=== PATIENT | male | born 1945 | race Caucasian/White ===

== ENCOUNTER 2023-07-13 11:40 | Outpatient (OUT) | payer MEDICARE, OTHER, SELFPAY ==
--- NOTE | 2023-07-13 11:59 | US_ITS ---
[facility] [place] [id number] Patient Name: YONI RAMIREZ MRN: [id number] date: 1945 Sex: M Assigned Patient Location: RAD Current Patient Location: [facility] Accession/Order Number: [id number] Exam Date: 07/13/2023 12:00 Report Date: 07/13/2023 14:14 At the request of: NURA CHAVEZ Procedure: US venous doppler LE RT EXAMINATION: US venous doppler LE RT HISTORY: Edema Of Right Lower Extremity R60.0 COMPARISON: No relevant comparison available. FINDINGS: REGION: Right lower extremity THROMBI: None. COMPRESSIBILITY: Normal compressibility of deep veins. FLOW: Normal waveform and antegrade flow between 5 and 20 cm/s. OTHER: Subcutaneous edema within the distal lower extremity. Partial compressibility of superficial small saphenous vein due to chronic thrombus and calcifications. US/US venous doppler LE RT IMPRESSION: 1. No deep vein thrombus within the right lower extremity. Electronically authenticated by: MIKE LYNCH Date: 07/13/2023 14:14
== END 2023-07-13 11:41 | disposition home or self-care (01) ==
LOC: RAD 11:47
PROVIDERS: PCP Internal Medicine; Visit Provider Internal Medicine
DX: R60.0 Localized edema (principal)
CPT/HCPCS: 93971

== ENCOUNTER 2023-07-23 09:35 | Outpatient (OUT) | payer MEDICARE, OTHER, SELFPAY ==
--- NOTE | 2023-07-23 10:38 | CA_ITS ---
Patient: YONI RAMIREZ Exam Date: 07/23/2023 : 1945 Gender:M Ordering : DR Bro Guardado D.O. Admission #: [id number] Family : Order #: [id number] CLICK HERE TO VIEW EXAM ECHOCARDIOGRAM REPORT PROCEDURE: CA ECHO DOPPLER COMPLETE INDICATIONS: Essential hypertension, Edema right lower leg COMPARISON: None. DESCRIPTION: COMPLETE ECHOCARDIOGRAM Real-time transthoracic echocardiography with 2D, M-mode, spectral and color flow Doppler performed. QUALITY: Technical quality was good. LEFT VENTRICLE: Normal chamber size. Borderline left ventricular hypertrophy. LV EF: Global left ventricular systolic function is normal. Calculated left ventricular ejection fraction is 58%. DIASTOLIC: Diastolic function is indeterminate. ATRIAL SEPTUM: Inadequately seen. LEFT ATRIUM: Severe dilatation. RIGHT ATRIUM: Mild dilatation. RIGHT VENTRICLE: Normal chamber size. Normal right ventricular systolic function. TRICUSPID VALVE: Normal mobility and thickness. No stenosis with trivial regurgitation. No evidence of pulmonary hypertension. RVSP 23mmHg MITRAL VALVE: Normal mobility and thickness. No mitral valve prolapse. No evidence of mitral valve stenosis. Mild mitral annular calcification. Mild mitral regurgitation. AORTIC VALVE: Normal trileaflet appearance. Mildly calcified aortic valve. Normal leaflet mobility. No evidence of aortic valve stenosis. Trivial aortic regurgitation. AORTIC ROOT: Normal diameter and appearance. PULMONIC VALVE: Normal thickness and mobility. No stenosis. Mild regurgitation. PERICARDIUM: No evidence of pericardial effusion. IVC: Collapses with inspirations. Normal size. CONCLUSION: 1. Global left ventricular systolic function is normal; visually estimated ejection fraction is 55 to 60% 2. Borderline increased left ventricular wall thickness 3. Biatrial enlargement 4. The right ventricle is normal in size and systolic function 5. Diastolic function is indeterminate 6. Mild mitral regurgitation 7. Mild pulmonic regurgitation Adult Echocardiography Procedure Report Left Ventricle LVEDD (3.7 - 5.6 cm): 5.28 cm LVESD (2.2 - 4.0 cm): 3.72 cm LVIVS thickness (0.6 - 1.2 cm): 0.98 cm LVPW thickness (0.5 - 1.0 cm): 1.03 cm e': 0.09 m/s E - e': 10.08 LVOT Max Gradient: 2.99 mm[Hg] LVOT Area (cm2): 0.86 m/s Peak Velocity (LVOT): 0.86 m/s Mean Velocity (LVOT): 0.58 m/s LVOT Diameter 2.39 cm Left Ventricular Ejection Fraction: 57.50 % Left Atrium LA Volume Index (2D A2C): 56.78 ml/m2 Left Atrium Systolic Dimension: 3.99 cm Mitral Valve MV E to A Ratio: 1.27 Mitral Valve A-Wave Peak Velocity: 0.73 m/s Mitral Valve E-Wave Peak Velocity: 0.93 m/s Right Ventricle RV Internal Diastolic Dimension: 3.51 cm Aorta AO Root Diam: 3.37 cm Ascending Ao Diam: 3.39 cm Aortic Valve AoV Area (Peak Wang): 2.51 cm2, 2.51 cm2 AoV Area (VTI): 2.70 cm2, 2.70 cm2 Peak Velocity(Antegrade Flow): 1.54 m/s Peak Gradient(Antegrade Flow): 9.48 mm[Hg] Mean Velocity(Antegrade Flow): 1.01 m/s Mean Gradient(Antegrade Flow): 4.66 mm[Hg] Velocity Time Integral: 38.94 cm Tricuspid Valve Peak Velocity (Regurgitant Flow): 2.02 m/s, 2.25 m/s, 1.90 m/s Pulmonic Valve Mean Gradient: 3.12 mm[Hg] Mean Velocity: 0.85 m/s Peak Velocity: 1.12 m/s, 0.97 m/s Peak Gradient: 3.75 mm[Hg], 5.03 mm[Hg] Right Atrium Right Atrium Systolic Pressure: 62.07 ml, 62.07 ml Dictated by: Librado Garzon M.D. on 07/23/2023 at 15:35 Approved by: Librado Garzon M.D. on 07/23/2023 at 15:39
== END 2023-07-23 09:36 | disposition home or self-care (01) ==
LOC: CARD 09:36
PROVIDERS: PCP Internal Medicine; Visit Provider Internal Medicine
DX: I10 Essential (primary) hypertension (principal); R60.0 Localized edema; I34.0 Nonrheumatic mitral (valve) insufficiency; I37.1 Nonrheumatic pulmonary valve insufficiency
CPT/HCPCS: 93306

== ENCOUNTER 2023-07-24 09:26 | Outpatient (OUT) | payer MEDICARE, OTHER, SELFPAY ==
[2023-07-24 09:42] LABS: Basophils Percent Auto 0.6 % (0.2-2.0); Eosinophils Absolute Auto 0.2 10^3/uL (0.0-0.7); Eosinophils Percent Auto 3.8 % (0.9-7.0); Hematocrit 39.2 % (42.0-54.0); Hemoglobin 12.7 g/dL (14.0-18.0); Immature Granulocytes Abs Auto 0.01 10^3/uL (0.00-0.03); Immature Granulocytes Pct Auto 0.2 % (0.0-0.5); Lymphocytes Percent Auto 20.7 % (20.5-60.0); Mean Corpuscular HGB Conc 32.4 g/dL (29.9-35.2); Mean Corpuscular Hemoglobin 29.5 pg (25.9-34.0); Mean Platelet Volume 10.7 fL (9.5-13.5); Monocytes Absolute Auto 0.5 10^3/uL (0.3-0.8); Monocytes Percent Auto 9.4 % (1.7-12.0); Neutrophils Absolute Auto 3.3 10^3/uL (1.4-6.5); Neutrophils Percent Auto 65.3 % (43.0-75.0); Platelet Count 174 10^3/uL (150-450); Red Blood Count 4.31 10^6/uL (4.70-6.10); Red Cell Distribution Width 17.8 % (11.0-15.0)
[2023-07-24 10:13] LABS: Alanine Aminotransferase 21 U/L (16-63); Albumin Level 3.5 g/dL (3.4-5.0); Alkaline Phosphatase 113 U/L (46-116); Anion Gap 6.2; Aspartate Amino Transferase 11 U/L (15-37); BUN Creatinine Ratio 21.2; Bilirubin Total 0.6 mg/dL (0.2-1.0); Carbon Dioxide 33.3 mmol/L (21.0-32.0); Chloride 105 mmol/L (98-107); Estimated GFR (African America >60 (>=60); Estimated GFR (Non-African Ame >60 (>=60); Globulin 3.5 g/dL; Glucose 140 mg/dL (74-106); Potassium 3.5 mmol/L (3.5-5.1); Sodium 141 mmol/L (136-145); Thyroid Stimulating Hormone 1.717 uIU/mL (0.358-3.740)
[2023-07-24 11:54] LABS: Creatinine Urine Random 50.63 mg/dL (20.00-300.00); Microalbum Creatinine Ratio Ur 25.6 mg/g (0.0-29.9); Microalbumin Urine Random <1.3 mg/dL (<=30.0)
== END 2023-07-24 09:27 | disposition home or self-care (01) ==
LOC: LAB 09:27
PROVIDERS: PCP Internal Medicine; Visit Provider Internal Medicine
DX: I10 Essential (primary) hypertension (principal); G31.84 Mild cognitive impairment of uncertain or unknown etiology; C61 Malignant neoplasm of prostate; R60.0 Localized edema; R04.0 Epistaxis; Z79.899 Other long term (current) drug therapy
CPT/HCPCS: 36415; 80053; 82043; 82570; 83880; 84443; 85025

== ENCOUNTER 2023-10-03 07:52 | Outpatient (OUT) | payer MEDICARE, OTHER, SELFPAY ==
[2023-10-03 08:58] LABS: Percent Iron Saturation 20.9 %
[2023-10-03 09:24] LABS: Basophils Percent Auto 0.7 % (0.2-2.0); Eosinophils Absolute Auto 0.1 10^3/uL (0.0-0.7); Eosinophils Percent Auto 2.6 % (0.9-7.0); Hematocrit 40.6 % (42.0-54.0); Hemoglobin 13.1 g/dL (14.0-18.0); Immature Granulocytes Abs Auto 0.01 10^3/uL (0.00-0.03); Immature Granulocytes Pct Auto 0.2 % (0.0-0.5); Lymphocytes Absolute Auto 1.1 10^3/uL (1.2-3.8); Lymphocytes Percent Auto 24.6 % (20.5-60.0); Mean Corpuscular HGB Conc 32.3 g/dL (29.9-35.2); Mean Corpuscular Hemoglobin 30.3 pg (25.9-34.0); Mean Platelet Volume 11.2 fL (9.5-13.5); Monocytes Absolute Auto 0.5 10^3/uL (0.3-0.8); Monocytes Percent Auto 11.3 % (1.7-12.0); Neutrophils Absolute Auto 2.6 10^3/uL (1.4-6.5); Neutrophils Percent Auto 60.6 % (43.0-75.0); Platelet Count 185 10^3/uL (150-450); Red Blood Count 4.32 10^6/uL (4.70-6.10); Red Cell Distribution Width 16.4 % (11.0-15.0); White Blood Count 4.3 10^3/uL (4.0-11.0)
== END 2023-10-03 07:53 | disposition home or self-care (01) ==
LOC: LAB 07:53
PROVIDERS: PCP Internal Medicine; Visit Provider Internal Medicine
DX: D64.9 Anemia, unspecified (principal)
CPT/HCPCS: 36415; 82607; 82728; 82746; 83540; 83550; 85025

== ENCOUNTER 2024-01-30 14:17 | Outpatient (OUT) | payer MEDICARE, OTHER, SELFPAY ==
[2024-01-30 14:49] LABS: Basophils Percent Auto 0.8 % (0.2-2.0); Eosinophils Absolute Auto 0.2 10^3/uL (0.0-0.7); Eosinophils Percent Auto 3.2 % (0.9-7.0); Immature Granulocytes Abs Auto 0.01 10^3/uL (0.00-0.03); Immature Granulocytes Pct Auto 0.2 % (0.0-0.5); Lymphocytes Absolute Auto 1.1 10^3/uL (1.2-3.8); Lymphocytes Percent Auto 21.7 % (20.5-60.0); Mean Corpuscular HGB Conc 32.5 g/dL (29.9-35.2); Mean Corpuscular Hemoglobin 30.2 pg (25.9-34.0); Mean Corpuscular Volume 92.8 fL (80.0-94.0); Monocytes Absolute Auto 0.6 10^3/uL (0.3-0.8); Monocytes Percent Auto 11.9 % (1.7-12.0); Neutrophils Absolute Auto 3.1 10^3/uL (1.4-6.5); Neutrophils Percent Auto 62.2 % (43.0-75.0); Platelet Count 190 10^3/uL (150-450); Red Blood Count 4.31 10^6/uL (4.70-6.10); Red Cell Distribution Width 16.1 % (11.0-15.0); White Blood Count 4.9 10^3/uL (4.0-11.0)
== END 2024-01-30 14:18 | disposition home or self-care (01) ==
LOC: LAB 14:18
PROVIDERS: PCP Internal Medicine; Visit Provider Internal Medicine
DX: D64.9 Anemia, unspecified (principal)
CPT/HCPCS: 36415; 82728; 85025

== ENCOUNTER 2024-06-27 10:40 | Observation (INO) | payer MEDICARE, OTHER, SELFPAY ==
[2024-06-27] VITALS (14 sets, daily range): BP systolic 161–185; BP diastolic 76–81; PULSE 55–63; TEMP 36.4–36.6; O2SAT 92–98; BMI 30.8; BMI 31.9
--- NOTE | 2024-06-27 10:48 | XR_ITS ---
The [address] [address] Patient Name: YONI RAMIREZ MRN: [id number] date: 1945 Sex: M Assigned Patient Location: ER Current Patient Location: ED.MAIN Accession/Order Number: [id number] Exam Date: 06/27/2024 10:58 Report Date: 06/27/2024 11:41 At the request of: LAMBERT DAVE Procedure: XR chest 1V CHEST X-RAY HISTORY: Chest pain COMPARISON: None. TECHNIQUE: 1 view chest is submitted for review. FINDINGS: The lungs are adequately expanded without evidence for acute infiltrate or effusion. The cardiac silhouette is enlarged. Pulmonary vascularity is mildly prominent. Osseous structures do not demonstrate any acute abnormality. . . XR/XR chest 1V IMPRESSION: Cardiomegaly. Electronically authenticated by: CHINMAY POWELL Date: 06/27/2024 11:41
--- NOTE | 2024-06-27 10:48 | ECG_ITS ---
[facility] Test Date: 2024-06-27 Pat Name: YONI RAMIREZ Department: Room: - Gender: Male Electric [employer]: : 1945 Requested By: NURA CHAVEZ Order Number: [id number] Reading MD: NURA CHAVEZ Measurements Intervals [place] Rate: 58 P: 90 [place]: 214 QRS: -51 QRSD: 164 T: 64 QT: 470 QTc: 467 Interpretive Statements 1100 Sinus rhythm 2231 First degree AV block 2450 Right bundle branch block 2630 Left anterior fascicular block 5234 Left ventricular hypertrophy with repolarization abnormality 9150 abnormal ECG Findings consistent w/ trifascicular block (RBBB, LAFB, first degree AV block) Electronically Signed On 06-27-2024 18:28:40 EDT by NURA CHAVEZ
--- OUTSIDE RECORDS SUMMARY | 2024-06-27 10:56 | XMS_ITS | CCD ---
Author Organization [facility]ini[facility] Care Team Providers Care Orthopedic Surgeon Name Role Phone BRO CHAVEZ Primary Care Physician Bro Chavez DO Primary Care Provider Bro Chavez DO Primary Care Provider Bro Chavez DO Primary Care Provider Fish WHARTON, Radha Carmen Unavailable Bro Chavez Unavailable KATHY, DR LYMAN Admitting Unavailable KATHY, DR LYMAN Attending Unavailable KATHY, DR LYMAN Primary Care Unavailable KATHY, DR LYMAN Consulting Unavailable LIZZIE, DR CASSIDY Etienne Consulting Unavailable KATHY, DR LYMAN Admitting Unavailable KATHY, DR LYMAN Attending Unavailable KATHY, DR LYMAN Primary Care Unavailable LUMelchor ., RADHA Carmen Admitting Unavailable LUE ., RADHA Carmen Attending Unavailable KATHY, DR LYMAN Primary Care Unavailable LIZZIE, DR CASSIDY Etienne Consulting Unavailable LUMelchor ., RADHA Carmen Consulting Unavailable LUE ., RADHA Carmen Admitting Unavailable LUE ., RADHA Carmen Attending Unavailable KATHY, DR LYMAN Primary Care Unavailable ZIPITER, DR MIKE Rankin Consulting Unavailable LUE ., RADHA Carmen Consulting Unavailable KATHY, DR LYMAN Admitting Unavailable KATHY, DR LYMAN Attending Unavailable KATHY, DR LYMAN Primary Care Unavailable KATHY, DR LYMAN Consulting Unavailable DONATO BISHOP Admitting Unavailable DONATO BISHOP Attending Unavailable BRO CHAVEZ Primary Care Unavailable VANDANA HERNANDEZ Referring Unavaila ble BRO CHAVEZ Primary Care Unavailable BRO CHAVEZ Primary Care Unavailable ROSY HIGH Attending Unavailable DEBBIE ANDRE Attending Unavailable Bro Chavez DO Primary Care Provider BRO CHAVEZ Referring Unavailable DONATO BISHOP Attending Unavailable BRO CHAVEZ Primary Care Unavailable Aaliyah HERNANDEZ Attending Unavailable BRO CHAVEZ Primary Care Unavailable KATHY, BRO Roche Primary Care Unavailable KATHY, BRO Roche Primary Care Unavailable Aaliyah HERNANDEZ Attending Unavailable BRO CHAVEZ Primary Care Unavailable DONATO BISHOP Referring Unavailable BRO CHAVEZ Primary Care Unavailable DONATO BISHOP Referring Unavailable BRO CHAVEZ Primary Care Unavailable Radha Whitten Attending Unavailable Radha Whitten Attending Unavailable Radha Whitten Attending Unavailable Radha Whitten Attending Unavailable Allergies Allergy Classification Reported Allergen(s) Allergy Type Date of Onset Reaction(s) Facility (14 sources) Ciprofloxacin Drug Allergy 8 Unknown [employer] Other (1 source) No Known Medication Allergies; Translations: [No Known Medication Allergies] Propensity to adverse reactions (disorder) [facility] Repository Medications Current Medications Medication Drug Class(es) Dates Sig (Normalized) Sig (Original) allopurinol 300 mg oral tablet (20 sources) Xanthine Oxidase Inhibitor Start: 03-09-2024 Allopurinol Active 0 .ROUTE .COMPLEX March 09, 2024 3:50pm TAKE 1 TABLET DAILY Start: 04-22-2019 End: 03-09-2024 take 1 tablet by mouth once daily allopurinol 300 mg Tab 300 mg = 1 tab(s), Oral, Daily, Refills(s) 0 Start Date: 04/22/19 Status: Ordered Comment on above: Take 300 mg by mouth once daily. amLODIPine 5 mg oral tablet (20 sources) Dihydropyridine Calcium Channel Rachid Start: 03-09-2024 Amlodipine Active 0 .ROUTE .COMPLEX March 09, 2024 3:50pm TAKE 1 TABLET DAILY Start: 02-11-2024 End: 03-09-2024 take 5 mg by mouth once daily Amlodipine Discontinued 5 MG PO Daily February 11, 2024 12:00am March 09, 2024 3:50pm Start: 04-22-2019 take 1 tablet by sylwia th twice daily amLODIPine 5 mg Tab 5 mg = 1 tab(s), Oral, BID, Refills(s) 0 Start Date: 04/22/19 Status: Ordered Start: 04-22-2019 take 1 tablet by sylwia th once daily amLODIPine 5 mg Tab 5 mg = 1 tab(s), Oral, Daily, Refills(s) 0 Start Date: 04/22/19 Status: Ordered Comment on above: Take by mouth once d aily. Take by mouth two ti mes a day. aspirin 81 mg delayed release oral tablet (20 sources) Platelet Aggregation Inhibitor, Nonsteroidal Anti-inflammatory Drug Start: 02-11-2024 take 81 mg by mouth once daily Aspirin Active 81 MG PO Daily February 11, 2024 12:00am Start: 03-28-2022 aspirin 81 mg Chew Tab mg tab(s), Chewed, Daily, Refills(s) 0 Start Date: 03/28/22 Status: Ordered take 1 tablet by sylwia th once daily Aspirin 81 81 MG 1 tablet Orally Once a day Active Comment on above: Take 81 mg by mouth once daily. atorvastatin 20 mg oral tablet (20 sources) HMG-CoA Reductase Inhibitor Start: 03-09-2024 Atorvastatin Active 0 .ROUTE .COMPLEX 90 March 09, 2024 3:50pm TAKE 1 TABLET DAILY IN THE EVENING Start: 10-21-2019 End: 03-09-2024 take 20 mg by mouth once daily atorvastatin 20 mg, Ora l, Daily, Refills(s) 0 Start Date: 10/21/19 Status: Ordered Comment on above: Take 20 mg by mouth once daily. carvedilol 6.25 mg oral tablet (20 sources) alpha-Adrenergic Rachid, beta-Adrenergic Rachid Start: 03-09-2024 Carvedilol Active 0 .ROUTE .COMPLEX 180 March 09, 2024 3:50pm TAKE 1 TABLET TWICE A DAY WITH FOOD Start: 02-11-2024 End: 03-09-2024 take 6.25 mg by mouth twice daily Carvedilol Discontinued 6.25 MG PO Twice daily February 11, 2024 12:00am March 09, 2024 3:50pm Start: 01-04-2022 carvedilol (CO REG) 12.5 mg tablet 6.25 mg twice daily with meals. 0 01/04/2022 Active Start: 01-04-2022 carvedilol (CO REG) 6.25 mg tablet Start: 04-22-2019 take 1 tablet by sylwia th twice daily carvedilol 12.5 mg Tab 12.5 mg = 1 tab(s), Oral, BID, Refills(s) 0 Start Date: 04/22/19 Status: Ordered Comment on above: twice daily with mary ls. 6.25 mg twice daily with meals. gemtesa 75 mg tablet (4 sources) take 1 tablet by mouth every twenty-four hours Gemtesa 75 MG 1 tablet Orally Once a day for 90 days Active GEMTESA 75 mg tablet (6 sources) Start: 11-12-19 GEMTESA 75 mg tablet hydroCHLOROthiazide 25 mg / lisinopril 20 mg oral tablet (20 sources) Thiazide Diuretic, Angiotensin Converting Enzyme Inhibitor Start: 03-09-20 End: 03-11-20 Lisinopril-Hydr ochlorothiazide Active 0 .ROUTE .COMPLEX March 11, 2024 1:10pm TAKE 1 TABLET ONCE DAILY Start: 09-27-2021 End: 03-09-2024 take 1 tablet by mouth once daily hydrochlorothiazide-lisinopril 25 mg-20 mg Tab tab(s), Oral, Daily, Refill(s) 0 Start Date: 09/27/21 Status: Ordered Comment on above: Take 1 tablet by sylwia th once daily. ketoconazole 20 mg/ml topical cream (17 sources) Azole Antifungal Start: 06-29-2021 ketoconazole (NIZORAL) 2 % cream Apply to affected area twice daily. 30 g 1 06/29/2021 Active Comment on above: Apply to affected ar ea twice daily. lisinopril 10 mg oral tablet (20 sources) Angiotensin Converting Enzyme Inhibitor Start: 03-09-2024 Lisinopril Active 0 .ROUTE .COMPLEX March 09, 2024 3:50pm TAKE 1 TABLET DAILY - TAKE ALONG WITH LISINOPRIL/HCTZ Start: 03-28-2022 End: 03-09-2024 take 10 mg by mouth once daily Lisinopril Discontinued 10 MG PO Daily February 11, 2024 12:00am March 09, 2024 3:50pm along with Lisinopril/HCTZ Start: 03-28-2022 lisinopril (ZE STRIL) 10 mg tablet q 24 HR. 0 03/28/2022 Active Comment on above: Take 10 mg by mouth once daily. q 24 HR. 24 hr mirabegron 25 mg extended release oral tablet (1 source) beta3-Adrenergic Agonist Start: take 1 tablet by mouth once daily Myrbetriq 25 mg oral tablet, extended release 25 mg = 1 tab(s), Oral, Daily, # 30 tab(s), Refills(s) 11, Pharmacy: [facility] [id number], 177, cm, 11/08/22 11:01:00 EST, Height/Length Dosing, 114, kg, 11/08/22 11:00:00 EST, Weight Dosing Start Date: 11/08/22 Status: Ordered mupirocin 0.02 mg/mg topical ointment (20 sources) RNA Synthetase Inhibitor Antibacterial Start: End: Mupirocin Active 1 APPLIC TOPICAL Twice daily December 12, 2023 7:21pm Start: 07-13-2023 Mupirocin 2 % 1 application Nasal septum Twice a day for 10 days Jun, Active paxlovid (300/100) 20 x 150 mg & 10 x 100mg tablet therapy pack (6 sources) Start: 08-22-2023 take 3 tablets by mouth every twelve hours Paxlovid (300/100) 20 x 150 MG & 10 x 100MG 3 tablets Orally twice a day for 5 days Aug, Active predniSONE 20 mg oral tablet (20 sources) Start: 02-05-2023 take 1 tablet by mouth twice daily predniSONE 20 MG 1 tablet Orally twice daily w/ food for 5 days Jan, Active triamcinolone acetonide 1 mg/ml topical cream (20 sources) Corticosteroid Start: 07-13-2023 Triamcinolone Acetonide 0.1 % 1 application Externally bid for 10 days Jun, Active Start: 07-13-2023 Triamcinolone Acetonide 0.1 % 1 application Externally bid for 10 days Jun, Active Start: 07-13-2023 Kenalog-40 Jun, 60 mg Triamcinolone Ac etonide 0.5 % 1 application Externally Twice a day Active Vibegron (2 sources) Start: 02-11-2024 take 75 mg by mouth once daily Vibegron Active 75 MG PO Daily February 11, 2024 12:00am vibegron 75 MG Oral Tablet [Gemtesa] (2 sources) Start: 08-15-2023 take 1 tablet by mouth once daily Gemtesa 75 mg oral tablet 75 mg = 1 tab(s), Oral, Daily, # 30 tab(s), Refills(s) 11, Pharmacy: [facility] [id number], 177, cm, 08/15/23 8:49:00 EDT, Height/Length Dosing, 99, kg, 08/15/23 8:49:00 EDT, Weight Dosing Start Date: 08/15/23 Status: Ordered zolpidem tartrate 5 mg oral tablet (9 sources) gamma-Aminobutyr ic Acid-ergic Agonist Start: 04-19-2021 take 1 mg by mouth once daily at bedtime zolpidem 5 mg Tab mg tab(s), Oral, Once a day (at bedtime), Refills(s) 0 Start Date: 04/19/21 Status: Ordered {20 (nirmatrelvir 150 MG Oral Tablet) / 10 (ritonavir 100 MG Oral Tablet) } Pack [Paxlovid 5-Day] (1 source) Start: 08-22-2023 take 3 tablets by mouth every twelve hours Paxlovid (300/100) 20 x 150 MG & 10 x 100MG 3 tablets Orally twice a day for 5 days Aug, Active Completed/Discontinued Medications Medication Drug Class(es) Dates Sig (Normalized) Sig (Original) acetaminophen 325 mg oral tablet (6 sources) Start: 03-02-2023 End: 04-07-2024 take 2 tablets by mouth every six hours as needed acetaminophen (TYLENOL) 325 mg tablet Take 2 tablets by mouth every 6 hours as needed for pain. 0 03/02/2023 04/07/2024 Discontinued Comment on above: Take [address] [facility] every 6 hours as needed for pain. cefdinir 300 mg oral capsule (2 sources) Cephalosporin Antibacterial Start: 03-20-2023 End: 11-20-2023 take 1 capsule by mouth twice daily cefdinir (OMNICEF) 300 mg capsule Take 1 capsule by mouth twice daily. 10 capsule 0 03/20/2023 11/20/2023 Discontinued (Course of therapy completed) Comment on above: Take 1 capsule by [facility] twice daily. iv contrast (will be provided with radiology test) (1 source) Start: 11-09-2022 End: 11-10-2022 iv contrast (will be provided with radiology test) MRI ABD/PEL Inject, intravenously, once for 1 dose. No IV access, insert saline lock prior to the beginning of sedation, infusion, injection of imaging exam. Discontinue saline lock post exam. If Pt. has a central line or IVAD, may access for administration according to line specific nursing protocol. Once exam is complete flush line and de-access according to line specific nursing protocol in the MR contrast administration guidelines link. 1 Each 0 11/09/2022 11/10/2022 Comment on above: MRI ABD/PEL Inject, intravenously, once for 1 dose. No IV access, insert saline lock prior to the beginning of sedation, infusion, injection of imaging exam. Discontinue saline lock post exam. If Pt. has a central line or IVAD, may access for administration according to line specific nursing protocol. Once exam is complete flush line and de-access according to line specific nursing protocol in the MR contrast administration guidelines link. lactobacillus rhamnosus gg [id number] unt oral capsule (2 sources) Start: 03-02-2023 End: 11-20-2023 take 1 capsule by mouth once daily lactobacillus rhamnosus (CULTURELLE) 10 billion cell capsule Take 1 capsule by mouth once daily. 14 capsule 0 03/02/2023 11/20/2023 Discontinued (Discontinued by Patient) Comment on above: Take 1 capsule by mo ut once daily. 1.5 ml leuprolide acetate 30 mg/ml prefilled syringe (10 sources) Gonadotropin Releasing Hormone Receptor Agonist End: 02-14-2023 leuprolide, 6 month, (LUPRON DEPOT, 6 MONTH,) sykt IM syringe kit Inject intramuscularly as directed. 0 02/14/2023 Discontinued (Course of therapy completed) leuprolide, 6 mo nth, (LUPRON DEPOT, 6 MONTH,) sykt IM syringe kit Inject 45 mg intramuscularly as directed. 0 Active Comment on above: Inject 45 mg intramu scularly as directed. Inject intramuscular ly as directed. melatonin 3 mg oral tablet (3 sources) End: 11-20-19 take 1 tablet by mouth once daily at bedtime melatonin 3 mg tablet Take 3 mg by mouth daily at bedtime. 0 11/20/2023 Discontinued (Discontinued by Patient) Comment on above: Take 3 mg by mouth d aily at bedtime. Problems Active Problems Problem Classification Problem Date Documented Da te Episodic/Chronic Abdominal hernia (20 sources) Inguinal hernia; Translations: [Unilateral inguinal hernia, without obstruction or gangrene, not specified as recurrent] Onset: 11-08-2022 Resolved: 03-02-2023 Episodic Calculus of urinary tract (20 sources) History of calculus of kidney; Translations: [Personal history of urinary calculi] Onset: 03-28-2022 Episodic Cancer of prostate (20 sources) Malignant tumor of prostate; Translations: [Malignant neoplasm of prostate] Onset: 12-04-2022 Chronic Cancer of prostate (20 sources) Personal history of malignant neoplasm of prostate; Translations: [History of malignant neoplasm of prostate] Onset: 03-28-2022 Episodic Deficiency and other anemia (3 sources) Anemia, unspecified; Translations: [Anemia, unspecified] Episodic Deficiency and other anemia (2 sources) Anemia; Translations: [Anemia, unspecified] 01-29-2024 Episodic Delirium, dementia, and amnestic and other cognitive disorders (2 sources) Delirium due to known physiological condition Chronic Disorders of lipid metabolism (20 sources) Pure hypercholesterolemia ; Translations: [Familial hypercholesterolemia ] Chronic Essential hypertension (20 sources) Hypertensive disorder; Translations: [Essential hypertension] Onset: 02-14-2023 04-22-2019 Chronic Genitourinary symptoms and ill-defined conditions (20 sources) Mixed incontinence; Translations: [Incontinence] Onset: 03-28-2022 Chronic Genitourinary symptoms and ill-defined conditions (20 sources) Increased frequency of urination; Translations: [Urgent desire to urinate] 10-05-2020 Episodic Gout and other crystal arthropathies (20 sources) Gout; Translations: [Primary gout] Onset: 02-14-2023 04-22-2019 Chronic Headache; including migraine (20 sources) Muscular headache ; Translations: [Tension-type headache, unspecified, not intractable] Chronic Hyperplasia of prostate (12 sources) Benign prostatic hypertrophy with outflow obstruction 08-24-2020 Chronic Miscellaneous mental health disorders (20 sources) Primary insomnia; Translations: [Primary insomnia] Chronic Osteoarthritis (20 sources) Arthritis; Translations: [Osteoarthritis of right knee joint] 04-22-2019 Chronic Other aftercare (2 sources) Other [facility] (current) drug therapy Episodic Other and unspecified benign neoplasm (2 sources) Lipoma of spermatic cord; 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] Onset: 10-04-2022 Episodic Other diseases of kidney and ureters (12 sources) Cyst of kidney 09-14-2020 Episodic Other diseases of kidney and ureters (1 source) Urinary tract obstruction; Translations: [Other obstructive and reflux uropathy] Onset: 11-08-2022 Episodic Other diseases of veins and lymphatics (15 sources) Varicocele; Translations: [Scrotal varices] Onset: 10-04-2022 Episodic Other gastrointestinal disorders (4 sources) Swollen abdomen; Translations: [Other intra-abdominal and pelvic swelling, mass and lump] Onset: 11-08-2022 Episodic Other gastrointestinal disorders (10 sources) Groin mass 11-08-2022 Episodic Other gastrointestinal disorders (2 sources) Mass of left lower quadrant of abdomen; Translations: [Left lower quadrant abdominal swelling, mass and lump] Episodic Other gastrointestinal disorders (2 sources) Left lower quadrant abdominal swelling, mass and lump; Translations: [Left lower quadrant abdominal swelling, mass and lump] Onset: 12-04-2022 Episodic Other gastrointestinal disorders (2 sources) Personal history of other diseases of the digestive system Episodic Other hereditary and degenerative nervous system conditions (17 sources) Impaired cognition; Translations: [Mild cognitive impairment, so stated] 02-12-2024 Chronic Other hereditary and degenerative nervous system conditions (5 sources) Mild cognitive impairment, so stated; Translations: [Mild cognitive impairment, so stated] Chronic Other inflammatory condition of skin (2 sources) Pruritus, unspecified Episodic Other male genital disorders (20 sources) Scrotal mass; Translations: [Other specified disorders of the male genital organs] Episodic Other male genital disorders (5 sources) Other specified disorders of the male genital organs; Translations: [OTHER SPEC D/O MALE GENITAL ORGANS] Onset: 11-06-2022 Episodic Other non-traumatic joint disorders (20 sources) Arthralgia of the pelvic region and thigh; Translations: [Pain in left hip] Episodic Other non-traumatic joint disorders (2 sources) Effusion, right knee Episodic Other non-traumatic joint disorders (6 sources) Pain in right knee; Translations: [PAIN IN RIGHT KNEE] Onset: 02-21-2023 Episodic Other nutritional; endocrine; and metabolic disorders (1 source) Obese class II; Translations: [Body mass index (BMI) 36.0-36.9, adult] Onset: 11-08-2022 Chronic Other nutritional; endocrine; and metabolic disorders (20 sources) Body mass index 30+ - obesity; Translations: [Obesity, unspecified] 11-08-2022 Chronic Other nutritional; endocrine; and metabolic disorders (3 sources) Obesity, unspecified; Translations: [Obesity, unspecified] Chronic Other nutritional; endocrine; and metabolic disorders (9 sources) Obese class I; Translations: [Obesity, unspecified] Onset: 02-11-2023 Chronic Other nutritional; endocrine; and metabolic disorders (7 sources) Severe obesity; Translations: [Morbid (severe) obesity due to excess calories] Onset: 03-26-2023 03-26-2023 Chronic Other nutritional; endocrine; and metabolic disorders (1 source) Obesity; Translations: [Obesity, unspecified] 02-12-2024 Chronic Other screening for suspected conditions (not mental disorders or infectious disease) (12 sources) Raised prostate specific antigen 10-21-2020 Episodic Other upper respiratory disease (1 source) Seasonal allergic rhinitis; Translations: [Other seasonal allergic rhinitis] 04-09-2024 Chronic Other upper respiratory disease (2 sources) Epistaxis Episodic Residual codes; unclassified (20 sources) Obstructive sleep apnea syndrome; Translations: [Obstructive sleep apnea (adult) (pediatric)] Onset: 02-14-2023 Chronic Residual codes; unclassified (10 sources) Obstructive sleep apnea (adult) (pediatric); Translations: [Obstructive sleep apnea (adult)(pediatric)] Chronic Residual codes; unclassified (2 sources) Other specified postprocedural states Episodic Residual codes; unclassified (2 sources) Localized edema Episodic Residual codes; unclassified (1 source) History of hernia repair; Translations: [Other specified postprocedural states] 04-01-2024 Episodic Sprains and strains (1 source) Strain of unspecified muscle(s) and tendon(s) at lower leg level, right leg, initial encounter Episodic Transient cerebral ischemia (20 sources) Amaurosis fugax of right eye; Translations: [Amaurosis fugax] 02-10-2024 Chronic Past or Other Problems Problem Classification Problem Date Documented Date Episodic/Chronic Fluid and electrolyte disorders (5 sources) Hypokalemia; Translations: [Hypokalemia] Onset: 02-26-2023 Resolved: 03-02-2023 03-02-2023 Episodic Other diseases of veins and lymphatics (1 source) Scrotal varices; Translations: [SCROTAL VARICES] Onset: 10-14-2022 Episodic Other nervous system disorders (5 sources) Postoperative pain ; Translations: [Other acute postprocedural pain] Onset: 02-26-2023 Resolved: 03-02-2023 03-02-2023 Episodic Other nutritional; endocrine; and metabolic disorders (5 sources) Hypophosphatemia; Translations: [Other disorders of phosphorus metabolism] Onset: 02-26-2023 Resolved: 03-02-2023 03-02-2023 Chronic Viral infection (2 sources) COVID-19 Results Test Name Value Interpretation Reference Range Facility Urology Office/Clinic Noteon 06-04-2024 Urology Office/Clinic Note Urology Office/Clinic Note Chief Complaint Patient in office for 6 month f/u. HPI Staff Patient in office for 6 month follow up. Previous DX; mixed incontinence, personal hx of prostate cancer, hernia, inguinal mass & varicocele *Gemtesa 75mg qd therapy. PSA 05/08/23- <0.02 11/13/23 - <0.02 Patient could not provide a urine sample in office today. States things have been the same over the past several months. States he walks 2 miles a day and by the end of the walk his pad is wet, states he does not feel the wetness while walking, only once the walk is done. States he is wearing a pad and depends every day and has to change roughly 2 x a day. States he is still taking the Gemtesa as prescribed but is wanting to stop the medication as he does not feel it is helping him and the cost is around $239 a month. States he saw his PCP Dr. Chavez who states he is borderline anemic at this time. History of Present Illness Tests reviewed: reviewed UA I have reviewed the previous health record information and history for this patient from Dr. Whitten. I have reviewed and verified the staff HPI to be accurate for this encounter. Review of Systems PHQ Score Initial Depression Screen Score: 0 SCORE ROS - Provider Constitutional: denies weight loss, denies hot flashes. Eyes: denies eye problems. Gastrointestinal: denies nausea, denies vomiting. Cardiovascular: denies chest pain or angina. Integumentary: no dryness Musculoskeletal: denies musculoskeletal symptoms. ENMT: denies otolaryngeal symptoms. Respiratory: no shortness of breath. Heme/Lymph: denies easy bleeding tendency, denies easy bruising tendency. Psychiatric: no confusion, no anxiety. Genitourinary: See HPI. Physical Exam Vitals & Measurements HR: 56(Peripheral) BP: 142/78 HT: 70 in HT: 177 cm WT: 99 kg WT: 217.8 lb BMI: 31.6 General Appearance: alert, no distress, well nourished, well developed male. Assessment/Plan 78-year-old male prior Dr. Freedman patient with mixed urinary incontinence s/p RALP, EBRT presents for follow-up. LEESA 1 (3). Present with . 1. Mixed incontinence (N39.46: Mixed incontinence) PVR (cc): 11/28/23 - Complete 6 session of PFPT w/ FERNANDO, and then did 4 weeks of PFPT at home. Improvement reported during notes however patient declines current improvement. [1] Rx'd Myrbetriq 25mg qd in the past but was too expensive. Did not recall getting different Rx of Trospium 20mg qhs. Green clamp did not work/did not want to use. Previously discussed further w/u with cysto/uros but pt declined. [2] Pt unable to provide urine sample today. IPSS 13 (12). RESHMA > UUI. Has not noticed improvement with Gemtesa and paying $240 per month. Still leaking. Pad full. Leaks without sensory awareness. Does not recall if leakage started/worsened after surgery or radiation. Pt would like to d/c Gemtesa due to these factors. Again clarified the difference between tx options for RESHMA and UUI. Pt is not desirous of surgery however discussed how PFPT and surgery are treatments for RESHMA. Originally, Gemetsa improved his nighttime leakage and now he is leaking at night again. Regarding RESHMA: Re-discussed options of male sling and AUS. Risks/benefits/success rates discussed. Advised pt elevated risk of complications due to history of radiation, such as cuff erosion, continued leakage and need for revision surgeries in the future. Would refer to tertiary center given his complex surgical history. Pt wishes to think about options prior to electing referral. Pt elects 6 mos f/u. Follow up 6 mos or sooner if needed. Pt understands and agrees with plan. -Stop Gemtesa. -Pt to call if he would like referral to tertiary center for consideration of AUS. 2. 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 Underwent salvage radiation for rising PSA PSA: 05/08/23 - <0.02 11/13/23 - <0.02 Pt continues following with Dr. Hernandez who monitors PSA. -Cont f/u with Dr. Hernandez regarding prostate ca management. Follow-up With When Contact Information Fish WHARTON, Radha Tejada, URL, URO Additional Instructions: 6 mos Patient Education Artificial Urinary Sphincter Placement I, Belkys Figueroa, personally scribed for Dr. Whitten on 06/04/2024 09:22:59. . Documentation recorded by the scribe, Belkys Figueroa, accurately reflects the services(s) I performed and decisions made by me. Authenticated by Dr. Whitten on 06/04/2024 10:14:04. Problem List/Past Medical History Ongoing Arthritis BMI 36.0-36.9,adult BPH with urinary obstruction Gout Hernia, inguinal History of kidney stones Hypertension Inguinal mass Kidney stone Ma (more content not included)... Normal [facility] Comment on above: Result Comment: Elec tronically Signed By: Radha Whitten MD\.br\Date and Time Signed: 06/04/24 10:14 EDT\.br\Electronically Co-Signed By: Belkys Figueroa\.br\Date and Time Co-Signed: 06/04/24 09:23 EDT CNOVtimmy 05-20-2024 CNOV Office Visit ([facility] ) YONI RAMIREZ ([id number]) 1945 M Date Time Provider Department 05/20/24 1:15 PM Aaliyah HERNANDEZ During your visit today, we recorded the following information about you: Temperature Pulse Respiration Blood pressure 98.4 degrees 59/minute 18/minute 147/80 Weight 101 kg Aaliyah Hernandez MD 05/23/2024 10:46 AM Signed Radiation Oncology - Follow Up Note PATIENT NAME: Yoni Ramirez PATIENT DIAGNOSIS: Prostate adenocarcinoma, 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 INTERVAL HISTORY: Patient states he is doing fairly well. No significant new problems or concerns. He does have continued incontinence wearing pad x 2 daily stable. No hematuria. 05/15/23:He did undergo abdominal surgery in February with removal of previous implanted mesh and exploratory laparotomy and implantation of mesh for repair of femoral hernia with 2 contrast large femoral hernia with defect and containing large bowel. No evidence of malignancy and resected tissue. He has done very well subsequently. Denies of any problems. 12/12/22:Patient here for further follow-up regarding palpable lump left scrotal area. Patient had seen Dr. Whitten. Seeing patient shortly after this for routine follow-up recommended further imaging with MRI as patient was unclear what he wanted to do. Denies any new problems. MRI Pelvis 12/04/22: 1. No enhancing scrotal lesions. 2. 3.2 x 1.8 x 3.5 cm fatty lesion seen in the left scrotal sac laterally. Could reflect area of fat necrosis or spermatic cord lipoma. Could correlate with lesion seen on prior ultrasound. Recommend continued ultrasound follow-up to document stability. 3. Large inguinal hernias bilaterally, left greater than right with fat extending into the scrotum. Left hernia contains a loop of colon He underwent ultrasound 08/05/2022 with small left hydrocele no other significant finding. He underwent repeat ultrasound on 10/11/2022 with the finding of a solid vascular appearing mass in the left hemiscrotum measuring 2.6 x 2.9 x 1.6 cm. This is noted to be separate from the testicle. Small varicocele no hydrocele on the left. Further work-up including CT chest abdomen and pelvis on 11/06/2022 demonstrating: No suspicious chest findings. Nonobstructing left nephrolithiasis. Large left inguinal hernia with fat extending into the scrotum and along with the sigmoid colon extending to near the level of the scrotum, 3 cm area of density within the inguinal hernia suspicious for acute diverticulitis. This could also represent scarring from prior hernia repair. Large fat filled right inguinal hernia without strangulation or bowel involvement. No suspicious bony changes. Patient has seen Dr. Whitten the other day and underwent laboratory evaluation without remarkable findings. He is here today for routine follow-up. 07/13/22: Doing well. Is more active. Walking 1 to 2 miles daily starting to lose weight as a result. Feeling better. 03/30/22:Overall doing well. Still having urinary incontinence though mostly with increased activity. Having some intermittent diarrhea but mostly increased frequency and looser stools without blood or other issues. 12/21/21:Doing well. Overall urinary function has improved. Less incontinence. Incontinence he is having is mostly stress related. Recent colonoscopy without significant findings. 08/10/21:Doing well. Significant improvement in bladder and bowel frequency. Still with moderate fatigue. PSA HISTORY: PSA (ng/mL) Date Value 05/13/2024 <0.02 11/13/2023 <0.02 05/08/2023 <0.02 11/02/2022 <0.02 09/15/2021 <0.1 08/03/2021 <0.03 Initial post prostatectomy PSA 0.23 on 07/17/2018. Patient's PSA continued to rise: 0.48 on 04/22/2019 0.87 on 09/29/2019 1.43 on 03/19/2020 1.62 on 07/19/2020 2.05 on 09/27/2020 ALLERGIES No Known Allergies GEMTESA 75 mg tablet lisinopril (ZESTRIL) 10 mg tablet q 24 HR. carvedilol (COREG) 12.5 mg tablet 6.25 mg twice daily with meals. aspirin, enteric coated (ASPIRIN, ENTERIC COATED) 81 mg EC tablet Take 81 mg by mouth once daily. ketoconazole (NIZORAL) 2 % cream Apply to affected area twice daily. (Patient taking differently: Apply to affected area two times a day. As needed) amLODIPine (NORVASC) 5 mg tablet Take by mouth two times a day. lisinop (more content not included)... Normal [facility] PSA SerPl-ncon 05-13-2024 Prostate specific Ag [Mass/Vol] ng/mL Normal <2.60 [facility] Comment on above: Order Comment: Speci men Type: BLOOD SPECIMEN Ordering Facility: [facility] Address: [address] [place] [address] Result Comment: Tota l PSA test methodology used is the Electrochemiluminescence Immunoassay by [employer]. Total PSA values by differing methodologies cannot be interchanged. Performed By: #### 2 857-1 #### [facility] CLIA [id number] [address] [place] [address] [place] CNOVon 04-01-2024 [facility] Office Visit ([facility] ) YONI RAMIREZ ([id number]) 1945 M Date Time Provider Department 04/01/24 10:00 AM DONATO BISHOP [facility] During your visit today, we recorded the following information about you: Temperature Pulse Blood pressure 97 degrees 58/minute 162/67 Donato Bishop MD 04/07/2024 4:41 PM Signed [facility] Abdominal Core Health - Follow Up Visit Assessment/Plan: Yoni Ramirez is a 78 year old male s/p open left anterior groin mesh removal (plug and patch) and abdominal wall reconstruction with bilateral transversus abdominus release and 30 x 30 cm retrorectus Prolene mesh on 02/23/23 for a large recurrent left inguinal hernia, reducible right inguinal hernia, and incarcerated epigastric hernia. He was seen postoperatively 03/20/2023 and was recovering well. His hospital course was complicated by significant postoperative delirium. He is here today for a one year follow up. He looks and feels well with no evidence of recurrence on exam. CT images reviewed - repair intact with no evidence of recurrence. - 1 year follow up (no need for CT unless there is clinical concern) Subjective: Feeling great. No pain or activity restrictions. No issues with bowel function. Continues to have difficulty with urinary incontinence - longstanding issue for him Still can't remember the first week after surgery. Objective: No bulge in either groin or along the midline. Midline incision well-healed. Some fungal irritation in lower abdominal skin fold, right worse than left. Donato Bishop MD 04/01/24, 10:35 AM General Surgery [facility] Medical Decision Making: Problems: Low: Stable chronic illness Data: Unique test result(s) reviewed: 1 Independent interpretation of test from other physician/QHCP Risk: Low: Low risk from testing/treatment Medical Decision Making Level: 3 - Low Kristy Monreal OCCA 04/01/2024 10:05 AM Signed What is the reason for your visit today? s/p open left anterior groin mesh removal (plug and patch) and abdominal wall reconstruction with bilateral transversus abdominus release and 30 x 30 cm retrorectus Prolene mesh on 02/23/23 for a large recurrent left inguinal hernia, reducible right inguinal hernia, and incarcerated epigastric hernia. Who is your referring physician? Are you having poor oral intake? NO Have you had unintentional weight loss of 15 lbs/7 Kg in the last 3-6 months? NO Bowels: regular Wound: Temperature: No Drains: No Referring Provider: BRO CHAVEZ [[id number]] Allergies As of Date: 04/01/2024 (No Known Allergies) Date Reviewed: 04/01/2024 Reviewed by: Kristy Monreal OCCA - Fully Assessed Reason for Visit: Follow Up [171] Cmt: 1 year Primary Visit Diagnosis:S/P repair of ventral hernia [Z98.890, Z87.19] Prescriptions as of 04/07/2024 - GEMTESA 75 mg tablet - lisinopril (ZESTRIL) 10 mg tablet q 24 HR. - carvedilol (COREG) 12.5 mg tablet 6.25 mg twice daily with meals. - aspirin, enteric coated (ASPIRIN, ENTERIC COATED) 81 mg EC tablet Take 81 mg by mouth once daily. - ketoconazole (NIZORAL) 2 % cream Apply to affected area twice daily. - amLODIPine (NORVASC) 5 mg tablet Take by mouth two times a day. - lisinopril-hydroCHLOROthiazi de (PRINZIDE, ZESTORETIC) 20-25 mg per tablet Take 1 tablet by mouth once daily. - atorvastatin (LIPITOR) 20 mg tablet Take 20 mg by mouth once daily. - allopurinol (ZYLOPRIM) 300 mg tablet Take 300 mg by mouth once daily. Problem List As Of Date 04/01/2024 Noted Resolved Obesity, Class I, BMI 30-34.9 [E66.9] 02/11/2023 Obstructive sleep apnea syndrome [G47.33] 02/14/2023 Primary hypertension [I10] 02/14/2023 Prostate cancer (HCC) [C61] 02/14/2023 Gout [M10.9] 02/14/2023 Inguinal hernia of left side without obstructio*02/24/2023 03/02/2023 Hypophosphataemia [E83.39] 02/26/2023 03/02/2023 Hypokalemia [E87.6] 02/26/2023 03/02/2023 Post-op pain [G89.18] 02/26/2023 03/02/2023 Class 3 severe obesity due to excess calories w*03/26/2023 Visit Notes: >> Kristy Monreal OCCA [place] Apr 01, 2024 10:03 AM Status: Signed What is the reason for your visit today? s/p open left anterior groin mesh removal (plug and patch) and abdominal wall reconstruction with bilateral transversus abdominus release and 30 x 30 cm retrorectus Prolene mesh on 02/23/23 for a large recurrent left inguinal hernia, reducible right inguinal hernia, and incarcerated epigastric hernia. Who is your referring physician? Are you having poor oral intake? NO Have you had unintentional weight loss of 15 lbs/7 Kg in the last 3-6 months? NO Bowels: regular Wound: Temperature: No Drains: No Medications Discontinued During This Encounter Prescriptions - acetaminophen (TYLENOL) 325 mg tablet (Discontinued) Take 2 tablets by mouth every 6 hours as needed for pain. (more content not included)... Normal [facility] CT ABD/PEL WO IVCONon 2023 CT ABD/PEL WO IVCON * * *Final Report* * * DATE OF EXAM: Apr 01 2024 1:54PM [facility] - [facility] ABD/PEL WO IVCON / PROCEDURE REASON: Ventral incisional hernia * * * * Physician Interpretation * * * * EXAMINATION: CT ABDOMEN AND PELVIS WITHOUT IV CONTRAST CLINICAL HISTORY: History of abdominal wall reconstruction. TECHNIQUE: Non-IV contrast imaging of the abdomen and pelvis was performed using standard technique, scanning from just above the dome of the diaphragm to the symphysis pubis. Unenhanced imaging is limited for the evaluation of some intra-abdominal and pelvic pathology. MQ: CTAPWO_3 Contrast: IV: None Oral: None CT Radiation dose: Integrated Dose-length product (DLP) for this visit = 1118 mGy*cm. CT Dose Reduction Employed: mAs-kVp adjusted based on patient size-age COMPARISON: Outside CT performed 11/06/2022 RESULT: Abdomen / Pelvis: Liver: The liver has an unremarkable noncontrast appearance. Biliary: The gallbladder is unremarkable. No biliary ductal dilation is seen. Spleen: Punctate calcifications are seen within the spleen, in keeping with prior granulomatous disease. The spleen is not enlarged. Pancreas: Unremarkable. Adrenals: No mass. Kidneys: Nonobstructing calculi measuring up to 3 mm are noted in both kidneys. Bilateral renal cysts are also noted. No gross solid renal mass is seen. No hydronephrosis is seen in either kidney. GI Tract: The stomach and small bowel are unremarkable. There is no evidence of small bowel obstruction or wall thickening. There is pancolonic diverticulosis without evidence of diverticulitis. The colon is otherwise unremarkable. Lymph Nodes: No lymphadenopathy. Mesentery/peritoneum: No ascites. Retroperitoneum: No mass. Vasculature: Arterial atherosclerotic disease without aneurysm. Pelvis: No mass or ascites. Bones/Soft Tissues: Multilevel degenerative changes noted in the lumbar spine. No destructive osseous lesions are seen. Postsurgical changes are noted in the anterior abdominal wall. There is no evidence of residual or recurrent hernia. Bilateral inguinal herniorrhaphies are also noted. No recurrent hernia is visualized. Superficial soft tissues are otherwise unremarkable. Lower thorax: Left basal atelectasis is noted. A granuloma is seen in the right lower lobe. Localizer images: No additional findings. IMPRESSION: 1. Postsurgical changes as described above, without evidence of residual or recurrent hernia. 2. Bilateral nonobstructive nephrolithiasis. Coat Ironer Hand: ROSANA Transcribe Date/Time: Apr 02 2024 9:22A Dictated by : LANCE CUNHA MD This examination was interpreted and the report reviewed and electronically signed by: LANCE CUNHA MD on Apr 02 2024 9:31AM EST [id number] Normal [facility] Basophils Auto (Bld) [#/Vol] on 01-30-2024 Basophils (Bld) [#/Vol] 0.0 10 3/uL 0.0-0.1 [facility] Basophils/100 WBC Auto (Bld) on 01-30-2024 Basophils/100 WBC (Bld) 0.8 % 0.2-2.0 [facility] Eosinophils/100 WBC Auto (Bl d)on 01-30-2024 Eosinophils/100 WBC (Bld) 3.2 % 0.9-7.0 [facility] Erythrocyte distribution wid th Auto (RBC) [Ratio]on 01-30-2024 Erythrocyte distribution width (RBC) [Ratio] 16.1 % High 11.0-15.0 [facility] Hematocrit Auto (Bld) [Volum e fraction]on 01-30-2024 Hematocrit (Bld) [Volume fraction] 40.0 % Low 42.0-54.0 [facility] Hemoglobin [Mass/volume] in Bloodon 01-30-2024 Hemoglobin (Bld) [Mass/Vol] 13.0 g/dL Low 14.0-18.0 [facility] Laboratory - Chemistry and C hemistry - challengeon 01-30-2024 Ferritin [Mass/Vol] 71.0 ng/mL 26.0-388.0 [facility] - Hematology and Cell countson 01-30-2024 Immature granulocytes/100 WBC (Bld) 0.2 % 0.0-0.5 [facility] Leukocytes [#/volume] correc jignesh for nucleated erythrocytes in Blood by Automated counon 01-30-2024 WBC corrected for nucl RBC Auto (Bld) [#/Vol] 4.9 10 3/uL 4.0-11.0 [facility] Lymphocytes Auto (Bld) [#/Vo l]on 01-30-2024 Lymphocytes (Bld) [#/Vol] 1.1 10 3/uL Low 1.2-3.8 [facility] Lymphocytes/100 WBC Auto (Bl d)on 01-30-2024 Lymphocytes/100 WBC (Bld) 21.7 % 20.5-60.0 [facility] MCH Auto (RBC) [Entitic mass ]on 01-30-2024 MCH (RBC) [Entitic mass] 30.2 pg 25.9-34.0 [facility] MCHC Auto (RBC) [Mass/Vol]on 01-30-2024 MCHC (RBC) [Mass/Vol] 32.5 g/dL 29.9-35.2 [facility] MCV Auto (RBC) [Entitic vol] on 01-30-2024 MCV (RBC) [Entitic vol] 92.8 fL 80.0-94.0 [facility] Monocytes Auto (Bld) [#/Vol] on 01-30-2024 Monocytes (Bld) [#/Vol] 0.6 10 3/uL 0.3-0.8 [facility] Monocytes/100 WBC Auto (Bld) on 01-30-2024 Monocytes/100 WBC (Bld) 11.9 % 1.7-12.0 [facility] Neutrophils Auto (Bld) [#/Vo l]on 01-30-2024 Neutrophils (Bld) [#/Vol] 3.1 10 3/uL 1.4-6.5 [facility] Neutrophils/100 WBC Auto (Bl d)on 01-30-2024 Neutrophils/100 WBC (Bld) 62.2 % 43.0-75.0 [facility] No Panel Informationon 01-29 Eosinophils # (Auto) 0.2 10 3/uL 0.0-0.7 [facility] Immature Granulocyte # (Auto) 0.01 10 3/uL 0.00-0.03 [facility] Platelet mean volume Auto (B ld) [Entitic vol]on 01-30-2024 Platelet mean volume (Bld) [Entitic vol] 11.0 fL 9.5-13.5 [facility] Platelets Auto (Bld) [#/Vol] on 01-30-2024 Platelets (Bld) [#/Vol] 190 10 3/uL 150-450 [facility] RBC Auto (Bld) [#/Vol]on RBC (Bld) [#/Vol] 4.31 10 6/uL Low 4.70-6.10 [facility] Consultation Noteon 11-30-19 Consultation Note [id number]#1.00TIFF Normal [facility] Lab Reportson 11-28-2023 Lab Reports [id number]#1.00TIFF Normal [facility] Patient Educationon 11-28-19 Patient Education Obstetrics and Gynec ology Kegel Exercises Kegel exercises can help strengthen your pelvic floor muscles. The pelvic floor is a group of muscles that support your rectum, small intestine, and bladder. In females, pelvic floor muscles also help support the uterus. These muscles help you control the flow of urine and stool (feces). Kegel exercises are painless and simple. They do not require any equipment. Your provider may suggest Kegel exercises to: ? Improve bladder and bowel control. ? Improve sexual response. ? Improve weak pelvic floor muscles after surgery to remove the uterus (hysterectomy) or after , in females. ? Improve weak pelvic floor muscles after prostate gland removal or surgery, in males. Kegel exercises involve squeezing your pelvic floor muscles. These are the same muscles you squeeze when you try to stop the flow of urine or keep from passing gas. The exercises can be done while sitting, standing, or lying down, but it is best to vary your position. Ask your health care provider which exercises are safe for you. Do exercises exactly as told by your health care provider and adjust them as directed. Do not begin these exercises until told by your health care provider. Exercises How to do Kegel exercises: 1. Squeeze your pelvic floor muscles tight. You should feel a tight lift in your rectal area. If you are a female, you should also feel a tightness in your vaginal area. Keep your stomach, buttocks, and legs relaxed. 2. Hold the muscles tight for up to 10 seconds. 3. Breathe normally. 4. Relax your muscles for up to 10 seconds. 5. Repeat as told by your health care provider. Repeat this exercise daily as told by your health care provider. Continue to do this exercise for at least 4?6 weeks, or for as long as told by your health care provider. You may be referred to a physical therapist who can help you learn more about how to do Kegel exercises. Depending on your condition, your health care provider may recommend: ? Varying how long you squeeze your muscles. ? Doing several sets of exercises every day. ? Doing exercises for several weeks. ? Making Kegel exercises a part of your regular exercise routine. This information is not intended to replace advice given to you by your health care provider. Make sure you discuss any questions you have with your health care provider. Document Revised: 02/09/2022 Document Reviewed: 02/09/2022 [employer] Patient Education ? 2022 [employer] Normal [facility] Screenson 11-28-2023 Screens [id number]#1.00TIFF Normal [facility] Screens [id number]#1.00TIFF [facility] Urology Office/Clinic Noteon 11-28-2023 Urology Office/Clinic Note Chief Complaint 3m to starting Gemtesa HPI Staff 3 month F/U to starting Gemtesa 75mg qd therapy. Previous DX; mixed incontinence, personal hx of prostate cancer, hernia, inguinal mass & varicocele Pt states he is unable to provide urine specimen. No more wetting the bed. Does wear a pad and brief all the time. Still having leaking during the day. More with walking. But also will leak just sitting in the chair. Has not noticed any improvement. Denies pain/burning and visible blood in urine. Denies scrotal/testicular pain. PVR 12ml History of Present Illness Tests reviewed: reviewed PVR, external records including notes and PSA I have reviewed the previous health record information and history for this patient from Dr. Whitten and external providers I have reviewed and verified the staff HPI to be accurate for this encounter. Review of Systems PHQ Score Initial Depression Screen Score: 0 SCORE ROS - Provider Constitutional: denies weight loss, denies hot flashes. Eyes: denies eye problems. Gastrointestinal: denies nausea, denies vomiting. Cardiovascular: denies chest pain or angina. Integumentary: no dryness Musculoskeletal: denies musculoskeletal symptoms. ENMT: denies otolaryngeal symptoms. Respiratory: no shortness of breath. Heme/Lymph: denies easy bleeding tendency, denies easy bruising tendency. Psychiatric: no confusion, no anxiety. Genitourinary: See HPI. Physical Exam Vitals & Measurements HR: 106(Peripheral) RR: 16 BP: 135/84 HT: 70 in HT: 177 cm WT: 99 kg WT: 217.8 lb BMI: 31.6 General Appearance: alert, no distress, well nourished, well developed male. Genitourinary: Flank Pain: none. Bladder: nonpalpable. Assessment/Plan 78-year-old male prior Dr. Freedman patient with mixed urinary incontinence s/p RALP, EBRT presents for follow-up. LEESA 3. Present with 1. Mixed incontinence (N39.46: Mixed incontinence) Complete 6 session of PFPT w/ FERNANDO, and then did 4 weeks of PFPT at home. Improvement reported during notes however patient declines current improvement. Rx'd Myrbetriq 25mg qd in the past but was too expensive. Did not recall getting different Rx of Trospium 20mg qhs. Green clamp did not work/did not want to use. Previously discussed further w/u with cysto/uros but pt declined. Bladder scan 12mL. No sample provided for UA today. IPSS 12 Started Gemtesa 75mg qd at prior OV. No longer wetting the bed. Wears a pad during the day. States he is satisfied with nighttime urinary sx control, however Gemtesa not cost effective. Leaks with walking and activity. Regarding RESHMA: Re-discussed options of male sling and AUS. Risks/benefits/success rates discussed. Advised pt elevated risk of complications due to history of radiation, such as cuff erosion, continued leakage and need for revision surgeries in the future. Would refer to tertiary center given his complex surgical history. Regarding urge incontinence, discussed Botox as an alternative option to medication. Advised this typically lasts 6 months to 1 year. Risks/benefits/procedural details again discussed including retention and temporary need for CIC versus catheter. States he would like to try behavioral modifications first and will consider procedural options. Literature provided today -Cont Gemtesa -Avoid bladder irritants -Timed Voids. -PFPT at home. -Consider AUS, male sling, and Botox -Advised pt referral can be done for male sling/AUS -If Botox desired during my leave, can be scheduled with one of my partners prior to f/u in 6 months 2. Personal history of prostate cancer (Z85.46: Personal history of malignant neoplasm of prostate) Initial DX:Prostate adenocarcinoma, initial PSA 7.4, bx GS 7(4+3) GG3, clinical stage T2a S/p open radical retropubic prostatectomy BL pelvic lymphadenectomy done 06/20/[address] Freedman - [id number] (Antione 4+3) +EPE,+margin. Underwent salvage radiation for rising PSA PSA 05/08/23- <0.02 11/13/23 - <0.02 Patient sees Radiation oncology regularly. Dr Hernandez continues to check PSA's. 3. Hernia, inguinal (K40.90: Unilateral inguinal hernia, without obstruction or gangrene, not specified as recurrent) Pt states he had open left inguinal hernia repair with mesh prior to RALP 10/2022 CT Scan shows bilateral fat filled inguinal hernias, left with long loop of sigmoid colon extending near level of scrotum. 3 cm area of density within inguinal hernia suspicious for acute diverticulitis. Could also represent soft tissue scarring from prior hernia repair. Referred to [facility] General Surgery for hernia- S/P Excision of left groin hernia mesh, bilateral myofascial advancement flaps, repair of incarcerated epigastric hernia, recurrent incarcerated left inguinal hernia and reducible right renal hernia pair with implantation of large mesh, 02/23/[address] Donato Bishop, Path report was benign. Pt states that he is happy with with the results and the surgery he had. -Continue follow-up with genera (more content not included)... Normal [facility] Comment on above: Result Comment: Elec tronically Signed By: Radha Whitten MD\.br\Date and Time Signed: 11/28/23 17:42 EST\.br\Electronically Co-Signed By: Laura Horn\.br\Date and Time Co-Signed: 11/28/23 11:07 EST CNOVon 11-20-2023 CNOV Office Visit (RADTSA ) YONI RAMIREZ ([id number]) 1945 M Date Time Provider Department 11/20/23 1:30 PM Aaliyah HERNANDEZ During your visit today, we recorded the following information about you: Temperature Pulse Respiration Blood pressure 97.3 degrees 59/minute 16/minute 145/76 Weight 103.9 kg Aaliyah Hernandez MD 11/28/2023 3:34 PM Signed Radiation Oncology - Follow Up Note PATIENT NAME: Yoni Ramirez PATIENT DIAGNOSIS: Prostate adenocarcinoma, 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 INTERVAL HISTORY: Patient states he is doing fairly well. Has had some issues with incontinence fairly chronic for him. 05/15/23:He did undergo abdominal surgery in February with removal of previous implanted mesh and exploratory laparotomy and implantation of mesh for repair of femoral hernia with 2 contrast large femoral hernia with defect and containing large bowel. No evidence of malignancy and resected tissue. He has done very well subsequently. Denies of any problems. 12/12/22:Patient here for further follow-up regarding palpable lump left scrotal area. Patient had seen Dr. Whitten. Seeing patient shortly after this for routine follow-up recommended further imaging with MRI as patient was unclear what he wanted to do. Denies any new problems. MRI Pelvis 12/04/22: 1. No enhancing scrotal lesions. 2. 3.2 x 1.8 x 3.5 cm fatty lesion seen in the left scrotal sac laterally. Could reflect area of fat necrosis or spermatic cord lipoma. Could correlate with lesion seen on prior ultrasound. Recommend continued ultrasound follow-up to document stability. 3. Large inguinal hernias bilaterally, left greater than right with fat extending into the scrotum. Left hernia contains a loop of colon He underwent ultrasound 08/05/2022 with small left hydrocele no other significant finding. He underwent repeat ultrasound on 10/11/2022 with the finding of a solid vascular appearing mass in the left hemiscrotum measuring 2.6 x 2.9 x 1.6 cm. This is noted to be separate from the testicle. Small varicocele no hydrocele on the left. Further work-up including CT chest abdomen and pelvis on 11/06/2022 demonstrating: No suspicious chest findings. Nonobstructing left nephrolithiasis. Large left inguinal hernia with fat extending into the scrotum and along with the sigmoid colon extending to near the level of the scrotum, 3 cm area of density within the inguinal hernia suspicious for acute diverticulitis. This could also represent scarring from prior hernia repair. Large fat filled right inguinal hernia without strangulation or bowel involvement. No suspicious bony changes. Patient has seen Dr. Lue the other day and underwent laboratory evaluation without remarkable findings. He is here today for routine follow-up. 07/13/22: Doing well. Is more active. Walking 1 to 2 miles daily starting to lose weight as a result. Feeling better. 03/30/22:Overall doing well. Still having urinary incontinence though mostly with increased activity. Having some intermittent diarrhea but mostly increased frequency and looser stools without blood or other issues. 12/21/21:Doing well. Overall urinary function has improved. Less incontinence. Incontinence he is having is mostly stress related. Recent colonoscopy without significant findings. 08/10/21:Doing well. Significant improvement in bladder and bowel frequency. Still with moderate fatigue. PSA HISTORY: PSA (ng/mL) Date Value 11/13/2023 <0.02 05/08/2023 <0.02 11/02/2022 <0.02 07/06/2022 <0.02 09/15/2021 <0.1 08/03/2021 <0.03 Initial post prostatectomy PSA 0.23 on 07/17/2018. Patient's PSA continued to rise: 0.48 on 04/22/2019 0.87 on 09/29/2019 1.43 on 03/19/2020 1.62 on 07/19/2020 2.05 on 09/27/2020 ALLERGIES No Known Allergies GEMTESA 75 mg tablet acetaminophen (TYLENOL) 325 mg tablet Take 2 tablets by mouth every 6 hours as needed for pain. lisinopril (ZESTRIL) 10 mg tablet q 24 HR. carvedilol (COREG) 12.5 mg tablet 6.25 mg twice daily with meals. aspirin, enteric coated (ASPIRIN, ENTERIC COATED) 81 mg EC tablet Take 81 mg by mouth once daily. amLODIPine (NORVASC) 5 mg tablet Take by mouth two times a day. lisinopril-hydroCHLOROthiazi de (PRINZIDE, ZESTORETIC) 20-25 mg per tablet Take 1 tablet by mouth once daily. atorva (more content not included)... Normal [facility] PSA SerPl-mCncon 11-13-2023 Prostate specific Ag [Mass/Vol] ng/mL Normal <2.60 [facility] Comment on above: Order Comment: Speci men Type: BLOOD SPECIMEN Ordering Facility: [facility] Address: [address] [place] [address] Result Comment: Tota l PSA test methodology used is the Electrochemiluminescence Immunoassay by [employer]. Total PSA values by differing methodologies cannot be interchanged. Performed By: #### 2 857-1 #### [facility] CLIA [id number] [facility] [place] [address] [place] Ambulatory Visit Summaryon 1 10-15-2022 Ambulatory Visit Summary YONI RAMIREZ :1945 Visit Date:08/15/2023 Ambulatory Visit Instructions Your Diagnosis Mixed incontinence Personal history of prostate cancer Hernia, inguinal Inguinal mass Varicocele present on ultrasound of scrotum Tests Performed Urnls Dip Stick Auto w/o Microscopy POC 24103 Your Care Team Attending Physician - Radha Whitten MD Primary Care Physician - BRO CHAVEZ DO This Is Your Medications List vibegron (Gemtesa 75 mg oral tablet) Contact prescribing physician if questions or concerns allopurinol (allopurinol 300 mg Tab) amlodipine (amLODIPine 5 mg Tab) aspirin (aspirin 81 mg Chew Tab) atorvastatin carvedilol (carvedilol 12.5 mg Tab) hydrochlorothiazide-lisinopr il (hydrochlorothiazide-lisinop ril 25 mg-20 mg Tab) lisinopril (lisinopril 10 mg Tab) Procedures Performed Inguinal hernia (02/23/2023), Pelvic floor (02/23/2023), History of external beam radiation therapy (07/14/2021), Radical retropubic prostatectomy with bilateral pelvic lymphadenectomy (06/20/2018), Transrectal biopsy of prostate using ultrasound guidance (03/28/2018), Colonoscopy, Hernia, Tonsillectomy. Discharge Vitals Heart Rate (Peripheral) 80 Respiratory Rate 16 Blood Pressure 132/76 Height 177 cm Height 70 in Weight 99 kg Weight 217.8 lb BMI 31.6 What to do next You Need to Schedule the Following Appointments Follow Up with Radha Whitten MD, URL, URO When: In 3 months Where: Medications What How Much When Instructions New vibegron (Gemtesa 75 mg oral tablet) 1 Tablets By Mouth Every day [facility]: [id number] Unchanged allopurinol (allopurinol 300 mg Tab) 1 Tablets By Mouth Every day Contact prescribing physician if questions or concerns Unchanged amlodipine (amLODIPine 5 mg Tab) 1 Tablets By Mouth Every day Contact prescribing physician if questions or concerns Unchanged aspirin (aspirin 81 mg Chew Tab) Chewed Every day Contact prescribing physician if questions or concerns Unchanged atorvastatin 20 Milligram By Mouth Every day Contact prescribing physician if questions or concerns Unchanged carvedilol (carvedilol 12.5 mg Tab) 1 Tablets By Mouth 2 times a day Contact prescribing physician if questions or concerns Unchanged hydrochlorothiazide-lisinopr il (hydrochlorothiazide-lisinop ril 25 mg-20 mg Tab) By Mouth Every day Contact prescribing physician if questions or concerns Unchanged lisinopril (lisinopril 10 mg Tab) Contact prescribing physician if questions or concerns Pharmacy Information [facility] [id number]: [address] [place], [place] [id number] [phone] Test Results Urnls Dip Stick Auto w/o Microscopy POC 50562 (08/15/2023) Bilirubin Urine Dipstick - Negative Blood Urine Dipstick - Negative Glucose Urine Dipstick - Negative Ketones Urine Dipstick - Negative Leukocytes Urine Dipstick - Negative Nitrite Urine Dipstick - Negative Protein Urine Dipstick - Negative Specific Pierz Urine Dipstick - 1.025 Urine Appearance Urine Dipstick - Clear Urine Color Urine Dipstick - Yellow Urobilinogen Urine Dipstick - Normal 0.2-1 EU/dl pH Urine Dipstick - 5.5 Allergies No Known Medication Allergies Problems Ongoing - Any problem that you are currently receiving treatment for. Arthritis BMI 36.0-36.9,adult BPH with urinary obstruction Gout Hernia, inguinal History of kidney stones Hypertension Inguinal mass Kidney stone Male stress incontinence Mixed incontinence Nocturnal enuresis Personal history of prostate cancer Renal cyst Rising PSA following treatment for malignant neoplasm of prostate Urge incontinence Urinary frequency Urinary urgency Varicocele present on ultrasound of scrotum Patient Survey You may receive a survey via text or e-mail asking about your office visit. Please share your experience with us by completing your survey. We appreciate your feedback and thank you for choosing us for your care. Education Materials Kegel Exercises Kegel exercises can help strengthen your pelvic floor muscles. The pelvic floor is a group of muscles that support your rectum, small intestine, and bladder. In females, pelvic floor muscles also help support the uterus. These muscles help you control the flow of urine and stool (feces). Kegel exercises are painless and simple. They do not require any equipment. Your provider may suggest Kegel exercises to: ? Improve bladder and bowel control. ? Improve sexual response. ? Improve weak pelvic floor muscles after surgery to remove the uterus (hysterectomy) or after , in females. ? Improve weak pelvic floor muscles after prostate gland removal or surgery, in males. Kegel exercises involve squeezing your pelvic floor muscles. These are the same muscles you squeeze when you try to stop the flow of urine or keep from passing gas. The exercises can be done while sitting, (more content not included)... Normal [facility] Patient Educationon 08-15-20 Patient Education Obstetrics and Gynec ology Kegel Exercises Kegel exercises can help strengthen your pelvic floor muscles. The pelvic floor is a group of muscles that support your rectum, small intestine, and bladder. In females, pelvic floor muscles also help support the uterus. These muscles help you control the flow of urine and stool (feces). Kegel exercises are painless and simple. They do not require any equipment. Your provider may suggest Kegel exercises to: ? Improve bladder and bowel control. ? Improve sexual response. ? Improve weak pelvic floor muscles after surgery to remove the uterus (hysterectomy) or after , in females. ? Improve weak pelvic floor muscles after prostate gland removal or surgery, in males. Kegel exercises involve squeezing your pelvic floor muscles. These are the same muscles you squeeze when you try to stop the flow of urine or keep from passing gas. The exercises can be done while sitting, standing, or lying down, but it is best to vary your position. Ask your health care provider which exercises are safe for you. Do exercises exactly as told by your health care provider and adjust them as directed. Do not begin these exercises until told by your health care provider. Exercises How to do Kegel exercises: 1. Squeeze your pelvic floor muscles tight. You should feel a tight lift in your rectal area. If you are a female, you should also feel a tightness in your vaginal area. Keep your stomach, buttocks, and legs relaxed. 2. Hold the muscles tight for up to 10 seconds. 3. Breathe normally. 4. Relax your muscles for up to 10 seconds. 5. Repeat as told by your health care provider. Repeat this exercise daily as told by your health care provider. Continue to do this exercise for at least 4?6 weeks, or for as long as told by your health care provider. You may be referred to a physical therapist who can help you learn more about how to do Kegel exercises. Depending on your condition, your health care provider may recommend: ? Varying how long you squeeze your muscles. ? Doing several sets of exercises every day. ? Doing exercises for several weeks. ? Making Kegel exercises a part of your regular exercise routine. This information is not intended to replace advice given to you by your health care provider. Make sure you discuss any questions you have with your health care provider. Document Revised: 02/09/2022 Document Reviewed: 02/09/2022 [facility] Patient Education ? 2022 Heidi Shaulis. Normal [facility] Screenson 08-15-2023 Screens [id number] [facility] Screens [id number]#[id number] [facility] Urology Office/Clinic Noteon 08-15-2023 Urology Office/Clinic Note Chief Complaint Incontinence HPI Staff Last seen in our office 01/24/23 by FERNANDO for his 6th round of PFPT. Last seen by [facility] 11/08/22 due to Inguinal Hernia, Inguinal Mass, Personal Hx of Prostate Cancer, Male Stress Incontinence, Urge Incontinence & Varicocele. s/p open radical retropubic prostatectomy BL pelvic lymphadenectomy done 06/20/[address] Freedman *Started on Myrbetriq 25mg qd therapy at last [facility] encounter- too expensive. Switched to Trospium 20mg QHS-pt states he was not switched to anything (EMR message from 11/13/22) ... does not take any Uro meds Referred to General Surgery for hernia- S/P Inguinal Hernia Repair 02/23/[address] Donato Bishop. Pt states they also did pelvic floor reconstruction at that time. MRI Prostate 12/04/[address] Hernandez 05/18/23 PSA 05/08/23- <0.02 Pt is here today due to incontinence. Pt wears a depends and a guard. Gets the urge to void. However states the leaking is without sensory awareness. Would like to discuss options. History of Present Illness Tests reviewed: reviewed UA and External Records. I have reviewed the previous health record information and history for this patient from Cierra Zhu PA-C and external providers. I have reviewed and verified the staff HPI to be accurate for this encounter. There have been no associated fever, chills, flank pain, or blood in the urine. Denies any urinary infections since last encounter. Review of Systems PHQ Score Initial Depression Screen Score: 0 ROS - Provider Constitutional: denies weight loss, denies hot flashes. Eyes: denies eye problems. Gastrointestinal: denies nausea, denies vomiting. Cardiovascular: denies chest pain or angina. Integumentary: no dryness Musculoskeletal: denies musculoskeletal symptoms. ENMT: denies otolaryngeal symptoms. Respiratory: no shortness of breath. Heme/Lymph: denies easy bleeding tendency, denies easy bruising tendency. Psychiatric: no confusion, no anxiety. Genitourinary: See HPI. Physical Exam Vitals & Measurements HR: 80(Peripheral) RR: 16 BP: 132/76 HT: 70 in HT: 177 cm WT: 99 kg WT: 217.8 lb BMI: 31.6 General Appearance: alert, no distress, well nourished, well developed male. Assessment/Plan 78-year-old male prior Dr. Freedman patient with mixed urinary incontinence s/p RALP, EBRT presents for follow-up. 1. Mixed incontinence (N39.46: Mixed incontinence) Moderate, since Prostatectomy Pt wears a depends and a guard. Gets the urge to void. However states the leaking is without sensory awareness, during exercise, while sitting and standing. Pt states that he waits to void until his bladder gets full. Pt had completed 6 sessions of PFPT w/FERNANDO, and then did 4 weeks of PFPT at home. Improvement reported during notes however patient declines current improvement. Given recent surgery he is not doing his exercises routinely. Started on Myrbetriq 25mg qd therapy at last [facility] encounter- too expensive. Denies knowledge of getting different Rx of Trospium 20mg QHS. Previously discussed trying Green clamp which did not work/he does not want to use. Discussed that this is likely stress incontinence given prostatectomy and salvage radiation. Discussed potential for urge incontinence given his symptoms as well. Discussed definitions, etiology of urge and stress incontinence as well as treatment options of each. Discussed further work-up with urodynamics and cystoscopy, he declines at this time. Thoroughly discussed male sling and AUS, complicated due to radiation. Would refer to tertiary center given his complex surgical history. Given long recovery from recent hernia repair he would like to avoid surgery if possible. Discussed medical management for treating the urge incontinence and potentially reducing incontinence without sensory awareness. Discussed why beta 3 agonist are more expensive and elevated risk of side effects with anticholinergics. Discussed temporary trial of medications and potential for Botox in the future if he does well with medical management. Follow up in 3 mos. All questions/concerns were discussed. Pt to call the office if he encounters any issues prior. Pt acknowledges understanding. -Timed Voids. -PFPT at home. -Will send Gemtesa 75mg QD to pharm on file. Will give pt number for financial assistance. Discussed the medication side effects, and the patient will monitor closely for these, as well as for symptom improvement. If severe side effects occur, the medication should be stopped and the office notified. Pt is to call our office if this med is to cost prohibitive and we will send Trospium. Risks and benefits discussed. 2. Personal history of prostate cancer (Z85.46: Personal history of malignant neoplasm of prostate) Initial DX:Prostate adenocarcinoma, initial PSA 7.4, bx GS 7(4+3) GG3, clinical stage T2a S/p open radical retropubic prostatectomy BL pelvic lymphadenectomy done 06/20/[address] Freedman - [id number] (Antione 4+3) +EPE,+margin. Underwent salvage ra (more content not included)... Normal [facility] Comment on above: Result Comment: Elec tronically Signed By: Fish WHARTON, Radha Tejada\.br\Date and Time Signed: 08/15/23 21:17 EDT\.br\Electronically Co-Signed By: Savanna Rosenthal.br\Date and Time Co-Signed: 08/15/23 09:35 EDT Basic metabolic 2000 panelon 02-28-2023 Anion gap [Moles/Vol] 12 mmol/L Normal 07-02 [facility] Comment on above: Order Comment: Speci men Type: BLOOD SPECIMEN Ordering Facility: [facility] Address: [address] [address] Performed By: #### 2 432-2, #### [facility] CLIA [id number] [address] [place] [address] [place] Calcium [Mass/Vol] 8.7 mg/dL Normal 8.5-10.2 [facility] Comment on above: Order Comment: Speci men Type: BLOOD SPECIMEN Ordering Facility: [facility] Address: [address] [address] Performed By: #### 2 2, #### [facility] CLIA [id number] [address] [place] [address] [place] Chloride [Moles/Vol] 103 mmol/L Normal 97-105 [facility] Comment on above: Order Comment: Speci men Type: BLOOD SPECIMEN Ordering Facility: [facility] Address: [address] [address] Performed By: #### 2 2, #### [facility] CLIA [id number] [address] [place] [address] [place] CO2 [Moles/Vol] 24 mmol/L Normal 22-30 [facility] Comment on above: Order Comment: Speci men Type: BLOOD SPECIMEN Ordering Facility: [facility] Address: [address] [address] Performed By: #### 2 2, #### [facility] CLIA [id number] [address] [place] [address] [place] Creatinine [Mass/Vol] 0.49 mg/dL Low 0.73-1.22 [facility] Comment on above: Order Comment: Speci men Type: BLOOD SPECIMEN Ordering Facility: [facility] Address: [address] [address] Performed By: #### 2 2, #### [facility] CLIA [id number] [address] [place] [address] [place] ESTIMATED GLOMERULAR FILTRATION RATE 107 mL/min/1.73m??? Normal >=60 [facility] Comment on above: Order Comment: John chan Type: BLOOD SPECIMEN Ordering Facility: [facility] Address: [address] [place] [address] Result Comment: Trena mated Glomerular Filtration Rate (eGFR) is calculated using the 2020 CKD-EPI creatinine equation. This equation utilizes serum creatinine, sex, and age as parameters. The creatinine assay has traceable calibration to isotope dilution-mass spectrometry. Refer to KDIGO guidelines for clinical interpretation. In patients with unstable renal function, e.g. those with acute kidney injury, the eGFR may not accurately reflect actual GFR. Performed By: #### 2 4321-2, #### [facility] CLIA [id number] [address] [place] [address] [place] Glucose [Mass/Vol] 92 mg/dL Normal 74-99 [facility] Comment on above: Order Comment: John chan Type: BLOOD SPECIMEN Ordering Facility: [facility] Address: [address] [place] [address] Result Comment: The [place] Diabetes Association (ADA) provides guidance for cutoff values for fasting glucose and random glucose. The ADA defines fasting as no caloric intake for at least 8 hours. Fasting plasma glucose results between 100 to 125 mg/dL indicate increased risk for diabetes (prediabetes). Fasting plasma glucose results greater than or equal to 126 mg/dL meet the criteria for diagnosis of diabetes. In the absence of unequivocal hyperglycemia, results should be confirmed by repeat testing. In a patient with classic symptoms of hyperglycemia or hyperglycemic crisis, random plasma glucose results greater than or equal to 200 mg/dL meet the criteria for diagnosis of diabetes. Reference: Standards of Medical Care in Diabetes 2016, [place] [employer] Association. Diabetes Care. 2016.39(Suppl 1). Performed By: #### 2 4321-2, #### [facility] CLIA [id number] [address] [place] [address] [place] Potassium [Moles/Vol] 3.8 mmol/L Normal 3.7-5.1 [facility] Comment on above: Order Comment: John chan Type: BLOOD SPECIMEN Ordering Facility: [facility] Address: [address] [address] Performed By: #### 2 4320-11, #### [facility] CLIA [id number] [address] [place] [address] [place] Sodium [Moles/Vol] 139 mmol/L Normal 136-144 [facility] Comment on above: Order Comment: Speci men Type: BLOOD SPECIMEN [facility] [facility] Address: [address] [address] Performed By: #### 2 4320-11, #### [facility] CLIA [id number] [address] [place] [address] [place] Urea nitrogen [Mass/Vol] 8 mg/dL Low 9- [facility] Comment on above: Order Comment: Speci men Type: BLOOD SPECIMEN Ordering Facility: [facility] Address: [address] [address] Performed By: #### 2 4320-11, #### [facility] CLIA [id number] [address] [place] [address] [place] CBC W Auto Differential pane l (Bld)on 02-28-2023 Basophils (Bld) [#/Vol] 0.03 10*3/uL Normal <0.11 [facility] Comment on above: Order Comment: Speci men Type: BLOOD SPECIMEN Ordering Facility: [facility] Address: [address] [address] Performed By: #### 2 4320-11, #### [facility] CLIA [id number] [address] [place] [address] [place] Basophils/100 WBC (Bld) 0.6 % Normal [facility] Comment on above: Order Comment: Speci men Type: BLOOD SPECIMEN Ordering Facility: [facility] Address: [address] [address] Performed By: #### 2 4320-11, #### [facility] CLIA [id number] [address] [place] [address] [place] Differential cell count method Nom (Bld) Auto Normal [facility] Comment on above: Order Comment: Speci men Type: BLOOD SPECIMEN Ordering Facility: [facility] Address: [address] [place] [address] Performed By: #### 2 2, #### [facility] CLIA [id number] [address] [place] [address] [place] Eosinophils (Bld) [#/Vol] 0.36 10*3/uL Normal <0.46 [facility] Comment on above: Order Comment: Speci men Type: BLOOD SPECIMEN Ordering Facility: [facility] Address: [address] [place] [address] Performed By: #### 2 4320-11, #### [facility] CLIA [id number] [address] [place] [address] [place] Eosinophils/100 WBC (Bld) 7.5 % Normal [facility] Comment on above: Order Comment: Speci men Type: BLOOD SPECIMEN Ordering Facility: [facility] Address: [address] [place] [address] Performed By: #### 2 4320-11, #### [facility] CLIA [id number] [address] [place] [address] [place] Erythrocyte distribution width (RBC) [Ratio] 15.4 % High 11.5-15.0 [facility] Comment on above: Order Comment: Speci men Type: BLOOD SPECIMEN Ordering Facility: [facility] Address: [address] [place] [address] Performed By: #### 2 4320-11, #### [facility] CLIA [id number] [address] [place] [address] [place] [facility] [place] Hematocrit (Bld) [Volume fraction] 36.0 % Low 39.0-51.0 [facility] Comment on above: Order Comment: Speci men Type: BLOOD SPECIMEN Ordering Facility: [facility] Address: [address] [place] [address] Performed By: #### 2 4321- #### [facility] CLIA [id number] [address] [place] [address] [place] Hemoglobin (Bld) [Mass/Vol] 12.1 g/dL Low 13.0-17.0 [facility] Comment on above: Order Comment: Speci men Type: BLOOD SPECIMEN Ordering Facility: [facility] Address: [address] [place] [address] Performed By: #### 2 4320-11, #### [facility] CLIA [id number] [address] [place] [address] [place] Immature granulocytes (Bld) [#/Vol] 10*3/uL Normal <0.10 [facility] Comment on above: Order Comment: Speci men Type: BLOOD SPECIMEN Ordering Facility: [facility] Address: [address] [place] [address] Performed By: #### 2 4320-11, #### [facility] CLIA [id number] [address] [place] [address] [place] Immature granulocytes/100 WBC (Bld) 0.4 % Normal [facility] Comment on above: Order Comment: Speci men Type: BLOOD SPECIMEN Ordering Facility: [facility] Address: [address] [place] [address] Performed By: #### 2 4320-11, #### [facility] CLIA [id number] [address] [place] [address] [place] Lymphocytes (Bld) [#/Vol] 0.61 10*3/uL Low 1.00-4.00 [facility] Comment on above: Order Comment: Speci men Type: BLOOD SPECIMEN Ordering Facility: [facility] Address: [address] [place] [address] Performed By: #### 2 4320-11, #### [facility] CLIA [id number] [address] [place] [address] [place] Lymphocytes/100 WBC (Bld) 12.6 % Normal [facility] Comment on above: Order Comment: Speci men Type: BLOOD SPECIMEN Ordering Facility: [facility] Address: [address] [address] Performed By: #### 2 4320-11, #### [facility] CLIA [id number] [address] [place] [address] MCH (RBC) [Entitic mass] 30.0 pg Normal 26.0-34.0 [facility] Comment on above: Order Comment: Speci men Type: BLOOD SPECIMEN Ordering Facility: [facility] Address: [address] [address] Performed By: #### 2 4320-11, #### [facility] CLIA [id number] [address] [place] [address] [place] MCHC (RBC) [Mass/Vol] 33.6 g/dL Normal 30.5-36.0 [facility] Comment on above: Order Comment: Speci men Type: BLOOD SPECIMEN Ordering Facility: [facility] Address: [address] [address] Performed By: #### 2 4320-11, #### [facility] CLIA [id number] [address] [place] [address] [place] MCV (RBC) [Entitic vol] 89.3 fL Normal 80.0-100.0 [facility] Comment on above: Order Comment: Speci men Type: BLOOD SPECIMEN Ordering Facility: [facility] Address: [address] [address] Performed By: #### 2 4320-11, #### [facility] CLIA [id number] [address] [place] [address] [place] Monocytes (Bld) [#/Vol] 0.58 10*3/uL Normal <0.87 [facility] Comment on above: Order Comment: Speci men Type: BLOOD SPECIMEN Ordering Facility: [facility] Address: [address] [address] Performed By: #### 2 4320-11, #### [facility] CLIA [id number] [address] [place], [place] [address] [place] Monocytes/100 WBC (Bld) 12.0 % Normal [facility] Comment on above: Order Comment: Speci men Type: BLOOD SPECIMEN Ordering Facility: [facility] Address: [address] [place] [address] Performed By: #### 2 2, #### [facility] CLIA [id number] [address] [place] [address] [place] Neutrophils (Bld) [#/Vol] 3.23 10*3/uL Normal 1.45-7.50 [facility] Comment on above: Order Comment: Speci men Type: BLOOD SPECIMEN Ordering Facility: [facility] Address: [address] [place] [address] Performed By: #### 2 2, #### [facility] CLIA [id number] [address] [place] [address] [place] Neutrophils/100 WBC (Bld) 66.9 % Normal [facility] Comment on above: Order Comment: Speci men Type: BLOOD SPECIMEN Ordering Facility: [facility] Address: [address] [place] [address] Performed By: #### 2 4320-11, #### [facility] CLIA [id number] [address] [place] [address] [place] Nucleated RBC (Bld) [#/Vol] 10*3/uL Normal <0.01 [facility] Comment on above: Order Comment: Speci men Type: BLOOD SPECIMEN Ordering Facility: [facility] Address: [address] [address] Performed By: #### 2 4320-2, #### [facility] CLIA [id number] [address] [place] [address] [place] Nucleated RBC/100 WBC (Bld) [Ratio] 0.0 /100 WBC Normal [facility] Comment on above: Order Comment: Speci men Type: BLOOD SPECIMEN Ordering Facility: [facility] Address: [address] [place] [address] Performed By: #### 2 4320-2, #### [facility] CLIA [id number] [address] [place] [address] [place] Platelet mean volume (Bld) [Entitic vol] 10.8 fL Normal 9.0-12.7 [facility] Comment on above: Order Comment: Speci men Type: BLOOD SPECIMEN Ordering Facility: [facility] Address: [address] [place] [address] Performed By: #### 2 4320-2, #### [facility] CLIA [id number] [place] [address] [place] Platelets (Bld) [#/Vol] 182 10*3/uL Normal 150-400 [facility] Comment on above: Order Comment: Speci men Type: BLOOD SPECIMEN Ordering Facility: [facility] Address: [address] [place] [address] Performed By: #### 2 4320-11, #### [facility] CLIA [id number] [address] [place] [address] [place] RBC (Bld) [#/Vol] 4.03 10*6/uL Low 4.20-6.00 [facility] Comment on above: Order Comment: Speci men Type: BLOOD SPECIMEN Ordering Facility: [facility] Address: [address] [place] [address] Performed By: #### 2 4320-11, #### [facility] CLIA [id number] [address] [place] [address] [place] WBC (Bld) [#/Vol] 4.83 10*3/uL Normal 3.70-11.00 [facility] Comment on above: Order Comment: Speci men Type: BLOOD SPECIMEN Ordering Facility: [facility] Address: [address] [place] [address] Performed By: #### 2 2, #### [facility] CLIA [id number] [place] [address] [place] Magnesium SerPl-mCncon 02-28 Magnesium [Mass/Vol] 1.8 mg/dL Normal 1.7-2.3 [facility] Comment on above: Order Comment: Speci men Type: BLOOD SPECIMEN Ordering Facility: [facility] Address: [address] [address] Performed By: #### 2 4321-2, #### [facility] CLIA [id number] [facility] NURSING PROGon 02-28-2023 NURSING PROG HNO ID: [id number] Author: Christie Mayberry RN Service: Nursing Author Type: Registered Nurse Type: Nursing Progress Note Filed: 02/28/2023 7:43 AM Note Text: 2016: BP 179/67 and 167/62. HR 79. Asymptomatic. No prn BP meds on. Text page sent to surgery for further orders. 2022: Scheduled and PRN BP meds ordered. Normal [facility] Phosphate [facility] 02-28 Phosphate [Mass/Vol] 3.0 mg/dL Normal 2.7-4.8 [facility] Comment on above: Order Comment: Speci men Type: BLOOD SPECIMEN Ordering Facility: [facility] Address: [address] [address] Performed By: #### 2 432-2, #### [facility] CLIA [id number] [address] [place] [address] [place] Basic metabolic 2000 panelon 02-27-2023 Anion gap [Moles/Vol] 10 mmol/L Normal 9-18 [facility] Comment on above: Order Comment: Speci men Type: BLOOD SPECIMEN Ordering Facility: [facility] Address: [address] [address] Performed By: #### 2 4321-2, 50366-3, 2777-1 #### [facility] CLIA [id number] [place] [address] [place] Calcium [Mass/Vol] 8.6 mg/dL Normal 8.5-10.2 [facility] Comment on above: Order Comment: Speci men Type: BLOOD SPECIMEN Ordering Facility: [facility] Address: [address] [address] Performed By: #### 2 4321-2, , 2776-10 #### [facility] CLIA [id number] [address] [place] [address] [place] Chloride [Moles/Vol] 106 mmol/L High 97-105 [facility] Comment on above: Order Comment: Speci men Type: BLOOD SPECIMEN Ordering Facility: [facility] Address: [address] [place] [address] Performed By: #### 2 4321-2, , 2776-10 #### [facility] CLIA [id number] [address] [place] [address] [place] CO2 [Moles/Vol] 26 mmol/L Normal 22-30 [facility] Comment on above: Order Comment: Speci men Type: BLOOD SPECIMEN Ordering Facility: [facility] Address: [address] [place] [address] Performed By: #### 2 4321-2, , 2776-10 #### [facility] CLIA [id number] [address] [place] [address] [place] Creatinine [Mass/Vol] 0.55 mg/dL Low 0.73-1.22 [facility] Comment on above: Order Comment: Speci men Type: BLOOD SPECIMEN Ordering Facility: [facility] Address: [address] [place] [address] Performed By: #### 2 4321-2, , 2776-10 #### [facility] CLIA [id number] [address] [place] [address] [place] ESTIMATED GLOMERULAR FILTRATION RATE 103 mL/min/1.73m??? Normal >=60 [facility] Comment on above: Order Comment: Speci men Type: BLOOD SPECIMEN Ordering Facility: [facility] Address: [address] [place] [address] Result Comment: Trena mated Glomerular Filtration Rate (eGFR) is calculated using the 2020 CKD-EPI creatinine equation. This equation utilizes serum creatinine, sex, and age as parameters. The creatinine assay has traceable calibration to isotope dilution-mass spectrometry. Refer to KDIGO guidelines for clinical interpretation. In patients with unstable renal function, e.g. those with acute kidney injury, the eGFR may not accurately reflect actual GFR. Performed By: #### 2 4321-2, , 2776-10 #### [facility] CLIA [id number] [address] [place] [address] [place] Glucose [Mass/Vol] 101 mg/dL High 74-99 [facility] Comment on above: Order Comment: John chan Type: BLOOD SPECIMEN Ordering Facility: [facility] Address: [address] [phone] Result Comment: The [place] [employer] Association (ADA) provides guidance for cutoff values for fasting glucose and random glucose. The ADA defines fasting as no caloric intake for at least 8 hours. Fasting plasma glucose results between 100 to 125 mg/dL indicate increased risk for diabetes (prediabetes). Fasting plasma glucose results greater than or equal to 126 mg/dL meet the criteria for diagnosis of diabetes. In the absence of unequivocal hyperglycemia, results should be confirmed by repeat testing. In a patient with classic symptoms of hyperglycemia or hyperglycemic crisis, random plasma glucose results greater than or equal to 200 mg/dL meet the criteria for diagnosis of diabetes. Reference: Standards of Medical Care in Diabetes 2016, [place] [employer] Association. Diabetes Care. 2016.39(Suppl 1). Performed By: #### 2 4321-2, , 2776-10 #### [facility] CLIA [id number] [place] [address] [place] Potassium [Moles/Vol] 3.6 mmol/L Low 3.7-5.1 [facility] Comment on above: Order Comment: John chan Type: BLOOD SPECIMEN Ordering Facility: [facility] Address: [address] [phone] Performed By: #### 2 4321-2, , 2776-10 #### [facility] CLIA [id number] [address] [id number] [place] Sodium [Moles/Vol] 142 mmol/L Normal 136-144 [facility] Comment on above: Order Comment: Specesperanza men Type: BLOOD SPECIMEN Ordering Facility: [facility] Address: [address] [phone] Performed By: #### 2 4321-2, , 2776-10 #### [facility] CLIA [id number] Urea nitrogen [Mass/Vol] 8 mg/dL Low 9 [facility] Comment on above: Order Comment: Speci men Type: BLOOD SPECIMEN Ordering Facility: [facility] Address: [address] [phone] Performed By: #### 2 4321-2, , 2776-10 #### [facility] CLIA [id number] CASE MGT INIT ASSESon 2022 CASE [facility] INIT ASSES HNO ID: [id number] Author: YURY Luz Service: ? Author Type: De Icer Kit Assembler Type: Care Mgt Initial Assessment Filed: 02/27/2023 3:29 PM Note Text: CARE MANAGEMENT: ASSESSMENT AND DISCHARGE PLAN SERVICE DATE: February 27, 2023 SERVICE TIME: 2:30 PCP: Bro Chavez DO Primary Contact: Extended Emergency Contact Information Primary Emergency Contact: Brianna Caba Mobile Relation: Significant other Admission Status: Inpatient Insurance Provider: MEDICARE A AND B Discharge Planning requested by: Other person(s) per dept policy Potential Transition Plans Retirement Facility/Intermediate Care Facility;Home Care Advance Directives Current Advance Directive: None Development Coach Attempted to Assist with AD Completion: Yes Action: Education Provided;Other: See Comment (forms provided) Current Living Arrangements and Support Lives with: Spouse/significant other Type of Residence: Private Residence (House) Does the patient have to climb stairs at home?: stairs outside the home Support: Spouse/significant other How do you manage to accomplish the following: Independent: Transportation to appointments/community;Ambul ation;Bathe/Shower;Dress;Mary ls/Meal Prep;Going to the bathroom;Medication Management Current Services/Equipment Current Post-Acute Service(s): DME Current DME Type: Continuous Positive Airway Pressure, Walker Discharge Planning Patient Goal(s): General wellness, Be able to go home [place] of Choice Explained: [place] of Choice Given: Yes Level of Care Discussed: Home Care;Retirement Facility Are you interested in bedside delivery of your medications? Yes Discharge Planning Participant(s): Patient;Spouse/significant other Patient/Family Comments: Caregiver Assessment: Caregiver is ready, willing and able to meet the patient's needs as recommended by the inter-professional team: No Transport at Discharge: Transportation Arrangements: Ambulance Needs Prior to Discharge: Needs Prior to Discharge: Facility or Agency Choices;Accepting Facility;Discharge Transportation Post-Acute Discharge Plan: SNF vs HC SW met with patient and SO Brianna of 30+ years. Therapy recommending SNF at this time. SNF list provided. If patient progresses and can go home, [facility] can accept. Patient's NOK would be nieces he has not spoken with in years. SW discussed DHPOA and provide forms. Will follow up regarding completing forms. Patient currently on O2 that he does not have at home. Patient does use CPAP and has his own machine in the room. SIGNATURE: YURY Luz PATIENT NAME: Yoni Ramirez DATE: February 27, 2023 TIME: 3:26 PM CONTACT #: [phone] Normal [facility] CBC W Auto Differential pane l (Bld)on 02-27-2023 Basophils (Bld) [#/Vol] 0.03 10*3/uL Normal <0.11 [facility] Comment on above: Order Comment: Specesperanza chan Type: BLOOD SPECIMENOrdering Facility: [facility] Address: [address] [address] Performed By: #### 5 7021-8 ####[facility] [id number] [place] [address] [place] Basophils/100 WBC (Bld) 0.5 % Normal [facility] Comment on above: Order Comment: John chan Type: BLOOD SPECIMENOrdering Facility: [facility] Address: [address] [address] Performed By: #### 5 7021-8 ####[facility] [id number] [place] [address] [place] Differential cell count method Nom (Bld) Auto Normal [facility] Comment on above: Order Comment: Speci men Type: BLOOD SPECIMENOrdering Facility: [facility] Address: [address] [address] Performed By: #### 5 7021-8 ####[facility] [id number] [address] [place] Eosinophils (Bld) [#/Vol] 0.27 10*3/uL Normal <0.46 [facility] Comment on above: Order Comment: Speci men Type: BLOOD SPECIMENOrdering Facility: [facility] Address: [address] [address] Performed By: #### 5 7021-8 ####[facility] [id number] [address] Eosinophils/100 WBC (Bld) 4.5 % Normal [facility] Comment on above: Order Comment: Speci men Type: BLOOD SPECIMENOrdering Facility: [facility] Address: [address] [address] Performed By: #### 5 7021-8 ####[facility] [id number] [address] [place] Erythrocyte distribution width (RBC) [Ratio] 15.8 % High 11.5-15.0 [facility] Comment on above: Order Comment: Speci men Type: BLOOD SPECIMENOrdering Facility: [facility] Address: [address] [place] [address] Performed By: #### 5 7021-8 ####[facility] [id number] [address] [place] Hematocrit (Bld) [Volume fraction] 35.5 % Low 39.0-51.0 [facility] Comment on above: Order Comment: Speci men Type: BLOOD SPECIMENOrdering Facility: [facility] Address: [address] [address] Performed By: #### 5 7021-8 ####[facility] [id number] [place] [address] [place] Hemoglobin (Bld) [Mass/Vol] 11.7 g/dL Low 13.0-17.0 [facility] Comment on above: Order Comment: Speci men Type: BLOOD SPECIMENOrdering Facility: [facility] Address: [address] [place] [address] Performed By: #### 5 7021-8 ####[facility] [id number] [place] [address] [place] Immature granulocytes (Bld) [#/Vol] 0.03 10*3/uL Normal <0.10 [facility] Comment on above: Order Comment: Speci men Type: BLOOD SPECIMENOrdering Facility: [facility] Address: [address] [place] [address] Performed By: #### 5 7021-8 ####[facility] [id number] [address] [place] Immature granulocytes/100 WBC (Bld) 0.5 % Normal [facility] Comment on above: Order Comment: Speci men Type: BLOOD SPECIMENOrdering Facility: [facility] Address: [address] [place] [address] Performed By: #### 5 7021-8 ####[facility] [id number] [place] [address] [place] Lymphocytes (Bld) [#/Vol] 0.78 10*3/uL Low 1.00-4.00 [facility] Comment on above: Order Comment: Speci men Type: BLOOD SPECIMENOrdering Facility: [facility] Address: [address] [address] Performed By: #### 5 7021-8 ####[facility] [id number] [address] [place] Lymphocytes/100 WBC (Bld) 12.9 % Normal [facility] Comment on above: Order Comment: Speci men Type: BLOOD SPECIMENOrdering Facility: [facility] Address: [address] [place] [address] Performed By: #### 5 7021-8 ####[facility] [id number] [address] [place] MCH (RBC) [Entitic mass] 30.2 pg Normal 26.0-34.0 [facility] Comment on above: Order Comment: Speci men Type: BLOOD SPECIMENOrdering Facility: [facility] Address: [address] [place] [address] Performed By: #### 5 7021-8 ####[facility] [id number] [address] [place] MCHC (RBC) [Mass/Vol] 33.0 g/dL Normal 30.5-36.0 [facility] Comment on above: Order Comment: Speci men Type: BLOOD SPECIMENOrdering Facility: [facility] Address: [address] [place] [address] Performed By: #### 5 7021-8 ####[facility] [id number] [address] STATES [facility] MCV (RBC) [Entitic vol] 91.7 fL Normal 80.0-100.0 [facility] Comment on above: Order Comment: Speci men Type: BLOOD SPECIMENOrdering Facility: [facility] Address: [address] [place] [address] Performed By: #### 5 7021-8 ####[facility] [id number] [address] [place] Monocytes (Bld) [#/Vol] 0.51 10*3/uL Normal <0.87 [facility] Comment on above: Order Comment: Speci men Type: BLOOD SPECIMENOrdering Facility: [facility] Address: [address] [place] [address] Performed By: #### 5 7021-8 ####[facility] [id number] [address] Monocytes/100 WBC (Bld) 8.4 % Normal [facility] Comment on above: Order Comment: Speci men Type: BLOOD SPECIMENOrdering Facility: [facility] [facility] Address: [address] [address] Performed By: #### 5 7021-8 ####[facility]ORATORYCLIA [id number] [place] [address] [place] Neutrophils (Bld) [#/Vol] 4.44 10*3/uL Normal 1.45-7.50 [facility] Comment on above: Order Comment: Speci men Type: BLOOD SPECIMENOrdering Facility: [facility] Address: [address] [address] Performed By: #### 5 7021-8 ####[facility]ORYCLIA [id number] [place] [address] [place] Neutrophils/100 WBC (Bld) 73.2 % Normal [facility] Comment on above: Order Comment: Speci men Type: BLOOD SPECIMENOrdering Facility: [facility] Address: [address] [address] Performed By: #### 5 7021-8 ####[facility] LABORATORYCLIA [id number] [place] [address] [place] Nucleated RBC (Bld) [#/Vol] 10*3/uL Normal <0.01 [facility] Comment on above: Order Comment: Speci men Type: BLOOD SPECIMENOrdering Facility: [facility] Address: [address] [address] Performed By: #### 5 7021-8 ####[facility]ORATORYCLIA [id number] [place] [address] [place] Nucleated RBC/100 WBC (Bld) [Ratio] 0.0 /100 WBC Normal [facility] Comment on above: Order Comment: Speci men Type: BLOOD SPECIMENOrdering Facility: [facility] Address: [address] [place] [address] Performed By: #### 5 7021-8 ####[facility]ATORYCLIA [id number] [place] [address] [place] Platelet mean volume (Bld) [Entitic vol] 10.7 fL Normal 9.0-12.7 [facility] Comment on above: Order Comment: Speci men Type: BLOOD SPECIMENOrdering Facility: [facility] Address: [address] [place] [address] Performed By: #### 5 7021-8 ####[facility] LABORATORYCLIA [id number] [address] [id number] [place] Platelets (Bld) [#/Vol] 157 10*3/uL Normal 150-400 [facility] Comment on above: Order Comment: Speci men Type: BLOOD SPECIMENOrdering Facility: [facility] Address: [address] [place] [address] Performed By: #### 5 7021-8 ####[facility]ORYCLIA [id number] [address] [id number] [place] RBC (Bld) [#/Vol] 3.87 10*6/uL Low 4.20-6.00 [facility] Comment on above: Order Comment: Speci men Type: BLOOD SPECIMENOrdering Facility: [facility] Address: [address] [place] [address] Performed By: #### 5 7021-8 ####[facility]ATORYCLIA [id number] [address] [id number] [facility] [place] WBC (Bld) [#/Vol] 6.06 10*3/uL Normal 3.70-11.00 [facility] Comment on above: Order Comment: Speci men Type: BLOOD SPECIMENOrdering Facility: [facility] Address: [address] [place] [address] Performed By: #### 5 7021-8 ####[facility]ATORYCLIA [id number] [address] [id number] [facility] [place] CONSULT PROGon 02-27-2023 CONSULT PROG HNO ID: [id number] Author: Ree Fernandez APRN.SPARKER AND PATCHER Service: Pain Management Author Type: Nurse Practitioner Type: Consult Progress Note Filed: 02/27/2023 11:41 AM Note Text: PERIPHERAL NERVE CATHETER PROGRESS NOTE PATIENT NAME: Yoni Ramirez SERVICE DATE: 02/27/2023 SERVICE TIME: 9:40 AM ASSESSMENT Yoni Ramirez is a 77 year old male with history of of arthritis, BPH, gout, HTN, hypercholesteremia, prostate cancer (surgery and radiation treatment), diverticulosis, urinary incontinence who was admitted on 02/23/2023 for left inguinal hernia repair, found to have large L femoral hernia s/p bilateral open TAR, Excision of previously implanted mesh, Implantation of 30 x 30 cm prolene mesh on 02/23 with bilateral RS and TAP PNC placed to aid in post op pain. Upon assessment, Mr. Ramirez is resting in be. He continues to report some abd soreness, he states some confusion at times but he is currently oriented to self and place. Bilateral TAP sites without signs or symptoms of infection, no erythema, tenderness, drainage, or warmth. He was started on GI soft, denies nausea or vomiting. Passing flatus. PLAN/Recs: Continue bilateral TAPs at 0//2 each (likely remove tmrw) Continue Acetaminophen 650 mg PO Q 6 h Continue Oxycodone 2.5-5 mg PO Q 4 H PRN for moderate to severe pain Continue bowel regimen per Gen Sx Encourage ambulation and OOB as tolerated The plan was discussed in detail with patient +/- family, bedside RN, APMS staff and primary service, who expressed agreement, understanding and comfort with the plan. Thank you for including us in his care. Please call us with any questions or concerns. APMS will continue to follow. SUBJECTIVE CHIEF COMPLAINT: Gen Sx PRIMARY SERVICE: General Surgery HPI: 77 years old M POD# 4 s/p left inguinal hernia repair, found to have large L femoral hernia s/p bilateral open TAR, Excision of previously implanted mesh, Implantation of 30 x 30 cm prolene mesh with bilateral RS and TAP PNC placed to aid in post op pain. Pain level is 0 at rest 2 with ambulation on a scale of 0-10. Is the patient tolerating Physical Therapy?: yes Pain at surgical site? Min Character: aching Duration: intermittent Radiation: No Relieved: Yes - BTAPS Is patient satisfied with pain control: Yes Overnight Events: None Overnight Pain Interventions: no Allergy: ALLERGIES ALLERGIES No Known Allergies MEDICATIONS: I have interrogated the BTAP pump for the correct settings and solution: Yes. Solution Ropivacaine 0.2%, rate 0 each Adjuvant Pain Medication: See below. Current Facility-Administered Medications Medication Dose Route Frequency lactated ringers iv infusion 50 mL/hr INTRAVENOUS CONTINUOUS ondansetron (PF) 4 mg injection (ZOFRAN) 4 mg INTRAVENOUS q 6 H PRN carvedilol 6.25 mg tab(s) (COREG) 6.25 mg ORAL BID w MEALS atorvastatin 20 mg tab(s) (LIPITOR) 20 mg ORAL DAILY enoxaparin 40 mg injection (LOVENOX) 40 mg SUBCUTANEOUS q 24 HR ropivacaine nerve block 0.2% (2 mg/mL) - 200 mL PERIPHERAL NERVE CATHETER CONTINUOUS ropivacaine nerve block 0.2% (2 mg/mL) - 200 mL PERIPHERAL NERVE CATHETER CONTINUOUS NaCl 0.9% iv flush bag 20 mL INTRAVENOUS PRN NaCl 0.9% iv flush bag 20 mL INTRAVENOUS PRN allopurinol 300 mg tab(s) (ZYLOPRIM) 300 mg ORAL DAILY acetaminophen 650 mg tab(s) (TYLENOL) 650 mg ORAL q 6 H oxyCODONE IR 2.5-5 mg tab(s) (ROXICODONE) 2.5-5 mg ORAL q 4 H PRN potassium phosphate 30 mmol in NaCl 0.9% 250 mL 30 mmol INTRAVENOUS ONCE OBJECTIVE: PHYSICAL EXAM: BP 147/72 Pulse 69 Temp 36.4 ?C (97.5 ?F) (Oral) Resp 18 SpO2 94% Affect: awake and oriented General Impression: appears comfortable Catheter sites are clean, non-tender, and dressing intact. Respiratory Exam: Respirations: Breathing appears normal Thoracostomy tube?: No Gastrointestinal Exam: Abdomen: incision c/d/I; ab binder in place NG?: No DATA: Lab Results Component Latest Ref Rng AND Units 02/27/2023 WBC 3.70 - 11.00 k/uL 6.06 RBC 4.20 - 6.00 m/uL 3.87 (L) Hemoglobin 13.0 - 17.0 g/dL 11.7 (L) Hematocrit 39.0 - 51.0 % 35.5 (L) MCV 80.0 - 100.0 fL 91.7 MCH 26.0 - 34.0 pg 30.2 MCHC 30.5 - 36.0 g/dL 33.0 RDW-CV 11.5 - 15.0 % 15.8 (H) Platelet Count 150 - 400 k/uL 157 MPV 9.0 - 12.7 fL 10.7 Neut% % 73.2 Abs Neut (ANC) 1.45 - 7.50 k/uL 4.44 Lymph% % 12.9 Abs Lymph 1.00 - 4.00 k/uL 0.78 (L) Moore% % 8.4 Abs Moore <0.87 k/uL 0.51 Eosin% % 4.5 Abs Eosin <0.46 k/uL 0.27 Baso% % 0.5 Abs Baso <0.11 k/uL 0.03 Immature Gran % % 0.5 IMMATURE GRANS (ABS) <0.10 k/uL 0.03 NRBC /100 WBC 0.0 Absolute nRBC <0.01 k/uL <0.01 DTYPE Auto Component Latest Ref Rng AND Units 02/27/2023 Glucose 74 - 99 mg/dL 101 (H) BUN 9 - 24 mg/dL 8 (L) Creatinine 0.73 - 1.22 mg/dL 0.55 (L) Sodium 136 - 144 mmol/L 142 Potassium 3.7 - 5.1 mmol/L 3.6 (L) Chloride 97 - 105 mmol/L 106 (H) CO2 22 - 30 (more content not included)... Normal [facility] HIGH SENSITIVITY TROPONIN To n 02-27-2023 HIGH SENSITIVITY PHYLLIS 14 ng/L High <12 [facility] Comment on above: Order Comment: John chan Type: BLOOD SPECIMEN [facility] Address: [address] [place] [id number] Result Comment: When assessing risk for acute coronary syndromes: In patients undergoing blood draw greater than or equal to 2 hours from symptom onset, with history of very low to moderate risk and non-ischemic ECG, an initial hs-Troponin T less than 12 ng/L AND a 1 hour delta hs-Troponin T less than 3 ng/L should be considered very low risk for 30 day MACE. Performed By: #### 2 4321-2, 51565-9 #### [facility] CLIA [id number] [place] [address] [place] Magnesium SerPl-mCncon 02-27 Magnesium [Mass/Vol] 2.1 mg/dL Normal 1.7-2.3 [facility] Comment on above: Order Comment: Speci men Type: BLOOD SPECIMEN [facility] Address: [address] [place] [address] Performed By: #### 2 4321-2, , 2776-10 #### [facility] CLIA [id number] [place] NURSING PROGon 02-27-2023 NURSING PROG HNO ID: [id number] Author: Latasha Evans RN Service: Nursing Author Type: Registered Nurse Type: Nursing Progress Note Filed: 02/27/2023 11:44 AM Note Text: Daily Note: 0930: Pt AANDOx2 - disoriented to place. Midline and transverse incision paty with glue. Bowel sounds active. FERNANDO to left and ride side - serosang output. Bilateral taps in place. Advanced to gi soft. External catheter in place. Call light in reach. 1030: Pt up to chair with 2 assist and walker. 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 bp 155/49, hr 71, spo2 94% nc 2.5L. would you like a troponin order. Thanks Vivian [phone], new orders received. 0139 paged surgery Hi, [email or web address] Tatiana, high sensitivity troponin was 14. Normal [facility] Phosphate SerPl-mCncon 02-27 Phosphate [Mass/Vol] 2.1 mg/dL Low 2.7-4.8 [facility] Comment on above: Order Comment: Speci men Type: BLOOD SPECIMEN [facility] Address: [place] [address] Performed By: #### 2 4321-2, , 2776-10 #### [facility] CLIA [id number] [place] [address] [place] THERAPY NTon 02-27-2023 THERAPY NT HNO ID: [id number] Author: Judith Hernandez, OTR/L Service: Occupational Therapy Author Type: Occupational Therapist Type: Therapy (PT/OT/Speech/Resp) Filed: 02/27/2023 5:06 PM Note Text: Occupational Therapy Treatment SERVICE DATE: 02/27/2023 SERVICE TIME: 1546 to 1640 ROOM: [address] [address] Scheduled Surgery For Left Inguinal Hernia, S/P Attempted Lcdi-Wzj-Wsqxm Repair Of Left Femoral Hernia, Excision Of Previously Implanted Mesh, Exploratory Laparotomy, Bilateral TAR, Implantation Of 30 x 30 cm Prolene Mesh 02/23/23 Recommended Discharge Disposition: Home Pt has adequate support and social structure for reasonably safe discharge home at current level. Anticipated Discharge Needs: Physical Assist at Home Physical Assist at Home for: Cleaning, Laundry, Meals, Shopping, Transportation Recommended Discharge Equipment: Elastic Shoe Laces, Grab Bars-Shower, Hand Held Shower, Long Handled Shoe Horn, Long Handled Sponge, Wheeled Walker, Protective Signal Repairer, Sock Aid, Shower Chair OT 6 Clicks Score: 17 Precautions/Activity Restrictions: Abdominal, Bed/Chair Alarm, Fall Risk, Lines/Tubes/Drains, Diet Restrictions, Other: See Comments Current Hospital Course: Scheduled Surgery For Left Inguinal Hernia, S/P Attempted Xgyz-Ahi-Vgeah Repair Of Left Femoral Hernia, Excision Of Previously Implanted Mesh, Exploratory Laparotomy, Bilateral TAR, Implantation Of 30 x 30 cm Prolene Mesh 02/23/23 Reason for Hospital Admission: Scheduled Surgery For Left Inguinal Hernia, S/P Attempted Gpci-Jpc-Vktaf Repair Of Left Femoral Hernia, Excision Of Previously Implanted Mesh, Exploratory Laparotomy, Bilateral TAR, Implantation Of 30 x 30 cm Prolene Mesh 02/23/23 Relevant Past Medical History: MIHIR On CPAP, Primary HTN, Prostate CA, Gout, Refer to Epic Response to Therapy Interventions: Good Participation in Activities Continued Skilled Needs Due to: Safety Concerns, Functional Impairment Occupational Therapy Problem List: Pain, Safety Deficits, Impaired Self Care, Decreased Activity Tolerance, Decreased Strength, Functional Mobility Impairment Cognition/Communication Deficits Responsiveness: Alert, Awake Follows Commands: 3-step Commands, Cueing Needed Cueing to Follow Commands: Minimum Treatment Interventions: Education, Self Care/Home Management, Energy Conservation Training, Strengthening, Functional Mobility Training Home Environment Patient Lives With: Significant Other, Other: See Comment Comments: In one level home in [place], [place] Assistance Available: PRN Entry To Home: Stairs, With Rail Number Of Stairs Into Home: 3 Number Of Stairs To Bed/Bath: 0 Tub/Shower Type: Tub/Shower Laundry: 1st level Equipment Owned: Hand Held Shower, Walker- Standard Prior Functional Level: Within Functional Limits Prior Functional Level Comments: Per Pt, he was independent with ADL's, shares cleaning, and laundry, and his girlfriend completes the meal prep, and grocery shopping. Pt ambulated independently prior to admit, and drives. Drives. No falls. 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[place], [place] Occupational Factors Life Roles: Retired, Spouse/Significant Other Identified Strengths: Good Support System, Involvement in Hobbies/Leisure Activities, Positive Coping Strategies, Self-Regulation, Effective Communication Skills, Strong Awareness of Deficit(s), Open to Adaptive Equipment/Strategies, Motivation, Safety Awareness, Health Literacy, Memory/Attention, Follows Multi-Step Commands, Problem-Solving Skills, Access to Healthcare Identified Barriers: Health Maintenance, Medical Acuity/Chronic Condition CURRENT FUNCTIONAL STATUS: Most recent performance Current Activities of Daily Living Assist Level Additional Information Feeding Modified Independent Grooming Stand By Assistance Bathing Upper Body Stand By Assistance Bathing Lower Body Moderate Assistance Dressing Upper Body Minimal Assistance Dressing Lower Body Moderate Assistance Toileting Maximal Assistance Instrumental Activities of Daily Living Assist Level Additional Information Meal/Beverage Prep Cleaning Laundry Medication Management with Strategies Functional Mobility Assist Level Additional Information Rolling Moderate Assistance, Additional Information Supine to Sit Moderate Assistance, Additional Information to lift LE's into bed Sit to Supine Scooting Minimal Assistance Sit to Stand Moderate Assistance, Additional Information from low bedside chair assist X 2 for line management Stand to Sit Minimal Assistance, Additional Information X 2 for safety only Bed to Chair Minimal Assistance, Additional Information Stepping Wheeled Walker X2 for line management and safety Toilet/Commode Shower Functional Mobility Minimal Assistance, Additional Information Wheeled Walker (more content not included)... [facility] THERAPY NT HNO ID: [id number] Author: Ree Gardner, PT Service: Physical Therapy Author Type: Physical Therapist Type: Therapy (PT/OT/Speech/Resp) Filed: 02/27/2023 12:36 PM Note Text: Physical Therapy Treatment SERVICE DATE: 02/27/2023 SERVICE TIME: 1100 to 1138 ROOM: [address] [address] Recommended Discharge Disposition: Subacute/SNF Recommended Discharge Disposition Comments: vs home with 24/7 assist Recommended Discharge Disposition Due to: Patient requires daily, facility-based rehabilitation from at least one discipline due to:, decline in functional status requiring daily skilled care, ongoing intervention of multiple therapy disciplines Anticipated Discharge Needs: Physical Assist at Home Physical Assist at Home for: Cleaning, Laundry, Meals, Shopping, Transportation Recommended Discharge Equipment: Wheeled Walker PT 6 Clicks Score: 16 Precautions/Activity Restrictions: Abdominal, Bed/Chair Alarm, Fall Risk, Lines/Tubes/Drains, Diet Restrictions, Other: See Comments Current Hospital Course: Scheduled Surgery For Left Inguinal Hernia, S/P Attempted Oqcx-Jxq-Ggqkr Repair Of Left Femoral Hernia, Excision Of Previously Implanted Mesh, Exploratory Laparotomy, Bilateral TAR, Implantation Of 30 x 30 cm Prolene Mesh 02/23/23 Reason for Hospital Admission: Scheduled Surgery For Left Inguinal Hernia, S/P Attempted Ccai-Ric-Zjpre Repair Of Left Femoral Hernia, Excision Of Previously Implanted Mesh, Exploratory Laparotomy, Bilateral TAR, Implantation Of 30 x 30 cm Prolene Mesh 02/23/23 Relevant Past Medical History: MIHIR On CPAP, Primary HTN, Prostate CA, Gout, Refer to Epic Response to Therapy Interventions: Low Activity Tolerance, Multiple Ongoing Medical Issues, Needs Frequent Redirection or Reinstruction Physical Therapy Problem List: Decreased Strength, Functional Mobility Impairment, Balance Impaired Treatment Interventions: Education, Strengthening, Functional Mobility Training, Balance Training Plan for Next Visit: Bed Mobility, Gait Training, Sit to Stand Transfers Home Environment Patient Lives With: Significant Other, Other: See Comment Comments: In one level home in [place], [place] Assistance Available: PRN Entry To Home: Stairs, With Rail Number Of Stairs Into Home: 3 Number Of Stairs To Bed/Bath: 0 Tub/Shower Type: Tub/Shower Laundry: 1st level Equipment Owned: Hand Held Shower, Walker- Standard Prior Functional Level: Within Functional Limits Prior Functional Level Comments: Per Pt, he was independent with ADL's, shares cleaning, and laundry, and his girlfriend completes the meal prep, and grocery shopping. Pt ambulated independently prior to admit, and drives. Drives. No falls. Baseline Cognition: Oriented to self, Oriented to place, Oriented to time, Oriented to situation Patient Report: There was a cat in here this morning. I took a picture CURRENT FUNCTIONAL STATUS: Most recent performance Current Functional Mobility Assist Level Additional Information Rolling Supine to Sit Moderate Assistance (x 2) Sit to Supine Moderate Assistance (x 2) Scooting Sit to Stand Minimal Assistance Stand to Sit Minimal Assistance Bed to Chair Minimal Assistance (x 2) Bed To Chair Transfer Type: Stepping Bed To Chair Transfer Equipment: Wheeled Walker Toilet/Commode Gait Minimal Assistance Gait Device: Wheeled Walker Gait Distance (feet): 10 Stairs Curb Step Car Transfer Blank barrera indicate activity not attempted General Deviations/Observations: Elvira decreased, Flexed trunk posture, Narrow Base of Support, Step length decreased -HLM: 6: Walk 10 steps or more Learning/Educational Needs: Discharge Plan, Functional Activities/Mobility, Plan of Care, Changes in Plan of Care, Safety Goals for Plan of Care: Patient/Caregiver Goals: Go Home Goals: Patient will demonstrate progress to optimize functional mobility, maximize activity tolerance and endurance to maximize function upon discharge. Transfer Supine to/from Sit with: Contact Guard Assistance Transfer Sit to/from Stand with: Contact Guard Assistance Ambulate with: Contact Guard Assistance Distance: 50 Device: Wheeled Walker Progress Toward Goals: Progressing slower than expected Due To: Medical acuity Rehab Potential: Good Patient will be discontinued from Physical Therapy when no further skilled needs are identified in this setting. PLAN: PT Frequency: 4 times per week ((1)) Plan of Care developed with: Patient TREATMENT INTERVENTIONS: Therapy Diagnosis: Reduced mobility-other Interventions Provided: Therapeutic Exercise (64130), Therapeutic Activity (99985), Gait Training (04911) Therapeutic Exercise (77852) Treatment Minutes: 15 $ Therapeutic Exercise (54461) Billed Units: 1 unit Therapeutic Activity (66451) Treatment Minutes: 15 $ Therapeutic Activity (43868) Billed Units: 1 unit Gait Training (50050) Treatment Minutes: 8 $ Gait Training (47830) Billed Units: 1 unit (more content not included)... Normal [facility] Basic metabolic 2000 panelon 02-26-2023 Anion gap [Moles/Vol] 9 mmol/L Normal -18 [facility] Comment on above: Order Comment: Speci men Type: BLOOD SPECIMENOrdering Facility: [facility] Address: [address] Performed By: #### 2 4321-2, , 2776-10 ####[facility]ORYCLIA [id number] [address] [id number] [place] Calcium [Mass/Vol] 8.5 mg/dL Normal 8.5-10.2 [facility] Comment on above: Order Comment: Speci men Type: BLOOD SPECIMENOrdering Facility: [facility] Address: [address] [address] Performed By: #### 2 4321-2, , 2776-10 ####[facility]ATORYCLIA [id number] [place] [address] [place] Chloride [Moles/Vol] 104 mmol/L Normal 97-105 [facility] Comment on above: Order Comment: Speci men Type: BLOOD SPECIMENOrdering Facility: [facility] Address: [address] [address] Performed By: #### 2 4320-2, , 2776-10 ####[facility]ATORYCLIA [id number] [address] [id number] [place] CO2 [Moles/Vol] 25 mmol/L Normal 22-30 [facility] Comment on above: Order Comment: Speci men Type: BLOOD SPECIMENOrdering Facility: [facility] Address: [address] [address] Performed By: #### 2 4320-2, , 2776-10 ####[facility]ORYCLIA [id number] [place] [id number] [place] Creatinine [Mass/Vol] 0.55 mg/dL Low 0.73-1.22 [facility] Comment on above: Order Comment: Speci men Type: BLOOD SPECIMENOrdering Facility: [facility] Address: [address] [address] Performed By: #### 2 4321-2, , 2776-10 ####[facility]ORYCLIA [id number] [place] [address] [place] ESTIMATED GLOMERULAR FILTRATION RATE 103 mL/min/1.73m??? Normal >=60 [facility] Comment on above: Order Comment: John chan Type: BLOOD SPECIMENOrdering Facility: [facility] Address: [address] [place] [address] Result Comment: Trnea mated Glomerular Filtration Rate (eGFR) is calculated using the 2020 CKD-EPI creatinine equation. This equation utilizes serum creatinine, sex, and age as parameters. The creatinine assay has traceable calibration to isotope dilution-mass spectrometry. Refer to KDIGO guidelines for clinical interpretation. In patients with unstable renal function, e.g. those with acute kidney injury, the eGFR may not accurately reflect actual GFR. Performed By: #### 2 4321-2, , 2776-10 ####[facility]ORYCLIA [id number] [place] [address] [place] Glucose [Mass/Vol] 105 mg/dL High 74-99 [facility] Comment on above: Order Comment: John chan Type: BLOOD SPECIMENOrdering Facility: [facility] Address: [address] [place] [address] Result Comment: The [place] [employer] (ADA) provides guidance for cutoff values for fasting glucose and random glucose. The ADA defines fasting as no caloric intake for at least 8 hours. Fasting plasma glucose results between 100 to 125 mg/dL indicate increased risk for diabetes (prediabetes). Fasting plasma glucose results greater than or equal to 126 mg/dL meet the criteria for diagnosis of diabetes. In the absence of unequivocal hyperglycemia, results should be confirmed by repeat testing. In a patient with classic symptoms of hyperglycemia or hyperglycemic crisis, random plasma glucose results greater than or equal to 200 mg/dL meet the criteria for diagnosis of diabetes. Reference: Standards of Medical Care in Diabetes 2016, [place] [employer]. Diabetes Care. 2016.39(Suppl 1). Performed By: #### 2 4321-2, , 2776-10 ####[facility] LABORATORYCLIA [id number] [place] [id number] [place] Potassium [Moles/Vol] 3.2 mmol/L Low 3.7-5.1 [facility] Comment on above: Order Comment: Speci men Type: BLOOD SPECIMENOrdering Facility: [facility] Address: [address] [address] Performed By: #### 2 4321-2, , 2776-10 ####[facility] LABORATORYCLIA [id number] [place] [address] [place] [facility] Sodium [Moles/Vol] 138 mmol/L Normal 136-144 [facility] Comment on above: Order Comment: Speci men Type: BLOOD SPECIMENOrdering Facility: [facility] Address: [address] [address] Performed By: #### 2 4321-2, , 2776-10 ####[facility] LABORATORYCLIA [id number] [address] [place] Urea nitrogen [Mass/Vol] 9 mg/dL Normal 9-24 [facility] Comment on above: Order Comment: Speci men Type: BLOOD SPECIMENOrdering Facility: [facility] Address: [address] [address] Performed By: #### 2 4320-2, , 2776-10 ####[facility] LABORATORYCLIA [id number] [place] [address] [place] CBC W Auto Differential pane l (Bld)on 02-26-2023 Basophils (Bld) [#/Vol] 0.03 10*3/uL Normal <0.11 [facility] Comment on above: Order Comment: Speci men Type: BLOOD SPECIMEN [facility] Address: [address] [address] Performed By: #### 5 7021-8 #### [facility] CLIA [id number] [place] Basophils/100 WBC (Bld) 0.4 % Normal [facility] Comment on above: Order Comment: Speci men Type: BLOOD SPECIMEN [facility] Address: [address] [address] Performed By: #### 5 7021-8 #### [facility] CLIA [id number] [address] [place] [address] [place] Differential cell count method Nom (Bld) Auto Normal [facility] Comment on above: Order Comment: Speci men Type: BLOOD SPECIMEN [facility] Address: [address] [address] Performed By: #### 5 7021-8 #### [facility] CLIA [id number] [address] [place] [address] [place] Eosinophils (Bld) [#/Vol] 0.21 10*3/uL Normal <0.46 [facility] Comment on above: Order Comment: Speci men Type: BLOOD SPECIMEN [facility] Address: [address] [place] [address] Performed By: #### 5 7021-8 #### [facility] CLIA [id number] [address] [place] [address] [place] Eosinophils/100 WBC (Bld) 2.6 % Normal [facility] Comment on above: Order Comment: Speci men Type: BLOOD SPECIMEN [facility] Address: [address] [place] [address] Performed By: #### 5 7021-8 #### [facility] CLIA [id number] [address] [place] [address] [place] Erythrocyte distribution width (RBC) [Ratio] 15.5 % High 11.5-15.0 [facility] Comment on above: Order Comment: Speci men Type: BLOOD SPECIMEN [facility] Address: [address] [place] [address] Performed By: #### 5 7021-8 #### [facility] CLIA [id number] [address] [place] [address] [place] Hematocrit (Bld) [Volume fraction] 34.6 % Low 39.0-51.0 [facility] Comment on above: Order Comment: Speci men Type: BLOOD SPECIMEN [facility] Address: [address] [place] [address] Performed By: #### 5 7021-8 #### [facility] CLIA [id number] [place] [address] [place] Hemoglobin (Bld) [Mass/Vol] 11.8 g/dL Low 13.0-17.0 [facility] Comment on above: Order Comment: Speci men Type: BLOOD SPECIMEN [facility] Address: [address] [place] [address] Performed By: #### 5 7021-8 #### [facility] CLIA [id number] [address] [place] [address] [place] Immature granulocytes (Bld) [#/Vol] 0.03 10*3/uL Normal <0.10 [facility] Comment on above: Order Comment: Speci men Type: BLOOD SPECIMEN [facility] Address: [address] [place] [address] Performed By: #### 5 7021-8 #### [facility] CLIA [id number] [address] [place] [address] [place] Immature granulocytes/100 WBC (Bld) 0.4 % Normal [facility] Comment on above: Order Comment: Speci men Type: BLOOD SPECIMEN [facility] Address: [address] [place] [address] Performed By: #### 5 7021-8 #### [facility] CLIA [id number] [address] [place] [address] [place] Lymphocytes (Bld) [#/Vol] 0.71 10*3/uL Low 1.00-4.00 [facility] Comment on above: Order Comment: Speci men Type: BLOOD SPECIMEN [facility] Address: [address] [place] [address] Performed By: #### 5 7021-8 #### [facility] CLIA [id number] [address] [place] [address] [place] Lymphocytes/100 WBC (Bld) 8.9 % Normal [facility] Comment on above: Order Comment: Speci men Type: BLOOD SPECIMEN [facility] Address: [address] [place] [address] Performed By: #### 5 7021-8 #### [facility] CLIA [id number] [address] [place] [address] STATES [facility] MCH (RBC) [Entitic mass] 30.6 pg Normal 26.0-34.0 [facility] Comment on above: Order Comment: Speci men Type: BLOOD SPECIMEN [facility] Address: [address] [place] [address] Performed By: #### 5 7021-8 #### [facility] CLIA [id number] [address] [place] [address] [place] MCHC (RBC) [Mass/Vol] 34.1 g/dL Normal 30.5-36.0 [facility] Comment on above: Order Comment: Speci men Type: BLOOD SPECIMEN [facility] Address: [address] [place] [address] Performed By: #### 5 7021-8 #### [facility] CLIA [id number] [address] [place] [address] STATES [facility] MCV (RBC) [Entitic vol] 89.6 fL Normal 80.0-100.0 [facility] Comment on above: Order Comment: Speci men Type: BLOOD SPECIMEN [facility] Address: [address] [place] [address] Performed By: #### 5 7021-8 #### [facility] CLIA [id number] [address] [place] [address] [place] Monocytes (Bld) [#/Vol] 0.62 10*3/uL Normal <0.87 [facility] Comment on above: Order Comment: Speci men Type: BLOOD SPECIMEN [facility] Address: [address] [place] [address] Performed By: #### 5 7021-8 #### [facility] CLIA [id number] [address] [place] [address] Monocytes/100 WBC (Bld) 7.8 % Normal [facility] Comment on above: Order Comment: Speci men Type: BLOOD SPECIMEN [facility] Address: [address] [address] Performed By: #### 5 7021-8 #### [facility] CLIA [id number] [address] [place] [address] [place] Neutrophils (Bld) [#/Vol] 6.37 10*3/uL Normal 1.45-7.50 [facility] Comment on above: Order Comment: Speci men Type: BLOOD SPECIMEN [facility] Address: [address] [place] [address] Performed By: #### 5 7021-8 #### [facility] CLIA [id number] [address] [place] [address] [place] Neutrophils/100 WBC (Bld) 79.9 % Normal [facility] Comment on above: Order Comment: Speci men Type: BLOOD SPECIMEN [facility] Address: [address] [place] [address] Performed By: #### 5 7021-8 #### [facility] CLIA [id number] [address] [place] [address] [place] Nucleated RBC (Bld) [#/Vol] 10*3/uL Normal <0.01 [facility] Comment on above: Order Comment: Speci men Type: BLOOD SPECIMEN [facility] Address: [address] [place] [address] Performed By: #### 5 7021-8 #### [facility] CLIA [id number] [address] [place] [address] [place] Nucleated RBC/100 WBC (Bld) [Ratio] 0.0 /100 WBC Normal [facility] Comment on above: Order Comment: Speci men Type: BLOOD SPECIMEN [facility] Address: [address] [place] [address] Performed By: #### 5 7021-8 #### [facility] CLIA [id number] [address] [place] [address] [place] Platelet mean volume (Bld) [Entitic vol] 11.0 fL Normal 9.0-12.7 [facility] Comment on above: Order Comment: Speci men Type: BLOOD SPECIMEN [facility] Address: [address] [place] [address] Performed By: #### 5 7021-8 #### [facility] CLIA [id number] [place] [address] [place] Platelets (Bld) [#/Vol] 131 10*3/uL Low 150-400 [facility] Comment on above: Order Comment: Speci men Type: BLOOD SPECIMEN [facility] Address: [address] [place] [address] Performed By: #### 5 7021-8 #### [facility] CLIA [id number] [address] [place] [address] [place] RBC (Bld) [#/Vol] 3.86 10*6/uL Low 4.20-6.00 [facility] Comment on above: Order Comment: Speci men Type: BLOOD SPECIMEN [facility] Address: [address] [place] [address] Performed By: #### 5 7021-8 #### [facility] CLIA [id number] [address] [place] [address] [place] WBC (Bld) [#/Vol] 7.97 10*3/uL Normal 3.70-11.00 [facility] Comment on above: Order Comment: Speci men Type: BLOOD SPECIMEN [facility] Address: [address] [place] [address] Performed By: #### 5 7021-8 #### [facility] CLIA [id number] [address] [place] [address] [place] CONSULT PROGon 02-26-2023 CONSULT PROG HNO ID: [id number] Author: Lakeisha Mota APRN.[employer]ARKER [employer] PATCHER Service: Pain Management Author Type: Nurse Practitioner Type: Consult Progress Note Filed: 02/26/2023 5:00 PM Note Text: PERIPHERAL NERVE CATHETER PROGRESS NOTE PATIENT NAME: Yoni Ramirez SERVICE DATE: 02/26/2023 SERVICE TIME: 8:55 AM ASSESSMENT Yoni Ramirez is a 77 year old male with history of of arthritis, BPH, gout, HTN, hypercholesteremia, prostate cancer (surgery and radiation treatment), diverticulosis, urinary incontinence who was admitted on 02/23/2023 for left inguinal hernia repair, found to have large L femoral hernia s/p bilateral open TAR, Excision of previously implanted mesh, Implantation of 30 x 30 cm prolene mesh on 02/23 with bilateral RS and TAP PNC placed to aid in post op pain. This morning Mr. Ramirez is resting in bed, he reports abd soreness, he states some confusion at times but he is currently oriented to self and place. at bedside. Bilateral TAP sites without signs or symptoms of infection, no erythema, tenderness, drainage, or warmth. He was started on clears, denies nausea or vomiting. PLAN/Recs: Continue bilateral TAPs at 0/6/30/2 each will remove when tolerating orals Changed Acetaminophen to 650 mg PO Q 6 h Decreased Oxycodone to 2.5-5 mg PO Q 4 H PRN for moderate to severe pain Continue bowel regimen per Gen Sx Encourage ambulation and OOB as tolerated The plan was discussed in detail with patient +/- family, bedside RN, APMS staff and primary service, who expressed agreement, understanding and comfort with the plan. Thank you for including us in his care. Please call us with any questions or concerns. [facility]MS will continue to follow. SUBJECTIVE CHIEF COMPLAINT: Gen Sx PRIMARY SERVICE: General Surgery HPI: 77 years old M POD# 3 s/p left inguinal hernia repair, found to have large L femoral hernia s/p bilateral open TAR, Excision of previously implanted mesh, Implantation of 30 x 30 cm prolene meshwith bilateral RS and TAP PNC placed to aid in post op pain. Pain level is 0 at rest 2 with ambulation on a scale of 0-10. Is the patient tolerating Physical Therapy?: yes Pain at surgical site? Min Character: aching Duration: intermittent Radiation: No Relieved: Yes - BTAPS Is patient satisfied with pain control: Yes Overnight Events: None Overnight Pain Interventions: no Allergy: ALLERGIES ALLERGIES No Known Allergies MEDICATIONS: I have interrogated the BTAP pump for the correct settings and solution: Yes. Solution Ropivacaine 0.2%, rate 12 ml/hr.both Adjuvant Pain Medication: See below. Current Facility-Administered Medications Medication Dose Route Frequency lactated ringers iv infusion 50 mL/hr INTRAVENOUS CONTINUOUS ondansetron (PF) 4 mg injection (ZOFRAN) 4 mg INTRAVENOUS q 6 H PRN carvedilol 6.25 mg tab(s) (COREG) 6.25 mg ORAL BID w MEALS atorvastatin 20 mg tab(s) (LIPITOR) 20 mg ORAL DAILY enoxaparin 40 mg injection (LOVENOX) 40 mg SUBCUTANEOUS q 24 HR ropivacaine nerve block 0.2% (2 mg/mL) - 200 mL PERIPHERAL NERVE CATHETER CONTINUOUS ropivacaine nerve block 0.2% (2 mg/mL) - 200 mL PERIPHERAL NERVE CATHETER CONTINUOUS NaCl 0.9% iv flush bag 20 mL INTRAVENOUS PRN NaCl 0.9% iv flush bag 20 mL INTRAVENOUS PRN allopurinol 300 mg tab(s) (ZYLOPRIM) 300 mg ORAL DAILY acetaminophen 650 mg tab(s) (TYLENOL) 650 mg ORAL q 6 H oxyCODONE IR 2.5-5 mg tab(s) (ROXICODONE) 2.5-5 mg ORAL q 4 H PRN OBJECTIVE: PHYSICAL EXAM: BP 153/68 Pulse 67 Temp 36.9 ?C (98.4 ?F) (Oral) Resp 16 SpO2 93% Affect: awake and oriented General Impression: appears comfortable Catheter sites are clean, non-tender, and dressing intact. Respiratory Exam: Respirations: Breathing appears normal Thoracostomy tube?: No Gastrointestinal Exam: Abdomen: incision c/d/i NG?: No DATA: Lab Results Component Latest Ref Rng AND Units 02/26/2023 Glucose 74 - 99 mg/dL 105 (H) BUN 9 - 24 mg/dL 9 Creatinine 0.73 - 1.22 mg/dL 0.55 (L) Sodium 136 - 144 mmol/L 138 Potassium 3.7 - 5.1 mmol/L 3.2 (L) Chloride 97 - 105 mmol/L 104 CO2 22 - 30 mmol/L 25 Anion Gap 9 - 18 mmol/L 9 Calcium 8.5 - 10.2 mg/dL 8.5 eGFR >=60 mL/min/1.73mA? 103 Component Latest Ref Rng AND Units 02/26/2023 WBC 3.70 - 11.00 k/uL 7.97 RBC 4.20 - 6.00 m/uL 3.86 (L) Hemoglobin 13.0 - 17.0 g/dL 11.8 (L) Hematocrit 39.0 - 51.0 % 34.6 (L) MCV 80.0 - 100.0 fL 89.6 MCH 26.0 - 34.0 pg 30.6 MCHC 30.5 - 36.0 g/dL 34.1 RDW-CV 11.5 - 15.0 % 15.5 (H) Platelet Count 150 - 400 k/uL 131 (L) MPV 9.0 - 12.7 fL 11.0 Neut% % 79.9 Abs Neut (ANC) 1.45 - 7.50 k/uL 6.37 Lymph% % 8.9 Abs Lymph 1.00 - 4.00 k/uL 0.71 (L) Moore% % 7.8 Abs Moore <0.87 k/uL 0.62 Eosin% % 2.6 Abs Eosin <0.46 k/uL 0.21 Baso% % 0.4 Abs Baso <0.11 k/uL 0.03 Immature Gran % % 0.4 IMMATURE GRANS (ABS) <0.10 k/uL 0.03 NRBC /100 WBC 0.0 Absolute nRBC <0.01 k/uL <0.01 (more content not included)... Normal [facility] Magnesium SerPl-mCncon 02-26 Magnesium [Mass/Vol] 1.8 mg/dL Normal 1.7-2.3 [facility] Comment on above: Order Comment: Speci men Type: BLOOD SPECIMENOrdering Facility: [facility] Address: [address] [place] [address] Performed By: #### 2 4321-2, 02527-2, 2777-1 ####[facility] [id number] [address] [place] NURSING PROGon 02-26-2023 NURSING PROG HNO ID: [id number] Author: Christie Mayberry RN Service: Nursing Author Type: Registered Nurse Type: Nursing Progress Note Filed: 02/26/2023 2:15 AM Note Text: 2036: Upon entering room pt confused on place thought he was near a railroad track at someone's house and playing a game. Pt reoriented. VSS and neuros intact. Surgery paged to make aware. 0213:Potassium yesterday morning was 3.4 and phos 1.4. Text page sent to surgery for further orders. Normal [facility] Phosphate SerPl-mCncon 02-26 Phosphate [Mass/Vol] 1.4 mg/dL Low 2.7-4.8 [facility] Comment on above: Order Comment: Speci men Type: BLOOD SPECIMENOrdering Facility: [facility] Address: [facility] [place] [place] [address] Performed By: #### 2 4321-2, 36982-7, 2777-1 ####[facility] [id number] [address] THERAPY NTon 02-26-2023 THERAPY NT HNO ID: [id number] Author: Ree Gardner, PT Service: Physical Therapy Author Type: Physical Therapist Type: Therapy (PT/OT/Speech/Resp) Filed: 02/26/2023 11:44 AM Note Text: Physical Therapy Treatment SERVICE DATE: 02/26/2023 SERVICE TIME: 1027 to 1051 ROOM: [place] [address] Recommended Discharge Disposition: Subacute/SNF Recommended Discharge Disposition Comments: vs home. Pt continuing to demonstrate with poor tolerance to activity requiring ample assist with all functional mobility. Pt reports usually responding poorly to anesthesia therefore will require continued assessment to determine approrpiate d/c Recommended Discharge Disposition Due to: Patient requires daily, facility-based rehabilitation from at least one discipline due to:, decline in functional status requiring daily skilled care, ongoing intervention of multiple therapy disciplines Anticipated Discharge Needs: Physical Assist at Home Physical Assist at Home for: Cleaning, Laundry, Meals, Shopping, Transportation Recommended Discharge Equipment: Wheeled Walker PT 6 Clicks Score: 16 Precautions/Activity Restrictions: Abdominal, Bed/Chair Alarm, Fall Risk, Lines/Tubes/Drains, Diet Restrictions, Other: See Comments Current Hospital Course: Scheduled Surgery For Left Inguinal Hernia, S/P Attempted Dtbo-Mjy-Bfekm Repair Of Left Femoral Hernia, Excision Of Previously Implanted Mesh, Exploratory Laparotomy, Bilateral TAR, Implantation Of 30 x 30 cm Prolene Mesh 02/23/23 Reason for Hospital Admission: Scheduled Surgery For Left Inguinal Hernia, S/P Attempted Gazf-Njb-Kudrh Repair Of Left Femoral Hernia, Excision Of Previously Implanted Mesh, Exploratory Laparotomy, Bilateral TAR, Implantation Of 30 x 30 cm Prolene Mesh 02/23/23 Relevant Past Medical History: MIHIR On CPAP, Primary HTN, Prostate CA, Gout, Refer to Epic Response to Therapy Interventions: Low Activity Tolerance Physical Therapy Problem List: Decreased Strength, Functional Mobility Impairment, Balance Impaired Treatment Interventions: Education, Strengthening, Functional Mobility Training, Balance Training Plan for Next Visit: Bed Mobility, Gait Training, Sit to Stand Transfers Home Environment Patient Lives With: Significant Other, Other: See Comment Comments: In one level home in [place], [place] Assistance Available: PRN Entry To Home: Stairs, With Rail Number Of Stairs Into Home: 3 Number Of Stairs To Bed/Bath: 0 Tub/Shower Type: Tub/Shower Laundry: 1st level Equipment Owned: Hand Held Shower, Walker- Standard Prior Functional Level: Within Functional Limits Prior Functional Level Comments: Per Pt, he was independent with ADL's, shares cleaning, and laundry, and his girlfriend completes the meal prep, and grocery shopping. Pt ambulated independently prior to admit, and drives. Drives. No falls. Baseline Cognition: Oriented to self, Oriented to place, Oriented to time, Oriented to situation Patient Report: I thought I was sharing my room with another man but I guess not CURRENT FUNCTIONAL STATUS: Most recent performance Current Functional Mobility Assist Level Additional Information Rolling Supine to Sit Moderate Assistance (x 2) Sit to Supine Moderate Assistance (x 2) Scooting Sit to Stand Minimal Assistance With standing, pt reports feeling whoozy deemed unsafe to step toward chair at this time. Pt returned to supine for comfort; PCNA aware Stand to Sit Maximal Assistance Bed to Chair Maximal Assistance Bed To Chair Transfer Type: Stepping Bed To Chair Transfer Equipment: Wheeled Walker Toilet/Commode Gait Stairs Curb Step Car Transfer Blank barrera indicate activity not attempted JH-HLM: 5: Standing (1 or more minutes) Learning/Educational Needs: Discharge Plan, Functional Activities/Mobility, Plan of Care, Changes in Plan of Care, Safety Goals for Plan of Care: Patient/Caregiver Goals: Go Home Goals: Patient will demonstrate progress to optimize functional mobility, maximize activity tolerance and endurance to maximize function upon discharge. Transfer Supine to/from Sit with: Contact Guard Assistance Transfer Sit to/from Stand with: Contact Guard Assistance Ambulate with: Contact Guard Assistance Distance: 50 Device: Wheeled Walker Progress Toward Goals: Progressing slower than expected Due To: Medical acuity Rehab Potential: Good Patient will be discontinued from Physical Therapy when no further skilled needs are identified in this setting. PLAN: PT Frequency: 4 times per week ((1)) Plan of Care developed with: Patient TREATMENT INTERVENTIONS: Therapy Diagnosis: Reduced mobility-other, Muscle Weakness (generalized) Interventions Provided: Therapeutic Activity (63339) Therapeutic Activity (67903) Treatment Minutes: 24 $ Therapeutic Activity (80967) Billed Units: 2 units Training AND Education Provided in: Anatomy and Impact on Deficits, Benefits of In-Hospital Mobility, Disease Spe (more content not included)... Normal [facility] Basic metabolic 2000 panelon 02-25-2023 Anion gap [Moles/Vol] 9 mmol/L Normal 9-18 [facility] Comment on above: Order Comment: John chan Type: BLOOD SPECIMENOrdering Facility: [facility] Address: [address] [place] [address] Performed By: #### 1 9123-9, 2777, 95428-4 ####[facility] [id number] [place] [address] [place] Calcium [Mass/Vol] 8.6 mg/dL Normal 8.5-10.2 [facility] Comment on above: Order Comment: John chan Type: BLOOD SPECIMENOrdering Facility: [facility] Address: [address] [place] [address] Performed By: #### 1 9123-9, 2777, 53492-0 ####[facility] [id number] [place] [id number] [place] Chloride [Moles/Vol] 106 mmol/L High 97-105 [facility] Comment on above: Order Comment: Speci men Type: BLOOD SPECIMENOrdering Facility: [facility] Address: [address] [place] [address] Performed By: #### 1 9123-9, 2777, 02539-5 ####[facility]ORYCLIA [id number] [place] [address] [place] CO2 [Moles/Vol] 24 mmol/L Normal 22-30 [facility] Comment on above: Order Comment: Speci men Type: BLOOD SPECIMENOrdering Facility: [facility] Address: [address] [address] Performed By: #### 1 9123-9, 2777-, 85879-8 ####[facility]ORY[facility]IA [id number] [place] [id number] [place] Creatinine [Mass/Vol] 0.57 mg/dL Low 0.73-1.22 [facility] Comment on above: Order Comment: Speci men Type: BLOOD SPECIMENOrdering Facility: [facility] Address: [address] [place] [address] Performed By: #### 1 9123-9, 2777, 90540-7 ####[facility]ORYCLIA [id number] [place] [id number] [place] ESTIMATED GLOMERULAR FILTRATION RATE 102 mL/min/1.73m??? Normal >=60 [facility] Comment on above: Order Comment: Speci men Type: BLOOD SPECIMENOrdering Facility: [facility] Address: [address] [place] [address] Result Comment: Trena mated Glomerular Filtration Rate (eGFR) is calculated using the 2020 CKD-EPI creatinine equation. This equation utilizes serum creatinine, sex, and age as parameters. The creatinine assay has traceable calibration to isotope dilution-mass spectrometry. Refer to KDIGO guidelines for clinical interpretation. In patients with unstable renal function, e.g. those with acute kidney injury, the eGFR may not accurately reflect actual GFR. Performed By: #### 1 9123-9, 2777-, 51619-1 ####[facility]ORYCLIA [id number] [place] [id number] [place] Glucose [Mass/Vol] 163 mg/dL High 74-99 [facility] Comment on above: Order Comment: Speci men Type: BLOOD SPECIMENOrdering Facility: [facility] Address: [address] [place] [address] Result Comment: The [place] Diabetes Association (ADA) provides guidance for cutoff values for fasting glucose and random glucose. The ADA defines fasting as no caloric intake for at least 8 hours. Fasting plasma glucose results between 100 to 125 mg/dL indicate increased risk for diabetes (prediabetes). Fasting plasma glucose results greater than or equal to 126 mg/dL meet the criteria for diagnosis of diabetes. In the absence of unequivocal hyperglycemia, results should be confirmed by repeat testing. In a patient with classic symptoms of hyperglycemia or hyperglycemic crisis, random plasma glucose results greater than or equal to 200 mg/dL meet the criteria for diagnosis of diabetes. Reference: Standards of Medical Care in Diabetes 2016, [place] [employer] Association. Diabetes Care. 2016.39(Suppl 1). Performed By: #### 1 9123-9, 2777-, 81343-3 ####[facility]ORY[facility]IA [id number] [place] [address] [place] Potassium [Moles/Vol] 3.4 mmol/L Low 3.7-5.1 [facility] Comment on above: Order Comment: Speci rocio Type: BLOOD SPECIMENOrdering Facility: [facility] Address: [address] [address] Performed By: #### 1 9123-9, 2777, 62434-8 ####[facility] [id number] [place] [address] [place] Sodium [Moles/Vol] 139 mmol/L Normal 136-144 [facility] Comment on above: Order Comment: John chan Type: BLOOD SPECIMENOrdering Facility: [facility] Address: [address] [address] Performed By: #### 1 9123-9, 2777, 53116-9 ####[facility] [id number] [place] [address] [place] Urea nitrogen [Mass/Vol] 9 mg/dL Normal 9-24 [facility] Comment on above: Order Comment: Josyi men Type: BLOOD SPECIMENOrdering Facility: [facility] Address: [address] [address] Performed By: #### 1 9123-9, 2777, 52521-5 ####[facility] [id number] [place] [address] [place] CBC W Auto Differential pane l (Bld)on 02-25-2023 Basophils (Bld) [#/Vol] 10*3/uL Normal <0.11 [facility] Comment on above: Order Comment: Speci men Type: BLOOD SPECIMEN [facility] Address: [address] [place] [address] Performed By: #### 5 7021-8 #### [facility] CLIA [id number] [address] [place] [address] [place] Basophils/100 WBC (Bld) 0.2 % Normal [facility] Comment on above: Order Comment: Speci men Type: BLOOD SPECIMEN [facility] Address: [address] [place] [address] Performed By: #### 5 7021-8 #### [facility] CLIA [id number] [address] [place] [address] [place] Differential cell count method Nom (Bld) Auto Normal [facility] Comment on above: Order Comment: Speci men Type: BLOOD SPECIMEN [facility] Address: [address] [place] [address] Performed By: #### 5 7021-8 #### [facility] CLIA [id number] [address] [place] [address] [place] Eosinophils (Bld) [#/Vol] 0.16 10*3/uL Normal <0.46 [facility] Comment on above: Order Comment: Speci men Type: BLOOD SPECIMEN [facility] Address: [address] [place] [address] Performed By: #### 5 7021-8 #### [facility] CLIA [id number] [address] [place] [address] [place] Eosinophils/100 WBC (Bld) 1.9 % Normal [facility] Comment on above: Order Comment: Speci men Type: BLOOD SPECIMEN [facility] Address: [address] [place] [address] Performed By: #### 5 7021-8 #### [facility] CLIA [id number] [address] [place] [address] [place] Erythrocyte distribution width (RBC) [Ratio] 16.2 % High 11.5-15.0 [facility] Comment on above: Order Comment: Speci men Type: BLOOD SPECIMEN [facility] Address: [address] [place] [address] Performed By: #### 5 7021-8 #### [facility] CLIA [id number] [address] [place] [address] [place] Hematocrit (Bld) [Volume fraction] 38.3 % Low 39.0-51.0 [facility] Comment on above: Order Comment: Speci men Type: BLOOD SPECIMEN [facility] Address: [address] [place] [address] Performed By: #### 5 7021-8 #### [facility] CLIA [id number] [address] [place] [address] [place] Hemoglobin (Bld) [Mass/Vol] 12.2 g/dL Low 13.0-17.0 [facility] Comment on above: Order Comment: Speci men Type: BLOOD SPECIMEN [facility] Address: [address] [place] [address] Performed By: #### 5 7021-8 #### [facility] CLIA [id number] [address] [place] [address] [place] Immature granulocytes (Bld) [#/Vol] 0.05 10*3/uL Normal <0.10 [facility] Comment on above: Order Comment: Speci men Type: BLOOD SPECIMEN [facility] Address: [address] [place] [address] Performed By: #### 5 7021-8 #### [facility] CLIA [id number] [address] [place] [address] [place] Immature granulocytes/100 WBC (Bld) 0.6 % Normal [facility] Comment on above: Order Comment: Speci men Type: BLOOD SPECIMEN [facility] Address: [address] [place] [address] Performed By: #### 5 7021-8 #### [facility] CLIA [id number] [address] [place] [address] [place] Lymphocytes (Bld) [#/Vol] 0.83 10*3/uL Low 1.00-4.00 [facility] Comment on above: Order Comment: Speci men Type: BLOOD SPECIMEN [facility] Address: [address] [place] [address] Performed By: #### 5 7021-8 #### [facility] CLIA [id number] [address] [place] [address] Lymphocytes/100 WBC (Bld) 9.8 % Normal [facility] Comment on above: Order Comment: Speci men Type: BLOOD SPECIMEN [facility] Address: [address] [place] [address] Performed By: #### 5 7021-8 #### [facility] CLIA [id number] [address] [place] [address] STATES [facility] MCH (RBC) [Entitic mass] 30.2 pg Normal 26.0-34.0 [facility] Comment on above: Order Comment: Speci men Type: BLOOD SPECIMEN [facility] Address: [address] [place] [address] Performed By: #### 5 7021-8 #### [facility] CLIA [id number] [address] [place] [address] [place] MCHC (RBC) [Mass/Vol] 31.9 g/dL Normal 30.5-36.0 [facility] Comment on above: Order Comment: Speci men Type: BLOOD SPECIMEN [facility] Address: [address] [place] [address] Performed By: #### 5 7021-8 #### [facility] CLIA [id number] [address] [place] [address] MCV (RBC) [Entitic vol] 94.8 fL Normal 80.0-100.0 [facility] Comment on above: Order Comment: Speci men Type: BLOOD SPECIMEN [facility] Address: [address] [address] Performed By: #### 5 7021-8 #### [facility] CLIA [id number] [address] [place] [address] [place] Monocytes (Bld) [#/Vol] 0.68 10*3/uL Normal <0.87 [facility] Comment on above: Order Comment: Speci men Type: BLOOD SPECIMEN [facility] Address: [address] [place] [address] Performed By: #### 5 7021-8 #### [facility] CLIA [id number] [address] [place] [address] [place] Monocytes/100 WBC (Bld) 8.0 % Normal [facility] Comment on above: Order Comment: Speci men Type: BLOOD SPECIMEN [facility] Address: [address] [place] [address] Performed By: #### 5 7021-8 #### [facility] CLIA [id number] [address] [place] [address] [place] Neutrophils (Bld) [#/Vol] 6.77 10*3/uL Normal 1.45-7.50 [facility] Comment on above: Order Comment: Speci men Type: BLOOD SPECIMEN [facility] Address: [address] [place] [address] Performed By: #### 5 7021-8 #### [facility] CLIA [id number] [address] [place] [address] [place] Neutrophils/100 WBC (Bld) 79.5 % Normal [facility] Comment on above: Order Comment: Speci men Type: BLOOD SPECIMEN [facility] Address: [address] [place] [address] Performed By: #### 5 7021-8 #### [facility] CLIA [id number] [address] [place] [address] [place] Nucleated RBC (Bld) [#/Vol] 10*3/uL Normal <0.01 [facility] Comment on above: Order Comment: Speci men Type: BLOOD SPECIMEN [facility] Address: [address] [address] Performed By: #### 5 7021-8 #### [facility] CLIA [id number] [address] [place] [address] [place] Nucleated RBC/100 WBC (Bld) [Ratio] 0.0 /100 WBC Normal [facility] Comment on above: Order Comment: Speci men Type: BLOOD SPECIMEN [facility] Address: [address] [place] [address] Performed By: #### 5 7021-8 #### [facility] CLIA [id number] [address] [place] [address] [place] Platelet mean volume (Bld) [Entitic vol] 10.8 fL Normal 9.0-12.7 [facility] Comment on above: Order Comment: Speci men Type: BLOOD SPECIMEN [facility] Address: [address] [place] [address] Performed By: #### 5 7021-8 #### [facility] CLIA [id number] [address] [place] [address] [place] Platelets (Bld) [#/Vol] 129 10*3/uL Low 150-400 [facility] Comment on above: Order Comment: Speci men Type: BLOOD SPECIMEN [facility] Address: [address] [place] [address] Result Comment: No c lot detected.Platelet count confirmed by manual review of peripheral blood smear. Performed By: #### 5 7021-8 #### [facility] CLIA [id number] [address] [place] [address] [place] RBC (Bld) [#/Vol] 4.04 10*6/uL Low 4.20-6.00 [facility] Comment on above: Order Comment: Speci men Type: BLOOD SPECIMEN [facility] Address: [address] [place] [address] Performed By: #### 5 7021-8 #### [facility] CLIA [id number] [address] [place] [address] [place] WBC (Bld) [#/Vol] 8.51 10*3/uL Normal 3.70-11.00 [facility] Comment on above: Order Comment: Speci men Type: BLOOD SPECIMEN [facility] Address: [facility] [address] [id number] Performed By: #### 5 7021-8 #### [facility] CLIA [id number] [address] [id number] [place] CONSULT PROGon 02-25-2023 CONSULT PROG HNO ID: [id number] Author: Norberto Kennedy PA-C Service: Pain Management Author Type: Physician Cripple Chaser Type: Consult Progress Note Filed: 02/25/2023 8:26 AM Note Text: PERIPHERAL NERVE CATHETER PROGRESS NOTE PATIENT NAME: Yoni Ramirez SERVICE DATE: 02/25/2023 SERVICE TIME: 8:24 AM ASSESSMENT Yoni Ramirez is a 77 year old male who is POD# 2, S/P .Attempted brpx-izn-axhuh repair of L femoral hernia Excision of previously implanted mesh Exploratory laparotomy Bilateral TAR Implantation of 30 x 30 cm prolene mesh Patient reports good pain control 0/10 with rest. BTAPS running ropiv 0.2% @ 6 ml Q 30 min. PLAN Continue current pain regimen, will follow. SUBJECTIVE CHIEF COMPLAINT: POD# 1, S/P .Attempted bewv-gfe-aojuu repair of L femoral hernia Excision of previously implanted mesh Exploratory laparotomy Bilateral TAR Implantation of 30 x 30 cm prolene mesh PRIMARY SERVICE: General Surgery Pain level is 0 at rest 2 with ambulation on a scale of 0-10. Is the patient tolerating Physical Therapy?: about to perform. Pain at surgical site? Min Character: aching Duration: intermittent Radiation: No Relieved: Yes - BTAPS Is patient satisfied with pain control: Yes Overnight Events: None Overnight Pain Interventions: no Allergy: ALLERGIES ALLERGIES No Known Allergies MEDICATIONS: I have interrogated the BTAP pump for the correct settings and solution: Yes. Solution Ropivacaine 0.2%, rate 12 ml/hr.both Adjuvant Pain Medication: See below. Current Facility-Administered Medications Medication Dose Route Frequency lactated ringers iv infusion 75 mL/hr INTRAVENOUS CONTINUOUS ondansetron (PF) 4 mg injection (ZOFRAN) 4 mg INTRAVENOUS q 6 H PRN oxyCODONE IR 5 mg tab(s) (ROXICODONE) 5 mg ORAL q 4 H PRN carvedilol 6.25 mg tab(s) (COREG) 6.25 mg ORAL BID w MEALS atorvastatin 20 mg tab(s) (LIPITOR) 20 mg ORAL DAILY acetaminophen 500-1,000 mg tab(s) (TYLENOL) 500-1,000 mg ORAL q 6 H HYDROmorphone 0.4 mg injection (DILAUDID) 0.4 mg INTRAVENOUS q 4 H PRN enoxaparin 40 mg injection (LOVENOX) 40 mg SUBCUTANEOUS q 24 HR ropivacaine nerve block 0.2% (2 mg/mL) - 200 mL PERIPHERAL NERVE CATHETER CONTINUOUS ropivacaine nerve block 0.2% (2 mg/mL) - 200 mL PERIPHERAL NERVE CATHETER CONTINUOUS OBJECTIVE: PHYSICAL EXAM: Patient Vitals for the past 3 hrs: BP Temp Temp src Pulse Resp SpO2 02/25/23 0708 -- -- -- -- -- 93 % 02/25/23 0706 155/71 36.8 ?C (98.2 ?F) Oral 77 19 (!) 87 % Affect: awake General Impression: appears comfortable Catheter site is clean, non-tender, and dressing intact. Sensory exam: Surgical limb: Right Lower Extremity: diminished at distribution of nerve block Other limb: intact Motor Exam: Surgical limb: Right Lower Extremity: diminished at distribution of nerve block Other limb: intact Respiratory Exam: Respirations: Breathing appears normal Thoracostomy tube?: No Gastrointestinal Exam: Abdomen: Yes NG?: No DATA: Lab Results Hemoglobin 12.8 02/24/2023 Hematocrit 38.3 02/24/2023 Platelet Count 146 02/24/2023 I spent a total of 20 minutes on the date of the service which included preparing to see the patient, [id number] patient care, completing clinical documentation, obtaining and/or reviewing separately obtained history, and performing a medically appropriate examination. SIGNATURE: Norberto Kennedy PA-C PATIENT NAME: Yoni Ramirez DATE: February 25, 2023 TIME: 8:24 AM PAGER/CONTACT #: [facility] [phone] [facility] Magnesium SerPl-mCncon 02-25 Magnesium [Mass/Vol] 1.9 mg/dL Normal 1.7-2.3 [facility] Comment on above: Order Comment: Speci men Type: BLOOD SPECIMENOrdering Facility: [facility] Address: [address] [phone] Performed By: #### 1 9123-9, 2777-1, 57862-7 ####[facility] [id number] [address] NURSING PROGon 02-25-2023 NURSING PROG HNO ID: [id number] Author: Ritchie Wright RN Service: ? Author Type: Registered Nurse Type: Nursing Progress Note Filed: 02/25/2023 7:24 PM Note Text: 0918: ambulated with assistance to chair C/o dizziness after rising BP:120/59 pulse 73 94% 3L. Pt. Drowsy, oriented to person, place, time delirious/confused with situation. Surgical team made aware. 1050: Pt disconnected Left tap block. Block stopped pain management made aware. Normal [facility] NURSING PROG HNO ID: [id number] Author: Christie Mayberry RN Service: Nursing Author Type: Registered Nurse Type: Nursing Progress Note Filed: 02/25/2023 4:44 AM Note Text: 0443: Pt's oxygen sating at 90% on 2L. Denies SOB. Placed on 3L NC until CPAP arrives. Pt's home unit unable to hook to O2. IS use encouraged. Normal [facility] Phosphate SerPl-mCncon 02-25 Phosphate [Mass/Vol] 1.4 mg/dL Low 2.7-4.8 [facility] Comment on above: Order Comment: Speci men Type: BLOOD SPECIMENOrdering Facility: [facility] Address: [place] [address] Performed By: #### 1 9123-9, 2777, 55338-8 ####[facility] [id number] [address] BRIEF OP NOTon 02-24-2023 BRIEF OP NOT HNO ID: [id number] Author: Sergio Webster MD Service: Critical Care Author Type: Resident Type: Brief Op Note Filed: 02/23/2023 10:28 PM Note Text: BRIEF OPERATIVE / PROCEDURE NOTE LOG ID: [id number] SURGERY/PROCEDURE DATE: 02/23/2023 INCISION/PROCEDURE START TIME: 3:01 PM INCISION CLOSE/PROCEDURE END TIME: 10:28 PM SURGEON(S)/PROCEDURALIST(S) AND SUPERVISOR PREPRESS(S): Surgeon(s) and Role: * Donato Bishop MD - Primary * Jacky Curiel MD - Resident - Assisting * Sergio Webster MD - Resident - Assisting * Carolina Lorenz MD - Resident - Assisting * Loyd Floyd MD - Fellow No Additional Staff SURGERY/PROCEDURE(S): Attempted uonq-fvp-ubtac repair of L femoral hernia Excision of previously implanted mesh Exploratory laparotomy Bilateral TAR Implantation of 30 x 30 cm prolene mesh ANESTHESIA: General FINDINGS: Large femoral (?) hernia defect containing large bowel attempted plug and patch repair ultimately converted to open TAR given size of defect ESTIMATED BLOOD LOSS: 100 mls SPECIMENS: None COMPLICATIONS: None DRAINS: 2 FERNANDO drains CLOSURE TECHNIQUE: Primary PRE-OP/PRE-PROCEDURE DIAGNOSIS: L inguinal hernia POST-OP/POST-PROCEDURE DIAGNOSIS: Same as Preop Sergio Webster MD, PGY-2 General Surgery SIGNATURE: Sergio Webster MD PATIENT NAME: Yoni Ramirez DATE: February 23, 2023 TIME: 10:24 PM Normal [facility] Basic metabolic 2000 panelon 02-24-2023 Anion gap [Moles/Vol] 8 mmol/L Low 9-18 [facility] Comment on above: Order Comment: Speci men Type: BLOOD SPECIMEN [facility] Address: [address] [place] [address] Performed By: #### 2 4321-2, 35808-3 #### [facility] CLIA [id number] [address] [place] [address] [place] Calcium [Mass/Vol] 8.6 mg/dL Normal 8.5-10.2 [facility] Comment on above: Order Comment: Speci men Type: BLOOD SPECIMEN [facility] Address: [address] [place] [address] Performed By: #### 2 4321-2, #### [facility] CLIA [id number] [address] [place] [address] [place] Chloride [Moles/Vol] 105 mmol/L Normal 97-105 [facility] Comment on above: Order Comment: Speci men Type: BLOOD SPECIMEN [facility] Address: [address] [place] [address] Performed By: #### 2 4321-2, #### [facility] CLIA [id number] [address] [place] [address] [place] CO2 [Moles/Vol] 27 mmol/L Normal 22-30 [facility] Comment on above: Order Comment: Speci men Type: BLOOD SPECIMEN [facility] Address: [address] [place] [address] Performed By: #### 2 4322, #### [facility] CLIA [id number] [address] [place] [address] [place] Creatinine [Mass/Vol] 0.61 mg/dL Low 0.73-1.22 [facility] Comment on above: Order Comment: Speci men Type: BLOOD SPECIMEN [facility] Address: [address] [place] [address] Performed By: #### 2 4322, #### [facility] CLIA [id number] [address] [place] [address] [place] ESTIMATED GLOMERULAR FILTRATION RATE 100 mL/min/1.73m??? Normal >=60 [facility] Comment on above: Order Comment: Speci men Type: BLOOD SPECIMEN [facility] Address: [address] [place] [address] Result Comment: Trena mated Glomerular Filtration Rate (eGFR) is calculated using the 2020 CKD-EPI creatinine equation. This equation utilizes serum creatinine, sex, and age as parameters. The creatinine assay has traceable calibration to isotope dilution-mass spectrometry. Refer to KDIGO guidelines for clinical interpretation. In patients with unstable renal function, e.g. those with acute kidney injury, the eGFR may not accurately reflect actual GFR. Performed By: #### 2 #### [facility] CLIA [id number] [address] [place] [address] [place] Glucose [Mass/Vol] 163 mg/dL High 74-99 [facility] Comment on above: Order Comment: John chan Type: BLOOD SPECIMEN [facility] Address: [address] [place] [address] Result Comment: The [place] Diabetes Association (ADA) provides guidance for cutoff values for fasting glucose and random glucose. The ADA defines fasting as no caloric intake for at least 8 hours. Fasting plasma glucose results between 100 to 125 mg/dL indicate increased risk for diabetes (prediabetes). Fasting plasma glucose results greater than or equal to 126 mg/dL meet the criteria for diagnosis of diabetes. In the absence of unequivocal hyperglycemia, results should be confirmed by repeat testing. In a patient with classic symptoms of hyperglycemia or hyperglycemic crisis, random plasma glucose results greater than or equal to 200 mg/dL meet the criteria for diagnosis of diabetes. Reference: Standards of Medical Care in Diabetes 2016, [place] [employer]. Diabetes Care. 2016.39(Suppl 1). Performed By: #### 2 #### [facility] CLIA [id number] [address] [place] [address] [place] Potassium [Moles/Vol] 3.8 mmol/L Normal 3.7-5.1 [facility] Comment on above: Order Comment: John chan Type: BLOOD SPECIMEN [facility] Address: [address] [address] Performed By: #### 2 #### [facility] CLIA [id number] [address] [place] [address] [place] Sodium [Moles/Vol] 140 mmol/L Normal 136-144 [facility] Comment on above: Order Comment: John chan Type: BLOOD SPECIMEN [facility] Address: [address] [place] [address] Performed By: #### 2 #### [facility] CLIA [id number] [address] [place] [address] [place] Urea nitrogen [Mass/Vol] 11 mg/dL Normal 9-24 [facility] Comment on above: Order Comment: Speci men Type: BLOOD SPECIMEN [facility] Address: [address] [place] [address] Performed By: #### 2 4321-2, 13898-6 #### [facility] CLIA [id number] [address] [place] [address] [place] CBC panel Auto (Bld)on 02-24 Erythrocyte distribution width (RBC) [Ratio] 16.0 % High 11.5-15.0 [facility] Comment on above: Order Comment: Speci men Type: BLOOD SPECIMEN [facility] Address: [address] [place] [address] Performed By: #### 5 8410-2 #### [facility] CLIA [id number] [address] [place] [address] [place] Hematocrit (Bld) [Volume fraction] 38.3 % Low 39.0-51.0 [facility] Comment on above: Order Comment: Speci men Type: BLOOD SPECIMEN [facility] Address: [address] [place] [address] Performed By: #### 5 8410-2 #### [facility] CLIA [id number] [address] [place] [address] [place] Hemoglobin (Bld) [Mass/Vol] 12.8 g/dL Low 13.0-17.0 [facility] Comment on above: Order Comment: Speci men Type: BLOOD SPECIMEN [facility] Address: [address] [place] [address] Performed By: #### 5 8410-2 #### [facility] CLIA [id number] [address] [place] [address] [place] MCH (RBC) [Entitic mass] 30.3 pg Normal 26.0-34.0 [facility] Comment on above: Order Comment: Speci men Type: BLOOD SPECIMEN [facility] Address: [address] [address] Performed By: #### 5 8410-2 #### [facility] CLIA [id number] [address] [place] [address] [place] MCHC (RBC) [Mass/Vol] 33.4 g/dL Normal 30.5-36.0 [facility] Comment on above: Order Comment: Speci men Type: BLOOD SPECIMEN Ordering Facility: [facility] Address: [address] [address] Performed By: #### 5 8410-2 #### [facility] CLIA [id number] [address] [place] [address] [place] MCV (RBC) [Entitic vol] 90.8 fL Normal 80.0-100.0 [facility] Comment on above: Order Comment: Speci men Type: BLOOD SPECIMEN Ordering Facility: [facility] Address: [address] [address] Performed By: #### 5 8410-2 #### [facility] CLIA [id number] [address] [place] [address] [place] Nucleated RBC (Bld) [#/Vol] 10*3/uL Normal <0.01 [facility] Comment on above: Order Comment: Speci men Type: BLOOD SPECIMEN Ordering Facility: [facility] Address: [address] [address] Performed By: #### 5 8410-2 #### [facility] CLIA [id number] [address] [place] [address] [place] Platelet mean volume (Bld) [Entitic vol] 11.3 fL Normal 9.0-12.7 [facility] Comment on above: Order Comment: Speci men Type: BLOOD SPECIMEN Ordering Facility: [facility] Address: [address] [address] Performed By: #### 5 8410-2 #### [facility] CLIA [id number] [address] [place] [address] [place] Platelets (Bld) [#/Vol] 146 10*3/uL Low 150-400 [facility] Comment on above: Order Comment: Speci men Type: BLOOD SPECIMEN Ordering Facility: [facility] Address: [address] [place] [address] Performed By: #### 5 8410-2 #### [facility] CLIA [id number] [address] [place] [address] [place] RBC (Bld) [#/Vol] 4.22 10*6/uL Normal 4.20-6.00 [facility] Comment on above: Order Comment: Speci men Type: BLOOD SPECIMEN Ordering Facility: [facility] Address: [address] [place] [address] Performed By: #### 5 8410-2 #### [facility] CLIA [id number] [address] [place] [address] [place] WBC (Bld) [#/Vol] 10.56 10*3/uL Normal 3.70-11.00 [facility] Comment on above: Order Comment: Speci men Type: BLOOD SPECIMEN Ordering Facility: [facility] Address: [address] [place] [address] Performed By: #### 5 8410-2 #### [facility] CLIA [id number] [address] [place] [address] CONSULT PROGon 02-24-2023 CONSULT PROG HNO ID: [id number] Author: Norberto Kennedy PA-C Service: Pain Management Author Type: Physician Cripple Chaser Type: Consult Progress Note Filed: 02/24/2023 8:51 AM Note Text: PERIPHERAL NERVE CATHETER PROGRESS NOTE PATIENT NAME: Yoni Ramirez SERVICE DATE: 02/24/2023 SERVICE TIME: 8:37 AM ASSESSMENT Yoni Ramirez is a 77 year old male who is POD# 1, S/P .Attempted horx-igt-mkrvc repair of L femoral hernia Excision of previously implanted mesh Exploratory laparotomy Bilateral TAR Implantation of 30 x 30 cm prolene mesh Patient reports good pain control 0/10 with rest. BTAPS running ropiv 0.2% @ 6 ml Q 30 min. - Discussed with nurse and Dr Solorio appears in MAR these were D/Rojas I discussed with pharmacy who will continue the order for the BTAPS at this time. PLAN Continue current pain regimen, will follow. SUBJECTIVE CHIEF COMPLAINT: POD# 1, S/P .Attempted umqg-llj-ozyrh repair of L femoral hernia Excision of previously implanted mesh Exploratory laparotomy Bilateral TAR Implantation of 30 x 30 cm prolene mesh PRIMARY SERVICE: General Surgery Pain level is 0 at rest 2 with ambulation on a scale of 0-10. Is the patient tolerating Physical Therapy?: about to perform. Pain at surgical site? Min Character: aching Duration: intermittent Radiation: No Relieved: Yes - BTAPS Is patient satisfied with pain control: Yes Overnight Events: None Overnight Pain Interventions: no Allergy: ALLERGIES No Known Allergies MEDICATIONS: I have interrogated the BTAP pump for the correct settings and solution: Yes. Solution Ropivacaine 0.2%, rate 12 ml/hr.both Adjuvant Pain Medication: See below. Current Facility-Administered Medications Medication Dose Route Frequency lactated ringers iv infusion 75 mL/hr INTRAVENOUS CONTINUOUS ondansetron (PF) 4 mg injection (ZOFRAN) 4 mg INTRAVENOUS q 6 H PRN oxyCODONE IR 5 mg tab(s) (ROXICODONE) 5 mg ORAL q 4 H PRN carvedilol 6.25 mg tab(s) (COREG) 6.25 mg ORAL BID w MEALS atorvastatin 20 mg tab(s) (LIPITOR) 20 mg ORAL DAILY ceFAZolin iv piggyback 2 g in D5W (iso-osmotic) 100 mL (ANCEF) 2 g INTRAVENOUS q 8 H acetaminophen 500-1,000 mg tab(s) (TYLENOL) 500-1,000 mg ORAL q 6 H HYDROmorphone 0.4 mg injection (DILAUDID) 0.4 mg INTRAVENOUS q 4 H PRN enoxaparin 40 mg injection (LOVENOX) 40 mg SUBCUTANEOUS q 24 HR OBJECTIVE: PHYSICAL EXAM: Patient Vitals for the past 3 hrs: BP Temp Temp src Pulse Resp SpO2 02/24/23 0723 134/66 36.9 ?C (98.4 ?F) Oral 81 16 91 % Affect: awake General Impression: appears comfortable Catheter site is clean, non-tender, and dressing intact. Sensory exam: Surgical limb: Right Lower Extremity: diminished at distribution of nerve block Other limb: intact Motor Exam: Surgical limb: Right Lower Extremity: diminished at distribution of nerve block Other limb: intact Respiratory Exam: Respirations: Breathing appears normal Thoracostomy tube?: No Gastrointestinal Exam: Abdomen: Yes NG?: No DATA: Lab Results Hemoglobin 12.8 02/24/2023 Hematocrit 38.3 02/24/2023 Platelet Count 146 02/24/2023 I spent a total of 20 minutes on the date of the service which included preparing to see the patient, zvgp-gv-qgel patient care, completing clinical documentation, obtaining and/or reviewing separately obtained history, performing a medically appropriate examination, and care coordination (not separately reported). SIGNATURE: Norberto Kennedy PA-C PATIENT NAME: Yoni Ramirez DATE: February 24, 2023 TIME: 8:37 AM PAGER/CONTACT #: EMMIE [phone] Normal [facility] Magnesium SerPl-ncon 02-24 Magnesium [Mass/Vol] 1.8 mg/dL Normal 1.7-2.3 [facility] Comment on above: Order Comment: Speci men Type: BLOOD SPECIMEN Ordering Facility: [facility] Address: [address] [place] [address] Performed By: #### 2 4321-2, 80110-6 #### [facility] CLIA [id number] [address] [place] [address] OF [facility] NURSING PROGon 02-24-2023 NURSING PROG HNO ID: [id number] Author: Aminah Dos Santos RN Service: ? Author Type: Registered Nurse Type: Nursing Progress Note Filed: 02/24/2023 3:44 AM Note Text: Pt drowsy , arousable after up from Pacu. Stays awake for questions and assessment. On 2LNC. States to bring in CPAP this morning. Abd binder on. Text paged surgery to reorder tap blocks on B abdomen that pt came up from surgery with. Infusing as ordered . Ice provided. Normal [facility] THERAPY NTon 02-24-2023 THERAPY NT HNO ID: [id number] Author: Ree Gardner, PT Service: Physical Therapy Author Type: Physical Therapist Type: Therapy (PT/OT/Speech/Resp) Filed: 02/24/2023 4:39 PM Note Text: Physical Therapy Evaluation SERVICE DATE: 02/24/2023 SERVICE TIME: 1600 to 1633 ROOM: [address] [address] Recommended Discharge Disposition: Home Recommended Discharge Disposition Comments: vs SNF pending progress as pt requires ample physical assist at this time however likely to make good progress Recommended Discharge Disposition Due to: Patient requires daily, facility-based rehabilitation from at least one discipline due to:, decline in functional status requiring daily skilled care, ongoing intervention of multiple therapy disciplines Anticipated Discharge Needs: Physical Assist at Home Physical Assist at Home for: Cleaning, Laundry, Meals, Shopping, Transportation Recommended Discharge Equipment: Wheeled Walker PT 6 Clicks Score: 13 Precautions/Activity Restrictions: Abdominal, Bed/Chair Alarm, Fall Risk, Lines/Tubes/Drains, Diet Restrictions, Other: See Comments Current Hospital Course: Scheduled Surgery For Left Inguinal Hernia, S/P Attempted Ghuf-Yvd-Ubpzp Repair Of Left Femoral Hernia, Excision Of Previously Implanted Mesh, Exploratory Laparotomy, Bilateral TAR, Implantation Of 30 x 30 cm Prolene Mesh 02/23/23 Reason for Hospital Admission: Scheduled Surgery For Left Inguinal Hernia, S/P Attempted Lvfa-Wtx-Vwfud Repair Of Left Femoral Hernia, Excision Of Previously Implanted Mesh, Exploratory Laparotomy, Bilateral TAR, Implantation Of 30 x 30 cm Prolene Mesh 02/23/23 Relevant Past Medical History: MIHIR On CPAP, Primary HTN, Prostate CA, Gout, Refer to Epic Response to Therapy Interventions: Good Participation in Activities, On-Track to Achieve Discharge Goals Continued Skilled Needs Due to: Functional Mobility/Skill Impairments, Safety Concerns Physical Therapy Problem List: Decreased Strength, Functional Mobility Impairment, Balance Impaired Treatment Interventions: Education, Strengthening, Functional Mobility Training, Balance Training Plan for Next Visit: Bed Mobility, Gait Training, Sit to Stand Transfers Home Environment Patient Lives With: Significant Other, Other: See Comment Comments: In one level home in [place], [place] Assistance Available: PRN Entry To Home: Stairs, With Rail Number Of Stairs Into Home: 3 Number Of Stairs To Bed/Bath: 0 Tub/Shower Type: Tub/Shower Laundry: 1st level Equipment Owned: Hand Held Shower, Walker- Standard Prior Functional Level: Within Functional Limits Prior Functional Level Comments: Per Pt, he was independent with ADL's, shares cleaning, and laundry, and his girlfriend completes the meal prep, and grocery shopping. Pt ambulated independently prior to admit, and drives. Drives. No falls. Baseline Cognition: Oriented to self, Oriented to place, Oriented to time, Oriented to situation Patient Report: I'm tired CURRENT FUNCTIONAL STATUS: Most recent performance Current Functional Mobility Assist Level Additional Information Rolling Supine to Sit Sit to Supine Moderate Assistance (x 2) Scooting Sit to Stand Maximal Assistance Stand to Sit Maximal Assistance Bed to Chair Maximal Assistance Bed To Chair Transfer Type: Stepping Bed To Chair Transfer Equipment: Wheeled Walker Toilet/Commode Gait Stairs Curb Step Car Transfer Blank barrera indicate activity not attempted JH-HLM: 4: Move to chair / commode Learning/Educational Needs: Discharge Plan, Functional Activities/Mobility, Plan of Care, Changes in Plan of Care, Safety Goals for Plan of Care: Patient/Caregiver Goals: Go Home Goals: Patient will demonstrate progress to optimize functional mobility, maximize activity tolerance and endurance to maximize function upon discharge. Transfer Supine to/from Sit with: Contact Guard Assistance Transfer Sit to/from Stand with: Contact Guard Assistance Ambulate with: Contact Guard Assistance Distance: 50 Device: Wheeled Walker Progress Toward Goals: Progressing slower than expected Due To: Extensive surgery Rehab Potential: Good Patient will be discontinued from Physical Therapy when no further skilled needs are identified in this setting. PLAN: PT Frequency: 4 times per week ((1)) Plan of Care developed with: Patient TREATMENT INTERVENTIONS: Therapy Diagnosis: Reduced mobility-other Interventions Provided: Evaluation, Therapeutic Activity (20224) $ Evaluation-Moderate (01640) Billed Units: 1 unit Therapeutic Activity (11578) Treatment Minutes: 15 $ Therapeutic Activity (22827) Billed Units: 1 unit Training AND Education Provided in: Anatomy and Impact on Deficits, Assistive Device Use, Benefits of In-Hospital Mobility, Disease Specific Education, Expected Functional Level The Following Therapeutic Skills Were Used: Activity Dosing, Cues for Sequencing/Proper Technique for Activity, Cuing Verbal, Muscl (more content not included)... Normal [facility] THERAPY NT HNO ID: [id number] Author: VIKA Hall/Adriel Service: Occupational Therapy Author Type: Occupational Therapist Type: Therapy (PT/OT/Speech/Resp) Filed: 02/24/2023 1:09 PM Note Text: Occupational Therapy Evaluation SERVICE DATE: 02/24/2023 SERVICE TIME: 40 to 18 ROOM: [address] [address] Scheduled Surgery For Left Inguinal Hernia, S/P Attempted Nhic-Uin-Trgan Repair Of Left Femoral Hernia, Excision Of Previously Implanted Mesh, Exploratory Laparotomy, Bilateral TAR, Implantation Of 30 x 30 cm Prolene Mesh 02/23/23 Recommended Discharge Disposition: Home Pt has adequate support and social structure for reasonably safe discharge home at current level. Anticipated Discharge Needs: Physical Assist at Home, Equipment Physical Assist at Home for: Transportation, Shopping, Laundry, Cleaning, Stairs, Safety Recommended Discharge Equipment: Elastic Shoe Laces, Grab Bars-Shower, Hand Held Shower, Long Handled Shoe Horn, Long Handled Sponge, Wheeled Walker, Protective Signal Repairer, Sock Aid, Shower Chair OT 6 Clicks Score: 17 Precautions/Activity Restrictions: Abdominal, Bed/Chair Alarm, Fall Risk, Lines/Tubes/Drains, Diet Restrictions, Other: See Comments (Clear Liquid Diet, 2L 02 this date) Current Hospital Course: Scheduled Surgery For Left Inguinal Hernia, S/P Attempted Wfms-Hot-Sbjay Repair Of Left Femoral Hernia, Excision Of Previously Implanted Mesh, Exploratory Laparotomy, Bilateral TAR, Implantation Of 30 x 30 cm Prolene Mesh 02/23/23 Reason for Hospital Admission: Scheduled Surgery For Left Inguinal Hernia, S/P Attempted Clft-Vpu-Kkwfu Repair Of Left Femoral Hernia, Excision Of Previously Implanted Mesh, Exploratory Laparotomy, Bilateral TAR, Implantation Of 30 x 30 cm Prolene Mesh 02/23/23 Relevant Past Medical History: MIHIR On CPAP, Primary HTN, Prostate CA, Gout, Refer to Epic Occupational Therapy Problem List: Pain, Safety Deficits, Impaired Self Care, Decreased Activity Tolerance, Decreased Strength, Functional Mobility Impairment Treatment Interventions: Education, Self Care/Home Management, Energy Conservation Training, Strengthening, Functional Mobility Training Home Environment Patient Lives With: Significant Other, Other: See Comment Comments: In one level home in [place], [place] Assistance Available: PRN Entry To Home: Stairs, With Rail Number Of Stairs Into Home: 3 Number Of Stairs To Bed/Bath: 0 Tub/Shower Type: Tub/Shower Laundry: 1st level Equipment Owned: Hand Held Shower, Walker- Standard Prior Functional Level: Within Functional Limits Prior Functional Level Comments: Per Pt, he was independent with ADL's, shares cleaning, and laundry, and his girlfriend completes the meal prep, and grocery shopping. Pt ambulated independently prior to admit, and drives. 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[place], [place] Occupational Factors Life Roles: Retired, Spouse/Significant Other Identified Strengths: Good Support System, Involvement in Hobbies/Leisure Activities, Positive Coping Strategies, Self-Regulation, Effective Communication Skills, Strong Awareness of Deficit(s), Open to Adaptive Equipment/Strategies, Motivation, Safety Awareness, Health Literacy, Memory/Attention, Follows Multi-Step Commands, Problem-Solving Skills, Access to Healthcare Identified Barriers: Health Maintenance, Medical Acuity/Chronic Condition CURRENT FUNCTIONAL STATUS: Most recent performance Current Activities of Daily Living Assist Level Additional Information Feeding Modified Independent Grooming Stand By Assistance Bathing Upper Body Minimal Assistance Bathing Lower Body Moderate Assistance Dressing Upper Body Minimal Assistance Dressing Lower Body Moderate Assistance Toileting Maximal Assistance Instrumental Activities of Daily Living Assist Level Additional Information Meal/Beverage Prep Cleaning Laundry Medication Management with Strategies Functional Mobility Assist Level Additional Information Rolling Moderate Assistance, Additional Information Supine to Sit Moderate Assistance, Additional Information Sit to Supine Scooting Minimal Assistance Sit to Stand Moderate Assistance, Additional Information Stand to Sit Moderate Assistance, Additional Information Bed to Chair Moderate Assistance, Additional Information Stepping Wheeled Walker Toilet/Commode Shower Functional Mobility Moderate Assistance, Additional Information Wheeled Walker Blank barrera indicate activity not attempted Balance: Static Standing, Dynamic Standing, Dynamic Sitting, Static Sitting Static Sitting Balance: Fair Patient able to maintain balance with handhold support, may require occasional minimal assistance Dynamic Sitting Balance: Fair Patient accepts minimal challenge, able to maintain balance while turning head/trunk Static Standi (more content not included)... [facility] THERAPY NT HNO ID: [id number] Author: VANI Hall Service: Occupational Therapy Author Type: Occupational Therapist Type: Therapy (PT/OT/Speech/Resp) Filed: 02/24/2023 12:40 PM Note Text: OCCUPATIONAL THERAPY MISSED VISIT SERVICE DATE: 02/24/2023 SERVICE TIME: 0832 to 0832 ROOM: [address] [address] Patient not seen due to other service at bedside. Will see as able. SIGNATURE: VANI Hall PATIENT NAME: Yoni Ramirez DATE: February 24, 2023 TIME: 8:37 AM [facility] ANES PRE-OPon 02-23-2023 ANES PRE-OP HNO ID: [id number] Author: Stefanie Hitchcock APRN.EMOTIONAL SUPPORT TEACHER Service: Anesthesiology Author Type: Nurse Network Engineering Advisor Type: Anesthesia Preprocedure Evaluation Filed: 02/23/2023 2:26 PM Note Text: ANESTHESIOLOGY DAY OF SURGERY NOTE : 1945 Procedure Information Date/Time: 02/23/23 1229 Procedure: HERNIORRHAPHY INGUINAL ELECTIVE ADULT REDUCIBLE (Left: Groin) - w/mesh Location: [facility] / [facility] Surgeons: Donato Bishop MD Estimated body mass index is 34.72 kg/m? as calculated from the following: Height as of 02/14/23: 177.8 cm (5' 10 ). Weight as of 02/14/23: 109.8 kg (242 lb). Most recent hematocrit and potassium results: Hematocrit 44.7 02/14/2023 Potassium 4.2 02/14/2023 Relevant Problems ANESTHESIA (+) Obstructive sleep apnea syndrome CARDIO (+) Primary hypertension PULMONARY (+) Obstructive sleep apnea syndrome I - PHYSICAL EVALUATION AIRWAY Patient intubated: No. Tracheostomy tube not present Mallampati: II. TM distance: >3 FB. Neck ROM: full ROM without neurological symptoms. Mouth opening: adequate. Short neck: no. Thick neck: no DENTAL Dental findings: chipped. Additional comments: Front upper right tooth chipped. II - ANESTHESIA PLAN ASA Score: 3 Anesthetic Plan: general Airway type: ETT The patient is not a current smoker. NPO Status: adequate Beta Rachid Monitoring Plan Monitoring plan: standard ASA. Post Procedure Analgesic Plan Postoperative analgesic plan: parenteral or oral opioids and multimodal analgesia. Informed Consent Anesthetic risks, benefits, alternatives, personnel and consent discussed: yes. Patient / Responsible Libertarian agrees to proceed: yes Patient / Surrogate agrees to blood products: Yes DNR status not reviewed with patient and/or family prior to surgery. Significant changes in the patient condition since the History and Physical, not otherwise documented in primary service progress note: no. Potential Anesthesia issues that may suggest increased risk of complications or contraindication to planned procedure: none. Vitals Value Taken Time BP 173/68 02/23/23 1347 Pulse 68 02/23/23 1347 Resp 16 02/23/23 1347 Temp 36.6 ?C (97.9 ?F) 02/23/23 1347 SpO2 96 % 02/23/23 1347 Facility-Administered Medications as of 02/23/2023 Medication Dose Route Frequency - heparin 5,000 Units injection 5,000 Units SUBCUTANEOUS ONCE - lidocaine (PF) 10 mg/mL (1 %) 1-2 mg injection (XYLOCAINE) 0.1-0.2 mL INTRADERMAL PRN - lactated ringers iv infusion 5-30 mL/hr INTRAVENOUS CONTINUOUS - NaCl 0.9% iv flush bag 20 mL INTRAVENOUS PRN - ceFAZolin iv piggyback 2 g in D5W (iso-osmotic) 100 mL (ANCEF) 2 g INTRAVENOUS Pre-Op Once - [COMPLETED] acetaminophen 1,000 mg tab(s) (TYLENOL) 1,000 mg ORAL ONCE - [COMPLETED] promethazine 12.5 mg tab(s) (PHENERGAN) 12.5 mg ORAL NOW Outpatient Medications as of 02/23/2023 Medication Sig - carvedilol (COREG) 12.5 mg tablet 6.25 mg twice daily with meals. - aspirin, enteric coated (ASPIRIN, ENTERIC COATED) 81 mg EC tablet Take 81 mg by mouth once daily. - amLODIPine (NORVASC) 5 mg tablet Take by mouth once daily. - atorvastatin (LIPITOR) 20 mg tablet Take 20 mg by mouth once daily. - allopurinol (ZYLOPRIM) 300 mg tablet Take 300 mg by mouth once daily. - lisinopril (ZESTRIL) 10 mg tablet q 24 HR. - ketoconazole (NIZORAL) 2 % cream Apply to affected area twice daily. (Patient taking differently: Apply to affected area twice daily. As needed) - lisinopril-hydroCHLOROthiazi de (PRINZIDE, ZESTORETIC) 20-25 mg per tablet Take 1 tablet by mouth once daily. I have interviewed and examined the patient. I have reviewed the medical record and/or the pre-anesthesia evaluation, pertinent labs, and test results. This contains updated information obtained within 48 hours of Surgery/Procedure. SIGNATURE: Stefanie Hitchcock APRN.EMOTIONAL SUPPORT TEACHER PATIENT NAME: Yoni Ramirez DATE: February 23, 2023 TIME: 2:24 PM CSN: [id number] [facility] PT EDon 02-23-2023 PT ED HNO ID: [id number] Author: Cecilia Jensen RN Service: ? Author Type: Registered Nurse Type: Patient Education Filed: 02/23/2023 1:55 PM Note Text: PATIENT EDUCATION TOPIC: PROCEDURE / SURGERY: Pre-op Teaching: Protocols PATIENT NAME: Yoni Ramirez PATIENT LOCATION: [facility] POOL/[facility] OR POOL READINESS TO LEARN COGNITIVE ABILITY: Alert and oriented MOTIVATION TO LEARN: Interested FAMILY SUPPORT: None - Unavailable/disinterested INSTRUCTION PROVIDED TO: Patient PATIENT LEARNS BEST BY: Individual Instruction FACTORS AFFECTING LEARNING: None PHYSICAL LIMITATIONS AFFECTING LEARNING: None LEARNING RESPONSE DIAGNOSIS: ADULT: Well Adult PATIENT/FAMILY RESPONSE: Information received as demonstrated by interest and questions METHOD OF INSTRUCTION: Individual instruction FOLLOW-UP PLAN: Complete - No need for follow-up INSTRUCTIONAL AIDS USED: NA SUPPLEMENTAL MATERIAL PROVIDED TO PATIENT: None REFERRAL (RECOMMENDATION): None Electronically Signed By: Cecilia Jensen [facility] PT ED HNO ID: [id number] Author: Cecilia Jensen RN Service: ? Author Type: Registered Nurse Type: Patient Education Filed: 02/23/2023 1:53 PM Note Text: PATIENT EDUCATION TOPIC: PROCEDURE / SURGERY: Pre-op Teaching: Protocols PATIENT NAME: Yoni Ramirez PATIENT LOCATION: [facility] OR POOL READINESS TO LEARN COGNITIVE ABILITY: Alert and oriented MOTIVATION TO LEARN: Interested FAMILY SUPPORT: None - Unavailable/disinterested INSTRUCTION PROVIDED TO: Patient PATIENT LEARNS BEST BY: Individual Instruction FACTORS AFFECTING LEARNING: None PHYSICAL LIMITATIONS AFFECTING LEARNING: None LEARNING RESPONSE DIAGNOSIS: ADULT: Well Adult PATIENT/FAMILY RESPONSE: Information received as demonstrated by interest and questions METHOD OF INSTRUCTION: Individual instruction FOLLOW-UP PLAN: Complete - No need for follow-up INSTRUCTIONAL AIDS USED: NA SUPPLEMENTAL MATERIAL PROVIDED TO PATIENT: None REFERRAL (RECOMMENDATION): None Electronically Signed By: Cecilia Jensen [facility] SURGICAL PATHOLOGYon 023 CASE REPORT [facility] Comment on above: Order Comment: Speci men Type: BLOOD SPECIMEN Ordering Facility: [facility] Address: [address] [place] [phone] Result Comment: Surg ical Pathology Report Case: [id number] Authorizing Provider: Donato Bishop MD Collected: 02/23/2023 05:38 PM Ordering Location: [facility] Received: 02/26/2023 08:20 AM Operating Room Pathologist: Keara Hernandez MD Specimen: RETROPERITONEUM BIOPSY, peritoneal mass Performed By: #### 2 4320-2, #### [facility] CLIA [id number] [address] [place] [address] OF [facility] CLINICAL HISTORY w/mesh Normal [facility] Comment on above: Order Comment: Speci men Type: BLOOD SPECIMEN Ordering Facility: [facility] Address: [address] [place] [address] Result Comment: Pre-op diagnosis: Unilateral recurrent inguinal hernia without obstruction or gangrene [K40.91] Performed By: #### 2 4320-, #### [facility] CLIA [id number] [address] [place] [address] [facility] [facility] Comment on above: Order Comment: Speci men Type: BLOOD SPECIMEN Ordering Facility: [facility] Address: [address] [place] [address] Result Comment: Ramirez kellogg, biopsy: - Degenerating fibroadipose tissue with dystrophic calcification. Performed By: #### 2 4320-11, #### [facility] CLIA [id number] [address] [place] [address] OF [facility] FIN[facility] PER[facility] LAB Normal [facility] Comment on above: Order Comment: Speci men Type: BLOOD SPECIMEN Ordering Facility: [facility] Address: [address] [place] [address] Result Comment: Diag nostic interpretation performed at [facility], [address] [address] [place] [address] CLIA# [id number] Sdc Teacher: Keara Hernandez M.D. Performed By: #### 2 4320-2, #### [facility] CLIA [id number] [address] [place] [address] [place] GROSS DESCRIPTION Normal [facility] Comment on above: Order Comment: Speci men Type: BLOOD SPECIMEN Ordering Facility: [facility] Address: [address] [place] [address] Result Comment: A. R ETROPERITONEUM BIOPSY Received in formalin designated peritoneal mass is a son-yellow nodule which measures 1.4 x 1.2 x 1.2 cm. The specimen is bisected revealing a cyst containing a son soft material with a yellow clear fluid. A portion of the cyst wall is focally calcified. The specimen is totally submitted in 1 cassette. BF February 26, 2023 10:38 AM Gross examination performed at [facility], [address] [place] [address] CLIA # [id number] Performed By: #### 2 4321-2, 03394-7 #### [facility] CLIA [id number] OF [place] TYPE + SCREENon 02-23-2023 ABO A Normal [facility] Comment on above: Order Comment: Speci men Type: BLOOD SPECIMENOrdering Facility: [facility] Address: [address] [place] [address] Performed By: #### T SCR ####[facility] [id number] [address] OF [facility] Performed By: #### C ONABO ####[facility] [id number] [place] [address] [place] HISTORICAL AB SCR STATUS Negative [facility] Comment on above: Order Comment: Speci men Type: BLOOD SPECIMENOrdering Facility: [facility] Address: [address] [place] [address] Performed By: #### T SCR ####[facility] [id number] [place] [address] [place] Rh Nom (Bld) Positive [facility] Comment on above: Order Comment: Speci men Type: BLOOD SPECIMENOrdering Facility: [facility] Address: [address] [place] [address] Performed By: #### T SCR ####[facility] [id number] [address] Performed By: #### C ONABO ####[facility] [id number] [place] [id number] [facility] TYPE AND SCREEN EXPIRATION 02/26/2023 23:59 Normal [facility] Comment on above: Order Comment: Speci men Type: BLOOD SPECIMENOrdering Facility: [facility] Address: [address] [place] [address] Performed By: #### T SCR ####[facility] [id number] [place] [id number] [facility] CBC AUTO DIFFon 02-21-2023 BASO # 0.0 103/ul Normal 0.0-0.1 [facility] Comment on above: Performed By: #### C BC ####[facility] [address] [place], [place] [address]Dr. Alex Eddy Basophils/100 WBC (Bld) 0.5 % Normal 0.2-2.0 [facility] Comment on above: Performed By: #### C BC ####[facility] [address] [place], [place] [address]Dr. Alex Eddy EO # 0.2 103/ul Normal 0.0-0.7 [facility] Comment on above: Performed By: #### C BC ####[facility] [address] [place], [place] [address]Dr. Aelx Eddy Eosinophils/100 WBC (Bld) 4.0 % Normal 0.9-7.0 [facility] Comment on above: Performed By: #### C BC ####[facility] [address] [place], [place] [address]Dr. Alex Eddy Erythrocyte distribution width (RBC) [Ratio] 16.3 % Critically high 11.0-15.0 [facility] Comment on above: Performed By: #### C BC ####[facility] [address] [place], [place] [address]Dr. Alex Eddy Hematocrit (Bld) [Volume fraction] 43.3 % Normal 42.0-54.0 [facility] Comment on above: Performed By: #### C BC ####[facility] [address] [place] [id number]. Alex Eddy Hemoglobin (Bld) [Mass/Vol] 14.0 g/dL Normal 14.0-18.0 [facility] Comment on above: Performed By: #### C BC ####[facility] [address] [id number]. Alex Eddy IG # 0.02 10e3/ul Normal 0.00-0.03 [facility] Comment on above: Performed By: #### C BC ####[facility] [address] [place] [address]Dr. Alex Surjit IG % 0.4 % Normal 0.0-0.5 [facility] Comment on above: Performed By: #### C BC ####[facility] [address] [place] [address]Dr. Alex Surjit LYMPH # 1.1 103/ul Critically low 1.2-3.8 [facility] Comment on above: Performed By: #### C BC ####[facility] [address] [place] [address]Dr. Alex Surjit Lymphocytes/100 WBC (Bld) 19.5 % Critically low 20.5-60.0 [facility] Comment on above: Performed By: #### C BC ####[facility] [address] [place] [address]Dr. Gretelmickey Eddy MANUAL DIFF REQ NO Normal [facility] Comment on above: Performed By: #### C BC ####[facility] [address] [place] [id number]. Alex Surjit MCH (RBC) [Entitic mass] 30.1 pg Normal 25.9-34.0 [facility] Comment on above: Performed By: #### C BC ####[facility] [address] [place] [id number]. Alex Surjit MCHC (RBC) [Mass/Vol] 32.3 g/dL Normal 29.9-35.2 [facility] Comment on above: Performed By: #### C BC ####[facility] [address] [place] [id number]. Alex Eddy MCV (RBC) [Entitic vol] 93.1 fL Normal 80.0-94.0 [facility] Comment on above: Performed By: #### C BC ####[facility] [address] [place] [id number]. Alex Eddy MONO # 0.7 103/ul Normal 0.3-0.8 [facility] Comment on above: Performed By: #### C BC ####[facility] [address] [place] [id number]. Alex Eddy Monocytes/100 WBC (Bld) 11.9 % Normal 1.7-12.0 [facility] Comment on above: Performed By: #### C BC ####[facility] [address] [place], [place] [address]Dr. Alex Eddy NEUT # 3.5 103/ul Normal 1.4-6.5 [facility] Comment on above: Performed By: #### C BC ####[facility] [address] [place], [place] [address]Dr. Alex Eddy Neutrophils/100 WBC (Bld) 63.7 % Normal 43.0-75.0 [facility] Comment on above: Performed By: #### C BC ####[facility] [address] [place], [place] [address]Dr. Alex Eddy Platelet mean volume (Bld) [Entitic vol] 10.9 fL Normal 9.5-13.5 [facility] Comment on above: Performed By: #### C BC ####[facility] [address] [place] [id number]. Alex Dedy PLT 168 103/ul Normal 150-450 [facility] Comment on above: Performed By: #### C BC ####[facility] [address] [place] [id number]. Gretelmickey Surjit RBC 4.65 106/ul Critically low 4.70-6.10 [facility] Comment on above: Performed By: #### C BC ####[facility] [address] [place], [place] [address]Gd. Alex Eddy WBC 5.5 103/ul Normal 4.0-11.0 [facility] Comment on above: Performed By: #### C BC ####[facility] [address] [place], [place] [address]PrBrian Eddy CRPon 02-21-2023 CRP 0.3 mg/dL Normal <=1.0 [facility] Comment on above: Performed By: #### C RP #### [facility] [address] [place], [place] [address] Dr. Alex Eddy SED [facility]ATE [facility] 2022 SED RATE 37 mm/hr Critically high <=20 [facility] Comment on above: Performed By: #### S EDR #### [facility] [address] [place] [address] [address] Alex Eddy CBC W Auto Differential pane l (Bld)on 02-14-2023 Basophils (Bld) [#/Vol] 0.05 10*3/uL <0.11 k/uL [facility] Basophils/100 WBC (Bld) 0.7 % [facility] Differential cell count method Nom (Bld) Auto [facility] Eosinophils (Bld) [#/Vol] 0.29 10*3/uL <0.46 k/uL [facility] Eosinophils/100 WBC (Bld) 4.3 % [facility] Erythrocyte distribution width (RBC) [Ratio] 16.7 % High 11.5 - 15.0 % [facility] Hematocrit (Bld) [Volume fraction] 44.7 % 39.0 - 51.0 % [facility] Hemoglobin (Bld) [Mass/Vol] 14.4 g/dL 13.0 - 17.0 g/dL [facility] Immature granulocytes (Bld) [#/Vol] 0.07 10*3/uL <0.10 k/uL [facility] Immature granulocytes/100 WBC (Bld) 1.0 % [facility] Lymphocytes (Bld) [#/Vol] 1.37 10*3/uL 1.00 - 4.00 k/uL [facility] Lymphocytes/100 WBC (Bld) 20.3 % [facility] MCH (RBC) [Entitic mass] 30.3 pg 26.0 - 34.0 pg [facility] MCHC (RBC) [Mass/Vol] 32.2 g/dL 30.5 - 36.0 g/dL [facility] MCV (RBC) [Entitic vol] 93.9 fL 80.0 - 100.0 fL [facility] Monocytes (Bld) [#/Vol] 0.91 10*3/uL High <0.87 k/uL [facility] Monocytes/100 WBC (Bld) 13.5 % [facility] Neutrophils (Bld) [#/Vol] 4.06 10*3/uL 1.45 - 7.50 k/uL [facility] Neutrophils/100 WBC (Bld) 60.2 % [facility] Nucleated RBC (Bld) [#/Vol] <0.01 k/uL [facility] Nucleated RBC/100 WBC (Bld) [Ratio] 0.0 /100 WBC [facility] Platelet mean volume (Bld) [Entitic vol] 10.8 fL 9.0 - 12.7 fL [facility] Platelets (Bld) [#/Vol] 191 10*3/uL 150 - 400 k/uL [facility] RBC (Bld) [#/Vol] 4.76 10*6/uL 4.20 - 6.0 0 m/uL [facility] WBC (Bld) [#/Vol] 6.75 10*3/uL 3.70 - 11. 00 k/uL [facility] MRI PELVIS WO/W IVCONon 02-2 MRI PELVIS WO/W IVCON * * *Final Report* * * DATE OF EXAM: Dec 06 2022 10:54AM [facility] 0742 - MRI PELVIS WO/W IVCON / PROCEDURE REASON: multiple diagnoses * * * * Physician Interpretation * * * * Examination: MRI PELVIS WO/W IVCON, MRI PELVIS WO/W IVCON Clinical History: Abdominal mass, left lower quadrant , scrotal mass on left Technique: MRI of the pelvis prior to and following the demonstration of IV contrast Exam Date: 12/04/2022 4:56 PM Comparison: CT 11/06/2022, ultrasound 10/11/2022 Contrast: IV 20 ml of Dotarem RESULT: Parapelvic cysts in the kidneys bilaterally. Bladder is under distended. Prostate is absent. Colonic diverticulosis. No obvious lymphadenopathy. 1.3 x 0.9 cm area of fat necrosis in the pelvis on the right anteriorly (image 59, 13 Large right sided inguinal hernia containing fat extending into the scrotum. Larger left-sided inguinal hernia containing colon and fat. Ill-defined soft tissue in the left inguinal region, likely from prior hernia repair. Fat extending into the scrotal sacs bilaterally from aforementioned inguinal hernias, left greater than right. Testicles appear normal bilaterally. Trace hydroceles bilaterally. 3.2 x 1.8 x 3.5 cm fatty lesion seen laterally (image 29, 9). With few internal septations. Displaced by herniated fat. No enhancing scrotal lesions. IMPRESSION: 1. No enhancing scrotal lesions. 2. 3.2 x 1.8 x 3.5 cm fatty lesion seen in the left scrotal sac laterally. Could reflect area of fat necrosis or spermatic cord lipoma. Could correlate with lesion seen on prior ultrasound. Recommend continued ultrasound follow-up to document stability. 3. Large inguinal hernias bilaterally, left greater than right with fat extending into the scrotum. Left hernia contains a loop of colon [facility] Transcribe Date/Time: Dec 07 2022 9:43A Dictated by : EVANS ADAM MD This examination was interpreted and the report reviewed and electronically signed by: EVANS ADAM MD on Dec 07 2022 10:19AM EST [id number] Normal [facility] NURSING PROGon 12-06-2022 NURSING PROG HNO ID: [id number] Author: Melanie Pierre RN Service: Nursing Author Type: Registered Nurse Type: Nursing Progress Note Filed: 12/06/2022 9:12 AM Note Text: Radiology Service Progress Note DATE OF SERVICE: December 06, 2022 TIME: 9:07 AM PATIENT WEIGHT: 246 LBS PATIENT IDENTITY VERIFICATION COMPLETED USING TWO (2) STANDARD IDENTIFIERS: Name and Date of confirmed by patient verbally. FALL SCREENING: Has the patient had 2 falls in the last year or 1 fall with injury or currently using an Ambulatory Assistive Device (Walker, Cane, Wheelchair, Crutches, etc.)? No PATIENT GENDER DATA: Male ALLERGIES: Reviewed and unchanged CONTRAST ALLERGY: No EXAM: MRI - CONTRAST TYPE: GROUP II IV SITE: Ambulatory: A peripheral IV was started in the Right forearm with a #22g diffusics.. and A Saline lock was inserted per protocol IV SITE APPEARANCE: Clean,Dry and Intact SIGNATURE: Melanie Pierre RN PATIENT NAME: Yoni Ramirez DATE: December 06, 2022 TIME: 9:07 AM [facility] ALLIED HEALTHon 12-04-2022 ALLIED HEALTH HNO ID: [id number] Author: ROSY Campoverde Service: Radiology Author Type: Security Operations Analyst Type: Allied Health Filed: 12/04/2022 4:34 PM Note Text: Radiology Service Progress Note PATIENT NAME: Yoni Ramirez DATE OF SERVICE: December 04, 2022 TIME: 4:33 PM PATIENT IDENTITY VERIFICATION COMPLETED USING TWO (2) IDENTIFIERS: Name and Date of confirmed by patient verbally and Name and Date of confirmed by identification band. FALL SCREENING: Has the patient had 2 falls in the last year or 1 fall with injury or currently using an Ambulatory Assistive Device (Walker, Cane, Wheelchair, Crutches, etc.)? No PATIENT GENDER DATA: Male PATIENT RELEVANT IMPLANT DATA REVIEWED: Yes RADIOLOGY DEPARTMENT: MR; Exam(s) Completed: Body: Pelvis PERIPHERAL IV DATA: Site assessment: Clean,Dry and Intact, Site disposition Discontinued SIGNED BY: ROSY Campoverde December 04, 2022 4:33 PM [facility] MRI PELVIS WO/W IVCONon 11-16 MRI PELVIS WO/W IVCON * * *Final Report* * * DATE OF EXAM: Dec 04 2022 4:56PM [facility] 0742 - MRI PELVIS WO/W IVCON / PROCEDURE REASON: multiple diagnoses * * * * Physician Interpretation * * * * Examination: MRI PELVIS WO/W IVCON, MRI PELVIS WO/W IVCON Clinical History: Abdominal mass, left lower quadrant , scrotal mass on left Technique: MRI of the pelvis prior to and following the demonstration of IV contrast Exam Date: 12/04/2022 4:56 PM Comparison: CT 11/06/2022, ultrasound 10/11/2022 Contrast: IV 20 ml of Dotarem RESULT: Parapelvic cysts in the kidneys bilaterally. Bladder is under distended. Prostate is absent. Colonic diverticulosis. No obvious lymphadenopathy. 1.3 x 0.9 cm area of fat necrosis in the pelvis on the right anteriorly (image 59, 13 Large right sided inguinal hernia containing fat extending into the scrotum. Larger left-sided inguinal hernia containing colon and fat. Ill-defined soft tissue in the left inguinal region, likely from prior hernia repair. Fat extending into the scrotal sacs bilaterally from aforementioned inguinal hernias, left greater than right. Testicles appear normal bilaterally. Trace hydroceles bilaterally. 3.2 x 1.8 x 3.5 cm fatty lesion seen laterally (image 29, 9). With few internal septations. Displaced by herniated fat. No enhancing scrotal lesions. IMPRESSION: 1. No enhancing scrotal lesions. 2. 3.2 x 1.8 x 3.5 cm fatty lesion seen in the left scrotal sac laterally. Could reflect area of fat necrosis or spermatic cord lipoma. Could correlate with lesion seen on prior ultrasound. Recommend continued ultrasound follow-up to document stability. 3. Large inguinal hernias bilaterally, left greater than right with fat extending into the scrotum. Left hernia contains a loop of colon Coat Ironer Hand: ROSANA Transcribe Date/Time: Dec 07 2022 9:43A Dictated by : EVANS ADAM MD This examination was interpreted and the report reviewed and electronically signed by: EVANS ADAM MD on Dec 07 2022 10:19AM EST [id number] Normal [facility] NURSING PROGon 12-04-2022 NURSING PROG HNO ID: [id number] Author: Sima Craig RN Service: Nursing Author Type: Registered Nurse Type: Nursing Progress Note Filed: 12/04/2022 2:37 PM Note Text: Radiology Service Progress Note DATE OF SERVICE: December 04, 2022 TIME: 2:36 PM PATIENT WEIGHT: 246LBS PATIENT IDENTITY VERIFICATION COMPLETED USING TWO (2) STANDARD IDENTIFIERS: Name and Date of confirmed by patient verbally and Name and Date of confirmed by identification band. FALL SCREENING: Has the patient had 2 falls in the last year or 1 fall with injury or currently using an Ambulatory Assistive Device (Walker, Cane, Wheelchair, Crutches, etc.)? No PATIENT GENDER DATA: Male ALLERGIES: Reviewed and unchanged CONTRAST ALLERGY: No EXAM: MRI - CONTRAST TYPE: GROUP II IV SITE: Ambulatory: A peripheral IV was started in the Right antecubital site with a Angio cath: 22 gauge. IV SITE APPEARANCE: Clean,Dry and Intact SIGNATURE: Sima Craig RN PATIENT NAME: Yoni Ramirez DATE: December 04, 2022 TIME: 2:36 PM Normal [facility] AFP (TUMOR MARKER)on 023 AFP, Serum, Tumor Marker <1.8 Normal 0.0-8.4 [facility] Comment on above: Result Comment: dMetrics Electrochemiluminescence Immunoassay (ECLIA) . Values obtained with different assay methods or kits cannot be used interchangeably. Results cannot be interpreted as absolute evidence of the presence or absence of malignant disease. . This test is not interpretable in females. Performed By: #### A FP. #### [facility] [address] [place] [address] Dr. Alex Eddy HCG QUANT TUMOR MARKERon HCG QNT TUMOR MARKER <1 Normal 0-3 [facility] Comment on above: Result Comment: dMetrics Electrochemiluminescence Immunoassay (ECLIA) . The [employer] HCG + beta assay recognizes the holo-hormone, human chorionic gonadotropin (hCG), nicked forms of hCG, the beta-core fragment and the free beta-subunit in human serum and plasma. . Results obtained with different test methods or kits cannot be used interchangeably. This assay is intended for the early detection of . The result should not be used for treatment or for diagnostic purposes without confirmation of the diagnosis by another medically established diagnostic product or procedure. . This test was developed and its performance characteristics determined by [employer]. It has not been cleared or approved by the Food and Drug Administration for use as a tumor marker. . This test is not interpretable as a tumor marker in females. Performed By: #### H CGTMOR #### [facility] [address] [place] [address] Dr. Alex Eddy CREATININEon 11-06-2022 Creatinine [Mass/Vol] 0.60 mg/dL Critically low 0.70-1.30 [facility] Comment on above: Performed By: #### C SILVANA #### [facility] [address] [place] [address] [address] Alex Eddy EGFR-AF STATELESS >60 Normal >=60 [facility] Comment on above: Performed By: #### C SILVANA #### [facility] [address] [place] [address] [address] Alex Eddy EGFR-NON AF STATELESS >60 Normal >=60 [facility] Comment on above: Performed By: #### C SILVANA #### [facility] [address] [place] [address] CHEST W CONon 11-06-2022 CT CHEST W CON EXAMINATION: CT CHES T W CON, CT ABD/PELV W CON HISTORY: Disorder of male genital organ ; history of prostate cancer; hydrocele, scrotal mass COMPARISON: CTA chest abdomen pelvis 03/08/2021, ultrasound scrotum 10/03/2022 TECHNIQUE: Axial, Coronal, and Sagittal CT images were obtained without and/or with IV contrast as indicated by examination type. Dose reduction techniques were achieved by using automated exposure control and/or adjustment of mA and/or kV according to patient size and/or use of iterative reconstruction technique. FINDINGS: LUNGS: No visible pulmonary disease. PLEURA: No mass or effusion. VASCULATURE: No visible pulmonary arterial thrombus or attenuation. MIRNA: Calcified right hilar lymph nodes. MEDIASTINUM: No mass or adenopathy. CARDIAC: Atherosclerotic coronary artery disease. No enlargement, pericardial thickening, or pericardial effusion. CHEST WALL: No mass or axillary adenopathy. LIVER: No enlargement, atrophy, abnormal density, or significant focal lesion. BILIARY: No dilatation or calcification. PANCREAS: No lesion, fluid collection, ductal dilatation, or atrophy. SPLEEN: No enlargement or focal lesion. ADRENALS: No mass or enlargement. KIDNEYS: A few benign-appearing cortical and parapelvic renal cysts. Nonobstructing 2 mm stone within left kidney. BOWEL/MESENTERY: Marked diverticulosis of sigmoid colon along with numerous diverticula scattered along the length of colon. Proximal sigmoid colon extends into the left inguinal hernia to near the level of the scrotum, with a 3.0 cm area of inflammatory changes within the hernia adjacent the sigmoid colon, likely an inflamed diverticulum. AORTA/VASCULAR: No aneurysm. RETROPERITONEUM: No mass or adenopathy. LYMPH NODES: No adenopathy. URINARY BLADDER: No visible focal wall thickening, lesion, or calculus. PELVIC ORGANS: Suspect prostatectomy. ABDOMINAL WALL: Large fat filled right inguinal hernia. Very large fat filled left inguinal hernia extending into the scrotum and containing a long loop of sigmoid colon which extends to near level of scrotum. BONES: No bony lesion or fracture. Marked degenerative disc disease L4-L5, L5-S1. OTHER: Negative. IMPRESSION: 1. No pulmonary embolism. 2. No pulmonary infiltrates or suspicious findings within the chest. 3. Nonobstructing left nephrolithiasis. 4. Large left inguinal hernia with fat extending into scrotum and a long loop of sigmoid colon extending to near the level of the scrotum. 3 cm area of density within the inguinal hernia suspicious for acute diverticulitis. This could also represent soft tissue scarring from prior hernia repair. 5. Large fat filled right inguinal hernia without strangulation or bowel involvement. 6. No appreciable bone metastasis. Electronically authenticated by: MIKE LYNCH Date: 2022-11-06 15:28 Normal [facility] LDHon 11-06-2022 LDH 158 U/L Normal 85-227 [facility] Comment on above: Performed By: #### L #### [facility] [address] [place] [address] [address] Alex Eddy US SCROTUMon 10-11-2022 US SCROTUM EXAMINATION: US SCRO BRITTANY HISTORY: History of malignant neoplasm of prostate COMPARISON: 08/05/2022 TECHNIQUE: High-resolution sonographic imaging of the scrotum and contents was performed. FINDINGS: The right testicle is stable in size, contour and heterogeneous echotexture measuring 4.8 x 3.1 x 2.3 cm. No focal mass. Normal color flow. The right epididymis is normal in appearance Small to moderate right varicocele. No right hydrocele. Right fat containing inguinal hernia The left testicle is stable in size, contour and heterogeneous echotexture measuring 4.7 x 3.2 x 1.9 cm. Normal color flow. The left epididymis is poorly visualized Identified in the left hemiscrotum corresponding to the patient's palpable mass is a solid vascular 2.6 x 2.9 x 1.6 cm mass separate from the testicle Small moderate left varicocele. No left hydrocele. Left fat-containing inguinal hernia IMPRESSION: 2.9 cm solid vascular left hemiscrotal mass. Indeterminate, malignancy should be considered Heterogeneous appearance of the testicles, nonspecific Electronically authenticated by: CASSIDY SAMUEL Date: 2022-10-11 16:29 Normal [facility] US SCROTUMon 08-06-2022 US SCROTUM EXAMINATION: US SCRO BRITTANY HISTORY: Disorder of male genital organ COMPARISON: No relevant comparison available. TECHNIQUE: High-resolution sonographic imaging of the scrotum and contents was performed. FINDINGS: The right testicle is heterogeneous in echotexture with no focal mass measuring 4.4 x 2.2 x 2.2 cm. Normal color flow. The right epididymis is normal . Small to moderate right varicocele. The left testicle is homogeneous in size, contour and echotexture with no focal mass. The testicle measures 3.9 x 2.9 x 2.8 cm. Normal color flow The left epididymis is normal. Small left hydrocele Small bilateral inguinal hernias containing fat IMPRESSION: Heterogeneous appearance of the right testicle with no focal mass. This is nonspecific Trace left hydrocele Small to moderate right varicocele Electronically authenticated by: CASSIDY SAMUEL Date: 2022-08-06 16:20 Normal [facility] Vital Signs Date Time Vital Sign Value Performing Clinician Facility 06-04-2024 09:21-0400 Diastolic blood pressure 78 mm[Hg] Radha Lue [facility] 06-04-2024 09:21-0400 Mean blood pressure 99 mm[Hg] Radha Lue [facility] 06-04-2024 09:21-0400 Systolic blood pressure 142 mm[Hg] Radha Lue [facility] 06-04-2024 09:03-0400 Blood Pressure Location Radha Lue [facility] 06-04-2024 09:03-0400 Heart rate 56 /min Radha Lue [facility] 06-04-2024 09:03-0400 Systolic blood pressure 146 mm[Hg] Radha Whitten [facility] 05-20-2024 12:58-0400 Body mass index (BMI) [Ratio] 31.95 kg/m2 TUNG Hernandez MD Work Phone: [facility] 05-20-2024 12:58-0400 Body temperature 98.4 [degF] TUNG Hernandez MD Work Phone: [facility] 05-20-2024 12:58-0400 Body weight 101 kg TUNG Hernandez MD Work Phone: [facility] 05-20-2024 12:58-0400 Diastolic blood pressure 80 mm[Hg] TUNG Hernandez MD Work Phone: [facility] 05-20-2024 12:58-0400 Heart rate 59 /min TUNG Hernandez MD Work Phone: [facility] 05-20-2024 12:58-0400 Respiratory rate 18 /min TUNG Hernandez MD Work Phone: [facility] 05-20-2024 12:58-0400 SaO2% (BldA) [Mass fraction] 96 % TUNG Hernandez MD Work Phone: [facility] 05-20-2024 12:58-0400 Systolic blood pressure 147 mm[Hg] TUNG Hernandez MD Work Phone: [facility] 04-01-2024 10:04-0400 Body temperature 97 [degF] Donato Bishop MD Work Phone: [facility] 04-01-2024 10:04-0400 Diastolic blood pressure 67 mm[Hg] Donato Bishop MD Work Phone: [facility] 04-01-2024 10:04-0400 Heart rate 58 /min Donato Bishop MD Work Phone: [facility] 04-01-2024 10:04-0400 SaO2% (BldA) [Mass fraction] 96 % Donato Bishop MD Work Phone: [facility] 04-01-2024 10:04-0400 Systolic blood pressure 162 mm[Hg] Donato Bishop MD Work Phone: [facility] 02-12-2024 10:44-0400 Body height 177.8 cm [facility] 02-12-2024 10:44-0400 Body mass index (BMI) [Ratio] 32.8 kg/m2 [facility] 02-12-2024 10:44-0400 Body weight 103.92 kg [facility] 02-12-2024 10:44-0400 Diastolic blood pressure 71 mm[Hg] [facility] 02-12-2024 10:44-0400 Heart rate 53 /min [facility] 02-12-2024 10:44-0400 Respiratory rate 12 /min [facility] 02-12-2024 10:44-0400 Systolic blood pressure 124 mm[Hg] [facility] 11-28-2023 10:32-0500 Blood Pressure Location Radha Lue [facility] 11-28-2023 10:32-0500 Diastolic blood pressure 84 mm[Hg] Radha Lue [facility] 11-28-2023 10:32-0500 Heart rate 106 /min Radha Lue [facility] 11-28-2023 10:32-0500 Respiratory rate 16 /min Radha Lue [facility] 11-28-2023 10:32-0500 Systolic blood pressure 135 mm[Hg] Radha Lue [facility] 11-20-2023 13:16-0500 Body temperature 97.3 [degF] NA Engeler MD Work Phone: [facility] 11-20-2023 13:16-0500 Body weight 103.9 kg TUNG Hernandez MD Work Phone: [facility] 11-20-2023 13:16-0500 Diastolic blood pressure 76 mm[Hg] TUNG Hernandez MD Work Phone: [facility] 11-20-2023 13:16-0500 Heart rate 59 /min TUNG Hernandez MD Work Phone: [facility] 11-20-2023 13:16-0500 Respiratory rate 16 /min TUNG Hernandez MD Work Phone: [facility] 11-20-2023 13:16-0500 SaO2% (BldA) [Mass fraction] 96 % TUNG Hernandez MD Work Phone: [facility] 11-20-2023 13:16-0500 Systolic blood pressure 145 mm[Hg] TUNG Hernandez MD Work Phone: [facility] 10-11-2023 11:00-0500 Body height 177.8 cm Bro Ball Other [employer] Other 10-11-2023 11:00-0500 Body mass index (BMI) [Ratio] 32.51 kg/m2 Bro Ball Other [employer] Other 10-11-2023 11:00-0500 Body weight 102.79 kg Bro Ball Other [employer] Other 10-11-2023 11:00-0500 Diastolic blood pressure 76 mm[Hg] Bro Ball Other [employer] Other 10-11-2023 11:00-0500 Respiratory rate 12 /min Bro Ball Other [employer] Other 10-11-2023 11:00-0500 Systolic blood pressure 167 mm[Hg] Bro Ball Other [facility] [employer] Other 08-15-2023 08:46-0400 Blood Pressure Location Radha Lue [facility] 08-15-2023 08:46-0400 Diastolic blood pressure 76 mm[Hg] Radha Lue [facility] 08-15-2023 08:46-0400 Heart rate 80 /min Radha Lue [facility] 08-15-2023 08:46-0400 Respiratory rate 16 /min Radha Lue [facility] 08-15-2023 08:46-0400 Systolic blood pressure 132 mm[Hg] Radha Lue [facility] 07-13-2023 10:00-0400 Body height 177.8 cm Bro Ball Other [facility] [employer] Other 07-13-2023 10:00-0400 Body mass index (BMI) [Ratio] 32.57 kg/m2 Bro Ball Other [facility] [employer] Other 07-13-2023 10:00-0400 Body weight 102.97 kg Bro Ball Other [facility] [employer] Other 07-13-2023 10:00-0400 Diastolic blood pressure 70 mm[Hg] Bro Ball Other [facility] [employer] Other 07-13-2023 10:00-0400 Respiratory rate 12 /min Bro Ball Other [facility] [employer] Other 07-13-2023 10:00-0400 Systolic blood pressure 143 mm[Hg] Bro Ball Other [employer] Other 05-15-2023 13:24-0400 Body temperature 97.5 [degF] TUNG Hernandez MD Work Phone: [facility] 05-15-2023 13:24-0400 Body weight 103.42 kg TUNG Hernandez MD Work Phone: [facility] 05-15-2023 13:24-0400 Diastolic blood pressure 77 mm[Hg] TUNG Hernandez MD Work Phone: [facility] 05-15-2023 13:24-0400 Heart rate 55 /min TUNG Hernandez MD Work Phone: [facility] 05-15-2023 13:24-0400 Respiratory rate 16 /min TUNG Hernandez MD Work Phone: [facility] 05-15-2023 13:24-0400 SaO2% (BldA) [Mass fraction] 96 % TUNG Hernandez MD Work Phone: [facility] 05-15-2023 13:24-0400 Systolic blood pressure 153 mm[Hg] TUNG Hernandez MD Work Phone: [facility] 04-11-2023 13:30-0400 Body height 177.8 cm Bro Ball Other [employer] Other 04-11-2023 13:30-0400 Body mass index (BMI) [Ratio] 32.88 kg/m2 Bro Ball Other [employer] Other 04-11-2023 13:30-0400 Body weight 103.97 kg Bro Ball Other [employer] Other 04-11-2023 13:30-0400 Diastolic blood pressure 72 mm[Hg] Bro Ball Other [employer] Other 04-11-2023 13:30-0400 Respiratory rate 12 /min Bro Ball Other [employer] Other 04-11-2023 13:30-0400 Systolic blood pressure 124 mm[Hg] Bro Ball Other [employer] Other 02-21-2023 15:15-0400 Body height 177.8 cm Bro Ball Other [employer] Other 02-21-2023 15:15-0400 Body mass index (BMI) [Ratio] 34.89 kg/m2 Bro Ball Other [employer] Other 02-21-2023 15:15-0400 Body weight 110.32 kg Bro Ball Other [employer] Other 02-21-2023 15:15-0400 Diastolic blood pressure 76 mm[Hg] Bro Ball Other [employer] Other 02-21-2023 15:15-0400 Respiratory rate 12 /min Bro Ball Other [employer] Other 02-21-2023 15:15-0400 Systolic blood pressure 165 mm[Hg] Bro Ball Other [employer] Other 02-14-2023 13:30-0400 Body height 177.8 cm Pacc 2 Work Phone: [facility] 02-14-2023 13:30-0400 Body temperature 98.1 [degF] Pacc 2 Work Phone: [facility] 02-14-2023 13:30-0400 Body weight 109.77 kg Pacc 2 Work Phone: [facility] 02-14-2023 13:30-0400 Diastolic blood pressure 81 mm[Hg] Pacc 2 Work Phone: [facility] 02-14-2023 13:30-0400 Heart rate 61 /min Pacc 2 Work Phone: [facility] 02-14-2023 13:30-0400 Respiratory rate 16 /min Pacc 2 Work Phone: [facility] 02-14-2023 13:30-0400 SaO2% (BldA) [Mass fraction] 96 % Pacc 2 Work Phone: [facility] 02-14-2023 13:30-0400 Systolic blood pressure 164 mm[Hg] Pacc 2 Work Phone: [facility] 02-05-2023 17:00-0400 Body height 177.8 cm Rbo Ball Other [employer] Other 02-05-2023 17:00-0400 Body mass index (BMI) [Ratio] 34.89 kg/m2 Bro Ball Other [employer] Other 02-05-2023 17:00-0400 Body weight 110.32 kg Bro Ball Other [employer] Other 02-05-2023 17:00-0400 Diastolic blood pressure 79 mm[Hg] Bro Ball Other [employer] Other 02-05-2023 17:00-0400 Respiratory rate 12 /min Bro Ball Other [employer] Other 02-05-2023 17:00-0400 Systolic blood pressure 175 mm[Hg] Bro Ball Other [employer] Other 01-29-2023 11:00-0400 Body height 177.8 cm Bro Ball Other [employer] Other 01-29-2023 11:00-0400 Body mass index (BMI) [Ratio] 34.89 kg/m2 Bro Ball Other [facility] [employer] Other 01-29-2023 11:00-0400 Body weight 110.32 kg Bro Ball Other [facility] [employer] Other 01-29-2023 11:00-0400 Diastolic blood pressure 80 mm[Hg] Bro Ball Other [facility] [employer] Other 01-29-2023 11:00-0400 Respiratory rate 12 /min Bro Ball Other [facility] [employer] Other 01-29-2023 11:00-0400 Systolic blood pressure 166 mm[Hg] Bro Ball Other [facility] [employer] Other 01-24-2023 08:41-0400 Blood Pressure Location CIERRA YESSENIA [facility] 01-24-2023 08:41-0400 Diastolic blood pressure 69 mm[Hg] CIERRA YESSENIA [facility] 01-24-2023 08:41-0400 Heart rate 54 /min CIERRA YESSENIA [facility] 01-24-2023 08:41-0400 Systolic blood pressure 142 mm[Hg] CIERRA YESSENIA [facility] 01-11-2023 09:34-0400 Blood Pressure Location CIERRA YESSENIA [facility] 01-11-2023 09:34-0400 Diastolic blood pressure 82 mm[Hg] CIERRA YESSENIA [facility] 01-11-2023 09:34-0400 Heart rate 52 /min CIERRA YESSENIA [facility] 01-11-2023 09:34-0400 Systolic blood pressure 172 mm[Hg] CIERRA YESSENIA [facility] 12-28-2022 09:17-0400 Blood Pressure Location CIERRA YESSENIA [facility] 12-28-2022 09:17-0400 Diastolic blood pressure 66 mm[Hg] CIERRA YESSENIA [facility] 12-28-2022 09:17-0400 Heart rate 71 /min CIERRA YESSENIA [facility] 12-28-2022 09:17-0400 Systolic blood pressure 128 mm[Hg] CIERRA YESSENIA [facility] 12-26-2022 10:11-0400 Body height 177.8 cm Donato Bishop MD Work Phone: [facility] 12-26-2022 10:11-0400 Body temperature 97.3 [degF] Donato Bishop MD Work Phone: [facility] 12-26-2022 10:110400 Body weight 110.22 kg Donato Bishop MD Work Phone: [facility] 12-26-2022 10:11-0400 Diastolic blood pressure 61 mm[Hg] Donato Bishop MD Work Phone: [facility] 12-26-2022 10:11-0400 Heart rate 57 /min Donato Bishop MD Work Phone: [facility] 12-26-2022 10:11-0400 Respiratory rate 19 /min Donato Bishop MD Work Phone: [facility] 12-26-2022 10:11-0400 SaO2% (BldA) [Mass fraction] 97 % Donato Bishop MD Work Phone: [facility] 12-26-2022 10:11-0400 Systolic blood pressure 179 mm[Hg] Donato Bishop MD Work Phone: [facility] 12-14-2022 09:24-0500 Blood Pressure Location CIERRA ZHU [facility] 12-14-2022 09:24-0500 Diastolic blood pressure 71 mm[Hg] CIERRA ZHU [facility] 12-14-2022 09:24-0500 Systolic blood pressure 136 mm[Hg] CIERRA ZHU [facility] 12-12-2022 13:03-0500 Body temperature 96.4 [degF] TUNG Hernandez MD Work Phone: [facility] 12-12-2022 13:03-0500 Body weight 110.68 kg TUNG Hernandez MD Work Phone: [facility] 12-12-2022 13:03-0500 Diastolic blood pressure 74 mm[Hg] TUNG Hernandez MD Work Phone: [facility] 12-12-2022 13:03-0500 Heart rate 57 /min TUNG Hernandez MD Work Phone: [facility] 12-12-2022 13:03-0500 Respiratory rate 18 /min TUNG Hernandez MD Work Phone: [facility] 12-12-2022 13:03-0500 SaO2% (BldA) [Mass fraction] 98 % TUNG Hernandez MD Work Phone: [facility] 12-12-2022 13:03-0500 Systolic blood pressure 169 mm[Hg] TUNG Hernandez MD Work Phone: [facility] 11-30-2022 09:18-0500 Blood Pressure Location CIERRA YESSENIA [facility] 11-30-2022 09:18-0500 Diastolic blood pressure 58 mm[Hg] CIERRA YESSENIA [facility] 11-30-2022 09:18-0500 Heart rate 57 /min CIERRA YESSENIA [facility] 11-30-2022 09:18-0500 Systolic blood pressure 128 mm[Hg] CIERRA YESSENIA [facility] 11-23-2022 08:37-0500 Blood Pressure Location CIERRA YESSENIA [facility] 11-23-2022 08:37-0500 Diastolic blood pressure 68 mm[Hg] CIERRA YESSENIA [facility] 11-23-2022 08:37-0500 Heart rate 57 /min CIERRA YESSENIA [facility] 11-23-2022 08:37-0500 Systolic blood pressure 127 mm[Hg] CIERRA YESSENIA [facility] 11-09-2022 12:58-0500 Body temperature 96.69 [degF] TUNG Hernandez MD Work Phone: [facility] 11-09-2022 12:58-0500 Body weight 111.58 kg TUNG Hernandez MD Work Phone: [facility] 11-09-2022 12:58-0500 Diastolic blood pressure 75 mm[Hg] TUNG Hernandez MD Work Phone: [facility] 11-09-2022 12:58-0500 Heart rate 62 /min TUNG Hernandez MD Work Phone: [facility] 11-09-2022 12:58-0500 Respiratory rate 18 /min TUNG Hernandez MD Work Phone: [facility] 11-09-2022 12:58-0500 SaO2% (BldA) [Mass fraction] 98 % TUNG Hernandez MD Work Phone: [facility] 11-09-2022 12:58-0500 Systolic blood pressure 174 mm[Hg] NA Jose WHARTON Work Phone: [facility] 11-08-2022 10:58-0500 Blood Pressure Location Radha Lue [facility] 11-08-2022 10:58-0500 Diastolic blood pressure 79 mm[Hg] Radha Lue [facility] 11-08-2022 10:58-0500 Heart rate 68 /min Radha Lue [facility] 11-08-2022 10:58-0500 Systolic blood pressure 139 mm[Hg] Radha Lue [facility] 10-04-2022 08:32-0500 Blood Pressure Location Radha Lue [facility] 10-04-2022 08:32-0500 Diastolic blood pressure 66 mm[Hg] Radha Lue [facility] 10-04-2022 08:32-0500 Heart rate 57 /min Radha Lue [facility] 10-04-2022 08:32-0500 Systolic blood pressure 151 mm[Hg] Radha Lue [facility] 07-13-2022 13:20-0400 Body temperature 96.69 [degF] TUNG Hernandez MD Work Phone: [facility] 07-13-2022 13:20-0400 Body weight 108.41 kg TUNG Hernandez MD Work Phone: [facility] 07-13-2022 13:20-0400 Diastolic blood pressure 81 mm[Hg] TUNG Hernandez MD Work Phone: [facility] 07-13-2022 13:20-0400 Heart rate 56 /min TUNG Hernandez MD Work Phone: [facility] 07-13-2022 13:20-0400 Respiratory rate 18 /min TUNG Hernandez MD Work Phone: [facility] 07-13-2022 13:20-0400 SaO2% (BldA) [Mass fraction] 96 % TUNG Hernandez MD Work Phone: [facility] 07-13-2022 13:20-0400 Systolic blood pressure 164 mm[Hg] TUNG Hernandez MD Work Phone: [facility] 03-28-2022 08:36-0400 Blood Pressure Location Sushant Freedman Jr. [facility] 03-28-2022 08:36-0400 Diastolic blood pressure 78 mm[Hg] Sushant Freedman Jr. [facility] 03-28-2022 08:36-0400 Heart rate 62 /min Sushant Freedman Jr. [facility] 03-28-2022 08:36-0400 Respiratory rate 16 /min Sushant Freedman Jr. [facility] 03-28-2022 08:36-0400 Systolic blood pressure 144 mm[Hg] Sushant Freedman Jr. [facility] Encounters Encounter Date Encounter Type Care Provider Facility Start: 12-10-2024 ambulatory Radha KermitBrian Granadosmelchor Facility:[facility] Start: 06-04-2024 End: 06-04-2024 ambulatory Radha Whitten Facility:[facility] Start: 06-04-2024 End: 06-04-2024 Patient encounter procedure Radha CarmenBrian Fish [facility] Start: 05-20-2024 End: 05-20-2024 ambulatory BRO CHAVEZ Facility:[facility] Start: 05-20-2024 End: 05-20-2024 Patient encounter procedure Aaliyah Hernandez MD Work Phone: Radiation Oncology Comment on above: Malignant neoplasm o f prostate (HCC) (Primary Dx) Start: 05-13-2024 End: 05-13-2024 ambulatory BRO CHAVEZ Facility:[facility] Start: 04-09-2024 End: 04-09-2024 ambulatory [facility] Work Phone: Start: 04-09-2024 End: 04-09-2024 Patient encounter procedure [facility] Work Phone: Start: 04-01-2024 End: 04-01-2024 ambulatory David Pycraft RT(R) Radiology Ct Scan Comment on above: Radiology CT Start: 04-01-2024 End: 04-01-2024 Patient encounter procedure David Pycraft RT(R) Radiology Ct Scan Comment on above: S/P repair of ventra l hernia (Primary Dx) Start: 04-01-2024 End: 04-01-2024 Subsequent hospital visit by physician [facility] Scan Comment on above: Ventral incisional h ernia [K43.2] Start: 03-24-2024 End: 03-24-2024 ambulatory DEBBIE ANDRE Not Available Start: 03-11-2024 End: 03-11-2024 ambulatory ROSY HIGH Not Available Start: 02-12-2024 End: 02-12-2024 ambulatory [facility] Work Phone: Start: 02-12-2024 End: 02-12-2024 Patient encounter procedure [facility] Work Phone: Start: 01-30-2024 Non-patient / Non-visit [facility] Work Phone: Start: 12-12-2023 Non-patient / Non-visit [facility] [place] [facility] Work Phone: Start: 11-28-2023 End: 11-28-2023 ambulatory Radha Whitten Facility:[facility] Start: 11-28-2023 End: 11-28-2023 Patient encounter procedure Radha Whitten [facility] Start: 11-20-2023 End: 11-20-2023 ambulatory Aaliyah HERNANDEZ Facility:[facility] Start: 11-20-2023 End: 11-20-2023 Patient encounter procedure Aaliyah Hernandez MD Work Phone: Radiation Oncology Comment on above: Malignant neoplasm o f prostate (HCC) (Primary Dx) Start: 11-13-2023 End: 11-13-2023 ambulatory BRO CHAVEZ Facility:[facility] Start: 10-16-2023 End: 10-16-2023 ambulatory Bro Chavez Other [employer] Other Start: 10-16-2023 Telephone encounter Bro Chavez FP Aaliyah [facility] Start: 10-11-2023 End: 10-11-2023 ambulatory Bro Chavez Other [employer] Other Start: 10-11-2023 Patient encounter procedure Bro Chavez [facility] Start: 10-11-2023 Telephone encounter Bro Chavez [facility] Start: 10-04-2023 End: 10-04-2023 ambulatory Bro Chavez Other [employer] Other Start: 10-04-2023 Telephone encounter Bro Chavez [facility] Start: 10-02-2023 End: 10-02-2023 ambulatory Bro Chavez Other [employer] Other Start: 10-02-2023 Telephone encounter Bro Chavez [facility] Start: 08-22-2023 End: 08-22-2023 ambulatory Bro Chavez Other [employer] Other Start: 08-22-2023 Telephone encounter Bro Chavez [facility] Start: 08-21-2023 End: 08-21-2023 ambulatory Bro Chavez Other [employer] Other Start: 08-21-2023 Office outpatient vi sit 15 minutes Bro Chavez [facility] Start: 08-21-2023 Telephone encounter Bro SANTOS [facility] Start: 08-15-2023 End: 08-15-2023 ambulatory Radha Whitten Facility:[facility] Start: 08-15-2023 End: 08-15-2023 Patient encounter procedure Radha Whitten [facility] Start: 07-24-2023 End: 07-24-2023 ambulatory Bro Chavez Other [employer] Other Start: 07-24-2023 Telephone encounter Bro SANTOS [facility] Start: 07-16-2023 End: 07-16-2023 ambulatory Bro Chavez Other [employer] Other Start: 07-16-2023 Telephone encounter Bro SANTOS [facility] Start: 07-13-2023 End: 07-13-2023 ambulatory Bro Chavez Other [employer] Other Start: 07-13-2023 Office outpatient vi sit 25 minutes Bro Chavez [facility] Start: 07-13-2023 Telephone encounter Bro SANTOS [facility] Start: 05-15-2023 End: 05-15-2023 Patient encounter procedure G Raz Hernandez MD Work Phone: Radiation Oncology Comment on above: Malignant neoplasm o f prostate (HCC) (Primary Dx) Start: 04-11-2023 End: 04-11-2023 ambulatory Bro Chavez Other [employer] Other Start: 04-11-2023 Office outpatient vi sit 25 minutes Bro Chavez [facility] Start: 04-10-2023 End: 04-10-2023 ambulatory Bro Chavez Other [employer] Other Start: 04-10-2023 Telephone encounter Bro [facility] Start: 03-15-2023 End: 03-15-2023 ambulatory Bro Chavez Other [employer] Other Start: 03-15-2023 Initial nursing faci lity care/day 35 minutes Bro Chavez [facility] Start: 02-24-2023 End: 02-24-2023 ambulatory Bro Chavez Other [employer] Other Start: 02-24-2023 Telephone encounter Bro SANTOS [facility] Start: 02-23-2023 Evaluation and management of inpatient DONATO BISHOP Facility:[facility] Start: 02-21-2023 End: 02-22-[address] BRO CHAVEZ [employer] Other Start: 02-21-2023 Office outpatient vi sit 15 minutes Bro Chavez [facility] Start: 02-14-2023 End: 02-14-2023 Admission to establishment [facility] [place] [facility] Work Phone: [facility] Start: 02-14-2023 End: 02-14-2023 [facility] Work Phone: Pre Anesthesia Comment on above: Preop examination (P rimary Dx); Primary hypertension; Prostate cancer (HCC); Obesity, Class I, BMI 30-34.9; Obstructive sleep apnea syndrome Start: 02-14-2023 End: 02-14-2023 [facility] Start: 02-06-2023 End: 02-06-2023 ambulatory Bro Chavez Other [employer] Other Start: 02-06-2023 Telephone encounter Bro Chavez [facility] Start: 02-05-2023 End: 02-05-2023 ambulatory Bro Chavez Other [employer] Other Start: 02-05-2023 Office outpatient vi sit 15 minutes Bro Chavez [facility] Start: 01-29-2023 End: 01-29-2023 ambulatory Bro Chavez Other [employer] Other Start: 01-29-2023 Encounter for other preprocedural examination Bro Chavez [facility] Start: 01-29-2023 Office outpatient vi sit 25 minutes Bro Chavez [facility] Start: 01-24-2023 End: 01-24-2023 Patient encounter procedure CIERRA ZHU [facility] Start: 01-11-2023 End: 01-11-2023 Patient encounter procedure CIERRA ZHU [facility] Start: 12-28-2022 End: 12-28-2022 Patient encounter procedure CIERRA ZHU [facility] Start: 12-27-2022 Orders Only Marya mcneil MD Work Phone: General Surgery Start: 12-26-2022 End: 12-26-2022 Patient encounter procedure Donato Bishop MD Work Phone: General Surgery Comment on above: Recurrent left ingui nal hernia (Primary Dx) Start: 12-14-2022 End: 12-14-2022 Patient encounter procedure CIERRA ZHU [facility] Start: 12-12-2022 End: 12-12-2022 Patient encounter procedure Aaliyah Hernandez MD Work Phone: Radiation Oncology Comment on above: Malignant neoplasm o f prostate (HCC) (Primary Dx) Start: 12-06-2022 ambulatory BRO Villasenor y:[facility] Start: 12-06-2022 End: 12-06-2022 Subsequent hospital visit by physician [facility] 2 (I-Stat/3t) Work Phone: Radiology Comment on above: Left lower quadrant abdominal swelling, mass and lump [R19.04] Start: 12-04-2022 ambulatory VANDANA HERNANDEZ Facility:[facility] Start: 12-04-2022 End: 12-04-2022 Subsequent hospital visit by physician [facility] (I-Stat/1.5t) Radiology Comment on above: Prostate cancer (HCC ) [C61] Start: 11-30-2022 End: 11-30-2022 Patient encounter procedure CIERRA ZHU [facility] Start: 11-23-2022 End: 11-23-2022 Patient encounter procedure CIERRA ZHU [facility] Start: 11-16-2022 Patient encounter procedure [facility] Provider [facility] Department Start: 11-09-2022 End: 11-09-2022 Patient encounter procedure Aaliyah Hernandez MD Work Phone: Radiation Oncology Comment on above: Prostate cancer (HCC ) (Primary Dx); Abdominal mass, left lower quadrant Start: 11-08-2022 End: 11-08-2022 Patient encounter procedure Radha Whitten [facility] Start: 11-06-2022 End: 11-07-2022 ambulatory RADHA WHITTEN . Facility:[facility] Start: 10-11-2022 End: 10-12-2022 ambulatory RADHA WHITTEN . Facility:[facility] Start: 10-04-2022 End: 10-04-2022 Patient encounter procedure Radha Whitten [facility] Start: 08-05-2022 End: 08-06-[address] BRO CHAVEZ Facility:[facility] Start: 07-13-2022 End: 07-13-2022 Patient encounter procedure Aaliyah Hernandez MD Work Phone: Radiation Oncology Comment on above: Prostate cancer (HCC ) (Primary Dx) Start: 04-14-[address] BRO CHAVEZ Facili ty:[facility] Start: 03-30-2022 End: 03-30-2022 Patient encounter procedure Aaliyah Hernandez MD Work Phone: Radiation Oncology Comment on above: Prostate cancer (HCC ) (Primary Dx) Start: 03-28-2022 End: 03-28-2022 Patient encounter procedure Sushant Freedman Jr. [facility] Procedures Date Procedure Procedure Detail Performing Clinician Start: 02-23-2023 Antibody screen DONATO AWAN Comment on above: Order Comment: Speci men Type: BLOOD SPECIMENOrdering Facility: [facility] Address: [address] [place] [id number] Performed By: #### T SCR ####[facility] [id number] [place] [id number] [facility] Start: 02-23-2023 Inguinal hernia (disorder) Radha Whitten Start: 02-23-2023 Pelvic floor structu re (body structure) Radha Whitten Start: 03-30-2022 Adult depression scr eening assessment NA Jose WHARTON Work Phone: Start: 07-14-2021 History of external beam radiation therapy Radha Whitten Start: 06-20-2018 Radical retropubic prostatectomy with bilateral pelvic lymphadenectomy Sushant Freedman Jr. Start: 03-28-2018 Transrectal biopsy o f prostate using ultrasound guidance Sushant Freedman Jr. Colonoscopy Sushant Torres Hernia of abdominal cavity (disorder) Sushant Freedman Jr. Tonsillectomy Sushant cristina Plan of Treatment Date Care Activity Detail Author Start: 03-01-2026 DIABETES SCREEN DIABETES SCREEN [facility] Start: 03-01-2026 Diabetes Screening Diabetes Screenserina g [facility] Start: 04-07-2025 End: 04-07-2025 Patient encounter procedure 04/07/2025 10:00 AM EDT Office Visit General Surgery [facility] [[email or web address] [address] [place] [address] [place] [address] [place] [address] Est Pt: 2 yr follow up, s/p open left anterior groin mesh removal (plug and patch) and TAR 03/0585=[id number] General Surgery Comment on above: Est Pt: 2 yr follow up, s/p open left anterior groin mesh removal (plug and patch) and TAR 03/0596=[id number] Start: 12-14-2024 DIABETES SCREEN DIABETES SCREEN [facility] Start: 11-20-2024 End: 02-19-2025 Prostate specific Ag [Mass/volume] in Serum or Plasma PROSTATE-SPECIFIC ANTIGEN DIAGNOSTIC Lab Routine Malignant neoplasm of prostate (HCC) Expected: 11/20/2024, Expires: 02/19/2025 [facility] Work Phone: Comment on above: Expected: 11/20/2024 , Expires: 02/19/2025 Start: 11-19-2024 End: 11-19-2024 Patient encounter procedure 11/19/2024 11:15 AM EST Office Visit Radiation Oncology [address] [place] [address] Aaliyah Hernandez MD [address] [place] [address] 5 Month Follow Up Radiation Oncology Comment on above: 5 Month Follow Up Start: 11-11-2024 End: 11-11-2024 Patient encounter procedure 11/11/2024 11:00 AM EST Office Visit [facility] [address] [place] [address] lab [facility] Comment on above: lab Start: 06-15-2024 Influenza vaccination Influenza Vacc ine (#1) [facility] Start: 05-20-2024 End: 08-19-2024 Prostate specific Ag [Mass/volume] in Serum or Plasma PSA/PROSTSPECAG DIAG Lab Routine Malignant neoplasm of prostate (HCC) Expected: 05/20/2024, Expires: 08/19/2024 [facility] Work Phone: Comment on above: Expected: 05/20/2024 , Expires: 08/19/2024 Start: 05-20-2024 End: 05-20-2024 Patient encounter procedure 05/20/2024 1:15 PM EDT Office Visit Radiation Oncology [address] [place] [address] Aaliyah Hernandez MD [address] [place] [address] 5 Month Follow Up Radiation Oncology Comment on above: 5 Month Follow Up Start: 05-13-2024 End: 05-13-2024 Patient encounter procedure 05/13/2024 1:00 PM EDT Office Visit [facility] [address] [place] [address] [place] [address] lab followup [facility] Comment on above: lab followup Start: 11-15-2023 End: 01-15-2024 Prostate specific Ag [Mass/volume] in Serum or Plasma PSA/PROSTSPECAG DIAG Lab Routine Malignant neoplasm of prostate (HCC) Expected: 11/15/2023, Expires: 01/15/2024 [facility] Work Phone: Comment on above: Expected: 11/15/2023 , Expires: 01/15/2024 Start: 10-15-2023 Advance Directive Discussion Advance Directive Discussion [facility] Start: 10-15-2023 Behavioral Health Screening Behavioral Health Screening [facility] Start: 10-15-2023 Depression Assessment Depression Ass essment [facility] Start: 06-15-2023 Covid-19 Vaccine ( season) Covid-19 Vaccine ( season) [facility] Start: 06-15-2023 Covid-19 Vaccine ( season) Covid-19 Vaccine ( season) [facility] Start: 06-15-2023 Influenza vaccination C [facility] Start: 05-11-2023 End: 07-11-2023 Prostate specific Ag [Mass/volume] in Serum or Plasma PSA/PROSTSPECAG DIAG Lab Routine Malignant neoplasm of prostate (HCC) Expected: 05/11/2023, Expires: 07/11/2023 [facility] Work Phone: Comment on above: Expected: 05/11/2023 , Expires: 07/11/2023 Start: 03-30-2023 Adult depression screening assessment DEPRESSION SCREENING [facility] Start: 02-14-2023 End: 04-16-2023 Basic metabolic 2000 panel - Serum or Plasma [facility] Work Phone: Comment on above: Expected: 02/14/2023 , Expires: 04/16/2023 Start: 01-10-2023 End: 03-12-2023 Prostate specific Ag [Mass/volume] in Serum or Plasma PSA/PROSTSPECAG DIAG Lab Routine Prostate cancer (HCC) Expected: 01/10/2023, Expires: 03/12/2023 [facility] Work Phone: Comment on above: Expected: 01/10/2023 , Expires: 03/12/2023 Start: 11-12-2022 End: 01-12-2023 Prostate specific Ag [Mass/volume] in Serum or Plasma PSA/PROSTSPECAG DIAG Lab Routine Prostate cancer ([facility]) Expected: 11/12/2022, Expires: 01/12/2023 [facility] Work Phone: Comment on above: Expected: 11/12/2022 , Expires: 01/12/2023 Start: 10-15-2022 ADVANCE DIRECTIVE DISCUSSION ADVANCE DIRECTIVE DISCUSSION [facility] Start: 10-15-2022 DEPRESSION ASSESSMENT DEPRESSION ASS ESSMENT [facility] Start: 06-30-2022 End: 08-30-2022 Prostate specific Ag [Mass/volume] in Serum or Plasma PSA/PROSTSPECAG DIAG Lab Routine Prostate cancer ([facility]) Expected: 06/30/2022 (Approximate), Expires: 08/30/2022 [facility] Work Phone: Comment on above: Expected: 06/30/2022 (Approximate), Expires: 08/30/2022 Start: 06-15-2022 Influenza vaccination [facility] Start: 10-15-2021 ADVANCE DIRECTIVE DISCUSSION ADVANCE DIRECTIVE DISCUSSION [facility] Start: 10-15-2021 DEPRESSION ASSESSMENT DEPRESSION ASS ESSMENT [facility] Start: 08-29-2021 COVID-19 VACCINE (4 - Booster for Pfizer series) COVID-19 VACCINE (4 - Booster for Pfizer series) [facility] Start: 08-29-2021 COVID-19 VACCINE (4 - Pfizer series) COVID-19 VACCINE (4 - Pfizer series) [facility] Start: 05-23-2018 Pneumococcal Vaccine : 65+ (2 of 2 - PCV) Pneumococcal Vaccine: 65+ (2 of 2 - PCV) [facility] Start: 07-24-2014 Urine microalbumin profile DTaP,Tdap,Td Vaccine (1 - Tdap) [facility] Start: 2012 PNEUMOCOCCAL: 65+ (1 - PCV) PNEUMOCOCCAL: 65+ (1 - PCV) [facility] Start: 2007 RSV Vaccine (1 - 1-d ose 60+ series) RSV Vaccine (1 - 1-dose 60+ series) [facility] Start: 1997 SHINGRIX VACCINE (1 of 2) SHINGRIX VACCINE (1 of 2) [facility] Start: 1992 COLOGUARD (FIT-DNA) COLOGUARD (FIT-D NA) [facility] Start: 1992 Colonoscopy COLONOSCOPY [facility] Start: 1992 COLORECTAL CANCER SCREENING COLORECTAL CANCER SCREENING [facility] Start: [address] COLONOGRAPHY [facility] Start: 1992 FECAL OCCULT BLOOD FECAL OCCULT BLOO D [facility] Start: 1992 SIGMOIDOSCOPY SIGMOIDOSCOPY [facility] Start: 1982 LIPID SCREEN LIPID SCREEN [facility] Start: 1966 SHINGRIX VACCINE (1 of 2) SHINGRIX VACCINE (1 of 2) [facility] Start: 1966 Urine microalbumin profile [facility] Start: 1965 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 Start: 1953 PNEUMOCOCCAL: 65+ (1 - PCV) PNEUMOCOCCAL: 65+ (1 - PCV) [facility] Start: 1952 COVID-19 VACCINE (#1) COVID-19 VACCI NE (#1) [facility] Start: 1947 COVID-19 VACCINE (#1) COVID-19 VACCI NE (#1) [facility] CT Abdomen and Pelvi s WO contrast CT ABD/PEL WO IVCON Radiology Routine Ventral incisional hernia 04/01/2024 1:54 PM EDT [facility] Work Phone: End: 12-09-2023 Mri pelvis w/o & w/contrast material MRI PELVIS WO/W IVCON Radiology Routine Prostate cancer (HCC) Abdominal mass, left lower quadrant 1 Occurrences starting 11/09/2022 until 12/09/2023 [facility] Work Phone: Comment on above: 1 Occurrences starti ng 11/09/2022 until 12/09/2023 End: 12-04-2022 Mri pelvis w/o & w/contrast material [facility] Work Phone: Comment on above: 1 Occurrences starti ng 12/04/2022 until 12/04/2022 [facility] Immunizations Immunization Date Immunization Notes Care Provider Fa cility 04-02-2024 COVID-19 Comirnaty (Pfizer) Tri-Sucrose 12+ [facility] 04-02-2024 Pneumococcal Conjuga te Vaccine, 20 valent [facility] 07-25-2023 zoster vaccine recombinant Radha Fish [facility] 07-13-2023 influenza virus vaccine, unspecified formulation [facility] 07-13-2023 influenza, high dose seasonal, preservative-free Bro Chavez Other [employer] Other 05-07-2023 zoster vaccine recombinant Bro Chavez Other [facility] 10-18-2022 SARS-CoV-2 (COVID-19 ) [id number] Radha Whitten [facility] 07-05-2022 influenza virus vaccine, split virus (incl. purified surface antigen) Bro Chavez Other [employer] [facility] [employer] Other 07-05-2022 influenza virus vaccine, unspecified formulation Radha Lue [facility] 01-30-2022 SARS-CoV-2 mRNA (npdsdfkbtky-fvar-gvvzo se) vaccine Radha Lue [facility] 07-04-2021 influenza virus vaccine, split virus (incl. purified surface antigen) Bro Chavez Other [employer] Other 07-04-2021 influenza virus vaccine, unspecified formulation [facility] 07-04-2021 SARS-CoV-2 (COVID-19 ) mRNA BNT-162b2 vax Radha Lue [facility] Comment on above: Result Comment: 2022: [id number] 06-15-2021 SARS-CoV-2 (COVID-19 ) Ad26 vaccine, recombinant Sushant Freedman Jr. [facility] 12-13-2020 SARS-CoV-2 (COVID-19 ) Ad26 vaccine, recombinant Sushant Freedman Jr. [facility] 12-07-2020 SARS-CoV-2 (COVID-19 ) mRNA BNT-162b2 vax Radha Lue [facility] Comment on above: Result Comment: 2022: [id number] 11-16-2020 SARS-CoV-2 (COVID-19 ) mRNA BNT-162b2 vax Radha Lue [facility] Comment on above: Result Comment: 2022: [id number] 11-15-2020 SARS-CoV-2 (COVID-19 ) Ad26 vaccine, recombinant Sushant Freedman JrBrian [facility] 07-05-2020 influenza virus vaccine, split virus (incl. purified surface antigen) Bro Chavez Other [employer] Other 07-05-2020 influenza virus vaccine, unspecified formulation [facility] 07-29-2019 influenza virus vaccine, split virus (incl. purified surface antigen) Bro Chavez Other [employer] Other 07-29-2019 influenza virus vaccine, unspecified formulation [facility] 07-30-2018 influenza virus vaccine, split virus (incl. purified surface antigen) Bro Chavez Other [employer] Other 07-30-2018 influenza virus vaccine, unspecified formulation Radha Lue [facility] 07-25-2017 influenza virus vaccine, split virus (incl. purified surface antigen) Bro Chavez Other [employer] Other 07-25-2017 influenza virus vaccine, unspecified formulation Radha Lue [facility] 05-23-2017 pneumococcal polysaccharide vaccine, 23 valent Radha Lue [facility] 09-04-2016 influenza virus vaccine, split virus (incl. purified surface antigen) Bro Chavez Other [employer] Other 09-04-2016 influenza virus vaccine, unspecified formulation [facility] 09-04-2016 pneumococcal conjuga te vaccine, 13 valent Bro Chavez Other [facility] 08-12-2015 influenza virus vaccine, split virus (incl. purified surface antigen) Bro Chavez Other [facility] [employer] Other 08-12-2015 influenza virus vaccine, unspecified formulation Radha Whitten [facility] 02-12-2015 pneumococcal polysaccharide vaccine, 23 valent Bro Chavez Other [facility] 07-23-2014 tetanus and diphther ia toxoids, adsorbed, preservative free, for adult use (5 Lf of tetanus toxoid and 2 Lf of diphtheria toxoid) Bro Chavez Other [facility] 09-01-2013 tetanus and diphther ia toxoids, adsorbed, preservative free, for adult use (5 Lf of tetanus toxoid and 2 Lf of diphtheria toxoid) Bro Chavez Other [facility] Payers Date Payer Category Payer Unknown MMO MMO MEDICARE SUPPLEMENT [id number] 2019-Present [phone] [address] [place] [address] Indemnity [id number] 2019 Unknown MMO MMO MEDICARE SUPPLEMENT [id number] 2019-Present [phone] [address] [place] [address] Indemnity [id number] 2012 Medicare MEDICARE MEDICAR E A AND B [id number] 2012-Present [phone] [address] [address] [place] [address] Medicare [id number] 2012 Medicare MEDICARE MEDICAR E A AND B [id number] 2012-Present [phone] [place] [address] Medicare [id number] 1959 Medicare [id number] 1959 Self-pay [id number] 1959 Unknown [id number] 1947 Unknown [id number] 1947 Unknown [id number] 1947 Unknown [id number] 1947 Unknown [id number] 1947 Unknown [id number] 1947 Unknown [id number] 1947 Unknown [id number] 1947 Unknown [id number] 1947 Unknown [id number] 1947 Unknown [id number] 1947 Unknown [id number] Social History Date Type Detail Facility Start: 03-28-2022 End: 11-28-2023 Tobacco smoking status Never smoked tobacco (finding) [facility] Start: 02-14-2023 End: 05-15-2023 Sex Assigned At Male [facility] Start: 05-10-2021 End: 12-26-2022 Tobacco use and exposure Smokeless tobacco non-user [facility] Start: 03-30-2022 End: 05-20-2024 Alcohol intake Ex-drinker (finding) [facility] Start: 1945 Sex Assigned At Not on file [facility] Start: 03-20-2022 End: 07-13-2022 Exposure to SARS-CoV-2 (event) Not sure [facility] Tobacco smoking status Never [facility] Start: 02-14-2023 End: 05-15-2023 History of Social function [facility] Start: 1945 Sex Assigned At Male F [facility] Medical Equipment Procedure Code Equipment Code Equipment Origin al Text Equipment Identifier Dates Mesh Prolene Squ are Flat [id number] Surgical Knit Nonabsorbable Nonreactive - [id number] Start: 02-23-2023 Functional Status Date Assessment Result Facility 06-04-2024 Functional Status N/A [facility] 11-28-2023 Functional Status N/A [facility] 08-15-2023 Functional Status N/A [facility] 01-24-2023 Functional Status N/A [facility] 01-11-2023 Functional Status N/A [facility] 12-28-2022 Functional Status N/A [facility] 12-14-2022 Functional Status N/A [facility] 11-30-2022 Functional Status N/A [facility] 11-23-2022 Functional Status N/A [facility] 11-08-2022 Functional Status N/A [facility] 10-04-2022 Functional Status N/A [facility] 03-28-2022 Functional Status N/A [facility] Clinical Notes 03-28-2022 to 06-04-2024 Aaliyah Hernandez MD - 05/20/2024 1:15 PM EDTPDavid winchester RT(R) - 04/01/2024 11:36 AM Krisyt Fabian, OCCA - 04/01/2024 10:03 AM Kristy Fabian, OCCA - 04/01/2024 10:03 AM EDT Note Date & Type Note Facility 06-04-2024 Hospital Discharg e instructions Patient Education 06/04/2024 09:16:57 Artificial Urinary Sphincter Placement Artificial Urinary Sphincter Placement An artificial urinary sphincter (AUS) is a device that is used to treat urinary incontinence. The device helps you control your urine and prevents urine leaks. An AUS is made up of three parts: A fluid-filled cuff. A fluid-filled balloon. A pump. During the procedure to place an AUS, the cuff is placed around the part of the body that drains urine from the bladder (urethra), the balloon is placed in the abdomen, and the pump is placed in the scrotum (for males) or outside of the vagina (for females). Tell a health care provider about: Any allergies you have. All medicines you are taking, including vitamins, herbs, eye drops, creams, and fgld-rqk-mwxriyf medicines. Any problems you or family members have had with anesthetic medicines. Any blood disorders you have. Any surgeries you have had. Any medical conditions you have. Whether you are or may be . What are the risks? Generally, this is a safe procedure. However, problems may occur, including: Infection. Bleeding. Allergic reactions to medicines or dyes. Damage to nearby structures or organs. Damage to the area where the balloon is placed (erosion). Failure of the artificial sphincter to work. Need for additional surgeries. Inability to drain the bladder (urinary retention). What happens before the procedure? Eating and drinking restrictions Follow instructions from your health care provider about eating and drinking, which may include: 8 hours before the procedure stop eating heavy meals or foods, such as meat, fried foods, or fatty foods. 6 hours before the procedure stop eating light meals or foods, such as toast or cereal. 6 hours before the procedure stop drinking milk or drinks that contain milk. 2 hours before the procedure stop drinking clear liquids. Medicines Ask your health care provider about: Changing or stopping your regular medicines. This is especially important if you are taking diabetes medicines or blood thinners. Taking medicines such as aspirin and ibuprofen. These medicines can thin your blood. Do not take these medicines unless your health care provider tells you to take them. Taking wtet-abt-vwolpll medicines, vitamins, herbs, and supplements. Surgery safety Ask your health care provider: How your surgery site will be marked. What steps will be taken to help prevent infection. These steps may include: ?Removing hair at the surgery site. ?Washing skin with a germ-killing soap. ?Taking antibiotic medicine. General instructions If you were asked to do a bowel prep before the procedure, follow instructions from your health care provider. Keep all visits with your health care provider. You may have tests done, including urine tests and imaging tests. Plan to have a responsible adult take you home from the hospital or clinic. Plan to have a responsible adult care for you for the time you are told after you leave the hospital or clinic. This is important. What happens during the procedure? An IV will be inserted into one of your veins. You will be given one or more of the following: ?A medicine to help you relax (sedative). ?A medicine to make you fall asleep (general anesthetic). A small, thin tube (catheter) will be placed into your urethra. The tube will help to drain urine during and after the procedure. An incision will be made: ?In your scrotum if you are a male. ?In the area between your vagina and anus (perineum) if you are a female. The cuff will be placed around your urethra. An incision will be made in your abdomen. The balloon will be placed in your abdomen and filled with saline. The pump will be put in place. ?If you are a male, the pump will be placed inside your scrotum. ?If you are a female, the pump will be placed between the folds of skin around the opening of your vagina (labia). The cuff, balloon, and pump will be connected with tubes. The AUS will be tested to make sure it works properly. The incisions will be closed with stitches (sutures). A bandage (dressing) will be placed over the incisions. The procedure may vary among health care providers and hospitals. What happens after the procedure? Your blood pressure, heart rate, breathing rate, and blood oxygen level will be monitored until you leave the hospital or clinic. A catheter will be left in your urethra to help drain your bladder during recovery. The catheter may be removed before you leave the hospital. If you have problems draining urine after the procedure, it may be left in until you can drain urine on your own. You will be given medicine to help with pain as needed. You will not use your AUS right away. It will be activated 4 6 weeks after the procedure. If you were given a sedative during the procedure, it can affect you for several hours. Do not drive or operate machinery until your health care provider says that it is safe. Summary An artificial urinary sphincter (AUS) is a device that is used to treat urinary incontinence. An AUS helps to control urine flow and prevent leaking. The AUS is made up of three parts. They are a fluid-filled cuff, a fluid-filled balloon, and a pump that activates the AUS. You will not use your AUS right away. It will be activated 4 6 weeks after the procedure. This information is not intended to replace advice given to you by your health care provider. Make sure you discuss any questions you have with your health care provider. Document Revised: 05/06/2021 Document Reviewed: 05/06/2021 [employer] Patient Education 2022 Heidi Shaulis. Follow Up Care 11/28/2023 11:10:53 With:Fish WHARTON, ALANNA Hahn, URO Address: When: Unknown [facility] 06-04-2024 Note Patient Education Urology Artificial Urinary Sphincter Placement An artificial urinary sphincter (AUS) is a device that is used to treat urinary incontinence. The device helps you control your urine and prevents urine leaks. An AUS is made up of three parts: ? A fluid-filled cuff. ? A fluid-filled balloon. ? A pump. During the procedure to place an AUS, the cuff is placed around the part of the body that drains urine from the bladder (urethra), the balloon is placed in the abdomen, and the pump is placed in the scrotum (for males) or outside of the vagina (for females). Tell a health care provider about: ? Any allergies you have. ? All medicines you are taking, including vitamins, herbs, eye drops, creams, and pnde-xkc-vywygcm medicines. ? Any problems you or family members have had with anesthetic medicines. ? Any blood disorders you have. ? Any surgeries you have had. ? Any medical conditions you have. ? Whether you are or may be . What are the risks? Generally, this is a safe procedure. However, problems may occur, including: ? Infection. ? Bleeding. ? Allergic reactions to medicines or dyes. ? Damage to nearby structures or organs. ? Damage to the area where the balloon is placed (erosion). ? Failure of the artificial sphincter to work. ? Need for additional surgeries. ? Inability to drain the bladder (urinary retention). What happens before the procedure? Eating and drinking restrictions Follow instructions from your health care provider about eating and drinking, which may include: ? 8 hours before the procedure ? stop eating heavy meals or foods, such as meat, fried foods, or fatty foods. ? 6 hours before the procedure ? stop eating light meals or foods, such as toast or cereal. ? 6 hours before the procedure ? stop drinking milk or drinks that contain milk. ? 2 hours before the procedure ? stop drinking clear liquids. Medicines Ask your health care provider about: ? Changing or stopping your regular medicines. This is especially important if you are taking diabetes medicines or blood thinners. ? Taking medicines such as aspirin and ibuprofen. These medicines can thin your blood. Do not take these medicines unless your health care provider tells you to take them. ? Taking bioq-umj-oybvejk medicines, vitamins, herbs, and supplements. Surgery safety Ask your health care provider: ? How your surgery site will be marked. ? What steps will be taken to help prevent infection. These steps may include: ? Removing hair at the surgery site. ? Washing skin with a germ-killing soap. ? Taking antibiotic medicine. General instructions ? If you were asked to do a bowel prep before the procedure, follow instructions from your health care provider. ? Keep all visits with your health care provider. You may have tests done, including urine tests and imaging tests. ? Plan to have a responsible adult take you home from the hospital or clinic. ? Plan to have a responsible adult care for you for the time you are told after you leave the hospital or clinic. This is important. What happens during the procedure? ? An IV will be inserted into one of your veins. ? You will be given one or more of the following: ? A medicine to help you relax (sedative). ? A medicine to make you fall asleep (general anesthetic). ? A small, thin tube (catheter) will be placed into your urethra. The tube will help to drain urine during and after the procedure. ? An incision will be made: ? In your scrotum if you are a male. ? In the area between your vagina and anus (perineum) if you are a female. ? The cuff will be placed around your urethra. ? An incision will be made in your abdomen. ? The balloon will be placed in your abdomen and filled with saline. ? The pump will be put in place. ? If you are a male, the pump will be placed inside your scrotum. ? If you are a female, the pump will be placed between the folds of skin around the opening of your vagina (labia). ? The cuff, balloon, and pump will be connected with tubes. ? The AUS will be tested to make sure it works properly. ? The incisions will be closed with stitches (sutures). ? A bandage (dressing) will be placed over the incisions. The procedure may vary among health care providers and hospitals. What happens after the procedure? ? Your blood pressure, heart rate, breathing rate, and blood oxygen level will be monitored until you leave the hospital or clinic. ? A catheter will be left in your urethra to help drain your bladder during recovery. The catheter may be removed before you leave the hospital. If you have problems draining urine after the procedure, it may be left in until you can drain urine on your own. ? You will be given medicine to help with pain as needed. ? You will not use your AUS right away. It will be activated 4?6 weeks after the (more content not included)... 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 INTERVAL HISTORY: Patient states he is doing fairly well. No significant new problems or concerns. He does have continued incontinence wearing pad x 2 daily stable. No hematuria. 05/15/23:He did undergo abdominal surgery in February with removal of previous implanted mesh and exploratory laparotomy and implantation of mesh for repair of femoral hernia with 2 contrast large femoral hernia with defect and containing large bowel. No evidence of malignancy and resected tissue. He has done very well subsequently. Denies of any problems. 12/12/22:Patient here for further follow-up regarding palpable lump left scrotal area. Patient had seen Dr. Whitten. Seeing patient shortly after this for routine follow-up recommended further imaging with MRI as patient was unclear what he wanted to do. Denies any new problems. MRI Pelvis 12/04/22: 1. No enhancing scrotal lesions. 2. 3.2 x 1.8 x 3.5 cm fatty lesion seen in the left scrotal sac laterally. Could reflect area of fat necrosis or spermatic cord lipoma. Could correlate with lesion seen on prior ultrasound. Recommend continued ultrasound follow-up to document stability. 3. Large inguinal hernias bilaterally, left greater than right with fat extending into the scrotum. Left hernia contains a loop of colon He underwent ultrasound 08/05/2022 with small left hydrocele no other significant finding. He underwent repeat ultrasound on 10/11/2022 with the finding of a solid vascular appearing mass in the left hemiscrotum measuring 2.6 x 2.9 x 1.6 cm. This is noted to be separate from the testicle. Small varicocele no hydrocele on the left. Further work-up including CT chest abdomen and pelvis on 11/06/2022 demonstrating: No suspicious chest findings. Nonobstructing left nephrolithiasis. Large left inguinal hernia with fat extending into the scrotum and along with the sigmoid colon extending to near the level of the scrotum, 3 cm area of density within the inguinal hernia suspicious for acute diverticulitis. This could also represent scarring from prior hernia repair. Large fat filled right inguinal hernia without strangulation or bowel involvement. No suspicious bony changes. Patient has seen Dr. Whitten the other day and underwent laboratory evaluation without remarkable findings. He is here today for routine follow-up. 07/13/22: Doing well. Is more active. Walking 1 to 2 miles daily starting to lose weight as a result. Feeling better. 03/30/22:Overall doing well. Still having urinary incontinence though mostly with increased activity. Having some intermittent diarrhea but mostly increased frequency and looser stools without blood or other issues. 12/21/21:Doing well. Overall urinary function has improved. Less incontinence. Incontinence he is having is mostly stress related. Recent colonoscopy without significant findings. 08/10/21:Doing well. Significant improvement in bladder and bowel frequency. Still with moderate fatigue. PSA HISTORY: PSA (ng/mL) Date Value 05/13/2024 <0.02 11/13/2023 <0.02 05/08/2023 <0.02 11/02/2022 <0.02 09/15/2021 <0.1 08/03/2021 <0.03 Initial post prostatectomy PSA 0.23 on 07/17/2018. Patient's PSA continued to rise: 0.48 on 04/22/2019 0.87 on 09/29/2019 1.43 on 03/19/2020 1.62 on 07/19/2020 2.05 on 09/27/2020 ALLERGIES No Known Allergies GEMTESA 75 mg tablet lisinopril (ZESTRIL) 10 mg tablet q 24 HR. carvedilol (COREG) 12.5 mg tablet 6.25 mg twice daily with meals. aspirin, enteric coated (ASPIRIN, ENTERIC COATED) 81 mg EC tablet Take 81 mg by mouth once daily. ketoconazole (NIZORAL) 2 % cream Apply to affected area twice daily. (Patient taking differently: Apply to affected area two times a day. As needed) amLODIPine (NORVASC) 5 mg tablet Take by mouth two times a day. lisinopril-hydroCHLOROthiazide (PRINZIDE, ZESTORETIC) 20-25 mg per tablet Take 1 tablet by mouth once daily. atorvastatin (LIPITOR) 20 mg tablet Take 20 mg by mouth once daily. allopurinol (ZYLOPRIM) 300 mg tablet Take 300 mg by mouth once daily. REVIEW OF SYSTEMS: D/N = 4/1-2 Hematuria: none Dysuria: none Incontinence: 2 pads per day Urgency: mild Catheter use: none Medications to aid urination: no - Total AUA Score: na Bowel movement frequency: 1/day Bowel movement quality: variable: . Blood per rectum: none Androgen deprivation: Eligard 10/21/2020 x1 PHYSICAL EXAM: 05/20/24 1258 BP: 147/80 Pulse: (!) 59 Resp: 18 Temp: 36.9 C (98.4 F) SpO2: 96% Weight: 101 kg (222 lb 10.6 oz) KPS: 100 General appearance: Alert and oriented. 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 1 Prostate cancer. Doing well. PSA remains undetectable. No significant postradiation related issues. Recommend follow-up in 6 months with repeat PSA. Signed by: Aaliyah Hernandez MD cc: Bro Chavez (Aj) [address] [place] [id number] Whitten documented in this encounter [facility] 05-20-2024 Note HNO ID: [id number] Author: Aaliyah HERNANDEZ MD Service: ? 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 INTERVAL HISTORY: Patient states he is doing fairly well. No significant new problems or concerns. He does have continued incontinence wearing pad x 2 daily stable. No hematuria. 05/15/23:He did undergo abdominal surgery in February with removal of previous implanted mesh and exploratory laparotomy and implantation of mesh for repair of femoral hernia with 2 contrast large femoral hernia with defect and containing large bowel. No evidence of malignancy and resected tissue. He has done very well subsequently. Denies of any problems. 12/12/22:Patient here for further follow-up regarding palpable lump left scrotal area. Patient had seen Dr. Whitten. Seeing patient shortly after this for routine follow-up recommended further imaging with MRI as patient was unclear what he wanted to do. Denies any new problems. MRI Pelvis 12/04/22: 1. No enhancing scrotal lesions. 2. 3.2 x 1.8 x 3.5 cm fatty lesion seen in the left scrotal sac laterally. Could reflect area of fat necrosis or spermatic cord lipoma. Could correlate with lesion seen on prior ultrasound. Recommend continued ultrasound follow-up to document stability. 3. Large inguinal hernias bilaterally, left greater than right with fat extending into the scrotum. Left hernia contains a loop of colon He underwent ultrasound 08/05/2022 with small left hydrocele no other significant finding. He underwent repeat ultrasound on 10/11/2022 with the finding of a solid vascular appearing mass in the left hemiscrotum measuring 2.6 x 2.9 x 1.6 cm. This is noted to be separate from the testicle. Small varicocele no hydrocele on the left. Further work-up including CT chest abdomen and pelvis on 11/06/2022 demonstrating: No suspicious chest findings. Nonobstructing left nephrolithiasis. Large left inguinal hernia with fat extending into the scrotum and along with the sigmoid colon extending to near the level of the scrotum, 3 cm area of density within the inguinal hernia suspicious for acute diverticulitis. This could also represent scarring from prior hernia repair. Large fat filled right inguinal hernia without strangulation or bowel involvement. No suspicious bony changes. Patient has seen Dr. Whitten the other day and underwent laboratory evaluation without remarkable findings. He is here today for routine follow-up. 07/13/22: Doing well. Is more active. Walking 1 to 2 miles daily starting to lose weight as a result. Feeling better. 03/30/22:Overall doing well. Still having urinary incontinence though mostly with increased activity. Having some intermittent diarrhea but mostly increased frequency and looser stools without blood or other issues. 12/21/21:Doing well. Overall urinary function has improved. Less incontinence. Incontinence he is having is mostly stress related. Recent colonoscopy without significant findings. 08/10/21:Doing well. Significant improvement in bladder and bowel frequency. Still with moderate fatigue. PSA HISTORY: PSA (ng/mL) Date Value 05/13/2024 <0.02 11/13/2023 <0.02 05/08/2023 <0.02 11/02/2022 <0.02 09/15/2021 <0.1 08/03/2021 <0.03 Initial post prostatectomy PSA 0.23 on 07/17/2018. Patient's PSA continued to rise: 0.48 on 04/22/2019 0.87 on 09/29/2019 1.43 on 03/19/2020 1.62 on 07/19/2020 2.05 on 09/27/2020 ALLERGIES No Known Allergies GEMTESA 75 mg tablet lisinopril (ZESTRIL) 10 mg tablet q 24 HR. carvedilol (COREG) 12.5 mg tablet 6.25 mg twice daily with meals. aspirin, enteric coated (ASPIRIN, ENTERIC COATED) 81 mg EC tablet Take 81 mg by mouth once daily. ketoconazole (NIZORAL) 2 % cream Apply to affected area twice daily. (Patient taking differently: Apply to affected area two times a day. As needed) amLODIPine (NORVASC) 5 mg tablet Take by mouth two times a day. lisinopril-hydroCHLOROthiazide (PRINZIDE, ZESTORETIC) 20-25 mg per tablet Take 1 tablet by mouth once daily. atorvastatin (LIPITOR) 20 mg tablet Take 20 mg by mouth once daily. allopurinol (ZYLOPRIM) 300 mg tablet Take 300 mg by mouth once daily. REVIEW OF SYSTEMS: D/N = 4/1-2 Hematuria: none Dysuria: none (more content not included)... [facility] 04-01-2024 Note HNO ID: [id number] Author: DAVID PORTILLO RT(R) Service: ? Author Type: Technologist Type: Progress Notes Filed: 04/01/2024 11:38 Note Text: Radiology Service Progress Note PATIENT NAME: Yoni Ramirez DATE OF SERVICE: April 01, 2024 TIME: 11:36 AM PATIENT IDENTITY VERIFICATION COMPLETED USING TWO (2) IDENTIFIERS: Name and Date of confirmed by patient verbally. FALL SCREENING: Has the patient had 2 falls in the last year or 1 fall with injury or currently using an Ambulatory Assistive Device (Walker, Cane, Wheelchair, Crutches, etc.)? No PATIENT GENDER DATA: Male PATIENT RELEVANT IMPLANT DATA REVIEWED: Not Applicable PATIENT PRESENTS WITH AN IMPLANTABLE OR ATTACHED FOUNTAIN HELPER: No RADIOLOGY DEPARTMENT: CT; Exam(s) Completed: Abdomen/Pelvis PERIPHERAL IV DATA: Not applicable SIGNED BY: RT Haylee(R) April 01, 2024 11:36 AM [facility] 04-01-2024 History of Presen t illness Narrative Radiology Service Progress Note PATIENT NAME: Yoni Ramirez DATE OF SERVICE: April 01, 2024 TIME: 11:36 AM PATIENT IDENTITY VERIFICATION COMPLETED USING TWO (2) IDENTIFIERS: Name and Date of confirmed by patient verbally. FALL SCREENING: Has the patient had 2 falls in the last year or 1 fall with injury or currently using an Ambulatory Assistive Device (Walker, Cane, Wheelchair, Crutches, etc.)? No PATIENT GENDER DATA: Male PATIENT RELEVANT IMPLANT DATA REVIEWED: Not Applicable PATIENT PRESENTS WITH AN IMPLANTABLE OR ATTACHED FOUNTAIN HELPER: No RADIOLOGY DEPARTMENT: CT; Exam(s) Completed: Abdomen/Pelvis PERIPHERAL IV DATA: Not applicable SIGNED BY: RT Haylee(R) April 01, 2024 11:36 AM documented in this encounter [facility] 04-01-2024 Nurse Note What is the reason for your visit today? s/p open left anterior groin mesh removal (plug and patch) and abdominal wall reconstruction with bilateral transversus abdominus release and 30 x 30 cm retrorectus Prolene mesh on 02/23/23 for a large recurrent left inguinal hernia, reducible right inguinal hernia, and incarcerated epigastric hernia. Who is your referring physician? Are you having poor oral intake? NO Have you had unintentional weight loss of 15 lbs/7 Kg in the last 3-6 months? NO Bowels: regular Wound: Temperature: No Drains: No [facility] 04-01-2024 Nurse Note What is the reason for your visit today? s/p open left anterior groin mesh removal (plug and patch) and abdominal wall reconstruction with bilateral transversus abdominus release and 30 x 30 cm retrorectus Prolene mesh on 02/23/23 for a large recurrent left inguinal hernia, reducible right inguinal hernia, and incarcerated epigastric hernia. Who is your referring physician? Are you having poor oral intake? NO Have you had unintentional weight loss of 15 lbs/7 Kg in the last 3-6 months? NO Bowels: regular Wound: Temperature: No Drains: No documented in this encounter [facility] 04-01-2024 History of Presen t illness Narrative [facility] Abdominal Core Health - Follow Up Visit Assessment/Plan: Yoni Ramirez is a 78 year old male s/p open left anterior groin mesh removal (plug and patch) and abdominal wall reconstruction with bilateral transversus abdominus release and 30 x 30 cm retrorectus Prolene mesh on 02/23/23 for a large recurrent left inguinal hernia, reducible right inguinal hernia, and incarcerated epigastric hernia. He was seen postoperatively 03/20/2023 and was recovering well. His hospital course was complicated by significant postoperative delirium. He is here today for a one year follow up. He looks and feels well with no evidence of recurrence on exam. CT images reviewed - repair intact with no evidence of recurrence. - 1 year follow up (no need for CT unless there is clinical concern) Subjective: Feeling great. No pain or activity restrictions. No issues with bowel function. Continues to have difficulty with urinary incontinence - longstanding issue for him Still can't remember the first week after surgery. Objective: No bulge in either groin or along the midline. Midline incision well-healed. Some fungal irritation in lower abdominal skin fold, right worse than left. Donato Bishop MD 04/01/24, 10:35 AM General Surgery [facility] [facility] Decision Making: Problems: Low: Stable chronic illness Data: Unique test result(s) reviewed: 1 Independent interpretation of test from other physician/QHCP Risk: Low: Low risk from testing/treatment Medical Decision Making Level: 3 - Low documented in this encounter [facility] 04-01-2024 Note HNO ID: [id number] Author: DONATO BISHOP MD Service: ? Author Type: Physician Type: Progress Notes Filed: 04/07/2024 16:41 Note Text: [facility] Abdominal [facility] - Follow Up Visit Assessment/Plan: Yoni Ramirez is a 78 year old male s/p open left anterior groin mesh removal (plug and patch) and abdominal wall reconstruction with bilateral transversus abdominus release and 30 x 30 cm retrorectus Prolene mesh on 02/23/23 for a large recurrent left inguinal hernia, reducible right inguinal hernia, and incarcerated epigastric hernia. He was seen postoperatively 03/20/2023 and was recovering well. His hospital course was complicated by significant postoperative delirium. He is here today for a one year follow up. He looks and feels well with no evidence of recurrence on exam. CT images reviewed - repair intact with no evidence of recurrence. - 1 year follow up (no need for CT unless there is clinical concern) Subjective: Feeling great. No pain or activity restrictions. No issues with bowel function. Continues to have difficulty with urinary incontinence - longstanding issue for him Still can't remember the first week after surgery. Objective: No bulge in either groin or along the midline. Midline incision well-healed. Some fungal irritation in lower abdominal skin fold, right worse than left. Donato Bishop MD 04/01/24, 10:35 AM General Surgery [facility] Medical Decision Making: Problems: Low: Stable chronic illness Data: Unique test result(s) reviewed: 1 Independent interpretation of test from other physician/QHCP Risk: Low: Low risk from testing/treatment Medical Decision Making Level: 3 - Low [facility] 11-28-2023 Hospital Discharg e instructions Patient Education 11/28/2023 10:58:17 Kegel Exercises Kegel Exercises Kegel exercises can help strengthen your pelvic floor muscles. The pelvic floor is a group of muscles that support your rectum, small intestine, and bladder. In females, pelvic floor muscles also help support the uterus. These muscles help you control the flow of urine and stool (feces). Kegel exercises are painless and simple. They do not require any equipment. Your provider may suggest Kegel exercises to: Improve bladder and bowel control. Improve sexual response. Improve weak pelvic floor muscles after surgery to remove the uterus (hysterectomy) or after , in females. Improve weak pelvic floor muscles after prostate gland removal or surgery, in males. Kegel exercises involve squeezing your pelvic floor muscles. These are the same muscles you squeeze when you try to stop the flow of urine or keep from passing gas. The exercises can be done while sitting, standing, or lying down, but it is best to vary your position. Ask your health care provider which exercises are safe for you. Do exercises exactly as told by your health care provider and adjust them as directed. Do not begin these exercises until told by your health care provider. Exercises How to do Kegel exercises: 1.Squeeze your pelvic floor muscles tight. You should feel a tight lift in your rectal area. If you are a female, you should also feel a tightness in your vaginal area. Keep your stomach, buttocks, and legs relaxed. 2.Hold the muscles tight for up to 10 seconds. 3.Breathe normally. 4.Relax your muscles for up to 10 seconds. 5.Repeat as told by your health care provider. Repeat this exercise daily as told by your health care provider. Continue to do this exercise for at least 4 6 weeks, or for as long as told by your health care provider. You may be referred to a physical therapist who can help you learn more about how to do Kegel exercises. Depending on your condition, your health care provider may recommend: Varying how long you squeeze your muscles. Doing several sets of exercises every day. Doing exercises for several weeks. Making Kegel exercises a part of your regular exercise routine. This information is not intended to replace advice given to you by your health care provider. Make sure you discuss any questions you have with your health care provider. Document Revised: 02/09/2022 Document Reviewed: 02/09/2022 [employer] Patient Education 2022 Heidi Shaulis. Follow Up Care 08/15/2023 09:39:21 With:Fish WHARTON, ALANNA Hahn, URO Address: [address] [place] [address] [place] [address]- [phone] When: Unknown Comments:6 months [facility] 11-20-2023 Nurse Note Patient c/o continued urinary incontinence. Started Gemtesa approximately 3 months ago with little improvement. documented in this encounter [facility] 11-20-2023 Note HNO ID: [id number] Author: Aaliyah HERNANDEZ MD Service: ? 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 INTERVAL HISTORY: Patient states he is doing fairly well. Has had some issues with incontinence fairly chronic for him. 05/15/23:He did undergo abdominal surgery in February with removal of previous implanted mesh and exploratory laparotomy and implantation of mesh for repair of femoral hernia with 2 contrast large femoral hernia with defect and containing large bowel. No evidence of malignancy and resected tissue. He has done very well subsequently. Denies of any problems. 12/12/22:Patient here for further follow-up regarding palpable lump left scrotal area. Patient had seen Dr. Whitten. Seeing patient shortly after this for routine follow-up recommended further imaging with MRI as patient was unclear what he wanted to do. Denies any new problems. MRI Pelvis 12/04/22: 1. No enhancing scrotal lesions. 2. 3.2 x 1.8 x 3.5 cm fatty lesion seen in the left scrotal sac laterally. Could reflect area of fat necrosis or spermatic cord lipoma. Could correlate with lesion seen on prior ultrasound. Recommend continued ultrasound follow-up to document stability. 3. Large inguinal hernias bilaterally, left greater than right with fat extending into the scrotum. Left hernia contains a loop of colon He underwent ultrasound 08/05/2022 with small left hydrocele no other significant finding. He underwent repeat ultrasound on 10/11/2022 with the finding of a solid vascular appearing mass in the left hemiscrotum measuring 2.6 x 2.9 x 1.6 cm. This is noted to be separate from the testicle. Small varicocele no hydrocele on the left. Further work-up including CT chest abdomen and pelvis on 11/06/2022 demonstrating: No suspicious chest findings. Nonobstructing left nephrolithiasis. Large left inguinal hernia with fat extending into the scrotum and along with the sigmoid colon extending to near the level of the scrotum, 3 cm area of density within the inguinal hernia suspicious for acute diverticulitis. This could also represent scarring from prior hernia repair. Large fat filled right inguinal hernia without strangulation or bowel involvement. No suspicious bony changes. Patient has seen Dr. Whitten the other day and underwent laboratory evaluation without remarkable findings. He is here today for routine follow-up. 07/13/22: Doing well. Is more active. Walking 1 to 2 miles daily starting to lose weight as a result. Feeling better. 03/30/22:Overall doing well. Still having urinary incontinence though mostly with increased activity. Having some intermittent diarrhea but mostly increased frequency and looser stools without blood or other issues. 12/21/21:Doing well. Overall urinary function has improved. Less incontinence. Incontinence he is having is mostly stress related. Recent colonoscopy without significant findings. 08/10/21:Doing well. Significant improvement in bladder and bowel frequency. Still with moderate fatigue. PSA HISTORY: PSA (ng/mL) Date Value 11/13/2023 <0.02 05/08/2023 <0.02 11/02/2022 <0.02 07/06/2022 <0.02 09/15/2021 <0.1 08/03/2021 <0.03 Initial post prostatectomy PSA 0.23 on 07/17/2018. Patient's PSA continued to rise: 0.48 on 04/22/2019 0.87 on 09/29/2019 1.43 on 03/19/2020 1.62 on 07/19/2020 2.05 on 09/27/2020 ALLERGIES No Known Allergies GEMTESA 75 mg tablet acetaminophen (TYLENOL) 325 mg tablet Take 2 tablets by mouth every 6 hours as needed for pain. lisinopril (ZESTRIL) 10 mg tablet q 24 HR. carvedilol (COREG) 12.5 mg tablet 6.25 mg twice daily with meals. aspirin, enteric coated (ASPIRIN, ENTERIC COATED) 81 mg EC tablet Take 81 mg by mouth once daily. amLODIPine (NORVASC) 5 mg tablet Take by mouth two times a day. lisinopril-hydroCHLOROthiazide (PRINZIDE, ZESTORETIC) 20-25 mg per tablet Take 1 tablet by mouth once daily. atorvastatin (LIPITOR) 20 mg tablet Take 20 mg by mouth once daily. allopurinol (ZYLOPRIM) 300 mg tablet Take 300 mg by mouth once daily. ketoconazole (NIZORAL) 2 % cream Apply to affected area twice daily. (Patient taking differently: Apply to affected area two times a day. As needed) REVIEW OF SYSTEMS: D/N = (more content not included)... [facility] 11-20-2023 History of Presen t illness Narrative Radiation Oncology - Follow Up Note PATIENT NAME: Yoni Ramirez PATIENT DIAGNOSIS: Prostate adenocarcinoma, 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 INTERVAL HISTORY: Patient states he is doing fairly well. Has had some issues with incontinence fairly chronic for him. 05/15/23:He did undergo abdominal surgery in February with removal of previous implanted mesh and exploratory laparotomy and implantation of mesh for repair of femoral hernia with 2 contrast large femoral hernia with defect and containing large bowel. No evidence of malignancy and resected tissue. He has done very well subsequently. Denies of any problems. 12/12/22:Patient here for further follow-up regarding palpable lump left scrotal area. Patient had seen Dr. Whitten. Seeing patient shortly after this for routine follow-up recommended further imaging with MRI as patient was unclear what he wanted to do. Denies any new problems. MRI Pelvis 12/04/22: 1. No enhancing scrotal lesions. 2. 3.2 x 1.8 x 3.5 cm fatty lesion seen in the left scrotal sac laterally. Could reflect area of fat necrosis or spermatic cord lipoma. Could correlate with lesion seen on prior ultrasound. Recommend continued ultrasound follow-up to document stability. 3. Large inguinal hernias bilaterally, left greater than right with fat extending into the scrotum. Left hernia contains a loop of colon He underwent ultrasound 08/05/2022 with small left hydrocele no other significant finding. He underwent repeat ultrasound on 10/11/2022 with the finding of a solid vascular appearing mass in the left hemiscrotum measuring 2.6 x 2.9 x 1.6 cm. This is noted to be separate from the testicle. Small varicocele no hydrocele on the left. Further work-up including CT chest abdomen and pelvis on 11/06/2022 demonstrating: No suspicious chest findings. Nonobstructing left nephrolithiasis. Large left inguinal hernia with fat extending into the scrotum and along with the sigmoid colon extending to near the level of the scrotum, 3 cm area of density within the inguinal hernia suspicious for acute diverticulitis. This could also represent scarring from prior hernia repair. Large fat filled right inguinal hernia without strangulation or bowel involvement. No suspicious bony changes. Patient has seen Dr. Whitten the other day and underwent laboratory evaluation without remarkable findings. He is here today for routine follow-up. 07/13/22: Doing well. Is more active. Walking 1 to 2 miles daily starting to lose weight as a result. Feeling better. 03/30/22:Overall doing well. Still having urinary incontinence though mostly with increased activity. Having some intermittent diarrhea but mostly increased frequency and looser stools without blood or other issues. 12/21/21:Doing well. Overall urinary function has improved. Less incontinence. Incontinence he is having is mostly stress related. Recent colonoscopy without significant findings. 08/10/21:Doing well. Significant improvement in bladder and bowel frequency. Still with moderate fatigue. PSA HISTORY: PSA (ng/mL) Date Value 11/13/2023 <0.02 05/08/2023 <0.02 11/02/2022 <0.02 07/06/2022 <0.02 09/15/2021 <0.1 08/03/2021 <0.03 Initial post prostatectomy PSA 0.23 on 07/17/2018. Patient's PSA continued to rise: 0.48 on 04/22/2019 0.87 on 09/29/2019 1.43 on 03/19/2020 1.62 on 07/19/2020 2.05 on 09/27/2020 ALLERGIES No Known Allergies GEMTESA 75 mg tablet acetaminophen (TYLENOL) 325 mg tablet Take 2 tablets by mouth every 6 hours as needed for pain. lisinopril (ZESTRIL) 10 mg tablet q 24 HR. carvedilol (COREG) 12.5 mg tablet 6.25 mg twice daily with meals. aspirin, enteric coated (ASPIRIN, ENTERIC COATED) 81 mg EC tablet Take 81 mg by mouth once daily. amLODIPine (NORVASC) 5 mg tablet Take by mouth two times a day. lisinopril-hydroCHLOROthiazide (PRINZIDE, ZESTORETIC) 20-25 mg per tablet Take 1 tablet by mouth once daily. atorvastatin (LIPITOR) 20 mg tablet Take 20 mg by mouth once daily. allopurinol (ZYLOPRIM) 300 mg tablet Take 300 mg by mouth once daily. ketoconazole (NIZORAL) 2 % cream Apply to affected area twice daily. (Patient taking differently: Apply to affected area two times a day. As needed) REVIEW OF SYSTEMS: D/N = 4/1-2 Hematuria: none Dysuria: none Incontinence: 2 pads per day Urgency: mild Catheter use: none Medications to aid urination: no - Total AUA Score: na Bowel movement frequency: 1/day Bowel movement quality: variable: . Blood per rectum: none Androgen deprivation: [place] 10/21/2020 x1 PHYSICAL EXAM: 11/20/23 1316 BP: 145/76 Pulse: (!) 59 Resp: 16 Temp: 36.3 C (97.3 F) SpO2: 96% Weight: 103.9 kg (229 lb 0.9 oz) KPS: 100 General appearance: Alert and oriented. No acute distress Rectal exam def ASSESSMENT/PLAN: Prostate adenocarcinoma, initial PSA 7.4, biopsy Tesuque score 4 + 3 = 7 (grade group 3), clinical stage T2a, N0, M0, stage IIC [T1-T2, N0, M0, PSA <20, GG 3] (AJCC 8th ed.), s/p prostatectomy on 05/20/2018 pT3a pN0 with elevated and rising PSA, status post salvage prostate bed and pelvic radiation completed 07/14/2021. 1 Prostate cancer. Doing well. PSA remains undetectable. 2. Mass within left scrotum, related to defect and femoral hernia with large bowel herniation status post repair doing well. Signed by: Aaliyah Hernandez MD cc: Bro Chavez ([facility]) [address] [place] [address] Dr. Whitten documented in this encounter [facility] 10-11-2023 Evaluation note Encounter Date Diagnosis Assessment Notes Sep, Medicare annual wellness visit, subsequent (ICD-10 - Z00.00) Personalized health advice was given to the beneficiary including a written plan for screenings discussed and provided. Advanced care planning reviewed and/or information given as requested. Additional counseling was provided here today in regards to, [ ]. The above visit was performed by [ ], under direct supervision of [ ]. Document reviewed and amended by provider signed below. Sep, Hyperlipidemia type II (ICD-10 - E78.01) Instructed on diet and exercise with continued statin therapy.Discussed the beneficial effects of lowering cholesterol in reducing the risk for cerebrovascular and cardiovascular disease. Sep, Essential (primary) hypertension (ICD-10 - I10) This patient is instructed to consume a healthy, low-fat, low-salt diet. They are also encouraged to continue exercise to achieve/maintain a normal BMI. Patient is instructed on home BP measurements: - rest for 5 minutes w/o talking- positioned w/ feet on floor and arm supported- average best 2/3 readings w/ goal < 135/85 Sep, MCI (mild cognitive impairment) (ICD-10 - G31.84) Brain exercises daily. Reminders Monitor for now, no medication recommended Likely due to Lupron, age and concussion Sep, Obstructive sleep apnea (ICD-10 - G47.33) This patient is aware of the benefits associated with MIHIR: With continued use, the patient reduces the risk for CO, CVA, HTN, cardiac dysrhythmias and sudden cardiac deaths.The patient is also aware of the association between MIHIR and morning headaches, daytime somnolence, fatigue and obesity, which also has been improved with continued use.The patient is compliant with treatment, wearing the equipment every night for greater than 4 hours.The patient is instructed to continue use of the CPAP for MIHIR treatment. Sep, Adenocarcinoma of prostate (ICD-10 - C61) No s/s advancement. PSA suppressed Off LUpron, f/u Sep, Anemia, unspecified type (ICD-10 - D64.9) Fe, B12, FA normal Improved from previous results Blood loss from surgery? [email or web address] Other 12-19-2023 Evaluation note* Encounter Date Diagnosis Assessment Notes Treatment Notes Treatment Clinical Notes Sep, Anemia (ICD-10 - D64.9) [employer] Other 11-08-2023 Evaluation note* Encounter Date Diagnosis Assessment Notes Treatment Notes Treatment Clinical Notes Aug, COVID-19 (ICD-10 - U07.1) [email or web address] Other 11-07-2023 Evaluation note* Encounter Date Diagnosis Assessment Notes Treatment Notes Treatment Clinical Notes Aug, COVID-19 (ICD-10 - U07.1) Covid w/ increase risk of serious disease Vaccinated in July. Recommend Paxlovid due to underlying medical illnesses Aug, Obesity (BMI 30-39.9) (ICD-10 - E66.9) Increases risk for serious complcations Aug, Essential (primary) hypertension (ICD-10 - I10) This patient is instructed to consume a healthy, low-fat, low-salt diet. They are also encouraged to continue exercise to achieve/maintain a normal BMI. [employer] Other 11-01-2023 Hospital Discharge instructions Patient Education 08/15/2023 09:27:20 Kegel Exercises Kegel Exercises Kegel exercises can help strengthen your pelvic floor muscles. The pelvic floor is a group of muscles that support your rectum, small intestine, and bladder. In females, pelvic floor muscles also help support the uterus. These muscles help you control the flow of urine and stool (feces). Kegel exercises are painless and simple. They do not require any equipment. Your provider may suggest Kegel exercises to: Improve bladder and bowel control. Improve sexual response. Improve weak pelvic floor muscles after surgery to remove the uterus (hysterectomy) or after , in females. Improve weak pelvic floor muscles after prostate gland removal or surgery, in males. Kegel exercises involve squeezing your pelvic floor muscles. These are the same muscles you squeezewhen you try to stop the flow of urine or keep from passing gas. The exercises can be done while sitting, standing, or lying down, but it is best to vary your position. Ask your health care provider which exercises are safe for you. Do exercises exactly as told by your health care provider and adjust them as directed. Do not begin these exercises until told by your health care provider. Exercises How to do Kegel exercises: 1.Squeeze your pelvic floor muscles tight. You should feel a tight lift in your rectal area. If youare a female, you should also feel a tightness in your vaginal area. Keep your stomach, buttocks, and legs relaxed. 2.Hold the muscles tight for up to 10 seconds. 3.Breathe normally. 4.Relax your muscles for up to 10 seconds. 5.Repeat as told by your health care provider. Repeat this exercise daily as told by your health care provider. Continue to do this exercise for at least 4 6 weeks, or for as long as told by your health care provider. You may be referred to a physical therapist who can help you learn more about how to do Kegel exercises. Depending on your condition, your health care provider may recommend: Varying how long you squeeze your muscles. Doing several sets of exercises every day. Doing exercises for several weeks. Making Kegel exercises a part of your regular exercise routine. This information is not intended to replace advice given to you by your health care provider. Make sure you discuss any questions you have with your health care provider. Document Revised: 02/09/2022 Document Reviewed: 02/09/2022 [employer] Patient Education 2022 Heidi Shaulis. Follow Up Care 06/01/2023 13:07:42 With:Fish WHARTON, ALANNA Hahn, URO Address: When:Within 3 Month(s) [facility] 09-29-2023 Evaluation note* Encounter Date Diagnosis Assessment Notes Treatment Notes Treatment Clinical Notes Jun, Hyperlipidemia type II (ICD-10 - E78.01) Instructed on diet and exercise with continued statin therapy.Discussed the beneficial effects of lowering cholesterol in reducing the risk for cerebrovascular and cardiovascular disease. Jun, Essential (primary) hypertension (ICD-10 - I10) This patient is instructed to consume a healthy, low-fat, low-salt diet. They are also encouraged to continue exercise to achieve/maintain a normal BMI. Jun, MCI (mild cognitive impairment) (ICD-10 - G31.84) Stable Healthy diet, exercise and continue w/ brain exercises. Multifactorial Jun, Obstructive sleep apnea (ICD-10 - G47.33) This patient is aware of the benefits associated with MIHIR: With continued use, the patient reduces the risk for CO, CVA, HTN, cardiac dysrhythmias and sudden cardiac deaths.The patient is also aware of the association between MIHIR and morning headaches, daytime somnolence, fatigue and obesity, which also has been improved with continued use.The patient is compliant with treatment, wearing the equipment every night for greater than 4 hours.The patient is instructed to continue use of the CPAP for MIHIR treatment. Jun, Adenocarcinoma of prostate (ICD-10 - C61) Stable w/o s/s recurrence Jun, Edema of right lower extremity (ICD-10 - R60.0) Avoid salt and elevate lower extremities, support stockings, inspect legs and feet daily for blisters and ulcerations. Venous US to r/o DVT Jun, Epistaxis (ICD-10 - R04.0) Jun, Brachioradial pruritus (ICD-10 - L29.9) Jun, High risk medication use (ICD-10 - Z79.899) [email or web address] Other 08-01-2023 History of Present illness Narrative* Aaliyah Hernandez MD - 05/15/2023 1:32 PM EDT Radiation Oncology - Follow Up Note PATIENT NAME: Yoni Ramirez PATIENT DIAGNOSIS: Prostate adenocarcinoma, 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 INTERVAL HISTORY: Patient states he is doing well. Denies any bladder related issues. He did undergo abdominal surgery in February with removal of previous implanted mesh and exploratory laparotomy and implantation of mesh for repair of femoral hernia with 2 contrast large femoral hernia with defect and containing large bowel. No evidence of malignancy and resected tissue. He has done very well subsequently. Denies of any problems. 12/12/22:Patient here for further follow-up regarding palpable lump left scrotal area. Patient had seen Dr. Whitten. Seeing patient shortly after this for routine follow-up recommended further imaging with MRI as patient was unclear what he wanted to do. Denies any new problems. MRI Pelvis 12/04/22: 1. No enhancing scrotal lesions. 2. 3.2 x 1.8 x 3.5 cm fatty lesion seen in the left scrotal sac laterally. Could reflect area of fat necrosis or spermatic cord lipoma. Could correlate with lesion seen on prior ultrasound. Recommend continued ultrasound follow-up to document stability. 3. Large inguinal hernias bilaterally, left greater than right with fat extending into the scrotum. Left hernia contains a loop of colon He underwent ultrasound 08/05/2022 with small left hydrocele no other significant finding. He underwent repeat ultrasound on 10/11/2022 with the finding of a solid vascular appearing mass inthe left hemiscrotum measuring 2.6 x 2.9 x 1.6 cm. This is noted to be separate from the testicle. Small varicocele no hydrocele on the left. Further work-up including CT chest abdomen and pelvis on 11/06/2022 demonstrating: No suspicious chest findings. Nonobstructing left nephrolithiasis. Large left inguinal hernia with fat extending into the scrotum and along with the sigmoid colon extending to near the level of the scrotum, 3 cm area of density within the inguinal hernia suspicious for acute diverticulitis. This could also represent scarring from prior hernia repair. Large fat filled right inguinal hernia withoutstrangulation or bowel involvement. No suspicious bony changes. Patient has seen Dr. Whitten the other day and underwent laboratory evaluation without remarkable findings. He is here today for routine follow-up. 07/13/22: Doing well. Is more active. Walking 1 to 2 miles daily starting to lose weight as a result. Feeling better. 03/30/22:Overall doing well. Still having urinary incontinence though mostly with increased activity. Having some intermittent diarrhea but mostly increased frequency and looser stools without blood or other issues. 12/21/21:Doing well. Overall urinary function has improved. Less incontinence. Incontinence he is having is mostly stress related. Recent colonoscopy without significant findings. 08/10/21:Doing well. Significant improvement in bladder and bowel frequency. Still with moderate fatigue. PSA HISTORY: PSA (ng/mL) Date Value 05/08/2023 <0.02 11/02/2022 <0.02 07/06/2022 <0.02 03/23/2022 <0.02 09/15/2021 <0.1 08/03/2021 <0.03 Initial post prostatectomy PSA 0.23 on 07/17/2018. Patient's PSA continued to rise: 0.48 on 04/22/2019 0.87 on 09/29/2019 1.43 on 03/19/2020 1.62 on 07/19/2020 2.05 on 09/27/2020 ALLERGIES No Known Allergies lisinopril (ZESTRIL) 10 mg tablet q 24 HR. carvedilol (COREG) 12.5 mg tablet 6.25 mg twice daily with meals. aspirin, enteric coated (ASPIRIN, ENTERIC COATED) 81 mg EC tablet Take 81 mg by mouth once daily. amLODIPine (NORVASC) 5 mg tablet Take by mouth once daily. lisinopril-hydroCHLOROthiazide (PRINZIDE, ZESTORETIC) 20-25 mg per tablet Take 1 tablet by mouth once daily. atorvastatin (LIPITOR) 20 mg tablet Take 20 mg by mouth once daily. allopurinol (ZYLOPRIM) 300 mg tablet Take 300 mg by mouth once daily. cefdinir (OMNICEF) 300 mg capsule Take 1 capsule by mouth twice daily. acetaminophen (TYLENOL) 325 mg tablet Take 2 tablets by mouth every 6 hours as needed for pain. lactobacillus rhamnosus (CULTURELLE) 10 billion cell capsule Take 1 capsule by mouth once daily. melatonin 3 mg tablet Take 3 mg by mouth daily at bedtime. ketoconazole (NIZORAL) 2 % cream Apply to affected area twice daily. (Patient taking differently: Apply to affected area twice daily. As needed) REVIEW OF SYSTEMS: D/N = 4/1-2 Hematuria: none Dysuria: none Incontinence: 2 pads per day Urgency: mild Catheter use: none Medications to aid urination: no - Total AUA Score: na Bowel movement frequency: 1/day Bowel movement quality: variable: . Blood per rectum: none Androgen deprivation: [place] 10/21/2020 x1 PHYSICAL EXAM: 05/15/23 1324 BP: 153/77 Pulse: (!) 55 Resp: 16 Temp: 36.4 C (97.5 F) SpO2: 96% Weight: 103.4 kg (228 lb) KPS: 100 General appearance: Alert and oriented. No acute distress. Abdomen: No tenderness or masses notable, well-healed midline and left lower quadrant incision Rectal exam def : Descended testicles bilaterally. Mid lateral left testicle 2 cm firm mildly tender area. No overlying skin changes. Extremities: No deformities, edema, skin discoloration, clubbing or cyanosis. Lymph Nodes: No cervical lymphadenopathy, No supraclavicular lymphadenopathy, No axillary lymphadenopathy. No inguinal adenopathy Skin: Skin color, texture, turgor normal, no suspicious rashes or lesions. 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 1 Prostate cancer. Doing well. PSA remains undetectable. 2. Mass within left scrotum, related to defect and femoral hernia with large bowel herniation status post repair doing well. Has follow-up with surgery. Signed by: Aaliyah Hernandez MD cc: Bro Chavez ([facility]) [id number] Whitten [facility]* Encounter Date Diagnosis Assessment Notes Treatment Notes Treatment Clinical Notes Mar, Hyperlipidemia type II (ICD-10 - E78.01) Instructed on diet and exercise with continued statin therapy.Discussed the beneficial effects of lowering cholesterol in reducing the risk for cerebrovascular and cardiovascular disease. Mar, Essential (primary) hypertension (ICD-10 - I10) This patient is instructed to consume a healthy, low-fat, low-salt diet. They are also encouraged to continue exercise to achieve/maintain a normal BMI. Mar, MCI (mild cognitive impairment) (ICD-10 - G31.84) Likely sequela from concussion, prolonged anesthesia and degenerative brain syndrome. Family assisting w/ IADL He continues to be functional Able to care for self needs, continues to drive w/o hx of getting lost Stressed to continue brain exercises Mar, Obstructive sleep apnea (ICD-10 - G47.33) This patient is aware of the benefits associated with MIHIR: With continued use, the patient reduces the risk for CO, CVA, HTN, cardiac dysrhythmias and sudden cardiac deaths.The patient is also aware of the association between MIHIR and morning headaches, daytime somnolence, fatigue and obesity, which also has been improved with continued use.The patient is compliant with treatment, wearing the equipment every night for greater than 4 hours.The patient is instructed to continue use of the CPAP for MIHIR treatment. Mar, Acute pain of right knee (ICD-10 - M25.561) Ice, heat, Voltaren Gel. Quad exercises Avoid squatting or kneeling Mar, Primary osteoarthritis of right knee (ICD-10 - M17.11) Continue quad exercises and avoiding squatting or kneeling Mar, Adenocarcinoma of prostate (ICD-10 - C61) s/p prostatectomy and EBRT s/p ADT No ongoing treatment Serial PSA [employer] Other 06-01-2023 Evaluation note* Encounter Date Diagnosis Assessment Notes Treatment Notes Treatment Clinical Notes Mar, Essential (primary) hypertension (ICD-10 - I10) This patient is instructed to consume a healthy, low-fat, low-salt diet. They are also encouraged to continue exercise to achieve/maintain a normal BMI. Patient is instructed on home BP measurements: - rest for 5 minutes w/o talking- positioned w/ feet on floor and arm supported- average best 2/3 readings w/ goal < 135-85 Mar, Hyperlipidemia type II (ICD-10 - E78.01) Instructed on diet and exercise with continued statin therapy.Discussed the beneficial effects of lowering cholesterol in reducing the risk for cerebrovascular and cardiovascular disease. Mar, Obstructive sleep apnea (ICD-10 - G47.33) This patient is aware of the benefits associated with MIHIR: With continued use, the patient reduces the risk for CO, CVA, HTN, cardiac dysrhythmias and sudden cardiac deaths.The patient is also aware of the association between MIHIR and morning headaches, daytime somnolence, fatigue and obesity, which also has been improved with continued use.The patient is compliant with treatment, wearing the equipment every night for greater than 4 hours.The patient is instructed to continue use of the CPAP for MIHIR treatment. Mar, Postoperative delirium (ICD-10 - F05) Resolved w/o intervention. He recalls confusion and states it appeared very real to him. He is sleeping well w/ normal appetite. Mar, Other specified postprocedural states (ICD-10 - Z98.890) Mar, Personal history of other diseases of the digestive system (ICD-10 - Z87.19) s/p B/L inguinal hernia repair. Ventral hernia repair No complications noted. [employer] Other 05-16-2023 NoteHNO ID: [id number] Author: Michelle Bryant MD Service: General Surgery Author Type: Resident Type: Progress Notes Filed: 02/27/2023 10:01 AM Note Text: General Surgery Progress Note Service Date: 02/27/2023 Assessment and Plan: Yoni Ramirez is a 77 year old male with history of of arthritis, BPH, gout, HTN, hypercholesteremia, prostate cancer (surgery and radiation treatment), diverticulosis, urinary incontinence who was admitted on 02/23/2023 for left inguinal hernia repair, found to have large L femoral hernia s/p bilateral open TAR, Excision of previously implanted mesh, Implantation of 30 x [address] Donato Bishop MD 02/23. Hospital course has been uncomplicated at this point. Patient today feels weak and confused, and hallucinating. Denies nausea or vomiting, having bowel function Neuro: Pain control: Tylenol, Oxycodone and Dilaudid PRN, will speak with pain team, delirium precautions Cardiac: Vitals stable. Home meds: Coreg resumed Respiratory: Incentive spirometry. Minimize use of supplemental O2. GI: Diet: GI soft today. Antiemetic available. FEN: IV fluids: LR at 50cc cc/hr will decrease once tolerating diet. Electrolytes repleted PRN. Renal: Urine output adequate. Creatinine WNR. ID: Afebrile over last 24 hours. Heme: Hemoglobin Stable . No clinical evidence of bleeding. Wound: Clean, dry and intact MSK: PT/OT Lines/Drains: pIV, R and L FERNANDO Prophylaxis: IPCs, Lovenox 40 daily Dispo: PT, OT , RNF pending recovery Plan to be discussed with Staff Michelle Bryant MD For team paging 6AM-6PM during weekdays: [phone] for [facility] Team For team paging after 6PM or on weekend / holidays: [phone] for General Surgery Subjective: Acute events overnight: None. Pain: Tolerated, got a Tap block. Nausea: No. Vomiting: No. Flatus: No. Bowel movement: No. R FERNANDO 50 SS, L FERNANDO 20 SS Physical Exam: BP 152/71 Pulse 69 Temp 36.4 ?C (97.5 ?F) (Oral) Resp 18 SpO2 94% GENERAL: Not in distress SKIN: No jaundice LUNGS: nonlabored breathing CARDIAC: warm and well perfused throughout ABDOMEN: wound clean, dry and intact, drain Jps SS, soft, not distended, appropriately tender NEURO: grossly intact Labs: CBC, BMP, MG, PHOS Recent Labs 02/27/23 0544 02/26/23 0549 02/25/23 0822 02/24/23 0450 WBC 6.06 7.97 8.51 10.56 HB 11.7* 11.8* 12.2* 12.8* HCT 35.5* 34.6* 38.3* 38.3* PLT 157 131* 129* 146* NA 142 138 139 140 K 3.6* 3.2* 3.4* 3.8 CHLOR 106* 104 106* 105 CO2 26 25 24 27 BUN 8* 9 9 11 CREAT 0.55* 0.55* 0.57* 0.61* GLUC 101* 105* 163* 163* CA 8.6 8.5 8.6 8.6 MG 2.1 1.8 1.9 1.8 P 2.1* 1.4* 1.4* -- Liver Function, Amylase, AND Lipase Recent Labs 12/14/21 0957 TPROT 6.6 ALB 3.9 ALT 18 AST 21 ALKPHOS 135* TBILI 0.4 Coags No results for input(s): APTT, PT, INR in the last 51738 hours. Intake and Output: Date 02/26/23 07 - 02/27/23 0659 02/27/23 07 - 02/28/23 0659 Shift 7561-2513 6360-5608 0736-7788 24 Hour Total 3444-8480 0573-4130 8081-3298 24 Hour Total INTAKE PO 360 360 720 PO 360 360 720 IV 300 300 Volume (mL) (magnesium sulfate iv piggyback in sterile water 2 g 50 mL) 50 50 Volume (mL) (potassium phosphate 30 mmol in NaCl 0.9% 250 mL) 250 250 Shift Total 082 550 3817 OUTPUT Urine 1000 1900 2900 Urine Incontinence/Not Saved 3 x 3 x Urine Not Saved. 3 x 3 x Output ( External Collection Device 02/25/23 0000) 1000 1900 2900 Tubes 0 50 20 70 Drain/Tube Output (Drain/Tube 02/23/232119 Chip Spivey Right Upper Quadrant Abdomen Drain #1) 0 30 20 50 Drain/Tube Output (Drain/Tube 02/23/232121 Chip Spivey Left Upper Quadrant Abdomen) 0 20 20 # of BMs Stool Incontinence 2 x 2 x Number of BMs 1 x 2 x 3 x Shift Total 1000 1950 20 2970 Weight (kg) Current Medications: Current Facility-Administered Medications Medication Dose Route Frequency lactated ringers iv infusion 50 mL/hr INTRAVENOUS CONTINUOUS ondansetron (PF) 4 mg injection (ZOFRAN) 4 mg INTRAVENOUS q 6 H PRN carvedilol 6.25 mg tab(s) (COREG) 6.25 mg ORAL BID w MEALS atorvastatin 20 mg tab(s) (LIPITOR) 20 mg ORAL DAILY enoxaparin 40 mg injection (LOVENOX) 40 mg SUBCUTANEOUS q 24 HR ropivacaine nerve block 0.2% (2 mg/mL) - 200 mL PERIPHERAL NERVE CATHETER CONTINUOUS ropivacaine nerve block 0.2% (2 mg/mL) - 200 mL PERIPHERAL NERVE CATHETER CONTINUOUS NaCl 0.9% iv flush bag 20 mL INTRAVENOUS PRN NaCl 0.9% iv flush bag 20 mL INTRAVENOUS PRN allopurinol 300 mg tab(s) (ZYLOPRIM) 300 mg ORAL DAILY acetaminophen 650 mg tab(s) (TYLENOL) 650 mg ORAL q 6 H oxyCODONE IR 2.5-5 mg tab(s) (ROXICODONE) 2.5-5 mg ORAL q 4 H PRNFSancta Maria [id number] NoteHNO ID: [id number] Author: Perez Salvador MD Service: General Surgery Author Type: Resident Type: Plan of Care Filed: 02/27/2023 5:19 AM Note Text: GENERAL SURGERY PLAN OF CARE NOTE PATIENT NAME: Yoni Ramirez AGE: [age] year old : 1945 SEX: male Paged for chest pain, VSS. On bedside assessment, patient had upper abdomen incisional pain, otherwise abdomen soft and appropriately tender to palpation FERNANDO X2 SS. EKG reviewed with chief on-call -not concerning for acute features, set of troponin back wnl. Will update primary team. Perez Agrawal MD General Surgery, PGY-1 Personal Pager/Phone: [phone] Service Pager: [phone] (LAITH Lowery) For weekday evenings (6PM-6AM) or weekends/holidays, please page [phone] ([facility] Gen Surg weekends/nights)[facility] [id number] History of Past illness Narrative* Problem Noted Date Diagnosed Date Resolved Date Hypophosphataemia 02/26/2023 03/02/2023 Hypokalemia 02/26/2023 03/02/2023 Post-op pain 02/26/2023 03/02/2023 Inguinal hernia of left side without obstruction or gangrene 02/24/2023 03/02/2023 documented as of this encounter (statuses as of 05/18/2023) [facility]05[facility] History of Past illness Narrative* Problem Noted Date Diagnosed Date Resolved Date Hypophosphataemia 02/26/2023 03/02/2023 Hypokalemia 02/26/2023 03/02/2023 Post-op pain 02/26/2023 03/02/2023 Inguinal hernia of left side without obstruction or gangrene 02/24/2023 03/02/2023 documented as of this encounter (statuses as of 11/28/2023) [facility]05-[facility] NoteHNO ID: [id number] Author: Carolina Lorenz MD Service: General Surgery Author Type: Resident Type: Progress Notes Filed: 02/26/2023 11:02 AM Note Text: General Surgery Progress Note Service Date: 02/26/2023 Assessment and Plan: Yoni Ramirez is a 77 year old male with history of of arthritis, BPH, gout, HTN, hypercholesteremia, prostate cancer (surgery and radiation treatment), diverticulosis, urinary incontinence who was admitted on 02/23/2023 for left inguinal hernia repair, found to have large L femoral hernia s/p bilateral open TAR, Excision of previously implanted mesh, Implantation of 30 x [address] Donato Bishop MD 02/23. Hospital course has been uncomplicated at this point. Patient today feels weak and confused, reports not ambulating.. Denies nausea or vomiting, not passing gas and no BM yet Neuro: Pain control: Tylenol, Oxycodone and Dilaudid PRN Cardiac: Vitals stable. Home meds: Coreg resumed Respiratory: Incentive spirometry. Minimize use of supplemental O2. GI: Diet: Keep CLD. Antiemetic available. FEN: IV fluids: LR at 50cc cc/hr. Electrolytes repleted PRN. Renal: Urine output adequate. Creatinine WNR. ID: Afebrile over last 24 hours. Heme: Hemoglobin Stable . No clinical evidence of bleeding. Wound: Clean, dry and intact MSK: PT/OT Lines/Drains: pIV, R and L FERNANDO Prophylaxis: IPCs, Lovenox 40 daily Dispo: PT, OT , RNF pending recovery Plan to be discussed with Staff Carolina Lorenz MD For team paging 6AM-6PM during weekdays: [phone] for [facility] Team For team paging after 6PM or on weekend / holidays: [phone] for General Surgery Subjective: Acute events overnight: None. Pain: Tolerated, got a Tap block. Nausea: No. Vomiting: No. Flatus: No. Bowel movement: No. R FERNANDO 50 SS, L FERNANDO 65 SS Physical Exam: BP 155/66 Pulse 79 Temp 36.9 ?C (98.4 ?F) (Oral) Resp 16 SpO2 (!) 85% GENERAL: Not in distress SKIN: No jaundice LUNGS: nonlabored breathing CARDIAC: warm and well perfused throughout ABDOMEN: wound clean, dry and intact, drain Jps SS, soft, not distended, approprietly tender NEURO: grossly intact Labs: CBC, BMP, MG, PHOS Recent Labs 02/26/23 0549 02/25/23 0822 02/24/23 0450 02/14/23 1409 WBC 7.97 8.51 10.56 6.75 HB 11.8* 12.2* 12.8* 14.4 HCT 34.6* 38.3* 38.3* 44.7 PLT 131* 129* 146* 191 NA 138 139 140 141 K 3.2* 3.4* 3.8 4.2 CHLOR 104 106* 105 103 CO2 25 24 27 30 BUN 9 9 11 16 CREAT 0.55* 0.57* 0.61* 0.70* GLUC 105* 163* 163* 70* CA 8.5 8.6 8.6 9.7 MG 1.8 1.9 1.8 -- P 1.4* 1.4* -- -- Liver Function, Amylase, AND Lipase Recent Labs 12/14/21 0957 TPROT 6.6 ALB 3.9 ALT 18 AST 21 ALKPHOS 135* TBILI 0.4 Coags No results for input(s): APTT, PT, INR in the last 53815 hours. Intake and Output: Date 02/25/23699 - 02/26/2365802/26/23699 - 02/27/23 0659 Shift 1810-3779 3548-1620 9947-4009 24 Hour Total 0962-0569 9968-3994 2136-6751 24 Hour Total INTAKE PO 340 120 460 PO 340 120 460 IV 559 559 Volume (mL) (lactated ringers iv infusion) 559 559 Shift Total 340 291 109 1807 OUTPUT Urine 3335 268 6666 2750 Output ( External Collection Device 02/25/23 0000) 5909 452 2609 2750 Tubes 40 55 20 115 Drain/Tube Output (Drain/Tube 02/23/232119 Chip Spivey Right Upper Quadrant Abdomen Drain #1) 20 30 0 50 Drain/Tube Output (Drain/Tube 02/23/232121 Chip Spivey Left Upper Quadrant Abdomen) 20 25 20 65 # of BMs Number of BMs 0 x 0 x 0 x Shift Total 9510 788 6389 2865 Weight (kg) Current Medications: Current Facility-Administered Medications Medication Dose Route Frequency lactated ringers iv infusion 50 mL/hr INTRAVENOUS CONTINUOUS ondansetron (PF) 4 mg injection (ZOFRAN) 4 mg INTRAVENOUS q 6 H PRN oxyCODONE IR 5 mg tab(s) (ROXICODONE) 5 mg ORAL q 4 H PRN carvedilol 6.25 mg tab(s) (COREG) 6.25 mg ORAL BID w MEALS atorvastatin 20 mg tab(s) (LIPITOR) 20 mg ORAL DAILY acetaminophen 500-1,000 mg tab(s) (TYLENOL) 500-1,000 mg ORAL q 6 H HYDROmorphone 0.4 mg injection (DILAUDID) 0.4 mg INTRAVENOUS q 4 H PRN enoxaparin 40 mg injection (LOVENOX) 40 mg SUBCUTANEOUS q 24 HR ropivacaine nerve block 0.2% (2 mg/mL) - 200 mL PERIPHERAL NERVE CATHETER CONTINUOUS ropivacaine nerve block 0.2% (2 mg/mL) - 200 mL PERIPHERAL NERVE CATHETER CONTINUOUS NaCl 0.9% iv flush bag 20 mL INTRAVENOUS PRN potassium chloride iv piggyback 20 mEq/100 mL 20 mEq INTRAVENOUS q 1 H NaCl 0.9% iv flush bag 20 mL INTRAVENOUS PRN magnesium sulfate iv piggyback in sterile water 2 g 50 mL 2 g INTRAVENOUS ONCE potassium phosphate 30 mmol in NaCl 0.9% 250 mL 30 mmol INTRAVENOUS ONCEBoston State [id number] NoteHNO ID: [id number] Author: Chris Avendano MD Service: General Surgery Author Type: Physician Type: Progress Notes Filed: 02/25/2023 5:40 PM Note Text: General Surgery Progress Note Service Date: 02/25/2023 Assessment and Plan: Yoni Ramirez is a 77 year old male with history of of arthritis, BPH, gout, HTN, hypercholesteremia, prostate cancer (surgery and radiation treatment), diverticulosis, urinary incontinence who was admitted on 02/23/2023 for left inguinal hernia repair, found to have large L femoral hernia s/p bilateral open TAR, Excision of previously implanted mesh, Implantation of 30 x [address] Donato Bishop MD 02/23. Hospital course has been uncomplicated at this point. Neuro: Pain control: Tylenol, Oxycodone and Dilaudid PRN Cardiac: Vitals stable. Home meds: Coreg resumed Respiratory: Incentive spirometry. Minimize use of supplemental O2. GI: Diet: Keep CLD. Antiemetic available. FEN: IV fluids: LR at 75cc cc/hr. Electrolytes repleted PRN. Renal: Urine output adequate. Creatinine WNR. ID: Afebrile over last 24 hours. Will follow-up labs Heme: Hemoglobin Stable . No clinical evidence of bleeding. Will follow-up labs Wound: Covered with dressing. Dressing removed MSK: PT/OT Lines/Drains: pIV, R and L FERNANDO Prophylaxis: IPCs, Lovenox 40 daily Dispo: RNF pending recovery Plan to be discussed with Staff Michelle Bryant MD General Surgery Resident For team paging 6AM-6PM during weekdays: [phone] for [facility] Team For team paging after 6PM or on weekend / holidays: [phone] for General Surgery Subjective: Acute events overnight: None. Pain: Tolerated, got a Tap block. Nausea: No. Vomiting: No. Flatus: No. Bowel movement: No. R FERNANDO 125 SS, L FERNANDO 115 SS Physical Exam: BP 155/71 Pulse 77 Temp 36.8 ?C (98.2 ?F) (Oral) Resp 19 SpO2 93% GENERAL: Not in distress SKIN: No jaundice LUNGS: nonlabored breathing CARDIAC: warm and well perfused throughout ABDOMEN: wound clean, dry and intact, drain Jps SS, soft, mildly distended, approprietly tender NEURO: grossly intact Labs: CBC, BMP, MG, PHOS Recent Labs 02/24/23 0450 02/14/23 1409 12/14/21 0957 06/16/21 0825 WBC 10.56 6.75 3.73 3.08* HB 12.8* 14.4 13.2 13.0 HCT 38.3* 44.7 39.2 38.4* PLT 146* 191 169 149* NA 140 141 142 -- K 3.8 4.2 3.8 -- CHLOR 105 103 105 -- CO2 27 30 29 -- BUN 11 16 14 -- CREAT 0.61* 0.70* 0.70* -- GLUC 163* 70* 105* -- CA 8.6 9.7 9.8 -- MG 1.8 -- -- -- Liver Function, Amylase, AND Lipase Recent Labs 12/14/21 0957 TPROT 6.6 ALB 3.9 ALT 18 AST 21 ALKPHOS 135* TBILI 0.4 Coags No results for input(s): APTT, PT, INR in the last 65365 hours. Intake and Output: Date 02/24/23699 - 02/25/2365802/25/23699 - 02/26/23 0659 Shift 7045-7764 3982-6094 3076-8914 24 Hour Total 0763-9270 9926-6604 2951-4370 24 Hour Total INTAKE PO 240 450 250 940 PO 240 450 250 940 IV 3754 306 1721 Volume (mL) (ceFAZolin iv piggyback 2 g in D5W (iso-osmotic) 100 mL (ANCEF)) 100 100 Volume (mL) (lactated ringers iv infusion) 9555 724 5134 Shift Total 240 2017 79 3053 OUTPUT Urine 613 044 7858 3025 Void (ml) 250 250 Output ([REMOVED] Indwelling Urinary Catheter 02/23/23 2325 Assessment Spear 02/25/23 0012) 489 154 6854 2575 Output ( External Collection Device 02/25/23 0000) 200 200 Emesis 0 0 Emesis (ml) 0 0 Tubes 130 40 70 240 Drain/Tube Output (Drain/Tube 02/23/232119 Chip Spivey Right Upper Quadrant Abdomen Drain #1) 75 20 30 125 Drain/Tube Output (Drain/Tube 02/23/232121 Chip Spivey Left Upper Quadrant Abdomen) 55 20 40 115 # of BMs Number of BMs 0 x 0 x 1 x 1 x Shift Total 914 507 5970 3265 Weight (kg) Current Medications: Current Facility-Administered Medications Medication Dose Route Frequency lactated ringers iv infusion 75 mL/hr INTRAVENOUS CONTINUOUS ondansetron (PF) 4 mg injection (ZOFRAN) 4 mg INTRAVENOUS q 6 H PRN oxyCODONE IR 5 mg tab(s) (ROXICODONE) 5 mg ORAL q 4 H PRN carvedilol 6.25 mg tab(s) (COREG) 6.25 mg ORAL BID w MEALS atorvastatin 20 mg tab(s) (LIPITOR) 20 mg ORAL DAILY acetaminophen 500-1,000 mg tab(s) (TYLENOL) 500-1,000 mg ORAL q 6 H HYDROmorphone 0.4 mg injection (DILAUDID) 0.4 mg INTRAVENOUS q 4 H PRN enoxaparin 40 mg injection (LOVENOX) 40 mg SUBCUTANEOUS q 24 HR ropivacaine nerve block 0.2% (2 mg/mL) - 200 mL PERIPHERAL NERVE CATHETER CONTINUOUS ropivacaine nerve block 0.2% (2 mg/mL) - 200 mL PERIPHERAL NERVE CATHETER CONTINUOUSBoston State [id number] NoteHNO ID: [id number] Author: Chris Avendano MD Service: General Surgery Author Type: Physician Type: Progress Notes Filed: 02/24/2023 9:53 AM Note Text: General Surgery Progress Note Service Date: 02/24/2023 Assessment and Plan: Yoni Ramirez is a 77 year old male with history of of arthritis, BPH, gout, HTN, hypercholesteremia, prostate cancer (surgery and radiation treatment), diverticulosis, urinary incontinence who was admitted on 02/23/2023 for left inguinal hernia repair, found to have large L femoral hernia s/p bilateral open TAR, Excision of previously implanted mesh, Implantation of 30 x [address] Donato Bishop MD 02/23. Hospital course has been uncomplicated at this point. Neuro: Pain control: Tylenol, Oxycodone and Dilaudid PRN Cardiac: Vitals stable. Home meds: Coreg resumed Respiratory: Incentive spirometry. Minimize use of supplemental O2. GI: Diet: Keep CLD. Antiemetic available. FEN: IV fluids: LR at 75cc cc/hr. Electrolytes repleted PRN. Renal: Urine output adequate. Creatinine WNR. ID: WBC WNR. afebrile over last 24 hours. Perio Ancef to be completed today Heme: Hemoglobin Stable . No clinical evidence of bleeding. Wound: Covered with dressing MSK: PT/OT Lines/Drains: pIV, R and L FERNANDO, Spear catheter Prophylaxis: IPCs, Lovenox 40 daily Dispo: RNF pending recovery Plan to be discussed with Staff Carolina Lorenz MD, PGY-1 General Surgery Resident Pager [phone] For after hours issues, please call the on-call pager For team paging 6AM-6PM during weekdays: [phone] for [facility] Team For team paging after 6PM or on weekend / holidays: [phone] for General Surgery Subjective: Acute events overnight: None. Pain: Tolerated, got a Tap block. Nausea: No. Vomiting: No. Flatus: No. Bowel movement: No. R FERNANDO 90 SS, L FERNANDO 35 SS Physical Exam: BP 134/66 Pulse 81 Temp 36.9 ?C (98.4 ?F) (Oral) Resp 16 SpO2 91% GENERAL: Not in distress SKIN: No jaundice LUNGS: nonlabored breathing on NC 2L CARDIAC: warm and well perfused throughout ABDOMEN: wound clean, dry and intact, drain Jps SS, soft, mildly distended, approprietly tender NEURO: grossly intact Labs: CBC, BMP, MG, PHOS Recent Labs 02/24/23 0450 02/14/23 1409 12/14/21 0957 06/16/21 0825 WBC 10.56 6.75 3.73 3.08* HB 12.8* 14.4 13.2 13.0 HCT 38.3* 44.7 39.2 38.4* PLT 146* 191 169 149* NA 140 141 142 -- K 3.8 4.2 3.8 -- CHLOR 105 103 105 -- CO2 27 30 29 -- BUN 11 16 14 -- CREAT 0.61* 0.70* 0.70* -- GLUC 163* 70* 105* -- CA 8.6 9.7 9.8 -- MG 1.8 -- -- -- Liver Function, Amylase, AND Lipase Recent Labs 12/14/21 0957 TPROT 6.6 ALB 3.9 ALT 18 AST 21 ALKPHOS 135* TBILI 0.4 Coags No results for input(s): APTT, PT, INR in the last 08128 hours. Intake and Output: Date 02/23/23699 - 02/24/2365802/24/23699 - 02/25/23 0659 Shift 2101-3491 7782-9464 6644-1719 24 Hour Total 7848-4636 8108-1096 7548-3078 24 Hour Total INTAKE PO 60 60 PO 60 60 IV 100 4360 1000 5460 Volume (mL) (ceFAZolin iv piggyback 2 g in D5W (iso-osmotic) 100 mL (ANCEF)) 100 10 110 Volume (mL) (magnesium sulfate 2 g in NaCl 0.9% 100 mL) 100 100 Volume (mL) (albumin (5%) infusion) 250 250 Volume (mL) (lactated ringers iv infusion) 4000 4000 Volume (mL) (lactated ringers iv infusion) 1000 1000 Shift Total 100 4360 1060 5520 OUTPUT Urine 650 1150 1800 OR Urine Output 650 650 Output ( Indwelling Urinary Catheter 02/23/23 2325 Assessment Spear) 1150 1150 Tubes 125 125 Drain/Tube Output (Drain/Tube 02/23/23 2120 Chip Spivey Right Upper Quadrant Abdomen Drain #1) 90 90 Drain/Tube Output (Drain/Tube 02/23/232121 Chip Spivey Left Upper Quadrant Abdomen) 35 35 # of BMs Number of BMs 0 x 0 x Blood 100 100 Estimated Blood loss 100 100 Shift Total 750 1275 2025 Weight (kg) Current Medications: Current Facility-Administered Medications Medication Dose Route Frequency heparin 5,000 Units injection 5,000 Units SUBCUTANEOUS q 12 H lactated ringers iv infusion 75 mL/hr INTRAVENOUS CONTINUOUS ondansetron (PF) 4 mg injection (ZOFRAN) 4 mg INTRAVENOUS q 6 H PRN acetaminophen 325-650 mg tab(s) (TYLENOL) 325-650 mg ORAL q 4 H PRN oxyCODONE IR 5 mg tab(s) (ROXICODONE) 5 mg ORAL q 4 H PRN carvedilol 6.25 mg tab(s) (COREG) 6.25 mg ORAL BID w MEALS atorvastatin 20 mg tab(s) (LIPITOR) 20 mg ORAL DAILY ceFAZolin iv piggyback 2 g in D5W (iso-osmotic) 100 mL (ANCEF) 2 g INTRAVENOUS q 8 [facility]05-13-2023 NoteHNO ID: [id number] Author: Perez Salvador MD Service: General Surgery Author Type: Resident Type: Plan of Care Filed: 02/24/2023 4:59 AM Note Text: GENERAL SURGERY POST-OPERATIVE CHECK NOTE PATIENT NAME: Yoni Ramirez AGE: [age] year old : 1945 SEX: male ASSESSMENT AND PLAN: 77 year old male POD0 s/p Attempted [id number] repair of L femoral hernia, Excision of previously implanted mesh, Exploratory laparotomy, Bilateral TAR, and Implantation of 30 x 30 cm prolene mesh currently doing well on RNF. Continue routine post-operative care, tap blocks working well PRN pain and nausea meds Diet: Clear Liquid Strict I/Os Incentive spirometer 10 breaths/hr while awake, SCD while in bed, and encourage mobilization, ambulation, and out of bed. Perez Agrawal MD General Surgery, PGY-1 Personal Pager/Phone: [phone] Service Pager: [phone] ( [employer] For weekday evenings (6PM-6AM) or weekends/holidays, please page [phone] ([facility] Surg weekends/nights) SUBJECTIVE: Patient feels well. Pain well-controlled. No nausea or vomiting. Denies chest pain or shortness of breath. OBJECTIVE: VITAL SIGNS: BP 162/78 Pulse 86 Temp (Src) 98.6 (Oral) Resp 12 SpO2 93% O2 Therapy: Nasal Cannula, Liters: 2 PHYSICAL EXAM: GENERAL: Alert and oriented, no acute distress, cooperative. LUNGS: Non-labored breathing on 2LN. CARDIAC: Regular rate. ABDOMEN: Soft, tender as appropriate, non-distended WOUND: Incision clean, dry and intact without strike-through LINES/TUBES: FERNANDO X2 [facility]05-13-2023 NoteHNO ID: [id number] Author: Tristan Solorio MD Service: Anesthesiology Author Type: Anesthesiologist Type: Anesthesia Procedure Notes Filed: 02/23/2023 11:18 PM Note Text: ANESTHESIOLOGY PROCEDURE NOTE Peripheral Nerve Block General Information Procedure Start Time/Medication Administration: 02/23/2023 10:41 PM Procedure End time: 02/23/2023 11:07 PM Patient location during procedure: OR Timeout Performed Pre-procedure: timeout performed Consent Obtained: Yes Patient identity confirmed: care steamer blocker, 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 Reason for block: post-op pain management/at surgeon's request Staffing Anesthesiologist: Tristan Solorio MD Performed by: anesthesiologist Preparation Sterility Preparation: hand hygiene performed prior to procedure, sterile gloves, drapes, and procedure tray, surgical cap used, mask used, sterile drape used during line insertion, skin prep agent completely dried prior to procedure Sterility Technique Not Completely Performed Due to Extreme Emergency: No Site Prep: Chloraprep Pre-Procedure Neuro Exam Location: ABDOMEN Sensory: intact Motor: intact Procedure Details Patient Position: supine Monitoring: EKG, Pulse OX and NIBP Block Type Trunk: TAP block Approach: anterior Laterality: bilateral Injection Technique: catheter Ultrasound Guided: Yes Image in Chart: yes Local Infiltration: Yes Needle Needle Type: Tuohy Needle Gauge: 18 G Needle Length: 100 mm Needle Localization: anatomical landmarks and ultrasound Needle Insertion Depth: 9 cm Catheter Type: E-Cath Plus Catheter Size: 20 G Catheter at Skin Depth: 15 (left) cm Needle Insertion Depth: 9 (right) cm Multiple Catheters Used: Yes Second Catheter at Skin Depth: 15 (right) cm Test Dose Response: negative test dose Assessment Injection assessment: negative aspiration, no paresthesia on injection, incremental injection and local visualized surrounding nerve on ultrasound Paresthesia: none Post-Procedure Neuro Exam Expected Regional Anesthesia: Yes Medications Administered Bupivacaine (PF) 0.25 % (2.5 mg/mL) injection (SENSORCAINE MPF), 30 mL Comments Injected 15 cc's per side. Negative aspirate, Patient tolerated procedure well. See nursing for vitals. SIGNATURE: Tristan Solorio MD PATIENT NAME: Yoni Ramirez DATE: February 23, 2023 TIME: 11:15 PM CSN: [id number] NoteHNO ID: [id number] Author: Tristan Solorio MD Service: Anesthesiology Author Type: Anesthesiologist Type: Anesthesia Procedure Notes Filed: 02/23/2023 11:15 PM Note Text: ANESTHESIOLOGY PROCEDURE NOTE Peripheral Nerve Block General Information Procedure Start Time/Medication Administration: 02/23/2023 10:41 PM Procedure End time: 02/23/2023 11:07 PM Patient location during procedure: OR Timeout Performed Pre-procedure: timeout performed Consent Obtained: Yes Patient identity confirmed: care steamer blocker, 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 Reason for block: post-op pain management/at surgeon's request Staffing Anesthesiologist: Tristan Solorio MD Performed by: anesthesiologist Preparation Sterility Preparation: hand hygiene performed prior to procedure, sterile gloves, drapes, and procedure tray, surgical cap used, mask used, sterile drape used during line insertion, skin prep agent completely dried prior to procedure Sterility Technique Not Completely Performed Due to Extreme Emergency: No Site Prep: Chloraprep Pre-Procedure Neuro Exam Location: ABDOMEN Sensory: intact Motor: intact Procedure Details Patient Position: supine Monitoring: EKG, Pulse OX and NIBP Block Type Trunk: rectus sheath block Laterality: bilateral Injection Technique: single-shot Ultrasound Guided: Yes Image in Chart: yes Local Infiltration: Yes Needle Needle Type: stimulating Needle Gauge: 21 G Needle Length: 100 mm Needle Localization: anatomical landmarks and ultrasound Assessment Injection assessment: negative aspiration, no paresthesia on injection and incremental injection Paresthesia: none Post-Procedure Neuro Exam Expected Regional Anesthesia: Yes Medications Administered Bupivacaine (PF) 0.5 % (5 mg/mL) injection, 20 mL bupivacaine liposome (PF) 1.3 % (13.3 mg/mL) injection (EXPAREL), 133 mg Comments 20 cc's 0.5% bupivicaine diluted with 20 cc's Exparel. Injected 20 cc's of mixed solution per side. Negative aspirate, Patient tolerated procedure well. See nursing for vitals. SIGNATURE: Tristan Solorio MD PATIENT NAME: Yoni Ramirez DATE: February 23, 2023 TIME: 11:13 PM CSN: [id number] NoteHNO ID: [id number] Author: Stefanie Hitchcock APRN.EMOTIONAL SUPPORT TEACHER Service: Anesthesiology Author Type: Nurse Network Engineering Advisor Type: Anesthesia Procedure Notes Filed: 02/23/2023 5:16 PM Note Text: ANESTHESIOLOGY PROCEDURE NOTE PIV General Information Procedure Start Time/Medication Administration: 02/23/2023 5:05 PM Patient Location: OR Staffing EMOTIONAL SUPPORT TEACHER: Stefanie Hitchcock APRN.EMOTIONAL SUPPORT TEACHER Performed by: LARS Preparation Sterility Preparation: hand hygiene performed prior to procedure, surgical cap used, mask used Site Prep: chlorhexidine Procedure Details Indication: need for IV access Needle Size/Type: 18 gauge angiocath Orientation: Left Location: Hand Imaging Guidance Used: No SIGNATURE: Stefanie Hitchcock APRN.CRNA PATIENT NAME: Yoni Ramirez DATE: February 23, 2023 TIME: 5:15 PM CSN: [id number] NoteHNO ID: [id number] Author: Stefanie Hitchcock APRN.EMOTIONAL SUPPORT TEACHER Service: Anesthesiology Author Type: Nurse Network Engineering Advisor Type: Anesthesia Procedure Notes Filed: 02/23/2023 3:13 PM Note Text: ANESTHESIOLOGY PROCEDURE NOTE Airway General Information Procedure Start Time/Medication Administration: 02/23/2023 2:44 PM Patient location during procedure: OR Timeout Performed Pre-procedure: timeout performed Consent Obtained: Yes Patient identity confirmed: arm band, care steamer blocker and patient Staffing Anesthesiologist: Faisal Kim MD EMOTIONAL SUPPORT TEACHER: Stefanie Hitchcock APRN.EMOTIONAL SUPPORT TEACHER Performed by: LARS Indications and Patient Condition Indications for airway management: anesthesia Preoxygenated: yes anesthesia circuit Patient position: sniffing Method: asleep Cricoid Pressure: Yes Difficult Mask: No Final Airway Details Final airway type: endotracheal airway Final Endotracheal Airway: ETT Cuffed: yes Successful intubation technique: direct laryngoscopy Devices used: intubating stylet Endotracheal tube insertion site: oral Blade: Lv Blade size: #4 ETT size (mm): 7.5 Measured from: lips Measurement (cm): 22 Placement verified by: chest auscultation and capnometry Cormack-Lehane Classification: grade I - full view of glottis Number of attempts at approach: 1 Airway not difficult SIGNATURE: Stefanie Hitchcock APRN.CRNA PATIENT NAME: Yoni Ramirez DATE: February 23, 2023 TIME: 3:11 PM CSN: [id number] Evaluation note* Encounter Date Diagnosis Assessment Notes Treatment Notes Treatment Clinical Notes February, Acute pain of right knee (ICD-10 - M25.561) Ice, elevate and rest. No obvious s/s septic joint or inflammatory arthritis Check ESR, CRP and CBC and if normal, can't see any reason he can't proceed w/ surgery this February, Swelling of right knee joint (ICD-10 - M25.461) [employer] Other 05-03-2023 History and physical note* Nichole Humphrey APRN.SPARKER AND PATCHER - 02/14/2023 1:40 PM EDT HISTORY AND PHYSICAL EXAMINATION SERVICE DATE: 02/14/2023 SERVICE TIME: 1:01 PM PRIMARY CARE PHYSICIAN: Bro Chavez DO REASON FOR VISIT: Yoni Ramirez is a 77 year old male who is scheduled for Open repair left recurrent inguina hernia with mesh at the request of Dr. Donato Bishop for consultation. My final recommendation will be communicated back to the requesting physician by way of shared medical record or letter. The patient has the following: ACTIVE PROBLEM LIST Obesity, Class I, Bmi 30-34.9 Obstructive Sleep Apnea Syndrome Primary Hypertension Prostate Cancer (Hcc) Gout Subjective CHIEF COMPLAINT: hernia HPI: 77 year old male with recurrent inguinal hernia. He has a history of open left inguinal herniain 2014. He started to notice recurrent bulging in the left groin a few years ago that has slowly grown since. States has discomfort today 2/10 PAST MEDICAL HISTORY Diagnosis Date Arthritis BPH (benign prostatic hyperplasia) Gout HTN (hypertension) Hypercholesteremia Incontinence of urine Kidney stones Prostate cancer (HCC) Renal cyst Rising PSA following treatment for malignant neoplasm of prostate PAST SURGICAL HISTORY Procedure Laterality Date COLONOSCOPY HERNIA REPAIR HX umbilical and Left Inguinal RADICAL PROSTATECTOMY Open Radical retropubic prostatectomy w/ bilateral pelvic lymphadenectomy TONSILLECTOMY HX US BIOPSY PROSTATE FAMILY HISTORY Problem Relation Age of Onset Lung Cancer Mother Lung Cancer Father Anesthesia Problems No Family History SOCIAL HISTORY: Social History Tobacco Use Smoking status: Never Smokeless tobacco: Never Substance Use Topics Alcohol use: Not Currently Drug use: Never MEDICATIONS: Prior to Admission medications as of 02/14/23 1336 Medication Sig Last Dose Taking lisinopril (ZESTRIL) 10 mg tablet q 24 HR. Yes melatonin 3 mg tablet Take 3 mg by mouth daily at bedtime. Yes carvedilol (COREG) 12.5 mg tablet 6.25 mg twice daily with meals. Yes aspirin, enteric coated (ASPIRIN, ENTERIC COATED) 81 mg EC tablet Take 81 mg by mouth once daily. Yes ketoconazole (NIZORAL) 2 % cream Apply to affected area twice daily. Patient taking differently: Apply to affected area twice daily. As needed Yes amLODIPine (NORVASC) 5 mg tablet Take by mouth once daily. Yes lisinopril-hydroCHLOROthiazide (PRINZIDE, ZESTORETIC) 20-25 mg per tablet Take 1 tablet by mouth once daily. Yes allopurinol (ZYLOPRIM) 300 mg tablet Take 300 mg by mouth once daily. Yes atorvastatin (LIPITOR) 20 mg tablet Take 20 mg by mouth once daily. No medication comments found. CURRENT ALLERGIES: ALLERGIES No Known Allergies COVID VACCINATION STATUS: Fully vaccinated REVIEW OF SYSTEMS: PAIN ASSESSMENT: General: No weight loss, malaise or fevers. Neuro: No history of TIA's, stroke, DIRECTOR OF CARDIOLOGY SERVICE LINE tumor, impaired sensorium, hemiplegia, paraplegia or quadraplegia. No neurological symptoms or problems. Respiratory: No history of current cough or dyspnea, or pneumonia in the past 6 weeks. No history of respiratory/pulmonary symptoms or problems. + MIHIR- uses CPAP Cardiovascular: Negative for Arrhythmia, CAD, Chest Pain + HTN, HLD Remote hx of superficial blood clot > 10 years- no AC at time GI: No history of GI symptoms or problems. No history of esophageal varices, recent ascites, or ETOH greater than 2 drinks per day. : Positive for urinary incontinence following prostate surgery Hx of prostate CA Endocrine: No history of diabetes. Has not taken steroids within the past 30 days. No history of endocrinological symptoms or problems. Hematology: Chronic anti-coagulation / platelet meds (Aspirin) Oncology: Hx of prostate CA s/p prostatectomy, lupron injections, radiation. 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 Musculoskeletal: Negative for joint pain or swelling, back pain or muscle pain. Skin: Negative for lesions, rash and itching. Objective PHYSICAL EXAM: VITALS: BP 164/81 Pulse 61 Temp (Src) 98.1 (Temporal Artery) Resp 16 Ht 5' 10 (1.78m) Wt 242 lb (109.8kg) SpO2 96% BMI 34.72 kg/(m^2). General: Alert and oriented, No acute distress Skin: Normal color, no rash, no lesions. HEENT: EOM, pupils equal, round and reactive., No carotid bruits Cardiovascular: Normal S1 & S2, no rubs, murmurs or gallops. No JVD. Pulse regular. Lungs: Normal breath sounds, no wheezes or crackles. Abdomen: Soft, non-tender, no rigidity. Extremities: No deformity, no edema or tenderness, no joint swelling or clubbing. Neurological: Normal cognition and motor skills. Pulses: Carotid and radial pulses normal +2. Diagnostic tests reviewed for today's visit: PENDING- Labs Assessment/Plan Obesity, Class I, BMI 30-34.9 Assessment: Body mass index is 34.72 kg/m . Obstructive sleep apnea syndrome Assessment: compliant with CPAP Primary hypertension Assessment: managed on medications BP 164/81 Advised to monitor at home and discuss with PCP Prostate cancer (HCC) Assessment: s/p prostatectomy, lupron injections and radiation + urinary incontinence since surgery Gout Assessment: on Allopurinol Recent flare up two weeks ago--was prednisone resolved METS: Climb a flight of stairs or walk up a hill (5.50 METs) Patient denies any chest pain or undue shortness of breath with the above physical activity. ASA Class: 3 ANESTHESIA FINDINGS: Intubation History: No history of difficult intubation Significant Anesthesia Considerations: None Airway Exam: General: Normal appearance Mallampati Score is CLASS III ULBT: Class II - Lower incisors can bite the upper lip below the isaac line Neck: Normal appearance and function Mouth: Normal tongue size Dentition: Intact Airway History: No abnormal airway history STOP BANG Score: MIHIR uses CPAP/BiPAP PLAN This patient is optimally prepared for surgery pending LABS. CONSULTS: Patient does not require consults for optimization at this time. The Following Tests/Procedures Have Been Initiated: Orders Placed This Encounter CBC with Differential Standing Status: Future Number of Occurrences: 1 Standing Expiration Date: 04/16/2023 BMP Standing Status: Future Number of Occurrences: 1 Standing Expiration Date: 04/16/2023 lisinopril (ZESTRIL) 10 mg tablet Sig: q 24 HR. melatonin 3 mg tablet Sig: Take 3 mg by mouth daily at bedtime. Planned Anesthetic: General Instructions Given to Patient: Instructions located in the after visit summary. Patient given verbal and written preop instructions and voices comprehension and compliance. SIGNATURE: Nichole Humphrey APRN.CNP PATIENT NAME: Yoni Ramirez DATE: 02/14/2023 TIME: documented in this encounterL[facility] Instructions* Patient Instructions* Nichole Humphrey APRN.CNP - 02/14/2023 1:31 PM EDT PATIENT PREOPERATIVE INSTRUCTIONS Donato Bishop MD has scheduled you for your procedure at this surgery center: [facility]: [phone] --[id number] [address]. Please check in on the1st floor at registration desk 6. Please read below carefully for your personalized instructions. Arrival Time for Surgery: - The Surgery Center or hospital where you are having surgery will call the afternoon before surgery (or Sunday for Sunday surgery) with a scheduled arrival time. - If you have not heard by 4 pm, please contact the surgery center above. Please be aware that emergency situations arise, which may delay or change your surgical time. If this happens, we will notify you as soon as possible and regret any inconvenience. Dietary Restrictions: - No solid food after midnight. - You may have 12 ounces of clear liquids (water, clear juices such as apple juice or gatorade, carbonated beverages, clear tea, black coffee, jello) until 2 hours before scheduled arrival at facility. No milk/cream Medications: Unless instructed differently below, stay on all of your medications until your surgery. Approved medications to take the morning of surgery with a sip of water: Carvedilol, Amlodipine, Atorvastatin DO NOT TAKE YOUR Lisinopril THE NIGHT BEFORE OR MORNING OF SURGERY. If you take any medications for erectile dysfunction-Cialis (Tadalafil), Levitra, Staxyn (Vardenafil) Viagra (Sildenenafil please do not take these for 48 hours before surgery. If you start any new medications after today's visit, please contact the surgeon's office. Blood Thinning Medications: - Stop NSAIDS (Ibuprofen, Advil, Aleve, Motrin, Celebrex, Mobic, etc.) 7 days before surgery, as directed by your surgeon. - Stop Aspirin 7 days before surgery, as directed by your surgeon. - Stop Vitamin E, ALL multi-vitamins, herbals and dietary supplements 7 days before surgery. - You may take Tylenol (Acetaminophen) or any of your pain medications that do not contain aspirin or NSAIDS as needed. Important Reminders: - If you use CPAP/BIPAP, bring the machine with you to the surgery center. - If you are prescribed inhalers for breathing, continue using them. - Candy, mints, and tobacco products are NOT permitted the morning of surgery. - Hearing aids, dentures and glasses may be worn the morning of surgery. - NO jewelry, body piercings, makeup, hairpins or contacts are to be worn the day of surgery. If you develop symptoms such as a fever, cold, or flu, or have other changes to your health within TWO DAYS of scheduled surgery or the morning of surgery, please contact the surgery center above. Personal Belongings: -Please have photo ID and insurance cards. -If you do not have a copy of advance directives on file with us, please bring a copy with you on the day of surgery. - Leave ALL valuables and money at home or with family members. For Outpatient Procedures: - YOU MUST HAVE A RESPONSIBLE INSET CUTTER TAKE YOU HOME. A PRODUCE ASSISTANT OR JEWELRY BENCH MOLDER CANNOT BE MADE A RESPONSIBLE INSET CUTTER. - We recommend that a responsible person stays with you overnight to take care of you. - You cannot stay in a hotel alone after outpatient surgery. You will not be permitted to have yoursurgery, if you do not have someone to take care of you. If you already have an Advance Directive, please fax a copy to [phone] or email to for it to be added to your chart. If you do not have an Advance Directive, you can find the appropriate form and more information at [email or web address]. We recommend that youcomplete the Advance Directive form found on the website and bring it with you the day of your surgery. It can be witnessed and scanned into your chart that day. documented in this encounterL[facility]04-25-2023 Evaluation note* Encounter Date Diagnosis Assessment Notes Treatment Notes Treatment Clinical Notes Jan, Essential (primary) hypertension (ICD-10 - I10) Jan, Hyperlipidemia type II (ICD-10 - E78.01) [employer] Other 04-24-2023 Evaluation note* Encounter Date Diagnosis Assessment Notes Treatment Notes Treatment Clinical Notes Jan, Strain of right knee , initial encounter (ICD-10 - S86.911A) Ice, heat, elevate and brace IA injection? Prednisone? Jan, Swelling of right knee joint (ICD-10 - M25.461) Rest w/ intermittent ice Jan, Primary osteoarthritis of right knee (ICD-10 - M17.11) Quad exercises, ice/heat, Tylenol [employer] Other 04-17-2023 Evaluation note* Encounter Date Diagnosis Assessment Notes Treatment Notes Treatment Clinical Notes Jan, Preop exam for internal medicine (ICD-10 - Z01.818) I reviewed his medications. - instructed to hold ASA for 7 days - instructed to hold HCTZ the morning of surgery Jan, Essential (primary) hypertension (ICD-10 - I10) Stable Instructed to take 20mg Lisinopril the morning of surgery, holding the HCTZ Jan, Obstructive sleep apnea (ICD-10 - G47.33) Compliance reviewed. Jan, Adenocarcinoma of prostate (ICD-10 - C61) No s/s of recurrence. Jan, Hyperlipidemia type II (ICD-10 - E78.01) Stable Instructed to continue treatment w/o interruption Jan, Acute idiopathic gout, unspecified site (ICD-10 - M10.00) Continue Allopurinol w/o interruption Jan, Obesity (BMI 30-39.9) (ICD-10 - E66.9) Monitor for postoperative hypoventilation w/ sedating pain medications. [email or web address] Other 04-12-2023 Hospital Discharge instructions Patient Education 01/24/2023 10:07:33 Overactive Bladder, Adult Overactive Bladder, Adult Overactive bladder refers to a condition in which a person has a sudden need to pass urine. The person may leak urine if he or she cannot get to the bathroom fast enough (urinary incontinence). A person with this condition may also wake up several times in the night to go to the bathroom. Overactive bladder is associated with poor nerve signals between your bladder and your brain. Your bladder may get the signal to empty before it is full. You may also have very sensitive muscles thatmake your bladder squeeze too soon. These symptoms might interfere with daily work or social activities. What are the causes? This condition may be associated with or caused by: Urinary tract infection. Infection of nearby tissues, such as the prostate. Prostate enlargement. Surgery on the uterus or urethra. Bladder stones, inflammation, or tumors. Drinking too much caffeine or alcohol. Certain medicines, especially medicines that get rid of extra fluid in the body (diuretics). Muscle or nerve weakness, especially from: ?A spinal cord injury. ?Stroke. ?Multiple sclerosis. ?Parkinson's disease. Diabetes. Constipation. What increases the risk? You may be at greater risk for overactive bladder if you: Are an older adult. Smoke. Are going through menopause. Have prostate problems. Have a neurological disease, such as stroke, dementia, Parkinson's disease, or multiple sclerosis (MS). Eat or drink things that irritate the bladder. These include alcohol, spicy food, and caffeine. Are overweight or obese. What are the signs or symptoms? Symptoms of this condition include: Sudden, strong urge to urinate. Leaking urine. Urinating 8 or more times a day. Waking up to urinate 2 or more times a night. How is this diagnosed? Your health care provider may suspect overactive bladder based on your symptoms. He or she will diagnose this condition by: A physical exam and medical history. Blood or urine tests. You might need bladder or urine tests to help determine what is causing your overactive bladder. You might also need to see a health care provider who specializes in urinary tract problems (urologist). How is this treated? Treatment for overactive bladder depends on the cause of your condition and whether it is mild or severe. You can also make lifestyle changes at home. Options include: Bladder training. This may include: ?Learning to control the urge to urinate by following a schedule that directs you to urinate at regular intervals (timed voiding). ?Doing Kegel exercises to strengthen your pelvic floor muscles, which support your bladder. Toning these muscles can help you control urination, even if your bladder muscles are overactive. Special devices. This may include: ?Biofeedback, which uses sensors to help you become aware of your body's signals. ?Electrical stimulation, which uses electrodes placed inside the body (implanted) or outside the body. These electrodes send gentle pulses of electricity to strengthen the nerves or muscles that control the bladder. ?Women may use a plastic device that fits into the vagina and supports the bladder (pessary). Medicines. ?Antibiotics to treat bladder infection. ?Antispasmodics to stop the bladder from releasing urine at the wrong time. ?Tricyclic antidepressants to relax bladder muscles. ?Injections of botulinum toxin type A directly into the bladder tissue to relax bladder muscles. Lifestyle changes. This may include: ?Weight loss. Talk to your health care provider about weight loss methods that would work best for you. ?Diet changes. This may include reducing how much alcohol and caffeine you consume, or drinking fluids at different times of the day. ?Not smoking. Do not use any products that contain nicotine or tobacco, such as cigarettes and e-cigarettes. If you need help quitting, ask your health care provider. Surgery. ?A device may be implanted to help manage the nerve signals that control urination. ?An electrode may be implanted to stimulate electrical signals in the bladder. ?A procedure may be done to change the shape of the bladder. This is done only in very severe cases. Follow these instructions at home: Lifestyle Make any diet or lifestyle changes that are recommended by your health care provider. These may include: ?Drinking less fluid or drinking fluids at different times of the day. ?Cutting down on caffeine or alcohol. ?Doing Kegel exercises. ?Losing weight if needed. ?Eating a healthy and balanced diet to prevent constipation. This may include: ?Eating foods that are high in fiber, such as fresh fruits and vegetables, whole grains, and beans. ?Limiting foods that are high in fat and processed sugars, such as fried and sweet foods. General instructions Take yaqz-avv-ylxyuxi and prescription medicines only as told by your health care provider. If you were prescribed an antibiotic medicine, take it as told by your health care provider. Do notstop taking the antibiotic even if you start to feel better. Use any implants or pessary as told by your health care provider. If needed, wear pads to absorb urine leakage. Keep a journal or log to track how much and when you drink and when you feel the need to urinate. This will help your health care provider monitor your condition. Keep all follow-up visits as told by your health care provider. This is important. Contact a health care provider if: You have a fever. Your symptoms do not get better with treatment. Your pain and discomfort get worse. You have more frequent urges to urinate. Get help right away if: You are not able to control your bladder. Summary Overactive bladder refers to a condition in which a person has a sudden need to pass urine. Several conditions may lead to an overactive bladder. Treatment for overactive bladder depends on the cause and severity of your condition. Follow your health care provider's instructions about lifestyle changes, doing Kegel exercises, keeping a journal, and taking medicines. This information is not intended to replace advice given to you by your health care provider. Make sure you discuss any questions you have with your health care provider. Document Released: 07/28/2010 Document Revised: 01/22/2020 Document Reviewed: 10/17/2018 [employer] Patient Education 2020 Heidi Shaulis. Follow Up Care 11/08/2022 13:09:05 With:CIERRA ZHU PA-C, URL Address: [address] [place] [address] When:3 months [facility] [place] 03-30-2023 Hospital Discharge instructions Patient Education 01/11/2023 09:48:17 Kegel Exercises Kegel Exercises Kegel exercises can help strengthen your pelvic floor muscles. The pelvic floor is a group of muscles that support your rectum, small intestine, and bladder. In females, pelvic floor muscles also help support the womb (uterus). These muscles help you control the flow of urine and stool. Kegel exercises are painless and simple, and they do not require any equipment. Your provider may suggest Kegel exercises to: Improve bladder and bowel control. Improve sexual response. Improve weak pelvic floor muscles after surgery to remove the uterus (hysterectomy) or (females). Improve weak pelvic floor muscles after prostate gland removal or surgery (males). Kegel exercises involve squeezing your pelvic floor muscles, which are the same muscles you squeezewhen you try to stop the flow of urine or keep from passing gas. The exercises can be done while sitting, standing, or lying down, but it is best to vary your position. Exercises How to do Kegel exercises: 1.Squeeze your pelvic floor muscles tight. You should feel a tight lift in your rectal area. If youare a female, you should also feel a tightness in your vaginal area. Keep your stomach, buttocks, and legs relaxed. 2.Hold the muscles tight for up to 10 seconds. 3.Breathe normally. 4.Relax your muscles. 5.Repeat as told by your health care provider. Repeat this exercise daily as told by your health care provider. Continue to do this exercise for at least 4 6 weeks, or for as long as told by your health care provider. You may be referred to a physical therapist who can help you learn more about how to do Kegel exercises. Depending on your condition, your health care provider may recommend: Varying how long you squeeze your muscles. Doing several sets of exercises every day. Doing exercises for several weeks. Making Kegel exercises a part of your regular exercise routine. This information is not intended to replace advice given to you by your health care provider. Make sure you discuss any questions you have with your health care provider. Document Released: 09/17/2013 Document Revised: 05/21/2019 Document Reviewed: 05/21/2019 [employer] Patient Education 2020 Heidi Shaulis. Follow Up Care 11/08/2022 13:23:11 With:YESSENIA ZHU, CIERRA Roche, URL Address: [address] [place] [address] When: Unknown [facility] [place] 03-16-2023 Hospital Discharge instructions Patient Education 12/28/2022 09:12:02 Urinary Incontinence Urinary Incontinence Urinary incontinence refers to a condition in which a person is unable to control where and when topass urine. A person with this condition will urinate when he or she does not mean to (involuntarily). What are the causes? This condition may be caused by: Medicines. Infections. Constipation. Overactive bladder muscles. Weak bladder muscles. Weak pelvic floor muscles. These muscles provide support for the bladder, intestine, and, in women,the uterus. Enlarged prostate in men. The prostate is a gland near the bladder. When it gets too big, it can pinch the urethra. With the urethra blocked, the bladder can weaken and lose the ability to empty properly. Surgery. Emotional factors, such as anxiety, stress, or post-traumatic stress disorder (PTSD). Pelvic organ prolapse. This happens in women when organs shift out of place and into the vagina. This shift can prevent the bladder and urethra from working properly. What increases the risk? The following factors may make you more likely to develop this condition: Older age. Obesity and physical inactivity. and childbirth. Menopause. Diseases that affect the nerves or spinal cord (neurological diseases). Long-term (chronic) coughing. This can increase pressure on the bladder and pelvic floor muscles. What are the signs or symptoms? Symptoms may vary depending on the type of urinary incontinence you have. They include: A sudden urge to urinate, but passing urine involuntarily before you can get to a bathroom (urge incontinence). Suddenly passing urine with any activity that forces urine to pass, such as coughing, laughing, exercise, or sneezing (stress incontinence). Needing to urinate often, but urinating only a small amount, or constantly dribbling urine (overflow incontinence). Urinating because you cannot get to the bathroom in time due to a physical disability, such as arthritis or injury, or communication and thinking problems, such as Alzheimer disease (functional incontinence). How is this diagnosed? This condition may be diagnosed based on: Your medical history. A physical exam. Tests, such as: ?Urine tests. ?X-rays of your kidney and bladder. ?Ultrasound. ?CT scan. ?Cystoscopy. In this procedure, a health care provider inserts a tube with a light and camera (cystoscope) through the urethra and into the bladder in order to check for problems. ?Urodynamic testing. These tests assess how well the bladder, urethra, and sphincter can store and release urine. There are different types of urodynamic tests, and they vary depending on what the test is measuring. To help diagnose your condition, your health care provider may recommend that you keep a log of when you urinate and how much you urinate. How is this treated? Treatment for this condition depends on the type of incontinence that you have and its cause. Treatment may include: Lifestyle changes, such as: ?Quitting smoking. ?Maintaining a healthy weight. ?Staying active. Try to get 150 minutes of moderate-intensity exercise every week. Ask your health care provider which activities are safe for you. ?Eating a healthy diet. ?Avoid high-fat foods, like fried foods. ?Avoid refined carbohydrates like white bread and white rice. ?Limit how much alcohol and caffeine you drink. ?Increase your fiber intake. Foods such as fresh fruits, vegetables, beans, and whole grains are healthy sources of fiber. Pelvic floor muscle exercises. Bladder training, such as lengthening the amount of time between bathroom breaks, or using the bathroom at regular intervals. Using techniques to suppress bladder urges. This can include distraction techniques or controlled breathing exercises. Medicines to relax the bladder muscles and prevent bladder spasms. Medicines to help slow or prevent the growth of a man's prostate. Botox injections. These can help relax the bladder muscles. Using pulses of electricity to help change bladder reflexes (electrical nerve stimulation). For women, using a medical device assembler to prevent urine leaks. This is a small, tampon-like, disposable device that is inserted into the urethra. Injecting collagen or carbon beads (bulking agents) into the urinary sphincter. These can help thicken tissue and close the bladder opening. Surgery. Follow these instructions at home: Lifestyle Limit alcohol and caffeine. These can fill your bladder quickly and irritate it. Keep yourself clean to help prevent odors and skin damage. Ask your doctor about special skin creams and cleansers that can protect the skin from urine. Consider wearing pads or adult diapers. Make sure to change them regularly, and always change them right after experiencing incontinence. General instructions Take kjrf-rqp-bnacmfg and prescription medicines only as told by your health care provider. Use the bathroom about every 3 4 hours, even if you do not feel the need to urinate. Try to empty your bladder completely every time. After urinating, wait a minute. Then try to urinate again. Make sure you are in a relaxed position while urinating. If your incontinence is caused by nerve problems, keep a log of the medicines you take and the times you go to the bathroom. Keep all follow-up visits as told by your health care provider. This is important. Contact a health care provider if: You have pain that gets worse. Your incontinence gets worse. Get help right away if: You have a fever or chills. You are unable to urinate. You have redness in your groin area or down your legs. Summary Urinary incontinence refers to a condition in which a person is unable to control where and when topass urine. This condition may be caused by medicines, infection, weak bladder muscles, weak pelvic floor muscles, enlargement of the prostate (in men), or surgery. The following factors increase your risk for developing this condition: older age, obesity, and childbirth, menopause, neurological diseases, and chronic coughing. There are several types of urinary incontinence. They include urge incontinence, stress incontinence, overflow incontinence, and functional incontinence. This condition is usually treated first with lifestyle and behavioral changes, such as quitting smoking, eating a healthier diet, and doing regular pelvic floor exercises. Other treatment options include medicines, bulking agents, medical devices, electrical nerve stimulation, or surgery. This information is not intended to replace advice given to you by your health care provider. Make sure you discuss any questions you have with your health care provider. Document Released: 11/08/2005 Document Revised: 10/11/2018 Document Reviewed: 01/10/2018 [employer] Patient Education 2020 Heidi Shaulis. 12/28/2022 09:12:01 Overactive Bladder, Adult Overactive Bladder, Adult Overactive bladder refers to a condition in which a person has a sudden need to pass urine. The person may leak urine if he or she cannot get to the bathroom fast enough (urinary incontinence). A person with this condition may also wake up several times in the night to go to the bathroom. Overactive bladder is associated with poor nerve signals between your bladder and your brain. Your bladder may get the signal to empty before it is full. You may also have very sensitive muscles thatmake your bladder squeeze too soon. These symptoms might interfere with daily work or social activities. What are the causes? This condition may be associated with or caused by: Urinary tract infection. Infection of nearby tissues, such as the prostate. Prostate enlargement. Surgery on the uterus or urethra. Bladder stones, inflammation, or tumors. Drinking too much caffeine or alcohol. Certain medicines, especially medicines that get rid of extra fluid in the body (diuretics). Muscle or nerve weakness, especially from: ?A spinal cord injury. ?Stroke. ?Multiple sclerosis. ?Parkinson's disease. Diabetes. Constipation. What increases the risk? You may be at greater risk for overactive bladder if you: Are an older adult. Smoke. Are going through menopause. Have prostate problems. Have a neurological disease, such as stroke, dementia, Parkinson's disease, or multiple sclerosis (MS). Eat or drink things that irritate the bladder. These include alcohol, spicy food, and caffeine. Are overweight or obese. What are the signs or symptoms? Symptoms of this condition include: Sudden, strong urge to urinate. Leaking urine. Urinating 8 or more times a day. Waking up to urinate 2 or more times a night. How is this diagnosed? Your health care provider may suspect overactive bladder based on your symptoms. He or she will diagnose this condition by: A physical exam and medical history. Blood or urine tests. You might need bladder or urine tests to help determine what is causing your overactive bladder. You might also need to see a health care provider who specializes in urinary tract problems (urologist). How is this treated? Treatment for overactive bladder depends on the cause of your condition and whether it is mild or severe. You can also make lifestyle changes at home. Options include: Bladder training. This may include: ?Learning to control the urge to urinate by following a schedule that directs you to urinate at regular intervals (timed voiding). ?Doing Kegel exercises to strengthen your pelvic floor muscles, which support your bladder. Toning these muscles can help you control urination, even if your bladder muscles are overactive. Special devices. This may include: ?Biofeedback, which uses sensors to help you become aware of your body's signals. ?Electrical stimulation, which uses electrodes placed inside the body (implanted) or outside the body. These electrodes send gentle pulses of electricity to strengthen the nerves or muscles that control the bladder. ?Women may use a plastic device that fits into the vagina and supports the bladder (pessary). Medicines. ?Antibiotics to treat bladder infection. ?Antispasmodics to stop the bladder from releasing urine at the wrong time. ?Tricyclic antidepressants to relax bladder muscles. ?Injections of botulinum toxin type A directly into the bladder tissue to relax bladder muscles. Lifestyle changes. This may include: ?Weight loss. Talk to your health care provider about weight loss methods that would work best for you. ?Diet changes. This may include reducing how much alcohol and caffeine you consume, or drinking fluids at different times of the day. ?Not smoking. Do not use any products that contain nicotine or tobacco, such as cigarettes and e-cigarettes. If you need help quitting, ask your health care provider. Surgery. ?A device may be implanted to help manage the nerve signals that control urination. ?An electrode may be implanted to stimulate electrical signals in the bladder. ?A procedure may be done to change the shape of the bladder. This is done only in very severe cases. Follow these instructions at home: Lifestyle Make any diet or lifestyle changes that are recommended by your health care provider. These may include: ?Drinking less fluid or drinking fluids at different times of the day. ?Cutting down on caffeine or alcohol. ?Doing Kegel exercises. ?Losing weight if needed. ?Eating a healthy and balanced diet to prevent constipation. This may include: ?Eating foods that are high in fiber, such as fresh fruits and vegetables, whole grains, and beans. ?Limiting foods that are high in fat and processed sugars, such as fried and sweet foods. General instructions Take eaka-oih-gzyfixj and prescription medicines only as told by your health care provider. If you were prescribed an antibiotic medicine, take it as told by your health care provider. Do notstop taking the antibiotic even if you start to feel better. Use any implants or pessary as told by your health care provider. If needed, wear pads to absorb urine leakage. Keep a journal or log to track how much and when you drink and when you feel the need to urinate. This will help your health care provider monitor your condition. Keep all follow-up visits as told by your health care provider. This is important. Contact a health care provider if: You have a fever. Your symptoms do not get better with treatment. Your pain and discomfort get worse. You have more frequent urges to urinate. Get help right away if: You are not able to control your bladder. Summary Overactive bladder refers to a condition in which a person has a sudden need to pass urine. Several conditions may lead to an overactive bladder. Treatment for overactive bladder depends on the cause and severity of your condition. Follow your health care provider's instructions about lifestyle changes, doing Kegel exercises, keeping a journal, and taking medicines. This information is not intended to replace advice given to you by your health care provider. Make sure you discuss any questions you have with your health care provider. Document Released: 07/28/2010 Document Revised: 01/22/2020 Document Reviewed: 10/17/2018 [employer] Patient Education 2020 Heidi Shaulis. Follow Up Care 11/08/2022 13:19:49 With:CIERRA ZHU PA-C, URL Address: [facility] [address] [facility] [place] [address] When:1 week Comments:1 wk follow up PFPT #5 [facility] [place] 03-14-2023 History of Present illness Narrative* Donato Bishop MD - 12/26/2022 10:20 AM EDT HISTORY AND PHYSICAL [facility] Chief Complaint: inguinal hernia HPI: Yoni Ramirez is a 77 year old male with a history of arthritis, BPH, gout, HTN, hypercholesteremia, prostate cancer (surgery and radiation treatment), diverticulosis, urinary incontinence, whopresents for evaluation of an inguinal hernia. He has a history of open left inguinal hernia in 2014. He started to notice recurrent bulging in the left groin a few years ago that has slowly grown since. He denies any significant pain or discomfort associated with this. He underwent CT and ultrasound imaging in October that noted a large left inguinal hernia containing the sigmoid colon as well as a 3 cm area that could represent diverticulitis or fat necrosis. He subsequently underwent MRI imaging of the pelvis on 12/06 and this questionable area appears to be fat necrosis or potentially cordlipoma. This does not look concerning for recurrent prostate cancer. He denies any obstructive episodes or acute incarceration events. Relevant previous operations include: 06/20/2018: Open Radical retropubic prostatectomy w/ bilateral pelvic lymphadenectomy (Radha Whitten) 1994 - Umbilical hernia @ [facility] 2014 - Open left inguinal hernia @ [facility] No history of Psychiatric Disorders or Opioid Use Independent Unknown Unknown Hypertension N/A PAST MEDICAL HISTORY Diagnosis Date Arthritis BPH (benign prostatic hyperplasia) Gout HTN (hypertension) Hypercholesteremia Incontinence of urine Kidney stones Prostate cancer (HCC) Renal cyst Rising PSA following treatment for malignant neoplasm of prostate PAST SURGICAL HISTORY Procedure Laterality Date COLONOSCOPY HERNIA REPAIR HX umbilical and Left Inguinal RADICAL PROSTATECTOMY TONSILLECTOMY HX US BIOPSY PROSTATE Social History Tobacco Use Smoking status: Never Smokeless tobacco: Never Substance Use Topics Alcohol use: Not Currently Drug use: Never Additional social history not relevant to the patient's HPI FAMILY HISTORY Problem Relation Age of Onset Lung Cancer Mother Lung Cancer Father Additional family history not relevant to the patient's HPI ALLERGIES No Known Allergies Current Outpatient Medications Medication Sig Dispense Refill carvedilol (COREG) 12.5 mg tablet 6.25 mg twice daily with meals. aspirin, enteric coated (ASPIRIN, ENTERIC COATED) 81 mg EC tablet Take 81 mg by mouth once daily. ketoconazole (NIZORAL) 2 % cream Apply to affected area twice daily. (Patient taking differently: Apply to affected area twice daily. As needed) 30 g 1 amLODIPine (NORVASC) 5 mg tablet Take by mouth once daily. lisinopril-hydroCHLOROthiazide (PRINZIDE, ZESTORETIC) 20-25 mg per tablet Take 1 tablet by mouth once daily. lisinopril (PRINIVIL) 10 mg tablet Take 10 mg by mouth once daily. atorvastatin (LIPITOR) 20 mg tablet Take 20 mg by mouth once daily. allopurinol (ZYLOPRIM) 300 mg tablet Take 300 mg by mouth once daily. leuprolide, 6 month, (LUPRON DEPOT, 6 MONTH,) sykt IM syringe kit Inject intramuscularly as directed. (Patient not taking: Reported on 12/26/2022) No current facility-administered medications for this visit. Review of Systems: General: No fevers, chills, weight gain/loss HEENT: No recent changes in vision, hearing, taste, or smell. Hematologic/Lymphatic: No lymphadenopathy. No history of easy bruising or bleeding. Pulmonary: No cough, wheeze, or shortness of breath. Cardiac: No heart palpitation or cardiac chest pain. Abdomen: See above : Some urinary incontinence. Musculoskeletal: No new muscle or joint aches/pains. Neurologic: No numbness or tingling. Dermatologic: No rashes or lesions. BP 179/61 Pulse (!) 57 Temp 36.3 C (97.3 F) Resp 19 Ht 177.8 cm (5' 10 ) Wt 110.2 kg (243lb) SpO2 97% BMI 34.87 kg/m Physical Exam: Constitutional: The patient is well-developed, well-nourished, and in no distress. Head: Normocephalic and atraumatic. Eyes: No scleral icterus Neck: Normal range of motion. Cardiovascular: RRR, no murmur Pulmonary/Chest: Non-labored respirations on RA. Clear to auscultation bilaterally Abdominal: Soft, non-distended, and non-tender. Large left inguinal hernia that is reducible when supine. I do not feel bulging on the right with/without valsalva but appreciate a generous cord. Musculoskeletal: Normal range of motion. Neurological: Alert and oriented, GCS 15. Skin: Skin is warm and dry. Psychiatric: Affect and judgment normal. LABS: No results found for: HBA1C Imaging: Reviewed with the patient 11/06/22 - CT Chest/Abd/Pel: IMPRESSION: 1. No pulmonary embolism 2. No pulmonary infiltrates or suspicious findings within the chest. 3. Nonobstructing left nephrolithiasis. 4. Large left inguinal hernia with fat extending into scrotum and along the loop of sigmoid colon extending to near the level of the scrotum. 3 cm area of density within the inguinal hernia suspicious for acute diverticulitis. This could also represent soft tissue scarring from prior hernia repair. 5. Large fat filled right inguinal hernia without strangulation or bowel involvement. 6. No appreciable bone metastasis. 12/06/22: MRI Pelvis: 1. No enhancing scrotal lesions. 2. 3.2 x 1.8 x 3.5 cm fatty lesion seen in the left scrotal sac laterally. Could reflect area of fat necrosis or spermatic cord lipoma. Could correlate with lesionseen on prior ultrasound. Recommend continued ultrasound follow-up to document stability. 3. Large inguinal hernias bilaterally, left greater than right with fat extending into the scrotum.Left hernia contains a loop of colon Assessment: Yoni Ramirez is a 77 year old male with a history of HTN and prostate cancer s/p open prostatectomy who presents with a large recurrent left inguinal hernia containing the sigmoid colon and what appears to be an area of fat necrosis or cord lipoma. Neither the patient or I feel a bulge on the right and he has no symptoms on this side so I suspect that the CT and MRI findings simply represent a large cord lipoma, and not a inguinal hernia so at this point, I would not recommend any intervention on the right. For the left, he has already had an open left repair as well as a prior preperitoneal pelvic operation so I think that the best approach would be a redo, open left inguinal herniarepair. The risks, benefits, and alternatives to open inguinal hernia repair were discussed with the patient including the risk of bleeding, infection, damage to the vas deferens or spermatic vessels, nerve injury, chronic groin pain, and recurrence. All patient questions were answered to their satisfaction. Written consent was obtained and can be found under the Consent tab in Epic. Plan: - Consented for open left inguinal hernia repair with mesh - Records request submitted so that I can review the prior left inguinal hernia repair operative report. Donato Bishop MD 01/02/23, 5:14 PM General Surgery [facility] * Kate Funez RN - 12/26/2022 10:18 AM EDT What is the reason for your visit today? Inguinal hernia Who is your referring physician? Dr. Hector Are you having poor oral intake? NO Have you had unintentional weight loss of 15 lbs/7 Kg in the last 3-6 months? NO Bowels: regular 2 x per day Wound: n/a Temperature: No Drains: No documented in this encounterL[facility] Hospital Discharge instructions Patient Education 12/14/2022 09:24:29 Kegel Exercises Kegel Exercises Kegel exercises can help strengthen your pelvic floor muscles. The pelvic floor is a group of muscles that support your rectum, small intestine, and bladder. In females, pelvic floor muscles also help support the womb (uterus). These muscles help you control the flow of urine and stool. Kegel exercises are painless and simple, and they do not require any equipment. Your provider may suggest Kegel exercises to: Improve bladder and bowel control. Improve sexual response. Improve weak pelvic floor muscles after surgery to remove the uterus (hysterectomy) or (females). Improve weak pelvic floor muscles after prostate gland removal or surgery (males). Kegel exercises involve squeezing your pelvic floor muscles, which are the same muscles you squeezewhen you try to stop the flow of urine or keep from passing gas. The exercises can be done while sitting, standing, or lying down, but it is best to vary your position. Exercises How to do Kegel exercises: 1.Squeeze your pelvic floor muscles tight. You should feel a tight lift in your rectal area. If youare a female, you should also feel a tightness in your vaginal area. Keep your stomach, buttocks, and legs relaxed. 2.Hold the muscles tight for up to 10 seconds. 3.Breathe normally. 4.Relax your muscles. 5.Repeat as told by your health care provider. Repeat this exercise daily as told by your health care provider. Continue to do this exercise for at least 4 6 weeks, or for as long as told by your health care provider. You may be referred to a physical therapist who can help you learn more about how to do Kegel exercises. Depending on your condition, your health care provider may recommend: Varying how long you squeeze your muscles. Doing several sets of exercises every day. Doing exercises for several weeks. Making Kegel exercises a part of your regular exercise routine. This information is not intended to replace advice given to you by your health care provider. Make sure you discuss any questions you have with your health care provider. Document Released: 09/17/2013 Document Revised: 05/21/2019 Document Reviewed: 05/21/2019 [employer] Patient Education 2020 Heidi Shaulis. Follow Up Care 11/08/2022 13:16:38 With:YESSENIA ZHU, CIERRA Roche, URL Address: [address] [place] [address]. [place] [address] When: Unknown [facility] 02-28-2023 History of Present illness Narrative* G Raz Hernandez MD - 12/12/2022 1:01 PM EST Radiation Oncology - Follow Up Note PATIENT NAME: Yoni Ramirez PATIENT DIAGNOSIS: Prostate adenocarcinoma, 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 INTERVAL HISTORY: Patient here for further follow-up regarding palpable lump left scrotal area. Patient had seen Dr. Whitten. Seeing patient shortly after this for routine follow-up recommended further imaging with MRI as patient was unclear what he wanted to do. Denies any new problems. MRI Pelvis 12/04/22: 1. No enhancing scrotal lesions. 2. 3.2 x 1.8 x 3.5 cm fatty lesion seen in the left scrotal sac laterally. Could reflect area of fat necrosis or spermatic cord lipoma. Could correlate with lesion seen on prior ultrasound. Recommend continued ultrasound follow-up to document stability. 3. Large inguinal hernias bilaterally, left greater than right with fat extending into the scrotum. Left hernia contains a loop of colon He underwent ultrasound 08/05/2022 with small left hydrocele no other significant finding. He underwent repeat ultrasound on 10/11/2022 with the finding of a solid vascular appearing mass inthe left hemiscrotum measuring 2.6 x 2.9 x 1.6 cm. This is noted to be separate from the testicle. Small varicocele no hydrocele on the left. Further work-up including CT chest abdomen and pelvis on 11/06/2022 demonstrating: No suspicious chest findings. Nonobstructing left nephrolithiasis. Large left inguinal hernia with fat extending into the scrotum and along with the sigmoid colon extending to near the level of the scrotum, 3 cm area of density within the inguinal hernia suspicious for acute diverticulitis. This could also represent scarring from prior hernia repair. Large fat filled right inguinal hernia withoutstrangulation or bowel involvement. No suspicious bony changes. Patient has seen Dr. Whitten the other day and underwent laboratory evaluation without remarkable findings. He is here today for routine follow-up. 07/13/22: Doing well. Is more active. Walking 1 to 2 miles daily starting to lose weight as a result. Feeling better. 03/30/22:Overall doing well. Still having urinary incontinence though mostly with increased activity. Having some intermittent diarrhea but mostly increased frequency and looser stools without blood or other issues. 12/21/21:Doing well. Overall urinary function has improved. Less incontinence. Incontinence he is having is mostly stress related. Recent colonoscopy without significant findings. 08/10/21:Doing well. Significant improvement in bladder and bowel frequency. Still with moderate fatigue. PSA HISTORY: PSA (ng/mL) Date Value 11/02/2022 <0.02 07/06/2022 <0.02 03/23/2022 <0.02 12/14/2021 <0.02 09/15/2021 <0.1 08/03/2021 <0.03 Initial post prostatectomy PSA 0.23 on 07/17/2018. Patient's PSA continued to rise: 0.48 on 04/22/2019 0.87 on 09/29/2019 1.43 on 03/19/2020 1.62 on 07/19/2020 2.05 on 09/27/2020 ALLERGIES No Known Allergies carvedilol (COREG) 12.5 mg tablet twice daily with meals. aspirin, enteric coated (ASPIRIN, ENTERIC COATED) 81 mg EC tablet Take 81 mg by mouth once daily. ketoconazole (NIZORAL) 2 % cream Apply to affected area twice daily. leuprolide, 6 month, (LUPRON DEPOT, 6 MONTH,) sykt IM syringe kit Inject intramuscularly as directed. amLODIPine (NORVASC) 5 mg tablet Take by mouth once daily. lisinopril-hydroCHLOROthiazide (PRINZIDE, ZESTORETIC) 20-25 mg per tablet Take 1 tablet by mouth once daily. lisinopril (PRINIVIL) 10 mg tablet Take 10 mg by mouth once daily. atorvastatin (LIPITOR) 20 mg tablet Take 20 mg by mouth once daily. allopurinol (ZYLOPRIM) 300 mg tablet Take 300 mg by mouth once daily. REVIEW OF SYSTEMS: D/N = 4/1-2 Hematuria: none Dysuria: none Incontinence: 2 pads per day Urgency: mild Catheter use: none Medications to aid urination: no - Total AUA Score: 5 Bowel movement frequency: 1/day Bowel movement quality: variable: . Blood per rectum: none Androgen deprivation: Lizethelizabeth 10/21/2020 x1 PHYSICAL EXAM: 03/30/2022 Weight 113.9 kg (251 lb 3.2 oz) Height 179.1 cm (5' 10.51 ) BSA 2.38 BMI 35.52 Temp 36.6 C (97.8 F) Pulse 57 (A) Resp 16 BP 153/76 KPS: 100 General appearance: Alert and oriented. No acute distress. Abdomen: No tenderness or masses notable Rectal exam def : Descended testicles bilaterally. Mid lateral left testicle 2 cm firm mildly tender area. No overlying skin changes. Extremities: No deformities, edema, skin discoloration, clubbing or cyanosis. Lymph Nodes: No cervical lymphadenopathy, No supraclavicular lymphadenopathy, No axillary lymphadenopathy. No inguinal adenopathy Skin: Skin color, texture, turgor normal, no suspicious rashes or lesions. 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 1 Prostate cancer. Doing well. PSA remains undetectable. 2. Mass within left scrotum, has vascular flow on ultrasound. MRI suggesting mass of fatty origin no clear indication of neoplasm however still concerning regarding ultrasonic findings. Discussed again with Dr. Whitten's recommendation is for follow-up with general surgeon specializing in recurrent hernia related issues. I do feel further follow-up with general surgeon specialist make sense and reinforce this to the patient. Otherwise we will plan to see patient back on for follow-up regarding his prior pelvic radiation. Signed by: Aaliyah Hernandez MD cc: Bro Chavez (Aj) [address] [place] [address] Dr. Whitten documented in this encounterL[facility] Nurse Note* Melanie Pierre RN - 12/06/2022 10:05 AM EST Radiology Service Progress Note DATE OF SERVICE: December 06, 2022 TIME: 9:07 AM PATIENT WEIGHT: 246 LBS PATIENT IDENTITY VERIFICATION COMPLETED USING TWO (2) STANDARD IDENTIFIERS: Name and Date of confirmed by patient verbally. FALL SCREENING: Has the patient had 2 falls in the last year or 1 fall with injury or currently using an Ambulatory Assistive Device (Walker, Cane, Wheelchair, Crutches, etc.)? No PATIENT GENDER DATA: Male ALLERGIES: Reviewed and unchanged CONTRAST ALLERGY: No EXAM: MRI - CONTRAST TYPE: GROUP II IV SITE: Ambulatory: A peripheral IV was started in the Right forearm with a #22g diffusics.. and ASaline lock was inserted per protocol IV SITE APPEARANCE: Clean,Dry and Intact SIGNATURE: Melanie Pierre RN PATIENT NAME: Yoni Ramirez DATE: December 06, 2022 TIME: 9:07 AM documented in this encounterLake[facility]02-20-2023 Miscellaneous Notes* [facility] - ROSY Campoverde - 12/04/2022 3:40 PM EST Radiology Service Progress Note PATIENT NAME: Yoni Ramirez DATE OF SERVICE: December 04, 2022 TIME: 4:33 PM PATIENT IDENTITY VERIFICATION COMPLETED USING TWO (2) IDENTIFIERS: Name and Date of confirmedby patient verbally and Name and Date of confirmed by identification band. FALL SCREENING: Has the patient had 2 falls in the last year or 1 fall with injury or currently using an Ambulatory Assistive Device (Walker, Cane, Wheelchair, Crutches, etc.)? No PATIENT GENDER DATA: Male PATIENT RELEVANT IMPLANT DATA REVIEWED: Yes RADIOLOGY DEPARTMENT: MR; Exam(s) Completed: Body: Pelvis PERIPHERAL IV DATA: Site assessment: Clean,Dry and Intact, Site disposition Discontinued SIGNED BY: Kelly Benavides medical accounting clerk December 04, 2022 4:33 PM documented in this encounter[address]20-2023 Nurse Note* Sima Craig RN - 12/04/2022 3:40 PM EST Radiology Service Progress Note DATE OF SERVICE: December 04, 2022 TIME: 2:36 PM PATIENT WEIGHT: 246LBS PATIENT IDENTITY VERIFICATION COMPLETED USING TWO (2) STANDARD IDENTIFIERS: Name and Date of confirmed by patient verbally and Name and Date of confirmed by identification band. FALL SCREENING: Has the patient had 2 falls in the last year or 1 fall with injury or currently using an Ambulatory Assistive Device (Walker, Cane, Wheelchair, Crutches, etc.)? No PATIENT GENDER DATA: Male ALLERGIES: Reviewed and unchanged CONTRAST ALLERGY: No EXAM: MRI - CONTRAST TYPE: GROUP II IV SITE: Ambulatory: A peripheral IV was started in the Right antecubital site with a Angio cath: 22 gauge. IV SITE APPEARANCE: Clean,Dry and Intact SIGNATURE: Sima Craig RN PATIENT NAME: Yoni Ramirez DATE: December 04, 2022 TIME: 2:36 PM documented in this encounterLake[facility]02-[facility] Hospital Discharge instructions Patient Education 11/30/2022 09:15:44 Kegel Exercises Kegel Exercises Kegel exercises can help strengthen your pelvic floor muscles. The pelvic floor is a group of muscles that support your rectum, small intestine, and bladder. In females, pelvic floor muscles also help support the womb (uterus). These muscles help you control the flow of urine and stool. Kegel exercises are painless and simple, and they do not require any equipment. Your provider may suggest Kegel exercises to: Improve bladder and bowel control. Improve sexual response. Improve weak pelvic floor muscles after surgery to remove the uterus (hysterectomy) or (females). Improve weak pelvic floor muscles after prostate gland removal or surgery (males). Kegel exercises involve squeezing your pelvic floor muscles, which are the same muscles you squeezewhen you try to stop the flow of urine or keep from passing gas. The exercises can be done while sitting, standing, or lying down, but it is best to vary your position. Exercises How to do Kegel exercises: 1.Squeeze your pelvic floor muscles tight. You should feel a tight lift in your rectal area. If youare a female, you should also feel a tightness in your vaginal area. Keep your stomach, buttocks, and legs relaxed. 2.Hold the muscles tight for up to 10 seconds. 3.Breathe normally. 4.Relax your muscles. 5.Repeat as told by your health care provider. Repeat this exercise daily as told by your health care provider. Continue to do this exercise for at least 4 6 weeks, or for as long as told by your health care provider. You may be referred to a physical therapist who can help you learn more about how to do Kegel exercises. Depending on your condition, your health care provider may recommend: Varying how long you squeeze your muscles. Doing several sets of exercises every day. Doing exercises for several weeks. Making Kegel exercises a part of your regular exercise routine. This information is not intended to replace advice given to you by your health care provider. Make sure you discuss any questions you have with your health care provider. Document Released: 09/17/2013 Document Revised: 05/21/2019 Document Reviewed: 05/21/2019 [employer] Patient Education 2020 Heidi Shaulis. Follow Up Care 11/08/2022 13:07:14 With:YESSENIA ZHU, CIERRA Roche, URL Address: [address] [place] [address] When: Unknown [facility] 02-09-2023 Hospital Discharge instructions Patient Education 11/23/2022 09:08:56 Overactive Bladder, Adult Overactive Bladder, Adult Overactive bladder refers to a condition in which a person has a sudden need to pass urine. The person may leak urine if he or she cannot get to the bathroom fast enough (urinary incontinence). A person with this condition may also wake up several times in the night to go to the bathroom. Overactive bladder is associated with poor nerve signals between your bladder and your brain. Your bladder may get the signal to empty before it is full. You may also have very sensitive muscles thatmake your bladder squeeze too soon. These symptoms might interfere with daily work or social activities. What are the causes? This condition may be associated with or caused by: Urinary tract infection. Infection of nearby tissues, such as the prostate. Prostate enlargement. Surgery on the uterus or urethra. Bladder stones, inflammation, or tumors. Drinking too much caffeine or alcohol. Certain medicines, especially medicines that get rid of extra fluid in the body (diuretics). Muscle or nerve weakness, especially from: ?A spinal cord injury. ?Stroke. ?Multiple sclerosis. ?Parkinson's disease. Diabetes. Constipation. What increases the risk? You may be at greater risk for overactive bladder if you: Are an older adult. Smoke. Are going through menopause. Have prostate problems. Have a neurological disease, such as stroke, dementia, Parkinson's disease, or multiple sclerosis (MS). Eat or drink things that irritate the bladder. These include alcohol, spicy food, and caffeine. Are overweight or obese. What are the signs or symptoms? Symptoms of this condition include: Sudden, strong urge to urinate. Leaking urine. Urinating 8 or more times a day. Waking up to urinate 2 or more times a night. How is this diagnosed? Your health care provider may suspect overactive bladder based on your symptoms. He or she will diagnose this condition by: A physical exam and medical history. Blood or urine tests. You might need bladder or urine tests to help determine what is causing your overactive bladder. You might also need to see a health care provider who specializes in urinary tract problems (urologist). How is this treated? Treatment for overactive bladder depends on the cause of your condition and whether it is mild or severe. You can also make lifestyle changes at home. Options include: Bladder training. This may include: ?Learning to control the urge to urinate by following a schedule that directs you to urinate at regular intervals (timed voiding). ?Doing Kegel exercises to strengthen your pelvic floor muscles, which support your bladder. Toning these muscles can help you control urination, even if your bladder muscles are overactive. Special devices. This may include: ?Biofeedback, which uses sensors to help you become aware of your body's signals. ?Electrical stimulation, which uses electrodes placed inside the body (implanted) or outside the body. These electrodes send gentle pulses of electricity to strengthen the nerves or muscles that control the bladder. ?Women may use a plastic device that fits into the vagina and supports the bladder (pessary). Medicines. ?Antibiotics to treat bladder infection. ?Antispasmodics to stop the bladder from releasing urine at the wrong time. ?Tricyclic antidepressants to relax bladder muscles. ?Injections of botulinum toxin type A directly into the bladder tissue to relax bladder muscles. Lifestyle changes. This may include: ?Weight loss. Talk to your health care provider about weight loss methods that would work best for you. ?Diet changes. This may include reducing how much alcohol and caffeine you consume, or drinking fluids at different times of the day. ?Not smoking. Do not use any products that contain nicotine or tobacco, such as cigarettes and e-cigarettes. If you need help quitting, ask your health care provider. Surgery. ?A device may be implanted to help manage the nerve signals that control urination. ?An electrode may be implanted to stimulate electrical signals in the bladder. ?A procedure may be done to change the shape of the bladder. This is done only in very severe cases. Follow these instructions at home: Lifestyle Make any diet or lifestyle changes that are recommended by your health care provider. These may include: ?Drinking less fluid or drinking fluids at different times of the day. ?Cutting down on caffeine or alcohol. ?Doing Kegel exercises. ?Losing weight if needed. ?Eating a healthy and balanced diet to prevent constipation. This may include: ?Eating foods that are high in fiber, such as fresh fruits and vegetables, whole grains, and beans. ?Limiting foods that are high in fat and processed sugars, such as fried and sweet foods. General instructions Take gyjd-wcg-vkudsfy and prescription medicines only as told by your health care provider. If you were prescribed an antibiotic medicine, take it as told by your health care provider. Do notstop taking the antibiotic even if you start to feel better. Use any implants or pessary as told by your health care provider. If needed, wear pads to absorb urine leakage. Keep a journal or log to track how much and when you drink and when you feel the need to urinate. This will help your health care provider monitor your condition. Keep all follow-up visits as told by your health care provider. This is important. Contact a health care provider if: You have a fever. Your symptoms do not get better with treatment. Your pain and discomfort get worse. You have more frequent urges to urinate. Get help right away if: You are not able to control your bladder. Summary Overactive bladder refers to a condition in which a person has a sudden need to pass urine. Several conditions may lead to an overactive bladder. Treatment for overactive bladder depends on the cause and severity of your condition. Follow your health care provider's instructions about lifestyle changes, doing Kegel exercises, keeping a journal, and taking medicines. This information is not intended to replace advice given to you by your health care provider. Make sure you discuss any questions you have with your health care provider. Document Released: 07/28/2010 Document Revised: 01/22/2020 Document Reviewed: 10/17/2018 [employer] Patient Education 2020 Heidi Shaulis. Follow Up Care 11/08/2022 13:06:21 With:CIERRA ZHU PA-C, URL Address: [address] [facility] [address] [phone] When: Unknown [facility] Arsenio [id number] Nurse Note* Debbie Martin RN - 11/09/2022 1:03 PM EST AUA 5. Debbie Martin RN [facility] History of Present illness Narrative* Aaliyah Hernandez MD - 11/09/2022 1:00 PM EST Radiation Oncology - Follow Up Note PATIENT NAME: Yoni Ramirez PATIENT DIAGNOSIS: Prostate adenocarcinoma, 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 INTERVAL HISTORY: Patient had noted swelling of left testicle with some tenderness. He underwent ultrasound 08/05/2022 with small left hydrocele no other significant finding. He underwent repeat ultrasound on 10/11/2022 with the finding of a solid vascular appearing mass inthe left hemiscrotum measuring 2.6 x 2.9 x 1.6 cm. This is noted to be separate from the testicle. Small varicocele no hydrocele on the left. Further work-up including CT chest abdomen and pelvis on 11/06/2022 demonstrating: No suspicious chest findings. Nonobstructing left nephrolithiasis. Large left inguinal hernia with fat extending into the scrotum and along with the sigmoid colon extending to near the level of the scrotum, 3 cm area of density within the inguinal hernia suspicious for acute diverticulitis. This could also represent scarring from prior hernia repair. Large fat filled right inguinal hernia withoutstrangulation or bowel involvement. No suspicious bony changes. Patient has seen Dr. Whitten the other day and underwent laboratory evaluation without remarkable findings. He is here today for routine follow-up. 07/13/22: Doing well. Is more active. Walking 1 to 2 miles daily starting to lose weight as a result. Feeling better. 03/30/22:Overall doing well. Still having urinary incontinence though mostly with increased activity. Having some intermittent diarrhea but mostly increased frequency and looser stools without blood or other issues. 12/21/21:Doing well. Overall urinary function has improved. Less incontinence. Incontinence he is having is mostly stress related. Recent colonoscopy without significant findings. 08/10/21:Doing well. Significant improvement in bladder and bowel frequency. Still with moderate fatigue. PSA HISTORY: PSA (ng/mL) Date Value 11/02/2022 <0.02 07/06/2022 <0.02 03/23/2022 <0.02 12/14/2021 <0.02 09/15/2021 <0.1 08/03/2021 <0.03 Initial post prostatectomy PSA 0.23 on 07/17/2018. Patient's PSA continued to rise: 0.48 on 04/22/2019 0.87 on 09/29/2019 1.43 on 03/19/2020 1.62 on 07/19/2020 2.05 on 09/27/2020 ALLERGIES No Known Allergies carvedilol (COREG) 6.25 mg tablet aspirin, enteric coated (ASPIRIN, ENTERIC COATED) 81 mg EC tablet Take 81 mg by mouth once daily. ketoconazole (NIZORAL) 2 % cream Apply to affected area twice daily. leuprolide, 6 month, (LUPRON DEPOT, 6 MONTH,) sykt IM syringe kit Inject 45 mg intramuscularly as directed. amLODIPine (NORVASC) 5 mg tablet Take by mouth once daily. lisinopril-hydroCHLOROthiazide (PRINZIDE, ZESTORETIC) 20-25 mg per tablet Take 1 tablet by mouth once daily. lisinopril (PRINIVIL) 10 mg tablet Take 10 mg by mouth once daily. atorvastatin (LIPITOR) 20 mg tablet Take 20 mg by mouth once daily. allopurinol (ZYLOPRIM) 300 mg tablet Take 300 mg by mouth once daily. REVIEW OF SYSTEMS: D/N = 4/1-2 Hematuria: none Dysuria: none Incontinence: 2 pads per day Urgency: mild Catheter use: none Medications to aid urination: no - Total AUA Score: 5 Bowel movement frequency: 1/day Bowel movement quality: variable: . Blood per rectum: none Androgen deprivation: Harvinder 10/21/2020 x1 PHYSICAL EXAM: 03/30/2022 Weight 113.9 kg (251 lb 3.2 oz) Height 179.1 cm (5' 10.51 ) BSA 2.38 BMI 35.52 Temp 36.6 C (97.8 F) Pulse 57 (A) Resp 16 BP 153/76 KPS: 100 General appearance: Alert and oriented. No acute distress. Abdomen: No tenderness or masses notable Rectal exam def : Descended testicles bilaterally. Mid lateral left testicle 2 cm firm mildly tender area. No overlying skin changes. Extremities: No deformities, edema, skin discoloration, clubbing or cyanosis. Lymph Nodes: No cervical lymphadenopathy, No supraclavicular lymphadenopathy, No axillary lymphadenopathy. No inguinal adenopathy Skin: Skin color, texture, turgor normal, no suspicious rashes or lesions. 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 1 prostate cancer. Doing well. PSA remains undetectable. 2. Mass within left scrotum, has vascular flow. Question of origin, possible postinflammatory/postinfectious. Certainly possibility of malignancy as well. Given this recommend MRI for further characterization. Will discuss with Dr. Whitten determine appropriate follow-up from that point. Signed by: Aaliyah Hernandez MD cc: Bro Chavez ([place]) [address] [place] [address] Dr. Whitten documented [facility] Hospital Discharge instructions Patient Education 11/08/2022 12:05:39 Urinary Incontinence Urinary Incontinence Urinary incontinence refers to a condition in which a person is unable to control where and when topass urine. A person with this condition will urinate when he or she does not mean to (involuntarily). What are the causes? This condition may be caused by: Medicines. Infections. Constipation. Overactive bladder muscles. Weak bladder muscles. Weak pelvic floor muscles. These muscles provide support for the bladder, intestine, and, in women,the uterus. Enlarged prostate in men. The prostate is a gland near the bladder. When it gets too big, it can pinch the urethra. With the urethra blocked, the bladder can weaken and lose the ability to empty properly. Surgery. Emotional factors, such as anxiety, stress, or post-traumatic stress disorder (PTSD). Pelvic organ prolapse. This happens in women when organs shift out of place and into the vagina. This shift can prevent the bladder and urethra from working properly. What increases the risk? The following factors may make you more likely to develop this condition: Older age. Obesity and physical inactivity. and childbirth. Menopause. Diseases that affect the nerves or spinal cord (neurological diseases). Long-term (chronic) coughing. This can increase pressure on the bladder and pelvic floor muscles. What are the signs or symptoms? Symptoms may vary depending on the type of urinary incontinence you have. They include: A sudden urge to urinate, but passing urine involuntarily before you can get to a bathroom (urge incontinence). Suddenly passing urine with any activity that forces urine to pass, such as coughing, laughing, exercise, or sneezing (stress incontinence). Needing to urinate often, but urinating only a small amount, or constantly dribbling urine (overflow incontinence). Urinating because you cannot get to the bathroom in time due to a physical disability, such as arthritis or injury, or communication and thinking problems, such as Alzheimer disease (functional incontinence). How is this diagnosed? This condition may be diagnosed based on: Your medical history. A physical exam. Tests, such as: ?Urine tests. ?X-rays of your kidney and bladder. ?Ultrasound. ?CT scan. ?Cystoscopy. In this procedure, a health care provider inserts a tube with a light and camera (cystoscope) through the urethra and into the bladder in order to check for problems. ?Urodynamic testing. These tests assess how well the bladder, urethra, and sphincter can store and release urine. There are different types of urodynamic tests, and they vary depending on what the test is measuring. To help diagnose your condition, your health care provider may recommend that you keep a log of when you urinate and how much you urinate. How is this treated? Treatment for this condition depends on the type of incontinence that you have and its cause. Treatment may include: Lifestyle changes, such as: ?Quitting smoking. ?Maintaining a healthy weight. ?Staying active. Try to get 150 minutes of moderate-intensity exercise every week. Ask your health care provider which activities are safe for you. ?Eating a healthy diet. ?Avoid high-fat foods, like fried foods. ?Avoid refined carbohydrates like white bread and white rice. ?Limit how much alcohol and caffeine you drink. ?Increase your fiber intake. Foods such as fresh fruits, vegetables, beans, and whole grains are healthy sources of fiber. Pelvic floor muscle exercises. Bladder training, such as lengthening the amount of time between bathroom breaks, or using the bathroom at regular intervals. Using techniques to suppress bladder urges. This can include distraction techniques or controlled breathing exercises. Medicines to relax the bladder muscles and prevent bladder spasms. Medicines to help slow or prevent the growth of a man's prostate. Botox injections. These can help relax the bladder muscles. Using pulses of electricity to help change bladder reflexes (electrical nerve stimulation). For women, using a medical device assembler to prevent urine leaks. This is a small, tampon-like, disposable device that is inserted into the urethra. Injecting collagen or carbon beads (bulking agents) into the urinary sphincter. These can help thicken tissue and close the bladder opening. Surgery. Follow these instructions at home: Lifestyle Limit alcohol and caffeine. These can fill your bladder quickly and irritate it. Keep yourself clean to help prevent odors and skin damage. Ask your doctor about special skin creams and cleansers that can protect the skin from urine. Consider wearing pads or adult diapers. Make sure to change them regularly, and always change them right after experiencing incontinence. General instructions Take aahl-uvj-iqysddc and prescription medicines only as told by your health care provider. Use the bathroom about every 3 4 hours, even if you do not feel the need to urinate. Try to empty your bladder completely every time. After urinating, wait a minute. Then try to urinate again. Make sure you are in a relaxed position while urinating. If your incontinence is caused by nerve problems, keep a log of the medicines you take and the times you go to the bathroom. Keep all follow-up visits as told by your health care provider. This is important. Contact a health care provider if: You have pain that gets worse. Your incontinence gets worse. Get help right away if: You have a fever or chills. You are unable to urinate. You have redness in your groin area or down your legs. Summary Urinary incontinence refers to a condition in which a person is unable to control where and when topass urine. This condition may be caused by medicines, infection, weak bladder muscles, weak pelvic floor muscles, enlargement of the prostate (in men), or surgery. The following factors increase your risk for developing this condition: older age, obesity, and childbirth, menopause, neurological diseases, and chronic coughing. There are several types of urinary incontinence. They include urge incontinence, stress incontinence, overflow incontinence, and functional incontinence. This condition is usually treated first with lifestyle and behavioral changes, such as quitting smoking, eating a healthier diet, and doing regular pelvic floor exercises. Other treatment options include medicines, bulking agents, medical devices, electrical nerve stimulation, or surgery. This information is not intended to replace advice given to you by your health care provider. Make sure you discuss any questions you have with your health care provider. Document Released: 11/08/2005 Document Revised: 10/11/2018 Document Reviewed: 01/10/2018 [employer] Patient Education 2020 Heidi Shaulis. 11/08/2022 12:05:35 Calorie Counting for Weight Loss Calorie Counting for Weight Loss Calories are units of energy. Your body needs a certain amount of calories from food to keep you going throughout the day. When you eat more calories than your body needs, your body stores the extra calories as fat. When you eat fewer calories than your body needs, your body alvarez fat to get the energy it needs. Calorie counting means keeping track of how many calories you eat and drink each day. Calorie counting can be helpful if you need to lose weight. If you make sure to eat fewer calories than your bodyneeds, you should lose weight. Ask your health care provider what a healthy weight is for you. For calorie counting to work, you will need to eat the right number of calories in a day in order to lose a healthy amount of weight per week. A dietitian can help you determine how many calories youneed in a day and will give you suggestions on how to reach your calorie goal. A healthy amount of weight to lose per week is usually 1 2 lb (0.5 0.9 kg). This usually means thatyour daily calorie intake should be reduced by 500 750 calories. Eating 1,200 1,500 calories per day can help most women lose weight. Eating 1,500 1,800 calories per day can help most men lose weight. What is my plan? My goal is to have calories per day. If I have this many calories per day, I should lose around pounds per week. What do I need to know about calorie counting? In order to meet your daily calorie goal, you will need to: Find out how many calories are in each food you would like to eat. Try to do this before you eat. Decide how much of the food you plan to eat. Write down what you ate and how many calories it had. Doing this is called keeping a food log. To successfully lose weight, it is important to balance calorie counting with a healthy lifestyle that includes regular activity. Aim for 150 minutes of moderate exercise (such as walking) or 75 minutes of vigorous exercise (such as running) each week. Where do I find calorie information? The number of calories in a food can be found on a Nutrition Facts label. If a food does not have aNutrition Facts label, try to look up the calories online or ask your dietitian for help. Remember that calories are listed per serving. If you choose to have more than one serving of a food, you will have to multiply the calories per serving by the amount of servings you plan to eat. Forexample, the label on a package of bread might say that a serving size is 1 slice and that there are 90 calories in a serving. If you eat 1 slice, you will have eaten 90 calories. If you eat 2 slices, you will have eaten 180 calories. How do I keep a food log? Immediately after each meal, record the following information in your food log: What you ate. Don't forget to include toppings, sauces, and other extras on the food. How much you ate. This can be measured in cups, ounces, or number of items. How many calories each food and drink had. The total number of calories in the meal. Keep your food log near you, such as in a small notebook in your pocket, or use a mobile thien or website. Some programs will calculate calories for you and show you how many calories you have left forthe day to meet your goal. What are some calorie counting tips? Use your calories on foods and drinks that will fill you up and not leave you hungry: ?Some examples of foods that fill you up are nuts and nut butters, vegetables, lean proteins, and high-fiber foods like whole grains. High-fiber foods are foods with more than 5 g fiber per serving. ?Drinks such as sodas, specialty coffee drinks, alcohol, and juices have a lot of calories, yet do not fill you up. Eat nutritious foods and avoid empty calories. Empty calories are calories you get from foods or beverages that do not have many vitamins or protein, such as candy, sweets, and soda. It is better to have a nutritious high-calorie food (such as an avocado) than a food with few nutrients (such as a bag of chips). Know how many calories are in the foods you eat most often. This will help you calculate calorie counts faster. Pay attention to calories in drinks. Low-calorie drinks include water and unsweetened drinks. Pay attention to nutrition labels for low fat or fat free foods. These foods sometimes have thesame amount of calories or more calories than the full fat versions. They also often have added sugar, starch, or salt, to make up for flavor that was removed with the fat. Find a way of tracking calories that works for you. Get creative. Try different apps or programs ifwriting down calories does not work for you. What are some portion control tips? Know how many calories are in a serving. This will help you know how many servings of a certain food you can have. Use a measuring cup to measure serving sizes. You could also try weighing out portions on a kitchenscale. With time, you will be able to estimate serving sizes for some foods. Take some time to put servings of different foods on your favorite plates, bowls, and cups so you know what a serving looks like. Try not to eat straight from a bag or box. Doing this can lead to overeating. Put the amount you would like to eat in a cup or on a plate to make sure you are eating the right portion. Use smaller plates, glasses, and bowls to prevent overeating. Try not to multitask (for example, watch TV or use your computer) while eating. If it is time to eat, sit down at a table and enjoy your food. This will help you to know when you are full. It will also help you to be aware of what you are eating and how much you are eating. What are tips for following this plan? Reading food labels Check the calorie count compared to the serving size. The serving size may be smaller than what youare used to eating. Check the source of the calories. Make sure the food you are eating is high in vitamins and proteinand low in saturated and trans fats. Shopping Read nutrition labels while you shop. This will help you make healthy decisions before you decide to purchase your food. Make a grocery list and stick to it. Cooking Try to cook your favorite foods in a healthier way. For example, try baking instead of frying. Use low-fat dairy products. Meal planning Use more fruits and vegetables. Half of your plate should be fruits and vegetables. Include lean proteins like poultry and fish. How do I count calories when eating out? Ask for smaller portion sizes. Consider sharing an entree and sides instead of getting your own entree. If you get your own entree, eat only half. Ask for a box at the beginning of your meal and put the rest of your entree in it so you are not tempted to eat it. If calories are listed on the menu, choose the lower calorie options. Choose dishes that include vegetables, fruits, whole grains, low-fat dairy products, and lean protein. Choose items that are boiled, broiled, grilled, or steamed. Stay away from items that are buttered,battered, fried, or served with cream sauce. Items labeled crispy are usually fried, unless stated otherwise. Choose water, low-fat milk, unsweetened iced tea, or other drinks without added sugar. If you want an alcoholic beverage, choose a lower calorie option such as a glass of wine or light beer. Ask for dressings, sauces, and syrups on the side. These are usually high in calories, so you should limit the amount you eat. If you want a salad, choose a garden salad and ask for grilled meats. Avoid extra toppings like mayers, cheese, or fried items. Ask for the dressing on the side, or ask for olive oil and vinegar or lemon to use as dressing. Estimate how many servings of a food you are given. For example, a serving of cooked rice is cup orabout the size of half a baseball. Knowing serving sizes will help you be aware of how much food you are eating at restaurants. The list below tells you how big or small some common portion sizes arebased on everyday objects: ?1 oz 4 stacked dice. ?3 oz 1 deck of cards. ?1 tsp 1 . ?1 Tbsp a ping-pong ball. ?2 Tbsp 1 ping-pong ball. ? cup baseball. ?1 cup 1 baseball. Summary Calorie counting means keeping track of how many calories you eat and drink each day. If you eat fewer calories than your body needs, you should lose weight. A healthy amount of weight to lose per week is usually 1 2 lb (0.5 0.9 kg). This usually means reducing your daily calorie intake by 500 750 calories. The number of calories in a food can be found on a Nutrition Facts label. If a food does not have aNutrition Facts label, try to look up the calories online or ask your dietitian for help. Use your calories on foods and drinks that will fill you up, and not on foods and drinks that will leave you hungry. Use smaller plates, glasses, and bowls to prevent overeating. This information is not intended to replace advice given to you by your health care provider. Make sure you discuss any questions you have with your health care provider. Document Released: 10/01/2006 Document Revised: 06/20/2019 Document Reviewed: 08/31/2017 [employer] Patient Education 2020 Heidi Shaulis. Follow Up Care 10/04/2022 09:47:52 With:Fish WHARTON, ALANNA Hahn, URO Address: When: Unknown [facility] [place] 12-21-2022 Hospital Discharge instructions Patient Education 10/04/2022 09:11:01 Varicocele Varicocele A varicocele is a swelling of veins in the scrotum. The scrotum is the sac that contains the testicles. Varicoceles can occur on either side of the scrotum, but they are more common on the left side.They occur most often in teenage boys and young men. In most cases, varicoceles are not a serious problem. They are usually small and painless and do not require treatment. Tests may be done to confirm the diagnosis. Treatment may be needed if: A varicocele is large, causes a lot of pain, or causes pain when exercising. Varicoceles are found on both sides of the scrotum. A varicocele causes a decrease in the size of the testicle in a growing adolescent. The person has fertility problems. What are the causes? This condition is the result of valves in the veins not working properly. Valves in the veins help to return blood from the scrotum and testicles to the heart. If these valves do not work well, bloodflows backward and backs up into the veins, which causes the veins to swell. This is similar to what happens when varicose veins form in the leg. What are the signs or symptoms? Most varicoceles do not cause any symptoms. If symptoms do occur, they may include: Swelling on one side of the scrotum. The swelling may be more obvious when you are standing up. A lumpy feeling in the scrotum. A heavy feeling on one side of the scrotum. A dull ache in the scrotum, especially after exercise or prolonged standing or sitting. Slower growth or reduced size of the testicle on the side of the varicocele (in young males). Problems with fathering a child (fertility). This can occur if the testicle does not grow normally or if the condition causes problems with the sperm, such as a low sperm count or sperm that are not able to reach the egg (poor motility). How is this diagnosed? This condition is diagnosed based on: Your medical history. A physical exam. Your health care provider may inspect and feel (palpate) the scrotal area to checkfor swollen or enlarged veins. An ultrasound. This may be done to confirm the diagnosis and to help rule out other causes of the swelling. How is this treated? Treatment is usually not needed for this condition. If you have any pain, your health care providermay prescribe or recommend medicine to help relieve it. You may need regular exams so your health care provider can monitor the varicocele to ensure that it does not cause problems. When further treatment is needed, it may involve one of these options: Varicocelectomy. This is a surgery in which the swollen veins are tied off so that the flow of blood goes to other veins instead. Embolization. In this procedure, a small, thin tube (catheter) is used to place metal coils or other blocking items in the veins. This cuts off the blood flow to the swollen veins. Follow these instructions at home: Take ulrc-zcs-qrkvvai and prescription medicines only as told by your health care provider. Wear supportive underwear. Use an athletic supporter when participating in sports activities. Keep all follow-up visits as told by your health care provider. This is important. Contact a health care provider if: Your pain is increasing. You have redness in the affected area. Your testicle becomes enlarged, swollen, or painful. You have swelling that does not decrease when you are lying down. One of your testicles is smaller than the other. Get help right away if: You develop swelling in your legs. You have difficulty breathing. Summary Varicocele is a condition in which the veins in the scrotum are swollen or enlarged. In most cases, varicoceles do not require treatment. Treatment may be needed if you have pain, have problems with infertility, or have a smaller testicle associated with the varicocele. In some cases, the condition may be treated with a procedure to cut off the flow of blood to the swollen veins. This information is not intended to replace advice given to you by your health care provider. Make sure you discuss any questions you have with your health care provider. Document Released: 01/07/2002 Document Revised: 12/19/2019 Document Reviewed: 12/19/2019 [employer] Patient Education 2020 Heidi Shaulis. Follow Up Care 03/28/2022 09:10:25 With:Fish WHARTON, Radha Tejada, URL, URO Address: [address], [facility] [place] [phone] When: Unknown Comments:schedule scrotal US [facility] 09-29-2022 Nurse Note* Debbie Martin RN - 07/13/2022 1:22 PM EDT AUA 3 Debbie Martin RN [facility] History of Present illness Narrative* Aaliyah Hernandez MD - 07/13/2022 1:15 PM EDT Radiation Oncology - Follow Up Note PATIENT NAME: Yoni Ramirez PATIENT DIAGNOSIS: Prostate adenocarcinoma, 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 INTERVAL HISTORY: Doing well. Is more active. Walking 1 to 2 miles daily starting to lose weight asa result. Feeling better. 03/30/22:Overall doing well. Still having urinary incontinence though mostly with increased activity. Having some intermittent diarrhea but mostly increased frequency and looser stools without blood or other issues. 12/21/21:Doing well. Overall urinary function has improved. Less incontinence. Incontinence he is having is mostly stress related. Recent colonoscopy without significant findings. 08/10/21:Doing well. Significant improvement in bladder and bowel frequency. Still with moderate fatigue. PSA HISTORY: PSA (ng/mL) Date Value 07/06/2022 <0.02 03/23/2022 <0.02 12/14/2021 <0.02 09/15/2021 <0.1 08/03/2021 <0.03 Initial post prostatectomy PSA 0.23 on 07/17/2018. Patient's PSA continued to rise: 0.48 on 04/22/2019 0.87 on 09/29/2019 1.43 on 03/19/2020 1.62 on 07/19/2020 2.05 on 09/27/2020 ALLERGIES No Known Allergies carvedilol (COREG) 6.25 mg tablet aspirin, enteric coated (ADULT LOW DOSE ASPIRIN) 81 mg EC tablet Take 81 mg by mouth once daily. ketoconazole (NIZORAL) 2 % cream Apply to affected area twice daily. leuprolide, 6 month, (LUPRON DEPOT, 6 MONTH,) sykt IM syringe kit Inject 45 mg intramuscularly as directed. amLODIPine (NORVASC) 5 mg tablet Take by mouth once daily. lisinopril-hydroCHLOROthiazide (PRINZIDE, ZESTORETIC) 20-25 mg per tablet Take 1 tablet by mouth once daily. lisinopril (PRINIVIL) 10 mg tablet Take 10 mg by mouth once daily. atorvastatin (LIPITOR) 20 mg tablet Take 20 mg by mouth once daily. allopurinol (ZYLOPRIM) 300 mg tablet Take 300 mg by mouth once daily. REVIEW OF SYSTEMS: D/N = 4/1-2 Hematuria: none Dysuria: none Incontinence: 2 pads per day Urgency: mild Catheter use: none Medications to aid urination: no - Total AUA Score: 3 Bowel movement frequency: 1/day Bowel movement quality: variable: . Blood per rectum: none Androgen deprivation: Eligard 10/21/2020 x1 PHYSICAL EXAM: 03/30/2022 Weight 113.9 kg (251 lb 3.2 oz) Height 179.1 cm (5' 10.51 ) BSA 2.38 BMI 35.52 Temp 36.6 C (97.8 F) Pulse 57 (A) Resp 16 BP 153/76 KPS: 100 General appearance: Alert and oriented. No acute distress. Rectal exam def Extremities: No deformities, edema, skin discoloration, clubbing or cyanosis. Lymph Nodes: No cervical lymphadenopathy, No supraclavicular lymphadenopathy, No axillary lymphadenopathy. Skin: Skin color, texture, turgor normal, no suspicious rashes or lesions. 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 Patient continues to do very well, with undetectable PSA. Plan for follow-up in 4 months with repeat PSA. Signed by: Aaliyah Hernandez MD cc: Bro Chavez ([facility]) [address] [place] [address] documented [facility] History of Present illness Narrative* Aaliyah Hernandez MD - 03/30/2022 2:22 PM EDT Radiation Oncology - Follow Up Note PATIENT NAME: Yoni Ramirez PATIENT DIAGNOSIS: Prostate adenocarcinoma, 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 INTERVAL HISTORY: Overall doing well. Still having urinary incontinence though mostly with increased activity. Having some intermittent diarrhea but mostly increased frequency and looser stools without blood or other issues. 12/21/21:Doing well. Overall urinary function has improved. Less incontinence. Incontinence he is having is mostly stress related. Recent colonoscopy without significant findings. 08/10/21:Doing well. Significant improvement in bladder and bowel frequency. Still with moderate fatigue. PSA HISTORY: PSA (ng/mL) Date Value 03/23/2022 <0.02 12/14/2021 <0.02 09/15/2021 <0.1 08/03/2021 <0.03 Initial post prostatectomy PSA 0.23 on 07/17/2018. Patient's PSA continued to rise: 0.48 on 04/22/2019 0.87 on 09/29/2019 1.43 on 03/19/2020 1.62 on 07/19/2020 2.05 on 09/27/2020 ALLERGIES No Known Allergies carvedilol (COREG) 6.25 mg tablet aspirin, enteric coated (ADULT LOW DOSE ASPIRIN) 81 mg EC tablet Take 81 mg by mouth once daily. ketoconazole (NIZORAL) 2 % cream Apply to affected area twice daily. leuprolide, 6 month, (LUPRON DEPOT, 6 MONTH,) sykt IM syringe kit Inject 45 mg intramuscularly as directed. amLODIPine (NORVASC) 5 mg tablet Take by mouth once daily. lisinopril-hydroCHLOROthiazide (PRINZIDE, ZESTORETIC) 20-25 mg per tablet Take 1 tablet by mouth once daily. lisinopril (PRINIVIL) 10 mg tablet Take 10 mg by mouth once daily. atorvastatin (LIPITOR) 20 mg tablet Take 20 mg by mouth once daily. allopurinol (ZYLOPRIM) 300 mg tablet Take 300 mg by mouth once daily. REVIEW OF SYSTEMS: D/N = 4/1-2 Hematuria: none Dysuria: none Incontinence: 2 pads per day Urgency: mild Catheter use: none Medications to aid urination: no - Total AUA Score: 7 Bowel movement frequency: 1/day Bowel movement quality: variable: . Blood per rectum: none Androgen deprivation: [place]ard 10/21/2020 x1 PHYSICAL EXAM: 03/30/2022 Weight 113.9 kg (251 lb 3.2 oz) Height 179.1 cm (5' 10.51 ) BSA 2.38 BMI 35.52 Temp 36.6 C (97.8 F) Pulse 57 (A) Resp 16 BP 153/76 KPS: 100 General appearance: Alert and oriented. No acute distress. Rectal exam def Extremities: No deformities, edema, skin discoloration, clubbing or cyanosis. Lymph Nodes: No cervical lymphadenopathy, No supraclavicular lymphadenopathy, No axillary lymphadenopathy. Skin: Skin color, texture, turgor normal, no suspicious rashes or lesions. 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 Patient continues to do very well, with undetectable PSA.. . Plan for follow-up in 3 months with repeat PSA. Signed by: Aaliyah Hernandez MD cc: Bro Chavez ([facility]) [address] [place] [address] documented in this encounterL[facility]06[facility] Hospital Discharge instructions Patient Education 03/28/2022 08:51:26 Prostate-Specific Antigen Test Prostate-Specific Antigen Test Why am I having this test? The prostate-specific antigen (PSA) test is a screening test for prostate cancer. It can identify early signs of prostate cancer, which may allow for more effective treatment. Your health care provider may recommend that you have a PSA test starting at age 40 or that you have one earlier or later, depending on your risk factors for prostate cancer. You may also have a PSA test: To monitor treatment of prostate cancer. To check whether prostate cancer has returned after treatment. If you have signs of other conditions that can affect PSA levels, such as: ?An enlarged prostate that is not caused by cancer (benign prostatic hyperplasia, BPH). This condition is very common in older men. ?A prostate infection. What is being tested? This test measures the amount of PSA in your blood. PSA is a protein that is made in the prostate. The prostate naturally produces more PSA as you age, but very high levels may be a sign of a medicalcondition. What kind of sample is taken? A blood sample is required for this test. It is usually collected by inserting a needle into a blood vessel or by sticking a finger with a small needle. Blood for this test should be drawn before having an exam of the prostate. How do I prepare for this test? Do not ejaculate starting 24 hours before your test, or as long as told by your health care provider. Tell a health care provider about: Any allergies you have. All medicines you are taking, including vitamins, herbs, eye drops, creams, and oimn-ymj-oroxjrm medicines. This also includes: ?Medicines to assist with hair growth, such as finasteride. ?Any recent exposure to a medicine called diethylstilbestrol. Any blood disorders you have. Any recent procedures you have had, especially any procedures involving the prostate or rectum. Any medical conditions you have. Any recent urinary tract infections (UTIs) you have had. How are the results reported? Your test results will be reported as a value that indicates how much PSA is in your blood. This will be given as nanograms of PSA per milliliter of blood (ng/mL). Your health care provider will compare your results to normal ranges that were established after testing a large group of people (reference ranges). Reference ranges may vary among labs and hospitals. PSA levels vary from person to person and generally increase with age. Because of this variation, there is no single PSA value that is considered normal for everyone. Instead, PSA reference ranges are used to describe whether your PSA levels are considered low or high (elevated). Common reference ranges are: Low: 0 2.5 ng/mL. Slightly to moderately elevated: 2.6 10.0 ng/mL. Moderately elevated: 10.0 19.9 ng/mL. Significantly elevated: 20 ng/mL or greater. Sometimes, the test results may report that a condition is present when it is not present (false-positive result). What do the results mean? A test result that is higher than 4 ng/mL may mean that you are at an increased risk for prostate cancer. However, a PSA test by itself is not enough to diagnose prostate cancer. High PSA levels may also be caused by the natural aging process, prostate infection, or BPH. PSA screening cannot tell you if your PSA is high due to cancer or a different cause. A prostate biopsy is the only way to diagnose prostate cancer. A risk of having the PSA test is diagnosing and treating prostate cancer that would never have caused any symptoms or problems (overdiagnosis and overtreatment). Talk with your health care provider about what your results mean. Questions to ask your health care provider Ask your health care provider, or the department that is doing the test: When will my results be ready? How will I get my results? What are my treatment options? What other tests do I need? What are my next steps? Summary The prostate-specific antigen (PSA) test is a screening test for prostate cancer. Your health care provider may recommend that you have a PSA test starting at age 40 or that you have one earlier or later, depending on your risk factors for prostate cancer. A test result that is higher than 4 ng/mL may mean that you are at an increased risk for prostate cancer. However, elevated levels can be caused by a number of conditions other than prostate cancer. Talk with your health care provider about what your results mean. This information is not intended to replace advice given to you by your health care provider. Make sure you discuss any questions you have with your health care provider. Document Released: 11/03/2005 Document Revised: 09/13/2018 Document Reviewed: 07/08/2018 [employer] Patient Education 2020 Heidi Shaulis. Follow Up Care 09/27/2021 10:26:46 With:Tano Bernardo MD, Sushant Morel, URO Address: [facility] [address], [place] [address]- When:Within 6 Month(s) [facility] evaluation + Plan note Future Appointments Appointment Date:10/03/2022 08:00:00 AM Scheduled Provider:Sushant Freedman Jr., MD Location:[facility] Appointment Type:URO Office Visit [facility] evaluation + Plan note Future Appointments Appointment Date:01/03/2023 08:00:00 AM Scheduled Provider:Radha Whitten MD Location:[facility] Appointment Type:URO Office Visit [facility] evaluation + Plan note Future Appointments Appointment Date:11/23/2022 09:00:00 AM Scheduled Provider:CIERRA ZHU PA-C Location[facility] Appointment Type:URO Procedure 30 min Appointment Date:11/30/2022 09:00:00 AM Scheduled Provider:CIERRA ZHU PA-C Location:[facility] [place] Appointment Type:URO Procedure 30 min Appointment Date:12/07/2022 10:30:00 AM Scheduled Provider:CIERRA ZHU PA-C Location:[facility] [place] Appointment Type:URO Procedure 30 min Appointment Date:12/14/2022 09:00:00 AM Scheduled Provider:CIERRA ZHU PA-C Location:[facility] [place] Appointment Type:URO Procedure 30 min Appointment Date:12/28/2022 09:00:00 AM Scheduled Provider:CIERRA ZHU PA-C Location:[facility] [place] Appointment Type:URO Procedure 30 min Appointment Date:01/11/2023 09:00:00 AM Scheduled Provider:CIERRA ZHU PA-C Location:[facility] [place] Appointment Type:URO Procedure 30 min Appointment Date:01/17/2023 08:45:00 AM Scheduled Provider:[facility] evaluation + Plan note Future Appointments Appointment Date:11/30/2022 09:00:00 AM Scheduled Provider:CIERRA ZHU PA-C [facility] Type:[facility] Procedure 30 min Appointment Date:12/07/2022 10:30:00 AM Scheduled Provider:CIERRA ZHU PA-C Location:[facility] [place] Appointment Type:URO Procedure 30 min Appointment Date:12/14/2022 09:00:00 AM Scheduled Provider:CIERRA ZHU PA-C Location:[facility] [place] Appointment Type:URO Procedure 30 min Appointment Date:12/28/2022 09:00:00 AM Scheduled Provider:CIERRA ZHU PA-C Location:[facility] [place] Appointment Type:URO Procedure 30 min Appointment Date:01/11/2023 09:00:00 AM Scheduled Provider:CIERRA ZHU PA-C Location:[facility] Appointment Type:URO Procedure 30 min Appointment Date:01/17/2023 08:45:00 AM Scheduled Provider:Radha Whitten MD Location:[facility] Appointment Type:URO Office Visit [facility] Evaluation + Plan note Future Appointments Appointment Date:12/07/2022 10:30:00 AM Scheduled Provider:CIERRA ZHU PA-C [facility] Type:[facility]O Procedure 30 min Appointment Date:12/14/2022 09:00:00 AM Scheduled Provider:CIERRA ZHU PA-C Location:[facility] [place] Appointment Type:URO Procedure 30 min Appointment Date:12/28/2022 09:00:00 AM Scheduled Provider:CIERRA ZHU PA-C Location:[facility] [place] Appointment Type:URO Procedure 30 min Appointment Date:01/11/2023 09:00:00 AM Scheduled Provider:CIERRA ZHU PA-C Location:[facility] Appointment Type:URO Procedure 30 min Appointment Date:01/17/2023 08:45:00 AM Scheduled Provider:Radha Whitten MD Location:[facility] Appointment Type:URO Office Visit [facility] Evaluation + Plan note Future Appointments Appointment Date:12/28/2022 09:00:00 AM Scheduled Provider:CIERRA ZHU PA-C [facility] App[facility] Type:URO Procedure 30 min Appointment Date:01/11/2023 09:00:00 AM Scheduled Provider:CIERRA ZHU PA-C Location:[facility] Appointment Type:URO Procedure 30 min Appointment Date:01/24/2023 08:30:00 AM Scheduled Provider:CIERRA ZHU PA-C Location:[facility] Appointment Type:URO Procedure 30 min Appointment Date:02/02/2023 09:00:00 AM Scheduled Provider:Radha Whitten MD Location:[facility] Appointment Type:URO Office Visit [facility] Evaluation + Plan note Future Appointments Appointment Date:01/11/2023 09:00:00 AM Scheduled Provider:CIERRA ZHU PA-C Location:[facility] Appointment Type:URO Procedure 30 min Appointment Date:01/24/2023 08:30:00 AM Scheduled Provider:CIERRA ZHU PA-C Location:[facility] Appointment Type:URO Procedure 30 min Appointment Date:02/02/2023 09:00:00 AM Scheduled Provider:Radha Whitten MD Location:[facility] Appointment Type:URO Office Visit [facility] Evaluation + Plan note Future Appointments Appointment Date:01/24/2023 08:30:00 AM Scheduled Provider:CIERRA ZHU PA-C Location:[facility] Appointment Type:URO Procedure 30 min Appointment Date:02/02/2023 09:00:00 AM Scheduled Provider:Radha Whitten MD Location:[facility] Appointment Type:URO Office Visit [facility] [place] Evaluation + Plan note Future Appointments Appointment Date:11/28/2023 10:00:00 AM Scheduled Provider:Radha Whitten MD Location:[facility] Appointment Type:URO Office Visit [facility] evaluation + Plan note Future Appointments Appointment Date:06/04/2024 08:45:00 AM Scheduled Provider:Radha Whitten MD Location:[facility] Appointment Type:URO Office Visit [facility] evaluation + Plan note Future Appointments Appointment Date:12/10/2024 08:45:00 AM Scheduled Provider:Radha Whitten MD Location:[facility] Appointment Type:URO Office Visit [facility] evaluation note* Diagnosis Prostate cancer (HCC)- Primary Malignant neoplasm of prostate [facility] Pro[facility] cancer (HCC)- Primary Malignant neoplasm of prostate [facility] Diagnosis Prostate cancer (HCC)- Primary Malignant neoplasm of prostate Abdominal mass, left lower quadrant Abdominal or pelvic swelling, mass, or lump, left lower quadrant [facility] Diagnosis Prostate cancer (HCC) Malignant neoplasm of prostate Abdominal mass, left lower quadrant Abdominal or pelvic swelling, mass, or lump, left lower quadrant [facility] Diagnosis Malignant neoplasm of prostate (HCC)- Primary Malignant neoplasm of prostate [facility] Diagnosis Recurrent left inguinal hernia- Primary Inguinal hernia without mention of obstruction or gangrene, recurrent unilateral or unspecified Unilateral recurrent inguinal hernia without obstruction or gangrene Inguinal hernia without mention of obstruction or gangrene, recurrent unilateral or unspecified [facility] Diagnosis Obesity, Class I, BMI 30-34.9 Obesity, unspecified Preop examination- Primary Preoperative examination, unspecified Primary hypertension Unspecified essential hypertension Prostate cancer (HCC) Malignant neoplasm of prostate Obesity, Class I, BMI 30-34.9 Obesity, unspecified Obstructive sleep apnea syndrome Obstructive sleep apnea (adult) (pediatric) Unilateral recurrent inguinal hernia without obstruction or gangrene Inguinal hernia without mention of obstruction or gangrene, recurrent unilateral or unspecified documented in this encounter [facility] Other Evaluation note* Diagnosis Malignant neoplasm of prostate (HCC)- Primary Malignant neoplasm of prostate documented in this encounter [facility] note* Diagnosis Malignant neoplasm of prostate (HCC)- Primary Malignant neoplasm of prostate documented in this encounter [facility] note* Diagnosis Onset Date Resolution Status Amaurosis fugax, right eye a cute Hypercholesterolemia acute Hypertension acute MIHIR (obstructive sleep apnea) acute Prostate cancer acute [facility] Work Phone: Evaluation note* Diagnosis Ventral incisional hernia documented in this encounter [facility] note* Diagnosis S/P repair of ventral hernia- Primary Other postprocedural status documented in this encounter [facility] note* Diagnosis Onset Date Resolution Status Anemia acute Hypercholesterolemia acute Hypertension acute MCI (mild cognitive impairment) acute Obesity acute MIHIR (obstructive sleep apnea) acute Prostate cancer acute [facility] Work Phone: Evaluation note* Diagnosis Malignant neoplasm of prostate (HCC)- Primary Malignant neoplasm of prostate documented in this encounter [facility] general Narrative - Reported* Type Description Date Medical History Scrotal mass Medical History Adenocarcinoma of prostate Medical History Obstructive sleep apnea Medical History Hyperlipidemia type II Medical History Essential (primary) hypertension Medical History Muscle contraction headache Medical History Amaurosis fugax of right eye Medical History Ocular migraine Medical History Other specified abdo luz hernia without obstruction or gangrene Medical History Left hip pain Medical History Primary insomnia Medical History Urinary stress incontinence, mal e Medical History Acute idiopathic gout, unspecifi ed site Surgical History UMBILICAL HERNIA REPAIR 1998 Surgical History LEFT INGUINAL 2015 Surgical History COLONOSCOPY Hospitalization History SEE SURGICAL HX [employer] Other History general Narrative - Reported* Type Description Date Medical History Scrotal mass Medical History Adenocarcinoma of prostate Medical History Obstructive sleep apnea Medical History Hyperlipidemia type II Medical History Essential (primary) hypertension Medical History Muscle contraction headache Medical History Amaurosis fugax of right eye Medical History Ocular migraine Medical History Other specified abdo luz hernia without obstruction or gangrene Medical History Left hip pain Medical History Primary insomnia Medical History Urinary stress incontinence, mal e Medical History Acute idiopathic gout, unspecifi ed site Surgical History UMBILICAL HERNIA REPAIR 1997 Surgical History LEFT INGUINAL Hernia 2014 Surgical History COLONOSCOPY Surgical History Left femoral hernia repair 03/03 23 Hospitalization History SEE SURGICAL HX [employer] Other History general Narrative - Reported* Type Description Date Medical History Scrotal mass Medical History Adenocarcinoma of prostate Medical History Obstructive sleep apnea Medical History Hyperlipidemia type II Medical History Essential (primary) hypertension Medical History Muscle contraction headache Medical History Amaurosis fugax of right eye Medical History Ocular migraine Medical History Other specified abdo luz hernia without obstruction or gangrene Medical History Left hip pain Medical History Primary insomnia Medical History Urinary stress incontinence, mal e Medical History Acute idiopathic gout, unspecifi ed site Surgical History UMBILICAL HERNIA REPAIR 1997 Surgical History LEFT INGUINAL Hernia 2014 Surgical History COLONOSCOPY (no f/u recommended by Dr. Guzmán) 2021 Surgical History Left femoral hernia repair 03/03 23 Hospitalization History SEE SURGICAL HX [employer] Other Hospital course Narrative No data available for this section [facility] progress note No data available for this section [facility] Reason for Referral Specialty Diagnoses / Procedures Referred By Britney suarez Referred To Contact MR IMAGING Diagnoses Prostate cancer (HCC) Abdominal mass, left lower quadrant Procedures MRI PELVIS WO/W IVCON MRI PELVIS W/O & W/CONTRAST MATERIAL Aaliyah Hernandez MD [address] [place] [address] [place] [address] Mr Imaging Referral ID Status Reason Start Date Expiration Date Visits Requested Visits Authorized [id number] Authorized Auto-Generat ed Referral 11/09/2022 12/09/2023 1 1 Summary Purpose Family History No Family History Records FoundNo Family History Records Found No data available for this section No data available for this section No Family History Records FoundNo Family History Records Found No data available for this section No Family History Records Found Advance Directives No Advanced Directives Records Found Advance Directive Response Recorded Date/ Time Advance Directives No November 12, 2023 2:29pm Advance Directive Response Recorded Date/ Time Advance Directives No April 09 10:32am Chief Complaint and Reason for Visit Chief Complaint Amb Documentation 4 month follow up Reason for Visit Amaurosis fugax, rig ht eye Hypercholesterolemia Hypertension MIHIR (obstructive sleep apnea) Prostate cancer Chief Complaint 4 month follow up allergy shot Reason for Visit Anemia Hypercholesterolemia Hypertension MCI (mild cognitive impairment) Obesity MIHIR (obstructive sleep apnea) Prostate cancer Additional Source Comments Care Team (unrecognized sect ion and content) Orthopedic Surgeon Relationship Specialty Start Date End Date Bro Chavez, DO [address] [facility] [facility] [place] [address] PCP - General Internal Medicine 05/10/21 Orthopedic Surgeon Relationship Specialty Start Date End Date Bro Chavez, DO [address] [facility] [address] PCP - General Internal Medicine 05/10/21 Orthopedic Surgeon Relationship Specialty Start Date End Date Bro Chavez, DO [address] [facility] [address] PCP - General Internal Medicine 05/10/21 Orthopedic Surgeon Relationship Specialty Start Date End Date Bro Chavez, DO [address] [facility] [facility] [place] [address] PCP - General Internal Medicine 05/10/21 Orthopedic Surgeon Relationship Specialty Start Date End Date Bro Chavez, DO [address] [facility] [place] [place] [address] PCP - General Internal Medicine 05/10/21 Orthopedic Surgeon Relationship Specialty Start Date End Date Bro Chavez, DO [address] [facility] [facility] [place] [address] PCP - General Internal Medicine 05/10/21 Orthopedic Surgeon Relationship Specialty Start Date End Date Bro Chavez, DO [address] [facility] [place] [address] PCP - General Internal Medicine 05/10/21 Orthopedic Surgeon Relationship Specialty Start Date End Date Bro Chavez, DO [address] [facility] [address] PCP - General Internal Medicine 05/10/21 Radha Whitten MD [address] [place] [address] Urology 12/21/22 Orthopedic Surgeon Relationship Specialty Start Date End Date Bro Chavez, DO [address] [facility] [address] PCP - General Internal Medicine 05/10/21 Radha Whitten MD [address] [place] [address] Urology 12/21/22 Orthopedic Surgeon Relationship Specialty Start Date End Date Kathy Bro Roche, DO [address] [facility] [address] PCP - General Internal Medicine 05/10/21 Radha Whitten MD [address] [place] [address] Urology 12/21/22 Orthopedic Surgeon Relationship Specialty Start Date End Date Bro Chavez DO [address] [facility] [address] PCP - General Internal Medicine 05/10/21 Radha Whitten MD [address] [place] [address] Urology 12/21/22 Orthopedic Surgeon Relationship Specialty Start Date End Date Bro Chavez DO [address] [facility] [address] PCP - General Internal Medicine 05/10/21 Radha Whitten MD [address] [place] [address] Urology 12/21/22 Team Status: Active Member Role Status Dates Bro Chavez DO Primary Care Provider Active Team Status: Active Member Role Status Dates Bro Chavez DO Primary Care Provider Active Start: December 12, 2023 SANDRA Baca Attending Provider Active Start : December 12, 2023 Team Status: Active Member Role Status Dates Bro Chavez DO Primary Care Provide r, Attending Provider Active Start: January 30, 2024 Team Status: Inactive Member Role Status Dates Bro Chavez DO Primary Care Provide r, Attending Provider Active Start: February 12, 2024 End: February 12, 2024 Orthopedic Surgeon Relationship Specialty Start Date End Date Bro Chavez DO [address] [place] [address] PCP - General Internal Medicine 05/10/21 Radha Whitten MD [address] [place] [address] Urology 12/21/22 Orthopedic Surgeon Relationship Specialty Start Date End Date Bro Chavez DO [address] [place] [address] PCP - General Internal Medicine 05/10/21 Radha Whitten MD [address] [place] [address] Urology 12/21/22 Orthopedic Surgeon Relationship Specialty Start Date End Date Bro Chavez DO [address] [place] [address] PCP - General Internal Medicine 05/10/21 Radha Whitten MD [address] [place] [address] Urology 12/21/22 Orthopedic Surgeon Relationship Specialty Start Date End Date Bro Chavez DO [address] [place] [address] PCP - General Internal Medicine 05/10/21 Radha Whitten MD [address] [place] [address] Urology 12/21/22 Team Status: Inactive Member Role Status Dates Bro Chavez DO Primary Care Provide r, Attending Provider Active Start: April 09, 2024 End: April 09, 2024 Source Comments (unrecognize d section and content) In the event this informatio n is protected by the Federal Confidentiality of Alcohol and Drug Abuse Patient Records regulations: The Federal rules restrict any use of the information to criminally investigate or prosecute any alcohol or drug abuse patient.[facility] the event this information is protected by the Federal Confidentiality of Alcohol and Drug Abuse Patient Records regulations: The Federal rules restrict any use of the information to criminally investigate or prosecute any alcohol or drug abuse patient.[facility] the event this information is protected by the Federal Confidentiality of Alcohol and Drug Abuse Patient Records regulations: The Federal rules restrict any use of the information to criminally investigate or prosecute any alcohol or drug abuse patient.[facility] Center[facility] the event this information is protected by the Federal Confidentiality of Alcohol and Drug Abuse Patient Records regulations: The Federal rules restrict any use of the information to criminally investigate or prosecute any alcohol or drug abuse patient.[facility] Center[facility] the event this information is protected by the Federal Confidentiality of Alcohol and Drug Abuse Patient Records regulations: The Federal rules restrict any use of the information to criminally investigate or prosecute any alcohol or drug abuse patient.[facility] Center[facility] the event this information is protected by the Federal Confidentiality of Alcohol and Drug Abuse Patient Records regulations: The Federal rules restrict any use of the information to criminally investigate or prosecute any alcohol or drug abuse patient.[facility] Center[facility] the event this information is protected by the Federal Confidentiality of Alcohol and Drug Abuse Patient Records regulations: The Federal rules restrict any use of the information to criminally investigate or prosecute any alcohol or drug abuse patient.[facility] Center[facility] the event this information is protected by the Federal Confidentiality of Alcohol and Drug Abuse Patient Records regulations: The Federal rules restrict any use of the information to criminally investigate or prosecute any alcohol or drug abuse patient.[facility] Center[facility] the event this information is protected by the Federal Confidentiality of Alcohol and Drug Abuse Patient Records regulations: The Federal rules restrict any use of the information to criminally investigate or prosecute any alcohol or drug abuse patient.[facility] Center[facility] the event this information is protected by the Federal Confidentiality of Alcohol and Drug Abuse Patient Records regulations: The Federal rules restrict any use of the information to criminally investigate or prosecute any alcohol or drug abuse patient.[facility] Center[facility] the event this information is protected by the Federal Confidentiality of Alcohol and Drug Abuse Patient Records regulations: The Federal rules restrict any use of the information to criminally investigate or prosecute any alcohol or drug abuse patient.[facility] Center[facility] the event this information is protected by the Federal Confidentiality of Alcohol and Drug Abuse Patient Records regulations: The Federal rules restrict any use of the information to criminally investigate or prosecute any alcohol or drug abuse patient.[facility] CenterIn the event this information is protected by the Federal Confidentiality of Alcohol and Drug Abuse Patient Records regulations: The Federal rules restrict any use of the information to criminally investigate or prosecute any alcohol or drug abuse patient.[facility] CenterIn the event this information is protected by the Federal Confidentiality of Alcohol and Drug Abuse Patient Records regulations: The Federal rules restrict any use of the information to criminally investigate or prosecute any alcohol or drug abuse patient.[facility] CenterIn the event this information is protected by the Federal Confidentiality of Alcohol and Drug Abuse Patient Records regulations: The Federal rules restrict any use of the information to criminally investigate or prosecute any alcohol or drug abuse patient.[facility] CenterIn the event this information is protected by the Federal Confidentiality of Alcohol and Drug Abuse Patient Records regulations: The Federal rules restrict any use of the information to criminally investigate or prosecute any alcohol or drug abuse patient.[facility] CenterIn the event this information is protected by the Federal Confidentiality of Alcohol and Drug Abuse Patient Records regulations: The Federal rules restrict any use of the information to criminally investigate or prosecute any alcohol or drug abuse patient.[facility] Reason for Visit (unrecogniz ed section and content) Reason Comments Prostate Cancer Reason Comments Prostate Cancer Specialty Diagnoses / Procedures Referred By Contac t Referred To Contact MR IMAGING Diagnoses Prostate cancer (HCC) Abdominal mass, left lower quadrant Procedures MRI PELVIS WO/W IVCON MRI PELVIS W/O & W/CONTRAST MATERIAL Aaliyah Hernandez MD [address] [place] [address] [place] [address] Mr Imaging Referral ID Status Reason Start Date Expiration Date V isits Requested Visits Authorized [id number] Closed Auto-Generate d Referral 11/09/2022 12/09/2023 1 1 Reason Comments New Reason Comments Pre-Op Visit Reason Comments Radiology CT Specialty Diagnoses / Procedures Referred By Contac t Referred To Contact CT IMAGING Diagnoses Ventral incisional hernia Procedures CT ABD/PEL WO IVCON CT ABD & PELVIS [place] [address] [place] [address] [place] [address] Referral ID Status Reason Start Date Expiration Date V isits Requested Visits Authorized [id number] Closed Auto-Generate d Referral 02/27/2024 04/18/2024 1 1 Reason Comments Follow Up 1 year (unrecognized sect ion and content) No Status Records FoundNo Status Records FoundNo Status Records FoundNo Status Records FoundNo Status Records Found INFORMATION SOURCE (unrecogn ized section and content) DATE CREATED AUTHOR 02/25/2023 [facility] DATE CREATED AUTHOR AUTHOR'S ORGANIZ ATION 02/28/2023 [facility] DATE CREATED AUTHOR AUTHOR'S ORGANIZ ATION 03/24/2024 [facility] EPIC DATE CREATED AUTHOR AUTHOR'S ORGANIZ ATION 05/26/2024 [facility] DATE CREATED AUTHOR AUTHOR'S ORGANIZ ATION 06/05/2024 [facility] Goals (unrecognized section and content) Goals may be documented in a n alternate section FOR RECORDS PERTAINING TO PATIENTS WHO ARE OR HAVE BEEN ENROLLED IN A CHEMICAL DEPENDENCY/SUBSTANCEABUSE PROGRAM, SOME INFORMATION MAY BE OMITTED. This clinical summary was aggregated from multiple sources. Caution should be exercised in using it in the provision of clinical care. This summary normalizes information from multiple sources, and as a consequence, information in this document may materially change the coding, format and clinical context of patient data. In addition, data may be omitted in some cases. CLINICAL DECISIONS SHOULD BE BASED ON THE PRIMARY CLINICAL RECORDS. [facility]. provides no warranty or guarantee of the accuracy or completeness of information in this document.
[2024-06-27 11:02] LABS: Basophils Percent Auto 0.8 % (0.2-2.0); Eosinophils Absolute Auto 0.1 10^3/uL (0.0-0.7); Eosinophils Percent Auto 2.7 % (0.9-7.0); Hematocrit 40.7 % (42.0-54.0); Hemoglobin 13.9 g/dL (14.0-18.0); Immature Granulocytes Abs Auto 0.01 10^3/uL (0.00-0.03); Immature Granulocytes Pct Auto 0.2 % (0.0-0.5); Lymphocytes Percent Auto 21.7 % (20.5-60.0); Mean Corpuscular HGB Conc 34.2 g/dL (29.9-35.2); Mean Corpuscular Hemoglobin 31.9 pg (25.9-34.0); Mean Corpuscular Volume 93.3 fL (80.0-94.0); Mean Platelet Volume 10.5 fL (9.5-13.5); Monocytes Absolute Auto 0.6 10^3/uL (0.3-0.8); Monocytes Percent Auto 13.1 % (1.7-12.0); Neutrophils Absolute Auto 2.9 10^3/uL (1.4-6.5); Neutrophils Percent Auto 61.5 % (43.0-75.0); Platelet Count 163 10^3/uL (150-450); Red Blood Count 4.36 10^6/uL (4.70-6.10); Red Cell Distribution Width 16.2 % (11.0-15.0); White Blood Count 4.7 10^3/uL (4.0-11.0)
[2024-06-27 11:25] LABS: Alanine Aminotransferase 25 U/L (16-63); Albumin Globulin Ratio 1.1; Albumin Level 3.6 g/dL (3.4-5.0); Alkaline Phosphatase 101 U/L (46-116); Anion Gap 7.8; Aspartate Amino Transferase 16 U/L (15-37); BUN Creatinine Ratio 24.6; Bilirubin Total 0.8 mg/dL (0.2-1.0); Calcium 9.5 mg/dL (8.5-10.1); Carbon Dioxide 31.8 mmol/L (21.0-32.0); Chloride 105 mmol/L (98-107); Estimated GFR (African America >60 (>=60); Estimated GFR (Non-African Ame >60 (>=60); Globulin 3.4 g/dL; Glucose 107 mg/dL (74-106); Potassium 3.6 mmol/L (3.5-5.1); Sodium 141 mmol/L (136-145); Troponin I High Sensitivity 11.2 pg/mL (4.0-76.1)
[2024-06-27] MEDS: NITROGLYCERIN 0.4 MG BOTTLE SL (11:29)
[2024-06-27] MEDS: ASPIRIN 81 MG TAB.CHEW 243 MG PO (11:29)
[2024-06-27] MEDS: ACETAMINOPHEN 325 MG TABLET 650 MG PO (11:51)
--- NOTE | 2024-06-27 12:15 | ED_ITS ---
HPI - Chest Pain General Chief Complaint: Chest Pain Stated Complaint: CHEST PAIN Time Seen by Provider: 06/27/24 10:47 Source: patient Mode of arrival: walk-in Limitations: no limitations History of Present Illness HPI narrative: The patient is a 79-year-old male with history of hypertension hyperlipidemia and never been a smoker of cigarettes, is coming to us with a retrosternal chest pressure that he noticed when he was walking yesterday and it subsided after he rested, he also mentioned that this happened again when he started walking after almost half a mile, the patient mentioned usually he is active he denies any shortness of breath he does not have any active pain at the moment or any pressure It all subsided before he came to the ER The patient denies any history of coronary artery disease he also denies any shortness of breath nausea vomiting or any other concerns Related Data Home Medications ?Medication ?Instructions ?Recorded ?Confirmed allopurinol 300 mg tablet 300 mg PO DAILY 06/27/24 06/27/24 amlodipine 5 mg tablet 5 mg PO DAILY 06/27/24 06/27/24 aspirin 81 mg tablet,delayed 81 mg PO DAILY 06/27/24 06/27/24 release (Adult Aspirin Regimen) atorvastatin 20 mg tablet 20 mg PO DAILY 06/27/24 06/27/24 carvedilol 6.25 mg tablet 6.25 mg PO BID 06/27/24 06/27/24 lisinopril 10 mg tablet 10 mg PO BEDTIME 06/27/24 06/27/24 lisinopril 20 1 tab PO DAILY 06/27/24 06/27/24 mg-hydrochlorothiazide 25 mg tablet Allergies Allergy/AdvReac Type Severity Reaction Status Date / Time No Known Drug Allergies Allergy Verified 06/27/24 10:46 Review of Systems ROS Status of ROS 10 or more systems reviewed and unremark able except as noted in history and below PFSH PFSH Social History Little interest or pleasure in doing things: not at all Feeling down, depressed, or hopeless: not at all Exam Narrative Exam Narrative: Nurses notes and vital signs reviewed and patient is not hypoxic. General: Well-appearing and in no apparent distress. Skin: Warm, dry, no pallor noted. No rash. Head: Normocephalic, atraumatic. Neck: Supple, non-tender. Eye: Pupils are equal, round and EOMI. No scleral icterus. Ears, Nose, Mouth, and Throat: TM are clear, no nasal mucosal hypertrophy. Oral mucosa is moist, no posterior oropharynx erythema, uvula is mid-line Cardiovascular: Regular Rate and Rhythm without murmur, gallop or rub. Respiratory: No accessory muscle use or respiratory distress. Lungs are clear to auscultation, no wheezing, rales or rhonchi Chest Wall: no tenderness Back: No midline thoracic or lumbar vertebral tenderness. No CVA tenderness Musculoskeletal: normal ROM, no calf or popliteal tenderness, no lower extremity edema/swelling GI: Abdomen is soft, non-distended. Normal bowel sounds. No masses appreciated. No tenderness to palpation. No rebound, guarding, or rigidity noted. Neurological: A&O x4. No cranial nerve dysfunction observed. No truncal ataxia. Moves all extremities. Sensation intact. Psychiatric: Cooperative and interactive. Normal mood and affect. Constitutional Vital Signs, click to edit/add: Last Vital Signs Temp 97.8 F 06/27/24 10:43 Pulse 61 06/27/24 10:43 Resp 18 06/27/24 10:43 BP 185/76 H 06/27/24 10:43 Pulse Ox 95 06/27/24 10:43 O2 Del Method Room Air 06/27/24 10:43 Course Vital Signs Vital signs: Vital Signs Temperature 97.8 F 06/27/24 10:43 Pulse Rate 61 06/27/24 10:43 Respiratory Rate 18 06/27/24 10:43 Blood Pressure 185/76 H 06/27/24 10:43 Pulse Oximetry 95 06/27/24 10:43 Oxygen Delivery Method Room Air 06/27/24 10:43 Temperature 97.8 F 06/27/24 10:43 Pulse Rate 61 06/27/24 10:43 Respiratory Rate 18 06/27/24 10:43 Blood Pressure 185/76 H 06/27/24 10:43 Pulse Oximetry 95 06/27/24 10:43 Oxygen Delivery Method Room Air 06/27/24 10:43 MDM - Chest Pain MDM Narrative Medical decision making narrative: The patient EKG is showing sinus rhythm with a heart rate of [address] elevation or depression but there is a right bundle diana block The patient had CBC and chemistry showed no acute pathology Patient presenting with a typical unstable anginal symptoms his case was discussed with in cardiology service and he agrees that the patient will need further troponin trending as well as stress test Patient was also provided with aspirin 243 mg Also provided with 1 dose of nitro to control his blood pressure when arrived as his blood pressure was 180 systolic and right now is 150 systolic Patient case was discussed with and he agreed with above-mentioned plan Lab Data Labs: Lab Results 06/27/24 Range/Units 10:55 WBC 4.7 (4.0-11.0) 10^3/uL RBC 4.36 L (4.70-6.10) 10^6/uL Hgb 13.9 L (14.0-18.0) g/dL Hct 40.7 L (42.0-54.0) % MCV 93.3 (80.0-94.0) fL MCH 31.9 (25.9-34.0) pg MCHC 34.2 (29.9-35.2) g/dL RDW 16.2 H (11.0-15.0) % Plt Count 163 (150-450) 10^3/uL MPV 10.5 (9.5-13.5) fL Neut % (Auto) 61.5 (43.0-75.0) % Lymph % (Auto) 21.7 (20.5-60.0) % [place] % (Auto) 13.1 H (1.7-12.0) % Eos % (Auto) 2.7 (0.9-7.0) % Baso % (Auto) 0.8 (0.2-2.0) % Neut # (Auto) 2.9 (1.4-6.5) 10^3/uL Lymph # (Auto) 1.0 L (1.2-3.8) 10^3/uL [place] # (Auto) 0.6 (0.3-0.8) 10^3/uL Eos # (Auto) 0.1 (0.0-0.7) 10^3/uL Baso # (Auto) 0.0 (0.0-0.1) 10^3/uL Abs Immat Gran (auto) 0.01 (0.00-0.03) 10^3/uL Imm/Tot Granulo (auto) 0.2 (0.0-0.5) % Sodium 141 (136-145) mmol/L Potassium 3.6 (3.5-5.1) mmol/L Chloride 105 (98-107) mmol/L Carbon Dioxide 31.8 (21.0-32.0) mmol/L Anion Gap 7.8 BUN 16.0 (7.0-18.0) mg/dL Creatinine 0.65 L (0.70-1.30) mg/dL Est GFR ( Amer) >60 (>=60) Est GFR (Non-Af Amer) >60 (>=60) BUN/Creatinine Ratio 24.6 Glucose 107 H (74-106) mg/dL Calcium 9.5 (8.5-10.1) mg/dL Total Bilirubin 0.8 (0.2-1.0) mg/dL AST 16 (15-37) U/L ALT 25 (16-63) U/L Alkaline Phosphatase 101 (46-116) U/L Troponin I High Sens 11.2 (4.0-76.1) pg/mL Total Protein 7.0 (6.4-8.2) g/dL Albumin 3.6 (3.4-5.0) g/dL Globulin 3.4 g/dL Albumin/Globulin Ratio 1.1 Discharge Plan Discharge Chief Complaint: Chest Pain Clinical Impression: Angina pectoris, unstable Patient Disposition: Admitted As Inpatient Time of Disposition Decision: 12:10
[2024-06-27 12:51] LABS: Estimated Average Glucose 114 mg/dL; Glycohemoglobin A1C 5.6 % (4.5-6.2)
[2024-06-27 12:54] LABS: Chol HDL Ratio 3.4; Cholesterol 139 mg/dL (<=200); HDL Cholesterol 41 mg/dL (40-60); LDL Cholesterol Calculated 82.6 mg/dL; Triglycerides 77 mg/dL (<=150); VLDL CHOLESTEROL 15.4 mg/dL
--- NOTE | 2024-06-27 13:07 | P.HP_ITS ---
HPI H&P: HPI History of Present Illness Chief complaint: CHEST PAIN, UNSTABLE ANGINA Narrative: 79 y o male with no prior hx of CAD/CHF presented to ED for CP. Patient reports that he walks 2-4 miles daily with his and last night when he went out for a walker, he started to experience midsternal burning chest pain/pressure after walking for half a mile or so. His pain improved as he rested for a while and resolved in 30 minutes or so. He did not have any other symptoms with CP and denies SOB, palpitations, diaphoresis, dizziness. He had similar symptoms earlier today when he went for a walk and had to stop due to chest pain. Patient denies smoking, FHx of premature CAD. He had stress test performed years ago for unclear reason and had an ECHO last year that did not reveal any sig structural abnormality. Patient is currently asymptomatic and has no active complaints to offer. Opioid HPI Opioid Management Most Recent Pain and Opioid Data: Last Pain Scale 1 06/27/24 11:51 Last MAR Pain Assessment 06/27/24 11:51 Last ORT Total Score 0 06/27/24 13:28 Last ORT Risk Category Low Risk 06/27/24 13:28 Review of Systems ROS Status of ROS 10 or more systems reviewed and unremark able except as noted in history and below PFSH PFS Medical History (Updated 06/27/24 @ 14:16 by Shaikh Kiley MD) Inguinal hernia ?K40.90 - Unilateral inguinal hernia, without obstruction or gangrene, not specified as recurrent (ICD-10) Umbilical hernia ?K42.9 - Umbilical hernia without obstruction or gangrene (ICD-10) Gout ?M10.9 - Gout, unspecified (ICD-10) Hyperlipidemia ?E78.5 - Hyperlipidemia, unspecified (ICD-10) History of prostate cancer ?Z85.46 - Personal history of malignant neoplasm of prostate (ICD-10) Hypertension ?I10 - Essential (primary) hypertension (ICD-10) Surgical History (Updated 06/27/24 @ 13:16 by Mariah Watkins RN) Hx of tonsillectomy ?Z90.89 - Acquired absence of other organs (ICD-10) H/O prostatectomy ?Z90.79 - Acquired absence of other genital organ(s) (ICD-10) Family History (Updated 06/27/24 @ 13:17 by Mariah Watkins RN) Mother Family history of CHF (congestive heart failure) Family history of cancer Family history of COPD (chronic obstructive pulmonary disease) Father Family history of CHF (congestive heart failure) Family history of cancer Family history of COPD (chronic obstructive pulmonary disease) Family history of hypertension Social History (Updated 06/27/24 @ 13:18 by Mariah Watkins RN) Within the past year, how often did you have a drink containing alcohol: never Score interpretation: A score less than 4 is consistent with normal alcohol consumption. Smoking status: Never smoker Non-prescribed substance use: denies use Highest level of school completed/degree received: Bachelor's degree Little interest or pleasure in doing things: not at all Feeling down, depressed, or hopeless: not at all Do you think of yourself as: straight/heterosexual Gender Identity: male Meds Home Medications and Allergies Home Medications ?Medication ?Instructions ?Recorded ?Confirmed ?Type allopurinol 300 mg tablet 300 mg PO DAILY 06/27/24 06/27/24 History amlodipine 5 mg tablet 5 mg PO DAILY 06/27/24 06/27/24 History aspirin 81 mg tablet,delayed 81 mg PO DAILY 06/27/24 06/27/24 History release (Adult Aspirin Regimen) atorvastatin 20 mg tablet 20 mg PO DAILY 06/27/24 06/27/24 History carvedilol 6.25 mg tablet 12.5 mg PO BID 06/27/24 06/27/24 History lisinopril 10 mg tablet 10 mg PO BEDTIME 06/27/24 06/27/24 History lisinopril 20 1 tab PO DAILY 06/27/24 06/27/24 History mg-hydrochlorothiazide 25 mg tablet Allergies Allergy/AdvReac Type Severity Reaction Status Date / Time No Known Drug Allergies Allergy Verified 06/27/24 10:46 Exam Constitutional Vital Signs, click to edit/add: Last Vital Signs Temp 97.8 F 06/27/24 10:43 Pulse 61 06/27/24 10:43 Resp 18 06/27/24 10:43 BP 185/76 H 06/27/24 10:43 Pulse Ox 95 06/27/24 10:43 O2 Del Method Room Air 06/27/24 10:43 Documenting provider has reviewed patient's vital signs: yes Common normals: no apparent distress and oriented x3 General appearance: cooperative [facility] Common normals: normocephalic and head/scalp atraumatic Head and scalp: normocephalic and atraumatic Eye Common normals: conjunctivae normal and no scleral icterus Conjunctiva: conjunctiva(e) normal Respiratory Common normals: normal respiratory effort and clear to auscultation bilaterally Effort & inspection: able to speak in complete sentences Auscultation: clear to auscultation bilaterally Cardio Common normals: regular rate, S1 normal heart sound and S2 normal heart sound Rate: regular rate Heart sounds: S1 normal and S2 normal GI Common normals: Normal to inspection, nondistended, normoactive bowel sounds present, soft to palpation, non-tender and no hepatosplenomegaly Palpation: soft and no hepatosplenomegaly Extremity Common normals: no clubbing, cyanosis or edema Neuro Common normals: oriented x3, moves all extremities and no focal motor deficits Psych Common normals: mental status grossly normal, denies hallucinations, denies homicidal ideation and denies suicidal ideation Results Labs Labs: Short CBC 06/27/24 Range/Units 10:55 WBC 4.7 (4.0-11.0) 10^3/uL Hgb 13.9 L (14.0-18.0) g/dL Hct 40.7 L (42.0-54.0) % Plt Count 163 (150-450) 10^3/uL BMP 06/27/24 10:55 Sodium 141 Potassium 3.6 Chloride 105 Carbon Dioxide 31.8 BUN 16.0 Creatinine 0.65 L Glucose 107 H Calcium 9.5 Liver Function 06/27/24 Range/Units 10:55 Total Bilirubin 0.8 (0.2-1.0) mg/dL AST 16 (15-37) U/L ALT 25 (16-63) U/L Alkaline Phosphatase 101 (46-116) U/L Albumin 3.6 (3.4-5.0) g/dL Assessment and Plan Assessment and Plan (1) Chest pain on exertion: Assessment and Plan: Admitted for chest pain, r/o ACS. CP free currently. C/w ASA, statin. Trend troponins, monitor on tele. No need for ECHO as one was done fairly recently. Will need outpatient stress test if ACS ruled out and patient remains CP free as HEART Score is 5. (2) Hypertension: Assessment and Plan: Above goal. Unsure if its poorly controlled as outpatient. resume home medications. IV hydralazine as needed. Qualifiers: Hypertension type: primary hypertension Qualified Code(s): I10 - Essential (primary) hypertension (3) Hyperlipidemia: Assessment and Plan: Lipid panel at goal. On Lipitor. C/w same. Qualifiers: Hyperlipidemia type: unspecified Qualified Code(s): E78.5 - Hyperlipidemia, unspecified
[2024-06-27 14:25] LABS: Troponin I High Sensitivity 13.3 pg/mL (4.0-76.1)
[2024-06-27] MEDS: ENOXAPARIN SODIUM 40 MG/0.4 ML SYRINGE SUBQ (16:27)
[2024-06-27 18:28] LABS: Troponin I High Sensitivity 14.3 pg/mL (4.0-76.1)
[2024-06-27] MEDS: LISINOPRIL 10 MG TABLET PO (21:41)
[2024-06-28] VITALS (11 sets, daily range): BP systolic 159–167; BP diastolic 71–73; PULSE 50–60; TEMP 36.4; O2SAT 92–95
--- NOTE | 2024-06-28 08:31 | P.DS_ITS ---
DS: Providers Provider Date of admission: 06/27/24 13:03 Primary care physician: Bro Guardado DO Attending physician on admission: Shaikh Kiley Discharging clinician: Veronica Castaneda DS: Diagnosis Discharge Diagnosis (1) Chest pain on exertion: (2) Hypertension: Qualifiers: Hypertension type: primary hypertension Qualified Code(s): I10 - Essential (primary) hypertension (3) Hyperlipidemia: Qualifiers: Hyperlipidemia type: unspecified Qualified Code(s): E78.5 - Hyperlipidemia, unspecified (4) Bradycardia: DS: Summary Hospital Course Hospital Course: 79 y o male with no prior hx of CAD/CHF presented to ED for CP. Patient reports that he walks 2-4 miles daily with his and last night when he went out for a walker, he started to experience midsternal burning chest pain/pressure after walking for half a mile or so. His pain improved as he rested for a while and resolved in 30 minutes or so. He did not have any other symptoms with CP and denies SOB, palpitations, diaphoresis. Patient denies smoking, FHx of premature CAD. He had stress test performed years ago for unclear reason and had an ECHO last year that did not reveal any sig structural abnormality. He follows regularly with Dr. Mao Guardado. Patient with history of Gout, HLD, HTN. Patient was placed on telemetry and Troponins were monitored all were negative. CBC and CMP normal range. CXR showed cardiomegaly but no acute processes. At noon, patient's HR went to 30's on Telemetry but was asymptomatic. Patient denies any further episode of chest pain or shortness of breath. A holter monitor was placed prior to discharge for 48 hours. He can follow up with Dr. Guardado to discuss outpatient stress test and further work up of Bradycardia. There was only about 7 seconds of HR in the 30's and at the time of discharge is 50's. Will also have him decrease his Coreg to 6.25mg BID. Monitor BP closely. Return to the ER with any worsening signs or symptoms. Some RBB noted on presenting EKG. Status at Discharge Functional status at discharge: independent ambulation Time Spent with Patient Time attestation: Total time spent providing and/or coordinating discharge services: Time spent: greater than 30 minutes Exam Narrative Exam Narrative: General: Patient is alert, and oriented to person, place and time with normal affect, proper hygiene Skin: no visible rashes, or ulcers Head: atraumatic, acephalic Eyes: PERRLA, no nystagmus present, conjunctiva clear, no scleral icterus Ears: normal Tympanic Membrane, normal gross auditory acuity Nose: symmetric, no discharge, no maxillary or frontal sinus tenderness Mouth/Throat: no erythema, exudate, or tonsillar enlargement, normal dentition Heart: Normal rate and rhythm, no murmurs/rubs/gallops Lungs: no audible wheezes, crackles and normal breath sounds all lung barrera Abdomen: Normal audible bowel sounds, no distension, No palpable masses, no organomegaly, no rebound/guarding/ or rigidity Musculoskeletal: no swelling bilateral lower extremities Neuro: CN II-X grossly intact Constitutional Vital Signs, click to edit/add: Last Vital Signs Temp 97.6 F 06/28/24 05:22 Pulse 54 L 06/28/24 07:56 Resp 18 06/28/24 05:22 BP 167/73 H 06/28/24 05:22 Pulse Ox 92 L 06/28/24 05:22 O2 Del Method Room Air 06/28/24 05:22 DS: Data Data Completed and Pending Labs on day of discharge: Labs from last 24 hours 06/27/24 06/27/24 06/27/24 18:03 13:59 10:55 WBC 4.7 RBC 4.36 L Hgb 13.9 L Hct 40.7 L MCV 93.3 MCH 31.9 MCHC 34.2 RDW 16.2 H Plt Count 163 MPV 10.5 Neut % (Auto) 61.5 Lymph % (Auto) 21.7 [place] % (Auto) 13.1 H Eos % (Auto) 2.7 Baso % (Auto) 0.8 Neut # (Auto) 2.9 Lymph # (Auto) 1.0 L [place] # (Auto) 0.6 Eos # (Auto) 0.1 Baso # (Auto) 0.0 Abs Immat Gran (auto) 0.01 Imm/Tot Granulo (auto) 0.2 Sodium 141 Potassium 3.6 Chloride 105 Carbon Dioxide 31.8 Anion Gap 7.8 BUN 16.0 Creatinine 0.65 L Est GFR ( Amer) >60 Est GFR (Non-Af Amer) >60 BUN/Creatinine Ratio 24.6 Glucose 107 H Estimat Average Glucose 114 Hemoglobin A1c 5.6 Calcium 9.5 Total Bilirubin 0.8 AST 16 ALT 25 Alkaline Phosphatase 101 Troponin I High Sens 14.3 13.3 11.2 Total Protein 7.0 Albumin 3.6 Globulin 3.4 Albumin/Globulin Ratio 1.1 Triglycerides 77 Cholesterol 139 LDL Cholesterol, Calc 82.6 VLDL Cholesterol 15.4 HDL Cholesterol 41 Cholesterol/HDL Ratio 3.4 Discharge Plan Discharge Disposition: Home, Self-Care Discharge Medications: New carvedilol 6.25 mg Tablet 6.25 mg PO BID 7 Days Qty: 14 0RF Continued allopurinol 300 mg tablet 300 mg PO DAILY amlodipine 5 mg tablet 5 mg PO DAILY atorvastatin 20 mg tablet 20 mg PO DAILY lisinopril 10 mg tablet 10 mg PO BEDTIME lisinopril-hydrochlorothiazide 20-25 mg tablet 1 tab PO DAILY aspirin [Adult Aspirin Regimen] 81 mg tablet,delayed release (DR/EC) 81 mg PO DAILY Discontinued carvedilol 6.25 mg tablet 12.5 mg PO BID Activity: increase activity as tolerated Diet: advance to your usual diet Print Language: Iranian Forms: Portal Instructions Follow Up Appointments: Please call Dr. Guardado's office sunday for follow up appointment next week. Discharge location: Home with 48 hour Holter monitor
[2024-06-28 09:00] LABS: Basophils Percent Auto 0.4 % (0.2-2.0); Eosinophils Absolute Auto 0.1 10^3/uL (0.0-0.7); Eosinophils Percent Auto 1.8 % (0.9-7.0); Hemoglobin 14.2 g/dL (14.0-18.0); Immature Granulocytes Abs Auto 0.02 10^3/uL (0.00-0.03); Immature Granulocytes Pct Auto 0.4 % (0.0-0.5); Lymphocytes Percent Auto 19.6 % (20.5-60.0); Mean Corpuscular HGB Conc 33.8 g/dL (29.9-35.2); Mean Corpuscular Hemoglobin 31.3 pg (25.9-34.0); Mean Corpuscular Volume 92.7 fL (80.0-94.0); Mean Platelet Volume 10.3 fL (9.5-13.5); Monocytes Absolute Auto 0.5 10^3/uL (0.3-0.8); Monocytes Percent Auto 10.4 % (1.7-12.0); Neutrophils Absolute Auto 3.4 10^3/uL (1.4-6.5); Neutrophils Percent Auto 67.4 % (43.0-75.0); Platelet Count 161 10^3/uL (150-450); Red Blood Count 4.53 10^6/uL (4.70-6.10)
[2024-06-28 09:12] LABS: Alanine Aminotransferase 25 U/L (16-63); Albumin Globulin Ratio 1.1; Albumin Level 3.4 g/dL (3.4-5.0); Alkaline Phosphatase 107 U/L (46-116); Anion Gap 9.8; Aspartate Amino Transferase 18 U/L (15-37); BUN Creatinine Ratio 20.9; Calcium 9.3 mg/dL (8.5-10.1); Carbon Dioxide 30.9 mmol/L (21.0-32.0); Chloride 107 mmol/L (98-107); Estimated GFR (African America >60 (>=60); Estimated GFR (Non-African Ame >60 (>=60); Globulin 3.1 g/dL; Glucose 99 mg/dL (74-106); Potassium 3.7 mmol/L (3.5-5.1); Sodium 144 mmol/L (136-145); Total Protein 6.5 g/dL (6.4-8.2); Troponin I High Sensitivity 13.4 pg/mL (4.0-76.1)
[2024-06-28] MEDS: AMLODIPINE BESYLATE 5 MG TABLET 10 MG PO (09:30)
[2024-06-28] MEDS: HYDROCHLOROTHIAZIDE 25 MG TABLET PO (09:30)
[2024-06-28] MEDS: CARVEDILOL 12.5 MG TABLET PO (09:30)
[2024-06-28] MEDS: ALLOPURINOL 300 MG TABLET PO (09:30)
[2024-06-28] MEDS: ATORVASTATIN CALCIUM 20 MG TABLET PO (09:30)
[2024-06-28] MEDS: LISINOPRIL 20 MG TABLET PO (09:30)
[2024-06-28] MEDS: ASPIRIN 81 MG TABLET.DR PO (09:30)
--- OUTSIDE RECORDS SUMMARY | 2024-06-30 06:19 | XMS_ITS | CCD ---
Author Organization [facility] CliniSysd Care Team Providers Care Section Hand Helper Name Role Phone BRO CHAVEZ Primary Care Physician [phone] Bro Chavez DO Primary Care Provider Bro [...] RADHA Carmen Admitting Unavailable LUE ., RADHA Cramen Attending Unavailable KATHY, DR LYMAN Primary Care [...] (14 sources) Ciprofloxacin Drug Allergy 8 Unknown WhatSalon Other (1 source) No Known Medication Allergies; Translations: [No Known Medication Allergies] Propensity to adverse reactions (disorder) [facility] Repository Medications Current Medications Medication Drug Class(es) [...] Daily, # 30 tab(s), Refills(s) 11, Pharmacy: [facility] [id number], 177, cm, 11/08/22 11:01:00 EST, Height/Length Dosing, [...] Daily, # 30 tab(s), Refills(s) 11, Pharmacy: [facility] [id number], 177, cm, 08/15/23 8:49:00 EDT, Height/Length Dosing, [...] Comment on above: Take 2 tablets by [facility] every 6 hours as needed for pain. cefdinir 300 mg oral capsule (2 sources) Cephalosporin Antibacterial Start: 03-20-2023 End: 11-20-2023 take 1 capsule by mouth twice daily cefdinir (OMNICEF) 300 mg capsule Take 1 capsule by mouth twice daily. 10 capsule 0 03/20/2023 11/20/2023 Discontinued (Course of therapy completed) Comment on above: Take 1 capsule by [facility] twice daily. iv contrast (will be [...] contrast administration guidelines link. lactobacillus rhamnosus gg [id number] unt oral capsule (2 sources) Start: 03-02-2023 [...] 04-22-2019 Chronic Other aftercare (2 sources) Other [facility] (current) drug therapy Episodic Other and unspecified [...] lymphadenectomy done 06/20/[address] Freedman - [id number] ([place] 4+3) +EPE,+margin. Underwent salvage radiation for rising [...] stone Ma (more content not included)... Normal [facility] Comment on above: Result Comment: Elec tronically Signed By: Radha Whitten MD\.br\Date and Time Signed: 06/04/24 10:14 EDT\.br\Electronically Co-Signed By: Belkys Figueroa\.br\Date and Time Co-Signed: 06/04/24 09:23 EDT CNOVtimmy 05-20-2024 CNOV Office Visit (RADTSA ) YONI RAMIREZ ([id number]) 1945 M Date Time Provider Department 05/20/24 [...] day. lisinop (more content not included)... Normal [facility] PSA SerPl-ncon 05-13-2024 Prostate specific Ag [Mass/Vol] ng/mL Normal <2.60 [facility] Comment on above: Order Comment: Speci men Type: BLOOD SPECIMEN Ordering Facility: [facility] Address: [address] [place] [address] Result Comment: Tota l PSA test methodology used is the Electrochemiluminescence Immunoassay by [employer]. Total PSA values by differing methodologies cannot be interchanged. Performed By: #### 2 857-1 #### [facility] CLIA [id number] [address] [place] [address] [place] CNOVon 04-01-2024 [facility] Office Visit ([facility] ) YONI RAMIREZ ([id number]) 1945 M Date Time Provider Department 04/01/24 10:00 AM DONATO BISHOP [facility] During your visit today, we recorded the following information about you: Temperature Pulse Blood pressure 97 degrees 58/minute 162/67 Donato Bishop MD 04/07/2024 4:41 PM Signed [facility] Abdominal Core Health - Follow Up Visit [...] Bishop MD 04/01/24, 10:35 AM General Surgery [facility] Medical Decision Making: Problems: Low: Stable chronic [...] No Drains: No Referring Provider: BRO CHAVEZ [[id number]] Allergies As of Date: 04/01/2024 (No Known [...] for pain. (more content not included)... Normal [facility] CT ABD/PEL WO IVCONon 2023 CT ABD/PEL WO IVCON * * *Final Report* * * DATE OF EXAM: Apr 01 2024 1:54PM [facility] 0531 - CT ABD/PEL WO IVCON / [...] or recurrent hernia. 2. Bilateral nonobstructive nephrolithiasis. 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: ROSANA Transcribe Date/Time: Apr 02 2024 9:22A Dictated by : LANCE CUNHA MD This examination was interpreted and the report reviewed and electronically signed by: LANCE CUNHA MD on Apr 02 2024 9:31AM EST [id number] Normal [facility] Basophils Auto (Bld) [#/Vol] on 01-30-2024 Basophils (Bld) [#/Vol] 0.0 10 3/uL 0.0-0.1 [facility] Basophils/100 WBC Auto (Bld) on 01-30-2024 Basophils/100 WBC (Bld) 0.8 % 0.2-2.0 [facility] Eosinophils/100 WBC Auto (Bl d)on 01-30-2024 Eosinophils/100 WBC (Bld) 3.2 % 0.9-7.0 [facility] Erythrocyte distribution wid th Auto (RBC) [Ratio]on 01-30-2024 Erythrocyte distribution width (RBC) [Ratio] 16.1 % High 11.0-15.0 [facility] Hematocrit Auto (Bld) [Volum e fraction]on 01-30-2024 Hematocrit (Bld) [Volume fraction] 40.0 % Low 42.0-54.0 [facility] Hemoglobin [Mass/volume] in Bloodon 01-30-2024 Hemoglobin (Bld) [Mass/Vol] 13.0 g/dL Low 14.0-18.0 [facility] Laboratory - Chemistry and C hemistry - challengeon 01-30-2024 Ferritin [Mass/Vol] 71.0 ng/mL 26.0-388.0 [facility] - Hematology and Cell countson 01-30-2024 Immature granulocytes/100 WBC (Bld) 0.2 % 0.0-0.5 [facility] Leukocytes [#/volume] correc jignesh for nucleated erythrocytes in Blood by Automated counon 01-30-2024 WBC corrected for nucl RBC Auto (Bld) [#/Vol] 4.9 10 3/uL 4.0-11.0 [facility] Lymphocytes Auto (Bld) [#/Vo l]on 01-30-2024 Lymphocytes (Bld) [#/Vol] 1.1 10 3/uL Low 1.2-3.8 [facility] Lymphocytes/100 WBC Auto (Bl d)on 01-30-2024 Lymphocytes/100 WBC (Bld) 21.7 % 20.5-60.0 [facility] MCH Auto (RBC) [Entitic mass ]on 01-30-2024 MCH (RBC) [Entitic mass] 30.2 pg 25.9-34.0 [facility] MCHC Auto (RBC) [Mass/Vol]on 01-30-2024 MCHC (RBC) [Mass/Vol] 32.5 g/dL 29.9-35.2 [facility] MCV Auto (RBC) [Entitic vol] on 01-30-2024 MCV (RBC) [Entitic vol] 92.8 fL 80.0-94.0 [facility] Monocytes Auto (Bld) [#/Vol] on 01-30-2024 Monocytes (Bld) [#/Vol] 0.6 10 3/uL 0.3-0.8 [facility] Monocytes/100 WBC Auto (Bld) on 01-30-2024 Monocytes/100 WBC (Bld) 11.9 % 1.7-12.0 [facility] Neutrophils Auto (Bld) [#/Vo l]on 01-30-2024 Neutrophils (Bld) [#/Vol] 3.1 10 3/uL 1.4-6.5 [facility] Neutrophils/100 WBC Auto (Bl d)on 01-30-2024 Neutrophils/100 WBC (Bld) 62.2 % 43.0-75.0 [facility] No Panel Informationon 01-29 Eosinophils # (Auto) 0.2 10 3/uL 0.0-0.7 [facility] Immature Granulocyte # (Auto) 0.01 10 3/uL 0.00-0.03 [facility] Platelet mean volume Auto (B ld) [Entitic vol]on 01-30-2024 Platelet mean volume (Bld) [Entitic vol] 11.0 fL 9.5-13.5 [facility] Platelets Auto (Bld) [#/Vol] on 01-30-2024 Platelets (Bld) [#/Vol] 190 10 3/uL 150-450 [facility] RBC Auto (Bld) [#/Vol]on RBC (Bld) [#/Vol] 4.31 10 6/uL Low 4.70-6.10 [facility] Consultation Noteon 11-30-19 Consultation Note [id number]#1.00TIFF Normal [facility] Lab Reportson 11-28-2023 Lab Reports [id number]#1.00TIFF Normal [facility] Patient Educationon 11-28-19 Patient Education Obstetrics and [...] provider. Document Revised: 02/09/2022 Document Reviewed: 02/09/2022 [employer] Patient Education ? 2022 [employer] Normal [facility] Screenson 11-28-2023 Screens [id number]#1.00TIFF Normal [facility] Screens [id number]#1.00TIFF [facility] Urology Office/Clinic Noteon 11-28-2023 Urology Office/Clinic [...] lymphadenectomy done 06/20/[address] Freedman - [id number] ([place] 4+3) +EPE,+margin. Underwent salvage radiation for [...] scarring from prior hernia repair. Referred to [facility] General Surgery for hernia- S/P Excision [...] with genera (more content not included)... Normal [facility] Comment on above: Result Comment: Elec tronically Signed By: Radha Whitten MD\.br\Date and Time Signed: 11/28/23 17:42 EST\.br\Electronically Co-Signed By: Laura Horn\.br\Date and Time Co-Signed: 11/28/23 11:07 EST CNOVon 11-20-2023 CNOV Office Visit (RADTSA ) YONI RAMIREZ ([id number]) 1945 M Date Time Provider Department 11/20/23 1:30 PM Aaliyah HERNANDEZ During your visit today, we recorded the following information about you: Temperature Pulse Respiration Blood pressure 97.3 degrees 59/minute 16/minute 145/76 Weight 103.9 kg Aaliyah Hernandez MD 11/28/2023 3:34 PM Signed Radiation Oncology - Follow Up Note PATIENT NAME: Yoni Ramirez PATIENT DIAGNOSIS: Prostate adenocarcinoma, initial PSA 7.4, biopsy [place] score 4 + 3 = 7 (grade [...] daily. atorva (more content not included)... Normal [facility] PSA SerPl-mCncon 11-13-2023 Prostate specific Ag [Mass/Vol] ng/mL Normal <2.60 [facility] Comment on above: Order Comment: Speci men Type: BLOOD SPECIMEN Ordering Facility: [facility] Address: [address] [place] [address] Result Comment: Tota l PSA test methodology used is the Electrochemiluminescence Immunoassay by [employer]. Total PSA values by differing methodologies cannot be interchanged. Performed By: #### 2 857-1 #### [facility] CLIA [id number] [facility] [place] [address] [place] Ambulatory Visit Summaryon 1 10-15-2022 Ambulatory Visit Summary YONI RAMIREZ :1945 Visit Date:08/15/2023 Ambulatory Visit Instructions Your Diagnosis Mixed incontinence Personal history of prostate cancer Hernia, inguinal Inguinal mass Varicocele present on ultrasound of scrotum Tests Performed Urnls Dip Stick Auto w/o Microscopy POC 79347 Your Care Team Attending Physician - Radha [...] Mouth Every day [facility]: [facility] [id number] Unchanged allopurinol (allopurinol 300 mg Tab) 1 [...] physician if questions or concerns Pharmacy Information [facility] [id number]: [address] [place] [id number] [phone] Test Results Urnls Dip Stick Auto w/o Microscopy POC 71436 (08/15/2023) Bilirubin Urine Dipstick - Negative Blood Urine Dipstick - Negative Glucose Urine Dipstick - Negative Ketones Urine Dipstick - Negative Leukocytes Urine Dipstick - Negative Nitrite Urine Dipstick - Negative Protein Urine Dipstick - Negative Specific Rozet Urine Dipstick - 1.025 Urine Appearance Urine [...] while sitting, (more content not included)... Normal [facility] Patient Educationon 08-15-20 Patient Education Obstetrics and [...] provider. Document Revised: 02/09/2022 Document Reviewed: 02/09/2022 [email or web address] Patient Education ? 2022 [employer]. Normal [facility] Screenson 08-15-2023 Screens [id number]#1.00TIFF [facility] Screens [id number]#1.00TIFF [facility] Urology Office/Clinic Noteon 08-15-2023 Urology Office/Clinic [...] lymphadenectomy done 06/20/[address] Freedman - [id number] ([place] 4+3) +EPE,+margin. Underwent salvage ra (more content not included)... Normal [facility] Comment on above: Result Comment: Elec tronically Signed By: iFsh WHARTON, Radha Tejada\.br\Date and Time Signed: 08/15/23 21:17 EDT\.br\Electronically Co-Signed By: Savanna Rosenthal.br\Date and Time Co-Signed: 08/15/23 09:35 EDT Basic metabolic 2000 panelon 02-28-2023 Anion gap [Moles/Vol] 12 mmol/L Normal 07-02 [facility] Comment on above: Order Comment: Speci men Type: BLOOD SPECIMEN Ordering Facility: [facility] Address: [address] [address] Performed By: #### 2 432-2, #### [facility] CLIA [id number] [address] [place] [address] [place] Calcium [Mass/Vol] 8.7 mg/dL Normal 8.5-10.2 [facility] Comment on above: Order Comment: Speci men Type: BLOOD SPECIMEN Ordering Facility: [facility] Address: [address] [address] Performed By: #### 2 2, #### [facility] CLIA [id number] [address] [place] [address] [place] Chloride [Moles/Vol] 103 mmol/L Normal 97-105 [facility] Comment on above: Order Comment: Speci men Type: BLOOD SPECIMEN Ordering Facility: [facility] Address: [address] [address] Performed By: #### 2 2, #### [facility] CLIA [id number] [address] [place] [address] [place] CO2 [Moles/Vol] 24 mmol/L Normal 22-30 [facility] Comment on above: Order Comment: Speci men Type: BLOOD SPECIMEN Ordering Facility: [facility] Address: [address] [address] Performed By: #### 2 2, #### [facility] CLIA [id number] [address] [place] [address] [place] Creatinine [Mass/Vol] 0.49 mg/dL Low 0.73-1.22 [facility] Comment on above: Order Comment: Speci men Type: BLOOD SPECIMEN Ordering Facility: [facility] Address: [address] [address] Performed By: #### 2 2, #### [facility] CLIA [id number] [address] [place] [address] [place] ESTIMATED GLOMERULAR FILTRATION RATE 107 mL/min/1.73m??? Normal >=60 [facility] Comment on above: Order Comment: John chan Type: BLOOD SPECIMEN Ordering Facility: [facility] Address: [address] [place] [address] Result Comment: Trena mated Glomerular Filtration Rate [...] GFR. Performed By: #### 2 4321-2, #### [facility] CLIA [id number] [address] [place] [address] [place] Glucose [Mass/Vol] 92 mg/dL Normal 74-99 [facility] Comment on above: Order Comment: John chan Type: BLOOD SPECIMEN Ordering Facility: [facility] Address: [address] [place] [address] Result Comment: The [place] Diabetes Association (ADA) provides guidance for cutoff [...] Standards of Medical Care in Diabetes 2016, [place] [employer] Association. Diabetes Care. 2016.39(Suppl 1). Performed By: #### 2 4321-2, #### [facility] CLIA [id number] [address] [place] [address] [place] Potassium [Moles/Vol] 3.8 mmol/L Normal 3.7-5.1 [facility] Comment on above: Order Comment: John chan Type: BLOOD SPECIMEN Ordering Facility: [facility] Address: [address] [address] Performed By: #### 2 4320-11, #### [facility] CLIA [id number] [address] [place] [address] [place] Sodium [Moles/Vol] 139 mmol/L Normal 136-144 [facility] Comment on above: Order Comment: Speci men Type: BLOOD SPECIMEN Ordering Facility: [facility] Address: [address] [address] Performed By: #### 2 4320-11, #### [facility] CLIA [id number] [address] [place] [address] [place] Urea nitrogen [Mass/Vol] 8 mg/dL Low 9- [facility] Comment on above: Order Comment: Speci men Type: BLOOD SPECIMEN Ordering Facility: [facility] Address: [address] [address] Performed By: #### 2 4320-11, #### [facility] CLIA [id number] [address] [place] [address] [place] CBC W Auto Differential pane l (Bld)on 02-28-2023 Basophils (Bld) [#/Vol] 0.03 10*3/uL Normal <0.11 [facility] Comment on above: Order Comment: Speci men Type: BLOOD SPECIMEN Ordering Facility: [facility] Address: [address] [address] Performed By: #### 2 4320-11, #### [facility] CLIA [id number] [address] [place] [address] [place] Basophils/100 WBC (Bld) 0.6 % Normal [facility] Comment on above: Order Comment: Speci men Type: BLOOD SPECIMEN Ordering Facility: [facility] Address: [address] [address] Performed By: #### 2 4320-11, #### [facility] CLIA [id number] [address] [place] [address] [place] Differential cell count method Nom (Bld) Auto Normal [facility] Comment on above: Order Comment: Speci men Type: BLOOD SPECIMEN Ordering Facility: [facility] Address: [address] [place] [address] Performed By: #### 2 2, #### [facility] CLIA [id number] [address] [place] [address] [place] Eosinophils (Bld) [#/Vol] 0.36 10*3/uL Normal <0.46 [facility] Comment on above: Order Comment: Speci men Type: BLOOD SPECIMEN Ordering Facility: [facility] Address: [address] [place] [address] Performed By: #### 2 4320-11, #### [facility] CLIA [id number] [address] [place] [address] [place] Eosinophils/100 WBC (Bld) 7.5 % Normal [facility] Comment on above: Order Comment: Speci men Type: BLOOD SPECIMEN Ordering Facility: [facility] Address: [address] [place] [address] Performed By: #### 2 4320-11, #### [facility] CLIA [id number] [address] [place] [address] [place] Erythrocyte distribution width (RBC) [Ratio] 15.4 % High 11.5-15.0 [facility] Comment on above: Order Comment: Speci men Type: BLOOD SPECIMEN Ordering Facility: [facility] Address: [address] [place] [address] Performed By: #### 2 4320-11, #### [facility] CLIA [id number] [address] [place] [address] [facility] [place] Hematocrit (Bld) [Volume fraction] 36.0 % Low 39.0-51.0 [facility] Comment on above: Order Comment: Speci men Type: BLOOD SPECIMEN Ordering Facility: [facility] Address: [address] [place] [address] Performed By: #### 2 4321- #### [facility] CLIA [id number] [address] [place] [address] [place] Hemoglobin (Bld) [Mass/Vol] 12.1 g/dL Low 13.0-17.0 [facility] Comment on above: Order Comment: Speci men Type: BLOOD SPECIMEN Ordering Facility: [facility] Address: [address] [place] [address] Performed By: #### 2 4320-11, #### [facility] CLIA [id number] [address] [place] [address] [place] Immature granulocytes (Bld) [#/Vol] 10*3/uL Normal <0.10 [facility] Comment on above: Order Comment: Speci men Type: BLOOD SPECIMEN Ordering Facility: [facility] Address: [address] [place] [address] Performed By: #### 2 4320-11, #### [facility] CLIA [id number] [address] [place] [address] [place] Immature granulocytes/100 WBC (Bld) 0.4 % Normal [facility] Comment on above: Order Comment: Speci men Type: BLOOD SPECIMEN Ordering Facility: [facility] Address: [address] [place] [address] Performed By: #### 2 4320-11, #### [facility] CLIA [id number] [address] [place] [address] [place] Lymphocytes (Bld) [#/Vol] 0.61 10*3/uL Low 1.00-4.00 [facility] Comment on above: Order Comment: Speci men Type: BLOOD SPECIMEN Ordering Facility: [facility] Address: [address] [place] [address] Performed By: #### 2 4320-11, #### [facility] CLIA [id number] [address] [place] [address] [place] Lymphocytes/100 WBC (Bld) 12.6 % Normal [facility] Comment on above: Order Comment: Speci men Type: BLOOD SPECIMEN Ordering Facility: [facility] Address: [address] [address] Performed By: #### 2 4320-11, #### [facility] CLIA [id number] [address] [place] [address] MCH (RBC) [Entitic mass] 30.0 pg Normal 26.0-34.0 [facility] Comment on above: Order Comment: Speci men Type: BLOOD SPECIMEN Ordering Facility: [facility] Address: [address] [address] Performed By: #### 2 4320-11, #### [facility] CLIA [id number] [address] [place] [address] [place] MCHC (RBC) [Mass/Vol] 33.6 g/dL Normal 30.5-36.0 [facility] Comment on above: Order Comment: Speci men Type: BLOOD SPECIMEN Ordering Facility: [facility] Address: [address] [address] Performed By: #### 2 4320-11, #### [facility] CLIA [id number] [address] [place] [address] [place] MCV (RBC) [Entitic vol] 89.3 fL Normal 80.0-100.0 [facility] Comment on above: Order Comment: Speci men Type: BLOOD SPECIMEN Ordering Facility: [facility] Address: [address] [address] Performed By: #### 2 4320-11, #### [facility] CLIA [id number] [address] [place] [address] [place] Monocytes (Bld) [#/Vol] 0.58 10*3/uL Normal <0.87 [facility] Comment on above: Order Comment: Speci men Type: BLOOD SPECIMEN Ordering Facility: [facility] Address: [address] [address] Performed By: #### 2 4320-11, #### [facility] CLIA [id number] [address] [place], [place] [address] [place] Monocytes/100 WBC (Bld) 12.0 % Normal [facility] Comment on above: Order Comment: Speci men Type: BLOOD SPECIMEN Ordering Facility: [facility] Address: [address] [place] [address] Performed By: #### 2 2, #### [facility] CLIA [id number] [address] [place] [address] [place] Neutrophils (Bld) [#/Vol] 3.23 10*3/uL Normal 1.45-7.50 [facility] Comment on above: Order Comment: Speci men Type: BLOOD SPECIMEN Ordering Facility: [facility] Address: [address] [place] [address] Performed By: #### 2 2, #### [facility] CLIA [id number] [address] [place] [address] [place] Neutrophils/100 WBC (Bld) 66.9 % Normal [facility] Comment on above: Order Comment: Speci men Type: BLOOD SPECIMEN Ordering Facility: [facility] Address: [address] [place] [address] Performed By: #### 2 4320-11, #### [facility] CLIA [id number] [address] [place] [address] [place] Nucleated RBC (Bld) [#/Vol] 10*3/uL Normal <0.01 [facility] Comment on above: Order Comment: Speci men Type: BLOOD SPECIMEN Ordering Facility: [facility] Address: [address] [address] Performed By: #### 2 4320-2, #### [facility] CLIA [id number] [address] [place] [address] [place] Nucleated RBC/100 WBC (Bld) [Ratio] 0.0 /100 WBC Normal [facility] Comment on above: Order Comment: Speci men Type: BLOOD SPECIMEN Ordering Facility: [facility] Address: [address] [place] [address] Performed By: #### 2 4320-2, #### [facility] CLIA [id number] [address] [place] [address] [place] Platelet mean volume (Bld) [Entitic vol] 10.8 fL Normal 9.0-12.7 [facility] Comment on above: Order Comment: Speci men Type: BLOOD SPECIMEN Ordering Facility: [facility] Address: [address] [place] [address] Performed By: #### 2 4320-2, #### [facility] CLIA [id number] [place] [address] [place] Platelets (Bld) [#/Vol] 182 10*3/uL Normal 150-400 [facility] Comment on above: Order Comment: Speci men Type: BLOOD SPECIMEN Ordering Facility: [facility] Address: [address] [place] [address] Performed By: #### 2 4320-11, #### [facility] CLIA [id number] [address] [place] [address] [place] RBC (Bld) [#/Vol] 4.03 10*6/uL Low 4.20-6.00 [facility] Comment on above: Order Comment: Speci men Type: BLOOD SPECIMEN Ordering Facility: [facility] Address: [address] [place] [address] Performed By: #### 2 4320-11, #### [facility] CLIA [id number] [address] [place] [address] [place] WBC (Bld) [#/Vol] 4.83 10*3/uL Normal 3.70-11.00 [facility] Comment on above: Order Comment: Speci men Type: BLOOD SPECIMEN Ordering Facility: [facility] Address: [address] [place] [address] Performed By: #### 2 2, #### [facility] CLIA [id number] [place] [address] [place] Magnesium SerPl-mCncon 02-28 Magnesium [Mass/Vol] 1.8 mg/dL Normal 1.7-2.3 [facility] Comment on above: Order Comment: Speci men Type: BLOOD SPECIMEN Ordering Facility: [facility] Address: [address] [place] [address] Performed By: #### 2 4321-2, #### [facility] CLIA [id number] OF [facility] NURSING PROGon 02-28-2023 NURSING PROG HNO ID: [id number] Author: Christie Mayberry RN Service: Nursing Author Type: Registered Nurse Type: Nursing Progress Note Filed: 02/28/2023 7:43 AM Note Text: 2016: BP 179/67 and 167/62. HR 79. Asymptomatic. No prn BP meds on. Text page sent to surgery for further orders. 2022: Scheduled and PRN BP meds ordered. Normal [facility] Phosphate [facility] 02-28 Phosphate [Mass/Vol] 3.0 mg/dL Normal 2.7-4.8 [facility] Comment on above: Order Comment: Speci men Type: BLOOD SPECIMEN Ordering Facility: [facility] Address: [address] [place] [address] Performed By: #### 2 432-2, #### [facility] CLIA [id number] [address] [place] [address] [place] Basic metabolic 2000 panelon 02-27-2023 Anion gap [Moles/Vol] 10 mmol/L Normal 9-18 [facility] Comment on above: Order Comment: Speci men Type: BLOOD SPECIMEN Ordering Facility: [facility] Address: [place] [address] Performed By: #### 2 4321-2, 89346-7, 2777-1 #### [facility] CLIA [id number] [place] [address] [place] Calcium [Mass/Vol] 8.6 mg/dL Normal 8.5-10.2 [facility] Comment on above: Order Comment: Speci men Type: BLOOD SPECIMEN Ordering Facility: [facility] Address: [address] [place] [place] [address] Performed By: #### 2 4321-2, , 2776-10 #### [facility] CLIA [id number] [address] [place] [address] [place] Chloride [Moles/Vol] 106 mmol/L High 97-105 [facility] Comment on above: Order Comment: Speci men Type: BLOOD SPECIMEN Ordering Facility: [facility] Address: [address] [place] [address] Performed By: #### 2 4321-2, , 2776-10 #### [facility] CLIA [id number] [address] [place] [address] [place] CO2 [Moles/Vol] 26 mmol/L Normal 22-30 [facility] Comment on above: Order Comment: Speci men Type: BLOOD SPECIMEN Ordering Facility: [facility] Address: [address] [place] [address] Performed By: #### 2 4321-2, , 2776-10 #### [facility] CLIA [id number] [address] [place] [address] [place] Creatinine [Mass/Vol] 0.55 mg/dL Low 0.73-1.22 [facility] Comment on above: Order Comment: Speci men Type: BLOOD SPECIMEN Ordering Facility: [facility] Address: [address] [place] [address] Performed By: #### 2 4321-2, , 2776-10 #### [facility] CLIA [id number] [address] [place] [address] [place] ESTIMATED GLOMERULAR FILTRATION RATE 103 mL/min/1.73m??? Normal >=60 [facility] Comment on above: Order Comment: Speci men Type: BLOOD SPECIMEN Ordering Facility: [facility] Address: [address] [place] [address] Result Comment: Trena mated Glomerular Filtration Rate [...] By: #### 2 4321-2, , 2776-10 #### [facility] CLIA [id number] [place] [address] [place] Glucose [Mass/Vol] 101 mg/dL High 74-99 [facility] Comment on above: Order Comment: John chan Type: BLOOD SPECIMEN Ordering Facility: [facility] Address: [address] [id number] Result Comment: The [place] Diabetes Association (ADA) provides guidance for cutoff [...] Standards of Medical Care in Diabetes 2016, [place] [employer] Association. Diabetes Care. 2016.39(Suppl 1). Performed By: #### 2 4321-2, , 2776-10 #### [facility] CLIA [id number] [place] [address] [place] Potassium [Moles/Vol] 3.6 mmol/L Low 3.7-5.1 [facility] Comment on above: Order Comment: John chan Type: BLOOD SPECIMEN Ordering Facility: [facility] Address: [address] [id number] Performed By: #### 2 4321-2, , 2776-10 #### [facility] CLIA [id number] [address] [place] [id number] [place] Sodium [Moles/Vol] 142 mmol/L Normal 136-144 [facility] Comment on above: Order Comment: Specesperanaz men Type: BLOOD SPECIMEN Ordering Facility: [facility] Address: [address] [id number] Performed By: #### 2 4321-2, , 2776-10 #### [facility] CLIA [id number] Urea nitrogen [Mass/Vol] 8 mg/dL Low 9 [facility] Comment on above: Order Comment: Speci men Type: BLOOD SPECIMEN Ordering Facility: [facility] Address: [address] [place] [id number] Performed By: #### 2 4321-2, , 2776-10 #### [facility] CLIA [id number] CASE MGT INIT ASSESon 2022 CASE MGT INIT ASSES HNO ID: [id number] Author: YURY Luz Service: ? Author Type: Stake Setter Type: Care Mgt Initial Assessment Filed: 02/27/2023 [...] person(s) per dept policy Potential Transition Plans Intermediate Facility/Intermediate Care Facility;Home Care Advance Directives Current Advance Directive: None [employer] Viewer Attempted to Assist with AD Completion: Yes [...] General wellness, Be able to go home [place] of Choice Explained: [place] of Choice Given: Yes Level of Care Discussed: Home Care;Intermediate Facility Are you interested in bedside delivery [...] If patient progresses and can go home, [facility] can accept. Patient's NOK would [...] 27, 2023 TIME: 3:26 PM CONTACT #: [phone] Normal [facility] CBC W Auto Differential pane l (Bld)on 02-27-2023 Basophils (Bld) [#/Vol] 0.03 10*3/uL Normal <0.11 [facility] Comment on above: Order Comment: Specesperanza chan Type: BLOOD SPECIMENOrdering Facility: [facility] Address: [address] [address] Performed By: #### 5 7021-8 ####[facility] [id number] [place] [address] [place] Basophils/100 WBC (Bld) 0.5 % Normal [facility] Comment on above: Order Comment: John chan Type: BLOOD SPECIMENOrdering Facility: [facility] Address: [address] [place] [address] Performed By: #### 5 7021-8 ####[facility] [id number] [place] [address] [place] Differential cell count method Nom (Bld) Auto Normal [facility] Comment on above: Order Comment: Speci men Type: BLOOD SPECIMENOrdering Facility: [facility] Address: [address] [address] Performed By: #### 5 7021-8 ####[facility]ORYCLIA [id number] [address] [place] Eosinophils (Bld) [#/Vol] 0.27 10*3/uL Normal <0.46 [facility] Comment on above: Order Comment: Speci men Type: BLOOD SPECIMENOrdering Facility: [facility] Address: [address] [address] Performed By: #### 5 7021-8 ####[facility]ORYCLIA [id number] [address] Eosinophils/100 WBC (Bld) 4.5 % Normal [facility] Comment on above: Order Comment: Speci men Type: BLOOD SPECIMENOrdering Facility: [facility] Address: [address] [address] Performed By: #### 5 7021-8 ####[facility]ATORYCLIA [id number] [address] [place] Erythrocyte distribution width (RBC) [Ratio] 15.8 % High 11.5-15.0 [facility] Comment on above: Order Comment: Speci men Type: BLOOD SPECIMENOrdering Facility: [facility] Address: [address] [place] [address] Performed By: #### 5 7021-8 ####[facility] [id number] [address] [place] Hematocrit (Bld) [Volume fraction] 35.5 % Low 39.0-51.0 [facility] Comment on above: Order Comment: Speci men Type: BLOOD SPECIMENOrdering Facility: [facility] Address: [address] [address] Performed By: #### 5 7021-8 ####[facility] [id number] [place] [address] [place] Hemoglobin (Bld) [Mass/Vol] 11.7 g/dL Low 13.0-17.0 [facility] Comment on above: Order Comment: Speci men Type: BLOOD SPECIMENOrdering Facility: [facility] Address: [address] [place] [address] Performed By: #### 5 7021-8 ####[facility]ORYCLIA [id number] [place] [address] [place] Immature granulocytes (Bld) [#/Vol] 0.03 10*3/uL Normal <0.10 [facility] Comment on above: Order Comment: Speci men Type: BLOOD SPECIMENOrdering Facility: [facility] Address: [address] [place] [address] Performed By: #### 5 7021-8 ####[facility]ORYCLIA [id number] [address] [place] Immature granulocytes/100 WBC (Bld) 0.5 % Normal [facility] Comment on above: Order Comment: Speci men Type: BLOOD SPECIMENOrdering Facility: [facility] Address: [address] [place] [address] Performed By: #### 5 7021-8 ####[facility]ATORYCLIA [id number] [place] [address] [place] Lymphocytes (Bld) [#/Vol] 0.78 10*3/uL Low 1.00-4.00 [facility] Comment on above: Order Comment: Speci men Type: BLOOD SPECIMENOrdering Facility: [facility] Address: [address] [address] Performed By: #### 5 7021-8 ####[facility]ATORYCLIA [id number] [address] [place] Lymphocytes/100 WBC (Bld) 12.9 % Normal [facility] Comment on above: Order Comment: Speci men Type: BLOOD SPECIMENOrdering Facility: [facility] Address: [address] [place] [address] Performed By: #### 5 7021-8 ####[facility]ORYCLIA [id number] [address] [place] MCH (RBC) [Entitic mass] 30.2 pg Normal 26.0-34.0 [facility] Comment on above: Order Comment: Speci men Type: BLOOD SPECIMENOrdering Facility: [facility] Address: [address] [place] [address] Performed By: #### 5 7021-8 ####[facility]ORYCLIA [id number] [address] [place] MCHC (RBC) [Mass/Vol] 33.0 g/dL Normal 30.5-36.0 [facility] Comment on above: Order Comment: Speci men Type: BLOOD SPECIMENOrdering Facility: [facility] Address: [address] [place] [address] Performed By: #### 5 7021-8 ####[facility]ATORYCLIA [id number] [address] STATES [facility] MCV (RBC) [Entitic vol] 91.7 fL Normal 80.0-100.0 [facility] Comment on above: Order Comment: Speci men Type: BLOOD SPECIMENOrdering Facility: [facility] Address: [address] [place] [address] Performed By: #### 5 7021-8 ####[facility]ORYCLIA [id number] [address] [place] Monocytes (Bld) [#/Vol] 0.51 10*3/uL Normal <0.87 [facility] Comment on above: Order Comment: Speci men Type: BLOOD SPECIMENOrdering Facility: [facility] Address: [address] [place] [address] Performed By: #### 5 7021-8 ####[facility]ORYCLIA [id number] [address] Monocytes/100 WBC (Bld) 8.4 % Normal [facility] Comment on above: Order Comment: Speci men Type: BLOOD SPECIMENOrdering Facility: [facility] Address: [address] [address] Performed By: #### 5 7021-8 ####[facility]ORYCLIA [id number] [place] [address] [place] Neutrophils (Bld) [#/Vol] 4.44 10*3/uL Normal 1.45-7.50 [facility] Comment on above: Order Comment: Speci men Type: BLOOD SPECIMENOrdering Facility: [facility] Address: [address] [address] Performed By: #### 5 7021-8 ####[facility] [id number] [place] [address] [place] Neutrophils/100 WBC (Bld) 73.2 % Normal [facility] Comment on above: Order Comment: Speci men Type: BLOOD SPECIMENOrdering Facility: [facility] Address: [address] [address] Performed By: #### 5 7021-8 ####[facility]ATORYCLIA [id number] [place] [address] [place] Nucleated RBC (Bld) [#/Vol] 10*3/uL Normal <0.01 [facility] Comment on above: Order Comment: Speci men Type: BLOOD SPECIMENOrdering Facility: [facility] Address: [address] [address] Performed By: #### 5 7021-8 ####[facility]ATORYCLIA [id number] [place] [address] [place] Nucleated RBC/100 WBC (Bld) [Ratio] 0.0 /100 WBC Normal [facility] Comment on above: Order Comment: Speci men Type: BLOOD SPECIMENOrdering Facility: [facility] Address: [address] [place] [address] Performed By: #### 5 7021-8 ####[facility]ORYCLIA [id number] [place] [address] [place] Platelet mean volume (Bld) [Entitic vol] 10.7 fL Normal 9.0-12.7 [facility] Comment on above: Order Comment: Speci men Type: BLOOD SPECIMENOrdering Facility: [facility] Address: [address] [place] [address] Performed By: #### 5 7021-8 ####[facility]ATORYCLIA [id number] [place] [id number] [place] Platelets (Bld) [#/Vol] 157 10*3/uL Normal 150-400 [facility] Comment on above: Order Comment: Speci men Type: BLOOD SPECIMENOrdering Facility: [facility] Address: [address] [place] [address] Performed By: #### 5 7021-8 ####[facility] [id number] [place] [id number] [place] RBC (Bld) [#/Vol] 3.87 10*6/uL Low 4.20-6.00 [facility] Comment on above: Order Comment: Speci men Type: BLOOD SPECIMENOrdering Facility: [facility] Address: [address] [place] [address] Performed By: #### 5 7021-8 ####[facility]CLIA [id number] [place] [address] [facility] [place] WBC (Bld) [#/Vol] 6.06 10*3/uL Normal 3.70-11.00 [facility] Comment on above: Order Comment: Speci men Type: BLOOD SPECIMENOrdering Facility: [facility] Address: [address] [place] [address] Performed By: #### 5 7021-8 ####[facility]CLIA [id number] [place] [id number] [facility] [place] CONSULT PROGon 02-27-2023 CONSULT PROG HNO ID: [id number] Author: Ree Fernandez APRN.[employer] Service: Pain Management Author Type: Nurse Practitioner [...] Lymph 1.00 - 4.00 k/uL 0.78 (L) Letcher% % 8.4 Abs Letcher <0.87 k/uL 0.51 Eosin% % 4.5 Abs [...] - 30 (more content not included)... Normal [facility] HIGH SENSITIVITY TROPONIN To n 02-27-2023 HIGH SENSITIVITY PHYLLIS 14 ng/L High <12 [facility] Comment on above: Order Comment: John chan Type: BLOOD SPECIMEN Ordering Facility: [facility] Address: [address] [place] [phone] Result Comment: When assessing risk for acute [...] day MACE. Performed By: #### 2 4321-2, 65478-4 #### [facility] CLIA [id number] [place] [address] [place] Magnesium SerPl-mCncon 02-27 Magnesium [Mass/Vol] 2.1 mg/dL Normal 1.7-2.3 [facility] Comment on above: Order Comment: Speci men Type: BLOOD SPECIMEN Ordering Facility: [facility] Address: [address] [facility] [place] [address] Performed By: #### 2 4321-2, , 2776-10 #### [facility] CLIA [id number] [place] NURSING PROGon 02-27-2023 NURSING PROG HNO ID: [id number] Author: Latasha Evans RN Service: Nursing Author [...] chair with 2 assist and walker. 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 bp 155/49, hr 71, spo2 94% nc 2.5L. would you like a troponin order. Thanks Vivian [phone], new orders received. 0139 paged surgery Hi, [email or web address] Tatiana, high sensitivity troponin was 14. Normal [facility] Phosphate SerPl-mCncon 02-27 Phosphate [Mass/Vol] 2.1 mg/dL Low 2.7-4.8 [facility] Comment on above: Order Comment: Speci men Type: BLOOD SPECIMEN Ordering Facility: [facility] Address: [place] [address] Performed By: #### 2 4321-2, , 2776-10 #### [facility] CLIA [id number] [place] [address] [place] THERAPY NTon 02-27-2023 THERAPY NT HNO ID: [id number] Author: Judith Hernandez, OTR/L Service: Occupational Therapy Author Type: Occupational Therapist Type: Therapy (PT/OT/Speech/Resp) Filed: 02/27/2023 5:06 PM Note Text: Occupational Therapy Treatment SERVICE DATE: 02/27/2023 SERVICE TIME: 1546 to 1640 ROOM: [place] [address] Scheduled Surgery For Left Inguinal Hernia, S/P Attempted Dysa-Ywd-Tlsxz Repair Of Left Femoral Hernia, Excision Of [...] Shoe Horn, Long Handled Sponge, Wheeled Walker, Child Psychometrist, Sock Aid, Shower Chair OT 6 Clicks Score: 17 Precautions/Activity Restrictions: Abdominal, Bed/Chair Alarm, Fall Risk, Lines/Tubes/Drains, Diet Restrictions, Other: See Comments Current Hospital Course: Scheduled Surgery For Left Inguinal Hernia, S/P Attempted Yoxj-Smy-Prkdt Repair Of Left Femoral Hernia, Excision Of Previously Implanted Mesh, Exploratory Laparotomy, Bilateral TAR, Implantation Of 30 x 30 cm Prolene Mesh 02/23/23 Reason for Hospital Admission: Scheduled Surgery For Left Inguinal Hernia, S/P Attempted Ptef-Foo-Sdsqm Repair Of Left Femoral Hernia, Excision Of [...] Comment Comments: In one level home in [place], [place] Assistance Available: PRN Entry To Home: [...] situation 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 [facility] THERAPY NT HNO ID: [id number] Author: Ree Gardner, PT Service: Physical Therapy Author Type: Physical Therapist Type: Therapy (PT/OT/Speech/Resp) Filed: 02/27/2023 12:36 PM Note Text: Physical Therapy Treatment SERVICE DATE: 02/27/2023 SERVICE TIME: 1100 to 1138 ROOM: [place] [address] Recommended Discharge Disposition: Subacute/SNF Recommended Discharge Disposition [...] Surgery For Left Inguinal Hernia, S/P Attempted Ykpf-Fdr-Nippn Repair Of Left Femoral Hernia, Excision Of Previously Implanted Mesh, Exploratory Laparotomy, Bilateral TAR, Implantation Of 30 x 30 cm Prolene Mesh 02/23/23 Reason for Hospital Admission: Scheduled Surgery For Left Inguinal Hernia, S/P Attempted Fzbb-Mic-Zjlhm Repair Of Left Femoral Hernia, Excision Of [...] Comment Comments: In one level home in [place], [place] Assistance Available: PRN Entry To Home: [...] Diagnosis: Reduced mobility-other Interventions Provided: Therapeutic Exercise (97961), Therapeutic Activity (57390), Gait Training (95416) Therapeutic Exercise (61484) Treatment Minutes: 15 $ Therapeutic Exercise (53962) Billed Units: 1 unit Therapeutic Activity (81985) Treatment Minutes: 15 $ Therapeutic Activity (75384) Billed Units: 1 unit Gait Training (44430) Treatment Minutes: 8 $ Gait Training (59226) Billed Units: 1 unit (more content not included)... Normal [facility] Basic metabolic 2000 panelon 02-26-2023 Anion gap [Moles/Vol] 9 mmol/L Normal -18 [facility] Comment on above: Order Comment: Speci men Type: BLOOD SPECIMENOrdering Facility: [facility] Address: [address] Performed By: #### 2 4321-2, , 2776-10 ####[facility]ATORYCLIA [id number] [place] [id number] [place] Calcium [Mass/Vol] 8.5 mg/dL Normal 8.5-10.2 [facility] Comment on above: Order Comment: Speci men Type: BLOOD SPECIMENOrdering Facility: [facility] Address: [address] [place] [address] Performed By: #### 2 4321-2, , 2776-10 ####[facility]ATORYCLIA [id number] [place] [address] [place] Chloride [Moles/Vol] 104 mmol/L Normal 97-105 [facility] Comment on above: Order Comment: Speci men Type: BLOOD SPECIMENOrdering Facility: [facility] Address: [address] [facility] [address] [place] [address] Performed By: #### 2 4320-2, , 2776-10 ####[facility] LABORATORYCLIA [id number] [place] [id number] [place] CO2 [Moles/Vol] 25 mmol/L Normal 22-30 [facility] Comment on above: Order Comment: Speci men Type: BLOOD SPECIMENOrdering Facility: [facility] Address: [address] [address] Performed By: #### 2 4320-2, , 2776-10 ####[facility]ATORYCLIA [id number] [place] [id number] [place] Creatinine [Mass/Vol] 0.55 mg/dL Low 0.73-1.22 [facility] Comment on above: Order Comment: Speci men Type: BLOOD SPECIMENOrdering Facility: [facility] Address: [address] [place] [address] Performed By: #### 2 4321-2, , 2776-10 ####[facility]ATORYCLIA [id number] [place] [address] [place] ESTIMATED GLOMERULAR FILTRATION RATE 103 mL/min/1.73m??? Normal >=60 [facility] Comment on above: Order Comment: John chan Type: BLOOD SPECIMENOrdering Facility: [facility] Address: [address] [place] [address] Result Comment: Trena mated Glomerular Filtration Rate [...] Performed By: #### 2 4321-2, , 2776-10 ####[facility]ATORYCLIA [id number] [place] [address] [place] Glucose [Mass/Vol] 105 mg/dL High 74-99 [facility] Comment on above: Order Comment: John chan Type: BLOOD SPECIMENOrdering Facility: [facility] Address: [address] [place] [address] Result Comment: The [place] Diabetes [employer] (ADA) provides guidance for cutoff [...] Standards of Medical Care in Diabetes 2016, [place] [employer]. Diabetes Care. 2016.39(Suppl 1). Performed By: #### 2 4321-2, , 2776-10 ####[facility]ATORYCLIA [id number] [place] [id number] [place] Potassium [Moles/Vol] 3.2 mmol/L Low 3.7-5.1 [facility] Comment on above: Order Comment: Speci men Type: BLOOD SPECIMENOrdering Facility: [facility] Address: [address] [address] Performed By: #### 2 4321-2, , 2776-10 ####[facility] LABORATORYCLIA [id number] [place] [address] [place] [facility] Sodium [Moles/Vol] 138 mmol/L Normal 136-144 [facility] Comment on above: Order Comment: Speci men Type: BLOOD SPECIMENOrdering Facility: [facility] Address: [address] [address] Performed By: #### 2 4321-2, , 2776-10 ####[facility] LABORATORYCLIA [id number] [address] [place] Urea nitrogen [Mass/Vol] 9 mg/dL Normal 9-24 [facility] Comment on above: Order Comment: Speci men Type: BLOOD SPECIMENOrdering Facility: [facility] Address: [address] [address] Performed By: #### 2 4320-2, , 2776-10 ####[facility] LABORATORYCLIA [id number] [place] [address] [place] CBC W Auto Differential pane l (Bld)on 02-26-2023 Basophils (Bld) [#/Vol] 0.03 10*3/uL Normal <0.11 [facility] Comment on above: Order Comment: Speci men Type: BLOOD SPECIMEN [facility]ing Facility: [facility] Address: [address] [address] Performed By: #### 5 7021-8 #### [facility] CLIA [id number] [place] Basophils/100 WBC (Bld) 0.4 % Normal [facility] Comment on above: Order Comment: Speci men Type: BLOOD SPECIMEN [facility]ing Facility: [facility] Address: [address] [address] Performed By: #### 5 7021-8 #### [facility] CLIA [id number] [address] [place] [address] [place] Differential cell count method Nom (Bld) Auto Normal [facility] Comment on above: Order Comment: Speci men Type: BLOOD SPECIMEN [facility] Facility: [facility] Address: [address] [address] Performed By: #### 5 7021-8 #### [facility] CLIA [id number] [address] [place] [address] [place] Eosinophils (Bld) [#/Vol] 0.21 10*3/uL Normal <0.46 [facility] Comment on above: Order Comment: Speci men Type: BLOOD SPECIMEN [facility]ing Facility: [facility] Address: [address] [place] [address] Performed By: #### 5 7021-8 #### [facility] CLIA [id number] [address] [place] [address] [place] Eosinophils/100 WBC (Bld) 2.6 % Normal [facility] Comment on above: Order Comment: Speci men Type: BLOOD SPECIMEN [facility]ing Facility: [facility] Address: [address] [place] [address] Performed By: #### 5 7021-8 #### [facility] CLIA [id number] [address] [place] [address] [place] Erythrocyte distribution width (RBC) [Ratio] 15.5 % High 11.5-15.0 [facility] Comment on above: Order Comment: Speci men Type: BLOOD SPECIMEN [facility]ing Facility: [facility] Address: [address] [place] [address] Performed By: #### 5 7021-8 #### [facility] CLIA [id number] [address] [place] [address] [place] Hematocrit (Bld) [Volume fraction] 34.6 % Low 39.0-51.0 [facility] Comment on above: Order Comment: Speci men Type: BLOOD SPECIMEN [facility]ing Facility: [facility] Address: [address] [place] [address] Performed By: #### 5 7021-8 #### [facility] CLIA [id number] [place] [address] [place] Hemoglobin (Bld) [Mass/Vol] 11.8 g/dL Low 13.0-17.0 [facility] Comment on above: Order Comment: Speci men Type: BLOOD SPECIMEN [facility]ing Facility: [facility] Address: [address] [place] [address] Performed By: #### 5 7021-8 #### [facility] CLIA [id number] [address] [place] [address] [place] Immature granulocytes (Bld) [#/Vol] 0.03 10*3/uL Normal <0.10 [facility] Comment on above: Order Comment: Speci men Type: BLOOD SPECIMEN [facility] Facility: [facility] Address: [address] [place] [address] Performed By: #### 5 7021-8 #### [facility] CLIA [id number] [address] [place] [address] [place] Immature granulocytes/100 WBC (Bld) 0.4 % Normal [facility] Comment on above: Order Comment: Speci men Type: BLOOD SPECIMEN [facility]ing Facility: [facility] Address: [address] [place] [address] Performed By: #### 5 7021-8 #### [facility] CLIA [id number] [address] [place] [address] [place] Lymphocytes (Bld) [#/Vol] 0.71 10*3/uL Low 1.00-4.00 [facility] Comment on above: Order Comment: Speci men Type: BLOOD SPECIMEN [facility]ing Facility: [facility] Address: [address] [place] [address] Performed By: #### 5 7021-8 #### [facility] CLIA [id number] [address] [place] [address] [place] Lymphocytes/100 WBC (Bld) 8.9 % Normal [facility] Comment on above: Order Comment: Speci men Type: BLOOD SPECIMEN [facility]ing Facility: [facility] Address: [address] [place] [address] Performed By: #### 5 7021-8 #### [facility] CLIA [id number] [address] [place] [address] STATES [facility] MCH (RBC) [Entitic mass] 30.6 pg Normal 26.0-34.0 [facility] Comment on above: Order Comment: Speci men Type: BLOOD SPECIMEN [facility] Facility: [facility] Address: [address] [place] [address] Performed By: #### 5 7021-8 #### [facility] CLIA [id number] [address] [place] [address] [place] MCHC (RBC) [Mass/Vol] 34.1 g/dL Normal 30.5-36.0 [facility] Comment on above: Order Comment: Speci men Type: BLOOD SPECIMEN [facility]ing Facility: [facility] Address: [address] [place] [address] Performed By: #### 5 7021-8 #### [facility] CLIA [id number] [address] [place] [address] STATES [facility] MCV (RBC) [Entitic vol] 89.6 fL Normal 80.0-100.0 [facility] Comment on above: Order Comment: Speci men Type: BLOOD SPECIMEN [facility] Facility: [facility] Address: [address] [place] [address] Performed By: #### 5 7021-8 #### [facility] CLIA [id number] [address] [place] [address] [place] Monocytes (Bld) [#/Vol] 0.62 10*3/uL Normal <0.87 [facility] Comment on above: Order Comment: Speci men Type: BLOOD SPECIMEN [facility]ing Facility: [facility] Address: [address] [place] [address] Performed By: #### 5 7021-8 #### [facility] CLIA [id number] [address] [place] [address] Monocytes/100 WBC (Bld) 7.8 % Normal [facility] Comment on above: Order Comment: Speci men Type: BLOOD SPECIMEN [facility] Address: [address] [address] Performed By: #### 5 7021-8 #### [facility] CLIA [id number] [address] [place] [address] [place] Neutrophils (Bld) [#/Vol] 6.37 10*3/uL Normal 1.45-7.50 [facility] Comment on above: Order Comment: Speci men Type: BLOOD SPECIMEN [facility] Address: [address] [place] [address] Performed By: #### 5 7021-8 #### [facility] CLIA [id number] [address] [place] [address] [place] Neutrophils/100 WBC (Bld) 79.9 % Normal [facility] Comment on above: Order Comment: Speci men Type: BLOOD SPECIMEN [facility] Address: [address] [place] [address] Performed By: #### 5 7021-8 #### [facility] CLIA [id number] [address] [place] [address] [place] Nucleated RBC (Bld) [#/Vol] 10*3/uL Normal <0.01 [facility] Comment on above: Order Comment: Speci men Type: BLOOD SPECIMEN [facility] Facility: [facility] Address: [address] [place] [address] Performed By: #### 5 7021-8 #### [facility] CLIA [id number] [address] [place] [address] [place] Nucleated RBC/100 WBC (Bld) [Ratio] 0.0 /100 WBC Normal [facility] Comment on above: Order Comment: Speci men Type: BLOOD SPECIMEN [facility] Address: [address] [place] [address] Performed By: #### 5 7021-8 #### [facility] CLIA [id number] [address] [place] [address] [place] Platelet mean volume (Bld) [Entitic vol] 11.0 fL Normal 9.0-12.7 [facility] Comment on above: Order Comment: Speci men Type: BLOOD SPECIMEN [facility]: [facility] Address: [address] [place] [address] Performed By: #### 5 7021-8 #### [facility] CLIA [id number] [place] [address] [place] Platelets (Bld) [#/Vol] 131 10*3/uL Low 150-400 [facility] Comment on above: Order Comment: Speci men Type: BLOOD SPECIMEN [facility]: [facility] Address: [address] [place] [address] Performed By: #### 5 7021-8 #### [facility] CLIA [id number] [address] [place] [address] [place] RBC (Bld) [#/Vol] 3.86 10*6/uL Low 4.20-6.00 [facility] Comment on above: Order Comment: Speci men Type: BLOOD SPECIMEN [facility] Address: [address] [place] [address] Performed By: #### 5 7021-8 #### [facility] CLIA [id number] [address] [place] [address] [place] WBC (Bld) [#/Vol] 7.97 10*3/uL Normal 3.70-11.00 [facility] Comment on above: Order Comment: Speci men Type: BLOOD SPECIMEN [facility] Address: [address] [place] [address] Performed By: #### 5 7021-8 #### [facility] CLIA [id number] [address] [place] [address] [place] CONSULT PROGon 02-26-2023 CONSULT PROG HNO ID: [id number] Author: Lakeisha Mota APRN.[employer] Service: Pain Management Author Type: Nurse Practitioner [...] Lymph 1.00 - 4.00 k/uL 0.71 (L) Letcher% % 7.8 Abs Letcher <0.87 k/uL 0.62 Eosin% % 2.6 Abs Eosin <0.46 k/uL 0.21 Baso% % 0.4 Abs Baso <0.11 k/uL 0.03 Immature Gran % % 0.4 IMMATURE GRANS (ABS) <0.10 k/uL 0.03 NRBC /100 WBC 0.0 Absolute nRBC <0.01 k/uL <0.01 (more content not included)... Normal [facility] Magnesium SerPl-mCncon 02-26 Magnesium [Mass/Vol] 1.8 mg/dL Normal 1.7-2.3 [facility] Comment on above: Order Comment: Speci men Type: BLOOD SPECIMENOrdering Facility: [facility] Address: [address] [place] [address] Performed By: #### 2 4321-2, 30516-8, 2777-1 ####[facility]ORATORYCLIA [id number] [address] [place] NURSING PROGon 02-26-2023 NURSING PROG HNO ID: [id number] Author: Christie Mayberry RN Service: Nursing Author [...] sent to surgery for further orders. Normal [facility] Phosphate SerPl-mCncon 02-26 Phosphate [Mass/Vol] 1.4 mg/dL Low 2.7-4.8 [facility] Comment on above: Order Comment: Speci men Type: BLOOD SPECIMENOrdering Facility: [facility] Address: [facility] [address] [address] Performed By: #### 2 4321-2, 11666-8, 2777-1 ####[facility]ORATORYCLIA [id number] [address] THERAPY NTon 02-26-2023 THERAPY NT HNO ID: [id number] Author: Ree Gardner, PT Service: Physical Therapy Author Type: Physical Therapist Type: Therapy (PT/OT/Speech/Resp) Filed: 02/26/2023 11:44 AM Note Text: Physical Therapy Treatment SERVICE DATE: 02/26/2023 SERVICE TIME: 1027 to 1051 ROOM: [address] [address] Recommended Discharge Disposition: Subacute/SNF Recommended Discharge Disposition [...] Surgery For Left Inguinal Hernia, S/P Attempted [facility]-Ltr-Qijaw Repair Of Left Femoral Hernia, Excision Of Previously Implanted Mesh, Exploratory Laparotomy, Bilateral TAR, Implantation Of 30 x 30 cm Prolene Mesh 02/23/23 Reason for Hospital Admission: Scheduled Surgery For Left Inguinal Hernia, S/P Attempted Vokx-Pvl-Adxxm Repair Of Left Femoral Hernia, Excision Of [...] Comment Comments: In one level home in [place], [place] Assistance Available: PRN Entry To Home: [...] Muscle Weakness (generalized) Interventions Provided: Therapeutic Activity (71883) Therapeutic Activity (24768) Treatment Minutes: 24 $ Therapeutic Activity (27058) Billed Units: 2 units Training AND Education Provided in: Anatomy and Impact on Deficits, Benefits of In-Hospital Mobility, Disease Spe (more content not included)... Normal [facility] Basic metabolic 2000 panelon 02-25-2023 Anion gap [Moles/Vol] 9 mmol/L Normal 9-18 [facility] Comment on above: Order Comment: John chan Type: BLOOD SPECIMENOrdering Facility: [facility] Address: [address] [place] [address] Performed By: #### 1 9123-9, 2777, 57925-2 ####[facility] LABORATORYCLIA [id number] [place] [address] [place] Calcium [Mass/Vol] 8.6 mg/dL Normal 8.5-10.2 [facility] Comment on above: Order Comment: John chan Type: BLOOD SPECIMENOrdering Facility: [facility] Address: [address] [place] [address] Performed By: #### 1 9123-9, 2777, 31446-5 ####[facility]ORATORYCLIA [id number] [address] [address] [place] Chloride [Moles/Vol] 106 mmol/L High 97-105 [facility] Comment on above: Order Comment: Speci men Type: BLOOD SPECIMENOrdering Facility: [facility] Address: [address] [place] [address] Performed By: #### 1 9123-9, 2777, 36758-4 ####[facility] LABORATORYCLIA [id number] [place] [address] [place] CO2 [Moles/Vol] 24 mmol/L Normal 22-30 [facility] Comment on above: Order Comment: Speci men Type: BLOOD SPECIMENOrdering Facility: [facility] Address: [address] [address] Performed By: #### 1 9123-9, 2777-, 44958-6 ####[facility]ORATORYCLIA [id number] [address] [address] [place] Creatinine [Mass/Vol] 0.57 mg/dL Low 0.73-1.22 [facility] Comment on above: Order Comment: Speci men Type: BLOOD SPECIMENOrdering Facility: [facility] Address: [address] [place] [address] Performed By: #### 1 9123-9, 2777, 02462-0 ####[facility] LABORATORYCLIA [id number] [address] [address] [place] ESTIMATED GLOMERULAR FILTRATION RATE 102 mL/min/1.73m??? Normal >=60 [facility] Comment on above: Order Comment: Speci men Type: BLOOD SPECIMENOrdering Facility: [facility] Address: [address] [place] [address] Result Comment: Trena mated Glomerular Filtration Rate [...] GFR. Performed By: #### 1 9123-9, 2777-, 88405-3 ####[facility]ORATORYCLIA [id number] [address] [address] [place] Glucose [Mass/Vol] 163 mg/dL High 74-99 [facility] Comment on above: Order Comment: Speci men Type: BLOOD SPECIMENOrdering Facility: [facility] Address: [address] [place] [address] Result Comment: The [place] Diabetes [employer] (ADA) provides guidance for cutoff [...] Standards of Medical Care in Diabetes 2016, [place] [employer]. Diabetes Care. 2016.39(Suppl 1). Performed By: #### 1 9123-9, 2777-, 80848-6 ####[facility] LABORATORYCLIA [id number] [place] [address] [place] Potassium [Moles/Vol] 3.4 mmol/L Low 3.7-5.1 [facility] Comment on above: Order Comment: Speci rocio Type: BLOOD SPECIMENOrdering Facility: [facility] Address: [address] [address] Performed By: #### 1 9123-9, 2777, 53592-4 ####[facility]ORATORYCLIA [id number] [place] [address] [place] Sodium [Moles/Vol] 139 mmol/L Normal 136-144 [facility] Comment on above: Order Comment: John chan Type: BLOOD SPECIMENOrdering Facility: [facility] Address: [address] [address] Performed By: #### 1 9123-9, 2777, 52132-2 ####[facility]ORATORYCLIA [id number] [place] [address] [place] Urea nitrogen [Mass/Vol] 9 mg/dL Normal 9-24 [facility] Comment on above: Order Comment: Josyi men Type: BLOOD SPECIMENOrdering Facility: [facility] Address: [address] [address] Performed By: #### 1 9123-9, 2777, 63104-3 ####[facility]ORATORYCLIA [id number] [place] [address] [place] CBC W Auto Differential pane l (Bld)on 02-25-2023 Basophils (Bld) [#/Vol] 10*3/uL Normal <0.11 [facility] Comment on above: Order Comment: Speci men Type: BLOOD SPECIMEN [facility] Address: [address] [place] [address] Performed By: #### 5 7021-8 #### [facility] CLIA [id number] [address] [place] [address] [place] Basophils/100 WBC (Bld) 0.2 % Normal [facility] Comment on above: Order Comment: Speci men Type: BLOOD SPECIMEN [facility] Address: [address] [place] [address] Performed By: #### 5 7021-8 #### [facility] CLIA [id number] [address] [place] [address] [place] Differential cell count method Nom (Bld) Auto Normal [facility] Comment on above: Order Comment: Speci men Type: BLOOD SPECIMEN [facility] Address: [address] [place] [address] Performed By: #### 5 7021-8 #### [facility] CLIA [id number] [address] [place] [address] [place] Eosinophils (Bld) [#/Vol] 0.16 10*3/uL Normal <0.46 [facility] Comment on above: Order Comment: Speci men Type: BLOOD SPECIMEN [facility] Address: [address] [place] [address] Performed By: #### 5 7021-8 #### [facility] CLIA [id number] [address] [place] [address] [place] Eosinophils/100 WBC (Bld) 1.9 % Normal [facility] Comment on above: Order Comment: Speci men Type: BLOOD SPECIMEN [facility] Address: [address] [place] [address] Performed By: #### 5 7021-8 #### [facility] CLIA [id number] [address] [place] [address] [place] Erythrocyte distribution width (RBC) [Ratio] 16.2 % High 11.5-15.0 [facility] Comment on above: Order Comment: Speci men Type: BLOOD SPECIMEN [facility] Address: [address] [place] [address] Performed By: #### 5 7021-8 #### [facility] CLIA [id number] [address] [place] [address] [place] Hematocrit (Bld) [Volume fraction] 38.3 % Low 39.0-51.0 [facility] Comment on above: Order Comment: Speci men Type: BLOOD SPECIMEN [facility] Address: [address] [place] [address] Performed By: #### 5 7021-8 #### [facility] CLIA [id number] [address] [place] [address] [place] Hemoglobin (Bld) [Mass/Vol] 12.2 g/dL Low 13.0-17.0 [facility] Comment on above: Order Comment: Speci men Type: BLOOD SPECIMEN [facility] Address: [address] [place] [address] Performed By: #### 5 7021-8 #### [facility] CLIA [id number] [address] [place] [address] [place] Immature granulocytes (Bld) [#/Vol] 0.05 10*3/uL Normal <0.10 [facility] Comment on above: Order Comment: Speci men Type: BLOOD SPECIMEN [facility]: [facility] Address: [address] [place] [address] Performed By: #### 5 7021-8 #### [facility] CLIA [id number] [address] [place] [address] [place] Immature granulocytes/100 WBC (Bld) 0.6 % Normal [facility] Comment on above: Order Comment: Speci men Type: BLOOD SPECIMEN [facility] Facility: [facility] Address: [address] [place] [address] Performed By: #### 5 7021-8 #### [facility] CLIA [id number] [address] [place] [address] [place] Lymphocytes (Bld) [#/Vol] 0.83 10*3/uL Low 1.00-4.00 [facility] Comment on above: Order Comment: Speci men Type: BLOOD SPECIMEN [facility] Facility: [facility] Address: [address] [place] [address] Performed By: #### 5 7021-8 #### [facility] CLIA [id number] [address] [place] [address] Lymphocytes/100 WBC (Bld) 9.8 % Normal [facility] Comment on above: Order Comment: Speci men Type: BLOOD SPECIMEN [facility]ing Facility: [facility] Address: [address] [place] [address] Performed By: #### 5 7021-8 #### [facility] CLIA [id number] [address] [place] [address] STATES [facility] MCH (RBC) [Entitic mass] 30.2 pg Normal 26.0-34.0 [facility] Comment on above: Order Comment: Speci men Type: BLOOD SPECIMEN [facility] Facility: [facility] Address: [address] [place] [address] Performed By: #### 5 7021-8 #### [facility] CLIA [id number] [address] [place] [address] [place] MCHC (RBC) [Mass/Vol] 31.9 g/dL Normal 30.5-36.0 [facility] Comment on above: Order Comment: Speci men Type: BLOOD SPECIMEN [facility]ing Facility: [facility] Address: [address] [place] [address] Performed By: #### 5 7021-8 #### [facility] CLIA [id number] [address] [place] [address] MCV (RBC) [Entitic vol] 94.8 fL Normal 80.0-100.0 [facility] Comment on above: Order Comment: Speci men Type: BLOOD SPECIMEN [facility] Facility: [facility] Address: [address] [address] Performed By: #### 5 7021-8 #### [facility] CLIA [id number] [address] [place] [address] [place] Monocytes (Bld) [#/Vol] 0.68 10*3/uL Normal <0.87 [facility] Comment on above: Order Comment: Speci men Type: BLOOD SPECIMEN [facility]ing Facility: [facility] Address: [address] [place] [address] Performed By: #### 5 7021-8 #### [facility] CLIA [id number] [address] [place] [address] [place] Monocytes/100 WBC (Bld) 8.0 % Normal [facility] Comment on above: Order Comment: Speci men Type: BLOOD SPECIMEN [facility] Facility: [facility] Address: [address] [place] [address] Performed By: #### 5 7021-8 #### [facility] CLIA [id number] [address] [place] [address] [place] Neutrophils (Bld) [#/Vol] 6.77 10*3/uL Normal 1.45-7.50 [facility] Comment on above: Order Comment: Speci men Type: BLOOD SPECIMEN [facility]ing Facility: [facility] Address: [address] [place] [address] Performed By: #### 5 7021-8 #### [facility] CLIA [id number] [address] [place] [address] [place] Neutrophils/100 WBC (Bld) 79.5 % Normal [facility] Comment on above: Order Comment: Speci men Type: BLOOD SPECIMEN [facility]ing Facility: [facility] Address: [address] [place] [address] Performed By: #### 5 7021-8 #### [facility] CLIA [id number] [address] [place] [address] [place] Nucleated RBC (Bld) [#/Vol] 10*3/uL Normal <0.01 [facility] Comment on above: Order Comment: Speci men Type: BLOOD SPECIMEN Ordering Facility: [facility] Address: [address] [address] Performed By: #### 5 7021-8 #### [facility] CLIA [id number] [address] [place] [address] [place] Nucleated RBC/100 WBC (Bld) [Ratio] 0.0 /100 WBC Normal [facility] Comment on above: Order Comment: Speci men Type: BLOOD SPECIMEN Ordering Facility: [facility] Address: [address] [place] [address] Performed By: #### 5 7021-8 #### [facility] CLIA [id number] [address] [place] [address] [place] Platelet mean volume (Bld) [Entitic vol] 10.8 fL Normal 9.0-12.7 [facility] Comment on above: Order Comment: Speci men Type: BLOOD SPECIMEN Ordering Facility: [facility] Address: [address] [place] [address] Performed By: #### 5 7021-8 #### [facility] CLIA [id number] [address] [place] [address] [place] Platelets (Bld) [#/Vol] 129 10*3/uL Low 150-400 [facility] Comment on above: Order Comment: Speci men Type: BLOOD SPECIMEN Ordering Facility: [facility] Address: [address] [place] [address] Result Comment: No c lot detected.Platelet count confirmed by manual review of peripheral blood smear. Performed By: #### 5 7021-8 #### [facility] CLIA [id number] [address] [place] [address] [place] RBC (Bld) [#/Vol] 4.04 10*6/uL Low 4.20-6.00 [facility] Comment on above: Order Comment: Speci men Type: BLOOD SPECIMEN Ordering Facility: [facility] Address: [address] [place] [address] Performed By: #### 5 7021-8 #### [facility] CLIA [id number] [address] [place] [address] [place] WBC (Bld) [#/Vol] 8.51 10*3/uL Normal 3.70-11.00 [facility] Comment on above: Order Comment: Speci men Type: BLOOD SPECIMEN Ordering Facility: [facility] Address: [facility] [place] [id number] Performed By: #### 5 7021-8 #### [facility] CLIA [id number] [address] [place] [id number] [place] CONSULT PROGon 02-25-2023 CONSULT PROG HNO ID: [id number] Author: Norberto Kennedy PA-C Service: Pain Management Author Type: Physician Residence Life Director Type: Consult Progress Note Filed: 02/25/2023 8:26 AM Note Text: PERIPHERAL NERVE CATHETER PROGRESS NOTE PATIENT NAME: Yoni Ramirez SERVICE DATE: 02/25/2023 SERVICE TIME: 8:24 AM ASSESSMENT Yoni Ramirez is a 77 year old male who is POD# 2, S/P .Attempted rmnj-zxw-gietn repair of L femoral hernia Excision of previously implanted mesh Exploratory laparotomy Bilateral TAR Implantation of 30 x 30 cm prolene mesh Patient reports good pain control 0/10 with rest. BTAPS running ropiv 0.2% @ 6 ml Q 30 min. PLAN Continue current pain regimen, will follow. SUBJECTIVE CHIEF COMPLAINT: POD# 1, S/P .Attempted caui-nls-lfhic repair of L femoral hernia Excision of [...] which included preparing to see the patient, vgzf-bh-luxu patient care, completing clinical documentation, obtaining and/or reviewing separately obtained history, and performing a medically appropriate examination. SIGNATURE: Norberto Kennedy PA-C PATIENT NAME: Yoni Ramirez DATE: February 25, 2023 TIME: 8:24 AM PAGER/CONTACT #: [facility] [phone] [facility] Magnesium SerPl-mCncon 02-25 Magnesium [Mass/Vol] 1.9 mg/dL Normal 1.7-2.3 [facility] Comment on above: Order Comment: Speci men Type: BLOOD SPECIMENOrdering Facility: [facility] Address: [place] [id number] Performed By: #### 1 9123-9, 2777-1, 10470-1 ####[facility] [id number] [address] NURSING PROGon 02-25-2023 NURSING PROG HNO ID: [id number] Author: Ritchie Wright RN Service: ? Author Type: Registered Nurse Type: Nursing Progress Note Filed: 02/25/2023 7:24 PM Note Text: 0918: ambulated with assistance to chair C/o dizziness after rising BP:120/59 pulse 73 94% 3L. Pt. Drowsy, oriented to person, place, time delirious/confused with situation. Surgical team made aware. 1050: Pt disconnected Left tap block. Block stopped pain management made aware. Normal [facility] NURSING PROG HNO ID: [id number] Author: Christie Mayberry RN Service: Nursing Author Type: Registered Nurse Type: Nursing Progress Note Filed: 02/25/2023 4:44 AM Note Text: 0443: Pt's oxygen sating at 90% on 2L. Denies SOB. Placed on 3L NC until CPAP arrives. Pt's home unit unable to hook to O2. IS use encouraged. Normal [facility] Phosphate SerPl-mCncon 02-25 Phosphate [Mass/Vol] 1.4 mg/dL Low 2.7-4.8 [facility] Comment on above: Order Comment: Speci men Type: BLOOD SPECIMENOrdering Facility: [facility] Address: [place] [address] Performed By: #### 1 9123-9, 2777, 30948-1 ####[facility] [id number] [address] BRIEF OP NOTon 02-24-2023 BRIEF OP NOT HNO ID: [id number] Author: Sergio Webster MD Service: Critical Care Author Type: Resident Type: Brief Op Note Filed: 02/23/2023 10:28 PM Note Text: BRIEF OPERATIVE / PROCEDURE NOTE LOG ID: [id number] SURGERY/PROCEDURE DATE: 02/23/2023 INCISION/PROCEDURE START TIME: 3:01 PM INCISION CLOSE/PROCEDURE END TIME: 10:28 PM SURGEON(S)/PROCEDURALIST(S) AND INTERIOR HORTICULTURIST(S): Surgeon(s) and Role: * Donato Bishop MD - Primary * Jacky Curiel MD - Resident - Assisting * Sergio Webster MD - Resident - Assisting * Carolina Lorenz MD - Resident - Assisting * Loyd Floyd MD - Fellow No Additional Staff SURGERY/PROCEDURE(S): Attempted gnhy-aiq-cdcrg repair of L femoral hernia Excision of [...] February 23, 2023 TIME: 10:24 PM Normal [facility] Basic metabolic 2000 panelon 02-24-2023 Anion gap [Moles/Vol] 8 mmol/L Low 9-18 [facility] Comment on above: Order Comment: Speci men Type: BLOOD SPECIMEN Ordering Facility: [facility] Address: [address] [place] [address] Performed By: #### 2 4321-2, 29111-2 #### [facility] CLIA [id number] [address] [place] [address] [place] Calcium [Mass/Vol] 8.6 mg/dL Normal 8.5-10.2 [facility] Comment on above: Order Comment: Speci men Type: BLOOD SPECIMEN Ordering Facility: [facility] Address: [address] [place] [address] Performed By: #### 2 4321-2, #### [facility] CLIA [id number] [address] [place] [address] [place] Chloride [Moles/Vol] 105 mmol/L Normal 97-105 [facility] Comment on above: Order Comment: Speci men Type: BLOOD SPECIMEN Ordering Facility: [facility] Address: [address] [place] [address] Performed By: #### 2 4321-2, #### [facility] CLIA [id number] [address] [place] [address] [place] CO2 [Moles/Vol] 27 mmol/L Normal 22-30 [facility] Comment on above: Order Comment: Speci men Type: BLOOD SPECIMEN Ordering Facility: [facility] Address: [address] [place] [address] Performed By: #### 2 4322, #### [facility] CLIA [id number] [address] [place] [address] [place] Creatinine [Mass/Vol] 0.61 mg/dL Low 0.73-1.22 [facility] Comment on above: Order Comment: Speci men Type: BLOOD SPECIMEN Ordering Facility: [facility] Address: [address] [place] [address] Performed By: #### 2 4322, #### [facility] CLIA [id number] [address] [place] [address] [place] ESTIMATED GLOMERULAR FILTRATION RATE 100 mL/min/1.73m??? Normal >=60 [facility] Comment on above: Order Comment: Speci men Type: BLOOD SPECIMEN Ordering Facility: [facility] Address: [address] [place] [address] Result Comment: Trena mated Glomerular Filtration Rate [...] actual GFR. Performed By: #### 2 #### [facility] CLIA [id number] [address] [place] [address] [place] Glucose [Mass/Vol] 163 mg/dL High 74-99 [facility] Comment on above: Order Comment: John chan Type: BLOOD SPECIMEN Ordering Facility: [facility] Address: [address] [place] [address] Result Comment: The [place] Diabetes [employer] (ADA) provides guidance for cutoff [...] Standards of Medical Care in Diabetes 2016, [place] [employer]. Diabetes Care. 2016.39(Suppl 1). Performed By: #### 2 #### [facility] CLIA [id number] [address] [place] [address] [place] Potassium [Moles/Vol] 3.8 mmol/L Normal 3.7-5.1 [facility] Comment on above: Order Comment: John chan Type: BLOOD SPECIMEN Ordering Facility: [facility] Address: [address] [address] Performed By: #### 2 #### [facility] CLIA [id number] [address] [place] [address] [place] Sodium [Moles/Vol] 140 mmol/L Normal 136-144 [facility] Comment on above: Order Comment: John chan Type: BLOOD SPECIMEN Ordering Facility: [facility] Address: [address] [place] [address] Performed By: #### 2 #### [facility] CLIA [id number] [address] [place] [address] [place] Urea nitrogen [Mass/Vol] 11 mg/dL Normal 9-24 [facility] Comment on above: Order Comment: Speci men Type: BLOOD SPECIMEN Ordering Facility: [facility] Address: [address] [place] [address] Performed By: #### 2 4321-2, 38483-4 #### [facility] CLIA [id number] [address] [place] [address] [place] CBC panel Auto (Bld)on 02-24 Erythrocyte distribution width (RBC) [Ratio] 16.0 % High 11.5-15.0 [facility] Comment on above: Order Comment: Speci men Type: BLOOD SPECIMEN Ordering Facility: [facility] Address: [address] [place] [address] Performed By: #### 5 8410-2 #### [facility] CLIA [id number] [address] [place] [address] [place] Hematocrit (Bld) [Volume fraction] 38.3 % Low 39.0-51.0 [facility] Comment on above: Order Comment: Speci men Type: BLOOD SPECIMEN Ordering Facility: [facility] Address: [address] [place] [address] Performed By: #### 5 8410-2 #### [facility] CLIA [id number] [address] [place] [address] [place] Hemoglobin (Bld) [Mass/Vol] 12.8 g/dL Low 13.0-17.0 [facility] Comment on above: Order Comment: Speci men Type: BLOOD SPECIMEN Ordering Facility: [facility] Address: [address] [place] [address] Performed By: #### 5 8410-2 #### [facility] CLIA [id number] [address] [place] [address] [place] MCH (RBC) [Entitic mass] 30.3 pg Normal 26.0-34.0 [facility] Comment on above: Order Comment: Speci men Type: BLOOD SPECIMEN Ordering Facility: [facility] Address: [address] [address] Performed By: #### 5 8410-2 #### [facility] CLIA [id number] [address] [place] [address] [place] MCHC (RBC) [Mass/Vol] 33.4 g/dL Normal 30.5-36.0 [facility] Comment on above: Order Comment: Speci men Type: BLOOD SPECIMEN Ordering Facility: [facility] Address: [address] [address] Performed By: #### 5 8410-2 #### [facility] CLIA [id number] [address] [place] [address] [place] MCV (RBC) [Entitic vol] 90.8 fL Normal 80.0-100.0 [facility] Comment on above: Order Comment: Speci men Type: BLOOD SPECIMEN Ordering Facility: [facility] Address: [address] [address] Performed By: #### 5 8410-2 #### [facility] CLIA [id number] [address] [place] [address] [place] Nucleated RBC (Bld) [#/Vol] 10*3/uL Normal <0.01 [facility] Comment on above: Order Comment: Speci men Type: BLOOD SPECIMEN Ordering Facility: [facility] Address: [address] [address] Performed By: #### 5 8410-2 #### [facility] CLIA [id number] [address] [place] [address] [place] Platelet mean volume (Bld) [Entitic vol] 11.3 fL Normal 9.0-12.7 [facility] Comment on above: Order Comment: Speci men Type: BLOOD SPECIMEN Ordering Facility: [facility] Address: [address] [address] Performed By: #### 5 8410-2 #### [facility] CLIA [id number] [address] [place] [address] [place] Platelets (Bld) [#/Vol] 146 10*3/uL Low 150-400 [facility] Comment on above: Order Comment: Speci men Type: BLOOD SPECIMEN Ordering Facility: [facility] Address: [address] [place] [address] Performed By: #### 5 8410-2 #### [facility] CLIA [id number] [address] [place] [address] [place] RBC (Bld) [#/Vol] 4.22 10*6/uL Normal 4.20-6.00 [facility] Comment on above: Order Comment: Speci men Type: BLOOD SPECIMEN Ordering Facility: [facility] Address: [address] [place] [address] Performed By: #### 5 8410-2 #### [facility] CLIA [id number] [address] [place] [address] [place] WBC (Bld) [#/Vol] 10.56 10*3/uL Normal 3.70-11.00 [facility] Comment on above: Order Comment: Speci men Type: BLOOD SPECIMEN Ordering Facility: [facility] Address: [address] [place] [address] Performed By: #### 5 8410-2 #### [facility] CLIA [id number] [address] [place] [address] CONSULT PROGon 02-24-2023 CONSULT PROG HNO ID: [id number] Author: Norberto Kennedy PA-C Service: Pain Management Author Type: Physician Residence Life Director Type: Consult Progress Note Filed: 02/24/2023 8:51 AM Note Text: PERIPHERAL NERVE CATHETER PROGRESS NOTE PATIENT NAME: Yoni Ramirez SERVICE DATE: 02/24/2023 SERVICE TIME: 8:37 AM ASSESSMENT Ynoi Ramirez is a 77 year old male who is POD# 1, S/P .Attempted bmqp-evt-plbfd repair of L femoral hernia Excision of [...] SUBJECTIVE CHIEF COMPLAINT: POD# 1, S/P .Attempted dvdx-qtf-qegzb repair of L femoral hernia Excision of [...] which included preparing to see the patient, zccj-pn-dmef patient care, completing clinical documentation, obtaining and/or reviewing separately obtained history, performing a medically appropriate examination, and care coordination (not separately reported). SIGNATURE: Norberto Kennedy PA-C PATIENT NAME: Yoni Ramirez DATE: February 24, 2023 TIME: 8:37 AM PAGER/CONTACT #: EMMIE [phone] Normal [facility] Magnesium SerPl-ncon 02-24 Magnesium [Mass/Vol] 1.8 mg/dL Normal 1.7-2.3 [facility] Comment on above: Order Comment: Speci men Type: BLOOD SPECIMEN Ordering Facility: [facility] Address: [address] [place] [address] Performed By: #### 2 4321-2, 54111-6 #### [facility] CLIA [id number] [address] [place] [address] OF [facility] NURSING PROGon 02-24-2023 NURSING PROG HNO ID: [id number] Author: Aminah Dos Santos RN Service: ? [...] Infusing as ordered . Ice provided. Normal [facility] THERAPY NTon 02-24-2023 THERAPY NT HNO ID: [id number] Author: Ree Gardner, PT Service: Physical Therapy Author Type: Physical Therapist Type: Therapy (PT/OT/Speech/Resp) Filed: 02/24/2023 4:39 PM Note Text: Physical Therapy Evaluation SERVICE DATE: 02/24/2023 SERVICE TIME: 1600 to 1633 ROOM: [place] [address] Recommended Discharge Disposition: Home Recommended Discharge Disposition [...] Surgery For Left Inguinal Hernia, S/P Attempted Stoy-Icj-Evvpy Repair Of Left Femoral Hernia, Excision Of Previously Implanted Mesh, Exploratory Laparotomy, Bilateral TAR, Implantation Of 30 x 30 cm Prolene Mesh 02/23/23 Reason for Hospital Admission: Scheduled Surgery For Left Inguinal Hernia, S/P Attempted Vieu-Duc-Zkisz Repair Of Left Femoral Hernia, Excision Of [...] Comment Comments: In one level home in [place], [place] Assistance Available: PRN Entry To Home: [...] Reduced mobility-other Interventions Provided: Evaluation, Therapeutic Activity (69516) $ Evaluation-Moderate (84105) Billed Units: 1 unit Therapeutic Activity (62090) Treatment Minutes: 15 $ Therapeutic Activity (87360) Billed Units: 1 unit Training AND Education Provided in: Anatomy and Impact on Deficits, Assistive Device Use, Benefits of In-Hospital Mobility, Disease Specific Education, Expected Functional Level The Following Therapeutic Skills Were Used: Activity Dosing, Cues for Sequencing/Proper Technique for Activity, Cuing Verbal, Muscl (more content not included)... Normal [facility] THERAPY NT HNO ID: [id number] Author: VIKA Hall/Adriel Service: Occupational Therapy Author Type: Occupational Therapist Type: Therapy (PT/OT/Speech/Resp) Filed: 02/24/2023 1:09 PM Note Text: Occupational Therapy Evaluation SERVICE DATE: 02/24/2023 SERVICE TIME: 40 to 18 ROOM: [place] [address] Scheduled Surgery For Left Inguinal Hernia, S/P Attempted Gpnq-Qsr-Djjgs Repair Of Left Femoral Hernia, Excision Of [...] Shoe Horn, Long Handled Sponge, Wheeled Walker, Child Psychometrist, Sock Aid, Shower Chair OT 6 Clicks Score: 17 Precautions/Activity Restrictions: Abdominal, Bed/Chair Alarm, Fall Risk, Lines/Tubes/Drains, Diet Restrictions, Other: See Comments (Clear Liquid Diet, 2L 02 this date) Current Hospital Course: Scheduled Surgery For Left Inguinal Hernia, S/P Attempted Kkux-Bei-Ngwsk Repair Of Left Femoral Hernia, Excision Of Previously Implanted Mesh, Exploratory Laparotomy, Bilateral TAR, Implantation Of 30 x 30 cm Prolene Mesh 02/23/23 Reason for Hospital Admission: Scheduled Surgery For Left Inguinal Hernia, S/P Attempted Qqhl-Xcg-Wwkxy Repair Of Left Femoral Hernia, Excision Of [...] Comment Comments: In one level home in [place], [place] Assistance Available: PRN Entry To Home: [...] situation 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 [facility] THERAPY NT HNO ID: [id number] Author: VANI Hall Service: Occupational Therapy Author Type: Occupational Therapist Type: Therapy (PT/OT/Speech/Resp) Filed: 02/24/2023 12:40 PM Note Text: OCCUPATIONAL THERAPY MISSED VISIT SERVICE DATE: 02/24/2023 SERVICE TIME: 0832 to 0832 ROOM: [place] [address] Patient not seen due to other service at bedside. Will see as able. SIGNATURE: VANI Hall PATIENT NAME: Yoni Ramirez DATE: February 24, 2023 TIME: 8:37 AM [facility] ANES PRE-OPon 02-23-2023 ANES PRE-OP HNO ID: [id number] Author: Stefanie Hitchcock APRN.CIRCUS AGENT Service: Anesthesiology Author Type: Nurse Mushroom Sorter Grader Type: Anesthesia Preprocedure Evaluation Filed: 02/23/2023 2:26 [...] and consent discussed: yes. Patient / Responsible Green Party agrees to proceed: yes Patient / Surrogate [...] 48 hours of Surgery/Procedure. SIGNATURE: Stefanie Hitchcock APRN.CIRCUS AGENT PATIENT NAME: Yoni Ramirez DATE: February 23, 2023 TIME: 2:24 PM CSN: [id number] [facility] PT EDon 02-23-2023 PT ED HNO ID: [id number] Author: Cecilia Jensen RN Service: ? Author [...] (RECOMMENDATION): None Electronically Signed By: Cecilia Jensen [facility] PT ED HNO ID: [id number] Author: Cecilia Jensen RN Service: ? Author [...] (RECOMMENDATION): None Electronically Signed By: Cecilia Jensen [facility] SURGICAL PATHOLOGYon 023 CASE REPORT [facility] Comment on above: Order Comment: Speci men Type: BLOOD SPECIMEN Ordering Facility: [facility] Address: [address] [place] [id number] Result Comment: Surg ical Pathology Report Case: [id number] Authorizing Provider: Donato Bishop MD Collected: 02/23/2023 05:38 PM Ordering Location: [facility] Received: 02/26/2023 08:20 AM Operating Room Pathologist: Keara Hernandez MD Specimen: RETROPERITONEUM BIOPSY, peritoneal mass Performed By: #### 2 4320-2, #### [facility] CLIA [id number] [address] [place] [address] [place] CLINICAL HISTORY w/mesh Normal [facility] Comment on above: Order Comment: Speci men Type: BLOOD SPECIMEN Ordering Facility: [facility] Address: [address] [place] [address] Result Comment: Pre-op diagnosis: Unilateral recurrent inguinal hernia without obstruction or gangrene [K40.91] Performed By: #### 2 4320-, #### [facility] CLIA [id number] [address] [place] [address] OF [facility] FINAL DIAGNOSIS [facility] Comment on above: Order Comment: Speci men Type: BLOOD SPECIMEN Ordering Facility: [facility] Address: [address] [place] [address] Result Comment: Ramirez kellogg, biopsy: - Degenerating fibroadipose tissue with dystrophic calcification. Performed By: #### 2 4320-11, #### [facility] CLIA [id number] [address] [place] [address] OF [facility] FINAL PERFORMING LAB Normal [facility] Comment on above: Order Comment: Speci men Type: BLOOD SPECIMEN Ordering Facility: [facility] Address: [address] [place] [address] Result Comment: Diag nostic interpretation performed at [facility], [address] [address] CLIA# [id number] Plisse Machine Operator: Keara Hernandez M.D. Performed By: #### 2 4320-2, #### [facility] CLIA [id number] [address] [place] [address] [place] GROSS DESCRIPTION Normal [facility] Comment on above: Order Comment: Speci men Type: BLOOD SPECIMEN Ordering Facility: [facility] Address: [address] [place] [address] Result Comment: A. R ETROPERITONEUM BIOPSY Received [...] 2023 10:38 AM Gross examination performed at [facility], [address] [place] [address] CLIA # [id number] Performed By: #### 2 4321-2, 69209-4 #### [facility] CLIA [id number] [place] TYPE + SCREENon 02-23-2023 ABO A Normal [facility] Comment on above: Order Comment: Speci men Type: BLOOD SPECIMENOrdering Facility: [facility] Address: [address] [place] [address] Performed By: #### T SCR ####[facility] [id number] [address] OF [facility] Performed By: #### C ONABO ####[facility] [id number] [place] [address] [place] HISTORICAL AB SCR STATUS Negative [facility] Comment on above: Order Comment: Speci men Type: BLOOD SPECIMENOrdering Facility: [facility] Address: [address] [place] [address] Performed By: #### T SCR ####[facility] [id number] [place] [address] [place] Rh Nom (Bld) Positive [facility] Comment on above: Order Comment: Speci men Type: BLOOD SPECIMENOrdering Facility: [facility] Address: [address] [place] [address] Performed By: #### T SCR ####[facility] [id number] [address] Performed By: #### C ONABO ####[facility] [id number] [place] [id number] [facility] TYPE AND SCREEN EXPIRATION 02/26/2023 23:59 Normal [facility] Comment on above: Order Comment: Speci men Type: BLOOD SPECIMENOrdering Facility: [facility] Address: [address] [place] [address] Performed By: #### T SCR ####[facility] [id number] [place] [id number] [facility] CBC AUTO DIFFon 02-21-2023 BASO # 0.0 103/ul Normal 0.0-0.1 [facility] Comment on above: Performed By: #### C BC ####[facility] [address] [place], [place] [address]Dr. Alex Eddy Basophils/100 WBC (Bld) 0.5 % Normal 0.2-2.0 [facility] Comment on above: Performed By: #### C BC ####[facility] [address] [place], [place] [address]Dr. Alex Eddy EO # 0.2 103/ul Normal 0.0-0.7 [facility] Comment on above: Performed By: #### C BC ####[facility] [address] [place], [place] [address]Dr. Alex Eddy Eosinophils/100 WBC (Bld) 4.0 % Normal 0.9-7.0 [facility] Comment on above: Performed By: #### C BC ####[facility] [address] [place], [place] [address]Dr. Alex Eddy Erythrocyte distribution width (RBC) [Ratio] 16.3 % Critically high 11.0-15.0 [facility] Comment on above: Performed By: #### C BC ####[facility] [address] [place], [place] [address]Dr. Alex Eddy Hematocrit (Bld) [Volume fraction] 43.3 % Normal 42.0-54.0 [facility] Comment on above: Performed By: #### C BC ####[facility] [address] [place] [id number]. Alex Eddy Hemoglobin (Bld) [Mass/Vol] 14.0 g/dL Normal 14.0-18.0 [facility] Comment on above: Performed By: #### C BC ####[facility] [address] [place] [id number]. Alex Eddy IG # 0.02 10e3/ul Normal 0.00-0.03 [facility] Comment on above: Performed By: #### C BC ####[facility] [address] [place] [address]Dr. Alex Surjit IG % 0.4 % Normal 0.0-0.5 [facility] Comment on above: Performed By: #### C BC ####[facility] [address] [place] [address]Dr. Alex Surjit LYMPH # 1.1 103/ul Critically low 1.2-3.8 [facility] Comment on above: Performed By: #### C BC ####[facility] [address] [place] [address]Dr. Alex Surjit Lymphocytes/100 WBC (Bld) 19.5 % Critically low 20.5-60.0 [facility] Comment on above: Performed By: #### C BC ####[facility] [address] [place] [address]Dr. Gretelmickey Eddy MANUAL DIFF REQ NO Normal [facility] Comment on above: Performed By: #### C BC ####[facility] [address] [place] [id number]. Alex Surjit MCH (RBC) [Entitic mass] 30.1 pg Normal 25.9-34.0 [facility] Comment on above: Performed By: #### C BC ####[facility] [address] [place] [id number]. Alex Surjit MCHC (RBC) [Mass/Vol] 32.3 g/dL Normal 29.9-35.2 [facility] Comment on above: Performed By: #### C BC ####[facility] [address] [place] [id number]. Alex Eddy MCV (RBC) [Entitic vol] 93.1 fL Normal 80.0-94.0 [facility] Comment on above: Performed By: #### C BC ####[facility] [address] [place] [id number]. Alex Eddy MONO # 0.7 103/ul Normal 0.3-0.8 [facility] Comment on above: Performed By: #### C BC ####[facility] [address] [place] [id number]. Alex Eddy Monocytes/100 WBC (Bld) 11.9 % Normal 1.7-12.0 [facility] Comment on above: Performed By: #### C BC ####[facility] [address] [place], [place] [id number]. Alex Eddy NEUT # 3.5 103/ul Normal 1.4-6.5 [facility] Comment on above: Performed By: #### C BC ####[facility] [address] [place], [place] [id number]. Alex Eddy Neutrophils/100 WBC (Bld) 63.7 % Normal 43.0-75.0 [facility] Comment on above: Performed By: #### C BC ####[facility] [address] [place], [place] [id number]. Alex Eddy Platelet mean volume (Bld) [Entitic vol] 10.9 fL Normal 9.5-13.5 [facility] Comment on above: Performed By: #### C BC ####[facility] [address] [place] [id number]. Alex Eddy PLT 168 103/ul Normal 150-450 [facility] Comment on above: Performed By: #### C BC ####[facility] [address] [place] [id number]. Gretelmickey Surjit RBC 4.65 106/ul Critically low 4.70-6.10 [facility] Comment on above: Performed By: #### C BC ####[facility] [address] [place], [place] [address]Rx. Alex Eddy WBC 5.5 103/ul Normal 4.0-11.0 [facility] Comment on above: Performed By: #### C BC ####[facility] [address] [place], [place] [address]FaBrian Eddy CRPon 02-21-2023 CRP 0.3 mg/dL Normal <=1.0 [facility] Comment on above: Performed By: #### C RP #### [facility] [address] [place], [place] [address] Dr. Alex Edd[facility] 37 mm/hr Critically high <=20 [facility] Comment on above: Performed By: #### S EDR #### [facility] [address] [place] [address] [address] Alex Eddy CBC W Auto Differential pane l (Bld)on 02-14-2023 Basophils (Bld) [#/Vol] 0.05 10*3/uL <0.11 k/uL [facility] Basophils/100 WBC (Bld) 0.7 % [facility] Differential cell count method Nom (Bld) Auto [facility] Eosinophils (Bld) [#/Vol] 0.29 10*3/uL <0.46 k/uL [facility] Eosinophils/100 WBC (Bld) 4.3 % [facility] Erythrocyte distribution width (RBC) [Ratio] 16.7 % High 11.5 - 15.0 % [facility] Hematocrit (Bld) [Volume fraction] 44.7 % 39.0 - 51.0 % [facility] Hemoglobin (Bld) [Mass/Vol] 14.4 g/dL 13.0 - 17.0 g/dL [facility] Immature granulocytes (Bld) [#/Vol] 0.07 10*3/uL <0.10 k/uL [facility] Immature granulocytes/100 WBC (Bld) 1.0 % [facility] Lymphocytes (Bld) [#/Vol] 1.37 10*3/uL 1.00 - 4.00 k/uL [facility] Lymphocytes/100 WBC (Bld) 20.3 % [facility] MCH (RBC) [Entitic mass] 30.3 pg 26.0 - 34.0 pg [facility] MCHC (RBC) [Mass/Vol] 32.2 g/dL 30.5 - 36.0 g/dL [facility] MCV (RBC) [Entitic vol] 93.9 fL 80.0 - 100.0 fL [facility] Monocytes (Bld) [#/Vol] 0.91 10*3/uL High <0.87 k/uL [facility] Monocytes/100 WBC (Bld) 13.5 % [facility] Neutrophils (Bld) [#/Vol] 4.06 10*3/uL 1.45 - 7.50 k/uL [facility] Neutrophils/100 WBC (Bld) 60.2 % [facility] Nucleated RBC (Bld) [#/Vol] <0.01 k/uL [facility] Nucleated RBC/100 WBC (Bld) [Ratio] 0.0 /100 WBC [facility] Platelet mean volume (Bld) [Entitic vol] 10.8 fL 9.0 - 12.7 fL [facility] Platelets (Bld) [#/Vol] 191 10*3/uL 150 - 400 k/uL [facility] RBC (Bld) [#/Vol] 4.76 10*6/uL 4.20 - 6.0 0 m/uL [facility] WBC (Bld) [#/Vol] 6.75 10*3/uL 3.70 - 11. 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[facility] Transcribe Date/Time: Dec 07 2022 9:43A Dictated by : EVANS ADAM MD This examination was interpreted and the report reviewed and electronically signed by: EVANS ADAM MD on Dec 07 2022 10:19AM EST [id number] Normal [facility] NURSING PROGon 12-06-2022 NURSING PROG HNO ID: [id number] Author: Melanie Pierre RN Service: Nursing Author [...] DATE: December 06, 2022 TIME: 9:07 AM [facility] ALLIED HEALTHon 12-04-2022 ALLIED HEALTH HNO ID: [id number] Author: ROSY Campoverde Service: Radiology Author Type: Jewel Staker Type: Allied Health Filed: 12/04/2022 4:34 PM [...] ROSY Campoverde December 04, 2022 4:33 PM [facility] MRI PELVIS WO/W IVCONon 11-16 MRI PELVIS WO/W IVCON * * *Final Report* * * DATE OF EXAM: Dec 04 2022 4:56PM [facility] 0742 - MRI PELVIS WO/W IVCON [...] Left hernia contains a loop of colon 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: ROSANA Transcribe Date/Time: Dec 07 2022 9:43A Dictated by : EVANS ADAM MD This examination was interpreted and the report reviewed and electronically signed by: EVANS ADAM MD on Dec 07 2022 10:19AM EST [id number] Normal [facility] NURSING PROGon 12-04-2022 NURSING PROG HNO ID: [id number] Author: Sima Craig RN Service: Nursing Author [...] SIGNATURE: Sima Craig RN PATIENT NAME: Yoni aRmirez DATE: December 04, 2022 TIME: 2:36 PM Normal [facility] AFP (TUMOR MARKER)on 023 AFP, Serum, Tumor Marker <1.8 Normal 0.0-8.4 [facility] Comment on above: Result Comment: The [employer] Electrochemiluminescence Immunoassay (ECLIA) . Values obtained with different assay methods or kits cannot be used interchangeably. Results cannot be interpreted as absolute evidence of the presence or absence of malignant disease. . This test is not interpretable in females. Performed By: #### A FP. #### [facility] [address] [place] [address] Dr. Alex Eddy HCG QUANT TUMOR MARKERon HCG QNT TUMOR MARKER <1 Normal 0-3 [facility] Comment on above: Result Comment: The [employer] Electrochemiluminescence Immunoassay (ECLIA) . The [employer] [...] developed and its performance characteristics determined by [employer]. It has not been cleared or approved by the Food and Drug Administration for use as a tumor marker. . This test is not interpretable as a tumor marker in females. Performed By: #### H CGTMOR #### [facility] [address] [place] [address] Dr. Alex Eddy CREATININEon 11-06-2022 Creatinine [Mass/Vol] 0.60 mg/dL Critically low 0.70-1.30 [facility] Comment on above: Performed By: #### C SILVANA #### [facility] [address] [place] [address] [address] Alex Eddy EGFR-AF FAROESE >60 Normal >=60 [facility] Comment on above: Performed By: #### C SILVANA #### [facility] [address] [place] [address] [address] Alex Eddy EGFR-NON AF FAROESE >60 Normal >=60 [facility] Comment on above: Performed By: #### C SILVANA #### [facility] [address] [place] [address] CHEST W CONon [...] MIKE LYNCH Date: 2022-11-06 15:28 Normal [facility] LDHon 11-06-2022 LDH 158 U/L Normal 85-227 [facility] Comment on above: Performed By: #### L #### [facility] [address] [place] [address] [address] Alex Eddy US SCROTUMon 10-11-2022 US [...] by: CASSIDY SAMUEL Date: 2022-10-11 16:29 Normal [facility] US SCROTUMon 08-06-2022 US SCROTUM [...] by: CASSIDY SAMUEL Date: 2022-08-06 16:20 Normal [facility] Vital Signs Date Time Vital Sign Value Performing Clinician Facility 06-04-2024 09:21-0400 Diastolic blood pressure 78 mm[Hg] Radha Lue [facility] 06-04-2024 09:21-0400 Mean blood pressure 99 mm[Hg] Radha Lue [facility] 06-04-2024 09:21-0400 Systolic blood pressure 142 mm[Hg] Radha Lue [facility] 06-04-2024 09:03-0400 Blood Pressure Location Radha Lue [facility] 06-04-2024 09:03-0400 Heart rate 56 /min Radha Lue [facility] 06-04-2024 09:03-0400 Systolic blood pressure 146 mm[Hg] Radha Whitten [facility] 05-20-2024 12:58-0400 Body mass index (BMI) [Ratio] 31.95 kg/m2 TUNG Hernandez MD Work Phone: [facility] 05-20-2024 12:58-0400 Body temperature 98.4 [degF] TUNG Hernandez MD Work Phone: [facility] 05-20-2024 12:58-0400 Body weight 101 kg TUNG Hernandez MD Work Phone: [facility] 05-20-2024 12:58-0400 Diastolic blood pressure 80 mm[Hg] TUNG Hernandez MD Work Phone: [facility] 05-20-2024 12:58-0400 Heart rate 59 /min TUNG Hernandez MD Work Phone: [facility] 05-20-2024 12:58-0400 Respiratory rate 18 /min TUNG Hernandez MD Work Phone: [facility] 05-20-2024 12:58-0400 SaO2% (BldA) [Mass fraction] 96 % TUNG Hernandez MD Work Phone: [facility] 05-20-2024 12:58-0400 Systolic blood pressure 147 mm[Hg] TUNG Hernandez MD Work Phone: [facility] 04-01-2024 10:04-0400 Body temperature 97 [degF] Donato Bishop MD Work Phone: [facility] 04-01-2024 10:04-0400 Diastolic blood pressure 67 mm[Hg] Donato Bishop MD Work Phone: [facility] 04-01-2024 10:04-0400 Heart rate 58 /min Donato Bishop MD Work Phone: [facility] 04-01-2024 10:04-0400 SaO2% (BldA) [Mass fraction] 96 % Donato Bishop MD Work Phone: [facility] 04-01-2024 10:04-0400 Systolic blood pressure 162 mm[Hg] Donato Bishop MD Work Phone: [facility] 02-12-2024 10:44-0400 Body height 177.8 cm [facility] 02-12-2024 10:44-0400 Body mass index (BMI) [Ratio] 32.8 kg/m2 [facility] 02-12-2024 10:44-0400 Body weight 103.92 kg [facility] 02-12-2024 10:44-0400 Diastolic blood pressure 71 mm[Hg] [facility] 02-12-2024 10:44-0400 Heart rate 53 /min [facility] 02-12-2024 10:44-0400 Respiratory rate 12 /min [facility] 02-12-2024 10:44-0400 Systolic blood pressure 124 mm[Hg] [facility] 11-28-2023 10:32-0500 Blood Pressure Location Radha Lue [facility] 11-28-2023 10:32-0500 Diastolic blood pressure 84 mm[Hg] Radha Lue [facility] 11-28-2023 10:32-0500 Heart rate 106 /min Radha Lue [facility] 11-28-2023 10:32-0500 Respiratory rate 16 /min Radha Lue [facility] 11-28-2023 10:32-0500 Systolic blood pressure 135 mm[Hg] Radha Lue [facility] 11-20-2023 13:16-0500 Body temperature 97.3 [degF] NA Engeler MD Work Phone: [facility] 11-20-2023 13:16-0500 Body weight 103.9 kg TUNG Hernandez MD Work Phone: [facility] 11-20-2023 13:16-0500 Diastolic blood pressure 76 mm[Hg] TUNG Hernandez MD Work Phone: [facility] 11-20-2023 13:16-0500 Heart rate 59 /min TUNG Hernandez MD Work Phone: [facility] 11-20-2023 13:16-0500 Respiratory rate 16 /min TUNG Hernandez MD Work Phone: [facility] 11-20-2023 13:16-0500 SaO2% (BldA) [Mass fraction] 96 % TUNG Hernandez MD Work Phone: [facility] 11-20-2023 13:16-0500 Systolic blood pressure 145 mm[Hg] TUNG Hernandez MD Work Phone: [facility] 10-11-2023 11:00-0500 Body height 177.8 cm Bro Ball Other [employer] Other 10-11-2023 11:00-0500 Body mass index (BMI) [Ratio] 32.51 kg/m2 Bro Ball Other [employer] Other 10-11-2023 11:00-0500 Body weight 102.79 kg Bro Ball Other [employer] Other 10-11-2023 11:00-0500 Diastolic blood pressure 76 mm[Hg] Bro Ball Other [employer] Other 10-11-2023 11:00-0500 Respiratory rate 12 /min Bro Ball Other [employer] Other 10-11-2023 11:00-0500 Systolic blood pressure 167 mm[Hg] Bro Ball Other [facility] Other 08-15-2023 08:46-0400 Blood Pressure Location Radha Lue [facility] 08-15-2023 08:46-0400 Diastolic blood pressure 76 mm[Hg] Radha Lue [facility] 08-15-2023 08:46-0400 Heart rate 80 /min Radha Lue [facility] 08-15-2023 08:46-0400 Respiratory rate 16 /min Radha Lue [facility] 08-15-2023 08:46-0400 Systolic blood pressure 132 mm[Hg] Radha Lue [facility] 07-13-2023 10:00-0400 Body height 177.8 cm Bro Ball Other [facility] Other 07-13-2023 10:00-0400 Body mass index (BMI) [Ratio] 32.57 kg/m2 Bro Ball Other [facility] Other 07-13-2023 10:00-0400 Body weight 102.97 kg Bro Ball Other [facility] Other 07-13-2023 10:00-0400 Diastolic blood pressure 70 mm[Hg] Bro Ball Other [facility] Other 07-13-2023 10:00-0400 Respiratory rate 12 /min Bro Ball Other [facility] Other 07-13-2023 10:00-0400 Systolic blood pressure 143 mm[Hg] Bro Ball Other [employer] Other 05-15-2023 13:24-0400 Body temperature 97.5 [degF] TUNG Hernandez MD Work Phone: [facility] 05-15-2023 13:24-0400 Body weight 103.42 kg TUNG Hernandez MD Work Phone: [facility] 05-15-2023 13:24-0400 Diastolic blood pressure 77 mm[Hg] TUNG Hernandez MD Work Phone: [facility] 05-15-2023 13:24-0400 Heart rate 55 /min TUNG Hernandez MD Work Phone: [facility] 05-15-2023 13:24-0400 Respiratory rate 16 /min TUNG Hernandez MD Work Phone: [facility] 05-15-2023 13:24-0400 SaO2% (BldA) [Mass fraction] 96 % TUNG Hernandez MD Work Phone: [facility] 05-15-2023 13:24-0400 Systolic blood pressure 153 mm[Hg] TUNG Hernandez MD Work Phone: [facility] 04-11-2023 13:30-0400 Body height 177.8 cm Bro Ball Other [employer] Other 04-11-2023 13:30-0400 Body mass index (BMI) [Ratio] 32.88 kg/m2 Bro Ball Other [facility] Other 04-11-2023 13:30-0400 Body weight 103.97 kg Bro Ball Other [employer] Other 04-11-2023 13:30-0400 Diastolic blood pressure 72 mm[Hg] Bro Ball Other [employer] Other 04-11-2023 13:30-0400 Respiratory rate 12 /min Bro Ball Other [employer] Other 04-11-2023 13:30-0400 Systolic blood pressure 124 mm[Hg] Bro Ball Other [employer] Other 02-21-2023 15:15-0400 Body height 177.8 cm Bro Ball Other [employer] Other 02-21-2023 15:15-0400 Body mass index (BMI) [Ratio] 34.89 kg/m2 Bro Ball Other [employer] Other 02-21-2023 15:15-0400 Body weight 110.32 kg Bro Ball Other [employer] Other 02-21-2023 15:15-0400 Diastolic blood pressure 76 mm[Hg] Bro Ball Other [employer] Other 02-21-2023 15:15-0400 Respiratory rate 12 /min Bro Ball Other [employer] Other 02-21-2023 15:15-0400 Systolic blood pressure 165 mm[Hg] Bro Ball Other [employer] Other 02-14-2023 13:30-0400 Body height 177.8 cm Pacc 2 Work Phone: [facility] 02-14-2023 13:30-0400 Body temperature 98.1 [degF] Pacc 2 Work Phone: [facility] 02-14-2023 13:30-0400 Body weight 109.77 kg Pacc 2 Work Phone: [facility] 02-14-2023 13:30-0400 Diastolic blood pressure 81 mm[Hg] Pacc 2 Work Phone: [facility] 02-14-2023 13:30-0400 Heart rate 61 /min Pacc 2 Work Phone: [facility] 02-14-2023 13:30-0400 Respiratory rate 16 /min Pacc 2 Work Phone: [facility] 02-14-2023 13:30-0400 SaO2% (BldA) [Mass fraction] 96 % Pacc 2 Work Phone: [facility] 02-14-2023 13:30-0400 Systolic blood pressure 164 mm[Hg] Pacc 2 Work Phone: [facility] 02-05-2023 17:00-0400 Body height 177.8 cm Bro Ball Other [employer] Other 02-05-2023 17:00-0400 Body mass index (BMI) [Ratio] 34.89 kg/m2 Bro Ball Other [employer] Other 02-05-2023 17:00-0400 Body weight 110.32 kg Bro Ball Other [employer] Other 02-05-2023 17:00-0400 Diastolic blood pressure 79 mm[Hg] Bro Ball Other [employer] Other 02-05-2023 17:00-0400 Respiratory rate 12 /min Bro Ball Other [employer] Other 02-05-2023 17:00-0400 Systolic blood pressure 175 mm[Hg] Bro Ball Other [employer] Other 01-29-2023 11:00-0400 Body height 177.8 cm Bro Ball Other [employer] Other 01-29-2023 11:00-0400 Body mass index (BMI) [Ratio] 34.89 kg/m2 Bro Ball Other [facility] Other 01-29-2023 11:00-0400 Body weight 110.32 kg Bro Ball Other [facility] Other 01-29-2023 11:00-0400 Diastolic blood pressure 80 mm[Hg] Bro Ball Other [facility] Other 01-29-2023 11:00-0400 Respiratory rate 12 /min Bro Ball Other [facility] Other 01-29-2023 11:00-0400 Systolic blood pressure 166 mm[Hg] Bro Ball Other [facility] Other 01-24-2023 08:41-0400 Blood Pressure Location CIERRA YESSENIA [facility] 01-24-2023 08:41-0400 Diastolic blood pressure 69 mm[Hg] CIERRA YESSENIA [facility] 01-24-2023 08:41-0400 Heart rate 54 /min CIERRA YESSENIA [facility] 01-24-2023 08:41-0400 Systolic blood pressure 142 mm[Hg] CIERRA YESSENIA [facility] 01-11-2023 09:34-0400 Blood Pressure Location CIERRA YESSENIA [facility] 01-11-2023 09:34-0400 Diastolic blood pressure 82 mm[Hg] CIERRA YESSENIA [facility] 01-11-2023 09:34-0400 Heart rate 52 /min CIERRA YESSENIA [facility] 01-11-2023 09:34-0400 Systolic blood pressure 172 mm[Hg] CIERRA YESSENIA [facility] 12-28-2022 09:17-0400 Blood Pressure Location CIERRA YESSENIA [facility] 12-28-2022 09:17-0400 Diastolic blood pressure 66 mm[Hg] CIERRA YESSENIA [facility] 12-28-2022 09:17-0400 Heart rate 71 /min CIERRA YESSENIA [facility] 12-28-2022 09:17-0400 Systolic blood pressure 128 mm[Hg] CIERRA YESSENIA [facility] 12-26-2022 10:11-0400 Body height 177.8 cm Donato Bishop MD Work Phone: [facility] 12-26-2022 10:11-0400 Body temperature 97.3 [degF] Donato Bishop MD Work Phone: [facility] 12-26-2022 10:110400 Body weight 110.22 kg Donato Bishop MD Work Phone: [facility] 12-26-2022 10:11-0400 Diastolic blood pressure 61 mm[Hg] Donato Bishop MD Work Phone: [facility] 12-26-2022 10:11-0400 Heart rate 57 /min Donato Bishop MD Work Phone: [facility] 12-26-2022 10:11-0400 Respiratory rate 19 /min Donato Bishop MD Work Phone: [facility] 12-26-2022 10:11-0400 SaO2% (BldA) [Mass fraction] 97 % Donato Bishop MD Work Phone: [facility] 12-26-2022 10:11-0400 Systolic blood pressure 179 mm[Hg] Donato Bishop MD Work Phone: [facility] 12-14-2022 09:24-0500 Blood Pressure Location CIERRA ZHU [facility] 12-14-2022 09:24-0500 Diastolic blood pressure 71 mm[Hg] CIERRA ZHU [facility] 12-14-2022 09:24-0500 Systolic blood pressure 136 mm[Hg] CIERRA ZHU [facility] 12-12-2022 13:03-0500 Body temperature 96.4 [degF] TUNG Hernandez MD Work Phone: [facility] 12-12-2022 13:03-0500 Body weight 110.68 kg TUNG Hernandez MD Work Phone: [facility] 12-12-2022 13:03-0500 Diastolic blood pressure 74 mm[Hg] TUNG Hernandez MD Work Phone: [facility] 12-12-2022 13:03-0500 Heart rate 57 /min TUNG Hernandez MD Work Phone: [facility] 12-12-2022 13:03-0500 Respiratory rate 18 /min TUNG Hernandez MD Work Phone: [facility] 12-12-2022 13:03-0500 SaO2% (BldA) [Mass fraction] 98 % TUNG Hernandez MD Work Phone: [facility] 12-12-2022 13:03-0500 Systolic blood pressure 169 mm[Hg] TUNG Hernandez MD Work Phone: [facility] 11-30-2022 09:18-0500 Blood Pressure Location CIERRA YESSENIA [facility] 11-30-2022 09:18-0500 Diastolic blood pressure 58 mm[Hg] CIERRA YESSENIA [facility] 11-30-2022 09:18-0500 Heart rate 57 /min CIERRA YESSENIA [facility] 11-30-2022 09:18-0500 Systolic blood pressure 128 mm[Hg] CIERRA YESSENIA [facility] 11-23-2022 08:37-0500 Blood Pressure Location CIERRA YESSENIA [facility] 11-23-2022 08:37-0500 Diastolic blood pressure 68 mm[Hg] CIERRA YESSENIA [facility] 11-23-2022 08:37-0500 Heart rate 57 /min CIERRA YESSENIA [facility] 11-23-2022 08:37-0500 Systolic blood pressure 127 mm[Hg] CIERRA YESSENIA [facility] 11-09-2022 12:58-0500 Body temperature 96.69 [degF] TUNG Hernandez MD Work Phone: [facility] 11-09-2022 12:58-0500 Body weight 111.58 kg TUNG Hernandez MD Work Phone: [facility] 11-09-2022 12:58-0500 Diastolic blood pressure 75 mm[Hg] TUNG Hernandez MD Work Phone: [facility] 11-09-2022 12:58-0500 Heart rate 62 /min TUNG Hernandez MD Work Phone: [facility] 11-09-2022 12:58-0500 Respiratory rate 18 /min TUNG Hernandez MD Work Phone: [facility] 11-09-2022 12:58-0500 SaO2% (BldA) [Mass fraction] 98 % TUNG Hernandez MD Work Phone: [facility] 11-09-2022 12:58-0500 Systolic blood pressure 174 mm[Hg] NA Jose WHARTON Work Phone: [facility] 11-08-2022 10:58-0500 Blood Pressure Location Radha Lue [facility] 11-08-2022 10:58-0500 Diastolic blood pressure 79 mm[Hg] Radha Lue [facility] 11-08-2022 10:58-0500 Heart rate 68 /min Radha Lue [facility] 11-08-2022 10:58-0500 Systolic blood pressure 139 mm[Hg] Radha Lue [facility] 10-04-2022 08:32-0500 Blood Pressure Location Radha Lue [facility] 10-04-2022 08:32-0500 Diastolic blood pressure 66 mm[Hg] Radha Lue [facility] 10-04-2022 08:32-0500 Heart rate 57 /min Radha Lue [facility] 10-04-2022 08:32-0500 Systolic blood pressure 151 mm[Hg] Radha Lue [facility] 07-13-2022 13:20-0400 Body temperature 96.69 [degF] TUNG Hernandez MD Work Phone: [facility] 07-13-2022 13:20-0400 Body weight 108.41 kg TUNG Hernandez MD Work Phone: [facility] 07-13-2022 13:20-0400 Diastolic blood pressure 81 mm[Hg] TUNG Hernandez MD Work Phone: [facility] 07-13-2022 13:20-0400 Heart rate 56 /min TUNG Hernandez MD Work Phone: [facility] 07-13-2022 13:20-0400 Respiratory rate 18 /min TUNG Hernandez MD Work Phone: [facility] 07-13-2022 13:20-0400 SaO2% (BldA) [Mass fraction] 96 % TUNG Hernandez MD Work Phone: [facility] 07-13-2022 13:20-0400 Systolic blood pressure 164 mm[Hg] TUNG Hernandez MD Work Phone: [facility] 03-28-2022 08:36-0400 Blood Pressure Location Sushant Freedman Jr. [facility] 03-28-2022 08:36-0400 Diastolic blood pressure 78 mm[Hg] Sushant Freedman Jr. [facility] 03-28-2022 08:36-0400 Heart rate 62 /min Sushant Freedman Jr. [facility] 03-28-2022 08:36-0400 Respiratory rate 16 /min Sushant Freedman Jr. [facility] 03-28-2022 08:36-0400 Systolic blood pressure 144 mm[Hg] Sushant Freedman Jr. [facility] Encounters Encounter Date Encounter Type Care Provider Facility Start: 12-10-2024 ambulatory Radha KermitBrian Granadosmelchor Facility:[facility] Start: 06-04-2024 End: 06-04-2024 ambulatory Radha Whitten Facility:[facility] Start: 06-04-2024 End: 06-04-2024 Patient encounter procedure Radha CarmenBrian Fish [facility] Start: 05-20-2024 End: 05-20-2024 ambulatory BRO CHAVEZ Facility:[facility] Start: 05-20-2024 End: 05-20-2024 Patient encounter procedure Aaliyah Hernandez MD Work Phone: Radiation Oncology Comment on above: Malignant neoplasm o f prostate (HCC) (Primary Dx) Start: 05-13-2024 End: 05-13-2024 ambulatory BRO CHAVEZ Facility:[facility] Start: 04-09-2024 End: 04-09-2024 ambulatory [facility] Work Phone: Start: 04-09-2024 End: 04-09-2024 Patient encounter procedure [facility] Work Phone: Start: 04-01-2024 End: 04-01-2024 ambulatory David Pycraft RT(R) Radiology Ct Scan Comment on above: Radiology CT Start: 04-01-2024 End: 04-01-2024 Patient encounter procedure David Pycraft RT(R) Radiology Ct Scan Comment on above: S/P repair of ventra l hernia (Primary Dx) Start: 04-01-2024 End: 04-01-2024 Subsequent hospital visit by physician [facility] Rad[facility] Ct Scan Comment on above: Ventral incisional h ernia [K43.2] Start: 03-24-2024 End: 03-24-2024 ambulatory DEBBIE ANDRE Not Available Start: 03-11-2024 End: 03-11-2024 ambulatory ROSY HGIH Not Available Start: 02-12-2024 End: 02-12-2024 ambulatory [facility] Work Phone: Start: 02-12-2024 End: 02-12-2024 Patient encounter procedure [facility] Work Phone: Start: 01-30-2024 Non-patient / Non-visit [facility] Work Phone: Start: 12-12-2023 Non-patient / Non-visit [facility] Work Phone: Start: 11-28-2023 End: 11-28-2023 ambulatory Radha Whitten Facility:[facility] Start: 11-28-2023 End: 11-28-2023 Patient encounter procedure Radha Whitten [facility] Start: 11-20-2023 End: 11-20-2023 ambulatory Aaliyah HERNANDEZ Facility:[facility] Start: 11-20-2023 End: 11-20-2023 Patient encounter procedure Aaliyah Hernandez MD Work Phone: Radiation Oncology Comment on above: Malignant neoplasm o f prostate (HCC) (Primary Dx) Start: 11-13-2023 End: 11-13-2023 ambulatory BRO CHAVEZ Facility:[facility] Start: 10-16-2023 End: 10-16-2023 ambulatory Bro Chavez Other [facility] Other Start: 10-16-2023 Telephone encounter Bro Chavez FP Aaliyah [facility] Start: 10-11-2023 End: 10-11-2023 ambulatory Bro Chavez Other [facility] Other Start: 10-11-2023 Patient encounter procedure Bro Chavez [facility] Start: 10-11-2023 Telephone encounter Bro Chavez [facility] Start: 10-04-2023 End: 10-04-2023 ambulatory Bro Chavez Other [facility] Other Start: 10-04-2023 Telephone encounter Bro Chavez [facility] Start: 10-02-2023 End: 10-02-2023 ambulatory Bro Chavez Other [facility] Other Start: 10-02-2023 Telephone encounter Bro Chavez [facility] Start: 08-22-2023 End: 08-22-2023 ambulatory Bro Chavez Other [facility] Other Start: 08-22-2023 Telephone encounter Bro Chavez [facility] Start: 08-21-2023 End: 08-21-2023 ambulatory Bro Chavez Other [facility] Other Start: 08-21-2023 Office outpatient vi sit 15 minutes Bro Chavez [facility] Start: 08-21-2023 Telephone encounter Bro SANTOS [facility] Start: 08-15-2023 End: 08-15-2023 ambulatory Radha Whitten Facility:[facility] Start: 08-15-2023 End: 08-15-2023 Patient encounter procedure Radha Whtiten [facility] Start: 07-24-2023 End: 07-24-2023 ambulatory Bro Chavez Other [facility] Other Start: 07-24-2023 Telephone encounter Bro SANTOS [facility] Start: 07-16-2023 End: 07-16-2023 ambulatory Bro Chavez Other [facility] Other Start: 07-16-2023 Telephone encounter Bro SANTOS [facility] Start: 07-13-2023 End: 07-13-2023 ambulatory Bro Chavez Other [facility] Other Start: 07-13-2023 Office outpatient vi sit 25 minutes Bro Chavez [facility] Start: 07-13-2023 Telephone encounter Bro SANTOS [facility] Start: 05-15-2023 End: 05-15-2023 Patient encounter procedure G Raz Hernandez MD Work Phone: Radiation Oncology Comment on above: Malignant neoplasm o f prostate (HCC) (Primary Dx) Start: 04-11-2023 End: 04-11-2023 ambulatory Bro Chavez Other [facility] Other Start: 04-11-2023 Office outpatient vi sit 25 minutes Bro Chavez [facility] Start: 04-10-2023 End: 04-10-2023 ambulatory Bro Chavez Other [facility] Other Start: 04-10-2023 Telephone encounter Bro SANTOS [facility] Start: 03-15-2023 End: 03-15-2023 ambulatory Bro Chavez Other [facility] Other Start: 03-15-2023 Initial nursing faci lity care/day 35 minutes Bro Chavez [facility] Start: 02-24-2023 End: 02-24-2023 ambulatory Bro Chavez Other [facility] Other Start: 02-24-2023 Telephone encounter Bro SANTOS [facility] Start: 02-23-2023 Evaluation and management of inpatient DONATO BISHOP Facility:[facility] Start: 02-21-2023 End: 02-22-[address] BRO CHAVEZ [facility] Other Start: 02-21-2023 Office outpatient vi sit 15 minutes Bro Chavez [facility] Start: 02-14-2023 End: 02-14-2023 Admission to establishment [facility] Work Phone: [facility] Start: 02-14-2023 End: 02-14-[facility] Work Phone: [facility] Comment on above: Preop examination (P rimary Dx); Primary hypertension; Prostate cancer (HCC); Obesity, Class I, BMI 30-34.9; Obstructive sleep apnea syndrome Start: 02-14-2023 End: 02-14-2023 [facility] Start: 02-06-2023 End: 02-06-2023 ambulatory Bro Chavez Other [facility] Other Start: 02-06-2023 Telephone encounter Bro Chavez [facility] Start: 02-05-2023 End: 02-05-2023 ambulatory Bro Chavez Other [facility] Other Start: 02-05-2023 Office outpatient vi sit 15 minutes Bro Chavez [facility] Start: 01-29-2023 End: 01-29-2023 ambulatory Bro Chavez Other [facility] Other Start: 01-29-2023 Encounter for other preprocedural examination Bro Chavez [facility] Start: 01-29-2023 Office outpatient vi sit 25 minutes Bro Chavez [facility] Start: 01-24-2023 End: 01-24-2023 Patient encounter procedure CIERRA ZHU [facility] Start: 01-11-2023 End: 01-11-2023 Patient encounter procedure CIERRA ZHU [facility] Start: 12-28-2022 End: 12-28-2022 Patient encounter procedure CIERRA ZHU [facility] Start: 12-27-2022 Orders Only Marya mcneil MD Work Phone: General Surgery Start: 12-26-2022 End: 12-26-2022 Patient encounter procedure Donato Bishop MD Work Phone: General Surgery Comment on above: Recurrent left ingui nal hernia (Primary Dx) Start: 12-14-2022 End: 12-14-2022 Patient encounter procedure CIERRA ZHU [facility] Start: 12-12-2022 End: 12-12-2022 Patient encounter procedure Aaliyah Hernandez MD Work Phone: Radiation Oncology Comment on above: Malignant neoplasm o f prostate (HCC) (Primary Dx) Start: 12-06-2022 ambulatory BRO Villasenor y:[facility] Start: 12-06-2022 End: 12-06-2022 Subsequent hospital visit by physician [facility] 2 (I-Stat/3t) Work Phone: Radiology Comment on above: Left lower quadrant abdominal swelling, mass and lump [R19.04] Start: 12-04-2022 ambulatory VANDANA HERNANDEZ Facility:[facility] Start: 12-04-2022 End: 12-04-2022 Subsequent hospital visit by physician [facility] (I-Stat/1.5t) Radiology Comment on above: Prostate cancer (HCC ) [C61] Start: 11-30-2022 End: 11-30-2022 Patient encounter procedure CIERRA ZHU [facility] Start: 11-23-2022 End: 11-23-2022 Patient encounter procedure CIERRA ZHU [facility] Start: 11-16-2022 Patient encounter procedure [facility] Provider [facility] Start: 11-09-2022 End: 11-09-2022 Patient encounter procedure Aaliyah Hernandez MD Work Phone: Radiation Oncology Comment on above: Prostate cancer (HCC ) (Primary Dx); Abdominal mass, left lower quadrant Start: 11-08-2022 End: 11-08-2022 Patient encounter procedure Radha Whitten [facility] Start: 11-06-2022 End: 11-07-2022 ambulatory RADHA WHITTEN . Facility:[facility] Start: 10-11-2022 End: 10-12-2022 ambulatory RADHA WHITTEN . Facility:[facility] Start: 10-04-2022 End: 10-04-2022 Patient encounter procedure Radha Whitten [facility] Start: 08-05-2022 End: 08-06-[address] BRO CHAVEZ Facility:[facility] Start: 07-13-2022 End: 07-13-2022 Patient encounter procedure Aaliyah Hernnadez MD Work Phone: Radiation Oncology Comment on above: Prostate cancer (HCC ) (Primary Dx) Start: 04-14-[address] BRO CHAVEZ Facili ty:[facility] Start: 03-30-2022 End: 03-30-2022 Patient encounter procedure Aaliyah Hernandez MD Work Phone: Radiation Oncology Comment on above: Prostate cancer (HCC ) (Primary Dx) Start: 03-28-2022 End: 03-28-2022 Patient encounter procedure Sushant Freedman Jr. [facility] Procedures Date Procedure Procedure Detail Performing Clinician Start: 02-23-2023 Antibody screen DONATO AWAN Comment on above: Order Comment: Speci men Type: BLOOD SPECIMENOrdering Facility: [facility] Address: [address] [place] [id number] Performed By: #### T SCR ####GILSUM BLOOD BANKIA [id number] [place] [id number] [facility] Start: 02-23-2023 Inguinal hernia (disorder) Radha Whitten [...] Author Start: 03-01-2026 DIABETES SCREEN DIABETES SCREEN [facility] Start: 03-01-2026 Diabetes Screening Diabetes Screenserina g [facility] Start: 04-07-2025 End: 04-07-2025 Patient encounter procedure 04/07/2025 10:00 AM EDT Office Visit General Surgery [facility] [address] [place] [address] [place] [address] [place] [address] Est Pt: 2 yr follow up, s/p open left anterior groin mesh removal (plug and patch) and TAR 03/[id number] General Surgery Comment on above: Est Pt: 2 yr follow up, s/p open left anterior groin mesh removal (plug and patch) and TAR 03/[id number] Start: 12-14-2024 DIABETES SCREEN DIABETES SCREEN [facility] Start: 11-20-2024 End: 02-19-2025 Prostate specific Ag [Mass/volume] in Serum or Plasma PROSTATE-SPECIFIC ANTIGEN DIAGNOSTIC Lab Routine Malignant neoplasm of prostate (HCC) Expected: 11/20/2024, Expires: 02/19/2025 [facility] Work Phone: Comment on above: Expected: 11/20/2024 , Expires: 02/19/2025 Start: 11-19-2024 End: 11-19-2024 Patient encounter procedure 11/19/2024 11:15 AM EST Office Visit Radiation Oncology [address] [address] Aaliyah Hernandez MD [address] [place] [address] 5 Month Follow Up Radiation Oncology Comment on above: 5 Month Follow Up Start: 11-11-2024 End: 11-11-2024 Patient encounter procedure 11/11/2024 11:00 AM EST Office Visit [facility] [address] [address] lab [facility] Comment on above: lab Start: 06-15-2024 Influenza vaccination Influenza Vacc ine (#1) [facility] Start: 05-20-2024 End: 08-19-2024 Prostate specific Ag [Mass/volume] in Serum or Plasma PSA/PROSTSPECAG DIAG Lab Routine Malignant neoplasm of prostate (HCC) Expected: 05/20/2024, Expires: 08/19/2024 [facility] Work Phone: Comment on above: Expected: 05/20/2024 , Expires: 08/19/2024 Start: 05-20-2024 End: 05-20-2024 Patient encounter procedure 05/20/2024 1:15 PM EDT Office Visit Radiation Oncology [address] [place] [address] Aaliyah Hernandez MD [address] [address] 5 Month Follow Up Radiation Oncology Comment on above: 5 Month Follow Up Start: 05-13-2024 End: 05-13-2024 Patient encounter procedure 05/13/2024 1:00 PM EDT Office Visit [facility] [address] [place] [address] [place] [address] lab followup [facility] Comment on above: lab followup Start: 11-15-2023 End: 01-15-2024 Prostate specific Ag [Mass/volume] in Serum or Plasma PSA/PROSTSPECAG DIAG Lab Routine Malignant neoplasm of prostate (HCC) Expected: 11/15/2023, Expires: 01/15/2024 [facility] Work Phone: Comment on above: Expected: 11/15/2023 , Expires: 01/15/2024 Start: 10-15-2023 Advance Directive Discussion Advance Directive Discussion [facility] Start: 10-15-2023 Behavioral Health Screening Behavioral Health Screening [facility] Start: 10-15-2023 Depression Assessment Depression Ass essment [facility] Start: 06-15-2023 Covid-19 Vaccine ( season) Covid-19 Vaccine ( season) [facility] Start: 06-15-2023 Covid-19 Vaccine ( season) Covid-19 Vaccine ( season) [facility] Start: 06-15-2023 Influenza vaccination C [facility] Start: 05-11-2023 End: 07-11-2023 Prostate specific Ag [Mass/volume] in Serum or Plasma PSA/PROSTSPECAG DIAG Lab Routine Malignant neoplasm of prostate (HCC) Expected: 05/11/2023, Expires: 07/11/2023 [facility] Work Phone: Comment on above: Expected: 05/11/2023 , Expires: 07/11/2023 Start: 03-30-2023 Adult depression screening assessment DEPRESSION SCREENING [facility] Start: 02-14-2023 End: 04-16-2023 Basic metabolic 2000 panel - Serum or Plasma [facility] Work Phone: Comment on above: Expected: 02/14/2023 , Expires: 04/16/2023 Start: 01-10-2023 End: 03-12-2023 Prostate specific Ag [Mass/volume] in Serum or Plasma PSA/PROSTSPECAG DIAG Lab Routine Prostate cancer (HCC) Expected: 01/10/2023, Expires: 03/12/2023 [facility] Work Phone: Comment on above: Expected: 01/10/2023 , Expires: 03/12/2023 Start: 11-12-2022 End: 01-12-2023 Prostate specific Ag [Mass/volume] in Serum or Plasma PSA/PROSTSPECAG DIAG Lab Routine Prostate cancer ([facility]) Expected: 11/12/2022, Expires: 01/12/2023 [facility] Work Phone: Comment on above: Expected: 11/12/2022 , Expires: 01/12/2023 Start: 10-15-2022 ADVANCE DIRECTIVE DISCUSSION ADVANCE DIRECTIVE DISCUSSION [facility] Start: 10-15-2022 DEPRESSION ASSESSMENT DEPRESSION ASS ESSMENT [facility] Start: 06-30-2022 End: 08-30-2022 Prostate specific Ag [Mass/volume] in Serum or Plasma PSA/PROSTSPECAG DIAG Lab Routine Prostate cancer ([facility]) Expected: 06/30/2022 (Approximate), Expires: 08/30/2022 [facility] Work Phone: Comment on above: Expected: 06/30/2022 (Approximate), Expires: 08/30/2022 Start: 06-15-2022 Influenza vaccination [facility] Start: 10-15-2021 ADVANCE DIRECTIVE DISCUSSION ADVANCE DIRECTIVE DISCUSSION [facility] Start: 10-15-2021 DEPRESSION ASSESSMENT DEPRESSION ASS ESSMENT [facility] Start: 08-29-2021 COVID-19 VACCINE (4 - Booster for Pfizer series) COVID-19 VACCINE (4 - Booster for Pfizer series) [facility] Start: 08-29-2021 COVID-19 VACCINE (4 - Pfizer series) COVID-19 VACCINE (4 - Pfizer series) [facility] Start: 05-23-2018 Pneumococcal Vaccine : 65+ (2 of 2 - PCV) Pneumococcal Vaccine: 65+ (2 of 2 - PCV) [facility] Start: 07-24-2014 Urine microalbumin profile DTaP,Tdap,Td Vaccine (1 - Tdap) [facility] Start: 2012 PNEUMOCOCCAL: 65+ (1 - PCV) PNEUMOCOCCAL: 65+ (1 - PCV) [facility] Start: 2007 RSV Vaccine (1 - 1-d ose 60+ series) RSV Vaccine (1 - 1-dose 60+ series) [facility] Start: 1997 SHINGRIX VACCINE (1 of 2) SHINGRIX VACCINE (1 of 2) [facility] Start: 1992 COLOGUARD (FIT-DNA) COLOGUARD (FIT-D NA) [facility] Start: 1992 Colonoscopy COLONOSCOPY [facility] Start: 1992 COLORECTAL CANCER SCREENING COLORECTAL CANCER SCREENING [facility] Start: [address] COLONOGRAPHY [facility] Start: 1992 FECAL OCCULT BLOOD FECAL OCCULT BLOO D [facility] Start: 1992 SIGMOIDOSCOPY SIGMOIDOSCOPY [facility] Start: 1982 LIPID SCREEN LIPID SCREEN [facility] Start: 1966 SHINGRIX VACCINE (1 of 2) SHINGRIX VACCINE (1 of 2) [facility] Start: 1966 Urine microalbumin profile [facility] Start: 1965 ANNUAL PCP TEAM CHIEF RELAY TESTER MOOSE DISEASE VISIT ANNUAL PCP TEAM CHRONIC DISEASE VISIT [facility] Start: 1965 Anxiety Screening Anxiety Screening [facility] Start: 1965 BP CONTROLLED (<130/80) BP CONTROLLE D (<130/80) [facility] Start: 1965 Depression Screening Depression Scre ening [facility] Start: 1965 HEPATITIS C SCREENING HEPATITIS C [facility] Start: 1965 Hepatitis C screening Hepatitis C [facility] Start: 1953 PNEUMOCOCCAL: 65+ (1 - PCV) PNEUMOCOCCAL: 65+ (1 - PCV) [facility] Start: 1952 COVID-19 VACCINE (#1) COVID-19 VACCI NE (#1) [facility] Start: 1947 COVID-19 VACCINE (#1) COVID-19 VACCI NE (#1) [facility] CT Abdomen and Pelvi s WO contrast CT ABD/PEL WO IVCON Radiology Routine Ventral incisional hernia 04/01/2024 1:54 PM EDT [facility] Work Phone: End: 12-09-2023 Mri pelvis w/o & w/contrast material MRI PELVIS WO/W IVCON Radiology Routine Prostate cancer (HCC) Abdominal mass, left lower quadrant 1 Occurrences starting 11/09/2022 until 12/09/2023 [facility] Work Phone: Comment on above: 1 Occurrences starti ng 11/09/2022 until 12/09/2023 End: 12-04-2022 Mri pelvis w/o & w/contrast material [facility] Work Phone: Comment on above: 1 Occurrences starti ng 12/04/2022 until 12/04/2022 [facility] Immunizations Immunization Date Immunization Notes Care Provider Fa cility 04-02-2024 COVID-19 Comirnaty (Pfizer) Tri-Sucrose 12+ [facility] 04-02-2024 Pneumococcal Conjuga te Vaccine, 20 valent [facility] 07-25-2023 zoster vaccine recombinant Radha Fish [facility] 07-13-2023 influenza virus vaccine, unspecified formulation [facility] 07-13-2023 influenza, high dose seasonal, preservative-free Bro Chavez Other [facility] Other 05-07-2023 zoster vaccine recombinant Bro Chavez Other [facility] 10-18-2022 SARS-CoV-2 (COVID-19 ) [id number] Radha Whitten [facility] 07-05-2022 influenza virus vaccine, split virus (incl. purified surface antigen) Bro Chavez Other [facility] Other 07-05-2022 influenza virus vaccine, unspecified formulation Radha Lue [facility] 01-30-2022 SARS-CoV-2 mRNA (ilkysoetoic-ddwh-dpagw se) vaccine Radha Lue [facility] 07-04-2021 influenza virus vaccine, split virus (incl. purified surface antigen) Bro Chavez Other [facility] Other 07-04-2021 influenza virus vaccine, unspecified formulation [facility] 07-04-2021 SARS-CoV-2 (COVID-19 ) mRNA BNT-162b2 vax Radha Lue [facility] Comment on above: Result Comment: 2022: [id number] 06-15-2021 SARS-CoV-2 (COVID-19 ) Ad26 vaccine, recombinant Sushant Freedman Jr. [facility] 12-13-2020 SARS-CoV-2 (COVID-19 ) Ad26 vaccine, recombinant Sushant Freedman Jr. [facility] 12-07-2020 SARS-CoV-2 (COVID-19 ) mRNA BNT-162b2 vax Radha Lue [facility] Comment on above: Result Comment: 2022: TPV70 11-16-2020 SARS-CoV-2 (COVID-19 ) mRNA BNT-162b2 vax Radha Lue [facility] Comment on above: Result Comment: 2022: TPV70 11-15-2020 SARS-CoV-2 (COVID-19 ) Ad26 vaccine, recombinant Sushant Freedman JrBrian [facility] 07-05-2020 influenza virus vaccine, split virus (incl. purified surface antigen) Bro Chavez Other [facility] Other 07-05-2020 influenza virus vaccine, unspecified formulation [facility] 07-29-2019 influenza virus vaccine, split virus (incl. purified surface antigen) Bro Chavez Other [facility] Other 07-29-2019 influenza virus vaccine, unspecified formulation [facility] 07-30-2018 influenza virus vaccine, split virus (incl. purified surface antigen) Bro Chavez Other [facility] Other 07-30-2018 influenza virus vaccine, unspecified formulation Radha Lue [facility] 07-25-2017 influenza virus vaccine, split virus (incl. purified surface antigen) Bro Chavez Other [facility] Other 07-25-2017 influenza virus vaccine, unspecified formulation Radha Lue [facility] 05-23-2017 pneumococcal polysaccharide vaccine, 23 valent Radha Lue [facility] 09-04-2016 influenza virus vaccine, split virus (incl. purified surface antigen) Bro Chavez Other [facility] Other 09-04-2016 influenza virus vaccine, unspecified formulation [facility] 09-04-2016 pneumococcal conjuga te vaccine, 13 valent Bro Chavez Other [facility] 08-12-2015 influenza virus vaccine, split virus (incl. purified surface antigen) Bro Chavez Other [facility] Other 08-12-2015 influenza virus vaccine, unspecified formulation Radha Whitten [facility] 02-12-2015 pneumococcal polysaccharide vaccine, 23 valent Bro Chavez Other [facility] 07-23-2014 tetanus and diphther ia toxoids, adsorbed, preservative free, for adult use (5 Lf of tetanus toxoid and 2 Lf of diphtheria toxoid) Bro Chavez Other [facility] 09-01-2013 tetanus and diphther ia toxoids, adsorbed, preservative free, for adult use (5 Lf of tetanus toxoid and 2 Lf of diphtheria toxoid) Bro Chavez Other [facility] Payers Date Payer Category Payer Unknown MMO MMO MEDICARE SUPPLEMENT [id number] 2019-Present [phone] [address] [place] [address] Indemnity [id number] 2019 Unknown MMO MMO MEDICARE SUPPLEMENT [id number] 2019-Present [phone] [address] [place] [address] Indemnity [id number] 2012 Medicare MEDICARE MEDICAR E A AND B [id number] 2012-Present [phone] [address] [address] [place] [address] Medicare [id number] 2012 Medicare MEDICARE MEDICAR E A AND B [id number] 2012-Present [phone] [place] [address] Medicare [id number] 1959 Medicare [id number] 1959 Self-pay [id number] 1959 Unknown [id number] 1947 Unknown [id number] 1947 Unknown [id number] 1947 Unknown [id number] 1947 Unknown [id number] 1947 Unknown [id number] 1947 Unknown [id number] 1947 Unknown [id number] 1947 Unknown [id number] [id number] 1947 Unknown [id number] [id number] 1947 Unknown [id number] 1947 Unknown [id number] Social History Date Type Detail Facility Start: 03-28-2022 End: 11-28-2023 Tobacco smoking status Never smoked tobacco (finding) [facility] Start: 02-14-2023 End: 05-15-2023 Sex Assigned At Male [facility] Start: 05-10-2021 End: 12-26-2022 Tobacco use and exposure Smokeless tobacco non-user [facility] Start: 03-30-2022 End: 05-20-2024 Alcohol intake Ex-drinker (finding) [facility] Start: 1945 Sex Assigned At Not on file C [facility] Start: 03-20-2022 End: 07-13-2022 Exposure to SARS-CoV-2 (event) Not sure [facility] Tobacco smoking status Never [facility] Start: 02-14-2023 End: 05-15-2023 History of Social function [facility] Start: 1945 Sex Assigned At Male F [facility] Medical Equipment Procedure Code Equipment Code Equipment Origin al Text Equipment Identifier Dates Mesh Prolene Squ are Flat 20m55nd Surgical Knit Nonabsorbable Nonreactive - [id number] Start: 02-23-2023 Functional Status Date Assessment Result Facility 06-04-2024 Functional Status N/A [facility] 11-28-2023 Functional Status N/A [facility] 08-15-2023 Functional Status N/A [facility] 01-24-2023 Functional Status N/A [facility] 01-11-2023 Functional Status N/A [facility] 12-28-2022 Functional Status N/A [facility] 12-14-2022 Functional Status N/A [facility] 11-30-2022 Functional Status N/A [facility] 11-23-2022 Functional Status N/A [facility] 11-08-2022 Functional Status N/A [facility] 10-04-2022 Functional Status N/A [facility] 03-28-2022 Functional Status N/A [facility] Clinical Notes 03-28-2022 to 06-04-2024 aAliyah Hernandez MD - 05/20/2024 1:15 PM EDTPDaivd winchester RT(R) - 04/01/2024 11:36 AM Kritsy Fabian, OCCA - 04/01/2024 10:03 AM Kristy [...] including vitamins, herbs, eye drops, creams, and tedp-ytc-vmsssrt medicines. Any problems you or family members [...] provider tells you to take them. Taking bbvm-lwd-khilftm medicines, vitamins, herbs, and supplements. Surgery safety [...] provider. Document Revised: 05/06/2021 Document Reviewed: 05/06/2021 [employer] Patient Education 2022 [employer]. Follow Up Care 11/28/2023 11:10:53 With:Fish WHARTON, ALANNA Hahn, URO Address: When: Unknown [facility] 06-04-2024 Note Patient Education Urology Artificial Urinary [...] including vitamins, herbs, eye drops, creams, and pxqx-cbb-wpguipl medicines. ? Any problems you or family [...] tells you to take them. ? Taking vlxa-yvt-lyfqyyz medicines, vitamins, herbs, and supplements. Surgery safety [...] weeks after the (more content not included)... [facility] 05-20-2024 History of Presen t illness Narrative [...] Aaliyah Hernandez MD cc: Bro Chavez (Aj) [address] [place] [address] Whitten documented in this encounter [facility] 05-20-2024 Note HNO ID: [id number] Author: Aaliyah HERNANDEZ MD Service: ? Author [...] none Dysuria: none (more content not included)... [facility] 04-01-2024 Note HNO ID: [id number] Author: DAVID PORTILLO RT(R) Service: ? Author [...] PATIENT PRESENTS WITH AN IMPLANTABLE OR ATTACHED MANAGER SPRING: No RADIOLOGY DEPARTMENT: CT; Exam(s) Completed: Abdomen/Pelvis PERIPHERAL IV DATA: Not applicable SIGNED BY: RT Haylee(R) April 01, 2024 11:36 AM [facility] 04-01-2024 History of Presen t illness Narrative [...] PATIENT PRESENTS WITH AN IMPLANTABLE OR ATTACHED MANAGER SPRING: No RADIOLOGY DEPARTMENT: CT; Exam(s) Completed: Abdomen/Pelvis PERIPHERAL IV DATA: Not applicable SIGNED BY: RT Haylee(R) April 01, 2024 11:36 AM documented in this encounter [facility] 04-01-2024 Nurse Note What is the reason [...] Bowels: regular Wound: Temperature: No Drains: No [facility] 04-01-2024 Nurse Note What is the reason [...] No Drains: No documented in this encounter [facility] 04-01-2024 History of Presen t illness Narrative [facility] Abdominal Core Health - Follow Up Visit [...] Bishop MD 04/01/24, 10:35 AM General Surgery [facility] Medical Decision Making: Problems: Low: Stable chronic illness Data: Unique test result(s) reviewed: 1 Independent interpretation of test from other physician/QHCP Risk: Low: Low risk from testing/treatment Medical Decision Making Level: 3 - Low documented in this encounter [facility] 04-01-2024 Note HNO ID: [id number] Author: DONATO BISHOP MD Service: ? Author Type: Physician Type: Progress Notes Filed: 04/07/2024 16:41 Note Text: [facility] Abdominal [facility] Health - Follow Up Visit Assessment/Plan: [...] Bishop MD 04/01/24, 10:35 AM General Surgery [facility] Medical Decision Making: Problems: Low: Stable chronic illness Data: Unique test result(s) reviewed: 1 Independent interpretation of test from other physician/QHCP Risk: Low: Low risk from testing/treatment Medical Decision Making Level: 3 - Low [facility] 11-28-2023 Hospital Discharg e instructions Patient Education [...] provider. Document Revised: 02/09/2022 Document Reviewed: 02/09/2022 [employer] Patient Education 2022 [employer]. Follow Up Care 08/15/2023 09:39:21 With:Fish WHARTON, ALANNA Hahn, URO Address: [address] [place] [address] [place] [address] [phone] When: Unknown Comments:6 months [facility] 11-20-2023 Nurse Note Patient c/o continued urinary incontinence. Started Gemtesa approximately 3 months ago with little improvement. documented in this encounter [facility] 11-20-2023 Note HNO ID: [id number] Author: Aaliyah HERNANDEZ MD Service: ? Author [...] SYSTEMS: D/N = (more content not included)... [facility] 11-20-2023 History of Presen t illness Narrative Radiation Oncology - Follow Up Note PATIENT NAME: Yoni Ramirez PATIENT DIAGNOSIS: Prostate adenocarcinoma, initial PSA 7.4, biopsy Dayton score 4 + 3 = 7 (grade [...] ASSESSMENT/PLAN: Prostate adenocarcinoma, initial PSA 7.4, biopsy Dayton score 4 + 3 = 7 (grade [...] by: Aaliyah Hernandez MD cc: Bro Chavez ([facility]) [address] [place] [address] Dr. Whitten documented in this encounter [facility] 10-11-2023 Evaluation note Encounter Date Diagnosis Assessment [...] from previous results Blood loss from surgery? [facility] Other 12-19-2023 Evaluation note* Encounter Date Diagnosis Assessment Notes Treatment Notes Treatment Clinical Notes Sep, Anemia (ICD-10 - D64.9) [facility] Other 11-08-2023 Evaluation note* Encounter Date Diagnosis Assessment Notes Treatment Notes Treatment Clinical Notes Aug, COVID-19 (ICD-10 - U07.1) [facility] Other 11-07-2023 Evaluation note* Encounter Date Diagnosis [...] continue exercise to achieve/maintain a normal BMI. [facility] Other 11-01-2023 Hospital Discharge instructions Patient Education [...] provider. Document Revised: 02/09/2022 Document Reviewed: 02/09/2022 [employer] Patient Education 2022 [employer]. Follow Up Care 06/01/2023 13:07:42 With:Fish WHARTON, ALANNA Hahn, URO Address: When:Within 3 Month(s) [facility] [place] 09-29-2023 Evaluation note* Encounter Date Diagnosis [...] High risk medication use (ICD-10 - Z79.899) [facility] Other 08-01-2023 History of Present illness Narrative* Aaliyah Hernandez MD - 05/15/2023 1:32 PM EDT Radiation Oncology - Follow Up Note PATIENT NAME: Yoni Ramirez PATIENT DIAGNOSIS: Prostate adenocarcinoma, initial PSA 7.4, biopsy Dayton score 4 + 3 = 7 (grade [...] by: Aaliyah Hernandez MD cc: Bro Chavez ([facility]) [id number] Whitten [facility]* Encounter Date Diagnosis Assessment Notes [...] s/p ADT No ongoing treatment Serial PSA [facility] Other 06-01-2023 Evaluation note* Encounter Date Diagnosis [...] repair. Ventral hernia repair No complications noted. [facility] Other 05-16-2023 NoteHNO ID: [id number] Author: Michelle Bryant MD Service: General Surgery [...] MD For team paging 6AM-6PM during weekdays: [phone] for [facility] Team For team paging after 6PM or on weekend / holidays: [phone] for General Surgery Subjective: Acute events overnight: [...] input(s): APTT, PT, INR in the last 49078 hours. Intake and Output: Date 02/26/23 07 - 02/27/23 0659 02/27/23 07 - 02/28/23 0659 Shift 4351-0796 6450-2123 6902-9583 24 Hour Total 1870-1453 7843-4744 6958-7295 24 Hour Total INTAKE PO 360 360 720 PO 360 360 720 IV 300 300 Volume (mL) (magnesium sulfate iv piggyback in sterile water 2 g 50 mL) 50 50 Volume (mL) (potassium phosphate 30 mmol in NaCl 0.9% 250 mL) 250 250 Shift Total 227 150 1712 OUTPUT Urine 1000 1900 2900 Urine Incontinence/Not [...] (ROXICODONE) 2.5-5 mg ORAL q 4 H PRNFLahey [facility] & Medical CenterWbydicfu88-82-5409 NoteHNO ID: [id number] Author: Perez Salvador MD Service: General Surgery [...] Agrawal MD General Surgery, PGY-1 Personal Pager/Phone: [phone] Service Pager: [phone] (LAITH Lowery) For weekday evenings (6PM-6AM) or weekends/holidays, please page [phone] ([facility] weekends/nights)[facility]Nuqprhkt20-84-7277 History of Past illness Narrative* Problem Noted Date Diagnosed Date Resolved Date Hypophosphataemia 02/26/2023 03/02/2023 Hypokalemia 02/26/2023 03/02/2023 Post-op pain 02/26/2023 03/02/2023 Inguinal hernia of left side without obstruction or gangrene 02/24/2023 03/02/2023 documented as of this encounter (statuses as of 05/18/2023) [facility] History of Past illness Narrative* Problem Noted Date Diagnosed Date Resolved Date Hypophosphataemia 02/26/2023 03/02/2023 Hypokalemia 02/26/2023 03/02/2023 Post-op pain 02/26/2023 03/02/2023 Inguinal hernia of left side without obstruction or gangrene 02/24/2023 03/02/2023 documented as of this encounter (statuses as of 11/28/2023) [facility]05-15-2023 NoteHNO ID: [id number] Author: Carolina Lorenz MD Service: General Surgery [...] MD For team paging 6AM-6PM during weekdays: [phone] for [facility] Team For team paging after 6PM or on weekend / holidays: [phone] for General Surgery Subjective: Acute events overnight: [...] input(s): APTT, PT, INR in the last 71841 hours. Intake and Output: Date 02/25/23699 - 02/26/2365802/26/23699 - 02/27/23 0659 Shift 5413-0341 0859-2279 2156-1280 24 Hour Total 7292-8883 7866-1299 4923-6440 24 Hour Total INTAKE PO 340 120 460 PO 340 120 460 IV 559 559 Volume (mL) (lactated ringers iv infusion) 559 559 Shift Total 340 136 549 9083 OUTPUT Urine 7196 935 2344 2750 Output ( External Collection Device 02/25/23 0000) 8203 798 0422 2750 Tubes 40 55 20 115 Drain/Tube Output (Drain/Tube 02/23/232119 Chip Spivey Right Upper Quadrant Abdomen Drain #1) 20 30 0 50 Drain/Tube Output (Drain/Tube 02/23/232121 Chip Spivey Left Upper Quadrant Abdomen) 20 25 20 65 # of BMs Number of BMs 0 x 0 x 0 x Shift Total 7850 467 6694 2865 Weight (kg) Current Medications: Current Facility-Administered [...] NaCl 0.9% 250 mL 30 mmol INTRAVENOUS ONCEMelrosewakefield HospitalUocvpkud91-72-5092 NoteHNO ID: [id number] Author: Chris Avendano MD Service: General Surgery [...] Resident For team paging 6AM-6PM during weekdays: [phone] for [facility] Team For team paging after 6PM or on weekend / holidays: [phone] for General Surgery Subjective: Acute events overnight: [...] input(s): APTT, PT, INR in the last 31913 hours. Intake and Output: Date 02/24/23699 - 02/25/2365802/25/23699 - 02/26/23 0659 Shift 5400-7604 1198-7978 2198-4533 24 Hour Total 9833-3014 4024-1603 3369-8448 24 Hour Total INTAKE PO 240 450 250 940 PO 240 450 250 940 IV 7381 272 3920 Volume (mL) (ceFAZolin iv piggyback 2 g in D5W (iso-osmotic) 100 mL (ANCEF)) 100 100 Volume (mL) (lactated ringers iv infusion) 9711 483 0991 Shift Total 240 2017 79 3053 OUTPUT Urine 589 778 0148 3025 Void (ml) 250 250 Output ([REMOVED] Indwelling Urinary Catheter 02/23/23 2325 Assessment Spear 02/25/23 0012) 900 735 3637 2575 Output ( External Collection Device 02/25/23 [...] x 1 x 1 x Shift Total 269 931 3889 3265 Weight (kg) Current Medications: Current Facility-Administered [...] mg/mL) - 200 mL PERIPHERAL NERVE CATHETER CONTINUOUSMelrosewakefield HospitalBtqacnyb02-06-1589 NoteHNO ID: [id number] Author: Chris Avendano MD Service: General Surgery [...] Lorenz MD, PGY-1 General Surgery Resident Pager [phone] For after hours issues, please call the on-call pager For team paging 6AM-6PM during weekdays: [phone] for [facility] Team For team paging after 6PM or on weekend / holidays: [phone] for General Surgery Subjective: Acute events overnight: [...] input(s): APTT, PT, INR in the last 28328 hours. Intake and Output: Date 02/23/23699 - 02/24/2365802/24/23699 - 02/25/23 0659 Shift 5383-9433 1574-4070 4923-8888 24 Hour Total 2768-0361 3884-6352 5577-5603 24 Hour Total INTAKE PO 60 60 [...] mL (ANCEF) 2 g INTRAVENOUS q 8 [facility]05-13-2023 NoteHNO ID: [id number] Author: Perez Salvador MD Service: General Surgery Author Type: Resident Type: Plan of Care Filed: 02/24/2023 4:59 AM Note Text: GENERAL SURGERY POST-OPERATIVE CHECK NOTE PATIENT NAME: Yoni Ramirez AGE: [age] year old : 1945 SEX: male ASSESSMENT AND PLAN: 77 year old male POD0 s/p Attempted vrhv-wyj-mtynp repair of L femoral hernia, Excision of [...] Agrawal MD General Surgery, PGY-1 Personal Pager/Phone: [phone] Service Pager: [phone] ( [place]) For weekday evenings (6PM-6AM) or weekends/holidays, please page [phone] ([facility] weekends/nights) SUBJECTIVE: Patient feels [...] and intact without strike-through LINES/TUBES: FERNANDO X2 [facility]05-13-2023 NoteHNO ID: [id number] Author: Tristan Solorio MD Service: Anesthesiology Author Type: Anesthesiologist Type: Anesthesia Procedure Notes Filed: 02/23/2023 11:18 PM Note Text: ANESTHESIOLOGY PROCEDURE NOTE Peripheral Nerve Block General Information Procedure Start Time/Medication Administration: 02/23/2023 10:41 PM Procedure End time: 02/23/2023 11:07 PM Patient location during procedure: OR Timeout Performed Pre-procedure: timeout performed Consent Obtained: Yes 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, 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 Reason for block: [...] February 23, 2023 TIME: 11:15 PM CSN: [id number] NoteHNO ID: [id number] Author: Tristan Solorio MD Service: Anesthesiology Author Type: Anesthesiologist Type: Anesthesia Procedure Notes Filed: 02/23/2023 11:15 PM Note Text: ANESTHESIOLOGY PROCEDURE NOTE Peripheral Nerve Block General Information Procedure Start Time/Medication Administration: 02/23/2023 10:41 PM Procedure End time: 02/23/2023 11:07 PM Patient location during procedure: OR Timeout Performed Pre-procedure: timeout performed Consent Obtained: Yes 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, 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 Reason for block: [...] February 23, 2023 TIME: 11:13 PM CSN: [id number] [id number] NoteHNO ID: [id number] Author: Stefanie Hitchcock APRN.CIRCUS AGENT Service: Anesthesiology Author Type: Nurse Mushroom Sorter Grader Type: Anesthesia Procedure Notes Filed: 02/23/2023 5:16 PM Note Text: ANESTHESIOLOGY PROCEDURE NOTE PIV General Information Procedure Start Time/Medication Administration: 02/23/2023 5:05 PM Patient Location: OR Staffing CIRCUS AGENT: Stefanie Hitchcock APRN.CIRCUS AGENT Performed by: LARS Preparation Sterility Preparation: hand hygiene performed prior to procedure, surgical cap used, mask used Site Prep: chlorhexidine Procedure Details Indication: need for IV access Needle Size/Type: 18 gauge angiocath Orientation: Left Location: Hand Imaging Guidance Used: No SIGNATURE: Stefanie Hitchcock APRN.CRNA PATIENT NAME: Yoni Ramirez DATE: February 23, 2023 TIME: 5:15 PM CSN: [id number] ID: [id number] Author: Stefanie Hitchcock APRN.CIRCUS AGENT Service: Anesthesiology Author Type: Nurse Mushroom Sorter Grader Type: Anesthesia Procedure Notes Filed: 02/23/2023 3:13 PM Note Text: ANESTHESIOLOGY PROCEDURE NOTE Airway General Information Procedure Start Time/Medication Administration: 02/23/2023 2:44 PM Patient location during procedure: OR Timeout Performed Pre-procedure: timeout performed Consent Obtained: Yes Patient identity confirmed: arm band, 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 team leader and patient Staffing Anesthesiologist: Faisal Kim MD CIRCUS AGENT: Stefanie Hitchcock APRN.CIRCUS AGENT Performed by: LARS Indications and Patient Condition [...] February 23, 2023 TIME: 3:11 PM CSN: [id number] Evaluation note* Encounter Date Diagnosis Assessment Notes Treatment Notes Treatment Clinical Notes February, Acute pain of right knee (ICD-10 - M25.561) Ice, elevate and rest. No obvious s/s septic joint or inflammatory arthritis Check ESR, CRP and CBC and if normal, can't see any reason he can't proceed w/ surgery this February, Swelling of right knee joint (ICD-10 - M25.461) [facility] Other 05-03-2023 History and physical note* Nichole Humphrey APRN.SOLID WASTE TRUCK DRIVER - 02/14/2023 1:40 PM EDT HISTORY AND [...] fevers. Neuro: No history of TIA's, stroke, BI DEVELOPER tumor, impaired sensorium, hemiplegia, paraplegia or quadraplegia. [...] Ramirez DATE: 02/14/2023 TIME: documented [facility] Instructions* Patient Instructions* Nichole Humphrey APRN.CNP - 02/14/2023 1:31 PM EDT PATIENT PREOPERATIVE INSTRUCTIONS Donato Bishop MD has scheduled you for your procedure at this surgery center: [facility]: [phone] --[id number] [address]. Please check in on the1st floor at [...] Procedures: - YOU MUST HAVE A RESPONSIBLE PURCHASING ADMINISTRATIVE ASSISTANT TAKE YOU HOME. A INDOOR SPORTS CENTRE MANAGER OR TAG MAKER CANNOT BE MADE A RESPONSIBLE PURCHASING ADMINISTRATIVE ASSISTANT. - We recommend that a responsible person stays with you overnight to take care of you. - You cannot stay in a hotel alone after outpatient surgery. You will not be permitted to have yoursurgery, if you do not have someone to take care of you. If you already have an Advance Directive, please fax a copy to [phone] or email to for it to be [...] your chart that day. documented in this encounterSelect [facility]23 Evaluation note* Encounter Date Diagnosis Assessment Notes Treatment Notes Treatment Clinical Notes Jan, Essential (primary) hypertension (ICD-10 - I10) Jan, Hyperlipidemia type II (ICD-10 - E78.01) [facility] Other 04-24-2023 Evaluation note* Encounter Date Diagnosis Assessment Notes Treatment Notes Treatment Clinical Notes Jan, Strain of right knee , initial encounter (ICD-10 - S86.911A) Ice, heat, elevate and brace IA injection? Prednisone? Jan, Swelling of right knee joint (ICD-10 - M25.461) Rest w/ intermittent ice Jan, Primary osteoarthritis of right knee (ICD-10 - M17.11) Quad exercises, ice/heat, Tylenol [facility] Other 04-17-2023 Evaluation note* Encounter Date Diagnosis [...] for postoperative hypoventilation w/ sedating pain medications. [facility] Other 04-12-2023 Hospital Discharge instructions Patient Education [...] fried and sweet foods. General instructions Take sppm-uen-wbgdeyo and prescription medicines only as told by [...] 07/28/2010 Document Revised: 01/22/2020 Document Reviewed: 10/17/2018 [employer] Patient Education 2020 [employer]. Follow Up Care 11/08/2022 13:09:05 With:CIERRA ZHU PA-C, URL Address: [address] [place] [address] When:3 months [facility] [place] 03-30-2023 Hospital Discharge instructions Patient Education [...] 09/17/2013 Document Revised: 05/21/2019 Document Reviewed: 05/21/2019 [employer]do Patient Education 2020 [employer]. Follow Up Care 11/08/2022 13:23:11 With:YESSENIA ZHU, CIERRA Roche, URL Address: [address] [place] [address] When: Unknown [facility] [place] 03-16-2023 Hospital Discharge instructions Patient Education [...] nerve stimulation). For women, using a medical screener to prevent urine leaks. This is a [...] right after experiencing incontinence. General instructions Take jhdg-wsv-fexvgzh and prescription medicines only as told by [...] 11/08/2005 Document Revised: 10/11/2018 Document Reviewed: 01/10/2018 [employer]rendo Patient Education 2020 [employer]. 12/28/2022 09:12:01 Overactive Bladder, Adult Overactive Bladder, [...] fried and sweet foods. General instructions Take gisy-xtx-pfqecek and prescription medicines only as told by [...] 07/28/2010 Document Revised: 01/22/2020 Document Reviewed: 10/17/2018 [employer]do Patient Education 2020 [employer]. Follow Up Care 11/08/2022 13:19:49 With:CIERRA ZHU PA-C, URL Address: [facility] [address] [facility] [address] When:1 week Comments:1 wk follow up PFPT #5 [facility] [place] 03-14-2023 History of Present illness Narrative* Donato Bishop MD - 12/26/2022 10:20 AM EDT HISTORY AND PHYSICAL [facility] Chief Complaint: [...] (Radha Whitten) 1994 - Umbilical hernia @ [place] [facility] 2014 - Open left inguinal hernia @ [place] [facility] No history of Psychiatric Disorders or Opioid [...] Bishop MD 01/02/23, 5:14 PM General Surgery [facility] * Kate Funez RN - 12/26/2022 10:18 [...] Temperature: No Drains: No documented in this encounterSelect [facility]23 Hospital Discharge instructions Patient Education 12/14/2022 09:24:29 [...] 09/17/2013 Document Revised: 05/21/2019 Document Reviewed: 05/21/2019 Tirendo Patient Education 2020 [employer]. Follow Up Care 11/08/2022 13:16:38 With:YESSENIA ZHU, CIERRA Roche, URL Address: [address] [place] [address]. [place] [address] When: Unknown [facility] 02-[facility]23 History of Present illness Narrative* G Raz Hernandez MD - 12/12/2022 1:01 PM EST Radiation Oncology - Follow Up Note PATIENT NAME: Yoni Ramirez PATIENT DIAGNOSIS: Prostate adenocarcinoma, initial PSA 7.4, biopsy Dayton score 4 + 3 = 7 (grade [...] MD cc: Bro Chavez (Aj) [address] [place] [address] Dr. Whitten documented in this encounterSelect [facility]02-22-2023 Nurse Note* Melanie Pierre RN - 12/06/2022 [...] 2022 TIME: 9:07 AM documented in this encounterSelect [facility]02-20-2023 Miscellaneous Notes* Allied Health - ROSY Campoverde [...] Site disposition Discontinued SIGNED BY: Kelly Benavides study assistant December 04, 2022 4:33 PM documented in this encounter[address]20-2023 Nurse Note* Sima Craig RN - [...] 2022 TIME: 2:36 PM documented in this encounterSelect [facility]02[facility]16-[facility]23 Hospital Discharge instructions Patient Education 11/30/2022 09:15:44 [...] 09/17/2013 Document Revised: 05/21/2019 Document Reviewed: 05/21/2019 [employer]rendo Patient Education 2020 [employer]. Follow Up Care 11/08/2022 13:07:14 With:YESSENIA ZHU, CIERRA Roche, URL Address: [address] [place] [address] When: Unknown [facility] [place] 02-09-2023 Hospital Discharge instructions Patient Education [...] fried and sweet foods. General instructions Take vaan-yrl-qwbcohe and prescription medicines only as told by [...] 07/28/2010 Document Revised: 01/22/2020 Document Reviewed: 10/17/2018 Ti[employer]do Patient Education 2020 [employer]. Follow Up Care 11/08/2022 13:06:21 With:CIERRA ZHU PA-C, URL Address: [address] [facility] [place] [address] [phone] When: Unknown [facility] [place] [id number] Nurse Note* Debbie Martin RN - 11/09/2022 1:03 PM EST AUA 5. 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 Whitten documented in this encounterSelect [facility]01-[facility]23 Hospital Discharge instructions Patient Education 11/08/2022 12:05:39 [...] nerve stimulation). For women, using a medical screener to prevent urine leaks. This is a [...] right after experiencing incontinence. General instructions Take hgjs-ywd-tpdtkti and prescription medicines only as told by [...] 11/08/2005 Document Revised: 10/11/2018 Document Reviewed: 01/10/2018 [employer] Patient Education 2020 [employer]. 11/08/2022 12:05:35 Calorie Counting for Weight Loss [...] 10/01/2006 Document Revised: 06/20/2019 Document Reviewed: 08/31/2017 [employer] Patient Education 2020 [employer]. Follow Up Care 10/04/2022 09:47:52 With:Fish WHARTON, ALANNA Hahn, URO Address: When: Unknown [facility] [place] 12-21-2022 Hospital Discharge instructions Patient Education 10/04/2022 [...] veins. Follow these instructions at home: Take qnqn-qal-kfwyxei and prescription medicines only as told by [...] 01/07/2002 Document Revised: 12/19/2019 Document Reviewed: 12/19/2019 Tirendo Patient Education 2020 [employer]. Follow Up Care 03/28/2022 09:10:25 With:Fish WHARTON, Radha Tejada, URL, URO Address: [address], [facility] [phone] When: Unknown Comments:schedule scrotal US [facility] 09-29-2022 Nurse Note* Debbie Martin RN - 07/13/2022 1:22 PM EDT AUA 3 Debbie Martin RN documented in this encounterSelect [facility]09-29-2022 History of Present illness Narrative* Aaliyah Hernandez MD - 07/13/2022 1:15 PM EDT Radiation Oncology - Follow Up Note PATIENT NAME: Yoni Ramirez PATIENT DIAGNOSIS: Prostate adenocarcinoma, initial PSA 7.4, biopsy Dayton score 4 + 3 = 7 (grade [...] ASSESSMENT/PLAN: Prostate adenocarcinoma, initial PSA 7.4, biopsy Dayton score 4 + 3 = 7 (grade [...] by: Aaliyah Hernandez MD cc: Bro Chavez ([facility]) [address] [place] [address] documented in this encounterSelect [facility]2022 History of Present illness Narrative* Aaliyah Hernandez [...] by: Aaliyah Hernandez MD cc: Bro Chavez ([facility]) [address] [place] [address] documented in this encounterSelect [facility]06-14-2022 Hospital Discharge instructions Patient Education 03/28/2022 08:51:26 [...] including vitamins, herbs, eye drops, creams, and yzmf-ori-wxjfubf medicines. This also includes: ?Medicines to assist [...] 11/03/2005 Document Revised: 09/13/2018 Document Reviewed: 07/08/2018 Tirendo Patient Education 2020 [employer]. Follow Up Care 09/27/2021 10:26:46 With:Tano Bernardo MD, Sushant Morel, URO Address: [facility] [address], [place] [address]- When:Within 6 Month(s) [facility] evaluation + Plan note Future Appointments Appointment Date:10/03/2022 08:00:00 AM Scheduled Provider:Sushant Freedman Jr., MD Location:[facility] Appointment Type:URO Office Visit [facility] evaluation + Plan note Future Appointments Appointment Date:01/03/2023 08:00:00 AM Scheduled Provider:Radha Whitten MD Location:[facility] Appointment Type:URO Office Visit [facility] evaluation + Plan note Future Appointments Appointment Date:11/23/2022 09:00:00 AM Scheduled Provider:CIERRA ZHU PA-C [facility] Appointment Type:URO Procedure 30 min Appointment Date:11/30/2022 09:00:00 AM Scheduled Provider:CIERRA ZHU PA-C Location:[facility] [place] Appointment Type:URO Procedure 30 min Appointment Date:12/07/2022 10:30:00 AM Scheduled Provider:CIERRA ZHU PA-C Location:[facility] [place] Appointment Type:URO Procedure 30 min Appointment Date:12/14/2022 09:00:00 AM Scheduled Provider:CIERRA ZHU PA-C Location:[facility] [place] Appointment Type:URO Procedure 30 min Appointment Date:12/28/2022 09:00:00 AM Scheduled Provider:CIERRA ZHU PA-C Location:[facility] [place] Appointment Type:URO Procedure 30 min Appointment Date:01/11/2023 09:00:00 AM Scheduled Provider:CIERRA ZHU PA-C Location:[facility] [place] Appointment Type:URO Procedure 30 min Appointment Date:01/17/2023 08:45:00 AM Scheduled Provider:[facility] Office [facility] evaluation + Plan note Future Appointments Appointment Date:11/30/2022 09:00:00 AM Scheduled Provider:CIERRA ZHU PA-C [facility] Appoint[facility] Type:URO Procedure 30 min Appointment Date:12/07/2022 10:30:00 AM Scheduled Provider:CIERRA ZHU PA-C Location:[facility] [place] Appointment Type:URO Procedure 30 min Appointment Date:12/14/2022 09:00:00 AM Scheduled Provider:CIERRA ZHU PA-C Location:[facility] [place] Appointment Type:URO Procedure 30 min Appointment Date:12/28/2022 09:00:00 AM Scheduled Provider:CIERRA ZHU PA-C Location:[facility] [place] Appointment Type:URO Procedure 30 min Appointment Date:01/11/2023 09:00:00 AM Scheduled Provider:CIERRA ZHU PA-C [facility] Appointment Type:URO Procedure 30 min Appointment Date:01/17/2023 08:45:00 AM Scheduled Provider:Radha Whitten MD Location:[facility] Appointment Type:URO Office Visit [facility] Evaluation + Plan note Future Appointments Appointment Date:12/07/2022 10:30:00 AM Scheduled Provider:CIERRA ZHU PA-C [facility] Appointment Type:URO Procedure 30 min Appointment Date:12/14/2022 09:00:00 AM Scheduled Provider:CIERRA ZHU PA-C Location:[facility] [place] Appointment Type:URO Procedure 30 min Appointment Date:12/28/2022 09:00:00 AM Scheduled Provider:CIERRA ZHU PA-C Location:[facility] [place] Appointment Type:URO Procedure 30 min Appointment Date:01/11/2023 09:00:00 AM Scheduled Provider:CIERRA ZHU PA-C [facility] Appointment Type:URO Procedure 30 min Appointment Date:01/17/2023 08:45:00 AM Scheduled Provider:Radha Whitten MD Location:[facility] Appointment Type:URO Office Visit [facility] Evaluation + Plan note Future Appointments Appointment Date:12/28/2022 09:00:00 AM Scheduled Provider:CIERRA ZHU PA-C [facility] Appointment Type:URO Procedure 30 min Appointment Date:01/11/2023 09:00:00 AM Scheduled Provider:CIERRA ZHU PA-C [facility] Appointment Type:URO Procedure 30 min Appointment Date:01/24/2023 08:30:00 AM Scheduled Provider:CIERRA ZHU PA-C Location:[facility] Appointment Type:URO Procedure 30 min Appointment Date:02/02/2023 09:00:00 AM Scheduled Provider:Radha Whitten MD Location:[facility] Appointment Type:URO Office Visit [facility] Evaluation + Plan note Future Appointments Appointment Date:01/11/2023 09:00:00 AM Scheduled Provider:CIERRA ZHU PA-C Location:[facility] Appointment Type:URO Procedure 30 min Appointment Date:01/24/2023 08:30:00 AM Scheduled Provider:CIERRA ZHU PA-C Location:[facility] Appointment Type:URO Procedure 30 min Appointment Date:02/02/2023 09:00:00 AM Scheduled Provider:Radha Whitten MD Location:[facility] Appointment Type:URO Office Visit [facility] Evaluation + Plan note Future Appointments Appointment Date:01/24/2023 08:30:00 AM Scheduled Provider:CIERRA ZHU PA-C Location:[facility] Appointment Type:URO Procedure 30 min Appointment Date:02/02/2023 09:00:00 AM Scheduled Provider:Radha Whitten MD Location:[facility] Appointment Type:URO Office Visit [facility] [place] Evaluation + Plan note Future Appointments Appointment Date:11/28/2023 10:00:00 AM Scheduled Provider:Radha Whitten MD Location:[facility] Appointment Type:URO Office Visit [facility] evaluation + Plan note Future Appointments Appointment Date:06/04/2024 08:45:00 AM Scheduled Provider:Radha Whitten MD Location:[facility] Appointment Type:URO Office Visit [facility] evaluation + Plan note Future Appointments Appointment Date:12/10/2024 08:45:00 AM Scheduled Provider:Radha Whitten MD Location:[facility] Appointment Type:URO Office Visit [facility] evaluation note* Diagnosis Prostate cancer (HCC)- Primary Malignant neoplasm of prostate documented [facility] this encounter [facility] Diagnosis Prostate cancer (HCC)- Primary Malignant neoplasm of prostate documented in this encounter [facility]* Diagnosis Prostate cancer (HCC)- Primary Malignant neoplasm of prostate Abdominal mass, left lower quadrant Abdominal or pelvic swelling, mass, or lump, left lower quadrant documented in this encounter [facility]* Diagnosis Prostate cancer (HCC) Malignant neoplasm of prostate Abdominal mass, left lower quadrant Abdominal or pelvic swelling, mass, or lump, left lower quadrant documented in this encounter [facility]* Diagnosis Malignant neoplasm of prostate (HCC)- Primary Malignant neoplasm of prostate documented [facility] this [facility]* Diagnosis Recurrent left inguinal hernia- Primary Inguinal hernia without mention of obstruction or gangrene, recurrent unilateral or unspecified Unilateral recurrent inguinal hernia without obstruction or gangrene Inguinal hernia without mention of obstruction or gangrene, recurrent unilateral or unspecified documented in this encounter [facility]* Diagnosis Obesity, Class I, BMI 30-34.9 [...] unilateral or unspecified documented in this encounter [facility]No [facility] [employer] Other Evaluation note* Diagnosis Malignant neoplasm of prostate (HCC)- Primary Malignant neoplasm of prostate documented in this encounter [facility] note* Diagnosis Malignant neoplasm of prostate (HCC)- Primary Malignant neoplasm of prostate documented in this encounter [facility] note* Diagnosis Onset Date Resolution Status Amaurosis fugax, right eye a cute Hypercholesterolemia acute Hypertension acute MIHIR (obstructive sleep apnea) acute Prostate cancer acute [facility] Work Phone: Evaluation note* Diagnosis Ventral incisional hernia documented in this encounter [facility] note* Diagnosis S/P repair of ventral hernia- Primary Other postprocedural status documented in this encounter [facility] note* Diagnosis Onset Date Resolution Status Anemia acute Hypercholesterolemia acute Hypertension acute MCI (mild cognitive impairment) acute Obesity acute MIHIR (obstructive sleep apnea) acute Prostate cancer acute [facility] Work Phone: Evaluation note* Diagnosis Malignant neoplasm of prostate (HCC)- Primary Malignant neoplasm of prostate documented in this encounter [facility] general Narrative - Reported* Type Description Date [...] History COLONOSCOPY Hospitalization History SEE SURGICAL HX [employer] Other History general Narrative - Reported* Type [...] 03/03 23 Hospitalization History SEE SURGICAL HX [facility] Other History general Narrative - Reported* Type [...] 03/03 23 Hospitalization History SEE SURGICAL HX [facility] Other Hospital course Narrative No data available for this section [facility] progress note No data available for this section [facility] Reason for Referral Specialty Diagnoses / Procedures Referred By Britney suarez Referred To Contact MR IMAGING Diagnoses Prostate cancer (HCC) Abdominal mass, left lower quadrant Procedures MRI PELVIS WO/W IVCON MRI PELVIS W/O & W/CONTRAST MATERIAL Aaliyah Hernandez MD [address] [place] [address] [place] [address] Mr Imaging Referral ID Status Reason Start Date Expiration Date Visits Requested Visits Authorized [id number] Authorized Auto-Generat ed Referral 11/09/2022 12/09/2023 1 [...] Care Team (unrecognized sect ion and content) Section Hand Helper Relationship Specialty Start Date End Date Bro Chavez, DO [address] [facility] [place] [address] PCP - General Internal Medicine 05/10/21 Section Hand Helper Relationship Specialty Start Date End Date Bro Chavez, DO [address] [place] [facility] [place] [address] PCP - General Internal Medicine 05/10/21 Section Hand Helper Relationship Specialty Start Date End Date Bro Chavez, DO [address] [place] [facility] [place] [address] PCP - General Internal Medicine 05/10/21 Section Hand Helper Relationship Specialty Start Date End Date Bro Chavez, DO [address] [facility] [place] [address] PCP - General Internal Medicine 05/10/21 Section Hand Helper Relationship Specialty Start Date End Date Bro Chavez, DO [address] [facility] [place] [address] PCP - General Internal Medicine 05/10/21 Section Hand Helper Relationship Specialty Start Date End Date Bro Chavez, DO [address] [facility] [place] [address] PCP - General Internal Medicine 05/10/21 Section Hand Helper Relationship Specialty Start Date End Date Bro Chavez, DO [address] [facility] [place] [address] PCP - General Internal Medicine 05/10/21 Section Hand Helper Relationship Specialty Start Date End Date Bro Chavez, DO [address] [place] [facility] [place] [address] PCP - General Internal Medicine 05/10/21 Radha Whitten MD [address] [place] [address] Urology 12/21/22 Section Hand Helper Relationship Specialty Start Date End Date Bro Chavez, DO [address] [place] [facility] [place] [address] PCP - General Internal Medicine 05/10/21 Radha Whitten MD [address] [place] [address] Urology 12/21/22 Section Hand Helper Relationship Specialty Start Date End Date Kathy Bro Roche, DO [address] [place] [facility] [place] [address] PCP - General Internal Medicine 05/10/21 Radha Whitten MD [address] [place] [address] Urology 12/21/22 Section Hand Helper Relationship Specialty Start Date End Date Bro Chavez DO [address] [place] [facility] [place] [address] PCP - General Internal Medicine 05/10/21 Radha Whitten MD [address] [place] [address] Urology 12/21/22 Section Hand Helper Relationship Specialty Start Date End Date Bro Chavez DO [address] [place] [place] [place] [address] PCP - General Internal Medicine 05/10/21 Radha Whitten MD [address] [place] [address] Urology 12/21/22 Team Status: Active Member Role [...] February 12, 2024 End: February 12, 2024 Section Hand Helper Relationship Specialty Start Date End Date Bro Chavez DO [address] [place] [address] PCP - General Internal Medicine 05/10/21 Radha Whitten MD [address] [place] [place] [address] Urology 12/21/22 Section Hand Helper Relationship Specialty Start Date End Date Bro Chavez DO [address] [place] [address] PCP - General Internal Medicine 05/10/21 Radha Whitten MD [address] [place] [address] Urology 12/21/22 Section Hand Helper Relationship Specialty Start Date End Date Bro Chavez DO [address] [place] [address] PCP - General Internal Medicine 05/10/21 Radha Whitten MD [address] [place] [place] [address] Urology 12/21/22 Section Hand Helper Relationship Specialty Start Date End Date Bro Chavez DO [address] [place] [id number] PCP - General Internal Medicine 05/10/21 Radha Whitten MD [address] [place] [address] Urology 12/21/22 Team Status: Inactive Member Role [...] or prosecute any alcohol or drug abuse patient.[facility] the event this information is protected by the Federal Confidentiality of Alcohol and Drug Abuse Patient Records regulations: The Federal rules restrict any use of the information to criminally investigate or prosecute any alcohol or drug abuse patient.[facility] the event this information is protected by the Federal Confidentiality of Alcohol and Drug Abuse Patient Records regulations: The Federal rules restrict any use of the information to criminally investigate or prosecute any alcohol or drug abuse patient.[facility] the event this information is protected by the Federal Confidentiality of Alcohol and Drug Abuse Patient Records regulations: The Federal rules restrict any use of the information to criminally investigate or prosecute any alcohol or drug abuse patient.[facility] the event this information is protected by the Federal Confidentiality of Alcohol and Drug Abuse Patient Records regulations: The Federal rules restrict any use of the information to criminally investigate or prosecute any alcohol or drug abuse patient.[facility] the event this information is protected by the Federal Confidentiality of Alcohol and Drug Abuse Patient Records regulations: The Federal rules restrict any use of the information to criminally investigate or prosecute any alcohol or drug abuse patient.[facility] the event this information is protected by the Federal Confidentiality of Alcohol and Drug Abuse Patient Records regulations: The Federal rules restrict any use of the information to criminally investigate or prosecute any alcohol or drug abuse patient.[facility] the event this information is protected by the Federal Confidentiality of Alcohol and Drug Abuse Patient Records regulations: The Federal rules restrict any use of the information to criminally investigate or prosecute any alcohol or drug abuse patient.[facility] the event this information is protected by the Federal Confidentiality of Alcohol and Drug Abuse Patient Records regulations: The Federal rules restrict any use of the information to criminally investigate or prosecute any alcohol or drug abuse patient.[facility]In the event this information is protected by the Federal Confidentiality of Alcohol and Drug Abuse Patient Records regulations: The Federal rules restrict any use of the information to criminally investigate or prosecute any alcohol or drug abuse patient.[facility]In the event this information is protected by the Federal Confidentiality of Alcohol and Drug Abuse Patient Records regulations: The Federal rules restrict any use of the information to criminally investigate or prosecute any alcohol or drug abuse patient.[facility]In the event this information is protected by the Federal Confidentiality of Alcohol and Drug Abuse Patient Records regulations: The Federal rules restrict any use of the information to criminally investigate or prosecute any alcohol or drug abuse patient.[facility]hillIn the event this information is protected by the Federal Confidentiality of Alcohol and Drug Abuse Patient Records regulations: The Federal rules restrict any use of the information to criminally investigate or prosecute any alcohol or drug abuse patient.[facility]In the event this information is protected by the Federal Confidentiality of Alcohol and Drug Abuse Patient Records regulations: The Federal rules restrict any use of the information to criminally investigate or prosecute any alcohol or drug abuse patient.[facility]hillIn the event this information is protected by the Federal Confidentiality of Alcohol and Drug Abuse Patient Records regulations: The Federal rules restrict any use of the information to criminally investigate or prosecute any alcohol or drug abuse patient.[facility]In the event this information is protected by the Federal Confidentiality of Alcohol and Drug Abuse Patient Records regulations: The Federal rules restrict any use of the information to criminally investigate or prosecute any alcohol or drug abuse patient.[facility]hillIn the event this information is protected by the Federal Confidentiality of Alcohol and Drug Abuse Patient Records regulations: The Federal rules restrict any use of the information to criminally investigate or prosecute any alcohol or drug abuse patient.[facility] Reason for Visit (unrecogniz ed section and content) Reason Comments Prostate Cancer Reason Comments Prostate Cancer Specialty Diagnoses / Procedures Referred By Contac t Referred To Contact MR IMAGING Diagnoses Prostate cancer (HCC) Abdominal mass, left lower quadrant Procedures MRI PELVIS WO/W IVCON MRI PELVIS W/O & W/CONTRAST MATERIAL Aaliyah Hernandez MD [address] [place] [address] [place] [address] Mr Imaging Referral ID Status Reason Start Date Expiration Date V isits Requested Visits Authorized [id number] Closed Auto-Generate d Referral 11/09/2022 12/09/2023 1 1 Reason Comments New Reason Comments Pre-Op Visit Reason Comments Radiology CT Specialty Diagnoses / Procedures Referred By Contac t Referred To Contact CT IMAGING Diagnoses Ventral incisional hernia Procedures CT ABD/PEL WO IVCON CT ABD & P[place] [address] [place] [address] [place] [address] Referral ID Status Reason Start Date Expiration Date V isits Requested Visits Authorized [id number] Closed Auto-Generate d Referral 02/27/2024 04/18/2024 1 1 Reason Comments Follow Up 1 year (unrecognized sect ion and content) No Status Records FoundNo Status Records FoundNo Status Records FoundNo Status Records FoundNo Status Records Found INFORMATION SOURCE (unrecogn ized section and content) DATE CREATED AUTHOR 02/25/2023 [facility] DATE CREATED AUTHOR AUTHOR'S ORGANIZ ATION 02/28/2023 [facility] DATE CREATED AUTHOR AUTHOR'S ORGANIZ ATION 03/24/2024 [facility] EPIC DATE CREATED AUTHOR AUTHOR'S ORGANIZ ATION 05/26/2024 [facility] DATE CREATED AUTHOR AUTHOR'S ORGANIZ ATION 06/05/2024 [facility] Goals (unrecognized section and content) Goals [...] BE BASED ON THE PRIMARY CLINICAL RECORDS. [facility]. provides no warranty or guarantee of the accuracy or completeness of information in this document.
--- NOTE | 2024-06-30 10:44 | CM.DCFOLLOWU ---
Person spoke with:patient How are you feeling? well, walking with his right now How is your pain? none Did you understand your discharge instructions? yes Do you have any questions about your discharge instructions? him and did inquire what the final results were of testing, but advised that Dr. Guardado will review at follow up on Sunday Were you given any prescriptions at discharge? yes Were you able to get your prescriptions filled? yes Do you understand how to take your medications as ordered? yes Do you have any questions about your follow up appointment and do you plan to keep your follow up appointment? no questions, follow up on Sunday Is there anything else that you would like to discuss? no Questions/Comments/Concerns/Other: none
== END 2024-06-28 14:27 | disposition home or self-care (01) ==
LOC: ER 12:10 → MS 13:20
PROVIDERS: Admitting Provider Internal Medicine; Emergency Provider Emergency Medicine; PCP Internal Medicine; Visit Provider Family Medicine
DX: R07.9 Chest pain, unspecified (principal); I10 Essential (primary) hypertension; E78.5 Hyperlipidemia, unspecified; M10.9 Gout, unspecified; Z79.899 Other long term (current) drug therapy
CPT/HCPCS: 36415; 71045; 80053; 80061; 83036; 84484; 85025; 93005; 93242; 94761; 96372; 99285; G0378; J1650

== ENCOUNTER 2024-07-10 10:48 | Outpatient (OUT) | payer MEDICARE, OTHER, SELFPAY ==
--- NOTE | 2024-07-10 10:20 | NM_ITS ---
Patient Name: YONI RAMIREZ MR#: [id number] : 1945 Exam Date: 07/10/2024 Ordering Doctor: DR Bro Guardado D.O. RADIOLOGY REPORT PROCEDURE: NM RAFFI PERF SPECT REST STR COMPARISON: None. INDICATIONS: CHEST PAIN TECHNIQUE: Exam Description: Stress/Rest one day protocol gated SPECT Rest Imagin.8 mCi Tc-99m Cardiolite IV on 07/10/2024 Stress Imaging 30.4 mCi Tc-99m Cardiolite IV on 07/10/2024 Exercise Protocol: 0.4 mg Lexiscan given IV Heart Rate (bpm): Rest: 54 Max: 82 PMHR: 57 Blood Pressure: Rest: 160/82 Max: 160/82 Symptoms: CHEST PAIN Rest and peak stress ECG findings were abnormal and the exercise portion of the study was abnormal per attending physician Dr. Mao Guardado . For more details please see separate cardiac stress test report. FINDINGS: QUALITY OF STUDY: Excellent. PERFUSION DEFECT: LOCATION: Basal inferior. Mid-inferior. Apical inferior. SIZE: Medium (3-4 segments). SEVERITY: Severe at the base, moderate within mid region and mild near apex. TYPE: Persistent. WALL MOTION: Normal. LV SIZE: Normal. 144 mL. TID / TCD: None; 1.0 LVEF: Normal. Calculated EF 55%. SUMMARY: Myocardial perfusion imaging study has ABNORMAL findings. CONCLUSION: 1. No acute or reversible ischemia. 2. Fixed inferior wall perfusion defect versus diaphragm attenuation artifact. 3. Left ventricle ejection fraction is lower limits of normal, 55%. 4. Left ventriculomegaly, 144 mL. No appreciable abnormal wall movement. Dictated by: Noe Lau M.D. on 07/10/2024 at 15:31 Approved by: Noe Lau M.D. on 07/10/2024 at 15:37
[2024-07-10] MEDS: REGADENOSON 0.4 MG/5 ML SYRINGE IV (12:56)
--- NOTE | 2024-07-10 13:08 | PM.STRESS ---
Stress Test Stress Test Allergies Allergy/AdvReac Type Severity Reaction Status Date / Time No Known Drug Allergies Allergy Verified 06/27/24 10:46 Requesting physician: Bro Guardado General Information: Reason for Stress Test: Evaluation for exertional chest pain Cardiac History and Risk Factors: 79 y/o patient with HTN, HLD and gout presenting with exertional chest pain. Resting 12 - Lead Electrocardiogram: Sinus bradycardia with ventricular rate of 52 bpm. First degree AV block and RBBB with secondary ST/T wave changes. Stress Test: Protocol: Lexiscan protocol Exercise Capacity: Not applicable Blood Pressure Response: Mr. Simpson's BP decreased during infusion, which is an appropriate response Rhythm: He remained in sinus rhythm with occasional PVCs ST - Response: There were no ST/T wave changes during infusion Patient Response: Mr. Simpson developed an occipital headache and SSCP, described as burning, during infusion. He required 25mg of Aminophylline during the recovery phase for resolution. Interpretation: There was subjective symptoms suggestive of myocardial ischemia. No EKG changes were noted. Cardiolite was injected with images and interpretation pending.
[2024-07-10] MEDS: AMINOPHYLLINE 250 MG/10 ML VIAL 25 MG IVP (13:23)
== END 2024-07-10 10:49 | disposition home or self-care (01) ==
LOC: NM 10:49
PROVIDERS: PCP Internal Medicine; Visit Provider Internal Medicine
DX: R07.9 Chest pain, unspecified (principal)
CPT/HCPCS: 78452; 93017; J0280; J2785

== ENCOUNTER 2024-07-14 18:58 | Emergency (ER) | payer MEDICARE, OTHER, SELFPAY ==
[2024-07-14] VITALS (22 sets, daily range): BP systolic 99–170; BP diastolic 49–87; PULSE 58–81; TEMP 36.6; O2SAT 92–97; BMI 31.6
--- NOTE | 2024-07-14 19:16 | ECG_ITS ---
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
--- NOTE | 2024-07-14 19:16 | XR_ITS ---
The [address] [address] Patient Name: YONI RAMIREZ MRN: [id number] date: 1945 Sex: M Assigned Patient Location: ER Current Patient Location: ER Accession/Order Number: [id number] Exam Date: 07/14/2024 19:32 Report Date: 07/14/2024 19:50 At the request of: MARCEL FLOWERS Procedure: XR chest 1V EXAM: XR chest 1V at 1924 hours HISTORY: Chest pain COMPARISON: 06/27/2024 TECHNIQUE: AP upright portable chest x-ray FINDINGS: The heart is borderline enlarged without overt cardiac decompensation. No acute infiltrate, effusion or pneumothorax is identified. The osseous structures are grossly intact. XR/XR chest 1V IMPRESSION: No acute infiltrate or evidence of cardiac decompensation. The overall appearance of the chest is essentially unchanged. Electronically authenticated by: PAO VALLADARES Date: 07/14/2024 19:50
--- NOTE | 2024-07-14 19:17 | ED.CHESTPAI1 ---
HPI - Chest Pain General Chief Complaint: Chest Pain Stated Complaint: Chest Pain Time Seen by Provider: 07/14/24 19:10 Source: patient Mode of arrival: walk-in Limitations: no limitations History of Present Illness HPI narrative: Patient is a 79-year-old male with a history of hypertension, hyperlipidemia who presents to the emergency department with his for evaluation of retrosternal chest pain that began while he was mowing the lawn. This patient was seen in this emergency department 2 weeks ago for burning pain across the chest, he was admitted for chest pain rule out and was discharged home. He states he is due for a cardiac scan tomorrow. He states tonight prior to arrival he was mowing the lawn when he developed retrosternal chest pain that was much more significant. He states his pain is worse and different than previous. He states that this time the chest pain has eased some and is only a pressure. He denies jaw pain, arm, abdominal pain. He denies tobacco abuse, he has no significant family history of coronary artery disease, he has never had previous heart attack or stroke. He does not have any stents in his heart. Risk Factors Coronary artery disease risk factors: hyperlipidemia and hypertension Related Data Home Medications ?Medication ?Instructions ?Recorded ?Confirmed allopurinol 300 mg tablet 300 mg PO DAILY 06/27/24 07/14/24 amlodipine 5 mg tablet 5 mg PO DAILY 06/27/24 07/14/24 aspirin 81 mg tablet,delayed 81 mg PO DAILY 06/27/24 07/14/24 release (Adult Aspirin Regimen) atorvastatin 20 mg tablet 20 mg PO DAILY 06/27/24 07/14/24 lisinopril 10 mg tablet 10 mg PO BEDTIME 06/27/24 07/14/24 lisinopril 20 1 tab PO DAILY 06/27/24 07/14/24 mg-hydrochlorothiazide 25 mg tablet isosorbide mononitrate 30 mg 30 mg PO DAILY 07/14/24 07/14/24 tablet,extended release 24 hr Previous Rx's ?Medication ?Instructions ?Recorded carvedilol 6.25 mg tablet 6.25 mg PO BID 7 days #14 tabs 06/28/24 nitroglycerin 0.4 mg sublingual 0.4 mg sublingual Q5M PRN chest 07/15/24 tablet pain #10 tabs Allergies Allergy/AdvReac Type Severity Reaction Status Date / Time No Known Drug Allergies Allergy Verified 07/14/24 19:09 Review of Systems ROS Constitutional Denies: fever or chills Ears, nose, mouth, and throat Denies: throat pain or nasal congestion Cardiovascular Reports: chest pain Respiratory Denies: shortness of breath or cough Gastrointestinal Denies: abdominal pain, nausea or vomiting Musculoskeletal Denies: back pain or neck pain Integumentary/Breast Denies: rash Hematologic/Lymphatic Denies: easy bruising or easy bleeding PFSH PFSH Medical History (Updated 07/14/24 @ 20:58 by BURKE Jones) Inguinal hernia ?K40.90 - Unilateral inguinal hernia, without obstruction or gangrene, not specified as recurrent (ICD-10) Umbilical hernia ?K42.9 - Umbilical hernia without obstruction or gangrene (ICD-10) Gout ?M10.9 - Gout, unspecified (ICD-10) Hyperlipidemia ?E78.5 - Hyperlipidemia, unspecified (ICD-10) History of prostate cancer ?Z85.46 - Personal history of malignant neoplasm of prostate (ICD-10) Hypertension ?I10 - Essential (primary) hypertension (ICD-10) Surgical History (Updated 06/27/24 @ 13:16 by Mariah Watkins RN) Hx of tonsillectomy ?Z90.89 - Acquired absence of other organs (ICD-10) H/O prostatectomy ?Z90.79 - Acquired absence of other genital organ(s) (ICD-10) Family History (Updated 06/27/24 @ 13:17 by Mariah Watkins RN) Mother Family history of CHF (congestive heart failure) Family history of cancer Family history of COPD (chronic obstructive pulmonary disease) Father Family history of CHF (congestive heart failure) Family history of cancer Family history of COPD (chronic obstructive pulmonary disease) Family history of hypertension Social History Within the past year, how often did you have a drink containing alcohol: never Score interpretation: A score less than 4 is consistent with normal alcohol consumption. Smoking status: Never smoker Non-prescribed substance use: denies use Highest level of school completed/degree received: Bachelor's degree Little interest or pleasure in doing things: not at all Feeling down, depressed, or hopeless: not at all Do you think of yourself as: straight/heterosexual Gender Identity: male Exam Narrative Exam Narrative: Gen.: Awake, alert, in no distress Head: Normocephalic, atraumatic ENT: Moist mucous membranes Respiratory: No respiratory distress, lungs clear bilaterally Cardio: Regular rate and rhythm Gastrointestinal: Abdomen is soft, nondistended and nontender to palpation Extremities: Moves extremities equally, no pedal edema Psych: Normal mood and affect Neuro: No focal neuro deficit Skin: Warm, dry, intact Constitutional Vital Signs, click to edit/add: Last Vital Signs Temp 97.8 F 07/14/24 19:03 Pulse 56 L 07/15/24 16:00 Resp 20 07/15/24 16:00 BP 160/70 H 07/15/24 14:01 Pulse Ox 97 07/15/24 09:53 O2 Del Method Room Air 07/14/24 19:03 Course Vital Signs Vital signs: Vital Signs Temperature 97.8 F 07/14/24 19:03 Pulse Rate 81 07/14/24 19:03 Respiratory Rate 18 07/14/24 19:03 Blood Pressure 170/87 H 07/14/24 19:03 Pulse Oximetry 95 07/14/24 19:03 Oxygen Delivery Method Room Air 07/14/24 19:03 Temperature 97.8 F 07/14/24 19:03 Pulse Rate 56 L 07/15/24 16:00 Respiratory Rate 20 07/15/24 16:00 Blood Pressure 160/70 H 07/15/24 14:01 Pulse Oximetry 97 07/15/24 09:53 Oxygen Delivery Method Room Air 07/14/24 19:03 MDM - Chest Pain MDM Narrative Medical decision making narrative: 2055: On arrival to the ER, patient had EKG obtained with IV established and labs drawn. Chest x-ray was also performed. Is noted to have no new EKG changes from 06/27/2024. He received aspirin and 1 sublingual nitro in the emergency department with almost complete cessation of his pain, he reports only mild discomfort at this time. Laboratory studies, initial troponin within normal limits. I discussed the case with Dr. Joseph, patient and his prefer cardiology through [facility]. Dr. Joseph was made aware of the patient's presentation and given that the patient still has mild discomfort, he recommended half an inch of Nitropaste, heparin drip and transfer to [facility] with cardiology evaluation in the morning. Patient and his are comfortable with this treatment plan. We contacted [facility] but at this time they are full so the patient is not yet excepted to [facility]. We are awaiting the hospitalist to call when the hospital has capacity for the patient. He will be boarded in the emergency department until that time. Case is turned over to attending physician for transfer. 07/15/24 @ 16:34 -this patient was signed out to attending physician last evening and signed out to the morning physician this morning at 7 AM. He had no significant overnight events and chest pain is well-controlled. He had multiple troponins within normal limits, uptrending slightly. He was kept on a heparin drip per cardiology, [facility] did not have any beds for the patient to have him transferred. We received a call at 1630 from [facility] stating that Dr. Joseph recommended the patient be discharged home on aspirin and sublingual nitroglycerin. This was communicated to attending physician by Dr. Joseph directly, patient was reevaluated by attending physician and discussed outpatient management with him. Patient is comfortable with treatment plan. He is resting comfortably at this time and will be discharged home to continue aspirin, sublingual nitroglycerin given and patient's contact information was given to [facility]. Dr. Joseph's office will reach out to him. SHARED APC VISIT, PHYSICIAN ATTESTATION: [id number] I performed a substantive part of the MDM during the patient?s E/M visit. I personally evaluated and examined the patient. I personally made or approved the documented management plan and acknowledge its risk of complications. Medical Records Data Attestation: I reviewed the patient's medical records. Lab Data Attestation: I reviewed the patient's lab results. Labs: Lab Results 07/14/24 07/14/24 07/14/24 Range/Units 19:10 19:10 19:10 WBC 6.1 (4.0-11.0) 10^3/uL RBC 4.29 L (4.70-6.10) 10^6/uL Hgb 13.6 L (14.0-18.0) g/dL Hct 40.0 L (42.0-54.0) % MCV 93.2 (80.0-94.0) fL MCH 31.7 (25.9-34.0) pg MCHC 34.0 (29.9-35.2) g/dL RDW 16.3 H (11.0-15.0) % Plt Count 167 (150-450) 10^3/uL MPV 10.8 (9.5-13.5) fL Neut % (Auto) 62.9 (43.0-75.0) % Lymph % (Auto) 21.9 (20.5-60.0) % Clinton % (Auto) 11.2 (1.7-12.0) % Eos % (Auto) 3.1 (0.9-7.0) % Baso % (Auto) 0.7 (0.2-2.0) % Neut # (Auto) 3.8 (1.4-6.5) 10^3/uL Lymph # (Auto) 1.3 (1.2-3.8) 10^3/uL Clinton # (Auto) 0.7 (0.3-0.8) 10^3/uL Eos # (Auto) 0.2 (0.0-0.7) 10^3/uL Baso # (Auto) 0.0 (0.0-0.1) 10^3/uL Abs Immat Gran (auto) 0.01 (0.00-0.03) 10^3/uL Imm/Tot Granulo (auto) 0.2 (0.0-0.5) % PT 11.0 10.9 (9.0-11.6) sec INR 1.04 1.03 APTT 27.9 (22.3-36.2) sec PTT (Heparin Absorb) (48.2-68.6) sec Sodium 141 (136-145) mmol/L Potassium 3.3 L (3.5-5.1) mmol/L Chloride 105 (98-107) mmol/L Carbon Dioxide 32.0 (21.0-32.0) mmol/L Anion Gap 7.3 BUN 14.0 (7.0-18.0) mg/dL Creatinine 0.94 (0.70-1.30) mg/dL Est GFR ( Amer) >60 (>=60) Est GFR (Non-Af Amer) >60 (>=60) BUN/Creatinine Ratio 14.9 Glucose 110 H (74-106) mg/dL Calcium 9.7 (8.5-10.1) mg/dL Total Bilirubin 0.4 (0.2-1.0) mg/dL AST 15 (15-37) U/L ALT 22 (16-63) U/L Alkaline Phosphatase 110 (46-116) U/L Total Creatine Kinase (39-308) U/L CK-MB (CK-2) (<=3.60) ng/mL Troponin I High Sens 9.1 (4.0-76.1) pg/mL NT-Pro-B Natriuret Pep 127.0 (<=1800.0) pg/mL Total Protein 7.1 (6.4-8.2) g/dL Albumin 3.6 (3.4-5.0) g/dL Globulin 3.5 g/dL Albumin/Globulin Ratio 1.0 Lipase 36.0 (16.0-77.0) U/L 07/14/24 07/15/24 07/15/24 Range/Units 22:44 03:35 07:44 WBC (4.0-11.0) 10^3/uL RBC (4.70-6.10) 10^6/uL Hgb (14.0-18.0) g/dL Hct (42.0-54.0) % MCV (80.0-94.0) fL MCH (25.9-34.0) pg MCHC (29.9-35.2) g/dL RDW (11.0-15.0) % Plt Count (150-450) 10^3/uL MPV (9.5-13.5) fL Neut % (Auto) (43.0-75.0) % Lymph % (Auto) (20.5-60.0) % Clinton % (Auto) (1.7-12.0) % Eos % (Auto) (0.9-7.0) % Baso % (Auto) (0.2-2.0) % Neut # (Auto) (1.4-6.5) 10^3/uL Lymph # (Auto) (1.2-3.8) 10^3/uL Clinton # (Auto) (0.3-0.8) 10^3/uL Eos # (Auto) (0.0-0.7) 10^3/uL Baso # (Auto) (0.0-0.1) 10^3/uL Abs Immat Gran (auto) (0.00-0.03) 10^3/uL Imm/Tot Granulo (auto) (0.0-0.5) % PT (9.0-11.6) sec INR APTT (22.3-36.2) sec PTT (Heparin Absorb) 51.3 (48.2-68.6) sec Sodium (136-145) mmol/L Potassium (3.5-5.1) mmol/L Chloride (98-107) mmol/L Carbon Dioxide (21.0-32.0) mmol/L Anion Gap BUN (7.0-18.0) mg/dL Creatinine (0.70-1.30) mg/dL Est GFR ( Amer) (>=60) Est GFR (Non-Af Amer) (>=60) BUN/Creatinine Ratio Glucose (74-106) mg/dL Calcium (8.5-10.1) mg/dL Total Bilirubin (0.2-1.0) mg/dL AST (15-37) U/L ALT (16-63) U/L Alkaline Phosphatase (46-116) U/L Total Creatine Kinase 59 (39-308) U/L CK-MB (CK-2) 0.80 (<=3.60) ng/mL Troponin I High Sens 20.5 22.0 23.4 (4.0-76.1) pg/mL NT-Pro-B Natriuret Pep (<=1800.0) pg/mL Total Protein (6.4-8.2) g/dL Albumin (3.4-5.0) g/dL Globulin g/dL Albumin/Globulin Ratio Lipase (16.0-77.0) U/L 07/15/24 Range/Units 09:40 WBC (4.0-11.0) 10^3/uL RBC (4.70-6.10) 10^6/uL Hgb (14.0-18.0) g/dL Hct (42.0-54.0) % MCV (80.0-94.0) fL MCH (25.9-34.0) pg MCHC (29.9-35.2) g/dL RDW (11.0-15.0) % Plt Count (150-450) 10^3/uL MPV (9.5-13.5) fL Neut % (Auto) (43.0-75.0) % Lymph % (Auto) (20.5-60.0) % Clinton % (Auto) (1.7-12.0) % Eos % (Auto) (0.9-7.0) % Baso % (Auto) (0.2-2.0) % Neut # (Auto) (1.4-6.5) 10^3/uL Lymph # (Auto) (1.2-3.8) 10^3/uL Clinton # (Auto) (0.3-0.8) 10^3/uL Eos # (Auto) (0.0-0.7) 10^3/uL Baso # (Auto) (0.0-0.1) 10^3/uL Abs Immat Gran (auto) (0.00-0.03) 10^3/uL Imm/Tot Granulo (auto) (0.0-0.5) % PT (9.0-11.6) sec INR APTT (22.3-36.2) sec PTT (Heparin Absorb) 61.0 (48.2-68.6) sec Sodium (136-145) mmol/L Potassium (3.5-5.1) mmol/L Chloride (98-107) mmol/L Carbon Dioxide (21.0-32.0) mmol/L Anion Gap BUN (7.0-18.0) mg/dL Creatinine (0.70-1.30) mg/dL Est GFR ( Amer) (>=60) Est GFR (Non-Af Amer) (>=60) BUN/Creatinine Ratio Glucose (74-106) mg/dL Calcium (8.5-10.1) mg/dL Total Bilirubin (0.2-1.0) mg/dL AST (15-37) U/L ALT (16-63) U/L Alkaline Phosphatase (46-116) U/L Total Creatine Kinase (39-308) U/L CK-MB (CK-2) (<=3.60) ng/mL Troponin I High Sens (4.0-76.1) pg/mL NT-Pro-B Natriuret Pep (<=1800.0) pg/mL Total Protein (6.4-8.2) g/dL Albumin (3.4-5.0) g/dL Globulin g/dL Albumin/Globulin Ratio Lipase (16.0-77.0) U/L Imaging Data Chest x-ray: Attestation: I have reviewed the pertinent imaging results. Radiologist's impression: ITS Impressions Chest X-Ray 07/14/24 19:16 IMPRESSION: No acute infiltrate or evidence of cardiac decompensation. The overall appearance of the chest is essentially unchanged. Electronically authenticated by: PAO VALLADARES Date: 07/14/2024 19:50 ECG Data Attestation: I personally reviewed and interpreted this ECG as follows: (Normal sinus rhythm at a rate of 76, first-degree AV block with no acute ST elevation or ectopy. No significant EKG change from 06/27/2024. EKG reviewed by attending physician) Discharge Plan Discharge Chief Complaint: Chest Pain Clinical Impression: Chest pain Patient Disposition: Home, Self-Care Time of Disposition Decision: 16:32 Condition: Good Prescriptions / Home Meds: New nitroglycerin 0.4 mg tablet, sublingual 0.4 mg sublingual Q5M PRN (Reason: chest pain) Qty: 10 0RF Rx Instructions: do not exceed 3 doses per episode No Action allopurinol 300 mg tablet 300 mg PO DAILY amlodipine 5 mg tablet 5 mg PO DAILY atorvastatin 20 mg tablet 20 mg PO DAILY lisinopril 10 mg tablet 10 mg PO BEDTIME lisinopril-hydrochlorothiazide 20-25 mg tablet 1 tab PO DAILY aspirin [Adult Aspirin Regimen] 81 mg tablet,delayed release (DR/EC) 81 mg PO DAILY carvedilol 6.25 mg Tablet 6.25 mg PO BID 7 Days Qty: 14 0RF isosorbide mononitrate 30 mg tablet extended release 24 hr 30 mg PO DAILY Print Language: Kinyarwanda Instructions: Chest Pain (ED) Additional Instructions: Dr. Joseph's office will contact you for further follow up and instructions Referrals: Bro Guardado DO [Primary Care Provider] - 1 week
--- OUTSIDE RECORDS SUMMARY | 2024-07-14 19:23 | XMS_ITS | CCD ---
Author Organization [facility] CliniSyfl Care Team Providers Care Deflector Operator Name Role Phone BRO CHAVEZ Primary Care Physician [phone] Bro Chavez DO Primary Care Provider Bro [...] Unavailable ZIPITER, DR MIKE Rankin Consulting Unavailable FISH ., RADHA Carmen Consulting Unavailable KATHY, DR LYMAN Admitting Unavailable KATHY, DR LYMAN Attending Unavailable KATHY, DR LYMAN Primary Care Unavailable KATHY, DR LYMAN Consulting Unavailable DONATO BISHOP Admitting Unavailable DONATO BISHOP Attending Unavailable BRO CHAVEZ Primary Care Unavailable VANDANA HERNANDEZ Referring Unavaila BRO Merritt Primary Care Unavailable BRO CHAVEZ Primary Care Unavailable VERONICA HIGH Attending Unavailable DEBBIE ANDRE Attending Unavailable Bro Chavez DO Primary Care Provider BRO CHAVEZ Referring Unavailable DONATO BISHOP Attending Unavailable BRO CHAVEZ Primary Care Unavailable Aaliyah HERNANDEZ Attending Unavailable BRO CAHVEZ Primary Care Unavailable BRO CHAVEZ Primary Care Unavailable BRO CHAVEZ Primary Care Unavailable Aaliyah [...] (14 sources) Ciprofloxacin Drug Allergy 8 Unknown PeptiVir Other (1 source) No Known Medication Allergies; Translations: [No Known Medication Allergies] Propensity to adverse reactions (disorder) [facility] Repository Medications Current Medications Medication Drug Class(es) Dates Sig (Normalized) Sig (Original) allopurinol 300 mg oral tablet (20 sources) Xanthine Oxidase Inhibitor Start: 03-09-2024 Allopurinol Active 0 .ROUTE .COMPLEX March 09, 2024 3:50pm TAKE 1 TABLET DAILY Start: 04-22-2019 End: 03-09-2024 take 300 mg by mouth once daily Allopurinol Discontinued 300 MG PO Daily February 11, 2024 12:00am March 09, 2024 3:50pm Comment on above: Take 300 mg by [...] take 20 mg by mouth once daily Atorvastatin Discontinu ed 20 MG PO Daily February 11, 2024 12:00am March 09, 2024 3:50pm Comment on above: Take 20 mg by [...] Ordered Comment on above: twice daily with emmanuel ls. 6.25 mg twice daily with meals. [...] take 1 tablet by mouth once daily Lisinopril-Hydrochlorothiazide Discontin ued 1 TAB PO Daily February 11, 2024 12:00am March 09, 2024 3:50pm Comment on above: Take 1 tablet by [...] TABLET DAILY - TAKE ALONG WITH LISINOPRIL/HCTZ 20/25 Start: 03-28-2022 End: 03-09-2024 take 10 mg by mouth once daily Lisinopril Discontinued 10 MG PO Daily February 11, 2024 12:00am March 09, 2024 3:50pm along with Lisinopril/HCTZ 20/25 Start: 03-28-2022 lisinopril (ZE STRIL) 10 mg [...] Daily, # 30 tab(s), Refills(s) 11, Pharmacy: [facility] [id number], 177, cm, 11/08/22 11:01:00 EST, Height/Length Dosing, [...] application Externally Twice a day Active Vibegron (3 sources) Start: 02-11-2024 take 75 mg by mouth once daily Vibegron Active 75 MG PO Daily February 11, 2024 12:00am vibegron 75 MG Oral Tablet [Gemtesa] (2 sources) Start: 08-15-2023 take 1 tablet by mouth once daily Gemtesa 75 mg oral tablet 75 mg = 1 tab(s), Oral, Daily, # 30 tab(s), Refills(s) 11, Pharmacy: [facility] [id number], 177, cm, 08/15/23 8:49:00 EDT, Height/Length Dosing, [...] Comment on above: Take 2 tablets by mo [facility] every 6 hours as needed for pain. cefdinir 300 mg oral capsule (2 sources) Cephalosporin Antibacterial Start: 03-20-2023 End: 11-20-2023 take 1 capsule by mouth twice daily cefdinir (OMNICEF) 300 mg capsule Take 1 capsule by mouth twice daily. 10 capsule 0 03/20/2023 11/20/2023 Discontinued (Course of therapy completed) Comment on above: Take 1 capsule by mo [facility] twice daily. iv contrast (will [...] contrast administration guidelines link. lactobacillus rhamnosus gg [id number] unt oral capsule (2 sources) Start: 03-02-2023 [...] malignant neoplasm of prostate] Onset: 03-28-2022 Episodic Cardiac dysrhythmias (2 sources) Bradycardia; Translations: [Bradycardia, unspecified] 06-30-2024 Episodic Deficiency and other anemia (3 sources) Anemia, unspecified; Translations: [Anemia, unspecified] Episodic Deficiency and other anemia (3 sources) Anemia; Translations: [Anemia, unspecified] 01-29-2024 Episodic [...] sources) Primary insomnia; Translations: [Primary insomnia] Chronic Nonspecific chest pain (2 sources) Chest pain; Translations: [Chest pain, unspecified] 06-30-2024 Episodic Osteoarthritis (20 sources) Arthritis; Translations: [Osteoarthritis of right knee joint] 04-22-2019 Chronic Other aftercare (2 sources) Other long term care social worker (current) drug therapy Episodic Other and unspecified [...] Other hereditary and degenerative nervous system conditions (18 sources) Impaired cognition; Translations: [Mild cognitive impairment, so stated] 02-12-2024 Chronic Other hereditary and degenerative nervous system conditions (6 sources) Mild cognitive impairment, so stated; Translations: [...] Chronic Other nutritional; endocrine; and metabolic disorders (4 sources) Obesity, unspecified; Translations: [Obesity, unspecified] Chronic Other nutritional; endocrine; and metabolic disorders (9 sources) Obese class I; Translations: [Obesity, unspecified] Onset: 02-11-2023 Chronic Other nutritional; endocrine; and metabolic disorders (7 sources) Severe obesity; Translations: [Morbid (severe) obesity due to excess calories] Onset: 03-26-2023 03-26-2023 Chronic Other nutritional; endocrine; and metabolic disorders (2 sources) Obesity; Translations: [Obesity, unspecified] 02-12-2024 Chronic Other screening for suspected conditions (not mental disorders or infectious disease) (12 sources) Raised prostate specific antigen 10-21-2020 Episodic Other upper respiratory disease (2 sources) Seasonal allergic rhinitis; Translations: [Other seasonal allergic rhinitis] 04-09-2024 Chronic Other upper respiratory disease (2 sources) Epistaxis Episodic Residual codes; unclassified (20 sources) Obstructive sleep apnea syndrome; Translations: [Obstructive sleep apnea (adult) (pediatric)] Onset: 02-14-2023 Chronic Residual codes; unclassified (11 sources) Obstructive sleep apnea (adult) (pediatric); Translations: [...] Test Name Value Interpretation Reference Range Facility Basophils Auto (Bld) [#/Vol] on 06-28-2024 Basophils (Bld) [#/Vol] 0.0 10 3/uL 0.0-0.1 [facility] Basophils/100 WBC Auto (Bld) on 06-28-2024 Basophils/100 WBC (Bld) 0.4 % 0.2-2.0 [facility] Eosinophils/100 WBC Auto (Bl d)on 06-28-2024 Eosinophils/100 WBC (Bld) 1.8 % 0.9-7.0 [facility] Erythrocyte distribution wid th Auto (RBC) [Ratio]on 06-28-2024 Erythrocyte distribution width (RBC) [Ratio] 16.0 % High 11.0-15.0 [facility] Estimated glomerular filtrat ion rate (GFR) non- Americanon 06-28-2024 GFR/1.73 sq M.predicted among non-blacks MDRD (S/P/Bld) [Vol rate/Area] mL/min/{1.73_m2} >=60 [facility] Globulin Calc (S) [Mass/Vol] on 06-28-2024 Globulin (S) [Mass/Vol] 3.1 g/dL [facility] Hematocrit Auto (Bld) [Volum e fraction]on 06-28-2024 Hematocrit (Bld) [Volume fraction] 42.0 % 42.0-54.0 [facility] Hemoglobin [Mass/volume] in Bloodon 06-28-2024 Hemoglobin (Bld) [Mass/Vol] 14.2 g/dL 14.0-18.0 [facility] Laboratory - Chemistry and C hemistry - challengeon 06-28-2024 Albumin [Mass/Vol] 3.4 g/dL 3.4-5.0 [facility] ALP [Catalytic activity/Vol] 107 U/L 46-116 [facility] ALT [Catalytic activity/Vol] 25 U/L 16-63 [facility] AST [Catalytic activity/Vol] 18 U/L 15-37 [facility] Bilirubin [Mass/Vol] 1.0 mg/dL 0.2-1.0 [facility] Calcium [Mass/Vol] 9.3 mg/dL 8.5-10.1 [facility] Chloride [Moles/Vol] 107 mmol/L 98-107 [facility] CO2 [Moles/Vol] 30.9 mmol/L 21.0-32.0 [facility] Creatinine [Mass/Vol] 0.67 mg/dL Low 0.70-1.30 [facility] GFR/1.73 sq M.predicted MDRD (S/P/Bld) [Vol rate/Area] mL/min/{1.73_m2} >=60 [facility] Glucose [Mass/Vol] 99 mg/dL 74-106 [facility] Potassium [Moles/Vol] 3.7 mmol/L 3.5-5.1 [facility] Protein [Mass/Vol] 6.5 g/dL 6.4-8.2 [facility] Sodium [Moles/Vol] 144 mmol/L 136-145 [facility] Urea nitrogen [Mass/Vol] 14.0 mg/dL 7.0-18.0 [facility] Urea nitrogen/Creatinin e [Mass ratio] 20.9 mg/mg [facility] Laboratory - Hematology and Cell countson 06-28-2024 Immature granulocytes/100 WBC (Bld) 0.4 % 0.0-0.5 [facility] Leukocytes [#/volume] correc jignesh for nucleated erythrocytes in Blood by Automated counon 06-28-2024 WBC corrected for nucl RBC Auto (Bld) [#/Vol] 5.0 10 3/uL 4.0-11.0 [facility] Lymphocytes Auto (Bld) [#/Vo l]on 06-28-2024 Lymphocytes (Bld) [#/Vol] 1.0 10 3/uL Low 1.2-3.8 [facility] Lymphocytes/100 WBC Auto (Bl d)on 06-28-2024 Lymphocytes/100 WBC (Bld) 19.6 % Low 20.5-60.0 [facility] MCH Auto (RBC) [Entitic mass ]on 06-28-2024 MCH (RBC) [Entitic mass] 31.3 pg 25.9-34.0 [facility] MCHC Auto (RBC) [Mass/Vol]on 06-28-2024 MCHC (RBC) [Mass/Vol] 33.8 g/dL 29.9-35.2 [facility] MCV Auto (RBC) [Entitic vol] on 06-28-2024 MCV (RBC) [Entitic vol] 92.7 fL 80.0-94.0 [facility] Monocytes Auto (Bld) [#/Vol] on 06-28-2024 Monocytes (Bld) [#/Vol] 0.5 10 3/uL 0.3-0.8 [facility] Monocytes/100 WBC Auto (Bld) on 06-28-2024 Monocytes/100 WBC (Bld) 10.4 % 1.7-12.0 [facility] Neutrophils Auto (Bld) [#/Vo l]on 06-28-2024 Neutrophils (Bld) [#/Vol] 3.4 10 3/uL 1.4-6.5 [facility] Neutrophils/100 WBC Auto (Bl d)on 06-28-2024 Neutrophils/100 WBC (Bld) 67.4 % 43.0-75.0 [facility] No Panel Informationon 06-28 Eosinophils # (Auto) 0.1 10 3/uL 0.0-0.7 [facility] Immature Granulocyte # (Auto) 0.02 10 3/uL 0.00-0.03 [facility] Troponin I High Sensitivity 13.4 pg/mL 4.0-76.1 [facility] Comment on above: CUT-OFF POINTS HAVE BEEN ESTABLISHED BASED ON THE FOURTHUNIVERSAL DEFINITION OF MYOCARDIAL INFARCTION. THE UPPERREFERENCE LIMIT (URL) OF TROPONIN, DEFINED THE 99THPERCENTILE OF cTnI DISTRIBUTION IN A REFERENCE POPULATION,HAS BEEN CONFIRMED THE DECISION THRESHOLD FOR MIDIAGNOSIS.99TH PERCENTILE = 76.2 PG/MLNOTE: HIGH-SENSITIVITY TROPONIN ASSAY IS NOT INTENDED TO BEUSED IN ISOLATION BUT SHOULD BE INTERPRETED IN CONJUNCTIONWITH OTHER DIAGNOSTIC AND CLINICAL INFORMATION. Platelet mean volume Auto (B ld) [Entitic vol]on 06-28-2024 Platelet mean volume (Bld) [Entitic vol] 10.3 fL 9.5-13.5 [facility] Platelets Auto (Bld) [#/Vol] on 06-28-2024 Platelets (Bld) [#/Vol] 161 10 3/uL 150-450 [facility] RBC Auto (Bld) [#/Vol]on RBC (Bld) [#/Vol] 4.53 10 6/uL Low 4.70-6.10 [facility] Serum or plasma albumin/glob ulin mass ratioon 06-28-2024 Albumin/Globulin [Mass ratio] 1.1 {ratio} [facility] Serum or plasma anion gap de terminationon 06-28-2024 Anion gap [Moles/Vol] 9.8 mmol/L [facility] Basophils Auto (Bld) [#/Vol] on 06-27-2024 Basophils (Bld) [#/Vol] 0.0 10 3/uL 0.0-0.1 [facility] Basophils/100 WBC Auto (Bld) on 06-27-2024 Basophils/100 WBC (Bld) 0.8 % 0.2-2.0 [facility] Cholesterol in LDL Calc [Mas s/Vol]on 06-27-2024 Cholesterol in LDL [Mass/Vol] 82.6 mg/dL [facility] Comment on above: <100 mg/dl [id number] 0-129 mg/dl NEAR OR ABOVE [id number] mg/dl BORDERLINE [id number] mg/dl HIGH>190 mg/dl VERY HIGH Cholesterol in VLDL Calc [Ma ss/Vol]on 06-27-2024 Cholesterol in VLDL [Mass/Vol] 15.4 mg/dL [facility] Eosinophils/100 WBC Auto (Bl d)on 06-27-2024 Eosinophils/100 WBC (Bld) 2.7 % 0.9-7.0 [facility] Erythrocyte distribution wid th Auto (RBC) [Ratio]on 06-27-2024 Erythrocyte distribution width (RBC) [Ratio] 16.2 % High 11.0-15.0 [facility] Estimated glomerular filtrat ion rate (GFR) non- Americanon 06-27-2024 GFR/1.73 sq M.predicted among non-blacks MDRD (S/P/Bld) [Vol rate/Area] mL/min/{1.73_m2} >=60 [facility] Globulin Calc (S) [Mass/Vol] on 06-27-2024 Globulin (S) [Mass/Vol] 3.4 g/dL [facility] Glucose mean value [Mass/vol ume] in Blood Estimated from glycated hemoglobinon 06-27-2024 Average glucose Estimated from glycated hemoglobin (Bld) [Mass/Vol] 114 mg/dL [facility] Hematocrit Auto (Bld) [Volum e fraction]on 06-27-2024 Hematocrit (Bld) [Volume fraction] 40.7 % Low 42.0-54.0 [facility] Hemoglobin [Mass/volume] in Bloodon 06-27-2024 Hemoglobin (Bld) [Mass/Vol] 13.9 g/dL Low 14.0-18.0 [facility] Laboratory - Chemistry and C hemistry - challengeon 06-27-2024 Albumin [Mass/Vol] 3.6 g/dL 3.4-5.0 [facility] ALP [Catalytic activity/Vol] 101 U/L 46-116 [facility] ALT [Catalytic activity/Vol] 25 U/L 16-63 [facility] AST [Catalytic activity/Vol] 16 U/L 15-37 [facility] Bilirubin [Mass/Vol] 0.8 mg/dL 0.2-1.0 [facility] Calcium [Mass/Vol] 9.5 mg/dL 8.5-10.1 [facility] Chloride [Moles/Vol] 105 mmol/L 98-107 [facility] Cholesterol [Mass/Vol] 139 mg/dL <=200 [facility] Cholesterol in HDL [Mass/Vol] 41 mg/dL 40-60 [facility] Comment on above: > or =60 mg/dl - LOW CARDIOVASCULAR RISK<40 mg/dl - HIGH CARDIOVASCULAR RISK CO2 [Moles/Vol] 31.8 mmol/L 21.0-32.0 [facility] Creatinine [Mass/Vol] 0.65 mg/dL Low 0.70-1.30 [facility] GFR/1.73 sq M.predicted MDRD (S/P/Bld) [Vol rate/Area] mL/min/{1.73_m2} >=60 [facility] Glucose [Mass/Vol] 107 mg/dL High 74-106 [facility] Potassium [Moles/Vol] 3.6 mmol/L 3.5-5.1 [facility] Protein [Mass/Vol] 7.0 g/dL 6.4-8.2 [facility] Sodium [Moles/Vol] 141 mmol/L 136-145 [facility] Triglyceride [Mass/Vol] 77 mg/dL <=150 [facility] Urea nitrogen [Mass/Vol] 16.0 mg/dL 7.0-18.0 [facility] Urea nitrogen/Creatinin e [Mass ratio] 24.6 mg/mg [facility] Laboratory - Hematology and Cell countson 06-27-2024 HbA1c (Bld) [Mass fraction] 5.6 % 4.5-6.2 [facility] Comment on above: ADA RECOMMENDED LIMI T 4.0 - 6.0ADA THERAPEUTIC TARGET < 7.0ACTION SUGGESTED> 7.0 Immature granulocytes/100 WBC (Bld) 0.2 % 0.0-0.5 [facility] Leukocytes [#/volume] correc jignesh for nucleated erythrocytes in Blood by Automated counon 06-27-2024 WBC corrected for nucl RBC Auto (Bld) [#/Vol] 4.7 10 3/uL 4.0-11.0 [facility] Lymphocytes Auto (Bld) [#/Vo l]on 06-27-2024 Lymphocytes (Bld) [#/Vol] 1.0 10 3/uL Low 1.2-3.8 [facility] Lymphocytes/100 WBC Auto (Bl d)on 06-27-2024 Lymphocytes/100 WBC (Bld) 21.7 % 20.5-60.0 [facility] MCH Auto (RBC) [Entitic mass ]on 06-27-2024 MCH (RBC) [Entitic mass] 31.9 pg 25.9-34.0 [facility] MCHC Auto (RBC) [Mass/Vol]on 06-27-2024 MCHC (RBC) [Mass/Vol] 34.2 g/dL 29.9-35.2 [facility] MCV Auto (RBC) [Entitic vol] on 06-27-2024 MCV (RBC) [Entitic vol] 93.3 fL 80.0-94.0 [facility] Monocytes Auto (Bld) [#/Vol] on 06-27-2024 Monocytes (Bld) [#/Vol] 0.6 10 3/uL 0.3-0.8 [facility] Monocytes/100 WBC Auto (Bld) on 06-27-2024 Monocytes/100 WBC (Bld) 13.1 % High 1.7-12.0 [facility] Neutrophils Auto (Bld) [#/Vo l]on 06-27-2024 Neutrophils (Bld) [#/Vol] 2.9 10 3/uL 1.4-6.5 [facility] Neutrophils/100 WBC Auto (Bl d)on 06-27-2024 Neutrophils/100 WBC (Bld) 61.5 % 43.0-75.0 [facility] No Panel Informationon 06-27 Troponin I High Sensitivity 14.3 pg/mL 4.0-76.1 [facility] Comment on above: CUT-OFF POINTS HAVE BEEN ESTABLISHED BASED ON THE FOURTHUNIVERSAL DEFINITION OF MYOCARDIAL INFARCTION. THE UPPERREFERENCE LIMIT (URL) OF TROPONIN, DEFINED THE 99THPERCENTILE OF cTnI DISTRIBUTION IN A REFERENCE POPULATION,HAS BEEN CONFIRMED THE DECISION THRESHOLD FOR MIDIAGNOSIS.99TH PERCENTILE = 76.2 PG/MLNOTE: HIGH-SENSITIVITY TROPONIN ASSAY IS NOT INTENDED TO BEUSED IN ISOLATION BUT SHOULD BE INTERPRETED IN CONJUNCTIONWITH OTHER DIAGNOSTIC AND CLINICAL INFORMATION. Eosinophils # (Auto) 0.1 10 3/uL 0.0-0.7 [facility] Immature Granulocyte # (Auto) 0.01 10 3/uL 0.00-0.03 [facility] Platelet mean volume Auto (B ld) [Entitic vol]on 06-27-2024 Platelet mean volume (Bld) [Entitic vol] 10.5 fL 9.5-13.5 [facility] Platelets Auto (Bld) [#/Vol] on 06-27-2024 Platelets (Bld) [#/Vol] 163 10 3/uL 150-450 [facility] RBC Auto (Bld) [#/Vol]on RBC (Bld) [#/Vol] 4.36 10 6/uL Low 4.70-6.10 [facility] Serum or plasma albumin/glob ulin mass ratioon 06-27-2024 Albumin/Globulin [Mass ratio] 1.1 {ratio} [facility] Serum or plasma anion gap de terminationon 06-27-2024 Anion gap [Moles/Vol] 7.8 mmol/L [facility] Serum or plasma total choles terol/high density lipoprotein (HDL) cholesterol mass kelsey 06-27-2024 Cholesterol.total/ Cholesterol in HDL [Mass ratio] 3.4 {ratio} [facility] Comment on above: 3.3 - 4.4 LOW RISK4. 4 - 7.1 AVERAGE RISK7.1 - 11.0 MODERATE RISK>11.0 HIGH RISK Urology Office/Clinic Noteon 06-04-2024 Urology Office/Clinic Note [...] (N39.46: Mixed incontinence) PVR (cc): 11/28/23 - 12 Complete 6 session of PFPT w/ FERNANDO, [...] lymphadenectomy done 06/20/[address] Freedman - [id number] (Antione 4+3) +EPE,+margin. Underwent salvage radiation for [...] stone Ma (more content not included)... Normal [facility] Comment on above: Result Comment: Elec tronically Signed By: Radha Whitten MD\.br\Date and Time Signed: 06/04/24 10:14 EDT\.br\Electronically Co-Signed By: Belkys Figueroa\.br\Date and Time Co-Signed: 06/04/24 09:23 EDT CNOVon 05-20-2024 CNOV Office Visit ([facility] ) YONI RAMIREZ ([id number]) 1945 M Date Time Provider Department 05/20/24 1:15 PM Aaliyah HERNANDEZ During your visit today, we recorded the following information about you: Temperature Pulse Respiration Blood pressure 98.4 degrees 59/minute 18/minute 147/80 Weight 101 kg Aaliyah Hernandez MD 05/23/2024 10:46 AM Signed Radiation Oncology - Follow Up Note PATIENT NAME: Yoni Ramirez PATIENT DIAGNOSIS: Prostate adenocarcinoma, initial PSA 7.4, biopsy Martin score 4 + 3 = 7 (grade [...] day. lisinop (more content not included)... Normal [facility] No Panel Informationon 05-13 Prostate Specific Antigen <0.02 ng/mL <2.60 [facility] Comment on above: Total PSA test metho dology used is the Electrochemiluminescence Immunoassay by [employer]. Total PSA values by differing methodologies cannot be interchanged. PSA SerPl-mCncon 05-13-2024 Prostate specific Ag [Mass/Vol] ng/mL Normal <2.60 [facility] Comment on above: Order Comment: Speci men Type: BLOOD SPECIMEN Ordering Facility: [facility] Address: [address] [place] [address] Result Comment: Amarilisa l PSA test methodology used is the Electrochemiluminescence Immunoassay by [employer]. Total PSA values by differing methodologies cannot be interchanged. Performed By: #### 2 [id number] #### [facility] CLIA [id number] [address] [place] [address] OF [facility] CNOVon 04-01-2024 CNOV Office Visit ([facility] ) YONI RAMIREZ ([id number]) 1945 M Date Time Provider Department 04/01/24 10:00 AM DONATO BISHOP [facility] During your visit today, we recorded the following information about you: Temperature Pulse Blood pressure 97 degrees 58/minute 162/67 Donato Bishop MD 04/07/2024 4:41 PM Signed [facility] - Follow Up Visit [...] Bishop MD 04/01/24, 10:35 AM General Surgery [facility] Medical Decision Making: Problems: Low: Stable chronic illness Data: Unique test result(s) reviewed: 1 Independent interpretation of test from other physician/HCP Risk: Low: Low risk from testing/treatment Medical [...] No Drains: No Referring Provider: BRO CHAVEZ [[id number]] Allergies As of Date: 04/01/2024 (No Known [...] by mouth two times a day. - lisinopril-hydroCHLOROthiaz evan (PRINZIDE, ZESTORETIC) 20-25 mg per tablet Take [...] w*03/26/2023 Visit Notes: >> Kristy Monreal [facility] Tue Apr 01, 2024 10:03 AM Status: Signed [...] for pain. (more content not included)... Normal [facility] CT ABD/PEL WO IVCONon 2023 CT ABD/PEL WO IVCON * * *Final Report* * * DATE OF EXAM: Apr 01 2024 1:54PM [facility] 0531 - CT ABD/PEL WO IVCON [...] or recurrent hernia. 2. Bilateral nonobstructive nephrolithiasis. Chief Internal Auditor: ROSANA Transcribe Date/Time: Apr 02 2024 9:22A Dictated by : LANCE CUNHA MD This examination was interpreted and the report reviewed and electronically signed by: LANCE CUNHA MD on Apr 02 2024 9:31AM EST [id number] Normal [facility] Basophils Auto (Bld) [#/Vol] on 01-30-2024 Basophils (Bld) [#/Vol] 0.0 10 3/uL 0.0-0.1 [facility] Basophils/100 WBC Auto (Bld) on 01-30-2024 Basophils/100 WBC (Bld) 0.8 % 0.2-2.0 [facility] Eosinophils/100 WBC Auto (Bl d)on 01-30-2024 Eosinophils/100 WBC (Bld) 3.2 % 0.9-7.0 [facility] Erythrocyte distribution wid th Auto (RBC) [Ratio]on 01-30-2024 Erythrocyte distribution width (RBC) [Ratio] 16.1 % High 11.0-15.0 [facility] Hematocrit Auto (Bld) [Volum e fraction]on 01-30-2024 Hematocrit (Bld) [Volume fraction] 40.0 % Low 42.0-54.0 [facility] Hemoglobin [Mass/volume] in Bloodon 01-30-2024 Hemoglobin (Bld) [Mass/Vol] 13.0 g/dL Low 14.0-18.0 [facility] Laboratory - Chemistry and C hemistry - challengeon 01-30-2024 Ferritin [Mass/Vol] 71.0 ng/mL 26.0-388.0 [facility] Laboratory - Hematology and Cell countson 01-30-2024 Immature granulocytes/100 WBC (Bld) 0.2 % 0.0-0.5 [facility] Leukocytes [#/volume] correc jignesh for nucleated erythrocytes in Blood by Automated counon 01-30-2024 WBC corrected for nucl RBC Auto (Bld) [#/Vol] 4.9 10 3/uL 4.0-11.0 [facility] Lymphocytes Auto (Bld) [#/Vo l]on 01-30-2024 Lymphocytes (Bld) [#/Vol] 1.1 10 3/uL Low 1.2-3.8 [facility] Lymphocytes/100 WBC Auto (Bl d)on 01-30-2024 Lymphocytes/100 WBC (Bld) 21.7 % 20.5-60.0 [facility] MCH Auto (RBC) [Entitic mass ]on 01-30-2024 MCH (RBC) [Entitic mass] 30.2 pg 25.9-34.0 [facility] MCHC Auto (RBC) [Mass/Vol]on 01-30-2024 MCHC (RBC) [Mass/Vol] 32.5 g/dL 29.9-35.2 [facility] [facility] MCV Auto (RBC) [Entitic vol] on 01-30-2024 MCV (RBC) [Entitic vol] 92.8 fL 80.0-94.0 [facility] Monocytes Auto (Bld) [#/Vol] on 01-30-2024 Monocytes (Bld) [#/Vol] 0.6 10 3/uL 0.3-0.8 [facility] Monocytes/100 WBC Auto (Bld) on 01-30-2024 Monocytes/100 WBC (Bld) 11.9 % 1.7-12.0 [facility] Neutrophils Auto (Bld) [#/Vo l]on 01-30-2024 Neutrophils (Bld) [#/Vol] 3.1 10 3/uL 1.4-6.5 [facility] Neutrophils/100 WBC Auto (Bl d)on 01-30-2024 Neutrophils/100 WBC (Bld) 62.2 % 43.0-75.0 [facility] No Panel Informationon 01-29 Eosinophils # (Auto) 0.2 10 3/uL 0.0-0.7 [facility] Immature Granulocyte # (Auto) 0.01 10 3/uL 0.00-0.03 [facility] Platelet mean volume Auto (B ld) [Entitic vol]on 01-30-2024 Platelet mean volume (Bld) [Entitic vol] 11.0 fL 9.5-13.5 [facility] Platelets Auto (Bld) [#/Vol] on 01-30-2024 Platelets (Bld) [#/Vol] 190 10 3/uL 150-450 [facility] RBC Auto (Bld) [#/Vol]on RBC (Bld) [#/Vol] 4.31 10 6/uL Low 4.70-6.10 [facility] Consultation Noteon 11-30-19 Consultation Note [id number]#1.00TIFF [facility] Lab Reportson 11-28-2023 Lab Reports [id number]#1.00TIFF [facility] Patient Educationon 11-28-19 Patient Education Obstetrics [...] provider. Document Revised: 02/09/2022 Document Reviewed: 02/09/2022 [employer] Patient Education ? 2022 [employer]. [facility] Screenson 11-28-2023 Screens [id number]#1.00TIFF [facility] Screens [id number]#1.00TIFF [facility] Urology Office/Clinic Noteon 11-28-2023 Urology Office/Clinic [...] lymphadenectomy done 06/20/[address] Freedman - [id number] (Antione 4+3) +EPE,+margin. Underwent salvage radiation for [...] scarring from prior hernia repair. Referred to [facility] General Surgery for hernia- S/P Excision of [...] with genera (more content not included)... [facility] Comment on above: Result Comment: Elec tronically Signed By: Fish WHARTON, Radha Tejada\.br\Date and Time Signed: 11/28/23 17:42 EST\.br\Electronically Co-Signed By: Laura Horn.br\Date and Time Co-Signed: 11/28/23 11:07 EST CNOVon 11-20-2023 CNOV Office Visit (RADTSA ) YONI RAMIREZ ([id number]) 1945 M Date Time Provider Department 11/20/23 [...] Take by mouth two times a day. lisinopril-hydroCHLOROthiaz evan (PRINZIDE, ZESTORETIC) 20-25 mg per tablet Take 1 tablet by mouth once daily. atorva (more content not included)... Normal [facility] PSA SerPl-mCncon 11-13-2023 Prostate specific Ag [Mass/Vol] ng/mL Normal <2.60 [facility] Comment on above: Order Comment: Speci men Type: BLOOD SPECIMEN Ordering Facility: [facility] Address: [address] [place] [address] Result Comment: Amarilisa daniel PSA test methodology used is the Electrochemiluminescence Immunoassay by [employer]. Total PSA values by differing methodologies cannot be interchanged. Performed By: #### 2 857-1 #### [facility] CLIA [id number] [address] [place], [place] [address] [address] [place] Ambulatory Visit Summaryon 1 10-15-2022 Ambulatory Visit Summary YONI RAMIREZ :1945 Visit Date:08/15/2023 Ambulatory Visit Instructions Your Diagnosis Mixed incontinence Personal history of prostate cancer Hernia, inguinal Inguinal mass Varicocele present on ultrasound of scrotum Tests Performed Urnls Dip Stick Auto w/o Microscopy POC 18385 Your Care Team Attending Physician - Fish WHARTON, Radha Tejada Primary Care Physician - BRO CHAVEZ DO This Is Your Medications List vibegron (Gemtesa 75 mg oral tablet) Contact prescribing physician if questions or concerns allopurinol (allopurinol 300 mg Tab) amlodipine (amLODIPine 5 mg Tab) aspirin (aspirin 81 mg Chew Tab) atorvastatin carvedilol (carvedilol 12.5 mg Tab) hydrochlorothiazide-lisinop ril (hydrochlorothiazide-lisino pril 25 mg-20 mg Tab) lisinopril (lisinopril 10 [...] Schedule the Following Appointments Follow Up with Fish WHARTON, ALANNA Hahn, URO When: In 3 months Where: Medications What How Much When Instructions New vibegron (Gemtesa 75 mg oral tablet) 1 Tablets By Mouth Every day Refills: 11 Pickup at [facility] [phone] Unchanged allopurinol (allopurinol 300 mg Tab) 1 [...] prescribing physician if questions or concerns Unchanged hydrochlorothiazide-lisinop ril (hydrochlorothiazide-lisino pril 25 mg-20 mg Tab) By Mouth Every day Contact prescribing physician if questions or concerns Unchanged lisinopril (lisinopril 10 mg Tab) Contact prescribing physician if questions or concerns Pharmacy Information [facility] [id number]: [address] [place] [id number] [phone] Test Results Urnls Dip Stick Auto w/o Microscopy POC 99592 (08/15/2023) Bilirubin Urine Dipstick - Negative Blood Urine Dipstick - Negative Glucose Urine Dipstick - Negative Ketones Urine Dipstick - Negative Leukocytes Urine Dipstick - Negative Nitrite Urine Dipstick - Negative Protein Urine Dipstick - Negative Specific [place] Urine Dipstick - 1.025 Urine Appearance Urine [...] while sitting, (more content not included)... [facility] Patient Educationon 08-15-20 23 Patient Education Obstetrics and Gynec ology Kegel [...] provider. Document Revised: 02/09/2022 Document Reviewed: 02/09/2022 [employer] Patient Education ? 2022 [employer]. [facility] Screenson 08-15-2023 Screens [id number]#1.00TIFF [facility] Screens [id number]#1.00TIFF [facility] Urology Office/Clinic Noteon 08-15-2023 Urology Office/Clinic [...] lymphadenectomy done 06/20/[address] Freedman - [id number] (Martin 4+3) +EPE,+margin. Underwent salvage ra (more content not included)... [facility] Comment on above: Result Comment: Elec tronically Signed By: Fish WHARTON, Radha Tejada\.br\Date and Time Signed: 08/15/23 21:17 EDT\.br\Electronically Co-Signed By: Savanna Rosenthal\.br\Date and Time Co-Signed: 08/15/23 09:35 EDT Basic metabolic 2000 panelon 02-28-2023 Anion gap [Moles/Vol] 12 mmol/L Normal 9-18 [facility] Comment on above: Order Comment: Speci men Type: BLOOD SPECIMEN Ordering Facility: [facility] Address: [address] [id number] Performed By: #### 2 43210-16, #### [facility] CLIA [id number] [address] [place] [address] [place] Calcium [Mass/Vol] 8.7 mg/dL Normal 8.5-10.2 [facility] Comment on above: Order Comment: Speci men Type: BLOOD SPECIMEN Ordering Facility: [facility] Address: [address] [place] [address] Performed By: #### 2 43210-16, #### [facility] CLIA [id number] [address] [place] [address] [place] Chloride [Moles/Vol] 103 mmol/L Normal 97-105 [facility] Comment on above: Order Comment: Speci men Type: BLOOD SPECIMEN Ordering Facility: [facility] Address: [address] [address] Performed By: #### 2 2, #### [facility] CLIA [id number] [address] [place] [address] [place] CO2 [Moles/Vol] 24 mmol/L Normal 22-30 [facility] Comment on above: Order Comment: Speci men Type: BLOOD SPECIMEN Ordering Facility: [facility] Address: [address] [address] Performed By: #### 2 2, #### [facility] CLIA [id number] [address] [place] [address] [place] Creatinine [Mass/Vol] 0.49 mg/dL Low 0.73-1.22 [facility] Comment on above: Order Comment: Speci men Type: BLOOD SPECIMEN Ordering Facility: [facility] Address: [address] [place] [address] Performed By: #### 2 4320-11, #### [facility] CLIA [id number] [address] [place] [address] [place] ESTIMATED GLOMERULAR FILTRATION RATE 107 mL/min/1.73m??? Normal >=60 [facility] Comment on above: Order Comment: Speci men Type: BLOOD SPECIMEN Ordering Facility: [facility] Address: [address] [place] [address] Result Comment: Trena mated Glomerular Filtration Rate [...] GFR. Performed By: #### 2 4321-2, #### [facility] CLIA [id number] [place] [address] [place] Glucose [Mass/Vol] 92 mg/dL Normal 74-99 [facility] Comment on above: Order Comment: John chan Type: BLOOD SPECIMEN Ordering Facility: [facility] Address: [address] [place] [address] Result Comment: The [place] [employer] (ADA) provides guidance for cutoff [...] Standards of Medical Care in Diabetes 2016, [place] [employer]. Diabetes Care. 2016.39(Suppl 1). Performed By: #### 2 4320-11, #### [facility] CLIA [id number] [address] [place] [address] [place] Potassium [Moles/Vol] 3.8 mmol/L Normal 3.7-5.1 [facility] Comment on above: Order Comment: John chan Type: BLOOD SPECIMEN Ordering Facility: [facility] Address: [address] [place] [address] Performed By: #### 2 4320-11, #### [facility] CLIA [id number] [address] [place] [address] [place] Sodium [Moles/Vol] 139 mmol/L Normal 136-144 [facility] Comment on above: Order Comment: John chan Type: BLOOD SPECIMEN Ordering Facility: [facility] Address: [address] [place], [place] [address] Performed By: #### 2 4320-11, #### [facility] CLIA [id number] [address] [place] [address] [place] Urea nitrogen [Mass/Vol] 8 mg/dL Low 9-24 [facility] Comment on above: Order Comment: John chan Type: BLOOD SPECIMEN Ordering Facility: [facility] Address: [address] [address] Performed By: #### 2 4320-11, #### [facility] CLIA [id number] [address] [place] [address] [place] CBC W Auto Differential pane l (Bld)on 02-28-2023 Basophils (Bld) [#/Vol] 0.03 10*3/uL Normal <0.11 [facility] Comment on above: Order Comment: Speci men Type: BLOOD SPECIMEN Ordering Facility: [facility] Address: [address] [address] Performed By: #### 2 4320-11, #### [facility] CLIA [id number] [address] [place] [address] [place] Basophils/100 WBC (Bld) 0.6 % Normal [facility] Comment on above: Order Comment: Speci men Type: BLOOD SPECIMEN Ordering Facility: [facility] Address: [address] [address] Performed By: #### 2 4320-11, #### [facility] CLIA [id number] [address] [place] [address] [place] Differential cell count method Nom (Bld) Auto Normal [facility] Comment on above: Order Comment: Speci men Type: BLOOD SPECIMEN Ordering Facility: [facility] Address: [address] [address] Performed By: #### 2 4320-11, #### [facility] CLIA [id number] [address] [place] [address] [place] Eosinophils (Bld) [#/Vol] 0.36 10*3/uL Normal <0.46 [facility] Comment on above: Order Comment: Speci men Type: BLOOD SPECIMEN Ordering Facility: [facility] Address: [address] [address] Performed By: #### 2 4320-11, #### [facility] CLIA [id number] [address] [place] [address] [place] Eosinophils/100 WBC (Bld) 7.5 % Normal [facility] Comment on above: Order Comment: Speci men Type: BLOOD SPECIMEN Ordering Facility: [facility] Address: [address] [place] [address] Performed By: #### 2 2, #### [facility] CLIA [id number] [address] [place] [address] [place] Erythrocyte distribution width (RBC) [Ratio] 15.4 % High 11.5-15.0 [facility] Comment on above: Order Comment: Speci men Type: BLOOD SPECIMEN Ordering Facility: [facility] Address: [address] [place] [address] Performed By: #### 2 4320-11, #### [facility] CLIA [id number] [address] [place] [address] [place] Hematocrit (Bld) [Volume fraction] 36.0 % Low 39.0-51.0 [facility] Comment on above: Order Comment: Speci men Type: BLOOD SPECIMEN Ordering Facility: [facility] Address: [address] [place] [address] Performed By: #### 2 4320-11, #### [facility] CLIA [id number] [address] [place] [address] [place] Hemoglobin (Bld) [Mass/Vol] 12.1 g/dL Low 13.0-17.0 [facility] Comment on above: Order Comment: Speci men Type: BLOOD SPECIMEN Ordering Facility: [facility] Address: [address] [address] Performed By: #### 2 4320-11, #### [facility] CLIA [id number] [address] [place] [address] [place] Immature granulocytes (Bld) [#/Vol] 10*3/uL Normal <0.10 [facility] Comment on above: Order Comment: Speci men Type: BLOOD SPECIMEN Ordering Facility: [facility] Address: [address] [place] [address] Performed By: #### 2 4320-11, #### [facility] CLIA [id number] [address] [place] [address] [place] Immature granulocytes/100 WBC (Bld) 0.4 % Normal [facility] Comment on above: Order Comment: Speci men Type: BLOOD SPECIMEN Ordering Facility: [facility] Address: [address] [place] [address] Performed By: #### 2 4320-11, #### [facility] CLIA [id number] [address] [place] [address] [place] Lymphocytes (Bld) [#/Vol] 0.61 10*3/uL Low 1.00-4.00 [facility] Comment on above: Order Comment: Speci men Type: BLOOD SPECIMEN Ordering Facility: [facility] Address: [address] [place] [address] Performed By: #### 2 4320-11, #### [facility] CLIA [id number] [address] [place] [address] [place] Lymphocytes/100 WBC (Bld) 12.6 % Normal [facility] Comment on above: Order Comment: Speci men Type: BLOOD SPECIMEN Ordering Facility: [facility] Address: [address] [place] [address] Performed By: #### 2 4320-11, #### [facility] CLIA [id number] [address] [place] [address] [place] MCH (RBC) [Entitic mass] 30.0 pg Normal 26.0-34.0 [facility] Comment on above: Order Comment: Speci men Type: BLOOD SPECIMEN Ordering Facility: [facility] Address: [address] [place] [address] Performed By: #### 2 4320-11, #### [facility] CLIA [id number] [address] [place] [address] [place] MCHC (RBC) [Mass/Vol] 33.6 g/dL Normal 30.5-36.0 [facility] Comment on above: Order Comment: Speci men Type: BLOOD SPECIMEN Ordering Facility: [facility] Address: [address] [address] Performed By: #### 2 2, #### [facility] CLIA [id number] [address] [place] [address] [place] MCV (RBC) [Entitic vol] 89.3 fL Normal 80.0-100.0 [facility] Comment on above: Order Comment: Speci men Type: BLOOD SPECIMEN Ordering Facility: [facility] Address: [address] [address] Performed By: #### 2 4320-11, #### [facility] CLIA [id number] [address] [place] [address] [place] Monocytes (Bld) [#/Vol] 0.58 10*3/uL Normal <0.87 [facility] Comment on above: Order Comment: Speci men Type: BLOOD SPECIMEN Ordering Facility: [facility] Address: [address] [address] Performed By: #### 2 4320-11, #### [facility] CLIA [id number] [address] [place] [address] [place] Monocytes/100 WBC (Bld) 12.0 % Normal [facility] Comment on above: Order Comment: Speci men Type: BLOOD SPECIMEN Ordering Facility: [facility] Address: [address] [address] Performed By: #### 2 4320-11, #### [facility] CLIA [id number] [address] [place] [address] [place] Neutrophils (Bld) [#/Vol] 3.23 10*3/uL Normal 1.45-7.50 [facility] Comment on above: Order Comment: Speci men Type: BLOOD SPECIMEN Ordering Facility: [facility] Address: [address] [place] [address] Performed By: #### 2 4320-11, #### [facility] CLIA [id number] [address] [place] [address] [place] Neutrophils/100 WBC (Bld) 66.9 % Normal [facility] Comment on above: Order Comment: Speci men Type: BLOOD SPECIMEN Ordering Facility: [facility] Address: [address] [address] Performed By: #### 2 4320-2, #### [facility] CLIA [id number] [address] [place] [address] [place] Nucleated RBC (Bld) [#/Vol] 10*3/uL Normal <0.01 [facility] Comment on above: Order Comment: Speci men Type: BLOOD SPECIMEN Ordering Facility: [facility] Address: [address] [place] [address] Performed By: #### 2 4320-2, #### [facility] CLIA [id number] [address] [place] [address] [place] Nucleated RBC/100 WBC (Bld) [Ratio] 0.0 /100 WBC Normal [facility] Comment on above: Order Comment: Speci men Type: BLOOD SPECIMEN Ordering Facility: [facility] Address: [address] [place] [address] Performed By: #### 2 4320-11, #### [facility] CLIA [id number] [address] [place] [address] [place] Platelet mean volume (Bld) [Entitic vol] 10.8 fL Normal 9.0-12.7 [facility] Comment on above: Order Comment: Speci men Type: BLOOD SPECIMEN Ordering Facility: [facility] Address: [address] [address] Performed By: #### 2 4320-2, #### [facility] CLIA [id number] [address] [place] [address] [place] Platelets (Bld) [#/Vol] 182 10*3/uL Normal 150-400 [facility] Comment on above: Order Comment: Speci men Type: BLOOD SPECIMEN Ordering Facility: [facility] Address: [address] [address] Performed By: #### 2 4321-2, #### [facility] CLIA [id number] [place], [place] [id number] [place] RBC (Bld) [#/Vol] 4.03 10*6/uL Low 4.20-6.00 [facility] Comment on above: Order Comment: Speci men Type: BLOOD SPECIMEN Ordering Facility: [facility] Address: [address] [address] Performed By: #### 2 4321-2, #### [facility] CLIA [id number] [place] [address] OF [facility] WBC (Bld) [#/Vol] 4.83 10*3/uL Normal 3.70-11.00 [facility] Comment on above: Order Comment: Speci men Type: BLOOD SPECIMEN Ordering Facility: [facility] Address: [address] [place] [address] Performed By: #### 2 432-, #### [facility] CLIA [id number] [place] [address] [place] Magnesium SerPl-mCncon 02-28 Magnesium [Mass/Vol] 1.8 mg/dL Normal 1.7-2.3 [facility] Comment on above: Order Comment: Speci men Type: BLOOD SPECIMEN Ordering Facility: [facility] Address: [address] [place] [address] Performed By: #### 2 43210-16, #### [facility] CLIA [id number] [address] [id number] [place] NURSING PROGon 02-28-2023 NURSING PROG HNO ID: [id number] Author: Christie Mayberry RN Service: Nursing Author Type: Registered Nurse Type: Nursing Progress Note Filed: 02/28/2023 7:43 AM Note Text: 2016: BP 179/67 and 167/62. HR 79. Asymptomatic. No prn BP meds on. Text page sent to surgery for further orders. 2022: Scheduled and PRN BP meds ordered. Normal [facility] Phosphate SerPl-mCncon 02-28 Phosphate [Mass/Vol] 3.0 mg/dL Normal 2.7-4.8 [facility] Comment on above: Order Comment: Speci men Type: BLOOD SPECIMEN Ordering Facility: [facility] Address: [address] [place] [address] Performed By: #### 2 4321-2, #### [facility] CLIA [id number] [address] [place] [address] [place] Basic metabolic 2000 panelon 02-27-2023 Anion gap [Moles/Vol] 10 mmol/L Normal 9-18 [facility] Comment on above: Order Comment: Speci men Type: BLOOD SPECIMEN Ordering Facility: [facility] Address: [address] [place] [address] Performed By: #### 2 4321-2, , 2776-10 #### [facility] CLIA [id number] [address] [place] [address] [place] Calcium [Mass/Vol] 8.6 mg/dL Normal 8.5-10.2 [facility] Comment on above: Order Comment: Speci men Type: BLOOD SPECIMEN Ordering Facility: [facility] Address: [address] [place] [address] Performed By: #### 2 4321-2, , 2776-10 #### [facility] CLIA [id number] [address] [place] [address] [place] Chloride [Moles/Vol] 106 mmol/L High 97-105 [facility] Comment on above: Order Comment: Speci men Type: BLOOD SPECIMEN Ordering Facility: [facility] Address: [address] [place] [address] Performed By: #### 2 4321-2, , 2776-10 #### [facility] CLIA [id number] [place] [address] [place] CO2 [Moles/Vol] 26 mmol/L Normal 22-30 [facility] Comment on above: Order Comment: Speci men Type: BLOOD SPECIMEN Ordering Facility: [facility] Address: [address] [address] Performed By: #### 2 4321-2, , 2776-10 #### [facility] CLIA [id number] [address] [place] [address] [place] Creatinine [Mass/Vol] 0.55 mg/dL Low 0.73-1.22 [facility] Comment on above: Order Comment: John men Type: BLOOD SPECIMEN Ordering Facility: [facility] Address: [address] [place] [address] Performed By: #### 2 4321-2, , 2776-10 #### [facility] CLIA [id number] [place] [address] [place] ESTIMATED GLOMERULAR FILTRATION RATE 103 mL/min/1.73m??? Normal >=60 [facility] [facility] Comment on above: Order Comment: John rocio Type: BLOOD SPECIMEN Ordering Facility: [facility] Address: [address] [place] [address] Result Comment: Trena mated Glomerular Filtration Rate [...] By: #### 2 4321-2, , 2776-10 #### [facility] CLIA [id number] [place] [address] [place] Glucose [Mass/Vol] 101 mg/dL High 74-99 [facility] Comment on above: Order Comment: John rocio Type: BLOOD SPECIMEN Ordering Facility: [facility] Address: [address] [place] [address] Result Comment: The [place] Diabetes Association (ADA) provides guidance for cutoff [...] Standards of Medical Care in Diabetes 2016, [place] [employer]. Diabetes Care. 2016.39(Suppl 1). Performed By: #### 2 4321-2, , 2776-10 #### [facility] CLIA [id number] [place] [address] [place] Potassium [Moles/Vol] 3.6 mmol/L Low 3.7-5.1 [facility] Comment on above: Order Comment: John chan Type: BLOOD SPECIMEN Ordering Facility: [facility] Address: [address] [place] [address] Performed By: #### 2 4320-2, , 2776-10 #### [facility] CLIA [id number] [address] [place] [address] [place] Sodium [Moles/Vol] 142 mmol/L Normal 136-144 [facility] Comment on above: Order Comment: John chan Type: BLOOD SPECIMEN Ordering Facility: [facility] Address: [address] [place] [address] Performed By: #### 2 4321-2, , 2776-10 #### [facility] CLIA [id number] [address] [place] [address] [place] Urea nitrogen [Mass/Vol] 8 mg/dL Low 9-24 [facility] Comment on above: Order Comment: John chan Type: BLOOD SPECIMEN Ordering Facility: [facility] Address: [address] [place], [place] [address] Performed By: #### 2 4321-2, , 2776-10 #### [facility] CLIA [id number] [place] [address] [place] CASE MGT INIT Inderjit 2022 CASE MGT INIT ASSES HNO ID: [id number] Author: YURY Luz Service: ? Author Type: Compliance Vice President Type: Care Mgt Initial Assessment Filed: 02/27/2023 3:29 PM Note Text: CARE MANAGEMENT: ASSESSMENT AND DISCHARGE PLAN SERVICE DATE: February 27, 2023 SERVICE TIME: 2:30 PCP: Bro Chavez DO Primary Contact: Extended Emergency Contact Information Primary Emergency Contact: AbdirashidalondraBrianna Mobile Relation: Significant other Admission Status: Inpatient Insurance Provider: MEDICARE A AND B Discharge Planning requested by: Other person(s) per dept policy Potential Transition Plans [facility] Facility/Intermediate Care Facility;Home Care Advance Directives Current Advance Directive: None Lab Scientist Attempted to Assist with AD Completion: Yes Action: Education Provided;Other: See Comment (forms provided) Current Living Arrangements and Support Lives with: Spouse/significant other Type of Residence: Private Residence (House) Does the patient have to climb stairs at home?: stairs outside the home Support: Spouse/significant other How do you manage to accomplish the following: Independent: Transportation to appointments/community;Ambu lation;Bathe/Shower;Dress;M eals/Meal Prep;Going to the bathroom;Medication Management Current Services/Equipment Current Post-Acute Service(s): DME Current DME Type: Continuous Positive Airway Pressure, Walker Discharge Planning Patient Goal(s): General wellness, Be able to go home [place] of Choice Explained: [place] of Choice Given: Yes Level of Care Discussed: Home Care;[facility] Facility Are you interested in bedside delivery [...] Transportation Post-Acute Discharge Plan: SNF vs HC KESHIA met with patient and SO Brianna of 30+ years. Therapy recommending SNF at this time. SNF list provided. If patient progresses and can go home, [facility] can accept. Patient's NOK would be nieces he has not spoken with in years. KESHIA discussed DHPOA and provide forms. Will follow up regarding completing forms. Patient currently on O2 that he does not have at home. Patient does use CPAP and has his own machine in the room. SIGNATURE: YURY Luz PATIENT NAME: Yoni Ramirez DATE: February 27, 2023 TIME: 3:26 PM CONTACT #: [phone] Normal [facility] CBC W Auto Differential pane l (Bld)on 02-27-2023 Basophils (Bld) [#/Vol] 0.03 10*3/uL Normal <0.11 [facility] Comment on above: Order Comment: Speci men Type: BLOOD SPECIMENOrdering Facility: [facility] Address: [address] [place] [address] Performed By: #### 5 7021-8 ####[facility] [id number] [place] [address] [place] Basophils/100 WBC (Bld) 0.5 % Normal [facility] Comment on above: Order Comment: Speci men Type: BLOOD SPECIMENOrdering Facility: [facility] Address: [address] [address] Performed By: #### 5 7021-8 ####[facility] [id number] [place] [address] [place] Differential cell count method Nom (Bld) Auto Normal [facility] Comment on above: Order Comment: Speci men Type: BLOOD SPECIMENOrdering Facility: [facility] Address: [address] [address] Performed By: #### 5 7021-8 ####[facility] [id number] [place] [address] [place] Eosinophils (Bld) [#/Vol] 0.27 10*3/uL Normal <0.46 [facility] Comment on above: Order Comment: Speci men Type: BLOOD SPECIMENOrdering Facility: [facility] Address: [address] [address] Performed By: #### 5 7021-8 ####[facility] [id number] [place] [address] [place] Eosinophils/100 WBC (Bld) 4.5 % Normal [facility] Comment on above: Order Comment: Speci men Type: BLOOD SPECIMENOrdering Facility: [facility] Address: [address] [place] [address] Performed By: #### 5 7021-8 ####[facility] [id number] [place] [address] [place] Erythrocyte distribution width (RBC) [Ratio] 15.8 % High 11.5-15.0 [facility] Comment on above: Order Comment: Speci men Type: BLOOD SPECIMENOrdering Facility: [facility] Address: [address] [place] [address] Performed By: #### 5 7021-8 ####[facility] [id number] [place] [address] [place] Hematocrit (Bld) [Volume fraction] 35.5 % Low 39.0-51.0 [facility] Comment on above: Order Comment: Speci men Type: BLOOD SPECIMENOrdering Facility: [facility] Address: [address] [place] [address] Performed By: #### 5 7021-8 ####[facility] [id number] [place] [address] [place] Hemoglobin (Bld) [Mass/Vol] 11.7 g/dL Low 13.0-17.0 [facility] Comment on above: Order Comment: Speci men Type: BLOOD SPECIMENOrdering Facility: [facility] Address: [address] [place] [address] Performed By: #### 5 7021-8 ####[facility] [id number] [place] [address] [place] Immature granulocytes (Bld) [#/Vol] 0.03 10*3/uL Normal <0.10 [facility] Comment on above: Order Comment: Speci men Type: BLOOD SPECIMENOrdering Facility: [facility] Address: [address] [place] [address] Performed By: #### 5 7021-8 ####[facility] [id number] [address] STATES [facility] Immature granulocytes/100 WBC (Bld) 0.5 % Normal [facility] Comment on above: Order Comment: Speci men Type: BLOOD SPECIMENOrdering Facility: [facility] Address: [address] [place] [address] Performed By: #### 5 7021-8 ####[facility] [id number] [place] [address] [place] Lymphocytes (Bld) [#/Vol] 0.78 10*3/uL Low 1.00-4.00 [facility] Comment on above: Order Comment: Speci men Type: BLOOD SPECIMENOrdering Facility: [facility] Address: [address] [place] [address] Performed By: #### 5 7021-8 ####[facility] [id number] [address] Lymphocytes/100 WBC (Bld) 12.9 % Normal [facility] Comment on above: Order Comment: Speci men Type: BLOOD SPECIMENOrdering Facility: [facility] Address: [address] [place] [address] Performed By: #### 5 7021-8 ####[facility] [id number] [place] [address] [place] MCH (RBC) [Entitic mass] 30.2 pg Normal 26.0-34.0 [facility] Comment on above: Order Comment: Speci men Type: BLOOD SPECIMENOrdering Facility: [facility] Address: [address] [place] [address] Performed By: #### 5 7021-8 ####[facility]ORYCLIA [id number] [address] [place] MCHC (RBC) [Mass/Vol] 33.0 g/dL Normal 30.5-36.0 [facility] Comment on above: Order Comment: Speci men Type: BLOOD SPECIMENOrdering Facility: [facility] Address: [address] [place] [address] Performed By: #### 5 7021-8 ####[facility]ORATORYCLIA [id number] [place] [address] [place] MCV (RBC) [Entitic vol] 91.7 fL Normal 80.0-100.0 [facility] Comment on above: Order Comment: Speci men Type: BLOOD SPECIMENOrdering Facility: [facility] Address: [address] [place] [address] Performed By: #### 5 7021-8 ####[facility]ATORYCLIA [id number] [place] [address] [place] Monocytes (Bld) [#/Vol] 0.51 10*3/uL Normal <0.87 [facility] Comment on above: Order Comment: Speci men Type: BLOOD SPECIMENOrdering Facility: [facility] Address: [address] [place] [address] Performed By: #### 5 7021-8 ####[facility]ORYCLIA [id number] [place] [address] [place] Monocytes/100 WBC (Bld) 8.4 % Normal [facility] Comment on above: Order Comment: Speci men Type: BLOOD SPECIMENOrdering Facility: [facility] Address: [address] [place] [address] Performed By: #### 5 7021-8 ####[facility]ATORYCLIA [id number] [place] [address] [place] Neutrophils (Bld) [#/Vol] 4.44 10*3/uL Normal 1.45-7.50 [facility] Comment on above: Order Comment: Speci men Type: BLOOD SPECIMENOrdering Facility: [facility] Address: [address] [place] [address] Performed By: #### 5 7021-8 ####[facility]ORYCLIA [id number] [address] [place] Neutrophils/100 WBC (Bld) 73.2 % Normal [facility] Comment on above: Order Comment: Speci men Type: BLOOD SPECIMENOrdering Facility: [facility] Address: [address] [address] Performed By: #### 5 7021-8 ####[facility] [id number] [place] [address] [place] Nucleated RBC (Bld) [#/Vol] 10*3/uL Normal <0.01 [facility] Comment on above: Order Comment: Speci men Type: BLOOD SPECIMENOrdering Facility: [facility] Address: [address] [address] Performed By: #### 5 7021-8 ####[facility] [id number] [place] [address] [place] Nucleated RBC/100 WBC (Bld) [Ratio] 0.0 /100 WBC Normal [facility] Comment on above: Order Comment: Speci men Type: BLOOD SPECIMENOrdering Facility: [facility] Address: [address] [address] Performed By: #### 5 7021-8 ####[facility] [id number] [place] [address] [place] Platelet mean volume (Bld) [Entitic vol] 10.7 fL Normal 9.0-12.7 [facility] Comment on above: Order Comment: Speci men Type: BLOOD SPECIMENOrdering Facility: [facility] Address: [address] [address] Performed By: #### 5 7021-8 ####[facility] [id number] [place] [id number] [place] Platelets (Bld) [#/Vol] 157 10*3/uL Normal 150-400 [facility] Comment on above: Order Comment: Speci men Type: BLOOD SPECIMENOrdering Facility: [facility] Address: [address] [address] Performed By: #### 5 7021-8 ####[facility] [id number] [place] [address] [place] RBC (Bld) [#/Vol] 3.87 10*6/uL Low 4.20-6.00 [facility] Comment on above: Order Comment: Speci men Type: BLOOD SPECIMENOrdering Facility: [facility] Address: [place] [address] Performed By: #### 5 7021-8 ####[facility]ORYCLIA [id number] [address] WBC (Bld) [#/Vol] 6.06 10*3/uL Normal 3.70-11.00 [facility] Comment on above: Order Comment: Speci men Type: BLOOD SPECIMENOrdering Facility: [facility] Address: [place] [address] Performed By: #### 5 7021-8 ####[facility] [id number] [place] [id number] [facility] CONSULT PROGon 02-27-2023 CONSULT PROG HNO ID: [id number] Author: Ree Fernandez APRN.MORTGAGE LOAN COORDINATOR Service: Pain Management Author Type: Nurse Practitioner [...] Passing flatus. PLAN/Recs: Continue bilateral TAPs at 0/6/30/2 each (likely remove tmrw) Continue Acetaminophen 650 [...] and solution: Yes. Solution Ropivacaine 0.2%, rate each Adjuvant Pain Medication: See below. Current [...] Lymph 1.00 - 4.00 k/uL 0.78 (L) [place]% % 8.4 Abs [place] <0.87 k/uL 0.51 Eosin% % 4.5 Abs [...] - 30 (more content not included)... Normal [facility] HIGH SENSITIVITY TROPONIN To n 02-27-2023 HIGH SENSITIVITY PHYLLIS 14 ng/L High <12 [facility] Comment on above: Order Comment: John chan Type: BLOOD SPECIMEN Ordering Facility: [facility] Address: [address] [place] [address] Result Comment: When assessing risk for acute [...] day MACE. Performed By: #### 2 4321-2, #### [facility] CLIA [id number] [address] [place] [address] [place] Magnesium SerPl-mCncon 02-27 Magnesium [Mass/Vol] 2.1 mg/dL Normal 1.7-2.3 [facility] Comment on above: Order Comment: John chan Type: BLOOD SPECIMEN Ordering Facility: [facility] Address: [address] [place], [place] [address] Performed By: #### 2 4321-2, 06836-1, 2777-1 #### [facility] CLIA [id number] [address] [place] [address] [place] NURSING PROGon 02-27-2023 NURSING PROG HNO ID: [id number] Author: Latasha Evans RN Service: Nursing Author [...] chair with 2 assist and walker. 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 bp 155/49, hr 71, spo2 94% nc 2.5L. would you like a troponin order. Thanks Vivian [phone], new orders received. 0139 paged surgery Hi, [email or web address] Tatiana, high sensitivity troponin was 14. Normal [facility] Phosphate SerPl-mCncon 02-27 Phosphate [Mass/Vol] 2.1 mg/dL Low 2.7-4.8 [facility] Comment on above: Order Comment: Speci men Type: BLOOD SPECIMEN Ordering Facility: [facility] Address: [address] [place] [address] Performed By: #### 2 4321-2, 43723-8, 2777-1 #### [facility] CLIA [id number] [address] [place] [address] OF [facility] THERAPY NTon 02-27-2023 THERAPY NT HNO ID: [id number] Author: Judith Hernandez OTR/L Service: Occupational Therapy Author Type: Occupational Therapist Type: Therapy (PT/OT/Speech/Resp) Filed: 02/27/2023 5:06 PM Note Text: Occupational Therapy Treatment SERVICE DATE: 02/27/2023 SERVICE TIME: 1546 to 1640 ROOM: [place] [address] Scheduled Surgery For Left Inguinal Hernia, S/P Attempted Jemh-Aqh-Jvpth Repair Of Left Femoral Hernia, Excision Of [...] Shoe Horn, Long Handled Sponge, Wheeled Walker, Band Straightener, Sock Aid, Shower Chair OT 6 Clicks Score: 17 Precautions/Activity Restrictions: Abdominal, Bed/Chair Alarm, Fall Risk, Lines/Tubes/Drains, Diet Restrictions, Other: See Comments Current Hospital Course: Scheduled Surgery For Left Inguinal Hernia, S/P Attempted Thxp-Tyx-Gzmwp Repair Of Left Femoral Hernia, Excision Of Previously Implanted Mesh, Exploratory Laparotomy, Bilateral TAR, Implantation Of 30 x 30 cm Prolene Mesh 02/23/23 Reason for Hospital Admission: Scheduled Surgery For Left Inguinal Hernia, S/P Attempted Bbqn-Usv-Brmjn Repair Of Left Femoral Hernia, Excision Of [...] Comment Comments: In one level home in [place], [place] Assistance Available: PRN Entry To Home: [...] situation 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 [facility] THERAPY NT HNO ID: [id number] Author: Ree Gardner, PT Service: Physical Therapy Author Type: Physical Therapist Type: Therapy (PT/OT/Speech/Resp) Filed: 02/27/2023 12:36 PM Note Text: Physical Therapy Treatment SERVICE DATE: 02/27/2023 SERVICE TIME: 1100 to 1138 ROOM: [place] [address] Recommended Discharge Disposition: Subacute/SNF Recommended Discharge Disposition Comments: vs home with 24/ assist Recommended Discharge Disposition Due to: Patient [...] Surgery For Left Inguinal Hernia, S/P Attempted Lrus-Dle-Etgkt Repair Of Left Femoral Hernia, Excision Of Previously Implanted Mesh, Exploratory Laparotomy, Bilateral TAR, Implantation Of 30 x 30 cm Prolene Mesh 02/23/23 Reason for Hospital Admission: Scheduled Surgery For Left Inguinal Hernia, S/P Attempted Bexn-Uql-Uybqp Repair Of Left Femoral Hernia, Excision Of [...] Comment Comments: In one level home in [place], [place] Assistance Available: PRN Entry To Home: [...] Narrow Base of Support, Step length decreased JH-HLM: 6: Walk 10 steps or more Learning/Educational [...] Diagnosis: Reduced mobility-other Interventions Provided: Therapeutic Exercise (74754), Therapeutic Activity (93154), Gait Training (61086) Therapeutic Exercise (77987) Treatment Minutes: 15 $ Therapeutic Exercise (75513) Billed Units: 1 unit Therapeutic Activity (05769) Treatment Minutes: 15 $ Therapeutic Activity (26386) Billed Units: 1 unit Gait Training (08665) Treatment Minutes: 8 $ Gait Training (55861) Billed Units: 1 unit (more content not included)... Normal [facility] Basic metabolic 2000 panelon 02-26-2023 Anion gap [Moles/Vol] 9 mmol/L Normal 9-18 [facility] Comment on above: Order Comment: Speci men Type: BLOOD SPECIMENOrdering Facility: [facility] Address: [address] [id number] Performed By: #### 2 4321-2, , 2776-10 ####[facility]IA [id number] [place] [address] [place] Calcium [Mass/Vol] 8.5 mg/dL Normal 8.5-10.2 [facility] Comment on above: Order Comment: Speci men Type: BLOOD SPECIMENOrdering Facility: [facility] Address: [address] [place] [address] Performed By: #### 2 4321-2, , 2776-10 ####[facility]CLIA [id number] [place] [address] [place] Chloride [Moles/Vol] 104 mmol/L Normal 97-105 [facility] Comment on above: Order Comment: Speci men Type: BLOOD SPECIMENOrdering Facility: [facility] Address: [address] [address] Performed By: #### 2 4321-2, , 2776-10 ####[facility]ORYCLIA [id number] [place] [id number] [facility] CO2 [Moles/Vol] 25 mmol/L Normal 22-30 [facility] Comment on above: Order Comment: Speci men Type: BLOOD SPECIMENOrdering Facility: [facility] Address: [address] [address] Performed By: #### 2 4321-2, , 2776-10 ####[facility]ORYCLIA [id number] [address] Creatinine [Mass/Vol] 0.55 mg/dL Low 0.73-1.22 [facility] Comment on above: Order Comment: Speci men Type: BLOOD SPECIMENOrdering Facility: [facility] Address: [address] [place] [address] Performed By: #### 2 4321-2, , 2776-10 ####[facility]ORYCLIA [id number] [address] ESTIMATED GLOMERULAR FILTRATION RATE 103 mL/min/1.73m??? Normal >=60 [facility] Comment on above: Order Comment: Speci men Type: BLOOD SPECIMENOrdering Facility: [facility] Address: [address] [place] [address] Result Comment: Trena mated Glomerular Filtration Rate [...] #### 2 4321-2, , 2776-10 ####[facility]ORYCLIA [id number] [place] [id number] [place] Glucose [Mass/Vol] 105 mg/dL High 74-99 [facility] Comment on above: Order Comment: John chan Type: BLOOD SPECIMENOrdering Facility: [facility] Address: [address] [place], [place] [address] Result Comment: The [place] [employer] (ADA) provides guidance for cutoff [...] Standards of Medical Care in Diabetes 2016, [place] [employer]. Diabetes Care. 2016.39(Suppl 1). Performed By: #### 2 4321-2, , 2776-10 ####[facility]ORYCLIA [id number] [place] [address] [place] Potassium [Moles/Vol] 3.2 mmol/L Low 3.7-5.1 [facility] Comment on above: Order Comment: John chan Type: BLOOD SPECIMENOrdering Facility: [facility] Address: [address] [place], [place] [address] Performed By: #### 2 4321-2, , 2776-10 ####[facility]CLIA [id number] [place] [id number] [place] Sodium [Moles/Vol] 138 mmol/L Normal 136-144 [facility] Comment on above: Order Comment: John chan Type: BLOOD SPECIMENOrdering Facility: [facility] Address: [address] [place] [address] Performed By: #### 2 4321-2, , 2776-10 ####[facility]CLIA [id number] [place] [address] [place] Urea nitrogen [Mass/Vol] 9 mg/dL Normal 9-24 [facility] Comment on above: Order Comment: Speci men Type: BLOOD SPECIMENOrdering Facility: [facility] Address: [address] [place] [address] Performed By: #### 2 4321-2, 71154-4, 2777-1 ####[facility]ORYCLIA [id number] [place] [address] [place] CBC W Auto Differential pane l (Bld)on 02-26-2023 Basophils (Bld) [#/Vol] 0.03 10*3/uL Normal <0.11 [facility] Comment on above: Order Comment: Speci men Type: BLOOD SPECIMEN Ordering Facility: [facility] Address: [address] [place] [address] Performed By: #### 5 7021-8 #### [facility] CLIA [id number] [address] [place] [address] [place] Basophils/100 WBC (Bld) 0.4 % Normal [facility] Comment on above: Order Comment: Speci men Type: BLOOD SPECIMEN Ordering Facility: [facility] Address: [address] [place] [address] Performed By: #### 5 7021-8 #### [facility] CLIA [id number] [address] [place] [address] [place] Differential cell count method Nom (Bld) Auto Normal [facility] Comment on above: Order Comment: Speci men Type: BLOOD SPECIMEN Ordering Facility: [facility] Address: [address] [place] [address] Performed By: #### 5 7021-8 #### [facility] CLIA [id number] [address] [place] [address] [place] Eosinophils (Bld) [#/Vol] 0.21 10*3/uL Normal <0.46 [facility] Comment on above: Order Comment: Speci men Type: BLOOD SPECIMEN Ordering Facility: [facility] Address: [address] [place] [address] Performed By: #### 5 7021-8 #### [facility] CLIA [id number] [address] [place] [address] [place] Eosinophils/100 WBC (Bld) 2.6 % Normal [facility] Comment on above: Order Comment: Speci men Type: BLOOD SPECIMEN Ordering Facility: [facility] Address: [address] [place] [address] Performed By: #### 5 7021-8 #### [facility] CLIA [id number] [address] [place] [address] [place] Erythrocyte distribution width (RBC) [Ratio] 15.5 % High 11.5-15.0 [facility] Comment on above: Order Comment: Speci men Type: BLOOD SPECIMEN Ordering Facility: [facility] Address: [address] [place] [address] Performed By: #### 5 7021-8 #### [facility] CLIA [id number] [address] [place] [address] [place] Hematocrit (Bld) [Volume fraction] 34.6 % Low 39.0-51.0 [facility] Comment on above: Order Comment: Speci men Type: BLOOD SPECIMEN Ordering Facility: [facility] Address: [address] [place] [address] Performed By: #### 5 7021-8 #### [facility] CLIA [id number] [address] [place] [address] [place] Hemoglobin (Bld) [Mass/Vol] 11.8 g/dL Low 13.0-17.0 [facility] Comment on above: Order Comment: Speci men Type: BLOOD SPECIMEN Ordering Facility: [facility] Address: [address] [place] [address] Performed By: #### 5 7021-8 #### [facility] CLIA [id number] [address] [place] [address] [place] Immature granulocytes (Bld) [#/Vol] 0.03 10*3/uL Normal <0.10 [facility] Comment on above: Order Comment: Speci men Type: BLOOD SPECIMEN Ordering Facility: [facility] Address: [address] [place] [address] Performed By: #### 5 7021-8 #### [facility] CLIA [id number] [address] [place] [address] [place] Immature granulocytes/100 WBC (Bld) 0.4 % Normal [facility] Comment on above: Order Comment: Speci men Type: BLOOD SPECIMEN Ordering Facility: [facility] Address: [address] [place] [address] Performed By: #### 5 7021-8 #### [facility] CLIA [id number] [address] [place] [address] [place] Lymphocytes (Bld) [#/Vol] 0.71 10*3/uL Low 1.00-4.00 [facility] Comment on above: Order Comment: Speci men Type: BLOOD SPECIMEN Ordering Facility: [facility] Address: [address] [place] [address] Performed By: #### 5 7021-8 #### [facility] CLIA [id number] [address] [place] [address] [place] Lymphocytes/100 WBC (Bld) 8.9 % Normal [facility] Comment on above: Order Comment: Speci men Type: BLOOD SPECIMEN Ordering Facility: [facility] Address: [address] [place] [address] Performed By: #### 5 7021-8 #### [facility] CLIA [id number] [address] [place] [address] [place] MCH (RBC) [Entitic mass] 30.6 pg Normal 26.0-34.0 [facility] Comment on above: Order Comment: Speci men Type: BLOOD SPECIMEN Ordering Facility: [facility] Address: [address] [place] [address] Performed By: #### 5 7021-8 #### [facility] CLIA [id number] [address] [place] [address] [place] MCHC (RBC) [Mass/Vol] 34.1 g/dL Normal 30.5-36.0 [facility] Comment on above: Order Comment: Speci men Type: BLOOD SPECIMEN Ordering Facility: [facility] Address: [address] [place] [address] Performed By: #### 5 7021-8 #### [facility] CLIA [id number] [address] [place] [address] [place] MCV (RBC) [Entitic vol] 89.6 fL Normal 80.0-100.0 [facility] Comment on above: Order Comment: Speci men Type: BLOOD SPECIMEN Ordering Facility: [facility] Address: [address] [place] [address] Performed By: #### 5 7021-8 #### [facility] CLIA [id number] [address] [place] [address] [place] Monocytes (Bld) [#/Vol] 0.62 10*3/uL Normal <0.87 [facility] Comment on above: Order Comment: Speci men Type: BLOOD SPECIMEN Ordering Facility: [facility] Address: [address] [address] Performed By: #### 5 7021-8 #### [facility] CLIA [id number] [address] [place] [address] [place] Monocytes/100 WBC (Bld) 7.8 % Normal [facility] Comment on above: Order Comment: Speci men Type: BLOOD SPECIMEN Ordering Facility: [facility] Address: [address] [place] [address] Performed By: #### 5 7021-8 #### [facility] CLIA [id number] [address] [place] [address] [place] Neutrophils (Bld) [#/Vol] 6.37 10*3/uL Normal 1.45-7.50 [facility] Comment on above: Order Comment: Speci men Type: BLOOD SPECIMEN Ordering Facility: [facility] Address: [address] [place] [address] Performed By: #### 5 7021-8 #### [facility] CLIA [id number] [address] [place] [address] [place] Neutrophils/100 WBC (Bld) 79.9 % Normal [facility] Comment on above: Order Comment: Speci men Type: BLOOD SPECIMEN Ordering Facility: [facility] Address: [address] [address] Performed By: #### 5 7021-8 #### [facility] CLIA [id number] [address] [place] [address] [place] Nucleated RBC (Bld) [#/Vol] 10*3/uL Normal <0.01 [facility] Comment on above: Order Comment: Speci men Type: BLOOD SPECIMEN Ordering Facility: [facility] Address: [address] [address] Performed By: #### 5 7021-8 #### [facility] CLIA [id number] [address] [place] [address] [place] Nucleated RBC/100 WBC (Bld) [Ratio] 0.0 /100 WBC Normal [facility] Comment on above: Order Comment: Speci men Type: BLOOD SPECIMEN Ordering Facility: [facility] Address: [address] [address] Performed By: #### 5 7021-8 #### [facility] CLIA [id number] [address] [place] [address] [place] Platelet mean volume (Bld) [Entitic vol] 11.0 fL Normal 9.0-12.7 [facility] Comment on above: Order Comment: Speci men Type: BLOOD SPECIMEN Ordering Facility: [facility] Address: [address] [address] Performed By: #### 5 7021-8 #### [facility] CLIA [id number] [address] [place] [address] [place] Platelets (Bld) [#/Vol] 131 10*3/uL Low 150-400 [facility] Comment on above: Order Comment: Speci men Type: BLOOD SPECIMEN Ordering Facility: [facility] Address: [address] [address] Performed By: #### 5 7021-8 #### [facility] CLIA [id number] [address] [place] [address] [place] RBC (Bld) [#/Vol] 3.86 10*6/uL Low 4.20-6.00 [facility] Comment on above: Order Comment: Speci men Type: BLOOD SPECIMEN Ordering Facility: [facility] Address: [address] [id number] Performed By: #### 5 7021-8 #### [facility] CLIA [id number] [place] [address] [place] WBC (Bld) [#/Vol] 7.97 10*3/uL Normal 3.70-11.00 [facility] Comment on above: Order Comment: Speci men Type: BLOOD SPECIMEN Ordering Facility: [facility] Address: [address] Performed By: #### 5 7021-8 #### [facility] CLIA [id number] CONSULT PROGon 02-26-2023 CONSULT PROG HNO ID: [id number] Author: Lakeisha Mota APRN.MORTGAGE LOAN COORDINATOR Service: Pain Management Author Type: Nurse Practitioner [...] Lymph 1.00 - 4.00 k/uL 0.71 (L) [place]% % 7.8 Abs [place] <0.87 k/uL 0.62 Eosin% % 2.6 Abs Eosin <0.46 k/uL 0.21 Baso% % 0.4 Abs Baso <0.11 k/uL 0.03 Immature Gran % % 0.4 IMMATURE GRANS (ABS) <0.10 k/uL 0.03 NRBC /100 WBC 0.0 Absolute nRBC <0.01 k/uL <0.01 (more content not included)... Normal [facility] Magnesium [facility] 02-26 Magnesium [Mass/Vol] 1.8 mg/dL Normal 1.7-2.3 [facility] Comment on above: Order Comment: Speci men Type: BLOOD SPECIMENOrdering Facility: [facility] Address: [address] [place] [address] Performed By: #### 2 4321-2, , 2776-10 ####[facility] [id number] [address] NURSING PROGon 02-26-2023 NURSING PROG HNO ID: [id number] Author: Christie Mayberry RN Service: Nursing Author [...] sent to surgery for further orders. Normal [facility] Phosphate [facility] 02-26 Phosphate [Mass/Vol] 1.4 mg/dL Low 2.7-4.8 [facility] Comment on above: Order Comment: Speci men Type: BLOOD SPECIMENOrdering Facility: [facility] Address: [address] [place] [address] Performed By: #### 2 4321-2, , 2776-10 ####[facility] [id number] [address] THERAPY NTon 02-26-2023 THERAPY NT HNO ID: [id number] Author: Ree Gardner, PT Service: Physical Therapy Author Type: Physical Therapist Type: Therapy (PT/OT/Speech/Resp) Filed: 02/26/2023 11:44 AM Note Text: Physical Therapy Treatment SERVICE DATE: 02/26/2023 SERVICE TIME: 1027 to 1051 ROOM: [place] [address] Recommended Discharge Disposition: Subacute/SNF Recommended Discharge Disposition [...] Surgery For Left Inguinal Hernia, S/P Attempted Lzfn-Cob-Xhjdf Repair Of Left Femoral Hernia, Excision Of Previously Implanted Mesh, Exploratory Laparotomy, Bilateral TAR, Implantation Of 30 x 30 cm Prolene Mesh 02/23/23 Reason for Hospital Admission: Scheduled Surgery For Left Inguinal Hernia, S/P Attempted Xhse-Kbl-Kdctm Repair Of Left Femoral Hernia, Excision Of [...] Comment Comments: In one level home in [place], [place] Assistance Available: PRN Entry To Home: [...] Muscle Weakness (generalized) Interventions Provided: Therapeutic Activity (25653) Therapeutic Activity (25493) Treatment Minutes: 24 $ Therapeutic Activity (14983) Billed Units: 2 units Training AND Education Provided in: Anatomy and Impact on Deficits, Benefits of In-Hospital Mobility, Disease Spe (more content not included)... Normal [facility] Basic metabolic 2000 panelon 02-25-2023 Anion gap [Moles/Vol] 9 mmol/L Normal -18 [facility] Comment on above: Order Comment: Speci men Type: BLOOD SPECIMENOrdering Facility: [facility] Address: [address] [place], [place] [address] Performed By: #### 1 9123-9, 27704-14, 96403-2 ####[facility] [id number] [place] [id number] [place] Calcium [Mass/Vol] 8.6 mg/dL Normal 8.5-10.2 [facility] Comment on above: Order Comment: Speci men Type: BLOOD SPECIMENOrdering Facility: [facility] Address: [address] [address] Performed By: #### 1 9123-9, 27704-14, 07260-9 ####[facility] [id number] [place] [address] [place] Chloride [Moles/Vol] 106 mmol/L High 97-105 [facility] Comment on above: Order Comment: Speci men Type: BLOOD SPECIMENOrdering Facility: [facility] Address: [address] [address] Performed By: #### 1 9123-9, 27704-14, 05106-6 ####[facility] [id number] [place] [id number] [place] CO2 [Moles/Vol] 24 mmol/L Normal 22-30 [facility] Comment on above: Order Comment: Speci men Type: BLOOD SPECIMENOrdering Facility: [facility] Address: [address] [address] Performed By: #### 1 9123-9, 27704-14, 16463-5 ####[facility] [id number] [place] [id number] [place] Creatinine [Mass/Vol] 0.57 mg/dL Low 0.73-1.22 [facility] Comment on above: Order Comment: Speci men Type: BLOOD SPECIMENOrdering Facility: [facility] Address: [address] [address] Performed By: #### 1 9123-9, 2777, 69722-6 ####[facility] [id number] [place] [address] [place] ESTIMATED GLOMERULAR FILTRATION RATE 102 mL/min/1.73m??? Normal >=60 [facility] Comment on above: Order Comment: John chan Type: BLOOD SPECIMENOrdering Facility: [facility] Address: [address] [place] [address] Result Comment: Trena mated Glomerular Filtration Rate [...] actual GFR. Performed By: #### 1 9123-9, 2777-1, 48348-0 ####[facility] [id number] [place] [address] [place] Glucose [Mass/Vol] 163 mg/dL High 74-99 [facility] Comment on above: Order Comment: John chan Type: BLOOD SPECIMENOrdering Facility: [facility] Address: [address] [place] [address] Result Comment: The [place] [employer] (ADA) provides guidance for cutoff [...] Standards of Medical Care in Diabetes 2016, [place] [employer]. Diabetes Care. 2016.39(Suppl 1). Performed By: #### 1 9123-9, 2777-1, 72733-9 ####[facility] [id number] [place] [id number] [place] Potassium [Moles/Vol] 3.4 mmol/L Low 3.7-5.1 [facility] Comment on above: Order Comment: Speci men Type: BLOOD SPECIMENOrdering Facility: [facility] Address: [address] [address] Performed By: #### 1 9123-9, 27704-14, 67068-5 ####[facility] [id number] [place] [address] [place] Sodium [Moles/Vol] 139 mmol/L Normal 136-144 [facility] Comment on above: Order Comment: Speci men Type: BLOOD SPECIMENOrdering Facility: [facility] Address: [address] [address] Performed By: #### 1 9123-9, 2776-10, ####[facility] [id number] [place] [address] [place] Urea nitrogen [Mass/Vol] 9 mg/dL Normal 9-24 [facility] Comment on above: Order Comment: Speci men Type: BLOOD SPECIMENOrdering Facility: [facility] Address: [address] [address] Performed By: #### 1 9123-9, 2776-10, ####[facility] [id number] [place] [address] [place] CBC W Auto Differential pane l (Bld)on 02-25-2023 Basophils (Bld) [#/Vol] 10*3/uL Normal <0.11 [facility] Comment on above: Order Comment: Speci men Type: BLOOD SPECIMEN Ordering Facility: [facility] Address: [address] [address] Performed By: #### 5 7021-8 #### [facility] CLIA [id number] [address] [place] Basophils/100 WBC (Bld) 0.2 % Normal [facility] Comment on above: Order Comment: Speci men Type: BLOOD SPECIMEN Ordering Facility: [facility] Address: [address] [address] Performed By: #### 5 7021-8 #### [facility] CLIA [id number] [address] [place] [address] [place] Differential cell count method Nom (Bld) Auto Normal [facility] Comment on above: Order Comment: Speci men Type: BLOOD SPECIMEN Ordering Facility: [facility] Address: [address] [address] Performed By: #### 5 7021-8 #### [facility] CLIA [id number] [address] [place] [address] [place] Eosinophils (Bld) [#/Vol] 0.16 10*3/uL Normal <0.46 [facility] Comment on above: Order Comment: Speci men Type: BLOOD SPECIMEN Ordering Facility: [facility] Address: [address] [place] [address] Performed By: #### 5 7021-8 #### [facility] CLIA [id number] [address] [place] [address] [place] Eosinophils/100 WBC (Bld) 1.9 % Normal [facility] Comment on above: Order Comment: Speci men Type: BLOOD SPECIMEN Ordering Facility: [facility] Address: [address] [place] [address] Performed By: #### 5 7021-8 #### [facility] CLIA [id number] [address] [place] [address] [place] Erythrocyte distribution width (RBC) [Ratio] 16.2 % High 11.5-15.0 [facility] Comment on above: Order Comment: Speci men Type: BLOOD SPECIMEN Ordering Facility: [facility] Address: [address] [address] Performed By: #### 5 7021-8 #### [facility] CLIA [id number] [address] [place] [address] [place] Hematocrit (Bld) [Volume fraction] 38.3 % Low 39.0-51.0 [facility] Comment on above: Order Comment: Speci men Type: BLOOD SPECIMEN Ordering Facility: [facility] Address: [address] [place] [address] Performed By: #### 5 7021-8 #### [facility] CLIA [id number] [address] [place] [address] [place] Hemoglobin (Bld) [Mass/Vol] 12.2 g/dL Low 13.0-17.0 [facility] Comment on above: Order Comment: Speci men Type: BLOOD SPECIMEN Ordering Facility: [facility] Address: [address] [place] [address] Performed By: #### 5 7021-8 #### [facility] CLIA [id number] [address] [place] [address] [place] Immature granulocytes (Bld) [#/Vol] 0.05 10*3/uL Normal <0.10 [facility] Comment on above: Order Comment: Speci men Type: BLOOD SPECIMEN Ordering Facility: [facility] Address: [address] [place] [address] Performed By: #### 5 7021-8 #### [facility] CLIA [id number] [address] [place] [address] [place] Immature granulocytes/100 WBC (Bld) 0.6 % Normal [facility] Comment on above: Order Comment: Speci men Type: BLOOD SPECIMEN Ordering Facility: [facility] Address: [address] [place] [address] Performed By: #### 5 7021-8 #### [facility] CLIA [id number] [address] [place] [address] [place] Lymphocytes (Bld) [#/Vol] 0.83 10*3/uL Low 1.00-4.00 [facility] Comment on above: Order Comment: Speci men Type: BLOOD SPECIMEN Ordering Facility: [facility] Address: [address] [place] [address] Performed By: #### 5 7021-8 #### [facility] CLIA [id number] [address] [place] [address] [place] Lymphocytes/100 WBC (Bld) 9.8 % Normal [facility] Comment on above: Order Comment: Speci men Type: BLOOD SPECIMEN Ordering Facility: [facility] Address: [address] [place] [address] Performed By: #### 5 7021-8 #### [facility] CLIA [id number] [address] [place] [address] [place] MCH (RBC) [Entitic mass] 30.2 pg Normal 26.0-34.0 [facility] Comment on above: Order Comment: Speci men Type: BLOOD SPECIMEN Ordering Facility: [facility] Address: [address] [place] [address] Performed By: #### 5 7021-8 #### [facility] CLIA [id number] [address] [place] [address] [place] MCHC (RBC) [Mass/Vol] 31.9 g/dL Normal 30.5-36.0 [facility] Comment on above: Order Comment: Speci men Type: BLOOD SPECIMEN Ordering Facility: [facility] Address: [address] [place] [address] Performed By: #### 5 7021-8 #### [facility] CLIA [id number] [address] [place] [address] [place] MCV (RBC) [Entitic vol] 94.8 fL Normal 80.0-100.0 [facility] Comment on above: Order Comment: Speci men Type: BLOOD SPECIMEN Ordering Facility: [facility] Address: [address] [place] [address] Performed By: #### 5 7021-8 #### [facility] CLIA [id number] [address] [place] [address] [place] Monocytes (Bld) [#/Vol] 0.68 10*3/uL Normal <0.87 [facility] Comment on above: Order Comment: Speci men Type: BLOOD SPECIMEN Ordering Facility: [facility] Address: [address] [place] [address] Performed By: #### 5 7021-8 #### [facility] CLIA [id number] [address] [place] [address] [place] Monocytes/100 WBC (Bld) 8.0 % Normal [facility] Comment on above: Order Comment: Speci men Type: BLOOD SPECIMEN Ordering Facility: [facility] Address: [address] [address] Performed By: #### 5 7021-8 #### [facility] CLIA [id number] [address] [place] [address] [place] Neutrophils (Bld) [#/Vol] 6.77 10*3/uL Normal 1.45-7.50 [facility] Comment on above: Order Comment: Speci men Type: BLOOD SPECIMEN [facility] [facility] Address: [address] [place] [address] Performed By: #### 5 7021-8 #### [facility] CLIA [id number] [address] [place] [address] [place] Neutrophils/100 WBC (Bld) 79.5 % Normal [facility] Comment on above: Order Comment: Speci men Type: BLOOD SPECIMEN Ordering Facility: [facility] Address: [address] [place] [address] Performed By: #### 5 7021-8 #### [facility] CLIA [id number] [address] [place] [address] [place] Nucleated RBC (Bld) [#/Vol] 10*3/uL Normal <0.01 [facility] Comment on above: Order Comment: Speci men Type: BLOOD SPECIMEN Ordering Facility: [facility] Address: [address] [place] [address] Performed By: #### 5 7021-8 #### [facility] CLIA [id number] [address] [place] [address] [place] Nucleated RBC/100 WBC (Bld) [Ratio] 0.0 /100 WBC Normal [facility] Comment on above: Order Comment: Speci men Type: BLOOD SPECIMEN Ordering Facility: [facility] Address: [address] [place] [address] Performed By: #### 5 7021-8 #### [facility] CLIA [id number] [address] [place] [address] [place] Platelet mean volume (Bld) [Entitic vol] 10.8 fL Normal 9.0-12.7 [facility] Comment on above: Order Comment: Speci men Type: BLOOD SPECIMEN Ordering Facility: [facility] Address: [address] [place] [address] Performed By: #### 5 7021-8 #### [facility] CLIA [id number] [address] [place] [address] [place] Platelets (Bld) [#/Vol] 129 10*3/uL Low 150-400 [facility] Comment on above: Order Comment: Speci men Type: BLOOD SPECIMEN Ordering Facility: [facility] Address: [address] [place] [address] Result Comment: No c lot detected.Platelet count confirmed by manual review of peripheral blood smear. Performed By: #### 5 7021-8 #### [facility] CLIA [id number] [address] [place] [address] [place] RBC (Bld) [#/Vol] 4.04 10*6/uL Low 4.20-6.00 [facility] Comment on above: Order Comment: Speci men Type: BLOOD SPECIMEN Ordering Facility: [facility] Address: [address] [place] [address] Performed By: #### 5 7021-8 #### [facility] CLIA [id number] [address] [place] [address] [place] WBC (Bld) [#/Vol] 8.51 10*3/uL Normal 3.70-11.00 [facility] Comment on above: Order Comment: Speci men Type: BLOOD SPECIMEN Ordering Facility: [facility] Address: [address] [place] [address] Performed By: #### 5 7021-8 #### [facility] CLIA [id number] [address] [place] [address] OF [facility] CONSULT PROGon 02-25-2023 CONSULT PROG HNO ID: [id number] Author: Norberto Kennedy PA-C Service: Pain Management Author Type: Physician Conventional Underwriter Type: Consult Progress Note Filed: 02/25/2023 8:26 AM Note Text: PERIPHERAL NERVE CATHETER PROGRESS NOTE PATIENT NAME: Yoni Ramirez SERVICE DATE: 02/25/2023 SERVICE TIME: 8:24 AM ASSESSMENT Yoni Ramirez is a 77 year old male who is POD# 2, S/P .Attempted rabs-kld-lnahs repair of L femoral hernia Excision of previously implanted mesh Exploratory laparotomy Bilateral TAR Implantation of 30 x 30 cm prolene mesh Patient reports good pain control 0/10 with rest. BTAPS running ropiv 0.2% @ 6 ml Q 30 min. PLAN Continue current pain regimen, will follow. SUBJECTIVE CHIEF COMPLAINT: POD# 1, S/P .Attempted gqga-qfq-miyfb repair of L femoral hernia Excision of [...] which included preparing to see the patient, ciaq-jl-divt patient care, completing clinical documentation, obtaining and/or reviewing separately obtained history, and performing a medically appropriate examination. SIGNATURE: Norberto Kennedy PA-C PATIENT NAME: Yoni Ramirez DATE: February 25, 2023 TIME: 8:24 AM PAGER/CONTACT #: APMS [phone] Normal [facility] Magnesium SerPl-mCncon 02-25 Magnesium [Mass/Vol] 1.9 mg/dL Normal 1.7-2.3 [facility] Comment on above: Order Comment: Speci men Type: BLOOD SPECIMENOrdering Facility: [facility] Address: [address] [place], [place] [id number] Performed By: #### 1 9123-9, 2777-1, 67933-6 ####[facility] [id number] [place] [address] [place] NURSING PROGon 02-25-2023 NURSING PROG HNO ID: [id number] Author: Ritchie Wright RN Service: ? Author Type: Registered Nurse Type: Nursing Progress Note Filed: 02/25/2023 7:24 PM Note Text: 0918: ambulated with assistance to chair C/o dizziness after rising BP:120/59 pulse 73 94% 3L. Pt. Drowsy, oriented to person, place, time delirious/confused with situation. Surgical team made aware. 1050: Pt disconnected Left tap block. Block stopped pain management made aware. Normal [facility] NURSING PROG HNO ID: [id number] Author: Christie Mayberry RN Service: Nursing Author Type: Registered Nurse Type: Nursing Progress Note Filed: 02/25/2023 4:44 AM Note Text: 0443: Pt's oxygen sating at 90% on 2L. Denies SOB. Placed on 3L NC until CPAP arrives. Pt's home unit unable to hook to O2. IS use encouraged. Normal [facility] Phosphate SerPl-mCncon 02-25 Phosphate [Mass/Vol] 1.4 mg/dL Low 2.7-4.8 [facility] Comment on above: Order Comment: Speci men Type: BLOOD SPECIMENOrdering Facility: [facility] Address: [address] [place] [address] Performed By: #### 1 9123-9, 2777-1, 78341-0 ####[facility] [id number] [address] OF [facility] BRIEF OP NOTon 02-24-2023 BRIEF OP NOT HNO ID: [id number] Author: Sergio Webster MD Service: Critical Care Author Type: Resident Type: Brief Op Note Filed: 02/23/2023 10:28 PM Note Text: BRIEF OPERATIVE / PROCEDURE NOTE LOG ID: [id number] SURGERY/PROCEDURE DATE: 02/23/2023 INCISION/PROCEDURE START TIME: 3:01 PM INCISION CLOSE/PROCEDURE END TIME: 10:28 PM SURGEON(S)/PROCEDURALIST(S) AND ARMATURE COIL WINDER(S): Surgeon(s) and Role: * Donato Bishop MD - Primary * Jacky Curiel MD - Resident - Assisting * Sergio Webster MD - Resident - Assisting * Carolina Lorenz MD - Resident - Assisting * Loyd Floyd MD - Fellow No Additional Staff SURGERY/PROCEDURE(S): Attempted xzsu-xyj-ufijh repair of L femoral hernia Excision of [...] February 23, 2023 TIME: 10:24 PM Normal [facility] Basic metabolic 2000 panelon 02-24-2023 Anion gap [Moles/Vol] 8 mmol/L Low 9-18 [facility] Comment on above: Order Comment: Speci men Type: BLOOD SPECIMEN Ordering Facility: [facility] Address: [address] [place] [address] Performed By: #### 2 4320-11, #### [facility] CLIA [id number] [address] [place] [address] [place] Calcium [Mass/Vol] 8.6 mg/dL Normal 8.5-10.2 [facility] Comment on above: Order Comment: Speci men Type: BLOOD SPECIMEN Ordering Facility: [facility] Address: [address] [place] [address] Performed By: #### 2 4320-11, #### [facility] CLIA [id number] [address] [place] [address] [place] Chloride [Moles/Vol] 105 mmol/L Normal 97-105 [facility] Comment on above: Order Comment: Speci men Type: BLOOD SPECIMEN Ordering Facility: [facility] Address: [address] [place] [address] Performed By: #### 2 4320-11, #### [facility] CLIA [id number] [address] [place] [address] [place] CO2 [Moles/Vol] 27 mmol/L Normal 22-30 [facility] Comment on above: Order Comment: Speci men Type: BLOOD SPECIMEN Ordering Facility: [facility] Address: [address] [place] [address] Performed By: #### 2 4321-2, #### [facility] CLIA [id number] [address] [place] [address] [place] Creatinine [Mass/Vol] 0.61 mg/dL Low 0.73-1.22 [facility] Comment on above: Order Comment: John chan Type: BLOOD SPECIMEN Ordering Facility: [facility] Address: [address] [address] Performed By: #### 2 4321-2, #### [facility] CLIA [id number] [address] [place] [address] [place] ESTIMATED GLOMERULAR FILTRATION RATE 100 mL/min/1.73m??? Normal >=60 [facility] Comment on above: Order Comment: John cahn Type: BLOOD SPECIMEN Ordering Facility: [facility] Address: [address] [place] [address] Result Comment: Trena mated Glomerular Filtration Rate [...] GFR. Performed By: #### 2 4321-2, #### [facility] CLIA [id number] [address] [place] [address] [place] Glucose [Mass/Vol] 163 mg/dL High 74-99 [facility] Comment on above: Order Comment: John chan Type: BLOOD SPECIMEN Ordering Facility: [facility] Address: [address] [address] Result Comment: The [place] [employer] (ADA) provides guidance for cutoff [...] Standards of Medical Care in Diabetes 2016, [place] [employer]. Diabetes Care. 2016.39(Suppl 1). Performed By: #### 2 1-2, #### [facility] CLIA [id number] [place] [address] [place] Potassium [Moles/Vol] 3.8 mmol/L Normal 3.7-5.1 [facility] Comment on above: Order Comment: Speci men Type: BLOOD SPECIMEN Ordering Facility: [facility] Address: [address] [place] [address] Performed By: #### 2 4320-11, #### [facility] CLIA [id number] [address] [place] [address] [place] Sodium [Moles/Vol] 140 mmol/L Normal 136-144 [facility] Comment on above: Order Comment: Speci men Type: BLOOD SPECIMEN Ordering Facility: [facility] Address: [address] [address] Performed By: #### 2 4320-11, #### [facility] CLIA [id number] [address] [place] [address] [place] Urea nitrogen [Mass/Vol] 11 mg/dL Normal 9-24 [facility] Comment on above: Order Comment: Speci men Type: BLOOD SPECIMEN Ordering Facility: [facility] Address: [address] [address] Performed By: #### 2 4320-11, #### [facility] CLIA [id number] [address] [place] [address] [place] CBC panel Auto (Bld)on 02-24 Erythrocyte distribution width (RBC) [Ratio] 16.0 % High 11.5-15.0 [facility] Comment on above: Order Comment: Speci men Type: BLOOD SPECIMEN Ordering Facility: [facility] Address: [address] [address] Performed By: #### 5 8410-2 #### [facility] CLIA [id number] [address] [place] [address] Hematocrit (Bld) [Volume fraction] 38.3 % Low 39.0-51.0 [facility] Comment on above: Order Comment: Speci men Type: BLOOD SPECIMEN Ordering Facility: [facility] Address: [address] [place] [address] Performed By: #### 5 8410-2 #### [facility] CLIA [id number] [address] [place] [address] [place] Hemoglobin (Bld) [Mass/Vol] 12.8 g/dL Low 13.0-17.0 [facility] Comment on above: Order Comment: Speci men Type: BLOOD SPECIMEN Ordering Facility: [facility] Address: [address] [place] [address] Performed By: #### 5 8410-2 #### [facility] CLIA [id number] [address] [place] [address] MCH (RBC) [Entitic mass] 30.3 pg Normal 26.0-34.0 [facility] Comment on above: Order Comment: Speci men Type: BLOOD SPECIMEN Ordering Facility: [facility] Address: [address] [place] [address] Performed By: #### 5 8410-2 #### [facility] CLIA [id number] [address] [place] [address] [place] MCHC (RBC) [Mass/Vol] 33.4 g/dL Normal 30.5-36.0 [facility] Comment on above: Order Comment: Speci men Type: BLOOD SPECIMEN Ordering Facility: [facility] Address: [address] [place] [address] Performed By: #### 5 8410-2 #### [facility] CLIA [id number] [address] [place] [address] MCV (RBC) [Entitic vol] 90.8 fL Normal 80.0-100.0 [facility] Comment on above: Order Comment: Speci men Type: BLOOD SPECIMEN Ordering Facility: [facility] Address: [address] [address] Performed By: #### 5 8410-2 #### [facility] CLIA [id number] [address] [place] [address] [place] Nucleated RBC (Bld) [#/Vol] 10*3/uL Normal <0.01 [facility] Comment on above: Order Comment: Speci men Type: BLOOD SPECIMEN Ordering Facility: [facility] Address: [address] [address] Performed By: #### 5 8410-2 #### [facility] CLIA [id number] [address] [place] [address] [place] Platelet mean volume (Bld) [Entitic vol] 11.3 fL Normal 9.0-12.7 [facility] Comment on above: Order Comment: Speci men Type: BLOOD SPECIMEN Ordering Facility: [facility] Address: [address] [address] Performed By: #### 5 8410-2 #### [facility] CLIA [id number] [address] [place] [address] [place] Platelets (Bld) [#/Vol] 146 10*3/uL Low 150-400 [facility] Comment on above: Order Comment: Speci men Type: BLOOD SPECIMEN Ordering Facility: [facility] Address: [address] [address] Performed By: #### 5 8410-2 #### [facility] CLIA [id number] [address] [place] [address] [place] RBC (Bld) [#/Vol] 4.22 10*6/uL Normal 4.20-6.00 [facility] Comment on above: Order Comment: Speci men Type: BLOOD SPECIMEN Ordering Facility: [facility] Address: [address] [place] [address] Performed By: #### 5 8410-2 #### [facility] CLIA [id number] [address] [place] [address] [place] WBC (Bld) [#/Vol] 10.56 10*3/uL Normal 3.70-11.00 [facility] Comment on above: Order Comment: Speci men Type: BLOOD SPECIMEN Ordering Facility: [facility] Address: [place] [address] Performed By: #### 5 8410-2 #### [facility] CLIA [id number] [address] [address] [id number] [facility] CONSULT PROGon 02-24-2023 CONSULT PROG HNO ID: [id number] Author: Norberto Kennedy PA-C Service: Pain Management Author Type: Physician Conventional Underwriter Type: Consult Progress Note Filed: 02/24/2023 8:51 AM Note Text: PERIPHERAL NERVE CATHETER PROGRESS NOTE PATIENT NAME: Yoni Ramirez SERVICE DATE: 02/24/2023 SERVICE TIME: 8:37 AM ASSESSMENT Yoni Ramirez is a 77 year old male who is POD# 1, S/P .Attempted ludv-phz-uaqmd repair of L femoral hernia Excision of [...] SUBJECTIVE CHIEF COMPLAINT: POD# 1, S/P .Attempted wynh-giq-dpwgr repair of L femoral hernia Excision of [...] which included preparing to see the patient, fynn-cf-sssn patient care, completing clinical documentation, obtaining and/or reviewing separately obtained history, performing a medically appropriate examination, and care coordination (not separately reported). SIGNATURE: Norberto Kennedy PA-C PATIENT NAME: Yoni Ramirez DATE: February 24, 2023 TIME: 8:37 AM PAGER/CONTACT #: APMS [phone] Normal [facility] Magnesium SerPl-mCncon 02-24 Magnesium [Mass/Vol] 1.8 mg/dL Normal 1.7-2.3 [facility] Comment on above: Order Comment: Speci men Type: BLOOD SPECIMEN Ordering Facility: [facility] Address: [facility] [address] [id number] Performed By: #### 2 4321-2, 35031-3 #### [facility] CLIA [id number] [address] [place] [address] [place] NURSING PROGon 02-24-2023 NURSING PROG HNO ID: [id number] Author: Aminah Dos Santos RN Service: ? [...] Infusing as ordered . Ice provided. Normal [facility] THERAPY NTon 02-24-2023 THERAPY NT HNO ID: [id number] Author: Ree Gardner, PT Service: Physical Therapy Author Type: Physical Therapist Type: Therapy (PT/OT/Speech/Resp) Filed: 02/24/2023 4:39 PM Note Text: Physical Therapy Evaluation SERVICE DATE: 02/24/2023 SERVICE TIME: 1600 to 1633 ROOM: [address] [address] Recommended Discharge Disposition: Home Recommended Discharge Disposition [...] Surgery For Left Inguinal Hernia, S/P Attempted Fbar-Eeu-Itwdd Repair Of Left Femoral Hernia, Excision Of Previously Implanted Mesh, Exploratory Laparotomy, Bilateral TAR, Implantation Of 30 x 30 cm Prolene Mesh 02/23/23 Reason for Hospital Admission: Scheduled Surgery For Left Inguinal Hernia, S/P Attempted Lkxk-Hel-Slxce Repair Of Left Femoral Hernia, Excision Of [...] Comment Comments: In one level home in [place], [place] Assistance Available: PRN Entry To Home: [...] Reduced mobility-other Interventions Provided: Evaluation, Therapeutic Activity (33722) $ Evaluation-Moderate (95219) Billed Units: 1 unit Therapeutic Activity (82987) Treatment Minutes: 15 $ Therapeutic Activity (57039) Billed Units: 1 unit Training AND Education Provided in: Anatomy and Impact on Deficits, Assistive Device Use, Benefits of In-Hospital Mobility, Disease Specific Education, Expected Functional Level The Following Therapeutic Skills Were Used: Activity Dosing, Cues for Sequencing/Proper Technique for Activity, Cuing Verbal, Muscl (more content not included)... Normal [facility] THERAPY NT HNO ID: [id number] Author: Judith Hernandez OTR/L Service: Occupational Therapy Author Type: Occupational Therapist Type: Therapy (PT/OT/Speech/Resp) Filed: 02/24/2023 1:09 PM Note Text: Occupational Therapy Evaluation SERVICE DATE: 02/24/2023 SERVICE TIME: 40 to 18 ROOM: [address] [address] Scheduled Surgery For Left Inguinal Hernia, S/P Attempted Xypm-Zvi-Qumlg Repair Of Left Femoral Hernia, Excision Of [...] Shoe Horn, Long Handled Sponge, Wheeled Walker, Band Straightener, Sock Aid, Shower Chair OT 6 Clicks Score: 17 Precautions/Activity Restrictions: Abdominal, Bed/Chair Alarm, Fall Risk, Lines/Tubes/Drains, Diet Restrictions, Other: See Comments (Clear Liquid Diet, 2L 02 this date) Current Hospital Course: Scheduled Surgery For Left Inguinal Hernia, S/P Attempted Zkwk-Gkx-Sikqm Repair Of Left Femoral Hernia, Excision Of Previously Implanted Mesh, Exploratory Laparotomy, Bilateral TAR, Implantation Of 30 x 30 cm Prolene Mesh 02/23/23 Reason for Hospital Admission: Scheduled Surgery For Left Inguinal Hernia, S/P Attempted Hxlp-Ecb-Tyjem Repair Of Left Femoral Hernia, Excision Of Previously Implanted Mesh, Exploratory Laparotomy, Bilateral TAR, Implantation Of 30 x 30 cm Prolene Mesh 02/23/23 Relevant Past Medical History: MIHIR On CPAP, Primary HTN, Prostate CA, Gout, Refer to 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 [facility] THERAPY NT HNO ID: [id number] Author: VIKA Hall/Daniel Service: Occupational Therapy Author Type: Occupational Therapist Type: Therapy (PT/OT/Speech/Resp) Filed: 02/24/2023 12:40 PM Note Text: OCCUPATIONAL THERAPY MISSED VISIT SERVICE DATE: 02/24/2023 SERVICE TIME: 831 to 831 ROOM: [place] [address] Patient not seen due to other service at bedside. Will see as able. SIGNATURE: VIKA Hall/Daniel PATIENT NAME: Yoni Ramirez DATE: February 24, 2023 TIME: 8:37 AM [facility] ANES PRE-OPon 02-23-2023 ANES PRE-OP HNO ID: [id number] Author: Stefanie Hitchcock APRN.CRNA Service: Anesthesiology Author Type: Nurse Copy And Print Associate Type: Anesthesia Preprocedure Evaluation Filed: 02/23/2023 2:26 PM Note Text: ANESTHESIOLOGY DAY OF SURGERY NOTE : 1945 Procedure Information Date/Time: 02/23/23 1229 Procedure: HERNIORRHAPHY INGUINAL ELECTIVE ADULT REDUCIBLE (Left: Groin) - w/mesh Location: OR05 / OR Surgeons: Donato Bishop MD Estimated body [...] affected area twice daily. As needed) - lisinopril-hydroCHLOROthiaz evan (PRINZIDE, ZESTORETIC) 20-25 mg per tablet Take 1 tablet by mouth once daily. I have interviewed and examined the patient. I have reviewed the medical record and/or the pre-anesthesia evaluation, pertinent labs, and test results. This contains updated information obtained within 48 hours of Surgery/Procedure. SIGNATURE: Stefanie Hitchcock APRN.CRNA PATIENT NAME: Yoni Ramirez DATE: February 23, 2023 TIME: 2:24 PM CSN: [id number] [facility] PT EDon 02-23-2023 PT ED HNO ID: [id number] Author: Cecilia Jensen RN Service: ? Author [...] (RECOMMENDATION): None Electronically Signed By: Cecilia Jensen [facility] PT ED HNO ID: [id number] Author: Cecilia Jensen RN Service: ? Author [...] (RECOMMENDATION): None Electronically Signed By: Cecilia Jensen [facility] SURGICAL PATHOLOGYon 023 CASE REPORT [facility] Comment on above: Order Comment: Speci men Type: BLOOD SPECIMEN Ordering Facility: [facility] Address: [address] [place] [address] Result Comment: Surg ical Pathology Report Case: [id number] Authorizing Provider: Donato Bishop MD Collected: 02/23/2023 05:38 PM Ordering Location: [facility] Received: 02/26/2023 08:20 AM Operating Room Pathologist: Keara Hernandez MD Specimen: RETROPERITONEUM BIOPSY, peritoneal mass Performed By: #### 2 4321-2, #### [facility] CLIA [id number] [address] [place] [address] CLINICAL HISTORY w/mesh [facility] Comment on above: Order Comment: Speci men Type: BLOOD SPECIMEN Ordering Facility: [facility] Address: [address] [place], [place] [id number] Result Comment: Pre-op diagnosis: Unilateral recurrent inguinal hernia without obstruction or gangrene [K40.91] Performed By: #### 2 4321-2, #### [facility] CLIA [id number] [place] [address] OF [facility] FINAL DIAGNOSIS [facility] Comment on above: Order Comment: Speci men Type: BLOOD SPECIMEN Ordering Facility: [facility] Address: [address] [place] [address] Result Comment: A. R etroperitoneum, biopsy: - Degenerating fibroadipose tissue with dystrophic calcification. Performed By: #### 2 432-2, #### [facility] CLIA [id number] [address] [place] [address] OF [facility] FINAL PERFORMING LAB Normal [facility] Comment on above: Order Comment: Speci men Type: BLOOD SPECIMEN Ordering Facility: [facility] Address: [address] [place] [address] Result Comment: Diag nostic interpretation performed at [facility], [address] [place] [address] CLIA# [id number] Rn Radiation Oncology: Keara Hernandez M.D. Performed By: #### 2 4320-2, #### [facility] [place] CLIA [id number] [address] [place] [address] GROSS DESCRIPTION Normal [facility] Comment on above: Order Comment: Speci men Type: BLOOD SPECIMEN Ordering Facility: [facility] Address: [address] [place] [address] Result Comment: A. R ETROPERITONEUM BIOPSY Received [...] 2023 10:38 AM Gross examination performed at [facility], [address] [place] [address] CLIA # [id number] Performed By: #### 2 4321-2, #### [facility] CLIA [id number] [address] [place] [address] TYPE + SCREENon 02-23-2023 ABO A Normal [facility] Comment on above: Order Comment: Speci men Type: BLOOD SPECIMENOrdering Facility: [facility] Address: [address] [place] [address] Performed By: #### T SCR ####[facility] [id number] [address] Performed By: #### C ONABO ####[facility] [id number] [address] HISTORICAL AB SCR STATUS Negative [facility] Comment on above: Order Comment: Speci men Type: BLOOD SPECIMENOrdering Facility: [facility] Address: [address] [place] [address] Performed By: #### T SCR ####[facility] [id number] [address] Rh Nom (Bld) Positive [facility] Comment on above: Order Comment: Speci men Type: BLOOD SPECIMENOrdering Facility: [facility] Address: [address] [place] [address] Performed By: #### T SCR ####[facility] [id number] [address] Performed By: #### C ONABO ####[facility] [id number] [address] TYPE AND SCREEN EXPIRATION 02/26/2023 23:59 [facility] Comment on above: Order Comment: Speci men Type: BLOOD SPECIMENOrdering Facility: [facility] Address: [address] [place] [address] Performed By: #### T SCR ####[facility] [id number] [address] CBC AUTO DIFFon 02-21-2023 BASO # 0.0 103/ul Normal 0.0-0.1 [facility] Comment on above: Performed By: #### C BC ####[facility] [address] [place] [id number]. Alex Eddy Basophils/100 WBC (Bld) 0.5 % Normal 0.2-2.0 [facility] Comment on above: Performed By: #### C BC ####[facility] [address] [place] [id number]. Alex Eddy EO # 0.2 103/ul Normal 0.0-0.7 [facility] Comment on above: Performed By: #### C BC ####[facility] [address] [place], [place] [address]Dr. Alex Eddy Eosinophils/100 WBC (Bld) 4.0 % Normal 0.9-7.0 [facility] Comment on above: Performed By: #### C BC ####[facility] [address] [place], [place] [address]Dr. Alex Eddy Erythrocyte distribution width (RBC) [Ratio] 16.3 % Critically high 11.0-15.0 [facility] Comment on above: Performed By: #### C BC ####[facility] [address] [place], [place] [address]Dr. Alex Eddy Hematocrit (Bld) [Volume fraction] 43.3 % Normal 42.0-54.0 [facility] Comment on above: Performed By: #### C BC ####[facility] [address] [place], [place] [address]Dr. Alex Eddy Hemoglobin (Bld) [Mass/Vol] 14.0 g/dL Normal 14.0-18.0 [facility] Comment on above: Performed By: #### C BC ####[facility] [address] [place], [place] [address]Dr. Alex Eddy IG # 0.02 10e3/ul Normal 0.00-0.03 [facility] Comment on above: Performed By: #### C BC ####[facility] [address] [place], [place] [address]Dr. Alex Eddy IG % 0.4 % Normal 0.0-0.5 [facility] Comment on above: Performed By: #### C BC ####[facility] [address] [place], [place] [address]Pf. Alex Eddy LYMPH # 1.1 103/ul Critically low 1.2-3.8 The [facility] Comment on above: Performed By: #### C BC ####[facility] [address] [place], [place] [address]Ae. Alex Surjit Lymphocytes/100 WBC (Bld) 19.5 % Critically low 20.5-60.0 [facility] Comment on above: Performed By: #### C BC ####[facility] [address] [place] [id number]. Gretelmickey Eddy MANUAL DIFF REQ NO Normal [facility] Comment on above: Performed By: #### C BC ####[facility] [address] [place] [id number]. Alex Surjit MCH (RBC) [Entitic mass] 30.1 pg Normal 25.9-34.0 [facility] Comment on above: Performed By: #### C BC ####[facility] [address] [place] [id number]. Alex Eddy MCHC (RBC) [Mass/Vol] 32.3 g/dL Normal 29.9-35.2 [facility] Comment on above: Performed By: #### C BC ####[facility] [address] [place] [id number]. Gretelmickey Surjit MCV (RBC) [Entitic vol] 93.1 fL Normal 80.0-94.0 [facility] Comment on above: Performed By: #### C BC ####[facility] [address] [place] [id number]. Alex Surjit MONO # 0.7 103/ul Normal 0.3-0.8 [facility] Comment on above: Performed By: #### C BC ####[facility] [address] [place] [id number]. Gretelmickey Eddy Monocytes/100 WBC (Bld) 11.9 % Normal 1.7-12.0 [facility] Comment on above: Performed By: #### C BC ####[facility] [address] [place] [id number]. Alex Eddy NEUT # 3.5 103/ul Normal 1.4-6.5 [facility] Comment on above: Performed By: #### C BC ####[facility] [address] [place] [id number]. Alex Surjit Neutrophils/100 WBC (Bld) 63.7 % Normal 43.0-75.0 [facility] Comment on above: Performed By: #### C BC ####[facility] [address] [place] [address]Dr. Alex Eddy Platelet mean volume (Bld) [Entitic vol] 10.9 fL Normal 9.5-13.5 [facility] Comment on above: Performed By: #### C BC ####[facility] [address] [place] [id number]. Alex Eddy PLT 168 103/ul Normal 150-450 [facility] Comment on above: Performed By: #### C BC ####[facility] [address] [place] [id number]. Alex Eddy RBC 4.65 106/ul Critically low 4.70-6.10 The [facility] Comment on above: Performed By: #### C BC ####[facility] [address] [place] [id number]. Alex Eddy WBC 5.5 103/ul Normal 4.0-11.0 [facility] Comment on above: Performed By: #### C BC ####[facility] [address] [place] [id number]. Alex Eddy CRPon 02-21-2023 CRP 0.3 mg/dL Normal <=1.0 [facility] Comment on above: Performed By: #### C RP #### [facility] [id number] Alex Eddy [facility] SED [facility]ATE 37 mm/hr Critically high <=20 [facility] Comment on above: Performed By: #### S EDR #### [facility] [address] [address] [address] Alex Eddy CBC W Auto Differential pane l (Bld)on 02-14-2023 Basophils (Bld) [#/Vol] 0.05 10*3/uL <0.11 k/uL [facility] Basophils/100 WBC (Bld) 0.7 % [facility] Differential cell count method Nom (Bld) [facility] Eosinophils (Bld) [#/Vol] 0.29 10*3/uL <0.46 k/uL [facility] Eosinophils/100 WBC (Bld) 4.3 % [facility] Erythrocyte distribution width (RBC) [Ratio] 16.7 % High 11.5 - 15.0 % [facility] Hematocrit (Bld) [Volume fraction] 44.7 % 39.0 - 51.0 % [facility] Hemoglobin (Bld) [Mass/Vol] 14.4 g/dL 13.0 - 17.0 g/dL [facility] Immature granulocytes (Bld) [#/Vol] 0.07 10*3/uL <0.10 k/uL [facility] Immature granulocytes/100 WBC (Bld) 1.0 % [facility] Lymphocytes (Bld) [#/Vol] 1.37 10*3/uL 1.00 - 4.00 k/uL [facility] Lymphocytes/100 WBC (Bld) 20.3 % [facility] MCH (RBC) [Entitic mass] 30.3 pg 26.0 - 34.0 pg [facility] MCHC (RBC) [Mass/Vol] 32.2 g/dL 30.5 - 36.0 g/dL [facility] MCV (RBC) [Entitic vol] 93.9 fL 80.0 - 100.0 fL [facility] Monocytes (Bld) [#/Vol] 0.91 10*3/uL High <0.87 k/uL [facility] Monocytes/100 WBC (Bld) 13.5 % [facility] Neutrophils (Bld) [#/Vol] 4.06 10*3/uL 1.45 - 7.50 k/uL [facility] Neutrophils/100 WBC (Bld) 60.2 % [facility] Nucleated RBC (Bld) [#/Vol] <0.01 k/uL [facility] Nucleated RBC/100 WBC (Bld) [Ratio] 0.0 /100 WBC [facility] Platelet mean volume (Bld) [Entitic vol] 10.8 fL 9.0 - 12.7 fL [facility] Platelets (Bld) [#/Vol] 191 10*3/uL 150 - 400 k/uL [facility] RBC (Bld) [#/Vol] 4.76 10*6/uL 4.20 - 6.0 0 m/uL [facility] WBC (Bld) [#/Vol] 6.75 10*3/uL 3.70 - 11. 00 k/uL [facility] MRI PELVIS WO/W IVCONon 02-2 MRI PELVIS WO/W IVCON * * *Final Report* * * DATE OF EXAM: Dec 06 2022 10:54AM [facility] 0742 - MRI PELVIS WO/W IVCON / [...] Left hernia contains a loop of colon Chief Internal Auditor: ROSANA Transcribe Date/Time: Dec 07 2022 9:43A Dictated by : EVANS ADAM MD This examination was interpreted and the report reviewed and electronically signed by: EVANS ADAM MD on Dec 07 2022 10:19AM EST [id number] [facility] NURSING PROGon 12-06-2022 NURSING PROG HNO ID: [id number] Author: Melanie Pierre RN Service: Nursing Author [...] DATE: December 06, 2022 TIME: 9:07 AM [facility] ALLIED HEALTHon 12-04-2022 ALLIED HEALTH HNO ID: [id number] Author: Kelly Benavides, humanities and languages professor Service: Radiology Author Type: Wire Coiler 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 Operator Type: Allied Health Filed: 12/04/2022 4:34 PM [...] Intact, Site disposition Discontinued SIGNED BY: Kelly Benavides, humanities and languages professor December 04, 2022 4:33 PM [facility] MRI PELVIS WO/W IVCONon 02-2 MRI PELVIS WO/W IVCON * * *Final Report* * * DATE OF EXAM: Dec 04 2022 4:56PM [facility] 0742 - MRI PELVIS WO/W IVCON [...] Left hernia contains a loop of colon Chief Internal Auditor: ROSANA Transcribe Date/Time: Dec 07 2022 9:43A Dictated by : EVANS ADAM MD This examination was interpreted and the report reviewed and electronically signed by: EVANS ADAM MD on Dec 07 2022 10:19AM EST [id number] Normal [facility] NURSING PROGon 12-04-2022 NURSING PROG HNO ID: [id number] Author: Sima Craig RN Service: Nursing Author [...] DATE: December 04, 2022 TIME: 2:36 PM [facility] AFP (TUMOR MARKER)on 023 AFP, Serum, Tumor Marker <1.8 Normal 0.0-8.4 [facility] Comment on above: Result Comment: [employer] Electrochemiluminescence Immunoassay (ECLIA) . Values obtained with different assay methods or kits cannot be used interchangeably. Results cannot be interpreted as absolute evidence of the presence or absence of malignant disease. . This test is not interpretable in females. Performed By: #### A FP. #### [facility] [address] [place] [address] Dr. Alex Eddy HCG QUANT TUMOR MARKERon HCG QNT TUMOR MARKER <1 Normal 0-3 [facility] Comment on above: Result Comment: [employer] Electrochemiluminescence Immunoassay (ECLIA) . The [employer] [...] developed and its performance characteristics determined by [employer]. It has not been cleared or approved by the Food and Drug Administration for use as a tumor marker. . This test is not interpretable as a tumor marker in females. Performed By: #### H CGTMOR #### [facility] [address] [place] [address] Dr. Alex Eddy CREATININEon 11-06-2022 Creatinine [Mass/Vol] 0.60 mg/dL Critically low 0.70-1.30 [facility] Comment on above: Performed By: #### C SILVANA #### [facility] [address] [place] [address] Dr. Alex Eddy EGFR-AF YEMENI >60 Normal >=60 [facility] Comment on above: Performed By: #### C SILVANA #### [facility] [address] [place] [address] Dr. Alex Eddy EGFR-NON AF YEMENI >60 Normal >=60 [facility] Comment on above: Performed By: #### C SILVANA #### [facility] [address] [place] [address] CHEST W CONon [...] by: MIKE LYNCH Date: 2022-11-06 15:28 Normal [facility] LDHon 11-06-2022 LDH 158 U/L Normal 85-227 [facility] Comment on above: Performed By: #### L #### [facility] [address] [place] [address] [address] Alex Eddy US SCROTUMon 10-11-2022 US [...] by: CASSIDY SAMUEL Date: 2022-10-11 16:29 Normal [facility] US SCROTUMon 08-06-2022 US SCROTUM EXAMINATION: [...] by: CASSIDY SAMUEL Date: 2022-08-06 16:20 Normal [facility] Vital Signs Date Time Vital Sign Value Performing Clinician Facility 07-02-2024 16:09-0400 Body height 177.8 cm [facility] 07-02-2024 16:090400 Body mass index (BMI) [Ratio] 32.1 kg/m2 [facility] 07-02-2024 16:090400 Body weight 101.66 kg [facility] 07-02-2024 16:09-0400 Diastolic blood pressure 70 mm[Hg] [facility] 07-02-2024 16:09-0400 Heart rate 59 /min [facility] 07-02-2024 16:090400 Respiratory rate 12 /min [facility] 07-02-2024 16:09-0400 Systolic blood pressure 143 mm[Hg] [facility] 06-04-2024 09:21-0400 Diastolic blood pressure 78 mm[Hg] Radha Lue [facility] 06-04-2024 09:21-0400 Mean blood pressure 99 mm[Hg] Radha Lue [facility] 06-04-2024 09:21-0400 Systolic blood pressure 142 mm[Hg] Radha Lue [facility] 06-04-2024 09:03-0400 Blood Pressure Location Radha Lue [facility] 06-04-2024 09:03-0400 Heart rate 56 /min Radha Lue [facility] 06-04-2024 09:03-0400 Systolic blood pressure 146 mm[Hg] Radha Lue [facility] 05-20-2024 12:58-0400 Body mass index (BMI) [Ratio] 31.95 kg/m2 TUNG Hernandez MD Work Phone: [facility] 05-20-2024 12:58-0400 Body temperature 98.4 [degF] TUNG Hernandez MD Work Phone: [facility] 05-20-2024 12:58-0400 Body weight 101 kg TUNG Hernandez MD Work Phone: [facility] 05-20-2024 12:58-0400 Diastolic blood pressure 80 mm[Hg] TUNG Hernandez MD Work Phone: [facility] 05-20-2024 12:58-0400 Heart rate 59 /min TUNG Hernandez MD Work Phone: [facility] 05-20-2024 12:58-0400 Respiratory rate 18 /min TUNG Hernandez MD Work Phone: [facility] 05-20-2024 12:58-0400 SaO2% (BldA) [Mass fraction] 96 % TUNG Hernandez MD Work Phone: [facility] 05-20-2024 12:58-0400 Systolic blood pressure 147 mm[Hg] TUNG Hernandez MD Work Phone: [facility] 04-01-2024 10:04-0400 Body temperature 97 [degF] Donato Bishop MD Work Phone: [facility] 04-01-2024 10:04-0400 Diastolic blood pressure 67 mm[Hg] Donato Bishop MD Work Phone: [facility] 04-01-2024 10:04-0400 Heart rate 58 /min Donato Bishop MD Work Phone: [facility] 04-01-2024 10:04-0400 SaO2% (BldA) [Mass fraction] 96 % Donato Bishop MD Work Phone: [facility] 04-01-2024 10:04-0400 Systolic blood pressure 162 mm[Hg] Donato Bishop MD Work Phone: [facility] 02-12-2024 10:44-0400 Body height 177.8 cm [facility] 02-12-2024 10:44-0400 Body mass index (BMI) [Ratio] 32.8 kg/m2 [facility] 02-12-2024 10:44-0400 Body weight 103.92 kg [facility] 02-12-2024 10:44-0400 Diastolic blood pressure 71 mm[Hg] [facility] 02-12-2024 10:44-0400 Heart rate 53 /min [facility] 02-12-2024 10:44-0400 Respiratory rate 12 /min [facility] 02-12-2024 10:44-0400 Systolic blood pressure 124 mm[Hg] [facility] 11-28-2023 10:32-0500 Blood Pressure Location Radha Lue [facility] 11-28-2023 10:32-0500 Diastolic blood pressure 84 mm[Hg] Radha Lue [facility] 11-28-2023 10:32-0500 Heart rate 106 /min Radha Lue [facility] 11-28-2023 10:32-0500 Respiratory rate 16 /min Radha Lue [facility] 11-28-2023 10:32-0500 Systolic blood pressure 135 mm[Hg] Radha Lue [facility] 11-20-2023 13:16-0500 Body temperature 97.3 [degF] TUNG Hernandez MD Work Phone: [facility] 11-20-2023 13:16-0500 Body weight 103.9 kg TUNG Hernandez MD Work Phone: [facility] 11-20-2023 13:16-0500 Diastolic blood pressure 76 mm[Hg] TUNG Hernandez MD Work Phone: [facility] 11-20-2023 13:16-0500 Heart rate 59 /min TUNG Hernandez MD Work Phone: [facility] 11-20-2023 13:16-0500 Respiratory rate 16 /min TUNG Hernandez MD Work Phone: [facility] 11-20-2023 13:16-0500 SaO2% (BldA) [Mass fraction] 96 % TUNG Hernandez MD Work Phone: [facility] 11-20-2023 13:16-0500 Systolic blood pressure 145 mm[Hg] TUNG Hernandez MD Work Phone: [facility] 10-11-2023 11:00-0500 Body height 177.8 cm Bro Ball Other [employer] Other 10-11-2023 11:00-0500 Body mass index (BMI) [Ratio] 32.51 kg/m2 Bro Ball Other [employer] Other 10-11-2023 11:00-0500 Body weight 102.79 kg Bro Ball Other [employer] Other 10-11-2023 11:00-0500 Diastolic blood pressure 76 mm[Hg] Bro Ball Other [employer] Other 10-11-2023 11:00-0500 Respiratory rate 12 /min Bro Ball Other [facility] Other 10-11-2023 11:00-0500 Systolic blood pressure 167 mm[Hg] Bro Ball Other [employer] Other 08-15-2023 08:46-0400 Blood Pressure Location Radha Lue [facility] 08-15-2023 08:46-0400 Diastolic blood pressure 76 mm[Hg] Radha Lue [facility] 08-15-2023 08:46-0400 Heart rate 80 /min Radha Lue [facility] 08-15-2023 08:46-0400 Respiratory rate 16 /min Radha Lue [facility] 08-15-2023 08:46-0400 Systolic blood pressure 132 mm[Hg] Radha Lue [facility] 07-13-2023 10:00-0400 Body height 177.8 cm Bro Ball Other [facility] [employer] Other 07-13-2023 10:00-0400 Body mass index (BMI) [Ratio] 32.57 kg/m2 Bro Ball Other [facility] [employer] Other 07-13-2023 10:00-0400 Body weight 102.97 kg Bro Ball Other [facility] [employer] Other 07-13-2023 10:00-0400 Diastolic blood pressure 70 mm[Hg] Bro Ball Other [employer] Other 07-13-2023 10:00-0400 Respiratory rate 12 /min Bro Ball Other [employer] Other 07-13-2023 10:00-0400 Systolic blood pressure 143 mm[Hg] Bro Ball Other [employer] Other 05-15-2023 13:24-0400 Body temperature 97.5 [degF] TUNG Hernandez MD Work Phone: [facility] 05-15-2023 13:24-0400 Body weight 103.42 kg TUNG Hernandez MD Work Phone: [facility] 05-15-2023 13:24-0400 Diastolic blood pressure 77 mm[Hg] TUNG Hernandez MD Work Phone: [facility] 05-15-2023 13:24-0400 Heart rate 55 /min TUNG Hernandez MD Work Phone: [facility] 05-15-2023 13:24-0400 Respiratory rate 16 /min TUNG Hernandez MD Work Phone: [facility] 05-15-2023 13:24-0400 SaO2% (BldA) [Mass fraction] 96 % TUNG Hernandez MD Work Phone: [facility] 05-15-2023 13:24-0400 Systolic blood pressure 153 mm[Hg] TUNG Hernandez MD Work Phone: [facility] 04-11-2023 13:30-0400 Body height 177.8 cm Bro Ball Other [employer] Other 04-11-2023 13:30-0400 Body mass index (BMI) [Ratio] 32.88 kg/m2 Bro Ball Other [employer] Other 04-11-2023 13:30-0400 Body weight 103.97 kg Bro Ball Other [employer] Other 04-11-2023 13:30-0400 Diastolic blood pressure 72 mm[Hg] Bro Ball Other [employer] Other 04-11-2023 13:30-0400 Respiratory rate 12 /min Bro Ball Other [employer] Other 04-11-2023 13:30-0400 Systolic blood pressure 124 mm[Hg] Bro Ball Other [employer] Other 02-21-2023 15:15-0400 Body height 177.8 cm Bro Ball Other [employer] Other 02-21-2023 15:15-0400 Body mass index (BMI) [Ratio] 34.89 kg/m2 Bro Ball Other [employer] Other 02-21-2023 15:15-0400 Body weight 110.32 kg Bro Ball Other [employer] Other 02-21-2023 15:15-0400 Diastolic blood pressure 76 mm[Hg] Bro Ball Other [employer] Other 02-21-2023 15:15-0400 Respiratory rate 12 /min Bro Ball Other [employer] Other 02-21-2023 15:15-0400 Systolic blood pressure 165 mm[Hg] Bro Ball Other [employer] Other 02-14-2023 13:30-0400 Body height 177.8 cm Pacc 2 Work Phone: [facility] 02-14-2023 13:30-0400 Body temperature 98.1 [degF] Pacc 2 Work Phone: [facility] 02-14-2023 13:30-0400 Body weight 109.77 kg Pacc 2 Work Phone: [facility] 02-14-2023 13:30-0400 Diastolic blood pressure 81 mm[Hg] Pacc 2 Work Phone: [facility] 02-14-2023 13:30-0400 Heart rate 61 /min Pacc 2 Work Phone: [facility] 02-14-2023 13:30-0400 Respiratory rate 16 /min Pacc 2 Work Phone: [facility] 02-14-2023 13:30-0400 SaO2% (BldA) [Mass fraction] 96 % Pacc 2 Work Phone: [facility] 02-14-2023 13:30-0400 Systolic blood pressure 164 mm[Hg] Pacc 2 Work Phone: [facility] 02-05-2023 17:00-0400 Body height 177.8 cm Bro Ball Other [employer] Other 02-05-2023 17:00-0400 Body mass index (BMI) [Ratio] 34.89 kg/m2 Bro Ball Other [employer] Other 02-05-2023 17:00-0400 Body weight 110.32 kg Bro Ball Other [employer] Other 02-05-2023 17:00-0400 Diastolic blood pressure 79 mm[Hg] Bro Ball Other [employer] Other 02-05-2023 17:00-0400 Respiratory rate 12 /min Bro Ball Other [employer] Other 02-05-2023 17:00-0400 Systolic blood pressure 175 mm[Hg] Bro Ball Other [employer] Other 01-29-2023 11:00-0400 Body height 177.8 cm Bro Ball Other [employer] Other 01-29-2023 11:00-0400 Body mass index (BMI) [Ratio] 34.89 kg/m2 Bro Ball Other [employer] Other 01-29-2023 11:00-0400 Body weight 110.32 kg Bro Ball Other [employer] Other 01-29-2023 11:00-0400 Diastolic blood pressure 80 mm[Hg] Bro Ball Other [facility] [employer] Other 01-29-2023 11:00-0400 Respiratory rate 12 /min Bro Ball Other [facility] [employer] Other 01-29-2023 11:00-0400 Systolic blood pressure 166 mm[Hg] Bro Ball Other [facility] [employer] Other 01-24-2023 08:41-0400 Blood Pressure Location CIERRA YESSENIA [facility] 01-24-2023 08:41-0400 Diastolic blood pressure 69 mm[Hg] CIERRA YESSENIA [facility] 01-24-2023 08:41-0400 Heart rate 54 /min CIERRA YESSENIA [facility] 01-24-2023 08:41-0400 Systolic blood pressure 142 mm[Hg] CIERRA YESSENIA [facility] 01-11-2023 09:34-0400 Blood Pressure Location CIERRA YESSENIA [facility] 01-11-2023 09:34-0400 Diastolic blood pressure 82 mm[Hg] CIERRA YESSENIA [facility] 01-11-2023 09:34-0400 Heart rate 52 /min CIERRA YESSENIA [facility] 01-11-2023 09:34-0400 Systolic blood pressure 172 mm[Hg] CIERRA ZHU [facility] 12-28-2022 09:17-0400 Blood Pressure Location CIERRA ZHU [facility] 12-28-2022 09:17-0400 Diastolic blood pressure 66 mm[Hg] CIERRA ZHU [facility] 12-28-2022 09:17-0400 Heart rate 71 /min CIERRA ZHU [facility] 12-28-2022 09:17-0400 Systolic blood pressure 128 mm[Hg] CIERRA ZHU [facility] 12-26-2022 10:11-0400 Body height 177.8 cm Donato Bishop MD Work Phone: [facility] 12-26-2022 10:[id number] Body temperature 97.3 [degF] Donato Bishop MD Work Phone: [facility] 12-26-2022 10:11-0400 Body weight 110.22 kg Donato Bishop MD Work Phone: [facility] 12-26-2022 10:11-0400 Diastolic blood pressure 61 mm[Hg] Donato Bishop MD Work Phone: [facility] 12-26-2022 10:11-0400 Heart rate 57 /min Donato Bishop MD Work Phone: [facility] 12-26-2022 10:11-0400 Respiratory rate 19 /min Donato Bishop MD Work Phone: [facility] 12-26-2022 10:11-0400 SaO2% (BldA) [Mass fraction] 97 % Donato Bishop MD Work Phone: [facility] 12-26-2022 10:11-0400 Systolic blood pressure 179 mm[Hg] Donato Bishop MD Work Phone: [facility] 12-14-2022 09:24-0500 Blood Pressure Location CIERRA JOHNSTONRY [facility] 12-14-2022 09:24-0500 Diastolic blood pressure 71 mm[Hg] CIERRA YESSENIA [facility] 12-14-2022 09:24-0500 Systolic blood pressure 136 mm[Hg] CIERRA YESSENIA [facility] 12-12-2022 13:03-0500 Body temperature 96.4 [degF] TUNG Hernandez MD Work Phone: [facility] 12-12-2022 13:03-0500 Body weight 110.68 kg TUNG Hernandez MD Work Phone: [facility] 12-12-2022 13:03-0500 Diastolic blood pressure 74 mm[Hg] TUNG Hernandez MD Work Phone: [facility] 12-12-2022 13:03-0500 Heart rate 57 /min TUNG Hernandez MD Work Phone: [facility] 12-12-2022 13:03-0500 Respiratory rate 18 /min TUNG Hernandez MD Work Phone: [facility] 12-12-2022 13:03-0500 SaO2% (BldA) [Mass fraction] 98 % TUNG Hernandez MD Work Phone: [facility] 12-12-2022 13:03-0500 Systolic blood pressure 169 mm[Hg] TUNG Hernandez MD Work Phone: [facility] 11-30-2022 09:18-0500 Blood Pressure Location CIERRA YESSENIA [facility] 11-30-2022 09:18-0500 Diastolic blood pressure 58 mm[Hg] CIERRA YESSENIA [facility] 11-30-2022 09:18-0500 Heart rate 57 /min CIERRA YESSENIA [facility] 11-30-2022 09:18-0500 Systolic blood pressure 128 mm[Hg] CIERRA YESSENIA [facility] 11-23-2022 08:37-0500 Blood Pressure Location CIERRA YESSENIA [facility] 11-23-2022 08:37-0500 Diastolic blood pressure 68 mm[Hg] CIERRA YESSENIA [facility] 11-23-2022 08:37-0500 Heart rate 57 /min CIERRA YESSENIA [facility] 11-23-2022 08:37-0500 Systolic blood pressure 127 mm[Hg] CIERRA YESSENIA [facility] 11-09-2022 12:58-0500 Body temperature 96.69 [degF] TUNG Hernandez MD Work Phone: [facility] 11-09-2022 12:58-0500 Body weight 111.58 kg TUNG Hernandez MD Work Phone: [facility] 11-09-2022 12:58-0500 Diastolic blood pressure 75 mm[Hg] TUNG Hernandez MD Work Phone: [facility] 11-09-2022 12:58-0500 Heart rate 62 /min TUNG Hernandez MD Work Phone: [facility] 11-09-2022 12:58-0500 Respiratory rate 18 /min TUNG Hernandez MD Work Phone: [facility] 11-09-2022 12:58-0500 SaO2% (BldA) [Mass fraction] 98 % TUNG Hernandez MD Work Phone: [facility] 11-09-2022 12:58-0500 Systolic blood pressure 174 mm[Hg] TUNG Hernandez MD Work Phone: [facility] 11-08-2022 10:58-0500 Blood Pressure Location Radha Lue [facility] 11-08-2022 10:58-0500 Diastolic blood pressure 79 mm[Hg] Radha Lue [facility] 11-08-2022 10:58-0500 Heart rate 68 /min Radha Lue [facility] 11-08-2022 10:58-0500 Systolic blood pressure 139 mm[Hg] Radha Lue [facility] 10-04-2022 08:32-0500 Blood Pressure Location Radha Lue [facility] 10-04-2022 08:32-0500 Diastolic blood pressure 66 mm[Hg] Radha Lue [facility] 10-04-2022 08:32-0500 Heart rate 57 /min Radha Lue [facility] 10-04-2022 08:32-0500 Systolic blood pressure 151 mm[Hg] Radha Lue [facility] 07-13-2022 13:20-0400 Body temperature 96.69 [degF] TUNG Hernandez MD Work Phone: [facility] 07-13-2022 13:20-0400 Body weight 108.41 kg TUNG Hernandez MD Work Phone: [facility] 07-13-2022 13:20-0400 Diastolic blood pressure 81 mm[Hg] TUNG Hernandez MD Work Phone: [facility] 07-13-2022 13:20-0400 Heart rate 56 /min TUNG Hernandez MD Work Phone: [facility] 07-13-2022 13:20-0400 Respiratory rate 18 /min TUNG Hernandez MD Work Phone: [facility] 07-13-2022 13:20-0400 SaO2% (BldA) [Mass fraction] 96 % TUNG Hernandez MD Work Phone: [facility] 07-13-2022 13:20-0400 Systolic blood pressure 164 mm[Hg] TUNG Hernandez MD Work Phone: [facility] 03-28-2022 08:36-0400 Blood Pressure Location Sushant Freedman Jr. [facility] 03-28-2022 08:36-0400 Diastolic blood pressure 78 mm[Hg] Sushant Freedman Jr. [facility] 03-28-2022 08:36-0400 Heart rate 62 /min Sushant Freedman Jr. [facility] 03-28-2022 08:36-0400 Respiratory rate 16 /min Sushant Freedman Jr. [facility] 03-28-2022 08:36-0400 Systolic blood pressure 144 mm[Hg] Sushant Freedman Jr. [facility] Encounters Encounter Date Encounter Type Care Provider Facility Start: 12-10-2024 ambulatory Radha Whitten Facility:[facility] [place] Start: 07-02-2024 End: 07-02-2024 ambulatory [facility] Work Phone: Start: 07-02-2024 End: 07-02-2024 Patient encounter procedure [facility] Work Phone: Start: 07-01-2024 Non-patient / Non-visit [facility] Work Phone: Start: 06-28-2024 Non-patient / Non-visit [facility] Work Phone: Start: 06-27-2024 Non-patient / Non-visit [facility] Physician [facility] Work Phone: Start: 06-04-2024 End: 06-04-2024 ambulatory [facility] [place] [place] Start: 06-04-2024 End: 06-04-2024 Patient encounter procedure Radha Whitten [facility] Start: 05-20-2024 End: 05-20-2024 ambulatory BRO CHAVEZ Facility:[facility] Start: 05-20-2024 End: 05-20-2024 Patient encounter procedure Aaliyah Hernandez MD Work Phone: Radiation Oncology Comment on above: Malignant neoplasm o f prostate (HCC) (Primary Dx) Start: 05-13-2024 End: 05-13-2024 ambulatory BRO CHAVEZ Facility:[facility] Start: 05-13-2024 Non-patient / Non-visit [facility] Work Phone: Start: 04-09-2024 End: 04-09-2024 ambulatory [facility] Work Phone: Start: 04-09-2024 End: 04-09-2024 Patient encounter procedure [facility] Work Phone: Start: 04-01-2024 End: 04-01-2024 ambulatory David Pycraft RT(R) Radiology Ct Scan Comment on above: Radiology CT Start: 04-01-2024 End: 04-01-2024 Patient encounter procedure David Pycraft RT(R) Radiology Ct Scan Comment on above: S/P repair of ventra l hernia (Primary Dx) Start: 04-01-2024 End: 04-01-2024 Subsequent hospital visit by physician [facility] Radiology Ct Scan Comment on above: Ventral incisional h opalia [K43.2] Start: 03-24-2024 End: 03-24-2024 ambulatory DEBBIE JES Not Available Start: 03-11-2024 End: 03-11-2024 ambulatory VERONICA Spears HIGH Not Available Start: 02-12-2024 End: 02-12-2024 ambulatory [facility] Work Phone: Start: 02-12-2024 End: 02-12-2024 Patient encounter procedure [facility] Work Phone: Start: 01-30-2024 Non-patient / Non-visit [facility] Work Phone: Start: 12-12-2023 Non-patient / Non-visit [facility] Physician [facility] Work Phone: Start: 11-28-2023 End: 11-28-2023 ambulatory Radha Whitten Facility:[facility] Start: 11-28-2023 End: 11-28-2023 Patient encounter procedure Radha Whitten [facility] Start: 11-20-2023 End: 11-20-2023 ambulatory Aaliyah HERNANDEZ Facility:[facility] Start: 11-20-2023 End: 11-20-2023 Patient encounter procedure Aaliyah Raz Hernandez MD Work Phone: Radiation Oncology Comment on above: Malignant neoplasm o f prostate (HCC) (Primary Dx) Start: 11-13-2023 End: 11-13-2023 ambulatory BRO Roche KATHY Facility:[facility] Start: 10-16-2023 End: 10-16-2023 ambulatory Bro Chavez Other [facility] Other Start: 10-16-2023 Telephone encounter Bro Chavez [facility] Start: 10-11-2023 End: 10-11-2023 ambulatory Bro Chavez Other [facility] Other Start: 10-11-2023 Patient encounter procedure Bro Chavez [facility] Start: 10-11-2023 Telephone encounter Bro Chavez [facility] Start: 10-04-2023 End: 10-04-2023 ambulatory Bro Chavez Other [facility] Other Start: 10-04-2023 Telephone encounter Bro Chavez [facility] Start: 10-02-2023 End: 10-02-2023 ambulatory Bro Chavez Other [facility] Other Start: 10-02-2023 Telephone encounter Bro Chavez [facility] Start: 08-22-2023 End: 08-22-2023 ambulatory Bro Chavez Other [facility] Other Start: 08-22-2023 Telephone encounter Bro SANTOS [facility] Start: 08-21-2023 End: 08-21-2023 ambulatory Bro Chavez Other [facility] Other Start: 08-21-2023 Office outpatient vi sit 15 minutes Bro Kathy [facility] Start: 08-21-2023 Telephone encounter Bro Chavez [facility] Start: 08-15-2023 End: 08-15-2023 ambulatory [facility] Start: 08-15-2023 End: 08-15-2023 Patient encounter procedure Radha Whitten [facility] [place] Start: 07-24-2023 End: 07-24-2023 ambulatory Bro Chavez Other [facility] Other Start: 07-24-2023 Telephone encounter Bro Chavez [facility] Start: 07-16-2023 End: 07-16-2023 ambulatory Bro Kathy Other [facility] Other Start: 07-16-2023 Telephone encounter Bro Chavez [facility] Start: 07-13-2023 End: 07-13-2023 ambulatory Bro Kathy Other [facility] Other Start: 07-13-2023 Office outpatient vi sit 25 minutes Bro Ball [facility] Start: 07-13-2023 Telephone encounter Bro Chavez [facility] Start: 05-15-2023 End: 05-15-2023 Patient encounter procedure Aaliyah Hernandez MD Work Phone: Radiation Oncology Comment on above: Malignant neoplasm o f prostate (HCC) (Primary Dx) Start: 04-11-2023 End: 04-11-2023 ambulatory Bro Kathy Other [facility] Other Start: 04-11-2023 Office outpatient vi sit 25 minutes Bro Ball [facility] Start: 04-10-2023 End: 04-10-2023 ambulatory Bro Ball Other [facility] Other Start: 04-10-2023 Telephone encounter Bro Chavez [facility] Start: 03-15-2023 End: 03-15-2023 ambulatory Bro Ball Other [facility] Other Start: 03-15-2023 Initial nursing faci lity care/day 35 minutes Bro Chavez [facility] Start: 02-24-2023 End: 02-24-2023 ambulatory Bro Chavez Other [facility] Other Start: 02-24-2023 Telephone encounter Bro SANTOS [facility] Start: 02-23-2023 Evaluation and management of inpatient DONATO BISHOP Facility:[facility] Start: 02-21-2023 End: 02-22-[address] BRO CHAVEZ [facility] Other Start: 02-21-2023 Office outpatient vi sit 15 minutes Bro Chavez [facility] Start: 02-14-2023 End: 02-14-2023 Admission to establishment [facility] [place] [facility] Work Phone: [facility] Start: 02-14-2023 End: 02-14-2023 ambulatory [facility] [place] [facility] Work Phone: Pre Anesthesia Comment on above: Preop examination (P rimary Dx); Primary hypertension; Prostate cancer (HCC); Obesity, Class I, BMI 30-34.9; Obstructive sleep apnea syndrome Start: 02-14-2023 End: 02-14-2023 Preprocedural examination done [facility] [place] [facility] Work Phone: Pre Anesthesia Start: 02-06-2023 End: 02-06-2023 ambulatory Bro Chavez Other [facility] Other Start: 02-06-2023 Telephone encounter Bro SANTOS [facility] Start: 02-05-2023 End: 02-05-2023 ambulatory Bro Chavez Other [facility] Other Start: 02-05-2023 Office outpatient vi sit 15 minutes Bro Chavez [facility] Start: 01-29-2023 End: 01-29-2023 ambulatory Bro Chavez Other [facility] Other Start: 01-29-2023 Encounter for other preprocedural examination Bro Kathy [facility] Start: 01-29-2023 Office outpatient vi sit 25 minutes Bro Chavez [facility] Start: 01-24-2023 End: 01-24-2023 Patient encounter procedure CIERRA JOHNSTONRY [facility] Start: 01-11-2023 End: 01-11-2023 Patient encounter procedure CIERRADEONNA JOHNSTONRY [facility] Start: 12-28-2022 End: 12-28-2022 Patient encounter procedure CIERRA JOHNSTONRY [facility] Start: 12-27-2022 Orders Only Marya mcneil MD Work Phone: General Surgery Start: 12-26-2022 End: 12-26-2022 Patient encounter procedure Donato Bishop MD Work Phone: General Surgery Comment on above: Recurrent left ingui nal hernia (Primary Dx) Start: 12-14-2022 End: 12-14-2022 Patient encounter procedure CIERRA JOHNSTONRY [facility] Start: 12-12-2022 End: 12-12-2022 Patient encounter procedure Aaliyah Hernandez MD Work Phone: Radiation Oncology Comment on above: Malignant neoplasm o f prostate (HCC) (Primary Dx) Start: 12-06-2022 ambulatory BRO Melchor CHAVEZ Facilit y:[facility] Start: 12-06-2022 End: 12-06-2022 Subsequent hospital visit by physician [facility] 2 (I-Stat/3t) Work Phone: Radiology Comment on above: Left lower quadrant abdominal swelling, mass and lump [R19.04] Start: 12-04-2022 ambulatory VANDANA HERNANDEZ Facility:[facility] Start: 12-04-2022 End: 12-04-2022 Subsequent hospital visit by physician [facility] (I-Stat/1.5t) Radiology Comment on above: Prostate cancer (HCC ) [C61] Start: 11-30-2022 End: 11-30-2022 Patient encounter procedure CIERRA ZHU [facility] Start: 11-23-2022 End: 11-23-2022 Patient encounter procedure CIERRA ZHU [facility] Start: 11-16-2022 Patient encounter procedure [facility] Provider [facility] Department Start: 11-09-2022 End: 11-09-2022 Patient encounter procedure Aaliyah Hernandez MD Work Phone: Radiation Oncology Comment on above: Prostate cancer (HCC ) (Primary Dx); Abdominal mass, left lower quadrant Start: 11-08-2022 End: 11-08-2022 Patient encounter procedure Radha Whitten [facility] Start: 11-06-2022 End: 11-07-2022 ambulatory RADHA Torres Facility:[facility] Start: 10-11-2022 End: 10-12-2022 ambulatory RADHA WHITTEN . Facility:[facility] Start: 10-04-2022 End: 10-04-2022 Patient encounter procedure Radha Whitten [facility] Start: 08-05-2022 End: 08-06-[address] [...] procedure Sushant Freedman Jr. [facility] Procedures Date Procedure Procedure Detail Performing Clinician Start: 02-23-2023 Antibody screen DONATO AWAN Comment on above: Order Comment: Speci men Type: BLOOD SPECIMENOrdering Facility: [facility] Address: [address] [place] [address] Performed By: #### T SCR ####[place] BLO[facility] BANKCLIA [id number] [address] OF [facility] Start: 02-23-2023 Inguinal hernia (disorder) Radha Whitten Start: 02-23-2023 Pelvic floor structu re (body structure) Radha Whitten Start: 03-30-2022 Adult depression scr eening assessment TUNG Hernandez MD Work Phone: Start: 07-14-2021 History of external [...] Author Start: 03-01-2026 DIABETES SCREEN DIABETES SCREEN [facility] Start: 03-01-2026 Diabetes Screening Diabetes Screenserina stallworth [facility] Start: 04-07-2025 End: 04-07-2025 Patient encounter procedure 04/07/2025 10:00 AM EDT Office Visit General Surgery [facility] [address] [place], [place] [id number] Donato Bishop MD [address] [place], [place] [id number] Est Pt: 2 yr follow up, s/p open left anterior groin mesh removal (plug and patch) and TAR 03/[id number] General Surgery Comment on above: Est Pt: 2 yr follow up, s/p open left anterior groin mesh removal (plug and patch) and TAR [id number] Start: 12-14-2024 DIABETES SCREEN DIABETES SCREEN [facility] Start: 11-20-2024 End: 02-19-2025 Prostate specific Ag [Mass/volume] in Serum or Plasma PROSTATE-SPECIFIC ANTIGEN DIAGNOSTIC Lab Routine Malignant neoplasm of prostate (HCC) Expected: 11/20/2024, Expires: 02/19/2025 [facility] Work Phone: Comment on above: Expected: 11/20/2024 , Expires: 02/19/2025 Start: 11-19-2024 End: 11-19-2024 Patient encounter procedure 11/19/2024 11:15 AM EST Office Visit Radiation Oncology [address] [place] [address] Aaliyah Hernandez MD [address] [place] [address] [place] [address] 5 Month Follow Up Radiation Oncology Comment on above: 5 Month Follow Up Start: 11-11-2024 End: 11-11-2024 Patient encounter procedure 11/11/2024 11:00 AM EST Office Visit [facility] [address] [place] [address] lab [facility] Comment on above: lab Start: 06-15-2024 Influenza vaccination Influenza Vacc ine (#1) [facility] Start: 05-20-2024 End: 08-19-2024 Prostate specific Ag [Mass/volume] in Serum or Plasma PSA/PROSTSPECAG DIAG Lab Routine Malignant neoplasm of prostate (HCC) Expected: 05/20/2024, Expires: 08/19/2024 [facility] Work Phone: Comment on above: Expected: 05/20/2024 , Expires: 08/19/2024 Start: 05-20-2024 End: 05-20-2024 Patient encounter procedure 05/20/2024 1:15 PM EDT Office Visit Radiation Oncology [address] [place] [address] Aaliyah Hernandez MD [address] [place] [address] 5 Month Follow Up Radiation Oncology Comment on above: 5 Month Follow Up Start: 05-13-2024 End: 05-13-2024 Patient encounter procedure 05/13/2024 1:00 PM EDT Office Visit [facility] [address] [place] [address] lab followup [facility] Comment on above: lab followup Start: 11-15-2023 End: 01-15-2024 Prostate specific Ag [Mass/volume] in Serum or Plasma PSA/PROSTSPECAG DIAG Lab Routine Malignant neoplasm of prostate (HCC) Expected: 11/15/2023, Expires: 01/15/2024 [facility] Work Phone: Comment on above: Expected: 11/15/2023 , Expires: 01/15/2024 Start: 10-15-2023 Advance Directive Discussion Advance Directive Discussion [facility] Start: 10-15-2023 Behavioral Health Screening Behavioral Health Screening [facility] Start: 10-15-2023 Depression Assessment Depression Ass essment [facility] Start: 06-15-2023 Covid-19 Vaccine () Covid-19 Vaccine () [facility] Start: 06-15-2023 Covid-19 Vaccine () Covid-19 Vaccine () [facility] Start: 06-15-2023 Influenza vaccination [facility] Start: 05-11-2023 End: 07-11-2023 Prostate specific Ag [Mass/volume] in Serum or Plasma PSA/PROSTSPECAG DIAG Lab Routine Malignant neoplasm of prostate (HCC) Expected: 05/11/2023, Expires: 07/11/2023 [facility] Work Phone: Comment on above: Expected: 05/11/2023 , Expires: 07/11/2023 Start: 03-30-2023 Adult depression screening assessment DEPRESSION SCREENING [facility] Start: 02-14-2023 End: 04-16-2023 Basic metabolic 2000 panel - Serum or Plasma [facility] Work Phone: Comment on above: Expected: 02/14/2023 , Expires: 04/16/2023 Start: 01-10-2023 End: 03-12-2023 Prostate specific Ag [Mass/volume] in Serum or Plasma PSA/PROSTSPECAG DIAG Lab Routine Prostate cancer (HCC) Expected: 01/10/2023, Expires: 03/12/2023 [facility] Work Phone: Comment on above: Expected: 01/10/2023 , Expires: 03/12/2023 Start: 11-12-2022 End: 01-12-2023 Prostate specific Ag [Mass/volume] in Serum or Plasma PSA/PROSTSPECAG DIAG Lab Routine Prostate cancer (HCC) Expected: 11/12/2022, Expires: 01/12/2023 [facility] Work Phone: Comment on above: Expected: 11/12/2022 , Expires: 01/12/2023 Start: 10-15-2022 ADVANCE DIRECTIVE DISCUSSION ADVANCE DIRECTIVE DISCUSSION [facility] Start: 10-15-2022 DEPRESSION ASSESSMENT DEPRESSION ASS ESSMENT [facility] Start: 06-30-2022 End: 08-30-2022 Prostate specific Ag [Mass/volume] in Serum or Plasma PSA/PROSTSPECAG DIAG Lab Routine Prostate cancer (HCC) Expected: 06/30/2022 (Approximate), Expires: 08/30/2022 [facility] Work Phone: Comment on above: Expected: 06/30/2022 (Approximate), Expires: 08/30/2022 Start: 06-15-2022 Influenza vaccination [facility] Start: 10-15-2021 ADVANCE DIRECTIVE DISCUSSION ADVANCE DIRECTIVE DISCUSSION [facility] Start: 10-15-2021 DEPRESSION ASSESSMENT DEPRESSION ASS ESSMENT [facility] Start: 08-29-2021 COVID-19 VACCINE (4 - Booster for Pfizer series) COVID-19 VACCINE (4 - Booster for Pfizer series) [facility] Start: 08-29-2021 COVID-19 VACCINE (4 - Pfizer series) COVID-19 VACCINE (4 - Pfizer series) [facility] Start: 05-23-2018 Pneumococcal Vaccine : 65+ (2 of 2 - PCV) Pneumococcal Vaccine: 65+ (2 of 2 - PCV) [facility] Start: 07-24-2014 Urine microalbumin profile DTaP,Tdap,Td Vaccine (1 - Tdap) [facility] Start: 2012 PNEUMOCOCCAL: 65+ (1 - PCV) PNEUMOCOCCAL: 65+ (1 - PCV) [facility] Start: 2007 RSV Vaccine (1 - 1-d ose 60+ series) RSV Vaccine (1 - 1-dose 60+ series) [facility] Start: 1997 SHINGRIX VACCINE (1 of 2) SHINGRIX VACCINE (1 of 2) [facility] Start: 1992 COLOGUARD (FIT-DNA) COLOGUARD (FIT-D NA) [facility] Start: 1992 Colonoscopy COLONOSCOPY [facility] Start: 1992 COLORECTAL CANCER SCREENING COLORECTAL CANCER SCREENING [facility] Start: [address] COLONOGRAPHY [facility] Start: 1992 FECAL OCCULT BLOOD FECAL OCCULT BLOO D [facility] Start: 1992 SIGMOIDOSCOPY SIGMOIDOSCOPY [facility] Start: 1982 LIPID SCREEN LIPID SCREEN [facility] Start: 1966 SHINGRIX VACCINE (1 of 2) SHINGRIX VACCINE (1 of 2) [facility] Start: 1966 Urine microalbumin profile [facility] Start: 1965 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 ANNUAL PCP TEAM CHRONIC DISEASE VISIT [facility] Start: 1965 Anxiety Screening Anxiety Screening [facility] Start: 1965 BP CONTROLLED (<130/80) BP CONTROLLE D (<130/80) [facility] Start: 1965 Depression Screening Depression Scre ening [facility] Start: 1965 HEPATITIS C SCREENING HEPATITIS C [facility] Start: 1965 Hepatitis C screening Hepatitis C [facility] Start: 1953 PNEUMOCOCCAL: 65+ (1 - PCV) PNEUMOCOCCAL: 65+ (1 - PCV) [facility] Start: 1952 COVID-19 VACCINE (#1) COVID-19 VACCI NE (#1) [facility] Start: 1947 COVID-19 VACCINE (#1) COVID-19 VACCI NE (#1) [facility] CT Abdomen and Pelvi s WO contrast CT ABD/PEL WO IVCON Radiology Routine Ventral incisional hernia 04/01/2024 1:54 PM EDT [facility] Work Phone: End: 12-09-2023 Mri pelvis w/o & w/contrast material MRI PELVIS WO/W IVCON Radiology Routine Prostate cancer (HCC) Abdominal mass, left lower quadrant 1 Occurrences starting 11/09/2022 until 12/09/2023 [facility] Work Phone: Comment on above: 1 Occurrences starti ng 11/09/2022 until 12/09/2023 End: 12-04-2022 Mri pelvis w/o & w/contrast material [facility] Work Phone: Comment on above: 1 Occurrences starti ng 12/04/2022 until 12/04/[facility] Immunizations Immunization Date Immunization Notes Care Provider Marissa baez 04-02-2024 COVID-19 Comirnaty (Pfizer) Tri-Sucrose 12+ [facility] 04-02-2024 Pneumococcal Conjuga te Vaccine, 20 valent [facility] 07-25-2023 zoster vaccine recombinant Radha Whitten [facility] 07-13-2023 influenza virus vaccine, unspecified formulation [facility] 07-13-2023 influenza, high dose seasonal, preservative-free Bro Chavez Other [facility] Other 05-07-2023 zoster vaccine recombinant Bro Chavez Other [facility] 10-18-2022 SARS-CoV-2 (COVID-19 ) [id number] Radha Whitten [facility] 07-05-2022 influenza virus vaccine, split virus (incl. purified surface antigen) Bro Chavez Other [facility] Other 07-05-2022 influenza virus vaccine, unspecified formulation Radha Whitten [facility] 01-30-2022 SARS-CoV-2 mRNA (jtbyfcswjvm-jkif-islrw se) vaccine Radha Whitten [facility] 07-04-2021 influenza virus vaccine, split virus (incl. purified surface antigen) Bro Kathy Other [facility] Other 07-04-2021 influenza virus vaccine, unspecified formulation [facility] 07-04-2021 SARS-CoV-2 (COVID-19 ) mRNA BNT-162b2 vax Radha Whitten [facility] Comment on above: Result Comment: 2022: [id number] 06-15-2021 SARS-CoV-2 (COVID-19 ) Ad26 vaccine, recombinant Sushant Freedman Jr. [facility] 12-13-2020 SARS-CoV-2 (COVID-19 ) Ad26 vaccine, recombinant Sushant Freedman Jr. [facility] 12-07-2020 SARS-CoV-2 (COVID-19 ) mRNA BNT-162b2 vax Radha Lue [facility] Comment on above: Result Comment: 2022: TPV70 11-16-2020 SARS-CoV-2 (COVID-19 ) mRNA BNT-162b2 vax Radha Lue [facility] Comment on above: Result Comment: 2022: TPV70 11-15-2020 SARS-CoV-2 (COVID-19 ) Ad26 vaccine, recombinant Sushant Freedman Jr. [facility] 07-05-2020 influenza virus vaccine, split virus (incl. purified surface antigen) Bro Chavez Other [facility] Other 07-05-2020 influenza virus vaccine, unspecified formulation [facility] 07-29-2019 influenza virus vaccine, split virus (incl. purified surface antigen) Bro Chavez Other [facility] [employer] Other 07-29-2019 influenza virus vaccine, unspecified formulation [facility] 07-30-2018 influenza virus vaccine, split virus (incl. purified surface antigen) Bro Chavez Other [facility] [employer] Other 07-30-2018 influenza virus vaccine, unspecified formulation Radha Lumelchor [facility] 07-25-2017 influenza virus vaccine, split virus (incl. purified surface antigen) Bro Chavez Other [facility] Other 07-25-2017 influenza virus vaccine, unspecified formulation Radha Whitten [facility] 05-23-2017 pneumococcal polysaccharide vaccine, 23 valent Radha Lue [facility] 09-04-2016 influenza virus vaccine, split virus (incl. purified surface antigen) Bro Chavez Other [facility] Other 09-04-2016 influenza virus vaccine, unspecified formulation [facility] 09-04-2016 pneumococcal conjuga te vaccine, 13 valent Bro Chavez Other [facility] 08-12-2015 influenza virus vaccine, split virus (incl. purified surface antigen) Bro Chavez Other [facility] [employer] Other 08-12-2015 influenza virus vaccine, unspecified formulation Radha Whitten [facility] 02-12-2015 pneumococcal polysaccharide vaccine, 23 valent Bro Kathy Other [facility] 07-23-2014 tetanus and diphther ia toxoids, adsorbed, preservative free, for adult use (5 Lf of tetanus toxoid and 2 Lf of diphtheria toxoid) Bro Chavez Other [facility] 09-01-2013 tetanus and diphther ia toxoids, adsorbed, preservative free, for adult use (5 Lf of tetanus toxoid and 2 Lf of diphtheria toxoid) Bro Chavez Other [facility] Payers Date Payer Category Payer Unknown MMO MMO MEDICARE SUPPLEMENT [id number] 2019-Present [phone] [address] [place] [address] Indemnity [id number] 2019 Unknown MMO MMO MEDICARE SUPPLEMENT [id number] 2019-Present [phone] [address] [place] [address] Indemnity [id number] 2012 Medicare MEDICARE MEDICAR E A AND B [id number] 2012-Present [phone] [address] [address] [place] [address] Medicare [id number] 2012 Medicare MEDICARE MEDICAR E A AND B [id number] 2012-Present [phone] [address] [address] [place] [address] Medicare [id number] 1959 Medicare [id number] 1959 Self-pay [id number] 1959 Unknown [id number] 1947 Unknown [id number] 1947 Unknown [id number] [id number] 1947 Unknown [id number] [id number] 1947 Unknown [id number] 1947 Unknown [id number] [id number] 1947 Unknown [id number] [id number] 1947 Unknown [id number] [id number] 1947 Unknown [id number] [id number] 1947 Unknown [id number] [id number] 1947 Unknown [id number] [id number] 1947 Unknown [id number] [id number]. Social History Date Type Detail Facility Start: 03-28-2022 End: 11-28-2023 Tobacco smoking status Never smoked tobacco (finding) [facility] Start: 02-14-2023 End: 05-15-2023 Sex Assigned At Male [facility] Start: 05-10-2021 End: 12-26-2022 Tobacco use and exposure Smokeless tobacco non-user [facility] Start: 03-30-2022 End: 05-20-2024 Alcohol intake Ex-drinker (finding) [facility] Start: 1945 Sex Assigned At Not on file [facility] Start: 03-20-2022 End: 07-13-2022 Exposure to SARS-CoV-2 (event) Not sure [facility] Tobacco smoking status Never [facility] Start: 02-14-2023 End: 05-15-2023 History of Social function [facility] Start: 1945 Sex Assigned At Male [facility] Medical Equipment Procedure Code Equipment Code Equipment Origin al Text Equipment Identifier Dates Mesh Prolene Squ are Flat [id number] Surgical Knit Nonabsorbable Nonreactive - [id number] Start: 02-23-2023 Functional Status Date Assessment Result Facility 06-04-2024 Functional Status N/A [facility] 11-28-2023 Functional Status N/A [facility] 08-15-2023 Functional Status N/A [facility] 01-24-2023 Functional Status N/A [facility] 01-11-2023 Functional Status N/A [facility] 12-28-2022 Functional Status N/A [facility] 12-14-2022 Functional Status N/A [facility] 11-30-2022 Functional Status N/A [facility] 11-23-2022 Functional Status N/A [facility] 11-08-2022 Functional Status N/A [facility] 10-04-2022 Functional Status N/A [facility] 03-28-2022 Functional Status N/A [facility] Clinical Notes 03-28-2022 to 06-04-2024 Aaliyah Hernandez MD - 05/20/2024 1:15 PM David Colon RT(Massiel) - 04/01/2024 11:36 AM Kristy Fabian OCCA - 04/01/2024 10:03 AM Kristy Fabian OCCA - 04/01/2024 10:03 AM EDT Note [...] including vitamins, herbs, eye drops, creams, and lhwj-azr-oibsddt medicines. Any problems you or family members [...] provider tells you to take them. Taking cbud-jns-bhzekch medicines, vitamins, herbs, and supplements. Surgery safety [...] provider. Document Revised: 05/06/2021 Document Reviewed: 05/06/2021 [employer] Patient Education 2022 [employer]. Follow Up Care 11/28/2023 11:10:53 With:Fish WHARTON, ALANNA Hahn, URO Address: When: Unknown [facility] Note Patient Education Urology Artificial Urinary [...] including vitamins, herbs, eye drops, creams, and ctyn-ejw-ethhozv medicines. ? Any problems you or family [...] tells you to take them. ? Taking nrzd-avd-ghibdil medicines, vitamins, herbs, and supplements. Surgery safety [...] weeks after the (more content not included)... [facility] 05-20-2024 History of Presen t illness [...] Androgen deprivation: Harvinder 10/21/2020 x1 PHYSICAL EXAM: 05/20/24 1258 BP: [...] by: Aaliyah Hernandez MD cc: Bro Chavez ([facility]) [address] [place] [address] Dr. Whitten documented in this encounter [facility] 05-20-2024 Note HNO ID: [id number] Author: Aaliyah HERNANDEZ MD Service: ? Author Type: Physician Type: Progress Notes Filed: 05/23/2024 10:46 Note Text: Radiation Oncology - Follow Up Note PATIENT NAME: Yoni Raimrez PATIENT DIAGNOSIS: Prostate adenocarcinoma, initial PSA 7.4, [...] once daily. REVIEW OF SYSTEMS: D/N = 4/-2 Hematuria: none Dysuria: none (more content not included)... [facility] 04-01-2024 Note HNO ID: [id number] Author: DAVID PORTILLO RT(R) Service: ? Author [...] PATIENT PRESENTS WITH AN IMPLANTABLE OR ATTACHED RAILROAD WORKER: No RADIOLOGY DEPARTMENT: CT; Exam(s) Completed: Abdomen/Pelvis PERIPHERAL IV DATA: Not applicable SIGNED BY: RT Haylee(R) April 01, 2024 11:36 AM [facility] 04-01-2024 History of Presen t illness Narrative [...] PATIENT PRESENTS WITH AN IMPLANTABLE OR ATTACHED RAILROAD WORKER: No RADIOLOGY DEPARTMENT: CT; Exam(s) Completed: Abdomen/Pelvis PERIPHERAL IV DATA: Not applicable SIGNED BY: RT Haylee(R) April 01, 2024 11:36 AM documented in this encounter [facility] 04-01-2024 Nurse Note What is the reason [...] Bowels: regular Wound: Temperature: No Drains: No [facility] 04-01-2024 Nurse Note What is the reason [...] No Drains: No documented in this encounter [facility] 04-01-2024 History of Presen t illness Narrative [facility] - Follow Up Visit [...] left. Donato Bishop MD 04/01/24, 10:35 AM [facility] Medical Decision Making: Problems: Low: Stable chronic illness Data: Unique test result(s) reviewed: 1 Independent interpretation of test from other physician/QHCP Risk: Low: Low risk from testing/treatment Medical Decision Making Level: 3 - Low documented in this encounter [facility] 04-01-2024 Note HNO ID: [id number] Author: DONATO BISHOP MD Service: ? Author Type: Physician Type: Progress Notes Filed: 04/07/2024 16:41 Note Text: [facility] - Follow Up Visit [...] left. Donato Bishop MD 04/01/24, 10:35 AM [facility] Medical Decision Making: Problems: Low: Stable chronic illness Data: Unique test result(s) reviewed: 1 Independent interpretation of test from other physician/QHCP Risk: Low: Low risk from testing/treatment Medical Decision Making Level: 3 - Low [facility] 11-28-2023 Hospital Discharg e instructions Patient Education [...] provider. Document Revised: 02/09/2022 Document Reviewed: 02/09/2022 [employer] Patient Education 2022 [employer] Follow Up Care 08/15/2023 09:39:21 With:Fish WHARTON, Radha Tejada, EVARISTOL, URO Address: [address] [place] [address] [phone] When: Unknown Comments:6 months [facility] 11-20-2023 Nurse Note Patient c/o continued urinary incontinence. Started Gemtesa approximately 3 months ago with little improvement. documented in this encounter [facility] 11-20-2023 Note HNO ID: [id number] Author: Aaliyah HERNANDEZ MD Service: ? Author [...] very well subsequently. Denies of any problems. 2/28/23:Patient here for further follow-up regarding palpable lump [...] SYSTEMS: D/N = (more content not included)... [facility] 11-20-2023 History of Presen t illness Narrative [...] Androgen deprivation: Eligard 10/21/2020 x1 PHYSICAL EXAM: 11/20/23 1316 BP: [...] Aaliyah Hernandez MD cc: Bro Chavez ([facility]) [address] [place] [address] Dr. Whitten documented in this encounter [facility] 10-11-2023 Evaluation note Encounter Date Diagnosis Assessment [...] use, the patient reduces the risk for AL, CVA, HTN, cardiac dysrhythmias and sudden cardiac [...] from previous results Blood loss from surgery? [facility] Other 12-19-2023 Evaluation note* Encounter Date Diagnosis Assessment Notes Treatment Notes Treatment Clinical Notes Sep, Anemia (ICD-10 - D64.9) [facility] Other 11-08-2023 Evaluation note* Encounter Date Diagnosis Assessment Notes Treatment Notes Treatment Clinical Notes Aug, COVID-19 (ICD-10 - U07.1) [facility] Other 11-07-2023 Evaluation note* Encounter Date Diagnosis [...] continue exercise to achieve/maintain a normal BMI. [facility] Other 11-01-2023 Hospital Discharge instructions Patient Education [...] provider. Document Revised: 02/09/2022 Document Reviewed: 02/09/2022 [employer] Patient Education 2022 [employer]. Follow Up Care 06/01/2023 13:07:42 With:Fish WHARTON, ALANNA Hahn, URO Address: When:Within 3 Month(s) [facility] 09-29-2023 Evaluation note* Encounter Date Diagnosis Assessment [...] use, the patient reduces the risk for AL, CVA, HTN, cardiac dysrhythmias and sudden cardiac [...] High risk medication use (ICD-10 - Z79.899) [facility] Other 08-01-2023 History of Present illness Narrative* [...] Androgen deprivation: Harvinder 10/21/2020 x1 PHYSICAL EXAM: 05/15/23 1324 BP: [...] ASSESSMENT/PLAN: Prostate adenocarcinoma, initial PSA 7.4, biopsy Martin score 4 + 3 = 7 (grade [...] surgery. Signed by: Aaliyah Hernandez MD cc: rBo Chavez ([facility]) [address] [place] [address] Dr. Whitten [facility]* Encounter Date Diagnosis Assessment Notes [...] use, the patient reduces the risk for AL, CVA, HTN, cardiac dysrhythmias and sudden cardiac [...] s/p ADT No ongoing treatment Serial PSA [facility] Other 06-01-2023 Evaluation note* Encounter Date Diagnosis [...] use, the patient reduces the risk for AL, CVA, HTN, cardiac dysrhythmias and sudden cardiac [...] repair. Ventral hernia repair No complications noted. [facility] Other 05-16-2023 NoteHNO ID: [id number] Author: Michelle Bryant MD Service: General Surgery [...] MD For team paging 6AM-6PM during weekdays: [phone] for Sebastián Team For team paging after 6PM or on weekend / holidays: [phone] for General Surgery Subjective: Acute events overnight: [...] input(s): APTT, PT, INR in the last 95708 hours. Intake and Output: Date 02/26/23 07 - 02/27/23 0659 02/27/23 07 - 02/28/23 0659 Shift 9690-6768 7541-5946 4531-2110 24 Hour Total 5974-8846 7941-4931 3161-7785 24 Hour Total INTAKE PO 360 360 720 PO 360 360 720 IV 300 300 Volume (mL) (magnesium sulfate iv piggyback in sterile water 2 g 50 mL) 50 50 Volume (mL) (potassium phosphate 30 mmol in NaCl 0.9% 250 mL) 250 250 Shift Total 180 845 6097 OUTPUT Urine 1000 1900 2900 Urine Incontinence/Not [...] (ROXICODONE) 2.5-5 mg ORAL q 4 H [facility] HospitalGmqmadom53-02-8739 NoteHNO ID: [id number] Author: Perez Salvador MD Service: General Surgery [...] Agrawal MD General Surgery, PGY-1 Personal Pager/Phone: [phone] Service Pager: [phone] ( Green) For weekday evenings (6PM-6AM) or weekends/holidays, please page [phone] ([facility] Gen Surg weekends/nights)[facility] ChildrenAvvrjlns19-45-5415 History of Past illness Narrative* Problem Noted Date Diagnosed Date Resolved Date Hypophosphataemia 02/26/2023 03/02/2023 Hypokalemia 02/26/2023 03/02/2023 Post-op pain 02/26/2023 03/02/2023 Inguinal hernia of left side without obstruction or gangrene 02/24/2023 03/02/2023 documented as of this encounter (statuses as of 05/18/2023) [facility]05-15[facility]2023 History of Past illness Narrative* Problem Noted Date Diagnosed Date Resolved Date Hypophosphataemia 02/26/2023 03/02/2023 Hypokalemia 02/26/2023 03/02/2023 Post-op pain 02/26/2023 03/02/2023 Inguinal hernia of left side without obstruction or gangrene 02/24/2023 03/02/2023 documented as of this encounter (statuses as of 11/28/2023) [facility]05-15-2023 NoteHNO ID: [id number] Author: Carolina Lorenz MD Service: General Surgery [...] MD For team paging 6AM-6PM during weekdays: [phone] for [facility] Team For team paging after 6PM or on weekend / holidays: [phone] for General Surgery Subjective: Acute events overnight: [...] input(s): APTT, PT, INR in the last 55072 hours. Intake and Output: Date 02/25/23699 - 02/26/2365802/26/23 07 - 02/27/23 0659 Shift 6732-3738 3349-8408 3455-9408 24 Hour Total 9361-1419 5433-6233 4367-5129 24 Hour Total INTAKE PO 340 120 460 PO 340 120 460 IV 559 559 Volume (mL) (lactated ringers iv infusion) 559 559 Shift Total 340 424 955 0488 OUTPUT Urine 2399 617 6316 2750 Output ( External Collection Device 02/25/23 0000) 4244 012 6890 2750 Tubes 40 55 20 115 Drain/Tube Output (Drain/Tube 02/23/23 2120 Chip Spivey Right Upper Quadrant Abdomen Drain #1) 20 30 0 50 Drain/Tube Output (Drain/Tube 02/23/232 Chip Spivye Left Upper Quadrant Abdomen) 20 25 20 65 # of BMs Number of BMs 0 x 0 x 0 x Shift Total 3239 689 7167 2865 Weight (kg) Current Medications: Current Facility-Administered [...] NaCl 0.9% 250 mL 30 mmol INTRAVENOUS ONCEPappas Rehabilitation Hospital For ChildrenBupdacrs16-16-4120 NoteHNO ID: [id number] Author: Chris Avendano MD Service: General Surgery [...] Resident For team paging 6AM-6PM during weekdays: [phone] for [facility] Team For team paging after 6PM or on weekend / holidays: [phone] for General Surgery Subjective: Acute events overnight: [...] input(s): APTT, PT, INR in the last 56720 hours. Intake and Output: Date 02/24/23699 - 02/25/23 0659 02/25/23 07 - 02/26/23 0659 Shift 2835-5267 3308-2000 2014-6748 24 Hour Total 0032-1686 9375-7438 8201-7063 24 Hour Total INTAKE PO 240 450 250 940 PO 240 450 250 940 IV 1938 208 1281 Volume (mL) (ceFAZolin iv piggyback 2 g in D5W (iso-osmotic) 100 mL (ANCEF)) 100 100 Volume (mL) (lactated ringers iv infusion) 6967 870 1804 Shift Total 240 2017 79 3053 OUTPUT Urine 893 136 6960 3025 Void (ml) 250 250 Output ([REMOVED] Indwelling Urinary Catheter 02/23/23 232 Assessment Spear 02/25/23 001) 698 466 4278 2575 Output ( External Collection Device 02/25/23 [...] x 1 x 1 x Shift Total 272 246 1967 3265 Weight (kg) Current Medications: Current Facility-Administered [...] mg/mL) - 200 mL PERIPHERAL NERVE CATHETER CONTINUOUSPappas Rehabilitation Hospital For ChildrenTvzxqbmb51-06-6540 NoteHNO ID: [id number] Author: Chris Avendano MD Service: General Surgery [...] Lorenz MD, PGY-1 General Surgery Resident Pager [phone] For after hours issues, please call the on-call pager For team paging 6AM-6PM during weekdays: [phone] for [facility] Team For team paging after 6PM or on weekend / holidays: [phone] for General Surgery Subjective: Acute events overnight: [...] input(s): APTT, PT, INR in the last 07838 hours. Intake and Output: Date 02/23/23699 - 02/24/2365802/24/23699 - 02/25/23 0659 Shift 9460-3147 5089-2324 0065-7721 24 Hour Total 3252-4307 4481-5642 0087-3209 24 Hour Total INTAKE PO 60 60 [...] 1150 Tubes 125 125 Drain/Tube Output (Drain/Tube 02/23/232119 Chip Spivey Right Upper Quadrant Abdomen Drain #1) 90 90 Drain/Tube Output (Drain/Tube 02/23/232121 Chip Spivey Left Upper Quadrant Abdomen) 35 35 # of BMs Number of BMs 0 x 0 x Blood 100 100 Estimated Blood loss 100 100 Shift Total 750 1275 2024 Weight (kg) Current Medications: Current Facility-Administered Medications [...] mL (ANCEF) 2 g INTRAVENOUS q 8 [facility]05-13-2023 NoteHNO ID: [id number] Author: Perez Salvador MD Service: General Surgery Author Type: Resident Type: Plan of Care Filed: 02/24/2023 4:59 AM Note Text: GENERAL SURGERY POST-OPERATIVE CHECK NOTE PATIENT NAME: Yoni Ramirez AGE: [age] year old : 1945 SEX: male ASSESSMENT AND PLAN: 77 year old male POD0 s/p Attempted tnqc-ohd-qlvit repair of L femoral hernia, Excision of [...] Agrawal MD General Surgery, PGY-1 Personal Pager/Phone: [phone] Service Pager: [phone] (LAITH Lowery) For weekday evenings (6PM-6AM) or weekends/holidays, please page [phone] ([facility] Gen Surg weekends/nights) SUBJECTIVE: Patient feels [...] and intact without strike-through LINES/TUBES: FERNANDO X2 [facility]05-13-2023 NoteHNO ID: [id number] Author: Tristan Solorio MD Service: Anesthesiology Author Type: Anesthesiologist Type: Anesthesia Procedure Notes Filed: 02/23/2023 11:18 PM Note Text: ANESTHESIOLOGY PROCEDURE NOTE Peripheral Nerve Block General Information Procedure Start Time/Medication Administration: 02/23/2023 10:41 PM Procedure End time: 02/23/2023 11:07 PM Patient location during procedure: OR Timeout Performed Pre-procedure: timeout performed Consent Obtained: Yes Patient identity confirmed: care steamfitter, 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 Reason for block: [...] February 23, 2023 TIME: 11:15 PM CSN: [id number] NoteHNO ID: [id number] Author: Tristan Solorio MD Service: Anesthesiology Author Type: Anesthesiologist Type: Anesthesia Procedure Notes Filed: 02/23/2023 11:15 PM Note Text: ANESTHESIOLOGY PROCEDURE NOTE Peripheral Nerve Block General Information Procedure Start Time/Medication Administration: 02/23/2023 10:41 PM Procedure End time: 02/23/2023 11:07 PM Patient location during procedure: OR Timeout Performed Pre-procedure: timeout performed Consent Obtained: Yes Patient identity confirmed: care steamfitter, 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 Reason for block: [...] February 23, 2023 TIME: 11:13 PM CSN: [id number] NoteHNO ID: [id number] Author: Stefanie Hitchcock APRN.INFANTRY WEAPONS OFFICER Service: Anesthesiology Author Type: Nurse Copy And Print Associate Type: Anesthesia Procedure Notes Filed: 02/23/2023 5:16 PM Note Text: ANESTHESIOLOGY PROCEDURE NOTE PIV General Information Procedure Start Time/Medication Administration: 02/23/2023 5:05 PM Patient Location: OR Staffing INFANTRY WEAPONS OFFICER: Stefanie Hitchcock APRN.INFANTRY WEAPONS OFFICER Performed by: INFANTRY WEAPONS OFFICER Preparation Sterility Preparation: hand hygiene performed prior to procedure, surgical cap used, mask used Site Prep: chlorhexidine Procedure Details Indication: need for IV access Needle Size/Type: 18 gauge angiocath Orientation: Left Location: Hand Imaging Guidance Used: No SIGNATURE: Stefanie Hitchcock APRN.CRNA PATIENT NAME: Yoni Ramirez DATE: February 23, 2023 TIME: 5:15 PM CSN: [id number] NoteHNO ID: [id number] Author: Stefanie Hitchcock APRN.INFANTRY WEAPONS OFFICER Service: Anesthesiology Author Type: Nurse Copy And Print Associate Type: Anesthesia Procedure Notes Filed: 02/23/2023 3:13 PM Note Text: ANESTHESIOLOGY PROCEDURE NOTE Airway General Information Procedure Start Time/Medication Administration: 02/23/2023 2:44 PM Patient location during procedure: OR Timeout Performed Pre-procedure: timeout performed Consent Obtained: Yes Patient identity confirmed: arm band, care steamfitter and patient Staffing Anesthesiologist: Faisal Kim MD INFANTRY WEAPONS OFFICER: Stefanie Hitchcock APRN.INFANTRY WEAPONS OFFICER Performed by: LARS Indications and Patient Condition [...] 1 Airway not difficult SIGNATURE: Stefanie Hitchcock APRN.INFANTRY WEAPONS OFFICER PATIENT NAME: Yoni Ramirez DATE: February 23, 2023 TIME: 3:11 PM CSN: [id number] Evaluation note* Encounter Date Diagnosis Assessment Notes Treatment Notes Treatment Clinical Notes February, Acute pain of right knee (ICD-10 - M25.561) Ice, elevate and rest. No obvious s/s septic joint or inflammatory arthritis Check ESR, CRP and CBC and if normal, can't see any reason he can't proceed w/ surgery this February, Swelling of right knee joint (ICD-10 - M25.461) [facility] Other 05-03-2023 History and physical note* Nichole Humphrey APRN.MORTGAGE LOAN COORDINATOR - 02/14/2023 1:40 PM EDT HISTORY AND [...] a history of open left inguinal herniain 2015. He started to notice recurrent bulging in [...] fevers. Neuro: No history of TIA's, stroke, RACEHORSE TRAINER tumor, impaired sensorium, hemiplegia, paraplegia or quadraplegia. [...] Ramirez DATE: 02/14/2023 TIME: [facility] Instructions* Patient Instructions* Nichole Humphrey APRN.CNP - 02/14/2023 1:31 PM EDT PATIENT PREOPERATIVE INSTRUCTIONS Donato Bishop MD has scheduled you for your procedure at this surgery center: [facility]: [phone] --[address] [address]. Please check in on the1st floor at [...] Procedures: - YOU MUST HAVE A RESPONSIBLE MAIL DISTRIBUTION CLERK TAKE YOU HOME. A ALL PURPOSE CLERK OR CHAIRMAN AND CHIEF EXECUTIVE OFFICER CANNOT BE MADE A RESPONSIBLE MAIL DISTRIBUTION CLERK. - We recommend that a responsible person stays with you overnight to take care of you. - You cannot stay in a hotel alone after outpatient surgery. You will not be permitted to have yoursurgery, if you do not have someone to take care of you. If you already have an Advance Directive, please fax a copy to [phone] or email to for it to be [...] your chart that day. documented in this encounter[facility] Evaluation note* Encounter Date Diagnosis Assessment Notes Treatment Notes Treatment Clinical Notes Jan, Essential (primary) hypertension (ICD-10 - I10) Jan, Hyperlipidemia type II (ICD-10 - E78.01) [facility] Other 04-24-2023 Evaluation note* Encounter Date Diagnosis Assessment Notes Treatment Notes Treatment Clinical Notes Jan, Strain of right knee , initial encounter (ICD-10 - S86.911A) Ice, heat, elevate and brace IA injection? Prednisone? Jan, Swelling of right knee joint (ICD-10 - M25.461) Rest w/ intermittent ice Jan, Primary osteoarthritis of right knee (ICD-10 - M17.11) Quad exercises, ice/heat, Tylenol [facility] Other 04-17-2023 Evaluation note* Encounter Date Diagnosis [...] for postoperative hypoventilation w/ sedating pain medications. [facility] Other 04-12-2023 Hospital Discharge instructions Patient Education [...] fried and sweet foods. General instructions Take cwpg-tjh-vjloocw and prescription medicines only as told by [...] 07/28/2010 Document Revised: 01/22/2020 Document Reviewed: 10/17/2018 [employer] Patient Education 2020 [employer]. Follow Up Care 11/08/2022 13:09:05 With:YESSENIA ZHU, CIERRA Roche, URL Address: [address] [place] [address] When:3 months [facility] [place] 03-30-2023 Hospital Discharge instructions Patient [...] 09/17/2013 Document Revised: 05/21/2019 Document Reviewed: 05/21/2019 [employer] Patient Education 2020 [employer]. Follow Up Care 11/08/2022 13:23:11 With:CIERRA ZHU PA-C, URL Address: [address] [place] [address] When: Unknown [facility] [place] 03-16-2023 Hospital Discharge instructions Patient [...] nerve stimulation). For women, using a medical csr to prevent urine leaks. This is a [...] right after experiencing incontinence. General instructions Take iyir-vzw-buniift and prescription medicines only as told by [...] 11/08/2005 Document Revised: 10/11/2018 Document Reviewed: 01/10/2018 [employer] Patient Education 2020 [employer]. 12/28/2022 09:12:01 Overactive Bladder, Adult Overactive Bladder, [...] fried and sweet foods. General instructions Take patz-wgl-dmvrfqz and prescription medicines only as told by [...] 07/28/2010 Document Revised: 01/22/2020 Document Reviewed: 10/17/2018 [employer] Patient Education 2020 [employer]. Follow Up Care 11/08/2022 13:19:49 With:YESSENIA ZHU, CIERRA Roche, URL Address: [facility] [address] [facility] [place] [address] When:1 week Comments:1 wk follow up PFPT #[address] [facility] [place] 03-14-2023 History of Present illness Narrative* Donato Bishop MD - 12/26/2022 10:20 AM EDT HISTORY AND PHYSICAL [facility] Chief Complaint: inguinal hernia HPI: Yoni Ramirez is a 77 year old male with a history of arthritis, BPH, gout, HTN, hypercholesteremia, prostate cancer (surgery and radiation treatment), diverticulosis, urinary incontinence, whopresents for evaluation of an inguinal hernia. He has a history of open left inguinal hernia in 2015. He started to notice recurrent bulging in [...] (Radha Whitten) 1994 - Umbilical hernia @ [place] 2014 - Open left inguinal hernia @ [place] No history of Psychiatric Disorders or Opioid [...] Bishop MD 01/02/23, 5:14 PM General Surgery [facility] * Kate Funez RN - 12/26/2022 [...] Temperature: No Drains: No documented in this encounterAk[facility] Hospital Discharge instructions Patient Education 12/14/2022 09:24:29 [...] 09/17/2013 Document Revised: 05/21/2019 Document Reviewed: 05/21/2019 Elsevier Patient Education 2020 [employer] Inc[employer] Follow Up Care 11/08/2022 13:16:38 With:CIERRA ZHU PA-C, URL Address: [address] [facility] [place] [address] When: Unknown [facility] [place] 02-28-2023 History of Present illness Narrative* G [...] ASSESSMENT/PLAN: Prostate adenocarcinoma, initial PSA 7.4, biopsy Martin score 4 + 3 = 7 (grade [...] by: Aaliyah Hernandez MD cc: Bro Chavez ([facility]) [address] [place] [address] Dr. Whitten documented in this encounterAkron [facility]02-[facility]23 Nurse Note* Melanie Pierre RN - 12/06/2022 [...] 2022 TIME: 9:07 AM documented in this encounterAkron [facility]02-20-2023 Miscellaneous Notes* Allied Health - Kelly Benavides, humanities and languages professor - 12/04/2022 3:40 PM EST Radiology Service [...] ROSY Campoverde December 04, 2022 4:33 PM documented in this encounterAkron [facility]02-20-2023 Nurse Note* Sima Craig RN - 12/04/2022 [...] 2022 TIME: 2:36 PM documented in this encounterAkron [facility]02-16-[facility]23 Hospital Discharge instructions Patient Education 11/30/2022 09:15:44 [...] 09/17/2013 Document Revised: 05/21/2019 Document Reviewed: 05/21/2019 [employer] Patient Education 2020 [employer]. Follow Up Care 11/08/2022 13:07:14 With:YESSENIA ZHU, CIERRA Roche, URL Address: [address] [place] [address] When: Unknown [facility] [place] 02-09-2023 Hospital Discharge instructions Patient [...] fried and sweet foods. General instructions Take noic-lra-hgaytxh and prescription medicines only as told by [...] 07/28/2010 Document Revised: 01/22/2020 Document Reviewed: 10/17/2018 [employer] Patient Education 2020 [employer]. Follow Up Care 11/08/2022 13:06:21 With:YESSENIA ZHU, CIERRA Roche, URL Address: [facility] [address] [facility] [place] [place] [address] [phone] When: Unknown [facility] [place] [id number] Nurse Note* Debbie Martin RN - 11/09/2022 1:03 PM EST RUDI 5. Debbie Martin RN documented in this encounterAk[facility]01-26-[facility]23 History of Present illness Narrative* Aaliyah Hernandez MD - 11/09/2022 1:00 PM EST Radiation Oncology - Follow Up Note PATIENT NAME: Yoni Ramirez PATIENT DIAGNOSIS: Prostate adenocarcinoma, initial PSA 7.4, biopsy Martin score 4 + 3 = 7 (grade [...] ASSESSMENT/PLAN: Prostate adenocarcinoma, initial PSA 7.4, biopsy Martin score 4 + 3 = 7 (grade [...] Aaliyah Hernandez MD cc: Bro Chavez ([facility]) [address] [place] [address] Dr. Whitten documented in this encounterAk[facility]01-[facility]23 Hospital Discharge instructions Patient Education 11/08/2022 12:05:39 [...] nerve stimulation). For women, using a medical csr to prevent urine leaks. This is a [...] right after experiencing incontinence. General instructions Take yswx-lwe-asosadv and prescription medicines only as told by [...] 11/08/2005 Document Revised: 10/11/2018 Document Reviewed: 01/10/2018 [employer] Patient Education 2020 [employer]. 11/08/2022 12:05:35 Calorie Counting for Weight Loss [...] 10/01/2006 Document Revised: 06/20/2019 Document Reviewed: 08/31/2017 [employer] Patient Education 2020 [employer]. Follow Up Care 10/04/2022 09:47:52 With:Fish WHARTON, ALANNA Hahn, URO Address: When: Unknown [facility] 12-21-2022 Hospital Discharge instructions Patient Education 10/04/2022 [...] veins. Follow these instructions at home: Take mkgn-dgs-blbakid and prescription medicines only as told by [...] 01/07/2002 Document Revised: 12/19/2019 Document Reviewed: 12/19/2019 [employer] Patient Education 2020 [employer]. Follow Up Care 03/28/2022 09:10:25 With:Fish WHARTON, Radha Tejada, ALANNA, URO Address: [address], [place] [address] [phone] When: Unknown Comments:schedule scrotal US [facility] 09-29-2022 Nurse Note* Debbie Martin RN - 07/13/2022 1:22 PM EDT AUA 3 Debbie Martin RN documented in this encounterAk[facility]09-29-2022 History of Present illness Narrative* G Raz Hernandez MD - 07/13/2022 1:15 PM EDT Radiation Oncology - Follow Up Note PATIENT NAME: Yoni Ramirez PATIENT DIAGNOSIS: Prostate adenocarcinoma, initial PSA 7.4, biopsy Martin score 4 + 3 = 7 (grade [...] by: Aaliyah Hernandez MD cc: Bro Chavez ([facility]) [address] [place] [address] documented in this encounterAk[facility]2022 History of Present illness Narrative* Aaliyah Hernandez [...] ASSESSMENT/PLAN: Prostate adenocarcinoma, initial PSA 7.4, biopsy Martin score 4 + 3 = 7 (grade [...] by: Aaliyah Hernandez MD cc: Bro Chavez ([facility]) [address] [place] [id number] documented in this encounterAkron [facility]06-14-2022 Hospital Discharge instructions Patient Education 03/28/2022 08:51:26 [...] including vitamins, herbs, eye drops, creams, and sins-dgm-mvhcwfd medicines. This also includes: ?Medicines to assist [...] 11/03/2005 Document Revised: 09/13/2018 Document Reviewed: 07/08/2018 [employer] Patient Education 2020 [employer]. Follow Up Care 09/27/2021 10:26:46 With:Tano Bernardo MD, Sushant Morel, URO Address: [facility] [address], [place] [address]- When:Within 6 Month(s) [facility] evaluation + Plan note Future Appointments Appointment Date:10/03/2022 08:00:00 AM Scheduled Provider:Sushant Freedman Jr., MD Location:[facility] Appointment Type:URO Office Visit [facility] evaluation + Plan note Future Appointments Appointment Date:01/03/2023 08:00:00 AM Scheduled Provider:Radha Whitten MD Location:[facility] Appointment Type:URO Office Visit [facility] evaluation + Plan note Future Appointments Appointment Date:11/23/2022 09:00:00 AM Scheduled Provider:CIERRA ZHU PA-C [facility] Appointment Type:URO Procedure 30 min Appointment Date:11/30/2022 09:00:00 AM Scheduled Provider:CIERRA ZHU PA-C [facility] Appointment Type:URO Procedure 30 min Appointment Date:12/07/2022 10:30:00 AM Scheduled Provider:CIERRA ZHU PA-C [facility] Appointment Type:URO Procedure 30 min Appointment Date:12/14/2022 09:00:00 AM Scheduled Provider:CIERRA ZHU PA-C Location:[facility] [place] Appointment Type:URO Procedure 30 min Appointment Date:12/28/2022 09:00:00 AM Scheduled Provider:CIERRA ZHU PA-C Location:[facility] [place] Appointment Type:URO Procedure 30 min Appointment Date:01/11/2023 09:00:00 AM Scheduled Provider:CIERRA ZHU PA-C [facility] Appointment Type:URO Procedure 30 min Appointment Date:01/17/2023 08:45:00 AM Scheduled Provider:Radha Whitten MD Location:[facility] Appointment Type:URO Office Visit [facility] evaluation + Plan note Future Appointments Appointment Date:11/30/2022 09:00:00 AM Scheduled Provider:CIERRA ZHU PA-C [facility] Appointment Type:URO Procedure 30 min Appointment Date:12/07/2022 10:30:00 AM Scheduled Provider:CIERRA ZHU PA-C Location:[facility] [place] Appointment Type:URO Procedure 30 min Appointment Date:12/14/2022 09:00:00 AM Scheduled Provider:CIERRA ZHU PA-C Location:[facility] [place] Appointment Type:URO Procedure 30 min Appointment Date:12/28/2022 09:00:00 AM Scheduled Provider:CIERRA ZHU PA-C [facility] Appointment Type:URO Procedure 30 min Appointment Date:01/11/2023 09:00:00 AM Scheduled Provider:CIERRA ZHU PA-C [facility] Appointment Type:URO Procedure 30 min Appointment Date:01/17/2023 08:45:00 AM Scheduled Provider:Radha Whitten MD [facility] Type[facility]URO Office Visit [facility] Evaluation + Plan note Future Appointments Appointment Date:12/07/2022 10:30:00 AM Scheduled Provider:CIERRA ZHU PA-C [facility] Type[facility] Procedure 30 min Appointment Date:12/14/2022 09:00:00 AM Scheduled Provider:CIERRA ZHU PA-C Location:[facility] [place] Appointment Type:URO Procedure 30 min Appointment Date:12/28/2022 09:00:00 AM Scheduled Provider:CIERRA ZHU PA-C [facility] Type:[facility]O Procedure 30 min Appointment Date:01/11/2023 09:00:00 AM Scheduled Provider:CIERRA ZHU PA-C [facility] Type:URO Procedure 30 min Appointment Date:01/17/2023 08:45:00 AM Scheduled Provider:Radha Whitten MD Location:[facility] Appointment Type:URO Office Visit [facility] Evaluation + Plan note Future Appointments Appointment Date:12/28/2022 09:00:00 AM Scheduled Provider:CIERRA ZHU PA-C Location:[facility] Appointment Type:URO Procedure 30 min Appointment Date:01/11/2023 09:00:00 AM Scheduled Provider:CIERRA ZHU PA-C Location:[facility] Appointment Type:URO Procedure 30 min Appointment Date:01/24/2023 08:30:00 AM Scheduled Provider:CIERRA ZUH PA-C Location:[facility] Appointment Type:URO Procedure 30 min Appointment Date:02/02/2023 09:00:00 AM Scheduled Provider:Radha Whitten MD Location:[facility] Appointment Type:URO Office Visit [facility] Evaluation + Plan note Future Appointments Appointment Date:01/11/2023 09:00:00 AM Scheduled Provider:CIERRA ZHU PA-C Location:[facility] Appointment Type:URO Procedure 30 min Appointment Date:01/24/2023 08:30:00 AM Scheduled Provider:CIERRA ZHU PA-C Location:[facility] Appointment Type:URO Procedure 30 min Appointment Date:02/02/2023 09:00:00 AM Scheduled Provider:Radha Whitten MD Location:[facility] Appointment Type:URO Office Visit [facility] evaluation + Plan note Future Appointments Appointment Date:01/24/2023 08:30:00 AM Scheduled Provider:CIERRA ZHU PA-C Location:[facility] Appointment Type:URO Procedure 30 min Appointment Date:02/02/2023 09:00:00 AM Scheduled Provider:Radha Whitten MD Location:[facility] Appointment Type:URO Office Visit [facility] evaluation + Plan note Future Appointments Appointment Date:11/28/2023 10:00:00 AM Scheduled Provider:Radha Whitten MD Location:[facility] Appointment Type:URO Office Visit [facility] evaluation + Plan note Future Appointments Appointment Date:06/04/2024 08:45:00 AM Scheduled Provider:Radha Whitten MD Location:[facility] Appointment Type:URO Office Visit [facility] evaluation + Plan note Future Appointments Appointment Date:12/10/2024 08:45:00 AM Scheduled Provider:Radha Whitten MD Location:[facility] Appointment Type:URO Office Visit [facility] evaluation note* Diagnosis Prostate cancer (HCC)- Primary Malignant neoplasm of prostate [facility] [place] [facility]* Diagnosis Prostate cancer (HCC)- Primary Malignant neoplasm of prostate [facility] [place] [facility]* Diagnosis Prostate cancer (HCC)- Primary Malignant neoplasm of prostate Abdominal mass, left lower quadrant Abdominal or pelvic swelling, mass, or lump, left lower quadrant documented in this encounter [facility] note* Diagnosis Prostate cancer (HCC) Malignant neoplasm of prostate Abdominal mass, left lower quadrant Abdominal or pelvic swelling, mass, or lump, left lower quadrant documented in this encounter [facility] note* Diagnosis Malignant neoplasm of prostate (HCC)- Primary Malignant neoplasm of prostate documented in this encounter [facility] note* Diagnosis Recurrent left inguinal hernia- Primary Inguinal hernia without mention of obstruction or gangrene, recurrent unilateral or unspecified Unilateral recurrent inguinal hernia without obstruction or gangrene Inguinal hernia without mention of obstruction or gangrene, recurrent unilateral or unspecified documented in this encounter [facility] note* Diagnosis Obesity, Class I, BMI 30-34.9 [...] unilateral or unspecified documented in this encounter [facility] noteNo Car Loan [employer]enton [place] Other Evaluation note* Diagnosis Malignant neoplasm of prostate (HCC)- Primary Malignant neoplasm of prostate documented in this encounter [facility] note* Diagnosis Malignant neoplasm of prostate (HCC)- Primary Malignant neoplasm of prostate documented in this encounter [facility] note* Diagnosis Onset Date Resolution Status Amaurosis fugax, right eye a cute Hypercholesterolemia acute Hypertension acute MIHIR (obstructive sleep apnea) acute Prostate cancer acute [facility] Work Phone: Evaluation note* Diagnosis Ventral incisional hernia documented in this encounter [facility] note* Diagnosis S/P repair of ventral hernia- Primary Other postprocedural status documented in this encounter [facility] note* Diagnosis Onset Date Resolution Status Anemia acute Hypercholesterolemia acute Hypertension acute MCI (mild cognitive impairment) acute Obesity acute MIHIR (obstructive sleep apnea) acute Prostate cancer acute [facility] Work Phone: Evaluation note* Diagnosis Malignant neoplasm of prostate (HCC)- Primary Malignant neoplasm of prostate [facility] [place] [facility]* Diagnosis Onset Date Resolution Status Bradycardia acute Chest pain acute Hypercholesterolemia acute Hypertension acute MCI (mild cognitive impairment) acute Obesity acute MIHIR (obstructive sleep apnea) acute [facility] Work Phone: History general Narrative - Reported* Type Description [...] HERNIA REPAIR 1997 Surgical History LEFT INGUINAL 2015 Surgical History COLONOSCOPY Hospitalization History SEE SURGICAL [facility] Other History general Narrative - Reported* Type [...] repair 03/03 23 Hospitalization History SEE SURGICAL [facility] Other History general Narrative - Reported* Type [...] repair 03/03 23 Hospitalization History SEE SURGICAL [facility] Other Hospital course Narrative No data available for this section [facility] progress note No data available for this section [facility] Reason for Referral Specialty Diagnoses / Procedures Referred By Contartie t Referred To Contact MR IMAGING Diagnoses Prostate cancer (HCC) Abdominal mass, left lower quadrant Procedures MRI PELVIS WO/W IVCON MRI PELVIS W/O & W/CONTRAST MATERIAL Aaliyah Hernandez MD [address] [place] [address] [place] [address] Mr Imaging Referral ID Status Reason Start Date Expiration Date Visits Requested Visits Authorized [id number] Authorized Auto-Generat ed Referral 11/09/2022 12/09/2023 1 1 Summary Purpose Family History No Family History Records FoundNo Family History Records Found No data available for this section No data available for this section No Family History Records FoundNo Family History Records Found No data available for this section No Family History Records Found Advance Directives Advance Directive Response Recorded Date/ Time Advance [...] Obesity MIHIR (obstructive sleep apnea) Prostate cancer Chief Complaint allergy shot Amb Documentation hospital follow up Reason for Visit Bradycardia Chest pain Hypercholesterolemia Hypertension MCI (mild cognitive impairment) Obesity MIHIR (obstructive sleep apnea) Additional Source Comments Care Team (unrecognized sect ion and content) Team Status: Active Member Role Status Dates Bro Chavez DO Primary Care Provider Active Team Status: Inactive Member Role Status Dates Bro Chavez DO Primary Care Provide r, Attending Provider Active Start: April 09, 2024 End: April 09, 2024 Team Status: Active Member Role Status Dates Bro Chavez DO Primary Care Provider Active Start: May 13, 2024 Edward Hernandez MD Attending Provider Active Start: May 13, 2024 Team Status: Active Member Role Status Dates Bro Chavez DO Primary Care Provide r, Attending Provider Active Start: June 27, 2024 Team Status: Active Member Role Status Dates Bro Chavez DO Primary Care Provider Active Start: June 28, 2024 Veronica Castaneda Attending Provider Active Start: 2023 Team Status: Active Member Role Status Dates Bro Chavez DO Primary Care Provider Active Start: July 01, 2024 SANDRA Fortune Attending Provider Active St art: July 01, 2024 Team Status: Inactive Member Role Status Dates Bro Chavez DO Primary Care Provide r, Attending Provider Active Start: July 02, 2024 End: July 02, 2024 Deflector Operator Relationship Specialty Start Date End Date Bro Chavez, DO [address] [place] [address] PCP - General Internal Medicine 05/10/21 Deflector Operator Relationship Specialty Start Date End Date Bro Chavez, DO [address] [place] [address] PCP - General Internal Medicine 05/10/21 Deflector Operator Relationship Specialty Start Date End Date Bro Chavez, DO [address] [place] [address] PCP - General Internal Medicine 05/10/21 Deflector Operator Relationship Specialty Start Date End Date Bro Chavez, DO [address] [place] [address] PCP - General Internal Medicine 05/10/21 Deflector Operator Relationship Specialty Start Date End Date Bro Chavez, DO [address] [place] [address] PCP - General Internal Medicine 05/10/21 Deflector Operator Relationship Specialty Start Date End Date Bro Chavez, DO [address] [place] [address] PCP - General Internal Medicine 05/10/21 Deflector Operator Relationship Specialty Start Date End Date Bro Chavez, DO [address] [place] [address] PCP - General Internal Medicine 05/10/21 Deflector Operator Relationship Specialty Start Date End Date Bro Chavez, DO [address] [facility] [place] [address] PCP - General Internal Medicine 05/10/21 Radha Whitten MD [address] [place] [address] Urology 12/21/22 Deflector Operator Relationship Specialty Start Date End Date Bro Chavez, DO [address] [facility] [place] [address] PCP - General Internal Medicine 05/10/21 Radha Whitten MD [address] [place] [address] Urology 12/21/22 Deflector Operator Relationship Specialty Start Date End Date Bro Chavez, DO [address] [facility] [place] [address] PCP - General Internal Medicine 05/10/21 Radha Whitten MD [address] [place] [address] Urology 12/21/22 Deflector Operator Relationship Specialty Start Date End Date Bro Chavez, DO [address] [facility] [place] [address] PCP - General Internal Medicine 05/10/21 Radha Whitten MD [address] [place] [address] Urology 12/21/22 Deflector Operator Relationship Specialty Start Date End Date Bro Chavez DO [address] [place] [address] PCP - General Internal Medicine 05/10/21 Radha hWitten MD [address] [place] [address] Urology 12/21/22 Team Status: Active Member Role [...] February 12, 2024 End: February 12, 2024 Deflector Operator Relationship Specialty Start Date End Date Bro Chavez DO [address] [place] [id number] PCP - General Internal Medicine 05/10/21 Radha Whitten MD [address] [place] [address] Urology 12/21/22 Deflector Operator Relationship Specialty Start Date End Date Bro Chavez DO [address] [place] [address] PCP - General Internal Medicine 05/10/21 Radha Whitten MD [address] [place] [address] Urology 12/21/22 Deflector Operator Relationship Specialty Start Date End Date Bro Chavez DO [address] [place] [address] PCP - General Internal Medicine 05/10/21 Radha Whitten MD [address] [place] [address] Urology 12/21/22 Deflector Operator Relationship Specialty Start Date End Date Bro Chavez DO [address] [place] [address] PCP - General Internal Medicine 05/10/21 Radha Whitten MD [address] [place] [place] [address] Urology 12/21/22 Team Status: Inactive Member Role Status Dates Bro Chavez DO Primary Care Provide r, Attending Provider Active Start: April 09, 2024 End: April 09, 2024 Team Status: Active Member Role Status Dates Bro Chavez DO Primary Care Provider Active Start: May 13, 2024 Edward Hernandez MD Attending Provider Active Start: May 13, 2024 Team Status: Active Member Role Status Dates Bro Chavez DO Primary Care Provide r, Attending Provider Active Start: June 27, 2024 Team Status: Active Member Role Status Dates Bro Chavez DO Primary Care Provider Active Start: June 28, 2024 Veronica Castaneda Attending Provider Active Start: 2023 Team Status: Active Member Role Status Dates Bro Chavez DO Primary Care Provider Active Start: July 01, 2024 SANDRA Fortune Attending Provider Active St art: July 01, 2024 Team Status: Inactive Member Role Status Dates Bro Chavez DO Primary Care Provide r, Attending Provider Active Start: July 02, 2024 End: July 02, 2024 Source Comments (unrecognize d section and content) In the event this informatio n is protected by the Federal Confidentiality of Alcohol and Drug Abuse Patient Records regulations: The Federal rules restrict any use of the information to criminally investigate or prosecute any alcohol or drug abuse patient.[facility] the event this information is protected by the Federal Confidentiality of Alcohol and Drug Abuse Patient Records regulations: The Federal rules restrict any use of the information to criminally investigate or prosecute any alcohol or drug abuse patient.[facility] the event this information is protected by the Federal Confidentiality of Alcohol and Drug Abuse Patient Records regulations: The Federal rules restrict any use of the information to criminally investigate or prosecute any alcohol or drug abuse patient.[facility] the event this information is protected by the Federal Confidentiality of Alcohol and Drug Abuse Patient Records regulations: The Federal rules restrict any use of the information to criminally investigate or prosecute any alcohol or drug abuse patient.[facility] the event this information is protected by the Federal Confidentiality of Alcohol and Drug Abuse Patient Records regulations: The Federal rules restrict any use of the information to criminally investigate or prosecute any alcohol or drug abuse patient.[facility] the event this information is protected by the Federal Confidentiality of Alcohol and Drug Abuse Patient Records regulations: The Federal rules restrict any use of the information to criminally investigate or prosecute any alcohol or drug abuse patient.[facility] the event this information is protected by the Federal Confidentiality of Alcohol and Drug Abuse Patient Records regulations: The Federal rules restrict any use of the information to criminally investigate or prosecute any alcohol or drug abuse patient.[facility] the event this information is protected by the Federal Confidentiality of Alcohol and Drug Abuse Patient Records regulations: The Federal rules restrict any use of the information to criminally investigate or prosecute any alcohol or drug abuse patient.[facility] the event this information is protected by the Federal Confidentiality of Alcohol and Drug Abuse Patient Records regulations: The Federal rules restrict any use of the information to criminally investigate or prosecute any alcohol or drug abuse patient.[facility] the event this information is protected by the Federal Confidentiality of Alcohol and Drug Abuse Patient Records regulations: The Federal rules restrict any use of the information to criminally investigate or prosecute any alcohol or drug abuse patient.[facility] the event this information is protected by the Federal Confidentiality of Alcohol and Drug Abuse Patient Records regulations: The Federal rules restrict any use of the information to criminally investigate or prosecute any alcohol or drug abuse patient.[facility] Hospital[facility] the event this information is protected by the Federal Confidentiality of Alcohol and Drug Abuse Patient Records regulations: The Federal rules restrict any use of the information to criminally investigate or prosecute any alcohol or drug abuse patient.[facility] Hospital[facility] the event this information is protected by the Federal Confidentiality of Alcohol and Drug Abuse Patient Records regulations: The Federal rules restrict any use of the information to criminally investigate or prosecute any alcohol or drug abuse patient.[facility] Hospital[facility] the event this information is protected by the Federal Confidentiality of Alcohol and Drug Abuse Patient Records regulations: The Federal rules restrict any use of the information to criminally investigate or prosecute any alcohol or drug abuse patient.[facility] HospitalIn the event this information is protected by the Federal Confidentiality of Alcohol and Drug Abuse Patient Records regulations: The Federal rules restrict any use of the information to criminally investigate or prosecute any alcohol or drug abuse patient.[facility] HospitalIn the event this information is protected by the Federal Confidentiality of Alcohol and Drug Abuse Patient Records regulations: The Federal rules restrict any use of the information to criminally investigate or prosecute any alcohol or drug abuse patient.[facility] HospitalIn the event this information is protected by the Federal Confidentiality of Alcohol and Drug Abuse Patient Records regulations: The Federal rules restrict any use of the information to criminally investigate or prosecute any alcohol or drug abuse patient.[facility] Reason for Visit (unrecogniz ed section and content) Reason Comments Prostate Cancer Reason Comments Prostate Cancer Specialty Diagnoses / Procedures Referred By Contac t Referred To Contact MR IMAGING Diagnoses Prostate cancer (HCC) Abdominal mass, left lower quadrant Procedures MRI PELVIS WO/W IVCON MRI PELVIS W/O & W/CONTRAST MATERIAL Aaliyah Hernandez MD [address] [place] [address] [place] [address] Mr Imaging Referral ID Status Reason Start Date Expiration Date V isits Requested Visits Authorized [id number] Closed Auto-Generate d Referral 11/09/2022 12/09/2023 1 1 Reason Comments New Reason Comments Pre-Op Visit Reason Comments Radiology CT Specialty Diagnoses / Procedures Referred By Contac t Referred To Contact CT IMAGING Diagnoses Ventral incisional hernia Procedures CT ABD/PEL WO IVCON CT ABD & P[place] [address] [place] [address] [place] [address] Referral ID Status Reason Start Date Expiration Date V isits Requested Visits Authorized [id number] Closed Auto-Generate d Referral 02/27/2024 04/18/2024 1 1 Reason Comments Follow Up 1 year (unrecognized sect ion and content) No Status Records FoundNo Status Records FoundNo Status Records FoundNo Status Records FoundNo Status Records Found INFORMATION SOURCE (unrecogn ized section and content) DATE CREATED AUTHOR 02/25/2023 [facility] DATE CREATED AUTHOR AUTHOR'S ORGANIZ ATION 02/28/2023 [facility] DATE CREATED AUTHOR AUTHOR'S ORGANIZ ATION 03/24/2024 [facility] EPIC DATE CREATED AUTHOR AUTHOR'S ORGANIZ ATION 05/26/2024 [facility] DATE CREATED AUTHOR AUTHOR'S ORGANIZ ATION 06/05/2024 [facility] Goals (unrecognized section and content) Goals [...] BE BASED ON THE PRIMARY CLINICAL RECORDS. [employer] provides no warranty or guarantee of the accuracy or completeness of information in this document.
[2024-07-14 19:26] LABS: Basophils Percent Auto 0.7 % (0.2-2.0); Eosinophils Absolute Auto 0.2 10^3/uL (0.0-0.7); Eosinophils Percent Auto 3.1 % (0.9-7.0); Hemoglobin 13.6 g/dL (14.0-18.0); Immature Granulocytes Abs Auto 0.01 10^3/uL (0.00-0.03); Immature Granulocytes Pct Auto 0.2 % (0.0-0.5); Lymphocytes Absolute Auto 1.3 10^3/uL (1.2-3.8); Lymphocytes Percent Auto 21.9 % (20.5-60.0); Mean Corpuscular Hemoglobin 31.7 pg (25.9-34.0); Mean Corpuscular Volume 93.2 fL (80.0-94.0); Mean Platelet Volume 10.8 fL (9.5-13.5); Monocytes Absolute Auto 0.7 10^3/uL (0.3-0.8); Monocytes Percent Auto 11.2 % (1.7-12.0); Neutrophils Absolute Auto 3.8 10^3/uL (1.4-6.5); Neutrophils Percent Auto 62.9 % (43.0-75.0); Platelet Count 167 10^3/uL (150-450); Red Blood Count 4.29 10^6/uL (4.70-6.10); Red Cell Distribution Width 16.3 % (11.0-15.0); White Blood Count 6.1 10^3/uL (4.0-11.0)
[2024-07-14] MEDS: ASPIRIN 81 MG TAB.CHEW 162 MG PO (19:35)
[2024-07-14] MEDS: NITROGLYCERIN 0.4 MG BOTTLE SL (19:35)
[2024-07-14 19:44] LABS: Alanine Aminotransferase 22 U/L (16-63); Albumin Level 3.6 g/dL (3.4-5.0); Alkaline Phosphatase 110 U/L (46-116); Anion Gap 7.3; Aspartate Amino Transferase 15 U/L (15-37); BUN Creatinine Ratio 14.9; Bilirubin Total 0.4 mg/dL (0.2-1.0); Calcium 9.7 mg/dL (8.5-10.1); Chloride 105 mmol/L (98-107); Estimated GFR (African America >60 (>=60); Estimated GFR (Non-African Ame >60 (>=60); Globulin 3.5 g/dL; Glucose 110 mg/dL (74-106); Potassium 3.3 mmol/L (3.5-5.1); Sodium 141 mmol/L (136-145); Total Protein 7.1 g/dL (6.4-8.2)
[2024-07-14 19:51] LABS: Troponin I High Sensitivity 9.1 pg/mL (4.0-76.1)
[2024-07-14 19:52] LABS: INR 1.04
[2024-07-14 20:52] LABS: INR 1.03; Partial Thromboplastin Time 27.9 sec (22.3-36.2); Prothrombin Time 10.9 sec (9.0-11.6)
[2024-07-14] MEDS: NITROGLYCERIN 2% 1 GRAM PACKET 0.5 GM TD (21:24)
[2024-07-14] MEDS: HEPARIN SODIUM,PORCINE/D5W 25,000 UNIT/500 ML IV.SOLN 23.95 UNIT IV (21:26)
[2024-07-14 23:16] LABS: Creatine Kinase 59 U/L (39-308); Troponin I High Sensitivity 20.5 pg/mL (4.0-76.1)
[2024-07-15] VITALS (37 sets, daily range): BP systolic 125–160; BP diastolic 59–88; PULSE 55–73; O2SAT 97
[2024-07-15 04:05] LABS: PTT Heparin Monitor 51.3 sec (48.2-68.6)
--- NOTE | 2024-07-15 04:12 | PC.NURSE ---
No change in Heparin drip Therapeutic range
[2024-07-15 08:07] LABS: Troponin I High Sensitivity 23.4 pg/mL (4.0-76.1)
== END 2024-07-15 17:22 | disposition home or self-care (01) ==
PROVIDERS: Internal Medicine; Physician Assistant; Emergency Provider Emergency Medicine; PCP Internal Medicine
DX: R07.9 Chest pain, unspecified (principal)
CPT/HCPCS: 36415; 71045; 80053; 82550; 82553; 83690; 83880; 84484; 85025; 85610; 85730; 93005; 96365; 96366; 99285; J1644

== ENCOUNTER 2024-10-13 06:59 | Outpatient (RCR) | payer MEDICARE, OTHER, SELFPAY ==
--- NOTE | 2024-09-16 15:08 | CR1_ITS ---
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
--- NOTE | 2024-09-24 09:57 | CR1_ITS ---
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
== END 2024-10-14 11:55 | disposition home or self-care (01) ==
LOC: CR 06:59
PROVIDERS: PCP Internal Medicine; Visit Provider Internal Medicine
DX: I50.22 Chronic systolic (congestive) heart failure (principal)
CPT/HCPCS: 93798

== ENCOUNTER 2024-10-21 11:28 | Outpatient (OUT) | payer MEDICARE, OTHER, SELFPAY ==
[2024-10-21 12:45] LABS: Anion Gap 8.6; BUN Creatinine Ratio 15.6; Calcium 9.6 mg/dL (8.5-10.1); Carbon Dioxide 34.5 mmol/L (21.0-32.0); Chloride 108 mmol/L (98-107); Estimated GFR (African America >60 (>=60 mL/min/1.73m^2); Estimated GFR (Non-African Ame >60 (>=60 mL/min/1.73m^2); Glucose 103 mg/dL (74-106); Potassium 4.1 mmol/L (3.5-5.1); Sodium 147 mmol/L (136-145)
== END 2024-10-21 11:29 | disposition home or self-care (01) ==
LOC: LAB 11:28
PROVIDERS: PCP Internal Medicine
DX: R60.9 Edema, unspecified (principal); R06.09 Other forms of dyspnea
CPT/HCPCS: 36415; 80048; 83880

== ENCOUNTER 2024-11-21 07:45 | Outpatient (OUT) | payer MEDICARE, OTHER, SELFPAY ==
--- NOTE | 2024-11-21 07:48 | MR_ITS ---
The [address] [address] Patient Name: YONI RAMIREZ MRN: [id number] date: 1945 Sex: M Assigned Patient Location: MRI Current Patient Location: MRI Accession/Order Number: [id number] Exam Date: 11/21/2024 08:00 Report Date: 11/21/2024 13:27 At the request of: NURA CHAVEZ Procedure: MR head/brain wo con MRI BRAIN WITHOUT CONTRAST; 11/21/2024 8:00 AM EST History:Confusion, Amnesia Comparison: None available . SEQUENCES: Per routine unenhanced protocol STUDY QUALITY: Good No evidence of acute infarction. No intracranial restricted diffusion. 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 Moderate somewhat symmetric supratentorial white matter disease. Focal asymmetric cortical loss on either side of a widened right parieto-occipital fissure may be the sequela of prior infarction Slight white matter disease in the brainstem. VESSELS: Signal voids are present in the major intracranial blood vessels. BRAIN VOLUME: Modest bifrontal and insular atrophy. VENTRICLES: Aspects are prominent but not out of proportion to the white matter disease and atrophy. ORBITS: No acute findings. SELLA/ SUPRASELLAR: No acute findings at relatively thick sections. CP ANGLES: No acute findings at relatively thick sections. UPPER CERVICAL: No acute findings. PARANASAL SINUSES: No air-fluid levels. Essentially clear at MRI MASTOIDS: Essentially clear at MRI CALVARIUM: No acute findings. OTHER: None. MR/MR head/brain wo con IMPRESSION: 1. No evidence of acute intracranial process on this unenhanced study as described. 2. 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 Electronically authenticated by: NAEEM YOST Date: 11/21/2024 13:27
--- OUTSIDE RECORDS SUMMARY | 2024-11-21 07:49 | XMS_ITS | CCD ---
Author Organization [facility] Care Team Providers Care Money Market Clerk Name Role Phone BRO CHAVEZ Primary Care Physician Bro Chavez DO Primary Care Provider Bro Chavez DO Primary Care Provider Bro Chavez DO Primary Care Provider Radha Whitten MD Unavailable Bro Chavez Unavailable KATHY, DR LYMAN Admitting Unavailable KATHY, DR LYMAN Attending Unavailable KATHY, DR LYMAN Primary Care Unavailable KATHY, DR LYMAN Consulting Unavailable LIZZIE, DR CASSIDY Etienne Consulting Unavailable KATHY, DR BRO Robinsitting Unavailable KATHY, DR LYMNA Attending Unavailable KATHY, DR LYMAN Primary Care Unavailable LUE ., RADHA Carmen Admitting Unavailable LUE ., RADHA Carmen Attending Unavailable KATHY, DR LYMAN Primary Care Unavailable LIZZIE, DR CASSIDY Etienne Consulting Unavailable LUE ., RADHA Carmen Consulting Unavailable LUE ., [...] BISHOP Admitting Unavailable DONATO BISHOP Attending Unavailable RBO CHAVEZ Primary Care Unavailable VANDANA HERNANDEZ Referring Unavaila ble BRO CHAVEZ Primary Care Unavailable BRO CHAVEZ Primary Care Unavailable VERONICA HIGH Attending Unavailable DEBBIE ANDRE Attending Unavailable Bro Chavez DO Primary Care Provider Radha Whitten. Attending Unavailable Radha Whitten. Attending Unavailable Radha Whitten Attending Unavailable Radha Whitten Attending Unavailable Bro Chavez DO Primary Care Provider DO Bro Chavez Primary Care Provider DO Tory Joseph Attending Provider Tory Joseph Admitting Unavailable Ball, Bro Primary Care Unavailable Jake, Tory Thornton Attending Unavailable Ball, Bro Primary Care Unavailable Jake, Tory Thornton Attending Unavailable Jake, Tory Thornton Admitting Unavailable JAKE, DON Mason Attending Unavailable BALL, BRO E Primary Care Unavailable JAKE, DON Mason Attending Unavailable JAKE, DON Mason Referring Unavailable BALL, BRO E Primary Care Unavailable EDNADONATO Attending Unavailable BALL, BRO E Referring Unavailable BALL, BRO E Primary Care Unavailable ENGELER, G RAZ Attending Unavailable BALL, BRO E Primary Care Unavailable BALL, BRO E Primary Care Unavailable BALL, BRO E Primary Care Unavailable ENGELER, G RAZ Attending Unavailable BALL, BRO E Primary Care Unavailable BALL, BRO E Primary Care Unavailable EDNA, DONATO Referring Unavailable BALL, BRO E Primary Care Unavailable EDNA, DONATO Referring Unavailable BALL, BRO E Primary Care Unavailable Allergies Allergy Classification Reported Allergen(s) Allergy Type Date of Onset Reaction(s) Facility (15 sources) Ciprofloxacin; Translations: [ciprofloxacin] Drug Allergy 8 Unknown [facility] Repository (1 source) No Known Medication Allergies; Translations: [No Known Medication Allergies] Propensity to adverse reactions (disorder) [facility] Repository Medications Current Medications Medication Drug Class(es) Dates Sig (Normalized) Sig (Original) allopurinol 300 mg oral tablet (20 sources) Xanthine Oxidase Inhibitor Start: 03-09-2024 End: 07-23-2024 Allopurinol 300 mg tablet Discontinued 0 .ROUTE .COMPLEX 90 March 09, 2024 2:50pm July 23, 2024 7:57am TAKE 1 TABLET DAILY Start: 04-22-2019 End: 03-09-2024 take 1 tablet by mouth once daily in the evening Allopurinol 300 mg tablet Active 300 MG PO Every evening July 22, 2024 11:00pm Comment on above: Take 300 mg by mouth once daily. aspirin 81 mg delayed release oral tablet (20 sources) Platelet Aggregation Inhibitor, Nonsteroidal Anti-inflammatory Drug Start: 02-11-2024 take 1 tablet by mouth once daily in the evening Aspirin 81 mg tablet,delayed release (DR/EC) Active 81 MG PO Every evening February 10, 2024 11:00pm Start: 03-28-2022 aspirin 81 mg Chew Tab mg tab(s), Chewed, Daily, Refills(s) 0 Start Date: 03/28/22 Status: Ordered take 1 tablet by sylwia th once daily Aspirin 81 81 MG 1 tablet Orally Once a day Active Comment on above: Take 81 mg by mouth once daily. atorvastatin 20 mg oral tablet (20 sources) HMG-CoA Reductase Inhibitor Start: 03-09-2024 End: 07-23-2024 Atorvastatin 20 mg tablet Discontinued 0 .ROUTE .COMPLEX 90 March 09, 2024 2:50pm July 23, 2024 7:48am TAKE 1 TABLET DAILY IN THE EVENING Start: 10-21-2019 End: 10-29-2025 take 1 tablet by mouth once daily atorvastatin (Lipitor) 20 mg tablet Indications: Pure hypercholesterolemia Take 1 tablet (20 mg) by mouth once daily. 90 tablet 3 10/29/2024 10/29/2025 Active Comment on above: Take 20 mg by mouth once daily. carvedilol 6.25 mg oral tablet (20 sources) alpha-Adrenergic Rachid, beta-Adrenergic Rachid Start: 03-09-2024 Carvedilol 6.25 mg tablet Active 0 .ROUTE .COMPLEX 180 March 09, 2024 2:50pm TAKE 1 TABLET TWICE A DAY WITH FOOD Start: 02-11-2024 End: 03-09-2024 take 1 tablet by mouth twice daily Carvedilol 6.25 mg tablet Discontinued 6.25 MG PO Twice daily February 10, 2024 11:00pm March 09, 2024 2:50pm Start: 01-04-2022 carvedilol (CO REG) 12.5 mg tablet 6.25 mg twice daily with meals. 0 01/04/2022 Active Start: 01-04-2022 carvedilol (CO REG) 6.25 mg tablet Start: 04-22-2019 take 1 tablet by sylwia twice daily carvedilol 12.5 mg Tab 12.5 mg = 1 tab(s), Oral, BID, Refills(s) 0 Start Date: 04/22/19 Status: Ordered Comment on above: twice daily with emmanuel ls. 6.25 mg twice daily with meals. furosemide 20 mg oral tablet (5 sources) Loop Diuretic Start: 10-07-20 End: 10-29-19 take 1 tablet by mouth once daily furosemide (Lasix) 20 mg tablet Indications: Edema, unspecified type Take 1 tablet (20 mg) by mouth once daily. 90 tablet 3 10/29/2024 10/29/2025 Active gemtesa 75 mg tablet (4 sources) take 1 tablet by mouth every twenty-four hours Gemtesa 75 MG 1 tablet Orally Once a day for 90 days Active GEMTESA 75 mg tablet (6 sources) Start: 11-12-19 GEMTESA 75 mg tablet hydroCHLOROthiazide 25 mg / lisinopril 20 mg oral tablet (20 sources) Thiazide Diuretic, Angiotensin Converting Enzyme Inhibitor Start: 03-11-20 take 1 tablet by mouth once daily lisinopriL-hydroch lorothiazide 20-25 mg tablet Take 1 tablet by mouth once daily. 03/11/2024 Active Start: 03-09-2024 End: 10-10-2024 Lisinopril-Hydrochlorothiazi de 20-25 mg tablet Discontinued 0 .ROUTE .COMPLEX 90 March 11, 2024 12:10pm October 10, 2024 3:33pm TAKE 1 TABLET ONCE DAILY Start: 09-27-2021 End: 03-09-2024 take 1 tablet by mouth once daily Lisinopril-Hydrochlorothiazide 20-25 mg tablet Discontinued 1 TAB PO Daily February 10, 2024 11:00pm March 09, 2024 2:50pm Comment on above: Take 1 tablet by sylwia th once daily. 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 90 tablet 3 10/29/2024 10/29/2025 Active ketoconazole 20 mg/ml topical cream (17 sources) Azole Antifungal Start: 06-29-20 ketoconazole (NIZORAL) 2 % cream Apply to affected area twice daily. 30 g 1 06/29/2021 Active Comment on above: Apply to affected ar ea twice daily. 24 hr mirabegron 25 mg extended release oral tablet (1 source) beta3-Adrenergic Agonist Start: 11-08-19 take 1 tablet by mouth once daily Myrbetriq 25 mg oral tablet, extended release 25 mg = 1 tab(s), Oral, Daily, # 30 tab(s), Refills(s) 11, Pharmacy: [facility] [id number], 177, cm, 11/08/22 11:01:00 EST, Height/Length Dosing, 114, kg, 11/08/22 11:00:00 EST, Weight Dosing Start Date: 11/08/22 Status: Ordered nitroglycerin 0.4 mg sublingual tablet (7 sources) Nitrate Vasodilator Start: 07-15-20 End: 10-17-19 nitroglycerin (Nitrostat) 0.[address] 1 tablet (0.4 mg) under the tongue every 5 minutes if needed for chest pain. 07/15/2024 Active paxlovid (300/100) 20 x 150 mg & 10 x 100mg tablet therapy pack (6 sources) Start: 08-22-20 take 3 tablets by mouth every twelve hours Paxlovid (300/100) 20 x 150 MG & 10 x 100MG 3 tablets Orally twice a day for 5 days Aug, Active potassium chloride 10 meq extended release oral capsule (2 sources) Start: 10-10-20 take 1 capsule by mouth once daily Potassium Chloride 10 mEq capsule, extended release Active 10 MEQ PO Daily October 10, 2024 12:00am Start: 10-07-2024 End: 10-29-2024 take 1 tablet by mouth once daily potassium chloride CR (Klor-Con) 10 mEq ER tablet Indications: Edema, unspecified type Take 1 tablet (10 mEq) by mouth once daily. Do not crush, chew, or split. 90 tablet 3 10/07/2024 10/29/2024 Discontinued (Therapy completed) predniSONE 20 mg oral tablet (20 sources) Start: 02-05-2023 take 1 tablet by mouth twice daily predniSONE 20 MG 1 tablet Orally twice daily w/ food for 5 days Jan, Active spironolactone 25 mg oral tablet (5 sources) Aldosterone Antagonist Start: 10-10-2024 End: 10-27-2024 take 1 tablet by mouth once daily Spironolactone 25 mg tablet Active 25 MG PO Daily 14 October 27, 2024 9:26am Start: 10-07-2024 End: 10-29-2025 take 0.5 tablet by mouth once daily spironolactone (Aldactone) 25 mg tablet Indications: Primary hypertension , Edema, unspecified type Take 0.5 tablets (12.5 mg) by mouth once daily. 45 tablet 3 10/29/2024 10/29/2025 Active triamcinolone acetonide 1 mg/ml topical cream (20 sources) Corticosteroid Start: 07-13-2023 Triamcinolone Acetonide 0.1 % 1 application Externally bid for 10 days Jun, Active Start: 07-13-2023 Triamcinolone Acetonide 0.1 % 1 application Externally bid for 10 days Jun, Active Start: 07-13-2023 Kenalog-40 Jun, 60 mg Triamcinolone Ac etonide 0.5 % 1 application Externally Twice a day Active valsartan 40 mg oral tablet (5 sources) Angiotensin 2 Receptor Rachid Start: 10-07-2024 End: 10-29-2025 take 1 tablet by mouth twice daily valsartan (Diovan) 40 mg tablet Indications: Primary hypertension , Edema, unspecified type Take 1 tablet (40 mg) by mouth 2 times a day. 180 tablet 3 10/29/2024 10/29/2025 Active vibegron 75 MG Oral Tablet [Gemtesa] (2 sources) Start: 08-15-2023 take 1 tablet by mouth once daily Gemtesa 75 mg oral tablet 75 mg = 1 tab(s), Oral, Daily, # 30 tab(s), Refills(s) 11, Pharmacy: [facility] [id number], 177, cm, 08/15/23 8:49:00 EDT, Height/Length Dosing, 99, kg, 08/15/23 8:49:00 EDT, Weight Dosing Start Date: 08/15/23 Status: Ordered zolpidem tartrate 5 mg oral tablet (9 sources) gamma-Aminobutyric Acid-ergic Agonist Start: 04-19-2021 take 1 mg [...] on above: Take 2 tablets by mo [facility] every 6 hours as needed for pain. amLODIPine 5 mg oral tablet (20 sources) Dihydropyridine Calcium Channel Rachid Start: 07-03-2024 End: 10-10-2024 take 1 tablet by mouth twice daily Amlodipine 5 mg tablet Discontinued 5 MG PO Twice daily 180 July 30, 2024 3:47pm October 10, 2024 3:32pm Start: 07-03-2024 End: 07-03-2024 take 1 tablet by mouth once daily Amlodipine 5 mg tablet Discontinued 5 MG PO Daily July 03, 2024 11:35am July 03, 2024 11:56am Start: 03-09-2024 End: 07-03-2024 Amlodipine 5 mg tablet Disco ntinued 0 .ROUTE .COMPLEX March 09, 2024 2:50pm July 03, 2024 11:36am TAKE 1 TABLET DAILY Start: 02-11-2024 End: 03-09-2024 take 1 tablet by mouth once daily Amlodipine 5 mg tablet Discontinued 5 MG PO Daily February 10, 2024 11:00pm March 09, 2024 2:50pm Start: 04-22-2019 take 1 tablet by sylwia th twice daily amLODIPine 5 mg Tab 5 mg = 1 tab(s), Oral, BID, Refills(s) 0 Start Date: 04/22/19 Status: Ordered Start: 04-22-2019 take 1 tablet by sylwia once daily amLODIPine 5 mg Tab 5 mg = 1 tab(s), Oral, Daily, Refills(s) 0 Start Date: 04/22/19 Status: Ordered take 0.5 tablet by [facility] twice daily amLODIPine (Norvasc) 5 mg tablet Take 0.5 tablets (2.5 mg) by mouth 2 times a day. Active Comment on above: Take by mouth once d aily. Take by mouth two ti mes a day. cefdinir 300 mg oral capsule (2 sources) Cephalosporin Antibacterial Start: End: take 1 capsule by mouth twice daily cefdinir (OMNICEF) 300 mg capsule Take 1 capsule by mouth twice daily. 10 capsule 0 03/20/2023 11/20/2023 Discontinued (Course of therapy completed) Comment on above: Take 1 capsule by mo [facility] twice daily. iv contrast (will be provided with radiology test) (1 source) Start: End: iv contrast (will be provided with radiology [...] contrast administration guidelines link. lactobacillus rhamnosus gg [id number] unt oral capsule (2 sources) Start: End: take 1 capsule by mouth once daily lactobacillus rhamnosus (CULTURELLE) 10 billion cell capsule Take 1 capsule by mouth once daily. 14 capsule 0 03/02/2023 11/20/2023 Discontinued (Discontinued by Patient) Comment on above: Take 1 capsule by mo [facility] once daily. 1.5 ml leuprolide acetate 30 mg/ml prefilled syringe (10 sources) Gonadotropin Releasing Hormone Receptor Agonist End: 023 leuprolide, 6 month, (LUPRON DEPOT, 6 MONTH,) sykt IM syringe kit Inject intramuscularly as directed. 0 02/14/2023 Discontinued (Course of therapy completed) leuprolide, 6 mo nth, (LUPRON DEPOT, 6 MONTH,) sykt IM syringe kit Inject 45 mg intramuscularly as directed. 0 Active Comment on above: Inject 45 mg intramu scularly as directed. Inject intramuscular ly as directed. lisinopril 10 mg oral tablet (20 sources) Angiotensin Converting Enzyme Inhibitor Start: 03-09-2024 End: 10-27-2024 Lisinopril 10 mg tablet Discontinued 0 .ROUTE .COMPLEX 90 March 09, 2024 2:50pm October 27, 2024 9:21am TAKE 1 TABLET DAILY - TAKE ALONG WITH LISINOPRIL/HCTZ Start: 03-28-2022 End: 10-29-2024 take 1 tablet by mouth once daily lisinopril 10 mg tablet Take 1 tablet (10 mg) by mouth once daily. 02/11/2024 10/29/2024 Discontinued (Therapy completed) Start: 03-28-2022 lisinopril (ZE STRIL) 10 mg tablet q 24 HR. 0 03/28/2022 Active Comment on above: Take 10 mg by mouth once daily. q 24 HR. melatonin 3 mg oral tablet (3 sources) End: take 1 tablet by mouth once daily at bedtime melatonin 3 mg tablet Take 3 mg by mouth daily at bedtime. 0 11/20/2023 Discontinued (Discontinued by Patient) Comment on above: Take 3 mg by mouth d aily at bedtime. mupirocin 0.02 mg/mg topical ointment (20 sources) RNA Synthetase Inhibitor Antibacterial Start: End: Mupirocin 2 % ointment Discontinued 1 APPLIC TOPICAL Twice daily July 18, 2024 11:15am October 10, 2024 3:33pm Start: 07-13-2023 Mupirocin 2 % 1 application Nasal septum Twice a day for 10 days Jun, Active Vibegron (8 sources) Start: 02-11-2024 End: 07-23-2024 take 1 tablet by mouth once daily Vibegron 75 mg tablet Discontinued 75 MG PO Daily February 10, 2024 11:00pm July 23, 2024 7:48am Start: 02-11-2024 End: 07-23-2024 take 75 mg by mouth once daily Vibegron Discontinued 7 5 MG PO Daily February 11, 2024 12:00am July 23, 2024 8:48am Start: 02-11-2024 take 75 mg by mouth once daily Vibegron Active 75 MG PO Daily February 11, 2024 12:00am Problems Active Problems Problem Classification Problem Date Documented Da te Episodic/Chronic Calculus of urinary tract (20 sources) History of calculus of kidney; Translations: [Personal history of urinary calculi] Onset: 03-28-2022 Episodic Cancer of prostate (20 sources) Malignant tumor of prostate; Translations: [Malignant neoplasm of prostate] Onset: 12-04-2022 Chronic Comment on above: dx: 2018, radical pr ostatectomy 06/2018, recurrence 2020 requiring Lupron, radiation therapy Cancer of prostate (20 sources) Personal history of malignant neoplasm of prostate; Translations: [History of malignant neoplasm of prostate] Onset: 03-28-2022 Episodic Cardiac dysrhythmias (10 sources) Multiple premature ventricular complexes; Translations: [Ventricular premature depolarization] Onset: 10-29-2024 07-27-2024 Chronic Comment on above: Holter w/ 2% VE mindi en: PVC, couplets - 07/2024 Conduction disorders (6 sources) Right bundle branch block; Translations: [Unspecified right bundle-branch block] Onset: 07-22-2024 07-22-2024 Chronic Congestive heart failure; nonhypertensive (6 sources) Chronic systolic heart failure; Translations: [Chronic systolic (congestive) heart failure] 07-27-2024 Chronic Coronary atherosclerosis and other heart disease (17 sources) Ischemic myocardial dysfunction; Translations: [Ischemic cardiomyopathy] Onset: 10-29-2024 07-27-2024 Chronic Comment on above: LHC: mild triple ves joyce disease, subtotaled diagonose br, LVEF 45% - 07/2024 Deficiency and other anemia (3 sources) Anemia, unspecified; Translations: [Anemia, unspecified] Episodic Deficiency and other anemia (8 sources) Anemia; Translations: [Anemia, unspecified] 01-29-2024 Episodic Delirium, dementia, and amnestic and other cognitive disorders (2 sources) Delirium due to known physiological condition Chronic Disorders of lipid metabolism (20 sources) Pure hypercholesterolemia ; Translations: [Familial hypercholesterolemia ] Onset: 06-27-2024 Chronic Essential hypertension (20 sources) Hypertensive disorder; [...] 04-22-2019 Chronic Other aftercare (2 sources) Other residential (current) drug therapy Episodic Other and unspecified [...] Other hereditary and degenerative nervous system conditions (20 sources) Impaired cognition; Translations: [Mild cognitive impairment, so stated] 02-12-2024 Chronic Other hereditary and degenerative nervous system conditions (11 sources) Mild cognitive impairment, so stated; Translations: [...] index 30+ - obesity; Translations: [Obesity, unspecified] Onset: 07-22-2024 11-08-2022 Chronic Other nutritional; endocrine; and metabolic disorders (8 sources) Obesity, unspecified; Translations: [Obesity, unspecified] Chronic Other nutritional; endocrine; and metabolic disorders (9 sources) Obese class I; Translations: [Obesity, unspecified] Onset: 02-11-2023 Chronic Other nutritional; endocrine; and metabolic disorders (7 sources) Severe obesity; Translations: [Morbid (severe) obesity due to excess calories] Onset: 03-26-2023 03-26-2023 Chronic Other nutritional; endocrine; and metabolic disorders (7 sources) Obesity; Translations: [Obesity, unspecified] 02-12-2024 Chronic Other nutritional; endocrine; and metabolic disorders (2 sources) Body mass index (BMI) 33.0-33.9, adult; Translations: [Body mass index (BMI) 33.0-33.9, adult] Onset: 10-29-2024 Chronic Other nutritional; endocrine; and metabolic disorders (2 sources) Body mass index (BMI) 32.0-32.9, adult; Translations: [Body mass index (BMI) 32.0-32.9, adult] Onset: 07-22-2024 Chronic Other upper respiratory disease (7 sources) Seasonal allergic rhinitis; Translations: [Other seasonal allergic rhinitis] 04-09-2024 Chronic Other upper respiratory disease (2 sources) Epistaxis Episodic Residual codes; unclassified (20 sources) Obstructive sleep apnea syndrome; Translations: [Obstructive sleep apnea (adult) (pediatric)] Onset: 02-14-2023 Chronic Residual codes; unclassified (18 sources) Obstructive sleep apnea (adult) (pediatric); Translations: [Obstructive sleep apnea (adult)(pediatric)] Onset: 07-22-2024 Chronic Residual codes; unclassified (2 sources) Other specified postprocedural states Episodic Residual codes; unclassified (2 sources) Localized edema Episodic Residual codes; unclassified (1 source) History of hernia repair; Translations: [Other specified postprocedural states] 04-01-2024 Episodic Residual codes; unclassified (1 source) Edema; Translations: [Edema, unspecified] 10-29-2024 Episodic Residual codes; unclassified (2 sources) Edema, unspecified; Translations: [Edema, unspecified] Onset: 10-29-2024 Episodic Sprains and strains (1 source) Strain of unspecified muscle(s) and tendon(s) at lower leg level, right leg, initial encounter Episodic Transient cerebral ischemia (20 sources) Amaurosis fugax of right eye; Translations: [Amaurosis fugax] 02-10-2024 Chronic Past or Other Problems Problem Classification Problem Date Documented Date Episodic/Chronic Abdominal hernia (20 sources) Inguinal hernia; Translations: [Unilateral inguinal hernia, without obstruction or gangrene, not specified as recurrent] Onset: 11-08-2022 Resolved: 03-02-2023 Episodic Cardiac dysrhythmias (20 sources) Bradycardia; Translations: [Bradycardia, unspecified] Onset: 07-22-2024 Resolved: 10-29-2024 06-30-2024 Episodic Fluid and electrolyte disorders (5 sources) Hypokalemia; Translations: [Hypokalemia] Onset: 02-26-2023 Resolved: 03-02-2023 03-02-2023 Episodic Nonspecific chest pain (20 sources) Chest pain; Translations: [Chest pain, unspecified] Onset: 07-22-2024 06-30-2024 Episodic Other diseases of veins and lymphatics (1 source) Scrotal varices; Translations: [SCROTAL VARICES] Onset: 10-14-2022 Episodic Other nervous system disorders (5 sources) Postoperative pain ; Translations: [Other acute postprocedural pain] Onset: 02-26-2023 Resolved: 03-02-2023 03-02-2023 Episodic Other nutritional; endocrine; and metabolic disorders (5 sources) Hypophosphatemia; Translations: [Other disorders of phosphorus metabolism] Onset: 02-26-2023 Resolved: 03-02-2023 03-02-2023 Chronic Other screening for suspected conditions (not mental disorders or infectious disease) (19 sources) Raised prostate specific antigen; Translations: [Thallium stress test abnormal] Onset: 07-22-2024 10-21-2020 Episodic Unclassified (2 sources) Onset: 07-22-2024 07-22-2024 Viral infection (2 sources) COVID-19 Results Test Name Value Interpretation Reference Range Facility [facility] Prostate specific Ag [Mass/Vol] ng/mL Normal <2.60 [facility] Comment on above: Order Comment: Speci men Type: BLOOD SPECIMEN Ordering Facility: [facility] Address: [address] [place] [address] Result Comment: Charito sanchez PSA test methodology used is the Electrochemiluminescence Immunoassay by [employer]. Total PSA values by differing methodologies cannot be interchanged. Performed By: #### 2 [id number] #### [facility] CLIA [id number] [address] [place] [address] [place] Estimated glomerular filtrat ion rate (GFR) non- Americanon 10-21-2024 GFR/1.73 sq M.predicted among non-blacks MDRD (S/P/Bld) [Vol rate/Area] Estimated glomerular filtration rate (GFR) non- >=60 mL/min/1.7 3m 2 [facility] - Chemistry and C hemistry - challengeon 10-21-2024 Calcium [Mass/Vol] 9.6 mg/dL 8.5-10.1 [facility] Chloride [Moles/Vol] 108 mmol/L High 98-107 [facility] CO2 [Moles/Vol] 34.5 mmol/L High 21.0-32.0 [facility] Creatinine [Mass/Vol] 0.90 mg/dL 0.70-1.30 [facility] GFR/1.73 sq M.predicted MDRD (S/P/Bld) [Vol rate/Area] mL/min/{1.73_m2} >=60 mL/min/1.7 3m 2 [facility] Glucose [Mass/Vol] 103 mg/dL 74-106 [facility] Natriuretic peptide B (Bld) [Mass/Vol] 137.0 pg/mL <=1800.0 [facility] Potassium [Moles/Vol] 4.1 mmol/L 3.5-5.1 [facility] Sodium [Moles/Vol] 147 mmol/L High 136-145 [facility] Urea nitrogen [Mass/Vol] 14.0 mg/dL 7.0-18.0 [facility] Urea nitrogen/Creatinine [Mass ratio] 15.6 mg/mg [facility] Serum or plasma anion gap de terminationon 10-21-2024 Anion gap [Moles/Vol] Serum or plasma an ion gap determination [facility] Activated partial thrombopla stin time (aPTT) in platelet poor plasma by coagulation aOrdered By: Tory Joseph on 07-23-2024 aPTT Coag (PPP) [Time] 29.1 s 25.1-36.5 [facility] Comment on above: A hematocrit value g reater than 55% may lead to inaccurate results in coagulation testing. Patients having hematocrit values >55% require a special collection tube for coagulation studies. Please contact the laboratory at [phone] for redraw instructions. Automated basophil %Ordered By: Tory Joseph on 07-23-2024 Basophils/100 WBC (Bld) 0.8 % Normal . [facility] Comment on above: Performed By: #### B UN, LYTES, PP, CREAT, LIPID, CBC #### [address] Automated basophil countOrde red By: Tory Joseph on 07-23-2024 Basophils (Bld) [#/Vol] 0.0 10*3/uL Normal 0.0-0.2 [facility] Comment on above: Result Comment: PERF ORMED BY: [place] [address] PATHOLOGIST MORNING [employer]OW [employer] JESUS DIOR M.D. Performed By: #### B UN, LYTES, PP, CREAT, LIPID, CBC #### [address] Automated blood monocyte cou ntOrdered By: Tory Joseph on 07-23-2024 Monocytes (Bld) [#/Vol] 0.6 10*3/uL Normal 0.0-0.8 [facility] Comment on above: Performed By: #### B UN, LYTES, PP, CREAT, LIPID, CBC #### [address] Automated eosinophil %Ordere d By: Tory Joseph on 07-23-2024 Eosinophils/100 WBC (Bld) 3.6 % Normal . [facility] Comment on above: Performed By: #### B UN, LYTES, PP, CREAT, LIPID, CBC #### [address] Automated eosinophil countOr dered By: Tory Joseph on 07-23-2024 Eosinophils (Bld) [#/Vol] 0.2 10*3/uL Normal 0.0-0.45 [facility] Comment on above: Performed By: #### B UN, LYTES, PP, CREAT, LIPID, CBC #### [facility] [address] [place] [address] [place] Automated monocyte %Ordered By: Tory Joseph on 07-23-2024 Monocytes/100 WBC (Bld) 12.8 % Normal . [facility] Comment on above: Performed By: #### B UN, LYTES, PP, CREAT, LIPID, CBC #### [facility] [address] Automated neutrophil %Ordere d By: Tory Joseph on 07-23-2024 Neutrophils/100 WBC (Bld) 59.9 % Normal . [facility] Comment on above: Performed By: #### B UN, LYTES, PP, CREAT, LIPID, CBC #### [place] [address] [place] Carbon dioxide, total [Moles /volume] in Serum or PlasmaOrdered By: Tory Joseph on 07-23-2024 CO2 [Moles/Vol] 32.0 mmol/L High 21.0-31.0 [facility] Comment on above: Performed By: #### B UN, LYTES, PP, CREAT, LIPID, CBC #### [facility] [address] [place] [address] [place] Chloride [Moles/volume] in S daniel or PlasmaOrdered By: Tory Joseph on 07-23-2024 Chloride [Moles/Vol] 107 mmol/L Normal 98-107 [facility] Comment on above: Performed By: #### B UN, LYTES, PP, CREAT, LIPID, CBC #### [facility] [address] [place] [address] [place] Cholesterol [Mass/volume] in Serum or PlasmaOrdered By: Tory Joseph on 07-23-2024 Cholesterol [Mass/Vol] 138 mg/dL Low 140-200 [facility] Comment on above: Chol less than 200 m g/dl low riskChol 201-239 mg/dl borderline riskChol 240 mg/dl and greater high risk Result Comment: Chol less than 200 mg/dl low risk Chol 201-239 mg/dl borderline risk Chol 240 mg/dl and greater high risk Performed By: #### B UN, LYTES, PP, CREAT, LIPID, CBC #### [address] Cholesterol in LDL Calc [Mas s/Vol]Ordered By: Tory Joseph on 07-23-2024 Cholesterol in LDL [Mass/Vol] 91 mg/dL 0-100 [facility] Comment on above: LDL ATP III CLASSIFI CATIONLDL less than 100 mg/dL OptimalLDL 100-129 mg/dL Near or above optimalLDL 130-159 mg/dL Borderline highLDL 160-189 mg/dL HighLDL greater than 189 mg/dL Very high Cholesterol in VLDL Calc [Ma ss/Vol]Ordered By: Tory Joseph on 07-23-2024 Cholesterol in VLDL [Mass/Vol] 15 mg/dL [facility] Coagulation Profileon 2023 aPTT Coag (Bld) [Time] 29.1 s Normal 25.1-36.5 [facility] Comment on above: Result Comment: A he matocrit value greater than 55% may lead to inaccurate results in coagulation testing. Patients having hematocrit values >55% require a special collection tube for coagulation studies. Please contact the laboratory at [phone] for redraw instructions. PERFORMED BY: [place] [address] PATHOLOGIST MORNING SHOW [employer] JESUS DIOR M.D. Performed By: #### B UN, LYTES, PP, CREAT, LIPID, CBC #### [address] Complete Blood Count Auto Di ffon 07-23-2024 Mean Corpuscular HGB Conc 33.4 g/dL Normal 32.5-35.6 [facility] Comment on above: Performed By: #### B UN, LYTES, PP, CREAT, LIPID, CBC #### [address] NRBC% 0.3 /100{WBC} Normal 0-0.5 [facility] Comment on above: Performed By: #### B UN, LYTES, PP, CREAT, LIPID, CBC #### [address] Creatinineon 07-23-2024 GFR/1.73 sq M.predicted MDRD (S/P/Bld) [Vol rate/Area] mL/min/{1.73_m2} Normal [facility] Comment on above: Performed By: #### B UN, LYTES, PP, CREAT, LIPID, CBC #### [address] Creatinine [Mass/volume] in Serum or PlasmaOrdered By: Tory Joseph on 07-23-2024 Creatinine [Mass/Vol] 0.66 mg/dL Low 0.70-1.30 [facility] Comment on above: Performed By: #### B UN, LYTES, PP, CREAT, LIPID, CBC #### [address] Erythrocyte distribution wid th [Ratio] by Automated countOrdered By: Tory Joseph on 07-23-2024 Erythrocyte distribution width (RBC) [Ratio] 15.8 % High 12.0-14.8 [facility] Comment on above: Performed By: #### B UN, LYTES, PP, CREAT, LIPID, CBC #### [address] Erythrocytes [#/volume] in B lood by Automated countOrdered By: Tory Joseph on 07-23-2024 RBC (Bld) [#/Vol] 4.44 10*6/uL Normal 3.90-5.60 [facility] Comment on above: Performed By: #### B UN, LYTES, PP, CREAT, LIPID, CBC #### [address] Hematocrit [Volume Fraction] of Blood by Automated countOrdered By: Tory Joseph on 07-23-2024 Hematocrit (Bld) [Volume fraction] 42.0 % Normal 38.8-50.0 [facility] Comment on above: Performed By: #### B UN, LYTES, PP, CREAT, LIPID, CBC #### [facility] [address] Hemoglobin [Mass/volume] in BloodOrdered By: Tory Joseph on 07-23-2024 Hemoglobin (Bld) [Mass/Vol] 14.0 g/dL Normal 13.0-17.0 [facility] Comment on above: Performed By: #### B UN, LYTES, PP, CREAT, LIPID, CBC #### [facility] [address] [place] [address] INR in Platelet poor plasma by Coagulation assayOrdered By: Tory Joseph on 07-23-2024 INR Coag (PPP) [Relative time] 1.1 {INR} Normal [facility] Comment on above: INR Therapeutic Rang e A) Pre- and Peroperative OAT started two weeks before surgery. NOT HIP SURGERY: 1.5 - 2.5 HIP SURGERY: 2 - 3B) Primary and secondary prevention of venous THROMBOSIS: 2 - 3C) Active venous thrombosis, pulmonary embolismand prevention of recurrent venous thrombosis: 2 - 3D) Prevention of arterial thromboembolismincluding patients with mechanical heart valves: 3 - 4.5 Result Comment: INR Therapeutic Range A) Pre- and Peroperative OAT started two weeks before surgery. NOT HIP SURGERY: 1.5 - 2.5 HIP SURGERY: 2 - 3 B) Primary and secondary prevention of venous THROMBOSIS: 2 - 3 C) Active venous thrombosis, pulmonary embolism and prevention of recurrent venous thrombosis: 2 - 3 D) Prevention of arterial thromboembolism including patients with mechanical heart valves: 3 - 4.5 Performed By: #### B UN, LYTES, PP, CREAT, LIPID, CBC #### [facility] [address] [place] [address] Leukocytes [#/volume] correc jignesh for nucleated erythrocytes in Blood by Automated counOrdered By: Tory Joseph on 07-23-2024 WBC corrected for nucl RBC Auto (Bld) [#/Vol] 4.5 10*3/uL 4.1-10.5 [facility] Leukocytes [#/volume] in Blo od by Automated countOrdered By: Tory Joseph on 07-23-2024 WBC (Bld) [#/Vol] 4.5 10*3/uL Normal 4.1-10.5 [facility] Comment on above: Performed By: #### B UN, LYTES, PP, CREAT, LIPID, CBC #### [facility] [address] Lipid Panelon 07-23-2024 LDL Cholesterol,Calculated 91 mg/dL Normal 0-100 [facility] Comment on above: Result Comment: LDL ATP III CLASSIFICATION LDL less than 100 mg/dL Optimal LDL 100-129 mg/dL Near or above optimal LDL 130-159 mg/dL Borderline high LDL 160-189 mg/dL High LDL greater than 189 mg/dL Very high Performed By: #### B UN, LYTES, PP, CREAT, LIPID, CBC #### [facility] [address] Triglyceride w/Reflex 76 mg/dL Normal 0-149 [facility] Comment on above: Result Comment: TRIG ATP III CLASSIFICATION TRIG less than 150 mg/dL Normal TRIG 150-199 mg/dL Borderline high TRIG 200-500 mg/dL High TRIG greater than 500 mg/dL Very high Standard traceable to the Center for Disease Conrtrol and Prevention (CDC) test method. Performed By: #### B UN, LYTES, PP, CREAT, LIPID, CBC #### [facility] [address] VLDL CHOLESTEROL 15 mg/dL Normal [facility] Comment on above: Performed By: #### B UN, LYTES, PP, CREAT, LIPID, CBC #### [facility] [address] [place] [address] [place] Lymphocytes [#/volume] in Bl ood by Automated countOrdered By: Tory Joseph on 07-23-2024 Lymphocytes (Bld) [#/Vol] 1.0 10*3/uL Normal 1.00-4.8 [facility] Comment on above: Performed By: #### B UN, LYTES, PP, CREAT, LIPID, CBC #### [facility] [address] [place] [address] [place] Lymphocytes/100 leukocytes i n Blood by Automated countOrdered By: Tory Joseph on 07-23-2024 Lymphocytes/100 WBC (Bld) 22.9 % Normal . [facility] Comment on above: Performed By: #### B UN, LYTES, PP, CREAT, LIPID, CBC #### [facility] [address] [place] [address] MCH [Entitic mass] by Automa jignesh countOrdered By: Tory Joseph on 07-23-2024 MCH (RBC) [Entitic mass] 31.5 pg Normal 27.5-35.2 [facility] Comment on above: Performed By: #### B UN, LYTES, PP, CREAT, LIPID, CBC #### [facility] [address] MCHC Auto (RBC) [Mass/Vol]Or dered By: Tory Joseph on 07-23-2024 MCHC (RBC) [Mass/Vol] 33.4 g/dL 32.5-35.6 [facility] MCV [Entitic volume] by Auto mated countOrdered By: Tory Joseph on 07-23-2024 MCV (RBC) [Entitic vol] 94.6 fL Normal 83.5-101 [facility] Comment on above: Performed By: #### B UN, LYTES, PP, CREAT, LIPID, CBC #### [facility] [address] [place] [address] Neutrophils [#/volume] in Bl ood by Automated countOrdered By: Tory Joseph on 07-23-2024 Neutrophils (Bld) [#/Vol] 2.7 10*3/uL Normal 1.8-7.7 [facility] Comment on above: Performed By: #### B UN, LYTES, PP, CREAT, LIPID, CBC #### [facility] [address] [place] [address] No Panel InformationOrdered By: Tory Joseph on 07-23-2024 Estimated GFR (CKD-EPI) > 60.0 mL/Min [facility] Creatinine Clearance (Chem N/A [facility] Nucleated erythrocytes [Pres ence] in Blood by Automated countOrdered By: Tory Joseph on 07-23-2024 Nucleated RBC Auto Ql (Bld) 0.3 /100{WBC} 0-0.5 [facility] Platelet mean volume [Entiti c volume] in Blood by Automated countOrdered By: Tory Joseph on 07-23-2024 Platelet mean volume (Bld) [Entitic vol] 9.2 fL Normal 6.6-10.1 [facility] Comment on above: Performed By: #### B UN, LYTES, PP, CREAT, LIPID, CBC #### [facility] [address] Platelets [#/volume] in Bloo d by Automated countOrdered By: Tory Joseph on 07-23-2024 Platelets (Bld) [#/Vol] 164 10*3/uL Normal 150-450 [facility] Comment on above: Performed By: #### B UN, LYTES, PP, CREAT, LIPID, CBC #### [address] Potassium [Moles/volume] in Serum or PlasmaOrdered By: Tory Joseph on 07-23-2024 Potassium [Moles/Vol] 4.4 mmol/L Normal 3.5-5.1 [facility] Comment on above: Performed By: #### B UN, LYTES, PP, CREAT, LIPID, CBC #### [address] Prothrombin time (PT)Ordered By: Tory Joseph on 07-23-2024 PT Coag (PPP) [Time] 12.3 s Normal 9.0-12.9 [facility] Comment on above: A hematocrit value g reater than 55% may lead to inaccurate results in coagulation testing. Patients having hematocrit values >55% require a special collection tube for coagulation studies. Please contact the laboratory at [phone] for redraw instructions. Result Comment: A he matocrit value greater than 55% may lead to inaccurate results in coagulation testing. Patients having hematocrit values >55% require a special collection tube for coagulation studies. Please contact the laboratory at [phone] for redraw instructions. Performed By: #### B UN, LYTES, PP, CREAT, LIPID, CBC #### [address] Serum or plasma anion gap de terminationOrdered By: Tory Joseph on 07-23-2024 Anion gap [Moles/Vol] 8.4 mmol/L Normal 6.0-15.0 [facility] Comment on above: Performed By: #### B UN, LYTES, PP, CREAT, LIPID, CBC #### [facility] [address] Serum or plasma high density lipoprotein (HDL) cholesterol measurementOrdered By: Tory Joseph on 07-23-2024 Cholesterol in HDL [Mass/Vol] 32 mg/dL Normal 23-92 [facility] Comment on above: HDL CHOL ATP-III CLA SSIFICATION Cardiovascular RiskHDL > or equal to 60 mg/dL LOWHDL < 40 mg/dL HIGH Result Comment: HDL CHOL ATP-III CLASSIFICATION Cardiovascular Risk HDL > or equal to 60 mg/dL LOW HDL < 40 mg/dL HIGH Performed By: #### B UN, LYTES, PP, CREAT, LIPID, CBC #### [facility] [address] Serum or plasma total choles terol/high density lipoprotein (HDL) cholesterol mass ratOrdered By: Tory Joseph on 07-23-2024 Cholesterol.total/Chol esterol in HDL [Mass ratio] 4.3 {ratio} Normal <5.0 [facility] Comment on above: Result Comment: PERF ORMED BY: [place] [address] PATHOLOGIST MORNING SHOW [employer] JESUS DIOR M.D. Performed By: #### B UN, LYTES, PP, CREAT, LIPID, CBC #### [facility] [address] [place] [address] [place] Sodium [Moles/volume] in Ser um or PlasmaOrdered By: Tory Joseph on 07-23-2024 Sodium [Moles/Vol] 143 mmol/L Normal 136-145 [facility] Comment on above: Performed By: #### B UN, LYTES, PP, CREAT, LIPID, CBC #### [facility] [address] Triglyceride [Mass/volume] i n Serum or PlasmaOrdered By: Tory Joseph on 07-23-2024 Triglyceride [Mass/Vol] 76 mg/dL 0-149 [facility] Comment on above: TRIG ATP III CLASSIF ICATIONTRIG less than 150 mg/dL NormalTRIG 150-199 mg/dL Borderline highTRIG 200-500 mg/dL High TRIG greater than 500 mg/dL Very highStandard traceable to the Center for Disease Conrtrol and Prevention (CDC) test method. Urea nitrogen [Mass/volume] in Serum or PlasmaOrdered By: Tory Joseph on 07-23-2024 Urea nitrogen [Mass/Vol] 13 mg/dL Normal 7-25 [facility] Comment on above: Performed By: #### B UN, LYTES, PP, CREAT, LIPID, CBC #### [facility] [address] ECG 12 Leadon 07-22-2024 Sinus rhythm, right bundle branch block, left anterior fascicular block, abnormal ECG [facility] Work Phone: [facility] Work Phone: Laboratory - Coagulationon 1 aPTT Coag (Bld) [Time] 61.0 s 48.2-68.6 [facility] No Panel Informationon 07-15 Troponin I High Sensitivity 23.4 pg/mL 4.0-76.1 [facility] Comment on above: CUT-OFF POINTS HAVE [...] IN CONJUNCTIONWITH OTHER DIAGNOSTIC AND CLINICAL INFORMATION. Activated partial thrombopla stin time (aPTT) in platelet poor plasma by coagulation aon 07-14-2024 aPTT Coag (PPP) [Time] 27.9 s 22.3-36.2 [facility] Basophils Auto (Bld) [#/Vol] on 07-14-2024 Basophils (Bld) [#/Vol] 0.0 10 3/uL 0.0-0.1 [facility] Basophils/100 WBC Auto (Bld) on 07-14-2024 Basophils/100 WBC (Bld) 0.7 % 0.2-2.0 [facility] Eosinophils/100 WBC Auto (Bl d)on 07-14-2024 Eosinophils/100 WBC (Bld) 3.1 % 0.9-7.0 [facility] Erythrocyte distribution wid th Auto (RBC) [Ratio]on 07-14-2024 Erythrocyte distribution width (RBC) [Ratio] 16.3 % High 11.0-15.0 [facility] Estimated glomerular filtrat ion rate (GFR) non- Americanon 07-14-2024 GFR/1.73 sq M.predicted among non-blacks MDRD (S/P/Bld) [Vol rate/Area] mL/min/{1.73_m2} >=60 [facility] Globulin Calc (S) [Mass/Vol] on 07-14-2024 Globulin (S) [Mass/Vol] 3.5 g/dL [facility] Hematocrit Auto (Bld) [Volum e fraction]on 07-14-2024 Hematocrit (Bld) [Volume fraction] 40.0 % Low 42.0-54.0 [facility] Hemoglobin [Mass/volume] in Bloodon 07-14-2024 Hemoglobin (Bld) [Mass/Vol] 13.6 g/dL Low 14.0-18.0 [facility] INR in Platelet poor plasma by Coagulation assayon 07-14-2024 INR Coag (PPP) [Relative time] 1.03 {INR} [facility] Comment on above: DESIRED INR:2.0-3.0 CONDITIONS NOT LISTED BELOW2.5-3.5 FOR PROSTHETIC HEART VALVE REPLACEMENT2.5-3.5 RECURRENT THROMBOSIS Laboratory - Chemistry and C hemistry - challengeon 07-14-2024 CK [Catalytic activity/Vol] 59 U/L 39-308 [facility] CK.MB [Mass/Vol] 0.80 ng/mL <=3.60 [facility] Albumin [Mass/Vol] 3.6 g/dL 3.4-5.0 [facility] ALP [Catalytic activity/Vol] 110 U/L 46-116 [facility] ALT [Catalytic activity/Vol] 22 U/L 16-63 [facility] AST [Catalytic activity/Vol] 15 U/L 15-37 [facility] Bilirubin [Mass/Vol] 0.4 mg/dL 0.2-1.0 [facility] Calcium [Mass/Vol] 9.7 mg/dL 8.5-10.1 [facility] Chloride [Moles/Vol] 105 mmol/L 98-107 [facility] CO2 [Moles/Vol] 32.0 mmol/L 21.0-32.0 [facility] Creatinine [Mass/Vol] 0.94 mg/dL 0.70-1.30 [facility] GFR/1.73 sq M.predicted MDRD (S/P/Bld) [Vol rate/Area] mL/min/{1.73_m2} >=60 [facility] Glucose [Mass/Vol] 110 mg/dL High 74-106 [facility] Lipase [Catalytic activity/Vol] 36.0 U/L 16.0-77.0 [facility] Natriuretic peptide B (Bld) [Mass/Vol] 127.0 pg/mL <=1800.0 [facility] Potassium [Moles/Vol] 3.3 mmol/L Low 3.5-5.1 [facility] Protein [Mass/Vol] 7.1 g/dL 6.4-8.2 [facility] Sodium [Moles/Vol] 141 mmol/L 136-145 [facility] Urea nitrogen [Mass/Vol] 14.0 mg/dL 7.0-18.0 [facility] Urea nitrogen/Creatinine [Mass ratio] 14.9 mg/mg [facility] Laboratory - Hematology and Cell countson 07-14-2024 Immature granulocytes/100 WBC (Bld) 0.2 % 0.0-0.5 [facility] Leukocytes [#/volume] correc jignesh for nucleated erythrocytes in Blood by Automated counon 07-14-2024 WBC corrected for nucl RBC Auto (Bld) [#/Vol] 6.1 10 3/uL 4.0-11.0 [facility] Lymphocytes Auto (Bld) [#/Vo l]on 07-14-2024 Lymphocytes (Bld) [#/Vol] 1.3 10 3/uL 1.2-3.8 [facility] Lymphocytes/100 WBC Auto (Bl d)on 07-14-2024 Lymphocytes/100 WBC (Bld) 21.9 % 20.5-60.0 [facility] MCH Auto (RBC) [Entitic mass ]on 07-14-2024 MCH (RBC) [Entitic mass] 31.7 pg 25.9-34.0 [facility] MCHC Auto (RBC) [Mass/Vol]on 07-14-2024 MCHC (RBC) [Mass/Vol] 34.0 g/dL 29.9-35.2 [facility] MCV Auto (RBC) [Entitic vol] on 07-14-2024 MCV (RBC) [Entitic vol] 93.2 fL 80.0-94.0 [facility] Monocytes Auto (Bld) [#/Vol] on 07-14-2024 Monocytes (Bld) [#/Vol] 0.7 10 3/uL 0.3-0.8 [facility] Monocytes/100 WBC Auto (Bld) on 07-14-2024 Monocytes/100 WBC (Bld) 11.2 % 1.7-12.0 [facility] Neutrophils Auto (Bld) [#/Vo l]on 07-14-2024 Neutrophils (Bld) [#/Vol] 3.8 10 3/uL 1.4-6.5 [facility] Neutrophils/100 WBC Auto (Bl d)on 07-14-2024 Neutrophils/100 WBC (Bld) 62.9 % 43.0-75.0 [facility] No Panel Informationon 07-14 Troponin I High Sensitivity 20.5 pg/mL 4.0-76.1 [facility] Comment on above: CUT-OFF POINTS HAVE [...] DIAGNOSTIC AND CLINICAL INFORMATION. Eosinophils # (Auto) 0.2 10 3/uL 0.0-0.7 [facility] Immature Granulocyte # (Auto) 0.01 10 3/uL 0.00-0.03 [facility] Platelet mean volume Auto (B ld) [Entitic vol]on 07-14-2024 Platelet mean volume (Bld) [Entitic vol] 10.8 fL 9.5-13.5 [facility] Platelets Auto (Bld) [#/Vol] on 07-14-2024 Platelets (Bld) [#/Vol] 167 10 3/uL 150-450 [facility] Prothrombin time (PT)on 06-17 PT Coag (PPP) [Time] 10.9 s 9.0-11.6 [facility] RBC Auto (Bld) [#/Vol]on RBC (Bld) [#/Vol] 4.29 10 6/uL Low 4.70-6.10 [facility] Serum or plasma albumin/glob ulin mass ratioon 07-14-2024 Albumin/Globulin [Mass ratio] 1.0 {ratio} [facility] Serum or plasma anion gap de terminationon 07-14-2024 Anion gap [Moles/Vol] 7.3 mmol/L [facility] Basophils Auto (Bld) [#/Vol] on 06-28-2024 Basophils (Bld) [#/Vol] 0.0 10 3/uL 0.0-0.1 [facility] Basophils/100 WBC Auto (Bld) on 06-28-2024 Basophils/100 WBC (Bld) 0.4 % 0.2-2.0 [facility] Eosinophils/100 WBC Auto (Bl d)on 06-28-2024 Eosinophils/100 WBC (Bld) 1.8 % 0.9-7.0 [facility] Erythrocyte distribution wid th Auto (RBC) [Ratio]on 06-28-2024 Erythrocyte distribution width (RBC) [Ratio] 16.0 % High 11.0-15.0 [facility] Estimated glomerular filtrat ion rate (GFR) non- Americanon 06-28-2024 GFR/1.73 sq M.predicted among non-blacks MDRD (S/P/Bld) [Vol rate/Area] mL/min/{1.73_m2} >=60 [facility] Globulin Calc (S) [Mass/Vol] on 06-28-2024 Globulin (S) [Mass/Vol] 3.1 g/dL [facility] Hematocrit Auto (Bld) [Volum e fraction]on 06-28-2024 Hematocrit (Bld) [Volume fraction] 42.0 % 42.0-54.0 [facility] Hemoglobin [Mass/volume] in Bloodon 06-28-2024 Hemoglobin (Bld) [Mass/Vol] 14.2 g/dL 14.0-18.0 [facility] Laboratory - Chemistry and C hemistry - challengeon 06-28-2024 Albumin [Mass/Vol] 3.4 g/dL 3.4-5.0 [facility] ALP [Catalytic activity/Vol] 107 U/L 46-116 [facility] ALT [Catalytic activity/Vol] 25 U/L 16-63 [facility] AST [Catalytic activity/Vol] 18 U/L 15-37 [facility] Bilirubin [Mass/Vol] 1.0 mg/dL 0.2-1.0 [facility] Calcium [Mass/Vol] 9.3 mg/dL 8.5-10.1 [facility] Chloride [Moles/Vol] 107 mmol/L 98-107 [facility] CO2 [Moles/Vol] 30.9 mmol/L 21.0-32.0 [facility] Creatinine [Mass/Vol] 0.67 mg/dL Low 0.70-1.30 [facility] GFR/1.73 sq M.predicted MDRD (S/P/Bld) [Vol rate/Area] mL/min/{1.73_m2} >=60 [facility] Glucose [Mass/Vol] 99 mg/dL 74-106 [facility] Potassium [Moles/Vol] 3.7 mmol/L 3.5-5.1 [facility] Protein [Mass/Vol] 6.5 g/dL 6.4-8.2 [facility] Sodium [Moles/Vol] 144 mmol/L 136-145 [facility] Urea nitrogen [Mass/Vol] 14.0 mg/dL 7.0-18.0 [facility] Urea nitrogen/Creatinine [Mass ratio] 20.9 mg/mg [facility] Laboratory - Hematology and Cell countson 06-28-2024 Immature granulocytes/100 WBC (Bld) 0.4 % 0.0-0.5 [facility] Leukocytes [#/volume] correc jignseh for nucleated erythrocytes in Blood by Automated counon 06-28-2024 WBC corrected for nucl RBC Auto (Bld) [#/Vol] 5.0 10 3/uL 4.0-11.0 [facility] Lymphocytes Auto (Bld) [#/Vo l]on 06-28-2024 Lymphocytes (Bld) [#/Vol] 1.0 10 3/uL Low 1.2-3.8 [facility] Lymphocytes/100 WBC Auto (Bl d)on 06-28-2024 Lymphocytes/100 WBC (Bld) 19.6 % Low 20.5-60.0 [facility] MCH Auto (RBC) [Entitic mass ]on 06-28-2024 MCH (RBC) [Entitic mass] 31.3 pg 25.9-34.0 [facility] MCHC Auto (RBC) [Mass/Vol]on 06-28-2024 MCHC (RBC) [Mass/Vol] 33.8 g/dL 29.9-35.2 [facility] MCV Auto (RBC) [Entitic vol] on 06-28-2024 MCV (RBC) [Entitic vol] 92.7 fL 80.0-94.0 [facility] Monocytes Auto (Bld) [#/Vol] on 06-28-2024 Monocytes (Bld) [#/Vol] 0.5 10 3/uL 0.3-0.8 [facility] Monocytes/100 WBC Auto (Bld) on 06-28-2024 Monocytes/100 WBC (Bld) 10.4 % 1.7-12.0 [facility] Neutrophils Auto (Bld) [#/Vo l]on 06-28-2024 Neutrophils (Bld) [#/Vol] 3.4 10 3/uL 1.4-6.5 [facility] Neutrophils/100 WBC Auto (Bl d)on 06-28-2024 Neutrophils/100 WBC (Bld) 67.4 % 43.0-75.0 [facility] No Panel Informationon 06-28 Eosinophils # (Auto) 0.1 10 3/uL 0.0-0.7 [facility] Immature Granulocyte # (Auto) 0.02 10 3/uL 0.00-0.03 [facility] Troponin I High Sensitivity 13.4 pg/mL 4.0-76.1 [facility] Comment on above: CUT-OFF POINTS HAVE [...] volume (Bld) [Entitic vol] 10.3 fL 9.5-13.5 [facility] Platelets Auto (Bld) [#/Vol] on 06-28-2024 Platelets (Bld) [#/Vol] 161 10 3/uL 150-450 [facility] RBC Auto (Bld) [#/Vol]on RBC (Bld) [#/Vol] 4.53 10 6/uL Low 4.70-6.10 [facility] Serum or plasma albumin/glob ulin mass ratioon 06-28-2024 Albumin/Globulin [Mass ratio] 1.1 {ratio} [facility] Serum or plasma anion gap de terminationon 06-28-2024 Anion gap [Moles/Vol] 9.8 mmol/L [facility] Basophils Auto (Bld) [#/Vol] on 06-27-2024 Basophils (Bld) [#/Vol] 0.0 10 3/uL 0.0-0.1 [facility] Basophils/100 WBC Auto (Bld) on 06-27-2024 Basophils/100 WBC (Bld) 0.8 % 0.2-2.0 [facility] Cholesterol in LDL Calc [Mas s/Vol]on 06-27-2024 Cholesterol in LDL [Mass/Vol] 82.6 mg/dL [facility] Comment on above: <100 mg/dl [id number] 0-129 mg/dl NEAR OR ABOVE [id number] mg/dl BORDERLINE [id number] mg/dl HIGH>190 mg/dl VERY HIGH Cholesterol in VLDL Calc [Ma ss/Vol]on 06-27-2024 Cholesterol in VLDL [Mass/Vol] 15.4 mg/dL [facility] Eosinophils/100 WBC Auto (Bl d)on 06-27-2024 Eosinophils/100 WBC (Bld) 2.7 % 0.9-7.0 [facility] Erythrocyte distribution wid th Auto (RBC) [Ratio]on 06-27-2024 Erythrocyte distribution width (RBC) [Ratio] 16.2 % High 11.0-15.0 [facility] Estimated glomerular filtrat ion rate (GFR) non- Americanon 06-27-2024 GFR/1.73 sq M.predicted among non-blacks MDRD (S/P/Bld) [Vol rate/Area] mL/min/{1.73_m2} >=60 [facility] Globulin Calc (S) [Mass/Vol] on 06-27-2024 Globulin (S) [Mass/Vol] 3.4 g/dL [facility] Glucose mean value [Mass/vol ume] in Blood Estimated from glycated hemoglobinon 06-27-2024 Average glucose Estimated from glycated hemoglobin (Bld) [Mass/Vol] 114 mg/dL [facility] Hematocrit Auto (Bld) [Volum e fraction]on 06-27-2024 Hematocrit (Bld) [Volume fraction] 40.7 % Low 42.0-54.0 [facility] Hemoglobin [Mass/volume] in Bloodon 06-27-2024 Hemoglobin (Bld) [Mass/Vol] 13.9 g/dL Low 14.0-18.0 [facility] Laboratory - Chemistry and C hemistry - challengeon 06-27-2024 Albumin [Mass/Vol] 3.6 g/dL 3.4-5.0 [facility] ALP [Catalytic activity/Vol] 101 U/L 46-116 [facility] ALT [Catalytic activity/Vol] 25 U/L 16-63 [facility] AST [Catalytic activity/Vol] 16 U/L 15-37 [facility] Bilirubin [Mass/Vol] 0.8 mg/dL 0.2-1.0 [facility] Calcium [Mass/Vol] 9.5 mg/dL 8.5-10.1 [facility] Chloride [Moles/Vol] 105 mmol/L 98-107 [facility] Cholesterol [Mass/Vol] 139 mg/dL <=200 [facility] Cholesterol in HDL [Mass/Vol] 41 mg/dL 40-60 [facility] Comment on above: > or =60 mg/dl - LOW CARDIOVASCULAR RISK<40 mg/dl - HIGH CARDIOVASCULAR RISK CO2 [Moles/Vol] 31.8 mmol/L 21.0-32.0 [facility] Creatinine [Mass/Vol] 0.65 mg/dL Low 0.70-1.30 [facility] GFR/1.73 sq M.predicted MDRD (S/P/Bld) [Vol rate/Area] mL/min/{1.73_m2} >=60 [facility] Glucose [Mass/Vol] 107 mg/dL High 74-106 [facility] Potassium [Moles/Vol] 3.6 mmol/L 3.5-5.1 [facility] Protein [Mass/Vol] 7.0 g/dL 6.4-8.2 [facility] Sodium [Moles/Vol] 141 mmol/L 136-145 [facility] Triglyceride [Mass/Vol] 77 mg/dL <=150 [facility] Urea nitrogen [Mass/Vol] 16.0 mg/dL 7.0-18.0 [facility] Urea nitrogen/Creatinine [Mass ratio] 24.6 mg/mg [facility] Laboratory - Hematology and Cell countson 06-27-2024 HbA1c (Bld) [Mass fraction] 5.6 % 4.5-6.2 [facility] Comment on above: ADA RECOMMENDED LIMI T 4.0 - 6.0ADA THERAPEUTIC TARGET < 7.0ACTION SUGGESTED> 7.0 Immature granulocytes/100 WBC (Bld) 0.2 % 0.0-0.5 [facility] Leukocytes [#/volume] correc jignesh for nucleated erythrocytes in Blood by Automated counon 06-27-2024 WBC corrected for nucl RBC Auto (Bld) [#/Vol] 4.7 10 3/uL 4.0-11.0 [facility] Lymphocytes Auto (Bld) [#/Vo l]on 06-27-2024 Lymphocytes (Bld) [#/Vol] 1.0 10 3/uL Low 1.2-3.8 [facility] Lymphocytes/100 WBC Auto (Bl d)on 06-27-2024 Lymphocytes/100 WBC (Bld) 21.7 % 20.5-60.0 [facility] MCH Auto (RBC) [Entitic mass ]on 06-27-2024 MCH (RBC) [Entitic mass] 31.9 pg 25.9-34.0 [facility] MCHC Auto (RBC) [Mass/Vol]on 06-27-2024 MCHC (RBC) [Mass/Vol] 34.2 g/dL 29.9-35.2 [facility] MCV Auto (RBC) [Entitic vol] on 06-27-2024 MCV (RBC) [Entitic vol] 93.3 fL 80.0-94.0 [facility] Monocytes Auto (Bld) [#/Vol] on 06-27-2024 Monocytes (Bld) [#/Vol] 0.6 10 3/uL 0.3-0.8 [facility] Monocytes/100 WBC Auto (Bld) on 06-27-2024 Monocytes/100 WBC (Bld) 13.1 % High 1.7-12.0 [facility] Neutrophils Auto (Bld) [#/Vo l]on 06-27-2024 Neutrophils (Bld) [#/Vol] 2.9 10 3/uL 1.4-6.5 [facility] Neutrophils/100 WBC Auto (Bl d)on 06-27-2024 Neutrophils/100 WBC (Bld) 61.5 % 43.0-75.0 [facility] No Panel Informationon 06-27 Troponin I High Sensitivity 14.3 pg/mL 4.0-76.1 [facility] Comment on above: CUT-OFF POINTS HAVE [...] Eosinophils # (Auto) 0.1 10 3/uL 0.0-0.7 [facility] Immature Granulocyte # (Auto) 0.01 10 3/uL 0.00-0.03 [facility] Platelet mean volume Auto (B ld) [Entitic vol]on 06-27-2024 Platelet mean volume (Bld) [Entitic vol] 10.5 fL 9.5-13.5 [facility] Platelets Auto (Bld) [#/Vol] on 06-27-2024 Platelets (Bld) [#/Vol] 163 10 3/uL 150-450 [facility] RBC Auto (Bld) [#/Vol]on RBC (Bld) [#/Vol] 4.36 10 6/uL Low 4.70-6.10 [facility] Serum or plasma albumin/glob ulin mass ratioon 06-27-2024 Albumin/Globulin [Mass ratio] 1.1 {ratio} [facility] Serum or plasma anion gap de terminationon 06-27-2024 Anion gap [Moles/Vol] 7.8 mmol/L [facility] Serum or plasma total choles terol/high density lipoprotein (HDL) cholesterol mass kelsey 06-27-2024 Cholesterol.total/Chol esterol in HDL [Mass ratio] 3.4 {ratio} [facility] Comment on above: 3.3 - 4.4 [...] lymphadenectomy done 06/20/[address] Freedman - [id number] (Antione 4+3) +EPE,+margin. Underwent salvage radiation for [...] stone Ma (more content not included)... [facility] Comment on above: Result Comment: Elec tronically Signed By: Radha Whitten MD\.br\Date and Time Signed: 06/04/24 10:14 EDT\.br\Electronically Co-Signed By: Belkys Figueroa\.br\Date and Time Co-Signed: 06/04/24 09:23 EDT Finn 05-20-2024 CNOV Office Visit ([facility] ) -- YONI RAMIREZ ([id number]) 1945 M Date Time Provider Department 05/20/24 [...] day. lisinop (more content not included)... Normal [facility] No Panel Informationon 05-13 Prostate Specific Antigen <0.02 ng/mL <2.60 [facility] Comment on above: Total PSA test metho dology used is the Electrochemiluminescence Immunoassay by [employer]. Total PSA values by differing methodologies cannot be interchanged. PSA SerPl-mCncon 05-13-2024 Prostate specific Ag [Mass/Vol] ng/mL Normal <2.60 [facility] Comment on above: Order Comment: Speci men Type: BLOOD SPECIMEN Ordering Facility: [facility] Address: [address] [place] [address] Result Comment: Tota l PSA test methodology used is the Electrochemiluminescence Immunoassay by [employer]. Total PSA values by differing methodologies cannot be interchanged. Performed By: #### 2 857-1 #### [facility] CLIA [id number] [address] [place] [address] [place] CNOVon 04-01-2024 CNOV Office Visit ([facility] ) -- YONI RAMIREZ ([id number]) 1945 M Date Time Provider Department 04/01/24 10:00 AM DONATO BISHOP [facility] During your visit today, we recorded the following information about you: Temperature Pulse Blood pressure 97 degrees 58/minute 162/67 Donato Bishop MD 04/07/2024 4:41 PM Signed [facility] - Follow Up Visit Assessment/Plan: [...] Bishop MD 04/01/24, 10:35 AM General Surgery [facility] Medical Decision Making: Problems: Low: Stable [...] No Drains: No Referring Provider: BRO CHAVEZ [[id number]] Allergies As of Date: 04/01/2024 (No Known [...] by mouth two times a day. - lisinopril-hydroCHLOROthia zide (PRINZIDE, ZESTORETIC) 20-25 mg per tablet Take [...] for pain. (more content not included)... Normal [facility] CT ABD/PEL WO IVCONon 2023 CT ABD/PEL WO IVCON * * *Final Report* * * DATE OF EXAM: Apr 01 2024 1:54PM [facility] 0531 - CT ABD/PEL WO [...] or recurrent hernia. 2. Bilateral nonobstructive nephrolithiasis. Embedded Systems Software Developer: [facility] Transcribe Date/Time: Apr 02 2024 9:22A Dictated by : LANCE CUNHA MD This examination was interpreted and the report reviewed and electronically signed by: LANCE CUNHA MD on Apr 02 2024 9:31AM EST [id number] Normal [facility] Basophils Auto (Bld) [#/Vol] on 01-30-2024 Basophils (Bld) [#/Vol] 0.0 10 3/uL 0.0-0.1 [facility] Basophils/100 WBC Auto (Bld) on 01-30-2024 Basophils/100 WBC (Bld) 0.8 % 0.2-2.0 [facility] Eosinophils/100 WBC Auto (Bl d)on 01-30-2024 Eosinophils/100 WBC (Bld) 3.2 % 0.9-7.0 [facility] Erythrocyte distribution wid th Auto (RBC) [Ratio]on 01-30-2024 Erythrocyte distribution width (RBC) [Ratio] 16.1 % High 11.0-15.0 [facility] Hematocrit Auto (Bld) [Volum e fraction]on 01-30-2024 Hematocrit (Bld) [Volume fraction] 40.0 % Low 42.0-54.0 [facility] Hemoglobin [Mass/volume] in Bloodon 01-30-2024 Hemoglobin (Bld) [Mass/Vol] 13.0 g/dL Low 14.0-18.0 [facility] Laboratory - Chemistry and C hemistry - challengeon 01-30-2024 Ferritin [Mass/Vol] 71.0 ng/mL 26.0-388.0 [facility] Laboratory - Hematology and Cell countson 01-30-2024 Immature granulocytes/100 WBC (Bld) 0.2 % 0.0-0.5 [facility] Leukocytes [#/volume] correc jignesh for nucleated erythrocytes in Blood by Automated counon 01-30-2024 WBC corrected for nucl RBC Auto (Bld) [#/Vol] 4.9 10 3/uL 4.0-11.0 [facility] Lymphocytes Auto (Bld) [#/Vo l]on 01-30-2024 Lymphocytes (Bld) [#/Vol] 1.1 10 3/uL Low 1.2-3.8 [facility] Lymphocytes/100 WBC Auto (Bl d)on 01-30-2024 Lymphocytes/100 WBC (Bld) 21.7 % 20.5-60.0 [facility] MCH Auto (RBC) [Entitic mass ]on 01-30-2024 MCH (RBC) [Entitic mass] 30.2 pg 25.9-34.0 [facility] MCHC Auto (RBC) [Mass/Vol]on 01-30-2024 MCHC (RBC) [Mass/Vol] 32.5 g/dL 29.9-35.2 [facility] MCV Auto (RBC) [Entitic vol] on 01-30-2024 MCV (RBC) [Entitic vol] 92.8 fL 80.0-94.0 [facility] Monocytes Auto (Bld) [#/Vol] on 01-30-2024 Monocytes (Bld) [#/Vol] 0.6 10 3/uL 0.3-0.8 [facility] Monocytes/100 WBC Auto (Bld) on 01-30-2024 Monocytes/100 WBC (Bld) 11.9 % 1.7-12.0 [facility] Neutrophils Auto (Bld) [#/Vo l]on 01-30-2024 Neutrophils (Bld) [#/Vol] 3.1 10 3/uL 1.4-6.5 [facility] Neutrophils/100 WBC Auto (Bl d)on 04-17-2024 Neutrophils/100 WBC (Bld) 62.2 % 43.0-75.0 [facility] No Panel Informationon 01-29 Eosinophils # (Auto) 0.2 10 3/uL 0.0-0.7 [facility] Immature Granulocyte # (Auto) 0.01 10 3/uL 0.00-0.03 [facility] Platelet mean volume Auto (B ld) [Entitic vol]on 01-30-2024 Platelet mean volume (Bld) [Entitic vol] 11.0 fL 9.5-13.5 [facility] Platelets Auto (Bld) [#/Vol] on 01-30-2024 Platelets (Bld) [#/Vol] 190 10 3/uL 150-450 [facility] RBC Auto (Bld) [#/Vol]on RBC (Bld) [#/Vol] 4.31 10 6/uL Low 4.70-6.10 [facility] Consultation Noteon 11-30-19 Consultation Note [id number]#1.00TIFF [facility] Lab Reportson 11-28-2023 Lab Reports [id number]#1.00TIFF Normal [facility] Patient Educationon 11-28-19 Patient Education [...] provider. Document Revised: 02/09/2022 Document Reviewed: 02/09/2022 [employer] Patient Education ? 2022 [employer]. Normal [facility] Screenson 11-28-2023 Screens [id number]#1.00TIFF Normal [facility] Screens [id number]#1.00TIFF [facility] Urology Office/Clinic Noteon 11-28-2023 Urology Office/Clinic Note [...] lymphadenectomy done 06/20/[address] Freedman - [id number] (Antione 4+3) +EPE,+margin. Underwent salvage radiation for [...] scarring from prior hernia repair. Referred to [facility] General Surgery for hernia- S/P Excision [...] with genera (more content not included)... Normal [facility] Comment on above: Result Comment: Elec tronically Signed By: Radha Whitten MD\.br\Date and Time Signed: 11/28/23 17:42 EST\.br\Electronically Co-Signed By: Laura Horn\.br\Date and Time Co-Signed: 11/28/23 11:07 EST CNOVon 11-20-2023 CNOV Office Visit ([facility] ) -- YONI RAMIREZ ([id number]) 1945 M Date Time Provider Department 11/20/23 [...] Take by mouth two times a day. lisinopril-hydroCHLOROthia zide (PRINZIDE, ZESTORETIC) 20-25 mg per tablet Take 1 tablet by mouth once daily. atorva (more content not included)... Normal [facility] PSA SerPl-mCncon 11-13-2023 Prostate specific Ag [Mass/Vol] ng/mL Normal <2.60 [facility] Comment on above: Order Comment: Speci men Type: BLOOD SPECIMEN Ordering Facility: [facility] Address: [address] [place] [address] Result Comment: Charito sanchez PSA test methodology used is the Electrochemiluminescence Immunoassay by [employer]. Total PSA values by differing methodologies cannot be interchanged. Performed By: #### 2 857-1 #### [facility] CLIA [id number] [address] [place] [address] [place] Ambulatory Visit Summaryon 1 10-15-2022 Ambulatory Visit Summary YONI RAMIREZ :1945 Visit Date:08/15/2023 Ambulatory Visit Instructions Your Diagnosis Mixed incontinence Personal history of prostate cancer Hernia, inguinal Inguinal mass Varicocele present on ultrasound of scrotum Tests Performed Urnls Dip Stick Auto w/o Microscopy POC 32945 Your Care Team Attending Physician - Fish WHARTON, Radha Tejada Primary Care Physician - BRO CHAVEZ DO This Is Your Medications List vibegron (Gemtesa 75 mg oral tablet) Contact prescribing physician if questions or concerns allopurinol (allopurinol 300 mg Tab) amlodipine (amLODIPine 5 mg Tab) aspirin (aspirin 81 mg Chew Tab) atorvastatin carvedilol (carvedilol 12.5 mg Tab) hydrochlorothiazide-lisino pril (hydrochlorothiazide-lisin opril 25 mg-20 mg Tab) lisinopril (lisinopril 10 [...] Following Appointments Follow Up with Fish WHARTON, Radha Tejada, ALANNA, URO When: In 3 months Where: Medications What How Much When Instructions New vibegron (Gemtesa 75 mg oral tablet) 1 Tablets By Mouth Every day Refills: 11 Pickup at [facility] [id number] Unchanged allopurinol (allopurinol 300 mg Tab) 1 [...] prescribing physician if questions or concerns Unchanged hydrochlorothiazide-lisino pril (hydrochlorothiazide-lisin opril 25 mg-20 mg Tab) By Mouth Every day Contact prescribing physician if questions or concerns Unchanged lisinopril (lisinopril 10 mg Tab) Contact prescribing physician if questions or concerns Pharmacy Information [facility] [id number]: [address] [place], [place] [id number] [phone] Test Results Urnls Dip Stick Auto w/o Microscopy POC 69887 (08/15/2023) Bilirubin Urine Dipstick - Negative Blood Urine Dipstick - Negative Glucose Urine Dipstick - Negative Ketones Urine Dipstick - Negative Leukocytes Urine Dipstick - Negative Nitrite Urine Dipstick - Negative Protein Urine Dipstick - Negative Specific Vona Urine Dipstick - 1.025 Urine Appearance Urine [...] while sitting, (more content not included)... Normal [facility] Patient Educationon 08-15-20 Patient Education [...] provider. Document Revised: 02/09/2022 Document Reviewed: 02/09/2022 [employer] Patient Education ? 2022 [employer]. [facility] Screenson 08-15-2023 Screens [id number]#1.00TIFF [facility] Screens [id number]#1.00TIFF [facility] Urology Office/Clinic Noteon 08-15-2023 Urology Office/Clinic Note [...] lymphadenectomy done 06/20/[address] Freedman - [id number] ([place] 4+3) +EPE,+margin. Underwent salvage ra (more content not included)... Normal [facility] Comment on above: Result Comment: Elec tronically Signed By: Fish WHARTON, Radha Tejada\.br\Date and Time Signed: 08/15/23 21:17 EDT\.br\Electronically Co-Signed By: Savanna Rosenthal.br\Date and Time Co-Signed: 08/15/23 09:35 EDT Basic metabolic 2000 panelon 02-28-2023 Anion gap [Moles/Vol] 12 mmol/L Normal 9-18 [facility] Comment on above: Order Comment: Speci men Type: BLOOD SPECIMEN Ordering Facility: [facility] Address: [address] [place], [place] [address] [address] Performed By: #### 2 4320-2, #### [facility] CLIA [id number] [place] [address] [place] Calcium [Mass/Vol] 8.7 mg/dL Normal 8.5-10.2 [facility] Comment on above: Order Comment: Speci men Type: BLOOD SPECIMEN Ordering Facility: [facility] Address: [address] Performed By: #### 2 4320-2, #### [facility] CLIA [id number] [address] [place] [address] [place] Chloride [Moles/Vol] 103 mmol/L Normal 97-105 [facility] Comment on above: Order Comment: Speci men Type: BLOOD SPECIMEN Ordering Facility: [facility] Address: [address] Performed By: #### 2 4320-11, #### [facility] CLIA [id number] [address] [place] [address] [place] CO2 [Moles/Vol] 24 mmol/L Normal 22-30 [facility] Comment on above: Order Comment: Speci men Type: BLOOD SPECIMEN Ordering Facility: [facility] Address: [address] [place] [address] Performed By: #### 2 4320-11, #### [facility] CLIA [id number] [address] [place] [address] [place] Creatinine [Mass/Vol] 0.49 mg/dL Low 0.73-1.22 [facility] Comment on above: Order Comment: Speci men Type: BLOOD SPECIMEN Ordering Facility: [facility] Address: [address] Performed By: #### 2 2, #### [facility] CLIA [id number] [place] [address] [place] ESTIMATED GLOMERULAR FILTRATION RATE 107 mL/min/1.73m??? Normal >=60 [facility] Comment on above: Order Comment: John chan Type: BLOOD SPECIMEN Ordering Facility: [facility] Address: [address] [id number] Result Comment: Trena mated Glomerular Filtration Rate [...] GFR. Performed By: #### 2 4321-2, #### [facility] CLIA [id number] [place] [address] [place] Glucose [Mass/Vol] 92 mg/dL Normal 74-99 [facility] Comment on above: Order Comment: John chan Type: BLOOD SPECIMEN Ordering Facility: [facility] Address: [address] [place] [address] Result Comment: The [place] [employer] Association (ADA) provides guidance for cutoff [...] Standards of Medical Care in Diabetes 2016, [place] [employer]. Diabetes Care. 2016.39(Suppl 1). Performed By: #### 2 4321-2, 86630-8 #### [facility] CLIA [id number] [place] [address] [place] Potassium [Moles/Vol] 3.8 mmol/L Normal 3.7-5.1 [facility] Comment on above: Order Comment: John chan Type: BLOOD SPECIMEN Ordering Facility: [facility] Address: [address] Performed By: #### 2 4320-2, #### [facility] CLIA [id number] [address] [place] [address] [place] Sodium [Moles/Vol] 139 mmol/L Normal 136-144 [facility] Comment on above: Order Comment: Speci men Type: BLOOD SPECIMEN Ordering Facility: [facility] Address: [address] [place] [address] Performed By: #### 2 2, #### [facility] CLIA [id number] [address] [place] [address] [place] Urea nitrogen [Mass/Vol] 8 mg/dL Low 9-24 [facility] Comment on above: Order Comment: Speci men Type: BLOOD SPECIMEN Ordering Facility: [facility] Address: [address] [place] [address] Performed By: #### 2 4320-11, #### [facility] CLIA [id number] [address] [place] [address] [place] CBC W Auto Differential pane l (Bld)on 02-28-2023 Basophils (Bld) [#/Vol] 0.03 10*3/uL Normal <0.11 [facility] Comment on above: Order Comment: Speci men Type: BLOOD SPECIMEN Ordering Facility: [facility] Address: [address] [place] [address] Performed By: #### 2 4320-11, #### [facility] CLIA [id number] [address] [place] [address] [place] Basophils/100 WBC (Bld) 0.6 % Normal [facility] Comment on above: Order Comment: Speci men Type: BLOOD SPECIMEN Ordering Facility: [facility] Address: [address] [place] [address] Performed By: #### 2 2, #### [facility] CLIA [id number] [address] [place] [address] [place] Differential cell count method Nom (Bld) Auto Normal [facility] Comment on above: Order Comment: Speci men Type: BLOOD SPECIMEN Ordering Facility: [facility] Address: [address] [address] Performed By: #### 2 4320-11, #### [facility] CLIA [id number] [address] [place] [address] [place] Eosinophils (Bld) [#/Vol] 0.36 10*3/uL Normal <0.46 [facility] Comment on above: Order Comment: Speci men Type: BLOOD SPECIMEN Ordering Facility: [facility] Address: [address] [address] Performed By: #### 2 4320-11, #### [facility] CLIA [id number] [address] [place] [address] [place] Eosinophils/100 WBC (Bld) 7.5 % Normal [facility] Comment on above: Order Comment: Speci men Type: BLOOD SPECIMEN Ordering Facility: [facility] Address: [address] [place] [address] Performed By: #### 2 4320-11, #### [facility] CLIA [id number] [address] [place] [address] [place] Erythrocyte distribution width (RBC) [Ratio] 15.4 % High 11.5-15.0 [facility] Comment on above: Order Comment: Speci men Type: BLOOD SPECIMEN Ordering Facility: [facility] Address: [address] [place] [address] Performed By: #### 2 4320-11, #### [facility] CLIA [id number] [address] [place] [address] [place] Hematocrit (Bld) [Volume fraction] 36.0 % Low 39.0-51.0 [facility] Comment on above: Order Comment: Speci men Type: BLOOD SPECIMEN Ordering Facility: [facility] Address: [address] [place] [address] Performed By: #### 2 4320-11, #### [facility] CLIA [id number] [address] [place] [address] [place] Hemoglobin (Bld) [Mass/Vol] 12.1 g/dL Low 13.0-17.0 [facility] Comment on above: Order Comment: Speci men Type: BLOOD SPECIMEN [facility] [facility] Address: [address] [place] [address] Performed By: #### 2 2, #### [facility] CLIA [id number] [address] [place] [address] [place] Immature granulocytes (Bld) [#/Vol] 10*3/uL Normal <0.10 [facility] Comment on above: Order Comment: Speci men Type: BLOOD SPECIMEN Ordering Facility: [facility] Address: [address] [place] [address] Performed By: #### 2 4320-11, #### [facility] CLIA [id number] [address] [place] [address] [place] Immature granulocytes/100 WBC (Bld) 0.4 % Normal [facility] Comment on above: Order Comment: Speci men Type: BLOOD SPECIMEN Ordering Facility: [facility] Address: [address] [place] [address] Performed By: #### 2 4320-11, #### [facility] CLIA [id number] [address] [place] [address] [place] Lymphocytes (Bld) [#/Vol] 0.61 10*3/uL Low 1.00-4.00 [facility] Comment on above: Order Comment: Speci men Type: BLOOD SPECIMEN Ordering Facility: [facility] Address: [address] [address] Performed By: #### 2 4320-11, #### [facility] CLIA [id number] [address] [place] [address] [place] Lymphocytes/100 WBC (Bld) 12.6 % Normal [facility] Comment on above: Order Comment: Speci men Type: BLOOD SPECIMEN Ordering Facility: [facility] Address: [address] [place] [address] Performed By: #### 2 4320-11, #### [facility] CLIA [id number] [place] [address] [place] MCH (RBC) [Entitic mass] 30.0 pg Normal 26.0-34.0 [facility] Comment on above: Order Comment: Speci men Type: BLOOD SPECIMEN Ordering Facility: [facility] Address: [address] [place] [address] Performed By: #### 2 4320-11, #### [facility] CLIA [id number] [address] [place] [address] [place] MCHC (RBC) [Mass/Vol] 33.6 g/dL Normal 30.5-36.0 [facility] Comment on above: Order Comment: Speci men Type: BLOOD SPECIMEN Ordering Facility: [facility] Address: [address] [place] [address] Performed By: #### 2 4320-11, #### [facility] CLIA [id number] [address] [place] [address] [place] MCV (RBC) [Entitic vol] 89.3 fL Normal 80.0-100.0 [facility] Comment on above: Order Comment: Speci men Type: BLOOD SPECIMEN Ordering Facility: [facility] Address: [address] [place] [address] Performed By: #### 2 4320-11, #### [facility] CLIA [id number] [address] [place] [address] [place] Monocytes (Bld) [#/Vol] 0.58 10*3/uL Normal <0.87 [facility] Comment on above: Order Comment: Speci men Type: BLOOD SPECIMEN Ordering Facility: [facility] Address: [address] [place] [address] Performed By: #### 2 4320-11, #### [facility] CLIA [id number] [address] [place] [address] [place] Monocytes/100 WBC (Bld) 12.0 % Normal [facility] Comment on above: Order Comment: Speci men Type: BLOOD SPECIMEN Ordering Facility: [facility] Address: [address] [address] Performed By: #### 2 4320-11, #### [facility] CLIA [id number] [address] [place] [address] [place] Neutrophils (Bld) [#/Vol] 3.23 10*3/uL Normal 1.45-7.50 [facility] Comment on above: Order Comment: Speci men Type: BLOOD SPECIMEN Ordering Facility: [facility] Address: [address] [address] Performed By: #### 2 4320-11, #### [facility] CLIA [id number] [address] [place] [address] [place] Neutrophils/100 WBC (Bld) 66.9 % Normal [facility] Comment on above: Order Comment: Speci men Type: BLOOD SPECIMEN Ordering Facility: [facility] Address: [address] [address] Performed By: #### 2 4320-11, #### [facility] CLIA [id number] [address] [place] [address] [place] Nucleated RBC (Bld) [#/Vol] 10*3/uL Normal <0.01 [facility] Comment on above: Order Comment: Speci men Type: BLOOD SPECIMEN Ordering Facility: [facility] Address: [address] [place] [address] Performed By: #### 2 4320-11, #### [facility] CLIA [id number] [address] [place] [address] [place] Nucleated RBC/100 WBC (Bld) [Ratio] 0.0 /100 WBC Normal [facility] Comment on above: Order Comment: Speci men Type: BLOOD SPECIMEN Ordering Facility: [facility] Address: [address] [place] [address] Performed By: #### 2 4320-11, #### [facility] CLIA [id number] [address] [place] [address] [place] Platelet mean volume (Bld) [Entitic vol] 10.8 fL Normal 9.0-12.7 [facility] Comment on above: Order Comment: Speci men Type: BLOOD SPECIMEN Ordering Facility: [facility] Address: [address] [place] [address] Performed By: #### 2 4320-2, #### [facility] CLIA [id number] [address] [place] [address] [place] Platelets (Bld) [#/Vol] 182 10*3/uL Normal 150-400 [facility] Comment on above: Order Comment: Speci men Type: BLOOD SPECIMEN Ordering Facility: [facility] Address: [address] [place] [address] Performed By: #### 2 2, #### [facility] CLIA [id number] [address] [place] [address] [place] RBC (Bld) [#/Vol] 4.03 10*6/uL Low 4.20-6.00 [facility] Comment on above: Order Comment: Speci men Type: BLOOD SPECIMEN Ordering Facility: [facility] Address: [address] [place] [address] Performed By: #### 2 2, #### [facility] CLIA [id number] [address] [place] [address] [place] WBC (Bld) [#/Vol] 4.83 10*3/uL Normal 3.70-11.00 [facility] Comment on above: Order Comment: Speci men Type: BLOOD SPECIMEN Ordering Facility: [facility] Address: [address] [place] [address] Performed By: #### 2 2, #### [facility] CLIA [id number] [place] [address] [place] Magnesium SerPl-mCncon 02-28 Magnesium [Mass/Vol] 1.8 mg/dL Normal 1.7-2.3 [facility] Comment on above: Order Comment: Speci men Type: BLOOD SPECIMEN Ordering Facility: [facility] Address: [address] [address] Performed By: #### 2 4321-2, #### [facility] CLIA [id number] [address] [place] [address] [place] NURSING PROGon 02-28-2023 NURSING PROG HNO ID: [id number] Author: Christie Mayberry RN Service: Nursing Author Type: Registered Nurse Type: Nursing Progress Note Filed: 02/28/2023 7:43 AM Note Text: 2015: BP 179/67 and 167/62. HR 79. Asymptomatic. No prn BP meds on. Text page sent to surgery for further orders. 2022: Scheduled and PRN BP meds ordered. Normal [facility] Phosphate SerPl-mCncon 02-28 Phosphate [Mass/Vol] 3.0 mg/dL Normal 2.7-4.8 [facility] Comment on above: Order Comment: Speci men Type: BLOOD SPECIMEN Ordering Facility: [facility] Address: [address] [place] [address] Performed By: #### 2 4321-2, #### [facility] CLIA [id number] [address] [place] [address] [place] Basic metabolic 2000 panelon 02-27-2023 Anion gap [Moles/Vol] 10 mmol/L Normal 9-18 [facility] Comment on above: Order Comment: Speci men Type: BLOOD SPECIMEN Ordering Facility: [facility] Address: [address] [place] [address] Performed By: #### 2 4321-2, 15814-7, 2777-1 #### [facility] CLIA [id number] [address] [place] [address] [place] Calcium [Mass/Vol] 8.6 mg/dL Normal 8.5-10.2 [facility] Comment on above: Order Comment: Speci men Type: BLOOD SPECIMEN Ordering Facility: [facility] Address: [address] [place] [address] Performed By: #### 2 4321-2, , 2776-10 #### [facility] CLIA [id number] [address] [place] [address] [place] Chloride [Moles/Vol] 106 mmol/L High 97-105 [facility] Comment on above: Order Comment: Speci men Type: BLOOD SPECIMEN Ordering Facility: [facility] Address: [address] [place] [address] Performed By: #### 2 4321-2, , 2776-10 #### [facility] CLIA [id number] [address] [place] [address] [place] CO2 [Moles/Vol] 26 mmol/L Normal 22-30 [facility] Comment on above: Order Comment: Speci men Type: BLOOD SPECIMEN Ordering Facility: [facility] Address: [address] [place] [address] Performed By: #### 2 4321-2, , 2776-10 #### [facility] CLIA [id number] [address] [place] [address] [place] Creatinine [Mass/Vol] 0.55 mg/dL Low 0.73-1.22 [facility] Comment on above: Order Comment: Speci men Type: BLOOD SPECIMEN Ordering Facility: [facility] Address: [address] [place] [address] Performed By: #### 2 4321-2, , 2776-10 #### [facility] CLIA [id number] [address] [place] [address] [place] ESTIMATED GLOMERULAR FILTRATION RATE 103 mL/min/1.73m??? Normal >=60 [facility] Comment on above: Order Comment: Speci men Type: BLOOD SPECIMEN Ordering Facility: [facility] Address: [address] [place] [address] Result Comment: Trena mated Glomerular Filtration Rate [...] By: #### 2 4321-2, , 2776-10 #### [facility] CLIA [id number] [address] [place] [address] [place] Glucose [Mass/Vol] 101 mg/dL High 74-99 [facility] Comment on above: Order Comment: Speci men Type: BLOOD SPECIMEN Ordering Facility: [facility] Address: [address] [place] [address] Result Comment: The [place] [employer] Association (ADA) provides guidance for cutoff [...] Standards of Medical Care in Diabetes 2016, [place] [employer]. Diabetes Care. 2016.39(Suppl 1). Performed By: #### 2 4321-2, , 2776-10 #### [facility] CLIA [id number] [place] [address] [place] Potassium [Moles/Vol] 3.6 mmol/L Low 3.7-5.1 [facility] Comment on above: Order Comment: Speci men Type: BLOOD SPECIMEN Ordering Facility: [facility] Address: [address] [place] [address] Performed By: #### 2 4321-2, , 2776-10 #### [facility] CLIA [id number] [address] [id number] [place] Sodium [Moles/Vol] 142 mmol/L Normal 136-144 [facility] Comment on above: Order Comment: Speci men Type: BLOOD SPECIMEN Ordering Facility: [facility] Address: [address] [id number] Performed By: #### 2 4321-2, , 2776-10 #### [facility] CLIA [id number] Urea nitrogen [Mass/Vol] 8 mg/dL Low 9-24 [facility] Comment on above: Order Comment: Speci men Type: BLOOD SPECIMEN Ordering Facility: [facility] Address: [address] [id number] Performed By: #### 2 4321-2, , 27704-14 #### [facility] CLIA [id number] CASE MGT INIT ASSESon 2022 CASE MGT INIT ASSES HNO ID: [id number] Author: YURY Luz Service: ? Author Type: Vibrator Equipment Tester Type: Care Mgt Initial Assessment Filed: 02/27/2023 [...] person(s) per dept policy Potential Transition Plans Senior Care Facility/Intermediate Care Facility;Home Care Advance Directives Current Advance Directive: None Smt Operator Attempted to Assist with AD Completion: Yes Action: Education Provided;Other: See Comment (forms provided) Current Living Arrangements and Support Lives with: Spouse/significant other Type of Residence: Private Residence (House) Does the patient have to climb stairs at home?: stairs outside the home Support: Spouse/significant other How do you manage to accomplish the following: Independent: Transportation to appointments/community;Amb ulation;Bathe/Shower;Dress ;Meals/Meal Prep;Going to the bathroom;Medication Management Current Services/Equipment Current Post-Acute Service(s): DME Current DME Type: Continuous Positive Airway Pressure, Walker Discharge Planning Patient Goal(s): General wellness, Be able to go home Low Moor of Choice Explained: [place] of Choice Given: Yes Level of Care Discussed: Home Care;Senior Care Facility Are you interested in bedside delivery [...] If patient progresses and can go home, [facility] can accept. Patient's [...] 27, 2023 TIME: 3:26 PM CONTACT #: [phone] Normal [facility] CBC W Auto Differential pane l (Bld)on 02-27-2023 Basophils (Bld) [#/Vol] 0.03 10*3/uL Normal <0.11 [facility] Comment on above: Order Comment: Specesperanza chan Type: BLOOD SPECIMENOrdering Facility: [facility] Address: [address] [place] [address] Performed By: #### 5 7021-8 ####[facility] [id number] [place] [address] [place] Basophils/100 WBC (Bld) 0.5 % Normal [facility] Comment on above: Order Comment: John chan Type: BLOOD SPECIMENOrdering Facility: [facility] Address: [address] [address] Performed By: #### 5 7021-8 ####[facility] [id number] [place] [id number] [place] Differential cell count method Nom (Bld) Auto Normal [facility] Comment on above: Order Comment: Speci men Type: BLOOD SPECIMENOrdering Facility: [facility] Address: [address] [address] Performed By: #### 5 7021-8 ####[facility] [id number] [place] [address] [place] Eosinophils (Bld) [#/Vol] 0.27 10*3/uL Normal <0.46 [facility] Comment on above: Order Comment: Speci men Type: BLOOD SPECIMENOrdering Facility: [facility] Address: [address] [address] Performed By: #### 5 7021-8 ####[facility] [id number] [address] [place] Eosinophils/100 WBC (Bld) 4.5 % Normal [facility] Comment on above: Order Comment: Speci men Type: BLOOD SPECIMENOrdering Facility: [facility] Address: [address] [place] [address] Performed By: #### 5 7021-8 ####[facility] [id number] [address] [place] Erythrocyte distribution width (RBC) [Ratio] 15.8 % High 11.5-15.0 [facility] Comment on above: Order Comment: Speci men Type: BLOOD SPECIMENOrdering Facility: [facility] Address: [address] [address] Performed By: #### 5 7021-8 ####[facility] [id number] [address] [place] Hematocrit (Bld) [Volume fraction] 35.5 % Low 39.0-51.0 [facility] Comment on above: Order Comment: Speci men Type: BLOOD SPECIMENOrdering Facility: [facility] Address: [address] [address] Performed By: #### 5 7021-8 ####[facility] [id number] [place] [address] [place] Hemoglobin (Bld) [Mass/Vol] 11.7 g/dL Low 13.0-17.0 [facility] Comment on above: Order Comment: Speci men Type: BLOOD SPECIMENOrdering Facility: [facility] Address: [address] [address] Performed By: #### 5 7021-8 ####[facility] [id number] [place] [address] [place] Immature granulocytes (Bld) [#/Vol] 0.03 10*3/uL Normal <0.10 [facility] Comment on above: Order Comment: Speci men Type: BLOOD SPECIMENOrdering Facility: [facility] Address: [address] [address] Performed By: #### 5 7021-8 ####[facility] [id number] [place] [address] [place] Immature granulocytes/100 WBC (Bld) 0.5 % Normal [facility] Comment on above: Order Comment: Speci men Type: BLOOD SPECIMENOrdering Facility: [facility] Address: [address] [address] Performed By: #### 5 7021-8 ####[facility] [id number] [place] [address] [place] Lymphocytes (Bld) [#/Vol] 0.78 10*3/uL Low 1.00-4.00 [facility] Comment on above: Order Comment: Speci men Type: BLOOD SPECIMENOrdering Facility: [facility] Address: [address] [address] Performed By: #### 5 7021-8 ####[facility] [id number] [place] [address] [place] Lymphocytes/100 WBC (Bld) 12.9 % Normal [facility] Comment on above: Order Comment: Speci men Type: BLOOD SPECIMENOrdering Facility: [facility] Address: [address] [address] Performed By: #### 5 7021-8 ####[facility] [id number] [place] [address] [place] MCH (RBC) [Entitic mass] 30.2 pg Normal 26.0-34.0 [facility] Comment on above: Order Comment: Speci men Type: BLOOD SPECIMENOrdering Facility: [facility] Address: [address] [place] [address] Performed By: #### 5 7021-8 ####[facility] [id number] [place] [address] [place] MCHC (RBC) [Mass/Vol] 33.0 g/dL Normal 30.5-36.0 [facility] Comment on above: Order Comment: Speci men Type: BLOOD SPECIMENOrdering Facility: [facility] Address: [address] [place] [address] Performed By: #### 5 7021-8 ####[facility] [id number] [place] [address] [place] MCV (RBC) [Entitic vol] 91.7 fL Normal 80.0-100.0 [facility] Comment on above: Order Comment: Speci men Type: BLOOD SPECIMENOrdering Facility: [facility] Address: [address] [place] [address] Performed By: #### 5 7021-8 ####[facility] [id number] [address] [place] Monocytes (Bld) [#/Vol] 0.51 10*3/uL Normal <0.87 [facility] Comment on above: Order Comment: Speci men Type: BLOOD SPECIMENOrdering Facility: [facility] Address: [address] [place] [address] Performed By: #### 5 7021-8 ####[facility]ORYCLIA [id number] [address] Monocytes/100 WBC (Bld) 8.4 % Normal [facility] Comment on above: Order Comment: Speci men Type: BLOOD SPECIMENOrdering Facility: [facility] Address: [address] [address] Performed By: #### 5 7021-8 ####[facility]ATORYCLIA [id number] [place] [id number] [place] Neutrophils (Bld) [#/Vol] 4.44 10*3/uL Normal 1.45-7.50 [facility] Comment on above: Order Comment: Speci men Type: BLOOD SPECIMENOrdering Facility: [facility] Address: [address] [address] Performed By: #### 5 7021-8 ####[facility]ORYCLIA [id number] [place] [address] [place] Neutrophils/100 WBC (Bld) 73.2 % Normal [facility] Comment on above: Order Comment: Speci men Type: BLOOD SPECIMENOrdering Facility: [facility] Address: [address] [address] Performed By: #### 5 7021-8 ####[facility]ORYCLIA [id number] [place] [address] [place] Nucleated RBC (Bld) [#/Vol] 10*3/uL Normal <0.01 [facility] Comment on above: Order Comment: Speci men Type: BLOOD SPECIMENOrdering Facility: [facility] Address: [address] [place] [address] Performed By: #### 5 7021-8 ####[facility]ATORYCLIA [id number] [place] [address] [place] Nucleated RBC/100 WBC (Bld) [Ratio] 0.0 /100 WBC Normal [facility] Comment on above: Order Comment: Speci men Type: BLOOD SPECIMENOrdering Facility: [facility] Address: [address] [address] Performed By: #### 5 7021-8 ####[facility]ORYCLIA [id number] [place] [address] [place] Platelet mean volume (Bld) [Entitic vol] 10.7 fL Normal 9.0-12.7 [facility] Comment on above: Order Comment: Speci men Type: BLOOD SPECIMENOrdering Facility: [facility] Address: [address] [place] [address] Performed By: #### 5 7021-8 ####[facility]ATORYCLIA [id number] [place] [id number] [facility] Platelets (Bld) [#/Vol] 157 10*3/uL Normal 150-400 [facility] Comment on above: Order Comment: Speci men Type: BLOOD SPECIMENOrdering Facility: [facility] Address: [address] [place] [address] Performed By: #### 5 7021-8 ####[facility]ORYCLIA [id number] [place] [address] [place] RBC (Bld) [#/Vol] 3.87 10*6/uL Low 4.20-6.00 [facility] Comment on above: Order Comment: Speci men Type: BLOOD SPECIMENOrdering Facility: [facility] Address: [address] [address] Performed By: #### 5 7021-8 ####[facility] [id number] [address] [place] WBC (Bld) [#/Vol] 6.06 10*3/uL Normal 3.70-11.00 [facility] Comment on above: Order Comment: Speci men Type: BLOOD SPECIMENOrdering Facility: [facility] Address: [address] [place] [address] Performed By: #### 5 7021-8 ####[facility]ORYCLIA [id number] [place] [id number] [facility] CONSULT PROGon 02-27-2023 CONSULT PROG HNO ID: [id number] Author: Ree Fernandez APRN.SHEEP KILLER Service: Pain Management Author Type: Nurse Practitioner [...] Passing flatus. PLAN/Recs: Continue bilateral TAPs at /2 each (likely remove tmrw) Continue Acetaminophen 650 [...] Lymph 1.00 - 4.00 k/uL 0.78 (L) Warren% % 8.4 Abs Warren <0.87 k/uL 0.51 Eosin% % 4.5 Abs [...] - 30 (more content not included)... [facility] HIGH SENSITIVITY TROPONIN To n 02-27-2023 HIGH SENSITIVITY PHYLLIS 14 ng/L High <12 [facility] Comment on above: Order Comment: John chan Type: BLOOD SPECIMEN Ordering Facility: [facility] Address: [address] [place] [address] Result Comment: When assessing risk for acute [...] day MACE. Performed By: #### 2 4321-2, 24670-5 #### [facility] CLIA [id number] [place] [address] [place] Magnesium SerPl-mCncon 02-27 Magnesium [Mass/Vol] 2.1 mg/dL Normal 1.7-2.3 [facility] Comment on above: Order Comment: Speci men Type: BLOOD SPECIMEN Ordering Facility: [facility] Address: [place] [address] Performed By: #### 2 4321-2, , 2776-10 #### [facility] CLIA [id number] [place] NURSING PROGon 02-27-2023 NURSING PROG HNO ID: [id number] Author: Latasha Evans RN Service: Nursing Author Type: Registered Nurse Type: Nursing Progress Note Filed: 02/27/2023 11:44 AM Note Text: Daily Note: 0930: Pt AANDOx2 - disoriented to place. Midline and transverse incision potato sorter with glue. Bowel sounds active. FERNANDO to left and ride side - serosang output. Bilateral taps in place. Advanced to gi soft. External catheter in place. Call light in reach. 1030: Pt up to chair with 2 assist and walker. 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 bp 155/49, hr 71, spo2 94% nc 2.5L. would you like a troponin order. Thanks Vivian [phone], new orders received. 0139 paged surgery Hi, [email or web address] Tatiana, high sensitivity troponin was 14. [facility] Phosphate SerPl-mCncon 02-27 Phosphate [Mass/Vol] 2.1 mg/dL Low 2.7-4.8 [facility] Comment on above: Order Comment: Speci men Type: BLOOD SPECIMEN Ordering Facility: [facility] Address: [place] [address] Performed By: #### 2 4321-2, , 2776-10 #### [facility] CLIA [id number] [address] [place] [address] [place] THERAPY NTon 05-16-2023 THERAPY NT HNO ID: [id number] Author: Judith Hernandez, OTR/L Service: Occupational Therapy Author Type: Occupational Therapist Type: Therapy (PT/OT/Speech/Resp) Filed: 02/27/2023 5:06 PM Note Text: Occupational Therapy Treatment SERVICE DATE: 02/27/2023 SERVICE TIME: 1546 to 1640 ROOM: [place] [address] Scheduled Surgery For Left Inguinal Hernia, S/P Attempted Xgms-Kgu-Magyd Repair Of Left Femoral Hernia, Excision Of [...] Shoe Horn, Long Handled Sponge, Wheeled Walker, Proposal Manager Writer, Sock Aid, Shower Chair OT 6 Clicks Score: 17 Precautions/Activity Restrictions: Abdominal, Bed/Chair Alarm, Fall Risk, Lines/Tubes/Drains, Diet Restrictions, Other: See Comments Current Hospital Course: Scheduled Surgery For Left Inguinal Hernia, S/P Attempted Ylax-Odv-Mbzdp Repair Of Left Femoral Hernia, Excision Of Previously Implanted Mesh, Exploratory Laparotomy, Bilateral TAR, Implantation Of 30 x 30 cm Prolene Mesh 02/23/23 Reason for Hospital Admission: Scheduled Surgery For Left Inguinal Hernia, S/P Attempted Cfia-Kuk-Woqkt Repair Of Left Femoral Hernia, Excision Of [...] Comment Comments: In one level home in [place], [place] Assistance Available: PRN Entry To Home: [...] situation 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 [facility] THERAPY NT HNO ID: [id number] Author: Ree Gardner, PT Service: Physical Therapy Author Type: Physical Therapist Type: Therapy (PT/OT/Speech/Resp) Filed: 02/27/2023 12:36 PM Note Text: Physical Therapy Treatment SERVICE DATE: 02/27/2023 SERVICE TIME: 1100 to 1138 ROOM: [place] [address] Recommended Discharge Disposition: Subacute/SNF Recommended Discharge Disposition Comments: vs home with 07/05 assist Recommended Discharge Disposition Due to: Patient [...] Surgery For Left Inguinal Hernia, S/P Attempted Oymv-Vtx-Juayk Repair Of Left Femoral Hernia, Excision Of Previously Implanted Mesh, Exploratory Laparotomy, Bilateral TAR, Implantation Of 30 x 30 cm Prolene Mesh 02/23/23 Reason for Hospital Admission: Scheduled Surgery For Left Inguinal Hernia, S/P Attempted Qqfh-Ixx-Tdbmj Repair Of Left Femoral Hernia, Excision Of [...] Comment Comments: In one level home in [place], [place] Assistance Available: PRN Entry To Home: [...] Diagnosis: Reduced mobility-other Interventions Provided: Therapeutic Exercise (46741), Therapeutic Activity (01873), Gait Training (00598) Therapeutic Exercise (40801) Treatment Minutes: 15 $ Therapeutic Exercise (15449) Billed Units: 1 unit Therapeutic Activity (35733) Treatment Minutes: 15 $ Therapeutic Activity (45880) Billed Units: 1 unit Gait Training (43225) Treatment Minutes: 8 $ Gait Training (44601) Billed Units: 1 unit (more content not included)... [facility] Basic metabolic 2000 panelon 02-26-2023 Anion gap [Moles/Vol] 9 mmol/L Normal 9-18 [facility] Comment on above: Order Comment: Speci men Type: BLOOD SPECIMENOrdering Facility: [facility] Address: [address] [place], [place] [address] [address] Performed By: #### 2 4321-2, , 2776-10 ####[facility] [id number] [place] [id number] [place] Calcium [Mass/Vol] 8.5 mg/dL Normal 8.5-10.2 [facility] Comment on above: Order Comment: Speci men Type: BLOOD SPECIMENOrdering Facility: [facility] Address: [address] Performed By: #### 2 4321-2, , 2776-10 ####[facility]ORYCLIA [id number] [place] [address] [place] Chloride [Moles/Vol] 104 mmol/L Normal 97-105 [facility] Comment on above: Order Comment: Speci men Type: BLOOD SPECIMENOrdering Facility: [facility] Address: [address] [place] [address] Performed By: #### 2 4321-2, , 2776-10 ####[facility]ORYCLIA [id number] [place] [id number] [place] CO2 [Moles/Vol] 25 mmol/L Normal 22-30 [facility] Comment on above: Order Comment: Speci men Type: BLOOD SPECIMENOrdering Facility: [facility] Address: [address] Performed By: #### 2 4321-2, , 2776-10 ####[facility] [id number] [place] [id number] [place] Creatinine [Mass/Vol] 0.55 mg/dL Low 0.73-1.22 [facility] Comment on above: Order Comment: Speci men Type: BLOOD SPECIMENOrdering Facility: [facility] Address: [address] Performed By: #### 2 4321-2, , 2776-10 ####[facility]ORATORYCLIA [id number] [place] [address] [place] ESTIMATED GLOMERULAR FILTRATION RATE 103 mL/min/1.73m??? Normal >=60 [facility] Comment on above: Order Comment: John chan Type: BLOOD SPECIMENOrdering Facility: [facility] Address: [address] [place], [place] [address] Result Comment: Trena mated Glomerular Filtration Rate [...] Performed By: #### 2 4321-2, , 2776-10 ####[facility] [id number] [place] [id number] [place] Glucose [Mass/Vol] 105 mg/dL High 74-99 [facility] Comment on above: Order Comment: John chan Type: BLOOD SPECIMENOrdering Facility: [facility] Address: [address] [place] [address] Result Comment: The [place] Diabetes Association (ADA) provides guidance for cutoff [...] Standards of Medical Care in Diabetes 2016, [place] [employer]. Diabetes Care. 2016.39(Suppl 1). Performed By: #### 2 4321-2, , 2776-10 ####[facility] [id number] [place] [id number] [place] Potassium [Moles/Vol] 3.2 mmol/L Low 3.7-5.1 [facility] Comment on above: Order Comment: Speci men Type: BLOOD SPECIMENOrdering Facility: [facility] Address: [address] [place] [address] Performed By: #### 2 4321-2, , 2776-10 ####[facility]ORY[facility]IA [id number] [place] [address] [place] Sodium [Moles/Vol] 138 mmol/L Normal 136-144 [facility] Comment on above: Order Comment: Speci men Type: BLOOD SPECIMENOrdering Facility: [facility] Address: [address] [place] [address] Performed By: #### 2 4321-2, , 2776-10 ####[facility]ORYCLIA [id number] [place] [address] [place] Urea nitrogen [Mass/Vol] 9 mg/dL Normal 9-24 [facility] Comment on above: Order Comment: Speci men Type: BLOOD SPECIMENOrdering Facility: [facility] Address: [address] [place] [address] Performed By: #### 2 4321-2, , 2776-10 ####[facility]ORYCLIA [id number] [address] [place] CBC W Auto Differential pane l (Bld)on 02-26-2023 Basophils (Bld) [#/Vol] 0.03 10*3/uL Normal <0.11 [facility] Comment on above: Order Comment: Speci men Type: BLOOD SPECIMEN Ordering Facility: [facility] Address: [address] [place] [address] Performed By: #### 5 7021-8 #### [facility] CLIA [id number] [place] Basophils/100 WBC (Bld) 0.4 % [facility] Comment on above: Order Comment: Speci men Type: BLOOD SPECIMEN Ordering Facility: [facility] Address: [address] [place] [address] Performed By: #### 5 7021-8 #### [facility] CLIA [id number] [address] [place] [address] [place] Differential cell count method Nom (Bld) Auto [facility] Comment on above: Order Comment: Speci men Type: BLOOD SPECIMEN Ordering Facility: [facility] Address: [address] [place] [address] Performed By: #### 5 7021-8 #### [facility] CLIA [id number] [address] [place] [address] [place] Eosinophils (Bld) [#/Vol] 0.21 10*3/uL Normal <0.46 [facility] Comment on above: Order Comment: Speci men Type: BLOOD SPECIMEN Ordering Facility: [facility] Address: [address] [place] [address] Performed By: #### 5 7021-8 #### [facility] CLIA [id number] [address] [place] [address] [place] Eosinophils/100 WBC (Bld) 2.6 % [facility] Comment on above: Order Comment: Speci men Type: BLOOD SPECIMEN Ordering Facility: [facility] Address: [address] [place] [address] Performed By: #### 5 7021-8 #### [facility] CLIA [id number] [address] [place] [address] [place] Erythrocyte distribution width (RBC) [Ratio] 15.5 % High 11.5-15.0 [facility] Comment on above: Order Comment: Speci men Type: BLOOD SPECIMEN Ordering Facility: [facility] Address: [address] [place] [address] Performed By: #### 5 7021-8 #### [facility] CLIA [id number] [address] [place] [address] [place] Hematocrit (Bld) [Volume fraction] 34.6 % Low 39.0-51.0 [facility] Comment on above: Order Comment: Speci men Type: BLOOD SPECIMEN Ordering Facility: [facility] Address: [address] [place] [address] Performed By: #### 5 7021-8 #### [facility] CLIA [id number] [address] [place] [address] [place] Hemoglobin (Bld) [Mass/Vol] 11.8 g/dL Low 13.0-17.0 [facility] Comment on above: Order Comment: Speci men Type: BLOOD SPECIMEN Ordering Facility: [facility] Address: [address] [place] [address] Performed By: #### 5 7021-8 #### [facility] CLIA [id number] [address] [place] [address] [place] Immature granulocytes (Bld) [#/Vol] 0.03 10*3/uL Normal <0.10 [facility] Comment on above: Order Comment: Speci men Type: BLOOD SPECIMEN Ordering Facility: [facility] Address: [address] [place] [address] Performed By: #### 5 7021-8 #### [facility] CLIA [id number] [address] [place] [address] [place] Immature granulocytes/100 WBC (Bld) 0.4 % [facility] Comment on above: Order Comment: Speci men Type: BLOOD SPECIMEN Ordering Facility: [facility] Address: [address] [place] [address] Performed By: #### 5 7021-8 #### [facility] CLIA [id number] [address] [place] [address] [place] Lymphocytes (Bld) [#/Vol] 0.71 10*3/uL Low 1.00-4.00 [facility] Comment on above: Order Comment: Speci men Type: BLOOD SPECIMEN Ordering Facility: [facility] Address: [address] [place] [address] Performed By: #### 5 7021-8 #### [facility] CLIA [id number] [address] [place] [address] [place] Lymphocytes/100 WBC (Bld) 8.9 % [facility] Comment on above: Order Comment: Speci men Type: BLOOD SPECIMEN Ordering Facility: [facility] Address: [address] [place] [address] Performed By: #### 5 7021-8 #### [facility] CLIA [id number] [address] [place] [address] STATES [facility] MCH (RBC) [Entitic mass] 30.6 pg Normal 26.0-34.0 [facility] Comment on above: Order Comment: Speci men Type: BLOOD SPECIMEN Ordering Facility: [facility] Address: [address] [place] [address] Performed By: #### 5 7021-8 #### [facility] CLIA [id number] [address] [place] [address] [place] MCHC (RBC) [Mass/Vol] 34.1 g/dL Normal 30.5-36.0 [facility] Comment on above: Order Comment: Speci men Type: BLOOD SPECIMEN Ordering Facility: [facility] Address: [address] [place] [address] Performed By: #### 5 7021-8 #### [facility] CLIA [id number] [address] [place] [address] [place] MCV (RBC) [Entitic vol] 89.6 fL Normal 80.0-100.0 [facility] Comment on above: Order Comment: Speci men Type: BLOOD SPECIMEN Ordering Facility: [facility] Address: [address] [place] [address] Performed By: #### 5 7021-8 #### [facility] CLIA [id number] [address] [place] [address] [place] Monocytes (Bld) [#/Vol] 0.62 10*3/uL Normal <0.87 [facility] Comment on above: Order Comment: Speci men Type: BLOOD SPECIMEN Ordering Facility: [facility] Address: [address] [place] [address] Performed By: #### 5 7021-8 #### [facility] CLIA [id number] [address] [place] [address] [place] Monocytes/100 WBC (Bld) 7.8 % [facility] Comment on above: Order Comment: Speci men Type: BLOOD SPECIMEN Ordering Facility: [facility] Address: [address] [place] [address] Performed By: #### 5 7021-8 #### [facility] CLIA [id number] [address] [place] [address] [place] Neutrophils (Bld) [#/Vol] 6.37 10*3/uL Normal 1.45-7.50 [facility] Comment on above: Order Comment: Speci men Type: BLOOD SPECIMEN Ordering Facility: [facility] Address: [address] [place] [address] Performed By: #### 5 7021-8 #### [facility] CLIA [id number] [address] [place] [address] [place] Neutrophils/100 WBC (Bld) 79.9 % [facility] Comment on above: Order Comment: Speci men Type: BLOOD SPECIMEN Ordering Facility: [facility] Address: [address] [place] [address] Performed By: #### 5 7021-8 #### [facility] CLIA [id number] [address] [place] [address] [place] Nucleated RBC (Bld) [#/Vol] 10*3/uL Normal <0.01 [facility] Comment on above: Order Comment: Speci men Type: BLOOD SPECIMEN Ordering Facility: [facility] Address: [address] [place] [address] Performed By: #### 5 7021-8 #### [facility] CLIA [id number] [address] [place] [address] [place] Nucleated RBC/100 WBC (Bld) [Ratio] 0.0 /100 WBC [facility] Comment on above: Order Comment: Speci men Type: BLOOD SPECIMEN Ordering Facility: [facility] Address: [address] [place] [address] Performed By: #### 5 7021-8 #### [facility] CLIA [id number] [address] [place] [address] [place] Platelet mean volume (Bld) [Entitic vol] 11.0 fL Normal 9.0-12.7 [facility] Comment on above: Order Comment: Speci men Type: BLOOD SPECIMEN Ordering Facility: [facility] Address: [address] [place] [address] Performed By: #### 5 7021-8 #### [facility] CLIA [id number] [address] [place] [address] [place] Platelets (Bld) [#/Vol] 131 10*3/uL Low 150-400 [facility] Comment on above: Order Comment: Speci men Type: BLOOD SPECIMEN Ordering Facility: [facility] Address: [address] [place] [address] Performed By: #### 5 7021-8 #### [facility] CLIA [id number] [address] [place] [address] [place] RBC (Bld) [#/Vol] 3.86 10*6/uL Low 4.20-6.00 [facility] Comment on above: Order Comment: Speci men Type: BLOOD SPECIMEN Ordering Facility: [facility] Address: [address] [place] [address] Performed By: #### 5 7021-8 #### [facility] CLIA [id number] [address] [place] [address] [place] WBC (Bld) [#/Vol] 7.97 10*3/uL Normal 3.70-11.00 [facility] Comment on above: Order Comment: Speci men Type: BLOOD SPECIMEN Ordering Facility: [facility] Address: [address] [place] [address] Performed By: #### 5 7021-8 #### [facility] CLIA [id number] [address] [place] [address] [place] CONSULT PROGon 02-26-2023 CONSULT PROG HNO ID: [id number] Author: Lakeisha Mota APRN.SHEEP KILLER Service: Pain Management Author Type: Nurse Practitioner [...] or vomiting. PLAN/Recs: Continue bilateral TAPs at 0/// each will remove when tolerating orals Changed [...] Lymph 1.00 - 4.00 k/uL 0.71 (L) Warren% % 7.8 Abs Warren <0.87 k/uL 0.62 Eosin% % 2.6 Abs Eosin <0.46 k/uL 0.21 Baso% % 0.4 Abs Baso <0.11 k/uL 0.03 Immature Gran % % 0.4 IMMATURE GRANS (ABS) <0.10 k/uL 0.03 NRBC /100 WBC 0.0 Absolute nRBC <0.01 k/uL <0.01 (more content not included)... [facility] Magnesium SerPl-mCncon 02-26 Magnesium [Mass/Vol] 1.8 mg/dL Normal 1.7-2.3 [facility] Comment on above: Order Comment: Speci men Type: BLOOD SPECIMENOrdering Facility: [facility] Address: [address] [place], [place] [address] Performed By: #### 2 4321-2, 12248-9, 2777-1 ####[facility] [id number] [place] [id number] [facility] NURSING PROGon 02-26-2023 NURSING PROG HNO ID: [id number] Author: Christie Mayberry RN Service: Nursing Author [...] sent to surgery for further orders. [facility] Phosphate SerPl-mCncon 02-26 Phosphate [Mass/Vol] 1.4 mg/dL Low 2.7-4.8 [facility] Comment on above: Order Comment: Speci men Type: BLOOD SPECIMENOrdering Facility: [facility] Address: [facility] [place] [address] Performed By: #### 2 4321-2, 51512-8, 2777-1 ####[facility]IA [id number] [address] THERAPY NTon 02-26-2023 THERAPY NT HNO ID: [id number] Author: Ree Gardner, PT Service: Physical Therapy Author Type: Physical Therapist Type: Therapy (PT/OT/Speech/Resp) Filed: 02/26/2023 11:44 AM Note Text: Physical Therapy Treatment SERVICE DATE: 02/26/2023 SERVICE TIME: 1027 to 1051 ROOM: [place] [address] Recommended Discharge Disposition: Subacute/SNF Recommended Discharge Disposition [...] Surgery For Left Inguinal Hernia, S/P Attempted Jshc-Uvx-Vabvg Repair Of Left Femoral Hernia, Excision Of Previously Implanted Mesh, Exploratory Laparotomy, Bilateral TAR, Implantation Of 30 x 30 cm Prolene Mesh 02/23/23 Reason for Hospital Admission: Scheduled Surgery For Left Inguinal Hernia, S/P Attempted Kgyo-Qgp-Arjgg Repair Of Left Femoral Hernia, Excision Of [...] Comment Comments: In one level home in [place], [place] Assistance Available: PRN Entry To Home: [...] Muscle Weakness (generalized) Interventions Provided: Therapeutic Activity (89353) Therapeutic Activity (04054) Treatment Minutes: 24 $ Therapeutic Activity (05146) Billed Units: 2 units Training AND Education Provided in: Anatomy and Impact on Deficits, Benefits of In-Hospital Mobility, Disease Spe (more content not included)... [facility] Basic metabolic 2000 panelon 02-25-2023 Anion gap [Moles/Vol] 9 mmol/L Normal 9-18 [facility] Comment on above: Order Comment: Specesperanza [facility] Type: BLOOD SPECIMENOrdering Facility: [facility] Address: [address] [place] [address] Performed By: #### 1 9123-9, 2777-, 79402-2 ####[facility]IA [id number] [place] [address] [place] Calcium [Mass/Vol] 8.6 mg/dL Normal 8.5-10.2 [facility] Comment on above: Order Comment: John [facility] Type: BLOOD SPECIMENOrdering Facility: [facility] Address: [address] [place] [address] Performed By: #### 1 9123-9, 2777-, 37640-2 ####[facility] [id number] [place] [address] [place] Chloride [Moles/Vol] 106 mmol/L High 97-105 [facility] Comment on above: Order Comment: Speci men Type: BLOOD SPECIMENOrdering Facility: [facility] Address: [address] [place] [address] Performed By: #### 1 9123-9, 2777-, 40497-7 ####[facility] [id number] [place] [id number] [place] CO2 [Moles/Vol] 24 mmol/L Normal 22-30 [facility] Comment on above: Order Comment: Speci men Type: BLOOD SPECIMENOrdering Facility: [facility] Address: [address] [place] [address] Performed By: #### 1 9123-9, 2777-1, 57111-3 ####[facility] [id number] [place] [id number] [place] Creatinine [Mass/Vol] 0.57 mg/dL Low 0.73-1.22 [facility] Comment on above: Order Comment: Speci men Type: BLOOD SPECIMENOrdering Facility: [facility] Address: [address] [place] [address] Performed By: #### 1 9123-9, 2777-1, 69638-7 ####[facility] [id number] [place] [address] [place] ESTIMATED GLOMERULAR FILTRATION RATE 102 mL/min/1.73m??? Normal >=60 [facility] Comment on above: Order Comment: Speci men Type: BLOOD SPECIMENOrdering Facility: [facility] Address: [address] [place] [address] Result Comment: Trena mated Glomerular Filtration Rate [...] GFR. Performed By: #### 1 9123-9, 2777-1, 83857-5 ####[facility] [id number] [place] [id number] [place] Glucose [Mass/Vol] 163 mg/dL High 74-99 [facility] Comment on above: Order Comment: Speci men Type: BLOOD SPECIMENOrdering Facility: [facility] Address: [address] [place] [address] Result Comment: The [place] Diabetes [employer] (ADA) provides guidance for cutoff [...] Standards of Medical Care in Diabetes 2016, [place] [employer]. Diabetes Care. 2016.39(Suppl 1). Performed By: #### 1 9123-9, 2777, 44424-6 ####[facility]ORYCLIA [id number] [place] [address] [place] Potassium [Moles/Vol] 3.4 mmol/L Low 3.7-5.1 [facility] Comment on above: Order Comment: John chan Type: BLOOD SPECIMENOrdering Facility: [facility] Address: [address] [address] Performed By: #### 1 9123-9, 27704-14, 43913-9 ####[facility]IA [id number] [address] [id number] [place] Sodium [Moles/Vol] 139 mmol/L Normal 136-144 [facility] Comment on above: Order Comment: John chan Type: BLOOD SPECIMENOrdering Facility: [facility] Address: [address] [address] Performed By: #### 1 9123-9, 27704-14, 24827-1 ####[facility]ORY[facility]IA [id number] [address] [id number] [place] Urea nitrogen [Mass/Vol] 9 mg/dL Normal 9-24 [facility] Comment on above: Order Comment: John chan Type: BLOOD SPECIMENOrdering Facility: [facility] Address: [address] [address] Performed By: #### 1 9123-9, 27704-14, 93007-2 ####[facility]ORYCLIA [id number] [place] [address] [place] CBC W Auto Differential pane l (Bld)on 02-25-2023 Basophils (Bld) [#/Vol] 10*3/uL Normal <0.11 [facility] Comment on above: Order Comment: Speci men Type: BLOOD SPECIMEN Ordering Facility: [facility] Address: [address] [place] [address] Performed By: #### 5 7021-8 #### [facility] CLIA [id number] [address] [place] [address] [place] Basophils/100 WBC (Bld) 0.2 % Normal [facility] Comment on above: Order Comment: Speci men Type: BLOOD SPECIMEN Ordering Facility: [facility] Address: [address] [place] [address] Performed By: #### 5 7021-8 #### [facility] CLIA [id number] [address] [place] [address] [place] Differential cell count method Nom (Bld) Auto Normal [facility] Comment on above: Order Comment: Speci men Type: BLOOD SPECIMEN Ordering Facility: [facility] Address: [address] [place] [address] Performed By: #### 5 7021-8 #### [facility] CLIA [id number] [address] [place] [address] [place] Eosinophils (Bld) [#/Vol] 0.16 10*3/uL Normal <0.46 [facility] Comment on above: Order Comment: Speci men Type: BLOOD SPECIMEN Ordering Facility: [facility] Address: [address] [place] [address] Performed By: #### 5 7021-8 #### [facility] CLIA [id number] [address] [place] [address] [place] Eosinophils/100 WBC (Bld) 1.9 % Normal [facility] Comment on above: Order Comment: Speci men Type: BLOOD SPECIMEN Ordering Facility: [facility] Address: [address] [place], [place] [address] Performed By: #### 5 7021-8 #### [facility] CLIA [id number] [address] [place] [address] [place] Erythrocyte distribution width (RBC) [Ratio] 16.2 % High 11.5-15.0 [facility] Comment on above: Order Comment: Speci men Type: BLOOD SPECIMEN Ordering Facility: [facility] Address: [address] [place] [address] Performed By: #### 5 7021-8 #### [facility] CLIA [id number] [address] [place] [address] [place] Hematocrit (Bld) [Volume fraction] 38.3 % Low 39.0-51.0 [facility] Comment on above: Order Comment: Speci men Type: BLOOD SPECIMEN Ordering Facility: [facility] Address: [address] [place] [address] Performed By: #### 5 7021-8 #### [facility] CLIA [id number] [address] [place] [address] [place] Hemoglobin (Bld) [Mass/Vol] 12.2 g/dL Low 13.0-17.0 [facility] Comment on above: Order Comment: Speci men Type: BLOOD SPECIMEN Ordering Facility: [facility] Address: [address] [place] [address] Performed By: #### 5 7021-8 #### [facility] CLIA [id number] [address] [place] [address] [place] Immature granulocytes (Bld) [#/Vol] 0.05 10*3/uL Normal <0.10 [facility] Comment on above: Order Comment: Speci men Type: BLOOD SPECIMEN Ordering Facility: [facility] Address: [address] [place] [address] Performed By: #### 5 7021-8 #### [facility] CLIA [id number] [address] [place] [address] [place] Immature granulocytes/100 WBC (Bld) 0.6 % Normal [facility] Comment on above: Order Comment: Speci men Type: BLOOD SPECIMEN Ordering Facility: [facility] Address: [address] [address] Performed By: #### 5 7021-8 #### [facility] CLIA [id number] [address] [place] [address] Lymphocytes (Bld) [#/Vol] 0.83 10*3/uL Low 1.00-4.00 [facility] Comment on above: Order Comment: Speci men Type: BLOOD SPECIMEN Ordering Facility: [facility] Address: [address] [address] Performed By: #### 5 7021-8 #### [facility] CLIA [id number] [address] [place] [address] Lymphocytes/100 WBC (Bld) 9.8 % Normal [facility] Comment on above: Order Comment: Speci men Type: BLOOD SPECIMEN Ordering Facility: [facility] Address: [address] [address] Performed By: #### 5 7021-8 #### [facility] CLIA [id number] [address] [place] [address] [place] MCH (RBC) [Entitic mass] 30.2 pg Normal 26.0-34.0 [facility] Comment on above: Order Comment: Speci men Type: BLOOD SPECIMEN Ordering Facility: [facility] Address: [address] [address] Performed By: #### 5 7021-8 #### [facility] CLIA [id number] [address] [place] [address] [place] MCHC (RBC) [Mass/Vol] 31.9 g/dL Normal 30.5-36.0 [facility] Comment on above: Order Comment: Speci men Type: BLOOD SPECIMEN Ordering Facility: [facility] Address: [address] [address] Performed By: #### 5 7021-8 #### [facility] CLIA [id number] [address] [place] [address] [place] MCV (RBC) [Entitic vol] 94.8 fL Normal 80.0-100.0 [facility] Comment on above: Order Comment: Speci men Type: BLOOD SPECIMEN Ordering Facility: [facility] Address: [address] [address] Performed By: #### 5 7021-8 #### [facility] CLIA [id number] [address] [place] [address] [place] Monocytes (Bld) [#/Vol] 0.68 10*3/uL Normal <0.87 [facility] Comment on above: Order Comment: Speci men Type: BLOOD SPECIMEN Ordering Facility: [facility] Address: [address] [address] Performed By: #### 5 7021-8 #### [facility] CLIA [id number] [address] [place] [address] [place] Monocytes/100 WBC (Bld) 8.0 % Normal [facility] Comment on above: Order Comment: Speci men Type: BLOOD SPECIMEN Ordering Facility: [facility] Address: [address] [address] Performed By: #### 5 7021-8 #### [facility] CLIA [id number] [address] [place] [address] [place] Neutrophils (Bld) [#/Vol] 6.77 10*3/uL Normal 1.45-7.50 [facility] Comment on above: Order Comment: Speci men Type: BLOOD SPECIMEN Ordering Facility: [facility] Address: [address] [address] Performed By: #### 5 7021-8 #### [facility] CLIA [id number] [address] [place] [address] [place] Neutrophils/100 WBC (Bld) 79.5 % Normal [facility] Comment on above: Order Comment: Speci men Type: BLOOD SPECIMEN Ordering Facility: [facility] Address: [address] [address] Performed By: #### 5 7021-8 #### [facility] CLIA [id number] [address] [place] [address] [place] Nucleated RBC (Bld) [#/Vol] 10*3/uL Normal <0.01 [facility] Comment on above: Order Comment: Speci men Type: BLOOD SPECIMEN Ordering Facility: [facility] Address: [address] [place] [address] Performed By: #### 5 7021-8 #### [facility] CLIA [id number] [address] [place] [address] [place] Nucleated RBC/100 WBC (Bld) [Ratio] 0.0 /100 WBC Normal [facility] Comment on above: Order Comment: Speci men Type: BLOOD SPECIMEN Ordering Facility: [facility] Address: [address] [place] [address] Performed By: #### 5 7021-8 #### [facility] CLIA [id number] [address] [place] [address] [place] Platelet mean volume (Bld) [Entitic vol] 10.8 fL Normal 9.0-12.7 [facility] Comment on above: Order Comment: Speci men Type: BLOOD SPECIMEN Ordering Facility: [facility] Address: [address] [place] [address] Performed By: #### 5 7021-8 #### [facility] CLIA [id number] [address] [place] [address] [place] Platelets (Bld) [#/Vol] 129 10*3/uL Low 150-400 [facility] Comment on above: Order Comment: Speci men Type: BLOOD SPECIMEN Ordering Facility: [facility] Address: [address] [place] [address] Result Comment: No c lot detected.Platelet count confirmed by manual review of peripheral blood smear. Performed By: #### 5 7021-8 #### [facility] CLIA [id number] [address] [place] [address] [place] RBC (Bld) [#/Vol] 4.04 10*6/uL Low 4.20-6.00 [facility] Comment on above: Order Comment: Speci men Type: BLOOD SPECIMEN Ordering Facility: [facility] Address: [address] [place] [address] Performed By: #### 5 7021-8 #### [facility] CLIA [id number] [address] [id number] [place] WBC (Bld) [#/Vol] 8.51 10*3/uL Normal 3.70-11.00 [facility] Comment on above: Order Comment: Speci men Type: BLOOD SPECIMEN Ordering Facility: [facility] Address: [place] [address] Performed By: #### 5 7021-8 #### [facility] CLIA [id number] [address] [id number] [place] CONSULT PROGon 02-25-2023 CONSULT PROG HNO ID: [id number] Author: Norberto Kennedy PA-C Service: Pain Management Author Type: Physician Front End Wheel Loader Operator Type: Consult Progress Note Filed: 02/25/2023 8:26 AM Note Text: PERIPHERAL NERVE CATHETER PROGRESS NOTE PATIENT NAME: Yoni Ramirez SERVICE DATE: 02/25/2023 SERVICE TIME: 8:24 AM ASSESSMENT Yoni Ramirez is a 77 year old male who is POD# 2, S/P .Attempted aakk-xwv-soolv repair of L femoral hernia Excision of previously implanted mesh Exploratory laparotomy Bilateral TAR Implantation of 30 x 30 cm prolene mesh Patient reports good pain control 0/10 with rest. BTAPS running ropiv 0.2% @ 6 ml Q 30 min. PLAN Continue current pain regimen, will follow. SUBJECTIVE CHIEF COMPLAINT: POD# 1, S/P .Attempted rmue-elk-jmsmz repair of L femoral hernia Excision of [...] which included preparing to see the patient, ihuu-um-bwem patient care, completing clinical documentation, obtaining and/or reviewing separately obtained history, and performing a medically appropriate examination. SIGNATURE: Norberto Kennedy PA-C PATIENT NAME: Yoni Ramirez DATE: February 25, 2023 TIME: 8:24 AM PAGER/CONTACT #: [facility] [phone] Normal [facility] Magnesium [facility] 02-25 Magnesium [Mass/Vol] 1.9 mg/dL Normal 1.7-2.3 [facility] Comment on above: Order Comment: Speci men Type: BLOOD SPECIMENOrdering Facility: [facility] Address: [address] [place], [place] [phone] Performed By: #### 1 9123-9, 2777-1, 47040-5 ####[facility]ORYCLIA [id number] [address] NURSING PROGon 02-25-2023 NURSING PROG HNO ID: [id number] Author: Ritchie Wright RN Service: ? Author Type: Registered Nurse Type: Nursing Progress Note Filed: 02/25/2023 7:24 PM Note Text: 0918: ambulated with assistance to chair C/o dizziness after rising BP:120/59 pulse 73 94% 3L. Pt. Drowsy, oriented to person, place, time delirious/confused with situation. Surgical team made aware. 1050: Pt disconnected Left tap block. Block stopped pain management made aware. [facility] NURSING PROG HNO ID: [id number] Author: Christie Mayberry RN Service: Nursing Author Type: Registered Nurse Type: Nursing Progress Note Filed: 02/25/2023 4:44 AM Note Text: 0443: Pt's oxygen sating at 90% on 2L. Denies SOB. Placed on 3L NC until CPAP arrives. Pt's home unit unable to hook to O2. IS use encouraged. Normal [facility] Phosphate [facility] 02-25 Phosphate [Mass/Vol] 1.4 mg/dL Low 2.7-4.8 [facility] Comment on above: Order Comment: Speci men Type: BLOOD SPECIMENOrdering Facility: [facility] Address: [address] [phone] Performed By: #### 1 9123-9, 2777-1, 47513-5 ####[facility]ORYCLIA [id number] [address] [id number] [facility] [place] BRIEF OP NOTon 02-24-2023 BRIEF OP NOT HNO ID: [id number] Author: Sergio Webster MD Service: Critical Care Author Type: Resident Type: Brief Op Note Filed: 02/23/2023 10:28 PM Note Text: BRIEF OPERATIVE / PROCEDURE NOTE LOG ID: [id number] SURGERY/PROCEDURE DATE: 02/23/2023 INCISION/PROCEDURE START TIME: 3:01 PM INCISION CLOSE/PROCEDURE END TIME: 10:28 PM SURGEON(S)/PROCEDURALIST(S ) AND PERFORMANCE IMPROVEMENT COORDINATOR(S): Surgeon(s) and Role: * Donato Bishop MD - Primary * Jacky Curiel MD - Resident - Assisting * Sergio Webster MD - Resident - Assisting * Carolina Lorenz MD - Resident - Assisting * Loyd Floyd MD - Fellow No Additional Staff SURGERY/PROCEDURE(S): Attempted yqyb-qxd-qzuov repair of L femoral hernia Excision of [...] February 23, 2023 TIME: 10:24 PM Normal [facility] Basic metabolic 2000 panelon 02-24-2023 Anion gap [Moles/Vol] 8 mmol/L Low 9-18 [facility] Comment on above: Order Comment: Speci men Type: BLOOD SPECIMEN Ordering Facility: [facility] Address: [address] [place] [address] Performed By: #### 2 4321-2, 10032-8 #### [facility] CLIA [id number] [place] [address] [place] Calcium [Mass/Vol] 8.6 mg/dL Normal 8.5-10.2 [facility] Comment on above: Order Comment: Speci men Type: BLOOD SPECIMEN Ordering Facility: [facility] Address: [address] [place] [address] Performed By: #### 2 2, #### [facility] CLIA [id number] [address] [place] [address] [place] Chloride [Moles/Vol] 105 mmol/L Normal 97-105 [facility] Comment on above: Order Comment: Speci men Type: BLOOD SPECIMEN Ordering Facility: [facility] Address: [address] [place] [address] Performed By: #### 2 4322, #### [facility] CLIA [id number] [address] [place] [address] [place] CO2 [Moles/Vol] 27 mmol/L Normal 22-30 [facility] Comment on above: Order Comment: Speci men Type: BLOOD SPECIMEN Ordering Facility: [facility] Address: [address] [place] [address] Performed By: #### 2 2, #### [facility] CLIA [id number] [address] [place] [address] [place] Creatinine [Mass/Vol] 0.61 mg/dL Low 0.73-1.22 [facility] Comment on above: Order Comment: Speci men Type: BLOOD SPECIMEN Ordering Facility: [facility] Address: [address] [place] [address] Performed By: #### 2 4320-11, #### [facility] CLIA [id number] [address] [place] [address] [place] ESTIMATED GLOMERULAR FILTRATION RATE 100 mL/min/1.73m??? Normal >=60 [facility] Comment on above: Order Comment: Speci men Type: BLOOD SPECIMEN Ordering Facility: [facility] Address: [address] [place] [address] Result Comment: Trena mated Glomerular Filtration Rate [...] reflect actual GFR. Performed By: #### 2 4320-11, #### [facility] CLIA [id number] [address] [place] [address] [place] Glucose [Mass/Vol] 163 mg/dL High 74-99 [facility] Comment on above: Order Comment: John chan Type: BLOOD SPECIMEN Ordering Facility: [facility] Address: [address] [address] Result Comment: The [place] [employer] (ADA) provides guidance for cutoff [...] Standards of Medical Care in Diabetes 2016, [place] [employer]. Diabetes Care. 2016.39(Suppl 1). Performed By: #### 2 4320-11, #### [facility] CLIA [id number] [address] [place] [address] [place] Potassium [Moles/Vol] 3.8 mmol/L Normal 3.7-5.1 [facility] Comment on above: Order Comment: John chan Type: BLOOD SPECIMEN Ordering Facility: [facility] Address: [address] [phone] Performed By: #### 2 4320-11, #### [facility] CLIA [id number] [place] [address] [place] Sodium [Moles/Vol] 140 mmol/L Normal 136-144 [facility] Comment on above: Order Comment: John chan Type: BLOOD SPECIMEN Ordering Facility: [facility] Address: [address] [place] [address] Performed By: #### 2 4321-2, #### [facility] CLIA [id number] [address] [place] [address] [place] Urea nitrogen [Mass/Vol] 11 mg/dL Normal 9-24 [facility] Comment on above: Order Comment: Speci men Type: BLOOD SPECIMEN Ordering Facility: [facility] Address: [address] [address] Performed By: #### 2 432-2, #### [facility] CLIA [id number] [address] [place] [address] [place] CBC panel Auto (Bld)on 02-24 Erythrocyte distribution width (RBC) [Ratio] 16.0 % High 11.5-15.0 [facility] Comment on above: Order Comment: Speci men Type: BLOOD SPECIMEN Ordering Facility: [facility] Address: [address] [place] [address] Performed By: #### 5 8410-2 #### [facility] CLIA [id number] [address] [place] [address] [place] Hematocrit (Bld) [Volume fraction] 38.3 % Low 39.0-51.0 [facility] Comment on above: Order Comment: Speci men Type: BLOOD SPECIMEN Ordering Facility: [facility] Address: [address] [place] [address] Performed By: #### 5 8410-2 #### [facility] CLIA [id number] [address] [place] [address] [place] Hemoglobin (Bld) [Mass/Vol] 12.8 g/dL Low 13.0-17.0 [facility] Comment on above: Order Comment: Speci men Type: BLOOD SPECIMEN Ordering Facility: [facility] Address: [address] [place] [address] Performed By: #### 5 8410-2 #### [facility] CLIA [id number] [address] [place] [address] [place] MCH (RBC) [Entitic mass] 30.3 pg Normal 26.0-34.0 [facility] Comment on above: Order Comment: Speci men Type: BLOOD SPECIMEN Ordering Facility: [facility] Address: [address] [place] [address] Performed By: #### 5 8410-2 #### [facility] CLIA [id number] [address] [place] [address] [place] MCHC (RBC) [Mass/Vol] 33.4 g/dL Normal 30.5-36.0 [facility] Comment on above: Order Comment: Speci men Type: BLOOD SPECIMEN Ordering Facility: [facility] Address: [address] [place] [address] Performed By: #### 5 8410-2 #### [facility] CLIA [id number] [address] [place] [address] [place] MCV (RBC) [Entitic vol] 90.8 fL Normal 80.0-100.0 [facility] Comment on above: Order Comment: Speci men Type: BLOOD SPECIMEN Ordering Facility: [facility] Address: [address] [address] Performed By: #### 5 8410-2 #### [facility] CLIA [id number] [address] [place] [address] [place] Nucleated RBC (Bld) [#/Vol] 10*3/uL Normal <0.01 [facility] Comment on above: Order Comment: Speci men Type: BLOOD SPECIMEN Ordering Facility: [facility] Address: [address] [address] Performed By: #### 5 8410-2 #### [facility] CLIA [id number] [address] [place] [address] [place] Platelet mean volume (Bld) [Entitic vol] 11.3 fL Normal 9.0-12.7 [facility] Comment on above: Order Comment: Speci men Type: BLOOD SPECIMEN Ordering Facility: [facility] Address: [address] [place] [address] Performed By: #### 5 8410-2 #### [facility] CLIA [id number] [address] [place] [address] [place] Platelets (Bld) [#/Vol] 146 10*3/uL Low 150-400 [facility] Comment on above: Order Comment: Speci men Type: BLOOD SPECIMEN Ordering Facility: [facility] Address: [address] [place] [address] Performed By: #### 5 8410-2 #### [facility] CLIA [id number] [address] [place] [address] [place] RBC (Bld) [#/Vol] 4.22 10*6/uL Normal 4.20-6.00 [facility] Comment on above: Order Comment: Speci men Type: BLOOD SPECIMEN Ordering Facility: [facility] Address: [address] [place] [address] Performed By: #### 5 8410-2 #### [facility] CLIA [id number] [place] [address] [place] WBC (Bld) [#/Vol] 10.56 10*3/uL Normal 3.70-11.00 [facility] Comment on above: Order Comment: Speci men Type: BLOOD SPECIMEN Ordering Facility: [facility] Address: [address] [place] [address] Performed By: #### 5 8410-2 #### [facility] CLIA [id number] [address] [place] [address] OF [facility] CONSULT PROGon 02-24-2023 CONSULT PROG HNO ID: [id number] Author: Norberto Kennedy PA-C Service: Pain Management Author Type: Physician Front End Wheel Loader Operator Type: Consult Progress Note Filed: 02/24/2023 8:51 AM Note Text: PERIPHERAL NERVE CATHETER PROGRESS NOTE PATIENT NAME: Yoni Ramirez SERVICE DATE: 02/24/2023 SERVICE TIME: 8:37 AM ASSESSMENT Yoni Ramirez is a 77 year old male who is POD# 1, S/P .Attempted zfuk-cbg-geszd repair of L femoral hernia Excision of [...] SUBJECTIVE CHIEF COMPLAINT: POD# 1, S/P .Attempted qjcr-bxm-wvbkz repair of L femoral hernia Excision of [...] which included preparing to see the patient, xgwt-hm-ayig patient care, completing clinical documentation, obtaining and/or reviewing separately obtained history, performing a medically appropriate examination, and care coordination (not separately reported). SIGNATURE: Norberto Kennedy PA-C PATIENT NAME: Yoni Ramirez DATE: February 24, 2023 TIME: 8:37 AM PAGER/CONTACT #: [facility] [phone] [facility] [Mass/Vol] 1.8 mg/dL Normal 1.7-2.3 [facility] Comment on above: Order Comment: Speci men Type: BLOOD SPECIMEN Ordering Facility: [facility] Address: [address] [place] [address] Performed By: #### 2 4321-2, 62181-4 #### [facility] CLIA [id number] [address] [place] [address] [place] NURSING PROGon 02-24-2023 NURSING PROG HNO ID: [id number] Author: Aminah Dos Santos RN Service: ? [...] Infusing as ordered . Ice provided. [facility] THERAPY NTon 02-24-2023 THERAPY NT HNO ID: [id number] Author: Ree Gardner, PT Service: Physical Therapy Author Type: Physical Therapist Type: Therapy (PT/OT/Speech/Resp) Filed: 02/24/2023 4:39 PM Note Text: Physical Therapy Evaluation SERVICE DATE: 02/24/2023 SERVICE TIME: 1600 to 1633 ROOM: [place] [address] Recommended Discharge Disposition: Home Recommended Discharge Disposition [...] Surgery For Left Inguinal Hernia, S/P Attempted Geee-Zgs-Edrlm Repair Of Left Femoral Hernia, Excision Of Previously Implanted Mesh, Exploratory Laparotomy, Bilateral TAR, Implantation Of 30 x 30 cm Prolene Mesh 02/23/23 Reason for Hospital Admission: Scheduled Surgery For Left Inguinal Hernia, S/P Attempted Pttl-Cjb-Bluaa Repair Of Left Femoral Hernia, Excision Of [...] Comment Comments: In one level home in [place], [place] Assistance Available: PRN Entry To Home: [...] Reduced mobility-other Interventions Provided: Evaluation, Therapeutic Activity (28848) $ Evaluation-Moderate (62085) Billed Units: 1 unit Therapeutic Activity (61954) Treatment Minutes: 15 $ Therapeutic Activity (28432) Billed Units: 1 unit Training AND Education Provided in: Anatomy and Impact on Deficits, Assistive Device Use, Benefits of In-Hospital Mobility, Disease Specific Education, Expected Functional Level The Following Therapeutic Skills Were Used: Activity Dosing, Cues for Sequencing/Proper Technique for Activity, Cuing Verbal, Muscl (more content not included)... [facility] THERAPY NT HNO ID: [id number] Author: VIKA Hall/Adriel Service: Occupational Therapy Author Type: Occupational Therapist Type: Therapy (PT/OT/Speech/Resp) Filed: 02/24/2023 1:09 PM Note Text: Occupational Therapy Evaluation SERVICE DATE: 02/24/2023 SERVICE TIME: 839 to 917 ROOM: [place] [address] Scheduled Surgery For Left Inguinal Hernia, S/P Attempted Bkzs-Myt-Nhbvz Repair Of Left Femoral Hernia, Excision Of [...] Shoe Horn, Long Handled Sponge, Wheeled Walker, Proposal Manager Writer, Sock Aid, Shower Chair OT 6 Clicks Score: 17 Precautions/Activity Restrictions: Abdominal, Bed/Chair Alarm, Fall Risk, Lines/Tubes/Drains, Diet Restrictions, Other: See Comments (Clear Liquid Diet, 2L 02 this date) Current Hospital Course: Scheduled Surgery For Left Inguinal Hernia, S/P Attempted Kuwz-Xxx-Nyahw Repair Of Left Femoral Hernia, Excision Of Previously Implanted Mesh, Exploratory Laparotomy, Bilateral TAR, Implantation Of 30 x 30 cm Prolene Mesh 02/23/23 Reason for Hospital Admission: Scheduled Surgery For Left Inguinal Hernia, S/P Attempted Bkrq-Vhk-Urjlm Repair Of Left Femoral Hernia, Excision Of [...] Comment Comments: In one level home in [place], [place] Assistance Available: PRN Entry To Home: [...] situation 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 [facility] THERAPY NT HNO ID: [id number] Author: VIKA Hall/Adriel Service: Occupational Therapy Author Type: Occupational Therapist Type: Therapy (PT/OT/Speech/Resp) Filed: 02/24/2023 12:40 PM Note Text: OCCUPATIONAL THERAPY MISSED VISIT SERVICE DATE: 02/24/2023 SERVICE TIME: 0832 to 0832 ROOM: [place] [address] Patient not seen due to other service at bedside. Will see as able. SIGNATURE: VIKA Hall/Adriel PATIENT NAME: Yoni Ramirez DATE: February 24, 2023 TIME: 8:37 AM [facility] ANES PRE-OPon 02-23-2023 ANES PRE-OP HNO ID: [id number] Author: Stefanie Hitchcock APRN.CRNA Service: Anesthesiology Author Type: Nurse Non Destructive Testing Technician Type: Anesthesia Preprocedure Evaluation Filed: 02/23/2023 2:26 [...] and consent discussed: yes. Patient / Responsible Constitution Party agrees to proceed: yes Patient / [...] affected area twice daily. As needed) - lisinopril-hydroCHLOROthia zide (PRINZIDE, ZESTORETIC) 20-25 mg per tablet Take 1 tablet by mouth once daily. I have interviewed and examined the patient. I have reviewed the medical record and/or the pre-anesthesia evaluation, pertinent labs, and test results. This contains updated information obtained within 48 hours of Surgery/Procedure. SIGNATURE: Stefanie Hitchcock APRN.SUPERVISOR DRIED [employer] PATIENT NAME: Yoni Ramirez DATE: February 23, 2023 TIME: 2:24 PM CSN: [id number] [facility] PT EDon 02-23-2023 PT ED HNO ID: [id number] Author: Cecilia Jensen RN Service: ? Author [...] (RECOMMENDATION): None Electronically Signed By: Cecilia Jensen [facility] PT ED HNO ID: [id number] Author: Cecilia Jensen RN Service: ? Author [...] (RECOMMENDATION): None Electronically Signed By: Cecilia Jensen [facility] SURGICAL PATHOLOGYon 023 CASE REPORT [facility] Comment on above: Order Comment: Speci men Type: BLOOD SPECIMEN Ordering Facility: [facility] Address: [address] [place] [id number] Result Comment: Surg ical Pathology Report Case: [id number] Authorizing Provider: Donato Bishop MD Collected: 02/23/2023 05:38 PM [facility] Received: 02/26/2023 08:20 AM Operating Room Pathologist: Keara Hernandez MD Specimen: RETROPERITONEUM BIOPSY, peritoneal mass Performed By: #### 2 4321-2, 79540-1 #### [facility] CLIA [id number] [address] [place] [address] CLINICAL HISTORY w/mesh [facility] Comment on above: Order Comment: Speci men Type: BLOOD SPECIMEN Ordering Facility: [facility] Address: [address] [place] [address] Result Comment: Pre-op diagnosis: Unilateral recurrent inguinal hernia without obstruction or gangrene [K40.91] Performed By: #### 2 4321-2, 06623-0 #### [facility] CLIA [id number] [address] [place] [address] FINAL DIAGNOSIS [facility] Comment on above: Order Comment: Speci men Type: BLOOD SPECIMEN Ordering Facility: [facility] Address: [address] [place] [address] Result Comment: Ramirez kellogg, biopsy: - Degenerating fibroadipose tissue with dystrophic calcification. Performed By: #### 2 4321-2, #### [facility] CLIA [id number] [address] [place] [address] FINAL PERFORMING LAB Normal [facility] Comment on above: Order Comment: Speci men Type: BLOOD SPECIMEN Ordering Facility: [facility] Address: [address] [place] [address] Result Comment: Diag nostic interpretation performed at [facility], [address] [place] [address] CLIA# [id number] Helper Electrical: Keara Hernandez M.D. Performed By: #### 2 432-2, 87261-4 #### [facility] CLIA [id number] [address] [place] [address] GROSS DESCRIPTION Normal [facility] Comment on above: Order Comment: Speci men Type: BLOOD SPECIMEN Ordering Facility: [facility] Address: [address] [place] [address] Result Comment: A. R ETROPERITONEUM BIOPSY Received [...] 2023 10:38 AM Gross examination performed at [facility] [place] [facility], [address] [place] [address] CLIA # [id number] Performed By: #### 2 4321-2, 19589-7 #### [facility] CLIA [id number] [address] [place] [address] OF [place] TYPE + SCREENon 02-23-2023 ABO A [facility] Comment on above: Order Comment: Speci men Type: BLOOD SPECIMENOrdering Facility: [facility] Address: [address] [place] [address] Performed By: #### T SCR ####[facility] [id number] [address] Performed By: #### C ONABO ####[facility] [id number] [address] [place] HISTORICAL AB SCR STATUS Negative [facility] Comment on above: Order Comment: Speci men Type: BLOOD SPECIMENOrdering Facility: [facility] Address: [address] [place] [address] Performed By: #### T SCR ####[facility] [id number] [address] OF [place] Rh Nom (Bld) Positive [facility] Comment on above: Order Comment: Speci men Type: BLOOD SPECIMENOrdering Facility: [facility] Address: [address] [place] [address] Performed By: #### T SCR ####[facility] [id number] [place] [id number] [facility] Performed By: #### C ONABO ####[facility] [id number] [place] [id number] [facility] TYPE AND SCREEN EXPIRATION 02/26/2023 23:59 [facility] Comment on above: Order Comment: Speci men Type: BLOOD SPECIMENOrdering Facility: [facility] Address: [address] [place] [address] Performed By: #### T SCR ####[facility] [id number] [place] [id number] [facility] CBC AUTO DIFFon 02-21-2023 BASO # 0.0 103/ul Normal 0.0-0.1 [facility] Comment on above: Performed By: #### C BC ####[facility] [address] [place], [place] [address]Dr. Alex Eddy Basophils/100 WBC (Bld) 0.5 % Normal 0.2-2.0 [facility] Comment on above: Performed By: #### C BC ####[facility] [address] [place], [place] [address]Dr. Alex Eddy EO # 0.2 103/ul Normal 0.0-0.7 [facility] Comment on above: Performed By: #### C BC ####[facility] [address] [place] [address]Dr. Alex Eddy Eosinophils/100 WBC (Bld) 4.0 % Normal 0.9-7.0 [facility] Comment on above: Performed By: #### C BC ####[facility] [address] [place], [place] [address]Dr. Alex Eddy Erythrocyte distribution width (RBC) [Ratio] 16.3 % Critically high 11.0-15.0 [facility] Comment on above: Performed By: #### C BC ####[facility] [address] [place] [address]Dr. Alex Eddy Hematocrit (Bld) [Volume fraction] 43.3 % Normal 42.0-54.0 [facility] Comment on above: Performed By: #### C BC ####[facility] [address] [place] [address]Dr. Alex Eddy Hemoglobin (Bld) [Mass/Vol] 14.0 g/dL Normal 14.0-18.0 [facility] Comment on above: Performed By: #### C BC ####[facility] [address] [place] [address]Dr. Alex Eddy IG # 0.02 10e3/ul Normal 0.00-0.03 [facility] Comment on above: Performed By: #### C BC ####[facility] [address] [place] [address]Dr. Alex Eddy IG % 0.4 % Normal 0.0-0.5 [facility] Comment on above: Performed By: #### C BC ####[facility] [address] [place] [address]Dr. Gretelmickey Eddy LYMPH # 1.1 103/ul Critically low 1.2-3.8 [facility] Comment on above: Performed By: #### C BC ####[facility] [address] [place] [address]DrBrian Gretelmickey Eddy Lymphocytes/100 WBC (Bld) 19.5 % Critically low 20.5-60.0 [facility] Comment on above: Performed By: #### C BC ####[facility] [address] [place] [address]DrBrian Gretelmickey Eddy MANUAL DIFF REQ NO Normal [facility] Comment on above: Performed By: #### C BC ####[facility] Lisaeviuqj[address] [place] [address]DrBrian Gretelmickey Eddy MCH (RBC) [Entitic mass] 30.1 pg Normal 25.9-34.0 [facility] Comment on above: Performed By: #### C BC ####[facility] Y[address] [place], [place] [address]Dr. Alex Eddy MCHC (RBC) [Mass/Vol] 32.3 g/dL Normal 29.9-35.2 [facility] Comment on above: Performed By: #### C BC ####[facility] [address] [place] [address]Dr. Alex Surjit MCV (RBC) [Entitic vol] 93.1 fL Normal 80.0-94.0 [facility] Comment on above: Performed By: #### C BC ####[facility] [address] [place] [address]Dr. Alex Surjit MONO # 0.7 103/ul Normal 0.3-0.8 [facility] Comment on above: Performed By: #### C BC ####[facility] [address] [place] [address]Dr. Alex Eddy Monocytes/100 WBC (Bld) 11.9 % Normal 1.7-12.0 [facility] Comment on above: Performed By: #### C BC ####[facility] [address] [place] [address]Dr. Alex Surjit NEUT # 3.5 103/ul Normal 1.4-6.5 [facility] Comment on above: Performed By: #### C BC ####[facility] [address]lzfmt[address] [place] [address]Dr. Alex Surjit Neutrophils/100 WBC (Bld) 63.7 % Normal 43.0-75.0 [facility] Comment on above: Performed By: #### C BC ####[facility] [address] [place] [address]Dr. Alex Surjit Platelet mean volume (Bld) [Entitic vol] 10.9 fL Normal 9.5-13.5 [facility] Comment on above: Performed By: #### C BC ####[facility] [address] [place] [address]Dr. Gretelmickey Surjit PLT 168 103/ul Normal 150-450 [facility] Comment on above: Performed By: #### C BC ####[facility] [address] [place] [address]Dr. Alex Eddy RBC 4.65 106/ul Critically low 4.70-6.10 [facility] Comment on above: Performed By: #### C BC ####[facility] [address] [place], [place] [address]Ax. Alex Eddy WBC 5.5 103/ul Normal 4.0-11.0 [facility] Comment on above: Performed By: #### C BC ####[facility] [address] [place] [address]Dr. Alex Eddy CRPon 02-21-2023 CRP 0.3 mg/dL Normal <=1.0 [facility] Comment on above: Performed By: #### C RP #### [facility] [address] [place] [address] [address] Alex Eddy SED RATE WESTERGRENon 2022 SED RATE 37 mm/hr Critically high <=20 [facility] Comment on above: Performed By: #### S EDR #### [facility] [address] [place] [address] [address] Alex Eddy CBC W Auto Differential pane l (Bld)on 02-14-2023 Basophils (Bld) [#/Vol] 0.05 10*3/uL <0.11 k/uL [facility] Basophils/100 WBC (Bld) 0.7 % [facility] Differential cell count method Nom (Bld) Auto [facility] Eosinophils (Bld) [#/Vol] 0.29 10*3/uL <0.46 k/uL [...] (Bld) [#/Vol] 0.91 10*3/uL High <0.87 k/uL [facility] Monocytes/100 WBC (Bld) 13.5 % [facility] Neutrophils (Bld) [#/Vol] 4.06 10*3/uL 1.45 - 7.50 k/uL [facility] Neutrophils/100 WBC (Bld) 60.2 % [facility] Nucleated RBC (Bld) [#/Vol] <0.01 k/uL [facility] Nucleated RBC/100 WBC (Bld) [Ratio] 0.0 /100 WBC [facility] Platelet mean volume (Bld) [Entitic vol] 10.8 fL 9.0 - 12.7 fL [facility] Platelets (Bld) [#/Vol] 191 10*3/uL 150 - 400 k/uL [facility] RBC (Bld) [#/Vol] 4.76 10*6/uL 4.20 - 6.00 m/uL [facility] WBC (Bld) [#/Vol] 6.75 10*3/uL 3.70 - 11.00 k/uL [facility] MRI PELVIS WO/W [...] Left hernia contains a loop of colon Embedded Systems Software Developer: ROSANA Transcribe Date/Time: Dec 07 2022 9:43A Dictated by : EVANS ADAM MD This examination was interpreted and the report reviewed and electronically signed by: EVANS ADAM MD on Dec 07 2022 10:19AM EST [id number] [facility] NURSING PROGon 12-06-2022 NURSING PROG HNO ID: [id number] Author: Melanie Pierre RN Service: Nursing Author [...] DATE: December 06, 2022 TIME: 9:07 AM [facility] ALLIED HEALTHon 12-04-2022 ALLIED HEALTH HNO ID: [id number] Author: ROSY Campoverde Service: Radiology Author Type: Research Compliance Specialist Type: Allied Health Filed: 12/04/2022 4:34 PM [...] ROSY Campoverde December 04, 2022 4:33 PM [facility] MRI PELVIS WO/W IVCONon 11-16 MRI PELVIS WO/W IVCON * * *Final Report* * * DATE OF EXAM: Dec 04 2022 4:56PM [facility] 0742 - MRI PELVIS WO/W IVCON / [...] Left hernia contains a loop of colon Embedded Systems Software Developer: [facility] Transcribe Date/Time: Dec 07 2022 9:43A Dictated by : EVANS ADAM MD This examination was interpreted and the report reviewed and electronically signed by: EVANS ADAM MD on Dec 07 2022 10:19AM EST [id number] [facility] NURSING PROGon 12-04-2022 NURSING PROG HNO ID: [id number] Author: Sima Craig RN Service: Nursing Author [...] December 04, 2022 TIME: 2:36 PM [facility] AFP (TUMOR MARKER)on 023 AFP, Serum, Tumor Marker <1.8 Normal 0.0-8.4 [facility] Comment on above: Result Comment: Shout Electrochemiluminescence Immunoassay (ECLIA) . Values obtained with different assay methods or kits cannot be used interchangeably. Results cannot be interpreted as absolute evidence of the presence or absence of malignant disease. . This test is not interpretable in females. Performed By: #### A FP. #### [facility] [address] [place] [address] Dr. Alex Eddy HCG QUANT TUMOR MARKERon HCG QNT TUMOR MARKER <1 Normal 0-3 [facility] Comment on above: Result Comment: Shout Electrochemiluminescence Immunoassay (ECLIA) . The [employer] [...] developed and its performance characteristics determined by [employer]. It has not been cleared or approved by the Food and Drug Administration for use as a tumor marker. . This test is not interpretable as a tumor marker in females. Performed By: #### H CGTMOR #### [facility] [address] [place] [address] Dr. Alex Eddy CREATININEon 11-06-2022 Creatinine [Mass/Vol] 0.60 mg/dL Critically low 0.70-1.30 [facility] Comment on above: Performed By: #### C SILVANA #### [facility] [address] [address] [address] Alex Eddy EGFR-AF SLOVAK >60 Normal >=60 [facility] Comment on above: Performed By: #### C SILVANA #### [facility] [address] [address] [address] Alex Eddy EGFR-NON AF SLOVAK >60 Normal >=60 [facility] Comment on above: Performed By: #### C SILVANA #### [facility] [address] [place], [place] [address] CHEST W CONon [...] MIKE LYNCH Date: 2022-11-06 15:28 Normal [facility] LDHon 11-06-2022 LDH 158 U/L Normal 85-227 [facility] Comment on above: Performed By: #### L #### [facility] [address] [place] [address] Dr. Alex Eddy US SCROTUMon 10-11-2022 US [...] by: CASSIDY SAMUEL Date: 2022-10-11 16:29 Normal [facility] US SCROTUMon 08-06-2022 US SCROTUM EXAMINATION: [...] by: CASSIDY SAMUEL Date: 2022-08-06 16:20 Normal [facility] Vital Signs Date Time Vital Sign Value Performing Clinician Facility 10-29-2024 11:09-0500 Body height 177.8 cm Don Joseph DO Work Phone: [facility] 10-29-2024 11:09-0500 Body mass index (BMI) [Ratio] 33.4 kg/m2 Don Joseph DO Work Phone: [facility] 10-29-2024 11:09-0500 Body weight 105.6 kg Don Joseph DO Work Phone: [facility] 10-29-2024 11:09-0500 Diastolic blood pressure 70 mm[Hg] Don Joseph DO Work Phone: [facility] 10-29-2024 11:09-0500 Heart rate 60 /min Don Joseph DO Work Phone: [facility] 10-29-2024 11:09-0500 Systolic blood pressure 132 mm[Hg] Don Joseph DO Work Phone: [facility] 10-27-2024 15:23-0500 Body height 177.8 cm [facility] 10-27-2024 15:23-0500 Body mass index (BMI) [Ratio] 33.3 kg/m2 [facility] 10-27-2024 15:23-0500 Body weight 105.46 kg [facility] 10-27-2024 15:23-0500 Diastolic blood pressure 82 mm[Hg] [facility] 10-27-2024 15:23-0500 Heart rate 59 /min [facility] 10-27-2024 15:23-0500 Respiratory rate 12 /min [facility] 10-27-2024 15:23-0500 Systolic blood pressure 181 mm[Hg] [facility] 09-05-2024 14:42-0500 Body height 177.8 cm [facility] 09-05-2024 14:42-0500 Body mass index (BMI) [Ratio] 32.8 kg/m2 [facility] 09-05-2024 14:42-0500 Body weight 103.98 kg [facility] 09-05-2024 14:42-0500 Diastolic blood pressure 66 mm[Hg] [facility] 09-05-2024 14:42-0500 Heart rate 56 /min [facility] 09-05-2024 14:42-0500 Respiratory rate 12 /min [facility] 09-05-2024 14:42-0500 Systolic blood pressure 135 mm[Hg] [facility] 07-30-2024 15:50-0400 Body height 177.8 cm DO Bro Ball Work Phone: [facility] 07-30-2024 15:50-0400 Body mass index (BMI) [Ratio] 32.4 kg/m2 DO Bro Ball Work Phone: [facility] 07-30-2024 15:50-0400 Body weight 102.51 kg DO Bro Ball Work Phone: [facility] 07-30-2024 15:50-0400 Diastolic blood pressure 84 mm[Hg] DO Bro Ball Work Phone: [facility] 07-30-2024 15:50-0400 Heart rate 62 /min DO Bro Ball Work Phone: [facility] 07-30-2024 15:50-0400 Respiratory rate 12 /min DO Bro Ball Work Phone: [facility] 07-30-2024 15:50-0400 Systolic blood pressure 161 mm[Hg] DO Bro Ball Work Phone: [facility] 07-24-2024 17:24-0400 Diastolic blood pressure 49 mm[Hg] DO Bro Ball Work Phone: [facility] 07-24-2024 17:24-0400 Heart rate 56 /min DO Bro Ball Work Phone: [facility] 07-24-2024 17:24-0400 Respiratory rate 16 /min DO Bor Ball Work Phone: [facility] 07-24-2024 17:24-0400 SaO2% (BldA) [Mass fraction] 91 % DO Bro Ball Work Phone: [facility] 07-24-2024 17:24-0400 Systolic blood pressure 94 mm[Hg] DO Bro Ball Work Phone: [facility] 07-24-2024 12:22-0400 Body height 175.26 cm DO Bro Ball Work Phone: [facility] 07-24-2024 12:22-0400 Body temperature 97.6 [degF] DO Bro Ball Work Phone: [facility] 07-24-2024 12:22-0400 Body weight 102 kg DO Bro Ball Work Phone: [facility] 07-22-2024 11:14-0400 Diastolic blood pressure 60 mm[Hg] Don Joseph DO Work Phone: [facility] 07-22-2024 11:14-0400 Systolic blood pressure 138 mm[Hg] Don Joseph DO Work Phone: [facility] 07-22-2024 11:130400 Body height 177.8 cm Don Joseph DO Work Phone: [facility] 07-22-2024 11:13-0400 Body mass index (BMI) [Ratio] 32.46 kg/m2 Don Joseph DO Work Phone: [facility] 07-22-2024 11:130400 Body weight 102.6 kg Don Joseph DO Work Phone: [facility] 07-22-2024 11:13-0400 Heart rate 51 /min Don Joseph DO Work Phone: [facility] 07-18-2024 11:31-0400 Body height 177.8 cm [facility] 07-18-2024 11:31-0400 Body mass index (BMI) [Ratio] 32.3 kg/m2 [facility] 07-18-2024 11:31-0400 Body weight 102.28 kg [facility] 07-18-2024 11:31-0400 Diastolic blood pressure 66 mm[Hg] [facility] 07-18-2024 11:31-0400 Heart rate 56 /min [facility] 07-18-2024 11:31-0400 Respiratory rate 12 /min [facility] 07-18-2024 11:31-0400 Systolic blood pressure 125 mm[Hg] [facility] 07-02-2024 16:090400 Body height 177.8 cm [facility] 07-02-2024 16:09-0400 Body mass index (BMI) [Ratio] 32.1 kg/m2 [facility] 07-02-2024 16:090400 Body weight 101.66 kg [facility] 07-02-2024 16:09-0400 Diastolic blood pressure 70 mm[Hg] [facility] 07-02-2024 16:09-0400 Heart rate 59 /min [facility] 07-02-2024 16:09-0400 Respiratory rate 12 /min [facility] 07-02-2024 16:09-0400 Systolic blood pressure 143 mm[Hg] [facility] 06-04-2024 09:21-0400 Diastolic blood pressure 78 mm[Hg] Radha Lue [facility] 06-04-2024 09:21-0400 Mean blood pressure 99 mm[Hg] Radha Lue [facility] 06-04-2024 09:21-0400 Systolic blood pressure 142 mm[Hg] Radha Lue [facility] 06-04-2024 09:03-0400 Blood Pressure Location Radha Lue [facility] 06-04-2024 09:03-0400 Heart rate 56 /min Radha Lue [facility] 06-04-2024 09:03-0400 Systolic blood pressure 146 mm[Hg] Radha Lue [facility] 05-20-2024 12:58-0400 Body mass index (BMI) [...] [facility] 02-12-2024 10:44-0400 Body height 177.8 cm [facility] 02-12-2024 10:44-0400 Body mass index (BMI) [Ratio] 32.8 kg/m2 [facility] 02-12-2024 10:44-0400 Body weight 103.92 kg [facility] 02-12-2024 10:44-0400 Diastolic blood pressure 71 mm[Hg] [facility] 02-12-2024 10:44-0400 Heart rate 53 /min [facility] 02-12-2024 10:44-0400 Respiratory rate 12 /min [facility] 02-12-2024 10:44-0400 Systolic blood pressure 124 mm[Hg] [facility] 11-28-2023 10:32-0500 Blood Pressure Location Radha Lue [facility] 11-28-2023 10:32-0500 Diastolic blood pressure 84 mm[Hg] Radha Lue [facility] 11-28-2023 10:32-0500 Heart rate 106 /min Radha Lue [facility] 11-28-2023 10:32-0500 Respiratory rate 16 /min Radha Lue [facility] 11-28-2023 10:32-0500 Systolic blood pressure 135 mm[Hg] Radha Lue [facility] 11-20-2023 13:16-0500 Body temperature 97.3 [degF] [...] 13:16-0500 SaO2% (BldA) [Mass fraction] 96 % NA Jose WHARTON Work Phone: [facility] 11-20-2023 13:16-0500 Systolic blood pressure 145 mm[Hg] NA Jose WHARTON Work Phone: [facility] 10-11-2023 11:00-0500 Body height 177.8 cm Bro [employer] Other [employer] Other 10-11-2023 11:00-0500 Body mass index (BMI) [Ratio] 32.51 kg/m2 Bro [employer] Other [employer] Other 10-11-2023 11:00-0500 Body weight 102.79 kg Bro Ball Other [employer] Other 10-11-2023 11:00-0500 Diastolic blood pressure 76 mm[Hg] Bro [employer] Other [employer] Other 10-11-2023 11:00-0500 Respiratory rate 12 /min Bro [employer] Other [employer] Other 10-11-2023 11:00-0500 Systolic blood pressure 167 mm[Hg] Bro Ball Other [employer] Other 08-15-2023 08:46-0400 Blood Pressure Location Radha Lue [facility] 08-15-2023 08:46-0400 Diastolic blood pressure 76 mm[Hg] Radha Lue [facility] 08-15-2023 08:46-0400 Heart rate 80 /min Radha Lue [facility] 08-15-2023 08:46-0400 Respiratory rate 16 /min Radha Lue [facility] 08-15-2023 08:46-0400 Systolic blood pressure 132 mm[Hg] Radha Whitten [facility] 07-13-2023 10:00-0400 Body height 177.8 cm Bro Ball Other [employer] Other 07-13-2023 10:00-0400 Body mass index (BMI) [Ratio] 32.57 kg/m2 Bro Ball Other [employer] Other 07-13-2023 10:00-0400 Body weight 102.97 kg Bro Ball Other [employer] Other 07-13-2023 10:00-0400 Diastolic blood pressure 70 mm[Hg] Bro Ball Other [employer] Other 07-13-2023 10:00-0400 Respiratory rate 12 /min Bro Ball Other [employer] Other 07-13-2023 10:00-0400 Systolic blood pressure 143 mm[Hg] Bro Ball Other [employer] Other 05-15-2023 13:24-0400 Body temperature 97.5 [degF] [...] Body height 177.8 cm Bro Ball Other [employer] Other 04-11-2023 13:30-0400 Body mass index (BMI) [Ratio] 32.88 kg/m2 Bro Ball Other [employer] Other 04-11-2023 13:30-0400 Body weight 103.97 kg Bro Ball Other [employer] Other 04-11-2023 13:30-0400 Diastolic blood pressure 72 mm[Hg] Bro Ball Other [employer] Other 04-11-2023 13:30-0400 Respiratory rate 12 /min Bro Ball Other [employer] Other 04-11-2023 13:30-0400 Systolic blood pressure 124 mm[Hg] Bro Ball Other [employer] Other 02-21-2023 15:15-0400 Body height 177.8 cm Bro Ball Other [employer] Other 02-21-2023 15:15-0400 Body mass index (BMI) [Ratio] 34.89 kg/m2 Bro Ball Other [employer] Other 02-21-2023 15:15-0400 Body weight 110.32 kg Bro Ball Other [employer] Other 02-21-2023 15:15-0400 Diastolic blood pressure 76 mm[Hg] Bro Ball Other [employer] Other 02-21-2023 15:15-0400 Respiratory rate 12 /min Bro Ball Other [employer] Other 02-21-2023 15:15-0400 Systolic blood pressure 165 mm[Hg] Bro Ball Other [employer] Other 02-14-2023 13:30-0400 Body height 177.8 cm [...] Body height 177.8 cm Bro Ball Other [employer] Other 02-05-2023 17:00-0400 Body mass index (BMI) [Ratio] 34.89 kg/m2 Bro Ball Other [employer] Other 02-05-2023 17:00-0400 Body weight 110.32 kg Bro Ball Other [employer] Other 02-05-2023 17:00-0400 Diastolic blood pressure 79 mm[Hg] Bor Ball Other [employer] Other 02-05-2023 17:00-0400 Respiratory rate 12 /min Bro Ball Other [employer] Other 02-05-2023 17:00-0400 Systolic blood pressure 175 mm[Hg] Bro Ball Other [employer] Other 01-29-2023 11:00-0400 Body height 177.8 cm Bro Ball Other [employer] Other 01-29-2023 11:00-0400 Body mass index (BMI) [Ratio] 34.89 kg/m2 Bro Ball Other [employer] Other 01-29-2023 11:00-0400 Body weight 110.32 kg Bro Ball Other [employer] Other 01-29-2023 11:00-0400 Diastolic blood pressure 80 mm[Hg] Bro Ball Other [employer] Other 01-29-2023 11:00-0400 Respiratory rate 12 /min Bro Ball Other [employer] Other 01-29-2023 11:00-0400 Systolic blood pressure 166 mm[Hg] Bro Ball Other [facility] [employer] Other 01-24-2023 08:41-0400 Blood Pressure Location CIERRA YESSEINA [facility] 01-24-2023 08:41-0400 Diastolic blood pressure 69 mm[Hg] CIERRA YESSENIA [facility] 01-24-2023 08:41-0400 Heart rate 54 /min CIERRA YESSENIA [facility] 01-24-2023 08:41-0400 Systolic blood pressure 142 mm[Hg] CIERRA YESSENIA [facility] 01-11-2023 09:34-0400 Blood Pressure Location CIERRA YESSENIA [facility] 01-11-2023 09:34-0400 Diastolic blood pressure 82 mm[Hg] CIERRA YESSENIA [facility] 01-11-2023 09:34-0400 Heart rate 52 /min CIERRA YESSENIA [facility] 01-11-2023 09:34-0400 Systolic blood pressure 172 mm[Hg] CIERRA YESSENIA [facility] 12-28-2022 09:17-0400 Blood Pressure Location CIERRA YESSENIA [facility] 12-28-2022 09:17-0400 Diastolic blood pressure 66 mm[Hg] CIERRA YESSENIA [facility] 12-28-2022 09:17-0400 Heart rate 71 /min CIERRA YESSENIA [facility] 12-28-2022 09:17-0400 Systolic blood pressure 128 mm[Hg] CIERRA ZHU [facility] 12-26-2022 10:11-0400 Body height 177.8 cm Donato Bishop MD Work Phone: [facility] 12-26-2022 10:11-0400 Body temperature 97.3 [degF] Donato [...] Hospital 12-14-2022 09:24-0500 Blood Pressure Location CIERRA ZHU [facility] 12-14-2022 09:24-0500 Diastolic blood pressure 71 mm[Hg] CIERRA ZHU [facility] 12-14-2022 09:24-0500 Systolic blood pressure 136 mm[Hg] CIERRA ZHU [facility] 12-12-2022 13:03-0500 Body temperature 96.4 [...] Hospital 11-30-2022 09:18-0500 Blood Pressure Location CIERRA ZHU [facility] 11-30-2022 09:18-0500 Diastolic blood pressure 58 mm[Hg] CIERRA ZHU [facility] 11-30-2022 09:18-0500 Heart rate 57 /min CIERRA ZHU [facility] 11-30-2022 09:18-0500 Systolic blood pressure 128 mm[Hg] CIERRA ZHU [facility] 11-23-2022 08:37-0500 Blood Pressure Location CIERRA ZHU [facility] 11-23-2022 08:37-0500 Diastolic blood pressure 68 mm[Hg] CIERRA ZHU [facility] 11-23-2022 08:37-0500 Heart rate 57 /min CIERRA ZHU [facility] 11-23-2022 08:37-0500 Systolic blood pressure 127 mm[Hg] CIERRA ZHU [facility] 11-09-2022 12:58-0500 Body temperature 96.69 [...] Hospital 11-08-2022 10:58-0500 Blood Pressure Location Radha Whitten [facility] 11-08-2022 10:58-0500 Diastolic blood pressure 79 mm[Hg] Radha Lue [facility] 11-08-2022 10:58-0500 Heart rate 68 /min Radha Lue [facility] 11-08-2022 10:58-0500 Systolic blood pressure 139 mm[Hg] Radha Lue [facility] 10-04-2022 08:32-0500 Blood Pressure Location Radha Lue [facility] 10-04-2022 08:32-0500 Diastolic blood pressure 66 mm[Hg] Radha Lue [facility] 10-04-2022 08:32-0500 Heart rate 57 /min Radha Lue [facility] 10-04-2022 08:32-0500 Systolic blood pressure 151 mm[Hg] Radha Lue [facility] 07-13-2022 13:20-0400 Body temperature 96.69 [degF] [...] Location Sushant Freedman Jr. [facility] 03-28-2022 08:36-0400 Diastolic blood pressure 78 mm[Hg] Sushant Freedman Jr. [facility] 03-28-2022 08:36-0400 Heart rate 62 /min Sushant Freedman Jr. [facility] 03-28-2022 08:36-0400 Respiratory rate 16 /min Sushant Freedman Jr. [facility] 03-28-2022 08:36-0400 Systolic blood pressure 144 mm[Hg] Sushant Freedman Jr. [facility] Encounters Encounter Date Encounter Type Care Provider Facility Start: 12-10-2024 ambulatory Radha Whitten Facility:[facility] Start: 11-11-2024 End: 11-11-2024 ambulatory BRO CHAVEZ Facility:[facility] Start: 10-29-2024 End: 10-29-2024 ambulatory [facility] Start: 10-29-2024 End: 10-29-2024 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; Primary hypertension; Pure hypercholesterolemia; PVC (premature ventricular contraction); RBBB; Obstructive sleep apnea syndrome; BMI 33.0-33.9,adult; Edema, unspecified type Start: 10-27-2024 End: 10-27-2024 ambulatory [facility] Work Phone: Start: 10-27-2024 End: 10-27-2024 Patient encounter procedure [facility] Work Phone: Start: 10-21-2024 Non-patient / Non-visit [facility] Work Phone: Start: 10-10-2024 Patient encounter procedure [facility] Start: 09-05-2024 End: 09-05-2024 Patient encounter procedure [facility] Work Phone: Start: 07-30-2024 End: 07-30-2024 ambulatory DO Bro Ball Work Phone: [facility] Work Phone: Start: 07-30-2024 End: 07-30-2024 Patient encounter procedure DO Bro Ball Work Phone: [facility] Work Phone: Start: 07-24-2024 End: 07-24-2024 Admission to same day surgery center DO Bro Ball Work Phone: [facility] Work Phone: Start: 07-24-2024 End: 07-24-2024 ambulatory DO Bro Ball Work Phone: [facility] Work Phone: Start: 07-23-2024 End: 07-23-2024 Patient encounter procedure DO Bro Ball Work Phone: [facility] Work Phone: Start: 07-23-2024 End: 07-23-2024 ambulatory DO [facility] Work Phone: [facility] Work Phone: Start: 07-23-2024 Encounter for preprocedural laboratory examination Tory Norberto Jake [facility] Start: 07-22-2024 End: 07-22-2024 Office consultation new/estab patient 80 min Don Joseph DO Work Phone: [facility] Comment on above: Abnormal nuclear str ess test; Chest pain, unspecified type; Bradycardia; RBBB; Primary hypertension; Pure hypercholesterolemia; Obstructive sleep apnea syndrome; BMI 32.0-32.9,adult Start: 07-22-2024 End: 07-22-2024 ambulatory [facility] Start: 07-18-2024 End: 07-18-2024 ambulatory [facility] Work Phone: Start: 07-18-2024 End: 07-18-2024 Patient encounter procedure [facility] Work Phone: Start: 07-15-2024 Non-patient / Non-visit [facility] Work Phone: Start: 07-14-2024 Non-patient / Non-visit [facility] Work Phone: Start: 07-02-2024 End: 07-02-2024 ambulatory [facility] Work Phone: Start: 07-02-2024 End: 07-02-2024 Patient encounter procedure [facility] Work Phone: Start: 07-01-2024 Non-patient / Non-visit [facility] Work Phone: Start: 06-28-2024 Non-patient / Non-visit [facility] Work Phone: Start: 06-27-2024 Non-patient / Non-visit [facility] Work Phone: Start: 06-27-2024 Non-patient / Non-visit [facility] Work Phone: Start: 06-04-2024 End: 06-04-2024 ambulatory Radha CarmenBrian Fish Facility:[facility] Start: 06-04-2024 End: 06-04-2024 Patient encounter procedure Radhafei Granadosmelchor [facility] Start: 05-20-2024 End: 05-20-2024 ambulatory Aaliyah HERNANDEZ Facility:[facility] Start: 05-20-2024 End: 05-20-2024 Patient encounter procedure Aaliyah Hernandez MD Work Phone: Radiation Oncology Comment on above: Malignant neoplasm o f prostate (HCC) (Primary Dx) Start: 05-13-2024 End: 05-13-2024 ambulatory BRO CHAVEZ Facility:[facility] Start: 05-13-2024 Non-patient / Non-visit [facility] Work Phone: Start: 04-09-2024 End: 04-09-2024 ambulatory [facility] Work Phone: Start: 04-09-2024 End: 04-09-2024 Patient encounter procedure [facility] Work Phone: Start: 04-01-2024 End: 04-01-2024 ambulatory David Pycraft RT(R) Radiology Ct Scan Comment on above: Radiology CT Start: 04-01-2024 End: 04-01-2024 Patient encounter procedure David Pycraft RT(R) Radiology Ct Scan Comment on above: S/P repair of ventra l hernia (Primary Dx) Start: 04-01-2024 End: 04-01-2024 Subsequent hospital visit by physician [facility] Scan Comment on above: Ventral incisional h jt [K43.2] Start: 03-24-2024 End: 03-24-2024 ambulatory DEBBIE ANDRE Not Available Start: 03-11-2024 End: 03-11-2024 ambulatory VERONICA HIGH Not Available Start: 02-12-2024 End: 02-12-2024 ambulatory [facility] Work Phone: Start: 02-12-2024 End: 02-12-2024 Patient encounter procedure [facility] Work Phone: Start: 01-30-2024 Non-patient / Non-visit [facility] Work Phone: Start: 12-12-2023 Non-patient / Non-visit [facility] Work Phone: Start: 11-28-2023 End: 11-28-2023 ambulatory Radha Whitten Facility:[facility] Start: 11-28-2023 End: 11-28-2023 Patient encounter procedure Radha Whitten [facility] Start: 11-20-2023 End: 11-20-2023 ambulatory Aaliyah HERNANDEZ Facility:[facility] Start: 11-20-2023 End: 11-20-2023 Patient encounter procedure Aaliyah Hernandez MD Work Phone: Radiation Oncology Comment on above: Malignant neoplasm o f prostate (HCC) (Primary Dx) Start: 11-13-2023 End: 11-13-2023 ambulatory BRO CHAVEZ Facility:[facility] Start: 10-16-2023 End: 10-16-2023 ambulatory Bro Chavez Other [employer] Other Start: 10-16-2023 Telephone encounter Bro SANTOS [facility] Start: 10-11-2023 End: 10-11-2023 ambulatory Bro Chavez Other [employer] Other Start: 10-11-2023 Patient encounter procedure Bro Chavez [facility] Start: 10-11-2023 Telephone encounter Bro Chavez [facility] Start: 10-04-2023 End: 10-04-2023 ambulatory Bro Chavez Other [employer] Other Start: 10-04-2023 Telephone encounter Bro Chavez [facility] Start: 10-02-2023 End: 10-02-2023 ambulatory Bro Chavez Other [employer] Other Start: 10-02-2023 Telephone encounter Bro Chavez [facility] Start: 08-22-2023 End: 08-22-2023 ambulatory Bro Kathy Other [employer] Other Start: 08-22-2023 Telephone encounter Bro Chavez [facility] Start: 08-21-2023 End: 08-21-2023 ambulatory Bro Chavez Other [employer] Other Start: 08-21-2023 Office outpatient vi sit 15 minutes Bro Chavez [facility] Start: 08-21-2023 Telephone encounter Bro SANTOS [facility] Start: 08-15-2023 End: 08-15-2023 ambulatory Radha Whitten Facility:[facility] Start: 08-15-2023 End: 08-15-2023 Patient encounter procedure Radha Whitten [facility] Start: 07-24-2023 End: 07-24-2023 ambulatory Bro Chavez Other [employer] Other Start: 07-24-2023 Telephone encounter Bro Chavez [facility] Start: 07-16-2023 End: 07-16-2023 ambulatory Bro Chavez Other [employer] Other Start: 07-16-2023 Telephone encounter Bro Kathy [facility] Start: 07-13-2023 End: 07-13-2023 ambulatory Bro Chavez Other [employer] Other Start: 07-13-2023 Office outpatient vi sit 25 minutes Bro Chavez [facility] Start: 07-13-2023 Telephone encounter Bro SANTOS [facility] Start: 05-15-2023 End: 05-15-2023 Patient encounter procedure G Raz Hernandez MD Work Phone: Radiation Oncology Comment on above: Malignant neoplasm o f prostate (HCC) (Primary Dx) Start: 04-11-2023 End: 04-11-2023 ambulatory Bro Chavez Other [employer] Other Start: 04-11-2023 Office outpatient vi sit 25 minutes Bro Chavez [facility] Start: 04-10-2023 End: 04-10-2023 ambulatory Bro Chavez Other [employer] Other Start: 04-10-2023 Telephone encounter Bro SANTOS [facility] Start: 03-15-2023 End: 03-15-2023 ambulatory Bro Chavez Other [employer] Other Start: 03-15-2023 Initial nursing faci lity care/day 35 minutes Bro Chavez [facility] Start: 02-24-2023 End: 02-24-2023 ambulatory Bro Chavez Other [employer] Other Start: 02-24-2023 Telephone encounter Bro SANTOS [facility] Start: 02-23-2023 Evaluation and management of inpatient DONATO BISHOP Facility[facility] Start: 02-21-2023 End: 02-22-[address] BRO CHAVZE [employer] Other Start: 02-21-2023 Office outpatient vi sit 15 minutes Bro Chavez [facility] Start: 02-14-2023 End: 02-14-2023 Admission to [facility] Livan Valentin Work Phone: [facility] Start: 02-14-2023 End: 02-14-2023 ambulatory Pacc Lucama 2 Work Phone: Pre Anesthesia Comment on above: Preop examination (P rimary Dx); Primary hypertension; Prostate cancer (HCC); Obesity, Class I, BMI 30-34.9; Obstructive sleep apnea syndrome Start: 02-14-2023 End: 02-14-2023 Preprocedural examination done Pacc Lucama 2 Work Phone: Pre Anesthesia Start: 02-06-2023 End: 02-06-2023 ambulatory Bro Chavez Other [employer] Other Start: 02-06-2023 Telephone encounter Bro Chavez [facility] Start: 02-05-2023 End: 02-05-2023 ambulatory Bro Chavez Other [employer] Other Start: 02-05-2023 Office outpatient vi sit 15 minutes Bro Chavez [facility] Start: 01-29-2023 End: 01-29-2023 ambulatory Bro Chavez Other [employer] Other Start: 01-29-2023 Encounter for other preprocedural examination Bro Chavez [facility] Start: 01-29-2023 Office outpatient vi sit 25 minutes Bro Chavez [facility] Start: 01-24-2023 End: 01-24-2023 Patient encounter procedure CIERRA ZHU [facility] Start: 01-11-2023 End: 01-11-2023 Patient encounter procedure CIERRA ZHU [facility] [employer] Start: 12-28-2022 End: 12-28-2022 Patient encounter procedure CIERRA ZHU [facility] [employer] Start: 12-27-2022 Orders Only Marya mcneil MD Work Phone: General Surgery Start: 12-26-2022 End: 12-26-2022 Patient encounter procedure Donato Bishop MD Work Phone: General Surgery Comment on above: Recurrent left ingui nal hernia (Primary Dx) Start: 12-14-2022 End: 12-14-2022 Patient encounter procedure CIERRA ZHU [facility] Start: 12-12-2022 End: 12-12-2022 Patient encounter procedure Aaliyah Hernandez MD Work Phone: Radiation Oncology Comment on above: Malignant neoplasm o f prostate (HCC) (Primary Dx) Start: 12-06-2022 ambulatory BRO Villasenor [facility] Start: 12-06-2022 End: 12-06-2022 Subsequent hospital visit by physician [facility] 2 (I-Stat/3t) Work Phone: Radiology Comment on above: Left lower quadrant abdominal swelling, mass and lump [R19.04] Start: 12-04-2022 ambulatory VANDANA HERNANDEZ Facility[facility] Start: 12-04-2022 End: 12-04-2022 Subsequent hospital visit by physician [facility] (I-Stat/1.5t) Radiology Comment on above: Prostate cancer (HCC ) [C61] Start: 11-30-2022 End: 11-30-2022 Patient encounter procedure CIERRA HZU [facility] Start: 11-23-2022 End: 11-23-2022 Patient encounter procedure CIERRA ZHU [facility] Start: 11-16-2022 Patient encounter procedure [facility] Provider [facility] Department Start: 11-09-2022 End: 11-09-2022 Patient encounter procedure Aaliyah Hernandez MD Work Phone: Radiation Oncology Comment on above: Prostate cancer (HCC ) (Primary Dx); Abdominal mass, left lower quadrant Start: 11-08-2022 End: 11-08-2022 Patient encounter procedure Radha Whitten [facility] Start: 11-06-2022 End: 11-07-2022 ambulatory RADHA WHITTEN . Facility:[facility] Start: 10-11-2022 End: 10-12-2022 ambulatory RADHA WHITTEN . Facility:[facility] Start: 10-04-2022 End: 10-04-2022 Patient encounter procedure Radha Whitten [facility] Start: 08-05-2022 End: 08-06-[address] BRO CHAVEZ Facility:[facility] Start: 07-13-2022 End: 07-13-2022 Patient encounter procedure Aaliyah Hernandez MD Work Phone: Radiation Oncology Comment on above: Prostate cancer (HCC ) (Primary Dx) Start: 04-14-[address] BRO CHAVEZ [facility] [facility] ty:H1 Start: 03-30-2022 End: 03-30-2022 Patient encounter procedure Aaliyah Hernandez MD Work Phone: Radiation Oncology Comment on above: Prostate cancer (HCC ) (Primary Dx) Start: 03-28-2022 End: 03-28-2022 Patient encounter procedure Sushant Freedman Jr. [facility] Procedures Date Procedure Procedure Detail Performing Clinician Start: 07-24-2024 [facility] Angio DO B romeo Chavez Work Phone: Start: 07-22-2024 Ecg routine ecg w/le ast 12 lds w/i&r Don Joseph DO Work Phone: Start: 02-23-2023 Antibody screen DONATO B AIER Comment on above: Order Comment: Speci men Type: BLOOD SPECIMENOrdering Facility: [facility] Address: [place] [id number] Performed By: #### T SCR ####MICA BLOOD BANKCLIA [id number] [address] [place] Start: 02-23-2023 Inguinal hernia (disorder) Radha Granadosmelchor Start: 02-23-2023 Pelvic floor structu re (body structure) Radha Whitten Start: 03-30-2022 Adult depression scr eening assessment NA Jose WHARTON Work Phone: Start: 07-14-2021 History of external beam radiation therapy Radha Fish Start: 06-20-2018 Radical retropubic prostatectomy with bilateral pelvic lymphadenectomy Sushant Freedman Jr. Start: 03-28-2018 Transrectal biopsy o f prostate using ultrasound guidance Sushant Freedman Jr. Colonoscopy Sushant Torres Hernia of abdominal cavity (disorder) Sushant Freedman Jr. Tonsillectomy Sushant cristina Plan of Treatment Date Care Activity Detail Author Start: 03-01-2026 DIABETES SCREEN DIABETES SCREEN [facility] Start: 03-01-2026 Diabetes Screening Diabetes Screenin g [facility] Start: 11-03-2025 End: 11-03-2025 Patient encounter procedure 11/03/2025 9:10 AM EST Office Visit [facility] [address] [place] [address] Don Joseph DO [address] [facility] [address] [place] [address] [facility] Start: 04-28-2025 End: 04-28-2025 Patient encounter procedure 04/28/2025 9:30 AM EDT Office Visit [facility] [address] [place] [phone] Mere Freedman, DOCTOR OF DENTAL SURGERY-SHEEP KILLER [address] [place] [address] [facility] Start: 04-07-2025 End: 04-07-2025 Patient encounter procedure 04/07/2025 10:00 AM EDT Office Visit General Surgery [facility] [address] [place], [place] [id number] Donato Bishop MD [address] [place], [place] [id number] Est Pt: 2 yr follow up, s/p open left anterior groin mesh removal (plug and patch) and TAR 03/0539=299 General Surgery Comment on above: Est Pt: 2 yr follow up, s/p open left anterior groin mesh removal (plug and patch) and TAR 03/0528=331 Start: 12-14-2024 DIABETES SCREEN DIABETES SCREEN [facility] Start: 11-20-2024 End: 02-19-2025 Prostate specific Ag [Mass/volume] in Serum or Plasma PROSTATE-SPECIFIC ANTIGEN DIAGNOSTIC Lab Routine Malignant neoplasm of prostate (HCC) Expected: 11/20/2024, Expires: 02/19/2025 [facility] Work Phone: Comment on above: Expected: 11/20/2024 , Expires: 02/19/2025 Start: 11-19-2024 End: 11-19-2024 Patient encounter procedure 11/19/2024 11:15 AM EST Office Visit Radiation Oncology [address] [place] [address] Aaliyah Hernandez MD [address] [place] [address] 5 Month Follow Up Radiation Oncology Comment on above: 5 Month Follow Up Start: 11-11-2024 End: 11-11-2024 Patient encounter procedure 11/11/2024 11:00 AM EST Office Visit [facility] [address] [place] [address] lab [facility] Comment on above: lab Start: 10-29-2024 End: 10-29-2024 Patient encounter procedure 10/29/2024 10:50 AM EST Office Visit [facility] [address] [place] [id number] Don Joseph DO [address] [place] [address] [facility] Start: 07-24-2024 End: 07-24-2024 [facility] Start: 06-15-2024 COVID-19 Vaccine ( season) COVID-19 Vaccine ( season) [facility] Start: 06-15-2024 Influenza vaccination Influenza Vacc ine (#1) [facility] Start: 05-20-2024 End: 08-19-2024 Prostate specific Ag [Mass/volume] in Serum or Plasma PSA/PROSTSPECAG DIAG Lab Routine Malignant neoplasm of prostate (HCC) Expected: 05/20/2024, Expires: 08/19/2024 [facility] Work Phone: Comment on above: Expected: 05/20/2024 , Expires: 08/19/2024 Start: 05-20-2024 End: 05-20-2024 Patient encounter procedure 05/20/2024 1:15 PM EDT Office Visit Radiation Oncology [address] [facility] [place] [address] Aaliyah Hernandez MD [address] [place] [address] 5 Month Follow Up Radiation Oncology Comment on above: 5 Month Follow Up Start: 05-13-2024 End: 05-13-2024 Patient encounter procedure 05/13/2024 1:00 PM EDT Office Visit [facility] [address] [facility] [place] [place] [address] lab followup [facility] Comment on above: lab followup Start: 11-15-2023 End: 01-15-2024 Prostate specific Ag [Mass/volume] in Serum or Plasma PSA/PROSTSPECAG DIAG Lab Routine Malignant neoplasm of prostate (HCC) Expected: 11/15/2023, Expires: 01/15/2024 [facility] Work Phone: Comment on above: Expected: [...] [facility] Start: 06-15-2023 Influenza vaccination C [facility] Start: 05-11-2023 End: 07-11-2023 Prostate specific Ag [Mass/volume] in Serum or Plasma PSA/PROSTSPECAG DIAG Lab Routine Malignant neoplasm of prostate (HCC) Expected: 05/11/2023, Expires: 07/11/2023 [facility] Work Phone: Comment on above: Expected: 05/11/2023 , Expires: 07/11/2023 Start: 03-30-2023 Adult depression screening assessment DEPRESSION SCREENING [facility] Start: 02-14-2023 End: 04-16-2023 Basic metabolic 2000 panel - Serum or Plasma [facility] Work Phone: Comment on above: Expected: 02/14/2023 , Expires: 04/16/2023 Start: 01-10-2023 End: 03-12-2023 Prostate specific Ag [Mass/volume] in Serum or Plasma PSA/PROSTSPECAG DIAG Lab Routine Prostate cancer (HCC) Expected: 01/10/2023, Expires: 03/12/2023 [facility] Work Phone: Comment on above: Expected: 01/10/2023 , Expires: 03/12/2023 Start: 11-12-2022 End: 01-12-2023 Prostate specific Ag [Mass/volume] in Serum or Plasma PSA/PROSTSPECAG DIAG Lab Routine Prostate cancer (HCC) Expected: 11/12/2022, Expires: 01/12/2023 [facility] Work Phone: Comment on above: Expected: 11/12/2022 , Expires: 01/12/2023 Start: 10-15-2022 ADVANCE DIRECTIVE DISCUSSION ADVANCE DIRECTIVE DISCUSSION [facility] Start: 10-15-2022 DEPRESSION ASSESSMENT DEPRESSION ASS ESSMENT [facility] Start: 06-30-2022 End: 08-30-2022 Prostate specific Ag [Mass/volume] in Serum or Plasma PSA/PROSTSPECAG DIAG Lab Routine Prostate cancer (HCC) Expected: 06/30/2022 (Approximate), Expires: 08/30/2022 [facility] Work Phone: Comment on above: Expected: 06/30/2022 (Approximate), Expires: 08/30/2022 Start: 06-15-2022 Influenza vaccination [facility] Start: 10-15-2021 ADVANCE DIRECTIVE DISCUSSION ADVANCE [...] - PCV) [facility] Start: 07-24-2014 DTaP/Tdap/Td Vaccine s (1 - Tdap) DTaP/Tdap/Td Vaccines (1 - Tdap) [facility] Start: 07-24-2014 Urine microalbumin profile DTaP,Tdap,Td Vaccine (1 - Tdap) [facility] Start: 2012 PNEUMOCOCCAL: 65+ (1 - PCV) PNEUMOCOCCAL: 65+ (1 - PCV) [facility] Start: 2007 RSV Vaccine (1 - 1-d ose 60+ series) RSV Vaccine (1 - 1-dose 60+ series) [facility] Start: 1997 SHINGRIX VACCINE (1 of 2) HOLLEY GRIX VACCINE (1 of 2) [facility] Start: 1992 COLOGUARD (FIT-DNA) COLOGUARD (FIT-D NA) [facility] Start: 1992 Colonoscopy COLONOSCOPY [facility] Start: 1992 COLORECTAL CANCER SCREENING COLORECTAL CANCER SCREENING [facility] Start: [address] COLONOGRAPHY [facility] Start: 1992 FECAL OCCULT BLOOD FECAL OCCULT BLOO D [facility] Start: 1992 SIGMOIDOSCOPY SIGMOIDOSCOPY [facility] Start: 1982 LIPID SCREEN LIPID SCREEN [facility] Start: 1966 SHINGRIX VACCINE (1 of 2) HOLLEY GRIX VACCINE (1 of 2) [facility] Start: 1966 Urine microalbumin profile [facility] Start: 1965 ANNUAL PCP TEAM SPINNERET PERSON MOOSE DISEASE VISIT ANNUAL PCP TEAM CHRONIC DISEASE VISIT [facility] Start: 1965 Anxiety Screening Anxiety Screening [facility] Start: 1965 BP CONTROLLED (<130/80) BP CONTROLLE D (<130/80) [facility] Start: 1965 Depression Screening Depression Scre ening [facility] Start: 1965 Diabetes mellitus screening Diabetes Screening [facility] Start: 1965 HEPATITIS C SCREENING HEPATITIS C [facility] Start: 1965 Hepatitis C screening Hepatitis C [facility] Start: 1953 PNEUMOCOCCAL: 65+ (1 - PCV) PNEUMOCOCCAL: 65+ (1 - PCV) [facility] Start: 1952 COVID-19 VACCINE (#1) COVID-19 VACCI NE (#1) [facility] Start: 1947 COVID-19 VACCINE (#1) COVID-19 VACCI NE (#1) [facility] Start: 1947 Lipid panel Lipid Panel [facility] Start: 1947 Medicare Annual Well ness Visit Medicare Annual Wellness Visit (AWV) [facility] Cardiac Catheterizat ion - Onbase Scan Cardiac Catheterization - Onbase Scan Cardiac Cath Routine Abnormal nuclear stress test Chest pain, unspecified type Ordered: 07/22/2024 [facility] Service Area Work Phone: Comment on above: Ordered: 07/22/2024 CT Abdomen and Pelvi s WO contrast CT ABD/PEL WO IVCON Radiology Routine Ventral incisional hernia 04/01/2024 1:54 PM EDT [facility] Work Phone: End: 12-09-2023 Mri pelvis w/o & w/contrast material MRI PELVIS WO/W IVCON Radiology Routine Prostate cancer (HCC) Abdominal mass, left lower quadrant 1 Occurrences starting 11/09/2022 until 12/09/2023 [facility] Work Phone: Comment on above: 1 Occurrences starti ng 11/09/2022 until 12/09/2023 End: 12-04-2022 Mri pelvis w/o & w/contrast material [facility] Work Phone: Comment on above: 1 Occurrences starti ng 12/04/2022 until 12/04/2022 Patient Education Know your Meds [facility] Work Phone: Patient referral [facility] Work Phone: [facility] Immunizations Immunization Date Immunization Notes Care Provider Fa sasha 07-18-2024 influenza, high dose seasonal, preservative-free [facility] 04-02-2024 COVID-19 (PFIZER) 12Y and older DO Bro Chavez Work Phone: [facility] 04-02-2024 COVID-19 Comirnaty (Pfizer) Tri-Sucrose 12+ [facility] 04-02-2024 Pneumococcal Conjuga te Vaccine, 20 valent [facility] 07-25-2023 COVID-19 (PFIZER) 12Y and older DO Bro Chavez Work Phone: [facility] 07-25-2023 zoster vaccine recombinant Radha Whitten [facility] 07-13-2023 influenza virus vaccine, unspecified formulation [facility] 07-13-2023 influenza, high dose seasonal, preservative-free Bro Chavez Other [facility] Other 05-07-2023 zoster vaccine recombinant Bro Chavez Other [facility] 10-18-2022 SARS-CoV-2 (COVID-19 ) [id number] Radha Whitten [facility] 07-05-2022 influenza virus vaccine, split virus (incl. purified surface antigen) Bro Chavez Other [facility] Other 07-05-2022 influenza virus vaccine, unspecified formulation Radha Whitten [facility] 01-30-2022 COVID-19 Comirnaty (Pfizer) Tri-Sucrose 12+ DO Bro Chavez Work Phone: [facility] 01-30-2022 SARS-CoV-2 mRNA (dquozrjygin-elbk-znxuj se) vaccine Radha Lue [facility] 07-04-2021 influenza virus vaccine, split virus (incl. purified surface antigen) Bro Chavez Other [facility] Other 07-04-2021 influenza virus vaccine, unspecified formulation [facility] 07-04-2021 SARS-CoV-2 (COVID-19 ) mRNA BNT-162b2 vax Radha Lue [facility] Comment on above: Result Comment: 2022: [id number] 06-15-2021 SARS-CoV-2 (COVID-19 ) Ad26 vaccine, recombinant Sushant Freedman Jr. [facility] 12-13-2020 SARS-CoV-2 (COVID-19 ) Ad26 vaccine, recombinant Sushant Freedman Jr. [facility] 12-07-2020 SARS-CoV-2 (COVID-19 ) mRNA BNT-162b2 vax Radha Lue [facility] Comment on above: Result Comment: 2022: [id number] 11-16-2020 SARS-CoV-2 (COVID-19 ) mRNA BNT-162b2 vax Radha Lue [facility] Comment on above: Result Comment: 2022: [id number] 11-15-2020 SARS-CoV-2 (COVID-19 ) Ad26 vaccine, recombinant Sushant Freedman Jr. [facility] 07-05-2020 influenza virus vaccine, split virus (incl. purified surface antigen) Bro Chavez Other [facility] Other 07-05-2020 influenza virus vaccine, unspecified formulation [facility] 07-29-2019 influenza virus vaccine, split virus (incl. purified surface antigen) Bro Chavez Other [facility] Other 07-29-2019 influenza virus vaccine, unspecified formulation [facility] 07-30-2018 influenza virus vaccine, split virus (incl. purified surface antigen) Bro Chavez Other [facility] [employer] Other 07-30-2018 influenza virus vaccine, unspecified formulation Radha Lue [facility] 07-25-2017 influenza virus vaccine, split virus (incl. purified surface antigen) Bro Chavez Other [facility] [employer] Other 07-25-2017 influenza virus vaccine, unspecified formulation Radha Lue [facility] 05-23-2017 pneumococcal polysaccharide vaccine, 23 valent Radha Lue [facility] 09-04-2016 influenza virus vaccine, split virus (incl. purified surface antigen) Bro Chavez Other [facility] [employer] Other 09-04-2016 influenza virus vaccine, unspecified formulation [facility] 09-04-2016 pneumococcal conjuga te vaccine, 13 valent Bro Chavez Other [facility] 08-12-2015 influenza virus vaccine, split virus (incl. purified surface antigen) Bro Chavez Other [facility] [employer] Other 08-12-2015 influenza virus vaccine, unspecified formulation Radha Lue [facility] 02-12-2015 pneumococcal polysaccharide vaccine, 23 valent Bro Chavez Other [facility] 07-23-2014 tetanus and diphther ia toxoids, adsorbed, preservative free, for adult use (5 Lf of tetanus toxoid and 2 Lf of diphtheria toxoid) Bro Chavez Other [facility] 09-01-2013 tetanus and diphther ia toxoids, adsorbed, preservative free, for adult use (5 Lf of tetanus toxoid and 2 Lf of diphtheria toxoid) Bro Kathy Other [facility] Payers Date Payer Category Payer Self-pay 2019 Unknown MMO MMO MEDICARE SUPPLEMENT [id number] 2019-Present [phone] [address] [place] [address] Indemnity [id number] 2019 Unknown MMO MMO MEDICARE SUPPLEMENT [id number] 2019-Present [phone] [address] [place] [address] Indemnity [id number] 2012 Medicare MEDICARE MEDICAR E A AND B [id number] 2012-Present [phone] [address] [address] [place] [address] Medicare [id number] 2012 Medicare [id number] 1959 Medicare [id number] 1959 Self-pay [id number] 1959 Unknown [id number] 1947 Unknown [id number] [id number] 1947 Unknown [id number] [id number] 1947 Unknown [id number] [id number] 1947 Unknown [id number] 2.16.840.1.348246.3.579.2.593 1947 Unknown [id number] 2.16.840.1.899557.3.579.2.593 1947 Unknown [id number] 2.16.840.1.804767.3.579.2.1259 1947 Unknown [id number] 2.16.840.1.570666.3.579.2.1259 1947 Unknown [id number] [id number] 1947 Unknown [id number] [id number] 1947 Unknown [id number] 2.16.840.1.707224.3.579.2.727 1947 Unknown [id number] [id number] 1947 Unknown [id number] [id number] 1947 Unknown [id number] 2.16.840.1.461092.3.579.2.1244 Unknown [id number] [id number] Unknown [id number] Social History Date Type Detail Facility Start: 03-28-2022 End: 07-22-2024 Tobacco smoking status Never smoked tobacco (finding) [facility] Start: 05-15-2023 End: 07-22-2024 Sex Assigned At Male [facility] Start: 05-10-2021 End: 07-22-2024 Tobacco use and exposure Smokeless tobacco non-user [facility] Start: 03-30-2022 End: 10-29-2024 Alcohol intake Ex-drinker (finding) [facility] Start: 1945 Sex Assigned At Not on file [facility] Start: 03-20-2022 End: 10-29-2024 Exposure to SARS-CoV-2 (event) Not sure [facility] Tobacco smoking status Never [facility] Start: 05-15-2023 End: 07-22-2024 History of Social function [facility] Start: 1945 Sex Assigned At Male [facility] Start: 10-27-2024 Sex Male (finding) [facility] Medical Equipment Procedure Code Equipment Code Equipment Origin al Text Equipment Identifier Dates Mesh Prolene Squ are Flat [id number] Surgical Knit Nonabsorbable Nonreactive - [id number] Start: 02-23-2023 Goals Date Patient Goal Desired Activity /State Functional Status Date Assessment Result Facility 06-04-2024 Functional Status N/A [facility] 11-28-2023 Functional Status N/A [facility] 08-15-2023 Functional Status N/A [facility] 01-24-2023 Functional Status N/A [facility] 01-11-2023 Functional Status N/A [facility] 12-28-2022 Functional Status N/A [facility] 12-14-2022 Functional Status N/A [facility] 11-30-2022 Functional Status N/A [facility] 11-23-2022 Functional Status N/A [facility] 11-08-2022 Functional Status N/A [facility] 10-04-2022 Functional Status N/A [facility] 03-28-2022 Functional Status N/A [facility] Clinical Notes 03-28-2022 to 10-29-2024 Don Joseph, DO - 10/29/2024 10:50 AM ESTPatient InstructionsAttachments Note Date & Type Note Facility 10-29-2024 History of Present illness Narrative Subjective Yoni Ramirez is a 79 y.o. male Chief Complaint Follow-up; Post-Cath 79-year-old gentleman returns for follow-up following coronary evaluation this past July for unstable anginal symptomatology. Details of the left heart catheterization revealed basically subtotally occluded small diagonal branch that was collateralized with mild three-vessel disease and mild LV dysfunction with ejection fraction of 45 to 50%. He has subsequently been initiated on appropriate GDMT; could not afford the Entresto and therefore is on valsartan 40 twice daily. Blood pressure is under good control. His admits that he has had nitroglycerin use approximately 5-7 times in the interim. He states he feels great , does not have resting anginal symptomatology. He asked a number of questions in regards to stable angina and unstable angina and anatomy we discussed this extensively for 30 minutes this morning and reviewed his appropriate medications. Dr. Chavez, his primary care physician ordered a number of labs last week we will try to acquire these as they have not populated our EMR as of yet Will follow-up with nurse practitioner in 6 months on same therapies, continue treatment for stable angina with single-vessel ASHD involving diagonal branch is already collateralized and for mild ischemic cardiomyopathy. Review of Systems All other systems reviewed and are negative. Vitals: 10/29/24 1109 BP: 132/70 BP Location: Left arm Patient Position: Sitting Pulse: 60 Weight: 106 kg (232 lb 12.8 oz) Height: 1.778 m (5' 10 ) Objective Physical Exam Constitutional: Appearance: Normal appearance. HENT: Nose: Nose normal. Neck: Vascular: No carotid bruit. Cardiovascular: Rate and Rhythm: Normal rate. Pulses: Normal pulses. Heart sounds: Normal heart sounds. Pulmonary: Effort: Pulmonary effort is normal. Abdominal: General: Bowel sounds are normal. Palpations: Abdomen is soft. Musculoskeletal: General: Normal range of motion. Cervical back: Normal range of motion. Right lower leg: No edema. Left lower leg: No edema. Skin: General: Skin is warm and dry. Neurological: General: No focal deficit present. Mental Status: He is alert. Psychiatric: Mood and Affect: Mood normal. Behavior: Behavior normal. Thought Content: Thought content normal. Judgment: Judgment normal. Allergies Patient has no known allergies. Current Medications Current Outpatient Medications: allopurinol (Zyloprim) 300 mg tablet, Take 1 tablet (300 mg) by mouth once daily., Disp: , Rfl: aspirin 81 mg EC tablet, Take 1 tablet (81 mg) by mouth once daily., Disp: , Rfl: atorvastatin (Lipitor) 20 mg tablet, Take 1 tablet (20 mg) by mouth once daily., Disp: , Rfl: carvedilol (Coreg) 12.5 mg tablet, Take 1 tablet (12.5 mg) by mouth 2 times a day., Disp: , Rfl: furosemide (Lasix) 20 mg tablet, Take 1 tablet (20 mg) by mouth once daily., Disp: 14 tablet, Rfl: 3 isosorbide mononitrate ER (Imdur) 30 mg 24 hr tablet, Take 1 tablet (30 mg) by mouth once daily., Disp: , Rfl: nitroglycerin (Nitrostat) 0.4 mg SL tablet, Place 1 tablet (0.4 mg) under the tongue every 5 minutes if needed for chest pain., Disp: , Rfl: spironolactone (Aldactone) 25 mg tablet, Take 0.5 tablets (12.5 mg) by mouth once daily., Disp: 15 tablet, Rfl: 1 valsartan (Diovan) 40 mg tablet, Take 1 tablet (40 mg) by mouth 2 times a day., Disp: 14 tablet, Rfl: 1 Assessment/Plan 1. Abnormal nuclear stress test Follow Up In Cardiology 2. Chest pain, unspecified type Follow Up In Cardiology 3. Coronary artery disease involving bois forte coronary artery of bois forte heart, unspecified whether angina present 4. Primary hypertension 5. Pure hypercholesterolemia 6. PVC (premature ventricular contraction) 7. RBBB 8. Obstructive sleep apnea syndrome 9. BMI 33.0-33.9,adult 10. Edema, unspecified type Scribe Attestation By signing my name below, Najma Petersen LPN, Scribe attest that this documentation has been prepared under the direction and in the presence of Don Joseph DO. Provider Attestation - Scribe documentation All medical record entries made by the Scribe were at my direction and personally dictated by me. I have reviewed the chart and agree that the record accurately reflects my personal performance of the history, physical exam, discussion and plan. documented in this encounter [facility] Work Phone: 10-29-2024 Instructions Najma Tuttle LPN - 10/29/2024 10:50 AM EST Please bring all medicines, vitamins, and herbal supplements with you when you come to the office. Prescriptions will not be filled unless you are compliant with your follow up appointments or have a follow up appointment scheduled as per instruction of your physician. Refills should be requested at the time of your visit. BMI was above normal measurement. Current weight: 106 kg (232 lb 12.8 oz) Weight change since last visit (-) denotes wt loss 6.6 lbs Weight loss needed to achieve BMI 25: 58.9 Lbs Weight loss needed to achieve BMI 30: 24.2 Lbs Provided instructions on dietary changes Provided instructions on exercise. The following attachments cannot be sent through Care Everywhere.Heart Healthy Diet (Malian)documented in this encounter [facility] Work Phone: 07-30-2024 Evaluation note Diagnosis Onset Date Resolution Bradycardia acute July 30, 2024 3:40pm Hypercholesterolemia acute Octo janelle 2023 3:40pm Hypertension acute July 3:40pm Ischemic cardiomyopathy acute O ctober 2023 3:40pm PVC (premature ventricular contraction) acute July 30, 2024 3:40pm Chronic HFrEF (heart failure with reduced ejection fraction) deleted July 30, 2024 3:40pm Angina of effort acute September 05, 2024 2:33pm Bradycardia acute August 2:33pm Chronic heart failure with preserved ejection fraction (HFpEF) acute September 05, 2024 2:33pm Hypercholesterolemia acute Nove mber 2023 2:33pm Hypertension acute August 2:33pm Ischemic cardiomyopathy acute N ovember 2023 2:33pm PVC (premature ventricular contraction) acute September 05, 2024 2:33pm Angina of effort acute October 27, 2024 3:03pm Chronic heart failure with preserved ejection fraction (HFpEF) acute October 27, 2024 3:03pm Hypercholesterolemia acute Randolph wendy 2024 3:03pm Hypertension acute October 3:03pm Ischemic cardiomyopathy acute J anuary 2024 3:03pm MCI (mild cognitive impairment) acute October 27, 2024 3:03pm Medicare annual wellness visit, subsequent acute October 27, 2024 3:03pm MIHIR (obstructive sleep apnea) acute October 27, 2024 3:03pm Prostate cancer acute October 152024 3:03pm PVC (premature ventricular contraction) acute October 27, 2024 3:03pm [facility] Work Phone: 1(664) 807-263210-10-2024 [facility] History of Present illness Narrative* Don Joseph, DO - 07/22/2024 11:10 AM EDT Cardiology Consultation- New Consult Reason for referral: Chest pain HPI: Yoni Ramirez is a 79 y.o. male seen in interventional cardiology consultation at request of Dr. Mao Chavez and [facility] advance nurse practitioner after patient was seen in the emergencyroom for second episode of chest heaviness and burning. He has had 2 episodes described as above lasting several minutes. He had stress imaging performed at [facility] revealing inferior perfusion defect with preserved left ventricular function, ejection fraction is 60%. Baseline ECG reveals sinus rhythm with right bundle branch block and left anterior fascicular block; I have no old ECGs to compare to Patient is treated for hypertension, medications are reviewed and appropriate GDMT is been initiated including aspirin and isosorbide. Patient's adds additionally, that the patient has had to use nitroglycerin once or twice sincehis second ER evaluation. There is no prior history of myocardial infarction, revascularization, stroke, thromboembolic or bleeding disorder. Case was originally discussed with [facility] advanced nurse practitioner in the ER on the evening he was in the ER we had no beds at [facility]; and because of negative troponins at that time and otherwise low HONEY risk score he was discharged for follow-up stress imaging as mentioned above and follow-up for outpatient cardiology consultation which is now occurring today Risks, benefits, alternatives and informed decision-making process performed with patient and for 30 minutes this morning in regards to conservative versus invasive management and possibility for PCI if necessary. Patient would like to proceed with catheterization possible intervention detailsof risk and alternatives reviewed extensively. Recommendations will proceed with left heart catheterization via the right radial approach with excellent 3+ pulse on exam today, continue current therapies will follow-up thereafterwards Past Medical History: He has no past medical history on file. Surgical History: He has a past surgical history that includes Hernia repair (Left, 2014); Umbilical hernia repair; Prostatectomy (06/20/2018); and Colonoscopy. Family History: Family History Problem Relation Name Age of Onset Lung cancer Mother Lung cancer Father Social History: Social History Tobacco Use Smoking status: Never Smokeless tobacco: Never Substance Use Topics Alcohol use: Not Currently Allergies: Patient has no known allergies. Current Medications: Current Outpatient Medications: allopurinol (Zyloprim) 300 mg tablet, Take 1 tablet (300 mg) by mouth once daily., Disp: , Rfl: amLODIPine (Norvasc) 5 mg tablet, Take 0.5 tablets (2.5 mg) by mouth 2 times a day., Disp: , Rfl: aspirin 81 mg EC tablet, Take 1 tablet (81 mg) by mouth once daily., Disp: , Rfl: atorvastatin (Lipitor) 20 mg tablet, Take 1 tablet (20 mg) by mouth once daily., Disp: , Rfl: carvedilol (Coreg) 12.5 mg tablet, Take 1 tablet (12.5 mg) by mouth 2 times a day., Disp: , Rfl: isosorbide mononitrate ER (Imdur) 30 mg 24 hr tablet, Take 1 tablet (30 mg) by mouth once daily., Disp: , Rfl: lisinopril 10 mg tablet, Take 1 tablet (10 mg) by mouth once daily., Disp: , Rfl: lisinopriL-hydrochlorothiazide 20-25 mg tablet, Take 1 tablet by mouth once daily., Disp: , Rfl: nitroglycerin (Nitrostat) 0.4 mg SL tablet, Place 1 tablet (0.4 mg) under the tongue every 5 minutes if needed for chest pain., Disp: , Rfl: Vitals: Vitals: 07/22/24 1113 07/22/24 1114 BP: 144/62 138/60 BP Location: Left arm Right arm Patient Position: Sitting Sitting Pulse: 51 Weight: 103 kg (226 lb 3.2 oz) Height: 1.778 m (5' 10 ) EKG done in office today Review of Systems Cardiovascular: Positive for chest pain. All other systems reviewed and are negative. Objective Physical Exam Constitutional: Appearance: Normal appearance. HENT: Nose: Nose normal. Neck: Vascular: No carotid bruit. Cardiovascular: Rate and Rhythm: Bradycardia present. Pulses: Normal pulses. Heart sounds: Normal heart sounds. Pulmonary: Effort: Pulmonary effort is normal. Abdominal: General: Bowel sounds are normal. Palpations: Abdomen is soft. Musculoskeletal: General: Normal range of motion. Cervical back: Normal range of motion. Right lower leg: No edema. Left lower leg: No edema. Skin: General: Skin is warm and dry. Neurological: General: No focal deficit present. Mental Status: He is alert. Psychiatric: Mood and Affect: Mood normal. Behavior: Behavior normal. Thought Content: Thought content normal. Judgment: Judgment normal. Assessment and Plan: 1. Abnormal nuclear stress test 2. Chest pain, unspecified type 3. Bradycardia 4. RBBB 5. Primary hypertension 6. Pure hypercholesterolemia 7. Obstructive sleep apnea syndrome 8. BMI 32.0-32.9,adult Scribe Attestation By signing my name below, Najma Petersen LPN, Scribmelchor attest that this documentation has been prepared under the direction and in the presence of Igor Joseph DO. Provider Attestation - Scribe documentation All medical record entries made by the Scribe were at my direction and personally dictated by me. Sandeep reviewed the chart and agree that the record accurately reflects my personal performance of the history, physical exam, discussion and plan. documented in this [facility] Work Phone: 1(898) 194-582010-08-2024 Instructions* Patient Instructions* Najma Tuttle LPN - 07/22/2024 11:10 AM EDT Please bring all medicines, vitamins, and herbal supplements with you when you come to the office. Prescriptions will not be filled unless you are compliant with your follow up appointments or have a follow up appointment scheduled as per instruction of your physician. Refills should be requested at the time of your visit. BMI was above normal measurement. Current weight: 103 kg (226 lb 3.2 oz) Weight change since last visit (-) denotes wt loss 226.2 lbs Weight loss needed to achieve BMI 25: 52.3 Lbs Weight loss needed to achieve BMI 30: 17.6 Lbs Provided instructions on dietary changes. * Attachments The following attachments cannot be sent through Care Everywhere. * DASH Diet (Malian) documented in this [facility] Work Phone: 1(459) 842-112208-21-2024 Hospital Discharge instructions Patient Education 06/04/2024 09:16:57 Artificial Urinary [...] including vitamins, herbs, eye drops, creams, and ldxl-mvr-joiikvy medicines. Any problems you or family members [...] provider tells you to take them. Taking zfti-obv-xceojul medicines, vitamins, herbs, and supplements. Surgery safety [...] blood oxygen level will be monitored until youleave the hospital or clinic. A catheter will be left in your urethra to help drain your bladder during recovery. The catheter may be removed before you leave the hospital. If you have problems draining urine after the procedure,it may be left in until you can [...] fluid-filled cuff, a fluid-filled balloon, and a pumpthat activates the AUS. You will not use your AUS right away. It will be activated 4 6 weeks after the procedure. This information is not intended to replace advice given to you by your health care provider. Make sure you discuss any questions you have with your health care provider. Document Revised: 05/06/2021 Document Reviewed: 05/06/2021 [employer] Patient Education 2022 [employer]. Follow Up Care 11/28/2023 11:10:53 With:Fish WHARTON, Radha Tejada, URAdriel, URO Address: When: Unknown [facility] 08-21-2024 NotePatient Education Urology Artificial Urinary Sphincter Placement An [...] including vitamins, herbs, eye drops, creams, and lepu-yfe-eeiczpg medicines. ? Any problems you or family [...] tells you to take them. ? Taking fxqq-sxm-umkauna medicines, vitamins, herbs, and supplements. Surgery safety [...] urethra. The tube will help to drain urineduring and after the procedure. ? An incision [...] folds of skin around the opening of yourvagina (labia). ? The cuff, balloon, and pump [...] 4?6 weeks after the (more content not included)...[facility]08-06-2024 History of Present illness Narrative* Aaliyah Hernandez MD - 05/20/2024 1:15 PM EDT Radiation Oncology - Follow [...] ASSESSMENT/PLAN: Prostate adenocarcinoma, initial PSA 7.4, biopsy [place] score 4 + 3 = 7 (grade [...] MD cc: Bro Chavez (Aj) [address] [place] [address] Dr. Whitten [facility] NoteHNO ID: [id number] Author: Aaliyah HERNANDEZ MD Service: ? Author [...] Hematuria: none Dysuria: none (more content not included)...[facility]06-18-2024 NoteHNO ID: [id number] Author: DAVID PORTILLO RT(Massiel) Service: ? Author Type: Technologist Type: Progress [...] PATIENT PRESENTS WITH AN IMPLANTABLE OR ATTACHED DIRECTOR RELIGIOUS EDUCATION: No RADIOLOGY DEPARTMENT: CT; Exam(s) Completed: Abdomen/Pelvis PERIPHERAL IV DATA: Not applicable SIGNED BY: RT Haylee(R) April 01, 2024 11:36 [facility]06-18-2024 History of Present illness Narrative* David Portillo RT(R) - 04/01/2024 11:36 AM EDT Radiology Service Progress Note PATIENT NAME: Yoni Ramirez DATE OF SERVICE: April 01, 2024 TIME: 11:36 AM PATIENT IDENTITY VERIFICATION COMPLETED USING TWO (2) IDENTIFIERS: Name and Date of confirmedby patient verbally. FALL SCREENING: Has the patient had 2 falls in the last year or 1 fall with injury or currently using an Ambulatory Assistive Device (Walker, Cane, Wheelchair, Crutches, etc.)? No PATIENT GENDER DATA: Male PATIENT RELEVANT IMPLANT DATA REVIEWED: Not Applicable PATIENT PRESENTS WITH AN IMPLANTABLE OR ATTACHED DIRECTOR RELIGIOUS EDUCATION: No RADIOLOGY DEPARTMENT: CT; Exam(s) Completed: Abdomen/Pelvis PERIPHERAL IV DATA: Not applicable SIGNED BY: RT Haylee(R) April 01, 2024 11:36 AM documented in this [facility] Nurse Note* Kristy Monreal OCCA - 04/01/2024 10:03 AM EDT What is the reason for your visit today? s/p open left anterior groin mesh removal (plug and patch)and abdominal wall reconstruction with bilateral transversus abdominus [...] Wound: Temperature: No Drains: No [facility]06-18-2024 Nurse Note* Kristy Monreal OCCA - 04/01/2024 10:03 AM EDT What is the reason for your visit today? s/p open left anterior groin mesh removal (plug and patch)and abdominal wall reconstruction with bilateral transversus abdominus [...] Drains: No documented in this [facility]Ak[facility] History of Present illness Narrative* Donato Bishop MD - 04/01/2024 10:00 AM EDT [facility] - Follow Up Visit Assessment/Plan: Yoni Ramirez is a 78 year old male s/p open left anterior groin mesh removal (plug and patch) and abdominal wall reconstruction with bilateral transversus abdominus release and 30 x 30 cm retrorectus Prolene mesh on 02/23/23 for a large recurrent left inguinal hernia, reducible right inguinalhernia, and incarcerated epigastric hernia. He was seen postoperatively 03/20/2023 and was recoveringwell. His hospital course was complicated by significant [...] the midline. Midline incision well-healed. Some fungal irritationin lower abdominal skin fold, right worse than left. Donato Bishop MD 04/01/24, 10:35 AM General Surgery [facility] Medical Decision Making: Problems: Low: Stable chronic illness Data: Unique test result(s) reviewed: 1 Independent interpretation of test from other physician/QHCP Risk: Low: Low risk from testing/treatment Medical Decision Making Level: 3 - Low documented in this encounterAk[facility]-2024 NoteHNO ID: [id number] Author: DONATO BISHOP MD Service: ? Author Type: Physician Type: Progress Notes Filed: 04/07/2024 16:41 Note Text: [facility] - Follow Up Visit [...] Bishop MD 04/01/24, 10:35 AM General Surgery [facility] Medical Decision Making: Problems: Low: Stable chronic illness Data: Unique test result(s) reviewed: 1 Independent interpretation of test from other physician/QHCP Risk: Low: Low risk from testing/treatment Medical Decision Making Level: 3 - [facility] Hospital Discharge instructions Patient Education 11/28/2023 10:58:17 Kegel Exercises [...] provider. Document Revised: 02/09/2022 Document Reviewed: 02/09/2022 [employer] Patient Education 2022 [employer]. Follow Up Care 08/15/2023 09:39:21 With:Fish WHARTON, ALANNA Hahn, URO Address: [address], [place] [phone] When: Unknown Comments:6 months [facility] 02-06-2024 Nurse Note* Yamilex Golden LPN - 11/20/2023 1:18 PM EST Patient c/o continued urinary incontinence. Started Gemtesa approximately 3 months ago with little improvement. documented in this [facility]Ak[facility]-2024 NoteHNO ID: [id number] Author: Aalyiah HERNANDEZ MD Service: ? Author Type: Physician Type: Progress Notes Filed: 11/28/2023 15:34 Note Text: Radiation Oncology - Follow Up Note PATIENT NAME: Yoni Ramirez PATIENT DIAGNOSIS: Prostate adenocarcinoma, initial PSA 7.4, biopsy [place] score 4 + 3 = 7 (grade [...] OF SYSTEMS: D/N = (more content not included)...[facility]02-06-2024 History of Present illness Narrative* Aaliyah Hernandez MD - 11/20/2023 1:12 PM EST Radiation Oncology - Follow Up [...] ASSESSMENT/PLAN: Prostate adenocarcinoma, initial PSA 7.4, biopsy [place] score 4 + 3 = 7 (grade [...] Aaliyah Hernandez MD cc: Bro Chavez ([facility]) [address] [place] [address] Dr. Whitten documented in this encounterAkron [facility]12-28-2023 Evaluation note* Encounter Date Diagnosis Assessment Notes Treatment Notes Treatment Clinical Notes Sep, Medicare annual wellness visit, subsequent [...] use, the patient reduces the risk for HI, CVA, HTN, cardiac dysrhythmias and sudden cardiac [...] from previous results Blood loss from surgery? [facility] 12-19-2023 Evaluation note* Encounter Date Diagnosis Assessment Notes Treatment Notes Treatment Clinical Notes Sep, Anemia (ICD-10 - D64.9) [facility] Other 11-08-2023 Evaluation note* Encounter Date Diagnosis Assessment Notes Treatment Notes Treatment Clinical Notes Aug, COVID-19 (ICD-10 - U07.1) [facility] Other 11-07-2023 Evaluation note* Encounter Date Diagnosis [...] continue exercise to achieve/maintain a normal BMI. [facility] Other 11-01-2023 Hospital Discharge instructions Patient Education [...] provider. Document Revised: 02/09/2022 Document Reviewed: 02/09/2022 [employer] Patient Education 2022 [employer]. Follow Up Care 06/01/2023 13:07:42 With:Fish WHARTON, ALANNA Hahn, URO Address: When:Within 3 Month(s) [facility] 09-29-2023 Evaluation note* Encounter Date Diagnosis [...] use, the patient reduces the risk for HI, CVA, HTN, cardiac dysrhythmias and sudden cardiac [...] High risk medication use (ICD-10 - Z79.899) [facility] 08-01-2023 History of Present illness Narrative* Aaliyah Hernandez MD - 05/15/2023 1:32 PM EDT Radiation Oncology - Follow Up Note PATIENT NAME: Yoni Ramirez PATIENT DIAGNOSIS: Prostate adenocarcinoma, initial PSA 7.4, biopsy [place] score 4 + 3 = 7 (grade [...] Aaliyah Hernandez MD cc: Bro Chavez ([facility]) [address] [place] [address] Dr. Whitten documented in this encounterAkron [facility] [...] use, the patient reduces the risk for HI, CVA, HTN, cardiac dysrhythmias and sudden cardiac [...] s/p ADT No ongoing treatment Serial PSA [facility] Other 06-01-2023 Evaluation note* Encounter Date Diagnosis [...] use, the patient reduces the risk for HI, CVA, HTN, cardiac dysrhythmias and sudden cardiac [...] repair. Ventral hernia repair No complications noted. [facility] Other 05-16-2023 NoteHNO ID: [id number] Author: Michelle Bryant MD Service: General Surgery [...] MD For team paging 6AM-6PM during weekdays: [phone] for [facility] Team For team paging after 6PM or on weekend / holidays: [phone] for General Surgery Subjective: Acute events overnight: [...] input(s): APTT, PT, INR in the last 90496 hours. Intake and Output: Date 02/26/23699 - 02/27/2365802/27/23699 - 02/28/23 0659 Shift 8619-9226 8506-5277 8166-5831 24 Hour Total 2904-1608 7996-4114 9718-8496 24 Hour Total INTAKE PO 360 360 720 PO 360 360 720 IV 300 300 Volume (mL) (magnesium sulfate iv piggyback in sterile water 2 g 50 mL) 50 50 Volume (mL) (potassium phosphate 30 mmol in NaCl 0.9% 250 mL) 250 250 Shift Total 665 465 6936 OUTPUT Urine 1000 1900 2900 Urine Incontinence/Not [...] (ROXICODONE) 2.5-5 mg ORAL q 4 H PRNFNewton-Wellesley HospitalQsamghjp41-99-1408 NoteHNO ID: [id number] Author: Perez Salvador MD Service: General Surgery [...] Agrawal MD General Surgery, PGY-1 Personal Pager/Phone: [phone] Service Pager: [phone] ([facility]) For weekday evenings (6PM-6AM) or weekends/holidays, please page [phone] ([facility] Gen Surg weekends/nights)[facility]43 History of Past illness Narrative* Problem Noted [...] of 11/28/2023) [facility]05-[facility]-2023 NoteHNO ID: [id number] Author: Carolina Lorenz MD Service: General Surgery [...] MD For team paging 6AM-6PM during weekdays: [phone] for [facility] Team For team paging after 6PM or on weekend / holidays: [phone] for General Surgery Subjective: Acute events overnight: [...] input(s): APTT, PT, INR in the last 69221 hours. Intake and Output: Date 02/25/23 07 - 02/26/23 0659 02/26/23 0700 - 02/27/23 0659 Shift 4148-5591 6891-4789 9495-3910 24 Hour Total 9397-9995 2512-8919 8858-6528 24 Hour Total INTAKE PO 340 120 460 PO 340 120 460 IV 559 559 Volume (mL) (lactated ringers iv infusion) 559 559 Shift Total 340 830 524 8726 OUTPUT Urine 4879 480 0095 2750 Output ( External Collection Device 02/25/23 0000) 4598 692 5181 2750 Tubes 40 55 20 115 Drain/Tube Output (Drain/Tube 02/23/230 Chip Spivey Right Upper Quadrant Abdomen Drain #1) 20 30 0 50 Drain/Tube Output (Drain/Tube 02/23/232121 Chip Spivey Left Upper Quadrant Abdomen) 20 25 20 65 # of BMs Number of BMs 0 x 0 x 0 x Shift Total 2907 844 5777 2865 Weight (kg) Current Medications: Current Facility-Administered [...] NaCl 0.9% 250 mL 30 mmol INTRAVENOUS ONCECentral HospitalZydigyuq32-69-0955 NoteHNO ID: [id number] Author: Chris Avendano MD Service: General Surgery [...] Resident For team paging 6AM-6PM during weekdays: [phone] for [facility] Team For team paging after 6PM or on weekend / holidays: [phone] for General Surgery Subjective: Acute events overnight: [...] input(s): APTT, PT, INR in the last 62554 hours. Intake and Output: Date 02/24/23 07 - 02/25/2365802/25/23 07 - 05/15/23 0659 Shift 4981-5389 3000-2207 9810-7317 24 Hour Total 4762-8167 2449-2225 7498-5290 24 Hour Total INTAKE PO 240 450 250 940 PO 240 450 250 940 IV 5658 898 4762 Volume (mL) (ceFAZolin iv piggyback 2 g in D5W (iso-osmotic) 100 mL (ANCEF)) 100 100 Volume (mL) (lactated ringers iv infusion) 2294 412 0258 Shift Total 2017 79 3053 OUTPUT Urine 721 435 0313 3025 Void (ml) 250 250 Output ([REMOVED] Indwelling Urinary Catheter 02/23/23 2325 Assessment Psear 02/25/23 0012) 317 238 4779 2575 Output ( External Collection Device 02/25/23 [...] x 1 x 1 x Shift Total 818 532 3789 3265 Weight (kg) Current Medications: Current Facility-Administered [...] mg/mL) - 200 mL PERIPHERAL NERVE CATHETER CONTINUOUS[address]13-2023 NoteHNO ID: [id number] Author: Chris Avendano MD Service: General Surgery [...] Lorenz MD, PGY-1 General Surgery Resident Pager [phone] For after hours issues, please call the on-call pager For team paging 6AM-6PM during weekdays: [phone] for [facility] Team For team paging after 6PM or on weekend / holidays: [phone] for General Surgery Subjective: Acute events overnight: [...] input(s): APTT, PT, INR in the last 77856 hours. Intake and Output: Date 02/23/23699 - 02/24/2365802/24/23699 - 02/25/23 0659 Shift 8210-4242 4379-5003 6050-4968 24 Hour Total 6485-2827 9305-0137 9147-0936 24 Hour Total INTAKE PO 60 60 [...] mL (ANCEF) 2 g INTRAVENOUS q 8 [facility]05-13-2023 NoteHNO ID: [id number] Author: Perez Salvador MD Service: General Surgery Author Type: Resident Type: Plan of Care Filed: 02/24/2023 4:59 AM Note Text: GENERAL SURGERY POST-OPERATIVE CHECK NOTE PATIENT NAME: Yoni Ramirez AGE: [age] year old : 1945 SEX: male ASSESSMENT AND PLAN: 77 year old male POD0 s/p Attempted xahi-eun-bosum repair of L femoral hernia, Excision of [...] Agrawal MD General Surgery, PGY-1 Personal Pager/Phone: [phone] Service Pager: [phone] ([facility]) For weekday evenings (6PM-6AM) or weekends/holidays, please page [phone] ([facility] Gen Surg weekends/nights) SUBJECTIVE: Patient feels [...] dry and intact without strike-through LINES/TUBES: FERNANDO [address]05-13-2023 NoteHNO ID: [id number] Author: Tristan Solorio MD Service: Anesthesiology Author Type: Anesthesiologist Type: Anesthesia Procedure Notes Filed: 02/23/2023 11:18 PM Note Text: ANESTHESIOLOGY PROCEDURE NOTE Peripheral Nerve Block General Information Procedure Start Time/Medication Administration: 02/23/2023 10:41 PM Procedure End time: 02/23/2023 11:07 PM Patient location during procedure: OR Timeout Performed Pre-procedure: timeout performed Consent Obtained: Yes 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, 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 Reason for block: [...] February 23, 2023 TIME: 11:15 PM CSN: [id number] NoteHNO ID: [id number] Author: Tristan Solorio MD Service: Anesthesiology Author Type: Anesthesiologist Type: Anesthesia Procedure Notes Filed: 02/23/2023 11:15 PM Note Text: ANESTHESIOLOGY PROCEDURE NOTE Peripheral Nerve Block General Information Procedure Start Time/Medication Administration: 02/23/2023 10:41 PM Procedure End time: 02/23/2023 11:07 PM Patient location during procedure: OR Timeout Performed Pre-procedure: timeout performed Consent Obtained: Yes 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, 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 Reason for block: [...] February 23, 2023 TIME: 11:13 PM CSN: [id number] NoteHNO ID: [id number] Author: Stefanie Hitchcock APRN.SUPERVISOR DRIED YEAST Service: Anesthesiology Author Type: Nurse Non Destructive Testing Technician Type: Anesthesia Procedure Notes Filed: 02/23/2023 5:16 PM Note Text: ANESTHESIOLOGY PROCEDURE NOTE PIV General Information Procedure Start Time/Medication Administration: 02/23/2023 5:05 PM Patient Location: OR Staffing SUPERVISOR DRIED YEAST: Stefanie Hitchcock APRN.SUPERVISOR DRIED YEAST Performed by: LARS Preparation Sterility Preparation: hand hygiene performed prior to procedure, surgical cap used, mask used Site Prep: chlorhexidine Procedure Details Indication: need for IV access Needle Size/Type: 18 gauge angiocath Orientation: Left Location: Hand Imaging Guidance Used: No SIGNATURE: Stefanie Hitchcock APRN.CRNA PATIENT NAME: Yoni Ramirez DATE: February 23, 2023 TIME: 5:15 PM CSN: [id number] NoteHNO ID: [id number] Author: Stefanie Hitchcock APRN.SUPERVISOR DRIED YEAST Service: Anesthesiology Author Type: Nurse Non Destructive Testing Technician Type: Anesthesia Procedure Notes Filed: 02/23/2023 3:13 PM Note Text: ANESTHESIOLOGY PROCEDURE NOTE Airway General Information Procedure Start Time/Medication Administration: 02/23/2023 2:44 PM Patient location during procedure: OR Timeout Performed Pre-procedure: timeout performed Consent Obtained: Yes Patient identity confirmed: arm band, 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 and patient Staffing Anesthesiologist: Faisal Kim MD SUPERVISOR DRIED YEAST: Stefanie Hitchcock APRN.SUPERVISOR DRIED YEAST Performed by: LARS Indications and Patient Condition Indications for airway management: anesthesia Preoxygenated: yes anesthesia circuit Patient position: sniffing Method: asleep Cricoid Pressure: Yes Difficult Mask: No Final Airway Details Final airway type: endotracheal airway Final Endotracheal Airway: ETT Cuffed: yes Successful intubation technique: direct laryngoscopy Devices used: intubating stylet Endotracheal tube insertion site: oral Blade: Vl Blade size: #4 ETT size (mm): 7.5 Measured from: lips Measurement (cm): 22 Placement verified by: chest auscultation and capnometry Cormack-Lehane Classification: grade I - full view of glottis Number of attempts at approach: 1 Airway not difficult SIGNATURE: Stefanie Hitchcock APRN.SUPERVISOR DRIED YEAST PATIENT NAME: Yoni Ramirez DATE: February 23, 2023 TIME: 3:11 PM CSN: [id number] Evaluation note* Encounter Date Diagnosis Assessment Notes Treatment Notes Treatment Clinical Notes February, Acute pain of right knee (ICD-10 - M25.561) Ice, elevate and rest. No obvious s/s septic joint or inflammatory arthritis Check ESR, CRP and CBC and if normal, can't see any reason he can't proceed w/ surgery this February, Swelling of right knee joint (ICD-10 - M25.461) [facility] Other 05-03-2023 History and physical note* Nichole Humphrey APRN.SHEEP KILLER - 02/14/2023 1:40 PM EDT HISTORY AND [...] fevers. Neuro: No history of TIA's, stroke, COLLISION REPAIRER tumor, impaired sensorium, hemiplegia, paraplegia or quadraplegia. [...] for your procedure at this surgery center: [facility]: [phone] --[id number] [address]. Please check in on the1st floor at [...] Procedures: - YOU MUST HAVE A RESPONSIBLE ORGANIZATION DEVELOPMENT CONSULTANT TAKE YOU HOME. A ENTRY LEVEL PROGRAMMER OR TRANSACTION COORDINATOR CANNOT BE MADE A RESPONSIBLE ORGANIZATION DEVELOPMENT CONSULTANT. - We recommend that a responsible person stays with you overnight to take care of you. - You cannot stay in a hotel alone after outpatient surgery. You will not be permitted to have yoursurgery, if you do not have someone to take care of you. If you already have an Advance Directive, please fax a copy to [phone] or email to for it to be [...] Jan, Hyperlipidemia type II (ICD-10 - E78.01) [facility] Other 04-24-2023 Evaluation note* Encounter Date Diagnosis Assessment Notes Treatment Notes Treatment Clinical Notes Jan, Strain of right knee , initial encounter (ICD-10 - S86.911A) Ice, heat, elevate and brace IA injection? Prednisone? Jan, Swelling of right knee joint (ICD-10 - M25.461) Rest w/ intermittent ice Jan, Primary osteoarthritis of right knee (ICD-10 - M17.11) Quad exercises, ice/heat, Tylenol [facility] Other 04-17-2023 Evaluation note* Encounter Date Diagnosis [...] for postoperative hypoventilation w/ sedating pain medications. [facility] Other 04-12-2023 Hospital Discharge instructions Patient Education [...] fried and sweet foods. General instructions Take pudl-thn-niiswdl and prescription medicines only as told by [...] 07/28/2010 Document Revised: 01/22/2020 Document Reviewed: 10/17/2018 [employer] Patient Education 2020 [employer]. Follow Up Care 11/08/2022 13:09:05 With:CIERRA ZHU PA-C, URL Address: [address] [place] [address] When:3 months [facility] [id number] Hospital Discharge instructions Patient Education 01/11/2023 09:48:17 [...] Document Reviewed: 05/21/2019 Elsevier Patient Education 2020 [employer] Inc. Follow Up Care 11/08/2022 13:23:11 With:CIERRA ZHU PA-C, URL Address: [address] [place] [address] When: Unknown [facility] 03-16-2023 Hospital Discharge instructions Patient [...] (electrical nerve stimulation). For women, using a manager medical to prevent urine leaks. This is a [...] right after experiencing incontinence. General instructions Take mpzx-lgq-pekndjn and prescription medicines only as told by [...] 11/08/2005 Document Revised: 10/11/2018 Document Reviewed: 01/10/2018 [employer] Patient Education 2020 [employer]. 12/28/2022 09:12:01 Overactive Bladder, Adult Overactive Bladder, [...] fried and sweet foods. General instructions Take xlbp-ixv-ajseozk and prescription medicines only as told by [...] 07/28/2010 Document Revised: 01/22/2020 Document Reviewed: 10/17/2018 [employer] Patient Education 2019 [employer]. Follow Up Care 11/08/2022 13:19:49 With:CIERRA ZHU PA-C, URL Address: [address] [place] [address] When:1 week Comments:1 wk follow up PFPT #5 [facility] 03-14-2023 History of Present illness Narrative* Donato Bishop MD - 12/26/2022 10:20 AM EDT HISTORY AND PHYSICAL [facility] Abdominal Core Health Chief Complaint: inguinal hernia [...] (Radha Whitten) 1994 - Umbilical hernia @ [facility] 2014 - Open left inguinal hernia @ [facility] No history of Psychiatric Disorders or Opioid [...] Bishop MD 01/02/23, 5:14 PM General Surgery [facility] * Kate Funez RN - 12/26/2022 [...] 09/17/2013 Document Revised: 05/21/2019 Document Reviewed: 05/21/2019 [employer] Patient Education 2020 [employer]. Follow Up Care 11/08/2022 13:16:38 With:YESSENIA ZHU, CIERRA Roche, URL Address: [address] [place] [address] When: Unknown [facility] 02-28-2023 History of Present illness [...] leuprolide, 6 month, (LUPRON DEPOT, 6 MONTH,) [facility] Inject intramuscularly as directed. [...] ASSESSMENT/PLAN: Prostate adenocarcinoma, initial PSA 7.4, biopsy Carterville score 4 + 3 = 7 (grade [...] Aaliyah Hernandez MD cc: Bro Chavez ([facility]) [address] [place] [id number] Whitten [facility] [...] Miscellaneous Notes* Allied Health - Kelly Benavides, docking saw operator - 12/04/2022 3:40 PM EST Radiology Service [...] Site disposition Discontinued SIGNED BY: ROSY Campoverde Tech December 04, 2022 4:33 PM documented in [...] 09/17/2013 Document Revised: 05/21/2019 Document Reviewed: 05/21/2019 [employer] Patient Education 2020 [employer] Follow Up Care 11/08/2022 13:07:14 With:CIERRA ZHU PA-C, URL Address: [address] [place] [address] When: Unknown [facility] 02-09-2023 Hospital Discharge instructions Patient [...] fried and sweet foods. General instructions Take wiys-jfp-vtsdkbs and prescription medicines only as told by [...] 07/28/2010 Document Revised: 01/22/2020 Document Reviewed: 10/17/2018 [employer] Patient Education 2020 [employer]. Follow Up Care 11/08/2022 13:06:21 With:CIERRA ZHU PA-C, URL Address: [address] [place] [address]. [place] [address] [phone] When: Unknown [facility] [place] [id number] Nurse Note* Debbie Martin RN - 11/09/2022 [...] ASSESSMENT/PLAN: Prostate adenocarcinoma, initial PSA 7.4, biopsy Carterville score 4 + 3 = 7 (grade [...] Aaliyah Hernandez MD cc: Bro Chavez ([place]) [address] [place] [address] Dr. Whitten [facility] [...] (electrical nerve stimulation). For women, using a manager medical to prevent urine leaks. This is a [...] right after experiencing incontinence. General instructions Take fmvw-goq-evdbjtm and prescription medicines only as told by [...] 11/08/2005 Document Revised: 10/11/2018 Document Reviewed: 01/10/2018 [employer]ie[employer] Patient Education 2020 [employer]. 11/08/2022 12:05:35 Calorie Counting for Weight Loss [...] 10/01/2006 Document Revised: 06/20/2019 Document Reviewed: 08/31/2017 [employer]ieva Patient Education 2020 [employer]. Follow Up Care 10/04/2022 09:47:52 With:Fish WHARTON, ALANNA Hahn, URO Address: When: Unknown [facility] 12-21-2022 Hospital Discharge instructions Patient Education [...] veins. Follow these instructions at home: Take ycgx-uvw-amqcqcc and prescription medicines only as told by [...] 01/07/2002 Document Revised: 12/19/2019 Document Reviewed: 12/19/2019 [employer]ieva Patient Education 2020 [employer]. Follow Up Care 03/28/2022 09:10:25 With:Fish WHARTON, Radha Tejada, URL, URO Address: [address] [place] [address] [place] [address] [phone] When: Unknown Comments:schedule scrotal US [facility] 09-29-2022 Nurse Note* Debbie Martin RN - 07/13/2022 1:22 PM EDT AUA 3 Debbie Martin RN [facility] History of Present illness Narrative* Aaliyah Hernandez [...] ASSESSMENT/PLAN: Prostate adenocarcinoma, initial PSA 7.4, biopsy Carterville score 4 + 3 = 7 (grade [...] Aaliyah Hernandez MD cc: Bro Chavez ([facility]) [address] [place] [address] [facility] History of Present illness Narrative* Aaliyah Hernandez MD - 03/30/2022 2:22 PM EDT Radiation Oncology - Follow Up Note PATIENT NAME: Yoni Ramirez PATIENT DIAGNOSIS: Prostate adenocarcinoma, initial PSA 7.4, biopsy Carterville score 4 + 3 = 7 (grade [...] Aaliyah Hernandez MD cc: Bro Chavez ([facility]) [address] [place] [address] [facility] [...] including vitamins, herbs, eye drops, creams, and ktst-qxt-eudhosf medicines. This also includes: ?Medicines to assist [...] 11/03/2005 Document Revised: 09/13/2018 Document Reviewed: 07/08/2018 Atieva Patient Education 2020 [employer]. Follow Up Care 09/27/2021 10:26:46 With:Tano Bernardo MD, Sushant Sanchez, URO Address: [facility] [address], [place] [address]- When:Within 6 Month(s) [facility] evaluation + Plan note Future Appointments Appointment Date:10/03/2022 08:00:00 AM Scheduled Provider:Sushant Freedman Jr., MD Location:[facility] Appointment Type:URO Office Visit [facility] evaluation + Plan note Future Appointments Appointment Date:01/03/2023 08:00:00 AM Scheduled Provider:Radha Whitten MD Location:[facility] Appointment Type:URO Office Visit [facility] evaluation + Plan note Future Appointments Appointment Date:11/23/2022 09:00:00 AM Scheduled Provider:CIERRA ZHU PA-C [facility] Appointment Type:URO Procedure 30 min Appointment Date:11/30/2022 09:00:00 AM Scheduled Provider:CIERRA ZHU PA-C [facility] Appointment Type:URO Procedure 30 min Appointment Date:12/07/2022 10:30:00 AM Scheduled Provider:CIERRA ZHU PA-C [facility] Appointment Type:URO Procedure 30 min Appointment Date:12/14/2022 09:00:00 AM Scheduled Provider:CIERRA ZHU PA-C [facility] Appointment Type:URO Procedure 30 min Appointment Date:12/28/2022 09:00:00 AM Scheduled Provider:CIERRA ZHU PA-C Location:[facility] [place] Appointment Type:URO Procedure 30 min Appointment Date:01/11/2023 09:00:00 AM Scheduled Provider:CIERRA ZHU PA-C Location:[facility] Appointment Type:URO Procedure 30 min Appointment Date:01/17/2023 08:45:00 AM Scheduled Provider:Radha Whitten MD Location:[facility] Appointment Type:URO Office Visit [facility] evaluation + Plan note Future Appointments Appointment Date:11/30/2022 09:00:00 AM Scheduled Provider:CIERRA ZHU PA-C Location:[facility] Appointment Type:URO Procedure 30 min Appointment Date:12/07/2022 10:30:00 AM Scheduled Provider:CIERRA ZHU PA-C [facility] Appointment Type:URO Procedure 30 min Appointment Date:12/14/2022 09:00:00 AM Scheduled Provider:CIERRA ZHU PA-C Location:[facility] [place] Appointment Type:URO Procedure 30 min Appointment Date:12/28/2022 09:00:00 AM Scheduled Provider:CIERRA ZHU PA-C [facility] Type:[facility]O Procedure 30 min Appointment Date:01/11/2023 09:00:00 AM Scheduled Provider:CIERRA ZHU PA-C [facility] Appointment Type:URO Procedure 30 min Appointment Date:01/17/2023 08:45:00 AM Scheduled Provider:Radha Whitten MD Location:[facility] Appointment Type:URO Office Visit [facility] Evaluation + Plan note Future Appointments Appointment Date:12/07/2022 10:30:00 AM Scheduled Provider:CIERRA ZHU PA-C Location:[facility] Appointment Type:URO Procedure 30 min Appointment Date:12/14/2022 09:00:00 AM Scheduled Provider:CIERRA ZHU PA-C Location:[facility] [place] Appointment Type:URO Procedure 30 min Appointment Date:12/28/2022 09:00:00 AM Scheduled Provider:CIERRA ZHU PA-C [facility] App[facility] Type:URO Procedure 30 min Appointment Date:01/11/2023 09:00:00 AM Scheduled Provider:CIERRA ZHU PA-C Location:[facility] Appointment Type:URO Procedure 30 min Appointment Date:01/17/2023 08:45:00 AM Scheduled Provider:Radha Whitten MD Location:[facility] Appointment Type:URO Office Visit [facility] Evaluation + Plan note Future Appointments Appointment Date:12/28/2022 09:00:00 AM Scheduled Provider:CIERRA ZHU PA-C Location:[facility] Appointment Type:URO Procedure 30 min Appointment Date:01/11/2023 09:00:00 AM Scheduled Provider:CIERRA ZHU PA-C [facility] App[facility] Type:URO Procedure 30 min Appointment Date:01/24/2023 08:30:00 AM Scheduled Provider:CIERRA ZHU PA-C Location:[facility] Appointment Type:URO Procedure 30 min Appointment Date:02/02/2023 09:00:00 AM Scheduled Provider:Radha Whitten MD Location:[facility] Appointment Type:URO Office Visit [facility] Evaluation + Plan note Future Appointments Appointment Date:01/11/2023 09:00:00 AM Scheduled Provider:CIERRA ZHU PA-C Location:[facility] Appointment Type:URO Procedure 30 min Appointment Date:01/24/2023 08:30:00 AM Scheduled Provider:CIERRA ZHU PA-C Location:[facility] Appointment Type:URO Procedure 30 min Appointment Date:02/02/2023 09:00:00 AM Scheduled Provider:Radha Whitten MD Location:[facility] Appointment Type:URO Office Visit [facility] Evaluation + Plan note Future Appointments Appointment Date:01/24/2023 08:30:00 AM Scheduled Provider:CIERRA ZHU PA-C Location:[facility] Appointment Type:URO Procedure 30 min Appointment Date:02/02/2023 09:00:00 AM Scheduled Provider:Radha Whitten MD Location:[facility] Appointment Type:URO Office Visit [facility] evaluation + Plan note Future Appointments Appointment Date:11/28/2023 10:00:00 AM Scheduled Provider:Radha Whitten MD Location:[facility] Appointment Type:URO Office Visit [facility] evaluation + Plan note Future Appointments Appointment Date:06/04/2024 08:45:00 AM Scheduled Provider:Radha Whitten MD Location:[facility] Appointment Type:URO Office Visit [facility] evaluation + Plan note Future Appointments Appointment Date:12/10/2024 08:45:00 AM Scheduled Provider:Radha Whitten MD Location:[facility] Appointment Type:URO Office Visit [facility] evaluation note* Diagnosis Prostate cancer (HCC)- Primary Malignant neoplasm of prostate [facility]* Diagnosis Prostate cancer (HCC)- Primary Malignant neoplasm of prostate [facility]* Diagnosis Prostate cancer (HCC)- Primary Malignant neoplasm of prostate Abdominal mass, left lower quadrant Abdominal or pelvic swelling, mass, or lump, left lower quadrant documented in this encounter [facility] note* Diagnosis Prostate cancer (HCC) Malignant neoplasm of prostate Abdominal mass, left lower quadrant Abdominal or pelvic swelling, mass, or lump, left lower quadrant documented in this encounter [facility] note* Diagnosis Malignant neoplasm of prostate (HCC)- Primary Malignant neoplasm of prostate documented in this encounter [facility] note* Diagnosis Recurrent left inguinal hernia- Primary Inguinal hernia without mention of obstruction or gangrene, recurrent unilateral or unspecified Unilateral recurrent inguinal hernia without obstruction or gangrene Inguinal hernia without mention of obstruction or gangrene, recurrent unilateral or unspecified documented in this encounter [facility] note* Diagnosis Obesity, Class I, BMI 30-34.9 [...] unilateral or unspecified documented in this encounter [facility] noteNo [employer] Other Evaluation note* Diagnosis Malignant neoplasm of prostate (HCC)- Primary Malignant neoplasm of prostate documented in this encounter [facility] note* Diagnosis Malignant neoplasm of prostate (HCC)- Primary Malignant neoplasm of prostate documented in this encounter [facility] note* Diagnosis Onset Date Resolution Status Amaurosis fugax, right eye a cute Hypercholesterolemia acute Hypertension acute MIHIR (obstructive sleep apnea) acute Prostate cancer acute [facility] Work Phone: Evaluation note* Diagnosis Ventral incisional hernia documented in this encounter [facility] note* Diagnosis S/P repair of ventral hernia- Primary Other postprocedural status documented in this encounter [facility] note* Diagnosis Onset Date Resolution Status Anemia acute Hypercholesterolemia acute Hypertension acute MCI (mild cognitive impairment) acute Obesity acute MIHIR (obstructive sleep apnea) acute Prostate cancer acute [facility] Work Phone: Evaluation note* Diagnosis Malignant neoplasm of prostate (HCC)- Primary Malignant neoplasm of prostate documented in this encounter [facility] note* Diagnosis Onset Date Resolution Status Bradycardia acute Chest pain acute Hypercholesterolemia acute Hypertension acute MCI (mild cognitive impairment) acute Obesity acute MIHIR (obstructive sleep apnea) acute [facility] Work Phone: Evaluation note* Diagnosis Onset Date Resolution Status Bradycardia acute Chest pain acute Hypercholesterolemia acute Hypertension acute MCI (mild cognitive impairment) acute Obesity acute MIHIR (obstructive sleep apnea) acute Bradycardia acute Chest pain acute Hypercholesterolemia acute Hypertension acute [facility] Work Phone: Evaluation note* Diagnosis Abnormal nuclear stress test Chest pain, unspecified type Bradycardia Other specified cardiac dysrhythmias RBBB Primary hypertension Unspecified essential hypertension Pure hypercholesterolemia Obstructive sleep apnea syndrome Obstructive sleep apnea (adult) (pediatric) BMI 32.0-32.9,adult documented in this encounter [facility] Work Phone: Evaluation note* Diagnosis Onset Date Resolution Status Bradycardia acute Chest pain acute Hypercholesterolemia acute Hypertension acute MCI (mild cognitive impairment) acute Obesity acute MIHIR (obstructive sleep apnea) acute Bradycardia acute Chest pain acute Hypercholesterolemia acute Hypertension acute Bradycardia acute Chronic HFrEF (heart failure with reduced ejection fraction) acute Hypercholesterolemia acute Hypertension acute Ischemic cardiomyopathy acut e PVC (premature ventricular contraction) acute [facility] Work Phone: Evaluation note* Diagnosis Abnormal nuclear stress test Chest pain, unspecified type 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 Primary hypertension Unspecified essential hypertension Pure hypercholesterolemia PVC (premature ventricular contraction) Other premature beats RBBB Obstructive sleep apnea syndrome Obstructive sleep apnea (adult) (pediatric) BMI 33.0-33.9,adult Edema, unspecified type documented in this encounter [facility] Work Phone: History general Narrative - [...] History COLONOSCOPY Hospitalization History SEE SURGICAL HX [facility] Other History general Narrative - Reported* Type [...] 03/03 23 Hospitalization History SEE SURGICAL HX [facility] Other [place] general Narrative - Reported* Type Description Date [...] 03/03 23 Hospitalization History SEE SURGICAL HX [facility] Other Hospital course Narrative No data available for this section [facility] Discharge instructions Additional Instructions DISCHARGE INSTRUCTIONS FOR CARDIAC PROPERTY LOSS INSURANCE CLAIM ADJUSTER PROCEDURE: Heart Cath The following instructions have been prepared to help you care for yourself, or be cared for upon your return home. 1. You were given conscious sedation. Do not operate a vehicle, power tools, make important decisions, or drink alcohol for 24 hours. You might be drowsy or light headed. Return to the Emergency Room if you have trouble breathing, walking or nausea and vomiting. 2. FOR BLEEDING: Apply continuous pressure to the site and call 911. 3. Operative Site Care: Keep the dressing clean and dry. You may change the dressing only if soiled or wet. You may remove the dressing the following morning. You may wash over the puncture site in the shower. If the puncture site is at the wrist no soaking for 3 days. Some bruising or slight swelling may be present. -Signs of infection are redness, warmth, swelling, getting more sore, colored drainage, fever or chills. -Should the arm or leg become cold, numb, blue or white, call the rubber goods cutter finisher immediately. 4. ACTIVITY: You are advised to go directly home from the hospital. Restrict your activities for the rest of the day. Resume light or normal activities tomorrow. Do not engage in any activity that will stress the puncture site. Avoid heavy lifting (over 15 lbs.), straining or bending at the catheter site for 48 hours after discharge. If the puncture site is at the wrist do not manipulate wrist for 24 hours and no lifting more than 3 lbs for 3 days. 5. DIET:You may eat your regular diet when you desire. 6. MEDICATIONS: Resume your daily prescription schedule. Prescriptions may be sent with you if needed. Use as directed. When taking pain medications, you may experience dizziness or drowsiness. Do not drink alcohol or drive when taking pain medications. 7. If you should experience episodes of angina e.g. chest discomfort, heaviness, tightness, pressure, burning, with or without radiation to the neck, jaws, arms, or back- Use 1 Nitrostat under your tongue every 5-10 minutes, and up to 3 tablets. If no relief- Call 911 and go to the nearest Emergency Room. -Notify the office for recurrent angina, chest pain or other concerns. You may NOT drive yourself home! Follow the medication instructions provided on your discharge. If the dosages and instructions on this sheet differ from the dosage and instructions on the bottle, follow the instructions on the bottle. [facility] is not responsible for incorrect prescription information provided by the patient during their visit. Do not stop your medications without consulting your health care provider. Please take the list with you to your next doctor's appointment.[facility] Work Phone: Progress note No data available for this section [facility] Reason for Referral Specialty Diagnoses / Procedures Referred By Britney suarez Referred To Contact Diagnoses Chest pain, unspecified type Procedures ECG 12 Lead Don Joseph, DO [address] [facility] [address] [place] [address] Referral ID Status Reason Start Date Expiration Date V isits Requested Visits Authorized [id number] Authorized 07/22/2024 07/22/2025 1 1 Specialty Diagnoses / Procedures Referred By Contac t Referred To Contact Cardiology Diagnoses Abnormal nuclear stress test Chest pain, unspecified type Procedures Follow Up In Cardiology Don Joseph, DO [address] [facility] [address] [place] [address] Don Joseph, DO [address] [facility] [address] [place] [address] Referral ID Status Reason Start Date Expiration Date V isits Requested Visits Authorized [id number] Authorized 07/22/2024 07/22/2025 1 1 Specialty Diagnoses / Procedures Referred By Contac t Referred To Contact MR IMAGING Diagnoses Prostate cancer (HCC) Abdominal mass, left lower quadrant Procedures MRI PELVIS WO/W IVCON MRI PELVIS W/O & W/CONTRAST MATERIAL Aaliyah Hernandez MD [address] [place] [address] [place] [address] Mr Imaging Referral ID Status Reason Start Date Expiration Date Visits Requested Visits Authorized [id number] Authorized Auto-Generat ed Referral 11/09/2022 12/09/2023 1 1 Summary Purpose Family History No Family History Records Found Relationship Condition Age at Onset Recorded Date/T mando father Malignant neoplasm of lung Unknown mother Malignant neoplasm of lung Unknown brother due to motor v ehicle traffic accident Unknown Advance Directives No Advanced Directives Records Found Advance Directive Response Recorded Date/ Time Advance Directives No November 12, 2023 2:29pm Advance Directive Response Recorded Date/ Time Advance Directives No April 09 10:32am Advance Directive Response Recorded Date/ Time Advance Directives No July 22, 2024 2:26pm Advance Directive Response Recorded Date/ Time Advance Directives No July 22, 2024 1:26pm Chief Complaint and Reason for Visit Chief [...] cognitive impairment) Obesity MIHIR (obstructive sleep apnea) Chief Complaint Amb Documentation hospital follow up ER f/u:Cardiac Reason for Visit Bradycardia Chest pain Hypercholesterolemia Hypertension MCI (mild cognitive impairment) Obesity MIHIR (obstructive sleep apnea) Bradycardia Chest pain Hypercholesterolemia Hypertension Chief Complaint Amb Documentation hospital follow up ER f/u:Cardiac Abnormal Nuclear Stress Test, Chest pain Reason for Visit Bradycardia Chest pain Hypercholesterolemia Hypertension MCI (mild cognitive impairment) Obesity MIHIR (obstructive sleep apnea) Bradycardia Chest pain Hypercholesterolemia Hypertension Chief Complaint Amb Documentation hospital follow up ER f/u:Cardiac Abnormal Nuclear Stress Test, Chest pain Abnormal Nuclear Stress Test, Chest pain Reason for Visit Bradycardia Chest pain Hypercholesterolemia Hypertension MCI (mild cognitive impairment) Obesity IMHIR (obstructive sleep apnea) Bradycardia Chest pain Hypercholesterolemia Hypertension Chief Complaint Amb Documentation hospital follow up ER f/u:Cardiac Abnormal Nuclear Stress Test, Chest pain Abnormal Nuclear Stress Test, Chest pain Cardiology f/u Reason for Visit Bradycardia Chest pain Hypercholesterolemia Hypertension MCI (mild cognitive impairment) Obesity MIHIR (obstructive sleep apnea) Bradycardia Chest pain Hypercholesterolemia Hypertension Bradycardia Chronic HFrEF (heart failure with reduced ejection fraction) Hypercholesterolemia Hypertension Ischemic cardiomyopathy PVC (premature ventricular contraction) Chief Complaint Admit Date Cardiology f/u July 30, 2024 3 :40pm heart discussion September 05, 2024 2:33pm CC Adult Risk Stratification October 2:08pm wellness October 27, 2024 3 :03pm Reason for Visit Admit Date Bradycardia July 30, 2024 3 :40pm Hypercholesterolemia July 30, 2024 3:40pm Hypertension July 30, 2024 3 :40pm Ischemic cardiomyopathy July 30 3:40pm PVC (premature ventricular contraction) July 30, 2024 3:40pm Chronic HFrEF (heart failure with reduced ejection fraction) July 30, 2024 3:40pm Angina of effort September 05, 2024 2:33pm Bradycardia September 05, 2024 2:33pm 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) September 05, 2024 2:33pm Hypercholesterolemia September 05, 2024 2:33pm Hypertension September 05, 2024 2:33pm Ischemic cardiomyopathy September 05, 2 024 2:33pm PVC (premature ventricular contraction) September 05, 2024 2:33pm Angina of effort October 27, 2024 3 :03pm 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) October 27, 2024 3:03pm Hypercholesterolemia October 27, 2024 3:03pm Hypertension October 27, 2024 3 :03pm Ischemic cardiomyopathy October 27 3:03pm MCI (mild cognitive impairment) October 27, 2024 3:03pm Medicare annual wellness visit, subseque nt October 27, 2024 3:03pm MIHIR (obstructive sleep apnea) October 272024 3:03pm Prostate cancer October 27, 2024 3 :03pm PVC (premature ventricular contraction) October 27, 2024 3:03pm Additional Source Comments Care Team (unrecognized sect ion and content) Team Status: Active Member Role Status Dates Bro Chavez DO Primary Care Provider Active Team Status: Inactive Member Role Status Dates Bro Chavez DO Primary Care Provide r, Attending Provider Active Start: July 30, 2024 End: July 30, 2024 Team Status: Inactive Member Role Status Dates Bro Chavez DO Primary Care Provide r, Attending Provider Active Start: September 05, 2024 End: September 05, 2024 Team Status: Active Member Role Status Dates Bro Chavez DO Primary Care Provide r, Attending Provider Active Start: October 21, 2024 Team Status: Inactive Member Role Status Dates Bro Chavez DO Primary Care Provide r, Attending Provider Active Start: October 27, 2024 End: October 27, 2024 Team Status: Active Member Role [...] 2024 Veronica Castaneda Attending Provider Active Start: pt2023 Team Status: Active Member Role Status Dates Bro Chavez DO Primary Care Provider Active Start: July 01, 2024 SANDRA Fortune Attending Provider Active St art: July 01, 2024 Team Status: Inactive Member Role Status Dates Bro Chavez DO Primary Care Provide r, Attending Provider Active Start: July 02, 2024 End: July 02, 2024 Team Status: Active Member Role Status Dates Bro Chavez DO Primary Care Provider Active Start: July 14, 2024 Patti Dasilva PA-C Attending Provider Active Start: July 14, 2024 Team Status: Active Member Role Status Dates Bro Chavez DO Primary Care Provider Active Start: July 15, 2024 Brian Castano MD Attending Provider Active St art: July 15, 2024 Team Status: Inactive Member Role Status Dates Bro Chavez DO Primary Care Provide r, Attending Provider Active Start: July 18, 2024 End: July 18, 2024 Team Status: Inactive Member Role Status Dates Bro Chavez DO Primary Care Provide r, Attending Provider Active Start: April 09, 2024 End: April 09, 2024 Money Market Clerk Relationship Specialty Start Date End Date Bro Chavez, DO [address] [place] [place] [address] PCP - General Internal Medicine 05/10/21 Money Market Clerk Relationship Specialty Start Date End Date Bro Chavez, DO [address] [place] [place] [address] PCP - General Internal Medicine 05/10/21 Money Market Clerk Relationship Specialty Start Date End Date Bro Chavez, DO [address] [place] [address] PCP - General Internal Medicine 05/10/21 Money Market Clerk Relationship Specialty Start Date End Date Bro Chavez, DO [address] [place] [place] [address] PCP - General Internal Medicine 05/10/21 Money Market Clerk Relationship Specialty Start Date End Date Bro Chavez, DO [address] [facility] [place] [address] PCP - General Internal Medicine 05/10/21 Money Market Clerk Relationship Specialty Start Date End Date Bro Chavez, DO [address] [place] [place] [address] PCP - General Internal Medicine 05/10/21 Money Market Clerk Relationship Specialty Start Date End Date Bro Chavez, DO [address] [place] [place] [address] PCP - General Internal Medicine 05/10/21 Money Market Clerk Relationship Specialty Start Date End Date Bro Chavez, DO [address] [place] [address] PCP - General Internal Medicine 05/10/21 Radha Whitten MD [address] [place] [place] [address] Urology 12/21/22 Money Market Clerk Relationship Specialty Start Date End Date Bro Chavez, DO [address] [place] [facility] [place] [address] PCP - General Internal Medicine 05/10/21 Radha Whitten MD [address] [place] [address] Urology 12/21/22 Money Market Clerk Relationship Specialty Start Date End Date Bro Chavez, DO [address] [place] [facility] [place] [address] PCP - General Internal Medicine 05/10/21 Radha Whitten MD [address] [place] [address] Urology 12/21/22 Money Market Clerk Relationship Specialty Start Date End Date Bro Chavez, DO [address] [place] [facility] [place] [address] PCP - General Internal Medicine 05/10/21 Radha Whtiten MD [address] [place] [address] Urology 12/21/22 Money Market Clerk Relationship Specialty Start Date End Date Bro Chavez DO [address] [place] [address] PCP - General Internal Medicine 05/10/21 Radha Whitten MD [address] [place] [address] Urology 12/21/22 Team Status: Active Member Role [...] February 12, 2024 End: February 12, 2024 Money Market Clerk Relationship Specialty Start Date End Date Bro Chavez DO [address] [place] [address] PCP - General Internal Medicine 05/10/21 Radha Whitten MD [address] [place] [address] Urology 12/21/22 Money Market Clerk Relationship Specialty Start Date End Date Bro Chavez DO [address] [place] [address] PCP - General Internal Medicine 05/10/21 Radha Whitten MD [address] [place] [address] Urology 12/21/22 Money Market Clerk Relationship Specialty Start Date End Date Bro Chavez DO [address] [place] [address] PCP - General Internal Medicine 05/10/21 Radha Whitten MD [address] [place] [address] Urology 12/21/22 Money Market Clerk Relationship Specialty Start Date End Date Bro Chavez DO [address] [place] [address] PCP - General Internal Medicine 05/10/21 Radha Whitten MD [address] [place] [place] [address] Urology 12/21/22 Money Market Clerk Relationship Specialty Start Date End Date Bro Chavez DO [address] [place] [address] PCP - General Internal Medicine 07/22/24 Team Status: Inactive Member Role Status Dates Bro Chavez DO Primary Care Provider Active Start: July 23, 2024 End: July 23, 2024 Tory Joseph DO Attending Provider Active S tart: July 23, 2024 End: July 23, 2024 Team Status: Inactive Member Role Status Dates Bro Chavez DO Primary Care Provider Active Start: July 24, 2024 End: July 24, 2024 Tory Joseph DO Attending Provider Active S tart: July 24, 2024 End: July 24, 2024 Money Market Clerk Relationship Specialty Start Date End Date Bro Chavez DO [address] [place] [address] PCP - General Internal Medicine 07/22/24 Source Comments (unrecognize d section and content) [...] W/O & W/CONTRAST MATERIAL Aaliyah Hernandez MD [address] [place] [address] [place] [address] Mr Imaging Referral ID Status Reason Start Date Expiration Date V isits Requested Visits Authorized [id number] Closed Auto-Generate d Referral 11/09/2022 12/09/2023 1 1 Reason Comments New Reason Comments Pre-Op Visit Reason Comments Radiology CT Specialty Diagnoses / Procedures Referred By Contac t Referred To Contact CT IMAGING Diagnoses Ventral incisional hernia Procedures CT ABD/PEL WO IVCON CT ABD & PELVIS [place] [address] [place] [address] [place] [address] Referral ID Status Reason Start Date Expiration Date V isits Requested Visits Authorized [id number] Closed Auto-Generate d Referral 02/27/2024 04/18/2024 1 1 Reason Comments Follow Up 1 year Reason Comments New Patient Visit [facility]st pa in Reason Comments Follow-up 3 month Post-Cath Specialty Diagnoses / Procedures Referred By Britney suarez Referred To Contact Cardiology Diagnoses Abnormal nuclear stress test Chest pain, unspecified type Procedures Follow Up In Cardiology Don Joseph DO [address] [facility] [address], [place] [id number] Phone: tel: fax: Don Joseph, DO [address] [facility] [address], [place] [id number] Phone: tel: fax: Referral ID Status Reason Start Date Expiration Date V isits Requested Visits Authorized [id number] Authorized 07/22/2024 07/22/2025 1 1 (unrecognized sect ion and content) No Status Records FoundNo Status Records FoundNo Status Records FoundNo Status Records FoundNo Status Records FoundNo Status Records FoundNo Status Records Found INFORMATION SOURCE (unrecogn ized section and content) DATE CREATED AUTHOR 02/25/2023 [facility] DATE CREATED AUTHOR AUTHOR'S ORGANIZ ATION 02/28/2023 [facility] DATE CREATED AUTHOR AUTHOR'S ORGANIZ ATION 03/24/2024 [facility] EPIC DATE CREATED AUTHOR AUTHOR'S ORGANIZ ATION 06/05/2024 [facility] DATE CREATED AUTHOR AUTHOR'S ORGANIZ ATION 08/06/2024 [facility] DATE CREATED AUTHOR AUTHOR'S ORGANIZ ATION 11/01/2024 [facility] DATE CREATED AUTHOR AUTHOR'S ORGANIZ ATION 11/12/2024 [facility] Goals (unrecognized section and content) Goals may [...] BE BASED ON THE PRIMARY CLINICAL RECORDS. [facility] [employer] [facility]. provides no warranty or guarantee of the accuracy or completeness of information in this document.
== END 2024-11-21 07:46 | disposition home or self-care (01) ==
LOC: MRI 07:45
PROVIDERS: PCP Internal Medicine; Visit Provider Internal Medicine
DX: I25.10 Atherosclerotic heart disease of native coronary artery without angina pectoris (principal); I10 Essential (primary) hypertension; R41.0 Disorientation, unspecified; R41.3 Other amnesia
CPT/HCPCS: 70551

== ENCOUNTER 2024-11-24 09:46 | Outpatient (OUT) | payer MEDICARE, OTHER, SELFPAY ==
--- OUTSIDE RECORDS SUMMARY | 2024-11-24 10:00 | XMS_ITS | CCD ---
Author Organization [facility] Care Team Providers Care Label Cutter Name Role Phone BRO CHAVEZ Primary Care [...] KATHY, DR BRO Robinsitting Unavailable KATHY, DR LYMAN Attending Unavailable KATHY, [...] Ciprofloxacin; Translations: [ciprofloxacin] Drug Allergy 8 Unknown [facility] Repository (1 source) No Known Medication Allergies; Translations: [No Known Medication Allergies] Propensity to adverse reactions (disorder) [facility] Repository Medications Current Medications Medication Drug Class(es) [...] unspecified type , Coronary artery disease involving [place] coronary artery of [place] heart with angina pectoris Take 1 tablet [...] Daily, # 30 tab(s), Refills(s) 11, Pharmacy: [facility] [id number], 177, cm, 11/08/22 11:01:00 EST, Height/Length Dosing, [...] Daily, # 30 tab(s), Refills(s) 11, Pharmacy: [facility] [id number], 177, cm, 08/15/23 8:49:00 EDT, Height/Length Dosing, [...] on above: Take 2 tablets by mo [facility] every 6 hours as needed for pain. amLODIPine 5 mg oral tablet (20 sources) Dihydropyridine Calcium Channel Rcahid Start: 07-03-2024 End: 10-10-2024 take 1 tablet [...] 04/22/19 Status: Ordered take 0.[address] [facility] twice daily amLODIPine (Norvasc) 5 mg tablet [...] on above: Take 1 capsule by mo [facility] twice daily. iv contrast (will be provided [...] contrast administration guidelines link. lactobacillus rhamnosus gg [id number] unt oral capsule (2 sources) Start: End: take 1 capsule by mouth once daily lactobacillus rhamnosus (CULTURELLE) 10 billion cell capsule Take 1 capsule by mouth once daily. 14 capsule 0 03/02/2023 11/20/2023 Discontinued (Discontinued by Patient) Comment on above: Take 1 capsule by mo [facility] once daily. 1.5 ml leuprolide acetate 30 [...] 04-22-2019 Chronic Other aftercare (2 sources) Other long-term (current) drug therapy Episodic Other and unspecified [...] Name Value Interpretation Reference Range [facility] Prostate specific Ag [Mass/Vol] ng/mL Normal <2.60 [facility] Comment on above: Order Comment: Speci men Type: BLOOD SPECIMEN Ordering Facility: [facility] Address: [address] [place] [address] Result Comment: Charito sanchez PSA test methodology used is the Electrochemiluminescence Immunoassay by [employer]. Total PSA values by differing methodologies cannot be interchanged. Performed By: #### 2 857-1 #### [facility] CLIA [id number] [address] [place] [address] [place] Estimated glomerular filtrat ion rate (GFR) non- Americanon 10-21-2024 GFR/1.73 sq M.predicted among non-blacks MDRD (S/P/Bld) [Vol rate/Area] Estimated glomerular filtration rate (GFR) non- >=60 mL/min/1.7 3m 2 [facility] - Chemistry and C hemistry - challengeon 10-21-2024 Calcium [Mass/Vol] 9.6 mg/dL 8.5-10.1 [facility] Chloride [Moles/Vol] 108 mmol/L High 98-107 [facility] CO2 [Moles/Vol] 34.5 mmol/L High 21.0-32.[address] [facility] Creatinine [Mass/Vol] 0.90 mg/dL 0.70-1.[address] [facility] GFR/1.73 sq M.predicted MDRD (S/P/Bld) [Vol rate/Area] mL/min/{1.73_m2} >=60 mL/min/1.7 3m 2 [facility] Glucose [Mass/Vol] 103 mg/dL 74-106 [facility] Natriuretic peptide B (Bld) [Mass/Vol] 137.0 pg/mL <=1800.0 [facility] Potassium [Moles/Vol] 4.1 mmol/L 3.5-5.[address] [facility] Sodium [Moles/Vol] 147 mmol/L High 136-145 [facility] Urea nitrogen [Mass/Vol] 14.0 mg/dL 7.0-18.0 [facility] Urea nitrogen/Creatinine [Mass ratio] 15.6 mg/mg [facility] Serum or plasma anion gap de terminationon 10-21-2024 Anion gap [Moles/Vol] Serum or plasma an ion gap determination [facility] Activated partial thrombopla stin time (aPTT) in platelet poor plasma by coagulation aOrdered By: Tory Joseph on 07-23-2024 aPTT Coag (PPP) [Time] 29.1 s 25.1-36.5 [facility] Comment on above: A hematocrit value g reater than 55% may lead to inaccurate results in coagulation testing. Patients having hematocrit values >55% require a special collection tube for coagulation studies. Please contact the laboratory at [phone] for redraw instructions. Automated basophil %Ordered By: Tory Joseph on 07-23-2024 Basophils/100 WBC (Bld) 0.8 % Normal . [facility] Comment on above: Performed By: #### B UN, LYTES, PP, CREAT, LIPID, CBC #### [address] Automated basophil countOrde red By: Tory Joseph on 07-23-2024 Basophils (Bld) [#/Vol] 0.0 10*3/uL Normal 0.0-0.2 [facility] Comment on above: Result Comment: PERF ORMED BY: [place] [address] PATHOLOGIST [employer]EL[employer] JESUS DIOR M.D. Performed By: #### B UN, LYTES, PP, CREAT, LIPID, CBC #### [address] Automated blood monocyte cou ntOrdered By: Tory Joseph on 07-23-2024 Monocytes (Bld) [#/Vol] 0.6 10*3/uL Normal 0.0-0.8 [facility] Comment on above: Performed By: #### B UN, LYTES, PP, CREAT, LIPID, CBC #### [address] Automated eosinophil %Ordere d By: Tory Joseph on 07-23-2024 Eosinophils/100 WBC (Bld) 3.6 % Normal . [facility] Comment on above: Performed By: #### B UN, LYTES, PP, CREAT, LIPID, CBC #### [address] Automated eosinophil countOr dered By: Tory Joseph on 07-23-2024 Eosinophils (Bld) [#/Vol] 0.2 10*3/uL Normal 0.0-0.45 [facility] Comment on above: Performed By: #### B UN, LYTES, PP, CREAT, LIPID, CBC #### [facility] [address] [place] [address] [place] Automated monocyte %Ordered By: Tory Joseph on 07-23-2024 Monocytes/100 WBC (Bld) 12.8 % Normal . [facility] Comment on above: Performed By: #### B UN, LYTES, PP, CREAT, LIPID, CBC #### [facility] [address] Automated neutrophil %Ordere d By: Tory Joseph on 07-23-2024 Neutrophils/100 WBC (Bld) 59.9 % Normal . [facility] Comment on above: Performed By: #### B UN, LYTES, PP, CREAT, LIPID, CBC #### [place] [address] [place] Carbon dioxide, total [Moles /volume] in Serum or PlasmaOrdered By: Tory Joseph on 07-23-2024 CO2 [Moles/Vol] 32.0 mmol/L High 21.0-31.[address] [facility] Comment on above: Performed By: #### B UN, LYTES, PP, CREAT, LIPID, CBC #### [facility] [address] [place] [address] [place] Chloride [Moles/volume] in S daniel or PlasmaOrdered By: Tory Joseph on 07-23-2024 Chloride [Moles/Vol] 107 mmol/L Normal 98-107 [facility] Comment on above: Performed By: #### B UN, LYTES, PP, CREAT, LIPID, CBC #### [facility] [address] [place] [address] [place] Cholesterol [Mass/volume] in Serum or PlasmaOrdered By: Tory Joseph on 07-23-2024 Cholesterol [Mass/Vol] 138 mg/dL Low 140-200 [facility] Comment on above: Chol less than 200 m g/dl low riskChol 201-239 mg/dl borderline riskChol 240 mg/dl and greater high risk Result Comment: Chol less than 200 mg/dl low risk Chol 201-239 mg/dl borderline risk Chol 240 mg/dl and greater high risk Performed By: #### B UN, LYTES, PP, CREAT, LIPID, CBC #### [address] Cholesterol in LDL Calc [Mas s/Vol]Ordered By: Tory Joseph on 07-23-2024 Cholesterol in LDL [Mass/Vol] 91 mg/dL 0-100 [facility] Comment on above: LDL ATP III CLASSIFI CATIONLDL less than 100 mg/dL OptimalLDL 100-129 mg/dL Near or above optimalLDL 130-159 mg/dL Borderline highLDL 160-189 mg/dL HighLDL greater than 189 mg/dL Very high Cholesterol in VLDL Calc [Ma ss/Vol]Ordered By: Tory Joseph on 07-23-2024 Cholesterol in VLDL [Mass/Vol] 15 mg/dL [facility] Coagulation Profileon 2023 aPTT Coag (Bld) [Time] 29.1 s Normal 25.1-36.5 [facility] Comment on above: Result Comment: A he matocrit value greater than 55% may lead to inaccurate results in coagulation testing. Patients having hematocrit values >55% require a special collection tube for coagulation studies. Please contact the laboratory at [phone] for redraw instructions. PERFORMED BY: [place] [address] PATHOLOGIST [employer]EL[employer] JESUS DIOR M.D. Performed By: #### B UN, LYTES, PP, CREAT, LIPID, CBC #### [address] Complete Blood Count Auto Di ffon 07-23-2024 Mean Corpuscular HGB Conc 33.4 g/dL Normal 32.5-35.6 [facility] Comment on above: Performed By: #### B UN, LYTES, PP, CREAT, LIPID, CBC #### [address] NRBC% 0.3 /100{WBC} Normal 0-0.5 [facility] Comment on above: Performed By: #### B UN, LYTES, PP, CREAT, LIPID, CBC #### [address] Creatinineon 07-23-2024 GFR/1.73 sq M.predicted MDRD (S/P/Bld) [Vol rate/Area] mL/min/{1.73_m2} Normal [facility] Comment on above: Performed By: #### B UN, LYTES, PP, CREAT, LIPID, CBC #### [address] Creatinine [Mass/volume] in Serum or PlasmaOrdered By: Tory Joseph on 07-23-2024 Creatinine [Mass/Vol] 0.66 mg/dL Low 0.70-1.[address] [facility] Comment on above: Performed By: #### B UN, LYTES, PP, CREAT, LIPID, CBC #### [address] Erythrocyte distribution wid th [Ratio] by Automated countOrdered By: Tory Joseph on 07-23-2024 Erythrocyte distribution width (RBC) [Ratio] 15.8 % High 12.0-14.8 [facility] Comment on above: Performed By: #### B UN, LYTES, PP, CREAT, LIPID, CBC #### [address] Erythrocytes [#/volume] in B lood by Automated countOrdered By: Tory Joseph on 07-23-2024 RBC (Bld) [#/Vol] 4.44 10*6/uL Normal 3.90-5.60 [facility] Comment on above: Performed By: #### B UN, LYTES, PP, CREAT, LIPID, CBC #### [address] Hematocrit [Volume Fraction] of Blood by Automated countOrdered By: Tory Joseph on 07-23-2024 Hematocrit (Bld) [Volume fraction] 42.0 % Normal 38.8-50.0 [facility] Comment on above: Performed By: #### B UN, LYTES, PP, CREAT, LIPID, CBC #### [facility] [address] Hemoglobin [Mass/volume] in BloodOrdered By: Tory Joseph on 07-23-2024 Hemoglobin (Bld) [Mass/Vol] 14.0 g/dL Normal 13.0-17.0 [facility] Comment on above: Performed By: #### B UN, LYTES, PP, CREAT, LIPID, CBC #### [facility] [address] [place] [address] INR in Platelet poor plasma by Coagulation assayOrdered By: Tory Joseph on 07-23-2024 INR Coag (PPP) [Relative time] 1.1 {INR} Normal [facility] Comment on above: INR Therapeutic Rang [...] UN, LYTES, PP, CREAT, LIPID, CBC #### [facility] [address] [place] [address] Leukocytes [#/volume] correc jignesh for nucleated erythrocytes in Blood by Automated counOrdered By: Tory Joseph on 07-23-2024 WBC corrected for nucl RBC Auto (Bld) [#/Vol] 4.5 10*3/uL 4.1-10.5 [facility] Leukocytes [#/volume] in Blo od by Automated countOrdered By: Tory Joseph on 07-23-2024 WBC (Bld) [#/Vol] 4.5 10*3/uL Normal 4.1-10.5 [facility] Comment on above: Performed By: #### B UN, LYTES, PP, CREAT, LIPID, CBC #### [facility] [address] Lipid Panelon 07-23-2024 LDL Cholesterol,Calculated 91 mg/dL Normal 0-100 [facility] Comment on above: Result Comment: LDL ATP III CLASSIFICATION LDL less than 100 mg/dL Optimal LDL 100-129 mg/dL Near or above optimal LDL 130-159 mg/dL Borderline high LDL 160-189 mg/dL High LDL greater than 189 mg/dL Very high Performed By: #### B UN, LYTES, PP, CREAT, LIPID, CBC #### [facility] [address] Triglyceride w/Reflex 76 mg/dL Normal 0-149 [facility] Comment on above: Result Comment: TRIG ATP III CLASSIFICATION TRIG less than 150 mg/dL Normal TRIG 150-199 mg/dL Borderline high TRIG 200-500 mg/dL High TRIG greater than 500 mg/dL Very high Standard traceable to the Center for Disease Conrtrol and Prevention (CDC) test method. Performed By: #### B UN, LYTES, PP, CREAT, LIPID, CBC #### [facility] [address] VLDL CHOLESTEROL 15 mg/dL Normal [facility] Comment on above: Performed By: #### B UN, LYTES, PP, CREAT, LIPID, CBC #### [facility] [address] [place] [address] [place] Lymphocytes [#/volume] in Bl ood by Automated countOrdered By: Tory Joseph on 07-23-2024 Lymphocytes (Bld) [#/Vol] 1.0 10*3/uL Normal 1.00-4.8 [facility] Comment on above: Performed By: #### B UN, LYTES, PP, CREAT, LIPID, CBC #### [facility] [address] [place] [address] [place] Lymphocytes/100 leukocytes i n Blood by Automated countOrdered By: Tory Joseph on 07-23-2024 Lymphocytes/100 WBC (Bld) 22.9 % Normal . [facility] Comment on above: Performed By: #### B UN, LYTES, PP, CREAT, LIPID, CBC #### [facility] [address] [place] [address] MCH [Entitic mass] by Automa jignesh countOrdered By: Tory Joseph on 07-23-2024 MCH (RBC) [Entitic mass] 31.5 pg Normal 27.5-35.2 [facility] Comment on above: Performed By: #### B UN, LYTES, PP, CREAT, LIPID, CBC #### [facility] [address] MCHC Auto (RBC) [Mass/Vol]Or dered By: Tory Joseph on 07-23-2024 MCHC (RBC) [Mass/Vol] 33.4 g/dL 32.5-35.[address] [facility] MCV [Entitic volume] by Auto mated countOrdered By: Tory Joseph on 07-23-2024 MCV (RBC) [Entitic vol] 94.6 fL Normal 83.5-101 [facility] Comment on above: Performed By: #### B UN, LYTES, PP, CREAT, LIPID, CBC #### [facility] [address] [place] [address] Neutrophils [#/volume] in Bl ood by Automated countOrdered By: Tory Joseph on 07-23-2024 Neutrophils (Bld) [#/Vol] 2.7 10*3/uL Normal 1.8-7.7 [facility] Comment on above: Performed By: #### B UN, LYTES, PP, CREAT, LIPID, CBC #### [facility] [address] [place] [address] No Panel InformationOrdered By: Tory Joseph on 07-23-2024 Estimated GFR (CKD-EPI) > 60.0 mL/Min [facility] Creatinine Clearance (Chem N/A [facility] Nucleated erythrocytes [Pres ence] in Blood by Automated countOrdered By: Tory Joseph on 07-23-2024 Nucleated RBC Auto Ql (Bld) 0.3 /100{WBC} 0-0.5 [facility] Platelet mean volume [Entiti c volume] in Blood by Automated countOrdered By: Tory Joseph on 07-23-2024 Platelet mean volume (Bld) [Entitic vol] 9.2 fL Normal 6.6-10.1 [facility] Comment on above: Performed By: #### B UN, LYTES, PP, CREAT, LIPID, CBC #### [facility] [address] Platelets [#/volume] in Bloo d by Automated countOrdered By: Tory Joseph on 07-23-2024 Platelets (Bld) [#/Vol] 164 10*3/uL Normal 150-450 [facility] Comment on above: Performed By: #### B UN, LYTES, PP, CREAT, LIPID, CBC #### [address] Potassium [Moles/volume] in Serum or PlasmaOrdered By: Tory Joseph on 07-23-2024 Potassium [Moles/Vol] 4.4 mmol/L Normal 3.5-5.[address] [facility] Comment on above: Performed By: #### B UN, LYTES, PP, CREAT, LIPID, CBC #### [address] Prothrombin time (PT)Ordered By: Tory Joseph on 07-23-2024 PT Coag (PPP) [Time] 12.3 s Normal 9.0-12.9 [facility] Comment on above: A hematocrit value g reater than 55% may lead to inaccurate results in coagulation testing. Patients having hematocrit values >55% require a special collection tube for coagulation studies. Please contact the laboratory at [phone] for redraw instructions. Result Comment: A he matocrit value greater than 55% may lead to inaccurate results in coagulation testing. Patients having hematocrit values >55% require a special collection tube for coagulation studies. Please contact the laboratory at [phone] for redraw instructions. Performed By: #### B UN, LYTES, PP, CREAT, LIPID, CBC #### [address] Serum or plasma anion gap de terminationOrdered By: Tory Joseph on 07-23-2024 Anion gap [Moles/Vol] 8.4 mmol/L Normal 6.0-15.[address] [facility] Comment on above: Performed By: #### B UN, LYTES, PP, CREAT, LIPID, CBC #### [facility] [address] Serum or plasma high density lipoprotein (HDL) cholesterol measurementOrdered By: Tory Joseph on 07-23-2024 Cholesterol in HDL [Mass/Vol] 32 mg/dL Normal 23-92 [facility] Comment on above: HDL CHOL ATP-III CLA SSIFICATION Cardiovascular RiskHDL > or equal to 60 mg/dL LOWHDL < 40 mg/dL HIGH Result Comment: HDL CHOL ATP-III CLASSIFICATION Cardiovascular Risk HDL > or equal to 60 mg/dL LOW HDL < 40 mg/dL HIGH Performed By: #### B UN, LYTES, PP, CREAT, LIPID, CBC #### [facility] [address] Serum or plasma total choles terol/high density lipoprotein (HDL) cholesterol mass ratOrdered By: Tory Joseph on 07-23-2024 Cholesterol.total/Chol esterol in HDL [Mass ratio] 4.3 {ratio} Normal <5.0 [facility] Comment on above: Result Comment: PERF ORMED BY: [place] [address] PATHOLOGIST [employer]ELOPER JESUS DIOR M.D. Performed By: #### B UN, LYTES, PP, CREAT, LIPID, CBC #### [facility] [address] [place] [address] [place] Sodium [Moles/volume] in Ser um or PlasmaOrdered By: Tory Joseph on 07-23-2024 Sodium [Moles/Vol] 143 mmol/L Normal 136-145 [facility] Comment on above: Performed By: #### B UN, LYTES, PP, CREAT, LIPID, CBC #### [facility] [address] Triglyceride [Mass/volume] i n Serum or PlasmaOrdered By: Tory Joseph on 07-23-2024 Triglyceride [Mass/Vol] 76 mg/dL 0-149 [facility] Comment on above: TRIG ATP III CLASSIF ICATIONTRIG less than 150 mg/dL NormalTRIG 150-199 mg/dL Borderline highTRIG 200-500 mg/dL High TRIG greater than 500 mg/dL Very highStandard traceable to the Center for Disease Conrtrol and Prevention (CDC) test method. Urea nitrogen [Mass/volume] in Serum or PlasmaOrdered By: Tory Joseph on 07-23-2024 Urea nitrogen [Mass/Vol] 13 mg/dL Normal 7-25 [facility] Comment on above: Performed By: #### B UN, LYTES, PP, CREAT, LIPID, CBC #### [facility] [address] ECG 12 Leadon 07-22-2024 Sinus rhythm, right bundle branch block, left anterior fascicular block, abnormal ECG [facility] Work Phone: [facility] Work Phone: Laboratory - Coagulationon 1 aPTT Coag (Bld) [Time] 61.0 s 48.2-68.6 [facility] No Panel Informationon 07-15 Troponin I High Sensitivity 23.4 pg/mL 4.0-76.1 [facility] Comment on above: CUT-OFF POINTS HAVE [...] aPTT Coag (PPP) [Time] 27.9 s 22.3-36.2 [facility] Basophils Auto (Bld) [#/Vol] on 07-14-2024 Basophils (Bld) [#/Vol] 0.0 10 3/uL 0.0-0.1 [facility] Basophils/100 WBC Auto (Bld) on 07-14-2024 Basophils/100 WBC (Bld) 0.7 % 0.2-2.0 [facility] Eosinophils/100 WBC Auto (Bl d)on 07-14-2024 Eosinophils/100 WBC (Bld) 3.1 % 0.9-7.0 [facility] Erythrocyte distribution wid th Auto (RBC) [Ratio]on 07-14-2024 Erythrocyte distribution width (RBC) [Ratio] 16.3 % High 11.0-15.0 [facility] Estimated glomerular filtrat ion rate (GFR) non- Americanon 07-14-2024 GFR/1.73 sq M.predicted among non-blacks MDRD (S/P/Bld) [Vol rate/Area] mL/min/{1.73_m2} >=60 [facility] Globulin Calc (S) [Mass/Vol] on 07-14-2024 Globulin (S) [Mass/Vol] 3.5 g/dL [facility] Hematocrit Auto (Bld) [Volum e fraction]on 07-14-2024 Hematocrit (Bld) [Volume fraction] 40.0 % Low 42.0-54.0 [facility] Hemoglobin [Mass/volume] in Bloodon 07-14-2024 Hemoglobin (Bld) [Mass/Vol] 13.6 g/dL Low 14.0-18.0 [facility] INR in Platelet poor plasma by Coagulation assayon 07-14-2024 INR Coag (PPP) [Relative time] 1.03 {INR} [facility] Comment on above: DESIRED INR:2.0-3.0 CONDITIONS NOT LISTED BELOW2.5-3.5 FOR PROSTHETIC HEART VALVE REPLACEMENT2.5-3.5 RECURRENT THROMBOSIS Laboratory - Chemistry and C hemistry - challengeon 07-14-2024 CK [Catalytic activity/Vol] 59 U/L 39-308 [facility] CK.MB [Mass/Vol] 0.80 ng/mL <=3.[address] [facility] Albumin [Mass/Vol] 3.6 g/dL 3.4-5.0 [facility] ALP [Catalytic activity/Vol] 110 U/L 46-116 [facility] ALT [Catalytic activity/Vol] 22 U/L 16-63 [facility] AST [Catalytic activity/Vol] 15 U/L 15-37 [facility] Bilirubin [Mass/Vol] 0.4 mg/dL 0.2-1.0 [facility] Calcium [Mass/Vol] 9.7 mg/dL 8.5-10.1 [facility] Chloride [Moles/Vol] 105 mmol/L 98-107 [facility] CO2 [Moles/Vol] 32.0 mmol/L 21.0-32.[address] [facility] Creatinine [Mass/Vol] 0.94 mg/dL 0.70-1.[address] [facility] GFR/1.73 sq M.predicted MDRD (S/P/Bld) [Vol rate/Area] mL/min/{1.73_m2} >=60 [facility] Glucose [Mass/Vol] 110 mg/dL High 74-106 [facility] Lipase [Catalytic activity/Vol] 36.0 U/L 16.0-77.0 [facility] Natriuretic peptide B (Bld) [Mass/Vol] 127.0 pg/mL <=1800.0 [facility] Potassium [Moles/Vol] 3.3 mmol/L Low 3.5-5.[address] [facility] Protein [Mass/Vol] 7.1 g/dL 6.4-8.2 [facility] Sodium [Moles/Vol] 141 mmol/L 136-145 [facility] Urea nitrogen [Mass/Vol] 14.0 mg/dL 7.0-18.0 [facility] Urea nitrogen/Creatinine [Mass ratio] 14.9 mg/mg [facility] Laboratory - Hematology and Cell countson 07-14-2024 Immature granulocytes/100 WBC (Bld) 0.2 % 0.0-0.5 [facility] Leukocytes [#/volume] correc jignesh for nucleated erythrocytes in Blood by Automated counon 07-14-2024 WBC corrected for nucl RBC Auto (Bld) [#/Vol] 6.1 10 3/uL 4.0-11.0 [facility] Lymphocytes Auto (Bld) [#/Vo l]on 07-14-2024 Lymphocytes (Bld) [#/Vol] 1.3 10 3/uL 1.2-3.8 [facility] Lymphocytes/100 WBC Auto (Bl d)on 07-14-2024 Lymphocytes/100 WBC (Bld) 21.9 % 20.5-60.0 [facility] MCH Auto (RBC) [Entitic mass ]on 07-14-2024 MCH (RBC) [Entitic mass] 31.7 pg 25.9-34.0 [facility] MCHC Auto (RBC) [Mass/Vol]on 07-14-2024 MCHC (RBC) [Mass/Vol] 34.0 g/dL 29.9-35.[address] [facility] MCV Auto (RBC) [Entitic vol] on 07-14-2024 MCV (RBC) [Entitic vol] 93.2 fL 80.0-94.0 [facility] Monocytes Auto (Bld) [#/Vol] on 07-14-2024 Monocytes (Bld) [#/Vol] 0.7 10 3/uL 0.3-0.8 [facility] Monocytes/100 WBC Auto (Bld) on 07-14-2024 Monocytes/100 WBC (Bld) 11.2 % 1.7-12.0 [facility] Neutrophils Auto (Bld) [#/Vo l]on 07-14-2024 Neutrophils (Bld) [#/Vol] 3.8 10 3/uL 1.4-6.5 [facility] Neutrophils/100 WBC Auto (Bl d)on 07-14-2024 Neutrophils/100 WBC (Bld) 62.9 % 43.0-75.0 [facility] No Panel Informationon 07-14 Troponin I High Sensitivity 20.5 pg/mL 4.0-76.1 [facility] Comment on above: CUT-OFF POINTS HAVE [...] Eosinophils # (Auto) 0.2 10 3/uL 0.0-0.[address] [facility] Immature Granulocyte # (Auto) 0.01 10 3/uL 0.00-0.03 [facility] Platelet mean volume Auto (B ld) [Entitic vol]on 07-14-2024 Platelet mean volume (Bld) [Entitic vol] 10.8 fL 9.5-13.5 [facility] Platelets Auto (Bld) [#/Vol] on 07-14-2024 Platelets (Bld) [#/Vol] 167 10 3/uL 150-450 [facility] Prothrombin time (PT)on 06-17 PT Coag (PPP) [Time] 10.9 s 9.0-11.6 [facility] RBC Auto (Bld) [#/Vol]on RBC (Bld) [#/Vol] 4.29 10 6/uL Low 4.70-6.10 [facility] [facility] Serum or plasma albumin/glob ulin mass ratioon 07-14-2024 Albumin/Globulin [Mass ratio] 1.0 {ratio} [facility] Serum or plasma anion gap de terminationon 07-14-2024 Anion gap [Moles/Vol] 7.3 mmol/L [facility] Basophils Auto (Bld) [#/Vol] on 06-28-2024 Basophils (Bld) [#/Vol] 0.0 10 3/uL 0.0-0.1 [facility] Basophils/100 WBC Auto (Bld) on 06-28-2024 Basophils/100 WBC (Bld) 0.4 % 0.2-2.0 [facility] Eosinophils/100 WBC Auto (Bl d)on 06-28-2024 Eosinophils/100 WBC (Bld) 1.8 % 0.9-7.0 [facility] Erythrocyte distribution wid th Auto (RBC) [Ratio]on 06-28-2024 Erythrocyte distribution width (RBC) [Ratio] 16.0 % High 11.0-15.0 [facility] Estimated glomerular filtrat ion rate (GFR) non- Americanon 06-28-2024 GFR/1.73 sq M.predicted among non-blacks MDRD (S/P/Bld) [Vol rate/Area] mL/min/{1.73_m2} >=60 [facility] Globulin Calc (S) [Mass/Vol] on 06-28-2024 Globulin (S) [Mass/Vol] 3.1 g/dL [facility] Hematocrit Auto (Bld) [Volum e fraction]on 06-28-2024 Hematocrit (Bld) [Volume fraction] 42.0 % 42.0-54.0 [facility] Hemoglobin [Mass/volume] in Bloodon 06-28-2024 Hemoglobin (Bld) [Mass/Vol] 14.2 g/dL 14.0-18.0 [facility] Laboratory - Chemistry and C hemistry - challengeon 06-28-2024 Albumin [Mass/Vol] 3.4 g/dL 3.4-5.0 [facility] ALP [Catalytic activity/Vol] 107 U/L 46-116 [facility] ALT [Catalytic activity/Vol] 25 U/L 16-63 [facility] AST [Catalytic activity/Vol] 18 U/L 15-37 [facility] Bilirubin [Mass/Vol] 1.0 mg/dL 0.2-1.0 [facility] Calcium [Mass/Vol] 9.3 mg/dL 8.5-10.1 [facility] Chloride [Moles/Vol] 107 mmol/L 98-107 [facility] CO2 [Moles/Vol] 30.9 mmol/L 21.0-32.[address] [facility] Creatinine [Mass/Vol] 0.67 mg/dL Low 0.70-1.[address] [facility] GFR/1.73 sq M.predicted MDRD (S/P/Bld) [Vol rate/Area] mL/min/{1.73_m2} >=60 [facility] Glucose [Mass/Vol] 99 mg/dL 74-106 [facility] Potassium [Moles/Vol] 3.7 mmol/L 3.5-5.[address] [facility] Protein [Mass/Vol] 6.5 g/dL 6.4-8.2 [facility] Sodium [Moles/Vol] 144 mmol/L 136-145 [facility] Urea nitrogen [Mass/Vol] 14.0 mg/dL 7.0-18.0 [facility] Urea nitrogen/Creatinine [Mass ratio] 20.9 mg/mg [facility] Laboratory - Hematology and Cell countson 06-28-2024 Immature granulocytes/100 WBC (Bld) 0.4 % 0.0-0.5 [facility] Leukocytes [#/volume] correc jignesh for nucleated erythrocytes in Blood by Automated counon 06-28-2024 WBC corrected for nucl RBC Auto (Bld) [#/Vol] 5.0 10 3/uL 4.0-11.0 [facility] Lymphocytes Auto (Bld) [#/Vo l]on 06-28-2024 Lymphocytes (Bld) [#/Vol] 1.0 10 3/uL Low 1.2-3.8 [facility] Lymphocytes/100 WBC Auto (Bl d)on 06-28-2024 Lymphocytes/100 WBC (Bld) 19.6 % Low 20.5-60.0 [facility] MCH Auto (RBC) [Entitic mass ]on 06-28-2024 MCH (RBC) [Entitic mass] 31.3 pg 25.9-34.0 [facility] MCHC Auto (RBC) [Mass/Vol]on 06-28-2024 MCHC (RBC) [Mass/Vol] 33.8 g/dL 29.9-35.[address] [facility] MCV Auto (RBC) [Entitic vol] on 06-28-2024 MCV (RBC) [Entitic vol] 92.7 fL 80.0-94.0 [facility] Monocytes Auto (Bld) [#/Vol] on 06-28-2024 Monocytes (Bld) [#/Vol] 0.5 10 3/uL 0.3-0.8 [facility] Monocytes/100 WBC Auto (Bld) on 06-28-2024 Monocytes/100 WBC (Bld) 10.4 % 1.7-12.0 [facility] Neutrophils Auto (Bld) [#/Vo l]on 06-28-2024 Neutrophils (Bld) [#/Vol] 3.4 10 3/uL 1.4-6.5 [facility] Neutrophils/100 WBC Auto (Bl d)on 06-28-2024 Neutrophils/100 WBC (Bld) 67.4 % 43.0-75.0 [facility] No Panel Informationon 06-28 Eosinophils # (Auto) 0.1 10 3/uL 0.0-0.[address] [facility] Immature Granulocyte # (Auto) 0.02 10 3/uL 0.00-0.03 [facility] Troponin I High Sensitivity 13.4 pg/mL 4.0-76.1 [facility] Comment on above: CUT-OFF POINTS HAVE [...] volume (Bld) [Entitic vol] 10.3 fL 9.5-13.5 [facility] Platelets Auto (Bld) [#/Vol] on 06-28-2024 Platelets (Bld) [#/Vol] 161 10 3/uL 150-450 [facility] RBC Auto (Bld) [#/Vol]on RBC (Bld) [#/Vol] 4.53 10 6/uL Low 4.70-6.10 [facility] Serum or plasma albumin/glob ulin mass ratioon 06-28-2024 Albumin/Globulin [Mass ratio] 1.1 {ratio} [facility] Serum or plasma anion gap de terminationon 06-28-2024 Anion gap [Moles/Vol] 9.8 mmol/L [facility] Basophils Auto (Bld) [#/Vol] on 06-27-2024 Basophils (Bld) [#/Vol] 0.0 10 3/uL 0.0-0.1 [facility] Basophils/100 WBC Auto (Bld) on 06-27-2024 Basophils/100 WBC (Bld) 0.8 % 0.2-2.0 [facility] Cholesterol in LDL Calc [Mas s/Vol]on 06-27-2024 Cholesterol in LDL [Mass/Vol] 82.6 mg/dL [facility] Comment on above: <100 mg/dl [id number] 0-129 mg/dl NEAR OR ABOVE [id number] mg/dl BORDERLINE [id number] mg/dl HIGH>190 mg/dl VERY HIGH Cholesterol in VLDL Calc [Ma ss/Vol]on 06-27-2024 Cholesterol in VLDL [Mass/Vol] 15.4 mg/dL [facility] Eosinophils/100 WBC Auto (Bl d)on 06-27-2024 Eosinophils/100 WBC (Bld) 2.7 % 0.9-7.0 [facility] Erythrocyte distribution wid th Auto (RBC) [Ratio]on 06-27-2024 Erythrocyte distribution width (RBC) [Ratio] 16.2 % High 11.0-15.0 [facility] Estimated glomerular filtrat ion rate (GFR) non- Americanon 06-27-2024 GFR/1.73 sq M.predicted among non-blacks MDRD (S/P/Bld) [Vol rate/Area] mL/min/{1.73_m2} >=60 [facility] Globulin Calc (S) [Mass/Vol] on 06-27-2024 Globulin (S) [Mass/Vol] 3.4 g/dL [facility] Glucose mean value [Mass/vol ume] in Blood Estimated from glycated hemoglobinon 06-27-2024 Average glucose Estimated from glycated hemoglobin (Bld) [Mass/Vol] 114 mg/dL [facility] Hematocrit Auto (Bld) [Volum e fraction]on 06-27-2024 Hematocrit (Bld) [Volume fraction] 40.7 % Low 42.0-54.0 [facility] Hemoglobin [Mass/volume] in Bloodon 06-27-2024 Hemoglobin (Bld) [Mass/Vol] 13.9 g/dL Low 14.0-18.0 [facility] Laboratory - Chemistry and C hemistry - challengeon 06-27-2024 Albumin [Mass/Vol] 3.6 g/dL 3.4-5.0 [facility] ALP [Catalytic activity/Vol] 101 U/L 46-116 [facility] ALT [Catalytic activity/Vol] 25 U/L 16-63 [facility] AST [Catalytic activity/Vol] 16 U/L 15-37 [facility] Bilirubin [Mass/Vol] 0.8 mg/dL 0.2-1.0 [facility] Calcium [Mass/Vol] 9.5 mg/dL 8.5-10.1 [facility] Chloride [Moles/Vol] 105 mmol/L 98-107 [facility] Cholesterol [Mass/Vol] 139 mg/dL <=200 [facility] Cholesterol in HDL [Mass/Vol] 41 mg/dL 40-60 [facility] Comment on above: > or =60 mg/dl - LOW CARDIOVASCULAR RISK<40 mg/dl - HIGH CARDIOVASCULAR RISK CO2 [Moles/Vol] 31.8 mmol/L 21.0-32.[address] [facility] Creatinine [Mass/Vol] 0.65 mg/dL Low 0.70-1.[address] [facility] GFR/1.73 sq M.predicted MDRD (S/P/Bld) [Vol rate/Area] mL/min/{1.73_m2} >=60 [facility] Glucose [Mass/Vol] 107 mg/dL High 74-106 [facility] Potassium [Moles/Vol] 3.6 mmol/L 3.5-5.[address] [facility] Protein [Mass/Vol] 7.0 g/dL 6.4-8.2 [facility] Sodium [Moles/Vol] 141 mmol/L 136-145 [facility] Triglyceride [Mass/Vol] 77 mg/dL <=150 [facility] Urea nitrogen [Mass/Vol] 16.0 mg/dL 7.0-18.0 [facility] Urea nitrogen/Creatinine [Mass ratio] 24.6 mg/mg [facility] Laboratory - Hematology and Cell countson 06-27-2024 HbA1c (Bld) [Mass fraction] 5.6 % 4.5-6.2 [facility] Comment on above: ADA RECOMMENDED LIMI T 4.0 - 6.0ADA THERAPEUTIC TARGET < 7.0ACTION SUGGESTED> 7.0 Immature granulocytes/100 WBC (Bld) 0.2 % 0.0-0.5 [facility] Leukocytes [#/volume] correc jignesh for nucleated erythrocytes in Blood by Automated counon 06-27-2024 WBC corrected for nucl RBC Auto (Bld) [#/Vol] 4.7 10 3/uL 4.0-11.0 [facility] Lymphocytes Auto (Bld) [#/Vo l]on 06-27-2024 Lymphocytes (Bld) [#/Vol] 1.0 10 3/uL Low 1.2-3.8 [facility] Lymphocytes/100 WBC Auto (Bl d)on 06-27-2024 Lymphocytes/100 WBC (Bld) 21.7 % 20.5-60.0 [facility] MCH Auto (RBC) [Entitic mass ]on 06-27-2024 MCH (RBC) [Entitic mass] 31.9 pg 25.9-34.0 [facility] MCHC Auto (RBC) [Mass/Vol]on 06-27-2024 MCHC (RBC) [Mass/Vol] 34.2 g/dL 29.9-35.[address] [facility] MCV Auto (RBC) [Entitic vol] on 06-27-2024 MCV (RBC) [Entitic vol] 93.3 fL 80.0-94.0 [facility] Monocytes Auto (Bld) [#/Vol] on 06-27-2024 Monocytes (Bld) [#/Vol] 0.6 10 3/uL 0.3-0.8 [facility] Monocytes/100 WBC Auto (Bld) on 06-27-2024 Monocytes/100 WBC (Bld) 13.1 % High 1.7-12.0 [facility] Neutrophils Auto (Bld) [#/Vo l]on 06-27-2024 Neutrophils (Bld) [#/Vol] 2.9 10 3/uL 1.4-6.5 [facility] Neutrophils/100 WBC Auto (Bl d)on 06-27-2024 Neutrophils/100 WBC (Bld) 61.5 % 43.0-75.0 [facility] No Panel Informationon 06-27 Troponin I High Sensitivity 14.3 pg/mL 4.0-76.1 [facility] Comment on above: CUT-OFF POINTS HAVE [...] Eosinophils # (Auto) 0.1 10 3/uL 0.0-0.[address] [facility] Immature Granulocyte # (Auto) 0.01 10 3/uL 0.00-0.03 [facility] Platelet mean volume Auto (B ld) [Entitic vol]on 06-27-2024 Platelet mean volume (Bld) [Entitic vol] 10.5 fL 9.5-13.5 [facility] Platelets Auto (Bld) [#/Vol] on 06-27-2024 Platelets (Bld) [#/Vol] 163 10 3/uL 150-450 [facility] RBC Auto (Bld) [#/Vol]on RBC (Bld) [#/Vol] 4.36 10 6/uL Low 4.70-6.10 [facility] Serum or plasma albumin/glob ulin mass ratioon 06-27-2024 Albumin/Globulin [Mass ratio] 1.1 {ratio} [facility] Serum or plasma anion gap de terminationon 06-27-2024 Anion gap [Moles/Vol] 7.8 mmol/L [facility] Serum or plasma total choles terol/high density lipoprotein (HDL) cholesterol mass kelsey 06-27-2024 Cholesterol.total/Chol esterol in HDL [Mass ratio] 3.4 {ratio} [facility] Comment on above: 3.3 - 4.4 [...] lymphadenectomy done 06/20/[address] Freedman - [id number] ([place] 4+3) +EPE,+margin. Underwent salvage radiation for rising [...] stone Ma (more content not included)... Normal [facility] Comment on above: Result Comment: Elec tronically Signed By: Radha Whitten MD\.br\Date and Time Signed: 06/04/24 10:14 EDT\.br\Electronically Co-Signed By: Belkys Figueroa\.br\Date and Time Co-Signed: 06/04/24 09:23 EDT Finn 05-20-2024 CNOV Office Visit ([facility] ) -- YONI RAMIREZ ([id number]) 1945 M Date Time Provider Department 05/20/24 [...] day. lisinop (more content not included)... Normal [facility] No Panel Informationon 05-13 Prostate Specific Antigen <0.02 ng/mL <2.60 [facility] Comment on above: Total PSA test metho dology used is the Electrochemiluminescence Immunoassay by [employer]. Total PSA values by differing methodologies cannot be interchanged. PSA SerPl-mCncon 05-13-2024 Prostate specific Ag [Mass/Vol] ng/mL Normal <2.60 [facility] Comment on above: Order Comment: Speci men Type: BLOOD SPECIMEN Ordering Facility: [facility] Address: [address] [place] [address] Result Comment: Tota l PSA test methodology used is the Electrochemiluminescence Immunoassay by [employer]. Total PSA values by differing methodologies cannot be interchanged. Performed By: #### 2 857-1 #### [facility] CLIA [id number] [address] [place] [address] [place] CNOVon 04-01-2024 CNOV Office Visit ([facility] ) -- YONI RAMIREZ ([id number]) 1945 M Date Time Provider Department 04/01/24 10:00 AM DONATO BISHOP [facility] During your visit today, we recorded the following information about you: Temperature Pulse Blood pressure 97 degrees 58/minute 162/67 Donato Bishop MD 04/07/2024 4:41 PM Signed [facility] - Follow Up Visit Assessment/Plan: [...] Bishop MD 04/01/24, 10:35 AM General Surgery [facility] Medical Decision Making: Problems: Low: Stable chronic [...] No Drains: No Referring Provider: BRO CHAVEZ [[id number]] Allergies As of Date: 04/01/2024 (No Known [...] for pain. (more content not included)... Normal [facility] CT ABD/PEL WO IVCONon 2023 CT ABD/PEL WO IVCON * * *Final Report* * * DATE OF EXAM: Apr 01 2024 1:54PM [facility] 0531 - CT ABD/PEL WO IVCON / [...] or recurrent hernia. 2. Bilateral nonobstructive nephrolithiasis. [employer]: [facility] Transcribe Date/Time: Apr 02 2024 9:22A Dictated by : LANCE CUNHA MD This examination was interpreted and the report reviewed and electronically signed by: LANCE CUNHA MD on Apr 02 2024 9:31AM EST [id number] Normal [facility] Basophils Auto (Bld) [#/Vol] on 01-30-2024 Basophils (Bld) [#/Vol] 0.0 10 3/uL 0.0-0.1 [facility] Basophils/100 WBC Auto (Bld) on 01-30-2024 Basophils/100 WBC (Bld) 0.8 % 0.2-2.0 [facility] Eosinophils/100 WBC Auto (Bl d)on 01-30-2024 Eosinophils/100 WBC (Bld) 3.2 % 0.9-7.0 [facility] Erythrocyte distribution wid th Auto (RBC) [Ratio]on 01-30-2024 Erythrocyte distribution width (RBC) [Ratio] 16.1 % High 11.0-15.0 [facility] Hematocrit Auto (Bld) [Volum e fraction]on 01-30-2024 Hematocrit (Bld) [Volume fraction] 40.0 % Low 42.0-54.0 [facility] Hemoglobin [Mass/volume] in Bloodon 01-30-2024 Hemoglobin (Bld) [Mass/Vol] 13.0 g/dL Low 14.0-18.0 [facility] Laboratory - Chemistry and C hemistry - challengeon 01-30-2024 Ferritin [Mass/Vol] 71.0 ng/mL 26.0-388.0 [facility] Laboratory - Hematology and Cell countson 01-30-2024 Immature granulocytes/100 WBC (Bld) 0.2 % 0.0-0.5 [facility] Leukocytes [#/volume] correc jignesh for nucleated erythrocytes in Blood by Automated counon 01-30-2024 WBC corrected for nucl RBC Auto (Bld) [#/Vol] 4.9 10 3/uL 4.0-11.0 [facility] Lymphocytes Auto (Bld) [#/Vo l]on 01-30-2024 Lymphocytes (Bld) [#/Vol] 1.1 10 3/uL Low 1.2-3.8 [facility] Lymphocytes/100 WBC Auto (Bl d)on 01-30-2024 Lymphocytes/100 WBC (Bld) 21.7 % 20.5-60.0 [facility] MCH Auto (RBC) [Entitic mass ]on 01-30-2024 MCH (RBC) [Entitic mass] 30.2 pg 25.9-34.0 [facility] MCHC Auto (RBC) [Mass/Vol]on 01-30-2024 MCHC (RBC) [Mass/Vol] 32.5 g/dL 29.9-35.[address] [facility] MCV Auto (RBC) [Entitic vol] on 01-30-2024 MCV (RBC) [Entitic vol] 92.8 fL 80.0-94.0 [facility] Monocytes Auto (Bld) [#/Vol] on 01-30-2024 Monocytes (Bld) [#/Vol] 0.6 10 3/uL 0.3-0.8 [facility] Monocytes/100 WBC Auto (Bld) on 01-30-2024 Monocytes/100 WBC (Bld) 11.9 % 1.7-12.0 [facility] Neutrophils Auto (Bld) [#/Vo l]on 01-30-2024 Neutrophils (Bld) [#/Vol] 3.1 10 3/uL 1.4-6.5 [facility] Neutrophils/100 WBC Auto (Bl d)on 04-17-2024 Neutrophils/100 WBC (Bld) 62.2 % 43.0-75.0 [facility] No Panel Informationon 01-29 Eosinophils # (Auto) 0.2 10 3/uL 0.0-0.[address] [facility] Immature Granulocyte # (Auto) 0.01 10 3/uL 0.00-0.03 [facility] Platelet mean volume Auto (B ld) [Entitic vol]on 01-30-2024 Platelet mean volume (Bld) [Entitic vol] 11.0 fL 9.5-13.5 [facility] Platelets Auto (Bld) [#/Vol] on 01-30-2024 Platelets (Bld) [#/Vol] 190 10 3/uL 150-450 [facility] RBC Auto (Bld) [#/Vol]on RBC (Bld) [#/Vol] 4.31 10 6/uL Low 4.70-6.10 [facility] Consultation Noteon 11-30-19 Consultation Note [id number]#1.00TIFF Normal [facility] Lab Reportson 11-28-2023 Lab Reports [id number]#1.00TIFF Normal [facility] Patient Educationon 11-28-19 Patient Education Obstetrics and [...] provider. Document Revised: 02/09/2022 Document Reviewed: 02/09/2022 [employer] Patient Education ? 2022 [employer]. Normal [facility] Screenson 11-28-2023 Screens [id number]#1.00TIFF Normal [facility] Screens [id number]#1.00TIFF [facility] Urology Office/Clinic Noteon 11-28-2023 Urology Office/Clinic [...] lymphadenectomy done 06/20/[address] Freedman - [id number] ([place] 4+3) +EPE,+margin. Underwent salvage radiation for rising [...] scarring from prior hernia repair. Referred to [facility] General Surgery for hernia- S/P Excision [...] with genera (more content not included)... Normal [facility] Comment on above: Result Comment: Elec tronically Signed By: Radha Whitten MD\.br\Date and Time Signed: 11/28/23 17:42 EST\.br\Electronically Co-Signed By: Laura Horn\.br\Date and Time Co-Signed: 11/28/23 11:07 EST CNOVon 11-20-2023 CNOV Office Visit ([facility] ) -- YONI RAMIREZ ([id number]) 1945 M Date Time Provider Department 11/20/23 1:30 PM Aaliyah HERNANDEZ During your visit today, we recorded the following information about you: Temperature Pulse Respiration Blood pressure 97.3 degrees 59/minute 16/minute 145/76 Weight 103.9 kg Aaliyah Hernandez MD 11/28/2023 3:34 PM Signed Radiation Oncology - Follow Up Note PATIENT NAME: Yoni Ramirez PATIENT DIAGNOSIS: Prostate adenocarcinoma, initial PSA 7.4, biopsy [place] score 4 + 3 = 7 (grade [...] daily. atorva (more content not included)... Normal [facility] PSA SerPl-mCncon 11-13-2023 Prostate specific Ag [Mass/Vol] ng/mL Normal <2.60 [facility] Comment on above: Order Comment: Speci men Type: BLOOD SPECIMEN Ordering Facility: [facility] Address: [address] [place] [address] Result Comment: Charito sanchez PSA test methodology used is the Electrochemiluminescence Immunoassay by [employer]. Total PSA values by differing methodologies cannot be interchanged. Performed By: #### 2 857-1 #### [facility] CLIA [id number] [address] [place] [address] [place] Ambulatory Visit Summaryon 1 10-15-2022 Ambulatory Visit Summary YONI RAMIREZ :1945 Visit Date:08/15/2023 Ambulatory Visit Instructions Your Diagnosis Mixed incontinence Personal history of prostate cancer Hernia, inguinal Inguinal mass Varicocele present on ultrasound of scrotum Tests Performed Urnls Dip Stick Auto w/o Microscopy POC 23910 Your Care Team Attending Physician - Fish [...] Mouth Every day Refills: 11 Pickup at [facility] [phone] Unchanged allopurinol (allopurinol 300 mg Tab) 1 [...] physician if questions or concerns Pharmacy Information [facility] [id number]: [address] [place], [place] [id number] [phone] Test Results Urnls Dip Stick Auto w/o Microscopy POC 56459 (08/15/2023) Bilirubin Urine Dipstick - Negative Blood Urine Dipstick - Negative Glucose Urine Dipstick - Negative Ketones Urine Dipstick - Negative Leukocytes Urine Dipstick - Negative Nitrite Urine Dipstick - Negative Protein Urine Dipstick - Negative Specific [place] Urine Dipstick - 1.025 Urine Appearance Urine [...] while sitting, (more content not included)... Normal [facility] Patient Educationon 08-15-20 Patient Education Obstetrics and [...] provider. Document Revised: 02/09/2022 Document Reviewed: 02/09/2022 [employer] Patient Education ? 2022 [employer]. [facility] Screenson 08-15-2023 Screens [id number]#1.00TIFF [facility] Screens [id number]#1.00TIFF [facility] Urology Office/Clinic Noteon 08-15-2023 Urology Office/Clinic [...] lymphadenectomy done 06/20/[address] Freedman - [id number] ([place] 4+3) +EPE,+margin. Underwent salvage ra (more content not included)... Normal [facility] Comment on above: Result Comment: Elec tronically Signed By: Fish WHARTON, Radha Tejada\.br\Date and Time Signed: 08/15/23 21:17 EDT\.br\Electronically Co-Signed By: Savanna Rosenthal.br\Date and Time Co-Signed: 08/15/23 09:35 EDT Basic metabolic 2000 panelon 02-28-2023 Anion gap [Moles/Vol] 12 mmol/L Normal 9-18 [facility] Comment on above: Order Comment: Speci men Type: BLOOD SPECIMEN Ordering Facility: [facility] Address: [address] [place], [place] [address] [address] Performed By: #### 2 4320-2, #### [facility] CLIA [id number] [place] [address] [place] Calcium [Mass/Vol] 8.7 mg/dL Normal 8.5-10.2 [facility] Comment on above: Order Comment: Speci men Type: BLOOD SPECIMEN Ordering Facility: [facility] Address: [address] Performed By: #### 2 4320-2, #### [facility] CLIA [id number] [address] [place] [address] [place] Chloride [Moles/Vol] 103 mmol/L Normal 97-105 [facility] Comment on above: Order Comment: Speci men Type: BLOOD SPECIMEN Ordering Facility: [facility] Address: [address] [facility] [address] Performed By: #### 2 4320-11, #### [facility] CLIA [id number] [address] [place] [address] [place] CO2 [Moles/Vol] 24 mmol/L Normal 22-30 [facility] Comment on above: Order Comment: Speci men Type: BLOOD SPECIMEN Ordering Facility: [facility] Address: [address] [place] [address] Performed By: #### 2 4320-11, #### [facility] CLIA [id number] [address] [place] [address] [place] Creatinine [Mass/Vol] 0.49 mg/dL Low 0.73-1.22 [facility] Comment on above: Order Comment: Speci men Type: BLOOD SPECIMEN Ordering Facility: [facility] Address: [address] Performed By: #### 2 2, #### [facility] CLIA [id number] [place] [address] [place] ESTIMATED GLOMERULAR FILTRATION RATE 107 mL/min/1.73m??? Normal >=60 [facility] Comment on above: Order Comment: John chan Type: BLOOD SPECIMEN Ordering Facility: [facility] Address: [address] [facility] [facility] [place] [place] [id number] Result Comment: Trena mated Glomerular Filtration Rate [...] GFR. Performed By: #### 2 4321-2, #### [facility] CLIA [id number] [place] [address] [place] Glucose [Mass/Vol] 92 mg/dL Normal 74-99 [facility] Comment on above: Order Comment: John chan Type: BLOOD SPECIMEN Ordering Facility: [facility] Address: [address] [place] [address] Result Comment: The [place] [employer] (ADA) provides guidance for cutoff [...] Standards of Medical Care in Diabetes 2016, [place] [employer]. Diabetes Care. 2016.39(Suppl 1). Performed By: #### 2 4321-2, 60264-1 #### [facility] CLIA [id number] [place] [address] [place] Potassium [Moles/Vol] 3.8 mmol/L Normal 3.7-5.1 [facility] Comment on above: Order Comment: John chan Type: BLOOD SPECIMEN Ordering Facility: [facility] Address: [address] Performed By: #### 2 4320-2, #### [facility] CLIA [id number] [place] [address] [place] Sodium [Moles/Vol] 139 mmol/L Normal 136-144 [facility] Comment on above: Order Comment: Speci men Type: BLOOD SPECIMEN Ordering Facility: [facility] Address: [address] [place] [address] Performed By: #### 2 2, #### [facility] CLIA [id number] [address] [place] [address] [place] Urea nitrogen [Mass/Vol] 8 mg/dL Low 9-24 [facility] Comment on above: Order Comment: Speci men Type: BLOOD SPECIMEN Ordering Facility: [facility] Address: [address] [place] [address] Performed By: #### 2 4320-11, #### [facility] CLIA [id number] [address] [place] [address] [place] CBC W Auto Differential pane l (Bld)on 02-28-2023 Basophils (Bld) [#/Vol] 0.03 10*3/uL Normal <0.11 [facility] Comment on above: Order Comment: Speci men Type: BLOOD SPECIMEN Ordering Facility: [facility] Address: [address] [place] [address] Performed By: #### 2 4320-11, #### [facility] CLIA [id number] [address] [place] [address] [place] Basophils/100 WBC (Bld) 0.6 % Normal [facility] Comment on above: Order Comment: Speci men Type: BLOOD SPECIMEN Ordering Facility: [facility] Address: [address] [place] [address] Performed By: #### 2 2, #### [facility] CLIA [id number] [address] [place] [address] [place] Differential cell count method Nom (Bld) Auto Normal [facility] Comment on above: Order Comment: Speci men Type: BLOOD SPECIMEN Ordering Facility: [facility] Address: [address] [address] Performed By: #### 2 4320-11, #### [facility] CLIA [id number] [address] [place] [address] [place] Eosinophils (Bld) [#/Vol] 0.36 10*3/uL Normal <0.46 [facility] Comment on above: Order Comment: Speci men Type: BLOOD SPECIMEN Ordering Facility: [facility] Address: [address] [address] Performed By: #### 2 4320-11, #### [facility] CLIA [id number] [address] [place] [address] [place] Eosinophils/100 WBC (Bld) 7.5 % Normal [facility] Comment on above: Order Comment: Speci men Type: BLOOD SPECIMEN Ordering Facility: [facility] Address: [address] [place] [address] Performed By: #### 2 4320-11, #### [facility] CLIA [id number] [address] [place] [address] [place] Erythrocyte distribution width (RBC) [Ratio] 15.4 % High 11.5-15.0 [facility] Comment on above: Order Comment: Speci men Type: BLOOD SPECIMEN Ordering Facility: [facility] Address: [address] [place] [address] Performed By: #### 2 4320-11, #### [facility] CLIA [id number] [address] [place] [address] [place] Hematocrit (Bld) [Volume fraction] 36.0 % Low 39.0-51.0 [facility] Comment on above: Order Comment: Speci men Type: BLOOD SPECIMEN Ordering Facility: [facility] Address: [address] [place] [address] Performed By: #### 2 4320-11, #### [facility] CLIA [id number] [address] [place] [address] [place] Hemoglobin (Bld) [Mass/Vol] 12.1 g/dL Low 13.0-17.0 [facility] Comment on above: Order Comment: Speci men Type: BLOOD SPECIMEN Ordering Facility: [facility] Address: [address] [place] [address] Performed By: #### 2 2, #### [facility] CLIA [id number] [address] [place] [address] [place] Immature granulocytes (Bld) [#/Vol] 10*3/uL Normal <0.10 [facility] Comment on above: Order Comment: Speci men Type: BLOOD SPECIMEN Ordering Facility: [facility] Address: [address] [place] [address] Performed By: #### 2 4320-11, #### [facility] CLIA [id number] [address] [place] [address] [place] Immature granulocytes/100 WBC (Bld) 0.4 % Normal [facility] Comment on above: Order Comment: Speci men Type: BLOOD SPECIMEN Ordering Facility: [facility] Address: [address] [place] [address] Performed By: #### 2 4320-11, #### [facility] CLIA [id number] [address] [place] [address] [place] Lymphocytes (Bld) [#/Vol] 0.61 10*3/uL Low 1.00-4.00 [facility] Comment on above: Order Comment: Speci men Type: BLOOD SPECIMEN Ordering Facility: [facility] Address: [address] [address] Performed By: #### 2 4320-11, #### [facility] CLIA [id number] [address] [place] [address] [place] Lymphocytes/100 WBC (Bld) 12.6 % Normal [facility] Comment on above: Order Comment: Speci men Type: BLOOD SPECIMEN Ordering Facility: [facility] Address: [address] [place] [address] Performed By: #### 2 4320-11, #### [facility] CLIA [id number] [place] [address] [place] MCH (RBC) [Entitic mass] 30.0 pg Normal 26.0-34.0 [facility] Comment on above: Order Comment: Speci men Type: BLOOD SPECIMEN Ordering Facility: [facility] Address: [address] [place] [address] Performed By: #### 2 4320-11, #### [facility] CLIA [id number] [address] [place] [address] [place] MCHC (RBC) [Mass/Vol] 33.6 g/dL Normal 30.5-36.0 [facility] Comment on above: Order Comment: Speci men Type: BLOOD SPECIMEN Ordering Facility: [facility] Address: [address] [place] [address] Performed By: #### 2 4320-11, #### [facility] CLIA [id number] [address] [place] [address] [place] MCV (RBC) [Entitic vol] 89.3 fL Normal 80.0-100.0 [facility] Comment on above: Order Comment: Speci men Type: BLOOD SPECIMEN Ordering Facility: [facility] Address: [address] [place] [address] Performed By: #### 2 4320-11, #### [facility] CLIA [id number] [address] [place] [address] [place] Monocytes (Bld) [#/Vol] 0.58 10*3/uL Normal <0.87 [facility] Comment on above: Order Comment: Speci men Type: BLOOD SPECIMEN Ordering Facility: [facility] Address: [address] [place] [address] Performed By: #### 2 4320-11, #### [facility] CLIA [id number] [address] [place] [address] [place] Monocytes/100 WBC (Bld) 12.0 % Normal [facility] Comment on above: Order Comment: Speci men Type: BLOOD SPECIMEN Ordering Facility: [facility] Address: [address] [address] Performed By: #### 2 4320-11, #### [facility] CLIA [id number] [address] [place] [address] [place] Neutrophils (Bld) [#/Vol] 3.23 10*3/uL Normal 1.45-7.50 [facility] Comment on above: Order Comment: Speci men Type: BLOOD SPECIMEN Ordering Facility: [facility] Address: [address] [address] Performed By: #### 2 4320-11, #### [facility] CLIA [id number] [address] [place] [address] [place] Neutrophils/100 WBC (Bld) 66.9 % Normal [facility] Comment on above: Order Comment: Speci men Type: BLOOD SPECIMEN Ordering Facility: [facility] Address: [address] [address] Performed By: #### 2 4320-11, #### [facility] CLIA [id number] [address] [place] [address] [place] Nucleated RBC (Bld) [#/Vol] 10*3/uL Normal <0.01 [facility] Comment on above: Order Comment: Speci men Type: BLOOD SPECIMEN Ordering Facility: [facility] Address: [address] [place] [address] Performed By: #### 2 4320-11, #### [facility] CLIA [id number] [address] [place] [address] [place] Nucleated RBC/100 WBC (Bld) [Ratio] 0.0 /100 WBC Normal [facility] Comment on above: Order Comment: Speci men Type: BLOOD SPECIMEN Ordering Facility: [facility] Address: [address] [place] [address] Performed By: #### 2 4320-11, #### [facility] CLIA [id number] [address] [place] [address] [place] Platelet mean volume (Bld) [Entitic vol] 10.8 fL Normal 9.0-12.7 [facility] Comment on above: Order Comment: Speci men Type: BLOOD SPECIMEN Ordering Facility: [facility] Address: [address] [place] [address] Performed By: #### 2 4320-2, #### [facility] CLIA [id number] [address] [place] [address] [place] Platelets (Bld) [#/Vol] 182 10*3/uL Normal 150-400 [facility] Comment on above: Order Comment: Speci men Type: BLOOD SPECIMEN Ordering Facility: [facility] Address: [address] [place] [address] Performed By: #### 2 2, #### [facility] CLIA [id number] [address] [place] [address] [place] RBC (Bld) [#/Vol] 4.03 10*6/uL Low 4.20-6.00 [facility] Comment on above: Order Comment: Speci men Type: BLOOD SPECIMEN Ordering Facility: [facility] Address: [address] [place] [address] Performed By: #### 2 2, #### [facility] CLIA [id number] [address] [place] [address] [place] WBC (Bld) [#/Vol] 4.83 10*3/uL Normal 3.70-11.00 [facility] Comment on above: Order Comment: Speci men Type: BLOOD SPECIMEN Ordering Facility: [facility] Address: [address] [place] [address] Performed By: #### 2 2, #### [facility] CLIA [id number] [place] [address] [place] Magnesium SerPl-mCncon 02-28 Magnesium [Mass/Vol] 1.8 mg/dL Normal 1.7-2.3 [facility] Comment on above: Order Comment: Speci men Type: BLOOD SPECIMEN Ordering Facility: [facility] Address: [address] [address] Performed By: #### 2 4321-2, #### [facility] CLIA [id number] [address] [place] [address] [place] NURSING PROGon 02-28-2023 NURSING PROG HNO ID: [id number] Author: Christie Mayberry RN Service: Nursing Author Type: Registered Nurse Type: Nursing Progress Note Filed: 02/28/2023 7:43 AM Note Text: 2015: BP 179/67 and 167/62. HR 79. Asymptomatic. No prn BP meds on. Text page sent to surgery for further orders. 2022: Scheduled and PRN BP meds ordered. Normal [facility] Phosphate SerPl-mCncon 02-28 Phosphate [Mass/Vol] 3.0 mg/dL Normal 2.7-4.8 [facility] Comment on above: Order Comment: Speci men Type: BLOOD SPECIMEN Ordering Facility: [facility] Address: [address] [place] [address] Performed By: #### 2 4321-2, #### [facility] CLIA [id number] [address] [place] [address] [place] Basic metabolic 2000 panelon 02-27-2023 Anion gap [Moles/Vol] 10 mmol/L Normal 9-18 [facility] Comment on above: Order Comment: Speci men Type: BLOOD SPECIMEN Ordering Facility: [facility] Address: [address] [place] [address] Performed By: #### 2 4321-2, 53546-1, 2777-1 #### [facility] CLIA [id number] [address] [place] [address] [place] Calcium [Mass/Vol] 8.6 mg/dL Normal 8.5-10.2 [facility] Comment on above: Order Comment: Speci men Type: BLOOD SPECIMEN Ordering Facility: [facility] Address: [address] [place] [address] Performed By: #### 2 4321-2, , 2776-10 #### [facility] CLIA [id number] [address] [place] [address] [place] Chloride [Moles/Vol] 106 mmol/L High 97-105 [facility] Comment on above: Order Comment: Speci men Type: BLOOD SPECIMEN Ordering Facility: [facility] Address: [address] [place] [address] Performed By: #### 2 4321-2, , 2776-10 #### [facility] CLIA [id number] [address] [place] [address] [place] CO2 [Moles/Vol] 26 mmol/L Normal 22-30 [facility] Comment on above: Order Comment: Speci men Type: BLOOD SPECIMEN Ordering Facility: [facility] Address: [address] [place] [address] Performed By: #### 2 4321-2, , 2776-10 #### [facility] CLIA [id number] [address] [place] [address] [place] Creatinine [Mass/Vol] 0.55 mg/dL Low 0.73-1.22 [facility] Comment on above: Order Comment: Speci men Type: BLOOD SPECIMEN Ordering Facility: [facility] Address: [address] [place] [address] Performed By: #### 2 4321-2, , 2776-10 #### [facility] CLIA [id number] [address] [place] [address] [place] ESTIMATED GLOMERULAR FILTRATION RATE 103 mL/min/1.73m??? Normal >=60 [facility] Comment on above: Order Comment: Speci men Type: BLOOD SPECIMEN Ordering Facility: [facility] Address: [address] [place] [address] Result Comment: Trena mated Glomerular Filtration Rate [...] By: #### 2 4321-2, , 2776-10 #### [facility] CLIA [id number] [address] [place] [address] [place] Glucose [Mass/Vol] 101 mg/dL High 74-99 [facility] Comment on above: Order Comment: Speci men Type: BLOOD SPECIMEN Ordering Facility: [facility] Address: [address] [place] [address] Result Comment: The [place] [employer] (ADA) provides guidance for cutoff [...] Standards of Medical Care in Diabetes 2016, [place] [employer]. Diabetes Care. 2016.39(Suppl 1). Performed By: #### 2 4321-2, , 2776-10 #### [facility] CLIA [id number] [place] [address] [place] Potassium [Moles/Vol] 3.6 mmol/L Low 3.7-5.1 [facility] Comment on above: Order Comment: Speci men Type: BLOOD SPECIMEN Ordering Facility: [facility] Address: [address] [place] [address] Performed By: #### 2 4321-2, , 2776-10 #### [facility] CLIA [id number] [address] [id number] [place] Sodium [Moles/Vol] 142 mmol/L Normal 136-144 [facility] Comment on above: Order Comment: Speci men Type: BLOOD SPECIMEN Ordering Facility: [facility] Address: [address] [phone] Performed By: #### 2 4321-2, , 2776-10 #### [facility] CLIA [id number] [address] Urea nitrogen [Mass/Vol] 8 mg/dL Low 9-24 [facility] Comment on above: Order Comment: Speci men Type: BLOOD SPECIMEN Ordering Facility: [facility] Address: [address] [phone] Performed By: #### 2 4321-2, , 27704-14 #### [facility] CLIA [id number] [address] CASE MGT INIT ASSESon 2022 CASE MGT INIT ASSES HNO ID: [id number] Author: YURY Luz Service: ? 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 Patient's NOK would [...] 27, 2023 TIME: 3:26 PM CONTACT #: [phone] Normal [facility] CBC W Auto Differential pane l (Bld)on 02-27-2023 Basophils (Bld) [#/Vol] 0.03 10*3/uL Normal <0.11 [facility] Comment on above: Order Comment: Specesperanza chan Type: BLOOD SPECIMENOrdering Facility: [facility] Address: [address] [place] [address] Performed By: #### 5 7021-8 ####[facility] [id number] [place] [address] [place] Basophils/100 WBC (Bld) 0.5 % Normal [facility] Comment on above: Order Comment: John chan Type: BLOOD SPECIMENOrdering Facility: [facility] Address: [address] [address] Performed By: #### 5 7021-8 ####[facility] [id number] [place] [address] [place] Differential cell count method Nom (Bld) Auto Normal [facility] Comment on above: Order Comment: Speci men Type: BLOOD SPECIMENOrdering Facility: [facility] Address: [address] [address] Performed By: #### 5 7021-8 ####[facility] [id number] [place] [address] [place] Eosinophils (Bld) [#/Vol] 0.27 10*3/uL Normal <0.46 [facility] Comment on above: Order Comment: Speci men Type: BLOOD SPECIMENOrdering Facility: [facility] Address: [address] [address] Performed By: #### 5 7021-8 ####[facility] [id number] [address] [place] Eosinophils/100 WBC (Bld) 4.5 % Normal [facility] Comment on above: Order Comment: Speci men Type: BLOOD SPECIMENOrdering Facility: [facility] Address: [address] [place] [address] Performed By: #### 5 7021-8 ####[facility] [id number] [address] [place] Erythrocyte distribution width (RBC) [Ratio] 15.8 % High 11.5-15.0 [facility] Comment on above: Order Comment: Speci men Type: BLOOD SPECIMENOrdering Facility: [facility] Address: [address] [address] Performed By: #### 5 7021-8 ####[facility] [id number] [address] [place] Hematocrit (Bld) [Volume fraction] 35.5 % Low 39.0-51.0 [facility] Comment on above: Order Comment: Speci men Type: BLOOD SPECIMENOrdering Facility: [facility] Address: [address] [address] Performed By: #### 5 7021-8 ####[facility] [id number] [place] [address] [place] Hemoglobin (Bld) [Mass/Vol] 11.7 g/dL Low 13.0-17.0 [facility] Comment on above: Order Comment: Speci men Type: BLOOD SPECIMENOrdering Facility: [facility] Address: [address] [address] Performed By: #### 5 7021-8 ####[facility] [id number] [place] [address] [place] Immature granulocytes (Bld) [#/Vol] 0.03 10*3/uL Normal <0.10 [facility] Comment on above: Order Comment: Speci men Type: BLOOD SPECIMENOrdering Facility: [facility] Address: [address] [address] Performed By: #### 5 7021-8 ####[facility] [id number] [place] [address] [place] Immature granulocytes/100 WBC (Bld) 0.5 % Normal [facility] Comment on above: Order Comment: Speci men Type: BLOOD SPECIMENOrdering Facility: [facility] Address: [address] [address] Performed By: #### 5 7021-8 ####[facility] [id number] [place] [address] [place] Lymphocytes (Bld) [#/Vol] 0.78 10*3/uL Low 1.00-4.00 [facility] Comment on above: Order Comment: Speci men Type: BLOOD SPECIMENOrdering Facility: [facility] Address: [address] [address] Performed By: #### 5 7021-8 ####[facility] [id number] [place] [address] [place] Lymphocytes/100 WBC (Bld) 12.9 % Normal [facility] Comment on above: Order Comment: Speci men Type: BLOOD SPECIMENOrdering Facility: [facility] Address: [address] [address] Performed By: #### 5 7021-8 ####[facility] [id number] [place] [address] [place] MCH (RBC) [Entitic mass] 30.2 pg Normal 26.0-34.0 [facility] Comment on above: Order Comment: Speci men Type: BLOOD SPECIMENOrdering Facility: [facility] Address: [address] [place] [address] Performed By: #### 5 7021-8 ####[facility]ORY[facility] [id number] [place] [address] [place] MCHC (RBC) [Mass/Vol] 33.0 g/dL Normal 30.5-36.0 [facility] Comment on above: Order Comment: Speci men Type: BLOOD SPECIMENOrdering Facility: [facility] Address: [address] [place] [address] Performed By: #### 5 7021-8 ####[facility]ORYCLIA [id number] [place] [address] [place] MCV (RBC) [Entitic vol] 91.7 fL Normal 80.0-100.0 [facility] Comment on above: Order Comment: Speci men Type: BLOOD SPECIMENOrdering Facility: [facility] Address: [address] [place] [address] Performed By: #### 5 7021-8 ####[facility]ORY[facility]IA [id number] [address] [place] Monocytes (Bld) [#/Vol] 0.51 10*3/uL Normal <0.87 [facility] Comment on above: Order Comment: Speci men Type: BLOOD SPECIMENOrdering Facility: [facility] Address: [address] [place] [address] Performed By: #### 5 7021-8 ####[facility]ORYCLIA [id number] [address] Monocytes/100 WBC (Bld) 8.4 % Normal [facility] Comment on above: Order Comment: Speci men Type: BLOOD SPECIMENOrdering Facility: [facility] Address: [address] [place] [address] Performed By: #### 5 7021-8 ####[facility]ATORYCLIA [id number] [place] [id number] [place] Neutrophils (Bld) [#/Vol] 4.44 10*3/uL Normal 1.45-7.50 [facility] Comment on above: Order Comment: Speci men Type: BLOOD SPECIMENOrdering Facility: [facility] Address: [address] [address] Performed By: #### 5 7021-8 ####[facility]ORYCLIA [id number] [place] [address] [place] Neutrophils/100 WBC (Bld) 73.2 % Normal [facility] Comment on above: Order Comment: Speci men Type: BLOOD SPECIMENOrdering Facility: [facility] Address: [address] [address] Performed By: #### 5 7021-8 ####[facility]ATORYCLIA [id number] [place] [address] [place] Nucleated RBC (Bld) [#/Vol] 10*3/uL Normal <0.01 [facility] Comment on above: Order Comment: Speci men Type: BLOOD SPECIMENOrdering Facility: [facility] Address: [address] [place] [address] Performed By: #### 5 7021-8 ####[facility] LABORATORYCLIA [id number] [place] [address] [place] Nucleated RBC/100 WBC (Bld) [Ratio] 0.0 /100 WBC Normal [facility] Comment on above: Order Comment: Speci men Type: BLOOD SPECIMENOrdering Facility: [facility] Address: [address] [address] Performed By: #### 5 7021-8 ####[facility] LABORATORYCLIA [id number] [place] [address] [place] Platelet mean volume (Bld) [Entitic vol] 10.7 fL Normal 9.0-12.7 [facility] Comment on above: Order Comment: Speci men Type: BLOOD SPECIMENOrdering Facility: [facility] Address: [address] [place] [address] Performed By: #### 5 7021-8 ####[facility] LABORATORYCLIA [id number] [address] [id number] [facility] Platelets (Bld) [#/Vol] 157 10*3/uL Normal 150-400 [facility] Comment on above: Order Comment: Speci men Type: BLOOD SPECIMENOrdering Facility: [facility] Address: [address] [place] [address] Performed By: #### 5 7021-8 ####[facility] LABORATORYCLIA [id number] [place] [address] [place] RBC (Bld) [#/Vol] 3.87 10*6/uL Low 4.20-6.00 [facility] Comment on above: Order Comment: Speci men Type: BLOOD SPECIMENOrdering Facility: [facility] Address: [address] [address] Performed By: #### 5 7021-8 ####[facility]ORATORYCLIA [id number] [address] [place] WBC (Bld) [#/Vol] 6.06 10*3/uL Normal 3.70-11.00 [facility] Comment on above: Order Comment: Speci men Type: BLOOD SPECIMENOrdering Facility: [facility] Address: [address] [place] [address] Performed By: #### 5 7021-8 ####[facility] LABORATORYCLIA [id number] [place] [id number] [facility] CONSULT PROGon 02-27-2023 CONSULT PROG HNO ID: [id number] Author: Ree Fernandez APRN.BROKER ASSOCIATE Service: Pain Management Author Type: Nurse Practitioner [...] Lymph 1.00 - 4.00 k/uL 0.78 (L) Austin% % 8.4 Abs Austin <0.87 k/uL 0.51 Eosin% % 4.5 Abs [...] - 30 (more content not included)... Normal [facility] HIGH SENSITIVITY TROPONIN To n 02-27-2023 HIGH SENSITIVITY PHYLLIS 14 ng/L High <12 [facility] Comment on above: Order Comment: John chan Type: BLOOD SPECIMEN Ordering Facility: [facility] Address: [address] [place] [phone] Result Comment: When assessing risk for acute [...] day MACE. Performed By: #### 2 4321-2, 36998-5 #### [facility] CLIA [id number] [address] [place] [address] [place] Magnesium SerPl-mCncon 02-27 Magnesium [Mass/Vol] 2.1 mg/dL Normal 1.7-2.3 [facility] Comment on above: Order Comment: Speci men Type: BLOOD SPECIMEN Ordering Facility: [facility] Address: [place] [address] Performed By: #### 2 4321-2, , 2776-10 #### [facility] CLIA [id number] [place] NURSING PROGon 02-27-2023 NURSING PROG HNO ID: [id number] Author: Latasha Evans RN Service: Nursing Author [...] chair with 2 assist and walker. 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 bp 155/49, hr 71, spo2 94% nc 2.5L. would you like a troponin order. Thanks Vivian [phone], new orders received. 0139 paged surgery Hi, [email or web address] Tatiana, high sensitivity troponin was 14. Normal [facility] Phosphate SerPl-mCncon 02-27 Phosphate [Mass/Vol] 2.1 mg/dL Low 2.7-4.8 [facility] Comment on above: Order Comment: Speci men Type: BLOOD SPECIMEN Ordering [facility]: [facility] Address: [place] [address] Performed By: #### 2 4321-2, , 2776-10 #### [facility] CLIA [id number] [place] [address] [place] THERAPY NTon 05-16-2023 THERAPY NT HNO ID: [id number] Author: Judith Hernandez, OTR/L Service: Occupational Therapy Author Type: Occupational Therapist Type: Therapy (PT/OT/Speech/Resp) Filed: 02/27/2023 5:06 PM Note Text: Occupational Therapy Treatment SERVICE DATE: 02/27/2023 SERVICE TIME: 1546 to 1640 ROOM: [address] [place] [address] Scheduled Surgery For Left Inguinal Hernia, S/P Attempted Lbdm-Adu-Pjkgj Repair Of Left Femoral Hernia, Excision Of [...] Shoe Horn, Long Handled Sponge, Wheeled Walker, Superintendent Greens, Sock Aid, Shower Chair OT 6 Clicks Score: 17 Precautions/Activity Restrictions: Abdominal, Bed/Chair Alarm, Fall Risk, Lines/Tubes/Drains, Diet Restrictions, Other: See Comments Current Hospital Course: Scheduled Surgery For Left Inguinal Hernia, S/P Attempted Lhbg-Imq-Svtpk Repair Of Left Femoral Hernia, Excision Of Previously Implanted Mesh, Exploratory Laparotomy, Bilateral TAR, Implantation Of 30 x 30 cm Prolene Mesh 02/23/23 Reason for Hospital Admission: Scheduled Surgery For Left Inguinal Hernia, S/P Attempted Geeq-Fte-Ywzfx Repair Of Left Femoral Hernia, Excision Of [...] Comment Comments: In one level home in [place], [place] Assistance Available: PRN Entry To Home: [...] situation 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 [facility] THERAPY NT HNO ID: [id number] Author: Ree Gardner, PT Service: Physical Therapy Author Type: Physical Therapist Type: Therapy (PT/OT/Speech/Resp) Filed: 02/27/2023 12:36 PM Note Text: Physical Therapy Treatment SERVICE DATE: 02/27/2023 SERVICE TIME: 1100 to 1138 ROOM: [address] [address] Recommended Discharge Disposition: Subacute/SNF Recommended Discharge Disposition [...] Surgery For Left Inguinal Hernia, S/P Attempted Adgv-Kih-Ndlwk Repair Of Left Femoral Hernia, Excision Of Previously Implanted Mesh, Exploratory Laparotomy, Bilateral TAR, Implantation Of 30 x 30 cm Prolene Mesh 02/23/23 Reason for Hospital Admission: Scheduled Surgery For Left Inguinal Hernia, S/P Attempted Ujuy-Lpw-Pnxue Repair Of Left Femoral Hernia, Excision Of [...] Comment Comments: In one level home in [place], [place] Assistance Available: PRN Entry To Home: [...] Diagnosis: Reduced mobility-other Interventions Provided: Therapeutic Exercise (27839), Therapeutic Activity (03953), Gait Training (01378) Therapeutic Exercise (54942) Treatment Minutes: 15 $ Therapeutic Exercise (63459) Billed Units: 1 unit Therapeutic Activity (42632) Treatment Minutes: 15 $ Therapeutic Activity (76691) Billed Units: 1 unit Gait Training (58864) Treatment Minutes: 8 $ Gait Training (16858) Billed Units: 1 unit (more content not included)... Normal [facility] Basic metabolic 2000 panelon 02-26-2023 Anion gap [Moles/Vol] 9 mmol/L Normal 9-18 [facility] Comment on above: Order Comment: Speci men Type: BLOOD SPECIMENOrdering Facility: [facility] Address: [address] [place], [place] [address] [address] Performed By: #### 2 4321-2, , 2776-10 ####[facility] LABORATORYCLIA [id number] [address] [id number] [place] Calcium [Mass/Vol] 8.5 mg/dL Normal 8.5-10.2 [facility] Comment on above: Order Comment: Speci men Type: BLOOD SPECIMENOrdering Facility: [facility] Address: [address] Performed By: #### 2 4321-2, , 2776-10 ####[facility] LABORATORYCLIA [id number] [place] [address] [place] Chloride [Moles/Vol] 104 mmol/L Normal 97-105 [facility] Comment on above: Order Comment: Speci men Type: BLOOD SPECIMENOrdering Facility: [facility] Address: [address] [address] Performed By: #### 2 4321-2, , 2776-10 ####[facility] LABORATORYCLIA [id number] [address] [id number] [place] CO2 [Moles/Vol] 25 mmol/L Normal 22-30 [facility] Comment on above: Order Comment: Speci men Type: BLOOD SPECIMENOrdering Facility: [facility] Address: [address] Performed By: #### 2 4321-2, , 2776-10 ####[facility] LABORATORYCLIA [id number] [address] [id number] [place] Creatinine [Mass/Vol] 0.55 mg/dL Low 0.73-1.22 [facility] Comment on above: Order Comment: Speci men Type: BLOOD SPECIMENOrdering Facility: [facility] Address: [address] Performed By: #### 2 4321-2, , 2776-10 ####[facility] LABORATORYCLIA [id number] [place] [address] [place] ESTIMATED GLOMERULAR FILTRATION RATE 103 mL/min/1.73m??? Normal >=60 [facility] Comment on above: Order Comment: John chan Type: BLOOD SPECIMENOrdering Facility: [facility] Address: [address] [place], [place] [address] Result Comment: Trena mated Glomerular Filtration Rate [...] Performed By: #### 2 4321-2, , 2776-10 ####[facility] LABORATORYCLIA [id number] [address] [address] [id number] [place] Glucose [Mass/Vol] 105 mg/dL High 74-99 [facility] Comment on above: Order Comment: John chan Type: BLOOD SPECIMENOrdering Facility: [facility] Address: [address] [place] [address] Result Comment: The [place] Diabetes Association (ADA) provides guidance for cutoff [...] Standards of Medical Care in Diabetes 2016, [place] [employer]. Diabetes Care. 2016.39(Suppl 1). Performed By: #### 2 4321-2, , 2776-10 ####[facility] LABORATORYCLIA [id number] [address] [address] [id number] [place] Potassium [Moles/Vol] 3.2 mmol/L Low 3.7-5.1 [facility] Comment on above: Order Comment: Speci men Type: BLOOD SPECIMENOrdering Facility: [facility] Address: [address] [address] Performed By: #### 2 4321-2, , 2776-10 ####[facility] LABORATORYCLIA [id number] [place] [address] [place] Sodium [Moles/Vol] 138 mmol/L Normal 136-144 [facility] Comment on above: Order Comment: Speci men Type: BLOOD SPECIMENOrdering Facility: [facility] Address: [address] [address] Performed By: #### 2 4321-2, , 2776-10 ####[facility] LABORATORYCLIA [id number] [place] [address] [place] Urea nitrogen [Mass/Vol] 9 mg/dL Normal 9-24 [facility] Comment on above: Order Comment: Speci men Type: BLOOD SPECIMENOrdering Facility: [facility] Address: [address] [address] Performed By: #### 2 4321-2, , 2776-10 ####[facility] LABORATORYCLIA [id number] [address] [place] CBC W Auto Differential pane l (Bld)on 02-26-2023 Basophils (Bld) [#/Vol] 0.03 10*3/uL Normal <0.11 [facility] Comment on above: Order Comment: Speci men Type: BLOOD SPECIMEN [facility] Address: [address] [address] Performed By: #### 5 7021-8 #### [facility] CLIA [id number] [place] Basophils/100 WBC (Bld) 0.4 % Normal [facility] Comment on above: Order Comment: Speci men Type: BLOOD SPECIMEN [facility] Address: [address] [place] [address] Performed By: #### 5 7021-8 #### [facility] CLIA [id number] [address] [place] [address] [place] Differential cell count method Nom (Bld) Auto Normal [facility] Comment on above: Order Comment: Speci men Type: BLOOD SPECIMEN [facility]: [facility] Address: [address] [place] [address] Performed By: #### 5 7021-8 #### [facility] CLIA [id number] [address] [place] [address] [place] Eosinophils (Bld) [#/Vol] 0.21 10*3/uL Normal <0.46 [facility] Comment on above: Order Comment: Speci men Type: BLOOD SPECIMEN [facility] Address: [address] [place] [address] Performed By: #### 5 7021-8 #### [facility] CLIA [id number] [address] [place] [address] [place] Eosinophils/100 WBC (Bld) 2.6 % Normal [facility] Comment on above: Order Comment: Speci men Type: BLOOD SPECIMEN [facility]: [facility] Address: [address] [place] [address] Performed By: #### 5 7021-8 #### [facility] CLIA [id number] [address] [place] [address] [place] Erythrocyte distribution width (RBC) [Ratio] 15.5 % High 11.5-15.0 [facility] Comment on above: Order Comment: Speci men Type: BLOOD SPECIMEN [facility]: [facility] Address: [address] [place] [address] Performed By: #### 5 7021-8 #### [facility] CLIA [id number] [address] [place] [address] [place] Hematocrit (Bld) [Volume fraction] 34.6 % Low 39.0-51.0 [facility] Comment on above: Order Comment: Speci men Type: BLOOD SPECIMEN [facility]: [facility] Address: [address] [place] [address] Performed By: #### 5 7021-8 #### [facility] CLIA [id number] [address] [place] [address] [place] Hemoglobin (Bld) [Mass/Vol] 11.8 g/dL Low 13.0-17.0 [facility] Comment on above: Order Comment: Speci men Type: BLOOD SPECIMEN Ordering Facility: [facility] Address: [address] [place] [address] Performed By: #### 5 7021-8 #### [facility] CLIA [id number] [address] [place] [address] [place] Immature granulocytes (Bld) [#/Vol] 0.03 10*3/uL Normal <0.10 [facility] Comment on above: Order Comment: Speci men Type: BLOOD SPECIMEN [facility]ing [facility]: [facility] Address: [address] [place] [address] Performed By: #### 5 7021-8 #### [facility] CLIA [id number] [address] [place] [address] [place] Immature granulocytes/100 WBC (Bld) 0.4 % Normal [facility] Comment on above: Order Comment: Speci men Type: BLOOD SPECIMEN [facility]ing [facility]: [facility] Address: [address] [place] [address] Performed By: #### 5 7021-8 #### [facility] CLIA [id number] [address] [place] [address] [place] Lymphocytes (Bld) [#/Vol] 0.71 10*3/uL Low 1.00-4.00 [facility] Comment on above: Order Comment: Speci men Type: BLOOD SPECIMEN [facility]: [facility] Address: [address] [place] [address] Performed By: #### 5 7021-8 #### [facility] CLIA [id number] [address] [place] [address] [place] Lymphocytes/100 WBC (Bld) 8.9 % Normal [facility] Comment on above: Order Comment: Speci men Type: BLOOD SPECIMEN [facility] Address: [address] [address] Performed By: #### 5 7021-8 #### [facility] CLIA [id number] [address] [place] [address] [place] [facility] MCH (RBC) [Entitic mass] 30.6 pg Normal 26.0-34.0 [facility] Comment on above: Order Comment: Speci men Type: BLOOD SPECIMEN [facility]: [facility] Address: [address] [address] Performed By: #### 5 7021-8 #### [facility] CLIA [id number] [address] [place] [address] [place] MCHC (RBC) [Mass/Vol] 34.1 g/dL Normal 30.5-36.0 [facility] Comment on above: Order Comment: Speci men Type: BLOOD SPECIMEN [facility]ing Facility: [facility] Address: [address] [address] Performed By: #### 5 7021-8 #### [facility] CLIA [id number] [address] [place] [address] [place] MCV (RBC) [Entitic vol] 89.6 fL Normal 80.0-100.0 [facility] Comment on above: Order Comment: Speci men Type: BLOOD SPECIMEN [facility]ing [facility]: [facility] Address: [address] [place] [address] Performed By: #### 5 7021-8 #### [facility] CLIA [id number] [address] [place] [address] [place] Monocytes (Bld) [#/Vol] 0.62 10*3/uL Normal <0.87 [facility] Comment on above: Order Comment: Speci men Type: BLOOD SPECIMEN [facility]: [facility] Address: [address] [place] [address] Performed By: #### 5 7021-8 #### [facility] CLIA [id number] [address] [place] [address] [place] Monocytes/100 WBC (Bld) 7.8 % Normal [facility] Comment on above: Order Comment: Speci men Type: BLOOD SPECIMEN [facility]: [facility] Address: [address] [address] Performed By: #### 5 7021-8 #### [facility] CLIA [id number] [address] [place] [address] [place] Neutrophils (Bld) [#/Vol] 6.37 10*3/uL Normal 1.45-7.50 [facility] Comment on above: Order Comment: Speci men Type: BLOOD SPECIMEN [facility]: [facility] Address: [address] [address] Performed By: #### 5 7021-8 #### [facility] CLIA [id number] [address] [place] [address] [place] Neutrophils/100 WBC (Bld) 79.9 % Normal [facility] Comment on above: Order Comment: Speci men Type: BLOOD SPECIMEN Ordering Facility: [facility] Address: [address] [address] Performed By: #### 5 7021-8 #### [facility] CLIA [id number] [address] [place] [address] [place] Nucleated RBC (Bld) [#/Vol] 10*3/uL Normal <0.01 [facility] Comment on above: Order Comment: Speci men Type: BLOOD SPECIMEN Ordering Facility: [facility] Address: [address] [place] [address] Performed By: #### 5 7021-8 #### [facility] CLIA [id number] [address] [place] [address] [place] Nucleated RBC/100 WBC (Bld) [Ratio] 0.0 /100 WBC Normal [facility] Comment on above: Order Comment: Speci men Type: BLOOD SPECIMEN Ordering Facility: [facility] Address: [address] [place] [address] Performed By: #### 5 7021-8 #### [facility] CLIA [id number] [address] [place] [address] [place] Platelet mean volume (Bld) [Entitic vol] 11.0 fL Normal 9.0-12.7 [facility] Comment on above: Order Comment: Speci men Type: BLOOD SPECIMEN Ordering Facility: [facility] Address: [address] [place] [address] Performed By: #### 5 7021-8 #### [facility] CLIA [id number] [address] [place] [address] [place] Platelets (Bld) [#/Vol] 131 10*3/uL Low 150-400 [facility] Comment on above: Order Comment: Speci men Type: BLOOD SPECIMEN Ordering Facility: [facility] Address: [address] [place] [address] Performed By: #### 5 7021-8 #### [facility] CLIA [id number] [address] [place] [address] [place] RBC (Bld) [#/Vol] 3.86 10*6/uL Low 4.20-6.00 [facility] Comment on above: Order Comment: Speci men Type: BLOOD SPECIMEN Ordering Facility: [facility] Address: [address] [place] [address] Performed By: #### 5 7021-8 #### [facility] CLIA [id number] [address] [place] [address] [place] WBC (Bld) [#/Vol] 7.97 10*3/uL Normal 3.70-11.00 [facility] Comment on above: Order Comment: Speci men Type: BLOOD SPECIMEN Ordering Facility: [facility] Address: [address] [place] [address] Performed By: #### 5 7021-8 #### [facility] CLIA [id number] [address] [place] [address] [place] CONSULT PROGon 02-26-2023 CONSULT PROG HNO ID: [id number] Author: Lakeisha Mota APRN.BROKER ASSOCIATE Service: Pain Management Author Type: Nurse Practitioner [...] Lymph 1.00 - 4.00 k/uL 0.71 (L) Austin% % 7.8 Abs [place] <0.87 k/uL 0.62 Eosin% % 2.6 Abs Eosin <0.46 k/uL 0.21 Baso% % 0.4 Abs Baso <0.11 k/uL 0.03 Immature Gran % % 0.4 IMMATURE GRANS (ABS) <0.10 k/uL 0.03 NRBC /100 WBC 0.0 Absolute nRBC <0.01 k/uL <0.01 (more content not included)... Normal [facility] Magnesium SerPl-mCncon 02-26 Magnesium [Mass/Vol] 1.8 mg/dL Normal 1.7-2.3 [facility] Comment on above: Order Comment: Speci men Type: BLOOD SPECIMENOrdering Facility: [facility] Address: [address] [place], [place] [address] Performed By: #### 2 4321-2, 56960-2, 2777-1 ####[facility] LABORATORYCLIA [id number] [place] [id number] [facility] NURSING PROGon 02-26-2023 NURSING PROG HNO ID: [id number] Author: Christie Mayberry RN Service: Nursing Author [...] sent to surgery for further orders. Normal [facility] Phosphate SerPl-mCncon 02-26 Phosphate [Mass/Vol] 1.4 mg/dL Low 2.7-4.8 [facility] Comment on above: Order Comment: Speci men Type: BLOOD SPECIMENOrdering Facility: [facility] Address: [facility] [address] [place] [address] Performed By: #### 2 4321-2, 72660-9, 2777-1 ####[facility] LABORATORYCLIA [id number] [address] THERAPY NTon 02-26-2023 THERAPY NT HNO ID: [id number] Author: Ree Gardner, PT Service: Physical Therapy Author Type: Physical Therapist Type: Therapy (PT/OT/Speech/Resp) Filed: 02/26/2023 11:44 AM Note Text: Physical Therapy Treatment SERVICE DATE: 02/26/2023 SERVICE TIME: 1027 to 1051 ROOM: [place] [address] Recommended Discharge Disposition: Subacute/SNF Recommended Discharge Disposition [...] Surgery For Left Inguinal Hernia, S/P Attempted Cuxh-Hjn-Korrr Repair Of Left Femoral Hernia, Excision Of Previously Implanted Mesh, Exploratory Laparotomy, Bilateral TAR, Implantation Of 30 x 30 cm Prolene Mesh 02/23/23 Reason for Hospital Admission: Scheduled Surgery For Left Inguinal Hernia, S/P Attempted Lpat-Lao-Ptoqo Repair Of Left Femoral Hernia, Excision Of [...] Comment Comments: In one level home in [place], [place] Assistance Available: PRN Entry To Home: [...] Muscle Weakness (generalized) Interventions Provided: Therapeutic Activity (84446) Therapeutic Activity (56812) Treatment Minutes: 24 $ Therapeutic Activity (91155) Billed Units: 2 units Training AND Education Provided in: Anatomy and Impact on Deficits, Benefits of In-Hospital Mobility, Disease Spe (more content not included)... Normal [facility] Basic metabolic 2000 panelon 02-25-2023 Anion gap [Moles/Vol] 9 mmol/L Normal 9-18 [facility] Comment on above: Order Comment: Specesperanza [facility] Type: BLOOD SPECIMENOrdering Facility: [facility] Address: [address] [place] [address] Performed By: #### 1 9123-9, 2777-, 40844-4 ####[facility] LABORATORYCLIA [id number] [place] [address] [place] Calcium [Mass/Vol] 8.6 mg/dL Normal 8.5-10.2 [facility] Comment on above: Order Comment: [facility] Type: BLOOD SPECIMENOrdering Facility: [facility] Address: [address] [place] [address] Performed By: #### 1 9123-9, 2777-, 10874-7 ####[facility] LABORATORYCLIA [id number] [place] [address] [place] Chloride [Moles/Vol] 106 mmol/L High 97-105 [facility] Comment on above: Order Comment: Speci men Type: BLOOD SPECIMENOrdering Facility: [facility] Address: [address] [address] Performed By: #### 1 9123-9, 2777-, 31786-1 ####[facility] LABORATORYCLIA [id number] [place] [id number] [place] CO2 [Moles/Vol] 24 mmol/L Normal 22-30 [facility] Comment on above: Order Comment: Speci men Type: BLOOD SPECIMENOrdering Facility: [facility] Address: [address] [address] Performed By: #### 1 9123-9, 2777-1, 69687-5 ####[facility] LABORATORYCLIA [id number] [place] [address] [place] Creatinine [Mass/Vol] 0.57 mg/dL Low 0.73-1.22 [facility] Comment on above: Order Comment: Speci men Type: BLOOD SPECIMENOrdering Facility: [facility] Address: [address] [address] Performed By: #### 1 9123-9, 2777-1, 53146-8 ####[facility] LABORATORYCLIA [id number] [place] [address] [place] ESTIMATED GLOMERULAR FILTRATION RATE 102 mL/min/1.73m??? Normal >=60 [facility] Comment on above: Order Comment: Speci men Type: BLOOD SPECIMENOrdering Facility: [facility] Address: [address] [place] [address] Result Comment: Trena mated Glomerular Filtration Rate [...] GFR. Performed By: #### 1 9123-9, 2777-1, 02905-7 ####[facility] LABORATORYCLIA [id number] [place] [address] [place] Glucose [Mass/Vol] 163 mg/dL High 74-99 [facility] Comment on above: Order Comment: Speci men Type: BLOOD SPECIMENOrdering Facility: [facility] Address: [address] [address] Result Comment: The [place] Diabetes Association (ADA) provides guidance for cutoff [...] Standards of Medical Care in Diabetes 2016, [place] [employer]. Diabetes Care. 2016.39(Suppl 1). Performed By: #### 1 9123-9, 2777, 76057-7 ####[facility]ATORYCLIA [id number] [place] [address] [place] Potassium [Moles/Vol] 3.4 mmol/L Low 3.7-5.1 [facility] Comment on above: Order Comment: John chan Type: BLOOD SPECIMENOrdering Facility: [facility] Address: [address] [address] Performed By: #### 1 9123-9, 27704-14, 18366-8 ####[facility] LABORATORYCLIA [id number] [place] [address] [place] Sodium [Moles/Vol] 139 mmol/L Normal 136-144 [facility] Comment on above: Order Comment: John chan Type: BLOOD SPECIMENOrdering Facility: [facility] Address: [address] [address] Performed By: #### 1 9123-9, 27704-14, 94867-2 ####[facility] LABORATORYCLIA [id number] [place] [address] [place] Urea nitrogen [Mass/Vol] 9 mg/dL Normal 9-24 [facility] Comment on above: Order Comment: John chan Type: BLOOD SPECIMENOrdering Facility: [facility] Address: [address] [address] Performed By: #### 1 9123-9, 27704-14, 56204-9 ####[facility] LABORATORYCLIA [id number] [place] [address] [place] CBC W Auto Differential pane l (Bld)on 02-25-2023 Basophils (Bld) [#/Vol] 10*3/uL Normal <0.11 [facility] Comment on above: Order Comment: Speci men Type: BLOOD SPECIMEN Ordering Facility: [facility] Address: [address] [place] [address] Performed By: #### 5 7021-8 #### [facility] CLIA [id number] [address] [place] [address] [place] Basophils/100 WBC (Bld) 0.2 % Normal [facility] Comment on above: Order Comment: Speci men Type: BLOOD SPECIMEN Ordering Facility: [facility] Address: [address] [place] [address] Performed By: #### 5 7021-8 #### [facility] CLIA [id number] [address] [place] [address] [place] Differential cell count method Nom (Bld) Auto Normal [facility] Comment on above: Order Comment: Speci men Type: BLOOD SPECIMEN Ordering Facility: [facility] Address: [address] [place] [address] Performed By: #### 5 7021-8 #### [facility] CLIA [id number] [address] [place] [address] [place] Eosinophils (Bld) [#/Vol] 0.16 10*3/uL Normal <0.46 [facility] Comment on above: Order Comment: Speci men Type: BLOOD SPECIMEN Ordering Facility: [facility] Address: [address] [place] [address] Performed By: #### 5 7021-8 #### [facility] CLIA [id number] [address] [place] [address] [place] Eosinophils/100 WBC (Bld) 1.9 % Normal [facility] Comment on above: Order Comment: Speci men Type: BLOOD SPECIMEN Ordering Facility: [facility] Address: [address] [place], [place] [address] Performed By: #### 5 7021-8 #### [facility] CLIA [id number] [address] [place] [address] [place] Erythrocyte distribution width (RBC) [Ratio] 16.2 % High 11.5-15.0 [facility] Comment on above: Order Comment: Speci men Type: BLOOD SPECIMEN Ordering Facility: [facility] Address: [address] [place] [address] Performed By: #### 5 7021-8 #### [facility] CLIA [id number] [address] [place] [address] [place] Hematocrit (Bld) [Volume fraction] 38.3 % Low 39.0-51.0 [facility] Comment on above: Order Comment: Speci men Type: BLOOD SPECIMEN Ordering Facility: [facility] Address: [address] [place] [address] Performed By: #### 5 7021-8 #### [facility] CLIA [id number] [address] [place] [address] [place] Hemoglobin (Bld) [Mass/Vol] 12.2 g/dL Low 13.0-17.0 [facility] Comment on above: Order Comment: Speci men Type: BLOOD SPECIMEN Ordering Facility: [facility] Address: [address] [place] [address] Performed By: #### 5 7021-8 #### [facility] CLIA [id number] [address] [place] [address] [place] Immature granulocytes (Bld) [#/Vol] 0.05 10*3/uL Normal <0.10 [facility] Comment on above: Order Comment: Speci men Type: BLOOD SPECIMEN Ordering Facility: [facility] Address: [address] [place] [address] Performed By: #### 5 7021-8 #### [facility] CLIA [id number] [address] [place] [address] [place] Immature granulocytes/100 WBC (Bld) 0.6 % Normal [facility] Comment on above: Order Comment: Speci men Type: BLOOD SPECIMEN Ordering Facility: [facility] Address: [address] [address] Performed By: #### 5 7021-8 #### [facility] CLIA [id number] [address] [place] [address] Lymphocytes (Bld) [#/Vol] 0.83 10*3/uL Low 1.00-4.00 [facility] Comment on above: Order Comment: Speci men Type: BLOOD SPECIMEN Ordering Facility: [facility] Address: [address] [address] Performed By: #### 5 7021-8 #### [facility] CLIA [id number] [address] [place] [address] Lymphocytes/100 WBC (Bld) 9.8 % Normal [facility] Comment on above: Order Comment: Speci men Type: BLOOD SPECIMEN Ordering Facility: [facility] Address: [address] [address] Performed By: #### 5 7021-8 #### [facility] CLIA [id number] [address] [place] [address] [place] MCH (RBC) [Entitic mass] 30.2 pg Normal 26.0-34.0 [facility] Comment on above: Order Comment: Speci men Type: BLOOD SPECIMEN Ordering Facility: [facility] Address: [address] [address] Performed By: #### 5 7021-8 #### [facility] CLIA [id number] [address] [place] [address] [place] MCHC (RBC) [Mass/Vol] 31.9 g/dL Normal 30.5-36.0 [facility] Comment on above: Order Comment: Speci men Type: BLOOD SPECIMEN Ordering Facility: [facility] Address: [address] [address] Performed By: #### 5 7021-8 #### [facility] CLIA [id number] [address] [place] [address] [place] MCV (RBC) [Entitic vol] 94.8 fL Normal 80.0-100.0 [facility] Comment on above: Order Comment: Speci men Type: BLOOD SPECIMEN Ordering Facility: [facility] Address: [address] [address] Performed By: #### 5 7021-8 #### [facility] CLIA [id number] [address] [place] [address] [place] Monocytes (Bld) [#/Vol] 0.68 10*3/uL Normal <0.87 [facility] Comment on above: Order Comment: Speci men Type: BLOOD SPECIMEN Ordering Facility: [facility] Address: [address] [address] Performed By: #### 5 7021-8 #### [facility] CLIA [id number] [address] [place] [address] [place] Monocytes/100 WBC (Bld) 8.0 % Normal [facility] Comment on above: Order Comment: Speci men Type: BLOOD SPECIMEN Ordering Facility: [facility] Address: [address] [address] Performed By: #### 5 7021-8 #### [facility] CLIA [id number] [address] [place] [address] [place] Neutrophils (Bld) [#/Vol] 6.77 10*3/uL Normal 1.45-7.50 [facility] Comment on above: Order Comment: Speci men Type: BLOOD SPECIMEN Ordering Facility: [facility] Address: [address] [address] Performed By: #### 5 7021-8 #### [facility] CLIA [id number] [address] [place] [address] [place] Neutrophils/100 WBC (Bld) 79.5 % Normal [facility] Comment on above: Order Comment: Speci men Type: BLOOD SPECIMEN Ordering Facility: [facility] Address: [address] [address] Performed By: #### 5 7021-8 #### [facility] CLIA [id number] [address] [place] [address] [place] Nucleated RBC (Bld) [#/Vol] 10*3/uL Normal <0.01 [facility] Comment on above: Order Comment: Speci men Type: BLOOD SPECIMEN Ordering Facility: [facility] Address: [address] [place] [address] Performed By: #### 5 7021-8 #### [facility] CLIA [id number] [address] [place] [address] [place] Nucleated RBC/100 WBC (Bld) [Ratio] 0.0 /100 WBC Normal [facility] Comment on above: Order Comment: Speci men Type: BLOOD SPECIMEN Ordering Facility: [facility] Address: [address] [place] [address] Performed By: #### 5 7021-8 #### [facility] CLIA [id number] [address] [place] [address] [place] Platelet mean volume (Bld) [Entitic vol] 10.8 fL Normal 9.0-12.7 [facility] Comment on above: Order Comment: Speci men Type: BLOOD SPECIMEN Ordering Facility: [facility] Address: [address] [place] [address] Performed By: #### 5 7021-8 #### [facility] CLIA [id number] [address] [place] [address] [place] Platelets (Bld) [#/Vol] 129 10*3/uL Low 150-400 [facility] Comment on above: Order Comment: Speci men Type: BLOOD SPECIMEN Ordering Facility: [facility] Address: [address] [place] [address] Result Comment: No c lot detected.Platelet count confirmed by manual review of peripheral blood smear. Performed By: #### 5 7021-8 #### [facility] CLIA [id number] [address] [place] [address] [place] RBC (Bld) [#/Vol] 4.04 10*6/uL Low 4.20-6.00 [facility] Comment on above: Order Comment: Speci men Type: BLOOD SPECIMEN Ordering Facility: [facility] Address: [address] [place] [address] Performed By: #### 5 7021-8 #### [facility] CLIA [id number] [address] [id number] [place] WBC (Bld) [#/Vol] 8.51 10*3/uL Normal 3.70-11.00 [facility] Comment on above: Order Comment: Speci men Type: BLOOD SPECIMEN Ordering Facility: [facility] Address: [place] [address] Performed By: #### 5 7021-8 #### [facility] CLIA [id number] [address] [id number] [place] CONSULT PROGon 02-25-2023 CONSULT PROG HNO ID: [id number] Author: Norberto Kennedy PA-C Service: Pain Management Author Type: Physician Deodorizer Operator Type: Consult Progress Note Filed: 02/25/2023 8:26 AM Note Text: PERIPHERAL NERVE CATHETER PROGRESS NOTE PATIENT NAME: Yoni Ramirez SERVICE DATE: 02/25/2023 SERVICE TIME: 8:24 AM ASSESSMENT Yoni Ramirez is a 77 year old male who is POD# 2, S/P .Attempted zhwj-bmg-myniw repair of L femoral hernia Excision of previously implanted mesh Exploratory laparotomy Bilateral TAR Implantation of 30 x 30 cm prolene mesh Patient reports good pain control 0/10 with rest. BTAPS running ropiv 0.2% @ 6 ml Q 30 min. PLAN Continue current pain regimen, will follow. SUBJECTIVE CHIEF COMPLAINT: POD# 1, S/P .Attempted miqv-gzc-jvkwc repair of L femoral hernia Excision of [...] which included preparing to see the patient, qrfb-ge-atqh patient care, completing clinical documentation, obtaining and/or reviewing separately obtained history, and performing a medically appropriate examination. SIGNATURE: Norberto Kennedy PA-C PATIENT NAME: Yoni Ramirez DATE: February 25, 2023 TIME: 8:24 AM PAGER/CONTACT #: [facility] [phone] Normal [facility] Magnesium Banner 02-25 Magnesium [Mass/Vol] 1.9 mg/dL Normal 1.7-2.3 [facility] Comment on above: Order Comment: Speci men Type: BLOOD SPECIMENOrdering Facility: [facility] Address: [address] [place], [place] [phone] Performed By: #### 1 9123-9, 2777-1, 77130-7 ####[facility] LABORATORYCLIA [id number] [address] NURSING PROGon 02-25-2023 NURSING PROG HNO ID: [id number] Author: Ritchie Wright RN Service: ? Author Type: Registered Nurse Type: Nursing Progress Note Filed: 02/25/2023 7:24 PM Note Text: 0918: ambulated with assistance to chair C/o dizziness after rising BP:120/59 pulse 73 94% 3L. Pt. Drowsy, oriented to person, place, time delirious/confused with situation. Surgical team made aware. 1050: Pt disconnected Left tap block. Block stopped pain management made aware. [facility] NURSING PROG HNO ID: [id number] Author: Christie Mayberry RN Service: Nursing Author Type: Registered Nurse Type: Nursing Progress Note Filed: 02/25/2023 4:44 AM Note Text: 0443: Pt's oxygen sating at 90% on 2L. Denies SOB. Placed on 3L NC until CPAP arrives. Pt's home unit unable to hook to O2. IS use encouraged. Normal [facility] Phosphate Banner 02-25 Phosphate [Mass/Vol] 1.4 mg/dL Low 2.7-4.8 [facility] Comment on above: Order Comment: Speci men Type: BLOOD SPECIMENOrdering Facility: [facility] Address: [address] [place] [phone] Performed By: #### 1 9123-9, 2777-1, 09419-3 ####[facility] LABORATORYCLIA [id number] [place] [id number] [facility] [place] BRIEF OP NOTon 02-24-2023 BRIEF OP NOT HNO ID: [id number] Author: Sergio Webster MD Service: Critical Care Author Type: Resident Type: Brief Op Note Filed: 02/23/2023 10:28 PM Note Text: BRIEF OPERATIVE / PROCEDURE NOTE LOG ID: [id number] SURGERY/PROCEDURE DATE: 02/23/2023 INCISION/PROCEDURE START TIME: 3:01 PM INCISION CLOSE/PROCEDURE END TIME: 10:28 PM SURGEON(S)/PROCEDURALIST(S ) AND CLEANER AND TRIMMER(S): Surgeon(s) and Role: * Donato Bishop MD - Primary * Jacky Curiel MD - Resident - Assisting * Sergio Webster MD - Resident - Assisting * Carolina Lorenz MD - Resident - Assisting * Loyd Floyd MD - Fellow No Additional Staff SURGERY/PROCEDURE(S): Attempted yble-gba-vzloz repair of L femoral hernia Excision of [...] February 23, 2023 TIME: 10:24 PM Normal [facility] Basic metabolic 2000 panelon 02-24-2023 Anion gap [Moles/Vol] 8 mmol/L Low 9-18 [facility] Comment on above: Order Comment: Speci men Type: BLOOD SPECIMEN Ordering Facility: [facility] Address: [address] [place] [address] Performed By: #### 2 4321-2, 55018-2 #### [facility] CLIA [id number] [address] [place] [address] [place] Calcium [Mass/Vol] 8.6 mg/dL Normal 8.5-10.2 [facility] Comment on above: Order Comment: Speci men Type: BLOOD SPECIMEN Ordering Facility: [facility] Address: [address] [place] [address] Performed By: #### 2 2, #### [facility] CLIA [id number] [address] [place] [address] [place] Chloride [Moles/Vol] 105 mmol/L Normal 97-105 [facility] Comment on above: Order Comment: Speci men Type: BLOOD SPECIMEN Ordering Facility: [facility] Address: [address] [place] [address] Performed By: #### 2 4322, #### [facility] CLIA [id number] [address] [place] [address] [place] CO2 [Moles/Vol] 27 mmol/L Normal 22-30 [facility] Comment on above: Order Comment: Speci men Type: BLOOD SPECIMEN Ordering Facility: [facility] Address: [address] [place] [address] Performed By: #### 2 2, #### [facility] CLIA [id number] [address] [place] [address] [place] Creatinine [Mass/Vol] 0.61 mg/dL Low 0.73-1.22 [facility] Comment on above: Order Comment: Speci men Type: BLOOD SPECIMEN Ordering Facility: [facility] Address: [address] [place] [address] Performed By: #### 2 4320-11, #### [facility] CLIA [id number] [address] [place] [address] [place] ESTIMATED GLOMERULAR FILTRATION RATE 100 mL/min/1.73m??? Normal >=60 [facility] Comment on above: Order Comment: Speci men Type: BLOOD SPECIMEN Ordering Facility: [facility] Address: [address] [place] [address] Result Comment: Trena mated Glomerular Filtration Rate [...] GFR. Performed By: #### 2 4320-11, #### [facility] CLIA [id number] [address] [place] [address] [place] Glucose [Mass/Vol] 163 mg/dL High 74-99 [facility] Comment on above: Order Comment: John chan Type: BLOOD SPECIMEN Ordering Facility: [facility] Address: [address] [address] Result Comment: The [place] [employer] (ADA) provides guidance for cutoff [...] Standards of Medical Care in Diabetes 2016, [place] [employer]. Diabetes Care. 2016.39(Suppl 1). Performed By: #### 2 4320-11, #### [facility] CLIA [id number] [address] [place] [address] [place] Potassium [Moles/Vol] 3.8 mmol/L Normal 3.7-5.1 [facility] Comment on above: Order Comment: John chan Type: BLOOD SPECIMEN Ordering Facility: [facility] Address: [address] [phone] Performed By: #### 2 4320-11, #### [facility] CLIA [id number] [place] [address] [place] Sodium [Moles/Vol] 140 mmol/L Normal 136-144 [facility] Comment on above: Order Comment: John chan Type: BLOOD SPECIMEN Ordering Facility: [facility] Address: [address] [place] [address] Performed By: #### 2 4321-2, #### [facility] CLIA [id number] [address] [place] [address] [place] Urea nitrogen [Mass/Vol] 11 mg/dL Normal 9-24 [facility] Comment on above: Order Comment: Speci men Type: BLOOD SPECIMEN Ordering Facility: [facility] Address: [address] [address] Performed By: #### 2 432-2, #### [facility] CLIA [id number] [address] [place] [address] [place] CBC panel Auto (Bld)on 02-24 Erythrocyte distribution width (RBC) [Ratio] 16.0 % High 11.5-15.0 [facility] Comment on above: Order Comment: Speci men Type: BLOOD SPECIMEN Ordering Facility: [facility] Address: [address] [place] [address] Performed By: #### 5 8410-2 #### [facility] CLIA [id number] [address] [place] [address] [place] Hematocrit (Bld) [Volume fraction] 38.3 % Low 39.0-51.0 [facility] Comment on above: Order Comment: Speci men Type: BLOOD SPECIMEN Ordering Facility: [facility] Address: [address] [place] [address] Performed By: #### 5 8410-2 #### [facility] CLIA [id number] [address] [place] [address] [place] Hemoglobin (Bld) [Mass/Vol] 12.8 g/dL Low 13.0-17.0 [facility] Comment on above: Order Comment: Speci men Type: BLOOD SPECIMEN Ordering Facility: [facility] Address: [address] [place] [address] Performed By: #### 5 8410-2 #### [facility] CLIA [id number] [address] [place] [address] [place] MCH (RBC) [Entitic mass] 30.3 pg Normal 26.0-34.0 [facility] Comment on above: Order Comment: Speci men Type: BLOOD SPECIMEN Ordering Facility: [facility] Address: [address] [place] [address] Performed By: #### 5 8410-2 #### [facility] CLIA [id number] [address] [place] [address] [place] MCHC (RBC) [Mass/Vol] 33.4 g/dL Normal 30.5-36.0 [facility] Comment on above: Order Comment: Speci men Type: BLOOD SPECIMEN Ordering Facility: [facility] Address: [address] [place] [address] Performed By: #### 5 8410-2 #### [facility] CLIA [id number] [address] [place] [address] [place] MCV (RBC) [Entitic vol] 90.8 fL Normal 80.0-100.0 [facility] Comment on above: Order Comment: Speci men Type: BLOOD SPECIMEN Ordering Facility: [facility] Address: [address] [address] Performed By: #### 5 8410-2 #### [facility] CLIA [id number] [address] [place] [address] [place] Nucleated RBC (Bld) [#/Vol] 10*3/uL Normal <0.01 [facility] Comment on above: Order Comment: Speci men Type: BLOOD SPECIMEN Ordering Facility: [facility] Address: [address] [address] Performed By: #### 5 8410-2 #### [facility] CLIA [id number] [address] [place] [address] [place] Platelet mean volume (Bld) [Entitic vol] 11.3 fL Normal 9.0-12.7 [facility] Comment on above: Order Comment: Speci men Type: BLOOD SPECIMEN Ordering Facility: [facility] Address: [address] [place] [address] Performed By: #### 5 8410-2 #### [facility] CLIA [id number] [address] [place] [address] [place] Platelets (Bld) [#/Vol] 146 10*3/uL Low 150-400 [facility] Comment on above: Order Comment: Speci men Type: BLOOD SPECIMEN Ordering Facility: [facility] Address: [address] [place] [address] Performed By: #### 5 8410-2 #### [facility] CLIA [id number] [address] [place] [address] [place] RBC (Bld) [#/Vol] 4.22 10*6/uL Normal 4.20-6.00 [facility] Comment on above: Order Comment: Speci men Type: BLOOD SPECIMEN Ordering Facility: [facility] Address: [address] [place] [address] Performed By: #### 5 8410-2 #### [facility] CLIA [id number] [place] [address] [place] WBC (Bld) [#/Vol] 10.56 10*3/uL Normal 3.70-11.00 [facility] Comment on above: Order Comment: Speci men Type: BLOOD SPECIMEN Ordering Facility: [facility] Address: [address] [place] [address] Performed By: #### 5 8410-2 #### [facility] CLIA [id number] [address] [place] [address] OF [facility] CONSULT PROGon 02-24-2023 CONSULT PROG HNO ID: [id number] Author: Norberto Kennedy PA-C Service: Pain Management Author Type: Physician Deodorizer Operator Type: Consult Progress Note Filed: 02/24/2023 8:51 AM Note Text: PERIPHERAL NERVE CATHETER PROGRESS NOTE PATIENT NAME: Yoni Ramirez SERVICE DATE: 02/24/2023 SERVICE TIME: 8:37 AM ASSESSMENT Yoni Ramirez is a 77 year old male who is POD# 1, S/P .Attempted rijv-mcr-uwhwu repair of L femoral hernia Excision of [...] SUBJECTIVE CHIEF COMPLAINT: POD# 1, S/P .Attempted hugw-vpk-cyccs repair of L femoral hernia Excision of [...] which included preparing to see the patient, jysz-rd-ljei patient care, completing clinical documentation, obtaining and/or reviewing separately obtained history, performing a medically appropriate examination, and care coordination (not separately reported). SIGNATURE: Norberto Kennedy PA-C PATIENT NAME: Yoni Ramirez DATE: February 24, 2023 TIME: 8:37 AM PAGER/CONTACT #: APMS [phone] [facility] Magn[facility] Magnesium [Mass/Vol] 1.8 mg/dL Normal 1.7-2.3 [facility] Comment on above: Order Comment: Speci men Type: BLOOD SPECIMEN Ordering Facility: [facility] Address: [address] [place] [address] Performed By: #### 2 4321-2, 14522-5 #### [facility] CLIA [id number] [address] [place] [address] [place] NURSING PROGon 02-24-2023 NURSING PROG HNO ID: [id number] Author: Aminah Dos Santos RN Service: ? [...] Infusing as ordered . Ice provided. Normal [facility] THERAPY NTon 02-24-2023 THERAPY NT HNO ID: [id number] Author: Ree Gardner, PT Service: Physical Therapy Author Type: Physical Therapist Type: Therapy (PT/OT/Speech/Resp) Filed: 02/24/2023 4:39 PM Note Text: Physical Therapy Evaluation SERVICE DATE: 02/24/2023 SERVICE TIME: 1600 to 1633 ROOM: [place] [address] Recommended Discharge Disposition: Home Recommended Discharge Disposition [...] Surgery For Left Inguinal Hernia, S/P Attempted Huga-Avg-Cqbmk Repair Of Left Femoral Hernia, Excision Of Previously Implanted Mesh, Exploratory Laparotomy, Bilateral TAR, Implantation Of 30 x 30 cm Prolene Mesh 02/23/23 Reason for Hospital Admission: Scheduled Surgery For Left Inguinal Hernia, S/P Attempted Atfn-Zuc-Nghdm Repair Of Left Femoral Hernia, Excision Of [...] Comment Comments: In one level home in [place], [place] Assistance Available: PRN Entry To Home: [...] Reduced mobility-other Interventions Provided: Evaluation, Therapeutic Activity (91395) $ Evaluation-Moderate (52916) Billed Units: 1 unit Therapeutic Activity (10777) Treatment Minutes: 15 $ Therapeutic Activity (88212) Billed Units: 1 unit Training AND Education Provided in: Anatomy and Impact on Deficits, Assistive Device Use, Benefits of In-Hospital Mobility, Disease Specific Education, Expected Functional Level The Following Therapeutic Skills Were Used: Activity Dosing, Cues for Sequencing/Proper Technique for Activity, Cuing Verbal, Muscl (more content not included)... Normal [facility] THERAPY NT HNO ID: [id number] Author: VIKA Hall/Adriel Service: Occupational Therapy Author Type: Occupational Therapist Type: Therapy (PT/OT/Speech/Resp) Filed: 02/24/2023 1:09 PM Note Text: Occupational Therapy Evaluation SERVICE DATE: 02/24/2023 SERVICE TIME: 839 to 917 ROOM: [place] [address] Scheduled Surgery For Left Inguinal Hernia, S/P Attempted Zlov-Aok-Bbfbz Repair Of Left Femoral Hernia, Excision Of [...] Shoe Horn, Long Handled Sponge, Wheeled Walker, Superintendent Greens, Sock Aid, Shower Chair OT 6 Clicks Score: 17 Precautions/Activity Restrictions: Abdominal, Bed/Chair Alarm, Fall Risk, Lines/Tubes/Drains, Diet Restrictions, Other: See Comments (Clear Liquid Diet, 2L 02 this date) Current Hospital Course: Scheduled Surgery For Left Inguinal Hernia, S/P Attempted Ozkn-Erw-Kcahy Repair Of Left Femoral Hernia, Excision Of Previously Implanted Mesh, Exploratory Laparotomy, Bilateral TAR, Implantation Of 30 x 30 cm Prolene Mesh 02/23/23 Reason for Hospital Admission: Scheduled Surgery For Left Inguinal Hernia, S/P Attempted Rnie-Fqc-Qtsjk Repair Of Left Femoral Hernia, Excision Of [...] Comment Comments: In one level home in [place], [place] Assistance Available: PRN Entry To Home: [...] situation 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 Normal [facility] THERAPY NT HNO ID: [id number] Author: VIKA Hall/Adriel Service: Occupational Therapy Author Type: Occupational Therapist Type: Therapy (PT/OT/Speech/Resp) Filed: 02/24/2023 12:40 PM Note Text: OCCUPATIONAL THERAPY MISSED VISIT SERVICE DATE: 02/24/2023 SERVICE TIME: 0832 to 0832 ROOM: [place] [address] Patient not seen due to other service at bedside. Will see as able. SIGNATURE: VIKA Hall/Adriel PATIENT NAME: Yoni Ramirez DATE: February 24, 2023 TIME: 8:37 AM [facility] ANES PRE-OPon 02-23-2023 ANES PRE-OP HNO ID: [id number] Author: Stefanie Hitchcock APRN.CRNA Service: Anesthesiology Author Type: Nurse Hebrew Professor Type: Anesthesia Preprocedure Evaluation Filed: 02/23/2023 2:26 [...] 48 hours of Surgery/Procedure. SIGNATURE: Stefanie Hitchcock APRN.ANALOG DESIGN ENGINEER PATIENT NAME: Yoni Ramirez DATE: February 23, 2023 TIME: 2:24 PM CSN: [id number] [facility] PT EDon 02-23-2023 PT ED HNO ID: [id number] Author: Cecilia Jensen RN Service: ? Author [...] (RECOMMENDATION): None Electronically Signed By: Cecilia Jensen [facility] PT ED HNO ID: [id number] Author: Cecilia Jensen RN Service: ? Author [...] (RECOMMENDATION): None Electronically Signed By: Cecilia Jensen [facility] SURGICAL PATHOLOGYon 023 CASE REPORT [facility] Comment on above: Order Comment: Speci men Type: BLOOD SPECIMEN Ordering Facility: [facility] Address: [address] [place] [id number] Result Comment: Surg ical Pathology Report Case: [id number] Authorizing Provider: Donato Bishop MD Collected: 02/23/2023 05:38 PM Ordering Location: [facility] Received: 02/26/2023 08:20 AM Operating Room Pathologist: Keara Hernandez MD Specimen: RETROPERITONEUM BIOPSY, peritoneal mass Performed By: #### 2 4321-2, 63346-4 #### [facility] CLIA [id number] [address] [place] [address] CLINICAL HISTORY w/mesh Normal [facility] Comment on above: Order Comment: Speci men Type: BLOOD SPECIMEN Ordering Facility: [facility] Address: [address] [place] [address] Result Comment: Pre-op diagnosis: Unilateral recurrent inguinal hernia without obstruction or gangrene [K40.91] Performed By: #### 2 4321-2, 39233-3 #### [facility] CLIA [id number] [address] [place] [address] FINAL DIAGNOSIS Normal [facility] Comment on above: Order Comment: Speci men Type: BLOOD SPECIMEN Ordering Facility: [facility] Address: [address] [place] [address] Result Comment: Ramirez kellogg, biopsy: - Degenerating fibroadipose tissue with dystrophic calcification. Performed By: #### 2 4321-2, #### [facility] CLIA [id number] [address] [place] [address] FINAL PERFORMING LAB Normal [facility] Comment on above: Order Comment: Speci men Type: BLOOD SPECIMEN Ordering Facility: [facility] Address: [address] [place] [address] Result Comment: Diag nostic interpretation performed at [facility], [address] [place] [address] CLIA# [id number] Medical Receptionist Medical Assistant: Keara Hernandez M.D. Performed By: #### 2 432-2, 55722-9 #### [facility] CLIA [id number] [address] [place] [address] GROSS DESCRIPTION Normal [facility] Comment on above: Order Comment: Speci men Type: BLOOD SPECIMEN Ordering Facility: [facility] Address: [address] [place] [address] Result Comment: A. R ETROPERITONEUM BIOPSY Received [...] 2023 10:38 AM Gross examination performed at [facility], [address] [place] [address] CLIA # [id number] Performed By: #### 2 4321-2, 41065-7 #### [facility] CLIA [id number] [address] [place] [address] OF [place] TYPE + SCREENon 02-23-2023 ABO A Normal [facility] Comment on above: Order Comment: Speci men Type: BLOOD SPECIMENOrdering Facility: [facility] Address: [address] [place] [address] Performed By: #### T SCR ####[facility] [id number] [address] Performed By: #### C ONABO ####[facility] [id number] [address] [place] HISTORICAL AB SCR STATUS Negative [facility] Comment on above: Order Comment: Speci men Type: BLOOD SPECIMENOrdering Facility: [facility] Address: [address] [place] [address] Performed By: #### T SCR ####[facility] [id number] [address] OF [place] Rh Nom (Bld) Positive [facility] Comment on above: Order Comment: Speci men Type: BLOOD SPECIMENOrdering Facility: [facility] Address: [address] [place] [address] Performed By: #### T SCR ####[facility] [id number] [place] [id number] [facility] Performed By: #### C ONABO ####[facility] [id number] [place] [id number] [facility] TYPE AND SCREEN EXPIRATION 02/26/2023 23:59 Normal [facility] Comment on above: Order Comment: Speci men Type: BLOOD SPECIMENOrdering Facility: [facility] Address: [address] [place] [address] Performed By: #### T SCR ####[facility] [id number] [place] [id number] [facility] CBC AUTO DIFFon 02-21-2023 BASO # 0.0 103/ul Normal 0.0-0.1 [facility] Comment on above: Performed By: #### C BC ####[facility] [address] [place], [place] [address]Dr. Alex Eddy Basophils/100 WBC (Bld) 0.5 % Normal 0.2-2.0 [facility] Comment on above: Performed By: #### C BC ####[facility] [address] [place], [place] [address]Dr. Alex Eddy EO # 0.2 103/ul Normal 0.0-0.7 [facility] Comment on above: Performed By: #### C BC ####[facility] [address] [place] [address]Dr. Alex Eddy Eosinophils/100 WBC (Bld) 4.0 % Normal 0.9-7.0 [facility] Comment on above: Performed By: #### C BC ####[facility] [address] [place], [place] [address]Dr. Alex Eddy Erythrocyte distribution width (RBC) [Ratio] 16.3 % Critically high 11.0-15.0 [facility] Comment on above: Performed By: #### C BC ####[facility] [address] [place] [address]Dr. Alex Eddy Hematocrit (Bld) [Volume fraction] 43.3 % Normal 42.0-54.0 [facility] Comment on above: Performed By: #### C BC ####[facility] [address] [place] [address]Dr. Alex Eddy Hemoglobin (Bld) [Mass/Vol] 14.0 g/dL Normal 14.0-18.0 [facility] Comment on above: Performed By: #### C BC ####[facility] [address] [place] [address]Dr. Alex Eddy IG # 0.02 10e3/ul Normal 0.00-0.03 [facility] Comment on above: Performed By: #### C BC ####[facility] [address] [place] [address]Dr. Alex Eddy IG % 0.4 % Normal 0.0-0.5 [facility] Comment on above: Performed By: #### C BC ####[facility] [address] [place] [address]Dr. Gretelmickey Eddy LYMPH # 1.1 103/ul Critically low 1.2-3.8 [facility] Comment on above: Performed By: #### C BC ####[facility] [address] [place] [address]DrBrian Gretelmickey Eddy Lymphocytes/100 WBC (Bld) 19.5 % Critically low 20.5-60.0 [facility] Comment on above: Performed By: #### C BC ####[facility] [address]vb[address] [place] [address]DrBrian Gretelmickey Eddy MANUAL DIFF REQ NO Normal [facility] Comment on above: Performed By: #### C BC ####[facility] [address] [place] [address]DrBrian Gretelmickey Eddy MCH (RBC) [Entitic mass] 30.1 pg Normal 25.9-34.0 [facility] Comment on above: Performed By: #### C BC ####[facility] [address] [place], [place] [address]Dr. Alex Eddy MCHC (RBC) [Mass/Vol] 32.3 g/dL Normal 29.9-35.2 [facility] Comment on above: Performed By: #### C BC ####[facility] [address] [place] [address]Dr. Alex Surjit MCV (RBC) [Entitic vol] 93.1 fL Normal 80.0-94.0 [facility] Comment on above: Performed By: #### C BC ####[facility] [address] [place] [address]Dr. Alex Surjit MONO # 0.7 103/ul Normal 0.3-0.8 [facility] Comment on above: Performed By: #### C BC ####[facility] [address] [place] [address]Dr. Alex Eddy Monocytes/100 WBC (Bld) 11.9 % Normal 1.7-12.0 [facility] Comment on above: Performed By: #### C BC ####[facility] [address] [place] [address]Dr. Alex Surjit NEUT # 3.5 103/ul Normal 1.4-6.5 [facility] Comment on above: Performed By: #### C BC ####[facility] [address]bx[address] [place] [address]Dr. Alex Surjit Neutrophils/100 WBC (Bld) 63.7 % Normal 43.0-75.0 [facility] Comment on above: Performed By: #### C BC ####[facility] [address] [place] [address]Dr. Alex Surjit Platelet mean volume (Bld) [Entitic vol] 10.9 fL Normal 9.5-13.5 [facility] Comment on above: Performed By: #### C BC ####[facility] [address] [place] [address]Dr. Gretelmickey Surjit PLT 168 103/ul Normal 150-450 [facility] Comment on above: Performed By: #### C BC ####[facility] [address] [place] [id number]. Alex Eddy RBC 4.65 106/ul Critically low 4.70-6.10 [facility] Comment on above: Performed By: #### C BC ####[facility] [address] [place], [place] [address]Vk. Alex Eddy WBC 5.5 103/ul Normal 4.0-11.0 [facility] Comment on above: Performed By: #### C BC ####[facility] [address] [place] [id number]. Alex Eddy CRPon 02-21-2023 CRP 0.3 mg/dL Normal <=1.0 [facility] Comment on above: Performed By: #### C RP #### [facility] [address] [place] [address] [address] Alex Eddy SED RATE WESTERGRENon 2022 SED RATE 37 mm/hr Critically high <=20 [facility] Comment on above: Performed By: #### S EDR #### [facility] [address] [place] [address] [address] Alex Eddy CBC W Auto Differential pane l (Bld)on 02-14-2023 Basophils (Bld) [#/Vol] 0.05 10*3/uL <0.11 k/uL [facility] Basophils/100 WBC (Bld) 0.7 % [facility] Differential cell count method Nom (Bld) Auto [facility] Eosinophils (Bld) [#/Vol] 0.29 10*3/uL <0.46 k/uL [facility] Eosinophils/100 WBC (Bld) 4.3 % [facility] Erythrocyte distribution width (RBC) [Ratio] 16.7 % High 11.5 - 15.0 % [facility] Hematocrit (Bld) [Volume fraction] 44.7 % 39.0 - 51.0 % [facility] Hemoglobin (Bld) [Mass/Vol] 14.4 g/dL 13.0 - 17.0 g/dL [facility] Immature granulocytes (Bld) [#/Vol] 0.07 10*3/uL <0.10 k/uL [facility] Immature granulocytes/100 WBC (Bld) 1.0 % [facility] Lymphocytes (Bld) [#/Vol] 1.37 10*3/uL 1.00 - 4.00 k/uL [facility] Lymphocytes/100 WBC (Bld) 20.3 % [facility] MCH (RBC) [Entitic mass] 30.3 pg 26.0 - 34.0 pg [facility] MCHC (RBC) [Mass/Vol] 32.2 g/dL 30.5 - 36.0 g/dL [facility] MCV (RBC) [Entitic vol] 93.9 fL 80.0 - 100.0 fL [facility] Monocytes (Bld) [#/Vol] 0.91 10*3/uL High <0.87 k/uL [facility] Monocytes/100 WBC (Bld) 13.5 % [facility] Neutrophils (Bld) [#/Vol] 4.06 10*3/uL 1.45 - 7.50 k/uL [facility] Neutrophils/100 WBC (Bld) 60.2 % [facility] Nucleated RBC (Bld) [#/Vol] <0.01 k/uL [facility] Nucleated RBC/100 WBC (Bld) [Ratio] 0.0 /100 WBC [facility] Platelet mean volume (Bld) [Entitic vol] 10.8 fL 9.0 - 12.7 fL [facility] Platelets (Bld) [#/Vol] 191 10*3/uL 150 - 400 k/uL [facility] RBC (Bld) [#/Vol] 4.76 10*6/uL 4.20 - 6.00 m/uL [facility] WBC (Bld) [#/Vol] 6.75 10*3/uL 3.70 - 11.00 k/uL [facility] MRI PELVIS WO/W IVCONon 02-2 [...] Left hernia contains a loop of colon [employer]: ROSANA Transcribe Date/Time: Dec 07 2022 9:43A Dictated by : EVANS ADAM MD This examination was interpreted and the report reviewed and electronically signed by: EVANS ADAM MD on Dec 07 2022 10:19AM EST [id number] Normal [facility] NURSING PROGon 12-06-2022 NURSING PROG HNO ID: [id number] Author: Melanie Pierre RN Service: Nursing Author [...] DATE: December 06, 2022 TIME: 9:07 AM [facility] ALLIED HEALTHon 12-04-2022 ALLIED HEALTH HNO ID: [id number] Author: ROSY Campoverde Service: Radiology Author Type: Skin Toggler Type: Allied Health Filed: 12/04/2022 4:34 PM [...] ROSY Campoverde December 04, 2022 4:33 PM [facility] MRI PELVIS WO/W IVCONon 11-16 MRI PELVIS WO/W IVCON * * *Final Report* * * DATE OF EXAM: Dec 04 2022 4:56PM [facility] 0742 - MRI PELVIS WO/W IVCON [...] Left hernia contains a loop of colon [employer]: [facility] Transcribe Date/Time: Dec 07 2022 9:43A Dictated by : EVANS ADAM MD This examination was interpreted and the report reviewed and electronically signed by: EVANS ADAM MD on Dec 07 2022 10:19AM EST [id number] Normal [facility] NURSING PROGon 12-04-2022 NURSING PROG HNO ID: [id number] Author: Sima Craig RN Service: Nursing Author [...] December 04, 2022 TIME: 2:36 PM Normal [facility] AFP (TUMOR MARKER)on 023 AFP, Serum, Tumor Marker <1.8 Normal 0.0-8.4 [facility] Comment on above: Result Comment: Emerging [employer] Electrochemiluminescence Immunoassay (ECLIA) . Values obtained with different assay methods or kits cannot be used interchangeably. Results cannot be interpreted as absolute evidence of the presence or absence of malignant disease. . This test is not interpretable in females. Performed By: #### A FP. #### [facility] [address] [place] [address] Dr. Alex Eddy HCG QUANT TUMOR MARKERon HCG QNT TUMOR MARKER <1 Normal 0-3 [facility] Comment on above: Result Comment: [employer]ging [employer] Electrochemiluminescence Immunoassay (ECLIA) . The [employer] [...] developed and its performance characteristics determined by [employer]. It has not been cleared or approved by the Food and Drug Administration for use as a tumor marker. . This test is not interpretable as a tumor marker in females. Performed By: #### H CGTMOR #### [facility] [address] [place] [address] Dr. Alex Eddy CREATININEon 11-06-2022 Creatinine [Mass/Vol] 0.60 mg/dL Critically low 0.70-1.30 [facility] Comment on above: Performed By: #### C SILVANA #### [facility] [address] [place] [address] [address] Alex Eddy EGFR-AF ARMENIAN >60 Normal >=60 [facility] Comment on above: Performed By: #### C SILVANA #### [facility] [address] [place] [address] [address] Alex Eddy EGFR-NON AF ARMENIAN >60 Normal >=60 [facility] Comment on above: Performed By: #### C SILVANA #### [facility] [address] [place], [place] [address] CHEST W CONon [...] MIKE LYNCH Date: 2022-11-06 15:28 Normal [facility] LDHon 11-06-2022 LDH 158 U/L Normal 85-227 [facility] Comment on above: Performed By: #### L #### [facility] [address] [place] [address] Dr. Alex Eddy US SCROTUMon 10-11-2022 US [...] by: CASSIDY SAMUEL Date: 2022-10-11 16:29 Normal [facility] US SCROTUMon 08-06-2022 US SCROTUM EXAMINATION: [...] by: CASSIDY SAMUEL Date: 2022-08-06 16:20 Normal [facility] Vital Signs Date Time Vital Sign Value Performing Clinician Facility 10-29-2024 11:09-0500 Body height 177.8 cm Don Joseph DO Work Phone: [facility] 10-29-2024 11:09-0500 Body mass index (BMI) [Ratio] 33.4 kg/m2 Don Joseph DO Work Phone: [facility] 10-29-2024 11:09-0500 Body weight 105.6 kg Don Joseph DO Work Phone: [facility] 10-29-2024 11:09-0500 Diastolic blood pressure 70 mm[Hg] Don Joseph DO Work Phone: [facility] 10-29-2024 11:09-0500 Heart rate 60 /min Don Joseph DO Work Phone: [facility] 10-29-2024 11:09-0500 Systolic blood pressure 132 mm[Hg] Don Joseph DO Work Phone: [facility] 10-27-2024 15:23-0500 Body height 177.8 cm [facility] 10-27-2024 15:23-0500 Body mass index (BMI) [Ratio] 33.3 kg/m2 [facility] 10-27-2024 15:23-0500 Body weight 105.46 kg [facility] 10-27-2024 15:23-0500 Diastolic blood pressure 82 mm[Hg] [facility] 10-27-2024 15:23-0500 Heart rate 59 /min [facility] 10-27-2024 15:23-0500 Respiratory rate 12 /min [facility] 10-27-2024 15:23-0500 Systolic blood pressure 181 mm[Hg] [facility] 09-05-2024 14:42-0500 Body height 177.8 cm [facility] 09-05-2024 14:42-0500 Body mass index (BMI) [Ratio] 32.8 kg/m2 [facility] 09-05-2024 14:42-0500 Body weight 103.98 kg [facility] 09-05-2024 14:42-0500 Diastolic blood pressure 66 mm[Hg] [facility] 09-05-2024 14:42-0500 Heart rate 56 /min [facility] 09-05-2024 14:42-0500 Respiratory rate 12 /min [facility] 09-05-2024 14:42-0500 Systolic blood pressure 135 mm[Hg] [facility] 07-30-2024 15:50-0400 Body height 177.8 cm DO Bro Ball Work Phone: [facility] 07-30-2024 15:50-0400 Body mass index (BMI) [Ratio] 32.4 kg/m2 DO Bro Ball Work Phone: [facility] 07-30-2024 15:50-0400 Body weight 102.51 kg DO Bro Ball Work Phone: [facility] 07-30-2024 15:50-0400 Diastolic blood pressure 84 mm[Hg] DO Bro Ball Work Phone: [facility] 07-30-2024 15:50-0400 Heart rate 62 /min DO Bro Ball Work Phone: [facility] 07-30-2024 15:50-0400 Respiratory rate 12 /min DO Bro Ball Work Phone: [facility] 07-30-2024 15:50-0400 Systolic blood pressure 161 mm[Hg] DO Bro Ball Work Phone: [facility] 07-24-2024 17:24-0400 Diastolic blood pressure 49 mm[Hg] DO Bro Ball Work Phone: [facility] 07-24-2024 17:24-0400 Heart rate 56 /min DO Bro Ball Work Phone: [facility] 07-24-2024 17:24-0400 Respiratory rate 16 /min DO Bro Ball Work Phone: [facility] 07-24-2024 17:24-0400 SaO2% (BldA) [Mass fraction] 91 % DO Bro Ball Work Phone: [facility] 07-24-2024 17:24-0400 Systolic blood pressure 94 mm[Hg] DO Bro Ball Work Phone: [facility] 07-24-2024 12:22-0400 Body height 175.26 cm DO Bro Ball Work Phone: [facility] 07-24-2024 12:22-0400 Body temperature 97.6 [degF] DO Bro Ball Work Phone: [facility] 07-24-2024 12:22-0400 Body weight 102 kg DO Bro Ball Work Phone: [facility] 07-22-2024 11:14-0400 Diastolic blood pressure 60 mm[Hg] Don Joseph DO Work Phone: [facility] 07-22-2024 11:14-0400 Systolic blood pressure 138 mm[Hg] Don Joseph DO Work Phone: [facility] 07-22-2024 11:130400 Body height 177.8 cm Don Joseph DO Work Phone: [facility] 07-22-2024 11:13-0400 Body mass index (BMI) [Ratio] 32.46 kg/m2 Don Joseph DO Work Phone: [facility] 07-22-2024 11:130400 Body weight 102.6 kg Don Joseph DO Work Phone: [facility] 07-22-2024 11:13-0400 Heart rate 51 /min Don Joseph DO Work Phone: [facility] 07-18-2024 11:31-0400 Body height 177.8 cm [facility] 07-18-2024 11:31-0400 Body mass index (BMI) [Ratio] 32.3 kg/m2 [facility] 07-18-2024 11:31-0400 Body weight 102.28 kg [facility] 07-18-2024 11:31-0400 Diastolic blood pressure 66 mm[Hg] [facility] 07-18-2024 11:31-0400 Heart rate 56 /min [facility] 07-18-2024 11:31-0400 Respiratory rate 12 /min [facility] 07-18-2024 11:31-0400 Systolic blood pressure 125 mm[Hg] [facility] 07-02-2024 16:090400 Body height 177.8 cm [facility] 07-02-2024 16:09-0400 Body mass index (BMI) [Ratio] 32.1 kg/m2 [facility] 07-02-2024 16:090400 Body weight 101.66 kg [facility] 07-02-2024 16:09-0400 Diastolic blood pressure 70 mm[Hg] [facility] 07-02-2024 16:09-0400 Heart rate 59 /min [facility] 07-02-2024 16:09-0400 Respiratory rate 12 /min [facility] 07-02-2024 16:09-0400 Systolic blood pressure 143 mm[Hg] [facility] 06-04-2024 09:21-0400 Diastolic blood pressure 78 mm[Hg] Radha Lue [facility] 06-04-2024 09:21-0400 Mean blood pressure 99 mm[Hg] Radha Lue [facility] 06-04-2024 09:21-0400 Systolic blood pressure 142 mm[Hg] Radha Lue [facility] 06-04-2024 09:03-0400 Blood Pressure Location Radha Lue [facility] 06-04-2024 09:03-0400 Heart rate 56 /min Radha Lue [facility] 06-04-2024 09:03-0400 Systolic blood pressure 146 mm[Hg] Radha Lue [facility] 05-20-2024 12:58-0400 Body mass index (BMI) [Ratio] 31.95 kg/m2 TUNG Hernandez MD Work Phone: [facility] 05-20-2024 12:58-0400 Body temperature 98.4 [degF] TUNG Hernandez MD Work Phone: [facility] 05-20-2024 12:58-0400 Body weight 101 kg TUNG Hernandez MD Work Phone: [facility] 05-20-2024 12:58-0400 Diastolic blood pressure 80 mm[Hg] TUNG Hernandez MD Work Phone: [facility] 05-20-2024 12:58-0400 Heart rate 59 /min TUNG Hernandez MD Work Phone: [facility] 05-20-2024 12:58-0400 Respiratory rate 18 /min TUNG Hernandez MD Work Phone: [facility] 05-20-2024 12:58-0400 SaO2% (BldA) [Mass fraction] 96 % TUNG Hernandez MD Work Phone: [facility] 05-20-2024 12:58-0400 Systolic blood pressure 147 mm[Hg] TUNG Hernandez MD Work Phone: [facility] 04-01-2024 10:04-0400 Body temperature 97 [degF] Donato Bishop MD Work Phone: [facility] 04-01-2024 10:04-0400 Diastolic blood pressure 67 mm[Hg] Donato Bishop MD Work Phone: [facility] 04-01-2024 10:04-0400 Heart rate 58 /min Donato Bishop MD Work Phone: [facility] 04-01-2024 10:04-0400 SaO2% (BldA) [Mass fraction] 96 % Donato Bishop MD Work Phone: [facility] 04-01-2024 10:04-0400 Systolic blood pressure 162 mm[Hg] Donato Bishop MD Work Phone: [facility] 02-12-2024 10:44-0400 Body height 177.8 cm [facility] 02-12-2024 10:44-0400 Body mass index (BMI) [Ratio] 32.8 kg/m2 [facility] 02-12-2024 10:44-0400 Body weight 103.92 kg [facility] 02-12-2024 10:44-0400 Diastolic blood pressure 71 mm[Hg] [facility] 02-12-2024 10:44-0400 Heart rate 53 /min [facility] 02-12-2024 10:44-0400 Respiratory rate 12 /min [facility] 02-12-2024 10:44-0400 Systolic blood pressure 124 mm[Hg] [facility] 11-28-2023 10:32-0500 Blood Pressure Location Radha Lue [facility] 11-28-2023 10:32-0500 Diastolic blood pressure 84 mm[Hg] Radha Lue [facility] 11-28-2023 10:32-0500 Heart rate 106 /min Radha Lue [facility] 11-28-2023 10:32-0500 Respiratory rate 16 /min Radha Lue [facility] 11-28-2023 10:32-0500 Systolic blood pressure 135 mm[Hg] Radha Lue [facility] 11-20-2023 13:16-0500 Body temperature 97.3 [degF] TUNG Hernandez MD Work Phone: [facility] 11-20-2023 13:16-0500 Body weight 103.9 kg TUNG Hernandez MD Work Phone: [facility] 11-20-2023 13:16-0500 Diastolic blood pressure 76 mm[Hg] TUNG Hernandez MD Work Phone: [facility] 11-20-2023 13:16-0500 Heart rate 59 /min TUNG Hernandez MD Work Phone: [facility] 11-20-2023 13:16-0500 Respiratory rate 16 /min TUNG Hernandez MD Work Phone: [facility] 11-20-2023 13:16-0500 SaO2% (BldA) [Mass fraction] 96 % NA Jose WHARTON Work Phone: [facility] 11-20-2023 13:16-0500 Systolic blood pressure 145 mm[Hg] NA Jose WHARTON Work Phone: [facility] 10-11-2023 11:00-0500 Body height 177.8 cm Bro INRIX Other [employer] Other 10-11-2023 11:00-0500 Body mass index (BMI) [Ratio] 32.51 kg/m2 Bro INRIX Other [employer] Other 10-11-2023 11:00-0500 Body weight 102.79 kg Bro Ball Other [employer] Other 10-11-2023 11:00-0500 Diastolic blood pressure 76 mm[Hg] Bro IN[employer] Other [employer] Other 10-11-2023 11:00-0500 Respiratory rate 12 /min Bro IN[employer] Other [employer] Other 10-11-2023 11:00-0500 Systolic blood pressure 167 mm[Hg] Bro Ball Other [employer] Other 08-15-2023 08:46-0400 Blood Pressure Location Radha Lue [facility] 08-15-2023 08:46-0400 Diastolic blood pressure 76 mm[Hg] Radha Lue [facility] 08-15-2023 08:46-0400 Heart rate 80 /min Radha Lue [facility] 08-15-2023 08:46-0400 Respiratory rate 16 /min Radha Lue [facility] 08-15-2023 08:46-0400 Systolic blood pressure 132 mm[Hg] Radha Whitten [facility] 07-13-2023 10:00-0400 Body height 177.8 cm Bro Ball Other [employer] Other 07-13-2023 10:00-0400 Body mass index (BMI) [Ratio] 32.57 kg/m2 Bro Ball Other [employer] Other 07-13-2023 10:00-0400 Body weight 102.97 kg Bro Ball Other [employer] Other 07-13-2023 10:00-0400 Diastolic blood pressure 70 mm[Hg] Bro Ball Other [employer] Other 07-13-2023 10:00-0400 Respiratory rate 12 /min Bro Ball Other [employer] Other 07-13-2023 10:00-0400 Systolic blood pressure 143 mm[Hg] Bro Ball Other [employer] Other 05-15-2023 13:24-0400 Body temperature 97.5 [degF] TUNG Hernandez MD Work Phone: [facility] 05-15-2023 13:24-0400 Body weight 103.42 kg TUNG Hernandez MD Work Phone: [facility] 05-15-2023 13:24-0400 Diastolic blood pressure 77 mm[Hg] TUNG Hernandez MD Work Phone: [facility] 05-15-2023 13:24-0400 Heart rate 55 /min TUNG Hernandez MD Work Phone: [facility] 05-15-2023 13:24-0400 Respiratory rate 16 /min TUNG Hernandez MD Work Phone: [facility] 05-15-2023 13:24-0400 SaO2% (BldA) [Mass fraction] 96 % TUNG Hernandez MD Work Phone: [facility] 05-15-2023 13:24-0400 Systolic blood pressure 153 mm[Hg] TUNG Hernandez MD Work Phone: [facility] 04-11-2023 13:30-0400 Body height 177.8 cm Bro Ball Other [employer] Other 04-11-2023 13:30-0400 Body mass index (BMI) [Ratio] 32.88 kg/m2 Bro Ball Other [employer] Other 04-11-2023 13:30-0400 Body weight 103.97 kg Bro Ball Other [employer] Other 04-11-2023 13:30-0400 Diastolic blood pressure 72 mm[Hg] Bro Ball Other [employer] Other 04-11-2023 13:30-0400 Respiratory rate 12 /min Bro Ball Other [employer] Other 04-11-2023 13:30-0400 Systolic blood pressure 124 mm[Hg] Bro Ball Other [employer] Other 02-21-2023 15:15-0400 Body height 177.8 cm Bro Ball Other [employer] Other 02-21-2023 15:15-0400 Body mass index (BMI) [Ratio] 34.89 kg/m2 Bro Ball Other [employer] Other 02-21-2023 15:15-0400 Body weight 110.32 kg Bro Ball Other [employer] Other 02-21-2023 15:15-0400 Diastolic blood pressure 76 mm[Hg] Bro Ball Other [employer] Other 02-21-2023 15:15-0400 Respiratory rate 12 /min Bro Ball Other [employer] Other 02-21-2023 15:15-0400 Systolic blood pressure 165 mm[Hg] Bro Ball Other [employer] Other 02-14-2023 13:30-0400 Body height 177.8 cm Pacc 2 Work Phone: [facility] 02-14-2023 13:30-0400 Body temperature 98.1 [degF] Pacc 2 Work Phone: [facility] 02-14-2023 13:30-0400 Body weight 109.77 kg Pacc 2 Work Phone: [facility] 02-14-2023 13:30-0400 Diastolic blood pressure 81 mm[Hg] Pacc 2 Work Phone: [facility] 02-14-2023 13:30-0400 Heart rate 61 /min Pacc 2 Work Phone: [facility] 02-14-2023 13:30-0400 Respiratory rate 16 /min Pacc 2 Work Phone: [facility] 02-14-2023 13:30-0400 SaO2% (BldA) [Mass fraction] 96 % Pacc 2 Work Phone: [facility] 02-14-2023 13:30-0400 Systolic blood pressure 164 mm[Hg] Pacc 2 Work Phone: [facility] 02-05-2023 17:00-0400 Body height 177.8 cm Bro Ball Other [employer] Other 02-05-2023 17:00-0400 Body mass index (BMI) [Ratio] 34.89 kg/m2 Bro Ball Other [employer] Other 02-05-2023 17:00-0400 Body weight 110.32 kg Bro Ball Other [employer] Other 02-05-2023 17:00-0400 Diastolic blood pressure 79 mm[Hg] Bro Ball Other [employer] Other 02-05-2023 17:00-0400 Respiratory rate 12 /min Bro Ball Other [employer] Other 02-05-2023 17:00-0400 Systolic blood pressure 175 mm[Hg] Bro Ball Other [employer] Other 01-29-2023 11:00-0400 Body height 177.8 cm Bro Ball Other [employer] Other 01-29-2023 11:00-0400 Body mass index (BMI) [Ratio] 34.89 kg/m2 Bro Ball Other [employer] Other 01-29-2023 11:00-0400 Body weight 110.32 kg Bro Ball Other [employer] Other 01-29-2023 11:00-0400 Diastolic blood pressure 80 mm[Hg] Bro Ball Other [employer] Other 01-29-2023 11:00-0400 Respiratory rate 12 /min Bro Ball Other [employer] Other 01-29-2023 11:00-0400 Systolic blood pressure 166 mm[Hg] Bro Ball Other [facility] Other 01-24-2023 08:41-0400 Blood Pressure Location CIERRA YESSENIA [facility] 01-24-2023 08:41-0400 Diastolic blood pressure 69 mm[Hg] CIERRA YESSENIA [facility] 01-24-2023 08:41-0400 Heart rate 54 /min CIERRA YESSENIA [facility] 01-24-2023 08:41-0400 Systolic blood pressure 142 mm[Hg] CIERRA YESSENIA [facility] 01-11-2023 09:34-0400 Blood Pressure Location CIERRA YESSENIA [facility] 01-11-2023 09:34-0400 Diastolic blood pressure 82 mm[Hg] CIERRA YESSENIA [facility] 01-11-2023 09:34-0400 Heart rate 52 /min CIERRA YESSENIA [facility] 01-11-2023 09:34-0400 Systolic blood pressure 172 mm[Hg] CIERRA YESSENIA [facility] 12-28-2022 09:17-0400 Blood Pressure Location CIERRA YESSENIA [facility] 12-28-2022 09:17-0400 Diastolic blood pressure 66 mm[Hg] CIERRA YESSENIA [facility] 12-28-2022 09:17-0400 Heart rate 71 /min CIERRA YESSENIA [facility] 12-28-2022 09:17-0400 Systolic blood pressure 128 mm[Hg] CIERRA ZHU [facility] 12-26-2022 10:11-0400 Body height 177.8 cm Donato Bishop MD Work Phone: [facility] 12-26-2022 10:11-0400 Body temperature 97.3 [degF] Donato Bishop MD Work Phone: [facility] 12-26-2022 10:11-0400 Body weight 110.22 kg Donato Bishop MD Work Phone: [facility] 12-26-2022 10:11-0400 Diastolic blood pressure 61 mm[Hg] Donato Bishop MD Work Phone: [facility] 12-26-2022 10:11-0400 Heart rate 57 /min Donato Bishop MD Work Phone: [facility] 12-26-2022 10:11-0400 Respiratory rate 19 /min Donato Bishop MD Work Phone: [facility] 12-26-2022 10:11-0400 SaO2% (BldA) [Mass fraction] 97 % Donato Bishop MD Work Phone: [facility] 12-26-2022 10:11-0400 Systolic blood pressure 179 mm[Hg] Donato Bishop MD Work Phone: [facility] 12-14-2022 09:24-0500 Blood Pressure Location CIERRA ZHU [facility] 12-14-2022 09:24-0500 Diastolic blood pressure 71 mm[Hg] CIERRA ZHU [facility] 12-14-2022 09:24-0500 Systolic blood pressure 136 mm[Hg] CIERRA ZHU [facility] 12-12-2022 13:03-0500 Body temperature 96.4 [degF] TUNG Hernandez MD Work Phone: [facility] 12-12-2022 13:03-0500 Body weight 110.68 kg TUNG Hernandez MD Work Phone: [facility] 12-12-2022 13:03-0500 Diastolic blood pressure 74 mm[Hg] TUNG Hernandez MD Work Phone: [facility] 12-12-2022 13:03-0500 Heart rate 57 /min TUNG Hernandez MD Work Phone: [facility] 12-12-2022 13:03-0500 Respiratory rate 18 /min TUNG Hernandez MD Work Phone: [facility] 12-12-2022 13:03-0500 SaO2% (BldA) [Mass fraction] 98 % TUNG Hernandez MD Work Phone: [facility] 12-12-2022 13:03-0500 Systolic blood pressure 169 mm[Hg] TUNG Hernandez MD Work Phone: [facility] 11-30-2022 09:18-0500 Blood Pressure Location CIERRA ZHU [facility] 11-30-2022 09:18-0500 Diastolic blood pressure 58 mm[Hg] CIERRA ZHU [facility] 11-30-2022 09:18-0500 Heart rate 57 /min CIERRA ZHU [facility] 11-30-2022 09:18-0500 Systolic blood pressure 128 mm[Hg] CIERRA ZHU [facility] 11-23-2022 08:37-0500 Blood Pressure Location CIERRA ZHU [facility] 11-23-2022 08:37-0500 Diastolic blood pressure 68 mm[Hg] CIERRA ZHU [facility] 11-23-2022 08:37-0500 Heart rate 57 /min CIERRA ZHU [facility] 11-23-2022 08:37-0500 Systolic blood pressure 127 mm[Hg] CIERRA ZHU [facility] 11-09-2022 12:58-0500 Body temperature 96.69 [degF] TUNG Hernandez MD Work Phone: [facility] 11-09-2022 12:58-0500 Body weight 111.58 kg TUNG Hernandez MD Work Phone: [facility] 11-09-2022 12:58-0500 Diastolic blood pressure 75 mm[Hg] TUNG Hernandez MD Work Phone: [facility] 11-09-2022 12:58-0500 Heart rate 62 /min TUNG Hernandez MD Work Phone: [facility] 11-09-2022 12:58-0500 Respiratory rate 18 /min TUNG Hernandez MD Work Phone: [facility] 11-09-2022 12:58-0500 SaO2% (BldA) [Mass fraction] 98 % TUNG Hernandez MD Work Phone: [facility] 11-09-2022 12:58-0500 Systolic blood pressure 174 mm[Hg] TUNG Hernandez MD Work Phone: [facility] 11-08-2022 10:58-0500 Blood Pressure Location Radha Whitten [facility] 11-08-2022 10:58-0500 Diastolic blood pressure 79 mm[Hg] Radha Lue [facility] 11-08-2022 10:58-0500 Heart rate 68 /min Radha Lue [facility] 11-08-2022 10:58-0500 Systolic blood pressure 139 mm[Hg] Radha Lue [facility] 10-04-2022 08:32-0500 Blood Pressure Location Radha Lue [facility] 10-04-2022 08:32-0500 Diastolic blood pressure 66 mm[Hg] Radha Lue [facility] 10-04-2022 08:32-0500 Heart rate 57 /min Radha Lue [facility] 10-04-2022 08:32-0500 Systolic blood pressure 151 mm[Hg] Radha Lue [facility] 07-13-2022 13:20-0400 Body temperature 96.69 [degF] TUNG Hernandez MD Work Phone: [facility] 07-13-2022 13:20-0400 Body weight 108.41 kg TUNG Hernandez MD Work Phone: [facility] 07-13-2022 13:20-0400 Diastolic blood pressure 81 mm[Hg] TUNG Hernandez MD Work Phone: [facility] 07-13-2022 13:20-0400 Heart rate 56 /min TUNG Hernandez MD Work Phone: [facility] 07-13-2022 13:20-0400 Respiratory rate 18 /min TUNG Hernandez MD Work Phone: [facility] 07-13-2022 13:20-0400 SaO2% (BldA) [Mass fraction] 96 % TUNG Hernandez MD Work Phone: [facility] 07-13-2022 13:20-0400 Systolic blood pressure 164 mm[Hg] TUNG Hernandez MD Work Phone: [facility] 03-28-2022 08:36-0400 Blood Pressure Location Sushant Freedman Jr. [facility] 03-28-2022 08:36-0400 Diastolic blood pressure 78 mm[Hg] Sushant Freedman Jr. [facility] 03-28-2022 08:36-0400 Heart rate 62 /min Sushant Freedman Jr. [facility] 03-28-2022 08:36-0400 Respiratory rate 16 /min Sushant Freedman Jr. [facility] 03-28-2022 08:36-0400 Systolic blood pressure 144 mm[Hg] Sushant Freedman Jr. [facility] Encounters Encounter Date Encounter Type Care Provider Facility Start: 12-10-2024 ambulatory Radha Whitten Facility:[facility] Start: 11-11-2024 End: 11-11-2024 ambulatory BRO CHAVEZ Facility:[facility] Start: 10-29-2024 End: 10-29-2024 ambulatory [facility] Start: 10-29-2024 End: 10-29-2024 [facility] Comment on above: Abnormal nuclear str ess test; Chest pain, unspecified type; Coronary artery disease involving [place] coronary artery of [place] heart with angina pectoris; Primary hypertension; Pure hypercholesterolemia; PVC (premature ventricular contraction); RBBB; Obstructive sleep apnea syndrome; BMI 33.0-33.9,adult; Edema, unspecified type Start: 10-27-2024 End: 10-27-2024 ambulatory [facility] Work Phone: Start: 10-27-2024 End: 10-27-2024 Patient encounter procedure [facility] Work Phone: Start: 10-21-2024 Non-patient / Non-visit [facility] Work Phone: Start: 10-10-2024 Patient encounter procedure [facility] Start: 09-05-2024 End: 09-05-2024 Patient encounter procedure [facility] Work Phone: Start: 07-30-2024 End: 07-30-2024 ambulatory DO Bro Ball Work Phone: [facility] Work Phone: Start: 07-30-2024 End: 07-30-2024 Patient encounter procedure DO Bro Ball Work Phone: [facility] Phys[facility] Work Phone: Start: 07-24-2024 End: 07-24-2024 Admission to same day surgery center DO Bro Ball Work Phone: [facility] Work Phone: Start: 07-24-2024 End: 07-24-2024 ambulatory DO Bro Ball Work Phone: [facility] Work Phone: Start: 07-23-2024 End: 07-23-2024 Patient encounter procedure DO Bro Ball Work Phone: [facility] Work Phone: Start: 07-23-2024 End: 07-23-2024 ambulatory DO [facility] Work Phone: [facility] Work Phone: Start: 07-23-2024 Encounter for preprocedural laboratory examination Tory Norberto Jake [facility] Start: 07-22-2024 End: 07-22-2024 Office consultation new/estab patient 80 min Don Joseph DO Work Phone: [facility] Comment on above: Abnormal nuclear str ess test; Chest pain, unspecified type; Bradycardia; RBBB; Primary hypertension; Pure hypercholesterolemia; Obstructive sleep apnea syndrome; BMI 32.0-32.9,adult Start: 07-22-2024 End: 07-22-2024 ambulatory [facility] Start: 07-18-2024 End: 07-18-2024 ambulatory [facility] Work Phone: Start: 07-18-2024 End: 07-18-2024 Patient encounter procedure [facility] Work Phone: Start: 07-15-2024 Non-patient / Non-visit [facility] Work Phone: Start: 07-14-2024 Non-patient / Non-visit [facility] Work Phone: Start: 07-02-2024 End: 07-02-2024 ambulatory [facility] Work Phone: Start: 07-02-2024 End: 07-02-2024 Patient encounter procedure [facility] Work Phone: Start: 07-01-2024 Non-patient / Non-visit [facility]ician [facility] Work Phone: Start: 06-28-2024 Non-patient / Non-visit [facility] Physician [facility] Work Phone: Start: 06-27-2024 Non-patient / Non-visit [facility] Work Phone: Start: 06-27-2024 Non-patient / Non-visit [facility] Physician [facility] Work Phone: Start: 06-04-2024 End: 06-04-2024 ambulatory Radha CarmenBrian Fish Facility:[facility] Start: 06-04-2024 End: 06-04-2024 Patient encounter procedure Radhafei Granadosmelchor [facility] Start: 05-20-2024 End: 05-20-2024 ambulatory Aaliyah HERNANDEZ Facility:[facility] Start: 05-20-2024 End: 05-20-2024 Patient encounter procedure Aaliyah Hernandez MD Work Phone: Radiation Oncology Comment on above: Malignant neoplasm o f prostate (HCC) (Primary Dx) Start: 05-13-2024 End: 05-13-2024 ambulatory BRO CHAVEZ Facility:[facility] Start: 05-13-2024 Non-patient / Non-visit [facility] Physician [facility] Work Phone: Start: 04-09-2024 End: 04-09-2024 ambulatory [facility] Work Phone: Start: 04-09-2024 End: 04-09-2024 Patient encounter procedure [facility] Work Phone: Start: 04-01-2024 End: 04-01-2024 ambulatory David Pycraft RT(R) Radiology Ct Scan Comment on above: Radiology CT Start: 04-01-2024 End: 04-01-2024 Patient encounter procedure David Pycraft RT(R) Radiology Ct Scan Comment on above: S/P repair of ventra l hernia (Primary Dx) Start: 04-01-2024 End: 04-01-2024 Subsequent hospital visit by physician [facility] Radiology Ct Scan Comment on above: Ventral incisional h jt [K43.2] Start: 03-24-2024 End: 03-24-2024 ambulatory DEBBIE ANDRE Not Available Start: 03-11-2024 End: 03-11-2024 ambulatory VERONICA HIGH Not Available Start: 02-12-2024 End: 02-12-2024 ambulatory [facility] Work Phone: Start: 02-12-2024 End: 02-12-2024 Patient encounter procedure [facility] Work Phone: Start: 01-30-2024 Non-patient / Non-visit [facility] Physician [facility] Work Phone: Start: 12-12-2023 Non-patient / Non-visit [facility] Physician [facility] Work Phone: Start: 11-28-2023 End: 11-28-2023 ambulatory Radha Whitten Facility:[facility] Start: 11-28-2023 End: 11-28-2023 Patient encounter procedure Radha Whitten [facility] Start: 11-20-2023 End: 11-20-2023 ambulatory Aaliyah HERNANDEZ Facility:[facility] Start: 11-20-2023 End: 11-20-2023 Patient encounter procedure Aaliyah Hernandez MD Work Phone: Radiation Oncology Comment on above: Malignant neoplasm o f prostate (HCC) (Primary Dx) Start: 11-13-2023 End: 11-13-2023 ambulatory BRO CHAVEZ Facility:[facility] Start: 10-16-2023 End: 10-16-2023 ambulatory Bro Chavez Other [employer] Other Start: 10-16-2023 Telephone encounter [facility] Start: 10-11-2023 End: 10-11-2023 ambulatory Bro Chavez Other [employer] Other Start: 10-11-2023 Patient encounter procedure Bro Chavez [facility] Start: 10-11-2023 Telephone encounter Bro Chavez [facility] Start: 10-04-2023 End: 10-04-2023 ambulatory Bro Chavez Other [employer] Other Start: 10-04-2023 Telephone encounter Bro Chavez [facility] Start: 10-02-2023 End: 10-02-2023 ambulatory Bro Chavez Other [employer] Other Start: 10-02-2023 Telephone encounter Bro Chavez [facility] Start: 08-22-2023 End: 08-22-2023 ambulatory Bro Kathy Other [employer] Other Start: 08-22-2023 Telephone encounter Bro Chavez [facility] Start: 08-21-2023 End: 08-21-2023 ambulatory Bro Chavez Other [employer] Other Start: 08-21-2023 Office outpatient vi sit 15 minutes Bro Chavez [facility] Start: 08-21-2023 Telephone encounter Bro SANTOS [facility] Start: 08-15-2023 End: 08-15-2023 ambulatory Radha Whitten Facility:[facility] Start: 08-15-2023 End: 08-15-2023 Patient encounter procedure Radha Whitten [facility] Start: 07-24-2023 End: 07-24-2023 ambulatory Bro Chavez Other [employer] Other Start: 07-24-2023 Telephone encounter Bro Chavez [facility] Start: 07-16-2023 End: 07-16-2023 ambulatory Bro Chavez Other [employer] Other Start: 07-16-2023 Telephone encounter Bro Kathy [facility] Start: 07-13-2023 End: 07-13-2023 ambulatory Bro Chavez Other [employer] Other Start: 07-13-2023 Office outpatient vi sit 25 minutes Bro Chavez [facility] Start: 07-13-2023 Telephone encounter Bro SANTOS [facility] Start: 05-15-2023 End: 05-15-2023 Patient encounter procedure G Raz Hernandez MD Work Phone: Radiation Oncology Comment on above: Malignant neoplasm o f prostate (HCC) (Primary Dx) Start: 04-11-2023 End: 04-11-2023 ambulatory Bro Chavez Other [employer] Other Start: 04-11-2023 Office outpatient vi sit 25 minutes Bro Chavez [facility] Start: 04-10-2023 End: 04-10-2023 ambulatory Bro Chavez Other [employer] Other Start: 04-10-2023 Telephone encounter Bro SANTOS [facility] Start: 03-15-2023 End: 03-15-2023 ambulatory Bro Chavez Other [employer] Other Start: 03-15-2023 Initial nursing faci lity care/day 35 minutes Bro Chavez [facility] Start: 02-24-2023 End: 02-24-2023 ambulatory Bro Chavez Other [employer] Other Start: 02-24-2023 Telephone encounter Bro SANTOS [facility] Start: 02-23-2023 Evaluation and management of inpatient DONATO BISHOP Facility:[facility] Start: 02-21-2023 End: 02-22-[address] BRO CHAVEZ [employer] Other Start: 02-21-2023 Office outpatient vi sit 15 minutes Bro Chavez [facility] Start: 02-14-2023 End: 02-14-2023 Admission to [facility] Livan Valentin Work Phone: [facility] Start: 02-14-2023 End: 02-14-2023 ambulatory Pacc [facility] 2 Work Phone: Pre Anesthesia Comment on above: Preop examination (P rimary Dx); Primary hypertension; Prostate cancer (HCC); Obesity, Class I, BMI 30-34.9; Obstructive sleep apnea syndrome Start: 02-14-2023 End: 02-14-2023 Preprocedural examination done Pacc [facility] 2 Work Phone: Pre Anesthesia Start: 02-06-2023 End: 02-06-2023 ambulatory Bro Chavez Other [employer] Other Start: 02-06-2023 Telephone encounter Bro Chavez [facility] Start: 02-05-2023 End: 02-05-2023 ambulatory Bro Chavez Other [employer] Other Start: 02-05-2023 Office outpatient vi sit 15 minutes Bro Chavez [facility] Start: 01-29-2023 End: 01-29-2023 ambulatory Bro Chavez Other [employer] Other Start: 01-29-2023 Encounter for other preprocedural examination Bro Chavez [facility] Start: 01-29-2023 Office outpatient vi sit 25 minutes Bro Chavez [facility] Start: 01-24-2023 End: 01-24-2023 Patient encounter procedure CIERRA ZHU [facility] Start: 01-11-2023 End: 01-11-2023 Patient encounter procedure CIERRA ZHU [facility] Start: 12-28-2022 End: 12-28-2022 Patient encounter procedure CIERRA ZHU [facility] Start: 12-27-2022 Orders Only Marya mcneil MD Work Phone: General Surgery Start: 12-26-2022 End: 12-26-2022 Patient encounter procedure Donato Bishop MD Work Phone: General Surgery Comment on above: Recurrent left ingui nal hernia (Primary Dx) Start: 12-14-2022 End: 12-14-2022 Patient encounter procedure CIERRA ZHU [facility] Start: 12-12-2022 End: 12-12-2022 Patient encounter procedure Aaliyah Hernandez MD Work Phone: Radiation Oncology Comment on above: Malignant neoplasm o f prostate (HCC) (Primary Dx) Start: 12-06-2022 ambulatory BRO Villasenor y:[facility] Start: 12-06-2022 End: 12-06-2022 Subsequent hospital visit by physician [facility] 2 (I-Stat/3t) Work Phone: Radiology Comment on above: Left lower quadrant abdominal swelling, mass and lump [R19.04] Start: 12-04-2022 ambulatory VANDANA HERNANDEZ Facility:[facility] Start: 12-04-2022 End: 12-04-2022 Subsequent hospital visit by physician [facility] (I-Stat/1.5t) Radiology Comment on above: Prostate cancer (HCC ) [C61] Start: 11-30-2022 End: 11-30-2022 Patient encounter procedure CIERRA ZHU [facility] Start: 11-23-2022 End: 11-23-2022 Patient encounter procedure CIERRA ZHU [facility] Start: 11-16-2022 Patient encounter procedure [facility] Provider [facility] Department Start: 11-09-2022 End: 11-09-2022 Patient encounter procedure Aaliyah Hernandez MD Work Phone: Radiation Oncology Comment on above: Prostate cancer (HCC ) (Primary Dx); Abdominal mass, left lower quadrant Start: 11-08-2022 End: 11-08-2022 Patient encounter procedure Radha Whitten [facility] Start: 11-06-2022 End: 11-07-2022 ambulatory RADHA WHITTEN . Facility:[facility] Start: 10-11-2022 End: 10-12-2022 ambulatory RADHA WHITTEN . Facility:[facility] Start: 10-04-2022 End: 10-04-2022 Patient encounter procedure Radha Whitten [facility] Start: 08-05-2022 End: 08-06-[address] BRO CHAVEZ Facility:[facility] Start: 07-13-2022 End: 07-13-2022 Patient encounter procedure Aaliyah Hernandez MD Work Phone: Radiation Oncology Comment on above: Prostate cancer (HCC ) (Primary Dx) Start: 04-14-[address] BRO CHAVEZ [facility] ty:[facility] Start: 03-30-2022 End: 03-30-2022 Patient encounter procedure Aaliyah Hernandez MD Work Phone: Radiation Oncology Comment on above: Prostate cancer (HCC ) (Primary Dx) Start: 03-28-2022 End: 03-28-2022 Patient encounter procedure Sushant Freedman Jr. [facility] Procedures Date Procedure Procedure Detail Performing Clinician Start: 07-24-2024 [facility] Angio DO B romeo Chavez Work Phone: Start: 07-22-2024 Ecg routine ecg w/le ast 12 lds w/i&r Don Joseph DO Work Phone: Start: 02-23-2023 Antibody screen DONATO B AIER Comment on above: Order Comment: Speci men Type: BLOOD SPECIMENOrdering Facility: [facility] Address: [place] [phone] Performed By: #### T SCR ####MICA BLOOD BANKCLIA [id number] [address] [place] Start: 02-23-2023 Inguinal [...] Author Start: 03-01-2026 DIABETES SCREEN DIABETES SCREEN [facility] Start: 03-01-2026 Diabetes Screening Diabetes Screenin g [facility] Start: 11-03-2025 End: 11-03-2025 Patient encounter procedure 11/03/2025 9:10 AM EST Office Visit [facility] [address] [facility] [address] [place] [address] Don Joseph DO [address] [facility] [address] [place] [address] [facility] Start: 04-28-2025 End: 04-28-2025 Patient encounter procedure 04/28/2025 9:30 AM EDT Office Visit [facility] [address] [facility] [address] [place] [id number] Mere Freedman, AUTOMOTIVE [employer]EL[employer]BR[employer]ER ASSOCIATE [address] [facility] [address] [place] [address] [facility] Start: 04-07-2025 End: 04-07-2025 Patient encounter procedure 04/07/2025 10:00 AM EDT Office Visit General Surgery [address] [address] [address] [place], [place] [phone] Donato Bishop MD [address] [place], [place] [id number] Est Pt: 2 yr follow up, s/p open left anterior groin mesh removal (plug and patch) and TAR [id number] General Surgery Comment on above: Est Pt: 2 yr follow up, s/p open left anterior groin mesh removal (plug and patch) and TAR [id number] Start: 12-14-2024 DIABETES SCREEN DIABETES SCREEN [facility] Start: 11-20-2024 End: 02-19-2025 Prostate specific Ag [Mass/volume] in Serum or Plasma PROSTATE-SPECIFIC ANTIGEN DIAGNOSTIC Lab Routine Malignant neoplasm of prostate (HCC) Expected: 11/20/2024, Expires: 02/19/2025 [facility] Work Phone: Comment on above: Expected: 11/20/2024 , Expires: 02/19/2025 Start: 11-19-2024 End: 11-19-2024 Patient encounter procedure 11/19/2024 11:15 AM EST Office Visit [facility] [address] [place] [address] Aaliyah Hernandez MD [address] [place] [address] 5 Month Follow Up Radiation Oncology Comment on above: 5 Month Follow Up Start: 11-11-2024 End: 11-11-2024 Patient encounter procedure 11/11/2024 11:00 AM EST Office Visit [facility] [address] [place] [address] lab [facility] Comment on above: lab Start: 10-29-2024 End: 10-29-2024 Patient encounter procedure 10/29/2024 10:50 AM EST Office Visit [facility] [address] [place] [phone] Don Joseph DO [address] [place] [address] [facility] Start: 07-24-2024 End: 07-24-2024 [facility] Start: 06-15-2024 COVID-19 Vaccine ( season) COVID-19 Vaccine ( season) [facility] Start: 06-15-2024 Influenza vaccination Influenza Vacc ine (#1) [facility] Start: 05-20-2024 End: 08-19-2024 Prostate specific Ag [Mass/volume] in Serum or Plasma PSA/PROSTSPECAG DIAG Lab Routine Malignant neoplasm of prostate (HCC) Expected: 05/20/2024, Expires: 08/19/2024 [facility] Work Phone: Comment on above: Expected: 05/20/2024 , Expires: 08/19/2024 Start: 05-20-2024 End: 05-20-2024 Patient encounter procedure 05/20/2024 1:15 PM EDT Office Visit Radiation Oncology [address] [facility] [place] [address] Aaliyah Hernandez MD [address] [place] [address] 5 Month Follow Up Radiation Oncology Comment on above: 5 Month Follow Up Start: 05-13-2024 End: 05-13-2024 Patient encounter procedure 05/13/2024 1:00 PM EDT Office Visit [facility] [address] [facility] [place] [address] lab followup [facility] Comment on above: lab followup Start: 11-15-2023 End: 01-15-2024 Prostate specific Ag [Mass/volume] in Serum or Plasma PSA/PROSTSPECAG DIAG Lab Routine Malignant neoplasm of prostate (HCC) Expected: 11/15/2023, Expires: 01/15/2024 [facility] Work Phone: Comment on above: Expected: 11/15/2023 , Expires: 01/15/2024 Start: 10-15-2023 Advance Directive Discussion Advance Directive Discussion [facility] Start: 10-15-2023 Behavioral Health Screening Behavioral Health Screening [facility] Start: 10-15-2023 Depression Assessment Depression Ass essment [facility] Start: 06-15-2023 Covid-19 Vaccine () Covid-19 Vaccine () [facility] Start: 06-15-2023 Covid-19 Vaccine () Covid-19 Vaccine () [facility] Start: 06-15-2023 Influenza vaccination C [facility] Start: 05-11-2023 End: 07-11-2023 Prostate specific Ag [Mass/volume] in Serum or Plasma PSA/PROSTSPECAG DIAG Lab Routine Malignant neoplasm of prostate (HCC) Expected: 05/11/2023, Expires: 07/11/2023 [facility] Work Phone: Comment on above: Expected: 05/11/2023 , Expires: 07/11/2023 Start: 03-30-2023 Adult depression screening assessment DEPRESSION SCREENING [facility] Start: 02-14-2023 End: 04-16-2023 Basic metabolic 2000 panel - Serum or Plasma [facility] Work Phone: Comment on above: Expected: 02/14/2023 , Expires: 04/16/2023 Start: 01-10-2023 End: 03-12-2023 Prostate specific Ag [Mass/volume] in Serum or Plasma PSA/PROSTSPECAG DIAG Lab Routine Prostate cancer (HCC) Expected: 01/10/2023, Expires: 03/12/2023 [facility] Work Phone: Comment on above: Expected: 01/10/2023 , Expires: 03/12/2023 Start: 11-12-2022 End: 01-12-2023 Prostate specific Ag [Mass/volume] in Serum or Plasma PSA/PROSTSPECAG DIAG Lab Routine Prostate cancer (HCC) Expected: 11/12/2022, Expires: 01/12/2023 [facility] Work Phone: Comment on above: Expected: 11/12/2022 , Expires: 01/12/2023 Start: 10-15-2022 ADVANCE DIRECTIVE DISCUSSION ADVANCE DIRECTIVE DISCUSSION [facility] Start: 10-15-2022 DEPRESSION ASSESSMENT DEPRESSION ASS ESSMENT [facility] Start: 06-30-2022 End: 08-30-2022 Prostate specific Ag [Mass/volume] in Serum or Plasma PSA/PROSTSPECAG DIAG Lab Routine Prostate cancer (HCC) Expected: 06/30/2022 (Approximate), Expires: 08/30/2022 [facility] Work Phone: Comment on above: Expected: 06/30/2022 (Approximate), Expires: 08/30/2022 Start: 06-15-2022 Influenza vaccination [facility] Start: 10-15-2021 ADVANCE DIRECTIVE DISCUSSION ADVANCE DIRECTIVE DISCUSSION [facility] Start: 10-15-2021 DEPRESSION ASSESSMENT DEPRESSION ASS ESSMENT [facility] Start: 08-29-2021 COVID-19 VACCINE (4 - Booster for Pfizer series) COVID-19 VACCINE (4 - Booster for Pfizer series) [facility] Start: 08-29-2021 COVID-19 VACCINE (4 - Pfizer series) COVID-19 VACCINE (4 - Pfizer series) [facility] Start: 05-23-2018 Pneumococcal Vaccine : 65+ (2 of 2 - PCV) Pneumococcal Vaccine: 65+ (2 of 2 - PCV) [facility] Start: 07-24-2014 DTaP/Tdap/Td Vaccine s (1 - Tdap) DTaP/Tdap/Td Vaccines (1 - Tdap) [facility] Start: 07-24-2014 Urine microalbumin profile DTaP,Tdap,Td Vaccine (1 - Tdap) [facility] Start: 2012 PNEUMOCOCCAL: 65+ (1 - PCV) PNEUMOCOCCAL: 65+ (1 - PCV) [facility] Start: 2007 RSV Vaccine (1 - 1-d ose 60+ series) RSV Vaccine (1 - 1-dose 60+ series) [facility] Start: 1997 SHINGRIX VACCINE (1 of 2) HOLLEY GRIX VACCINE (1 of 2) [facility] Start: 1992 COLOGUARD (FIT-DNA) COLOGUARD (FIT-D NA) [facility] Start: 1992 Colonoscopy COLONOSCOPY [facility] Start: 1992 COLORECTAL CANCER SCREENING COLORECTAL CANCER SCREENING [facility] Start: [address] COLONOGRAPHY [facility] Start: 1992 FECAL OCCULT BLOOD FECAL OCCULT BLOO D [facility] Start: 1992 SIGMOIDOSCOPY SIGMOIDOSCOPY [facility] Start: 1982 LIPID SCREEN LIPID SCREEN [facility] Start: 1966 SHINGRIX VACCINE (1 of 2) HOLLEY GRIX VACCINE (1 of 2) [facility] Start: 1966 Urine microalbumin profile [facility] Start: 1965 ANNUAL PCP TEAM EMPLOYMENT CONSULTANT MOOSE DISEASE VISIT ANNUAL PCP TEAM CHRONIC DISEASE VISIT [facility] Start: 1965 Anxiety Screening Anxiety Screening [facility] Start: 1965 BP CONTROLLED (<130/80) BP CONTROLLE D (<130/80) [facility] Start: 1965 Depression Screening Depression Scre ening [facility] Start: 1965 Diabetes mellitus screening Diabetes Screening [facility] Start: 1965 HEPATITIS C SCREENING HEPATITIS C [facility] Start: 1965 Hepatitis C screening Hepatitis C [facility] Start: 1953 PNEUMOCOCCAL: 65+ (1 - PCV) PNEUMOCOCCAL: 65+ (1 - PCV) [facility] Start: 1952 COVID-19 VACCINE (#1) COVID-19 VACCI NE (#1) [facility] Start: 1947 COVID-19 VACCINE (#1) COVID-19 VACCI NE (#1) [facility] Start: 1947 Lipid panel Lipid Panel [facility] Start: 1947 Medicare Annual Well ness Visit Medicare Annual Wellness Visit (AWV) [facility] Cardiac Catheterizat ion - Onbase Scan Cardiac Catheterization - Onbase Scan Cardiac Cath Routine Abnormal nuclear stress test Chest pain, unspecified type Ordered: 07/22/2024 [facility] Service Area Work Phone: Comment on above: Ordered: 07/22/2024 CT Abdomen and Pelvi s WO contrast CT ABD/PEL WO IVCON Radiology Routine Ventral incisional hernia 04/01/2024 1:[address] [facility] Work Phone: End: 12-09-2023 Mri pelvis w/o & w/contrast material MRI PELVIS WO/W IVCON Radiology Routine Prostate cancer (HCC) Abdominal mass, left lower quadrant 1 Occurrences starting 11/09/2022 until 12/09/2023 [facility] Work Phone: Comment on above: 1 Occurrences starti ng 11/09/2022 until 12/09/2023 End: 12-04-2022 Mri pelvis w/o & w/contrast material [facility] Work Phone: Comment on above: 1 Occurrences starti ng 12/04/2022 until 12/04/2022 Patient Education Know your Meds [facility] Work Phone: Patient referral [facility] Work Phone: [facility] Immunizations Immunization Date Immunization Notes Care Provider Fa sasha 07-18-2024 influenza, high dose seasonal, preservative-free [facility] 04-02-2024 COVID-19 (PFIZER) 12Y and older DO Bro Chavez Work Phone: [facility] 04-02-2024 COVID-19 Comirnaty (Pfizer) Tri-Sucrose 12+ [facility] 04-02-2024 Pneumococcal Conjuga te Vaccine, 20 valent [facility] 07-25-2023 COVID-19 (PFIZER) 12Y and older DO Bro Chavez Work Phone: [facility] 07-25-2023 zoster vaccine recombinant Radha Whitten [facility] 07-13-2023 influenza virus vaccine, unspecified formulation [facility] 07-13-2023 influenza, high dose seasonal, preservative-free Bro Chavez Other [employer] Other 05-07-2023 zoster vaccine recombinant Bro Chavez Other [facility] 10-18-2022 SARS-CoV-2 (COVID-19 ) [id number] Radha Whitten [facility] 07-05-2022 influenza virus vaccine, split virus (incl. purified surface antigen) Bro Chavez Other [employer] Other 07-05-2022 influenza virus vaccine, unspecified formulation Radha Whitten [facility] 01-30-2022 COVID-19 Comirnaty (Pfizer) Tri-Sucrose 12+ DO Bro Chavez Work Phone: [facility] 01-30-2022 SARS-CoV-2 mRNA ([id number]) vaccine Radha Lue [facility] 07-04-2021 influenza virus vaccine, split virus (incl. purified surface antigen) Bro Chavez Other [employer] Other 07-04-2021 influenza virus vaccine, unspecified formulation [facility] 07-04-2021 SARS-CoV-2 (COVID-19 ) mRNA [id number] vax Radha Lue [facility] [facility] Comment on above: Result Comment: 2022: [id number] 06-15-2021 SARS-CoV-2 (COVID-19 ) Ad26 vaccine, recombinant Sushant Freedman Jr. [facility] 12-13-2020 SARS-CoV-2 (COVID-19 ) Ad26 vaccine, recombinant Sushant Freedman Jr. [facility] 12-07-2020 SARS-CoV-2 (COVID-19 ) mRNA BNT-162b2 vax Radha Lue [facility] Comment on above: Result Comment: 2022: [id number] 11-16-2020 SARS-CoV-2 (COVID-19 ) mRNA BNT-162b2 vax Radha Lue [facility] Comment on above: Result Comment: 2022: TPV70 11-15-2020 SARS-CoV-2 (COVID-19 ) Ad26 vaccine, recombinant Sushant Freedman Jr. [facility] 07-05-2020 influenza virus vaccine, split virus (incl. purified surface antigen) Bro Chavez Other [employer] [facility] Other 07-05-2020 influenza virus vaccine, unspecified formulation [facility] 07-29-2019 influenza virus vaccine, split virus (incl. purified surface antigen) Bro Chavez Other [employer] [facility] Other 07-29-2019 influenza virus vaccine, unspecified formulation [facility] 07-30-2018 influenza virus vaccine, split virus (incl. purified surface antigen) Bro Chavez Other [facility] Other 07-30-2018 influenza virus vaccine, unspecified formulation Radha Lue [facility] 07-25-2017 influenza virus vaccine, split virus (incl. purified surface antigen) Bro Chavez Other [facility] Other 07-25-2017 influenza virus vaccine, unspecified formulation Ardha Lue [facility] 05-23-2017 pneumococcal polysaccharide vaccine, 23 valent Radha Lue [facility] 09-04-2016 influenza virus vaccine, split virus (incl. purified surface antigen) Bro Chavez Other [facility] Other 09-04-2016 influenza virus vaccine, unspecified formulation [facility] 09-04-2016 pneumococcal conjuga te vaccine, 13 valent Bro Chavez Other [facility] 08-12-2015 influenza virus vaccine, split virus (incl. purified surface antigen) Bro Chavez Other [facility] Other 08-12-2015 influenza virus vaccine, unspecified formulation Radha Lue [facility] 02-12-2015 pneumococcal polysaccharide vaccine, 23 valent Bro Chavez Other [facility] 07-23-2014 tetanus and diphther ia toxoids, adsorbed, preservative free, for adult use (5 Lf of tetanus toxoid and 2 Lf of diphtheria toxoid) Bro Chavez Other [facility] 09-01-2013 tetanus and diphther ia toxoids, adsorbed, preservative free, for adult use (5 Lf of tetanus toxoid and 2 Lf of diphtheria toxoid) Bro Kathy Other [facility] Payers Date Payer Category Payer Self-pay 2019 Unknown MMO MMO MEDICARE SUPPLEMENT [id number] 2019-Present [phone] [address] [place] [address] Indemnity [id number] 2019 Unknown MMO MMO MEDICARE SUPPLEMENT [id number] 2019-Present [phone] [address] [place] [address] Indemnity [id number] 2012 Medicare MEDICARE MEDICAR E A AND B [id number] 2012-Present [phone] [address] [address] [place] [address] Medicare [id number] 2012 Medicare [id number]. [id number] 1959 Medicare [id number] 1959 Self-pay [id number] 1959 Unknown [id number] 2.16.840.1.550281.19 1947 Unknown [id number] 2.16.840.1.886290.3.579.2.593 1947 Unknown [id number] 2.16.840.1.851699.3.579.2.593 1947 Unknown [id number] 2.16.840.1.883134.3.579.2.593 1947 Unknown [id number] 2.16.840.1.099944.3.579.2.593 1947 Unknown [id number] 2.16.840.1.035748.3.579.2.593 1947 Unknown [id number] 2.16.840.1.451664.3.579.2.1259 1947 Unknown [id number] 2.16.840.1.445206.3.579.2.1259 1947 Unknown [id number] 2.16.840.1.626816.3.579.2.727 1947 Unknown [id number] 2.16.840.1.275891.3.579.2.727 1947 Unknown [id number] 2.16.840.1.106929.3.579.2.727 1947 Unknown [id number] 2.16.840.1.512177.3.579.2.727 1947 Unknown [id number] 2.16.840.1.690827.3.579.2.1244 1947 Unknown [id number] 2.16.840.1.109030.3.579.2.1244 Unknown [id number] 2.16.840.1.391534.3.579.2.531 Unknown [id number] 2.16.840.1.042944.3.579.2.531 Social History Date Type Detail Facility Start: 03-28-2022 End: 07-22-2024 Tobacco smoking status Never smoked tobacco (finding) [facility] Start: 05-15-2023 End: 07-22-2024 Sex Assigned At Male [facility] Start: 05-10-2021 End: 07-22-2024 Tobacco use and exposure Smokeless tobacco non-user [facility] Start: 03-30-2022 End: 10-29-2024 Alcohol intake Ex-drinker (finding) [facility] Start: 1945 Sex Assigned At Not on file C [facility] Start: 03-20-2022 End: 10-29-2024 Exposure to SARS-CoV-2 (event) Not sure [facility] Tobacco smoking status Never [facility] Start: 05-15-2023 End: 07-22-2024 History of Social function [facility] Start: 1945 Sex Assigned At Male F [facility] Start: 10-27-2024 Sex Male (finding) [facility] Medical Equipment Procedure Code Equipment Code Equipment Origin al Text Equipment Identifier Dates Mesh Prolene Squ are Flat [id number] Surgical Knit Nonabsorbable Nonreactive - [id number] Start: 02-23-2023 Goals Date Patient Goal Desired Activity /State Functional Status Date Assessment Result Facility 06-04-2024 Functional Status N/A [facility] 11-28-2023 Functional Status N/A [facility] 08-15-2023 Functional Status N/A [facility] 01-24-2023 Functional Status N/A [facility] 01-11-2023 Functional Status N/A [facility] 12-28-2022 Functional Status N/A [facility] 12-14-2022 Functional Status N/A [facility] 11-30-2022 Functional Status N/A [facility] 11-23-2022 Functional Status N/A [facility] 11-08-2022 Functional Status N/A [facility] 10-04-2022 Functional Status N/A [facility] 03-28-2022 Functional Status N/A [facility] Clinical Notes 03-28-2022 to 10-29-2024 Don [...] In Cardiology 3. Coronary artery disease involving tununak coronary artery of tununak heart, unspecified whether angina present 4. Primary [...] discussion and plan. documented in this encounter [facility] Work Phone: 10-29-2024 Instructions Najma Tuttle LPN [...] be sent through Care Everywhere.Heart Healthy Diet (Malaysian)documented in this encounter [facility] Work Phone: 07-30-2024 Evaluation note Diagnosis Onset [...] ventricular contraction) acute October 27, 2024 3:03pm [facility] Work Phone: [phone]) 236-328010-10-2024 [facility] History of Present illness Narrative* Don Joseph, DO - 07/22/2024 11:10 AM EDT Cardiology Consultation- New Consult Reason for referral: Chest pain HPI: Yoni Ramirez is a 79 y.o. male seen in interventional cardiology consultation at request of Dr. Mao Chavez and [facility] advance nurse practitioner after patient was seen in the emergencyroom for second episode of chest heaviness and burning. He has had 2 episodes described as above lasting several minutes. He had stress imaging performed at [facility] revealing inferior perfusion defect with preserved left [...] bleeding disorder. Case was originally discussed with [facility] advanced nurse practitioner in the ER on the evening he was in the ER we had no beds at [facility]; and because of negative troponins at that [...] exam, discussion and plan. documented in this [facility] Work Phone: [phone]) 640-750510-08-2024 Instructions* Patient Instructions* Najma Tuttle LPN - [...] sent through Care Everywhere. * DASH Diet (Malaysian) documented in this [facility] Work Phone: 1(361) 933-780008-21-2024 Hospital Discharge instructions Patient Education 06/04/2024 09:16:57 [...] including vitamins, herbs, eye drops, creams, and gaam-nwn-eyoekno medicines. Any problems you or family members [...] provider tells you to take them. Taking njyk-rvp-crwvvmk medicines, vitamins, herbs, and supplements. Surgery safety [...] provider. Document Revised: 05/06/2021 Document Reviewed: 05/06/2021 [employer] Patient Education 2022 [employer]. Follow Up Care 11/28/2023 11:10:53 With:Fish WHARTON, Radha Tejada, URAdriel, URO Address: When: Unknown [facility] 08-21-2024 NotePatient Education Urology [facility] [...] including vitamins, herbs, eye drops, creams, and vkys-wgc-wvysjtt medicines. ? Any problems you or family [...] tells you to take them. ? Taking ixvb-rjy-ohfpvcq medicines, vitamins, herbs, and supplements. Surgery safety [...] 4?6 weeks after the (more content not included)...[facility]08-06-2024 History of Present illness Narrative* Aaliyah Hernandez [...] MD cc: Bro Chavez (Aj) [address] [place] [address] Dr. Whitten [facility] NoteHNO ID: [id number] Author: Aaliyah HERNANDEZ MD Service: ? Author [...] Hematuria: none Dysuria: none (more content not included)...[facility]06-18-2024 NoteHNO ID: [id number] Author: DAVID PORTILLO RT(Massiel) Service: ? Author [...] PATIENT PRESENTS WITH AN IMPLANTABLE OR ATTACHED HOOP BENDER TANK: No RADIOLOGY DEPARTMENT: CT; Exam(s) Completed: Abdomen/Pelvis PERIPHERAL IV DATA: Not applicable SIGNED BY: RT Haylee(R) April 01, 2024 11:36 [facility]06-18-2024 History of Present illness Narrative* David Portillo [...] PATIENT PRESENTS WITH AN IMPLANTABLE OR ATTACHED HOOP BENDER TANK: No RADIOLOGY DEPARTMENT: CT; Exam(s) Completed: Abdomen/Pelvis PERIPHERAL IV DATA: Not applicable SIGNED BY: RT Haylee(R) April 01, 2024 11:36 AM documented [facility] Nurse Note* Kristy Monreal OCCA - 04/01/2024 [...] Bowels: regular Wound: Temperature: No Drains: No [facility]06-18-2024 Nurse Note* Kristy Monreal OCCA - 04/01/2024 [...] Temperature: No Drains: No documented in this encounter[facility] History of Present illness Narrative* Donato Bishop MD - 04/01/2024 10:00 AM EDT [facility] Abdominal Core Health - Follow [...] Bishop MD 04/01/24, 10:35 AM General Surgery [facility] Medical Decision Making: Problems: Low: Stable chronic illness Data: Unique test result(s) reviewed: 1 Independent interpretation of test from other physician/QHCP Risk: Low: Low risk from testing/treatment Medical Decision Making Level: 3 - Low documented in this [facility]-2024 NoteHNO ID: [id number] Author: DONATO BISHOP MD Service: ? Author Type: Physician Type: Progress Notes Filed: 04/07/2024 16:41 Note Text: [facility] Abdominal Core Health - Follow [...] Bishop MD 04/01/24, 10:35 AM General Surgery [facility] Medical Decision Making: Problems: Low: Stable chronic illness Data: Unique test result(s) reviewed: 1 Independent interpretation of test from other physician/QHCP Risk: Low: Low risk from testing/treatment Medical Decision Making Level: 3 - [facility] Discharge instructions Patient Education 11/28/2023 10:58:17 [...] provider. Document Revised: 02/09/2022 Document Reviewed: 02/09/2022 [employer] Patient Education 2022 [employer]. Follow Up Care 08/15/2023 09:39:21 With:Fish WHARTON, ALANNA Hahn, URO Address: [address], [place] [address] [phone] When: Unknown Comments:6 months [facility] 02-06-2024 Nurse Note* Yamilex Golden LPN - 11/20/2023 1:18 PM EST Patient c/o continued urinary incontinence. Started Gemtesa approximately 3 months ago with little improvement. documented in this [facility]-2024 NoteHNO ID: [id number] Author: Aaliyah HERNANDEZ MD Service: ? Author [...] OF SYSTEMS: D/N = (more content not included)...[facility]02-06-2024 History of Present illness Narrative* Aaliyah Hernandez [...] ASSESSMENT/PLAN: Prostate adenocarcinoma, initial PSA 7.4, biopsy [place] score 4 + 3 = 7 (grade [...] Aaliyah Hernandez MD cc: Bro Chavez ([facility]) [address] [place] [address] Dr. Whitten documented in this [facility]-20[facility] Evaluation note* Encounter Date Diagnosis Assessment Notes [...] from previous results Blood loss from surgery? [facility] [facility] Other 12-19-2023 Evaluation note* Encounter Date Diagnosis Assessment Notes Treatment Notes Treatment Clinical Notes Sep, Anemia (ICD-10 - D64.9) [facility] Other 11-08-2023 Evaluation note* Encounter Date Diagnosis Assessment Notes Treatment Notes Treatment Clinical Notes Aug, COVID-19 (ICD-10 - U07.1) [facility] Other 11-07-2023 Evaluation note* Encounter Date Diagnosis [...] continue exercise to achieve/maintain a normal BMI. [facility] Other 11-01-2023 Hospital Discharge instructions Patient Education [...] provider. Document Revised: 02/09/2022 Document Reviewed: 02/09/2022 [employer] Patient Education 2022 [employer]. Follow Up Care 06/01/2023 13:07:42 With:Fish WHARTON, ALANNA Hahn, URO Address: When:Within 3 Month(s) [facility] 09-29-2023 Evaluation note* Encounter Date Diagnosis [...] High risk medication use (ICD-10 - Z79.899) [facility] Other 08-01-2023 History of Present illness Narrative* [...] ASSESSMENT/PLAN: Prostate adenocarcinoma, initial PSA 7.4, biopsy [place] score 4 + 3 = 7 (grade [...] Aaliyah Hernandez MD cc: Bro Chavez ([facility]) [address] [place] [address] Dr. Whitten documented in [facility]06-28-2023 Evaluation note* Encounter Date Diagnosis [...] s/p ADT No ongoing treatment Serial PSA [facility] Other 06-01-2023 Evaluation note* Encounter Date Diagnosis [...] repair. Ventral hernia repair No complications noted. [facility] Other 05-16-2023 NoteHNO ID: [id number] Author: Michelle Bryant MD Service: General Surgery [...] MD For team paging 6AM-6PM during weekdays: [phone] for [facility] Team For team paging after 6PM or on weekend / holidays: [phone] for General Surgery Subjective: Acute events overnight: [...] input(s): APTT, PT, INR in the last 41265 hours. Intake and Output: Date 02/26/23699 - 02/27/2365802/27/23699 - 02/28/23 0659 Shift 1796-9229 5753-1369 0190-5193 24 Hour Total 2528-3920 6544-3098 1501-0620 24 Hour Total INTAKE PO 360 360 720 PO 360 360 720 IV 300 300 Volume (mL) (magnesium sulfate iv piggyback in sterile water 2 g 50 mL) 50 50 Volume (mL) (potassium phosphate 30 mmol in NaCl 0.9% 250 mL) 250 250 Shift Total 619 657 6570 OUTPUT Urine 1000 1900 2900 Urine Incontinence/Not [...] (ROXICODONE) 2.5-5 mg ORAL q 4 H PRNFMelroseWakefield HospitalVnlpxwoj81-69-9033 NoteHNO ID: [id number] Author: Perez Salvador MD Service: General Surgery [...] Agrawal MD General Surgery, PGY-1 Personal Pager/Phone: [phone] Service Pager: [phone] ([facility]) For weekday evenings (6PM-6AM) or weekends/holidays, please page [phone] ([facility] Gen Surg weekends/nights)[facility]Jrevbfcc10-60-[facility] History of Past illness Narrative* Problem Noted Date Diagnosed Date Resolved Date Hypophosphataemia 02/26/2023 03/02/2023 Hypokalemia 02/26/2023 03/02/2023 Post-op pain 02/26/2023 03/02/2023 Inguinal hernia of left side without obstruction or gangrene 02/24/2023 03/02/2023 documented as of this encounter (statuses as of 05/18/2023) [facility]05-15-2023 History of Past illness Narrative* Problem Noted Date Diagnosed Date Resolved Date Hypophosphataemia 02/26/2023 03/02/2023 Hypokalemia 02/26/2023 03/02/2023 Post-op pain 02/26/2023 03/02/2023 Inguinal hernia of left side without obstruction or gangrene 02/24/2023 03/02/2023 documented as of this encounter (statuses as of 11/28/2023) [facility]05-15-2023 NoteHNO ID: [id number] Author: Carolina Lorenz MD Service: General Surgery [...] MD For team paging 6AM-6PM during weekdays: [phone] for [facility] Team For team paging after 6PM or on weekend / holidays: [phone] for General Surgery Subjective: Acute events overnight: [...] input(s): APTT, PT, INR in the last 70026 hours. Intake and Output: Date 02/25/23 07 - 02/26/23 0659 02/26/23 0700 - 02/27/23 0659 Shift 7223-8883 6757-0165 4734-6236 24 Hour Total 8688-4712 8357-2243 4607-4035 24 Hour Total INTAKE PO 340 120 460 PO 340 120 460 IV 559 559 Volume (mL) (lactated ringers iv infusion) 559 559 Shift Total 340 672 587 8105 OUTPUT Urine 6869 332 1778 2750 Output ( External Collection Device 02/25/23 0000) 7241 492 3057 2750 Tubes 40 55 20 115 Drain/Tube Output (Drain/Tube 02/23/230 Chip Spivey Right Upper Quadrant Abdomen Drain #1) 20 30 0 50 Drain/Tube Output (Drain/Tube 02/23/232121 Chip Spivey Left Upper Quadrant Abdomen) 20 25 20 65 # of BMs Number of BMs 0 x 0 x 0 x Shift Total 7773 472 3221 2865 Weight (kg) Current Medications: Current Facility-Administered [...] NaCl 0.9% 250 mL 30 mmol INTRAVENOUS ONCESaint Luke'S HospitalDkkjicwx01-88-3459 NoteHNO ID: [id number] Author: Chris Avendano MD Service: General Surgery [...] x [address] Donato iBshop MD 02/23. Hospital course has been uncomplicated [...] Resident For team paging 6AM-6PM during weekdays: [phone] for [facility] Team For team paging after 6PM or on weekend / holidays: [phone] for General Surgery Subjective: Acute events overnight: [...] input(s): APTT, PT, INR in the last 14819 hours. Intake and Output: Date 02/24/23 07 - 02/25/2365802/25/23 07 - 05/15/23 0659 Shift 6646-0835 3349-6617 5473-1598 24 Hour Total 5418-4327 9155-5698 1076-4062 24 Hour Total INTAKE PO 240 450 250 940 PO 240 450 250 940 IV 2130 374 3580 Volume (mL) (ceFAZolin iv piggyback 2 g in D5W (iso-osmotic) 100 mL (ANCEF)) 100 100 Volume (mL) (lactated ringers iv infusion) 0736 495 0757 Shift Total 2017 79 3053 OUTPUT Urine 471 716 4179 3025 Void (ml) 250 250 Output ([REMOVED] Indwelling Urinary Catheter 02/23/23 2325 Assessment Spear 02/25/23 0012) 584 187 8998 2575 Output ( External Collection Device 02/25/23 [...] x 1 x 1 x Shift Total 754 851 0601 3265 Weight (kg) Current Medications: Current Facility-Administered [...] mg/mL) - 200 mL PERIPHERAL NERVE CATHETER CONTINUOUS[address]13-2023 NoteHNO ID: [id number] Author: Chris Avendano MD Service: General Surgery [...] Lorenz MD, PGY-1 General Surgery Resident Pager [phone] For after hours issues, please call the on-call pager For team paging 6AM-6PM during weekdays: [phone] for [facility] Team For team paging after 6PM or on weekend / holidays: [phone] for General Surgery Subjective: Acute events overnight: [...] input(s): APTT, PT, INR in the last 57772 hours. Intake and Output: Date 02/23/23699 - 02/24/2365802/24/23699 - 02/25/23 0659 Shift 9168-7444 3999-7152 7150-7898 24 Hour Total 1045-7631 7010-5339 2552-6880 24 Hour Total INTAKE PO 60 60 [...] (ANCEF) 2 g INTRAVENOUS q 8 [facility]05-13-2023 NoteHNO ID: [id number] Author: Perez Salvador MD Service: General Surgery Author Type: Resident Type: Plan of Care Filed: 02/24/2023 4:59 AM Note Text: GENERAL SURGERY POST-OPERATIVE CHECK NOTE PATIENT NAME: Yoni Ramirez AGE: [age] year old : 1945 SEX: male ASSESSMENT AND PLAN: 77 year old male POD0 s/p Attempted dtbc-mpg-rrpwh repair of L femoral hernia, Excision of [...] Agrawal MD General Surgery, PGY-1 Personal Pager/Phone: [phone] Service Pager: [phone] ([facility]) For weekday evenings (6PM-6AM) or weekends/holidays, please page [phone] ([facility] Surg weekends/nights) SUBJECTIVE: Patient feels [...] dry and intact without strike-through LINES/TUBES: FERNANDO [address]05-13-2023 NoteHNO ID: [id number] Author: Tristan Solorio MD Service: Anesthesiology Author Type: Anesthesiologist Type: Anesthesia Procedure Notes Filed: 02/23/2023 11:18 PM Note Text: ANESTHESIOLOGY PROCEDURE NOTE Peripheral Nerve Block General Information Procedure Start Time/Medication Administration: 02/23/2023 10:41 PM Procedure End time: 02/23/2023 11:07 PM Patient location during procedure: OR Timeout Performed Pre-procedure: timeout performed Consent Obtained: Yes Patient identity confirmed: care valve steamer, 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 Reason for block: [...] February 23, 2023 TIME: 11:15 PM CSN: [id number] NoteHNO ID: [id number] Author: Tristan Solorio MD Service: Anesthesiology Author Type: Anesthesiologist Type: Anesthesia Procedure Notes Filed: 02/23/2023 11:15 PM Note Text: ANESTHESIOLOGY PROCEDURE NOTE Peripheral Nerve Block General Information Procedure Start Time/Medication Administration: 02/23/2023 10:41 PM Procedure End time: 02/23/2023 11:07 PM Patient location during procedure: OR Timeout Performed Pre-procedure: timeout performed Consent Obtained: Yes Patient identity confirmed: care valve steamer, 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 Reason for block: [...] February 23, 2023 TIME: 11:13 PM CSN: [id number] NoteHNO ID: [id number] Author: Stefanie Hitchcock APRN.ANALOG DESIGN ENGINEER Service: Anesthesiology Author Type: Nurse Hebrew Professor Type: Anesthesia Procedure Notes Filed: 02/23/2023 5:16 PM Note Text: ANESTHESIOLOGY PROCEDURE NOTE PIV General Information Procedure Start Time/Medication Administration: 02/23/2023 5:05 PM Patient Location: OR Staffing ANALOG DESIGN ENGINEER: Stefanie Hitchcock APRN.ANALOG DESIGN ENGINEER Performed by: LARS Preparation Sterility Preparation: hand hygiene performed prior to procedure, surgical cap used, mask used Site Prep: chlorhexidine Procedure Details Indication: need for IV access Needle Size/Type: 18 gauge angiocath Orientation: Left Location: Hand Imaging Guidance Used: No SIGNATURE: Stefanie Hitchcock APRN.CRNA PATIENT NAME: Yoni Ramirez DATE: February 23, 2023 TIME: 5:15 PM CSN: [id number] NoteHNO ID: [id number] Author: Stefanie Hitchcock APRN.ANALOG DESIGN ENGINEER Service: Anesthesiology Author Type: Nurse Hebrew Professor Type: Anesthesia Procedure Notes Filed: 02/23/2023 3:13 PM Note Text: ANESTHESIOLOGY PROCEDURE NOTE Airway General Information Procedure Start Time/Medication Administration: 02/23/2023 2:44 PM Patient location during procedure: OR Timeout Performed Pre-procedure: timeout performed Consent Obtained: Yes Patient identity confirmed: arm band, care valve steamer and patient Staffing Anesthesiologist: Faisal Kim MD ANALOG DESIGN ENGINEER: Stefanie Hitchcock APRN.ANALOG DESIGN ENGINEER Performed by: LARS Indications and Patient Condition [...] 1 Airway not difficult SIGNATURE: Stefanie Hitchcock APRN.ANALOG DESIGN ENGINEER PATIENT NAME: Yoni Ramirez DATE: February 23, 2023 TIME: 3:11 PM CSN: [id number] Evaluation note* Encounter Date Diagnosis Assessment Notes Treatment Notes Treatment Clinical Notes February, Acute pain of right knee (ICD-10 - M25.561) Ice, elevate and rest. No obvious s/s septic joint or inflammatory arthritis Check ESR, CRP and CBC and if normal, can't see any reason he can't proceed w/ surgery this February, Swelling of right knee joint (ICD-10 - M25.461) [facility] Other 05-03-2023 History and physical note* Nichole Humphrey APRN.BROKER ASSOCIATE - 02/14/2023 1:40 PM EDT HISTORY AND [...] fevers. Neuro: No history of TIA's, stroke, WAREHOUSE SHIPPING ASSOCIATE tumor, impaired sensorium, hemiplegia, paraplegia or quadraplegia. [...] Ramirez DATE: 02/14/2023 TIME: documented in this encounter[facility] Instructions* Patient Instructions* Nichole Humphrey APRN.CNP - 02/14/2023 1:31 PM EDT PATIENT PREOPERATIVE INSTRUCTIONS Donato Bishop MD has scheduled you for your procedure at this surgery center: [facility]: [phone] --[id number] [address]. Please check in on the1st floor at [...] Procedures: - YOU MUST HAVE A RESPONSIBLE BUSINESS CONTINUITY GLOBAL DIRECTOR TAKE YOU HOME. A TAKE DOWN INSPECTOR OR TOOL DESIGNER CANNOT BE MADE A RESPONSIBLE BUSINESS CONTINUITY GLOBAL DIRECTOR. - We recommend that a responsible person stays with you overnight to take care of you. - You cannot stay in a hotel alone after outpatient surgery. You will not be permitted to have yoursurgery, if you do not have someone to take care of you. If you already have an Advance Directive, please fax a copy to [phone] or email to for it to be [...] your chart that day. documented in this encounterMet[facility]-25-[facility]23 Evaluation note* Encounter Date Diagnosis Assessment Notes Treatment Notes Treatment Clinical Notes Jan, Essential (primary) hypertension (ICD-10 - I10) Jan, Hyperlipidemia type II (ICD-10 - E78.01) [facility] Other 04-24-2023 Evaluation note* Encounter Date Diagnosis Assessment Notes Treatment Notes Treatment Clinical Notes Jan, Strain of right knee , initial encounter (ICD-10 - S86.911A) Ice, heat, elevate and brace IA injection? Prednisone? Jan, Swelling of right knee joint (ICD-10 - M25.461) Rest w/ intermittent ice Jan, Primary osteoarthritis of right knee (ICD-10 - M17.11) Quad exercises, ice/heat, Tylenol [facility] Other 04-17-2023 Evaluation note* Encounter Date Diagnosis [...] for postoperative hypoventilation w/ sedating pain medications. [facility] Other 04-12-2023 Hospital Discharge instructions Patient Education [...] fried and sweet foods. General instructions Take uavc-vqf-edgzajg and prescription medicines only as told by [...] 07/28/2010 Document Revised: 01/22/2020 Document Reviewed: 10/17/2018 [employer] Patient Education 2020 [employer]. Follow Up Care 11/08/2022 13:09:05 With:CIERRA ZHU PA-C, URL Address: [address] [place] [address] When:3 months [facility] [place] [id number] Hospital Discharge instructions Patient Education 01/11/2023 09:48:17 [...] 11/08/2022 13:23:11 With:CIERRA ZHU PA-C, URL Address: [address] [address] When: Unknown [facility] [place] 03-16-2023 Hospital Discharge instructions Patient Education [...] (electrical nerve stimulation). For women, using a back office medical assistant to prevent urine leaks. This is a [...] right after experiencing incontinence. General instructions Take gmjc-lwh-kvowzok and prescription medicines only as told by [...] 11/08/2005 Document Revised: 10/11/2018 Document Reviewed: 01/10/2018 [employer] Patient Education 2020 [employer]. 12/28/2022 09:12:01 Overactive Bladder, Adult Overactive Bladder, [...] fried and sweet foods. General instructions Take skcg-rqc-sbqidzw and prescription medicines only as told by [...] 07/28/2010 Document Revised: 01/22/2020 Document Reviewed: 10/17/2018 [employer] Patient Education 2019 [employer]. Follow Up Care 11/08/2022 13:19:49 With:CIERRA ZHU PA-C, URL Address: [address] [place] [address] When:1 week Comments:1 wk follow up PFPT #5 [facility] 03-14-2023 History of Present illness Narrative* Donato Bishop MD - 12/26/2022 10:20 AM EDT HISTORY AND PHYSICAL [facility] Abdominal Core Health Chief Complaint: inguinal hernia [...] (Radha Whitten) 1994 - Umbilical hernia @ [place] 2014 - Open left inguinal hernia @ [place] No history of Psychiatric Disorders or Opioid [...] Bishop MD 01/02/23, 5:14 PM General Surgery [facility] * Kate Funez RN - 12/26/2022 10:18 [...] Temperature: No Drains: No documented in this encounterMet[facility]23 Hospital Discharge instructions Patient Education [...] 09/17/2013 Document Revised: 05/21/2019 Document Reviewed: 05/21/2019 [employer] Patient Education 2020 [employer] Follow Up Care 11/08/2022 13:16:38 With:YESSENIA ZHU, CIERRA Roche, URL Address: [address] [place] [address] When: Unknown [facility] [place] 02-28-2023 History of Present illness Narrative* [...] leuprolide, 6 month, (LUPRON DEPOT, 6 MONTH,) [facility] Inject intramuscularly as [...] ASSESSMENT/PLAN: Prostate adenocarcinoma, initial PSA 7.4, biopsy Stockport score 4 + 3 = 7 (grade [...] Aaliyah Hernandez MD cc: Bro Chavez ([facility]) [address] [place] [address] Whitten documented in this encounterMet[facility]02-22-2023 Nurse Note* Melanie Pierre RN [...] 2022 TIME: 9:07 AM documented in this encounterMet[facility]02-20-2023 Miscellaneous Notes* [facility] - Kelly Benavides, captain fishing vessel - 12/04/2022 3:40 PM EST Radiology Service [...] 04, 2022 4:33 PM documented in this encounterMetro[facility]02-20-2023 Nurse Note* Sima Craig RN - 12/04/2022 [...] 2022 TIME: 2:36 PM documented in this encounterMetro[facility]02-16-2023 Hospital Discharge instructions Patient Education [...] 09/17/2013 Document Revised: 05/21/2019 Document Reviewed: 05/21/2019 [employer] Patient Education 2020 [employer] Follow Up Care 11/08/2022 13:07:14 With:CIERRA ZHU PA-C, URL Address: [address] [place] [address] When: Unknown [facility] [place] 02-09-2023 Hospital Discharge instructions Patient Education [...] fried and sweet foods. General instructions Take rziu-dgp-mbxolmi and prescription medicines only as told by [...] 07/28/2010 Document Revised: 01/22/2020 Document Reviewed: 10/17/2018 [employer] Patient Education 2020 [employer]. Follow Up Care 11/08/2022 13:06:21 With:CIERRA ZHU PA-C, URL Address: [address] [place] [address]. [place] [address] [id number] When: Unknown [facility] [place] [id number] Nurse Note* Debbie Martin RN - 11/09/2022 1:03 PM EST RUDI 5. Debbie Martin RN documented in this encounterMet[facility]01-26-2023 History of Present illness Narrative* [...] ASSESSMENT/PLAN: Prostate adenocarcinoma, initial PSA 7.4, biopsy Stockport score 4 + 3 = 7 (grade [...] Aaliyah Hernandez MD cc: Bro Chavez ([place]) [address] [place] [address] Dr. Whitten documented in this encounterMet[facility]01-25-2023 Hospital Discharge instructions Patient Education [...] (electrical nerve stimulation). For women, using a back office medical assistant to prevent urine leaks. This is a [...] right after experiencing incontinence. General instructions Take pxif-uqh-zydcbfb and prescription medicines only as told by [...] 11/08/2005 Document Revised: 10/11/2018 Document Reviewed: 01/10/2018 [employer] Patient Education 2020 [employer]. 11/08/2022 12:05:35 Calorie Counting for Weight Loss [...] 10/01/2006 Document Revised: 06/20/2019 Document Reviewed: 08/31/2017 [employer] Patient Education 2020 [employer]. Follow Up Care 10/04/2022 09:47:52 With:Fish WHARTON, ALANNA Hahn, URO Address: When: Unknown [facility] 12-21-2022 Hospital Discharge instructions Patient Education [...] veins. Follow these instructions at home: Take jfgl-iez-xndfnan and prescription medicines only as told by [...] 01/07/2002 Document Revised: 12/19/2019 Document Reviewed: 12/19/2019 [employer] Patient Education 2020 [employer]. Follow Up Care 03/28/2022 09:10:25 With:Fish WHARTON, Radha Tejada, URL, URO Address: [address] [place] [address] [place] [phone] When: Unknown Comments:schedule scrotal US [facility] 09-29-2022 Nurse Note* Debbie Martin RN - 07/13/2022 1:22 PM EDT AUA 3 Debbie Martin RN documented in this encounterMetro[facility] Center09-29-2022 History of Present illness Narrative* Aaliyah Hernandez MD - 07/13/2022 1:15 PM EDT Radiation Oncology - Follow Up Note PATIENT NAME: Yoni Ramirez PATIENT DIAGNOSIS: Prostate adenocarcinoma, initial PSA 7.4, biopsy Stockport score 4 + 3 = 7 (grade [...] ASSESSMENT/PLAN: Prostate adenocarcinoma, initial PSA 7.4, biopsy Stockport score 4 + 3 = 7 (grade [...] Aaliyah Hernandez MD cc: Bro Chavez ([facility]) [address] [place] [address] documented in this encounterMet[facility]2022 History of Present illness Narrative* Aaliyah Hernandez MD - 03/30/2022 2:22 PM EDT Radiation Oncology - Follow Up Note PATIENT NAME: Yoni Ramirez PATIENT DIAGNOSIS: Prostate adenocarcinoma, initial PSA 7.4, biopsy Stockport score 4 + 3 = 7 (grade [...] ASSESSMENT/PLAN: Prostate adenocarcinoma, initial PSA 7.4, biopsy Stockport score 4 + 3 = 7 (grade [...] Aaliyah Hernandez MD cc: Bro Chavez ([facility]) [address] [place] [address] documented in this encounterMet[facility]06-14-2022 Hospital Discharge instructions Patient Education [...] including vitamins, herbs, eye drops, creams, and mrfc-rbb-waupptu medicines. This also includes: ?Medicines to assist [...] 11/03/2005 Document Revised: 09/13/2018 Document Reviewed: 07/08/2018 [employer] Patient Education 2020 [employer]. Follow Up Care 09/27/2021 10:26:46 With:Tano Bernardo MD, Sushant Sanchez, URO Address: [facility] [address], [place] [address]- When:Within 6 Month(s) [facility] evaluation + Plan note Future Appointments Appointment Date:10/03/2022 08:00:00 AM Scheduled Provider:Sushant Freedman Jr., MD Location:[facility] Appointment Type:URO Office Visit [facility] evaluation + Plan note Future Appointments Appointment Date:01/03/2023 08:00:00 AM Scheduled Provider:Radha Whitten MD Location:[facility] Appointment Type:URO Office Visit [facility] evaluation + Plan note Future Appointments Appointment Date:11/23/2022 09:00:00 AM Scheduled Provider:CIERRA ZHU PA-C [facility] Appointment Type:URO Procedure 30 min Appointment Date:11/30/2022 09:00:00 AM Scheduled Provider:CIERRA ZHU PA-C [facility] Appointment Type:URO Procedure 30 min Appointment Date:12/07/2022 10:30:00 AM Scheduled Provider:CIERRA ZHU PA-C [facility] Appointment Type:URO Procedure 30 min Appointment Date:12/14/2022 09:00:00 AM Scheduled Provider:CIERRA ZHU PA-C [facility] Appointment Type:URO Procedure 30 min Appointment Date:12/28/2022 09:00:00 AM Scheduled Provider:CIERRA ZHU PA-C Location:[facility] [place] Appointment Type:URO Procedure 30 min Appointment Date:01/11/2023 09:00:00 AM Scheduled Provider:CIERRA ZHU PA-C Location:[facility] Appointment Type:URO Procedure 30 min Appointment Date:01/17/2023 08:45:00 AM Scheduled Provider:Radha Whitten MD Location:[facility] Appointment Type:URO Office Visit [facility] evaluation + Plan note Future Appointments Appointment Date:11/30/2022 09:00:00 AM Scheduled Provider:CIERRA ZHU PA-C Location:[facility] Appointment Type:URO Procedure 30 min Appointment Date:12/07/2022 10:30:00 AM Scheduled Provider:CIERRA ZHU PA-C [facility] Appointment Type:URO Procedure 30 min Appointment Date:12/14/2022 09:00:00 AM Scheduled Provider:CIERRA ZHU PA-C Location:[facility] [place] Appointment Type:URO Procedure 30 min Appointment Date:12/28/2022 09:00:00 AM Scheduled Provider:CIERRA ZHU PA-C [facility] Appoint[facility] Type:URO Procedure 30 min Appointment Date:01/11/2023 09:00:00 AM Scheduled Provider:CIERRA ZHU PA-C [facility] Appointment Type:URO Procedure 30 min Appointment Date:01/17/2023 08:45:00 AM Scheduled Provider:Radha Whitten MD Location:[facility] Appointment Type:URO Office Visit [facility] Evaluation + Plan note Future Appointments Appointment Date:12/07/2022 10:30:00 AM Scheduled Provider:CIERRA ZHU PA-C Location:[facility] Appointment Type:URO Procedure 30 min Appointment Date:12/14/2022 09:00:00 AM Scheduled Provider:CIERRA ZHU PA-C Location:[facility] [place] Appointment Type:URO Procedure 30 min Appointment Date:12/28/2022 09:00:00 AM Scheduled Provider:CIERRA ZHU PA-C [facility] App[facility] Type:URO Procedure 30 min Appointment Date:01/11/2023 09:00:00 AM Scheduled Provider:CIERRA ZHU PA-C Location:[facility] Appointment Type:URO Procedure 30 min Appointment Date:01/17/2023 08:45:00 AM Scheduled Provider:Radha Whitten MD Location:[facility] Appointment Type:URO Office Visit [facility] Evaluation + Plan note Future Appointments Appointment Date:12/28/2022 09:00:00 AM Scheduled Provider:CIERRA ZHU PA-C Location:[facility] Appointment Type:URO Procedure 30 min Appointment Date:01/11/2023 09:00:00 AM Scheduled Provider:CIERRA ZHU PA-C [facility] App[facility] Type:URO Procedure 30 min Appointment Date:01/24/2023 08:30:00 AM Scheduled Provider:CIERRA ZHU PA-C Location:[facility] Appointment Type:URO Procedure 30 min Appointment Date:02/02/2023 09:00:00 AM Scheduled Provider:Radha Whitten MD Location:[facility] Appointment Type:URO Office Visit [facility] Evaluation + Plan note Future Appointments Appointment Date:01/11/2023 09:00:00 AM Scheduled Provider:CIERRA ZHU PA-C Location:[facility] Appointment Type:URO Procedure 30 min Appointment Date:01/24/2023 08:30:00 AM Scheduled Provider:CIERRA ZHU PA-C Location:[facility] Appointment Type:URO Procedure 30 min Appointment Date:02/02/2023 09:00:00 AM Scheduled Provider:Radha Whitten MD Location:[facility] Appointment Type:URO Office Visit [facility] Evaluation + Plan note Future Appointments Appointment Date:01/24/2023 08:30:00 AM Scheduled Provider:CIERRA ZHU PA-C Location:[facility] Appointment Type:URO Procedure 30 min Appointment Date:02/02/2023 09:00:00 AM Scheduled Provider:Radha Whitten MD Location:[facility] Appointment Type:URO Office Visit [facility] evaluation + Plan note Future Appointments Appointment Date:11/28/2023 10:00:00 AM Scheduled Provider:Radha Whitten MD Location:[facility] Appointment Type:URO Office Visit [facility] evaluation + Plan note Future Appointments Appointment Date:06/04/2024 08:45:00 AM Scheduled Provider:Radha Whitten MD Location:[facility] Appointment Type:URO Office Visit [facility] evaluation + Plan note Future Appointments Appointment Date:12/10/2024 08:45:00 AM Scheduled Provider:Radha Wihtten MD Location:[facility] Appointment Type:URO Office Visit [facility] evaluation note* Diagnosis Prostate cancer (HCC)- Primary Malignant neoplasm of prostate [facility]* Diagnosis Prostate cancer (HCC)- Primary Malignant neoplasm of prostate documented [facility]* Diagnosis Prostate cancer (HCC)- Primary Malignant neoplasm of prostate Abdominal mass, left lower quadrant Abdominal or pelvic swelling, mass, or lump, left lower quadrant documented in this encounter [facility] note* Diagnosis Prostate cancer (HCC) Malignant neoplasm of prostate Abdominal mass, left lower quadrant Abdominal or pelvic swelling, mass, or lump, left lower quadrant documented in this encounter [facility] note* Diagnosis Malignant neoplasm of prostate (HCC)- Primary Malignant neoplasm of prostate documented in this [facility] note* Diagnosis Recurrent left inguinal hernia- Primary Inguinal hernia without mention of obstruction or gangrene, recurrent unilateral or unspecified Unilateral recurrent inguinal hernia without obstruction or gangrene Inguinal hernia without mention of obstruction or gangrene, recurrent unilateral or unspecified documented in this encounter [facility] note* Diagnosis Obesity, Class I, BMI [...] unilateral or unspecified documented in this encounter [facility] noteNo [employer] Other Evaluation note* Diagnosis Malignant neoplasm of prostate (HCC)- Primary Malignant neoplasm of prostate documented in this encounter [facility] note* Diagnosis Malignant neoplasm of prostate (HCC)- Primary Malignant neoplasm of prostate documented in this encounter [facility] note* Diagnosis Onset Date Resolution Status Amaurosis fugax, right eye a cute Hypercholesterolemia acute Hypertension acute MIHIR (obstructive sleep apnea) acute Prostate cancer acute [facility] Work Phone: Evaluation note* Diagnosis Ventral incisional hernia documented in this encounter [facility] note* Diagnosis S/P repair of ventral hernia- Primary Other postprocedural status documented in this encounter [facility] note* Diagnosis Onset Date Resolution Status Anemia acute Hypercholesterolemia acute Hypertension acute MCI (mild cognitive impairment) acute Obesity acute MIHIR (obstructive sleep apnea) acute Prostate cancer acute [facility] Work Phone: Evaluation note* Diagnosis Malignant neoplasm of prostate (HCC)- Primary Malignant neoplasm of prostate documented in this encounter [facility] note* Diagnosis Onset Date Resolution Status Bradycardia acute Chest pain acute Hypercholesterolemia acute Hypertension acute MCI (mild cognitive impairment) acute Obesity acute MIHIR (obstructive sleep apnea) acute [facility] Work Phone: Evaluation note* Diagnosis Onset Date Resolution Status Bradycardia acute Chest pain acute Hypercholesterolemia acute Hypertension acute MCI (mild cognitive impairment) acute Obesity acute MIHIR (obstructive sleep apnea) acute Bradycardia acute Chest pain acute Hypercholesterolemia acute Hypertension acute [facility] Work Phone: Evaluation note* Diagnosis Abnormal nuclear stress test Chest pain, unspecified type Bradycardia Other specified cardiac dysrhythmias RBBB Primary hypertension Unspecified essential hypertension Pure hypercholesterolemia Obstructive sleep apnea syndrome Obstructive sleep apnea (adult) (pediatric) BMI 32.0-32.9,adult documented in this encounter [facility] Work Phone: Evaluation note* Diagnosis Onset Date Resolution Status Bradycardia acute Chest pain acute Hypercholesterolemia acute Hypertension acute MCI (mild cognitive impairment) acute Obesity acute MIHIR (obstructive sleep apnea) acute Bradycardia acute Chest pain acute Hypercholesterolemia acute Hypertension acute Bradycardia acute Chronic HFrEF (heart failure with reduced ejection fraction) acute Hypercholesterolemia acute Hypertension acute Ischemic cardiomyopathy acut e PVC (premature ventricular contraction) acute [facility] Work Phone: Evaluation note* Diagnosis Abnormal nuclear stress test Chest pain, unspecified type Coronary artery disease involving [place] coronary artery of [place] heart with angina pectoris Primary hypertension Unspecified essential hypertension Pure hypercholesterolemia PVC (premature ventricular contraction) Other premature beats RBBB Obstructive sleep apnea syndrome Obstructive sleep apnea (adult) (pediatric) BMI 33.0-33.9,adult Edema, unspecified type documented in this encounter [facility] Work Phone: History general Narrative - Reported* [...] History COLONOSCOPY Hospitalization History SEE SURGICAL HX [facility] [facility] Other History general Narrative - Reported* Type [...] 03/03 23 Hospitalization History SEE SURGICAL HX [facility] Other [place] general Narrative - Reported* Type Description Date [...] 03/03 23 Hospitalization History SEE SURGICAL HX [facility] Other Hospital course Narrative No data available for this section [facility] Discharge instructions Additional Instructions DISCHARGE INSTRUCTIONS FOR CARDIAC RESIDENT CARE ASSOCIATE PROCEDURE: Heart Cath The following instructions have [...] cold, numb, blue or white, call the sorter packer immediately. 4. ACTIVITY: You are advised to [...] bottle, follow the instructions on the bottle. [facility] is not responsible for incorrect prescription information provided by the patient during their visit. Do not stop your medications without consulting your health care provider. Please take the list with you to your next doctor's appointment.[facility] Work Phone: Progress note No data available for this section [facility] Reason for Referral Specialty Diagnoses / Procedures Referred By Britney suarez Referred To Contact Diagnoses Chest pain, unspecified type Procedures ECG 12 Lead Don oJseph, DO [address] [facility] [address] [place] [address] Referral ID Status Reason Start Date Expiration Date V isits Requested Visits Authorized [id number] Authorized 07/22/2024 07/22/2025 1 1 Specialty Diagnoses / Procedures Referred By Contac t Referred To Contact Cardiology Diagnoses Abnormal nuclear stress test Chest pain, unspecified type Procedures Follow Up In Cardiology Don Joseph, DO [address] [facility] [address] [place] [address] Don Joseph, DO [address] [facility] [address] [place] [address] Referral ID Status Reason Start Date Expiration Date V isits Requested Visits Authorized [id number] Authorized 07/22/2024 07/22/2025 1 1 Specialty Diagnoses / Procedures Referred By Contac t Referred To Contact MR IMAGING Diagnoses Prostate cancer (HCC) Abdominal mass, left lower quadrant Procedures MRI PELVIS WO/W IVCON MRI PELVIS W/O & W/CONTRAST MATERIAL Aaliyah Hernandez MD [address] [place] [address] [place] [address] Mr Imaging Referral ID Status Reason Start Date Expiration Date Visits Requested Visits Authorized [id number] Authorized Auto-Generat ed Referral 11/09/2022 12/09/2023 1 [...] April 09, 2024 End: April 09, 2024 Label Cutter Relationship Specialty Start Date End Date Bro Chavez, DO [address] [place] [address] PCP - General Internal Medicine 05/10/21 Label Cutter Relationship Specialty Start Date End Date Bro Chavez, DO [address] [place] [address] PCP - General Internal Medicine 05/10/21 Label Cutter Relationship Specialty Start Date End Date Bro Chavez, DO [address] [place] [place] [address] PCP - General Internal Medicine 05/10/21 Label Cutter Relationship Specialty Start Date End Date Bro Chavez, DO [address] [place] [place] [address] PCP - General Internal Medicine 05/10/21 Label Cutter Relationship Specialty Start Date End Date Bro Chavez, DO [address] [facility] [place] [address] PCP - General Internal Medicine 05/10/21 Label Cutter Relationship Specialty Start Date End Date Bro Chavez, DO [address] [place] [place] [address] PCP - General Internal Medicine 05/10/21 Label Cutter Relationship Specialty Start Date End Date Bro Chavez, DO [address] [place] [place] [address] PCP - General Internal Medicine 05/10/21 Label Cutter Relationship Specialty Start Date End Date Bro Chavez, DO [address] [place] [place] [address] PCP - General Internal Medicine 05/10/21 Radha Whitten MD [address] [place] [address] Urology 12/21/22 Label Cutter Relationship Specialty Start Date End Date Bro Chavez, DO [address] [facility] [place] [address] PCP - General Internal Medicine 05/10/21 Radha Whitten MD [address] [place] [address] Urology 12/21/22 Label Cutter Relationship Specialty Start Date End Date Bro Chavez, DO [address] [facility] [place] [address] PCP - General Internal Medicine 05/10/21 Radha Whitten MD [address] [place] [address] Urology 12/21/22 Label Cutter Relationship Specialty Start Date End Date Bro Chavez, DO [address] [facility] [place] [address] PCP - General Internal Medicine 05/10/21 Radha Whitten MD [address] [place] [address] Urology 12/21/22 Label Cutter Relationship Specialty Start Date End Date Bro Chavez DO [address] [place] [address] PCP - General Internal Medicine 05/10/21 Radha Whitten MD [address] [place] [place] [address] Urology 12/21/22 Team Status: Active Member Role [...] February 12, 2024 End: February 12, 2024 Label Cutter Relationship Specialty Start Date End Date Bro Chavez DO [address] [place] [address] PCP - General Internal Medicine 05/10/21 Radha Whitten MD [address] [place] [address] Urology 12/21/22 Label Cutter Relationship Specialty Start Date End Date Bro Chavez DO [address] [place] [address] PCP - General Internal Medicine 05/10/21 Radha Whitten MD [address] [place] [address] Urology 12/21/22 Label Cutter Relationship Specialty Start Date End Date Bro Chavez DO [address] [place] [address] PCP - General Internal Medicine 05/10/21 Radha Whitten MD [address] [place] [address] Urology 12/21/22 Label Cutter Relationship Specialty Start Date End Date Bro Chavez DO [address] [place] [address] PCP - General Internal Medicine 05/10/21 Radha Whitten MD [address] [place] [address] Urology 12/21/22 Label Cutter Relationship Specialty Start Date End Date Bro Chavez DO [address] [place] [address] PCP - General Internal Medicine 07/22/24 Team [...] 24, 2024 End: July 24, 2024 Tory oJseph DO Attending Provider Active S tart: July 24, 2024 End: July 24, 2024 Label Cutter Relationship Specialty Start Date End Date rBo Chavez DO [address] [place] [address] PCP - General Internal Medicine 07/22/24 Source Comments (unrecognize d section and content) In the event this informatio n is protected by the Federal Confidentiality of Alcohol and Drug Abuse Patient Records regulations: The Federal rules restrict any use of the information to criminally investigate or prosecute any alcohol or drug abuse patient.[facility] Center[facility] the event this information is protected by the Federal Confidentiality of Alcohol and Drug Abuse Patient Records regulations: The Federal rules restrict any use of the information to criminally investigate or prosecute any alcohol or drug abuse patient.[facility] Center[facility] the event this information is protected by the Federal Confidentiality of Alcohol and Drug Abuse Patient Records regulations: The Federal rules restrict any use of the information to criminally investigate or prosecute any alcohol or drug abuse patient.[facility] Center[facility] the event this information is protected by the Federal Confidentiality of Alcohol and Drug Abuse Patient Records regulations: The Federal rules restrict any use of the information to criminally investigate or prosecute any alcohol or drug abuse patient.[facility] Center[facility] the event this information is protected by the Federal Confidentiality of Alcohol and Drug Abuse Patient Records regulations: The Federal rules restrict any use of the information to criminally investigate or prosecute any alcohol or drug abuse patient.[facility] CenterIn the event this information is protected by the Federal Confidentiality of Alcohol and Drug Abuse Patient Records regulations: The Federal rules restrict any use of the information to criminally investigate or prosecute any alcohol or drug abuse patient.[facility] Center[facility] the event this information is protected by the Federal Confidentiality of Alcohol and Drug Abuse Patient Records regulations: The Federal rules restrict any use of the information to criminally investigate or prosecute any alcohol or drug abuse patient.[facility] CenterIn the event this information is protected by the Federal Confidentiality of Alcohol and Drug Abuse Patient Records regulations: The Federal rules restrict any use of the information to criminally investigate or prosecute any alcohol or drug abuse patient.[facility] CenterIn the event this information is protected by the Federal Confidentiality of Alcohol and Drug Abuse Patient Records regulations: The Federal rules restrict any use of the information to criminally investigate or prosecute any alcohol or drug abuse patient.[facility] CenterIn the event this information is protected by the Federal Confidentiality of Alcohol and Drug Abuse Patient Records regulations: The Federal rules restrict any use of the information to criminally investigate or prosecute any alcohol or drug abuse patient.[facility] CenterIn the event this information is protected by the Federal Confidentiality of Alcohol and Drug Abuse Patient Records regulations: The Federal rules restrict any use of the information to criminally investigate or prosecute any alcohol or drug abuse patient.[facility] CenterIn the event this information is protected by the Federal Confidentiality of Alcohol and Drug Abuse Patient Records regulations: The Federal rules restrict any use of the information to criminally investigate or prosecute any alcohol or drug abuse patient.[facility] CenterIn the event this information is protected by the Federal Confidentiality of Alcohol and Drug Abuse Patient Records regulations: The Federal rules restrict any use of the information to criminally investigate or prosecute any alcohol or drug abuse patient.[facility] CenterIn the event this information is protected by the Federal Confidentiality of Alcohol and Drug Abuse Patient Records regulations: The Federal rules restrict any use of the information to criminally investigate or prosecute any alcohol or drug abuse patient.[facility] CenterIn the event this information is protected by the Federal Confidentiality of Alcohol and Drug Abuse Patient Records regulations: The Federal rules restrict any use of the information to criminally investigate or prosecute any alcohol or drug abuse patient.[facility] CenterIn the event this information is protected by the Federal Confidentiality of Alcohol and Drug Abuse Patient Records regulations: The Federal rules restrict any use of the information to criminally investigate or prosecute any alcohol or drug abuse patient.[facility] CenterIn the event this information is protected by the Federal Confidentiality of Alcohol and Drug Abuse Patient Records regulations: The Federal rules restrict any use of the information to criminally investigate or prosecute any alcohol or drug abuse patient.[facility] Reason for Visit (unrecogniz ed section and content) Reason Comments Prostate Cancer Reason Comments Prostate Cancer Specialty Diagnoses / Procedures Referred By Contac t Referred To Contact MR IMAGING Diagnoses Prostate cancer (HCC) Abdominal mass, left lower quadrant Procedures MRI PELVIS WO/W IVCON MRI PELVIS W/O & W/CONTRAST MATERIAL Aaliyah Hernandez MD [address] [place] [address] [place] [address] Mr Imaging Referral ID Status Reason Start Date Expiration Date V isits Requested Visits Authorized [id number] Closed Auto-Generate d Referral 11/09/2022 12/09/2023 1 1 Reason Comments New Reason Comments Pre-Op Visit Reason Comments Radiology CT Specialty Diagnoses / Procedures Referred By Contac t Referred To Contact CT IMAGING Diagnoses Ventral incisional hernia Procedures CT ABD/PEL WO IVCON CT ABD & PELVIS [place] [address] [place] [address] [place] [id number] Referral ID Status Reason Start Date Expiration Date V isits Requested Visits Authorized [id number] Closed Auto-Generate d Referral 02/27/2024 04/18/2024 1 1 Reason Comments Follow Up 1 year Reason Comments New Patient Visit [facility] in Reason Comments Follow-up 3 month Post-Cath Specialty Diagnoses / Procedures Referred By Britney suarez Referred To Contact Cardiology Diagnoses Abnormal nuclear stress test Chest pain, unspecified type Procedures Follow Up In Cardiology Don Joseph DO [address] [facility] [address], [place] [id number] Phone: tel: fax: Don Joseph, DO [address] [facility] [address], [place] [id number] Phone: tel: fax: Referral ID Status Reason Start Date Expiration Date V isits Requested Visits Authorized [id number] Authorized 07/22/2024 07/22/2025 1 1 (unrecognized sect ion and content) No Status Records FoundNo Status Records FoundNo Status Records FoundNo Status Records FoundNo Status Records FoundNo Status Records FoundNo Status Records Found INFORMATION SOURCE (unrecogn ized section and content) DATE CREATED AUTHOR 02/25/2023 [facility] DATE CREATED AUTHOR AUTHOR'S ORGANIZ ATION 02/28/2023 [facility] DATE CREATED AUTHOR AUTHOR'S ORGANIZ ATION 03/24/2024 [facility] EPIC DATE CREATED AUTHOR AUTHOR'S ORGANIZ ATION 06/05/2024 [facility] DATE CREATED AUTHOR AUTHOR'S ORGANIZ ATION 08/06/2024 [facility] DATE CREATED AUTHOR AUTHOR'S ORGANIZ ATION 11/01/2024 [facility] DATE CREATED AUTHOR AUTHOR'S ORGANIZ ATION 11/12/2024 [facility] Goals (unrecognized section and content) Goals [...] BE BASED ON THE PRIMARY CLINICAL RECORDS. [facility] [employer] [facility]. provides no warranty or guarantee of the accuracy or completeness of information in this document.
[2024-11-24 10:47] LABS: Basophils Percent Auto 0.7 % (0.2-2.0); Eosinophils Absolute Auto 0.2 10^3/uL (0.0-0.7); Eosinophils Percent Auto 4.5 % (0.9-7.0); Hematocrit 42.7 % (42.0-54.0); Hemoglobin 14.2 g/dL (14.0-18.0); Immature Granulocytes Abs Auto 0.01 10^3/uL (0.00-0.03); Immature Granulocytes Pct Auto 0.2 % (0.0-0.5); Lymphocytes Absolute Auto 1.2 10^3/uL (1.2-3.8); Lymphocytes Percent Auto 27.2 % (20.5-60.0); Mean Corpuscular HGB Conc 33.3 g/dL (29.9-35.2); Mean Corpuscular Hemoglobin 31.1 pg (25.9-34.0); Mean Corpuscular Volume 93.4 fL (80.0-94.0); Mean Platelet Volume 11.1 fL (9.5-13.5); Monocytes Absolute Auto 0.5 10^3/uL (0.3-0.8); Monocytes Percent Auto 11.8 % (1.7-12.0); Neutrophils Absolute Auto 2.5 10^3/uL (1.4-6.5); Neutrophils Percent Auto 55.6 % (43.0-75.0); Platelet Count 168 10^3/uL (150-450); Red Blood Count 4.57 10^6/uL (4.70-6.10); Red Cell Distribution Width 16.1 % (11.0-15.0); White Blood Count 4.5 10^3/uL (4.0-11.0)
[2024-11-24 11:22] LABS: Alanine Aminotransferase 23 U/L (16-63); Albumin Level 3.4 g/dL (3.4-5.0); Alkaline Phosphatase 111 U/L (46-116); Aspartate Amino Transferase 18 U/L (15-37); BUN Creatinine Ratio 15.2; Bilirubin Total 0.6 mg/dL (0.2-1.0); Calcium 9.1 mg/dL (8.5-10.1); Carbon Dioxide 30.3 mmol/L (21.0-32.0); Chloride 107 mmol/L (98-107); Estimated GFR (African America >60 (>=60 mL/min/1.73m^2); Estimated GFR (Non-African Ame >60 (>=60 mL/min/1.73m^2); Globulin 3.4 g/dL; Glucose 110 mg/dL (74-106); Potassium 4.3 mmol/L (3.5-5.1); Sodium 145 mmol/L (136-145); Thyroid Stimulating Hormone 1.378 uIU/mL (0.358-3.740); Total Protein 6.8 g/dL (6.4-8.2)
[2024-11-25 11:07] LABS: Vitamin B12 351 pg/mL (232-1245)
== END 2024-11-24 09:47 | disposition home or self-care (01) ==
LOC: LAB 09:51
PROVIDERS: PCP Internal Medicine; Visit Provider Internal Medicine
DX: D62 Acute posthemorrhagic anemia (principal); I25.10 Atherosclerotic heart disease of native coronary artery without angina pectoris; I10 Essential (primary) hypertension; R41.0 Disorientation, unspecified; R41.3 Other amnesia; R53.83 Other fatigue
CPT/HCPCS: 36415; 80053; 82607; 82746; 84443; 85025

== ENCOUNTER 2024-12-19 08:05 | Outpatient (OUT) | payer MEDICARE, OTHER, SELFPAY ==
--- OUTSIDE RECORDS SUMMARY | 2024-12-19 08:17 | XMS_ITS | CCD ---
Author Organization [facility] Care Team Providers Care Accounts Supervisor Name Role Phone BRO CHAVEZ Primary Care Physician [phone] Bro Chavez DO Primary Care Provider Bro [...] Unavailable KATHY, DR LYMAN Primary Care Unavailable FISH ., RADHA Carmen Admitting Unavailable FISH ., RADHA Carmen Attending Unavailable KATHY, DR LYMAN Primary Care Unavailable LIZZIE, DR CASSIDY Etienne Consulting Unavailable LUE ., RADHA Carmen Consulting Unavailable LUE ., RADHA Carmen Admitting Unavailable FISH ., RADHA Carmen Attending Unavailable KATHY, DR LYMAN Primary Care Unavailable SYED, DR MIKE Rankin Consulting Unavailable FISH ., RADHA Carmen Consulting Unavailable KATHY, DR LYMAN Admitting Unavailable KATHY, DR LYMAN Attending Unavailable KATHY, DR LYMAN Primary Care Unavailable KATHY, DR LYMAN Consulting Unavailable DONATO BISHOP Admitting Unavailable DONATO BISHOP Attending Unavailable BRO CHAVEZ Primary Care Unavailable VANDANA HERNANDEZ Referring Jasxona ble BRO CHAVEZ Primary Care Unavailable BRO CHAVEZ Primary Care Unavailable VERONICA HIGH Attending Unavailable DEBBIE ANDRE Attending Unavailable Bro Chavez DO Primary Care Provider Bro Chavez DO Primary Care Provider DO Bro Chavez Primary Care Provider [phone] DO Tory Joseph Attending Provider Tory Joseph Admitting Unavailable Ball, Bro Primary Care Unavailable Jake, Tory Thornton Attending Unavailable Kathy, Bro Primary Care Unavailable Jake, Tory Thornton Attending Unavailable Jake, Tory Thornton Admitting Unavailable JAKE, DON S Attending Unavailable BALL, BRO E Primary Care Unavailable JAKE, DON S Attending Unavailable JAKE, DON S Referring Unavailable BALL, BRO E Primary Care Unavailable Radha Whitten Attending Unavailable Radha Whitten Attending Unavailable Radha Whitten Attending Unavailable BALL, BRO E Primary Care Unavailable EDNA, DONATO Referring Unavailable BALL, BRO E Primary Care Unavailable BALL, BRO E Primary Care Unavailable ENGAaliyah METZ Attending Unavailable BALL, BRO E Primary Care Unavailable BALL, BRO E Primary Care Unavailable ENGELER, G RAZ Attending Unavailable BALL, BRO E Primary Care Unavailable BALL, BRO E Referring Unavailable EDNA, DONATO Attending Unavailable BALL, BRO E Primary Care Unavailable EDNA, DONATO Referring Unavailable Ball Bro WHARTON Unavailable [phone] Maxine Delgado DO Unavailable Allergies Allergy Classification Reported Allergen(s) Allergy Type Date of Onset Reaction(s) Facility (15 sources) Ciprofloxacin; Translations: [ciprofloxacin] Drug Allergy 8 Unknown [facility] Repository (1 source) No Known Medication Allergies; [...] THE EVENING Start: 10-21-2019 End: 10-29-2025 take 20 mg by mouth once daily atorvastatin 20 mg, Ora l, Daily, Refills(s) 0 Start Date: 10/21/19 Status: Ordered Comment on above: Take 20 mg by mouth once daily. b complex vitamins capsule (1 source) take 1 capsule by mouth once daily b complex vitamins capsule Take 1 capsule by mouth Daily Active carvedilol 6.25 mg oral tablet (20 sources) alpha-Adrenergic Rachid, beta-Adrenergic Rachid Start: 12-10-2024 take 1 tablet by mouth twice daily carvedilol 6.25 mg Tab 6.25 mg = 1 tab(s), Oral, BID, Refills(s) 0 Start Date: 12/10/24 Status: Ordered Start: 03-09-2024 Carvedilol 6.2 5 mg tablet Active 0 .ROUTE .COMPLEX 180 March 09, 2024 2:50pm TAKE 1 TABLET TWICE A DAY WITH FOOD Start: 02-11-2024 End: 03-09-2024 take 1 tablet by mouth twice daily Carvedilol 6.25 mg tablet Discontinued 6.25 MG PO Twice daily February 10, 2024 11:00pm March 09, 2024 2:50pm Start: 01-04-2022 carvedilol (CO REG) 12.5 mg tablet 6.25 mg twice daily with meals. 01/04/2022 Active Start: 01-04-2022 carvedilol (CO REG) 6.25 mg tablet Start: 04-22-2019 End: 12-18-2024 take 1 tablet by mouth twice daily carvedilol 12.5 mg Tab 12.5 mg = 1 tab(s), Oral, BID, Refills(s) 0 Start Date: 04/22/19 Status: Ordered take 1 tablet by sylwia th once daily in the evening carvedilol (Coreg) 6.25 MG tablet Take 6.25 mg by mouth Daily Takes in PM Active Comment on above: twice daily with emmanuel ls. 6.25 mg twice daily with meals. furosemide 20 mg oral tablet (8 sources) Loop Diuretic Start: End: furosemide (LASIX) 20 mg tablet Take 20 mg by mouth. 10/29/2024 10/29/2025 Active gemtesa 75 mg tablet (4 sources) take 1 tablet by mouth every twenty-four hours Gemtesa 75 MG 1 tablet Orally Once a day for 90 days Active hydroCHLOROthiazide 25 mg / lisinopril 20 mg oral tablet (20 sources) Thiazide Diuretic, Angiotensin Converting Enzyme Inhibitor Start: End: Lisinopril-Hydrochl orothiazide 20-25 mg tablet Discontinued 0 .ROUTE .COMPLEX 90 March 11, 2024 12:10pm October 10, 2024 3:33pm TAKE 1 TABLET ONCE DAILY Start: 09-27-2021 End: 12-18-2024 take 1 tablet by mouth once daily lisinopriL-hydrochlorothiazide 20-25 mg tablet Take 1 tablet by mouth once daily. 03/11/2024 Active Comment on above: Take 1 tablet by sylwia th once daily. 24 hr isosorbide mononitrate 30 mg extended release oral tablet (20 sources) Nitrate Vasodilator Start: 07-10-20 End: 10-29-19 isosorbide mononitrate ER (IMDUR) 30 mg 24 hr tablet Take 30 mg by mouth. 10/29/2024 10/29/2025 Active ketoconazole 20 mg/ml topical cream (18 sources) Azole Antifungal Start: 06-29-20 ketoconazole (NIZORAL) [...] Daily, # 30 tab(s), Refills(s) 11, Pharmacy: [facility] [id number], 177, cm, 11/08/22 11:01:00 EST, Height/Length Dosing, 114, kg, 11/08/22 11:00:00 EST, Weight Dosing Start Date: 11/08/22 Status: Ordered nitroglycerin 0.4 mg sublingual tablet (8 sources) Nitrate Vasodilator Start: 07-15-20 End: 10-17-19 nitroglycerin sublingual (NITROQUICK) 0.4 mg SL tablet Dissolve 0.4 mg under the tongue. 07/15/2024 Active paxlovid (300/100) 20 x 150 [...] Jan, Active spironolactone 25 mg oral tablet (8 sources) Aldosterone Antagonist Start: 12-10-2024 spironolactone 25 mg Tab 25 mg = 1 tab(s), Refills(s) 0 Start Date: 12/10/24 Status: Ordered Start: 10-29-2024 End: 10-29-2025 spironolactone (ALDACTONE) 2 5 mg tablet Take 12.5 mg by mouth. 10/29/2024 10/29/2025 Active Start: 10-10-2024 End: 10-27-2024 take 1 tablet [...] day Active valsartan 40 mg oral tablet (8 sources) Angiotensin 2 Receptor Rachid Start: 10-07-2024 End: 10-29-2025 valsartan (DIOVAN) 40 mg tablet Take 40 mg by mouth. 10/29/2024 10/29/2025 Active Vibegron (Gemtesa) 75 MG tablet (2 sources) End: 12-18-2024 Vibegron (Gemtesa) 75 MG tablet Take by mouth 12/18/2024 Discontinued (Med list cleanup) Vibegron (Gemtes a) 75 MG tablet Take by mouth Active vibegron 75 MG Oral Tablet [Gemtesa] (2 sources) Start: 08-15-2023 take 1 tablet by mouth once daily Gemtesa 75 mg oral tablet 75 mg = 1 tab(s), Oral, Daily, # 30 tab(s), Refills(s) 11, Pharmacy: [facility] [id number], 177, cm, 08/15/23 8:49:00 EDT, Height/Length Dosing, 99, kg, 08/15/23 8:49:00 EDT, Weight Dosing Start Date: 08/15/23 Status: Ordered zolpidem tartrate 5 mg oral tablet (9 sources) gamma-Aminobuty alona Acid-ergic Agonist Start: 04-19-2021 take 1 mg [...] Comment on above: Take 2 tablets by [facility] every 6 hours as needed for pain. amLODIPine 5 mg oral tablet (20 sources) Dihydropyridine Calcium Channel Rachid Start: 07-03-2024 End: 07-03-2024 take 1 tablet by mouth once daily Amlodipine 5 mg tablet Discontinued 5 MG PO Daily July 03, 2024 11:35am July 03, 2024 11:56am Start: 03-09-2024 End: 07-03-2024 Amlodipine 5 mg tablet Disco ntinued 0 .ROUTE .COMPLEX March 09, 2024 2:50pm July 03, 2024 11:36am TAKE 1 TABLET DAILY Start: 04-22-2019 End: 12-18-2024 take 1 tablet by mouth once daily Amlodipine 5 mg tablet Discontinued 5 MG PO Daily February 10, 2024 11:00pm March 09, 2024 2:50pm Start: 04-22-2019 End: 12-03-2024 take 1 tablet by mouth twice daily Amlodipine 5 mg tablet Discontinued 5 MG PO Twice daily 180 90 July 30, 2024 3:47pm October 10, 2024 3:32pm take 0.5 tablet by m outh twice daily amLODIPine (Norvasc) 5 mg tablet Take 0.5 tablets (2.5 mg) by mouth 2 times a day. Active Comment on above: Take by mouth once d aily. Take by mouth two ti mes a day. cefdinir 300 mg oral capsule (2 sources) Cephalosporin Antibacterial Start: 3 End: 4 take 1 capsule by mouth twice daily cefdinir (OMNICEF) 300 mg capsule Take 1 capsule by mouth twice daily. 10 capsule 0 03/20/2023 11/20/2023 Discontinued (Course of therapy completed) Comment on above: Take 1 capsule by mo [facility] twice daily. GEMTESA 75 mg tablet (7 sources) Start: 4 End: 5 GEMTESA 75 mg tablet 11/12/2023 12/03/2024 Discontinued (Discontinued by another Health Care Provider) Start: 11-12-2023 GEMTESA 75 mg tablet iv contrast (will be provided with radiology [...] contrast administration guidelines link. lactobacillus rhamnosus gg [id number] unt oral capsule (2 sources) Start: 03-02-2023 End: 11-20-2023 take 1 capsule by mouth once daily lactobacillus rhamnosus (CULTURELLE) 10 billion cell capsule Take 1 capsule by mouth once daily. 14 capsule 0 03/02/2023 11/20/2023 Discontinued (Discontinued by Patient) Comment on above: Take 1 capsule by mo uth once daily. 1.5 ml leuprolide acetate 30 [...] TAKE ALONG WITH LISINOPRIL/HCTZ Start: 03-28-2022 End: 12-18-2024 take 1 tablet by mouth once daily lisinopril 10 MG tablet Take 10 mg by mouth Daily 02/11/2024 Active Start: 03-28-2022 End: 12-03-2024 lisinopril (ZESTRIL) 10 mg t ablet q 24 HR. 03/28/2022 12/03/2024 Discontinued (Discontinued by another Health Care Provider) Comment on above: Take 10 mg by [...] unspecified, not intractable] Chronic Hyperplasia of prostate (13 sources) Benign prostatic hypertrophy with outflow obstruction 08-24-2020 Chronic Miscellaneous mental health disorders (20 sources) Primary insomnia; Translations: [Primary insomnia] Chronic Osteoarthritis (20 sources) Arthritis; Translations: [Osteoarthritis of right knee joint] 04-22-2019 Chronic Other aftercare (2 sources) Other prison (current) drug therapy Episodic Other and unspecified benign neoplasm (2 sources) Lipoma of spermatic cord; 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] Onset: 10-04-2022 Episodic Other diseases of kidney and ureters (13 sources) Cyst of kidney 09-14-2020 Episodic Other diseases of kidney and ureters (1 source) Urinary tract obstruction; Translations: [Other obstructive and reflux uropathy] Onset: 11-08-2022 Episodic Other diseases of veins and lymphatics (16 sources) Varicocele; Translations: [Scrotal varices] Onset: 10-04-2022 Episodic Other gastrointestinal disorders (4 sources) Swollen abdomen; Translations: [Other intra-abdominal and pelvic swelling, mass and lump] Onset: 11-08-2022 Episodic Other gastrointestinal disorders (11 sources) Groin mass 11-08-2022 Episodic Other gastrointestinal [...] MALE GENITAL ORGANS] Onset: 11-06-2022 Episodic Other nervous system disorders (2 sources) Impaired cognition 12-18-2024 Episodic Other non-traumatic joint disorders (20 sources) [...] Chronic Other nutritional; endocrine; and metabolic disorders (10 sources) Obese class I; Translations: [Obesity, unspecified] Onset: 02-11-2023 Chronic Other nutritional; endocrine; and metabolic disorders (8 sources) Severe obesity; Translations: [Morbid (severe) obesity [...] (BMI) 32.0-32.9, adult] Onset: 07-22-2024 Chronic Other screening for suspected conditions (not mental disorders or infectious disease) (20 sources) Raised prostate specific antigen; Translations: [Thallium stress test abnormal] Onset: 07-22-2024 10-21-2020 Episodic Other upper respiratory disease (7 sources) Seasonal allergic rhinitis; Translations: [Other seasonal allergic rhinitis] 04-09-2024 Chronic Other upper respiratory disease (2 sources) Epistaxis Episodic Residual codes; unclassified (20 sources) Obstructive sleep apnea syndrome; Translations: [Obstructive sleep apnea (adult) (pediatric)] Onset: 02-14-2023 Chronic Residual codes; unclassified (18 sources) Obstructive sleep apnea (adult) (pediatric); Translations: [Obstructive sleep apnea (adult)(pediatric)] Onset: 07-22-2024 Chronic Residual codes; unclassified (3 sources) Periodic limb movement disorder; Translations: [Periodic limb movement disorder] Onset: 03-24-2024 12-18-2024 Chronic Residual codes; unclassified (3 sources) Hypersomnia; Translations: [Hypersomnia, unspecified] Onset: 03-24-2024 12-18-2024 Chronic Residual codes; unclassified (2 sources) Other [...] fugax of right eye; Translations: [Amaurosis fugax] Onset: 03-24-2024 02-10-2024 Chronic Past or Other Problems Problem Classification Problem Date Documented Date Episodic/Chronic Abdominal hernia (20 sources) Inguinal hernia; Translations: [Unilateral inguinal hernia, without obstruction or gangrene, not specified as recurrent] Onset: 11-08-2022 Resolved: 03-02-2023 Episodic Blindness and vision defects (2 sources) Blurring of visual image; Translations: [Other visual disturbances] Onset: 03-24-2024 03-24-2024 Episodic Cardiac dysrhythmias (20 sources) Bradycardia; Translations: [Bradycardia, unspecified] Onset: 07-22-2024 Resolved: 10-29-2024 06-30-2024 Episodic Fluid and electrolyte disorders (6 sources) Hypokalemia; Translations: [Hypokalemia] Onset: 02-26-2023 Resolved: 03-02-2023 03-02-2023 Episodic Nonspecific chest pain (20 sources) Chest pain; Translations: [Chest pain, unspecified] Onset: 07-22-2024 06-30-2024 Episodic Other diseases of veins and lymphatics (1 source) Scrotal varices; Translations: [SCROTAL VARICES] Onset: 10-14-2022 Episodic Other nervous system disorders (6 sources) Postoperative pain ; Translations: [Other acute postprocedural pain] Onset: 02-26-2023 Resolved: 03-02-2023 03-02-2023 Episodic Other nutritional; endocrine; and metabolic disorders (6 sources) Hypophosphatemia; Translations: [Other disorders of phosphorus metabolism] Onset: 02-26-2023 Resolved: 03-02-2023 03-02-2023 Chronic Residual codes; unclassified (2 sources) Inadequate sleep hygiene; Translations: [Inadequate sleep hygiene] Onset: 03-24-2024 03-24-2024 Episodic Residual codes; unclassified (2 sources) Amnesia; Translations: [Other amnesia] Onset: 03-24-2024 03-24-2024 Episodic Residual codes; unclassified (2 sources) Sleep deprivation; Translations: [Sleep deprivation] Onset: 03-24-2024 03-24-2024 Episodic Unclassified (2 sources) Onset: 07-22-2024 07-22-2024 Viral infection (2 sources) COVID-19 Results Test Name Value Interpretation Reference Range Facility Ambulatory Visit Summaryon 0 12-10-2024 Ambulatory Visit Summary Ambulatory Visit Summary YONI RAMIREZ :1945 Visit Date:12/10/2024 Ambulatory Visit Instructions Your Diagnosis Incontinence without sensory awareness RESHMA (stress urinary incontinence), male Personal history of prostate cancer Your Care Team Attending Physician - Fish WHARTON, Radha Tejada Primary Care Physician - KATHY KIMBROUGH, BRO This Is Your Medications List Contact prescribing physician if questions or concerns allopurinol (allopurinol 300 mg Tab) amlodipine (amLODIPine 5 mg Tab) aspirin (aspirin 81 mg Chew Tab) atorvastatin carvedilol (carvedilol 6.25 mg Tab) furosemide (furosemide 20 mg Tab) isosorbide mononitrate (isosorbide mononitrate 30 mg ER Tab) spironolactone (spironolactone 25 mg Tab) valsartan (valsartan 40 mg Tab) Procedures Performed Cardiac catheterization (2023), Inguinal hernia (02/23/2023), Pelvic floor (02/23/2023), History of external beam radiation therapy (07/14/2021), Radical retropubic prostatectomy with bilateral pelvic lymphadenectomy (06/20/2018), Transrectal biopsy of prostate using ultrasound guidance (03/28/2018), Colonoscopy, Hernia, Tonsillectomy. Discharge Vitals Temperature (Temporal Artery) 37 ???C Heart Rate (Peripheral) 58 Respiratory Rate 16 Blood Pressure 133/84 Height 177 cm Height 70 in Weight 107 kg Weight 235.894 lb BMI 34.15 What to do next You Need to Schedule the Following Appointments Follow Up with Fish WHARTON, Radha Tejada, URL, URO When: Where: Someone Will Contact You Regarding These Appointments [facility] External Ambulatory Referral, Service not offered at [facility], Urology, [facility], consideration of AUS, 12/10/24 9:25:00 EST, Mixed incontinence Personal history of prostate cancer Medications What How Much When Instructions Unchanged allopurinol (allopurinol 300 mg Tab) 1 Tablets By Mouth Every day Contact prescribing physician if questions or concerns Unchanged amlodipine (amLODIPine 5 mg Tab) 1 Tablets By Mouth 2 times a day Contact prescribing physician if questions or concerns Unchanged aspirin (aspirin 81 mg Chew Tab) Chewed Every day Contact prescribing physician if questions or concerns Unchanged atorvastatin 20 Milligram By Mouth Every day Contact prescribing physician if questions or concerns Unchanged carvedilol (carvedilol 6.25 mg Tab) 1 Tablets By Mouth 2 times a day Contact prescribing physician if questions or concerns Unchanged furosemide (furosemide 20 mg Tab) 1 Tablets Contact prescribing physician if questions or concerns Unchanged isosorbide mononitrate (isosorbide mononitrate 30 mg ER Tab) 1 Tablets Contact prescribing physician if questions or concerns Unchanged spironolactone (spironolactone 25 mg Tab) 1 Tablets Contact prescribing physician if questions or concerns Unchanged valsartan (valsartan 40 mg Tab) 1 Tablets Contact prescribing physician if questions or concerns Allergies No Known Medication Allergies Problems Ongoing - Any problem that you are currently receiving treatment for. Arthritis BMI 36.0-36.9,adult BPH with urinary obstruction Gout Hernia, inguinal History of kidney stones Hypertension Incontinence without sensory awareness Inguinal mass Kidney stone Male stress incontinence Nocturnal enuresis Personal history of prostate cancer Renal cyst Rising PSA following treatment for malignant neoplasm of prostate RSEHMA (stress urinary incontinence), male Urge incontinence Urinary frequency Urinary urgency Varicocele present on ultrasound of scrotum Patient Survey You may receive a survey via text or e-mail asking about your office visit. Please share your experience with us by completing your survey. We appreciate your feedback and thank you for choosing us for your care. Education Materials Artificial Urinary Sphincter Placement An artificial urinary sphincter (AUS) is a device that is used to treat urinary incontinence. The device helps you control your urine and prevents urine leaks. An AUS is made up of three parts: ??? A fluid-filled cuff. ??? A fluid-filled balloon. ??? A pump. During the procedure to place an AUS, the cuff is placed around the part of the body that drains urine from the bladder (urethra), the balloon is placed in the abdomen, and the pump is placed in the scrotum (for males) or outside of the vagina (for females). Tell a health care provider about: ??? Any allergies you have. ??? All medicines you are taking, including vitamins, herbs, eye drops, creams, and [id number] medicines. ??? Any problems you or family members have had with anesthetic medicines. ??? Any blood disorders you have. ??? Any surgeries you have had. ??? Any medical conditions you have. ??? Whether you are or may be . What are the risks? Generally, this is a safe procedure. However, problems may occur, including: ??? Infect (more content not included)... Normal [facility] Urology Office/Clinic Noteon 12-10-2024 Urology Office/Clinic Note Urology Office/Clinic Note Chief Complaint mixed incontinence HPI Staff 79yr old male pt here for 6mo f/u. Previous Dx: mixed incontinence, personal history of prostate cancer Pt states that he is completely incontinent and most of the time he has no urge or sensory awareness. He will wake up to a full brief with no knowledge that he had voided. He states that he has to change 3-4x daily due to complete soaking of his brief. Denies blood at any time and state no pain at all. PSA: 05/08/23 - <0.02 11/13/23 - <0.02 11/11/24 - <0.02 History of Present Illness Tests reviewed: UA, PSA I have reviewed the previous health [...] See HPI. Physical Exam Vitals & Measurements T: 37 ???C(Temporal Artery) HR: 58(Peripheral) RR: 16 BP: 133/84 HT: 70 in HT: 177 cm WT: 107 kg WT: 235.894 lb BMI: 34.15 General Appearance: alert, no distress, well nourished, well developed male. Assessment/Plan 79-year-old male prior Dr. Freedman patient with urinary incontinence s/p RALP, EBRT presents for follow-up. LEESA not completed (1). Present with today. Multiple prior abdominal surgeries: Open left inguinal hernia repair with mesh prior to RALP [facility] Surgery for hernia- S/P Excision of left groin hernia mesh, bilateral myofascial advancement flaps, repair of incarcerated epigastric hernia, recurrent incarcerated left inguinal hernia and reducible right renal hernia pair with implantation of large mesh, 02/23/[address] Donato Bishop, Path report was benign. 1. Incontinence without sensory awareness (N39.42: Incontinence without sensory awareness) PVR (cc): 11/28/23 - 12 Completed 6 session of PFPT w/ FERNANDO, and then did 4 weeks of PFPT at home. Improvement reported during notes however patient declines current improvement. [1] -Has not kept up with exercises Rx'd Myrbetriq 25mg qd in the past but was too expensive. Did not recall getting different Rx of Trospium 20mg qhs. Green clamp did not work/did not want to use. Previously discussed further w/u with cysto/uros but pt declined. [2] Failed Gemtesa d/t no sx improvement and cost. Pt unable to provide urine sample today. IPSS not completed d/t being completely incontinent. Again, main issue is likely RESHMA s/p RALP, EBRT. Further proven due to lack of improvement with OAB meds. Since he has failed more conservative txs options, next option would be AUS, as previously discussed, he was not ready to proceed with surgery. Pt is now ready to proceed with further workup/treatment. Tired of being incontinent. Discussed AUS using visual diagram and its risks/benefits including risk of erosion. Higher risk given hx of radiation, would refer to tertiary center. Leakage affecting QoL. Pt open to consideration of AUS today. Has not been doing PF exercises at home, tried for a month but stopped d/t no improvement. Sling not recommended d/t extent of leakage. Has not had cysto to eval for possible anatomical abnormality like stricture, however if dilated would likely worsen leakage. [facility] would likely scope as well, may be redundant but would confirm etiology of leakage prior to referral. Pt agreeable. -Referral to [facility] [place] Dr. Funmi Rubio-Estuardo for consideration of AUS, high risk given complex surgical hx including bilateral myofascial advancement flaps, radiation and RALP. -Would need cardiac clearance for anesthesia (nurseryman assistant is Dr Joseph) -PF exercises at home, they may help with some leakage -Will schedule cysto. The risks and benefits for cystoscopy have been discussed. The risks include bleeding, infection, and irritation of the bladder and urinary channel, among others. The patient, after being informed of procedural details and after questions have been answered, wishes to proceed. Full informed consent has been obtained. Will order Local anesthesia. 2. RESHMA (stress urinary incontinence), male (N39.3: Stress incontinence (female) (male)) See #1. Suspect RESHMA due to RALP/EBRT 3. Personal history of prostate cancer (Z85.46: Personal history of malignant neoplasm of prostate) Initial DX: Prostate adenocarcinoma, initial PSA 7.4, bx GS 7(4+3) GG3, clinical stage T2a. S/p open radical retropubic prostatectomy BL pelvic lymphadenectomy done 06/20/[address] Freedman - [id number] ([place] 4+3) +EPE, +margin. Un (more content not included)... Normal [facility] Comment on above: Result Comment: Elec tronically Signed By: Radha Whitten MD\.br\Date and Time Signed: 12/10/24 10:12 EST\.br\Electronically Co-Signed By: Belkys [email or web address].br\Date and Time Co-Signed: 12/10/24 09:33 EST NILESon 12-03-2024 CNOV Office Visit (RADTSA ) -- YONI RAMIREZ ([id number]) 1945 M Date Time Provider Department 12/03/24 11:30 AM Aaliyah HERNANDEZ During your visit today, we recorded the following information about you: Temperature Pulse Respiration Blood pressure 97.8 degrees 56/minute 16/minute 159/85 Weight 107.6 kg Aaliyah Hernandez MD 12/11/2024 11:08 AM Signed Radiation Oncology - Follow Up [...] TIME: 52 days. INTERVAL HISTORY: Overall doing fairly well. Did develop some angina underwent cardiac catheter procedure in July. Has moderate bleeding managed from that point. Bladder function stable. Still with incontinence wears pads daily. No hematuria or dysuria. 05/20/24:Patient states he is doing fairly well. No [...] fatigue. PSA HISTORY: PSA (ng/mL) Date Value 11/11/2024 <0.02 05/13/2024 <0.02 11/13/2023 <0.02 05/08/2023 <0.02 09/15/2021 <0.1 08/03/2021 <0.03 Initial post prostatectomy PSA 0.23 on 07/17/2018. Patient's PSA continued to rise: 0.48 on 04/22/2019 0.87 on 09/29/2019 1.43 on 03/19/2020 1.62 on 07/19/2020 2.05 on 09/27/2020 ALLERGIES No Known Allergies furosemide (LASIX) 20 mg tablet Take 20 mg by mouth. isosorbide mononitrate ER (IMDUR) 30 mg 24 hr tablet Take 30 mg by mouth. nitroglycerin sublingual (NITROQUICK) 0.4 mg SL tablet Dissolve 0.4 mg und (more content not included)... Normal [facility] PSA SerPl-mCncon 11-11-2024 Prostate specific Ag [Mass/Vol] ng/mL Normal <2.60 [facility] Comment on above: Order Comment: Speci men Type: BLOOD SPECIMEN Ordering Facility: [facility] Address: [address] [place] [address] Result Comment: Tota l PSA test methodology used is the Electrochemiluminescence Immunoassay by [employer]. Total PSA values by differing methodologies cannot be interchanged. Performed By: #### 2 857-1 #### [facility] CLIA [id number] [address] [place], [place] [address] [address] [place] Estimated glomerular filtrat ion rate (GFR) non- Americanon 10-21-2024 GFR/1.73 sq M.predicted among non-blacks MDRD (S/P/Bld) [Vol rate/Area] Estimated glomerular filtration rate (GFR) non- >=60 mL/min/1.7 2 [facility] Laboratory - Chemistry and C hemistry - challengeon 10-21-2024 Calcium [Mass/Vol] 9.6 mg/dL 8.5-10.1 [facility] Chloride [Moles/Vol] 108 mmol/L High 98-107 [facility] CO2 [Moles/Vol] 34.5 mmol/L High 21.0-32.0 [facility] Creatinine [Mass/Vol] 0.90 mg/dL 0.70-1.30 [facility] GFR/1.73 sq M.predicted MDRD (S/P/Bld) [Vol rate/Area] mL/min/{1.73_m2} >=60 mL/min/1.7 2 [facility] Glucose [Mass/Vol] 103 mg/dL 74-106 [facility] Natriuretic peptide B (Bld) [Mass/Vol] 137.0 pg/mL <=1800.0 [facility] Potassium [Moles/Vol] 4.1 mmol/L 3.5-5.1 [facility] Sodium [Moles/Vol] 147 mmol/L High 136-145 [facility] Urea nitrogen [Mass/Vol] 14.0 mg/dL 7.0-18.0 [facility] Urea nitrogen/Creatinine [Mass ratio] 15.6 mg/mg [facility] Serum or plasma anion gap de terminationon 10-21-2024 Anion gap [Moles/Vol] Serum or plasma an ion gap determination [facility] Activated partial thrombopla stin time (aPTT) in platelet poor plasma by coagulation aOrdered By: Tory Joseph on 07-23-2024 aPTT Coag (PPP) [Time] 29.1 s 25.1-36.5 [facility] Comment on above: A hematocrit value g reater than 55% may lead to inaccurate results in coagulation testing. Patients having hematocrit values >55% require a special collection tube for coagulation studies. Please contact the laboratory at [phone] for redraw instructions. Automated basophil %Ordered By: Tory Joseph on 07-23-2024 Basophils/100 WBC (Bld) 0.8 % Normal . [facility] Comment on above: Performed By: #### B UN, LYTES, PP, CREAT, LIPID, CBC #### [address] Automated basophil countOrde red By: Tory Joseph on 07-23-2024 Basophils (Bld) [#/Vol] 0.0 10*3/uL Normal 0.0-0.2 [facility] Comment on above: Result Comment: PERF ORMED BY: [place] [address] PATHOLOGIST [employer] JESUS DIOR M.D. Performed By: #### B UN, LYTES, PP, CREAT, LIPID, CBC #### [address] Automated blood monocyte cou ntOrdered By: Tory Joseph on 07-23-2024 Monocytes (Bld) [#/Vol] 0.6 10*3/uL Normal 0.0-0.8 [facility] Comment on above: Performed By: #### B UN, LYTES, PP, CREAT, LIPID, CBC #### [address] Automated eosinophil %Ordere d By: Tory Joseph on 07-23-2024 Eosinophils/100 WBC (Bld) 3.6 % Normal . [facility] Comment on above: Performed By: #### B UN, LYTES, PP, CREAT, LIPID, CBC #### [address] Automated eosinophil countOr dered By: Tory Joseph on 07-23-2024 Eosinophils (Bld) [#/Vol] 0.2 10*3/uL Normal 0.0-0.45 [facility] Comment on above: Performed By: #### B UN, LYTES, PP, CREAT, LIPID, CBC #### [address] Automated monocyte %Ordered By: Tory Joseph on 07-23-2024 Monocytes/100 WBC (Bld) 12.8 % Normal . [facility] Comment on above: Performed By: #### B UN, LYTES, PP, CREAT, LIPID, CBC #### [facility] [address] [place] [address] [place] Automated neutrophil %Ordere d By: Tory Joseph on 07-23-2024 Neutrophils/100 WBC (Bld) 59.9 % Normal . [facility] Comment on above: Performed By: #### B UN, LYTES, PP, CREAT, LIPID, CBC #### [facility] [address] [place] [address] [place] Carbon dioxide, total [Moles /volume] in Serum or PlasmaOrdered By: Tory Joseph on 07-23-2024 CO2 [Moles/Vol] 32.0 mmol/L High 21.0-31.0 [facility] Comment on above: Performed By: #### B UN, LYTES, PP, CREAT, LIPID, CBC #### [place] [address] [place] Chloride [Moles/volume] in S daniel or PlasmaOrdered By: Tory Joseph on 07-23-2024 Chloride [Moles/Vol] 107 mmol/L Normal 98-107 [facility] Comment on above: Performed By: #### B UN, LYTES, PP, CREAT, LIPID, CBC #### [place] [address] [place] Cholesterol [Mass/volume] in Serum or PlasmaOrdered By: Tory Joseph on 07-23-2024 Cholesterol [Mass/Vol] 138 mg/dL Low 140-200 [facility] Comment on above: Chol less than 200 m g/dl low riskChol 201-239 mg/dl borderline riskChol 240 mg/dl and greater high risk Result Comment: Chol less than 200 mg/dl low risk Chol 201-239 mg/dl borderline risk Chol 240 mg/dl and greater high risk Performed By: #### B UN, LYTES, PP, CREAT, LIPID, CBC #### [place] [address] [place] Cholesterol in LDL Calc [Mas s/Vol]Ordered By: Tory Joseph on 07-23-2024 Cholesterol in LDL [Mass/Vol] 91 mg/dL 0-100 [facility] Comment on above: LDL ATP III CLASSIFI CATIONLDL less than 100 mg/dL OptimalLDL 100-129 mg/dL Near or above optimalLDL 130-159 mg/dL Borderline highLDL 160-189 mg/dL HighLDL greater than 189 mg/dL Very high Cholesterol in VLDL Calc [Ma ss/Vol]Ordered By: Tory Joseph on 07-23-2024 Cholesterol in VLDL [Mass/Vol] 15 mg/dL [facility] Coagulation Profileon 2023 aPTT Coag (Bld) [Time] 29.1 s Normal 25.1-36.5 [facility] Comment on above: Result Comment: A he matocrit value greater than 55% may lead to inaccurate results in coagulation testing. Patients having hematocrit values >55% require a special collection tube for coagulation studies. Please contact the laboratory at [phone] for redraw instructions. PERFORMED BY: [place] [address] PATHOLOGIST [employer] JESUS DIOR M.D. Performed By: #### B UN, LYTES, PP, CREAT, LIPID, CBC #### [address] Complete Blood Count Auto Di ffon 07-23-2024 Mean Corpuscular HGB Conc 33.4 g/dL Normal 32.5-35.6 [facility] Comment on above: Performed By: #### B UN, LYTES, PP, CREAT, LIPID, CBC #### [address] NRBC% 0.3 /100{WBC} Normal 0-0.5 [facility] Comment on above: Performed By: #### B UN, LYTES, PP, CREAT, LIPID, CBC #### [address] Creatinineon 07-23-2024 GFR/1.73 sq M.predicted MDRD (S/P/Bld) [Vol rate/Area] mL/min/{1.73_m2} Normal [facility] Comment on above: Performed By: #### B UN, LYTES, PP, CREAT, LIPID, CBC #### [address] Creatinine [Mass/volume] in Serum or PlasmaOrdered By: Tory Joseph on 07-23-2024 Creatinine [Mass/Vol] 0.66 mg/dL Low 0.70-1.30 [facility] Comment on above: Performed By: #### B UN, LYTES, PP, CREAT, LIPID, CBC #### [address] Erythrocyte distribution wid th [Ratio] by Automated countOrdered By: Tory Joseph on 07-23-2024 Erythrocyte distribution width (RBC) [Ratio] 15.8 % High 12.0-14.8 [facility] Comment on above: Performed By: #### B UN, LYTES, PP, CREAT, LIPID, CBC #### [address] Erythrocytes [#/volume] in B lood by Automated countOrdered By: Tory Joseph on 07-23-2024 RBC (Bld) [#/Vol] 4.44 10*6/uL Normal 3.90-5.60 [facility] Comment on above: Performed By: #### B UN, LYTES, PP, CREAT, LIPID, CBC #### [address] Hematocrit [Volume Fraction] of Blood by Automated countOrdered By: Tory Joseph on 07-23-2024 Hematocrit (Bld) [Volume fraction] 42.0 % Normal 38.8-50.0 [facility] Comment on above: Performed By: #### B UN, LYTES, PP, CREAT, LIPID, CBC #### [address] Hemoglobin [Mass/volume] in BloodOrdered By: Tory Joseph on 07-23-2024 Hemoglobin (Bld) [Mass/Vol] 14.0 g/dL Normal 13.0-17.0 [facility] Comment on above: Performed By: #### B UN, LYTES, PP, CREAT, LIPID, CBC #### [facility] [address] INR in Platelet poor plasma by Coagulation assayOrdered By: Tory Joseph on 07-23-2024 INR Coag (PPP) [Relative time] 1.1 {INR} Normal [facility] Comment on above: INR Therapeutic Rang e [...] UN, LYTES, PP, CREAT, LIPID, CBC #### [facility] [address] Leukocytes [#/volume] correc jignesh for nucleated erythrocytes in Blood by Automated counOrdered By: Tory Joseph on 07-23-2024 WBC corrected for nucl RBC Auto (Bld) [#/Vol] 4.5 10*3/uL 4.1-10.5 [facility] Leukocytes [#/volume] in Blo od by Automated countOrdered By: Tory Joseph on 07-23-2024 WBC (Bld) [#/Vol] 4.5 10*3/uL Normal 4.1-10.5 [facility] Comment on above: Performed By: #### B UN, LYTES, PP, CREAT, LIPID, CBC #### [facility] [address] Lipid Panelon 07-23-2024 LDL Cholesterol,Calculated 91 mg/dL Normal 0-100 [facility] Comment on above: Result Comment: LDL ATP III CLASSIFICATION LDL less than 100 mg/dL Optimal LDL 100-129 mg/dL Near or above optimal LDL 130-159 mg/dL Borderline high LDL 160-189 mg/dL High LDL greater than 189 mg/dL Very high Performed By: #### B UN, LYTES, PP, CREAT, LIPID, CBC #### [address] Triglyceride w/Reflex 76 mg/dL Normal 0-149 [facility] Comment on above: Result Comment: TRIG ATP III CLASSIFICATION TRIG less than 150 mg/dL Normal TRIG 150-199 mg/dL Borderline high TRIG 200-500 mg/dL High TRIG greater than 500 mg/dL Very high Standard traceable to the Center for Disease Conrtrol and Prevention (CDC) test method. Performed By: #### B UN, LYTES, PP, CREAT, LIPID, CBC #### [address] VLDL CHOLESTEROL 15 mg/dL Normal [facility] Comment on above: Performed By: #### B UN, LYTES, PP, CREAT, LIPID, CBC #### [address] Lymphocytes [#/volume] in Bl ood by Automated countOrdered By: Tory Joseph on 07-23-2024 Lymphocytes (Bld) [#/Vol] 1.0 10*3/uL Normal 1.00-4.8 [facility] Comment on above: Performed By: #### B UN, LYTES, PP, CREAT, LIPID, CBC #### [place] [address] [place] Lymphocytes/100 leukocytes i n Blood by Automated countOrdered By: Tory Joseph on 07-23-2024 Lymphocytes/100 WBC (Bld) 22.9 % Normal . [facility] Comment on above: Performed By: #### B UN, LYTES, PP, CREAT, LIPID, CBC #### [place] [address] [place] MCH [Entitic mass] by Automa jignesh countOrdered By: Tory Joseph on 07-23-2024 MCH (RBC) [Entitic mass] 31.5 pg Normal 27.5-35.2 [facility] Comment on above: Performed By: #### B UN, LYTES, PP, CREAT, LIPID, CBC #### [facility] [address] [place] [address] MCHC Auto (RBC) [Mass/Vol]Or dered By: Tory Joseph on 07-23-2024 MCHC (RBC) [Mass/Vol] 33.4 g/dL 32.5-35.6 [facility] MCV [Entitic volume] by Auto mated countOrdered By: Tory Joseph on 07-23-2024 MCV (RBC) [Entitic vol] 94.6 fL Normal 83.5-101 [facility] Comment on above: Performed By: #### B UN, LYTES, PP, CREAT, LIPID, CBC #### [facility] [address] [place] [address] Neutrophils [#/volume] in Bl ood by Automated countOrdered By: Tory Joseph on 07-23-2024 Neutrophils (Bld) [#/Vol] 2.7 10*3/uL Normal 1.8-7.7 [facility] Comment on above: Performed By: #### B UN, LYTES, PP, CREAT, LIPID, CBC #### [facility] [address] [place] [address] No Panel InformationOrdered By: Tory Joseph on 07-23-2024 Estimated GFR (CKD-EPI) > 60.0 mL/Min [facility] Creatinine Clearance (Chem N/A [facility] Nucleated erythrocytes [Pres ence] in Blood by Automated countOrdered By: Tory Joseph on 07-23-2024 Nucleated RBC Auto Ql (Bld) 0.3 /100{WBC} 0-0.5 [facility] Platelet mean volume [Entiti c volume] in Blood by Automated countOrdered By: Tory Joseph on 07-23-2024 Platelet mean volume (Bld) [Entitic vol] 9.2 fL Normal 6.6-10.1 [facility] Comment on above: Performed By: #### B UN, LYTES, PP, CREAT, LIPID, CBC #### [facility] [address] Platelets [#/volume] in Bloo d by Automated countOrdered By: Tory Joseph on 07-23-2024 Platelets (Bld) [#/Vol] 164 10*3/uL Normal 150-450 [facility] Comment on above: Performed By: #### B UN, LYTES, PP, CREAT, LIPID, CBC #### [address] Potassium [Moles/volume] in Serum or PlasmaOrdered By: Tory Joseph on 07-23-2024 Potassium [Moles/Vol] 4.4 mmol/L Normal 3.5-5.1 [facility] Comment on above: Performed By: #### B UN, LYTES, PP, CREAT, LIPID, CBC #### [address] Prothrombin time (PT)Ordered By: Tory Joseph on 07-23-2024 PT Coag (PPP) [Time] 12.3 s Normal 9.0-12.9 [facility] Comment on above: A hematocrit value g reater than 55% may lead to inaccurate results in coagulation testing. Patients having hematocrit values >55% require a special collection tube for coagulation studies. Please contact the laboratory at [phone] for redraw instructions. Result Comment: A he matocrit value greater than 55% may lead to inaccurate results in coagulation testing. Patients having hematocrit values >55% require a special collection tube for coagulation studies. Please contact the laboratory at [phone] for redraw instructions. Performed By: #### B UN, LYTES, PP, CREAT, LIPID, CBC #### [address] Serum or plasma anion gap de terminationOrdered By: Tory Joseph on 07-23-2024 Anion gap [Moles/Vol] 8.4 mmol/L Normal 6.0-15.0 [facility] Comment on above: Performed By: #### B UN, LYTES, PP, CREAT, LIPID, CBC #### [address] Serum or plasma high density lipoprotein (HDL) cholesterol measurementOrdered By: Tory Joseph on 07-23-2024 Cholesterol in HDL [Mass/Vol] 32 mg/dL Normal 23-92 [facility] Comment on above: HDL CHOL ATP-III CLA SSIFICATION Cardiovascular RiskHDL > or equal to 60 mg/dL LOWHDL < 40 mg/dL HIGH Result Comment: HDL CHOL ATP-III CLASSIFICATION Cardiovascular Risk HDL > or equal to 60 mg/dL LOW HDL < 40 mg/dL HIGH Performed By: #### B UN, LYTES, PP, CREAT, LIPID, CBC #### [facility] [address] Serum or plasma total choles terol/high density lipoprotein (HDL) cholesterol mass ratOrdered By: Tory Joseph on 07-23-2024 Cholesterol.total/Chol esterol in HDL [Mass ratio] 4.3 {ratio} Normal <5.0 [facility] Comment on above: Result Comment: PERF ORMED BY: [place] [address] PATHOLOGIST [employer] JESUS DIOR M.D. Performed By: #### B UN, LYTES, PP, CREAT, LIPID, CBC #### [facility] [address] [place] [address] Sodium [Moles/volume] in Ser um or PlasmaOrdered By: Tory Joseph on 07-23-2024 Sodium [Moles/Vol] 143 mmol/L Normal 136-145 [facility] Comment on above: Performed By: #### B UN, LYTES, PP, CREAT, LIPID, CBC #### [facility] [address] Triglyceride [Mass/volume] i n Serum or PlasmaOrdered By: Tory Joseph on 07-23-2024 Triglyceride [Mass/Vol] 76 mg/dL 0-149 [facility] Comment on above: TRIG ATP III CLASSIF ICATIONTRIG less than 150 mg/dL NormalTRIG 150-199 mg/dL Borderline highTRIG 200-500 mg/dL High TRIG greater than 500 mg/dL Very highStandard traceable to the Center for Disease Conrtrol and Prevention (CDC) test method. Urea nitrogen [Mass/volume] in Serum or PlasmaOrdered By: Tory Joseph on 07-23-2024 Urea nitrogen [Mass/Vol] 13 mg/dL Normal 7-25 [facility] Comment on above: Performed By: #### B UN, LYTES, PP, CREAT, LIPID, CBC #### [facility] [address] ECG 12 Leadon 07-22-2024 Sinus rhythm, right bundle branch block, left anterior fascicular block, abnormal ECG [facility] Work Phone: [facility] Work Phone: Laboratory - Coagulationon 1 aPTT Coag (Bld) [Time] 61.0 s 48.2-68.6 [facility] No Panel Informationon 07-15 Troponin I High Sensitivity 23.4 pg/mL 4.0-76.1 [facility] Comment on above: CUT-OFF POINTS HAVE BEEN ESTABLISHED BASED ON THE FOURTHIVERSAL DEFINITION OF MYOCARDIAL INFARCTION. THE UPPERREFERENCE LIMIT [...] aPTT Coag (PPP) [Time] 27.9 s 22.3-36.2 [facility] Basophils Auto (Bld) [#/Vol] on 07-14-2024 Basophils (Bld) [#/Vol] 0.0 10 3/uL 0.0-0.1 [facility] Basophils/100 WBC Auto (Bld) on 07-14-2024 Basophils/100 WBC (Bld) 0.7 % 0.2-2.0 [facility] Eosinophils/100 WBC Auto (Bl d)on 07-14-2024 Eosinophils/100 WBC (Bld) 3.1 % 0.9-7.0 [facility] Erythrocyte distribution wid th Auto (RBC) [Ratio]on 07-14-2024 Erythrocyte distribution width (RBC) [Ratio] 16.3 % High 11.0-15.0 [facility] Estimated glomerular filtrat ion rate (GFR) non- Americanon 07-14-2024 GFR/1.73 sq M.predicted among non-blacks MDRD (S/P/Bld) [Vol rate/Area] mL/min/{1.73_m2} >=60 [facility] Globulin Calc (S) [Mass/Vol] on 07-14-2024 Globulin (S) [Mass/Vol] 3.5 g/dL [facility] Hematocrit Auto (Bld) [Volum e fraction]on 07-14-2024 Hematocrit (Bld) [Volume fraction] 40.0 % Low 42.0-54.0 [facility] Hemoglobin [Mass/volume] in Bloodon 07-14-2024 Hemoglobin (Bld) [Mass/Vol] 13.6 g/dL Low 14.0-18.0 [facility] INR in Platelet poor plasma by Coagulation assayon 07-14-2024 INR Coag (PPP) [Relative time] 1.03 {INR} [facility] Comment on above: DESIRED INR:2.0-3.0 CONDITIONS NOT LISTED BELOW2.5-3.5 FOR PROSTHETIC HEART VALVE REPLACEMENT2.5-3.5 RECURRENT THROMBOSIS Laboratory - Chemistry and C hemistry - challengeon 07-14-2024 CK [Catalytic activity/Vol] 59 U/L 39-308 [facility] CK.MB [Mass/Vol] 0.80 ng/mL <=3.60 [facility] Albumin [Mass/Vol] 3.6 g/dL 3.4-5.0 [facility] ALP [Catalytic activity/Vol] 110 U/L 46-116 [facility] ALT [Catalytic activity/Vol] 22 U/L 16-63 [facility] AST [Catalytic activity/Vol] 15 U/L 15-37 [facility] Bilirubin [Mass/Vol] 0.4 mg/dL 0.2-1.0 [facility] Calcium [Mass/Vol] 9.7 mg/dL 8.5-10.1 [facility] Chloride [Moles/Vol] 105 mmol/L 98-107 [facility] CO2 [Moles/Vol] 32.0 mmol/L 21.0-32.0 [facility] Creatinine [Mass/Vol] 0.94 mg/dL 0.70-1.30 [facility] GFR/1.73 sq M.predicted MDRD (S/P/Bld) [Vol rate/Area] mL/min/{1.73_m2} >=60 [facility] Glucose [Mass/Vol] 110 mg/dL High 74-106 [facility] Lipase [Catalytic activity/Vol] 36.0 U/L 16.0-77.0 [facility] Natriuretic peptide B (Bld) [Mass/Vol] 127.0 pg/mL <=1800.0 [facility] Potassium [Moles/Vol] 3.3 mmol/L Low 3.5-5.1 [facility] Protein [Mass/Vol] 7.1 g/dL 6.4-8.2 [facility] Sodium [Moles/Vol] 141 mmol/L 136-145 [facility] Urea nitrogen [Mass/Vol] 14.0 mg/dL 7.0-18.0 [facility] Urea nitrogen/Creatinine [Mass ratio] 14.9 mg/mg [facility] Laboratory - Hematology and Cell countson 07-14-2024 Immature granulocytes/100 WBC (Bld) 0.2 % 0.0-0.5 [facility] Leukocytes [#/volume] correc jignesh for nucleated erythrocytes in Blood by Automated counon 07-14-2024 WBC corrected for nucl RBC Auto (Bld) [#/Vol] 6.1 10 3/uL 4.0-11.0 [facility] Lymphocytes Auto (Bld) [#/Vo l]on 07-14-2024 Lymphocytes (Bld) [#/Vol] 1.3 10 3/uL 1.2-3.8 [facility] Lymphocytes/100 WBC Auto (Bl d)on 07-14-2024 Lymphocytes/100 WBC (Bld) 21.9 % 20.5-60.0 [facility] MCH Auto (RBC) [Entitic mass ]on 07-14-2024 MCH (RBC) [Entitic mass] 31.7 pg 25.9-34.0 [facility] MCHC Auto (RBC) [Mass/Vol]on 07-14-2024 MCHC (RBC) [Mass/Vol] 34.0 g/dL 29.9-35.2 [facility] MCV Auto (RBC) [Entitic vol] on 07-14-2024 MCV (RBC) [Entitic vol] 93.2 fL 80.0-94.0 [facility] Monocytes Auto (Bld) [#/Vol] on 07-14-2024 Monocytes (Bld) [#/Vol] 0.7 10 3/uL 0.3-0.8 [facility] Monocytes/100 WBC Auto (Bld) on 07-14-2024 Monocytes/100 WBC (Bld) 11.2 % 1.7-12.0 [facility] Neutrophils Auto (Bld) [#/Vo l]on 07-14-2024 Neutrophils (Bld) [#/Vol] 3.8 10 3/uL 1.4-6.5 [facility] Neutrophils/100 WBC Auto (Bl d)on 07-14-2024 Neutrophils/100 WBC (Bld) 62.9 % 43.0-75.0 [facility] No Panel Informationon 07-14 Troponin I High Sensitivity 20.5 pg/mL 4.0-76.1 [facility] Comment on above: CUT-OFF POINTS HAVE BEEN [...] Eosinophils # (Auto) 0.2 10 3/uL 0.0-0.7 [facility] Immature Granulocyte # (Auto) 0.01 10 3/uL 0.00-0.03 [facility] Platelet mean volume Auto (B ld) [Entitic vol]on 07-14-2024 Platelet mean volume (Bld) [Entitic vol] 10.8 fL 9.5-13.5 [facility] Platelets Auto (Bld) [#/Vol] on 07-14-2024 Platelets (Bld) [#/Vol] 167 10 3/uL 150-450 [facility] Prothrombin time (PT)on 06-17 PT Coag (PPP) [Time] 10.9 s 9.0-11.6 [facility] RBC Auto (Bld) [#/Vol]on RBC (Bld) [#/Vol] 4.29 10 6/uL Low 4.70-6.10 [facility] Serum or plasma albumin/glob ulin mass ratioon 07-14-2024 Albumin/Globulin [Mass ratio] 1.0 {ratio} [facility] Serum or plasma anion gap de terminationon 07-14-2024 Anion gap [Moles/Vol] 7.3 mmol/L [facility] Basophils Auto (Bld) [#/Vol] on 06-28-2024 Basophils (Bld) [#/Vol] 0.0 10 3/uL 0.0-0.1 [facility] Basophils/100 WBC Auto (Bld) on 06-28-2024 Basophils/100 WBC (Bld) 0.4 % 0.2-2.0 [facility] Eosinophils/100 WBC Auto (Bl d)on 06-28-2024 Eosinophils/100 WBC (Bld) 1.8 % 0.9-7.0 [facility] Erythrocyte distribution wid th Auto (RBC) [Ratio]on 06-28-2024 Erythrocyte distribution width (RBC) [Ratio] 16.0 % High 11.0-15.0 [facility] Estimated glomerular filtrat ion rate (GFR) non- Americanon 06-28-2024 GFR/1.73 sq M.predicted among non-blacks MDRD (S/P/Bld) [Vol rate/Area] mL/min/{1.73_m2} >=60 [facility] Globulin Calc (S) [Mass/Vol] on 06-28-2024 Globulin (S) [Mass/Vol] 3.1 g/dL [facility] Hematocrit Auto (Bld) [Volum e fraction]on 06-28-2024 Hematocrit (Bld) [Volume fraction] 42.0 % 42.0-54.0 [facility] Hemoglobin [Mass/volume] in Bloodon 06-28-2024 Hemoglobin (Bld) [Mass/Vol] 14.2 g/dL 14.0-18.0 [facility] Laboratory - Chemistry and C hemistry - challengeon 06-28-2024 Albumin [Mass/Vol] 3.4 g/dL 3.4-5.0 [facility] ALP [Catalytic activity/Vol] 107 U/L 46-116 [facility] ALT [Catalytic activity/Vol] 25 U/L 16-63 [facility] AST [Catalytic activity/Vol] 18 U/L 15-37 [facility] Bilirubin [Mass/Vol] 1.0 mg/dL 0.2-1.0 [facility] Calcium [Mass/Vol] 9.3 mg/dL 8.5-10.1 [facility] Chloride [Moles/Vol] 107 mmol/L 98-107 [facility] CO2 [Moles/Vol] 30.9 mmol/L 21.0-32.0 [facility] Creatinine [Mass/Vol] 0.67 mg/dL Low 0.70-1.30 [facility] GFR/1.73 sq M.predicted MDRD (S/P/Bld) [Vol rate/Area] mL/min/{1.73_m2} >=60 [facility] Glucose [Mass/Vol] 99 mg/dL 74-106 [facility] Potassium [Moles/Vol] 3.7 mmol/L 3.5-5.1 [facility] Protein [Mass/Vol] 6.5 g/dL 6.4-8.2 [facility] Sodium [Moles/Vol] 144 mmol/L 136-145 [facility] Urea nitrogen [Mass/Vol] 14.0 mg/dL 7.0-18.0 [facility] Urea nitrogen/Creatinine [Mass ratio] 20.9 mg/mg [facility] Laboratory - Hematology and Cell countson 06-28-2024 Immature granulocytes/100 WBC (Bld) 0.4 % 0.0-0.5 [facility] Leukocytes [#/volume] correc jignesh for nucleated erythrocytes in Blood by Automated counon 06-28-2024 WBC corrected for nucl RBC Auto (Bld) [#/Vol] 5.0 10 3/uL 4.0-11.0 [facility] Lymphocytes Auto (Bld) [#/Vo l]on 06-28-2024 Lymphocytes (Bld) [#/Vol] 1.0 10 3/uL Low 1.2-3.8 [facility] Lymphocytes/100 WBC Auto (Bl d)on 06-28-2024 Lymphocytes/100 WBC (Bld) 19.6 % Low 20.5-60.0 [facility] MCH Auto (RBC) [Entitic mass ]on 06-28-2024 MCH (RBC) [Entitic mass] 31.3 pg 25.9-34.0 [facility] MCHC Auto (RBC) [Mass/Vol]on 06-28-2024 MCHC (RBC) [Mass/Vol] 33.8 g/dL 29.9-35.2 [facility] MCV Auto (RBC) [Entitic vol] on 06-28-2024 MCV (RBC) [Entitic vol] 92.7 fL 80.0-94.0 [facility] Monocytes Auto (Bld) [#/Vol] on 06-28-2024 Monocytes (Bld) [#/Vol] 0.5 10 3/uL 0.3-0.8 [facility] Monocytes/100 WBC Auto (Bld) on 06-28-2024 Monocytes/100 WBC (Bld) 10.4 % 1.7-12.0 [facility] Neutrophils Auto (Bld) [#/Vo l]on 06-28-2024 Neutrophils (Bld) [#/Vol] 3.4 10 3/uL 1.4-6.5 [facility] Neutrophils/100 WBC Auto (Bl d)on 06-28-2024 Neutrophils/100 WBC (Bld) 67.4 % 43.0-75.0 [facility] No Panel Informationon 06-28 Eosinophils # (Auto) 0.1 10 3/uL 0.0-0.7 [facility] Immature Granulocyte # (Auto) 0.02 10 3/uL 0.00-0.03 [facility] Troponin I High Sensitivity 13.4 pg/mL 4.0-76.1 [facility] Comment on above: CUT-OFF POINTS HAVE BEEN [...] (Bld) [Entitic vol] 10.3 fL 9.5-13.5 [facility] Platelets Auto (Bld) [#/Vol] on 06-28-2024 Platelets (Bld) [#/Vol] 161 10 3/uL 150-450 [facility] RBC Auto (Bld) [#/Vol]on RBC (Bld) [#/Vol] 4.53 10 6/uL Low 4.70-6.10 [facility] Serum or plasma albumin/glob ulin mass ratioon 06-28-2024 Albumin/Globulin [Mass ratio] 1.1 {ratio} [facility] Serum or plasma anion gap de terminationon 06-28-2024 Anion gap [Moles/Vol] 9.8 mmol/L [facility] Basophils Auto (Bld) [#/Vol] on 06-27-2024 Basophils (Bld) [#/Vol] 0.0 10 3/uL 0.0-0.1 [facility] Basophils/100 WBC Auto (Bld) on 06-27-2024 Basophils/100 WBC (Bld) 0.8 % 0.2-2.0 [facility] Cholesterol in LDL Calc [Mas s/Vol]on 06-27-2024 Cholesterol in LDL [Mass/Vol] 82.6 mg/dL [facility] Comment on above: <100 mg/dl [id number] 0-129 mg/dl NEAR OR ABOVE [id number] mg/dl BORDERLINE [id number] mg/dl HIGH>190 mg/dl VERY HIGH Cholesterol in VLDL Calc [Ma ss/Vol]on 06-27-2024 Cholesterol in VLDL [Mass/Vol] 15.4 mg/dL [facility] Eosinophils/100 WBC Auto (Bl d)on 06-27-2024 Eosinophils/100 WBC (Bld) 2.7 % 0.9-7.0 [facility] Erythrocyte distribution wid th Auto (RBC) [Ratio]on 06-27-2024 Erythrocyte distribution width (RBC) [Ratio] 16.2 % High 11.0-15.0 [facility] Estimated glomerular filtrat ion rate (GFR) non- Americanon 06-27-2024 GFR/1.73 sq M.predicted among non-blacks MDRD (S/P/Bld) [Vol rate/Area] mL/min/{1.73_m2} >=60 [facility] Globulin Calc (S) [Mass/Vol] on 06-27-2024 Globulin (S) [Mass/Vol] 3.4 g/dL [facility] Glucose mean value [Mass/vol ume] in Blood Estimated from glycated hemoglobinon 06-27-2024 Average glucose Estimated from glycated hemoglobin (Bld) [Mass/Vol] 114 mg/dL [facility] Hematocrit Auto (Bld) [Volum e fraction]on 06-27-2024 Hematocrit (Bld) [Volume fraction] 40.7 % Low 42.0-54.0 [facility] Hemoglobin [Mass/volume] in Bloodon 06-27-2024 Hemoglobin (Bld) [Mass/Vol] 13.9 g/dL Low 14.0-18.0 [facility] Laboratory - Chemistry and C hemistry - challengeon 06-27-2024 Albumin [Mass/Vol] 3.6 g/dL 3.4-5.0 [facility] ALP [Catalytic activity/Vol] 101 U/L 46-116 [facility] ALT [Catalytic activity/Vol] 25 U/L 16-63 [facility] AST [Catalytic activity/Vol] 16 U/L 15-37 [facility] Bilirubin [Mass/Vol] 0.8 mg/dL 0.2-1.0 [facility] Calcium [Mass/Vol] 9.5 mg/dL 8.5-10.1 [facility] Chloride [Moles/Vol] 105 mmol/L 98-107 [facility] Cholesterol [Mass/Vol] 139 mg/dL <=200 [facility] Cholesterol in HDL [Mass/Vol] 41 mg/dL 40-60 [facility] Comment on above: > or =60 mg/dl - LOW CARDIOVASCULAR RISK<40 mg/dl - HIGH CARDIOVASCULAR RISK CO2 [Moles/Vol] 31.8 mmol/L 21.0-32.0 [facility] Creatinine [Mass/Vol] 0.65 mg/dL Low 0.70-1.30 [facility] GFR/1.73 sq M.predicted MDRD (S/P/Bld) [Vol rate/Area] mL/min/{1.73_m2} >=60 [facility] Glucose [Mass/Vol] 107 mg/dL High 74-106 [facility] Potassium [Moles/Vol] 3.6 mmol/L 3.5-5.1 [facility] Protein [Mass/Vol] 7.0 g/dL 6.4-8.2 [facility] Sodium [Moles/Vol] 141 mmol/L 136-145 [facility] Triglyceride [Mass/Vol] 77 mg/dL <=150 [facility] Urea nitrogen [Mass/Vol] 16.0 mg/dL 7.0-18.0 [facility] Urea nitrogen/Creatinine [Mass ratio] 24.6 mg/mg [facility] Laboratory - Hematology and Cell countson 06-27-2024 HbA1c (Bld) [Mass fraction] 5.6 % 4.5-6.2 [facility] Comment on above: ADA RECOMMENDED LIMI T 4.0 - 6.0ADA THERAPEUTIC TARGET < 7.0ACTION SUGGESTED> 7.0 Immature granulocytes/100 WBC (Bld) 0.2 % 0.0-0.5 [facility] Leukocytes [#/volume] correc jignesh for nucleated erythrocytes in Blood by Automated counon 06-27-2024 WBC corrected for nucl RBC Auto (Bld) [#/Vol] 4.7 10 3/uL 4.0-11.0 [facility] Lymphocytes Auto (Bld) [#/Vo l]on 06-27-2024 Lymphocytes (Bld) [#/Vol] 1.0 10 3/uL Low 1.2-3.8 [facility] Lymphocytes/100 WBC Auto (Bl d)on 06-27-2024 Lymphocytes/100 WBC (Bld) 21.7 % 20.5-60.0 [facility] MCH Auto (RBC) [Entitic mass ]on 06-27-2024 MCH (RBC) [Entitic mass] 31.9 pg 25.9-34.0 [facility] MCHC Auto (RBC) [Mass/Vol]on 06-27-2024 MCHC (RBC) [Mass/Vol] 34.2 g/dL 29.9-35.2 [facility] MCV Auto (RBC) [Entitic vol] on 06-27-2024 MCV (RBC) [Entitic vol] 93.3 fL 80.0-94.0 [facility] Monocytes Auto (Bld) [#/Vol] on 06-27-2024 Monocytes (Bld) [#/Vol] 0.6 10 3/uL 0.3-0.8 [facility] Monocytes/100 WBC Auto (Bld) on 06-27-2024 Monocytes/100 WBC (Bld) 13.1 % High 1.7-12.0 [facility] Neutrophils Auto (Bld) [#/Vo l]on 06-27-2024 Neutrophils (Bld) [#/Vol] 2.9 10 3/uL 1.4-6.5 [facility] Neutrophils/100 WBC Auto (Bl d)on 06-27-2024 Neutrophils/100 WBC (Bld) 61.5 % 43.0-75.0 [facility] No Panel Informationon 06-27 Troponin I High Sensitivity 14.3 pg/mL 4.0-76.1 [facility] Comment on above: CUT-OFF POINTS HAVE BEEN [...] Eosinophils # (Auto) 0.1 10 3/uL 0.0-0.7 [facility] Immature Granulocyte # (Auto) 0.01 10 3/uL 0.00-0.03 [facility] Platelet mean volume Auto (B ld) [Entitic vol]on 06-27-2024 Platelet mean volume (Bld) [Entitic vol] 10.5 fL 9.5-13.5 [facility] Platelets Auto (Bld) [#/Vol] on 06-27-2024 Platelets (Bld) [#/Vol] 163 10 3/uL 150-450 [facility] RBC Auto (Bld) [#/Vol]on RBC (Bld) [#/Vol] 4.36 10 6/uL Low 4.70-6.10 [facility] Serum or plasma albumin/glob ulin mass ratioon 06-27-2024 Albumin/Globulin [Mass ratio] 1.1 {ratio} [facility] Serum or plasma anion gap de terminationon 06-27-2024 Anion gap [Moles/Vol] 7.8 mmol/L [facility] Serum or plasma total choles terol/high density lipoprotein (HDL) cholesterol mass kelsey 06-27-2024 Cholesterol.total/Chol esterol in HDL [Mass ratio] 3.4 {ratio} [facility] Comment on above: 3.3 - 4.4 LOW [...] lymphadenectomy done 06/20/[address] Freedman - [id number] ([place] 4+3) +EPE,+margin. Underwent salvage radiation for rising [...] CNOVon 05-20-2024 CNOV Office Visit ([facility] ) -- YONI RAMIREZ ([id number]) 1945 M Date Time Provider Department 05/20/24 [...] day. lisinop (more content not included)... Normal [facility] No Panel Informationon 05-13 Prostate Specific Antigen <0.02 ng/mL <2.60 [facility] Comment on above: Total PSA test metho dology used is the Electrochemiluminescence Immunoassay by [employer]. Total PSA values by differing methodologies cannot be interchanged. PSA SerPl-mCncon 05-13-2024 Prostate specific Ag [Mass/Vol] ng/mL Normal <2.60 [facility] Comment on above: Order Comment: Speci men Type: BLOOD SPECIMEN Ordering Facility: [facility] Address: [address] [place] [address] Result Comment: Tota l PSA test methodology used is the Electrochemiluminescence Immunoassay by [employer]. Total PSA values by differing methodologies cannot be interchanged. Performed By: #### 2 857-1 #### [facility] CLIA [id number] [address] [place], [place] [address] [place] CNOVon 04-01-2024 CNOV Office Visit ([facility] ) -- YONI RAMIREZ ([id number]) 1945 M Date Time Provider Department 04/01/24 10:00 AM DONATO BISHOP [facility] During your visit today, we recorded the following information about you: Temperature Pulse Blood pressure 97 degrees 58/minute 162/67 Donato Bishop MD 04/07/2024 4:[address] [facility] - Follow [...] Bishop MD 04/01/24, 10:35 AM General Surgery [facility] Medical Decision Making: Problems: Low: Stable [...] No Drains: No Referring Provider: BRO CHAVEZ [[id number]] Allergies As of Date: 04/01/2024 (No Known [...] for pain. (more content not included)... Normal [facility] CT ABD/PEL WO IVCONon 2023 CT ABD/PEL WO IVCON * * *Final Report* * * DATE OF EXAM: Apr 01 2024 1:54PM [facility] 0531 - CT ABD/PEL WO [...] or recurrent hernia. 2. Bilateral nonobstructive nephrolithiasis. Mime Artist: ROSNAA Transcribe Date/Time: Apr 02 2024 9:22A Dictated by : LANCE CUNHA MD This examination was interpreted and the report reviewed and electronically signed by: LANCE CUNHA MD on Apr 02 2024 9:31AM EST [id number] Normal [facility] Basophils Auto (Bld) [#/Vol] on 01-30-2024 Basophils (Bld) [#/Vol] 0.0 10 3/uL 0.0-0.1 [facility] Basophils/100 WBC Auto (Bld) on 01-30-2024 Basophils/100 WBC (Bld) 0.8 % 0.2-2.0 [facility] Eosinophils/100 WBC Auto (Bl d)on 01-30-2024 Eosinophils/100 WBC (Bld) 3.2 % 0.9-7.0 [facility] Erythrocyte distribution wid th Auto (RBC) [Ratio]on 01-30-2024 Erythrocyte distribution width (RBC) [Ratio] 16.1 % High 11.0-15.0 [facility] Hematocrit Auto (Bld) [Volum e fraction]on 01-30-2024 Hematocrit (Bld) [Volume fraction] 40.0 % Low 42.0-54.0 [facility] Hemoglobin [Mass/volume] in Bloodon 01-30-2024 Hemoglobin (Bld) [Mass/Vol] 13.0 g/dL Low 14.0-18.0 [facility] Laboratory - Chemistry and C hemistry - challengeon 01-30-2024 Ferritin [Mass/Vol] 71.0 ng/mL 26.0-388.0 [facility] Laboratory - Hematology and Cell countson 01-30-2024 Immature granulocytes/100 WBC (Bld) 0.2 % 0.0-0.5 [facility] Leukocytes [#/volume] correc jignesh for nucleated erythrocytes in Blood by Automated counon 01-30-2024 WBC corrected for nucl RBC Auto (Bld) [#/Vol] 4.9 10 3/uL 4.0-11.0 [facility] Lymphocytes Auto (Bld) [#/Vo l]on 01-30-2024 Lymphocytes (Bld) [#/Vol] 1.1 10 3/uL Low 1.2-3.8 [facility] Lymphocytes/100 WBC Auto (Bl d)on 01-30-2024 Lymphocytes/100 WBC (Bld) 21.7 % 20.5-60.0 [facility] MCH Auto (RBC) [Entitic mass ]on 01-30-2024 MCH (RBC) [Entitic mass] 30.2 pg 25.9-34.0 [facility] MCHC Auto (RBC) [Mass/Vol]on 01-30-2024 MCHC (RBC) [Mass/Vol] 32.5 g/dL 29.9-35.2 [facility] MCV Auto (RBC) [Entitic vol] on 01-30-2024 MCV (RBC) [Entitic vol] 92.8 fL 80.0-94.0 [facility] Monocytes Auto (Bld) [#/Vol] on 01-30-2024 Monocytes (Bld) [#/Vol] 0.6 10 3/uL 0.3-0.8 [facility] Monocytes/100 WBC Auto (Bld) on 01-30-2024 Monocytes/100 WBC (Bld) 11.9 % 1.7-12.0 [facility] Neutrophils Auto (Bld) [#/Vo l]on 01-30-2024 Neutrophils (Bld) [#/Vol] 3.1 10 3/uL 1.4-6.5 [facility] Neutrophils/100 WBC Auto (Bl d)on 01-30-2024 Neutrophils/100 WBC (Bld) 62.2 % 43.0-75.0 [facility] No Panel Informationon 01-29 Eosinophils # (Auto) 0.2 10 3/uL 0.0-0.7 [facility] Immature Granulocyte # (Auto) 0.01 10 3/uL 0.00-0.03 [facility] Platelet mean volume Auto (B ld) [Entitic vol]on 01-30-2024 Platelet mean volume (Bld) [Entitic vol] 11.0 fL 9.5-13.5 [facility] Platelets Auto (Bld) [#/Vol] on 01-30-2024 Platelets (Bld) [#/Vol] 190 10 3/uL 150-450 [facility] RBC Auto (Bld) [#/Vol]on RBC (Bld) [#/Vol] 4.31 10 6/uL Low 4.70-6.10 [facility] Basic metabolic 2000 panelon 02-28-2023 Anion gap [Moles/Vol] 12 mmol/L Normal 9-18 [facility] Comment on above: Order Comment: Speci men Type: BLOOD SPECIMEN Ordering Facility: [facility] Address: [address] [address] Performed By: #### 2 4321-2, #### [facility] CLIA [id number] [address] [place] [address] [place] Calcium [Mass/Vol] 8.7 mg/dL Normal 8.5-10.2 [facility] Comment on above: Order Comment: Speci men Type: BLOOD SPECIMEN Ordering Facility: [facility] Address: [address] [address] Performed By: #### 2 432-2, #### [facility] CLIA [id number] [address] [place] [address] [place] Chloride [Moles/Vol] 103 mmol/L Normal 97-105 [facility] Comment on above: Order Comment: Speci men Type: BLOOD SPECIMEN Ordering Facility: [facility] Address: [address] [address] Performed By: #### 2 432-2, #### [facility] CLIA [id number] [address] [place] [address] [place] CO2 [Moles/Vol] 24 mmol/L Normal 22-30 [facility] Comment on above: Order Comment: Speci men Type: BLOOD SPECIMEN Ordering Facility: [facility] Address: [address] [id number] Performed By: #### 2 4321-2, #### [facility] CLIA [id number] [address] [id number] [place] Creatinine [Mass/Vol] 0.49 mg/dL Low 0.73-1.22 [facility] Comment on above: Order Comment: John chan Type: BLOOD SPECIMEN Ordering Facility: [facility] Address: [address] [address] Performed By: #### 2 4321-2, #### [facility] CLIA [id number] [address] [id number] [place] ESTIMATED GLOMERULAR FILTRATION RATE 107 mL/min/1.73m??? Normal >=60 [facility] Comment on above: Order Comment: John chan Type: BLOOD SPECIMEN Ordering Facility: [facility] Address: [address] [address] Result Comment: Trena mated Glomerular Filtration Rate [...] GFR. Performed By: #### 2 4321-2, #### [facility] CLIA [id number] [place], [place] [id number] [place] Glucose [Mass/Vol] 92 mg/dL Normal 74-99 [facility] Comment on above: Order Comment: John rocio Type: BLOOD SPECIMEN Ordering Facility: [facility] Address: [address] [address] Result Comment: The [place] [employer] (ADA) provides guidance for cutoff [...] Standards of Medical Care in Diabetes 2016, [place] [employer]. Diabetes Care. 2016.39(Suppl 1). Performed By: #### 2 4320-11, #### [facility] CLIA [id number] [address] [place] [address] [place] Potassium [Moles/Vol] 3.8 mmol/L Normal 3.7-5.1 [facility] Comment on above: Order Comment: John chan Type: BLOOD SPECIMEN Ordering Facility: [facility] Address: [address] [place] [address] Performed By: #### 2 4320-11, #### [facility] CLIA [id number] [address] [place] [address] [place] Sodium [Moles/Vol] 139 mmol/L Normal 136-144 [facility] Comment on above: Order Comment: John chan Type: BLOOD SPECIMEN Ordering Facility: [facility] Address: [address] [place] [address] Performed By: #### 2 4320-11, #### [facility] CLIA [id number] [address] [place] [address] [place] Urea nitrogen [Mass/Vol] 8 mg/dL Low 9-24 [facility] Comment on above: Order Comment: Josyi men Type: BLOOD SPECIMEN Ordering Facility: [facility] Address: [address] [place] [address] Performed By: #### 2 4320-11, #### [facility] CLIA [id number] [address] [place] [address] [place] CBC W Auto Differential pane l (Bld)on 02-28-2023 Basophils (Bld) [#/Vol] 0.03 10*3/uL Normal <0.11 [facility] Comment on above: Order Comment: Speci men Type: BLOOD SPECIMEN Ordering Facility: [facility] Address: [address] [address] Performed By: #### 2 4320-11, #### [facility] CLIA [id number] [address] [place] [address] [place] Basophils/100 WBC (Bld) 0.6 % Normal [facility] Comment on above: Order Comment: Speci men Type: BLOOD SPECIMEN Ordering Facility: [facility] Address: [address] [place] [address] Performed By: #### 2 4320-11, #### [facility] CLIA [id number] [address] [place] [address] [place] Differential cell count method Nom (Bld) Auto Normal [facility] Comment on above: Order Comment: Speci men Type: BLOOD SPECIMEN Ordering Facility: [facility] Address: [address] [place] [address] Performed By: #### 2 4320-11, #### [facility] CLIA [id number] [address] [place] [address] [place] Eosinophils (Bld) [#/Vol] 0.36 10*3/uL Normal <0.46 [facility] Comment on above: Order Comment: Speci men Type: BLOOD SPECIMEN Ordering Facility: [facility] Address: [address] [place] [address] Performed By: #### 2 4320-11, #### [facility] CLIA [id number] [address] [place] [address] [place] Eosinophils/100 WBC (Bld) 7.5 % Normal [facility] Comment on above: Order Comment: Speci men Type: BLOOD SPECIMEN Ordering Facility: [facility] Address: [address] [place] [address] Performed By: #### 2 4320-11, #### [facility] CLIA [id number] [address] [place] [address] [place] Erythrocyte distribution width (RBC) [Ratio] 15.4 % High 11.5-15.0 [facility] Comment on above: Order Comment: Speci men Type: BLOOD SPECIMEN Ordering Facility: [facility] Address: [address] [address] Performed By: #### 2 4320-11, #### [facility] CLIA [id number] [address] [place] [address] [place] Hematocrit (Bld) [Volume fraction] 36.0 % Low 39.0-51.0 [facility] Comment on above: Order Comment: Speci men Type: BLOOD SPECIMEN Ordering Facility: [facility] Address: [address] [address] Performed By: #### 2 4320-11, #### [facility] CLIA [id number] [address] [place] [address] [place] Hemoglobin (Bld) [Mass/Vol] 12.1 g/dL Low 13.0-17.0 [facility] Comment on above: Order Comment: Speci men Type: BLOOD SPECIMEN Ordering Facility: [facility] Address: [address] [address] Performed By: #### 2 4320-11, #### [facility] CLIA [id number] [address] [place] [address] [place] Immature granulocytes (Bld) [#/Vol] 10*3/uL Normal <0.10 [facility] Comment on above: Order Comment: Speci men Type: BLOOD SPECIMEN Ordering Facility: [facility] Address: [address] [address] Performed By: #### 2 4320-11, #### [facility] CLIA [id number] [address] [place] [address] [place] Immature granulocytes/100 WBC (Bld) 0.4 % Normal [facility] Comment on above: Order Comment: Speci men Type: BLOOD SPECIMEN Ordering Facility: [facility] Address: [address] [address] Performed By: #### 2 4320-11, #### [facility] CLIA [id number] [address] [place] [address] [place] Lymphocytes (Bld) [#/Vol] 0.61 10*3/uL Low 1.00-4.00 [facility] Comment on above: Order Comment: Speci men Type: BLOOD SPECIMEN Ordering Facility: [facility] Address: [address] [place] [address] Performed By: #### 2 4320-11, #### [facility] CLIA [id number] [address] [place] [address] [place] Lymphocytes/100 WBC (Bld) 12.6 % Normal [facility] Comment on above: Order Comment: Speci men Type: BLOOD SPECIMEN Ordering Facility: [facility] Address: [address] [place] [address] Performed By: #### 2 4320-11, #### [facility] CLIA [id number] [address] [place] [address] [place] MCH (RBC) [Entitic mass] 30.0 pg Normal 26.0-34.0 [facility] Comment on above: Order Comment: Speci men Type: BLOOD SPECIMEN Ordering Facility: [facility] Address: [address] [place] [address] Performed By: #### 2 4320-11, #### [facility] CLIA [id number] [address] [place] [address] [place] MCHC (RBC) [Mass/Vol] 33.6 g/dL Normal 30.5-36.0 [facility] Comment on above: Order Comment: Speci men Type: BLOOD SPECIMEN Ordering Facility: [facility] Address: [address] [place] [address] Performed By: #### 2 4320-11, #### [facility] CLIA [id number] [address] [place] [address] [place] MCV (RBC) [Entitic vol] 89.3 fL Normal 80.0-100.0 [facility] Comment on above: Order Comment: Speci men Type: BLOOD SPECIMEN Ordering Facility: [facility] Address: [address] [address] Performed By: #### 2 4320-11, #### [facility] CLIA [id number] [address] [place] [address] [place] Monocytes (Bld) [#/Vol] 0.58 10*3/uL Normal <0.87 [facility] Comment on above: Order Comment: Speci men Type: BLOOD SPECIMEN Ordering Facility: [facility] Address: [address] [address] Performed By: #### 2 4320-11, #### [facility] CLIA [id number] [address] [place] [address] [place] Monocytes/100 WBC (Bld) 12.0 % Normal [facility] Comment on above: Order Comment: Speci men Type: BLOOD SPECIMEN Ordering Facility: [facility] Address: [address] [address] Performed By: #### 2 4320-11, #### [facility] CLIA [id number] [address] [place] [address] [place] Neutrophils (Bld) [#/Vol] 3.23 10*3/uL Normal 1.45-7.50 [facility] Comment on above: Order Comment: Speci men Type: BLOOD SPECIMEN Ordering Facility: [facility] Address: [address] [address] Performed By: #### 2 4320-11, #### [facility] CLIA [id number] [address] [place] [address] [place] Neutrophils/100 WBC (Bld) 66.9 % Normal [facility] Comment on above: Order Comment: Speci men Type: BLOOD SPECIMEN Ordering Facility: [facility] Address: [address] [address] Performed By: #### 2 4320-11, #### [facility] CLIA [id number] [address] [place] [address] [place] Nucleated RBC (Bld) [#/Vol] 10*3/uL Normal <0.01 [facility] Comment on above: Order Comment: Speci men Type: BLOOD SPECIMEN Ordering Facility: [facility] Address: [address] [address] Performed By: #### 2 4320-2, #### [facility] CLIA [id number] [place] [address] [place] Nucleated RBC/100 WBC (Bld) [Ratio] 0.0 /100 WBC Normal [facility] Comment on above: Order Comment: Speci men Type: BLOOD SPECIMEN Ordering Facility: [facility] Address: [address] [place] [address] Performed By: #### 2 2, #### [facility] CLIA [id number] [address] [place] [address] [place] Platelet mean volume (Bld) [Entitic vol] 10.8 fL Normal 9.0-12.7 [facility] Comment on above: Order Comment: Speci men Type: BLOOD SPECIMEN Ordering Facility: [facility] Address: [address] [place] [address] Performed By: #### 2 2, #### [facility] CLIA [id number] [address] [place] [address] [place] Platelets (Bld) [#/Vol] 182 10*3/uL Normal 150-400 [facility] Comment on above: Order Comment: Speci men Type: BLOOD SPECIMEN Ordering Facility: [facility] Address: [address] [address] Performed By: #### 2 2, #### [facility] CLIA [id number] [address] [place] [address] [place] RBC (Bld) [#/Vol] 4.03 10*6/uL Low 4.20-6.00 [facility] Comment on above: Order Comment: Speci men Type: BLOOD SPECIMEN Ordering Facility: [facility] Address: [address] [place] [address] Performed By: #### 2 4321-2, #### [facility] CLIA [id number] [place] [address] [place] WBC (Bld) [#/Vol] 4.83 10*3/uL Normal 3.70-11.00 [facility] Comment on above: Order Comment: Speci men Type: BLOOD SPECIMEN Ordering Facility: [facility] Address: [address] [place] [address] Performed By: #### 2 4322, #### [facility] CLIA [id number] [place] [facility] Magnesium [Mass/Vol] 1.8 mg/dL Normal 1.7-2.3 [facility] Comment on above: Order Comment: Speci men Type: BLOOD SPECIMEN Ordering Facility: [facility] Address: [address] [place] [address] Performed By: #### 2 43210-16, #### [facility] CLIA [id number] [place] [address] [place] NURSING PROGon 02-28-2023 NURSING PROG HNO ID: [id number] Author: Christie Mayberry RN Service: Nursing Author Type: Registered Nurse Type: Nursing Progress Note Filed: 02/28/2023 7:43 AM Note Text: 2016: BP 179/67 and 167/62. HR 79. Asymptomatic. No prn BP meds on. Text page sent to surgery for further orders. 2022: Scheduled and PRN BP meds ordered. Normal [facility] Phosphate SerPl-ncon 02-28 Phosphate [Mass/Vol] 3.0 mg/dL Normal 2.7-4.8 [facility] Comment on above: Order Comment: Speci men Type: BLOOD SPECIMEN Ordering Facility: [facility] Address: [address] [place] [address] Performed By: #### 2 4322, #### [facility] CLIA [id number] [address] [place] [address] [place] Basic metabolic 2000 panelon 02-27-2023 Anion gap [Moles/Vol] 10 mmol/L Normal 9-18 [facility] Comment on above: Order Comment: Speci men Type: BLOOD SPECIMEN Ordering Facility: [facility] Address: [address] [place] [address] Performed By: #### 2 4321-2, , 2776-10 #### [facility] CLIA [id number] [address] [place] [address] [place] Calcium [Mass/Vol] 8.6 mg/dL Normal 8.5-10.2 [facility] Comment on above: Order Comment: Speci men Type: BLOOD SPECIMEN Ordering Facility: [facility] Address: [address] [place] [address] Performed By: #### 2 4321-2, , 2776-10 #### [facility] CLIA [id number] [address] [place] [address] [place] Chloride [Moles/Vol] 106 mmol/L High 97-105 [facility] Comment on above: Order Comment: Speci men Type: BLOOD SPECIMEN Ordering Facility: [facility] Address: [address] [place] [address] Performed By: #### 2 4321-2, , 2776-10 #### [facility] CLIA [id number] [address] [place] [address] [place] CO2 [Moles/Vol] 26 mmol/L Normal 22-30 [facility] Comment on above: Order Comment: Speci men Type: BLOOD SPECIMEN Ordering Facility: [facility] Address: [address] [place] [address] Performed By: #### 2 4321-2, , 2776-10 #### [facility] CLIA [id number] [place] [address] [place] Creatinine [Mass/Vol] 0.55 mg/dL Low 0.73-1.22 [facility] Comment on above: Order Comment: Jhon chan Type: BLOOD SPECIMEN Ordering Facility: [facility] Address: [address] [phone] Performed By: #### 2 4321-2, , 2776-10 #### [facility] CLIA [id number] [address] [place] [address] [place] ESTIMATED GLOMERULAR FILTRATION RATE 103 mL/min/1.73m??? Normal >=60 [facility] Comment on above: Order Comment: John chan Type: BLOOD SPECIMEN Ordering Facility: [facility] Address: [address] [phone] Result Comment: Trena mated Glomerular Filtration Rate [...] By: #### 2 4321-2, , 2776-10 #### [facility] CLIA [id number] [address] [place] [address] [place] Glucose [Mass/Vol] 101 mg/dL High 74-99 [facility] Comment on above: Order Comment: John rocio Type: BLOOD SPECIMEN Ordering Facility: [facility] Address: [address] [phone] Result Comment: The [place] Diabetes [employer] (ADA) provides guidance for cutoff [...] Standards of Medical Care in Diabetes 2016, [place] [employer]. Diabetes Care. 2016.39(Suppl 1). Performed By: #### 2 4321-2, , 2776-10 #### [facility] CLIA [id number] [address] [place] [address] [place] Potassium [Moles/Vol] 3.6 mmol/L Low 3.7-5.1 [facility] Comment on above: Order Comment: Speci men Type: BLOOD SPECIMEN Ordering Facility: [facility] Address: [address] [place] [address] Performed By: #### 2 4321-2, , 2776-10 #### [facility] CLIA [id number] [address] [place] [address] [place] Sodium [Moles/Vol] 142 mmol/L Normal 136-144 [facility] Comment on above: Order Comment: Speci men Type: BLOOD SPECIMEN Ordering Facility: [facility] Address: [address] [place] [address] Performed By: #### 2 4321-2, , 2776-10 #### [facility] CLIA [id number] [address] [place] [address] [place] Urea nitrogen [Mass/Vol] 8 mg/dL Low 9-24 [facility] Comment on above: Order Comment: Speci men Type: BLOOD SPECIMEN Ordering Facility: [facility] Address: [address] [place] [address] Performed By: #### 2 4321-2, , 2776-10 #### [facility] CLIA [id number] [address] [place] [address] [place] CASE MGT INIT ASSESon 2022 CASE MGT INIT ASSES HNO ID: [id number] Author: YURY Luz Service: ? 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 Therapy recommending SNF at this time. SNF list provided. If patient progresses and can go home, [facility] can accept. Patient's [...] 27, 2023 TIME: 3:26 PM CONTACT #: [phone] [facility] CBC W Auto Differential pane l (Bld)on 02-27-2023 Basophils (Bld) [#/Vol] 0.03 10*3/uL Normal <0.11 [facility] Comment on above: Order Comment: Speci men Type: BLOOD SPECIMENOrdering Facility: [facility] Address: [address] [place] [address] Performed By: #### 5 7021-8 ####[facility] [id number] [address] [place] Basophils/100 WBC (Bld) 0.5 % Normal [facility] Comment on above: Order Comment: Speci men Type: BLOOD SPECIMENOrdering Facility: [facility] Address: [address] [place] [address] Performed By: #### 5 7021-8 ####[facility] [id number] [address] Differential cell count method Nom (Bld) Auto Normal [facility] Comment on above: Order Comment: Speci men Type: BLOOD SPECIMENOrdering Facility: [facility] Address: [address] [place] [address] Performed By: #### 5 7021-8 ####[facility] [id number] [place] [address] [place] Eosinophils (Bld) [#/Vol] 0.27 10*3/uL Normal <0.46 [facility] Comment on above: Order Comment: Speci men Type: BLOOD SPECIMENOrdering Facility: [facility] Address: [address] [place] [address] Performed By: #### 5 7021-8 ####[facility] [id number] [address] STATES [facility] Eosinophils/100 WBC (Bld) 4.5 % Normal [facility] Comment on above: Order Comment: Speci men Type: BLOOD SPECIMENOrdering Facility: [facility] Address: [address] [place] [address] Performed By: #### 5 7021-8 ####[facility] [id number] [address] [place] Erythrocyte distribution width (RBC) [Ratio] 15.8 % High 11.5-15.0 [facility] Comment on above: Order Comment: Speci men Type: BLOOD SPECIMENOrdering Facility: [facility] Address: [address] [place] [address] Performed By: #### 5 7021-8 ####[facility] [id number] [address] [place] Hematocrit (Bld) [Volume fraction] 35.5 % Low 39.0-51.0 [facility] Comment on above: Order Comment: Speci men Type: BLOOD SPECIMENOrdering Facility: [facility] Address: [address] [place] [address] Performed By: #### 5 7021-8 ####[facility] [id number] [place] [address] [place] Hemoglobin (Bld) [Mass/Vol] 11.7 g/dL Low 13.0-17.0 [facility] Comment on above: Order Comment: Speci men Type: BLOOD SPECIMENOrdering Facility: [facility] Address: [address] [place] [address] Performed By: #### 5 7021-8 ####[facility] [id number] [address] [place] Immature granulocytes (Bld) [#/Vol] 0.03 10*3/uL Normal <0.10 [facility] Comment on above: Order Comment: Speci men Type: BLOOD SPECIMENOrdering Facility: [facility] Address: [address] [place] [address] Performed By: #### 5 7021-8 ####[facility] [id number] [address] [place] Immature granulocytes/100 WBC (Bld) 0.5 % Normal [facility] Comment on above: Order Comment: Speci men Type: BLOOD SPECIMENOrdering Facility: [facility] Address: [address] [place] [address] Performed By: #### 5 7021-8 ####[facility] [id number] [place] [address] [place] Lymphocytes (Bld) [#/Vol] 0.78 10*3/uL Low 1.00-4.00 [facility] Comment on above: Order Comment: Speci men Type: BLOOD SPECIMENOrdering Facility: [facility] Address: [address] [address] Performed By: #### 5 7021-8 ####[facility]CLIA [id number] [place] [address] [place] Lymphocytes/100 WBC (Bld) 12.9 % Normal [facility] Comment on above: Order Comment: Speci men Type: BLOOD SPECIMENOrdering Facility: [facility] Address: [address] [place] [address] Performed By: #### 5 7021-8 ####[facility]ORYCLIA [id number] [place] [address] [place] MCH (RBC) [Entitic mass] 30.2 pg Normal 26.0-34.0 [facility] Comment on above: Order Comment: Speci men Type: BLOOD SPECIMENOrdering Facility: [facility] Address: [address] [place] [address] Performed By: #### 5 7021-8 ####[facility] [id number] [place] [address] [place] MCHC (RBC) [Mass/Vol] 33.0 g/dL Normal 30.5-36.0 [facility] Comment on above: Order Comment: Speci men Type: BLOOD SPECIMENOrdering Facility: [facility] Address: [address] [place] [address] Performed By: #### 5 7021-8 ####[facility] [id number] [address] [place] MCV (RBC) [Entitic vol] 91.7 fL Normal 80.0-100.0 [facility] Comment on above: Order Comment: Speci men Type: BLOOD SPECIMENOrdering Facility: [facility] Address: [address] [place] [address] Performed By: #### 5 7021-8 ####[facility]ORYCLIA [id number] [place] [address] [place] Monocytes (Bld) [#/Vol] 0.51 10*3/uL Normal <0.87 [facility] Comment on above: Order Comment: Speci men Type: BLOOD SPECIMENOrdering Facility: [facility] Address: [address] [place] [address] Performed By: #### 5 7021-8 ####[facility]ORYCLIA [id number] [place] [address] [place] Monocytes/100 WBC (Bld) 8.4 % Normal [facility] Comment on above: Order Comment: Speci men Type: BLOOD SPECIMENOrdering Facility: [facility] Address: [address] [place] [address] Performed By: #### 5 7021-8 ####[facility] [id number] [place] [address] [place] Neutrophils (Bld) [#/Vol] 4.44 10*3/uL Normal 1.45-7.50 [facility] Comment on above: Order Comment: Speci men Type: BLOOD SPECIMENOrdering Facility: [facility] Address: [address] [place] [address] Performed By: #### 5 7021-8 ####[facility] [id number] [place] [address] [place] Neutrophils/100 WBC (Bld) 73.2 % Normal [facility] Comment on above: Order Comment: Speci men Type: BLOOD SPECIMENOrdering Facility: [facility] Address: [address] [place] [address] Performed By: #### 5 7021-8 ####[facility]ORYCLIA [id number] [place] [address] [place] Nucleated RBC (Bld) [#/Vol] 10*3/uL Normal <0.01 [facility] Comment on above: Order Comment: Speci men Type: BLOOD SPECIMENOrdering Facility: [facility] Address: [address] [address] Performed By: #### 5 7021-8 ####[facility] [id number] [address] [id number] [place] Nucleated RBC/100 WBC (Bld) [Ratio] 0.0 /100 WBC Normal [facility] Comment on above: Order Comment: Speci men Type: BLOOD SPECIMENOrdering Facility: [facility] Address: [address] [place] [address] Performed By: #### 5 7021-8 ####[facility] [id number] [address] [place] [id number] [place] Platelet mean volume (Bld) [Entitic vol] 10.7 fL Normal 9.0-12.7 [facility] Comment on above: Order Comment: Speci men Type: BLOOD SPECIMENOrdering Facility: [facility] Address: [address] [place] [address] Performed By: #### 5 7021-8 ####[facility] [id number] [place] [address] [place] Platelets (Bld) [#/Vol] 157 10*3/uL Normal 150-400 [facility] Comment on above: Order Comment: Speci men Type: BLOOD SPECIMENOrdering Facility: [facility] Address: [address] [place] [address] Performed By: #### 5 7021-8 ####[facility] [id number] [address] [place] [id number] [place] RBC (Bld) [#/Vol] 3.87 10*6/uL Low 4.20-6.00 [facility] Comment on above: Order Comment: Speci men Type: BLOOD SPECIMENOrdering Facility: [facility] Address: [address] [address] Performed By: #### 5 7021-8 ####[facility] [id number] [address] [id number] [place] WBC (Bld) [#/Vol] 6.06 10*3/uL Normal 3.70-11.00 [facility] Comment on above: Order Comment: Speci men Type: BLOOD SPECIMENOrdering Facility: [facility] Address: [place] [address] Performed By: #### 5 7021-8 ####[facility] [id number] [place] [address] [place] CONSULT PROGon 02-27-2023 CONSULT PROG HNO ID: [id number] Author: Ree Fernandez APRN.[employer] Service: Pain Management Author Type: Nurse Practitioner [...] Lymph 1.00 - 4.00 k/uL 0.78 (L) [place]% % 8.4 Abs [place] <0.87 k/uL 0.51 Eosin% % 4.5 Abs [...] - 30 (more content not included)... Normal [facility] HIGH SENSITIVITY TROPONIN To n 02-27-2023 HIGH SENSITIVITY PHYLLIS 14 ng/L High <12 [facility] Comment on above: Order Comment: Speci men Type: BLOOD SPECIMEN [facility] Address: [address] [phone] Result Comment: When assessing risk for acute [...] MACE. Performed By: #### 2 4321-2, #### [facility] CLIA [id number] [address] [id number] [place] Magnesium SerPl-mCncon 02-27 Magnesium [Mass/Vol] 2.1 mg/dL Normal 1.7-2.3 [facility] Comment on above: Order Comment: Speci men Type: BLOOD SPECIMEN [facility] Address: [address] [phone] Performed By: #### 2 4321-2, , 2777 #### [facility] CLIA [id number] [place] [address] [place] NURSING PROGon 02-27-2023 NURSING PROG HNO ID: [id number] Author: Latasha Evans RN Service: Nursing Author [...] chair with 2 assist and walker. 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 bp 155/49, hr 71, spo2 94% nc 2.5L. would you like a troponin order. Thanks Vivian [phone], new orders received. 0139 paged surgery Hi, [email or web address] Tatiana, high sensitivity troponin was 14. Normal [facility] Phosphate SerPl-mCncon 02-27 Phosphate [Mass/Vol] 2.1 mg/dL Low 2.7-4.8 [facility] Comment on above: Order Comment: Speci men Type: BLOOD SPECIMEN [facility] Address: [address] [place] [address] Performed By: #### 2 4321-2, 18391-1, 2777-1 #### [facility] CLIA [id number] [address] [place] [address] THERAPY NTon 02-27-2023 THERAPY NT HNO ID: [id number] Author: Judith Hernandez OTR/L Service: Occupational Therapy Author Type: Occupational Therapist Type: Therapy (PT/OT/Speech/Resp) Filed: 02/27/2023 5:06 PM Note Text: Occupational Therapy Treatment SERVICE DATE: 02/27/2023 SERVICE TIME: 1546 to 1640 ROOM: [place] [address] Scheduled Surgery For Left Inguinal Hernia, S/P Attempted Xiip-Wao-Lmhcy Repair Of Left Femoral Hernia, Excision Of [...] Shoe Horn, Long Handled Sponge, Wheeled Walker, Merchant Seaman, Sock Aid, Shower Chair OT 6 Clicks Score: 17 Precautions/Activity Restrictions: Abdominal, Bed/Chair Alarm, Fall Risk, Lines/Tubes/Drains, Diet Restrictions, Other: See Comments Current Hospital Course: Scheduled Surgery For Left Inguinal Hernia, S/P Attempted Wpkj-Kss-Bqqgv Repair Of Left Femoral Hernia, Excision Of Previously Implanted Mesh, Exploratory Laparotomy, Bilateral TAR, Implantation Of 30 x 30 cm Prolene Mesh 02/23/23 Reason for Hospital Admission: Scheduled Surgery For Left Inguinal Hernia, S/P Attempted Capi-Loo-Tdryy Repair Of Left Femoral Hernia, Excision Of [...] Comment Comments: In one level home in [place], [place] Assistance Available: PRN Entry To Home: [...] situation 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 [facility] THERAPY NT HNO ID: [id number] Author: Ree Gardner, PT Service: Physical Therapy Author Type: Physical Therapist Type: Therapy (PT/OT/Speech/Resp) Filed: 02/27/2023 12:36 PM Note Text: Physical Therapy Treatment SERVICE DATE: 02/27/2023 SERVICE TIME: 1100 to 1138 ROOM: [place] [address] Recommended Discharge Disposition: Subacute/SNF Recommended Discharge Disposition [...] Surgery For Left Inguinal Hernia, S/P Attempted Zrhj-Sbg-Mqleb Repair Of Left Femoral Hernia, Excision Of Previously Implanted Mesh, Exploratory Laparotomy, Bilateral TAR, Implantation Of 30 x 30 cm Prolene Mesh 02/23/23 Reason for Hospital Admission: Scheduled Surgery For Left Inguinal Hernia, S/P Attempted Jzie-Ltu-Eveme Repair Of Left Femoral Hernia, Excision Of [...] Comment Comments: In one level home in [place], [place] Assistance Available: PRN Entry To Home: [...] Diagnosis: Reduced mobility-other Interventions Provided: Therapeutic Exercise (66539), Therapeutic Activity (12108), Gait Training (85139) Therapeutic Exercise (19811) Treatment Minutes: 15 $ Therapeutic Exercise (42578) Billed Units: 1 unit Therapeutic Activity (18297) Treatment Minutes: 15 $ Therapeutic Activity (04282) Billed Units: 1 unit Gait Training (57776) Treatment Minutes: 8 $ Gait Training (13059) Billed Units: 1 unit (more content not included)... Normal [facility] Basic metabolic 2000 panelon 02-26-2023 Anion gap [Moles/Vol] 9 mmol/L Normal 9-18 [facility] Comment on above: Order Comment: Speci men Type: BLOOD SPECIMENOrdering Facility: [facility] Address: [address] [place] [address] Performed By: #### 2 4321-2, , 2776-10 ####[facility] [id number] [place] [address] [place] Calcium [Mass/Vol] 8.5 mg/dL Normal 8.5-10.2 [facility] Comment on above: Order Comment: Speci men Type: BLOOD SPECIMENOrdering Facility: [facility] Address: [address] [place] [address] Performed By: #### 2 4321-2, , 2776-10 ####[facility]ORYCLIA [id number] [place] [id number] [place] Chloride [Moles/Vol] 104 mmol/L Normal 97-105 [facility] Comment on above: Order Comment: Speci men Type: BLOOD SPECIMENOrdering Facility: [facility] Address: [address] [place] [address] Performed By: #### 2 4321-2, , 2776-10 ####[facility]ORYCLIA [id number] [place] [address] [place] CO2 [Moles/Vol] 25 mmol/L Normal 22-30 [facility] Comment on above: Order Comment: Speci men Type: BLOOD SPECIMENOrdering Facility: [facility] Address: [address] [phone] Performed By: #### 2 4321-2, , 2776-10 ####[facility]ORYCL[facility] [id number] [place] [address] [place] Creatinine [Mass/Vol] 0.55 mg/dL Low 0.73-1.22 [facility] Comment on above: Order Comment: Speci men Type: BLOOD SPECIMENOrdering Facility: [facility] Address: [address] [place] [address] Performed By: #### 2 4321-2, , 2776-10 ####[facility]ORYCLIA [id number] [place] [address] [place] ESTIMATED GLOMERULAR FILTRATION RATE 103 mL/min/1.73m??? Normal >=60 [facility] Comment on above: Order Comment: Josyesperanza men Type: BLOOD SPECIMENOrdering Facility: [facility] Address: [address] [place] [address] Result Comment: Trena mated Glomerular Filtration Rate [...] Performed By: #### 2 4321-2, , 2776-10 ####[facility]ORYCL[facility] [id number] [place] [id number] [place] Glucose [Mass/Vol] 105 mg/dL High 74-99 [facility] Comment on above: Order Comment: John chan Type: BLOOD SPECIMENOrdering Facility: [facility] Address: [address] [place], [place] [address] Result Comment: The [place] Diabetes Association (ADA) provides guidance for cutoff [...] Standards of Medical Care in Diabetes 2016, [place] [employer]. Diabetes Care. 2016.39(Suppl 1). Performed By: #### 2 4321-2, , 2776-10 ####[facility]ORYCLIA [id number] [place] [address] [place] Potassium [Moles/Vol] 3.2 mmol/L Low 3.7-5.1 [facility] Comment on above: Order Comment: John chan Type: BLOOD SPECIMENOrdering Facility: [facility] Address: [address] [address] Performed By: #### 2 432-2, , 2776-10 ####[facility]ORYCLIA [id number] [place] [address] [place] Sodium [Moles/Vol] 138 mmol/L Normal 136-144 [facility] Comment on above: Order Comment: John chan Type: BLOOD SPECIMENOrdering Facility: [facility] Address: [address] [address] Performed By: #### 2 1-2, , 2776-10 ####[facility]ORYCLIA [id number] [place] [id number] [place] Urea nitrogen [Mass/Vol] 9 mg/dL Normal 9-24 [facility] Comment on above: Order Comment: John chan Type: BLOOD SPECIMENOrdering Facility: [facility] Address: [address] [address] Performed By: #### 2 4321-2, , 2776-10 ####[facility]ORYCLIA [id number] [place] [address] [place] CBC W Auto Differential pane l (Bld)on 02-26-2023 Basophils (Bld) [#/Vol] 0.03 10*3/uL Normal <0.11 [facility] Comment on above: Order Comment: Speci men Type: BLOOD SPECIMEN [facility] Address: [address] [place] [address] Performed By: #### 5 7021-8 #### [facility] CLIA [id number] [address] [place] [address] [place] Basophils/100 WBC (Bld) 0.4 % Normal [facility] Comment on above: Order Comment: Speci men Type: BLOOD SPECIMEN [facility] Address: [address] [place] [address] Performed By: #### 5 7021-8 #### [facility] CLIA [id number] [address] [place] [address] [place] Differential cell count method Nom (Bld) Auto Normal [facility] Comment on above: Order Comment: Speci men Type: BLOOD SPECIMEN [facility] Address: [address] [place] [address] Performed By: #### 5 7021-8 #### [facility] CLIA [id number] [address] [place] [address] [place] Eosinophils (Bld) [#/Vol] 0.21 10*3/uL Normal <0.46 [facility] Comment on above: Order Comment: Speci men Type: BLOOD SPECIMEN [facility] Address: [address] [place] [address] Performed By: #### 5 7021-8 #### [facility] CLIA [id number] [address] [place] [address] [place] Eosinophils/100 WBC (Bld) 2.6 % Normal [facility] Comment on above: Order Comment: Speci men Type: BLOOD SPECIMEN [facility] Address: [address] [place] [address] Performed By: #### 5 7021-8 #### [facility] CLIA [id number] [address] [place] [address] [place] Erythrocyte distribution width (RBC) [Ratio] 15.5 % High 11.5-15.0 [facility] Comment on above: Order Comment: Speci men Type: BLOOD SPECIMEN [facility] Address: [address] [place] [address] Performed By: #### 5 7021-8 #### [facility] CLIA [id number] [address] [place] [address] [place] Hematocrit (Bld) [Volume fraction] 34.6 % Low 39.0-51.0 [facility] Comment on above: Order Comment: Speci men Type: BLOOD SPECIMEN [facility] Address: [address] [place] [address] Performed By: #### 5 7021-8 #### [facility] CLIA [id number] [address] [place] [address] [place] Hemoglobin (Bld) [Mass/Vol] 11.8 g/dL Low 13.0-17.0 [facility] Comment on above: Order Comment: Speci men Type: BLOOD SPECIMEN [facility] Address: [address] [place] [address] Performed By: #### 5 7021-8 #### [facility] CLIA [id number] [address] [place] [address] [place] Immature granulocytes (Bld) [#/Vol] 0.03 10*3/uL Normal <0.10 [facility] Comment on above: Order Comment: Speci men Type: BLOOD SPECIMEN [facility] Address: [address] [place] [address] Performed By: #### 5 7021-8 #### [facility] CLIA [id number] [address] [place] [address] [place] Immature granulocytes/100 WBC (Bld) 0.4 % Normal [facility] Comment on above: Order Comment: Speci men Type: BLOOD SPECIMEN [facility] Address: [address] [place] [address] Performed By: #### 5 7021-8 #### [facility] CLIA [id number] [address] [place] [address] [place] Lymphocytes (Bld) [#/Vol] 0.71 10*3/uL Low 1.00-4.00 [facility] Comment on above: Order Comment: Speci men Type: BLOOD SPECIMEN [facility] Address: [address] [place] [address] Performed By: #### 5 7021-8 #### [facility] CLIA [id number] [address] [place] [address] [place] Lymphocytes/100 WBC (Bld) 8.9 % Normal [facility] Comment on above: Order Comment: Speci men Type: BLOOD SPECIMEN [facility] Address: [address] [place] [address] Performed By: #### 5 7021-8 #### [facility] CLIA [id number] [address] [place] [address] [place] MCH (RBC) [Entitic mass] 30.6 pg Normal 26.0-34.0 [facility] Comment on above: Order Comment: Speci men Type: BLOOD SPECIMEN [facility] Address: [address] [place] [address] Performed By: #### 5 7021-8 #### [facility] CLIA [id number] [address] [place] [address] [place] MCHC (RBC) [Mass/Vol] 34.1 g/dL Normal 30.5-36.0 [facility] Comment on above: Order Comment: Speci men Type: BLOOD SPECIMEN [facility] Address: [address] [place] [address] Performed By: #### 5 7021-8 #### [facility] CLIA [id number] [address] [place] [address] [place] MCV (RBC) [Entitic vol] 89.6 fL Normal 80.0-100.0 [facility] Comment on above: Order Comment: Speci men Type: BLOOD SPECIMEN [facility] Address: [address] [address] Performed By: #### 5 7021-8 #### [facility] CLIA [id number] [address] [place] [address] [place] Monocytes (Bld) [#/Vol] 0.62 10*3/uL Normal <0.87 [facility] Comment on above: Order Comment: Speci men Type: BLOOD SPECIMEN [facility] Address: [address] [place] [address] Performed By: #### 5 7021-8 #### [facility] CLIA [id number] [address] [place] [address] [place] Monocytes/100 WBC (Bld) 7.8 % Normal [facility] Comment on above: Order Comment: Speci men Type: BLOOD SPECIMEN [facility] Address: [address] [place] [address] Performed By: #### 5 7021-8 #### [facility] CLIA [id number] [address] [place] [address] [place] Neutrophils (Bld) [#/Vol] 6.37 10*3/uL Normal 1.45-7.50 [facility] Comment on above: Order Comment: Speci men Type: BLOOD SPECIMEN [facility] Address: [address] [place] [address] Performed By: #### 5 7021-8 #### [facility] CLIA [id number] [address] [place] [address] [place] Neutrophils/100 WBC (Bld) 79.9 % Normal [facility] Comment on above: Order Comment: Speci men Type: BLOOD SPECIMEN [facility] Address: [address] [place] [address] Performed By: #### 5 7021-8 #### [facility] CLIA [id number] [address] [place] [address] [place] Nucleated RBC (Bld) [#/Vol] 10*3/uL Normal <0.01 [facility] Comment on above: Order Comment: Speci men Type: BLOOD SPECIMEN [facility] Address: [address] [address] Performed By: #### 5 7021-8 #### [facility] CLIA [id number] [address] [place] [address] [place] Nucleated RBC/100 WBC (Bld) [Ratio] 0.0 /100 WBC Normal [facility] Comment on above: Order Comment: Speci men Type: BLOOD SPECIMEN [facility] Address: [address] [address] Performed By: #### 5 7021-8 #### [facility] CLIA [id number] [address] [place] [address] [place] Platelet mean volume (Bld) [Entitic vol] 11.0 fL Normal 9.0-12.7 [facility] Comment on above: Order Comment: Speci men Type: BLOOD SPECIMEN [facility] Address: [address] [address] Performed By: #### 5 7021-8 #### [facility] CLIA [id number] [address] [place] [address] [place] Platelets (Bld) [#/Vol] 131 10*3/uL Low 150-400 [facility] Comment on above: Order Comment: Speci men Type: BLOOD SPECIMEN [facility] Address: [address] [address] Performed By: #### 5 7021-8 #### [facility] CLIA [id number] [address] [place] [address] [place] RBC (Bld) [#/Vol] 3.86 10*6/uL Low 4.20-6.00 [facility] Comment on above: Order Comment: Speci men Type: BLOOD SPECIMEN [facility] Address: [address] [place] [address] Performed By: #### 5 7021-8 #### [facility] CLIA [id number] [address] [place] [address] [place] WBC (Bld) [#/Vol] 7.97 10*3/uL Normal 3.70-11.00 [facility] Comment on above: Order Comment: Speci men Type: BLOOD SPECIMEN [facility] Address: [place] [address] Performed By: #### 5 7021-8 #### [facility] CLIA [id number] [address] CONSULT PROGon 02-26-2023 CONSULT PROG HNO ID: [id number] Author: Lakeisha Mota APRN.[employer] Service: Pain Management Author Type: Nurse Practitioner [...] Lymph 1.00 - 4.00 k/uL 0.71 (L) [place]% % 7.8 Abs [place] <0.87 k/uL 0.62 Eosin% % 2.6 Abs Eosin <0.46 k/uL 0.21 Baso% % 0.4 Abs Baso <0.11 k/uL 0.03 Immature Gran % % 0.4 IMMATURE GRANS (ABS) <0.10 k/uL 0.03 NRBC /100 WBC 0.0 Absolute nRBC <0.01 k/uL <0.01 (more content not included)... Normal [facility] Magnesium SerPl-mCncon 05-15 -2023 Magnesium [Mass/Vol] 1.8 mg/dL Normal 1.7-2.3 [facility] Comment on above: Order Comment: John chan Type: BLOOD SPECIMENOrdering Facility: [facility] Address: [address] [place], [place] [address] Performed By: #### 2 4321-2, , 2776-10 ####[facility]CLIA [id number] [place] [id number] [facility] NURSING PROGon 02-26-2023 NURSING PROG HNO ID: [id number] Author: Christie Mayberry, RN Service: Nursing Author Type: Registered Nurse [...] sent to surgery for further orders. Normal [facility] Phosphate SerPl-mCncon 02-26 Phosphate [Mass/Vol] 1.4 mg/dL Low 2.7-4.8 [facility] Comment on above: Order Comment: John chan Type: BLOOD SPECIMENOrdering Facility: [facility] Address: [address] [place] [phone] Performed By: #### 2 4321-2, , 2776-10 ####[facility]ORATORYCLIA [id number] [place] [id number] [facility] THERAPY NTon 02-26-2023 THERAPY NT HNO ID: [id number] Author: Ree Gardner, PT Service: Physical Therapy Author Type: Physical Therapist Type: Therapy (PT/OT/Speech/Resp) Filed: 02/26/2023 11:44 AM Note Text: Physical Therapy Treatment SERVICE DATE: 02/26/2023 SERVICE TIME: 1027 to 1051 ROOM: [place] [address] Recommended Discharge Disposition: Subacute/SNF Recommended Discharge Disposition [...] Surgery For Left Inguinal Hernia, S/P Attempted Qzss-Oel-Odxjo Repair Of Left Femoral Hernia, Excision Of Previously Implanted Mesh, Exploratory Laparotomy, Bilateral TAR, Implantation Of 30 x 30 cm Prolene Mesh 02/23/23 Reason for Hospital Admission: Scheduled Surgery For Left Inguinal Hernia, S/P Attempted Ipsq-Skz-Gamsn Repair Of Left Femoral Hernia, Excision Of [...] Comment Comments: In one level home in [place], [place] Assistance Available: PRN Entry To Home: [...] Transfer Blank barrera indicate activity not attempted -HLM: 5: Standing (1 or more minutes) Learning/Educational [...] Muscle Weakness (generalized) Interventions Provided: Therapeutic Activity (27653) Therapeutic Activity (70171) Treatment Minutes: 24 $ Therapeutic Activity (77840) Billed Units: 2 units Training AND Education Provided in: Anatomy and Impact on Deficits, Benefits of In-Hospital Mobility, Disease Spe (more content not included)... Normal [facility] Basic metabolic 2000 panelon 02-25-2023 Anion gap [Moles/Vol] 9 mmol/L Normal 9-18 [facility] Comment on above: Order Comment: Speci men Type: BLOOD SPECIMENOrdering Facility: [facility] Address: [address] [place] [phone] Performed By: #### 1 9123-9, 2777-1, 61241-2 ####[facility] [id number] [place] [address] [place] Calcium [Mass/Vol] 8.6 mg/dL Normal 8.5-10.2 [facility] Comment on above: Order Comment: Speci men Type: BLOOD SPECIMENOrdering Facility: [facility] Address: [address] [address] Performed By: #### 1 9123-9, 27704-14, 95377-2 ####[facility]ORYCLIA [id number] [place] [id number] [place] Chloride [Moles/Vol] 106 mmol/L High 97-105 [facility] Comment on above: Order Comment: Speci men Type: BLOOD SPECIMENOrdering Facility: [facility] Address: [address] [address] Performed By: #### 1 9123-9, 2776-10, ####[facility]ORYCLIA [id number] [place] [address] [place] CO2 [Moles/Vol] 24 mmol/L Normal 22-30 [facility] Comment on above: Order Comment: Speci men Type: BLOOD SPECIMENOrdering Facility: [facility] Address: [address] [address] Performed By: #### 1 9123-9, 2776-10, ####[facility]ORYCLIA [id number] [place] [address] [place] Creatinine [Mass/Vol] 0.57 mg/dL Low 0.73-1.22 [facility] Comment on above: Order Comment: Speci men Type: BLOOD SPECIMENOrdering Facility: [facility] Address: [address] [address] Performed By: #### 1 9123-9, 27704-14, 58778-0 ####[facility]ORYCLIA [id number] [place] [address] [place] ESTIMATED GLOMERULAR FILTRATION RATE 102 mL/min/1.73m??? Normal >=60 [facility] Comment on above: Order Comment: Speci men Type: BLOOD SPECIMENOrdering Facility: [facility] Address: [address] [place] [address] Result Comment: Trena mated Glomerular Filtration Rate [...] GFR. Performed By: #### 1 9123-9, 2777-, 12404-0 ####[facility] LABORATORYCLIA [id number] [place] [id number] [place] Glucose [Mass/Vol] 163 mg/dL High 74-99 [facility] Comment on above: Order Comment: John chan Type: BLOOD SPECIMENOrdering Facility: [facility] Address: [address] [phone] Result Comment: The [place] [employer] (ADA) provides guidance for cutoff [...] Standards of Medical Care in Diabetes 2016, [place] [employer]. Diabetes Care. 2016.39(Suppl 1). Performed By: #### 1 9123-9, 2777-, 51913-3 ####[facility] LABORATORYIA [id number] [place] [id number] [place] Potassium [Moles/Vol] 3.4 mmol/L Low 3.7-5.1 [facility] Comment on above: Order Comment: John chan Type: BLOOD SPECIMENOrdering Facility: [facility] Address: [address] [phone] Performed By: #### 1 9123-9, 2777-1, 02605-6 ####[facility] LABORATORYCLIA [id number] [address] [place] Sodium [Moles/Vol] 139 mmol/L Normal 136-144 [facility] Comment on above: Order Comment: Speci men Type: BLOOD SPECIMENOrdering Facility: [facility] Address: [address] [place] [address] Performed By: #### 1 9123-9, 2777-1, 23643-0 ####[facility]CLIA [id number] [place] [address] [place] Urea nitrogen [Mass/Vol] 9 mg/dL Normal 9-24 [facility] Comment on above: Order Comment: Speci men Type: BLOOD SPECIMENOrdering Facility: [facility] Address: [address] [place] [address] Performed By: #### 1 9123-9, 2777-, 32670-3 ####[facility]ORYCLIA [id number] [address] STATES OF [facility] CBC W Auto Differential pane l (Bld)on 02-25-2023 Basophils (Bld) [#/Vol] 10*3/uL Normal <0.11 [facility] Comment on above: Order Comment: Speci men Type: BLOOD SPECIMEN [facility] Address: [address] [place] [address] Performed By: #### 5 7021-8 #### [facility] CLIA [id number] [address] [place] [address] [place] Basophils/100 WBC (Bld) 0.2 % Normal [facility] Comment on above: Order Comment: Speci men Type: BLOOD SPECIMEN [facility] Address: [address] [address] Performed By: #### 5 7021-8 #### [facility] CLIA [id number] [address] [place] [address] [place] Differential cell count method Nom (Bld) Auto Normal [facility] Comment on above: Order Comment: Speci men Type: BLOOD SPECIMEN [facility] Address: [address] [place] [address] Performed By: #### 5 7021-8 #### [facility] CLIA [id number] [address] [place] [address] [place] Eosinophils (Bld) [#/Vol] 0.16 10*3/uL Normal <0.46 [facility] Comment on above: Order Comment: Speci men Type: BLOOD SPECIMEN [facility] Address: [address] [address] Performed By: #### 5 7021-8 #### [facility] CLIA [id number] [address] [place] [address] [place] Eosinophils/100 WBC (Bld) 1.9 % Normal [facility] Comment on above: Order Comment: Speci men Type: BLOOD SPECIMEN [facility] Address: [address] [place] [address] Performed By: #### 5 7021-8 #### [facility] CLIA [id number] [address] [place] [address] [place] Erythrocyte distribution width (RBC) [Ratio] 16.2 % High 11.5-15.0 [facility] Comment on above: Order Comment: Speci men Type: BLOOD SPECIMEN [facility] Address: [address] [place] [address] Performed By: #### 5 7021-8 #### [facility] CLIA [id number] [address] [place] [address] [place] Hematocrit (Bld) [Volume fraction] 38.3 % Low 39.0-51.0 [facility] Comment on above: Order Comment: Speci men Type: BLOOD SPECIMEN [facility] Address: [address] [place] [address] Performed By: #### 5 7021-8 #### [facility] CLIA [id number] [address] [place] [address] [place] Hemoglobin (Bld) [Mass/Vol] 12.2 g/dL Low 13.0-17.0 [facility] Comment on above: Order Comment: Speci men Type: BLOOD SPECIMEN [facility] Address: [address] [address] Performed By: #### 5 7021-8 #### [facility] CLIA [id number] [address] [place] [address] [place] Immature granulocytes (Bld) [#/Vol] 0.05 10*3/uL Normal <0.10 [facility] Comment on above: Order Comment: Speci men Type: BLOOD SPECIMEN [facility] Address: [address] [place] [address] Performed By: #### 5 7021-8 #### [facility] CLIA [id number] [address] [place] [address] [place] Immature granulocytes/100 WBC (Bld) 0.6 % Normal [facility] Comment on above: Order Comment: Speci men Type: BLOOD SPECIMEN Ordering Facility: [facility] Address: [address] [place] [address] Performed By: #### 5 7021-8 #### [facility] CLIA [id number] [address] [place] [address] [place] Lymphocytes (Bld) [#/Vol] 0.83 10*3/uL Low 1.00-4.00 [facility] Comment on above: Order Comment: Speci men Type: BLOOD SPECIMEN Ordering Facility: [facility] Address: [address] [place] [address] Performed By: #### 5 7021-8 #### [facility] CLIA [id number] [address] [place] [address] [place] Lymphocytes/100 WBC (Bld) 9.8 % Normal [facility] Comment on above: Order Comment: Speci men Type: BLOOD SPECIMEN Ordering Facility: [facility] Address: [address] [place] [address] Performed By: #### 5 7021-8 #### [facility] CLIA [id number] [address] [place] [address] [place] MCH (RBC) [Entitic mass] 30.2 pg Normal 26.0-34.0 [facility] Comment on above: Order Comment: Speci men Type: BLOOD SPECIMEN Ordering Facility: [facility] Address: [address] [address] Performed By: #### 5 7021-8 #### [facility] CLIA [id number] [address] [place] [address] [place] MCHC (RBC) [Mass/Vol] 31.9 g/dL Normal 30.5-36.0 [facility] Comment on above: Order Comment: Speci men Type: BLOOD SPECIMEN Ordering Facility: [facility] Address: [address] [address] Performed By: #### 5 7021-8 #### [facility] CLIA [id number] [address] [place] [address] [place] MCV (RBC) [Entitic vol] 94.8 fL Normal 80.0-100.0 [facility] Comment on above: Order Comment: Speci men Type: BLOOD SPECIMEN Ordering Facility: [facility] Address: [address] [address] Performed By: #### 5 7021-8 #### [facility] CLIA [id number] [address] [place] [address] [place] Monocytes (Bld) [#/Vol] 0.68 10*3/uL Normal <0.87 [facility] Comment on above: Order Comment: Speci men Type: BLOOD SPECIMEN Ordering Facility: [facility] Address: [address] [address] Performed By: #### 5 7021-8 #### [facility] CLIA [id number] [address] [place] [address] [place] Monocytes/100 WBC (Bld) 8.0 % Normal [facility] Comment on above: Order Comment: Speci men Type: BLOOD SPECIMEN Ordering Facility: [facility] Address: [address] [place] [address] Performed By: #### 5 7021-8 #### [facility] CLIA [id number] [address] [place] [address] [place] Neutrophils (Bld) [#/Vol] 6.77 10*3/uL Normal 1.45-7.50 [facility] Comment on above: Order Comment: Speci men Type: BLOOD SPECIMEN Ordering Facility: [facility] Address: [address] [address] Performed By: #### 5 7021-8 #### [facility] CLIA [id number] [address] [place] [address] [place] Neutrophils/100 WBC (Bld) 79.5 % Normal [facility] Comment on above: Order Comment: Speci men Type: BLOOD SPECIMEN Ordering Facility: [facility] Address: [address] [address] Performed By: #### 5 7021-8 #### [facility] CLIA [id number] [address] [place] [address] [place] Nucleated RBC (Bld) [#/Vol] 10*3/uL Normal <0.01 [facility] Comment on above: Order Comment: Speci men Type: BLOOD SPECIMEN Ordering Facility: [facility] Address: [address] [address] Performed By: #### 5 7021-8 #### [facility] CLIA [id number] [address] [place] [address] [place] Nucleated RBC/100 WBC (Bld) [Ratio] 0.0 /100 WBC Normal [facility] Comment on above: Order Comment: Speci men Type: BLOOD SPECIMEN Ordering Facility: [facility] Address: [address] [address] Performed By: #### 5 7021-8 #### [facility] CLIA [id number] [address] [place] [address] [place] Platelet mean volume (Bld) [Entitic vol] 10.8 fL Normal 9.0-12.7 [facility] Comment on above: Order Comment: Speci men Type: BLOOD SPECIMEN Ordering Facility: [facility] Address: [address] [address] Performed By: #### 5 7021-8 #### [facility] CLIA [id number] [address] [place] [address] [place] Platelets (Bld) [#/Vol] 129 10*3/uL Low 150-400 [facility] Comment on above: Order Comment: Speci men Type: BLOOD SPECIMEN Ordering Facility: [facility] Address: [address] [place] [address] Result Comment: No c lot detected.Platelet count confirmed by manual review of peripheral blood smear. Performed By: #### 5 7021-8 #### [facility] CLIA [id number] [address] [place] [address] [place] RBC (Bld) [#/Vol] 4.04 10*6/uL Low 4.20-6.00 [facility] Comment on above: Order Comment: Speci men Type: BLOOD SPECIMEN Ordering Facility: [facility] Address: [address] [place] [address] Performed By: #### 5 7021-8 #### [facility] CLIA [id number] [address] [place] [address] OF [facility] WBC (Bld) [#/Vol] 8.51 10*3/uL Normal 3.70-11.00 [facility] Comment on above: Order Comment: Speci men Type: BLOOD SPECIMEN Ordering Facility: [facility] Address: [address] [place] [address] Performed By: #### 5 7021-8 #### [facility] CLIA [id number] [address] [place] [address] CONSULT PROGon 02-25-2023 CONSULT PROG HNO ID: [id number] Author: Norberto Kennedy PA-C Service: Pain Management Author Type: Physician Tube Bending Machine Operator Type: Consult Progress Note Filed: 02/25/2023 8:26 AM Note Text: PERIPHERAL NERVE CATHETER PROGRESS NOTE PATIENT NAME: Yoni Ramirez SERVICE DATE: 02/25/2023 SERVICE TIME: 8:24 AM ASSESSMENT Yoni Ramirez is a 77 year old male who is POD# 2, S/P .Attempted oxrs-ywb-doqmt repair of L femoral hernia Excision of previously implanted mesh Exploratory laparotomy Bilateral TAR Implantation of 30 x 30 cm prolene mesh Patient reports good pain control 0/10 with rest. BTAPS running ropiv 0.2% @ 6 ml Q 30 min. PLAN Continue current pain regimen, will follow. SUBJECTIVE CHIEF COMPLAINT: POD# 1, S/P .Attempted zbbs-ste-tmcix repair of L femoral hernia Excision of [...] which included preparing to see the patient, ekdk-vn-ujeh patient care, completing clinical documentation, obtaining and/or reviewing separately obtained history, and performing a medically appropriate examination. SIGNATURE: Norberto Kennedy PA-C PATIENT NAME: Yoni Ramirez DATE: February 25, 2023 TIME: 8:24 AM PAGER/CONTACT #: APMS [phone] Normal [facility] Magnesium SerPl-mCncon 02-25 Magnesium [Mass/Vol] 1.9 mg/dL Normal 1.7-2.3 [facility] Comment on above: Order Comment: Speci men Type: BLOOD SPECIMENOrdering Facility: [facility] Address: [address] [place] [address] Performed By: #### 1 9123-9, 2777-1, 88013-1 ####[facility] [id number] [address] OF [facility] NURSING PROGon 02-25-2023 NURSING PROG HNO ID: [id number] Author: Ritchie Wright RN Service: ? Author Type: Registered Nurse Type: Nursing Progress Note Filed: 02/25/2023 7:24 PM Note Text: 0918: ambulated with assistance to chair C/o dizziness after rising BP:120/59 pulse 73 94% 3L. Pt. Drowsy, oriented to person, place, time delirious/confused with situation. Surgical team made aware. 1050: Pt disconnected Left tap block. Block stopped pain management made aware. Normal [facility] NURSING PROG HNO ID: [id number] Author: Christie Mayberry RN Service: Nursing Author Type: Registered Nurse Type: Nursing Progress Note Filed: 02/25/2023 4:44 AM Note Text: 0443: Pt's oxygen sating at 90% on 2L. Denies SOB. Placed on 3L NC until CPAP arrives. Pt's home unit unable to hook to O2. IS use encouraged. Normal [facility] Phosphate SerPl-mCncon 02-25 Phosphate [Mass/Vol] 1.4 mg/dL Low 2.7-4.8 [facility] Comment on above: Order Comment: Speci men Type: BLOOD SPECIMENOrdering Facility: [facility] Address: [address] [place] [address] Performed By: #### 1 9123-9, 2777-1, 69555-2 ####[facility] [id number] [address] [id number] [facility] BRIEF OP NOTon 02-24-2023 BRIEF OP NOT HNO ID: [id number] Author: Sergio Webster MD Service: Critical Care Author Type: Resident Type: Brief Op Note Filed: 02/23/2023 10:28 PM Note Text: BRIEF OPERATIVE / PROCEDURE NOTE LOG ID: [id number] SURGERY/PROCEDURE DATE: 02/23/2023 INCISION/PROCEDURE START TIME: 3:01 PM INCISION CLOSE/PROCEDURE END TIME: 10:28 PM SURGEON(S)/PROCEDURALIST(S ) AND COIN MACHINE SUPERVISOR(S): Surgeon(s) and Role: * Donato Bishop MD - Primary * Jacky Curiel MD - Resident - Assisting * Sergio Webster MD - Resident - Assisting * Carolina Lorenz MD - Resident - Assisting * Loyd Floyd MD - Fellow No Additional Staff SURGERY/PROCEDURE(S): Attempted gxbf-iya-ovxyb repair of L femoral hernia Excision of [...] February 23, 2023 TIME: 10:24 PM Normal [facility] Basic metabolic 2000 panelon 02-24-2023 Anion gap [Moles/Vol] 8 mmol/L Low 9-18 [facility] Comment on above: Order Comment: Speci men Type: BLOOD SPECIMEN Ordering Facility: [facility] Address: [address] [place] [address] Performed By: #### 2 432-2, #### [facility] CLIA [id number] [address] [place] [address] [place] Calcium [Mass/Vol] 8.6 mg/dL Normal 8.5-10.2 [facility] Comment on above: Order Comment: Speci men Type: BLOOD SPECIMEN Ordering Facility: [facility] Address: [address] [place] [address] Performed By: #### 2 4320-11, #### [facility] CLIA [id number] [address] [place] [address] [place] Chloride [Moles/Vol] 105 mmol/L Normal 97-105 [facility] Comment on above: Order Comment: Speci men Type: BLOOD SPECIMEN Ordering Facility: [facility] Address: [address] [place] [address] Performed By: #### 2 2, #### [facility] CLIA [id number] [address] [place] [address] [place] CO2 [Moles/Vol] 27 mmol/L Normal 22-30 [facility] Comment on above: Order Comment: Speci men Type: BLOOD SPECIMEN Ordering Facility: [facility] Address: [address] [place] [address] Performed By: #### 2 2, #### [facility] CLIA [id number] [place] [address] [place] Creatinine [Mass/Vol] 0.61 mg/dL Low 0.73-1.22 [facility] Comment on above: Order Comment: John rocio Type: BLOOD SPECIMEN Ordering Facility: [facility] Address: [address] [address] Performed By: #### 2 4321-2, #### [facility] CLIA [id number] [address] [place] [address] [place] ESTIMATED GLOMERULAR FILTRATION RATE 100 mL/min/1.73m??? Normal >=60 [facility] Comment on above: Order Comment: [facility] Type: BLOOD SPECIMEN Ordering Facility: [facility] Address: [address] [address] Result Comment: Trena mated Glomerular Filtration Rate [...] reflect actual GFR. Performed By: #### 2 432-2, #### [facility] CLIA [id number] [place] [address] [place] Glucose [Mass/Vol] 163 mg/dL High 74-99 [facility] Comment on above: Order Comment: John rocio Type: BLOOD SPECIMEN Ordering Facility: [facility] Address: [address] [place] [address] Result Comment: The [place] [employer] (ADA) provides guidance for cutoff [...] Standards of Medical Care in Diabetes 2016, [place] [employer]. Diabetes Care. 2016.39(Suppl 1). Performed By: #### 2 4321-2, #### [facility] CLIA [id number] [place] [address] [place] Potassium [Moles/Vol] 3.8 mmol/L Normal 3.7-5.1 [facility] Comment on above: Order Comment: Speci men Type: BLOOD SPECIMEN Ordering Facility: [facility] Address: [address] [place] [address] Performed By: #### 2 4321-2, #### [facility] CLIA [id number] [address] [place] [address] [place] Sodium [Moles/Vol] 140 mmol/L Normal 136-144 [facility] Comment on above: Order Comment: Speci men Type: BLOOD SPECIMEN Ordering Facility: [facility] Address: [address] [place] [address] Performed By: #### 2 43210-16, #### [facility] CLIA [id number] [address] [place] [address] [place] Urea nitrogen [Mass/Vol] 11 mg/dL Normal 9-24 [facility] Comment on above: Order Comment: Speci men Type: BLOOD SPECIMEN Ordering Facility: [facility] Address: [address] [place] [address] Performed By: #### 2 4320-11, #### [facility] CLIA [id number] [address] [place] [address] [place] CBC panel Auto (Bld)on 02-24 Erythrocyte distribution width (RBC) [Ratio] 16.0 % High 11.5-15.0 [facility] Comment on above: Order Comment: Speci men Type: BLOOD SPECIMEN Ordering Facility: [facility] Address: [address] [place] [address] Performed By: #### 5 8410-2 #### [facility] CLIA [id number] [address] [place] [address] [place] Hematocrit (Bld) [Volume fraction] 38.3 % Low 39.0-51.0 [facility] Comment on above: Order Comment: Speci men Type: BLOOD SPECIMEN Ordering Facility: [facility] Address: [address] [address] Performed By: #### 5 8410-2 #### [facility] CLIA [id number] [address] [place] [address] STATES OF [facility] Hemoglobin (Bld) [Mass/Vol] 12.8 g/dL Low 13.0-17.0 [facility] Comment on above: Order Comment: Speci men Type: BLOOD SPECIMEN Ordering Facility: [facility] Address: [address] [address] Performed By: #### 5 8410-2 #### [facility] CLIA [id number] [address] [place] [address] [place] MCH (RBC) [Entitic mass] 30.3 pg Normal 26.0-34.0 [facility] Comment on above: Order Comment: Speci men Type: BLOOD SPECIMEN Ordering Facility: [facility] Address: [address] [place] [address] Performed By: #### 5 8410-2 #### [facility] CLIA [id number] [address] [place] [address] MCHC (RBC) [Mass/Vol] 33.4 g/dL Normal 30.5-36.0 [facility] Comment on above: Order Comment: Speci men Type: BLOOD SPECIMEN Ordering Facility: [facility] Address: [address] [place] [address] Performed By: #### 5 8410-2 #### [facility] CLIA [id number] [address] [place] [address] [place] MCV (RBC) [Entitic vol] 90.8 fL Normal 80.0-100.0 [facility] Comment on above: Order Comment: Speci men Type: BLOOD SPECIMEN Ordering Facility: [facility] Address: [address] [place] [address] Performed By: #### 5 8410-2 #### [facility] CLIA [id number] [address] [place] [address] [place] Nucleated RBC (Bld) [#/Vol] 10*3/uL Normal <0.01 [facility] Comment on above: Order Comment: Speci men Type: BLOOD SPECIMEN Ordering Facility: [facility] Address: [address] [address] Performed By: #### 5 8410-2 #### [facility] CLIA [id number] [place] [address] [place] Platelet mean volume (Bld) [Entitic vol] 11.3 fL Normal 9.0-12.7 [facility] Comment on above: Order Comment: Speci men Type: BLOOD SPECIMEN Ordering Facility: [facility] Address: [address] [address] Performed By: #### 5 8410-2 #### [facility] CLIA [id number] [address] [place] [address] [place] Platelets (Bld) [#/Vol] 146 10*3/uL Low 150-400 [facility] Comment on above: Order Comment: Speci men Type: BLOOD SPECIMEN Ordering Facility: [facility] Address: [address] [address] Performed By: #### 5 8410-2 #### [facility] CLIA [id number] [address] [place] [address] [place] RBC (Bld) [#/Vol] 4.22 10*6/uL Normal 4.20-6.00 [facility] Comment on above: Order Comment: Speci men Type: BLOOD SPECIMEN Ordering Facility: [facility] Address: [address] [address] Performed By: #### 5 8410-2 #### [facility] CLIA [id number] [address] [place] [address] [place] WBC (Bld) [#/Vol] 10.56 10*3/uL Normal 3.70-11.00 [facility] Comment on above: Order Comment: Speci men Type: BLOOD SPECIMEN Ordering Facility: [facility] Address: [address] [address] Performed By: #### 5 8410-2 #### [facility] [id number] [address] [place] CONSULT PROGon 02-24-2023 CONSULT PROG HNO ID: [id number] Author: Norberto Kennedy PA-C Service: Pain Management Author Type: Physician Tube Bending Machine Operator Type: Consult Progress Note Filed: 02/24/2023 8:51 AM Note Text: PERIPHERAL NERVE CATHETER PROGRESS NOTE PATIENT NAME: Yoni Ramirez SERVICE DATE: 02/24/2023 SERVICE TIME: 8:37 AM ASSESSMENT Yoni Ramirez is a 77 year old male who is POD# 1, S/P .Attempted ekwj-vey-qzsvi repair of L femoral hernia Excision of [...] SUBJECTIVE CHIEF COMPLAINT: POD# 1, S/P .Attempted yemy-yje-oasnm repair of L femoral hernia Excision of [...] which included preparing to see the patient, gznf-lw-uldu patient care, completing clinical documentation, obtaining and/or reviewing separately obtained history, performing a medically appropriate examination, and care coordination (not separately reported). SIGNATURE: Norberto Kennedy PA-C PATIENT NAME: Yoni Ramirez DATE: February 24, 2023 TIME: 8:37 AM PAGER/CONTACT #: APMS [phone] Normal [facility] Magnesium SerPl-mCncon 02-24 Magnesium [Mass/Vol] 1.8 mg/dL Normal 1.7-2.3 [facility] Comment on above: Order Comment: Speci men Type: BLOOD SPECIMEN Ordering Facility: [facility] Address: [address] [place] [id number] Performed By: #### 2 4321-2, 58586-9 #### [facility] CLIA [id number] [address] [place] NURSING PROGon 02-24-2023 NURSING PROG HNO ID: [id number] Author: Aminah Dos Santos RN Service: ? [...] Infusing as ordered . Ice provided. Normal [facility] THERAPY NTon 02-24-2023 THERAPY NT HNO ID: [id number] Author: Ree Gardner, PT Service: Physical Therapy Author Type: Physical Therapist Type: Therapy (PT/OT/Speech/Resp) Filed: 02/24/2023 4:39 PM Note Text: Physical Therapy Evaluation SERVICE DATE: 02/24/2023 SERVICE TIME: 1600 to 1633 ROOM: [place] [address] Recommended Discharge Disposition: Home Recommended Discharge Disposition [...] Surgery For Left Inguinal Hernia, S/P Attempted Luqq-Ftg-Efuff Repair Of Left Femoral Hernia, Excision Of Previously Implanted Mesh, Exploratory Laparotomy, Bilateral TAR, Implantation Of 30 x 30 cm Prolene Mesh 02/23/23 Reason for Hospital Admission: Scheduled Surgery For Left Inguinal Hernia, S/P Attempted Ygdw-Tfq-Lnwzg Repair Of Left Femoral Hernia, Excision Of [...] Comment Comments: In one level home in [place], [place] Assistance Available: PRN Entry To Home: [...] Reduced mobility-other Interventions Provided: Evaluation, Therapeutic Activity (69821) $ Evaluation-Moderate (39047) Billed Units: 1 unit Therapeutic Activity (31501) Treatment Minutes: 15 $ Therapeutic Activity (02499) Billed Units: 1 unit Training AND Education Provided in: Anatomy and Impact on Deficits, Assistive Device Use, Benefits of In-Hospital Mobility, Disease Specific Education, Expected Functional Level The Following Therapeutic Skills Were Used: Activity Dosing, Cues for Sequencing/Proper Technique for Activity, Cuing Verbal, Muscl (more content not included)... Normal [facility] THERAPY NT HNO ID: [id number] Author: Judith Hernandez, OTR/L Service: Occupational Therapy Author Type: Occupational Therapist Type: Therapy (PT/OT/Speech/Resp) Filed: 02/24/2023 1:09 PM Note Text: Occupational Therapy Evaluation SERVICE DATE: 02/24/2023 SERVICE TIME: 40 to 18 ROOM: [place] [address] Scheduled Surgery For Left Inguinal Hernia, S/P Attempted Tgif-Pzb-Cbhqv Repair Of Left Femoral Hernia, Excision Of [...] Shoe Horn, Long Handled Sponge, Wheeled Walker, Merchant Seaman, Sock Aid, Shower Chair OT 6 Clicks Score: 17 Precautions/Activity Restrictions: Abdominal, Bed/Chair Alarm, Fall Risk, Lines/Tubes/Drains, Diet Restrictions, Other: See Comments (Clear Liquid Diet, 2L 02 this date) Current Hospital Course: Scheduled Surgery For Left Inguinal Hernia, S/P Attempted Axfh-Yyt-Nwrox Repair Of Left Femoral Hernia, Excision Of Previously Implanted Mesh, Exploratory Laparotomy, Bilateral TAR, Implantation Of 30 x 30 cm Prolene Mesh 02/23/23 Reason for Hospital Admission: Scheduled Surgery For Left Inguinal Hernia, S/P Attempted Gsop-Zvb-Djicd Repair Of Left Femoral Hernia, Excision Of Previously Implanted Mesh, Exploratory Laparotomy, Bilateral TAR, Implantation Of 30 x 30 cm Prolene Mesh 02/23/23 Relevant Past Medical History: MIHIR On CPAP, Primary HTN, Prostate CA, Gout, Refer to [facility] Occupational Therapy Problem List: Pain, Safety Deficits, Impaired Self Care, Decreased Activity Tolerance, Decreased Strength, Functional Mobility Impairment Treatment Interventions: Education, Self Care/Home Management, Energy Conservation Training, Strengthening, Functional Mobility Training Home Environment Patient Lives With: Significant Other, Other: See Comment Comments: In one level home in [place], [place] Assistance Available: PRN Entry To Home: [...] situation 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 [facility] THERAPY NT HNO ID: [id number] Author: VIKA Hall/Adriel Service: Occupational Therapy Author Type: Occupational Therapist Type: Therapy (PT/OT/Speech/Resp) Filed: 02/24/2023 12:40 PM Note Text: OCCUPATIONAL THERAPY MISSED VISIT SERVICE DATE: 02/24/2023 SERVICE TIME: 0832 to 0832 ROOM: [place] [address] Patient not seen due to other service at bedside. Will see as able. SIGNATURE: VIKA Hall/Adriel PATIENT NAME: Yoni Ramirez DATE: February 24, 2023 TIME: 8:37 AM [facility] ANES PRE-OPon 02-23-2023 ANES PRE-OP HNO ID: [id number] Author: Stefanie Hitchcock APRN.CRNA Service: Anesthesiology Author Type: Nurse It Security Consulting Director Type: Anesthesia Preprocedure Evaluation Filed: 02/23/2023 2:26 PM Note Text: ANESTHESIOLOGY DAY OF SURGERY NOTE : 1945 Procedure Information Date/Time: 02/23/23 1229 Procedure: HERNIORRHAPHY INGUINAL ELECTIVE ADULT REDUCIBLE (Left: Groin) - w/mesh Location: OR / OR Surgeons: Donato Bishop MD Estimated [...] and consent discussed: yes. Patient / Responsible Republican agrees to proceed: yes Patient / Surrogate [...] February 23, 2023 TIME: 2:24 PM CSN: [id number] [facility] PT EDon 02-23-2023 PT ED HNO ID: [id number] Author: Cecilia Jensen RN Service: ? Author [...] (RECOMMENDATION): None Electronically Signed By: Cecilia Jensen [facility] PT ED HNO ID: [id number] Author: Cecilia Jensen RN Service: ? Author [...] (RECOMMENDATION): None Electronically Signed By: Cecilia Jensen [facility] SURGICAL PATHOLOGYon 023 CASE REPORT [facility] Comment on above: Order Comment: Specesperanza chan Type: BLOOD SPECIMEN Ordering Facility: [facility] Address: [address] [place] [address] Result Comment: Surg ical Pathology Report Case: [id number] Authorizing Provider: Donato Bishop MD Collected: 02/23/2023 05:38 PM Ordering Location: [facility] Received: 02/26/2023 08:20 AM Operating Room Pathologist: Keara Hernandez MD Specimen: RETROPERITONEUM BIOPSY, peritoneal mass Performed By: #### 2 4321-2, #### [facility] CLIA [id number] [address] [place] [address] CLINICAL HISTORY w/mesh Normal [facility] Comment on above: Order Comment: Speci rocio Type: BLOOD SPECIMEN Ordering Facility: [facility] Address: [address] [place] [address] Result Comment: Pre-op diagnosis: Unilateral recurrent inguinal hernia without obstruction or gangrene [K40.91] Performed By: #### 2 4321-2, #### [facility] CLIA [id number] FINAL DIAGNOSIS [facility] Comment on above: Order Comment: Speci rocio Type: BLOOD SPECIMEN Ordering Facility: [facility] Address: [address] [place] [address] Result Comment: Ramirez kellogg, biopsy: - Degenerating fibroadipose tissue with dystrophic calcification. Performed By: #### 2 4320-2, #### [facility] CLIA [id number] [address] [place] [address] OF [facility] FINAL PERFORMING LAB [facility] Comment on above: Order Comment: Speci men Type: BLOOD SPECIMEN Ordering Facility: [facility] Address: [address] [address] Result Comment: Diag nostic interpretation performed at [facility], [address] [address] CLIA# [id number] [employer] Elevator Erector: Keara Hernandez M.D. Performed By: #### 2 2, #### [facility] CLIA [id number] [address] [place] [address] GROSS DESCRIPTION [facility] Comment on above: Order Comment: Speci men Type: BLOOD SPECIMEN Ordering Facility: [facility] Address: [address] [address] Result Comment: A. R ETROPERITONEUM BIOPSY Received [...] AM Gross examination performed at [facility], [address] [place] [address] CLIA # [id number] Performed By: #### 2 4320-11, #### [facility] CLIA [id number] [address] [place] [address] OF BERNICE TYPE + SCREENon 02-23-2023 ABO A [facility] Comment on above: Order Comment: Speci men Type: BLOOD SPECIMENOrdering Facility: [facility] Address: [address] [place] [address] Performed By: #### T SCR ####[facility] [id number] [address] Performed By: #### C ONABO ####[facility] [id number] [address] HISTORICAL AB SCR STATUS Negative Normal [facility] Comment on above: Order Comment: Speci men Type: BLOOD SPECIMENOrdering Facility: [facility] Address: [address] [place] [address] Performed By: #### T SCR ####[facility] [id number] [address] Rh Nom (Bld) Positive Normal [facility] Comment on above: Order Comment: Speci men Type: BLOOD SPECIMENOrdering Facility: [facility] Address: [address] [place] [address] Performed By: #### T SCR ####[facility] [id number] [address] Performed By: #### C ONABO ####[facility] [id number] [address] TYPE AND SCREEN EXPIRATION 02/26/2023 23:59 Normal [facility] Comment on above: Order Comment: Speci men Type: BLOOD SPECIMENOrdering Facility: [facility] Address: [address] [place] [address] Performed By: #### T SCR ####[facility] [id number] [address] CBC AUTO DIFFon 02-21-2023 BASO # 0.0 103/ul Normal 0.0-0.1 [facility] Comment on above: Performed By: #### C BC ####[facility] [address] [address]DrBrian Alex Eddy Basophils/100 WBC (Bld) 0.5 % Normal 0.2-2.0 [facility] Comment on above: Performed By: #### C BC ####[facility] [address] [id number]. Alex Eddy EO # 0.2 103/ul Normal 0.0-0.7 [facility] Comment on above: Performed By: #### C BC ####[facility] [address] [address]Dr. Alex Eddy Eosinophils/100 WBC (Bld) 4.0 % Normal 0.9-7.0 [facility] Comment on above: Performed By: #### C BC ####[facility] [address] [address]Dr. Alex Eddy Erythrocyte distribution width (RBC) [Ratio] 16.3 % Critically high 11.0-15.0 [facility] Comment on above: Performed By: #### C BC ####[facility] [address] [address]Dr. Alex Eddy Hematocrit (Bld) [Volume fraction] 43.3 % Normal 42.0-54.0 [facility] Comment on above: Performed By: #### C BC ####[facility] [address] [address]Dr. Alex Eddy Hemoglobin (Bld) [Mass/Vol] 14.0 g/dL Normal 14.0-18.0 [facility] Comment on above: Performed By: #### C BC ####[facility] [address] [address]Dr. Alex Eddy IG # 0.02 10e3/ul Normal 0.00-0.03 [facility] Comment on above: Performed By: #### C BC ####[facility] [address] [address]Dr. Alex Eddy IG % 0.4 % Normal 0.0-0.5 [facility] Comment on above: Performed By: #### C BC ####[facility] [address] [address]Dr. Alex Eddy LYMPH # 1.1 103/ul Critically low 1.2-3.8 [facility] Comment on above: Performed By: #### C BC ####[facility] [address] [id number]. lAex Eddy Lymphocytes/100 WBC (Bld) 19.5 % Critically low 20.5-60.0 [facility] Comment on above: Performed By: #### C BC ####[facility] [address] [address]Dr. Alex Surjit MANUAL DIFF REQ NO Normal [facility] Comment on above: Performed By: #### C BC ####[facility] [address] [address]Dr. Alex Surjit MCH (RBC) [Entitic mass] 30.1 pg Normal 25.9-34.0 [facility] Comment on above: Performed By: #### C BC ####[facility] [address] [address]Dr. Alex Surjit MCHC (RBC) [Mass/Vol] 32.3 g/dL Normal 29.9-35.2 [facility] Comment on above: Performed By: #### C BC ####[facility] [address] [address]Dr. Alex Surjit MCV (RBC) [Entitic vol] 93.1 fL Normal 80.0-94.0 [facility] Comment on above: Performed By: #### C BC ####[facility] [address] [place], [place] [address]Dr. Gretelmickey Surjit MONO # 0.7 103/ul Normal 0.3-0.8 [facility] Comment on above: Performed By: #### C BC ####[facility] [address] [address]Dr. Alex Surjit Monocytes/100 WBC (Bld) 11.9 % Normal 1.7-12.0 [facility] Comment on above: Performed By: #### C BC ####[facility] [address] [address]Dr. Gretelmickey Surjit NEUT # 3.5 103/ul Normal 1.4-6.5 [facility] Comment on above: Performed By: #### C BC ####[facility] [address] [address]Dr. Alex Eddy Neutrophils/100 WBC (Bld) 63.7 % Normal 43.0-75.0 [facility] Comment on above: Performed By: #### C BC ####[facility] [address] [address]DrBrian Eddy Platelet mean volume (Bld) [Entitic vol] 10.9 fL Normal 9.5-13.5 [facility] Comment on above: Performed By: #### C BC ####[facility] [address] [address]Dr. Alex Eddy PLT 168 103/ul Normal 150-450 [facility] Comment on above: Performed By: #### C BC ####[facility] [address] [address]Dr. Alex Eddy RBC 4.65 106/ul Critically low 4.70-6.10 [facility] Comment on above: Performed By: #### C BC ####[facility] [address] [address]DrBrian Eddy WBC 5.5 103/ul Normal 4.0-11.0 [facility] Comment on above: Performed By: #### C BC ####[facility] [address] [address]DrBrian Eddy CRPon 02-21-2023 CRP 0.3 mg/dL Normal <=1.0 [facility] Comment on above: Performed By: #### C RP #### [facility] [address] [address] [address] Alex Eddy SED RATE WESTERGRENon 2022 SED RATE 37 mm/hr Critically high <=20 [facility] Comment on above: Performed By: #### S EDR #### [facility] [address] [address] [address] Alex Eddy CBC W Auto Differential pane l (Bld)on 02-14-2023 Basophils (Bld) [#/Vol] 0.05 10*3/uL <0.11 k/uL [facility] Basophils/100 WBC (Bld) 0.7 % [facility] Differential cell count method Nom (Bld) Auto [facility] Eosinophils (Bld) [#/Vol] 0.29 10*3/uL <0.46 k/uL [facility] Eosinophils/100 WBC (Bld) 4.3 % [facility] Erythrocyte distribution width (RBC) [Ratio] 16.7 % High 11.5 - 15.0 % [facility] Hematocrit (Bld) [Volume fraction] 44.7 % 39.0 - 51.0 % [facility] Hemoglobin (Bld) [Mass/Vol] 14.4 g/dL 13.0 - 17.0 g/dL [facility] Immature granulocytes (Bld) [#/Vol] 0.07 10*3/uL <0.10 k/uL [facility] Immature granulocytes/100 WBC (Bld) 1.0 % [facility] Lymphocytes (Bld) [#/Vol] 1.37 10*3/uL 1.00 - 4.00 k/uL [facility] Lymphocytes/100 WBC (Bld) 20.3 % [facility] MCH (RBC) [Entitic mass] 30.3 pg 26.0 - 34.0 pg [facility] MCHC (RBC) [Mass/Vol] 32.2 g/dL 30.5 - 36.0 g/dL [facility] MCV (RBC) [Entitic vol] 93.9 fL 80.0 - 100.0 fL [facility] Monocytes (Bld) [#/Vol] 0.91 10*3/uL High <0.87 k/uL [facility] Monocytes/100 WBC (Bld) 13.5 % [facility] Neutrophils (Bld) [#/Vol] 4.06 10*3/uL 1.45 - 7.50 k/uL [facility] Neutrophils/100 WBC (Bld) 60.2 % [facility] Nucleated RBC (Bld) [#/Vol] <0.01 k/uL [facility] Nucleated RBC/100 WBC (Bld) [Ratio] 0.0 /100 WBC [facility] Platelet mean volume (Bld) [Entitic vol] 10.8 fL 9.0 - 12.7 fL [facility] Platelets (Bld) [#/Vol] 191 10*3/uL 150 - 400 k/uL [facility] RBC (Bld) [#/Vol] 4.76 10*6/uL 4.20 - 6.00 m/uL [facility] WBC (Bld) [#/Vol] 6.75 10*3/uL 3.70 - 11.00 k/uL [facility] MRI PELVIS WO/W IVCONon 02-2 [...] Left hernia contains a loop of colon Mime Artist: ROSANA Transcribe Date/Time: Dec 07 2022 9:43A Dictated by : EVANS ADAM MD This examination was interpreted and the report reviewed and electronically signed by: EVANS ADAM MD on Dec 07 2022 10:19AM EST [id number] [facility] NURSING PROGon 12-06-2022 NURSING PROG HNO ID: [id number] Author: Melanie Pierre RN Service: Nursing Author [...] DATE: December 06, 2022 TIME: 9:07 AM [facility] ALLIED HEALTH 12-04-2022 ALLIED HEALTH HNO ID: [id number] Author: Kelly Benavides, nuclear officer Service: Radiology Author Type: Terminal Superintendent Type: Allied Health Filed: 12/04/2022 4:34 PM [...] Campoverde Tech December 04, 2022 4:33 PM Normal [facility] MRI PELVIS WO/W IVCONon 02-2 MRI PELVIS WO/W IVCON * * *Final Report* * * DATE OF EXAM: Dec 04 2022 4:56PM [facility] 0742 - MRI PELVIS WO/W IVCON [...] Left hernia contains a loop of colon Mime Artist: ROSANA Transcribe Date/Time: Dec 07 2022 9:43A Dictated by : EVANS ADAM MD This examination was interpreted and the report reviewed and electronically signed by: EVANS ADAM MD on Dec 07 2022 10:19AM EST [id number] [facility] NURSING PROGon 12-04-2022 NURSING PROG HNO ID: [id number] Author: Sima Craig RN Service: Nursing Author [...] DATE: December 04, 2022 TIME: 2:36 PM [facility] AFP (TUMOR MARKER)on 023 AFP, Serum, Tumor Marker <1.8 Normal 0.0-8.4 [facility] Comment on above: Result Comment: [employer] Electrochemiluminescence Immunoassay (ECLIA) . Values obtained with different assay methods or kits cannot be used interchangeably. Results cannot be interpreted as absolute evidence of the presence or absence of malignant disease. . This test is not interpretable in females. Performed By: #### A FP. #### [facility] [address] [place] [address] Dr. Alex Eddy HCG QUANT TUMOR MARKERon HCG QNT TUMOR MARKER <1 Normal 0-3 [facility] Comment on above: Result Comment: [employer] Electrochemiluminescence Immunoassay (ECLIA) . The [employer] [...] developed and its performance characteristics determined by [employer]. It has not been cleared or approved by the Food and Drug Administration for use as a tumor marker. . This test is not interpretable as a tumor marker in females. Performed By: #### H CGTMOR #### [facility] [address] [place] [address] Dr. Alex Eddy CREATININEon 11-06-2022 Creatinine [Mass/Vol] 0.60 mg/dL Critically low 0.70-1.30 [facility] Comment on above: Performed By: #### C SILVANA #### [facility] [address] [place] [address] Dr. Alex Eddy EGFR-AF COMORAN >60 Normal >=60 [facility] Comment on above: Performed By: #### C SILVANA #### [facility] [address] [place] [address] Dr. Alex Eddy EGFR-NON AF COMORAN >60 Normal >=60 [facility] Comment on above: Performed By: #### C SILVANA #### [facility] [address] [place] [address] CHEST W CONon [...] MIKE LYNCH Date: 2022-11-06 15:28 Normal [facility] LDHon 11-06-2022 LDH 158 U/L Normal 85-227 [facility] Comment on above: Performed By: #### L #### [facility] [address] [address] [address] Alex Eddy US SCROTUMon 10-11-2022 US [...] CASSIDY SAMUEL Date: 2022-10-11 16:29 Normal [facility] US SCROTUMon 08-06-2022 US SCROTUM EXAMINATION: US [...] by: CASSIDY SAMUEL Date: 2022-08-06 16:20 Normal [facility] Vital Signs Date Time Vital Sign Value Performing Clinician Facility 03-06-2025 12:49-0500 Body height 177.8 cm Maxine Sandy DO Work Phone: [facility] 12-18-2024 12:49-0500 Body mass index (BMI) [Ratio] 32.57 kg/m2 Maxine Sandy DO Work Phone: [facility] 12-18-2024 12:49-0500 Body weight 102.97 kg Maxine Sandy DO Work Phone: [facility] 12-18-2024 12:49-0500 Diastolic blood pressure 84 mm[Hg] Maxine Sandy DO Work Phone: [facility] 12-18-2024 12:49-0500 Heart rate 88 /min Maxine Sandy DO Work Phone: [facility] 12-18-2024 12:49-0500 SaO2% (BldA) [Mass fraction] 94 % Maxine Sandy DO Work Phone: [facility] 12-18-2024 12:49-0500 Systolic blood pressure 162 mm[Hg] Maxine Sandy DO Work Phone: [facility] 12-10-2024 08:54-0500 Blood Pressure Location [facility] 12-10-2024 08:54-0500 Body temperature 98.6 [degF] Radha [facility] 12-10-2024 08:54-0500 Diastolic blood pressure 84 mm[Hg] Radha L[facility] 12-10-2024 08:54-0500 Heart rate 58 /min Radha L[facility] 12-10-2024 08:54-0500 Respiratory rate 16 /min Radha Lue [facility] 12-10-2024 08:54-0500 Systolic blood pressure 133 mm[Hg] Radha Whitten [facility] 12-03-2024 11:39-0500 Body mass index (BMI) [Ratio] 34.04 kg/m2 TUNG Hernandez MD Work Phone: [facility] 12-03-2024 11:39-0500 Body temperature 97.81 [degF] TUNG Hernandez MD Work Phone: [facility] 12-03-2024 11:39-0500 Body weight 107.6 kg TUNG Hernandez MD Work Phone: [facility] 12-03-2024 11:39-0500 Diastolic blood pressure 85 mm[Hg] TUNG Hernandez MD Work Phone: [facility] 12-03-2024 11:39-0500 Heart rate 56 /min TUNG Hernandez MD Work Phone: [facility] 12-03-2024 11:39-0500 Respiratory rate 16 /min TUNG Hernandez MD Work Phone: [facility] 12-03-2024 11:39-0500 SaO2% (BldA) [Mass fraction] 97 % TUNG Hernandez MD Work Phone: [facility] 12-03-2024 11:39-0500 Systolic blood pressure 159 mm[Hg] TUNG Hernandez MD Work Phone: [facility] 10-29-2024 11:09-0500 Body height 177.8 cm Don Joseph DO Work Phone: [facility] 10-29-2024 11:09-0500 Body mass index (BMI) [Ratio] 33.4 kg/m2 Don Joseph DO Work Phone: [facility] 10-29-2024 11:09-0500 Body weight 105.6 kg Don Joseph DO Work Phone: [facility] 10-29-2024 11:09-0500 Diastolic blood pressure 70 mm[Hg] Don Joseph DO Work Phone: [facility] 10-29-2024 11:09-0500 Heart rate 60 /min Don Joseph DO Work Phone: [facility] 10-29-2024 11:09-0500 Systolic blood pressure 132 mm[Hg] Don Joseph DO Work Phone: [facility] 10-27-2024 15:23-0500 Body height 177.8 cm [facility] 10-27-2024 15:23-0500 Body mass index (BMI) [Ratio] 33.3 kg/m2 [facility] 10-27-2024 15:23-0500 Body weight 105.46 kg [facility] 10-27-2024 15:23-0500 Diastolic blood pressure 82 mm[Hg] [facility] 10-27-2024 15:23-0500 Heart rate 59 /min [facility] 10-27-2024 15:23-0500 Respiratory rate 12 /min [facility] 10-27-2024 15:23-0500 Systolic blood pressure 181 mm[Hg] [facility] 09-05-2024 14:42-0500 Body height 177.8 cm [facility] 09-05-2024 14:42-0500 Body mass index (BMI) [Ratio] 32.8 kg/m2 [facility] 09-05-2024 14:42-0500 Body weight 103.98 kg [facility] 09-05-2024 14:42-0500 Diastolic blood pressure 66 mm[Hg] [facility] 09-05-2024 14:42-0500 Heart rate 56 /min [facility] 09-05-2024 14:42-0500 Respiratory rate 12 /min [facility] 09-05-2024 14:42-0500 Systolic blood pressure 135 mm[Hg] [facility] 07-30-2024 15:50-0400 Body height 177.8 cm DO Bro Ball Work Phone: [facility] 07-30-2024 15:50-0400 Body mass index (BMI) [Ratio] 32.4 kg/m2 DO Bro Ball Work Phone: [facility] 07-30-2024 15:50-0400 Body weight 102.51 kg DO Bro Ball Work Phone: [facility] 07-30-2024 15:50-0400 Diastolic blood pressure 84 mm[Hg] DO Bro Ball Work Phone: [facility] 07-30-2024 15:50-0400 Heart rate 62 /min DO Bor Ball Work Phone: [facility] 07-30-2024 15:50-0400 Respiratory rate 12 /min DO Bro Ball Work Phone: [facility] 07-30-2024 15:50-0400 Systolic blood pressure 161 mm[Hg] DO Bro Ball Work Phone: [facility] 07-24-2024 17:24-0400 Diastolic blood pressure 49 mm[Hg] DO Bro Ball Work Phone: [facility] 07-24-2024 17:24-0400 Heart rate 56 /min DO Bro Ball Work Phone: [facility] 07-24-2024 17:24-0400 Respiratory rate 16 /min DO Bro Ball Work Phone: [facility] 07-24-2024 17:24-0400 SaO2% (BldA) [Mass fraction] 91 % DO Bro Ball Work Phone: [facility] 07-24-2024 17:24-0400 Systolic blood pressure 94 mm[Hg] DO Bro Ball Work Phone: [facility] 07-24-2024 12:22-0400 Body height 175.26 cm DO Bro Ball Work Phone: [facility] 07-24-2024 12:22-0400 Body temperature 97.6 [degF] DO Bro Ball Work Phone: [facility] 07-24-2024 12:220400 Body weight 102 kg DO Bro Ball Work Phone: [facility] 07-22-2024 11:14-0400 Diastolic blood pressure 60 mm[Hg] Don Joseph DO Work Phone: [facility] 07-22-2024 11:14040 Systolic blood pressure 138 mm[Hg] Don Joseph DO Work Phone: [facility] 07-22-2024 11:13040 Body height 177.8 cm Don Joseph DO Work Phone: [facility] 07-22-2024 11:130400 Body mass index (BMI) [Ratio] 32.46 kg/m2 Don Joseph DO Work Phone: [facility] 07-22-2024 11:13040 Body weight 102.6 kg Don Joseph DO Work Phone: [facility] 07-22-2024 11:130400 Heart rate 51 /min Don Joseph DO Work Phone: [facility] 07-18-2024 11:31-0400 Body height 177.8 cm [facility] 07-18-2024 11:31-0400 Body mass index (BMI) [Ratio] 32.3 kg/m2 [facility] 07-18-2024 11:31-0400 Body weight 102.28 kg [facility] 07-18-2024 11:31-0400 Diastolic blood pressure 66 mm[Hg] [facility] 07-18-2024 11:31-0400 Heart rate 56 /min [facility] 07-18-2024 11:31-0400 Respiratory rate 12 /min [facility] 07-18-2024 11:31-0400 Systolic blood pressure 125 mm[Hg] [facility] 07-02-2024 16:090400 Body height 177.8 cm [facility] 07-02-2024 16:09-0400 Body mass index (BMI) [Ratio] 32.1 kg/m2 [facility] 07-02-2024 16:090400 Body weight 101.66 kg [facility] 07-02-2024 16:09-0400 Diastolic blood pressure 70 mm[Hg] [facility] 07-02-2024 16:09-0400 Heart rate 59 /min [facility] 07-02-2024 16:090400 Respiratory rate 12 /min [facility] 07-02-2024 16:09-0400 Systolic blood pressure 143 mm[Hg] [facility] 06-04-2024 09:21-0400 Diastolic blood pressure 78 mm[Hg] Radha L[facility] 06-04-2024 09:21-0400 Mean blood pressure 99 mm[Hg] Radha Lue [facility] 06-04-2024 09:21-0400 Systolic blood pressure 142 mm[Hg] Radha Lue [facility] 06-04-2024 09:03-0400 Blood Pressure Location Radha Lue [facility] 06-04-2024 09:03-0400 Heart rate 56 /min Radha Lue [facility] 06-04-2024 09:03-0400 Systolic blood pressure 146 mm[Hg] Radha Lue [facility] 05-20-2024 12:58-0400 Body mass index (BMI) [Ratio] 31.95 kg/m2 TUNG Hernandez MD Work Phone: [facility] 05-20-2024 12:58-0400 Body temperature 98.4 [degF] TUNG Hernandez MD Work Phone: [facility] 05-20-2024 12:58-0400 Body weight 101 kg TUNG Hernandez MD Work Phone: [facility] 05-20-2024 12:58-0400 Diastolic blood pressure 80 mm[Hg] TUNG Hernandez MD Work Phone: [facility] 05-20-2024 12:58-0400 Heart rate 59 /min TUNG Hernandez MD Work Phone: [facility] 05-20-2024 12:58-0400 Respiratory rate 18 /min TUNG Hernandez MD Work Phone: [facility] 05-20-2024 12:58-0400 SaO2% (BldA) [Mass fraction] 96 % TUNG Hernandez MD Work Phone: [facility] 05-20-2024 12:58-0400 Systolic blood pressure 147 mm[Hg] TUNG Hernandez MD Work Phone: [facility] 04-01-2024 10:04-0400 Body temperature 97 [degF] Donato Bishop MD Work Phone: [facility] 04-01-2024 10:04-0400 Diastolic blood pressure 67 mm[Hg] Donato Bishop MD Work Phone: [facility] 04-01-2024 10:04-0400 Heart rate 58 /min Donato Bishop MD Work Phone: [facility] 04-01-2024 10:04-0400 SaO2% (BldA) [Mass fraction] 96 % Donato Bishop MD Work Phone: [facility] 04-01-2024 10:04-0400 Systolic blood pressure 162 mm[Hg] Donato Bishop MD Work Phone: [facility] 02-12-2024 10:44-0400 Body height 177.8 cm [facility] 02-12-2024 10:44-0400 Body mass index (BMI) [Ratio] 32.8 kg/m2 [facility] 02-12-2024 10:44-0400 Body weight 103.92 kg [facility] 02-12-2024 10:44-0400 Diastolic blood pressure 71 mm[Hg] [facility] 02-12-2024 10:44-0400 Heart rate 53 /min [facility] 02-12-2024 10:44-0400 Respiratory rate 12 /min [facility] 02-12-2024 10:44-0400 Systolic blood pressure 124 mm[Hg] [facility] 11-28-2023 10:32-0500 Blood Pressure Location Radha Lue [facility] 11-28-2023 10:32-0500 Diastolic blood pressure 84 mm[Hg] Radha Lue [facility] 11-28-2023 10:32-0500 Heart rate 106 /min Radha Lue [facility] 11-28-2023 10:32-0500 Respiratory rate 16 /min Radha Lue [facility] 11-28-2023 10:32-0500 Systolic blood pressure 135 mm[Hg] Radha Lue [facility] 11-20-2023 13:16-0500 Body temperature 97.3 [degF] TUNG Hernandez MD Work Phone: [facility] 11-20-2023 13:16-0500 Body weight 103.9 kg TUNG Hernandez MD Work Phone: [facility] 11-20-2023 13:16-0500 Diastolic blood pressure 76 mm[Hg] TUNG Hernandez MD Work Phone: [facility] 11-20-2023 13:16-0500 Heart rate 59 /min TUNG Hernandez MD Work Phone: [facility] 11-20-2023 13:16-0500 Respiratory rate 16 /min TUNG Hernandez MD Work Phone: [facility] 11-20-2023 13:16-0500 SaO2% (BldA) [Mass fraction] 96 % TUNG Hernandez MD Work Phone: [facility] 11-20-2023 13:16-0500 Systolic blood pressure 145 mm[Hg] TUNG Hernandez MD Work Phone: [facility] 10-11-2023 11:00-0500 Body height 177.8 cm Bro Ball Other [facility] Other 10-11-2023 11:00-0500 Body mass index (BMI) [Ratio] 32.51 kg/m2 Bro Ball Other [facility] Other 10-11-2023 11:00-0500 Body weight 102.79 kg Bro Ball Other [facility] Other 10-11-2023 11:00-0500 Diastolic blood pressure 76 mm[Hg] Bro Ball Other [facility] Other 10-11-2023 11:00-0500 Respiratory rate 12 /min Bro Ball Other [facility] Other 10-11-2023 11:00-0500 Systolic blood pressure 167 mm[Hg] Bro Ball Other [facility] Other 08-15-2023 08:46-0400 Blood Pressure Location Radha Whitten [facility] 08-15-2023 08:46-0400 Diastolic blood pressure 76 mm[Hg] Radha Fish [facility] 08-15-2023 08:46-0400 Heart rate 80 /min Radha Lue [facility] 08-15-2023 08:46-0400 Respiratory rate 16 /min Radha Lue [facility] 08-15-2023 08:46-0400 Systolic blood pressure 132 mm[Hg] Radha Lue [facility] 07-13-2023 10:00-0400 Body height 177.8 cm Bro Ball Other [facility] Other 07-13-2023 10:00-0400 Body mass index (BMI) [Ratio] 32.57 kg/m2 Bro Ball Other [facility] Other 07-13-2023 10:00-0400 Body weight 102.97 kg Bro Ball Other [facility] Other 07-13-2023 10:00-0400 Diastolic blood pressure 70 mm[Hg] Bro Ball Other [facility] Other 07-13-2023 10:00-0400 Respiratory rate 12 /min Bro Ball Other [facility] Other 07-13-2023 10:00-0400 Systolic blood pressure 143 mm[Hg] Bro Ball Other [facility] Other 05-15-2023 13:24-0400 Body temperature 97.5 [degF] TUNG Hernandez MD Work Phone: [facility] 05-15-2023 13:24-0400 Body weight 103.42 kg TUNG Hernandez MD Work Phone: [facility] 05-15-2023 13:24-0400 Diastolic blood pressure 77 mm[Hg] TUNG Hernandez MD Work Phone: [facility] 05-15-2023 13:24-0400 Heart rate 55 /min TUNG Hernandez MD Work Phone: [facility] 05-15-2023 13:24-0400 Respiratory rate 16 /min TUNG Hernandez MD Work Phone: [facility] 05-15-2023 13:24-0400 SaO2% (BldA) [Mass fraction] 96 % TUNG Hernandez MD Work Phone: [facility] 05-15-2023 13:24-0400 Systolic blood pressure 153 mm[Hg] TUNG Hernandez MD Work Phone: [facility] 04-11-2023 13:30-0400 Body height 177.8 cm Bro Ball Other [facility] Other 04-11-2023 13:30-0400 Body mass index (BMI) [Ratio] 32.88 kg/m2 Bro Ball Other [facility] Other 04-11-2023 13:30-0400 Body weight 103.97 kg Bro Ball Other [facility] Other 04-11-2023 13:30-0400 Diastolic blood pressure 72 mm[Hg] Bro Ball Other [facility] Other 04-11-2023 13:30-0400 Respiratory rate 12 /min Bro Ball Other [facility] Other 04-11-2023 13:30-0400 Systolic blood pressure 124 mm[Hg] Bro Ball Other [facility] Other 02-21-2023 15:15-0400 Body height 177.8 cm Bro Ball Other [facility] Other 02-21-2023 15:15-0400 Body mass index (BMI) [Ratio] 34.89 kg/m2 Bro Ball Other [facility] Other 02-21-2023 15:15-0400 Body weight 110.32 kg Bro Ball Other [facility] Other 02-21-2023 15:15-0400 Diastolic blood pressure 76 mm[Hg] Bro [facility] Other [facility] Other 02-21-2023 15:15-0400 Respiratory rate 12 /min Bro [facility] Other [facility] Other 02-21-2023 15:15-0400 Systolic blood pressure 165 mm[Hg] Bro [facility] Other [facility] Other 02-14-2023 13:30-0400 Body height 177.8 cm Pacc 2 Work Phone: [facility] 02-14-2023 13:30-0400 Body temperature 98.1 [degF] Pacc 2 Work Phone: [facility] 02-14-2023 13:30-0400 Body weight 109.77 kg Pacc 2 Work Phone: [facility] 02-14-2023 13:30-0400 Diastolic blood pressure 81 mm[Hg] Pacc 2 Work Phone: [facility] 02-14-2023 13:30-0400 Heart rate 61 /min Pacc 2 Work Phone: [facility] 02-14-2023 13:30-0400 Respiratory rate 16 /min Pacc 2 Work Phone: [facility] 02-14-2023 13:30-0400 SaO2% (BldA) [Mass fraction] 96 % Pacc 2 Work Phone: [facility] 02-14-2023 13:30-0400 Systolic blood pressure 164 mm[Hg] [facility] 2 Work Phone: [facility] 02-05-2023 17:00-0400 Body height 177.8 cm Bro Ball Other [facility] Other 02-05-2023 17:00-0400 Body mass index (BMI) [Ratio] 34.89 kg/m2 Bro Ball Other [facility] Other 02-05-2023 17:00-0400 Body weight 110.32 kg Bro Ball Other [facility] Other 02-05-2023 17:00-0400 Diastolic blood pressure 79 mm[Hg] Bro Ball Other [facility] Other 02-05-2023 17:00-0400 Respiratory rate 12 /min Bro Ball Other [facility] Other 02-05-2023 17:00-0400 Systolic blood pressure 175 mm[Hg] Bro Ball Other [facility] Other 01-29-2023 11:00-0400 Body height 177.8 cm Bro Ball Other [facility] Other 01-29-2023 11:00-0400 Body mass index (BMI) [Ratio] 34.89 kg/m2 Bro Ball Other [facility] Other 01-29-2023 11:00-0400 Body weight 110.32 kg Bro Ball Other [facility] Other 01-29-2023 11:00-0400 Diastolic blood pressure 80 mm[Hg] Bro Ball Other [facility] Other 01-29-2023 11:00-0400 Respiratory rate 12 /min Bro Ball Other [facility] Other 01-29-2023 11:00-0400 Systolic blood pressure 166 mm[Hg] Bro Ball Other [facility] Other 01-24-2023 08:41-0400 Blood Pressure Location LUMA YESSENIA [facility] 01-24-2023 08:41-0400 Diastolic blood pressure 69 mm[Hg] LUMA YESSENIA [facility] 01-24-2023 08:41-0400 Heart rate 54 /min LUMA YESSENIA [facility] 01-24-2023 08:41-0400 Systolic blood pressure 142 mm[Hg] LUMA YESSENIA [facility] 01-11-2023 09:34-0400 Blood Pressure Location LUMA YESSENIA [facility] 01-11-2023 09:34-0400 Diastolic blood pressure 82 mm[Hg] LUMA YESSENIA [facility] 01-11-2023 09:34-0400 Heart rate 52 /min LUMA YESSENIA [facility] 01-11-2023 09:34-0400 Systolic blood pressure 172 mm[Hg] LUMA YESSENIA [facility] 12-28-2022 09:17-0400 Blood Pressure Location LUMA YESSENIA [facility] 12-28-2022 09:17-0400 Diastolic blood pressure 66 mm[Hg] LUMA CASAS [facility] 12-28-2022 09:17-0400 Heart rate 71 /min LUMA CASAS [facility] 12-28-2022 09:17-0400 Systolic blood pressure 128 mm[Hg] LUMA CASAS [facility] 12-26-2022 10:11-0400 Body height 177.8 cm Donato Bishop MD Work Phone: [facility] 12-26-2022 10:11-0400 Body temperature 97.3 [degF] Donato Bishop MD Work Phone: [facility] 12-26-2022 10:11-0400 Body weight 110.22 kg Donato Bishop MD Work Phone: [facility] 12-26-2022 10:11-0400 Diastolic blood pressure 61 mm[Hg] Donato Bishop MD Work Phone: [facility] 12-26-2022 10:11-0400 Heart rate 57 /min Donato Bishop MD Work Phone: [facility] 12-26-2022 10:11-0400 Respiratory rate 19 /min Donato Bishop MD Work Phone: [facility] 12-26-2022 10:11-0400 SaO2% (BldA) [Mass fraction] 97 % Donato Bishop MD Work Phone: [facility] 12-26-2022 10:11-0400 Systolic blood pressure 179 mm[Hg] Donato Bishop MD Work Phone: [facility] 12-14-2022 09:24-0500 Blood Pressure Location LUMA CASAS [facility] 12-14-2022 09:24-0500 Diastolic blood pressure 71 mm[Hg] LUMADOENNA JOHNSTONRY [facility] 12-14-2022 09:24-0500 Systolic blood pressure 136 mm[Hg] LUMA YESSENIA [facility] 12-12-2022 13:03-0500 Body temperature 96.4 [degF] TUNG Hernandez MD Work Phone: [facility] 12-12-2022 13:03-0500 Body weight 110.68 kg TUNG Hernandez MD Work Phone: [facility] 12-12-2022 13:03-0500 Diastolic blood pressure 74 mm[Hg] TUNG Hernandez MD Work Phone: [facility] 12-12-2022 13:03-0500 Heart rate 57 /min TUNG Hernandez MD Work Phone: [facility] 12-12-2022 13:03-0500 Respiratory rate 18 /min TUNG Hernandez MD Work Phone: [facility] 12-12-2022 13:03-0500 SaO2% (BldA) [Mass fraction] 98 % TUNG Hernandez MD Work Phone: [facility] 12-12-2022 13:03-0500 Systolic blood pressure 169 mm[Hg] TUNG Hernandez MD Work Phone: [facility] 11-30-2022 09:18-0500 Blood Pressure Location LUMA CASAS [facility] 11-30-2022 09:18-0500 Diastolic blood pressure 58 mm[Hg] LUMA CASAS [facility] 11-30-2022 09:18-0500 Heart rate 57 /min LUMA CASAS [facility] 11-30-2022 09:18-0500 Systolic blood pressure 128 mm[Hg] LUMA CASAS [facility] 11-23-2022 08:37-0500 Blood Pressure Location LUMA CASAS [facility] 11-23-2022 08:37-0500 Diastolic blood pressure 68 mm[Hg] LUMA CASAS [facility] 11-23-2022 08:37-0500 Heart rate 57 /min LUMA CASAS [facility] 11-23-2022 08:37-0500 Systolic blood pressure 127 mm[Hg] LUMA CASAS [facility] 11-09-2022 12:58-0500 Body temperature 96.69 [degF] TUNG Hernandez MD Work Phone: [facility] 11-09-2022 12:58-0500 Body weight 111.58 kg TUNG Hernandez MD Work Phone: [facility] 11-09-2022 12:58-0500 Diastolic blood pressure 75 mm[Hg] TUNG Hernandez MD Work Phone: [facility] 11-09-2022 12:58-0500 Heart rate 62 /min TUNG Hernandez MD Work Phone: [facility] 11-09-2022 12:58-0500 Respiratory rate 18 /min TUNG Hernandez MD Work Phone: [facility] 11-09-2022 12:58-0500 SaO2% (BldA) [Mass fraction] 98 % TUNG Hernandez MD Work Phone: [facility] 11-09-2022 12:58-0500 Systolic blood pressure 174 mm[Hg] TUNG Hernandez MD Work Phone: [facility] 11-08-2022 10:58-0500 Blood Pressure Location Radha Lue [facility] 11-08-2022 10:58-0500 Diastolic blood pressure 79 mm[Hg] Radha Lue [facility] 11-08-2022 10:58-0500 Heart rate 68 /min Radha Lue [facility] 11-08-2022 10:58-0500 Systolic blood pressure 139 mm[Hg] Radha Lue [facility] 10-04-2022 08:32-0500 Blood Pressure Location Radha Lue [facility] 10-04-2022 08:32-0500 Diastolic blood pressure 66 mm[Hg] Radha Lue [facility] 10-04-2022 08:32-0500 Heart rate 57 /min Radha Lue [facility] 10-04-2022 08:32-0500 Systolic blood pressure 151 mm[Hg] Radha Lue [facility] 07-13-2022 13:20-0400 Body temperature 96.69 [degF] TUNG Hernandez MD Work Phone: [facility] 07-13-2022 13:20-0400 Body weight 108.41 kg TUNG Hernandez MD Work Phone: [facility] 07-13-2022 13:20-0400 Diastolic blood pressure 81 mm[Hg] TUNG Hernandez MD Work Phone: [facility] 07-13-2022 13:20-0400 Heart rate 56 /min TUNG Hernandez MD Work Phone: [facility] 07-13-2022 13:20-0400 Respiratory rate 18 /min TUNG Hernandez MD Work Phone: [facility] 07-13-2022 13:20-0400 SaO2% (BldA) [Mass fraction] 96 % TUNG Hernandez MD Work Phone: [facility] 07-13-2022 13:20-0400 Systolic blood pressure 164 mm[Hg] TUNG Hernandez MD Work Phone: [facility] 03-28-2022 08:36-0400 Blood Pressure Location Sushant Freedman Jr. [facility] 03-28-2022 08:36-0400 Diastolic blood pressure 78 mm[Hg] Sushant Freedman Jr. [facility] 03-28-2022 08:36-0400 Heart rate 62 /min Sushant Freedman Jr. [facility] 03-28-2022 08:36-0400 Respiratory rate 16 /min Sushant Freedman Jr. [facility] 03-28-2022 08:36-0400 Systolic blood pressure 144 mm[Hg] Sushant Freedman Jr. [facility] Encounters Encounter Date Encounter Type Care Provider Facility Start: 12-18-2024 End: 12-18-2024 Madison Delgado DO Work Phone: [facility] Start: 12-18-2024 End: 12-18-2024 Bamboo flowsheet Maxine Delgado DO Work Phone: [facility] Start: 12-18-2024 End: 12-18-2024 Office outpatient visit 25 minutes Maxine Delgado DO Work Phone: [facility] Comment on above: Mild cognitive impai rment (Primary Dx); MIHIR (obstructive sleep apnea); PLMD (periodic limb movement disorder); Hypersomnia Start: 12-10-2024 End: 12-10-2024 ambulatory Radha Whitten Facility:[id number] Start: 12-10-2024 End: 12-10-2024 Patient encounter procedure Radha Whitten [facility] Start: 12-03-2024 End: 12-03-2024 ambulatory BRO CHAVEZ Facility:[facility] Start: 12-03-2024 End: 12-03-2024 Office outpatient visit 15 minutes Aaliyah Hernandez MD Work Phone: [facility] Comment on above: Malignant neoplasm o f prostate (HCC) (Primary Dx) Start: 11-11-2024 End: 11-11-2024 ambulatory BRO CHAVEZ Facility:[facility] Start: 10-29-2024 End: 10-29-2024 ambulatory [facility] Ambulatory Start: 10-29-2024 End: 10-29-2024 Office outpatient visit 25 minutes [facility] DO Work Phone: [facility] Comment on above: Abnormal nuclear str ess test; Chest pain, unspecified type; Coronary artery disease involving [place] coronary artery of [place] heart with angina pectoris; Primary hypertension; Pure hypercholesterolemia; PVC (premature ventricular contraction); RBBB; Obstructive sleep apnea syndrome; BMI 33.0-33.9,adult; Edema, unspecified type Start: 10-27-2024 End: 10-27-2024 ambulatory [facility] Work Phone: Start: 10-27-2024 End: 10-27-2024 Patient encounter procedure [facility] Work Phone: Start: 10-21-2024 Non-patient / Non-visit [facility] Work Phone: Start: 10-10-2024 Patient encounter procedure [facility] Start: 09-05-2024 End: 09-05-2024 Patient encounter procedure [facility] [facility] Work Phone: Start: 07-30-2024 End: 07-30-2024 ambulatory DO Bro Ball Work Phone: [facility] Work Phone: Start: 07-30-2024 End: 07-30-2024 Patient encounter procedure DO Bro Ball Work Phone: [facility] Work Phone: Start: 07-24-2024 End: 07-24-2024 Admission to same day surgery center DO Bro Ball Work Phone: [facility] Work Phone: Start: 07-24-2024 End: 07-24-2024 ambulatory DO Bro Ball Work Phone: [facility] Work Phone: Start: 07-23-2024 End: 07-23-2024 Patient encounter procedure DO Bro Ball Work Phone: [facility] Work Phone: Start: 07-23-2024 End: 07-23-2024 ambulatory DO Bro Ball Work Phone: [facility] Work Phone: Start: 07-23-2024 Encounter for preprocedural laboratory examination Tory Joseph [facility] Start: 07-22-2024 End: 07-22-2024 Office consultation new/estab patient 80 min Don Joseph DO Work Phone: [facility] Comment on above: Abnormal nuclear str ess test; Chest pain, unspecified type; Bradycardia; RBBB; Primary hypertension; Pure hypercholesterolemia; Obstructive sleep apnea syndrome; BMI 32.0-32.9,adult Start: 07-22-2024 End: 07-22-2024 ambulatory [facility] Amb[facility] Start: 07-18-2024 End: 07-18-2024 ambulatory [facility] Work Phone: Start: 07-18-2024 End: 07-18-2024 Patient encounter procedure [facility] Work Phone: Start: 07-15-2024 Non-patient / Non-visit [facility] Work Phone: Start: 07-14-2024 Non-patient / Non-visit [facility] Work Phone: Start: 07-02-2024 End: 07-02-2024 ambulatory [facility] Work Phone: Start: 07-02-2024 End: 07-02-2024 Patient encounter procedure [facility] Work Phone: Start: 07-01-2024 Non-patient / Non-visit [facility] Work Phone: Start: 06-28-2024 Non-patient / Non-visit [facility] Work Phone: Start: 06-27-2024 Non-patient / Non-visit [facility] Work Phone: Start: 06-27-2024 Non-patient / Non-visit [facility] Work Phone: Start: 06-04-2024 End: 06-04-2024 ambulatory Radha Whitten Facility:[facility] Start: 06-04-2024 End: 06-04-2024 Patient encounter procedure Radha Whitten [facility] Start: 05-20-2024 End: 05-20-2024 ambulatory BRO CHAVEZ Facility:[facility] Start: 05-20-2024 End: 05-20-2024 Patient encounter procedure Aaliyah Hernandez MD Work Phone: [facility] Comment on above: Malignant neoplasm o f prostate (HCC) (Primary Dx) Start: 05-13-2024 End: 05-13-2024 ambulatory BRO CHAVEZ Facility:[facility] Start: 05-13-2024 Non-patient / Non-visit [facility] Work Phone: Start: 04-09-2024 End: 04-09-2024 ambulatory [facility] Work Phone: Start: 04-09-2024 End: 04-09-2024 Patient encounter procedure [facility] Work Phone: Start: 04-01-2024 End: 04-01-2024 ambulatory David Pycraft RT(R) Radiology Ct Scan Comment on above: Radiology CT Start: 04-01-2024 End: 04-01-2024 Patient encounter procedure David Pycraft RT(R) Radiology Ct Scan Comment on above: S/P repair of ventra l hernia (Primary Dx) Start: 04-01-2024 End: 04-01-2024 Subsequent hospital visit by physician [facility] Scan Comment on above: Ventral incisional h jt [K43.2] Start: 03-24-2024 End: 03-24-2024 ambulatory DEBBIECecilio ANDRE Not Available Start: 03-11-2024 End: 03-11-2024 ambulatory VERONICAISAEL HIGH Not Available Start: 02-12-2024 End: 02-12-2024 ambulatory [facility] Work Phone: Start: 02-12-2024 End: 02-12-2024 Patient encounter procedure [facility] Work Phone: Start: 01-30-2024 Non-patient / Non-visit [facility] Work Phone: Start: 12-12-2023 Non-patient / Non-visit [facility] Work Phone: Start: 11-28-2023 End: 11-28-2023 Patient encounter procedure Radha CarmenBrian Granadosmelchor [facility] Start: 11-20-2023 End: 11-20-2023 Patient encounter procedure Aaliyah Raz Hernandez MD Work Phone: [facility] Comment on above: Malignant neoplasm o f prostate (HCC) (Primary Dx) Start: 10-16-2023 End: 10-16-2023 ambulatory Bro Chavez Other [facility] Other Start: 10-16-2023 Telephone encounter Bro Chavez [facility] Start: 10-11-2023 End: 10-11-2023 ambulatory Bro Ball Other [facility] Other Start: 10-11-2023 Patient encounter procedure Bro Chavez [facility] Start: 10-11-2023 Telephone encounter Bro Kathy [facility] Start: 10-04-2023 End: 10-04-2023 ambulatory Bro Ball Other [facility] Other Start: 10-04-2023 Telephone encounter Rbo Ball [facility] Start: 10-02-2023 End: 10-02-2023 ambulatory Bro Ball Other [facility] Other Start: 10-02-2023 Telephone encounter Bro Chavez [facility] Start: 08-22-2023 End: 08-22-2023 ambulatory Bro Ball Other [facility] Other Start: 08-22-2023 Telephone encounter Bro Chvaez [facility] Start: 08-21-2023 End: 08-21-2023 ambulatory Bro Ball Other [facility] Other Start: 08-21-2023 Office outpatient vi sit 15 minutes Bro Ball [facility] Start: 08-21-2023 Telephone encounter Bro Chavez [facility] Start: 08-15-2023 End: 08-15-2023 Patient encounter procedure Radha Whitten [facility] Start: 07-24-2023 End: 07-24-2023 ambulatory Bro Chavez Other [facility] Other Start: 07-24-2023 Telephone encounter Bro Chavez [facility] Start: 07-16-2023 End: 07-16-2023 ambulatory Bro Ball Other [facility] Other Start: 07-16-2023 Telephone encounter Bro Chavez [facility] Start: 07-13-2023 End: 07-13-2023 ambulatory Bro Kathy Other [facility] Other Start: 07-13-2023 Office outpatient vi sit 25 minutes Bro Chavez [facility] Start: 07-13-2023 Telephone encounter Bro Chavez [facility] Start: 05-15-2023 End: 05-15-2023 Patient encounter procedure Aaliyah Hernandez MD Work Phone: Radiation Oncology Comment on above: Malignant neoplasm o f prostate (HCC) (Primary Dx) Start: 04-11-2023 End: 04-11-2023 ambulatory Bro Ball Other [facility] Other Start: 04-11-2023 Office outpatient vi sit 25 minutes Bro Ball [facility] Start: 04-10-2023 End: 04-10-2023 ambulatory Bro Ball Other [facility] Other Start: 04-10-2023 Telephone encounter Bro Ball [facility] Start: 03-15-2023 End: 03-15-2023 ambulatory Bro Chavez Other [facility] Other Start: 03-15-2023 Initial nursing faci lity care/day 35 minutes Bro Chavez [facility] Start: 02-24-2023 End: 02-24-2023 ambulatory Bro Chavez Other [facility] Other Start: 02-24-2023 Telephone encounter Bro SANTOS Aaliyah [facility] Start: 02-23-2023 Evaluation and management of inpatient DONATO BISHOP Facility:[facility] Start: 02-21-2023 End: 02-22-[address] BRO CHAVEZ [facility] Other Start: 02-21-2023 Office outpatient vi sit 15 minutes Bro Chavez [facility] Start: 02-14-2023 End: 02-14-2023 Admission to establishment Pac Warren 2 Work Phone: [facility] Start: 02-14-2023 End: 02-14-2023 ambulatory Pacc Warren 2 Work Phone: Pre Anesthesia Comment on above: Preop examination (P rimary Dx); Primary hypertension; Prostate cancer (HCC); Obesity, Class I, BMI 30-34.9; Obstructive sleep apnea syndrome Start: 02-14-2023 End: 02-14-2023 Preprocedural examination done Pac Warren 2 Work Phone: Pre Anesthesia Start: 02-06-2023 End: 02-06-2023 ambulatory Bro Chavez Other [facility] Other Start: 02-06-2023 Telephone encounter Bro SANTOS Aaliyah [facility] Start: 02-05-2023 End: 02-05-2023 ambulatory Bro Chavez Other [facility] Other Start: 02-05-2023 Office outpatient vi sit 15 minutes Bro Chavez [facility] Start: 01-29-2023 End: 01-29-2023 ambulatory Bro Chavez Other [facility] Other Start: 01-29-2023 Encounter for other preprocedural examination Bro Chavez [facility] Start: 01-29-2023 Office outpatient vi sit 25 minutes Bro Chavez [facility] Start: 01-24-2023 End: 01-24-2023 Patient encounter procedure LUMA CASAS [facility] Start: 01-11-2023 End: 01-11-2023 Patient encounter procedure LUMA CASAS [facility] Start: 12-28-2022 End: 12-28-2022 Patient encounter procedure LUMA CASAS [facility] Start: 12-27-2022 Orders Only Marya mcneil MD Work Phone: General Surgery Start: 12-26-2022 End: 12-26-2022 Patient encounter procedure Donato Bishop MD Work Phone: General Surgery Comment on above: Recurrent left ingui nal hernia (Primary Dx) Start: 12-14-2022 End: 12-14-2022 Patient encounter procedure LUMA CASAS [facility] Start: 12-12-2022 End: 12-12-2022 Patient encounter procedure Aaliyah Hernandez MD Work Phone: Radiation Oncology Comment on above: Malignant neoplasm o f prostate (HCC) (Primary Dx) Start: 12-06-2022 ambulatory BRO CHAVEZ Facilit y:[facility] Start: 12-06-2022 End: 12-06-2022 Subsequent hospital visit by physician [facility] 2 (I-Stat/3t) Work Phone: Radiology Comment on above: Left lower quadrant abdominal swelling, mass and lump [R19.04] Start: 12-04-2022 ambulatory VANDANA HERNANDEZ Facility:[facility] Start: 12-04-2022 End: 12-04-2022 Subsequent hospital visit by physician [facility] (I-Stat/1.5t) Radiology Comment on above: Prostate cancer (HCC ) [C61] Start: 11-30-2022 End: 11-30-2022 Patient encounter procedure LUMA CASAS [facility] Start: 11-23-2022 End: 11-23-2022 Patient encounter procedure LUMA CASAS [facility] Start: 11-16-2022 Patient encounter procedure C[facility] Provider [facility] Department Start: 11-09-2022 End: 11-09-2022 Patient encounter procedure Aaliyah Hernandez MD Work Phone: Radiation Oncology Comment on above: Prostate cancer (HCC ) (Primary Dx); Abdominal mass, left lower quadrant Start: 11-08-2022 End: 11-08-2022 Patient encounter procedure Radha Whitten [facility] Start: 11-06-2022 End: 11-07-2022 ambulatory RADHA Torres Facility:[facility] Start: 10-11-2022 End: 10-12-2022 ambulatory RADHA WHITTEN . Facility:[facility] Start: 10-04-2022 End: 10-04-2022 Patient encounter procedure Radha Whitten [facility] Start: 08-05-2022 End: 08-06-[address] BRO [...] procedure Sushant Freedman Jr. [facility] Procedures Date Procedure Procedure Detail Performing Clinician Start: 07-24-2024 CL [facility] COR Angio DO Loi Chavez Work Phone: Start: 07-22-2024 Ecg routine ecg w/le ast 12 lds w/i&r Don Isabella Joseph DO Work Phone: Start: 10-15-2023 Cardiac catheterization Radha Whitten Start: 02-23-2023 Antibody screen DONATO AWAN Comment on above: Order Comment: Speci men Type: BLOOD SPECIMENOrdering Facility: [facility] Address: [address] [place] [address] Performed By: #### T SCR ####[facility] [id number] [address] [place] Start: 02-23-2023 Inguinal hernia (disorder) Radha Whitten [...] 03-01-2026 DIABETES SCREEN DIABETES SCREEN [facility] Start: 03-01-2026 Diabetes Screening Diabetes Screenin g [facility] Start: 12-09-2025 End: 12-09-2025 Patient encounter procedure 12/09/2025 11:15 AM EST Office Visit Radiation Oncology [address] [place] [address] [place] [address] [place] [address] 1 year follow up Radiation Oncology Comment on above: 1 year follow up Start: 12-03-2025 End: 03-04-2026 Prostate specific Ag [Mass/volume] in Serum or Plasma PROSTATE-SPECIFIC ANTIGEN DIAGNOSTIC Lab Routine Malignant neoplasm of prostate (HCC) Expected: 12/03/2025, Expires: 03/04/2026 [facility] Work Phone: Comment on above: Expected: 12/03/2025 , Expires: 03/04/2026 Start: 12-02-2025 End: 12-02-2025 Patient encounter procedure 12/02/2025 11:00 AM EST Office Visit [facility] [address] [place] [address] PSA Lab [facility] Comment on above: PSA Lab Start: 11-03-2025 End: 11-03-2025 Patient encounter procedure 11/03/2025 9:10 AM EST Office Visit [facility] [address] [facility] [address] [place] [phone] Don Joseph DO [address] [facility] [address] [place] [address] [facility] Start: 04-28-2025 End: 04-28-2025 Patient encounter procedure 04/28/2025 9:30 AM EDT Office Visit [facility] [address] [facility] [address] [place] [phone] Mere Freedman, [employer]LECTROL[employer]IS INVESTIG[employer] [address] [facility] [address] [place] [address] [facility] Start: 04-07-2025 End: 04-07-2025 Patient encounter procedure General Surgery Comment on above: Est Pt: 2 yr follow up, s/p open left anterior groin mesh removal (plug and patch) and TAR 03/0572=586 Est Pt: 2 yr follow up, s/p open left anterior groin mesh removal (plug and patch) and TAR 03/0558=034 done Start: 12-24-2024 End: 12-24-2024 Professional / ancillary services management 12/24/2024 2:00 PM EDT Ancillary Procedure ROBERT CABELLO [address] [place] [address] ROBERT CABELLO Start: 12-22-2024 End: 12-22-2024 Patient encounter procedure 12/22/2024 8:00 AM EDT Office Visit ROBERT [place] [address] [facility] [address] [place] [phone] Abran Tejeda, PhD [address] [place] [address] ROBERT [place] Start: 12-18-2024 End: 12-18-2025 EEG awake or drowsy EEG awake or drowsy Neurology Routine Mild cognitive impairment Expected: 12/18/2024 (Approximate), Expires: 12/18/2025 [facility] Comment on above: Expected: 12/18/2024 (Approximate), Expires: 12/18/2025 Start: 12-18-2024 End: 12-18-2025 Folate [Mass/volume] in Serum or Plasma Folate Lab Routine Mild cognitive impairment Expected: 12/18/2024 (Approximate), Expires: 12/18/2025 [facility] Work Phone: Comment on above: Expected: 12/18/2024 (Approximate), Expires: 12/18/2025 Start: 12-18-2024 End: 12-18-2025 MR Brain WO contrast MR brain wo contrast Imaging Routine Mild cognitive impairment Expected: 12/18/2024, Expires: 12/18/2025 [facility] Comment on above: Expected: 12/18/2024 , Expires: 12/18/2025 Start: 12-18-2024 End: 12-18-2025 Thyrotropin [Units/volume] in Serum or Plasma TSH Lab Routine Mild cognitive impairment Expected: 12/18/2024 (Approximate), Expires: 12/18/2025 [facility] Comment on above: Expected: 12/18/2024 (Approximate), Expires: 12/18/2025 Start: 12-18-2024 End: 12-18-2024 Patient encounter procedure 12/18/2024 1:00 PM EST Office Visit ROBERT CABELLO [address] [place] [phone] Maxine Delgado DO [address] [place], [place] [id number] Arrived ROBERT CABELLO Comment on above: Arrived Start: 12-14-2024 DIABETES SCREEN DIABETES SCREEN [facility] Start: 11-20-2024 End: 02-19-2025 Prostate specific Ag [Mass/volume] in Serum or Plasma PROSTATE-SPECIFIC ANTIGEN DIAGNOSTIC Lab Routine Malignant neoplasm of prostate (HCC) Expected: 11/20/2024, Expires: 02/19/2025 [facility] Work Phone: Comment on above: Expected: 11/20/2024 , Expires: 02/19/2025 Start: 11-19-2024 End: 11-19-2024 Patient encounter procedure 11/19/2024 11:15 AM EST Office Visit Radiation Oncology [address] [place] [address] [place] [address] Aaliyah Hernandez MD [address] [place] [address] 5 Month Follow Up Radiation Oncology Comment on above: 5 Month Follow Up Start: 11-11-2024 End: 11-11-2024 Patient encounter procedure 11/11/2024 11:00 AM EST Office Visit [facility] [address] [place] [address] [place] [address] lab [facility] Comment on above: lab Start: 10-29-2024 End: 10-29-2024 Patient encounter procedure 10/29/2024 10:50 AM EST Office Visit [facility] [address] [place] [phone] Don Joseph DO [address] [place] [address] [facility] Start: 10-15-2024 Advance Directive Discussion Advance Directive Discussion [facility] Start: 07-24-2024 End: 07-24-2024 [facility] Start: 06-15-2024 COVID-19 Vaccine ( season) COVID-19 Vaccine ( season) [facility] Start: 06-15-2024 Influenza vaccination Influenza Vacc ine (#1) [facility] Start: 05-20-2024 End: 08-19-2024 Prostate specific Ag [Mass/volume] in Serum or Plasma PSA/PROSTSPECAG DIAG Lab Routine Malignant neoplasm of prostate (HCC) Expected: 05/20/2024, Expires: 08/19/2024 [facility] Work Phone: Comment on above: Expected: 05/20/2024 , Expires: 08/19/2024 Start: 05-20-2024 End: 05-20-2024 Patient encounter procedure 05/20/2024 1:15 PM EDT Office Visit Radiation Oncology [address] [place] [address] Aaliyah Hernandez MD [address] [place] [address] 5 Month Follow Up Radiation Oncology Comment on above: 5 Month Follow Up Start: 05-13-2024 End: 05-13-2024 Patient encounter procedure 05/13/2024 1:00 PM EDT Office Visit [facility] [address] [address] lab followup [facility] Comment on above: lab followup Start: 11-15-2023 End: 01-15-2024 Prostate specific Ag [Mass/volume] in Serum or Plasma PSA/PROSTSPECAG DIAG Lab Routine Malignant neoplasm of prostate (HCC) Expected: 11/15/2023, Expires: 01/15/2024 [facility] Work Phone: Comment on above: Expected: 11/15/2023 , Expires: 01/15/2024 Start: 10-15-2023 Advance Directive Discussion Advance Directive Discussion [facility] Start: 10-15-2023 Behavioral Health Screening Behavioral Health Screening [facility] Start: 10-15-2023 Depression Assessment Depression Ass essment [facility] Start: 06-15-2023 Covid-19 Vaccine ( season) Covid-19 Vaccine ( season) [facility] Start: 06-15-2023 Covid-19 Vaccine ( season) Covid-19 Vaccine ( season) [facility] Start: 06-15-2023 Influenza vaccination C [facility] Start: 05-11-2023 End: 07-11-2023 Prostate specific Ag [Mass/volume] in Serum or Plasma PSA/PROSTSPECAG DIAG Lab Routine Malignant neoplasm of prostate (HCC) Expected: 05/11/2023, Expires: 07/11/2023 [facility] Work Phone: Comment on above: Expected: 05/11/2023 , Expires: 07/11/2023 Start: 03-30-2023 Adult depression screening assessment DEPRESSION SCREENING [facility] Start: 02-14-2023 End: 04-16-2023 Basic metabolic 2000 panel - Serum or Plasma [facility] Work Phone: Comment on above: Expected: 02/14/2023 , Expires: 04/16/2023 Start: 01-10-2023 End: 03-12-2023 Prostate specific Ag [Mass/volume] in Serum or Plasma PSA/PROSTSPECAG DIAG Lab Routine Prostate cancer ([facility]) Expected: 01/10/2023, Expires: 03/12/2023 [facility] Work Phone: Comment on above: Expected: 01/10/2023 , Expires: 03/12/2023 Start: 11-12-2022 End: 01-12-2023 Prostate specific Ag [Mass/volume] in Serum or Plasma PSA/PROSTSPECAG DIAG Lab Routine Prostate cancer ([facility]) Expected: 11/12/2022, Expires: 01/12/2023 [facility] Work Phone: Comment on above: Expected: 11/12/2022 , Expires: 01/12/2023 Start: 10-15-2022 ADVANCE DIRECTIVE DISCUSSION ADVANCE DIRECTIVE DISCUSSION [facility] Start: 10-15-2022 DEPRESSION ASSESSMENT DEPRESSION ASS ESSMENT [facility] Start: 06-30-2022 End: 08-30-2022 Prostate specific Ag [Mass/volume] in Serum or Plasma PSA/PROSTSPECAG DIAG Lab Routine Prostate cancer ([facility]) Expected: 06/30/2022 (Approximate), Expires: 08/30/2022 [facility] Work Phone: Comment on above: Expected: 06/30/2022 (Approximate), Expires: 08/30/2022 Start: 06-15-2022 Influenza vaccination [facility] Start: 10-15-2021 ADVANCE DIRECTIVE DISCUSSION ADVANCE DIRECTIVE DISCUSSION [facility] Start: 10-15-2021 DEPRESSION ASSESSMENT DEPRESSION ASS ESSMENT [facility] Start: 08-29-2021 COVID-19 VACCINE (4 - Booster for Pfizer series) COVID-19 VACCINE (4 - Booster for Pfizer series) [facility] Start: 08-29-2021 COVID-19 VACCINE (4 - Pfizer series) COVID-19 VACCINE (4 - Pfizer series) [facility] Start: 05-23-2018 Pneumococcal Vaccine : 65+ (2 of 2 - PCV) Pneumococcal Vaccine: 65+ (2 of 2 - PCV) [facility] Start: 07-24-2014 DTaP/Tdap/Td Vaccine s (1 - Tdap) DTaP/Tdap/Td Vaccines (1 - Tdap) [facility] Start: 07-24-2014 Urine microalbumin profile DTaP,Tdap,Td Vaccine (1 - Tdap) [facility] Start: 2012 PNEUMOCOCCAL: 65+ (1 - PCV) PNEUMOCOCCAL: 65+ (1 - PCV) [facility] Start: 2007 RSV Vaccine (1 - 1-d ose 60+ series) RSV Vaccine (1 - 1-dose 60+ series) [facility] Start: 1997 SHINGRIX VACCINE (1 of 2) HOLLEY GRIX VACCINE (1 of 2) [facility] Start: 1992 COLOGUARD (FIT-DNA) COLOGUARD (FIT-D NA) [facility] Start: 1992 Colonoscopy COLONOSCOPY [facility] Start: 1992 COLORECTAL CANCER SCREENING COLORECTAL CANCER SCREENING [facility] Start: [address] COLONOGRAPHY [facility] Start: 1992 FECAL OCCULT BLOOD FECAL OCCULT BLOO D [facility] Start: 1992 SIGMOIDOSCOPY SIGMOIDOSCOPY [facility] Start: 1982 LIPID SCREEN LIPID SCREEN [facility] Start: 1966 SHINGRIX VACCINE (1 of 2) HOLLEY GRIX VACCINE (1 of 2) [facility] Start: 1966 Urine microalbumin profile [facility] Start: 1965 ANNUAL PCP TEAM AWNING HANGER HELPER MOOSE DISEASE VISIT ANNUAL PCP TEAM CHRONIC DISEASE VISIT [facility] Start: 1965 Anxiety Screening Anxiety Screening [facility] Start: 1965 BP CONTROLLED (<130/80) BP CONTROLLE D (<130/80) [facility] Start: 1965 Depression Screening Depression Scre ening [facility] Start: 1965 Diabetes mellitus screening Diabetes Screening [facility] Start: 1965 HEPATITIS C SCREENING HEPATITIS C SC [facility] Start: 1965 Hepatitis C screening Hepatitis C [facility] Start: 1953 PNEUMOCOCCAL: 65+ (1 - PCV) PNEUMOCOCCAL: 65+ (1 - PCV) [facility] Start: 1952 COVID-19 VACCINE (#1) COVID-19 VACCI NE (#1) [facility] Start: 1947 COVID-19 VACCINE (#1) COVID-19 VACCI NE (#1) [facility] Start: 1947 Lipid panel Lipid Panel [facility] Start: 1947 Medicare Annual Well ness Visit Medicare Annual Wellness Visit (AWV) [facility] Cardiac Catheterizat ion - Onbase Scan Cardiac Catheterization - Onbase Scan Cardiac Cath Routine Abnormal nuclear stress test Chest pain, unspecified type Ordered: 07/22/2024 [facility] Service Area Work Phone: Comment on above: Ordered: 07/22/2024 CT Abdomen and Pelvi s WO contrast CT ABD/PEL WO IVCON Radiology Routine Ventral incisional hernia 04/01/2024 1:54 PM EDT [facility] Work Phone: End: 12-09-2023 Mri pelvis w/o & w/contrast material MRI PELVIS WO/W IVCON Radiology Routine Prostate cancer (HCC) Abdominal mass, left lower quadrant 1 Occurrences starting 11/09/2022 until 12/09/2023 [facility] Work Phone: Comment on above: 1 Occurrences starti ng 11/09/2022 until 12/09/2023 End: 12-04-2022 Mri pelvis w/o & w/contrast material [facility] Work Phone: Comment on above: 1 Occurrences starti ng 12/04/2022 until 12/04/2022 Patient Education Know your Meds [facility] Work Phone: Patient referral [facility] Work Phone: [facility] Immunizations Immunization Date Immunization Notes Care Provider Fa sasha 07-18-2024 influenza, high dose seasonal, preservative-free [facility] 04-02-2024 COVID-19 (PFIZER) 12Y and older DO Bro Chavez Work Phone: [facility] 04-02-2024 COVID-19 Comirnaty (Pfizer) Tri-Sucrose 12+ [facility] 04-02-2024 Pneumococcal Conjuga te Vaccine, 20 valent [facility] 09-14-2023 RSV, recombinant, protein subunit RSVpreF, adjuvant reconstitu, 120mcg/0.5mL, PF (Arexvy) Maxine Delgado DO Work Phone: [facility] 07-25-2023 COVID-19 (PFIZER) 12Y and older DO Bro Chavez Work Phone: [facility] 07-25-2023 zoster vaccine recombinant Radha Whitten [facility] 07-13-2023 influenza virus vaccine, unspecified formulation [facility] 07-13-2023 influenza, high dose seasonal, preservative-free Bro Chavez Other [facility] Other 05-07-2023 zoster vaccine recombinant Bro Chavez Other [facility] 10-18-2022 SARS-CoV-2 (COVID-19 ) [id number] Radha Fish [facility] 07-05-2022 influenza virus vaccine, split virus (incl. purified surface antigen) Bro Chavez Other [facility] Other 07-05-2022 influenza virus vaccine, unspecified formulation Radha Fish [facility] 07-05-2022 Influenza, Seasonal, Quadrivalent, Adjuvanted Maxine Delgado DO Work Phone: [facility] 01-30-2022 COVID-19 Comirnaty (Pfizer) Tri-Sucrose 12+ DO Bro Chavez Work Phone: [facility] 01-30-2022 SARS-CoV-2 mRNA (kyurncnflte-uhuq-idkrw se) vaccine Radha Lue [facility] 07-07-2021 influenza, injectabl e, quadrivalent, preservative free Maxine Delgado DO Work Phone: [facility] 07-04-2021 influenza virus vaccine, split virus (incl. purified surface antigen) Bro Chavez Other [facility] Other 07-04-2021 influenza virus vaccine, unspecified formulation [facility] 07-04-2021 SARS-CoV-2 (COVID-19 ) mRNA BNT-162b2 vax Radha Lue [facility] Comment on above: Result Comment: 2022: [id number] 06-15-2021 SARS-CoV-2 (COVID-19 ) Ad26 vaccine, recombinant Sushant Freedman Jr. [facility] 12-13-2020 SARS-CoV-2 (COVID-19 ) Ad26 vaccine, recombinant Sushant Freedman Jr. [facility] 12-07-2020 SARS-CoV-2 (COVID-19 ) mRNA BNT-162b2 vax Radha Lue [facility] Comment on above: Result Comment: 2022: [id number] 11-16-2020 SARS-CoV-2 (COVID-19 ) mRNA BNT-162b2 vax Radha Lue [facility] Comment on above: Result Comment: 2022: [id number] 11-15-2020 SARS-CoV-2 (COVID-19 ) Ad26 vaccine, recombinant Sushant Freedman JrBrian [facility] 07-05-2020 influenza virus vaccine, split virus (incl. purified surface antigen) Bro Chavez Other [facility] Other 07-05-2020 influenza virus vaccine, unspecified formulation [facility] 07-29-2019 influenza virus vaccine, split virus (incl. purified surface antigen) Bro Chavez Other [facility] Other 07-29-2019 influenza virus vaccine, unspecified formulation [facility] 07-30-2018 influenza virus vaccine, split virus (incl. purified surface antigen) Bro Chavez Other [facility] Other 07-30-2018 influenza virus vaccine, unspecified formulation Radha Whitten [facility] 07-25-2017 influenza virus vaccine, split virus (incl. purified surface antigen) Bro Chavez Other [facility] Other 07-25-2017 influenza virus vaccine, unspecified formulation Radha Whitten [facility] 05-23-2017 pneumococcal polysaccharide vaccine, 23 valent Radha Fish [facility] 09-04-2016 influenza virus vaccine, split virus (incl. purified surface antigen) Bro Chavez Other [facility] Other 09-04-2016 influenza virus vaccine, unspecified formulation [facility] 09-04-2016 pneumococcal conjuga te vaccine, 13 valent Bro Chavez Other [facility] 08-12-2015 influenza virus vaccine, split virus (incl. purified surface antigen) Bro Chavez Other [facility] Other 08-12-2015 influenza virus vaccine, unspecified formulation Radha Whitten [facility] 08-12-2015 influenza, seasonal, injectable Maxine Sandy DO Work Phone: [facility] [email or web address] 02-12-2015 pneumococcal polysaccharide vaccine, 23 valent Bro Chavez Other [facility] 07-23-2014 tetanus and diphther ia toxoids, adsorbed, preservative free, for adult use (5 Lf of tetanus toxoid and 2 Lf of diphtheria toxoid) Bro Kathy Other [facility] [facility] tetanus and diphther ia toxoids, adsorbed, preservative free, for adult use (5 Lf of tetanus toxoid and 2 Lf of diphtheria toxoid) Bro Kathy Other [facility] 08-03-2005 tetanus toxoid, adsorbed Maxine Sandy DO Work Phone: [facility] Healthcare Payers Date Payer Category Payer Self-pay 2019 Private Health Insurance [id number] 2019 Unknown MMO MMO MEDICARE SUPPLEMENT [id number] 2019-Present [phone] [address] [place] [address] Indemnity [id number] 2019 Unknown MMO MMO MEDICARE SUPPLEMENT [id number] 2019-Present [phone] [address] [place] [address] Indemnity [id number] 2012 Medicare MEDICARE MEDICAR E A AND B [id number] 2012-Present [phone] [place] [address] Medicare [id number] 2012 Medicare [id number] 1959 Medicare [id number] 1959 Self-pay [id number] 1959 Unknown [id number] 1947 Unknown [id number]. 593 1947 Unknown [id number] 2.16.840.1.817171.3.579.2. 593 1947 Unknown [id number] 2.16.840.1.192948.3.579.2. 593 1947 Unknown [id number] 2.16.840.1.455484.3.579.2. 593 1947 Unknown [id number] 2.16.840.1.665242.3.579.2. 593 1947 Unknown [id number] 2.16.840.1.789033.3.579.2. 1259 1947 Unknown [id number] 2.16.840.1.357370.3.579.2. 1259 1947 Unknown [id number] 2.16.840.1.287983.3.579.2. 1244 1947 Unknown [id number] 2.16.840.1.662855.3.579.2. 1244 1947 Unknown [id number] 2.16.840.1.554095.3.579.2. 727 1947 Unknown [id number] 2.16.840.1.073966.3.579.2. 727 Unknown [id number] 2.16.840.1.852656.3.579.2. 531 Unknown [id number] [id number]. 531 Social History Date Type Detail Facility Start: 03-28-2022 End: 03-11-2024 Tobacco smoking status Never smoked tobacco (finding) [facility] Start: 05-15-2023 End: 03-24-2024 Sex Assigned At Male [facility] Start: 05-10-2021 End: 03-11-2024 Tobacco use and exposure Smokeless tobacco non-user [facility] Start: 03-30-2022 End: 03-24-2024 Alcohol intake Ex-drinker (finding) [facility] Start: 1945 Sex Assigned At Not on file [facility] Start: 03-20-2022 End: 10-29-2024 Exposure to SARS-CoV-2 (event) Not sure [facility] Tobacco smoking status Never [facility] Start: 05-15-2023 End: 03-24-2024 History of Social function [facility] Start: 1945 Sex Assigned At Male [facility] Start: 10-27-2024 Sex Male (finding) [facility] Medical Equipment Procedure Code Equipment Code Equipment Origin al Text Equipment Identifier Dates Mesh Prolene Squ are Flat [id number] Surgical Knit Nonabsorbable Nonreactive - [id number] Start: 02-23-2023 Goals Date Patient Goal Desired Activity /State Functional Status Date Assessment Result Facility 12-10-2024 Functional Status N/A [facility] 06-04-2024 Functional Status N/A [facility] 11-28-2023 Functional Status N/A [facility] 08-15-2023 Functional Status N/A [facility] 03-02-2023 Are you deaf, or do you have serious difficulty hearing No 03/02/2023 2:21 PM EDT Latasha Evans, RN No [facility] 03-02-2023 Are you blind, or do you have serious difficulty seeing, even when wearing glasses No 03/02/2023 2:21 PM EDLatasha Salgado, RN No [facility] 03-02-2023 Do you have serious difficulty walking or climbing stairs No 03/02/2023 2:21 PM EDT Latasha Evans, RN No [facility] 03-02-2023 Do you have difficul ty dressing or bathing No 03/02/2023 2:21 PM EDT Latasha Evans, RN No [facility] 03-02-2023 Because of a physica l, mental, or emotional condition, do you have difficulty doing errands alone such as visiting a physician's office or shopping No 03/02/2023 2:21 PM EDLatasha Salgado, RN No [facility] 01-24-2023 Functional Status N/A [facility] 01-11-2023 Functional Status N/A [facility] 12-28-2022 Functional Status N/A [facility] 12-14-2022 Functional Status N/A [facility] 11-30-2022 Functional Status N/A [facility] 11-23-2022 Functional Status N/A [facility] 11-08-2022 Functional Status N/A [facility] 10-04-2022 Functional Status N/A [facility] 03-28-2022 Functional Status N/A [facility] Mental Status Date Assessment Result Facility 03-02-2023 Because of a physica l, mental, or emotional condition, do you have serious difficulty concentrating, remembering, or making decisions No 03/02/2023 2:21 PM EDT Latasha Evans, RN No [facility] Clinical Notes 03-28-2022 to 12-18-2024 Maxine Delgado, DO - 12/18/2024 1:00 PM Aaliyah Navarro MD - 12/03/2024 11:50 AM KAVITHAWillstuart Joseph, DO - 10/29/2024 10:50 AM ESTPatient InstructionsAttachments Note Date & Type Note Facility 12-18-2024 History of Present illness Narrative Chief Complaint Patient presents with Memory Loss Sleep Apnea Subjective HPI The patient states that he is having issues with memory. His states that the decline has been gradual but after his last surgery 2 years ago his cognition has declined. HE had a pelvic floor reconstruction and was under anesthesia for around 9 hours as they had to do a lot of different things. He has a prior history of concussion 2013 that caused some post-concussive symtoms with a MC for a year after that. He has had some falls that may have also caused concussion. He does not remember the week he was in the hospital and he was in the [facility] for rehab for a bit. He has a hx of prostate Ca and needed lupron and resection. Since that time the memory has been worse. He will forget conversation and re-ask questions. He is independent with ADL's. He has no issues with driving. states no safety concerns and has not gotten lost. He repeats himself He forgets what says. He is sleeping well. He does use his PAP machine. He denies any issues with his machine. He is sleeping about 7 hours a night. He is advent with the CPAP machine. He had heart issues on 06/24/24 and went to the ED. They tried to place stents and were unable. He had a right bundle branch block. He states that he is no longer able to walk like he used to. He still walks on the treadmill as much as tolerated. About 1-2 days a week. NO unsafe behaviors. No hallucinations. No agitation or aggression Past Medical History: Diagnosis Date Adenocarcinoma of prostate (CMS/HCC) Arthritis Gout Hypercholesteremia (CMS/HCC) Hypertension (CMS/HCC) Past Surgical History: Procedure Laterality Date HERNIA REPAIR HERNIA REPAIR OTHER SURGICAL HISTORY 02/23/2023 pelvic floor resection PROSTATE SURGERY Family History Problem Relation Name Age of Onset Cancer Mother Cancer Father Social History Tobacco Use Smoking status: Never Smokeless tobacco: Never Substance Use Topics Alcohol use: Not Currently Allergies: Patient has no known allergies. General: No fever or chills HEENT: No nasal congestion or runny nose Pulmonary: No shortness of breath or cough Cardiovascular: No chest pain or palpitations GI: No nausea or vomiting : No dysuria or hematuria Musculoskeletal: No new aches or pains or muscle weakness Infectious: no recurrent fevers or infections Dermatologic: No rashes or skin lesions Neurologic: No new headaches or dizziness Vitals: 12/18/24 1249 BP: 162/84 Pulse: 88 SpO2: 94% Body mass index is 32.57 kg/m . weight: 227 lb Neurologic exam: General: Normal body habitus, cooperative, pleasant Mental status: Awake, alert to person, place and time. Recent and remote memory are intact. Attention and concentration are normal. Fund of knowledge is appropriate for level of education. HEENT: NC/AT Cranial nerves: CN II: Visual barrera full to confrontation. No loss of vision CN III, IV, : pupils equal round and reactive to light. Extraocular movements intact. No ptosis present. CN V: Facial sensation is normal. CN VII: Full and symmetric facial movement. CN VIII: Hearing is normal CN IX and X: Palate elevates symmetrically. CN XI: Shoulder shrug is normal bilaterally. CN XII: Tongue is midline without atrophy or fasciculation. Speech: Clear and fluent no aphasia or dysarthria Pronator drift: Negative bilateral upper extremity Coordination: Intact, no signs of dysmetria Good finger to nose and rapid alternating movements Sensory: Sensation is intact to light, temperature and vibratory touch throughout four extremities. Motor: LUE 5/5 RUE 5/5 LLE 5/5 RLE 5/5 Tone: Physiologic, no tremor, bradykinesia or rigidity DTR: Bilateral Biceps 2/4 Bilateral BR 2/4 Bilateral Patellar 1/4 No spasticity Gait: Normal to casual gait, wide based due to patient size Romberg's Negative Review and summary of old records: Assessment/Plan Diagnoses and all orders for this visit: Mild cognitive impairment - Folate; Future - TSH; Future - EEG awake or drowsy; Future - MR brain wo contrast; Future MIHIR (obstructive sleep apnea) PLMD (periodic limb movement disorder) Hypersomnia 79 year-old male with a moderate obstructive sleep apnea leading to daytime hypersomnolence and snoring. He is now c/o memory loss that is more consistent with a mild cognitive impairment. He Scored a 23/30 on his MMSE. He is having more issues with short-term forgetfulness. He is aware of this happening however. This worsened after he had a prolonged 9 hour surgery of pelvic reconstruction. He has a history of not tolerating anesthesia very well. I would like to do an MRI of the brain to be sure he did not there were any small strokes or other at that time or continuing. He states he had a normal B12 but is still taking some B12 supplementation. We will try to track down that result. We will go ahead and do the rest of the dementia workup to look into this further. I will hold on medication as functionally he is doing fairly well and I would like the results before we throw him on medication. In the meantime he continues to be compliant with the CPAP machine we are trying to get a download. He states that is stable his daytime hypersomnia stable. Last MMSE today 29/30 so there has been a decline since then,. His PLMD that seems controlled at tis time He has improved his sleep hygiene. . He did have an atypical event of what he thinks was some right-sided severe blurred vision that lasted about an hour. He has had this 3-4 times total in his lifetime. He did have one back in 2010 and had a full stroke workup that was negative. We did order a carotid ultrasound and there was no hemodynamic significant stenois 01/27/2022 . He has not had any new events so we will continue to follow. . . . Plan MMSE 23/30 down from 29/20 EEG to assess brain waves. MRI brain without to assess for structural lesions or strokes that could cause memory loss. Labwork to assess for reversible causes of memory loss. Brain exercises. Cardiovascular exercise. Mediterranean diet. 8 hours of sleep. 12 hour fasting through the night if able. Neuropsych testing Obtain compliance download wear CPAP liners cont with proper sleep hygiene and minimizing naps Continue the use of the CPAP machine every night and whenever sleeping The patient was counseled on proper sleep hygiene and adequate hours of sleep. Proper diet exercise offered med for drooling and he declines The patient was councelled on the risks of stroke, LA, and sudden with MIHIR, along with the need for compliance with CPAP/BiPAP treatment. This was discussed with the patient, all questions were answered and they agreed with the treatment plan. The patient is to call with any worsening of the condition or new symptoms. Return to clinic: one year documented in this encounter [facility] 12-10-2024 Hospital Discharge instructions Patient Education 12/10/2024 09:21:53 Artificial Urinary Sphincter Placement Artificial Urinary Sphincter [...] including vitamins, herbs, eye drops, creams, and qlle-qwp-txmzwpm medicines. Any problems you or family members [...] provider tells you to take them. Taking ckam-aap-vmkzprk medicines, vitamins, herbs, and supplements. Surgery safety [...] provider. Document Revised: 05/06/2021 Document Reviewed: 05/06/2021 [employer] Patient Education 2023 [employer]. Follow Up Care 06/04/2024 09:26:08 With:Fish WHARTON, ALANNA Hahn, URO Address: When: Unknown [facility] 12-10-2024 Note Patient Education Urology Artificial Urinary Sphincter Placement An artificial urinary sphincter (AUS) is a device that is used to treat urinary incontinence. The device helps you control your urine and prevents urine leaks. An AUS is made up of three parts: ??? A fluid-filled cuff. ??? A fluid-filled balloon. ??? A pump. During the procedure to place an AUS, the cuff is placed around the part of the body that drains urine from the bladder (urethra), the balloon is placed in the abdomen, and the pump is placed in the scrotum (for males) or outside of the vagina (for females). Tell a health care provider about: ??? Any allergies you have. ??? All medicines you are taking, including vitamins, herbs, eye drops, creams, and ruam-efl-ivtrrsf medicines. ??? Any problems you or family members have had with anesthetic medicines. ??? Any blood disorders you have. ??? Any surgeries you have had. ??? Any medical conditions you have. ??? Whether you are or may be . What are the risks? Generally, this is a safe procedure. However, problems may occur, including: ??? Infection. ??? Bleeding. ??? Allergic reactions to medicines or dyes. ??? Damage to nearby structures or organs. ??? Damage to the area where the balloon is placed (erosion). ??? Failure of the artificial sphincter to work. ??? Need for additional surgeries. ??? Inability to drain the bladder (urinary retention). What happens before the procedure? Eating and drinking restrictions Follow instructions from your health care provider about eating and drinking, which may include: ??? 8 hours before the procedure ? stop eating heavy meals or foods, such as meat, fried foods, or fatty foods. ??? 6 hours before the procedure ? stop eating light meals or foods, such as toast or cereal. ??? 6 hours before the procedure ? stop drinking milk or drinks that contain milk. ??? 2 hours before the procedure ? stop drinking clear liquids. Medicines Ask your health care provider about: ??? Changing or stopping your regular medicines. This is especially important if you are taking diabetes medicines or blood thinners. ??? Taking medicines such as aspirin and ibuprofen. These medicines can thin your blood. Do not take these medicines unless your health care provider tells you to take them. ??? Taking mdai-lxh-oimepof medicines, vitamins, herbs, and supplements. Surgery safety Ask your health care provider: ??? How your surgery site will be marked. ??? What steps will be taken to help prevent infection. These steps may include: ? Removing hair at the surgery site. ? Washing skin with a germ-killing soap. ? Taking antibiotic medicine. General instructions ??? If you were asked to do a bowel prep before the procedure, follow instructions from your health care provider. ??? Keep all visits with your health care provider. You may have tests done, including urine tests and imaging tests. ??? Plan to have a responsible adult take you home from the hospital or clinic. ??? Plan to have a responsible adult care for you for the time you are told after you leave the hospital or clinic. This is important. What happens during the procedure? An IV will be inserted into one of your veins. ??? You will be given one or more of the following: ? A medicine to help you relax (sedative). ? A medicine to make you fall asleep (general anesthetic). ??? A small, thin tube (catheter) will be placed into your urethra. The tube will help to drain urine during and after the procedure. ??? An incision will be made: ? In your scrotum if you are a male. ? In the area between your vagina and anus (perineum) if you are a female. ??? The cuff will be placed around your urethra. ??? An incision will be made in your abdomen. ??? The balloon will be placed in your abdomen and filled with saline. ??? The pump will be put in place. ? If you are a male, the pump will be placed inside your scrotum. ? If you are a female, the pump will be placed between the folds of skin around the opening of your vagina (labia). ??? The cuff, balloon, and pump will be connected with tubes. ??? The AUS will be tested to make sure it works properly. ??? The incisions will be closed with stitches (sutures). ??? A bandage (dressing) will be placed over the incisions. The procedure may vary among health care providers and hospitals. What happens after the procedure? Your blood pressure, heart rate, breathing rate, and blood oxygen level will be monitored until you leave the hospital or clinic. ??? A catheter will be left in your urethra to help drain your bladder during recovery. The catheter may be removed before you leave the hospital. If you have problems draining urine after the procedure, it may be left in until you can drain urine on your own. ??? You will be given medicine to help with pain a (more content not included)... [facility] 12-03-2024 Note HNO ID: [id number] Author: Aaliyah HERNANDEZ MD Service: ? Author Type: Physician Type: Progress Notes Filed: 12/11/2024 11:08 Note Text: Radiation Oncology - Follow Up [...] TIME: 52 days. INTERVAL HISTORY: Overall doing fairly well. Did develop some angina underwent cardiac catheter procedure in July. Has moderate bleeding managed from that point. Bladder function stable. Still with incontinence wears pads daily. No hematuria or dysuria. 05/20/24:Patient states he is doing fairly well. No [...] fatigue. PSA HISTORY: PSA (ng/mL) Date Value 11/11/2024 <0.02 05/13/2024 <0.02 11/13/2023 <0.02 05/08/2023 <0.02 09/15/2021 <0.1 08/03/2021 <0.03 Initial post prostatectomy PSA 0.23 on 07/17/2018. Patient's PSA continued to rise: 0.48 on 04/22/2019 0.87 on 09/29/2019 1.43 on 03/19/2020 1.62 on 07/19/2020 2.05 on 09/27/2020 ALLERGIES No Known Allergies furosemide (LASIX) 20 mg tablet Take 20 mg by mouth. isosorbide mononitrate ER (IMDUR) 30 mg 24 hr tablet Take 30 mg by mouth. nitroglycerin sublingual (NITROQUICK) 0.4 mg SL tablet Dissolve 0.4 mg under the tongue. spironolactone (ALDACTONE) 25 mg tablet Take 12.5 mg by mouth. valsartan (DIOVAN) 40 mg tablet Take 40 mg by mouth. carvedilol (COREG) 12.5 mg tablet 6.25 mg twice daily with meals. aspirin, enteric coated (ASPIRIN, ENTERIC COATED) 81 mg EC tablet Take 81 mg by mouth once daily. atorvastat (more content not included)... [facility] 12-03-2024 History of Present illness Narrative Radiation Oncology - Follow Up Note PATIENT NAME: Yoni Ramirez PATIENT DIAGNOSIS: Prostate adenocarcinoma, initial PSA 7.4, biopsy Woodland score 4 + 3 = 7 (grade [...] TIME: 52 days. INTERVAL HISTORY: Overall doing fairly well. Did develop some angina underwent cardiac catheter procedure in July. Has moderate bleeding managed from that point. Bladder function stable. Still with incontinence wears pads daily. No hematuria or dysuria. 05/20/24:Patient states he is doing fairly well. No [...] fatigue. PSA HISTORY: PSA (ng/mL) Date Value 11/11/2024 <0.02 05/13/2024 <0.02 11/13/2023 <0.02 05/08/2023 <0.02 09/15/2021 <0.1 08/03/2021 <0.03 Initial post prostatectomy PSA 0.23 on 07/17/2018. Patient's PSA continued to rise: 0.48 on 04/22/2019 0.87 on 09/29/2019 1.43 on 03/19/2020 1.62 on 07/19/2020 2.05 on 09/27/2020 ALLERGIES No Known Allergies furosemide (LASIX) 20 mg tablet Take 20 mg by mouth. isosorbide mononitrate ER (IMDUR) 30 mg 24 hr tablet Take 30 mg by mouth. nitroglycerin sublingual (NITROQUICK) 0.4 mg SL tablet Dissolve 0.4 mg under the tongue. spironolactone (ALDACTONE) 25 mg tablet Take 12.5 mg by mouth. valsartan (DIOVAN) 40 mg tablet Take 40 mg by mouth. carvedilol (COREG) 12.5 mg tablet 6.25 mg twice daily with meals. aspirin, enteric coated (ASPIRIN, ENTERIC COATED) 81 mg EC tablet Take 81 mg by mouth once daily. atorvastatin (LIPITOR) 20 mg tablet Take 20 mg by mouth once daily. allopurinol (ZYLOPRIM) 300 mg tablet Take 300 mg by mouth once daily. GEMTESA 75 mg tablet lisinopril (ZESTRIL) 10 mg tablet q 24 HR. ketoconazole (NIZORAL) 2 % cream Apply to affected area twice daily. (Patient taking differently: Apply to affected area two times a day. As needed) amLODIPine (NORVASC) 5 mg tablet Take by mouth two times a day. lisinopril-hydroCHLOROthiazide (PRINZIDE, ZESTORETIC) 20-25 mg per tablet Take 1 tablet by mouth once daily. REVIEW OF SYSTEMS: D/N = 4/-2 Hematuria: none Dysuria: none Incontinence: 2 pads per day Urgency: mild Catheter use: none Medications to aid urination: no - Total AUA Score: na Bowel movement frequency: 1/day Bowel movement quality: variable: . Blood per rectum: none Androgen deprivation: Eligard 10/21/2020 x1 PHYSICAL EXAM: 12/03/24 1139 BP: 159/85 Pulse: (!) 56 Resp: 16 Temp: 36.6 C (97.8 F) SpO2: 97% Weight: 107.6 kg (237 lb 3.4 oz) KPS: 100 General appearance: Alert and [...] prostate bed and pelvic radiation completed 07/14/2021. Prostate cancer. Doing well. PSA remains undetectable. No significant postradiation related issues. Recommend follow-up in 1 year with repeat PSA. Signed by: Aaliyah Hernandez MD cc: Bro Chavez ([facility]) [address] [place] [address] Dr. Whitten documented in this encounter [facility] 10-29-2024 History of Present illness Narrative Subjective [...] In Cardiology 3. Coronary artery disease involving [place] coronary artery of [place] heart, unspecified whether angina present 4. Primary hypertension 5. Pure hypercholesterolemia 6. PVC (premature ventricular contraction) 7. RBBB 8. Obstructive sleep apnea syndrome 9. BMI 33.0-33.9,adult 10. Edema, unspecified type Scribe Attestation By signing my name below, I, Caleb Fernandez LPN attest that this documentation has been prepared [...] discussion and plan. documented in this encounter [facility] Work Phone: 10-29-2024 Instructions Najma Tuttle [...] be sent through Care Everywhere.Heart Healthy Diet (Jamaican)documented in this encounter [facility] Work Phone: 07-30-2024 Evaluation note Diagnosis [...] ventricular contraction) acute October 27, 2024 3:03pm [facility] Work Phone: 1(449) 267-769010-10-2024 [facility] of Present illness Narrative* Don Joseph, DO - 07/22/2024 11:10 AM EDT Cardiology Consultation- New Consult Reason for referral: Chest pain HPI: Yoni Ramirez is a 79 y.o. male seen in interventional cardiology consultation at request of Dr. Mao Chavez and [facility] advance nurse practitioner after patient was seen in the emergencyroom for second episode of chest heaviness and burning. He has had 2 episodes described as above lasting several minutes. He had stress imaging performed at [facility] revealing inferior perfusion defect with preserved left [...] bleeding disorder. Case was originally discussed with [facility] advanced nurse practitioner in the ER on the evening he was in the ER we had no beds at [facility]; and because of negative troponins at that [...] surgical history that includes Hernia repair (Left, 2015); Umbilical hernia repair; Prostatectomy (06/20/2018); and Colonoscopy. [...] my direction and personally dictated by me. Ihave reviewed the chart and agree that the record accurately reflects my personal performance of the history, physical exam, discussion and plan. documented in this [facility] Work Phone: 1(763) 663-392110-08-2024 Instructions* Patient Instructions* Najma Tuttle LPN - [...] sent through Care Everywhere. * DASH Diet (Jamaican) documented in this [facility] Work Phone: 1(407) 425-560708-21-2024 Hospital Discharge instructions Patient Education 06/04/2024 09:16:57 [...] including vitamins, herbs, eye drops, creams, and ygwe-yfa-pytmgyc medicines. Any problems you or family members [...] provider tells you to take them. Taking iejz-dtx-ekktluz medicines, vitamins, herbs, and supplements. Surgery safety [...] provider. Document Revised: 05/06/2021 Document Reviewed: 05/06/2021 [employer] Patient Education 2022 Global Education Learning. Follow Up Care 11/28/2023 11:10:53 With:Fish WHARTON, ALANNA Hahn, URO Address: When: Unknown [facility] 08-21-2024 NotePatient Education Urology Artificial Urinary Sphincter [...] including vitamins, herbs, eye drops, creams, and hnqt-vys-wczopgl medicines. ? Any problems you or family [...] tells you to take them. ? Taking lhxi-oab-jrxfzcx medicines, vitamins, herbs, and supplements. Surgery safety [...] 4?6 weeks after the (more content not included)...[facility]08-06-2024 History of Present illness Narrative* Aaliyah Hernandez [...] D/N = 4/-2 Hematuria: none Dysuria: none Incontinence: 2 pads [...] by: Aaliyah Hernandez MD cc: Bro Chavez ([facility]) [address] [place] [address] Dr. Whitten documented in this encounterWright-Patterson [facility] Center08-06-2024 NoteHNO ID: [id number] Author: Aaliyah HERNANDEZ MD Service: ? Author [...] Hematuria: none Dysuria: none (more content not included)...[facility]06-18-2024 NoteHNO ID: [id number] Author: DAVID PORTILLO RT(Massiel) Service: ? Author [...] PATIENT PRESENTS WITH AN IMPLANTABLE OR ATTACHED PIANO MECHANIC: No RADIOLOGY DEPARTMENT: CT; Exam(s) Completed: Abdomen/Pelvis PERIPHERAL IV DATA: Not applicable SIGNED BY: RT Haylee(Massiel) April 01, 2024 11:36 [facility]06-18-2024 History of Present illness Narrative* David Portillo [...] PATIENT PRESENTS WITH AN IMPLANTABLE OR ATTACHED PIANO MECHANIC: No RADIOLOGY DEPARTMENT: CT; Exam(s) Completed: Abdomen/Pelvis PERIPHERAL IV DATA: Not applicable SIGNED BY: RT Haylee(R) April 01, 2024 11:36 AM documented in this encounterWright-Patterson Medical Center06-18-2024 Nurse Note* Kristy Monreal OCCA [...] Bowels: regular Wound: Temperature: No Drains: No [facility]18[facility] Nurse Note* Kristy Monreal OCCA [...] Temperature: No Drains: No documented in this encounterWright-Patterson Medical Center06-18-2024 History of Present illness Narrative* Donato Bishop MD - 04/01/2024 10:00 AM EDT [facility] - Follow Up Visit [...] Bishop MD 04/01/24, 10:35 AM General Surgery [facility] Medical Decision Making: Problems: Low: Stable chronic illness Data: Unique test result(s) reviewed: 1 Independent interpretation of test from other physician/QHCP Risk: Low: Low risk from testing/treatment Medical Decision Making Level: 3 - Low documented in this encounterWright-Patterson Medical Center06-18-2024 NoteHNO ID: [id number] Author: DONATO BISHOP MD Service: ? Author Type: Physician Type: Progress Notes Filed: 04/07/2024 16:41 Note Text: [facility] - Follow Up Visit [...] Bishop MD 04/01/24, 10:35 AM General Surgery [facility] Medical Decision Making: Problems: Low: Stable chronic illness Data: Unique test result(s) reviewed: 1 Independent interpretation of test from other physician/QHCP Risk: Low: Low risk from testing/treatment Medical Decision Making Level: 3 - [facility] Hospital Discharge instructions Patient Education 11/28/2023 [...] provider. Document Revised: 02/09/2022 Document Reviewed: 02/09/2022 [employer] Patient Education 2022 Global Education Learning. Follow Up Care 08/15/2023 09:39:21 With:Fish WHARTON, ALANNA Hahn, URO Address: [address] [place] [address] [phone] When: Unknown Comments:6 months [facility] 02-06-2024 Nurse Note* Yamilex Golden LPN - 11/20/2023 1:18 PM EST Patient c/o continued urinary incontinence. Started Gemtesa approximately 3 months ago with little improvement. documented in this encounterWright-Patterson Medical Center02-06-2024 History of Present illness Narrative* Aaliyah Hernandez [...] Aaliyah Hernandez MD cc: Bro Chavez (Aj) [address] [place] [address] Dr. Whitten documented in this encounterWright-Patterson Medical Center12-28-2023 Evaluation note* Encounter Date Diagnosis [...] use, the patient reduces the risk for LA, CVA, HTN, cardiac dysrhythmias and sudden cardiac [...] from previous results Blood loss from surgery? [facility] Other 12-19-2023 Evaluation note* Encounter Date Diagnosis Assessment Notes Treatment Notes Treatment Clinical Notes Sep, Anemia (ICD-10 - D64.9) [facility] Other 11-08-2023 Evaluation note* Encounter Date Diagnosis Assessment Notes Treatment Notes Treatment Clinical Notes Aug, COVID-19 (ICD-10 - U07.1) [facility] Other 11-07-2023 Evaluation note* Encounter Date Diagnosis [...] continue exercise to achieve/maintain a normal BMI. [facility] Other 11-01-2023 Hospital Discharge instructions Patient Education [...] provider. Document Revised: 02/09/2022 Document Reviewed: 02/09/2022 [employer] Patient Education 2022 Global Education Learning. Follow Up Care 06/01/2023 13:07:42 With:Fish WHARTON, ALANNA Hahn, URO Address: When:Within 3 Month(s) [facility] 09-29-2023 Evaluation note* Encounter Date Diagnosis Assessment [...] use, the patient reduces the risk for LA, CVA, HTN, cardiac dysrhythmias and sudden cardiac [...] High risk medication use (ICD-10 - Z79.899) [facility] Other 08-01-2023 History of Present illness Narrative* [...] Androgen deprivation: Eligard 10/21/2020 x1 PHYSICAL EXAM: 05/15/23 1324 BP: [...] ASSESSMENT/PLAN: Prostate adenocarcinoma, initial PSA 7.4, biopsy Woodland score 4 + 3 = 7 (grade [...] Aaliyah Hernandez MD cc: Bro Chavez (Aj) [address] [place] [address] Dr. Whitten documented in this encounterWright-Patterson Medical Center06-28-2023 Evaluation note* Encounter Date Diagnosis [...] use, the patient reduces the risk for LA, CVA, HTN, cardiac dysrhythmias and sudden cardiac [...] s/p ADT No ongoing treatment Serial PSA [facility] Other 06-01-2023 Evaluation note* Encounter Date Diagnosis [...] use, the patient reduces the risk for LA, CVA, HTN, cardiac dysrhythmias and sudden cardiac [...] repair. Ventral hernia repair No complications noted. [facility] Other 05-16-2023 NoteHNO ID: [id number] Author: Michelle Bryant MD Service: General Surgery Author Type: Resident Type: Progress Notes Filed: 02/27/2023 10:01 AM Note Text: General Surgery Progress Note Service Date: 02/27/2023 Assessment and Plan: Yoni Raimrez is a 77 year old male with [...] MD For team paging 6AM-6PM during weekdays: [phone] for [facility] Team For team paging after 6PM or on weekend / holidays: [phone] for General Surgery Subjective: Acute events overnight: [...] input(s): APTT, PT, INR in the last 06257 hours. Intake and Output: Date 02/26/23699 - 02/27/2365802/27/23699 - 02/28/23 0659 Shift 9976-3588 8263-5697 2797-5286 24 Hour Total 9415-7904 2002-6269 3072-1861 24 Hour Total INTAKE PO 360 360 720 PO 360 360 720 IV 300 300 Volume (mL) (magnesium sulfate iv piggyback in sterile water 2 g 50 mL) 50 50 Volume (mL) (potassium phosphate 30 mmol in NaCl 0.9% 250 mL) 250 250 Shift Total 788 830 2640 OUTPUT Urine 1000 1900 2900 Urine Incontinence/Not Saved 3 x 3 x Urine Not Saved. 3 x 3 x Output ( External Collection Device 02/25/23 0000) 1000 1900 2900 Tubes 0 50 20 70 Drain/Tube Output (Drain/Tube 02/23/23 2120 Chip Spivey Right Upper Quadrant Abdomen Drain #1) 0 30 20 50 Drain/Tube Output (Drain/Tube 02/23/23 2122 Chip Spivey Left Upper Quadrant Abdomen) 0 [...] (ROXICODONE) 2.5-5 mg ORAL q 4 H PRNFState Reform School for BoysFbuoyqnr35-01-6279 NoteHNO ID: [id number] Author: Perez Salvador MD Service: General Surgery [...] Agrawal MD General Surgery, PGY-1 Personal Pager/Phone: [phone] Service Pager: [phone] (LAITH Lowery) For weekday evenings (6PM-6AM) or weekends/holidays, please page [phone] ([facility] Gen Surg weekends/nights)[facility] [id number] History of Past illness Narrative* Problem Noted Date Diagnosed Date Resolved Date Hypophosphataemia 02/26/2023 03/02/2023 Hypokalemia 02/26/2023 03/02/2023 Post-op pain 02/26/2023 03/02/2023 Inguinal hernia of left side without obstruction or gangrene 02/24/2023 03/02/2023 documented as of this encounter (statuses as of 05/18/2023) [facility]05-[facility] History of Past illness Narrative* Problem Noted Date Diagnosed Date Resolved Date Hypophosphataemia 02/26/2023 03/02/2023 Hypokalemia 02/26/2023 03/02/2023 Post-op pain 02/26/2023 03/02/2023 Inguinal hernia of left side without obstruction or gangrene 02/24/2023 03/02/2023 documented as of this encounter (statuses as of 11/28/2023) [facility]05-[facility] NoteHNO ID: [id number] Author: Carolina Lorenz MD Service: General Surgery [...] MD For team paging 6AM-6PM during weekdays: [phone] for [facility] Team For team paging after 6PM or on weekend / holidays: [phone] for General Surgery Subjective: Acute events overnight: [...] input(s): APTT, PT, INR in the last 28902 hours. Intake and Output: Date 02/25/23 07 - 02/26/23 0659 02/26/23 0700 - 02/27/23 0659 Shift 7525-7244 8047-2042 4410-6430 24 Hour Total 3350-9825 5564-0604 0785-7145 24 Hour Total INTAKE PO 340 120 460 PO 340 120 460 IV 559 559 Volume (mL) (lactated ringers iv infusion) 559 559 Shift Total 340 383 416 5282 OUTPUT Urine 0626 147 0083 2750 Output ( External Collection Device 02/25/23 0000) 9107 303 8491 2750 Tubes 40 55 20 115 Drain/Tube Output (Drain/Tube 02/23/232119 Chip Spivey Right Upper Quadrant Abdomen Drain #1) 20 30 0 50 Drain/Tube Output (Drain/Tube 02/23/232121 Chip Spivey Left Upper Quadrant Abdomen) 20 25 20 65 # of BMs Number of BMs 0 x 0 x 0 x Shift Total 3521 341 0202 2865 Weight (kg) Current Medications: Current Facility-Administered [...] NaCl 0.9% 250 mL 30 mmol INTRAVENOUS ONCEFramingham Union HospitalEqcinurz16-67-9379 NoteHNO ID: [id number] Author: Chris Avendano MD Service: General Surgery [...] Resident For team paging 6AM-6PM during weekdays: [phone] for [facility] Team For team paging after 6PM or on weekend / holidays: [phone] for General Surgery Subjective: Acute events overnight: [...] input(s): APTT, PT, INR in the last 20589 hours. Intake and Output: Date 02/24/23699 - 02/25/2365802/25/23699 - 02/26/23 0659 Shift 2760-0951 6490-1052 8503-0841 24 Hour Total 9951-4980 2193-7307 1465-0680 24 Hour Total INTAKE PO 240 450 250 940 PO 240 450 250 940 IV 1318 778 1612 Volume (mL) (ceFAZolin iv piggyback 2 g in D5W (iso-osmotic) 100 mL (ANCEF)) 100 100 Volume (mL) (lactated ringers iv infusion) 5309 480 6533 Shift Total 240 2017 795 3053 OUTPUT Urine 085 819 4494 3025 Void (ml) 250 250 Output ([REMOVED] Indwelling Urinary Catheter 02/23/23 2325 Assessment Spear 02/25/23 0012) 507 099 0726 2575 Output ( External Collection Device 02/25/23 0000) 200 200 Emesis 0 0 Emesis (ml) 0 0 Tubes 130 40 70 240 Drain/Tube Output (Drain/Tube 02/23/230 Chip Spivey Right Upper Quadrant Abdomen Drain #1) 75 20 30 125 Drain/Tube Output (Drain/Tube 02/23/232121 Chip Spivey Left Upper Quadrant Abdomen) 55 20 40 115 # of BMs Number of BMs 0 x 0 x 1 x 1 x Shift Total 606 446 4023 3265 Weight (kg) Current Medications: Current Facility-Administered [...] mg/mL) - 200 mL PERIPHERAL NERVE CATHETER CONTINUOUSFramingham Union HospitalFonahmot06-64-6801 NoteHNO ID: [id number] Author: Chris Avendano MD Service: General Surgery [...] Lorenz MD, PGY-1 General Surgery Resident Pager [phone] For after hours issues, please call the on-call pager For team paging 6AM-6PM during weekdays: [phone] for [facility] [employer] Team For team paging after 6PM or on weekend / holidays: [phone] for General Surgery Subjective: Acute events overnight: [...] input(s): APTT, PT, INR in the last 83554 hours. Intake and Output: Date 02/23/23699 - 02/24/2365802/24/23699 - 02/25/23 0659 Shift 7040-3059 8851-1680 3239-8350 24 Hour Total 4328-3100 5968-4375 8138-8407 24 Hour Total INTAKE PO 60 60 [...] mL (ANCEF) 2 g INTRAVENOUS q 8 [facility]05-13-2023 NoteHNO ID: [id number] Author: Perez Salvador MD Service: General Surgery Author Type: Resident Type: Plan of Care Filed: 02/24/2023 4:59 AM Note Text: GENERAL SURGERY POST-OPERATIVE CHECK NOTE PATIENT NAME: Yoni Ramirez AGE: [age] year old : 1945 SEX: male ASSESSMENT AND PLAN: 77 year old male POD0 s/p Attempted jbdk-bzo-ktbvc repair of L femoral hernia, Excision of [...] Agrawal MD General Surgery, PGY-1 Personal Pager/Phone: [phone] Service Pager: [phone] ([facility]) For weekday evenings (6PM-6AM) or weekends/holidays, please page [phone] ([facility] Gen Surg weekends/nights) SUBJECTIVE: Patient feels [...] and intact without strike-through LINES/TUBES: FERNANDO X2 [facility]05-13-2023 NoteHNO ID: [id number] Author: Tristan Solorio MD Service: Anesthesiology Author Type: Anesthesiologist Type: Anesthesia Procedure Notes Filed: 02/23/2023 11:18 PM Note Text: ANESTHESIOLOGY PROCEDURE NOTE Peripheral Nerve Block General Information Procedure Start Time/Medication Administration: 02/23/2023 10:41 PM Procedure End time: 02/23/2023 11:07 PM Patient location during procedure: OR Timeout Performed Pre-procedure: timeout performed Consent Obtained: Yes 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, 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 Reason for block: [...] February 23, 2023 TIME: 11:15 PM CSN: [id number] NoteHNO ID: [id number] Author: Tristan Solorio MD Service: Anesthesiology Author Type: Anesthesiologist Type: Anesthesia Procedure Notes Filed: 02/23/2023 11:15 PM Note Text: ANESTHESIOLOGY PROCEDURE NOTE Peripheral Nerve Block General Information Procedure Start Time/Medication Administration: 02/23/2023 10:41 PM Procedure End time: 02/23/2023 11:07 PM Patient location during procedure: OR Timeout Performed Pre-procedure: timeout performed Consent Obtained: Yes 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 See nursing for vitals. SIGNATURE: Tristna Solorio MD PATIENT NAME: Yoni Ramirez DATE: February 23, 2023 TIME: 11:13 PM CSN: [id number] NoteHNO ID: [id number] Author: Stefanie Hitchcock APRN.INTERACTIVE MULTIMEDIA DESIGNER Service: Anesthesiology Author Type: Nurse It Security Consulting Director Type: Anesthesia Procedure Notes Filed: 02/23/2023 5:16 PM Note Text: ANESTHESIOLOGY PROCEDURE NOTE PIV General Information Procedure Start Time/Medication Administration: 02/23/2023 5:05 PM Patient Location: OR Staffing INTERACTIVE MULTIMEDIA DESIGNER: Stefanie Hitchocck APRN.INTERACTIVE MULTIMEDIA DESIGNER Performed by: INTERACTIVE MULTIMEDIA DESIGNER Preparation Sterility Preparation: hand hygiene performed prior to procedure, surgical cap used, mask used Site Prep: chlorhexidine Procedure Details Indication: need for IV access Needle Size/Type: 18 gauge angiocath Orientation: Left Location: Hand Imaging Guidance Used: No SIGNATURE: Stefanie Hitchcock APRN.CRNA PATIENT NAME: Yoni Ramirez DATE: February 23, 2023 TIME: 5:15 PM CSN: [id number] NoteHNO ID: [id number] Author: Stefanie Hitchcock APRN.INTERACTIVE MULTIMEDIA DESIGNER Service: Anesthesiology Author Type: Nurse It Security Consulting Director Type: Anesthesia Procedure Notes Filed: 02/23/2023 3:13 PM Note Text: ANESTHESIOLOGY PROCEDURE NOTE Airway General Information Procedure Start Time/Medication Administration: 02/23/2023 2:44 PM Patient location during procedure: OR Timeout Performed Pre-procedure: timeout performed Consent Obtained: Yes Patient identity confirmed: arm band, 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 and patient Staffing Anesthesiologist: Faisal Kim MD INTERACTIVE MULTIMEDIA DESIGNER: Stefanie Hitchcock APRN.INTERACTIVE MULTIMEDIA DESIGNER Performed by: INTERACTIVE MULTIMEDIA DESIGNER Indications and Patient Condition Indications for airway [...] 1 Airway not difficult SIGNATURE: Stefanie Hitchcock APRN.INTERACTIVE MULTIMEDIA DESIGNER PATIENT NAME: Yoni Ramirez DATE: February 23, 2023 TIME: 3:11 PM CSN: [id number] Evaluation note* Encounter Date Diagnosis Assessment Notes Treatment Notes Treatment Clinical Notes February, Acute pain of right knee (ICD-10 - M25.561) Ice, elevate and rest. No obvious s/s septic joint or inflammatory arthritis Check ESR, CRP and CBC and if normal, can't see any reason he can't proceed w/ surgery this February, Swelling of right knee joint (ICD-10 - M25.461) [facility] Other 05-03-2023 History and physical note* Nichole Humphrey APRN.[employer] - 02/14/2023 1:40 PM EDT HISTORY AND [...] slowly grown since. States has discomfort today / PAST MEDICAL HISTORY Diagnosis Date Arthritis BPH [...] fevers. Neuro: No history of TIA's, stroke, BRASS CUTTER tumor, impaired sensorium, hemiplegia, paraplegia or quadraplegia. [...] Ramirez DATE: 02/14/2023 TIME: documented in this encounterWright-Patterson Medical Center05-03-2023 Instructions* Patient Instructions* Nichole Humphrey APRN.CNP - 02/14/2023 1:31 PM EDT PATIENT PREOPERATIVE INSTRUCTIONS Donato Bishop MD has scheduled you for your procedure at this surgery center: [facility]: [phone] --[address] [address]. Please check in on thet floor at registration desk 6. Please read [...] Procedures: - YOU MUST HAVE A RESPONSIBLE JAIL KEEPER TAKE YOU HOME. A SALES REVIEW CLERK OR TILE PROFESSIONAL CANNOT BE MADE A RESPONSIBLE JAIL KEEPER. - We recommend that a responsible person stays with you overnight to take care of you. - You cannot stay in a hotel alone after outpatient surgery. You will not be permitted to have yoursurgery, if you do not have someone to take care of you. If you already have an Advance Directive, please fax a copy to [phone] or email to for it to be [...] your chart that day. documented in this encounterWright-Patterson Medical Center04-25-2023 Evaluation note* Encounter Date Diagnosis Assessment Notes Treatment Notes Treatment Clinical Notes Jan, Essential (primary) hypertension (ICD-10 - I10) Jan, Hyperlipidemia type II (ICD-10 - E78.01) [facility] Other 04-24-2023 Evaluation note* Encounter Date Diagnosis Assessment Notes Treatment Notes Treatment Clinical Notes Jan, Strain of right knee , initial encounter (ICD-10 - S86.911A) Ice, heat, elevate and brace IA injection? Prednisone? Jan, Swelling of right knee joint (ICD-10 - M25.461) Rest w/ intermittent ice Jan, Primary osteoarthritis of right knee (ICD-10 - M17.11) Quad exercises, ice/heat, Tylenol [facility] Other 04-17-2023 Evaluation note* Encounter Date Diagnosis [...] for postoperative hypoventilation w/ sedating pain medications. [facility] Other 04-12-2023 Hospital Discharge instructions Patient Education [...] fried and sweet foods. General instructions Take inmj-dlo-mrdxhmp and prescription medicines only as told by [...] 07/28/2010 Document Revised: 01/22/2020 Document Reviewed: 10/17/2018 Elsevier Patient Education 2019 Global Education Learning. Follow Up Care 11/08/2022 13:09:05 With:LUMA CASAS PA-C, URL Address: [address] [place] [address] When:3 months [facility] [place] 03-30-2023 Hospital Discharge instructions Patient Education [...] 09/17/2013 Document Revised: 05/21/2019 Document Reviewed: 05/21/2019 [employer] Patient Education 2020 Global Education Learning. Follow Up Care 11/08/2022 13:23:11 With:LUMA CASAS PA-C, URL Address: [address] [place] [address] When: Unknown [facility] [place] 03-16-2023 Hospital Discharge instructions Patient Education 12/28/2022 [...] (electrical nerve stimulation). For women, using a biomedical engineering professor to prevent urine leaks. This is a [...] right after experiencing incontinence. General instructions Take rrma-wen-kxcbplu and prescription medicines only as told by [...] 11/08/2005 Document Revised: 10/11/2018 Document Reviewed: 01/10/2018 [employer] Patient Education 2020 Global Education Learning. 12/28/2022 09:12:01 Overactive Bladder, Adult Overactive Bladder, [...] fried and sweet foods. General instructions Take ozue-mmx-bxxosit and prescription medicines only as told by [...] 07/28/2010 Document Revised: 01/22/2020 Document Reviewed: 10/17/2018 [employer] Patient Education 2020 Global Education Learning. Follow Up Care 11/08/2022 13:19:49 With:LUMA CASAS PA-C, URL Address: [address] [facility] [place] [address] When:1 week Comments:1 wk follow up PFPT #5 [facility] [place] 03-14-2023 History of Present illness Narrative* Donato Bishop MD - 12/26/2022 10:20 AM EDT HISTORY AND PHYSICAL [facility] Chief Complaint: inguinal hernia HPI: Yoni [...] (Radha Whitten) 1994 - Umbilical hernia @ [place] 2014 - Open left inguinal hernia @ [place] No history of Psychiatric Disorders or Opioid [...] Bishop MD 01/02/23, 5:14 PM General Surgery [facility] * Kate Funez RN - 12/26/2022 [...] Temperature: No Drains: No documented in this encounterWright-Patterson Medical Center03-02-2023 Hospital Discharge instructions Patient Education [...] 09/17/2013 Document Revised: 05/21/2019 Document Reviewed: 05/21/2019 [employer] Patient Education 2020 Global Education Learning. Follow Up Care 11/08/2022 13:16:38 With:YESSENIA ZHU, LUMA Roche, URL Address: [address] [facility] [address] When: Unknown [facility] [place] 02-28-2023 History of Present illness Narrative* G Raz Hernandez MD - 12/12/2022 1:01 PM EST Radiation Oncology - Follow Up Note PATIENT NAME: Yoni Ramirez PATIENT DIAGNOSIS: Prostate adenocarcinoma, initial PSA 7.4, biopsy Woodland score 4 + 3 = 7 (grade [...] ASSESSMENT/PLAN: Prostate adenocarcinoma, initial PSA 7.4, biopsy Woodland score 4 + 3 = 7 (grade [...] by: Aaliyah Hernandez MD cc: Bro Chavez ([facility]) [address] [place] [address] Dr. Whitten documented in this encounterWright-Patterson Medical Center02-22-2023 Nurse Note* Melanie Pierre RN [...] 2022 TIME: 9:07 AM documented in this encounterWright-Patterson Medical Center02-20-2023 Miscellaneous Notes* [facility] - ROSY Campoverde Tech - 12/04/2022 3:40 PM EST Radiology Service [...] Site disposition Discontinued SIGNED BY: Kelly Benavides nuclear officer December 04, 2022 4:33 PM documented in this encounterWright-Patterson Medical Center02-20-2023 Nurse Note* Sima Craig RN [...] 2022 TIME: 2:36 PM documented in this encounterWright-Patterson Medical Center02-16-2023 Hospital Discharge instructions Patient Education [...] 09/17/2013 Document Revised: 05/21/2019 Document Reviewed: 05/21/2019 [employer] Patient Education 2020 Global Education Learning. Follow Up Care 11/08/2022 13:07:14 With:LUMA ACSAS PA-C, ALANNA Address: [address] [place] [address] When: Unknown [facility] [place] 02-09-2023 Hospital Discharge instructions Patient Education [...] fried and sweet foods. General instructions Take ielh-qxd-jhtobhz and prescription medicines only as told by [...] 07/28/2010 Document Revised: 01/22/2020 Document Reviewed: 10/17/2018 [employer] Patient Education 2020 [employer] Follow Up Care 11/08/2022 13:06:21 With:LUMA CASAS PA-C, URL Address: [address] [place] [address] [phone] When: Unknown [facility] [place] 01-26-2023 Nurse Note* Debbie Martin RN - 11/09/2022 1:03 PM EST RUDI 5. Debbie Martin RN documented [facility] History of Present illness Narrative* G Raz Hernandez MD - 11/09/2022 1:00 PM EST [...] Aaliyah Hernandez MD cc: Bro Chavez (A[facility]) [facility] [place] [address] Dr. Whitten documented in this encounterW[facility]01-[facility] Hospital Discharge instructions Patient Education [...] (electrical nerve stimulation). For women, using a biomedical engineering professor to prevent urine leaks. This is a [...] right after experiencing incontinence. General instructions Take bbzv-eum-uzdnvwz and prescription medicines only as told by [...] 11/08/2005 Document Revised: 10/11/2018 Document Reviewed: 01/10/2018 [employer] Patient Education 2020 [employer]. 11/08/2022 12:05:35 Calorie Counting for Weight Loss [...] 10/01/2006 Document Revised: 06/20/2019 Document Reviewed: 08/31/2017 [employer] Patient Education 2020 [employer] Follow Up Care 10/04/2022 09:47:52 With:Fish WHARTON, ALANNA Hahn, URO Address: When: Unknown [facility] 12-21-2022 Hospital Discharge instructions Patient Education 10/04/2022 [...] veins. Follow these instructions at home: Take ggmi-gfp-gkpwwtp and prescription medicines only as told by [...] 01/07/2002 Document Revised: 12/19/2019 Document Reviewed: 12/19/2019 [employer] Patient Education 2019 [employer] Follow Up Care 03/28/2022 09:10:25 With:Fish WHARTON, ALANNA Hahn, URO Address: [address] [place] [phone] When: Unknown Comments:schedule scrotal US [facility] 09-29-2022 Nurse Note* Debbie Martin RN - 07/13/2022 1:22 PM EDT AUA 3 Debbie Martin RN documented in this encounterW[facility]09-29-[facility] History of Present illness Narrative* [...] ASSESSMENT/PLAN: Prostate adenocarcinoma, initial PSA 7.4, biopsy Woodland score 4 + 3 = 7 (grade [...] by: Aaliyah Hernandez MD cc: Bro Chavez ([facility]) [address] [place] [address] documented in this encounterW[facility]2022 History of Present illness Narrative* Aaliyah Hernandez MD - 03/30/2022 2:22 PM EDT Radiation Oncology - Follow Up Note PATIENT NAME: Yoni Ramirez PATIENT DIAGNOSIS: Prostate adenocarcinoma, initial PSA 7.4, biopsy Woodland score 4 + 3 = 7 (grade [...] ASSESSMENT/PLAN: Prostate adenocarcinoma, initial PSA 7.4, biopsy Woodland score 4 + 3 = 7 (grade [...] by: Aaliyah Hernandez MD cc: Bro Chavez ([facility]) [address] [place] [address] documented in this encounterWright-[facility]06-14-[facility]22 Hospital Discharge instructions Patient Education [...] including vitamins, herbs, eye drops, creams, and uqgo-rre-dyllels medicines. This also includes: ?Medicines to assist [...] 11/03/2005 Document Revised: 09/13/2018 Document Reviewed: 07/08/2018 [employer] Patient Education 2020 [employer]. Follow Up Care 09/27/2021 10:26:46 With:Tano Bernardo MD, Sushant Morel, URO Address: [facility] [address], [facility] [place] [address]- When:Within 6 Month(s) [facility] evaluation + Plan note Future Appointments Appointment Date:10/03/2022 08:00:00 AM Scheduled Provider:Sushant Freedman Jr., MD Location:[facility] Appointment Type:URO Office Visit [facility] evaluation + Plan note Future Appointments Appointment Date:01/03/2023 08:00:00 AM Scheduled Provider:Radha Whitten MD Location:[facility] Appointment Type:URO Office Visit [facility] evaluation + Plan note Future Appointments Appointment Date:11/23/2022 09:00:00 AM Scheduled Provider:LUMA CASAS PA-C Location:[facility] Appointment Type:URO Procedure 30 min Appointment Date:11/30/2022 09:00:00 AM Scheduled Provider:LUMA CASAS PA-C [facility] Appointment Type:URO Procedure 30 min Appointment Date:12/07/2022 10:30:00 AM Scheduled Provider:LUMA CASAS PA-C Location:[facility] Appointment Type:URO Procedure 30 min Appointment Date:12/14/2022 09:00:00 AM Scheduled Provider:LUMA CASAS PA-C Location:[facility] Appointment Type:URO Procedure 30 min Appointment Date:12/28/2022 09:00:00 AM Scheduled Provider:LUMA CASAS PA-C Location:[facility] Appointment Type:URO Procedure 30 min Appointment Date:01/11/2023 09:00:00 AM Scheduled Provider:LUMA CASAS PA-C [facility] Appointment Type:URO Procedure 30 min Appointment Date:01/17/2023 08:45:00 AM Scheduled Provider:Radha Whitten MD Location:[facility] Appointment Type:URO Office Visit [facility] evaluation + Plan note Future Appointments Appointment Date:11/30/2022 09:00:00 AM Scheduled Provider:LUMA CASAS PA-C [facility] Appointment Type:URO Procedure 30 min Appointment Date:12/07/2022 10:30:00 AM Scheduled Provider:LUMA CASAS PA-C Location:[facility] Appointment Type:URO Procedure 30 min Appointment Date:12/14/2022 09:00:00 AM Scheduled Provider:LUMA CASAS PA-C Location:[facility] Appointment Type:URO Procedure 30 min Appointment Date:12/28/2022 09:00:00 AM Scheduled Provider:LUMA CASAS PA-C Location:[facility] Appointment Type:URO Procedure 30 min Appointment Date:01/11/2023 09:00:00 AM Scheduled Provider:LUMA CASAS PA-C Location:[facility] Appointment Type:URO Procedure 30 min Appointment Date:01/17/2023 08:45:00 AM Scheduled Provider:[facility] MD [facility] Type:[facility]O Office Visit [facility] Evaluation + Plan note Future Appointments Appointment Date:12/07/2022 10:30:00 AM Scheduled Provider:LUMA CASAS PA-C Location:[facility] Appointment Type:URO Procedure 30 min Appointment Date:12/14/2022 09:00:00 AM Scheduled Provider:LUMA CASAS PA-C Location:[facility] Appointment Type:URO Procedure 30 min Appointment Date:12/28/2022 09:00:00 AM Scheduled Provider:LUMA CASAS PA-C Location:[facility] Appointment Type:URO Procedure 30 min Appointment Date:01/11/2023 09:00:00 AM Scheduled Provider:LUMA CASAS PA-C Location:[facility] Appointment Type:URO Procedure 30 min Appointment Date:01/17/2023 08:45:00 AM Scheduled Provider:Radha Whitten MD [facility] Type:[facility]O Office Visit [facility] Evaluation + Plan note Future Appointments Appointment Date:12/28/2022 09:00:00 AM Scheduled Provider:LUMA CASAS PA-C Location:[facility] Appointment Type:URO Procedure 30 min Appointment Date:01/11/2023 09:00:00 AM Scheduled Provider:LUMA CASAS PA-C [facility] Appointment Type:URO Procedure 30 min Appointment Date:01/24/2023 08:30:00 AM Scheduled Provider:LUMA CASAS PA-C Location:[facility] Appointment Type:URO Procedure 30 min Appointment Date:02/02/2023 09:00:00 AM Scheduled Provider:Radha Whitten MD [facility] Appointment Type:URO Office Visit [facility] Evaluation + Plan note Future Appointments Appointment Date:01/11/2023 09:00:00 AM Scheduled Provider:LUMA CASAS PA-C Location:[facility] Appointment Type:URO Procedure 30 min Appointment Date:01/24/2023 08:30:00 AM Scheduled Provider:LUMA CASAS PA-C Location:[facility] Appointment Type:URO Procedure 30 min Appointment Date:02/02/2023 09:00:00 AM Scheduled Provider:Radha Whitten MD Location:[facility] Appointment Type:URO Office Visit [facility] Evaluation + Plan note Future Appointments Appointment Date:01/24/2023 08:30:00 AM Scheduled Provider:LUMA CASAS PA-C Location:[facility] Appointment Type:URO Procedure 30 min Appointment Date:02/02/2023 09:00:00 AM Scheduled Provider:Radha Whitten MD Location:[facility] Appointment Type:URO Office Visit [facility] Evaluation + Plan note Future Appointments Appointment Date:11/28/2023 10:00:00 AM Scheduled Provider:Radha Whitten MD Location:[facility] Appointment Type:URO Office Visit [facility] evaluation + Plan note Future Appointments Appointment Date:06/04/2024 08:45:00 AM Scheduled Provider:Radha Whitten MD Location:[facility] Appointment Type:URO Office Visit [facility] evaluation + Plan note Future Appointments Appointment Date:12/10/2024 08:45:00 AM Scheduled Provider:Radha Whitten MD Location:[facility] Appointment Type:URO Office Visit [facility] evaluation + [facility]* Diagnosis Prostate cancer (HCC)- Primary Malignant neoplasm of prostate [facility]* Diagnosis Prostate cancer (HCC)- Primary Malignant neoplasm of prostate documented in this encounter [facility]* Diagnosis Prostate cancer (HCC)- Primary Malignant neoplasm of prostate Abdominal mass, left lower quadrant Abdominal or pelvic swelling, mass, or lump, left lower quadrant documented in this encounter [facility]* Diagnosis Prostate cancer (HCC) Malignant neoplasm of prostate Abdominal mass, left lower quadrant Abdominal or pelvic swelling, mass, or lump, left lower quadrant documented in this encounter [facility]* Diagnosis Malignant neoplasm of prostate (HCC)- Primary Malignant neoplasm of prostate documented in this encounter [facility]* Diagnosis Recurrent left inguinal hernia- Primary Inguinal hernia without mention of obstruction or gangrene, recurrent unilateral or unspecified Unilateral recurrent inguinal hernia without obstruction or gangrene Inguinal hernia without mention of obstruction or gangrene, recurrent unilateral or unspecified documented in this encounter [facility]* Diagnosis Obesity, Class I, BMI 30-34.9 [...] unilateral or unspecified documented [facility] noteNo Centeris CorporationMiami Bel[employer] Other Evaluation note* Diagnosis Malignant neoplasm of prostate (HCC)- Primary Malignant neoplasm of prostate documented in this encounter [facility] note* Diagnosis Malignant neoplasm of prostate (HCC)- Primary Malignant neoplasm of prostate documented in this encounter [facility]* Diagnosis Onset Date Resolution Status Amaurosis fugax, right eye a cute Hypercholesterolemia acute Hypertension acute MIHIR (obstructive sleep apnea) acute Prostate cancer acute [facility] Work Phone: Evaluation note* Diagnosis Ventral incisional hernia documented in this encounter [facility]* Diagnosis S/P repair of ventral hernia- Primary Other postprocedural status documented in this encounter [facility] note* Diagnosis Onset Date Resolution Status Anemia acute Hypercholesterolemia acute Hypertension acute MCI (mild cognitive impairment) acute Obesity acute MIHIR (obstructive sleep apnea) acute Prostate cancer acute [facility] Work Phone: Evaluation note* Diagnosis Malignant neoplasm of prostate (HCC)- Primary Malignant neoplasm of prostate documented in this encounter [facility] note* Diagnosis Onset Date Resolution Status Bradycardia acute Chest pain acute Hypercholesterolemia acute Hypertension acute MCI (mild cognitive impairment) acute Obesity acute MIHIR (obstructive sleep apnea) acute [facility] Work Phone: Evaluation note* Diagnosis Onset Date Resolution Status Bradycardia acute Chest pain acute Hypercholesterolemia acute Hypertension acute MCI (mild cognitive impairment) acute Obesity acute MIHIR (obstructive sleep apnea) acute Bradycardia acute Chest pain acute Hypercholesterolemia acute Hypertension acute [facility] Work Phone: Evaluation note* Diagnosis Abnormal nuclear stress test Chest pain, unspecified type Bradycardia Other specified cardiac dysrhythmias RBBB Primary hypertension Unspecified essential hypertension Pure hypercholesterolemia Obstructive sleep apnea syndrome Obstructive sleep apnea (adult) (pediatric) BMI 32.0-32.9,adult documented in this encounter [facility] Work Phone: Evaluation note* Diagnosis Onset [...] acut e PVC (premature ventricular contraction) acute [facility] Work Phone: Evaluation note* Diagnosis Abnormal nuclear stress test Chest pain, unspecified type Coronary artery disease involving [place] coronary artery of [place] heart with angina pectoris Primary hypertension Unspecified essential hypertension Pure hypercholesterolemia PVC (premature ventricular contraction) Other premature beats RBBB Obstructive sleep apnea syndrome Obstructive sleep apnea (adult) (pediatric) BMI 33.0-33.9,adult Edema, unspecified type documented in this encounter [facility] Work Phone: Evaluation note* Diagnosis Preop examination- Primary Preoperative examination, unspecified Primary hypertension Unspecified essential hypertension Prostate cancer (HCC) Malignant neoplasm of prostate Obesity, Class I, BMI 30-34.9 Obesity, unspecified Obstructive sleep apnea syndrome Obstructive sleep apnea (adult) (pediatric) Malignant neoplasm of prostate (HCC)- Primary Malignant neoplasm of prostate [facility]* Diagnosis Mild cognitive impairment- Primary Mild cognitive impairment, so stated MIHIR (obstructive sleep apnea) Obstructive sleep apnea (adult) (pediatric) PLMD (periodic limb movement disorder) Periodic limb movement disorder Hypersomnia Hypersomnia, unspecified documented in this encounter [facility] HealthcareHistory general Narrative - Reported* Type Description Date [...] History COLONOSCOPY Hospitalization History SEE SURGICAL HX [facility] Other [facility] general Narrative - Reported* Type Description Date [...] 03/03 23 Hospitalization History SEE SURGICAL HX [facility] Other [facility] general Narrative - Reported* Type Description Date [...] 03/03 23 Hospitalization History SEE SURGICAL HX [facility] Other Hospital course Narrative No data available for this section [facility] Hospital Discharge instructions Additional Instructions DISCHARGE INSTRUCTIONS FOR CARDIAC FIXTURE RELAMPER PROCEDURE: Heart Cath The following instructions have [...] cold, numb, blue or white, call the nurseryman assistant immediately. 4. ACTIVITY: You are advised to [...] bottle, follow the instructions on the bottle. [facility] is not responsible for incorrect prescription information provided by the patient during their visit. Do not stop your medications without consulting your health care provider. Please take the list with you to your next doctor's appointment.[facility] Work Phone: Progress note No data available for this section [facility] Reason for Referral Referred by: Fish WHARTON, Radha Tejada Specialty Diagnoses / Procedures Referred By Contac t Referred To Contact Diagnoses Chest pain, unspecified type Procedures ECG 12 Lead Don Joseph DO [address] [place] [address] [address], [address] [address] Referral ID Status Reason Start Date Expiration Date V isits Requested Visits Authorized [id number] Authorized 07/22/2024 07/22/2025 1 1 Specialty Diagnoses / Procedures Referred By Contac t Referred To Contact Cardiology Diagnoses Abnormal nuclear stress test Chest pain, unspecified type Procedures Follow Up In Cardiology Don Joseph DO [address] [facility] 2, [address] [address] [facility], [address] [address] Referral ID Status Reason Start Date Expiration Date V isits Requested Visits Authorized [id number] Authorized 07/22/2024 07/22/2025 1 1 Specialty Diagnoses / Procedures Referred By Contac t Referred To Contact MR IMAGING Diagnoses Prostate cancer (HCC) Abdominal mass, left lower quadrant Procedures MRI PELVIS WO/W IVCON MRI PELVIS W/O & W/CONTRAST MATERIAL Aaliyah Hernandez MD [address] [place] [address] [place] [address] Mr Imaging Referral ID Status Reason Start Date Expiration Date Visits Requested Visits Authorized [id number] Authorized Auto-Generat ed Referral 11/09/2022 12/09/2023 1 1 Summary Purpose Family History Relationship Condition Age at Onset Recorded Date/T mando father Malignant neoplasm of lung Unknown mother Malignant neoplasm of lung Unknown brother due to motor v ehicle traffic accident Unknown Advance Directives Advance Directive Response Recorded Date/ [...] Hypercholesterolemia Hypertension MCI (mild cognitive impairment) Obesity MIIHR (obstructive sleep apnea) Chief Complaint Amb Documentation [...] 2024 Team Status: Active Member Role Status Mo Chavez DO Primary Care Provide r, Attending Provider Active Start: October 21, 2024 Team Status: Inactive Member Role Status Mo Chavez DO Primary Care Provide r, Attending Provider Active Start: October 27, 2024 End: October 27, 2024 Team Status: Active Member Role Status Mo Chavez DO Primary Care Provider Active Start: May 13, 2024 Edward Hernandez MD Attending Provider Active Start: May 13, 2024 Team Status: Active Member Role Status Mo Chavez DO Primary Care Provide r, Attending Provider Active Start: June 27, 2024 Team Status: Active Member Role Status Mo Chavez DO Primary Care Provider Active Start: June 28, 2024 Veronica Castaneda Attending Provider Active Start: 2023 Team Status: Active Member Role Status Mo Chavez DO Primary Care Provider Active Start: July 01, 2024 SANDRA Fortune Attending Provider Active St art: July 01, 2024 Team Status: Inactive Member Role Status Mo Chavez DO Primary Care Provide r, Attending Provider Active Start: July 02, 2024 End: July 02, 2024 Team Status: Active Member Role Status Mo Chavez DO Primary Care Provider Active Start: July 14, 2024 Patti Dasilva PA-C Attending Provider Active Start: July 14, 2024 Team Status: Active Member Role Status Mo Chavez DO Primary Care Provider Active Start: July 15, 2024 Brian Castano MD Attending Provider Active St art: July 15, 2024 Team Status: Inactive Member Role Status Mo Chavez DO Primary Care Provide r, Attending Provider Active Start: July 18, 2024 End: July 18, 2024 Team Status: Inactive Member Role Status Mo Chavez DO Primary Care Provide r, Attending Provider Active Start: April 09, 2024 End: April 09, 2024 Accounts Supervisor Relationship Specialty Start Date End Date Bro Chavez DO [address] [place] [address] PCP - General Internal Medicine 05/10/21 Accounts Supervisor Relationship Specialty Start Date End Date Bro Chavez, DO [address] [place] [address] PCP - General Internal Medicine 05/10/21 Accounts Supervisor Relationship Specialty Start Date End Date Bro Chavez, DO [address] [place] [address] PCP - General Internal Medicine 05/10/21 Accounts Supervisor Relationship Specialty Start Date End Date Bro Chavez, DO [address] [place] [address] PCP - General Internal Medicine 05/10/21 Accounts Supervisor Relationship Specialty Start Date End Date Bro Chavez, DO [address] [place] [address] PCP - General Internal Medicine 05/10/21 Accounts Supervisor Relationship Specialty Start Date End Date Bro Chavez, DO [address] [place] [address] PCP - General Internal Medicine 05/10/21 Accounts Supervisor Relationship Specialty Start Date End Date Bro Chavez, DO [address] [place] [address] PCP - General Internal Medicine 05/10/21 Accounts Supervisor Relationship Specialty Start Date End Date Bro Chavez, DO [address] [place] [address] PCP - General Internal Medicine 05/10/21 Radha Whitten MD [address] [place] [address] Urology 12/21/22 Accounts Supervisor Relationship Specialty Start Date End Date Bro Chavez, DO [address] [place] [address] PCP - General Internal Medicine 05/10/21 Radha Whitten MD [address] [place] [address] Urology 12/21/22 Accounts Supervisor Relationship Specialty Start Date End Date Kathy Bro Melchor, DO [address] [place] [address] PCP - General Internal Medicine 05/10/21 Radha Whitten MD [address] [place] [address] Urology 12/21/22 Accounts Supervisor Relationship Specialty Start Date End Date KathyBroDO [address] [place] [address] PCP - General Internal Medicine 05/10/21 Radha Whitten MD [address] [place] [address] Urology 12/21/22 Accounts Supervisor Relationship Specialty Start Date End Date KathyBroDO [address] [place] [address] PCP - General Internal Medicine 05/10/21 Radha Whitten MD [address] [place] [address] Urology 12/21/22 Team Status: Active Member Role [...] February 12, 2024 End: February 12, 2024 Accounts Supervisor Relationship Specialty Start Date End Date Bro Chavez DO [address] [place] [address] PCP - General Internal Medicine 05/10/21 Radha Whitten MD [address] [place] [address] Urology 12/21/22 Accounts Supervisor Relationship Specialty [place] [address] [place] [address] PCP - General Internal Medicine 05/10/21 Radha Whitten MD [address] [place] [address] Urology 12/21/22 Accounts Supervisor Relationship Specialty [place] [address] [place] [address] PCP - General Internal Medicine 05/10/21 Radha Whitten MD [address] [place] [address] Urology 12/21/22 Accounts Supervisor Relationship Specialty [place] [address] [place] [address] PCP - General Internal Medicine 05/10/21 Radha Whitten MD [address] [place] [address] Urology 12/21/22 Accounts Supervisor Relationship Specialty Start Date End Date Bro Chavez DO [address] [place] [address] PCP - General Internal Medicine 07/22/24 Team Status: Inactive Member Role Status Dates Bro Chavez DO Primary Care Provider Active Start: July 23, 2024 End: July 23, 2024 W Norberto Joseph DO Attending Provider Active S tart: July 23, 2024 End: July 23, 2024 Team Status: Inactive Member Role Status Dates Bro Chavez DO Primary Care Provider Active Start: July 24, 2024 End: July 24, 2024 W Norberto Joseph DO Attending Provider Active S tart: July 24, 2024 End: July 24, 2024 Accounts Supervisor Relationship Specialty Start Date End Date Bro Chavez DO [address] [place] [address] PCP - General Internal Medicine 07/22/24 Accounts Supervisor Relationship Specialty Start Date End Date Bro Chavez DO [address] [facility] [place] [address] PCP - General Internal Medicine 05/10/21 Radha Whitten MD [address] [place] [address] Urology 12/21/22 Accounts Supervisor Relationship Specialty Start Date End Date Bro Chavez MD [address] [place] [address] Referring Physician Internal Medicine 12/18/24 Maxine Delgado DO [address] [place] [address] Referring Physician Neurology 12/18/24 Accounts Supervisor Relationship Specialty Start Date End Date Bro Chavez MD [address] [place] [address] Referring Physician Internal Medicine 12/18/24 Maxine Delgado DO [address] [place] [address] Referring Physician Neurology 12/18/24 Source Comments (unrecognize d section and content) In the event this informatio n is protected by the Federal Confidentiality of Alcohol and Drug Abuse Patient Records regulations: The Federal rules restrict any use of the information to criminally investigate or prosecute any alcohol or drug abuse patient.[facility] the event this information is protected by the Federal Confidentiality of Alcohol and Drug Abuse Patient Records regulations: The Federal rules restrict any use of the information to criminally investigate or prosecute any alcohol or drug abuse patient.[facility] Center[facility] the event this information is protected by the Federal Confidentiality of Alcohol and Drug Abuse Patient Records regulations: The Federal rules restrict any use of the information to criminally investigate or prosecute any alcohol or drug abuse patient.[facility] Center[facility] the event this information is protected by the Federal Confidentiality of Alcohol and Drug Abuse Patient Records regulations: The Federal rules restrict any use of the information to criminally investigate or prosecute any alcohol or drug abuse patient.[facility] CenterIn the event this information is protected by the Federal Confidentiality of Alcohol and Drug Abuse Patient Records regulations: The Federal rules restrict any use of the information to criminally investigate or prosecute any alcohol or drug abuse patient.[facility] CenterIn the event this information is protected by the Federal Confidentiality of Alcohol and Drug Abuse Patient Records regulations: The Federal rules restrict any use of the information to criminally investigate or prosecute any alcohol or drug abuse patient.[facility] CenterIn the event this information is protected by the Federal Confidentiality of Alcohol and Drug Abuse Patient Records regulations: The Federal rules restrict any use of the information to criminally investigate or prosecute any alcohol or drug abuse patient.[facility] CenterIn the event this information is protected by the Federal Confidentiality of Alcohol and Drug Abuse Patient Records regulations: The Federal rules restrict any use of the information to criminally investigate or prosecute any alcohol or drug abuse patient.[facility] CenterIn the event this information is protected by the Federal Confidentiality of Alcohol and Drug Abuse Patient Records regulations: The Federal rules restrict any use of the information to criminally investigate or prosecute any alcohol or drug abuse patient.[facility] CenterIn the event this information is protected by the Federal Confidentiality of Alcohol and Drug Abuse Patient Records regulations: The Federal rules restrict any use of the information to criminally investigate or prosecute any alcohol or drug abuse patient.[facility] CenterIn the event this information is protected by the Federal Confidentiality of Alcohol and Drug Abuse Patient Records regulations: The Federal rules restrict any use of the information to criminally investigate or prosecute any alcohol or drug abuse patient.[facility] CenterIn the event this information is protected by the Federal Confidentiality of Alcohol and Drug Abuse Patient Records regulations: The Federal rules restrict any use of the information to criminally investigate or prosecute any alcohol or drug abuse patient.[facility] CenterIn the event this information is protected by the Federal Confidentiality of Alcohol and Drug Abuse Patient Records regulations: The Federal rules restrict any use of the information to criminally investigate or prosecute any alcohol or drug abuse patient.[facility] CenterIn the event this information is protected by the Federal Confidentiality of Alcohol and Drug Abuse Patient Records regulations: The Federal rules restrict any use of the information to criminally investigate or prosecute any alcohol or drug abuse patient.[facility] CenterIn the event this information is protected by the Federal Confidentiality of Alcohol and Drug Abuse Patient Records regulations: The Federal rules restrict any use of the information to criminally investigate or prosecute any alcohol or drug abuse patient.[facility] CenterIn the event this information is protected by the Federal Confidentiality of Alcohol and Drug Abuse Patient Records regulations: The Federal rules restrict any use of the information to criminally investigate or prosecute any alcohol or drug abuse patient.[facility] CenterIn the event this information is protected by the Federal Confidentiality of Alcohol and Drug Abuse Patient Records regulations: The Federal rules restrict any use of the information to criminally investigate or prosecute any alcohol or drug abuse patient.[facility] CenterIn the event this information is protected by the Federal Confidentiality of Alcohol and Drug Abuse Patient Records regulations: The Federal rules restrict any use of the information to criminally investigate or prosecute any alcohol or drug abuse patient.[facility] Reason for Visit (unrecogniz ed section and content) Reason Comments Prostate Cancer Reason Comments Prostate Cancer Specialty Diagnoses / Procedures Referred By Contac t Referred To Contact MR IMAGING Diagnoses Prostate cancer (HCC) Abdominal mass, left lower quadrant Procedures MRI PELVIS WO/W IVCON MRI PELVIS W/O & W/CONTRAST MATERIAL Aaliyah Hernandez MD [address] [place] [address] [place] [address] Mr Imaging Referral ID Status Reason Start Date Expiration Date V isits Requested Visits Authorized [id number] Closed Auto-Generate d Referral 11/09/2022 12/09/2023 1 1 Reason Comments New Reason Comments Pre-Op Visit Reason Comments Radiology CT Specialty Diagnoses / Procedures Referred By Contac t Referred To Contact CT IMAGING Diagnoses Ventral incisional hernia Procedures CT ABD/PEL WO IVCON CT ABD & PELVIS [place] [address] [place] [address] [place] [address] Referral ID Status Reason Start Date Expiration Date V isits Requested Visits Authorized [id number] Closed Auto-Generate d Referral 02/27/2024 04/18/2024 1 1 Reason Comments Follow Up 1 year Reason Comments New Patient Visit [place] [facility]-chest pa in Reason Comments Follow-up 3 month Post-Cath Specialty Diagnoses / Procedures Referred By Contac t Referred To Contact Cardiology Diagnoses Abnormal nuclear stress test Chest pain, unspecified type Procedures Follow Up In Cardiology Don Joseph, [address] [address] Phone: tel: fax: Don Joseph, [place] [address], [address] [address] Phone: tel: fax: Referral ID Status Reason Start Date Expiration Date V isits Requested Visits Authorized [id number] Authorized 07/22/2024 07/22/2025 1 1 Reason Comments Memory Loss Sleep Apnea Specialty Diagnoses / Procedures Referred By Contac t Referred To Contact Neurology Diagnoses Mild cognitive impairment of uncertain or unknown etiology Procedures [place] OFFICE/OUTPATIENT NEW LOW MDM 30 MINUTES Bro Chavez MD [address] [place] [address] Phone: tel: fax: Brianna AndicynthiaDO [address] [place] [address] Phone: tel: fax: Referral ID Status Reason Start Date Expiration Date V isits Requested Visits Authorized [id number] Closed Consult and Treat 11/25/2024 05/24/2025 1 1 (unrecognized sect ion and content) No Status Records FoundNo Status Records FoundNo Status Records FoundNo Status Records FoundNo Status Records FoundNo Status Records FoundNo Status Records Found INFORMATION SOURCE (unrecogn ized section and content) DATE CREATED AUTHOR 02/25/2023 [facility] DATE CREATED AUTHOR AUTHOR'S ORGANIZ ATION 02/28/2023 [facility] DATE CREATED AUTHOR AUTHOR'S ORGANIZ ATION 03/24/2024 [facility] EPIC DATE CREATED AUTHOR AUTHOR'S ORGANIZ ATION 08/06/2024 [facility] DATE CREATED AUTHOR AUTHOR'S ORGANIZ ATION 11/01/2024 [facility] DATE CREATED AUTHOR AUTHOR'S ORGANIZ ATION 12/12/2024 [facility] DATE CREATED AUTHOR AUTHOR'S ORGANIZ ATION 12/13/2024 [facility] Goals (unrecognized section and content) Goals [...] BE BASED ON THE PRIMARY CLINICAL RECORDS. [employer] provides no warranty or guarantee of the accuracy or completeness of information in this document.
[2024-12-19 09:29] LABS: Thyroid Stimulating Hormone 2.019 uIU/mL (0.358-3.740)
== END 2024-12-19 08:06 | disposition home or self-care (01) ==
LOC: LAB 08:08
PROVIDERS: PCP Internal Medicine; Visit Provider Psychiatry & Neurology Neurology
DX: G31.84 Mild cognitive impairment of uncertain or unknown etiology (principal)
CPT/HCPCS: 36415; 82746; 84443

== ENCOUNTER 2025-04-03 06:59 | Outpatient (RCR) | payer MEDICARE, OTHER, SELFPAY ==
--- NOTE | 2024-10-22 08:50 | CR1_ITS ---
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
--- NOTE | 2024-11-21 15:12 | CR1_ITS ---
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
--- NOTE | 2024-12-22 08:03 | CR1_ITS ---
[facility] Test Date: 2024-12-22 Pat Name: YONI RAMIREZ Department: Room: - Gender: Male Game Protector: : 1945 Requested By: NURA CHAVEZ Order Number: [id number] Reading MD: NURA CHAVEZ Interpretive Statements Session Date: Electronically Signed On 12-25-2024 22:37:27 EDT by NURA CHAVEZ
--- NOTE | 2025-01-14 07:13 | CR1_ITS ---
[facility] Test Date: 2025-01-21 Pat Name: YONI RAMIREZ Department: Room: - Gender: Male Consultant Electronics: : 1945 Requested By: NURA CHAVEZ Order Number: [id number] Reading MD: NURA CHAVEZ Interpretive Statements Session Date: Electronically Signed On 01-25-2025 19:58:59 EDT by NURA CHAVEZ
--- NOTE | 2025-02-18 07:43 | CR1_ITS ---
[facility] Test Date: 2025-02-18 Pat Name: YONI RAMIREZ Department: Room: - Gender: Male Directory Assistance Operator: : 1945 Requested By: Hilario Herrmann Order Number: [id number] Yessica MD: Hilario Herrmann Interpretive Statements Strongly recommend the patient re-commit to cardiac rehabilitation, especially with his history of CHF. Electronically Signed On 02-23-2025 7:50:58 EDT by Hilario Herrmann
--- NOTE | 2025-03-19 07:54 | CR1_ITS ---
[facility] Test Date: 2025-03-19 Pat Name: YONI RAMIREZ Department: Room: - Gender: Male Fitter Helper: : 1945 Requested By: NURA CHAVEZ Order Number: [id number] Reading MD: Hilario Herrmann Interpretive Statements Though it can be difficult to attend rehab due to other priorities in life, taking care of oneself is important. The patient is encouraged to continue participating in cardiac rehabilitation. Electronically Signed On 03-19-2025 10:43:25 EDT by Hilario Herrmann
--- NOTE | 2025-04-14 09:30 | PC.NURSE ---
letter sent to out reach patient. he has 10 visits that will time out per insurance on 05-17-25. patient has been inconsistency coming, provider aware
--- NOTE | 2025-04-16 08:27 | CR1_ITS ---
[facility] Test Date: 2025-04-16 Pat Name: YONI RAMIREZ Department: Room: - Gender: Male Community Services Manager: : 1945 Requested By: Hilario Herrmann Order Number: [id number] Reading MD: Hilario Herrmann Interpretive Statements Patient has sporadic attendance according to past notes and appears disinterested in completing the program. Perhaps his conservation of resources commissioner could impress upon the patient the importance of completing the cardiac rehabilitation program? Electronically Signed On 04-22-2025 10:07:53 EDT by Hilario Herrmann
== END 2025-05-14 08:43 | disposition home or self-care (01) ==
LOC: CR 06:59
PROVIDERS: PCP Internal Medicine; Visit Provider Internal Medicine
DX: I25.10 Atherosclerotic heart disease of native coronary artery without angina pectoris (principal); I50.9 Heart failure, unspecified; I11.0 Hypertensive heart disease with heart failure
CPT/HCPCS: 93798